=== PATIENT | female | born 1980 | race Caucasian/White ===

== ENCOUNTER 2022-03-23 16:20 | Emergency (ER) | payer OTHER, SELFPAY ==
[2022-03-23 16:29] VITALS: BP 125/88; PULSE 103; RESP 18; TEMP 36.6; O2SAT 98; BMI 29.1
--- NOTE | 2022-03-23 16:50 | ED.GENADULT ---
HPI - General Adult General Chief complaint: Nausea/Vomiting Stated complaint: Vomiting for 24 hours,Severe Headache Time Seen by Provider: 03/23/22 16:22 History of Present Illness HPI narrative: This 42-year-old female comes in with vomiting and headache symptoms that began about a day ago. She states that she has an occasional headache. She is not sure if the vomiting cause the headache or vice versa. She denies having any fevers or diarrhea. She is otherwise in good health. Related Data Home Medications Medication Instructions Recorded Confirmed fluoxetine 20 mg capsule 20 - 40 mg PO QDAY 11/06/21 02/21/22 levothyroxine 50 mcg capsule 50 mcg PO QDAY 11/06/21 02/21/22 Previous Rx's Medication Instructions Recorded ketoconazole 2 % topical cream 1 applic topical BID #60 grams 02/21/22 spironolactone 50 mg tablet 50 mg PO BID #60 tabs 02/21/22 Allergies Allergy/AdvReac Type Severity Reaction Status Date / Time zolpidem Allergy Mild Makes her Verified 02/21/22 11:59 porfirio Review of Systems Status of ROS: Reports: 10 or more systems reviewed and unremarkable except as noted in History and below Narrative: Constitutional: No fevers, no weight gain or loss. Eyes: No discharge. No vision changes. HENT: No congestion, no sore throat, no ear pain. Cardiovascular: No chest pain, no palpitations. Respiratory: No shortness of breath, no wheezes, no cough. Gastrointestinal: No abdominal pain, no diarrhea. Nausea and vomiting. Genitourinary: No dysuria, no hematuria. Musculoskeletal: Normal range of motion. Skin: No rashes, no pruritis. Neurological: No dizziness, weakness, sensory change, speech change. Endo/Heme/Allergies: No bruising or bleeding. No polydipsia. Pysch: no suicidality, no anxiety, no insomnia. All other systems reviewed and are negative. [facility] Medical History (Updated 03/23/22 @ 19:07 by Jayden Jameson MD) Onychomycosis Tick bite Social History Smoking Status: Never smoker Exam Narrative: Exam Narrative: Constitutional: Well-developed, well-nourished. HEENT: Normocephalic, atraumatic. Neck: Normal range of motion. Nontender. Supple. Heart: Regular. No murmurs. Normal rate. Intact distal pulses. Lungs: Clear to auscultation. No chest discomfort. No wheezes, rhonchi, or rales. Abdomen: Normal bowel sounds. Nontender. No rebound tenderness. Genitalia: Deferred. Back: No midline tenderness. Normal range of motion. Extremities: Normal range of motion. No injury. Skin: Intact. No rash. Warm. No erythema or pallor. Neurologic: No altered sensation. No weakness. Alert and oriented. Psychiatric: No suicidality. No anxiety or depression. No insomnia. Nursing notes and vitals signs are reviewed. Const: Vital Signs, click to edit/add: Vital Signs - 24 hr 03/23/22 16:29 03/23/22 18:38 Temperature 97.8 F Pulse Rate [Right Pulse Oximeter] 103 H 97 Respiratory Rate 18 18 Blood Pressure [Ri ght Upper Arm] 125/88 126/82 Pulse Oximetry 98 97 Oxygen Delivery Me thod Room Air Course Vital Signs Vital signs: Initial Vital Signs Temperature 97.8 F 03/23/22 16:29 Temperature Source Temporal Artery Scan 03/23/22 16:29 Pulse Rate 103 H 03/23/22 16:29 Respiratory Rate 18 03/23/22 16:29 Blood Pressure 125/88 03/23/22 16:29 Blood Pressure Mean 100 03/23/22 16:29 Blood Pressure Position Sitting 03/23/22 16:29 Pulse Oximetry 98 03/23/22 16:29 Oxygen Delivery Method 03/23/22 16:29 Vital Signs Temperature 97.8 F 03/23/22 16:29 Pulse Rate 103 H 03/23/22 16:29 Respiratory Rate 18 03/23/22 16:29 Blood Pressure 125/88 03/23/22 16:29 Pulse Oximetry 98 03/23/22 16:29 Oxygen Delivery Method 03/23/22 16:29 Temperature 97.8 F 03/23/22 16:29 Pulse Rate 97 03/23/22 18:38 Respiratory Rate 18 03/23/22 18:38 Blood Pressure 126/82 03/23/22 18:38 Pulse Oximetry 97 03/23/22 18:38 Oxygen Delivery Method 03/23/22 16:29 Medical Decision Making MDM Narrative Medical decision making narrative: This patient comes in with headache, nausea, and vomiting. An IV was established where she received a L of normal saline along with Zofran 4 mg, Benadryl 50 mg, and Toradol 30 mg. This brought sufficient relief to her nausea but she continued to have significant headache. She then received ketamine 20 mg infused over 20-30 minutes. This brought better relief of her headache. She feels okay to return home. Prescriptions for Toradol and Zofran are provided. Discharge Plan Discharge Clinical Impression: Migraine Patient Disposition: Home, Self-Care Condition: Improved Additional Instructions: Take medication as prescribed and needed. Follow up with MD or return if worsening. Prescriptions: No Action levothyroxine 50 mcg capsule 50 mcg PO QDAY spironolactone 50 mg tablet 50 mg PO BID Qty: 60 9RF ketoconazole 2 % cream 1 applic topical BID Qty: 60 2RF fluoxetine 20 mg capsule 20 - 40 mg PO QDAY Label Comments: not taking Follow Up/Referrals: Medardo Graf MD [Primary Care Provider] - Stand Alone Forms: [employer] Info Instructions
[2022-03-23] MEDS: ONDANSETRON 2 MG/ML inj 4 MG IVP (17:07)
[2022-03-23] MEDS: diphenhydrAMINE 50 MG/ML inj IVP (17:08)
[2022-03-23] MEDS: 0.9 % SODIUM CHLORIDE 1000 ml 1,000 ML IV (17:14)
--- OUTSIDE RECORDS SUMMARY | 2022-03-23 17:24 | XMS_ITS | Encounter Summary ---
:1980 Author Organization [facility] Address [address] [place] [address] Care Team Providers Name Role Phone Medardo Graf Primary Care Provider Noelle Khan MD Unavailable [phone] Umu Duke MD Unavailable Umu Duke MD Unavailable Encounter Details Date Type Department Care Team Description 06/02/2021 Travel Social History Tobacco Use Types Packs/Day Years Used Date Smoking Tobacco: Never Smokeless Tobacco: Never Alcohol Use Standard Drinks/Week Comments Yes 0 (1 standard drink = 0.6 oz pure alcoho l) 2 week Alcohol Habits Answer Date Recorded How often do you have a drink containing alcohol? 2-4 times a month 04/21/2019 How many drinks containing alcohol do you have on a 1 or 2 04/21/2019 typical day when you are drinking? How often do you have six or more drinks on one Not asked occasion? Sex Assigned at Date Recorded Not on file COVID-19 Exposure Response Date Recorded In the last month, have you been in contact with No / Unsure 06/02/2021 9:04 AM RECEIVING AND PROCESSING SUPERVISOR someone who was confirmed or suspected to have Coronavirus / COVID-19? documented as of this encounter Plan of Treatment Not on filedocumented as of this encounter Visit Diagnoses Not on filedocumented in this encounter Additional Health Concerns Assessment Noted Time PHQ-9 Depression Total Score: 2 06/01/2020 1:03 PM RECEIVING AND PROCESSING SUPERVISOR documented as of this encounter Care Teams Monument Setter Relationship Specialty Start Date End Date HomarMedardo PCP - General Family Practice 11/15/18 [facility] [address] [place] [address] Noelle Khan Assigned Pulmonology 02/04/20 MD Yumiko Provider [facility] [address] [place], [place] [address] Umu Duke MD MD ticket attendant 03/16/[address] [place], [place] [address] Umu Duke MD Assigned OBGYN Provider 06/04/20 02/01/[address] [place], [place] [phone] documented as of this encounter
--- OUTSIDE RECORDS SUMMARY | 2022-03-23 17:24 | XMS_ITS | Clinical Summary ---
:1980 Author Organization [facility] Address [address] [place] [address] Care Team Providers Name Role Phone Medardo Graf Primary Care Provider Umu Duke MD Unavailable Allergies Active Allergy Reactions Severity Noted Date Comments Zolpidem Tartrate 04/17/2011 blacks ou t but doesn't fall asleep Medications Medication Sig Dispensed Refills Start Date End Date Status valACYclovir (VALTREX) 0 12/29/2017 Active 500 MG tablet levothyroxine 50 mcg daily 0 04/09/2019 Ac tive (SYNTHROID/LEVOTHROID) 50 MCG tablet norgestrel-ethinyl Take 1 tablet by 0 03/15/2020 Active estradiol (LO/OVRAL) mouth 0.3-30 MG-MCG tablet Active Problems Problem Noted Date Submucous leiomyoma of uterus 06/15/2020 Overview: Added automatically from request for hector acosta [id number] Vaginal delivery 04/28/2012 Labor and delivery, indication for care 04/25/2012 Uterine contractions or other obstetric complaints Head ache 11/04/2011 Immunizations Name Administration Dates Next Due Influenza (intradermal) 11/21/2017 Td (Adult), Adsorbed 04/12/2004 Family History Medical History Relation Comments Lung Cancer Cousin Heart Disease Father Leukemia Maternal Aunt Relation Status Comments Cousin Father Alive Maternal Aunt Mother Alive Social History Tobacco Use Types Packs/Day Years [...] Assigned at Date Recorded Not on file Last Filed Vital Signs Vital Sign Reading Time Taken Comments Blood Pressure 128/80 11/05/2021 11:50 AM CDT Pulse 64 11/05/2021 11:50 AM CDT Temperature 36.8 ??C (98.3 ??F) 11/05/2021 11:50 AM CDT Respiratory Rate 16 11/05/2021 11:50 AM CDT Oxygen Saturation 99% 11/05/2021 11:50 AM CDT Inhaled Oxygen Concentration - - Weight 85.9 kg (189 lb 6.4 oz) 11/05/2021 11:50 AM CDT Height 165.1 cm (5' 5) 02/28/2021 2:12 PM [employer] Body Mass Index 31.52 02/28/2021 2:12 PM [employer] Plan of Treatment Health Maintenance Due Date Last Done Comments ADVANCE CARE PLANNING 1980 ANNUAL REVIEW OF HM ORDERS 1980 HEPATITIS C SCREENING 1996 COVID-19 Vaccine (3 - 07/27/2020 06/01/2020, 05/07/2020 Booster for Moderna series) YEARLY PREVENTIVE VISIT 02/28/2021 02/29/2020, 02/29/2020 PHQ-2 (once per calendar 04/14/2021 06/01/2020, 06/01/2020, year) 05/12/2020, Additional history exists INFLUENZA VACCINE (#1) 2021 01/22/2021, 01/22/2021, 12/27/2019, Additional history exists PAP 02/28/2023 02/29/2020 DTAP/TDAP/TD IMMUNIZATION 03/26/2030 03/26/2020, 03/03/2010 , (5 - Td or Tdap) 10/02/2008, Additional history exists HEPATITIS B IMMUNIZATION Completed 10/02/2008, 02/09/2008, 01/01/2008 HIV SCREENING Completed 09/23/2011 MENINGITIS IMMUNIZATION Aged Out 03/26/2020, 03/25/2015, No longer eligible 03/03/2010, Additional based on patient's age history exists to complete this topic IPV IMMUNIZATION Aged Out No longer eligi ble based on patient 's age to complete this topic Pneumococcal Vaccine: Aged Out No longer eligible Pediatrics (0 to 5 Years) based on patient's age and At-Risk Patients (6 to to co mplete this topic 64 Years) Insurance Payer Benefit Plan / Subscriber ID Effective Phone Address T ype Group Dates [facility] [id number] 2021-Pres [phone] [address] O OPEN ACCESS ent [address] [place] [address] Care Teams Loan Services Professional Relationship Specialty Start Date End Date Medardo Graf PCP - General Family Practice 11/15/18 [facility] [place] [facility] [address] [place] [address] Umu Duke MD MD director report 03/16/[address] [place] [address] [address] [place] [address]
--- OUTSIDE RECORDS SUMMARY | 2022-03-23 17:24 | XMS_ITS | Encounter Summary ---
:1980 Author Organization [facility] Address [facility] [place] [address] Care Team Providers Name Role Phone Medardo Graf Primary Care Provider Noelle Khan MD Unavailable [phone] Umu Duke MD Unavailable Umu Duke MD Unavailable Reason for Visit Reason Comments Wound Infection Left arm Encounter Details Date Type Department Care Team Description 11/05/2021 Office Visit [facility] Adelaida Leonard Local in fection of Urgent Care Agustina owens PA-C wound (Primary Dx) [address] [place] [place] [facility] [phone] [facility] [phone] [place] [address] Social History Tobacco Use Types Packs/Day Years [...] Exposure Response Date Recorded In the last 10 days, have you been in contact with No / Unsu re 11/05/2021 11:39 AM CDT someone who was confirmed or suspected to have Coronavirus/COVID-19? documented as of this encounter Last Filed Vital Signs Vital Sign Reading Time Taken Comments Blood Pressure 128/80 11/05/2021 11:50 AM CDT Pulse 64 11/05/2021 11:50 AM CDT Temperature 36.8 ??C (98.3 ??F) 11/05/2021 11:50 AM CDT Respiratory Rate 16 11/05/2021 11:50 AM CDT Oxygen Saturation 99% 11/05/2021 11:50 AM CDT Inhaled Oxygen Concentration - - Weight 85.9 kg (189 lb 6.4 oz) 11/05/2021 11:50 AM CDT Height - - Body Mass Index 31.52 02/28/2021 2:[address] documented in this encounter Patient Instructions Patient InstructionsAlAdelaida lakhani PA-C - 11/05/2021 11:45 AM CDT Patient was educated on the natural course of injury. Keep wound dry and clean. Wash area with soap and water. Watch for signs of infection such as redness or purulent drainage. Conservative measures discussed including [id number] Tylenol as needed for pain. See your primary care provider in 5 days if there is no improvement or sooner as needed. Seek emergency care if you develop fever, streaking, severe pain or rapidly spreading redness. documented in this encounter Progress Notes Adelaida Leonard PA-C - 11/05/2021 11:45 AM CDT Images from the original note were not included. URGENT CARE VISIT: SUBJECTIVE: Chief Complaint Patient presents with ??? Wound Infection Left arm Lacey Nolasco is a 41 year old female who presents with a chief complaint of left arm cut. Symptoms began 4 day(s) ago, are moderate and worsening She cut it with a water pressure hose. It is now getting red and painful. Pain exacerbated by movement. Relieved by rest. She treated it initially with soap and water. This is the first time this type of injury has occurred to this patient. PMH: Past Medical History: Diagnosis Date ??? Complication of anesthesia severe nausea ??? Endometriosis ??? Hx of previous reproductive problem used clomid with ??? Hypothyroidism ??? PONV (postoperative nausea and vomiting) Allergies: Ambien [zolpidem tartrate] Medications: Current Outpatient Medications Medication Sig Dispense Refill ??? cephALEXin (KEFLEX) 500 MG capsule Take 1 capsule (500 mg) by mouth 3 times daily for 7 days 21 capsule 0 ??? fluconazole (DIFLUCAN) 150 MG tablet Take 1 tablet (150 mg) by mouth once for 1 dose 1 tablet 0 ??? levothyroxine (SYNTHROID/LEVOTHROID) 50 MCG tablet 50 mcg daily ??? norgestrel-ethinyl estradiol (LO/OVRAL) 0.3-30 MG-MCG tablet Take 1 tablet by mouth ??? valACYclovir (VALTREX) 500 MG tablet Social History: Social History Tobacco Use ??? Smoking status: Never Smoker ??? Smokeless tobacco: Never Used Substance Use Topics ??? Alcohol use: Yes Comment: 2 week ROS: Review of systems negative except as stated above. OBJECTIVE: BP 128/80 (BP Location: Right arm, Patient Position: Chair, Cuff Size: Adult Regular) Pulse 64 Temp 98.3 ??F (36.8 ??C) (Oral) Resp 16 Wt 85.9 kg (189 lb 6.4 oz) SpO2 99% No BMI 31.52 kg/m?? GENERAL APPEARANCE: healthy, alert and no distress MUSCULOSKELETAL: moderate TTP over left wrist over wound site. EXTREMITIES: peripheral pulses normal SKIN: 3 cm linear superficial healing wound with 1 cm of surrounding erythema and edema NEURO: sensation intact. ASSESSMENT: ICD-10-CM 1. Local infection of wound T14.8XXA cephALEXin (KEFLEX) 500 MG capsule L08.9 fluconazole (DIFLUCAN) 150 MG tablet PLAN: Patient Instructions Patient was educated on the natural course of injury. Keep wound dry and clean. Wash area with soap and water. Watch for signs of infection such as redness or purulent drainage. Conservative measures discussed including [id number] Tylenol as needed for pain. See your primary care provider in 5 days if there is no improvement or sooner as needed. Seek emergency care if you develop fever, streaking, severe pain or rapidly spreading redness. Patient verbalized understanding and is agreeable to plan. The patient was discharged ambulatory andin stable condition. Adelaida Leonard PA-C on 11/05/2021 at 12:08 PM documented in this encounter Plan of Treatment Not on filedocumented as of this encounter Visit Diagnoses Diagnosis Local infection of wound - Primary Posttraumatic wound infection not elsewh ere classified documented in this encounter Additional Health Concerns Assessment Noted Time PHQ-9 Depression Total Score: 2 06/01/2020 1:[address] MAN documented as of this encounter Care Teams Forest Manager Relationship Specialty Start Date End Date Medardo Graf PCP - General Family Practice 11/15/18 [facility] [address] [place] [address] Noelle Khan Assigned Pulmonology 02/04/20 MD Yumiko Provider [facility] [address] [place] [address] Umu Duke MD MD top dyeing machine loader 03/16/[address] [place] [id number] Umu Duke MD Assigned OBGYN Provider 06/04/20 02/01/[address] [place] [address] [address] [place], [place] [id number] documented as of this encounter
--- OUTSIDE RECORDS SUMMARY | 2022-03-23 17:24 | XMS_ITS | Encounter Summary ---
:1980 Author Organization [facility] Address [address] [place] [address] Care Team Providers Name Role Phone Medardo Graf Primary Care Provider Noelle Khan MD Unavailable [phone] Umu Duke MD Unavailable Umu Duke MD Unavailable Encounter Details Date Type Department Care Team Description 11/05/2021 Travel Social History Tobacco Use Types Packs/Day [...] have Coronavirus/COVID-19? documented as of this encounter Plan of Treatment Not on filedocumented as of this encounter Visit Diagnoses Not on filedocumented in this encounter Additional Health Concerns Assessment Noted Time PHQ-9 Depression Total Score: 2 06/01/2020 1:03 PM WAIT STAFF documented as of this encounter Care Teams Information Clerk Relationship Specialty Start Date End Date JaylawandaMedardo PCP - General Family Practice 11/15/18 [facility] [address] [place] [address] Noelle Khan Assigned Pulmonology 02/04/20 MD Yumiko Provider [facility] [address] [place], [place] [address] Umu Duke MD MD cloud services architect 03/16/[address] [place], [place] [address] Umu Duke MD Assigned OBGYN Provider 06/04/20 02/01/[address] [place], [place] [address] documented as of this encounter
--- OUTSIDE RECORDS SUMMARY | 2022-03-23 17:24 | XMS_ITS | Encounter Summary ---
:1980 Author Organization [facility] Address [address] [place] [address] Care Team Providers Name Role Phone Medardo Graf Primary Care Provider Noelle Khan MD Unavailable [phone] Umu Duke MD Unavailable Umu Duke MD Unavailable Encounter Details Date Type Department Care Team Description 02/28/2021 Documentation Only INTERFACED REPORT Unknown, Provider Social History Tobacco Use Types Packs/Day Years [...] been in contact with No / Unsure 02/28/2021 2:08 PM RN PROGRESSIVE CARE UNIT someone who was confirmed or suspected to have Coronavirus / COVID-19? documented as of this encounter Plan of Treatment Not on filedocumented as of this encounter Visit Diagnoses Not on filedocumented in this encounter Additional Health Concerns Infection Onset Date Last Indicated Resolved Time Influenza 04/04/2021 04/04/2021 04/11/2021 11:41 PM RN [facility] UN[facility] Assessment Noted Time PHQ-9 Depression Total Score: 2 06/01/2020 1:03 PM RN PRO[facility]ARE UNIT documented as of this encounter Care Teams Litigation Examiner Relationship Specialty Start Date End Date Homar Medardo PCP - General Family Practice 11/15/18 [facility] [address] [place] [address] Noelle Khan Assigned Pulmonology 02/04/20 MD Yumiko Provider [facility] [address] [place], [place] [address] Umu Duke MD MD asbestos cloth inspector 03/16/[address] [place], [place] [address] Umu Duke MD Assigned OBGYN Provider 06/04/20 02/01/[address] [place], [place] [id number] documented as of this encounter
--- OUTSIDE RECORDS SUMMARY | 2022-03-23 17:24 | XMS_ITS | Encounter Summary ---
:1980 Author Organization [place] Address [facility] [place] [address] Care Team Providers Name Role Phone Medardo Graf Primary Care Provider Noelle Khan MD Unavailable [phone] Umu Duke MD Unavailable Umu Duke MD Unavailable Reason for Visit Reason Comments Urgent Care Sx ongoing for Two Weeks - W orsening - Covid in February Sinus Problem Mild Facial Pain - PND with Cough Present - Temporal [place] Shortness of Breath Mild Wheezing - Fatigued Upo n Exertion - Wants lungs Assessed Encounter Details Date Type Department Care Team Description 04/04/2021 Office Visit [facility] Jannette Strange Acute sin usitis with symptoms > 10 days (Primary Dx); Urgent Care Agustina Perez PA-C Influenza B; [address] Antibiotic-induced yeast infection; [place], [place] Cough [id number] Social History Tobacco Use Types Packs/Day Years [...] been in contact with No / Unsure 04/04/2021 12:44 PM POST GRADUATE INTERN someone who was confirmed or suspected to have Coronavirus / COVID-19? documented as of this encounter Last Filed Vital Signs Vital Sign Reading Time Taken Comments Blood Pressure 108/78 04/04/2021 1:20 PM POST GRADUATE INTERN Pulse 76 04/04/2021 1:20 PM POST GRADUATE INTERN Temperature 37.3 ??C (99.1 ??F) 04/04/2021 1:20 PM POST GRADUATE INTERN Respiratory Rate 16 04/04/2021 1:20 PM POST GRADUATE INTERN Oxygen Saturation 99% 04/04/2021 1:20 PM POST GRADUATE INTERN Inhaled Oxygen - - Concentration Weight 81.6 kg (180 lb) 04/04/2021 1:20 PM Reported by Patient POST GRADUATE INTERN Height - - Body Mass Index 29.95 02/28/2021 2:12 PM POST GRADUATE INTERN documented in this encounter Patient Instructions Patient InstructionsJannette Strange PA-C - 04/04/2021 1:00 PM POST GRADUATE INTERN Images from the original note were not included. Patient Education Sinusitis (Antibiotic Treatment) The sinuses are air-filled spaces within the bones of the face. They connect to the inside of the nose.??Sinusitis??is an inflammation of the tissue that lines the sinuses. Sinusitis can occur during acold. It can also happen due to allergies to pollens and other particles in the air. Sinusitis can cause symptoms of sinus congestion and a feeling of fullness. A sinus infection causes fever, headache, and facial pain. There is often green or yellow fluid draining from the nose or into the back of the throat (post-nasal drip). You have been given antibiotics to treat this condition. Home care ?? Take the full course of antibiotics as instructed. Don't stop taking them, even when you feel better. ?? Drink plenty of water, hot tea, and other liquids as directed by the healthcare provider. This may help thin nasal mucus. It also may help your sinuses drain fluids. ?? Heat may help soothe painful areas of your face. Use a towel soaked in hot water. Or, television antenna installer the shower and direct the warm spray onto your face. Using a vaporizer along with a menthol rub at night may also help soothe symptoms.? An??expectorant??with guaifenesin may help thin nasal mucus and help your sinuses drain fluids. Talk with your provider or pharmacists before taking an mnck-icu-lfnimyd (OTC) medicine if you have any questions about it or its side effects.. ?? You can use an OTC??decongestant,??unless a similar medicine was prescribed to you. Nasal sprays work the fastest. Use one that contains phenylephrine or oxymetazoline. First blow your nose gently. Then use the spray. Don't use these medicines more often than directed on the label. If you do, your symptoms may get worse. You may also take pills that contain pseudoephedrine. Don???t use products that combine multiple medicines. This is because side effects may be increased. Read labels. You can also ask the pharmacist for help. (People with high blood pressure should not use decongestants. They can raise blood pressure.) Talk with your provider or pharmacist if you have any questions about the medicine.. ?? OTC??antihistamines??may help if allergies contributed to your sinusitis. Talk with your provideror pharmacist if you have any questions about the medicine.. ?? Don't use nasal rinses or irrigation during an acute sinus infection, unless your healthcare provider tells you to. Rinsing may spread the infection to other areas in your sinuses. ?? Use acetaminophen or ibuprofen to control pain, unless another pain medicine was prescribed to you. If you have chronic liver or kidney disease or ever had a stomach ulcer, talk with your healthcareprovider before using these medicines. Never give aspirin to anyone under age 18 who is ill with a fever. It may cause severe liver damage. ?? Don't smoke. This can make symptoms worse. Follow-up care Follow up with your healthcare provider, or as advised. When to seek medical advice Call your healthcare provider if any of these occur: ?? Facial pain or headache that gets worse ?? Stiff neck ?? Unusual drowsiness or confusion ?? Swelling of your forehead or eyelids ?? Symptoms don't go away in 10 days ?? Vision problems, such as blurred or double vision ?? Fever of??100.4??F (38??C)??or higher, or as directed by your healthcare provider Call 911 Call 911 if any of these occur: ?? Seizure ?? Trouble breathing ?? Feeling dizzy or faint ?? Fingernails, skin or lips look blue, purple , or lopez Prevention Here are steps you can take to help prevent an infection: ?? Keep good hand washing habits. ?? Don???t have close contact with people who have sore throats, colds, or other upper respiratory infections. ?? Don???t smoke, and stay away from secondhand smoke. ?? Stay up to date with of your vaccines. Eva last reviewed this educational content on 03/14/2019 ?? [id number] [employer]. All rights reserved. This information is not intended as a substitute for professional medical care. Always follow your healthcare professional's instructions. Patient Education Influenza (Adult) Influenza is also called the flu. It's a viral illness that affects the air passages of your lungs. It's different from the common cold. The flu can easily be passed from one to person to another. It may be spread through the air by coughing and sneezing. Or it can be spread by touching the sick person and then touching your own eyes, nose, or mouth. The flu starts 1 to 3 days after you are exposed to the flu virus. It may last??for 1 to 2 weeks butsometimes people feel tired or fatigued for many weeks afterward. You usually don???t need to take antibiotics unless you are at high risk for or have a complication . This might be an ear or sinus infection or pneumonia. Symptoms of the flu may be mild or severe. They can include extreme tiredness (wanting to stay in bed all day), chills, fevers, muscle aches, soreness with eye movement, headache, and a dry, hacking cough. Antiviral medicine for the flu is available by prescription. If you start taking it within 48 hours,it may help reduce how long your symptoms last and how severe they are. Your provider may do a test to find out if you have influenza and which strain you have. Home care Follow these guidelines when caring for yourself at home: ?? Stay away from cigarette smoke, whether yours or other people???s. ?? Acetaminophen or ibuprofen will help ease your fever, muscle aches, and headache. Don???t give aspirin to anyone younger than 18 who has the flu. This can cause a serious condition called Christa syndrome. ?? Nausea, loose stools, and loss of appetite are common with the flu. Eat light meals. Drink 6 to 8glasses of liquids every day. Good choices are water, sport drinks, soft drinks without caffeine, juices, tea, and soup. Extra fluids will also help loosen secretions in your nose and lungs. ?? Qcvc-qen-immjrpf cold medicines will not make the flu go away faster. But the medicines may help with coughing, sore throat, and congestion in your nose and sinuses. Don???t use a decongestant if you have high blood pressure. ?? Stay home until your fever has been gone for at least 24 hours without using medicine to reduce fever. Follow-up care Follow up with your healthcare provider, or as advised, if you are not getting better over the next week. If you are age 65 or older, talk with your provider about getting a pneumococcal vaccine every 5 years. You should also get this vaccine if you have chronic asthma or COPD. All adults should get a flu vaccine every fall. Ask your provider about this. When to seek medical advice Call your healthcare provider right away if you have the flu and any of these occur: ?? Cough with lots of colored mucus (sputum) or blood in your mucus ?? Chest pain, shortness of breath, wheezing, or trouble breathing ?? Severe headache, or face, neck, or ear pain ?? New rash??with fever ?? Fever of 100.4??F (38??C)??or higher, or as??directed by your healthcare provider ?? Confusion, behavior change, or seizure ?? Severe weakness or dizziness ?? You get a new??fever or cough after getting better for a few days Also call your provider if you have flu symptoms and have a weakened immune system or are taking medicines that can weaken your immune system. These include steroids and certain anti-inflammatory medicines. Eva last reviewed this educational content on 01/12/2019 ?? [id number] [employer]. All rights reserved. This information is not intended as a substitute for professional medical care. Always follow your healthcare professional's instructions. GRADUATE INTERN documented in this encounter Progress Notes Jannette Strange PA-C - 04/04/2021 1:00 PM CST Assessment & Plan Acute sinusitis with symptoms > 10 days Augmentin Rx. Tylenol or motrin prn headache . Follow up if any worsening symptoms. Patient agrees. - amoxicillin-clavulanate (AUGMENTIN) 875-125 MG tablet Dispense: 20 tablet; Refill: 0 Influenza B Symptoms ongoing for more than 24-36 hrs. Tamiflu not indicated at this time. Supportive care measures advised. Keep monitoring symptoms. Follow-up if any worsening symptoms. Patient agrees with the plan. Antibiotic-induced yeast infection Patient gets yeast infection following taking antibiotic. Diflucan is prescribed today. Follow-up ifany worsening symptoms. She agrees. - fluconazole (DIFLUCAN) 150 MG tablet Dispense: 1 tablet; Refill: 0 Cough Lungs are clear on exam. She is in no acute distress. Vitals are reassuring. Supportive care measures advised. Keep monitoring symptoms. Follow-up if any worsening symptoms. Patient agrees with the plan. - Influenza A/B antigen Return in about 10 days (around 04/14/2021) for Symptoms failing to improve. Jannette Strange PA-C [facility] Izabela Rahman is a 41 year old female who presents to clinic today for the following health issues: Chief Complaint Patient presents with ??? Urgent Care Sx ongoing for Two Weeks - Worsening - Covid in February ??? Sinus Problem Mild Facial Pain - PND with Cough Present - Temporal [place] ??? Shortness of Breath Mild Wheezing - Fatigued Upon Exertion - Wants lungs Assessed HPI URI Adult Onset of symptoms was 2 week(s) ago. Course of illness is worsening. Severity moderate Current and Associated symptoms: Sinus pressure and pain, chest tightness, postnasal drip, cough, low-grade fever in the past 3 to 4 days, fatigue Denies: SOB or CP Treatment measures tried include Tylenol/Ibuprofen. Predisposing factors include None. Patient reports she had Covid in February. Review of Systems Constitutional, HEENT, cardiovascular, pulmonary, GI, , musculoskeletal, neuro, skin, endocrine and psych systems are negative, except as otherwise noted. Objective BP 108/78 (BP Location: Right arm, Patient Position: Chair, Cuff Size: Adult Large) Pulse 76 Temp 99.1 ??F (37.3 ??C) (Tympanic) Resp 16 Wt 81.6 kg (180 lb) SpO2 99% BMI 29.95 kg/m?? Physical Exam GENERAL: healthy, alert and no distress HENT: ear canals and TM's normal, nasal passages with boggy turbinates, maxillary sinuses are tenderto percussion, mouth without ulcers or lesions RESP: lungs clear to auscultation - no rales, rhonchi or wheezes CV: regular rate and rhythm, normal S1 S2 MS: no gross musculoskeletal defects noted, no edema SKIN: no suspicious lesions or rashes Results for orders placed or performed in visit on 04/04/21 (from the past 24 hour(s)) Influenza A/B antigen Specimen: Nasopharyngeal; Swab Result Value Ref Range Influenza A antigen Negative Negative Influenza B antigen Positive (A) Negative Narrative Test results must be correlated with clinical data. If necessary, results should be confirmed by a molecular assay or viral culture. GRADUATE INTERN documented in this encounter Plan of Treatment Not on filedocumented as of this encounter Procedures Procedure Name Priority Date/Time Associated Diagnosis Comme nts INFLUENZA A/B Routine 04/04/2021 1:17 PM Cough Results for this ANTIGEN POST GRADUATE INTERN procedure are i n the results section. documented in this encounter Results (ABNORMAL) Influenza A/B antigen (04/04/2021 1:17 PM POST GRADUATE INTERN) [facility] Method Time Signature Influenza A Negative Negative 04/04/2021 [facility] antigen 2:01 PM POST GRADUATE INTERN Influenza B Positive (A) Negative 04/04/2021 [facility] antigen 2:01 PM POST GRADUATE INTERN Specimen Anatomical Location / Collection Method Collection Dedrick e Received Time (Source) Laterality / Volume Swab NASOPHARYNGEAL Non-blood 04/04/2021 1:17 04/04/2021 1:39 STRUCTURE / Unknown Collection / PM POST GRADUATE INTERN PM POST GRADUATE INTERN Unknown Narrative LABORATORY - 04/04/2021 2:01 PM POST GRADUATE INTERN Test results must be correlated with cli nical data. If necessary, results should be confirmed by a molecular assay or viral culture. Jannette Strange PA-C LAB - MICRO GENERAL ORDERABL ES Performing Organization Address City/State/ZIP Code Phon e Number LABORATORY [facility] [place] [address] Lab [address] [facility] Lab (no room number, 1st floor of clinic) [place] [address], [facility] [address] [facility] Lab (no room number, 1st floor of clinic) documented in this encounter Visit Diagnoses Diagnosis Acute sinusitis with symptoms > 10 days - Primary Acute sinusitis, unspecified Influenza B Influenza with other respiratory manifes tations Antibiotic-induced yeast infection Cough documented in this encounter Additional Health Concerns Assessment Noted Time PHQ-9 Depression Total Score: 2 06/01/2020 1:03 PM POST GRADUATE INTERN documented as of this encounter Care Teams Manager Private Relationship Specialty Start Date End Date Medardo Graf PCP - General Family Practice 11/15/18 [facility] [address] [place] [address] Noelle Khan Assigned Pulmonology 02/04/20 MD Yumiko Provider [facility] [address] [place], [place] [address] Umu Duke MD MD snake charmer 03/16/[address] [place], [place] [address] Umu Duke MD Assigned OBGYN Provider 06/04/20 02/01/[address] [place], [place] [id number] documented as of this encounter
--- OUTSIDE RECORDS SUMMARY | 2022-03-23 17:24 | XMS_ITS | Encounter Summary ---
:1980 Author Organization [place] Address [address] [place] [id number] Care Team Providers Name Role Phone Medardo Graf Primary Care Provider Noelle Khan MD Unavailable [phone] Umu Duke MD Unavailable Umu Duke MD Unavailable Encounter Details Date Type Department Care Team Description 05/22/2021 Travel Social History Tobacco Use Types Packs/Day [...] last month, have you been in contact Unable to assess 05/22/2021 11:15 AM NATIONAL BUSINESS DIRECTOR with someone who was confirmed or suspected to have Coronavirus / COVID-19? documented as of this encounter Plan of Treatment Not on filedocumented as of this encounter Visit Diagnoses Not on filedocumented in this encounter Additional Health Concerns Assessment Noted Time PHQ-9 Depression Total Score: 2 06/01/2020 1:03 PM NATIONAL BUSINESS DIRECTOR documented as of this encounter Care Teams Ostrich Farmer Relationship Specialty Start Date End Date JaylawandaMedardo PCP - General Family Practice 11/15/18 [facility] [address] [place] [address] Noelle Khan Assigned Pulmonology 02/04/20 MD Yumiko Provider [facility] [address] [place], [place] [address] Umu Duke MD MD security and compliance analyst 03/16/[address] [place], [place] [phone] Umu Duke MD Assigned OBGYN Provider 06/04/20 02/01/[address] [place], [place] [address] documented as of this encounter
--- OUTSIDE RECORDS SUMMARY | 2022-03-23 17:24 | XMS_ITS | Encounter Summary ---
:1980 Author Organization [place] Address [address] [place] [address] Care Team Providers Name Role Phone Medardo Graf Primary Care Provider Noelle Khan MD Unavailable [phone] Umu Duke MD Unavailable Umu Duke MD Unavailable Encounter Details Date Type Department Care Team Description 04/04/2021 Travel Social History Tobacco Use Types Packs/Day [...] with No / Unsure 04/04/2021 12:44 PM FENCE POST DRIVER someone who was confirmed or suspected to have Coronavirus / COVID-19? documented as of this encounter Plan of Treatment Not on filedocumented as of this encounter Visit Diagnoses Not on filedocumented in this encounter Additional Health Concerns Infection Onset Date Last Indicated Resolved Time Influenza 04/04/2021 04/04/2021 04/11/2021 11:41 PM FENCE POST DRIVER Assessment Noted Time PHQ-9 Depression Total Score: 2 06/01/2020 1:03 PM FENCE POST DRIVER documented as of this encounter Care Teams Director Mission Relationship Specialty Start Date End Date Medardo Graf PCP - General Family Practice 11/15/18 [facility] [address] [place] [address] Noelle Khan Assigned Pulmonology 02/04/20 MD Yumiko Provider [facility] [address] [place], [place] [phone] Umu Duke MD MD engine lathe set up operator 03/16/[address] [place] [address] [address] [place], [place] [phone] Umu Duke MD Assigned OBGYN Provider 06/04/20 02/01/[address] [place] [address] [address] [place], [place] [phone] documented as of this encounter
--- OUTSIDE RECORDS SUMMARY | 2022-03-23 17:24 | XMS_ITS | Encounter Summary ---
:1980 Author Organization [place] Address [address] [place] [address]. [place] [address] Care Team Providers Name Role Phone Medardo Graf Primary Care Provider Noelle Khan MD Unavailable [phone] Umu Duke MD Unavailable Umu Duke MD Unavailable Reason for Visit Reason Comments Urgent Care Ear Problem right ear pain Encounter Details Date Type Department Care Team Description 06/02/2021 Office Visit [facility] Jannette Strange Acute mid dle ear Urgent Care Agustina Perez PA-C effusion, right [address] (Primary Dx) [place] [address] [phone] Social History Tobacco Use Types Packs/Day Years [...] with No / Unsure 06/02/2021 9:04 AM CUT OFF MAN someone who was confirmed or suspected to have Coronavirus / COVID-19? documented as of this encounter Last Filed Vital Signs Vital Sign Reading Time Taken Comments Blood Pressure 100/64 06/02/2021 9:08 AM CUT OFF MAN Pulse 79 06/02/2021 9:08 AM CUT OFF MAN Temperature 36.7 ??C (98 ??F) 06/02/2021 9:08 AM CUT OFF MAN Respiratory Rate - - Oxygen Saturation 99% 06/02/2021 9:08 AM CUT OFF MAN Inhaled Oxygen Concentration - - Weight 79.4 kg (175 lb) 06/02/2021 9:08 AM CUT OFF MAN Height - - Body Mass Index 29.12 02/28/2021 2:12 PM CUT OFF MAN documented in this encounter Patient Instructions Patient InstructionsJannette Strange PA-C - 06/02/2021 9:05 AM CUT OFF MAN Images from the original note were not included. Please try Flonase nasal spray-- one spray each nostril daily for 10 days to help decrease inflammation in the eustachian tube and help promote drainage from the right ear drum. Patient Education Earache, No Infection (Adult)?? Earaches can happen without an infection. They can occur when air and fluid build up behind the eardrum. They may cause a feeling of fullness and discomfort. They may also impair hearing. This is called otitis media with effusion (OME) or serous otitis media. It means there is fluid in the middle ear.It is not the same as acute otitis media, which is often from an infection. OME can happen when you have a cold if congestion blocks the passage that drains the middle ear. This passage is called the eustachian tube. OME may also occur with nasal allergies or after a bacterialinfection in the middle ear. Other causes are: ?? Trauma ?? Improper cleaning of wax from the ear ?? Bacterial infection of the mastoid bone (mastoiditis) ?? Tumor ?? Jaw pain ?? Changes in pressure, such as from flying or scuba diving The pain or discomfort may come and go. You may hear clicking or popping sounds when you chew or swallow. You may feel that your balance is off. Or you may hear ringing in the ear. It often takes from several weeks up to 3 months for the fluid to clear on its own. Oral pain relievers and ear drops help if there is pain. Decongestants and antihistamines sometimes help. Antibioticsdon't help since there is no infection. Your healthcare provider may give you a nasal spray to help reduce swelling in the nose and eustachian tube. This can allow the ear to drain. If your OME doesn't get better after 3 months, surgery may be used to drain the fluid. A small tube may also be put in the eardrum to help with drainage. Because the middle ear fluid can become infected, watch for signs of an infection. These may developlater. They may include increased ear pain, fever, or drainage from the ear. Home care These home-care tips will help you take care of yourself: ?? You may use migb-gob-kvdqjiu medicine as directed by your healthcare provider to control pain, unless medicine was prescribed. If you have chronic liver or kidney disease or ever had a stomach ulceror GI bleeding, talk with your healthcare provider before using any medicines. ?? Aspirin should never be used in anyone younger than age 18 who has a fever. It may cause severe liver damage. ?? Ask your healthcare provider if you may use uouz-amx-rmkwwcy decongestants such as phenylephrine or pseudoephedrine. Keep in mind they are not always helpful. ?? Talk with your healthcare provider about using nasal spray decongestants. Don't use them for morethan 3 days, or as directed by your healthcare provider. Longer use can make congestion worse. Prescription nasal sprays from your healthcare provider don't often have such restrictions. ?? Antihistamines may help if you are also having allergy symptoms. ?? You may use medicines such as guaifenesin to thin mucus and help with drainage. Follow-up care Follow up with your healthcare provider or as advised if you are not feeling better after 3 days. When to seek medical advice Call your healthcare provider right away if any of these occur: ?? Ear pain that gets worse or that does not start to get better? Fever of 100.4??F (38??C) or higher, or as directed by your healthcare provider ?? Fluid or blood draining from the ear ?? Headache or sinus pain ?? Stiff neck ?? Unusual drowsiness or confusion [employer] last reviewed this educational content on 03/14/2019 ?? [id number] The [employer]. All rights reserved. This information is not intended as a substitute for professional medical care. Always follow your healthcare professional's instructions. OFF MAN documented in this encounter Progress Notes Jannette Strange PA-C - 06/02/2021 9:05 AM CST Assessment & Plan Acute middle ear effusion, right No evidence of acute otitis media on exam today. I have recommended Flonase nasal spray for the next7 to 10 days. Keep monitoring symptoms. Follow-up if any worsening symptoms. Patient agrees with theplan. Return in about 10 days (around 06/12/2021) for Symptoms failing to improve. Jannette Strange PA-C [facility] Izabela Rahman is a 41 year old female who presents to clinic today for the following health issues: Chief Complaint Patient presents with ??? Urgent Care ??? Ear Problem right ear pain HPI Patient is presenting to urgent care today with a complaint of right ear pain. Ongoing symptoms for the past several days. Patient notes she had Covid in April. Was treated for sinus/ear infection 2 to 3 weeks ago with doxycycline. Symptoms seem to be improving while she was on doxycycline. The right ear pain is back, it is not severe. No fevers or chills. She still has a slight cough. Reports somenasal congestion. No CP. No SOB. Review of Systems Constitutional, HEENT, cardiovascular, pulmonary, GI, , musculoskeletal, neuro, skin, endocrine and psych systems are negative, except as otherwise noted. Objective BP 100/64 (BP Location: Right arm) Pulse 79 Temp 98 ??F (36.7 ??C) (Tympanic) Wt 79.4 kg (175 lb) SpO2 99% BMI 29.12 kg/m?? Physical Exam GENERAL: healthy, alert and no distress HENT: left ear canal and TM normal, right ear canal is normal, right TM is normal, trace clear effusion behind right TM, mouth without ulcers or lesions RESP: lungs clear to auscultation - no rales, rhonchi or wheezes CV: regular rate and rhythm, normal S1 S2 MS: no gross musculoskeletal defects noted, no edema SKIN: no suspicious lesions or rashes OFF MAN documented in this encounter Plan of Treatment Not on filedocumented as of this encounter Visit Diagnoses Diagnosis Acute middle ear effusion, right - Prima ry documented in this encounter Additional Health Concerns Assessment Noted Time PHQ-9 Depression Total Score: 2 06/01/2020 1:03 PM CUT OFF MAN documented as of this encounter Care Teams Visual Merchandising Director Relationship Specialty Start Date End Date Medardo Graf PCP - General Family Practice 11/15/18 [facility] [address] [address] Noelle Khan Assigned Pulmonology 02/04/20 MD Yumiko Provider [facility] [address] [place] [address] Umu Duke MD MD material spreader 03/16/[address] [place] [address] [id number] Umu Duke MD Assigned OBGYN Provider 06/04/20 02/01/[address] [place] [address] [id number] documented as of this encounter
--- OUTSIDE RECORDS SUMMARY | 2022-03-23 17:25 | XMS_ITS | Encounter Summary ---
:1980 Author Organization [place] Address [address] [facility] [place] [address] Care Team Providers Name Role Phone Medardo Graf Primary Care Provider Noelle Khan MD Unavailable [phone] Umu Duke MD Unavailable Umu Duke MD Unavailable Encounter Details Date Type Department Care Team Description 06/25/2020 Orders Only [facility] OR Umu Duke Encounter for screening [address] [place] [address] ZAYRA Pettit MD [place] [address] [place] [address] diseases (Primary Dx) [phone] [address] [place] [address] Social History Tobacco Use Types Packs/Day Years Used Date Smoking Tobacco: Never Smokeless Tobacco: Never Alcohol Use Standard Drinks/Week Comments Yes 0 (1 standard drink = 0.6 oz pure alcoho l) occas Alcohol Habits Answer Date Recorded How often [...] been in contact with No / Unsure 06/11/2020 8:16 AM CROSSBOW MAKER someone who was confirmed or suspected to have Coronavirus / COVID-19? documented as of this encounter Plan of Treatment Not on filedocumented as of this encounter Visit Diagnoses Diagnosis Encounter for screening for other viral diseases - Primary documented in this encounter Additional Health Concerns Assessment Noted Time PHQ-9 Depression Total Score: 2 06/01/2020 1:03 PM CROSSBOW MAKER documented as of this encounter Care Teams Partition Making Machine Operator Relationship Specialty Start Date End Date Medardo Graf PCP - General Family Practice 11/15/18 [facility] [address] [place] [address] Noelle Khan Assigned Pulmonology 02/04/20 MD Yumiko Provider [facility] [address] [place], [place] [phone] Umu Duke MD MD search manager 03/16/[address] [place] [address] Umu Duke MD Assigned OBGYN Provider 06/04/20 02/01/22 [address] [facility] [address] [place] [address] documented as of this encounter
--- OUTSIDE RECORDS SUMMARY | 2022-03-23 17:25 | XMS_ITS | Encounter Summary ---
:1980 Author Organization [place] Address [address] [place] [address] Care Team Providers Name Role Phone Medardo Graf Primary Care Provider Noelle Khan MD Unavailable [phone] Umu Duke MD Unavailable Umu Duke MD Unavailable Encounter Details Date Type Department Care Team Description 06/11/2020 Travel Social History Tobacco Use Types Packs/Day [...] with No / Unsure 06/11/2020 8:16 AM NURSING HOME MANAGER someone who was confirmed or suspected to have Coronavirus / COVID-19? documented as of this encounter Plan of Treatment Not on filedocumented as of this encounter Visit Diagnoses Not on filedocumented in this encounter Additional Health Concerns Assessment Noted Time PHQ-9 Depression Total Score: 2 06/01/2020 1:03 PM NURSING HOME MANAGER documented as of this encounter Care Teams Early Childhood Education Instructor Relationship Specialty Start Date End Date JaylawandaMedardo PCP - General Family Practice 11/15/18 [facility] [address] [place] [address] Noelle Khan Assigned Pulmonology 02/04/20 MD Yumiko Provider [facility] [address] [place], [place] [phone] Umu Duke MD MD fur remodeler 03/16/[address] [place], [place] [address] Umu Duke MD Assigned OBGYN Provider 06/04/20 02/01/[address] [place], [place] [address] documented as of this encounter
--- OUTSIDE RECORDS SUMMARY | 2022-03-23 17:25 | XMS_ITS | Encounter Summary ---
:1980 Author Organization [place] Address [address] [place] [address]. [place] [address] Care Team Providers Name Role Phone Medardo Graf Primary Care Provider Noelle Khan MD Unavailable [phone] Umu Duke MD Unavailable Umu Duke MD Unavailable Reason for Visit Auth/Cert Specialty Diagnoses / Procedures Referred By Contact Refer red To Contact Surgery Diagnoses Submucous leiomyoma of uterus Submucous leiomyoma of uterus [D25.0] Ur Periop Procedures HC HYSTEROSCOPY W ENDOMETRIAL BX/POLYPECTOMY W/WO D&C HYSTEROSCOPY, WITH DILATION AND CURETTAGE OF UTERUS USING MORCELLATOR, REMOVAL OF SUBMUCOSAL FIBROIDS [address] [place] [phone] Phone: Fax: Referral ID Status Reason Start Date Expiration Date Visits Requ ested Visits Authorized [id number] 1 1 Encounter Details Date Type Department Care Team Description 07/11/2020 Anesthesia Event [facility] Lisbeth Nguyen MD [address] [place] [id number] PeriOp Services Yolanda Garner APRN LIVESTOCK YARD SUPERVISOR [address] [place] [id number] [place] [phone] Anesthesia Record Procedure Summary Procedure Name Responsible Anesthesia Start Anesthesia Stop Anesthesiologist Time Time HYSTEROSCOPY, WITH Lisbeth Nguyen MD 07/11/20 1308 1 1422 DILATION AND CURETTAGE OF UTERUS USING MORCELLATOR, REMOVAL OF SUBMUCOSAL FIBROIDS (Uterus) Events Date Time Event Comment 07/11/2020 1308 An Start 1308 An Start Data 1315 An Induction 1328 AN INCISION 1414 an stop data 1422 An Stop Electronically s igned by GALINA WOODS APRN CRNA on July 11, 2020 2 :22 PM Name Total midazolam 1mg/mL 2 mg fentaNYL (SUBLIMAZE) injection 100 mcg lidocaine 2% 60 mg propofol (DIPRIVAN) injection 10 mg/mL vial 70 mg propofol (DIPRIVAN) injection 10 mg/mL vial 412.1 mg ondansetron 2mg/mL 4 mg No abx ordered pre-op 1 each ketorolac 30 mg/mL 15 mg LR 500 mL Agents Name NO HELIOX O2 N2O Air Exp Sevoflurane Exp Isoflurane Exp Desflurane Exp N2O O2 Delivery Device Ins Sevoflurane Ins Isoflurane Ins Desflurane O2 Auxiliary Blood No blood administrations on file. Lines, Drains, and Airways Type Details Placement Removal Peripheral IV 07/11/20; 1040; 20 G; BD; 07/11/20 1040 by Amna pineda, 07/11/20 1530 by Kortney, Left, Dorsal; Hand; Ellen Pineda, RN Ayala Pineda RN Chlorhexidine; None; Tolerated well documented in this encounter Social History Tobacco Use Types Packs/Day Years [...] been in contact with No / Unsure 07/11/2020 9:43 AM CDT someone who was confirmed or suspected to have Coronavirus / COVID-19? documented as of this encounter OR Notes Anesthesia Postprocedure Evaluation - Lisbeth Nguyen MD - 07/11/2020 2:50 PM CDT Patient: Lacey Nolasco Procedure(s): HYSTEROSCOPY, WITH DILATION AND CURETTAGE OF UTERUS USING MORCELLATOR, REMOVAL OF SUBMUCOSAL FIBROIDS Diagnosis:Submucous leiomyoma of uterus [D25.0] Diagnosis Additional Information: No value filed. Anesthesia Type: MAC Note: Disposition: Outpatient Postop Pain Control: Sign Out: Well controlled pain PONV: Yes Symptoms: Nausea only Sign Out: PONV/POV resolved with treatment Neuro/Psych: Uneventful Sign Out: Acceptable/Baseline neuro status Airway/Respiratory: Uneventful Sign Out: Acceptable/Baseline resp. status CV/Hemodynamics: Uneventful Sign Out: Acceptable CV status Other NRE: DID A NON-ROUTINE EVENT OCCUR? No Last vitals: Vitals: 07/11/20 1000 07/11/20 1419 BP: 120/81 Pulse: 70 Resp: 18 (P) 16 Temp: 37.1 ??C (98.8 ??F) SpO2: 97% Last vitals prior to Anesthesia Care Transfer: LIVESTOCK YARD SUPERVISOR VITALS 07/11/2020 1344 - 07/11/2020 1444 07/11/2020 NIBP: 110/70 Pulse: 60 NIBP Mean: 65 Temp: 36 ??C (96.8 ??F) SpO2: 100 % Resp Rate (observed): 16 EKG: Sinus rhythm Electronically Signed By: Lisbeth Nguyen MD July 11, 2020 2:50 PM Anesthesia Preprocedure Evaluation - Lisbeth Nguyen MD - 07/11/2020 11:51 AM CDT Anesthesia Pre-Procedure Evaluation Patient: Lacey Nolasco : 1980 Preoperative Diagnosis: Submucous leiomyoma of uterus [D25.0] Procedure : Procedure(s): HYSTEROSCOPY, WITH DILATION AND CURETTAGE OF UTERUS USING MORCELLATOR, REMOVAL OF SUBMUCOSAL FIBROIDS Past Medical History: Diagnosis Date ??? Complication of anesthesia severe nausea ??? Endometriosis ??? Hx of previous reproductive problem used clomid with ??? Hypothyroidism ??? PONV (postoperative nausea and vomiting) Past Surgical History: Procedure Laterality Date ??? DILATION AND CURETTAGE SUCTION, ABLATE ENDOMETRIUM NOVASURE, COMBINED 04/27/2013 Procedure: COMBINED DILATION AND CURETTAGE SUCTION, ABLATE ENDOMETRIUM NOVASURE; COMBINED DILATION AND CURETTAGE SUCTION, ABLATE ENDOMETRIUM NOVASURE; Surgeon: Stephen Mahajan MD; Location: [facility] OR ??? LAPAROSCOPY DIAGNOSTIC (WET MACHINE OPERATOR) 04/23/2011 Procedure:LAPAROSCOPY DIAGNOSTIC (WET MACHINE OPERATOR); LAPAROSCOPY DIAGNOSTIC, pelvic exam under anesthesia, Fulguration Of Endometriosis; Surgeon:STEPHEN MAHAJAN; Location:[facility] OR ??? NECK SURGERY june 2010 ??? SPINE SURGERY cervical disc replacement ??? TONSILLECTOMY Allergies Allergen Reactions ??? Ambien [Zolpidem Tartrate] blacks out but doesn't fall asleep Social History Tobacco Use ??? Smoking status: Never Smoker ??? Smokeless tobacco: Never Used Substance Use Topics ??? Alcohol use: Yes Frequency: 2-4 times a month Drinks per session: 1 or 2 Comment: 2 week Wt Readings from Last 1 Encounters: 07/11/20 83 kg (182 lb 15.7 oz) Anesthesia Evaluation Pt has had prior anesthetic. History of anesthetic complications - PONV. ROS/MED HX ENT/Pulmonary: (+) Mild Persistent, asthma Treatment: Inhaler prn, Neurologic: - neg neurologic ROS (-) no CVA and no TIA Cardiovascular: (-) [place] and syncope METS/Exercise Tolerance: >4 METS Hematologic: - neg hematologic ROS (-) history of blood clots, anemia and history of blood transfusion Musculoskeletal: - neg musculoskeletal ROS GI/Hepatic: - neg GI/hepatic ROS (-) GERD and liver disease Renal/Genitourinary: (-) renal disease Endo: (+) thyroid problem, hypothyroidism, (-) Type I DM and Type II DM Psychiatric/Substance Use: - neg psychiatric ROS Infectious Disease: - neg infectious disease ROS Malignancy: - neg malignancy ROS Other: Physical Exam Airway Mallampati: III TM distance: > 3 FB Neck ROM: full Mouth opening: > 3 cm Respiratory Devices and Support Dental no notable dental history Cardiovascular cardiovascular exam normal Rhythm and rate: regular and normal Pulmonary pulmonary exam normal breath sounds clear to auscultation OUTSIDE LABS: CBC: Lab Results Component Value Date WBC 9.6 11/15/2018 WBC 7.5 11/04/2017 HGB 14.1 07/11/2020 HGB 13.6 11/15/2018 HCT 42.6 11/15/2018 HCT 40.4 11/04/2017 PLT 242 11/15/2018 PLT 225 11/04/2017 BMP: Lab Results Component Value Date NA 142 11/15/2018 NA 141 11/04/2017 POTASSIUM 3.8 11/15/2018 POTASSIUM 3.9 03/22/2018 CHLORIDE 110 (H) 11/15/2018 CHLORIDE 108 11/04/2017 CO2 25 11/15/2018 CO2 29 11/04/2017 BUN 14 11/15/2018 BUN 11 11/04/2017 CR 0.74 11/15/2018 CR 0.8 03/22/2018 GLC 104 (H) 11/15/2018 GLC 89 03/22/2018 COAGS: No results found for: PTT, INR, FIBR POC: Lab Results Component Value Date HCG Negative 05/23/2015 HCGS Negative 07/11/2020 HEPATIC: Lab Results Component Value Date ALBUMIN 4.2 11/15/2018 PROTTOTAL 7.7 11/15/2018 ALT 20 11/15/2018 AST 16 11/15/2018 ALKPHOS 52 11/15/2018 BILITOTAL 0.4 11/15/2018 OTHER: Lab Results Component Value Date LACT 0.6 07/12/2016 PELON 9.1 11/15/2018 LIPASE 50 (L) 11/15/2018 CRP <2.9 04/21/2019 SED 7 04/21/2019 Anesthesia Plan ASA Status: 2 NPO Status: NPO Appropriate Anesthesia Type: MAC. - Reason for MAC: straight local not clinically adequate Induction: Intravenous. Maintenance: Balanced. Consents Anesthesia Plan(s) and associated risks, benefits, and realistic alternatives discussed. Questions answered and patient/sales representative church furniture(s) expressed understanding. - Discussed with: Patient - Extended Intubation/Ventilatory Support Discussed: No. - Patient is DNR/DNI Status: No Use of blood products discussed: No . Postoperative Care Pain management: IV analgesics, Oral pain medications, Multi-modal analgesia. PONV prophylaxis: Ondansetron (or other 5HT-3), Dexamethasone or Solumedrol, Background Propofol Infusion Comments: Lisbeth Nguyen MD documented in this encounter Miscellaneous Notes Anesthesia Care Transfer Note - Galina Woods APRN CRNA - 07/11/2020 2:22 PM CDT Patient: Lacey Nolasco Procedure(s): HYSTEROSCOPY, WITH DILATION AND CURETTAGE OF UTERUS USING MORCELLATOR, REMOVAL OF SUBMUCOSAL FIBROIDS Diagnosis: Submucous leiomyoma of uterus [D25.0] Diagnosis Additional Information: No value filed. Anesthesia Type: MAC Note: Oropharynx: oropharynx clear of all foreign objects and spontaneously breathing Level of Consciousness: drowsy Oxygen Supplementation: face mask Level of Supplemental Oxygen (L/min / FiO2): 6 Independent Airway: airway patency satisfactory and stable Dentition: dentition unchanged Vital Signs Stable: post-procedure vital signs reviewed and stable Report to RN Given: handoff report given Patient transferred to: PACU Handoff Report: Identifed the Patient, Identified the Reponsible Provider, Reviewed the pertinent medical history, Discussed the surgical course, Reviewed Intra-OP anesthesia mangement and issues during anesthesia, Set expectations for post-procedure period and Allowed opportunity for questions and acknowledgement of understanding Vitals: (Last set prior to Anesthesia Care Transfer) LIVESTOCK YARD SUPERVISOR VITALS 07/11/2020 1344 - 07/11/2020 1422 07/11/2020 NIBP: 110/70 Pulse: 60 NIBP Mean: 65 Temp: 36 ??C (96.8 ??F) SpO2: 100 % Resp Rate (observed): 16 EKG: Sinus rhythm Electronically Signed By: GALINA WOODS APRN CRNA July 11, 2020 2:22 PM documented in this encounter Plan of Treatment Not on filedocumented as of this encounter Visit Diagnoses Not on filedocumented in this encounter Administered Medications Inactive Administered Medications - up to 3 most recent administrations Medication Order MAR Action Action Date Dose Rate Site fentaNYL (PF) (SUBLIMAZE) Given 07/11/2020 1:23 PM CDT 25 mcg injection Intravenous, PRN, Administer over 3-5 Minutes, Starting on 07/11/20 at 1308, Anesthesia Intra-op Given 07/11/2020 1:19 PM CDT 25 mcg Given 07/11/2020 1:08 PM CDT 50 mcg ketorolac (TORADOL) injection Given 07/11/2020 2:07 PM CDT 15 mg PRN, Administer over 2 Minutes, Starting on e 07/11/20 at 1407, Anesthesia Intra-op lactated ringers infusion New Bag 07/11/2020 1:08 PM CDT Intravenous, CONTINUOUS PRN, Anesthesia Intra-op, Starting on 07/11/20 at 1308, Until 07/11/20 at 1422 lidocaine 2% injection (MDV) Given 07/11/2020 1:15 PM CDT 60 mg Intravenous, PRN, Starting on 07/11/20 at 1315, Anesthesia Intra-op midazolam (VERSED) injection Given 07/11/2020 1:08 PM CDT 2 mg Intravenous, Administer over 2 Minutes, PRN, Starting on 07/11/20 at 1308, Anesthesia Intra-op ondansetron (ZOFRAN) injection Given 07/11/2020 2:06 PM CDT 4 mg Intravenous, PRN, Administer over 2-5 Minutes, Starting on 07/11/20 at 1406, Anesthesia Intra-op PRE OP antibiotics NOT needed for this Given 07/11/2020 1:18 PM CDT 1 each surgical procedure PRN, Starting on 07/11/20 at 1318, Until Fri07/11/20 at 1422, Anesthesia Intra-op propofol (DIPRIVAN) Rate/Dose Change 07/11/2020 2:05 50 mcg/kg/min 24 .9 mL/hr injection 10 mg/mL vial PM CDT Intravenous, CONTINUOUS PRN, Starting on 07/11/20 at 1315, Anesthesia Intra-op Rate/Dose Change 07/11/2020 1:59 PM CDT 100 mcg/kg/min 49.8 mL/hr Rate/Dose Change 07/11/2020 1:43 PM CDT 75 mcg/kg/min 37.4 mL/hr propofol (DIPRIVAN) injection 10 mg/mL v ial Given 07/11/2020 1:57 PM CDT 20 mg Intravenous, PRN, Starting on 07/11/20 at 1315, Anesthesia Intra-op Given 07/11/2020 1:18 PM CDT 20 mg Given 07/11/2020 1:15 PM CDT 30 mg documented in this encounter Additional Health Concerns Assessment Noted Time PHQ-9 Depression Total Score: 2 06/01/2020 1:03 PM VICE PRESIDENT OF BUSINESS DEVELOPMENT documented as of this encounter Care Teams Marine Architect Relationship Specialty Start Date End Date Medardo Graf PCP - General Family Practice 11/15/18 [facility] [address] [place] [address] Noelle Khan Assigned Pulmonology 02/04/20 MD Yumiko Provider [facility] [address] [place], [place] [phone] Umu Duke MD MD communications systems engineer 03/16/[address] [place], [place] [phone] Umu Duke MD Assigned OBGYN Provider 06/04/20 02/01/[address] [place], [place] [phone] documented as of this encounter
--- OUTSIDE RECORDS SUMMARY | 2022-03-23 17:25 | XMS_ITS | Encounter Summary ---
:1980 Author Organization [place] Address [facility] [place] [address] Care Team Providers Name Role Phone Medardo Graf Primary Care Provider Noelle Khan MD Unavailable [phone] Umu Duke MD Unavailable Umu Duke MD Unavailable Reason for Visit Reason Onset Date Comments Covid 19 Testing 07/07/2020 Encounter Details Date Type Department Care Team Description 07/07/[address] [facility] Nurse, [facility] Covid 19 Testing [place] [address] [place] [facility] [address] [place], [place] [phone] Social History Tobacco Use Types Packs/Day Years [...] with No / Unsure 06/11/2020 8:[address] ADVIS[address] someone who was confirmed or suspected to have Coronavirus / COVID-19? documented as of this encounter Miscellaneous Notes Telephone Encounter - Karen Villegas, RN - 07/07/2020 2:02 PM CDT Pt called stating that she was Covid tested 07/03/20. This feature writer told the pt that the test was only valid for 96 hours. She would need to be tested again. Pt was upset and was going to get tested not through [employer]. documented in this encounter Plan of Treatment Not on filedocumented as of this encounter Visit Diagnoses Not on filedocumented in this encounter Additional Health Concerns Assessment Noted Time PHQ-9 Depression Total Score: 2 06/01/2020 1:[address] ADVISOR documented as of this encounter Care Teams Manager Online Relationship Specialty Start Date End Date Medardo Graf PCP - General Family Practice 11/15/18 [facility] [address] [place] [address] Noelle Khan Assigned Pulmonology 02/04/20 MD Yumiko Provider [facility] [address] [place] [id number] Umu Duke MD MD culinary worker 03/16/[address] [place], [place] [address] Umu Duke MD Assigned OBGYN Provider 06/04/20 02/01/[address] [place], [place] [id number] documented as of this encounter
--- OUTSIDE RECORDS SUMMARY | 2022-03-23 17:25 | XMS_ITS | Encounter Summary ---
:1980 Author Organization Media Address [address] [facility] [place] [address] Care Team Providers Name Role Phone Medardo Graf Primary Care Provider Noelle Khan MD Unavailable [phone] Umu Duke MD Unavailable Umu Duke MD Unavailable Reason for Visit Auth/Cert Specialty Diagnoses / Procedures Referred By Contact Refer red To Contact Surgery Diagnoses Submucous leiomyoma of uterus Submucous leiomyoma of uterus [D25.0] Ur Periop Procedures HC HYSTEROSCOPY W ENDOMETRIAL BX/POLYPECTOMY W/WO D&C HYSTEROSCOPY, WITH DILATION AND CURETTAGE OF UTERUS USING MORCELLATOR, REMOVAL OF SUBMUCOSAL FIBROIDS [address] [place] [address] Phone: Fax: Referral ID Status Reason Start Date Expiration Date Visits Requ ested Visits Authorized [id number] 1 1 Encounter Details Date Type Department Care Team Description 07/11/2020 Hospital Encounter UR PETER OR Umu Duke Submucous leiomyoma of uteru s; [address] Pettit MD Submucous [place] [address] [phone] [address] [place] [address] Social History Tobacco Use Types [...] Sign Reading Time Taken Comments Blood Pressure 116/82 07/11/2020 3:36 PM CDT Pulse 63 07/11/2020 3:36 PM CDT Temperature 36.4 ??C (97.5 ??F) 07/11/2020 3:15 PM CDT Respiratory Rate 18 07/11/2020 3:36 PM CDT Oxygen Saturation 99% 07/11/2020 3:36 PM CDT Inhaled Oxygen Concentration - - Weight 83 kg (182 lb 15.7 oz) 07/11/2020 10:00 AM CDT Height 167.6 cm (5' 6) 07/11/2020 10:00 AM CDT Body Mass Index 29.53 07/11/2020 10:00 AM CDT documented in this encounter Discharge Instructions Discharge Ellen Alvarez RN - 07/11/2020 2:03 PM CDT Same-Day Surgery Adult Discharge Orders & Instructions For 24 hours after surgery: 1. Get plenty of rest. A responsible adult must stay with you for at least 24 hours after you leave the hospital. 2. Pain medication can slow your reflexes. Do not drive or use heavy equipment. If you have weaknessor tingling, don't drive or use heavy equipment until this feeling goes away. 3. Mixing alcohol and pain medication can cause dizziness and slow your breathing. It can even be fatal. Do not drink alcohol while taking pain medication. 4. Avoid strenuous or risky activities. Ask for help when climbing stairs. 5. You may feel lightheaded. If so, sit for a few minutes before standing. Have someone help you getup. 6. If you have nausea (feel sick to your stomach), drink only clear liquids such as apple juice, fermin abhijeet, broth or 7-Up. Rest may also help. Be sure to drink enough fluids. Move to a regular diet asyou feel able. Take pain medications with a small amount of solid food, such as toast or crackers, to avoid nausea. 7. A slight fever is normal. Call the doctor if your fever is over 100??F (37.7??C) (taken under thetongue) or lasts longer than 24 hours. 8. You may have a dry mouth, muscle aches, trouble sleeping or a sore throat. These symptoms should go away after 24 hours. 9. Do not make important or legal decisions. Pain Management: 1. Take pain medication (if prescribed) for pain as directed by your physician. 2. WARNING: If the pain medication you have been prescribed contains Tylenol (acetaminophen), DO NOT take additional doses of Tylenol (acetaminophen). Call your doctor for any of the followin. Signs of infection (fever, growing tenderness at the surgery site, severe pain, a large amount ofdrainage or bleeding, foul-smelling drainage, redness, swelling). 2. It has been over 8 to 10 hours since surgery and you are still not able to urinate (pee). 3. Headache for over 24 hours. 4. Numbness, tingling or weakness the day after surgery (if you had spinal anesthesia). To contact a doctor, call or: ??? [phone] and ask for the Resident Metal Pourer for: ___OBGYN resident (answered 24 hours a day) ??? Emergency Department: [facility]: [phone] [facility]: [phone] Rev. 01/2014 documented in this encounter Medications at Time of Discharge Medication Sig Dispensed Refills Start Date End Date levothyroxine 50 mcg daily 0 04/09/2019 (SYNTHROID/LEVOTHROID) 50 MCG tablet norgestrel-ethinyl Take 1 tablet by 0 03/15/2020 estradiol (LO/OVRAL) 0.3-30 mouth MG-MCG tablet valACYclovir (VALTREX) 500 0 8 MG tablet documented as of this encounter Nursing Notes Ayala Sheets RN - 07/11/2020 3:00 PM CDT Patient wanted to talk to MD concerning specifics of her procedure. MD Che Rodgers paged and talked with patient at bedside documented in this encounter Miscellaneous Notes Op Note - Umu Duke MD - 07/11/2020 2:19 PM CDT Hysteroscopy with D&C Preoperative diagnosis: -fibroid uterus Postoperative diagnosis: Same Procedure: EUA, operative hysteroscopy with morcellation, dilation and curettage under ultrasound guidance Surgeon: Dr. Duke Manager Commercial Sales: Che Rodgers, PGY-4, Stiven Escalera, MS-3 Anesthesia: MAC Specimens: Endometrial curettings Complications: none EBL: 15 mL IVF: 500 mL crystalloid UOP: Not quantified Fluid deficit: 1455 mL crystalloid Findings: Exam under anesthesia revealed normal cervix, enlarged fibroid uterus, no adnexal masses. Hysteroscopy revealed shrunken uterine cavity with large right and anterior intracavitary fibroid. Unable to visualize tubal ostia. D&C performed with scant return of tissue. Indications: Shamir Nolasco is a 40 year old With fibroids and known dysmenorrhea. Risks, benefits, and alternatives to the procedure were discussed with the patient who elected to proceed. All questions were answered and an informed consent was obtained. Procedure: The patient was taken to the operating room where she underwent MAC anesthesia without difficulty. She was placed in a dorsal lithotomy position using Yellow fin stirrups. The patient was examined for the above noted findings and then prepped and draped in the usual sterile fashion. A medium graves speculum was inserted into the vagina. 1cc 1% plain lidocaine was injected into the cervix at 12 o'clock position. A tenaculum was placed on the anterior cervical lip. A paracervical block was administered with an additional 19 cc 1% plain lidocaine at the 5 and 7 o'clock positions. The endocervical canal was serially dilated to 6.5 mm using Hegar dilators. The hysteroscope was inserted without difficulty with the above findings noted. The Myosure reach device was placed and fibroid resected until a maximum safe fluid deficit. Minimal residual fibroid noted. The hysteroscope was removed and sharp curettage was performed. The tissue was sent to pathology. All instruments were then removed. The tenaculum was removed from the cervix and the puncture sites were hemostatic. The patient was repositioned to the supine position. The patient tolerated the procedure well and was taken to the recovery room instable condition. Dr. Duke was scrubbed and present for the entire procedure. Che Rodgers MD Obstetrics and Gynecology, PGY-4 07/11/20 2:22 PM I was present and scrubbed throughout the procedure, I agree with the note above Umu Duke MD documented in this encounter Plan of Treatment Not on filedocumented as of this encounter Procedures Procedure Name Priority Date/Time Associated Comments Diagnosis SURGICAL PATHOLOGY Routine 07/11/2020 1:36 PM Res ults for this EXAM CDT procedure are i n the results section. GLUCOSE BY METER Routine 07/11/2020 11:44 Submucous leiomyoma Results for this AM CDT of uterus procedure are i n the results section. HEMOGLOBIN STAT 07/11/2020 10:34 Submucous leiomyoma Resu lts for this AM CDT of uterus procedure are i n the results section. HCG QUALITATIVE STAT 07/11/2020 10:34 Submucous leiomyoma R esults for this AM CDT of uterus procedure are i n the results section. ABO/RH TYPE AND STAT 07/11/2020 10:34 Submucous leiomyoma R esults for this SCREEN AM CDT of uterus procedure are i n the results section. SARS-COV-2 (COVID-19) STAT 07/11/2020 10:15 Submucous leiom yoma Results for this VIRUS RT-PCR AM CDT of uterus procedure are i n the results section. DILATION AND Routine 07/11/2020 9:54 AM Submucous leiomyoma CURETTAGE, OPERATIVE CDT of uterus HYSTEROSCOPY WITH MORCELLATOR, COMBINED LAB RESULT - HIM SCAN 07/03/2020 12:00 AM CDT documented in this encounter Results Surgical pathology exam (07/11/2020 1:36 PM CDT) Component Value Ref Test Analysis Performed At [facility] Range Method Time Signature Copath Report Patient Name: SHAMIR NOLASCO MR#: [id number] Specimen #: [id number] Collected: 07/11/2020 Received: 07/11/2020 Reported: 07/13/2020 23:37 Ordering Phy(s): UMU DUKE For improved result formatting, select 'View Enhanced Report Format' under Linked Documents section. SPECIMEN(S): Myoma, uterine FINAL DIAGNOSIS: Uterus, myoma, hysteroscopic resection and endometrial curet tage: - Multiple fragments of smooth muscle, consistent with submu cosal leiomyoma - Unremarkable endocervical and squamous epithelium - Rare, minute fragments of columnar epithelium suggestive o f endometrial epithelium - Negative for atypia or malignancy I have personally reviewed all specimens and/or slides, incl uding the listed special stains, and used them with my medical judgement to determine or confirm the final diagnosis. Electronically signed out by: Cristel Rudolph M.D, [facility] CLINICAL HISTORY: The patient is a 40-year-old woman with uterine fibroids. ?? Procedure: operative hysteroscopy with morcellation, dilation and curettage under ultrasound cristhian fritz. GROSS: The specimen is received in formalin in a mesh bag with prop er patient identification, labeled uterine myoma. ??The specimen consists of a 5.0 x 4.5 x 1.0 cm aggr egate of nazario- white soft tissue fragments. ??It is wrapped and entirely submitted in cassettes A1- A3. (Dictate d by: Jessica SANCHEZ [facility] 07/12/2020 01:32 PM) MICROSCOPIC: Microscopic examination is performed. The technical component of this testing was completed at the [facility], with the professional compo nent performed at the [facility], [address], [place] [address] ([phone]) CPT Codes: A: 31708-NC8 COLLECTION SITE: Client: [facility] Location: UROR (B) Specimen (Source) Anatomical Collection Method Collection Time Re ceived Time Location / / Volume Laterality Tissue specimen UTERINE STRUCTURE 07/11/2020 1:36 PM (specimen) / Unknown CDT Umu Duke MD LAB - BEAKER AP Performing Organization Address City/[facility]/ZIP [facility] Phon e Number COPATH Glucose by meter (07/11/2020 11:44 AM CDT) athologist Signature Glucose 83 70 - 99 07/11/2020 POINT OF CARE mg/dL 12:13 PM CDT TEST, GLUCOSE Specimen Anatomical Collection Method Collection Time Receive d Time (Source) Location / / Volume Laterality 07/11/2020 11:44 07/11/2020 AM CDT 12:13 PM CDT Umu JONES - BEJAIME POCT Performing Organization Address City/[facility]/ZIP Code Phon e Number FV POINT OF CARE TEST, GLUCOSE POINT OF CARE TEST, GLUCOSE Hemoglobin (07/11/2020 10:34 AM CDT) athologist Signature Hemoglobin 14.1 11.7 - 15.7 07/11/2020 [facility] g/dL 10:46 AM CDT [facility] Specimen Anatomical Collection Method Collection Time Receive d Time (Source) Location / / Volume Laterality Blood specimen 07/11/2020 10:34 (specimen) AM CDT 10:35 AM CDT Umu Duke MD LAB - BLOOD ORDERABLES Performing Organization Address City/State/ZIP Code Phon e Number [address] [address] [facility] HCG qualitative Blood (07/11/2020 10:34 AM CDT) [facility] gist Method Time Signature HCG Qualitative Negative NEG^Negat 07/11/2020 [facility] sidra 11:47 AM CDT [facility] Comment: This test is for screening purposes. ??R esults should be interpreted along with the clinical picture. ??Confirmation te sting is available if warranted by ordering [id number], HCG Quantitative Pregna ncy. Specimen Anatomical Collection Method Collection Time Receive d Time (Source) Location / / Volume Laterality Blood specimen 07/11/2020 10:34 1 (specimen) AM CDT 10:35 AM CDT Umu Duke MD LAB - BLOOD ORDERABLES Performing Organization Address City/[facility]/[place] Code Phon e Number [facility] [address] [place] [address] [facility] ABO/Rh type and screen (07/11/2020 10:34 AM CDT) [facility] [place] Method Time Signature ABO O 07/11/2020 [facility] 11:38 AM CDT [facility] RH(D) Pos [facility] Antibody Neg 07/11/2020 [facility] Screen 11:38 AM CDT [facility] Test Valid [facility] 07/11/2020 [facility] 10:56 AM CDT [facility] [facility] Hospital Specimen 07/14/2020 07/11/2020 [facility] Expires 10:56 AM CDT [facility] Specimen Anatomical Collection Method Collection Time Receive d Time (Source) Location / / Volume Laterality Blood specimen 07/11/2020 10:34 1 (specimen) AM CDT 10:35 AM CDT Umu Duke MD LAB - BLOOD BANK TEST ORDER Performing Organization Address [facility]/[place] Code Phon e Number [place] [address] [place] [address] [facility] Asymptomatic SARS-CoV-2 COVID-19 Virus (Coronavirus) by PCR (07/11/2020 10:15 AM CDT) [facility] [place] Method Time Signature SARS-CoV-2 Nasopharyngeal 07/11/2020 [facility] Virus 10:56 AM PR MEDICAL Specimen CDT [facility] Source BANK SARS-CoV-2 NEGATIVE 07/11/2020 [facility] PCR Result 11:31 AM [facility] Comment: SARS-CoV2 (COVID-19) RNA not de tected, presumed negative. SARS-CoV-2 PCR Comment (Note) 07/11/2020 11 :31 AM CDT [facility] Comment: Testing was performed using the katelin SA RS-CoV-2 & Influenza A/B Assay on the katelin Celine System. This test should be ordered for the dete ction of SARS-COV-2 in individuals who meet SARS-CoV-2 clinical and/or epidemi ological criteria. Test performance is unknown in asymptomatic patients. This test is for in vitro diagnostic use under the FDA EUA for laboratories certified under CLIA to perform moderate and/or high complexity testing. This test has not been FDA cleared or approve d. A negative test does not rule out the pr esence of PCR inhibitors in the specimen or target RNA in concentration below the limit of detection for the assay. The possibility of a false negati ve should be considered if the patient's recent exposure or clinical pr esentation suggests COVID-19. [facility] burrp! are certi fied under the Clinical Laboratory Improvement Amendments of 1988 (CLIA-88) as qualified to perform moderate and/or high complexity laboratory testin g. Specimen (Source) Anatomical Collection Method Collection Time Re ceived Time Location / / Volume Laterality Specimen from 07/11/2020 10:15 07/11/2020 nasopharyngeal AM CDT 10:55 AM CDT structure (specimen) Umu Duke MD LAB - MICRO GENERAL ORDERABL ES Performing Organization Address City/State/ZIP Code Phon e Number [facility] [address] [place] [address] [facility] LAB RESULT - HIM SCAN (07/03/2020 12:00 AM CDT) Specimen (Source) Anatomical Location Collection Method / Collectio n Time Received Time / Laterality Volume 07/03/2020 Narrative This result has an attachment that is no t available. Provider Outside NON-BEAKER LAB TESTING documented in this encounter Visit Diagnoses Diagnosis Submucous leiomyoma of uterus - Primary Submucous leiomyoma of uterus documented in this encounter Admitting Diagnoses Diagnosis Submucous leiomyoma of uterus documented in this encounter Administered Medications Inactive Administered Medications - up to 3 most recent administrations Medication Order MAR Action Action Date Dose Rate Site acetaminophen (TYLENOL) tablet Given 07/11/2020 10:52 AM CDT 975 mg 975 mg 975 mg, Oral, ONCE, On Fri07/11/20 at 1030, For 1 dose, Give within 60 min of procedure. Hold if patient has taken acetaminophen within 4 hours. Maximum acetaminophen dose from all sources = 75 mg/kg/day not to exceed 4 grams/day., Pre-procedure fentaNYL (PF) (SUBLIMAZE) injection 25-5 0 mcg Given 07/11/2020 2:44 PM CDT 25 mcg 25-50 mcg, Intravenous, EVERY 2 MIN PRN, other, acute pain while in PACU., Starting on Fri07/11/20 at 1358, MAX cumulative dose = 250 mcg. Use fentaNYL (SUBLIMAZE) initially, as a short acting agent for acute pain control. If insufficient, or a longer acting agent is needed, begin morphine or HYDROmorphone (DILAUDID) if ordered. For ordered IV doses 1-100 mcg give IV Push undiluted over a minimum of 3-5 minutes., PACU Given 07/11/2020 2:37 PM CDT 25 mcg hydrALAZINE (APRESOLINE) injection 2.5-5 mg 2.5-5 mg, Intravenous, EVERY 10 MIN PRN, high blood pressure, for Systolic Blood Pressure greater than 160 mmHg and Heart Rate less paulina n 60 bpm.?, Administer over 1 Minutes, Starting on Fri07/11/20 at 1358, Max cumulative dose = 20 mg. For PACU USE ONLY For ordered IV doses 1-40 mg, give IV Push undiluted over 1 minute., PACU lactated ringers infusion at 100 mL/hr, Intravenous, CONTINUOUS, Continue until IV catheter is weaned, PACU/Phase II, Starting on Fri07/11/20 at 1430, Until Fri07/11/20 at 1748 lidocaine 1 % injection Given 07/11/2020 1:38 PM 20 mLs Operative Site/Surgical PRN, Starting on Fri CDT Site 07/11/20 at 1338, Intra-procedure metoprolol (LOPRESSOR) injection 1-2 mg 1-2 mg, Intravenous, EVERY 5 MIN PRN, high blood press ure, for Systolic Blood Pressure greater than 160 mmHg and Heart Rate greater than 60 bpm.?, Administer over 5-10 Minutes, Starting on Fri at 1358, Max cumulative dose = 10 mg. For PACU USE ONLY. Give IV Push undilute d for IV doses 0.1-15 mg. For new therapy administer each 5mg administered over 1- 2 minutes. When replacing chronic therapy, administer dose over 5-10 minutes., PACU midazolam (VERSED) injection 2 mg Given 07/11/2020 12:01 PM CDT 2 mg 2 mg, Intravenous, ONCE, On Fri07/11/20 at 1200, For 1 dose, This drug may cause significant respiratory depression. Monitor respiratory status and vital signs carefully for 1 hour after each dose. naloxone (NARCAN) injection 0.2 mg 0.2 mg, Intravenous, EVERY 2 MIN PRN, op ioid reversal, Starting on Fri07/11/20 at 1400, For 24 hours, Administer intraveno us route when available and notify provider when administered. For unintended sedati on or respiratory depression if all of the below criteria are met: ~ respiratory ra te LESS than or EQUAL to 8. ~SaO2 less than 92% and or/end-tidal CO2 is greater than 50. ~ the patient is receiving an opioid, has unintended sedations assessed as CRISTY S (-3), and is currently not on mechanical ventilation. RASS scale moderate (-3) is movement or eye opening to voice but no eye contact. Patient Monitoring Once the patient has demonstrated a response to the naloxone, continue to monitor respiratory rate, depth, oxygen saturation and end-tidal CO2 (if available) every 15 mi nutes x 2, then every 30 minutes x 2, then every 1 hour x 1 after each naloxone dose. Consider tr ansfer to ICU if patient respiratory parameters have not improved after 4 nalox one doses. For ordered IV doses 0.1-2mg give IVP. Give each 0.4mg over 15 seconds in emergency situations. For non-emergent situations further dilu te in 9mL of NS to facilitate titration of response., PACU/Phase II naloxone (NARCAN) injection 0.2 mg 0.2 mg, Intramuscular, EVERY 2 MIN PRN, opioid reversal, Starting on Fri07/11/20 at 1400, For 24 hours, Administer intramuscular if an int ravenous route is not available and notify provider when administered. For u nintended sedation or respiratory depression if all of the below criteria ar e met: ~ respiratory rate LESS than or EQUAL to 8. ~SaO2 less than 92% and or/end-tidal CO2 is greater than 50. ~ the patient is receiving an opioid , has unintended sedations assessed as RASS (-3), and is currently not on mechanical ventilation. RASS scale moderate (-3) is movement or eye opening to voice but no eye contact. Patient Monitoring Once the patient has demonstrated a response to the naloxone, c ontinue to monitor respiratory rate, depth, oxygen saturati on and end-tidal CO2 (if available) every 15 minutes x 2, then every 30 minutes x 2, then every 1 hour x 1 after each naloxone dose. Consider transfer to ICU if patient respiratory parameters have not improved after 4 naloxone doses. For ord ered IV doses 0.1-2mg give IVP. Give each 0.4mg over 15 seconds in emergency situa tions. For non-emergent situations further dilute in 9mL of NS to facilitate titration of respons e., PACU/Phase II naloxone (NARCAN) injection 0.4 mg 0.4 mg, Intravenous, EVERY 2 MIN PRN, op ioid reversal, Starting on Fri07/11/20 at 1400, For 24 hours, Administer intraveno us route when available and notify provider when administered. For unintended sedati on or respiratory depression if all of the below criteria are met: ~ respiratory rate LESS than o r EQUAL to 8. ~ SaO2 less than 92% and or/end-tidal CO2 is greater than 50. ~ th e patient is receiving an opioid, has unintended sedation assessed as RASS (-4) or (-5) and patient is currently not on mechanical ventilation. RASS scale (-4) is deep sedation with no response to voice but movement or eye op ening to physical stimulation. RASS scale (-5) is unarousable. Patient Monitoring Once the patie nt has demonstrated a response to the naloxone, continue to monitor respirat ory rate, depth, oxygen saturation and end-tidal CO2 (if available) every 15 m inutes x 2, then every 30 minutes x 2, then every 1 hour x 1 after each naloxone dose. Consider transfer to ICU if patient respiratory parameters matamoros ve not improved after 4 naloxone doses. For ordered IV doses 0.1-2mg give IVP. Give each 0.4mg ove r 15 seconds in emergency situations. For non-emergent situations further dilute in 9mL of NS to facilitate titration of response., PACU/Phase II naloxone (NARCAN) injection 0.4 mg 0.4 mg, Intramuscular, EVERY 2 MIN PRN, opioid reversal, Starting on Fri07/11/20 at 1400, For 24 hours, Administer intramuscular if an int ravenous route is not available and notify provider when administered. For u nintended sedation or respiratory depression if all of the below criteria ar e met: ~ respiratory rate LESS than or EQUAL to 8. ~ SaO2 less paulina n 92% and or/end-tidal CO2 is greater than 50. ~ the patient is receiving an opioid , has unintended sedation assessed as RASS (-4) or (-5) and patient is currently not on mechanica l ventilation. RASS scale (-4) is deep sedation with no response to voice but mo vement or eye opening to physical stimulation. RASS scale (-5) is unarousable. Patient Monitoring Once the patient has demonstrated a response to the naloxone, c ontinue to monitor respiratory rate, depth, oxygen saturati on and end-tidal CO2 (if available) every 15 minutes x 2, then every 30 minutes x 2, then every 1 hour x 1 after each naloxone dose. Consider transfer to ICU if patient respiratory parameters have not improved after 4 naloxone doses. For ord ered IV doses 0.1-2mg give IVP. Give each 0.4mg over 15 seconds in emergency situa tions. For non-emergent situations further dilute in 9mL of NS to facilitate titration of respons e., PACU/Phase II ondansetron (ZOFRAN) injection 4 mg Given 07/11/2020 2:30 PM CDT 4 mg 4 mg, Intravenous, EVERY 30 MIN PRN, nausea, vomiting, Administer over 2-5 Minutes, Starting on Fri07/11/20 at 1400, For 2 doses, MAX total dose = 8 mg, including OR dosing. This is step 1 of nausea and vomiting management. If not resolved in 15 minutes, then go to step 2 [prochlorperazine (COMPAZINE) if ordered]. Irritant. For ordered IV doses 0.1-4 mg, give IV Push undiluted over 2-5 minutes., PACU/Phase II ondansetron (ZOFRAN-ODT) ODT tab 4 mg 4 mg, Oral, EVERY 30 MIN PRN, nausea, vo miting, Starting on Fri07/11/20 at 1400, For 2 doses, MAX total dose = 8 mg, incl uding OR dosing. This is step 1 of nausea and vomiting management. If not resolved in 15 minutes , then go to step 2 [prochlorperazine (COMPAZINE) if ordered ]. With dry hands, peel back foil backing and gently remove tablet. Do not push oral disintegrat ing tablet through foil backing. Administer immediately on tongu e and oral disintegrating tablet dissolves in seconds, then swallow with saliva. Liquid not requi red., PACU/Phase II ORAL Pain Medications - may administer a s ordered by surgeon for take home use CONTINUOUS PRN, Starting on Fri07/11/20 at 1400, Until Fri07/11/20 at 1748, May administer oral pain medications as ordered by surgeon for take home use. Discontinue IV pain medication prior to administration of oral pain medication., PACU/Phase II PRE OP antibiotics NOT needed for this s urgical procedure CONTINUOUS, Starting on Fri07/11/20 at 1030, Until Fri07/11/20 at 1748, PRE OP antibiotics NOT needed for this surgical procedure., P re-procedure documented in this encounter Active and Recently Administered Medications Times are shown in CDT. Scheduled Medication Order 07/09/2020 07/10/2020 07/11/2020 acetaminophen (TYLENOL) tablet 975 mg (COMPLETED) 1052 (Given - Provider: Ellen Kelley RN) 975 mg, Oral, ONCE, e 07/11/20 at 1030, For 1 dose, Give within 60 min of procedure. Hold if patient has taken acetaminophen within 4 hours. Maximum acetaminophen dose from all sources = 75 mg/kg/day not to exceed 4 grams/day., Pre-procedure acetaminophen (TYLENOL) tablet 975 mg 975 mg, Oral, ONCE, e 07/11/20 at 1900, For 1 dose, Administer 6 hours after pre-op dose, if given. Maximum acetaminophen dose from all sources = 75 mg/kg/day not to exceed 4 grams/day., Post-procedure ibuprofen (ADVIL/MOTRIN) tablet 800 mg 800 mg, Oral, ONCE, e 07/11/20 at 1900, For 1 dose, Administer when patient tolerating oral intake AND 6 hours after last ketorolac (TORADOL) dose, if given. Give with food., Post-procedure midazolam (VERSED) injection 2 mg (COMPLETED) 1201 (Given - Provider: Michaela Sepulveda, RN) 2 mg, Intravenous, ONCE, 07/11/20 at 1200, For 1 dose, This drug may cause significant respiratory depression. Monitor respiratory status and vital signs carefully for 1 hour after each dose. Continuous Medication Order 07/09/2020 07/10/2020 07/11/2020 lactated ringers infusion 1430 ( Canceled Entry - Provider: Orders Generic Provider - Comment: Automatically canceled at discontinue of medication order) at 100 mL/hr, Intravenous, CONTINUOUS, C ontinue until IV catheter is weaned, PACU/Phase II, Starting 07/11/20 at 1430, Until 07/11/20 at 1748 PRE OP antibiotics NOT needed for this surgical procedure 1052 (z Missed (do not use) - Provider: Ellen Kelley RN - Reason: Other - Comment: nonantibiotic ordered) CONTINUOUS, Starting 07/11/20 at 1030 , Until 07/11/20 at 1748, PRE OP antibiotics NOT needed for this surgical procedure., Pre-procedure PRN Medication Order 07/09/2020 07/10/2020 07/11/2020 fentaNYL (PF) (SUBLIMAZE) injection 25-50 mcg 1437 (Given - Provider: Ayala Sheets, LEELA)1444 (Given - Provider: Ayala Sheets, LEELA) 25-50 mcg, Intravenous, EVERY 2 MIN PRN, other, acute pain while in PACU., Starting 07/11/20 at 1358, MAX cumulative dose = 250 mcg. Use fentaNYL (SUBLIMAZE) initially, as a short acting agent for [place] pain control. If insufficient, or a longer acting agent is needed, begin morphine or HYDROmorphone (DILAUDID) if ordered. For ordered IV doses 1-100 mcg give IV Push undiluted over a minimum of 3-5 minutes., PACU hydrALAZINE (APRESOLINE) injection 2.5-5 mg 2.5-5 mg, Intravenous, EVERY 10 MIN PRN, high blood pressure, for Systolic Blood Pressure greater than 160 mmHg and Heart Rate less than 60 bpm.?, Administer over 1 Minutes, Starting 07/11/20 at 1 358, Max cumulative dose = 20 mg. For PA CU USE ONLY For ordered IV doses 1-40 mg, give IV Push undiluted over 1 minute., PACU lidocaine 1 % injection 1338 (Gi mickie - Provider: Umu Duke MD - Comment: Cervical block) PRN, Starting e 07/11/20 at 1338, Intra-procedure metoprolol (LOPRESSOR) injection 1-2 mg 1-2 mg, Intravenous, EVERY 5 MIN PRN, hi gh blood pressure, for Systolic Blood Pressure greater than 160 mmHg and Heart Rate greater than 60 bpm.?, Administer over 5-10 Minutes, Starting 07/11/20 a t 1358, Max cumulative dose = 10 mg. For PACU USE ONLY. Give IV Push undiluted for IV doses 0.1-15 mg. For new therapy administer each 5mg administered over 1- 2 minutes. When replacing chronic therapy, administer dose over 5-10 minutes., PACU naloxone (NARCAN) injection 0.2 mg 0.2 mg, Intravenous, EVERY 2 MIN PRN, op ioid reversal, Starting e 07/11/20 at 1400, For 24 hours, Administer intravenous route when available and notify provider when administered. For unintended sedat ion or respiratory depression if all of the below criteria are met: ~ respiratory rate LESS than or EQUAL to 8. ~SaO2 less than 92% and or/end-tidal CO2 is greater than 50. ~ the patient is receiving an opioid, has unintended sedations assess ed as RASS (-3), and is currently not on mechanical ventilation. RASS scale moderate (-3) is movement or eye opening to voice but no eye contact. Patient Monitori ng Once the patient has demonstrated a r esponse to the naloxone, continue to monitor respiratory rate, depth, oxygen saturation and end-tidal CO2 (if available) every 15 minutes x 2, then every 30 minut es x 2, then every 1 hour x 1 after each naloxone dose. Consider transfer to ICU if patient respiratory parameters have not improved after 4 naloxone doses. For ordered IV doses 0.1-2mg give IVP. Give e ach 0.4mg over 15 seconds in emergency s ituations. For non-emergent situations further dilute in 9mL of NS to facilitate titration of response., PACU/Phase II naloxone (NARCAN) injection 0.2 mg 0.2 mg, Intramuscular, EVERY 2 MIN PRN, opioid reversal, Starting Fri07/11/20 at 1400, For 24 hours, Administer intramuscular if an intravenous route is not available and notify provider when administer ed. For unintended sedation or respirato ry depression if all of the below criteria are met: ~ respiratory rate LESS than or EQUAL to 8. ~SaO2 less than 92% and or/end-tidal CO2 is greater than 50. ~ the patient is receiving an opioid, has uni ntended sedations assessed as RASS (-3), and is currently not on mechanical ventilation. RASS scale moderate (-3) is movement or eye opening to voice but no eye c ontact. Patient Monitoring Once the gildardo ent has demonstrated a response to the naloxone, continue to monitor respiratory rate, depth, oxygen saturation and end-tidal CO2 (if available) every 15 minutes x 2, then every 30 minutes x 2, then mary ry 1 hour x 1 after each naloxone dose. Consider transfer to ICU if patient respiratory parameters have not improved after 4 naloxone doses. For ordered IV doses 0.1-2mg give IVP. Give each 0.4mg over 1 5 seconds in emergency situations. For non-emergent situations further dilute in 9mL of NS to facilitate titration of response., PACU/Phase II naloxone (NARCAN) injection 0.4 mg 0.4 mg, Intravenous, EVERY 2 MIN PRN, op ioid reversal, Starting Fri07/11/20 at 1400, For 24 hours, Administer intravenous route when available and notify provider when administered. For unintended sedat ion or respiratory depression if all of the below criteria are met: ~ respiratory rate LESS than or EQUAL to 8. ~ SaO2 less than 92% and or/end-tidal CO2 is greater than 50. ~ the patient is receiving a n opioid, has unintended sedation assess ed as RASS (-4) or (-5) and patient is currently not on mechanical ventilation. RASS scale (-4) is deep sedation with no response to voice but movement or eye ope pollo to physical stimulation. RASS scale (-5) is unarousable. Patient Monitoring Once the patient has demonstrated a response to the naloxone, continue to monitor respiratory rate, depth, oxygen saturat ion and end-tidal CO2 (if available) mary ry 15 minutes x 2, then every 30 minutes x 2, then every 1 hour x 1 after each naloxone dose. Consider transfer to ICU if patient respiratory parameters have not improved after 4 naloxone doses. For ord ered IV doses 0.1-2mg give IVP. Give each 0.4mg over 15 seconds in emergency situations. For non-emergent situations further dilute in 9mL of NS to facilitate titration of response., PACU/Phase II naloxone (NARCAN) injection 0.4 mg 0.4 mg, Intramuscular, EVERY 2 MIN PRN, opioid reversal, Starting Fri07/11/20 at 1400, For 24 hours, Administer intramuscular if an intravenous route is not available and notify provider when administer ed. For unintended sedation or respirato ry depression if all of the below criteria are met: ~ respiratory rate LESS than or EQUAL to 8. ~ SaO2 less than 92% and or/end-tidal CO2 is greater than 50. ~ th e patient is receiving an opioid, has un intended sedation assessed as RASS (-4) or (-5) and patient is currently not on mechanical ventilation. RASS scale (-4) is deep sedation with no response to voice but movement or eye opening to physical stimulation. RASS scale (-5) is unarousable. Patient Monitoring Once the patient has demonstrated a response to the naloxone, continue to monitor respiratory rat e, depth, oxygen saturation and end-tida l CO2 (if available) every 15 minutes x 2, then every 30 minutes x 2, then every 1 hour x 1 after each naloxone dose. Consider transfer to ICU if patient respirat ory parameters have not improved after 4 naloxone doses. For ordered IV doses 0.1-2mg give IVP. Give each 0.4mg over 15 seconds in emergency situations. For non-emergent situations further dilute in 9mL of NS to facilitate titration of response., PACU/Phase II NO Rho (D) immune globulin (RhoGam) needed - NOT obstetric patie nt CONTINUOUS PRN, Starting Fri07/11/20 at 1359, Until Fri07/11/20 at 1748, Post-procedure ondansetron (ZOFRAN) injection 4 mg(Linked Group 1) 1430 (Given - Provider: Ayala Sheets RN) 4 mg, Intravenous, EVERY 30 MIN PRN, cinthia sea, vomiting, Administer over 2-5 Minutes, Starting 07/11/20 at 1400, For 2 doses, MAX total dose = 8 mg, including OR dosing. This is step 1 of nausea and vo miting management. If not resolved in 15 minutes, then go to step 2 [prochlorperazine (COMPAZINE) if ordered]. Irritant. For ordered IV doses 0.1-4 mg, give IV Push undiluted over 2-5 minutes., PACU/Phase II ondansetron (ZOFRAN-ODT) ODT tab 4 mg(Linked Group 1) 1430 (See Alternative - Provider: Ayala Sheets RN) 4 mg, Oral, EVERY 30 MIN PRN, nausea, vo miting, Starting 07/11/20 at 1400, For 2 doses, MAX total dose = 8 mg, including OR dosing. This is step 1 of nausea and vomiting management. If not resolved i n 15 minutes, then go to step 2 [prochlo rperazine (COMPAZINE) if ordered]. With dry hands, peel back foil backing and gently remove tablet. Do not push oral disintegrating tablet through foil backing. A dminister immediately on tongue and oral disintegrating tablet dissolves in seconds, then swallow with saliva. Liquid not required., PACU/Phase II ORAL Pain Medications - may administer as ordered by surgeon for take home use CONTINUOUS PRN, Starting e 07/11/20 at 1400, Until 07/11/20 at 1748, May administer oral pain medications as ordered by surgeon for take home use. Discontinue IV pain medication prior to administration of oral pain medication., PACU/Phase II oxyCODONE (ROXICODONE) tablet 5 mg 5 mg, Oral, ONCE PRN, other, pain contro l or improvement in physical function.??, Starting 07/11/20 at 1359, For 1 dose, Hold oral PRN dose for analgesic side effects. Notify provider to assess for u ncontrolled pain or analgesic side effec ts. Hold while on IV ACID REMOVER or with regular IV opioid dosing., Post-procedure Linked Groups Order Group 1: ondansetron (ZOFRAN-ODT) ODT tab 4 mgJump to med 4 mg, Oral, EVERY 30 MIN PRN, nausea, vo miting, Starting 07/11/20 at 1400, For 2 doses
MAX total dose = 8 mg, including OR dosing. This is step 1 of nausea and vomiting management. If not resolved in 15 minutes, the n go to step 2 [prochlorperazine (COMPAZINE) if ordered]. With dry hands, peel back foil backing and gently remove tablet. Do not push oral disintegr ating tablet through foil backing. Admin ister immediately on tongue and oral disintegrating tablet dissolves in seconds, then swallow with saliva. Liquid not required.
PACU/Phase II Or ondansetron (ZOFRAN) injection 4 mgJump to med 4 mg, Intravenous, EVERY 30 MIN PRN, cinthia sea, vomiting, Administer over 2-5 Minutes, Starting 07/11/20 at 1400, For 2 doses
MAX total dose = 8 mg, including OR dosing. This is step 1 of nause a and vomiting management. If not resolved in 15 minutes, then go to step 2 [prochlorperazine (COMPAZINE) if ordered]. Irritant. For ordered IV doses 0.1-4 mg, give IV Push undiluted over 2-5 minutes.
PACU/Phase II documented in this encounter Additional Health Concerns Assessment Noted Time PHQ-9 Depression Total Score: 2 06/01/2020 1:03 PM TREASURER documented as of this encounter Care Teams Pilot Control Operator Helper Relationship Specialty Start Date End Date Medardo Graf PCP - General Family Practice 11/15/18 [facility] [address] [place] [address] Noelle Khan Assigned Pulmonology 02/04/20 MD Yumiko Provider [facility] [address] [place] [address] Umu Duke MD MD category development analyst 03/16/20 [address] [address] [place] [address] Umu Duke MD Assigned OBGYN Provider 06/04/20 02/01/[address] [facility] [address] [place] [address] documented as of this encounter
--- OUTSIDE RECORDS SUMMARY | 2022-03-23 17:25 | XMS_ITS | Encounter Summary ---
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 [address] [place], [place] [address] Umu Duke MD MD size cutter 03/16/[address] [place] [address] [place], [place] [address] Umu Duke MD Assigned OBGYN Provider 06/04/20 02/01/[address] [place] [address] [place], [place] [address] documented as of this encounter
--- OUTSIDE RECORDS SUMMARY | 2022-03-23 17:25 | XMS_ITS | Encounter Summary ---
:1980 Author Organization [place] Address [facility] [place] [address] Care Team Providers Name Role Phone Medardo Graf Primary Care Provider Noelle Khan MD Unavailable [phone] Umu Duke MD Unavailable Encounter Details Date Type Department Care Team Description 03/23/2020 Telephone [facility] Nurse, [facility] [address] [facility] Profession al [facility] [address],[facility] [address] [place], [place] [phone] Social History Tobacco Use [...] been in contact with No / Unsure 03/21/2020 3:17 PM FISHER LAMPARA NET someone who was confirmed or suspected to have Coronavirus / COVID-19? documented as of this encounter Miscellaneous Notes Telephone Encounter - Fang Lockhart RN - 03/23/2020 12:47 PM CST Scheduled for 04/28/19. Lacey is accepting of this date. ER LAMPARA NET Telephone Encounter - Fang Lockhart RN - 03/23/2020 12:47 PM CST ----- Message from Lisy Hughes RN sent at 03/23/2020 12:15 PM FISHER LAMPARA NET ----- Regarding: Return call ER LAMPARA NET documented in this encounter Plan of Treatment Not on filedocumented as of this encounter Visit Diagnoses Not on filedocumented in this encounter Care Teams Rayon Coner Relationship Specialty Start Date End Date Medardo Graf PCP - General Family Practice 11/15/18 [facility] [address] [place] [address] Noelle Khan Assigned Pulmonology 02/04/20 MD Yumiko Provider [facility] [address] [place], [place] [phone] Umu Duke MD MD websphere message broker developer 03/16/20 [address] [facility] [address] [place], [place] [id number] documented as of this encounter
--- OUTSIDE RECORDS SUMMARY | 2022-03-23 17:25 | XMS_ITS | Encounter Summary ---
:1980 Author Organization [place] Address [facility] [place] [address] Care Team Providers Name Role Phone Medardo Graf Primary Care Provider Noelle Khan MD Unavailable [phone] Umu Duke MD Unavailable Umu Duke MD Unavailable Encounter Details Date Type Department Care Team Description 06/15/2020 Telephone [facility] Julien Novak [place] [address] [place] Profession [facility] [address],[facility] [address] [place], [place] [phone] Social History Tobacco Use [...] with No / Unsure 06/11/2020 8:16 AM MANAGER CARDIOLOGY someone who was confirmed or suspected to have Coronavirus / COVID-19? documented as of this encounter Plan of Treatment Not on filedocumented as of this encounter Visit Diagnoses Not on filedocumented in this encounter Additional Health Concerns Assessment Noted Time PHQ-9 Depression Total Score: 2 06/01/2020 1:03 PM MANAGER CARDIOLOGY documented as of this encounter Care Teams Administrative Liaison Relationship Specialty Start Date End Date Medardo Graf PCP - General Family Practice 11/15/18 [facility] [address] [place] [address] Noelle Khan Assigned Pulmonology 02/04/20 MD Yumiko Provider [facility] [address] [place], [place] [address] Umu Duke MD MD fingernail technician 03/16/[address] [facility] [place] [address] [place], [place] [id number] Umu Duke MD Assigned OBGYN Provider 06/04/20 02/01/[address] [facility] [place] [address] [place] [address] documented as of this encounter
--- OUTSIDE RECORDS SUMMARY | 2022-03-23 17:25 | XMS_ITS | Encounter Summary ---
:1980 Author Organization [place] Address [address] [place] [address]. [place] [address] Care Team Providers Name Role Phone Medardo Graf Primary Care Provider Noelle Khan MD Unavailable [phone] Umu Duke MD Unavailable Reason for Visit Reason Comments RECHECK ATELECTASIS Encounter Details Date Type Department Care Team Description 05/12/2020 Virtual Visit [facility] Noelle Khan [facility] MD Yumiko (Primary Dx) [facility] SPECIAL[facility] [address] [address] [facility] [phone] [place] [address] (Wo rk) Social History Tobacco Use Types Packs/Day Years [...] been in contact with No / Unsure 05/12/2020 11:54 AM DESKTOP PUBLISHER someone who was confirmed or suspected to have Coronavirus / COVID-19? documented as of this encounter Progress Notes Noelle Khan MD - 05/12/2020 1:30 PM CST Lacey is a 40 year old who is being evaluated via a billable telephone visit. What phone number would you like to be contacted at? [phone] How would you like to obtain your AVS? MyChart Phone call duration:9 minutes CC: follow up pulmonary nodule HPI: Ms. Lacey Nolasco is a 40 year old female who I met 1 year ago due to possible ILD- this ended upbeing atelectasis on prone imaging. Her PFTs were normal at that time. Due to significant exposures through her work in the , we are repeating a CT scan due to a 3mm pulmonary nodule that was id entified. Currently, the patient denies any respiratory symptoms and overall feels well. She has received the first dose of the COVID vaccine. She has no concerns today. CT scan: - on my read, lung parenchyma appears normal. I cannot visualize the RML nodule that was identified on the previous scan, formal read is forthcoming. A&P: - await formal radiology read for pulmonary nodule. If it is still present, we will repeat her scan in 1 year to document 2 years of stability. If it's resolved, no further scans needed. Noelle Khan MD TOP PUBLISHER documented in this encounter Plan of Treatment Not on filedocumented as of this encounter Visit Diagnoses Diagnosis Pulmonary nodules - Primary Other nonspecific abnormal finding of elicia ng field documented in this encounter Care Teams Transaction Processor Relationship Specialty Start Date End Date Medardo Graf PCP - General Family Practice 11/15/18 [facility] [address] [place], [place] [phone] Noelle Khan Assigned Pulmonology 02/04/20 MD Yumiko Provider [address] [address] Umu Duke MD MD dopster 03/16/20 [address] [facility] [address] [place], [place] [address] documented as of this encounter
--- OUTSIDE RECORDS SUMMARY | 2022-03-23 17:25 | XMS_ITS | Encounter Summary ---
:1980 Author Organization [place] Address [address] [place] [address] Care Team Providers Name Role Phone Medardo Graf Primary Care Provider Noelle Khan MD Unavailable Umu Duke MD Unavailable Encounter Details Date Type Department Care Team Description 03/21/2020 Travel Social History Tobacco Use Types Packs/Day [...] with No / Unsure 03/21/2020 3:17 PM PATCHER HELPER someone who was confirmed or suspected to have Coronavirus / COVID-19? documented as of this encounter Plan of Treatment Not on filedocumented as of this encounter Visit Diagnoses Not on filedocumented in this encounter Care Teams Stock Letterer Relationship Specialty Start Date End Date Medardo Graf PCP - General Family Practice 11/15/18 [facility] [address] [place], [place] [phone] Noelle Khan Assigned Pulmonology 02/04/20 MD Yumiko Provider [facility] [address] [place] [address] Umu Duke MD MD physician practice consultant 03/16/[address] [place] [address] [address] [place] [address] documented as of this encounter
--- OUTSIDE RECORDS SUMMARY | 2022-03-23 17:25 | XMS_ITS | Encounter Summary ---
:1980 Author Organization [place] Address [address] [facility] [place] [address] Care Team Providers Name Role Phone Medardo Graf Primary Care Provider Noelle Khan MD Unavailable [phone] Umu Dietrich MD Unavailable Reason for Visit Reason Comments Establish Care C/O bleeding between periods , HX Fibroids Encounter Details Date Type Department Care Team Description 06/01/2020 Office Visit [facility] Umu Dietrich Uterine le iomyoma, Women's Clinic MD [place] unspecified location [place] [address] (Primary Dx) [address] [facility] [phone] [facility] [address] [place], [place] (Work) [address] Social History Tobacco Use Types Packs/Day Years [...] been in contact with No / Unsure 06/01/2020 11:24 AM PRESSURE SUPERVISOR someone who was confirmed or suspected to have Coronavirus / COVID-19? documented as of this encounter Last Filed Vital Signs Vital Sign Reading Time Taken Comments Blood Pressure 112/76 06/01/2020 11:37 AM PRESSURE SUPERVISOR Pulse 72 06/01/2020 11:37 AM PRESSURE SUPERVISOR Temperature - - Respiratory Rate - - Oxygen Saturation - - Inhaled Oxygen Concentration - - Weight 84.8 kg (187 lb) 06/01/2020 11:37 AM PRESSURE SUPERVISOR Height 167.6 cm (5' 6) 06/01/2020 11:37 AM PRESSURE SUPERVISOR Body Mass Index 30.18 06/01/2020 11:37 AM PRESSURE SUPERVISOR documented in this encounter Progress Notes Umu Dietrich MD - 06/01/2020 11:30 AM CST Shamir presents for consultation on fibroid management options. She is a 40 yo P2002 who states shehas a history of endometriosis and dysmenorrhea and had endometrial ablation after her last delivery. She uses partner vasectomy for contraception. Following her endometrial ablation she had great results. However in the last 6 months or so she has had occasional intermenstrual bleeding. This has never been heavy but still bothers her. She also feels a pelvic fullness and occasional right sided pelvic pressure/pain. She had an ultrasound which noted uterine fibroids. She discussed treatment options with her patient service specialist which included oral contraceptive pills and hysterectomy. She is hoping there are alternative options as she does not want to continue on OCPs for a long time and hopes to avoid hysterectomy. Pelvic ultrasound: Uterus 8.3 x 6.1 x 6.9 cm, multiple fibroids present, 2 anterior and largest is posterior abutting the endometrium, but appears intramural. This measures 3.2 x 3.0 x 3.0 cm. Endometrium measured 3mm and was unremarkable. Both ovaries were normal. Labs: TSH 1.13 Pap NIL/negative HPV GC/CT neg/neg Past Medical History: Diagnosis Date ??? Complication [...] MD; Location: [facility] OR ??? LAPAROSCOPY DIAGNOSTIC (STATISTICIAN APPLIED) 04/23/2011 Procedure:LAPAROSCOPY DIAGNOSTIC (STATISTICIAN APPLIED); LAPAROSCOPY DIAGNOSTIC, pelvic exam under anesthesia, Fulguration Of Endometriosis; Surgeon:STEPHEN MAHAJAN; Location:[facility] OR ??? NECK SURGERY june 2010 ??? SPINE SURGERY cervical disc replacement ??? TONSILLECTOMY Family History Problem Relation Age of Onset ??? Heart Disease Father ??? Lung Cancer Cousin ??? Leukemia Maternal Aunt Physical exam: BP 112/76 Pulse 72 Ht 1.676 m (5' 6) Wt 84.8 kg (187 lb) No BMI 30.18 kg/m?? Gen'l: appears well Resp: non-labored CV: well perfused, regular rhythm Abd: soft, NT, ND no palpable masses Vulva: normal, no lesions Urethra: normal Vagina: pink, normal rugae, phsyiologic discharge present Cervix: parous, no lesion, no bleeding Uterus: mobile, NT, retroverted, 8-10 weeks in size Adnexa: no palpable masses, NT Rectum: Anus normal, no rectovaginal exam done Ultrasound reviewed as above Assessment/Plan 40 yo with AUB after endometrial ablation Pelvic pressure and pain Fibroid uterus with mild overall uterine enlargement - discussed abnormal bleeding and possible causes. Recommend EMB and patient agrees. This was done today (see below) - reviewed medical and procedural/surgical treatment options for uterine fibroids. Over all hers arenot very large; however, with her retroverted uterus and posterior fibroid this could be putting pressure on her colon and may be related to her symptoms. After our discussion, patient is most interested in UFE or Sonata treatment options. Recommend MRI so can review with our IR colleagues to see if asuitable candidate. - will call patient after MRI and biopsy results are back. On the day of this encounter at least 40 minutes of time was spent in consultation with [id number], review of historical information, examination, documentation and post visit activities including communication with other providers and coordination of patient care. This was separate from t nakul biopsy documented below. Umu Dietrich MD Endometrial Biopsy Time Out - Pause for the Cause Just before the procedure begins, through verbal and active participation of team members, verify: Initials Patient Name mip Patient Date of mip Procedure to be performed mip Site, laterality, level or multiples, noting patient position mip Relevant images or diagnostics available/displayed mip Implants, special equipment or special requirements mip Consent: Written consent signed and scanned into medical record. and Patient received and verbalizedunderstanding of discharge instructions Indication: metrorhagia Faculty: Srikanth Using a medium Graves speculum, the cervix was visualized. The cervix was prepped with Betadine. A single tooth tenaculum was applied to the anterior lip of the cervix. The endometrial pipelle was advanced through the cervix without difficulty and a sample collected. No additional pass was made. The tenaculum was removed from the cervix and the tenaculum site made hemostatic with pressure. EBL: scant Complications: none Pathology: EMB sample was sent to pathology. Tolerance of Procedure: Patient did tolerate the procedure well. Patient was instructed to call if she experiences any heavy bleeding, severe cramping, or abnormal vaginal discharge. May take ibuprofen 400-800 mg PO TID PRN or naproxen 500 mg PO BID for cramping. Will notify patient of results. Umu Dietrich MD SURE SUPERVISOR documented in this encounter Nursing Notes Hanna Ren LPN - 06/01/2020 11:30 AM CST Chief Complaint Patient presents with ??? Establish Care C/O bleeding between periods, HX Fibroids Hanna Ren LPN SURE SUPERVISOR documented in this encounter Plan of Treatment Not on filedocumented as of this encounter Procedures Procedure Name Priority Date/Time Associated Diagnosis Comme nts IN ENDOMETRIAL Routine 06/01/2020 12:21 Uterine leiomyoma, BIOPSY W/O CERVICAL PM PRESSURE SUPERVISOR unspecified location DILATION SURGICAL PATHOLOGY Routine 06/01/2020 12:19 Uterine leiomyoma, Results for this EXAM PM PRESSURE SUPERVISOR unspecified location procedu re are in the results section. documented in this encounter Results MR Pelvis (STATISTICIAN APPLIED) wo & w Contrast (06/11/2020 11:00 AM PRESSURE SUPERVISOR) Anatomical Region Laterality Modality Abdomen/Pelvis, SUBRAD MR BODY, UMP MR BODY, RAD MR Magnetic Resonance Specimen (Source) Anatomical Location Collection Method / Collectio n Time Received Time / Laterality Volume Impressions 06/11/2020 11:41 AM PRESSURE SUPERVISOR IMPRESSION: ??Multiple uterine fibroids as described above. Some of these are submucosal in location. These obscure the endometrial stripe, but no significant endometrial t hickening is appreciated. Nabothian cysts are noted in the cervix. Ovaries are unremarkable. CHRIS ALMONTE MD Narrative 06/11/2020 11:41 AM PRESSURE SUPERVISOR MR PELVIS (STATISTICIAN APPLIED) WITHOUT AND WITH CONTRAST ??06/11/2020 11:00 AM HISTORY: Uterine fibroid, symptomatic; c onsidering UFE. Uterine leiomyoma, unspecified location. TECHNIQUE: ??Multiplanar, multisequence imaging of the pelvis was performed with and without intravenous c ontrast. Patient injected intravenously with 8.5 mL Gadavist witho ut adverse event. FINDINGS: The uterus is enlarged and lob ulated due to multiple uterine fibroids. Uterus measures 10.6 x 6.3 x 7 .1 cm. Endometrial stripe is not well visualized due to deformity rel ated to the fibroids. A large fundal submucosal fibroid measures 2.7 x 2.4 x 2.5 cm on series 8, image 10 and series 3, image 18. An gerard tional posterior right uterine body fibroid is also submucosal measurin g 1.8 x 1.8 x 2.1 cm on series 8, image 13 and series 3, image 20. Eboni ral additional smaller fibroids are present throughout the uter ine myometrium. Most of these are intramural in location. Nabothian cy sts are present in the cervix which is otherwise unremarkable. Junctio nal zone not well visualized due to the multiple fibroids. The bladde r, urethra, vaginal vault and ovaries bilaterally are unremarkable. No free pelvic fluid. No enlarged pelvic lymph nodes. The imaged portions of bowel are unremarkable. No evidence of restricted diffusion involving the multiple uterine fibroids or other pelvi c organs. Following contrast administration, many of the fibroids enh ance very similar to the adjacent myometrium. The larger fundal s ubmucosal fibroid mentioned above shows slightly less enhancement wh en compared to the adjacent myometrium. Limited coronal imaging thro ugh the upper abdomen demonstrates normal-appearing kidneys wi thout hydronephrosis. Upper abdominal organs where visualized are ot herwise within normal limits. Procedure Note Chris Almonte MD - 06/11/2020Form atting of this note might be different from the original. MR PELVIS (STATISTICIAN APPLIED) WITHOUT AND WITH CONTRAS T 06/11/2020 11:00 AM HISTORY: Uterine fibroid, symptomatic; c onsidering UFE. Uterine leiomyoma, unspecified location. TECHNIQUE: Multiplanar, multisequence im aging of the pelvis was performed with and without intravenous c ontrast. Patient injected intravenously with 8.5 mL Gadavist witho ut adverse event. FINDINGS: The uterus is enlarged and lob ulated due to multiple uterine fibroids. Uterus measures 10.6 x 6.3 x 7 .1 cm. Endometrial stripe is not well visualized due to deformity rel ated to the fibroids. A large fundal submucosal fibroid measures 2.7 x 2.4 x 2.5 cm on series 8, image 10 and series 3, image 18. An gerard tional posterior right uterine body fibroid is also submucosal measurin g 1.8 x 1.8 x 2.1 cm on series 8, image 13 and series 3, image 20. Eboni ral additional smaller fibroids are present throughout the uter ine myometrium. Most of these are intramural in location. Nabothian cy sts are present in the cervix which is otherwise unremarkable. Junctio nal zone not well visualized due to the multiple fibroids. The bladde r, urethra, vaginal vault and ovaries bilaterally are unremarkable. No free pelvic fluid. No enlarged pelvic lymph nodes. The imaged portions of bowel are unremarkable. No evidence of restricted diffusion involving the multiple uterine fibroids or other pelvi c organs. Following contrast administration, many of the fibroids enh ance very similar to the adjacent myometrium. The larger fundal s ubmucosal fibroid mentioned above shows slightly less enhancement wh en compared to the adjacent myometrium. Limited coronal imaging thro ugh the upper abdomen demonstrates normal-appearing kidneys wi thout hydronephrosis. Upper abdominal organs where visualized are ot herwise within normal limits. IMPRESSION: Multiple uterine fibroids as described above. Some of these are submucosal in location. These obscure the endometrial stripe, but no significant endometrial t hickening is appreciated. Nabothian cysts are noted in the cervix. Ovaries are unremarkable. CHRIS ALMONTE MD Umu Dietrich MD IMG MRI ORDERABLES Surgical pathology exam (06/01/2020 12:19 PM PRESSURE SUPERVISOR) Component Value Ref Test Analysis Performed At [facility] Range Method Time Signature Copath Report Patient Name: SHAMIR NOLASCO MR#: [id number] Specimen #: [id number] Collected: 06/01/2020 Received: 06/02/2020 Reported: 06/05/2020 12:32 Ordering Phy(s): UMU DIETRICH For improved result formatting, select 'View Enhanced Report Format' under Linked Documents section. SPECIMEN(S): Endometrial biopsy FINAL DIAGNOSIS: ENDOMETRIUM, BIOPSY: - Rare endocervical gland, acute inflammatory cells and muci n. I have personally reviewed all specimens and/or slides, incl uding the listed special stains, and used them with my medical judgement to determine or confirm the final diagnosis. Electronically signed out by: Paul Matt M.D., PhD, [facility] CLINICAL HISTORY: 40 year old with uterine fibroids. GROSS: A: The specimen is received in formalin with proper patient identification, labeled EM BX. ??The specimen consists of a 1.2 x 1.0 x 0.2 cm aggregate of nazario- white gel atinous soft tissue. ??It is filtered, wrapped and entirely submitted in cassette A1. (Dictated by: Jessica SANCHEZ ASCP 06/02/2020 10:41 AM) MICROSCOPIC: Microscopic examination was performed. The technical component of this testing was completed at the [facility], with the professional compo nent [facility] [address] [place] [phone] ([phone]) CPT Codes: A: 17944-SB4 COLLECTION SITE: Client: [facility] Location: [facility] (B) Resident SMW Specimen Anatomical Collection Method Collection Time Receive d Time (Source) Location / / Volume Laterality 06/01/2020 12:19 06/02/2020 PM PRESSURE SUPERVISOR 10:10 AM PRESSURE SUPERVISOR Umu JONES - ZAMZAM Performing Organization Address City/State/ZIP Code Phon e Number COPATH documented in this encounter Visit Diagnoses Diagnosis Uterine leiomyoma, unspecified location - Primary Uterine leiomyoma, unspecified location documented in this encounter Additional Health Concerns Assessment Noted Time PHQ-9 Depression Total Score: 2 06/01/2020 1:03 PM PRESSURE SUPERVISOR documented as of this encounter Care Teams Tobacco Stemmer Machine Relationship Specialty Start Date End Date Medardo Graf PCP - General Family Practice 11/15/18 [facility] [address] [place] [address] Noelle Khan Assigned Pulmonology 02/04/20 MD Yumiko Provider [facility] [address] [place], [place] [phone] Umu Dietrich MD MD data analyst etl developer 03/16/[address] [place] [address] [address] [place], [place] [address] documented as of this encounter
--- OUTSIDE RECORDS SUMMARY | 2022-03-23 17:25 | XMS_ITS | Encounter Summary ---
:1980 Author Organization [place] Address [facility] [place] [address] Care Team Providers Name Role Phone Medardo Graf Primary Care Provider Noelle Khan MD Unavailable [phone] Umu Duke MD Unavailable Encounter Details Date Type Department Care Team Description 03/23/2020 Telephone [facility] Women's Clinic Nurse, U [facility] [address] [facility] Profession al [facility] [address],[facility] [address] [place], [place] [phone] Social History Tobacco Use [...] with No / Unsure 03/21/2020 3:17 PM CONTRACT NEGOTIATION SPECIALIST someone who was confirmed or suspected to have Coronavirus / COVID-19? documented as of this encounter Miscellaneous Notes Telephone Encounter - Fang Lockhart RN - 03/23/2020 12:10 PM CST Tried to reach Lacey but received voicemail. Left message to call back. ([facility] has AVE appts on 03/28/20) RACT NEGOTIATION SPECIALIST Telephone Encounter - Fang Lockhart RN - 03/23/2020 12:10 PM CST ----- Message from Umu Duke MD sent at 03/21/2020 9:04 PM CONTRACT NEGOTIATION SPECIALIST ----- Regarding: RE: referral A virtual visit is fine when she can be squeezed into my regular clinic schedule. I tried to squeezeher in during time I thought I would be available but of course that risks exactly what happened today. Umu Duke ----- Message ----- From: Fang Lockhart RN Sent: 03/21/2020 4:16 PM CONTRACT NEGOTIATION SPECIALIST To: Umu Duke MD, Fang Lockhart RN Subject: referral This is the patient that was scheduled for a consult with you at 3PM today. I explained surgery delay. She is very upset, as she doesn't live nearby and had waited for quite some time. She is asking if it would be possible for you to do a virtual visit with her. Please let me know what works for you, and I can reach out to her to facilitate. Thank you!!! Fang RN RACT NEGOTIATION SPECIALIST documented in this encounter Plan of Treatment Not on filedocumented as of this encounter Visit Diagnoses Not on filedocumented in this encounter Care Teams Manufacturing Automation Engineer Relationship Specialty Start Date End Date Medardo Graf PCP - General Family Practice 11/15/18 [facility] [address] [place] [address] Noelle Khan Assigned Pulmonology 02/04/20 MD Yumiko Provider [address] [address] Umu Duke MD MD supervisor tubing 03/16/[address] [phone] documented as of this encounter
--- OUTSIDE RECORDS SUMMARY | 2022-03-23 17:25 | XMS_ITS | Encounter Summary ---
:1980 Author Organization [place] Address [facility] [place] [address] Care Team Providers Name Role Phone Medardo Graf Primary Care Provider Noelle Khan MD Unavailable [phone] Umu Duke MD Unavailable Encounter Details Date Type Department Care Team Description 03/16/2020 Telephone [facility] Women's Clinic Nurse, U [facility] [address] [facility] Profession al [facility] [address],[facility] [address] [place], [place] [phone] Social History Tobacco Use [...] Assigned at Date Recorded Not on file documented as of this encounter Miscellaneous Notes Telephone Encounter - Fang Lockhart RN - 03/16/2020 2:30 PM CST Images from the original note were not included. Called Lacey. She will come on Wednesday 03/21 at 3 PM. Records are viewable in care everywhere Umu Duke MD Faragher, Cheri, LEELA ?? Hi I could see her in the later afternoon on FridayMarch 21 or . ??I have surgeries both thosedays but they should be done by 2:00 at the latest. ??If that works for her can you put it on my [employer] and [employer] schedule? Thanks Umu Duke Previous Messages ----- Message ----- From: Fang Lockhart RN Sent: 03/16/2020 ??10:38 AM RESTAURANT KITCHEN MANAGER To: Umu Duke MD Subject: FW: New Fibroid Appointment ? Let me know if there would be an earlier time that would be convenient for you. ??I don't see anything sooner with Dr Klein, either. Thank you Fang SWENSON ----- Message ----- From: Anitra George Sent: 03/16/2020 ??10:29 AM RESTAURANT KITCHEN MANAGER To: [facility] Subject: New Fibroid Appointment ? Good Morning! I currently have patient scheduled with Dr. Duke on 06/01 at 9:00a for a consult for 2nd opinion ontreatment options regarding her multiple fibroids. Her current options from her doctor at [facility] are total hysterectomy or control pills to potentially stop growth. Patient stated that dell had issues with pain and bleeding the past 3 to 4 months. I currently have her on the cancellation list, wondering if Dr. Duke would suggest another MD for her to see for sooner or if Dr. Duke would be willing to add her on sooner? Patient is open to a call back from a nurse to discuss or please let me know if there are other options and I can contact her back with the information. Thanks so much for your help! Anitra Freed [facility] Referrals AURANT KITCHEN MANAGER documented in this encounter Plan of Treatment Not on filedocumented as of this encounter Visit Diagnoses Not on filedocumented in this encounter Care Teams Certified Executive Chef Relationship Specialty Start Date End Date Medardo Graf PCP - General Family Practice 11/15/18 [facility] [address] [place] [address] Noelle Khan Assigned Pulmonology 02/04/20 MD Yumiko Provider [facility] [address] [place], [place] [phone] Umu Duke MD MD dehydration unit operator 03/16/20 [address] [facility] [address] [place] [address] documented as of this encounter
--- OUTSIDE RECORDS SUMMARY | 2022-03-23 17:25 | XMS_ITS | Encounter Summary ---
:1980 Author Organization [place] Address On license of [facility] [place] [address] Care Team Providers Name Role Phone Medardo Graf Primary Care Provider Noelle Khan MD Unavailable [phone] Umu Duke MD Unavailable Umu Duke MD Unavailable Reason for Visit Reason Onset Date Comments Schedule Surgery 06/15/2020 Encounter Details Date Type Department Care Team Description 06/15/2020 Telephone [facility] Women's Genevieve Novak Schedule Surgery [facility] [place] [address] [facility] Professional Bldg [facility] [address],[place] [address] [place], [place] [phone] Social History Tobacco Use [...] with No / Unsure 06/11/2020 8:16 AM SUPERVISOR CIGAR PROCESSING someone who was confirmed or suspected to have Coronavirus / COVID-19? documented as of this encounter Miscellaneous Notes Telephone Encounter - Julien Novak - 06/15/2020 10:21 AM CST Confirmed surgery date, time and location, 07/11/20 arrival time at 10:45a.m with nothing to eat eight hours before scheduled surgery time, clear liquids up to two hours before scheduled surgery time, h&p required, COVID testing 96 hours prior, map and letter mailed out. Robot Programmer to complete the following rosario: CHECKLIST Google Calendar : Yes Resident notified: Not Applicable Clinic schedule blocked: Not Applicable Patient notified:Yes Pre op information sent: Yes Given to patient over the phone.Yes Comments: RVISOR CIGAR PROCESSING documented in this encounter Plan of Treatment Not on filedocumented as of this encounter Visit Diagnoses Not on filedocumented in this encounter Additional Health Concerns Assessment Noted Time PHQ-9 Depression Total Score: 2 06/01/2020 1:03 PM SUPERVISOR CIGAR PROCESSING documented as of this encounter Care Teams Human Resources Training Manager Relationship Specialty Start Date End Date Medardo Graf PCP - General Family Practice 11/15/18 [facility] [address] [place] [address] Noelle Khan Assigned Pulmonology 02/04/20 MD Yumiko Provider [facility] [address] [place], [place] [address] Umu Duke MD MD manufacturing supervisor 2nd shift 03/16/[address] [place], [place] [address] Umu Duke MD Assigned OBGYN Provider 06/04/20 02/01/[address] [place], [place] [address] documented as of this encounter
--- OUTSIDE RECORDS SUMMARY | 2022-03-23 17:25 | XMS_ITS | Encounter Summary ---
:1980 Author Organization [place] Address [address] [facility] [place] [address] Care Team Providers Name Role Phone Medardo Graf Primary Care Provider Noelle Khan MD Unavailable [phone] Umu Duke MD Unavailable Umu Duke MD Unavailable Reason for Visit Auth/Cert Specialty Diagnoses / Procedures Referred By Contact Refer red To Contact Surgery Diagnoses Submucous leiomyoma of uterus Submucous leiomyoma of uterus [D25.0] Ur Periop Procedures HC HYSTEROSCOPY W ENDOMETRIAL BX/POLYPECTOMY W/WO D&C HYSTEROSCOPY, WITH DILATION AND CURETTAGE OF UTERUS USING MORCELLATOR, REMOVAL OF SUBMUCOSAL FIBROIDS [address] [facility] [place] [address] Phone: Fax: Referral ID Status Reason Start Date Expiration Date Visits Requ ested Visits Authorized [id number] 1 1 Encounter Details Date Type Department Care Team Description 07/11/2020 Surgery [facility] Umu Duke, HYSTEROSCOPY, WITH PeriOp Services DILATION AND CURETTAGE [address] [facility] [address] [place] OF UTERUS USING [place] [address] 300 MORCELLATOR, REMOVAL OF [phone] [place], [place] SUBMUCOSAL F IBRO[place] [address] Surgery Details Date/Time Status Location OR Service Patient Case Case Traum a Class Class Type Case? 07/11/20 12:25 Posted UR OR UR OR Gynecology Same Day PM 07 Surgery Panel 1 Procedure LRB Anes Op Region Wound Class Commen ts HYSTEROSCOPY, WITH DILATION AND N/A MAC Uterus II-C lean Contaminated CURETTAGE OF UTERUS USING MORCELLATOR, REMOVAL OF SUBMUCOSAL FIBROIDS Surgeon Surgeon Role Service Panel Umu Duke MD Primary Gynecology 1 Special Needs DOS test, approved. Patient aware.emf3/2 6Patient in [place] till 07/10/20 documented in this encounter Social History Tobacco [...] Sign Reading Time Taken Comments Blood Pressure 120/81 07/11/2020 10:00 AM CDT Pulse 70 07/11/2020 10:00 AM CDT Temperature 37.1 ??C (98.8 ??F) 07/11/2020 10:00 AM CDT Respiratory Rate 18 07/11/2020 10:00 AM CDT Oxygen Saturation 97% 07/11/2020 10:00 AM CDT Inhaled Oxygen Concentration - - [...] To contact a doctor, call or: ??? [phone] and ask for the Resident Fitness/Wellness Director for: ___OBGYN resident (answered 24 hours a day) ??? Emergency Department: [facility]: [phone] [facility]: [phone] Rev. 01/2014 documented in this encounter Medications [...] curettage under ultrasound guidance Surgeon: Dr. Duke Automated Logistics Specialist: Che Rodgers, PGY-4, Stiven Escalera, MS-3 Anesthesia: [...] Ref Test Analysis Performed At [facility] [employer] Range Method Time Signature Copath Report Patient Name: SHAMIR NOLASCO MR#: [id number] Specimen #: [id number] Collected: 07/11/2020 Received: 07/11/2020 Reported: 07/13/2020 23:37 [...] Electronically signed out by: Cristel Rudolph M.D, [facility] CLINICAL HISTORY: The patient is a 40-year-old woman with uterine fibroids. ?? Procedure: operative hysteroscopy with morcellation, dilation and curettage under ultrasound cristhian ann GROSS: The specimen is received in formalin in a mesh bag with prop er patient identification, labeled uterine myoma. ??The specimen consists of a 5.0 x 4.5 x 1.0 cm aggr egate of nazario- white soft tissue fragments. ??It is wrapped and entirely submitted in cassettes A1- A3. (Dictate d by: Jessica SANCHEZ [facility] 07/12/2020 01:32 PM) MICROSCOPIC: Microscopic examination is performed. The technical component of this testing was completed at the [facility], with the professional compo nent performed at the [facility], [address] [place] [phone] ([phone]) CPT Codes: A: 74507-LT2 COLLECTION SITE: Client: [facility] Location: UROR (B) Specimen (Source) Anatomical Collection Method Collection Time Re ceived Time Location / / Volume Laterality Tissue specimen UTERINE STRUCTURE 07/11/2020 1:36 PM (specimen) / Unknown CDT Umu JONES - ZAMZAM AP Performing Organization Address City/State/ZIP Code Phon e Number [place]ATH Glucose by meter (07/11/2020 11:44 AM CDT) athologist Signature Glucose 83 70 - 99 07/11/2020 POINT OF CARE mg/dL 12:13 PM CDT TEST, GLUCOSE Specimen Anatomical Collection Method Collection Time Receive d Time (Source) Location / / Volume Laterality 07/11/2020 11:44 07/11/2020 AM CDT 12:13 PM CDT Umu JONES - ZAMZMA POCT Performing Organization Address City/State/ZIP Code Phon e Number FV POINT OF CARE TEST, GLUCOSE POINT OF CARE TEST, GLUCOSE Hemoglobin (07/11/2020 10:34 AM CDT) P athologist Signature Hemoglobin 14.1 11.7 - 15.7 07/11/2020 [facility] g/dL 10:46 AM CDT [facility] Specimen Anatomical Collection Method Collection Time Receive d Time (Source) Location / / Volume Laterality Blood specimen 07/11/2020 10:34 1 (specimen) AM CDT 10:35 AM CDT Umu Duke MD LAB - BLOOD ORDERABLES Performing Organization Address City/[facility]/ZIP Code Phon e Number [address] [address] [facility] HCG qualitative Blood (07/11/2020 10:34 AM CDT) [facility] Method Time Signature HCG Qualitative Negative NEG^Negat 07/11/2020 [facility] Serum sidra 11:47 AM CDT [facility] Comment: This test is for screening purposes. ??R esults should be interpreted along with the clinical picture. ??Confirmation te sting is available if warranted by ordering [id number], HCG Quantitative Pregna ncy. Specimen Anatomical Collection Method Collection Time Receive d Time (Source) Location / / Volume Laterality Blood specimen 07/11/2020 10:34 1 (specimen) AM CDT 10:35 AM CDT Umu Duke MD LAB - BLOOD ORDERABLES Performing Organization Address City/[facility] Code Phon e Number [address] [address] [facility] ABO/Rh type and screen (07/11/2020 10:34 AM CDT) [facility] Method Time Signature ABO O 07/11/2020 [facility] 11:38 AM CDT [facility] RH(D) Pos [facility] Antibody Neg 07/11/2020 [facility] Screen 11:38 AM CDT [facility] Test Valid [facility] 07/11/2020 [facility] 10:56 AM CDT [facility] Specimen 07/14/2020 07/11/2020 [facility] Expires 10:56 AM CDT [facility] Specimen Anatomical Collection Method Collection Time Receive d Time (Source) Location / / Volume Laterality Blood specimen 07/11/2020 10:34 1 (specimen) AM CDT 10:35 AM CDT Umu Duke MD LAB - BLOOD BANK TEST ORDER Performing Organization Address City/State/ZIP Code Phon e Number [facility] [address] [place] [address] [facility] Asymptomatic SARS-CoV-2 COVID-19 Virus (Coronavirus) by PCR (07/11/2020 10:15 AM CDT) [facility] Method Time Signature SARS-CoV-2 Nasopharyngeal 07/11/2020 [facility] Virus 10:56 AM [facility] Specimen T [facility] SARS-CoV-2 NEGATIVE 07/11/2020 [facility] PCR Result 11:31 AM [facility] Comment: SARS-CoV2 (COVID-19) RNA not de tected, presumed negative. SARS-CoV-2 PCR Comment (Note) 07/11/2020 11 :31 AM CDT [facility] Comment: Testing was performed using the [...] exposure or clinical pr esentation suggests COVID-19. [facility] [employer] are certi fied under the Clinical Laboratory [...] Organization Address City/State/ZIP Code Phon e Number [place] [id number] [place] [address] [facility] LAB RESULT - HIM SCAN (07/03/2020 12:00 AM CDT) Specimen (Source) Anatomical Location Collection Method / Collectio n Time Received Time / Laterality Volume 07/03/2020 Narrative This result has an attachment that is no t available. Provider Outside NON-BEAKER LAB TESTING documented in this encounter Visit Diagnoses Diagnosis Submucous leiomyoma of uterus - Primary Submucous leiomyoma of uterus Submucous leiomyoma of uterus documented in this [...] tablet 975 mg 975 mg, Oral, ONCE, 07/11/20 at 1900, For 1 dose, Administer 6 hours after pre-op dose, if given. Maximum acetaminophen dose from all sources = 75 mg/kg/day not to exceed 4 grams/day., Post-procedure ibuprofen (ADVIL/MOTRIN) tablet 800 mg 800 mg, Oral, ONCE, 07/11/20 at 1900, For 1 dose, Administer when patient tolerating oral intake AND 6 hours after last ketorolac (TORADOL) dose, if given. Give with food., Post-procedure midazolam (VERSED) injection 2 mg (COMPLETED) 1201 (Given - Provider: Michaela Sepulveda RN) 2 mg, Intravenous, ONCE, 07/11/20 at [...] 25-50 mcg 1437 (Given - Provider: Ayala Sheets RN)1444 (Given - Provider: Ayala Sheets RN) 25-50 mcg, Intravenous, EVERY 2 MIN PRN, other, acute pain while in PACU., Starting e 07/11/20 at 1358, MAX cumulative dose = 250 mcg. Use fentaNYL (SUBLIMAZE) initially, as a short acting agent for ac zach pain control. If insufficient, or a longer [...] 60 bpm.?, Administer over 5-10 Minutes, Starting e 07/11/20 a t 1358, Max cumulative dose [...] NOT obstetric patie nt CONTINUOUS PRN, Starting 07/11/20 at 1359, Until 07/11/20 at 1748, Post-procedure ondansetron (ZOFRAN) injection 4 mg(Linked Group 1) 1430 (Given - Provider: Ayala Sheets, LEELA) 4 mg, Intravenous, EVERY 30 MIN PRN, [...] for take home use CONTINUOUS PRN, Starting 07/11/20 at 1400, Until 07/11/20 at 1748, May administer oral pain medications as ordered by surgeon for take home use. Discontinue IV pain medication prior to administration of oral pain medication., PACU/Phase II oxyCODONE (ROXICODONE) tablet 5 mg 5 mg, Oral, ONCE PRN, other, pain contro l or improvement in physical function.??, Starting Fri07/11/20 at 1359, For 1 dose, Hold oral PRN dose for analgesic side effects. Notify provider to assess for u ncontrolled pain or analgesic side effec ts. Hold while on IV FLAT SHEET MAKER or with regular IV opioid dosing., Post-procedure Linked Groups Order Group 1: ondansetron (ZOFRAN-ODT) ODT tab 4 mgJump to med 4 mg, Oral, EVERY 30 MIN PRN, nausea, vo miting, Starting Fri07/11/20 at 1400, For 2 doses
MAX total [...] sea, vomiting, Administer over 2-5 Minutes, Starting Fri07/11/20 at 1400, For 2 doses
MAX total [...] Depression Total Score: 2 06/01/2020 1:03 PM DYNAMITE SHOOTER documented as of this encounter Care Teams Prototype Special Build Relationship Specialty Start Date End Date Medardo Graf PCP - General Family Practice 11/15/18 [facility] [address] [place] [address] Noelle Khan Assigned Pulmonology 02/04/20 MD Yumiko Provider [facility] [address] [place] [address] Umu Duke MD MD hand marker 03/16/[address] [place] [phone] Umu Duke MD Assigned OBGYN Provider 06/04/20 02/01/[address] [place] [phone] documented as of this encounter
--- OUTSIDE RECORDS SUMMARY | 2022-03-23 17:25 | XMS_ITS | Encounter Summary ---
:1980 Author Organization [place] Address [facility] [place] [address] Care Team Providers Name Role Phone Medardo Graf Primary Care Provider Noelle Khan MD Unavailable [phone] Umu Duke MD Unavailable Umu Duke MD Unavailable Encounter Details Date Type Department Care Team Description 07/25/2020 Telephone [facility] Umu Duke MD [facility] [address] [place] [address] [place] [address] [facility] [place] [phone] Social History Tobacco Use Types Packs/Day [...] this encounter Miscellaneous Notes Telephone Encounter - Umu Duke MD - 07/25/2020 12:13 PM CDT I spoke with Lacey who is recovering from surgery. She had bleeding longer than she had expected after the procedure and she has had some sharp shooting pains, they haven't continued but are occasional. Will monitor symptoms and has follow-up scheduled. Umu Duke MD documented in this encounter Plan of Treatment Not on filedocumented as of this encounter Visit Diagnoses Not on filedocumented in this encounter Additional Health Concerns Assessment Noted Time PHQ-9 Depression Total Score: 2 06/01/2020 1:03 PM FIELD TECH documented as of this encounter Care Teams Movie Writer Relationship Specialty Start Date End Date Medardo Graf PCP - General Family Practice 11/15/18 [facility] [address] [place] [address] Noelle Khan Assigned Pulmonology 02/04/20 MD Yumiko Provider [facility] [address] [place] [address] Umu Duke MD MD press cutter 03/16/[address] [place] [address] [place] [address] Umu Duke MD Assigned OBGYN Provider 06/04/20 02/01/22 [address] [facility] [place] [place], [place] [address] documented as of this encounter
--- OUTSIDE RECORDS SUMMARY | 2022-03-23 17:25 | XMS_ITS | Encounter Summary ---
:1980 Author Organization [place] Address [address] [place] [address] Care Team Providers Name Role Phone Medardo Graf Primary Care Provider Noelle Khan MD Unavailable [phone] Umu Duke MD Unavailable Umu Duke MD Unavailable Encounter Details Date Type Department Care Team Description 02/28/2021 Travel Social History Tobacco Use Types Packs/Day [...] with No / Unsure 02/28/2021 2:08 PM PROGRAM DIRECTOR SCOUTING someone who was confirmed or suspected to have Coronavirus / COVID-19? documented as of this encounter Plan of Treatment Not on filedocumented as of this encounter Visit Diagnoses Not on filedocumented in this encounter Additional Health Concerns Assessment Noted Time PHQ-9 Depression Total Score: 2 06/01/2020 1:03 PM PROGRAM DIRECTOR SCOUTING documented as of this encounter Care Teams Coremaking Machine Operator Relationship Specialty Start Date End Date HomarMedardo PCP - General Family Practice 11/15/18 [facility] [address] [place] [address] Noelle Khan Assigned Pulmonology 02/04/20 MD Yumiko Provider [facility] [address] [place], [place] [address] Umu Duke MD MD shower doors and panels fabricator 03/16/[address] [place] [place], [place] [address] Umu Duke MD Assigned OBGYN Provider 06/04/20 02/01/[address] [place], [place] [address] documented as of this encounter
--- OUTSIDE RECORDS SUMMARY | 2022-03-23 17:25 | XMS_ITS | Encounter Summary ---
:1980 Author Organization [place] Address [address] [facility] [place] [address] Care Team Providers Name Role Phone Medardo Graf Primary Care Provider Noelle Khan MD Unavailable [phone] Umu Duke MD Unavailable Umu Duke MD Unavailable Encounter Details Date Type Department Care Team Description 06/13/2020 Prep for Procedure [facility] Umu Duke Subm ucous leiomyoma [facility] MD Hodan of uterus (Primary [place] [address]x) [address] [place] [address] [address] [facility] [address] [place], [place] (Work) [phone] Social History Tobacco Use [...] with No / Unsure 06/11/2020 8:16 AM FATS AND OILS LOADER someone who was confirmed or suspected to have Coronavirus / COVID-19? documented as of this encounter Plan of Treatment Not on filedocumented as of this encounter Visit Diagnoses Diagnosis Submucous leiomyoma of uterus - Primary documented in this encounter Additional Health Concerns Assessment Noted Time PHQ-9 Depression Total Score: 2 06/01/2020 1:03 PM FATS AND OILS LOADER documented as of this encounter Care Teams Vending Machine Operator Relationship Specialty Start Date End Date Medardo Graf PCP - General Family Practice 11/15/18 [facility] [address] [place] [address] Noelle Khan Assigned Pulmonology 02/04/20 MD Yumiko Provider [facility] [address] [place], [place] [phone] Umu Duke MD MD shop superintendent 03/16/[address] [place] [address] [place], [place] [phone] Umu Duke MD Assigned OBGYN Provider 06/04/20 02/01/[address] [place] [address] [place], [place] [phone] documented as of this encounter
--- OUTSIDE RECORDS SUMMARY | 2022-03-23 17:25 | XMS_ITS | Encounter Summary ---
:1980 Author Organization [place] Address [address] [facility] [place] [address] Care Team Providers Name Role Phone Medardo Graf Primary Care Provider Noelle Khan MD Unavailable [phone] Umu Duke MD Unavailable Reason for Visit Reason Comments RECHECK 2 nd opinion fibroid consult Encounter Details Date Type Department Care Team Description 03/21/2020 [facility] [place] Umu Duke (2 nd opinion Health/[facility] MD Hodan fibroid consult) Visit [place] [address] [place] [address] [facility] [address] [place] [address] [place] [address],[facility] [address] [place], [place] (Work) [phone] Social History Tobacco Use [...] with No / Unsure 03/21/2020 3:17 PM NAIL MAKER someone who was confirmed or suspected to have Coronavirus / COVID-19? documented as of this encounter Last Filed Vital Signs Vital Sign Reading Time Taken Comments Blood Pressure 109/75 03/21/2020 3:29 PM NAIL MAKER Pulse 99 03/21/2020 3:29 PM NAIL MAKER Temperature - - Respiratory Rate - - Oxygen Saturation - - Inhaled Oxygen Concentration - - Weight 83.9 kg (185 lb) 03/21/2020 3:29 PM NAIL MAKER Height 167.6 cm (5' 6) 03/21/2020 3:29 PM NAIL MAKER Body Mass Index 29.86 03/21/2020 3:29 PM NAIL MAKER documented in this encounter Progress Notes Umu Duke MD - 03/21/2020 3:00 PM CST Patient not able to be seen because I was not able to leave the OR to see her. Will reschedule. No Charge for this visit. Umu Duke MD MAKER documented in this encounter Nursing Notes Hanna Ren LPN - 03/21/2020 3:00 PM CST Chief Complaint Patient presents with ??? RECHECK 2 nd opinion fibroid consult Hanna Ren LPN MAKER documented in this encounter Plan of Treatment Not on filedocumented as of this encounter Visit Diagnoses Diagnosis ERRONEOUS ENCOUNTER--DISREGARD - Primary documented in this encounter Care Teams Dairy Nutritionist Relationship Specialty Start Date End Date Medardo Graf PCP - General Family Practice 11/15/18 [facility] [address] [place] [address] Noelle Khan Assigned Pulmonology 02/04/20 MD Yumiko Provider [facility] [address] [place] [address] Umu Duke MD MD cinetechnician 03/16/20 [address] [address] [place] [address] documented as of this encounter
--- OUTSIDE RECORDS SUMMARY | 2022-03-23 17:25 | XMS_ITS | Encounter Summary ---
:1980 Author Organization [place] Address [address] [place] [address] Care Team Providers Name Role Phone Medardo Graf Primary Care Provider Noelle Khan MD Unavailable Umu Duke MD Unavailable Encounter Details Date Type Department Care Team Description 06/01/2020 Travel Social History Tobacco Use Types Packs/Day [...] with No / Unsure 06/01/2020 11:24 AM CAUSTIC PURIFICATION OPERATOR someone who was confirmed or suspected to have Coronavirus / COVID-19? documented as of this encounter Plan of Treatment Not on filedocumented as of this encounter Visit Diagnoses Not on filedocumented in this encounter Additional Health Concerns Assessment Noted Time PHQ-9 Depression Total Score: 2 06/01/2020 1:03 PM CAUSTIC PURIFICATION OPERATOR documented as of this encounter Care Teams Recreation Attendant Relationship Specialty Start Date End Date Medardo Graf PCP - General Family Practice 8/4/19 [facility] [address] [place] [address] Noelle Khan Assigned Pulmonology 02/04/20 MD Yumiko Provider [facility] [address] [place] [address] Umu Duke MD MD rail setter 03/16/[address] [place] [address] [place] [address] [place], [place] [phone] documented as of this encounter
--- OUTSIDE RECORDS SUMMARY | 2022-03-23 17:25 | XMS_ITS | Encounter Summary ---
:1980 Author Organization [place] Address [address] [place] [address] Care Team Providers Name Role Phone Medardo Graf Primary Care Provider Encounter Details Date Type Department Care Team Description 12/30/2019 Travel Social History Tobacco Use Types Packs/Day [...] been in contact with No / Unsure 12/30/2019 6:55 PM CDT someone who was confirmed or suspected to have Coronavirus / COVID-19? documented as of this encounter Plan of Treatment Not on filedocumented as of this encounter Visit Diagnoses Not on filedocumented in this encounter Care Teams Airplane Pilot Relationship Specialty Start Date End Date Medardo Graf PCP - General Family Practice 11/15/[address] [facility] [address] [place] [address] documented as of this encounter
--- OUTSIDE RECORDS SUMMARY | 2022-03-23 17:25 | XMS_ITS | Encounter Summary ---
:1980 Author Organization [place] Address [facility] [place] [address] Care Team Providers Name Role Phone Medardo Graf Primary Care Provider Noelle Khan MD Unavailable [phone] Umu Duke MD Unavailable Umu Duke MD Unavailable Reason for Visit Reason Onset Date Comments Schedule Surgery 06/14/2020 Encounter Details Date Type Department Care Team Description 06/14/2020 Telephone [facility] [place] Novak Schedule Surgery Clinic [place] [address] [facility] Professional Bldg [facility] [address],[place] [address] [place], [place] [phone] Social History Tobacco Use [...] with No / Unsure 06/11/2020 8:16 AM CARDIOLOGY NURSE PRACTITIONER someone who was confirmed or suspected to have Coronavirus / COVID-19? documented as of this encounter Miscellaneous Notes Telephone Encounter - Julien Novak - 06/14/2020 9:49 AM CST lvm for patient to call surgery scheduling. IOLOGY NURSE PRACTITIONER documented in this encounter Plan of Treatment Not on filedocumented as of this encounter Visit Diagnoses Not on filedocumented in this encounter Additional Health Concerns Assessment Noted Time PHQ-9 Depression Total Score: 2 06/01/2020 1:03 PM CARDIOLOGY NURSE PRACTITIONER documented as of this encounter Care Teams Avionics Integration Engineer Relationship Specialty Start Date End Date Medardo Graf PCP - General Family Practice 11/15/18 [facility] [address] [place] [address] Noelle Khan Assigned Pulmonology 02/04/20 MD Yumiko Provider [facility] [address] [place] [address] Umu Duke MD MD team assembly line machine operator 03/16/[address] [place] [phone] Umu Duke MD Assigned OBGYN Provider 06/04/20 02/01/[address] [place] [address] 300 [place], [place] [address] documented as of this encounter
--- OUTSIDE RECORDS SUMMARY | 2022-03-23 17:25 | XMS_ITS | Encounter Summary ---
:1980 Author Organization [facility] Address [address] [place] [id number] Care Team Providers Name Role Phone Medardo Graf Primary Care Provider Noelle Khan MD Unavailable [phone] Umu Duke MD Unavailable Umu Duke MD Unavailable Reason for Visit Reason Comments Chest Pain Encounter Details Date Type Department Care Team Description 02/28/2021 Emergency [facility] Edward Saleem, Chest pain Emergency Dept PA-C [address] [facility] [place] [phone] [phone] [address] [place] [address] (Wo rk) Social History Tobacco Use Types [...] with No / Unsure 02/28/2021 2:08 PM BILLET CUTTER someone who was confirmed or suspected to have Coronavirus / COVID-19? documented as of this encounter Last Filed Vital Signs Vital Sign Reading Time Taken Comments Blood Pressure 122/84 02/28/2021 2:12 PM BILLET CUTTER Pulse 76 02/28/2021 2:12 PM BILLET CUTTER Temperature 36.5 ??C (97.7 ??F) 02/28/2021 2:12 PM BILLET CUTTER Respiratory Rate 16 02/28/2021 4:52 PM BILLET CUTTER Oxygen Saturation 97% 02/28/2021 4:30 PM BILLET CUTTER Inhaled Oxygen Concentration - - Weight 77.1 kg (170 lb) 02/28/2021 2:12 PM BILLET CUTTER Height 165.1 cm (5' 5) 02/28/2021 2:12 PM BILLET CUTTER Body Mass Index 28.29 02/28/2021 2:12 PM BILLET CUTTER documented in this encounter Discharge Instructions Discharge InstructionsEdward Hidalgo PA-C - 02/28/2021 4:46 PM BILLET CUTTER Discharge Instructions Chest Pain You have been seen today for chest pain or discomfort. At this time, your provider has found no signs that your chest pain is due to a serious or life- threatening condition, (or you have declined more testing and/or admission to the hospital). However, sometimes there is a serious problem that does not show up right away. Your evaluation today may not be complete and you may need further testing and evaluation. Generally, every Emergency Department visit should have a follow-up clinic visit with either a primary or a specialty clinic/provider. Please follow-up as instructed by your emergency provider today. Return to the Emergency Department if: Your chest pain changes, gets worse, starts to happen more often, or comes with less activity. You are newly short of breath. You get very weak or tired. You pass out or faint. You have any new symptoms, like fever, cough, numb legs, or you cough up blood. You have anything else that worries you. Until you follow-up with your regular provider, please do the following: Take one aspirin daily unless you have an allergy or are told not to by your provider. If a stress test appointment has been made, go to the appointment. If you have questions, contact your regular provider. Follow-up with your regular provider/clinic as directed; this is very important. If you were given a prescription for medicine here today, be sure to read all of the information (including the package insert) that comes with your prescription. This will include important information about the medicine, its side effects, and any warnings that you need to know about. The pharmacist who fills the prescription can provide more information and answer questions you may have about the medicine. If you have questions or concerns that the pharmacist cannot address, please call or return to the Emergency Department. Remember that you can always come back to the Emergency Department if you are not able to see your regular provider in the amount of time listed above, if you get any new symptoms, or if there is anything that worries you. ET CUTTER documented in this encounter Medications at Time of Discharge Medication Sig Dispensed Refills Start Date End Date levothyroxine 50 mcg daily 0 04/09/2019 (SYNTHROID/LEVOTHROID) 50 MCG tablet norgestrel-ethinyl Take 1 tablet by 0 03/15/2020 estradiol (LO/OVRAL) 0.3-30 mouth MG-MCG tablet valACYclovir (VALTREX) 500 0 8 MG tablet documented as of this encounter ED Notes Bisi Munoz RN - 02/28/2021 2:09 PM CST Pt tested positive for COVID 02/23. Pt is fully vaccinated, and has been doing well. Suddenly last night pt c/o a burning pain in her chest. Endorses some shortness of breath. ET CUTTER Edward Hidalgo PA-C - 02/28/2021 1:58 PM CST History Chief Complaint: Chest Pain History is provided by patient. HPI Lacey Nolasco is a 40 year old female with history of hypothyroidism presents with chest pain. The patient is vaccinated and notes that she had some cough aches and low-grade fever and tested positive for Covid 5 days ago. The symptoms have improved completely. Last night however while she was lying in bed she noted onset of central chest pain described as a burning. This is continued throughout the night and throughout the day today while she was working at her desk at home. She describes it as a burning which lasts about 5 to 10 seconds at a time and comes on without any apparent trigger. It does not worsen with exertion. It does not radiate. No vomiting or diaphoresis. She does feel somewhatshort of breath though has felt this way since being diagnosed with Covid. She denies any leg pain or leg swelling. She is no longer having fevers or cough. She does have a family history of early CAD in her father at the age of 55. She is not a smoker. No abdominal pain. Food does not change symptoms. Review of Systems All other systems reviewed and are negative. Allergies: Ambien Medications: Synthroid/Levothroid Norgestrel-Ethinyl Estradiol Valtrex Past Medical History: Anesthesia complication Endometriosis Hypothyroidism PONV Uterine contractions Submucous leiomyoma of uterus DJD Dysmenorrhea Past Surgical History: Dilation and curettage Endometrium ablation Hysteroscopy Laparoscopy diagnostic Neck surgery Cervical disc replacement Tonsillectomy Breast biopsy Tonsillectomy and adenoidectomy Cosmetic surgery Breast augmentation Pelvic laparoscopy Family History: Heart disease Lung cancer Leukemia CAD Hyperlipidemia Migraines Social History: Patient denies tobacco use. Physical Exam Patient Vitals for the past 24 hrs: BP Temp Temp src Pulse Resp SpO2 Height Weight 02/28/21 1630 -- -- -- -- -- 97 % -- -- 02/28/21 1600 -- -- -- -- -- 98 % -- -- 02/28/21 1412 122/84 97.7 ??F (36.5 ??C) Temporal 76 20 100 % 1.651 m (5' 5) 77.1 kg (170 lb) Physical Exam General: Awake, alert, pleasant, non-toxic. Head: Scalp is NC/AT Eyes: Conjunctiva normal, PERRL ENT: The external nose and ears are normal. Neck: Normal range of motion without rigidity. CV: Regular rate and rhythm No pathologic murmur, rubs, or gallops. Resp: Breath sounds are clear bilaterally. No crackles, wheezes, rhonchi, stridor. Non-labored, no retractions or accessory muscle use Abdomen: Abdomen is soft, no distension, no tenderness, no masses. No CVA tenderness. MS: No lower extremity edema or asymmetric calf swelling. Skin: Warm and dry, No rash or lesions noted. 2+ peripheral pulses in all extremities Neuro: Alert and oriented x3. GCS 15 5/5 strength BL in UE and LE, normal sensation to touch. Cranial nerves 2-12 intact. Psych: Awake. Alert. Normal affect. Appropriate interactions. Emergency Department Course ECG ECG obtained at 1538, ECG read at 1544 Normal sinus rhythm Cannot rule out anterior infarct, age undetermined Abnormal ECG No significant change as compared to prior, dated 11/04/17. Rate 69 bpm. VT interval 162 ms. QRS duration 88 ms. QT/QTc 416/445 ms. P-R-T axes 29 -2 6. Imaging: XR Chest Port 1 View Negative chest. Reading per radiology Laboratory: CBC: WBC 7.2, HGB 13.9, PLT 247 BMP: Glucose 100 (H), o/w WNL (Creatinine 0.77) Ddimer: 0.29 Troponin (Collected 1529): <0.015 Emergency Department Course: Reviewed: I reviewed nursing notes, vitals, past medical history and Care Everywhere Assessments: 1620 I obtained history and examined the patient as noted above. 1650 I rechecked the patient and explained findings. Disposition: The patient was discharged to home. Impression & Plan Medical Decision Makin40 year old female who presents with chest pain. Patient history and records reviewed. Broad differential considered including: ACS, PE, aortic dissection, myocarditis, pericarditis, pneumothorax, pneumonia, esophageal rupture, musculoskeletal chest wall pain, referred pain from abdomen. Patient well a ppearing with non-concerning vitals. EKG without evidence of acute ischemia or arrythmia. Troponin is undetectable despite ongoing symptoms >6 hours, and patient is a HEART score of 1 ([id number]) and I feel ACS is unlikely. D dimer negative and low clinical suspicion for PE and would not pursue further workup at this time. Chest x-ray shows no evidence of pneumonia, pneumothorax, CHF, or mediastinal widening. No other high risk factors present for aortic dissection, ADD score 0 and feel this is very unlikely at this time. Abdominal examination non-tender and doubt referred pain from intra-abdominal catastrophe, pancreatitis, gallbladder pathology. Unclear etiology of the symptoms at this time. Most likely musculoskeletal versus possibly related to COVID-19 diagnosis. Follow-up with PCP and continued quarantine at home. Return precautions given for new or worsening symptoms. Diagnosis: ICD-10-CM 1. Chest pain R07.9 Discharge Medications: New Prescriptions No medications on file Scribe Disclosure: I, Medardo Ramseyjoanne, am serving as a scribe at 3:44 PM on 02/28/2021 to document services personally performed by Edward Hidalgo PA-C based on my observations and the provider's statements to me. Edward Hidalgo PA-C 02/28/211913 ET CUTTER documented in this encounter Plan of Treatment Not on filedocumented as of this encounter Procedures Procedure Name Priority Date/Time Associated Comments Diagnosis XR CHEST PORT 1 VIEW STAT 02/28/2021 4:35 PM R esults for this BILLET CUTTER procedure are i n the results section. EKG 12-LEAD, TRACING STAT 02/28/2021 3:38 PM R esults for this ONLY BILLET CUTTER procedure are i n the results section. EXTRA TUBE STAT 02/28/2021 3:30 PM Results f or this BILLET CUTTER procedure are i n the results section. EXTRA RED TOP TUBE STAT 02/28/2021 3:30 PM Res ults for this BILLET CUTTER procedure are i n the results section. CBC WITH PLATELETS STAT 02/28/2021 3:29 PM Res ults for this AND DIFFERENTIAL BILLET CUTTER procedure a re in the results section. CBC WITH PLATELETS & STAT 02/28/2021 3:29 PM R esults for this DIFFERENTIAL BILLET CUTTER procedure are i n the results section. TROPONIN I STAT 02/28/2021 3:29 PM Results f or this BILLET CUTTER procedure are i n the results section. D DIMER QUANTITATIVE STAT 02/28/2021 3:29 PM R esults for this BILLET CUTTER procedure are i n the results section. BASIC METABOLIC PANEL STAT 02/28/2021 3:29 PM Results for this BILLET CUTTER procedure are i n the results section. documented in this encounter Results XR Chest Port 1 View (02/28/2021 4:35 PM BILLET CUTTER) Anatomical Region Laterality Modality Chest Digital Radiography Specimen (Source) Anatomical Location Collection Method / Collectio n Time Received Time / Laterality Volume Impressions 02/28/2021 4:36 PM BILLET CUTTER IMPRESSION: Negative chest. NATHALY CEDEÑO MD SYSTEM ID: ??[id number] Narrative 02/28/2021 4:36 PM BILLET CUTTER XR CHEST PORT 1 VIEW 02/28/2021 4:35 PM ?? INDICATION: chest pain COMPARISON: 05/12/2020 Procedure Note Nathaly Cedeño MD - 02/28/2021Fo rmatting of this note might be different from the original. XR CHEST PORT 1 VIEW 02/28/2021 4:35 PM INDICATION: chest pain COMPARISON: 05/12/2020 IMPRESSION: Negative chest. NATHALY CEDEÑO MD SYSTEM ID: [id number] Edward Hidalgo PA-C IMG DIAGNOSTIC IMAGING LUC ISSA EKG 12 lead (02/28/2021 3:38 PM BILLET CUTTER) Component Value Ref Range Test Analysis Performed Pathologis t Method Time At Signature Systolic Blood mmHg RADIOLOGY Pressure RESULTS Diastolic Blood mmHg RADIOLOGY Pressure RESULTS Ventricular Rate 69 BPM RADIOLOGY RESULTS Atrial Rate 69 BPM RADIOLOGY RESULTS VT Interval 162 ms RADIOLOGY RESULTS QRS Duration 88 ms RADIOLOGY RESULTS QT 416 ms RADIOLOGY RESULTS QTc 445 ms RADIOLOGY RESULTS P [place] 29 degrees RADIOLOGY RESULTS R AXIS -2 degrees RADIOLOGY RESULTS T [place] 6 degrees RADIOLOGY RESULTS Interpretation Sinus rhythm RADIOLOGY ECG Cannot rule out Anterior infarct (cited on or before ) RESULTS Abnormal ECG When compared with ECG of 04-NOV-2017 19:33, No significant change was found Confirmed by - EMERGENCY BECKY Patricia, PHYSICIAN ([id number]), society editor BERYL MCGEE ([id number]) on 03/01/2021 6:38:41 AM Specimen Anatomical Collection Method Collection Time Receive d Time (Source) Location / / Volume Laterality 02/28/2021 3:38 PM 6:38 BILLET CUTTER AM BILLET CUTTER Selin Klein MD ECG ORDERABLES Performing Organization Address City/State/ZIP Code Phon e Number RADIOLOGY RESULTS Extra Red Top Tube (02/28/2021 3:30 PM BILLET CUTTER) P athologist Signature Hold Specimen JIC 02/28/2021 [facility] 4:46 PM BILLET CUTTER Specimen Anatomical Collection Method / Collection Time Recei regan Time (Source) Location / Volume Laterality Blood BLOOD SPECIMEN / Venipuncture / 02/28/2021 3:30 2020 3:44 Unknown Unknown PM BILLET CUTTER PM BILLET CUTTER Edward Hidalgo PA-C LAB - BLOOD ORDERABLES Performing Organization Address City/State/ZIP Code [place] [address] Care [facility] [address] Lab (1st floor, no room number) (ABNORMAL) CBC with platelets and differential (02/28/2021 3:29 PM BILLET CUTTER) [facility] Method Time Signature WBC Count 7.2 4.0 - 02/28/2021 [facility] 11.0 3:47 PM BILLET CUTTER 10e3/uL RBC Count 4.71 3.80 - 02/28/2021 [facility] 5.20 3:47 PM BILLET CUTTER 10e6/uL Hemoglobin 13.9 11.7 - 02/28/2021 [facility] 15.7 g/dL 3:47 PM BILLET CUTTER Hematocrit 44.2 35.0 - 02/28/2021 [facility] 47.0 % 3:47 PM BILLET CUTTER MCV 94 78 - 100 02/28/2021 [facility] fL 3:47 PM BILLET CUTTER MCH 29.5 26.5 - 02/28/2021 [facility] 33.0 pg 3:47 PM BILLET CUTTER MCHC 31.4 (L) 31.5 - 02/28/2021 [facility] 36.5 g/dL 3:47 PM BILLET CUTTER RDW 13.6 10.0 - 02/28/2021 [facility] 15.0 % 3:47 PM BILLET CUTTER Platelet Count 247 150 - 450 02/28/2021 [facility] 10e3/uL 3:47 PM BILLET CUTTER % Neutrophils 71 % 02/28/2021 [facility] 3:47 PM BILLET CUTTER % Lymphocytes 20 % 02/28/2021 [facility] 3:47 PM BILLET CUTTER % Monocytes 6 % 02/28/2021 [facility] 3:47 PM BILLET CUTTER % Eosinophils 2 % 02/28/2021 [facility] 3:47 PM BILLET CUTTER % Basophils 1 % 02/28/2021 [facility] 3:47 PM BILLET CUTTER % Immature 0 % 02/28/2021 [facility] Granulocytes 3:47 PM BILLET CUTTER NRBCs per 100 0 <1 /100 02/28/2021 [facility] WBC 3:47 PM BILLET CUTTER Absolute 5.1 1.6 - 8.3 02/28/2021 [facility] Neutrophils 10e3/uL 3:47 PM BILLET CUTTER Absolute 1.5 0.8 - 5.3 02/28/2021 [facility] Lymphocytes 10e3/uL 3:47 PM BILLET CUTTER Absolute 0.4 0.0 - 1.3 02/28/2021 [facility] Monocytes 10e3/uL 3:47 PM BILLET CUTTER Absolute 0.2 0.0 - 0.7 02/28/2021 [facility] Eosinophils 10e3/uL 3:47 PM BILLET CUTTER Absolute 0.1 0.0 - 0.2 02/28/2021 [facility] Basophils 10e3/uL 3:47 PM BILLET CUTTER Absolute 0.0 <=0.0 02/28/2021 [facility] Immature 10e3/uL 3:47 PM BILLET CUTTER Granulocytes Absolute NRBCs 0.0 10e3/uL 02/28/2021 [facility] 3:47 PM BILLET CUTTER Specimen Anatomical Collection Method / Collection Time Recei regan Time (Source) Location / Volume Laterality Blood STRUCTURE OF RIGHT Venipuncture / 02/28/2021 3:29 02/12 3:41 UPPER LIMB / Unknown PM BILLET CUTTER PM BILLET CUTTER Unknown Selin Klein MD LAB - BLOOD ORDERABLES Performing Organization Address City/State/[place] [address] Care Lab [address] [facility] Lab (1st floor, no room number) Troponin I (02/28/2021 3:29 PM BILLET CUTTER) P athologist Signature Troponin I <0.015 0.000 - 02/28/2021 [facility] 0.045 ug/L 4:07 PM BILLET CUTTER Comment: The 99th percentile for upper r eference range is 0.045ug/L. Troponin values in the range of 0.045 - 0.120 ug/L may b e associated with risks of adverse clinical events. Specimen Anatomical Collection Method / Collection Time Recei regan Time (Source) Location / Volume Laterality Blood STRUCTURE OF RIGHT Venipuncture / 02/28/2021 3:29 02/12 3:41 UPPER LIMB / Unknown PM BILLET CUTTER PM BILLET CUTTER Unknown Selin Klein MD LAB - BLOOD ORDERABLES Performing Organization Address City/State/[place] [address] Care Lab [address] Lab (1st floor, no room number) (ABNORMAL) Basic metabolic panel (02/28/2021 3:29 PM BILLET CUTTER) Analysis Performed At Patho logist Time Signature Sodium 138 133 - 144 02/28/2021 LABORATORY mmol/L 4:07 PM BILLET CUTTER Potassium 4.2 3.4 - 5.3 02/28/2021 LAB[facility] mmol/L 4:07 PM BILLET CUTTER Chloride 106 94 - 109 02/28/2021 [facility] mmol/L 4:07 PM BILLET CUTTER Carbon Dioxide 29 20 - 32 02/28/2021 LAB[facility]ATORY (CO2) mmol/L 4:07 PM BILLET CUTTER Anion Gap 3 3 - 14 02/28/2021 [facility] mmol/L 4:07 PM BILLET CUTTER Urea Nitrogen 14 7 - 30 02/28/2021 LAB[facility]ATORY mg/dL 4:07 PM BILLET CUTTER Creatinine 0.77 0.52 - 02/28/2021 LAB[facility] 1.04 mg/dL 4:07 PM BILLET CUTTER Calcium 8.9 8.5 - 10.1 02/28/2021 LAB[facility]ATORY mg/dL 4:07 PM BILLET CUTTER Glucose 100 (H) 70 - 99 02/28/2021 LAB[facility]ATORY mg/dL 4:07 PM BILLET CUTTER GFR Estimate >90 >60 02/28/2021 [facility] mL/min/1.7 4:07 PM BILLET CUTTER 3m2 Comment: As of October 22, 2020, eGFR is ca lculated by the CKD-EPI creatinine equation, without race adjustment. eGFR can be inf luenced by muscle mass, exercise, and diet. The reported eGFR is an estimation only and is only applicable if the renal function is stable. Specimen Anatomical Collection Method / Collection Time Recei regan Time (Source) Location / Volume Laterality Blood STRUCTURE OF RIGHT Venipuncture / 02/28/2021 3:29 02/12 3:41 UPPER LIMB / Unknown PM BILLET CUTTER PM BILLET CUTTER Unknown Selin Klein MD LAB - BLOOD ORDERABLES Performing Organization Address City/State/ZIP Code [place] [address] Care Lab [address] Lab (1st floor, no room number) D dimer quantitative (02/28/2021 3:29 PM BILLET CUTTER) Analysis Performed At Patho logist Time Signature D-Dimer 0.29 0.00 - 02/28/2021 [facility] Quantitative 0.50 ug/mL 3:59 PM BILLET CUTTER FEU Specimen Anatomical Collection Method / Collection Time Recei regan Time (Source) Location / Volume Laterality Blood STRUCTURE OF RIGHT Venipuncture / 02/28/2021 3:29 02/12 3:41 UPPER LIMB / Unknown PM BILLET CUTTER PM BILLET CUTTER Unknown Narrative [facility] - 02/28/2021 3:59 PM BILLET CUTTER This D-dimer assay is intended for use i n conjunction with a clinical pretest probability assessment model to exclude pulmonary embolism (PE) and deep venous thrombosis (DVT) in outpatients suspecte d of PE or DVT. The cut-off value is 0.50 ug/mL FEU. Selin Klein MD LAB - BLOOD ORDERABLES Performing Organization Address City/State/ZIP Code [place] [id number] Care Lab [address] [facility] Lab (1st floor, no room number) documented in this encounter Visit Diagnoses Diagnosis Chest pain Chest pain, unspecified documented in this encounter Additional Health Concerns Assessment Noted Time PHQ-9 Depression Total Score: 2 06/01/2020 1:03 PM BILLET CUTTER documented as of this encounter Care Teams Track Repairer Helper Relationship Specialty Start Date End Date Medardo Graf PCP - General Family Practice 11/15/18 [facility] [address] [place] [address] Noelle Khan Assigned Pulmonology 02/04/20 MD Yumiko Provider [facility] [address] [place], [place] [address] Umu Duke MD MD naphthol soaping machine operator 03/16/20 [address] [facility] [address] [place], [place] [id number] Umu Duke MD Assigned OBGYN Provider 06/04/20 02/01/[address] [facility] [address] [place], [place] [id number] documented as of this encounter
--- OUTSIDE RECORDS SUMMARY | 2022-03-23 17:25 | XMS_ITS | Encounter Summary ---
:1980 Author Organization [place] Address Critical access hospital0 [facility] [address] Care Team Providers Name Role Phone Medardo Graf Primary Care Provider Noelle Khan MD Unavailable [phone] Umu Duke MD Unavailable Reason for Visit Diagnostic Imaging CT Scan (Routine) - Closed Specialty Diagnoses / Procedures Referred By Contact Refer red To Contact Diagnoses Pulmonary nodules Noelle Khan MD Procedures CT Chest w/o contrast MEDICINE - [facility] [address] [address] [facility] [address] [place], [place] [address] Referral ID Status Reason Start Date Expiration Date Visits Requ ested Visits Authorized [id number] Closed 04/22/2019 04/21/2020 1 1 Encounter Details Date Type Department Care Team Description 05/12/2020 Ancillary Procedure [facility] Gregory Khan Pulmonary nodules Imaging Center CHAZ Calderon MD [address] SPECIALTY [facility] [address] [facility] [address] 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 documented as of this encounter Plan of Treatment Not on filedocumented as of this encounter Procedures Procedure Name Priority Date/Time Associated Diagnosis Comme nts CT CHEST W/O Routine 05/12/2020 12:25 PM Pulmonary nodules Res ults for this CONTRAST FOOD PRODUCTION MACHINE OPERATOR procedure are i n the results section. documented in this encounter Results CT Chest w/o contrast (05/12/2020 12:25 PM FOOD PRODUCTION MACHINE OPERATOR) Anatomical Region Laterality Modality Chest, SUBRAD CT BODY, UMP CT CHEST, RAD CT Computed Tomography Specimen (Source) Anatomical Location Collection Method / Collectio n Time Received Time / Laterality Volume Impressions 05/12/2020 3:21 PM FOOD PRODUCTION MACHINE OPERATOR IMPRESSION: Unchanged 3 mm solid nodule in the right middle lobe. No new suspicious or enlarging pulmonary no dule. I have personally reviewed the examinati on and initial interpretation and I agree with the findings. TEJA THOMAS MD Narrative 05/12/2020 3:21 PM FOOD PRODUCTION MACHINE OPERATOR Exam: CT Chest without contrast 05/12/2020 12:25 PM History: Lung nodule (Pulmonary nodule); follow 3mm R pulmonary nodule; Pulmonary nodules Comparison: CT 04/21/2019 TECHNIQUE: Helical acquisition of CT olga ges from the lung apices to the kidneys without IV contrast. Coronal images and axial MIP images were reconstructed from the source data. FINDINGS: Chest: Thyroid is unremarkable. Unchanged promi nence of the thymus. Normal branching pattern of the thoracic great vessels. Heart size is normal. No pericardial effusion. No mediastinal, hilar or axillary lymphadenopathy. Esophagus is normal in caliber. Lungs: The central tracheobronchial tree is pat ent. No pneumothorax or pleural effusion. No consolidated airspa ce opacity. Mild deep tendon atelectasis. Stable 3 mm nodule in the r ight middle lobe (series 4 image 2:15). No new suspicious or enlarg ing pulmonary nodule. Upper abdomen: Limited evaluation of the upper abdomen demonstrates no acute pathology. Adrenal glands are unremarkab le. Bones: No acute osseus abnormality or suspiciou s bony lesion.. Partially visualized hardware in the cervical spin e. Procedure Note Teja Thomas MD - 05/12/2020F ormatting of this note might be different from the original. Exam: CT Chest without contrast 1 12:25 PM History: Lung nodule (Pulmonary nodule); follow 3mm R pulmonary nodule; Pulmonary nodules Comparison: CT 04/21/2019 TECHNIQUE: Helical acquisition of CT olga ges from the lung apices to the kidneys without IV contrast. Coronal images and axial MIP images were reconstructed from the source data. FINDINGS: Chest: Thyroid is unremarkable. Unchanged promi nence of the thymus. Normal branching pattern of the thoracic great vessels. Heart size is normal. No pericardial effusion. No mediastinal, hilar or axillary lymphadenopathy. Esophagus is normal in caliber. Lungs: The central tracheobronchial tree is pat ent. No pneumothorax or pleural effusion. No consolidated airspa ce opacity. Mild deep tendon atelectasis. Stable 3 mm nodule in the r ight middle lobe (series 4 image 2:15). No new suspicious or enlarg ing pulmonary nodule. Upper abdomen: Limited evaluation of the upper abdomen demonstrates no acute pathology. Adrenal glands are unremarkab le. Bones: No acute osseus abnormality or suspiciou s bony lesion.. Partially visualized hardware in the cervical spin e. IMPRESSION: Unchanged 3 mm solid nodule in the right middle lobe. No new suspicious or enlarging pulmonary no dule. I have personally reviewed the examinati on and initial interpretation and I agree with the findings. TEJA THOMAS MD Noelle Khan MD IMG CT ORDERABLES documented in this encounter Visit Diagnoses Diagnosis Pulmonary nodules Other nonspecific abnormal finding of elicia ng field documented in this encounter Care Teams Patient Care Relationship Specialty Start Date End Date Medardo Graf PCP - General Family Practice 11/15/18 [facility] [address] [place] [address] Noelle Khan Assigned Pulmonology 02/04/20 MD Yumiko Provider [facility] [address] [place], [place] [address] Umu Duke MD MD hydrotechnical specialist 03/16/[address] [place] [address] [address] [place], [place] [id number] documented as of this encounter
--- OUTSIDE RECORDS SUMMARY | 2022-03-23 17:25 | XMS_ITS | Encounter Summary ---
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 documented as of this encounter Plan of Treatment Not on filedocumented as of this encounter Visit Diagnoses Not on filedocumented in this encounter Care Teams Assistant Press Operator Relationship Specialty Start Date End Date Medardo Graf PCP - General Family Practice 11/15/18 [facility] [address] [place] [address] Noelle Khan Assigned Pulmonology 02/04/20 MD Yumiko Provider [facility] [address] [place] [address] Umu Duke MD MD hosting engineer 03/16/[address] [place] [address] 300 [place] [address] documented as of this encounter
--- OUTSIDE RECORDS SUMMARY | 2022-03-23 17:25 | XMS_ITS | Encounter Summary ---
:1980 Author Organization [place] Address [address] [facility] [place] [address] Care Team Providers Name Role Phone Medardo Graf Primary Care Provider Noelle Khan MD Unavailable [phone] Umu Duke MD Unavailable Umu Duke MD Unavailable Encounter Details Date Type Department Care Team Description 08/03/2020 Virtual Visit [facility] Umu Duke Status po st hysteroscopy (Primary Dx); [facility] MD [place] Submucous leiomyoma of uterus; [place] [address] Abnormal uterine bleeding (A UB) [address] [place] [address] [place] [facility] [id number] [place] [address] 300 [place], [place] (Work) [address] Social History Tobacco Use [...] COVID-19? documented as of this encounter Progress Umu Brothers MD - 08/03/2020 8:30 AM CDT The patient has been notified of the following: We have found that certain health care needs can be provided without the need for a face to face visit. This service lets us provide the care you need with a phone conversation. I will have full access to your [facility] medical record during this entire phone call. I will be taking notes for your medical record. Since this is like an office visit, we will bill your insurance company for this service. There are potential benefits and risks of telephone visits (e.g. limits to patient confidentiality) that differ from in-person visits.? Confidentiality still applies for telephone services, and nobody will record the visit. It is important to be in a quiet, private space that is free of distractions (i ncluding cell phone or other devices) during the visit.?? If during the course of the call I believe a telephone visit is not appropriate, you will not be charged for this service Consent has been obtained for this service by care donor services team leader: Yes Lacey is 40 yo now 3 weeks s/p hysteroscopy, D&C for abnormal uterine bleeding and fibroid uterus. She initially had more bleeding than she expected after the procedure and occasional sharp pains. Both of these have completely resolved. She is hoping to wait and see how things go as far as bleeding/cramping. Past Medical History: Diagnosis Date ??? Complication [...] AND CURETTAGE SUCTION, ABLATE ENDOMETRIUM NOVASURE; Surgeon: Allen Mahajan MD; Location: [facility] OR ??? DILATION AND CURETTAGE, OPERATIVE HYSTEROSCOPY WITH MORCELLATOR, COMBINED N/A 07/11/2020 Procedure: HYSTEROSCOPY, WITH DILATION AND CURETTAGE OF UTERUS USING MORCELLATOR, REMOVAL OF SUBMUCOSAL FIBROIDS; Surgeon: Umu Duke MD; Location: [facility] OR ??? LAPAROSCOPY DIAGNOSTIC (WATER AEROBICS INSTRUCTOR) 04/23/2011 Procedure:LAPAROSCOPY DIAGNOSTIC (WATER AEROBICS INSTRUCTOR); LAPAROSCOPY DIAGNOSTIC, pelvic exam under anesthesia, Fulguration Of Endometriosis; Surgeon:ALLEN MAHAJAN; Location:[facility] OR ??? NECK SURGERY june 2010 ??? SPINE SURGERY cervical disc replacement ??? TONSILLECTOMY Physical exam: None completed for this telephone visit. She sounds in no distress, converses easily Pathology: Uterus, myoma, hysteroscopic resection and endometrial curettage: - Multiple fragments of smooth muscle, consistent with submucosal leiomyoma - Unremarkable endocervical and squamous epithelium - Rare, minute fragments of columnar epithelium suggestive of endometrial epithelium - Negative for atypia or malignancy Assessment/Plan: 40 yo P2002 3 weeks s/p hysteroscopy, D&C doing well - reviewed benign pathology - discussed anticipation of light menses, hopefully with decreased pain after myomectomy and openingof uterine cavity. Discussed if not satisfied with results we could plan repeat ultrasound, possiblerepeat hysteroscopy vs repeat endometrial ablation vs hysterectomy. Patient will let us know how things are going in the future. Umu Duke MD documented in this encounter Plan of Treatment Not on filedocumented as of this encounter Visit Diagnoses Diagnosis Status post hysteroscopy - Primary Submucous leiomyoma of uterus Abnormal uterine bleeding (AUB) documented in this encounter Additional Health Concerns Assessment Noted Time PHQ-9 Depression Total Score: 2 06/01/2020 1:03 PM ACTIVITY LEADER documented as of this encounter Care Teams Animal Care Service Worker Relationship Specialty Start Date End Date Medardo Graf PCP - General Family Practice 11/15/18 [facility] [address] [place] [address] Noelle Khan Assigned Pulmonology 02/04/20 MD Yumiko Provider [address] [place] [address] Umu Duke MD MD client support professional 03/16/[address] [place] [address] 300 [place], [place] [address] Umu Duke MD Assigned OBGYN Provider 06/04/20 02/01/[address] [place] [address] 300 [place], [place] [id number] documented as of this encounter
--- OUTSIDE RECORDS SUMMARY | 2022-03-23 17:25 | XMS_ITS | Encounter Summary ---
:1980 Author Organization [place] Address [address] [facility] [place] [address] Care Team Providers Name Role Phone Medardo Graf Primary Care Provider Noelle Khan MD Unavailable [phone] Umu Duke MD Unavailable Umu Duke MD Unavailable Reason for Visit (Routine) - Closed Specialty Diagnoses / Procedures Referred By Contact Refer red To Contact Radiology / Radiology. Diagnoses Epic order SB pt Rh Mri Procedures MR PELVIS (AUTO PARKER) WWO CONTRAST [address] [place] [address] Phone: Fax: Referral ID Status Reason Start Date Expiration Date Visits Requ ested Visits Authorized [id number] Closed 06/11/2020 06/11/2021 1 1 Encounter Details Date Type Department Care Team Description 06/11/2020 Hospital Encounter [facility] Umu Duke Uter ine leiomyoma, [facility] MD [place] unspecified location [address] [facility] [address] [address] [facility] [phone] [place] [id number] Social History Tobacco Use Types Packs/Day [...] with No / Unsure 06/11/2020 8:16 AM INFORMATION SCIENTIST someone who was confirmed or suspected to have Coronavirus / COVID-19? documented as of this encounter Medications at Time of Discharge Medication Sig Dispensed Refills Start Date End Date levothyroxine 50 mcg daily 0 04/09/2019 (SYNTHROID/LEVOTHROID) 50 MCG tablet norgestrel-ethinyl Take 1 tablet by 0 03/15/2020 estradiol (LO/OVRAL) mouth 0.3-30 MG-MCG tablet valACYclovir (VALTREX) 500 0 8 MG tablet CRYSELLE-28 0.3-30 MG-MCG 0 03/15/2020 07/11/2020 tablet documented as of this encounter Plan of Treatment Not on filedocumented as of this encounter Procedures Procedure Name Priority Date/Time Associated Diagnosis Comme nts MR PELVIS (AUTO PARKER) W/O Routine 06/11/2020 11:00 AM Uterine leiomy lisbeth, Results for this & W CONTRAST INFORMATION SCIENTIST unspecified location procedu re are in the results section. documented in this encounter Results MR Pelvis (AUTO PARKER) wo & w Contrast (06/11/2020 11:00 AM INFORMATION SCIENTIST) Anatomical Region Laterality Modality Abdomen/Pelvis, SUBRAD MR BODY, UMP MR BODY, RAD MR Magnetic Resonance Specimen (Source) Anatomical Location Collection Method / Collectio n Time Received Time / Laterality Volume Impressions 06/11/2020 11:41 AM INFORMATION SCIENTIST IMPRESSION: ??Multiple uterine fibroids as described above. Some of these are submucosal in location. These obscure the endometrial stripe, but no significant endometrial t hickening is appreciated. Nabothian cysts are noted in the cervix. Ovaries are unremarkable. MIKE ALMONTE MD Narrative 06/11/2020 11:41 AM INFORMATION SCIENTIST MR PELVIS (AUTO PARKER) WITHOUT AND WITH CONTRAST ??06/11/2020 11:00 AM [...] ot herwise within normal limits. Procedure Note Mike Almonte MD - 06/11/2020Form atting of this note might be different from the original. MR PELVIS (AUTO PARKER) WITHOUT AND WITH CONTRAS T 06/11/2020 11:00 [...] noted in the cervix. Ovaries are unremarkable. MIKE ALMONTE MD Umu Duke MD [facility] [place] ORDERABLES documented in this encounter Visit Diagnoses Diagnosis Uterine leiomyoma, unspecified location documented in this encounter Administered Medications Inactive Administered Medications - up to 3 most recent administrations Medication Order MAR Action Action Date Dose Rate Site gadobutrol (GADAVIST) injection Given 06/11/2020 10:59 AM INFORMATION SCIENTIST 8. 5 mLs 10 mL 10 mL, Intravenous, ONCE, On 06/11/20 at 1100, For 1 dose sodium chloride (PF) 0.9% PF flush 60 mL Given 06/11/2020 10:59 AM INFORMATION SCIENTIST 60 mLs 60 mL, Intravenous, ONCE, On 06/11/20 at 1100, For 1 dose documented in this encounter Additional Health Concerns Assessment Noted Time PHQ-9 Depression Total Score: 2 06/01/2020 1:03 PM INFORMATION SCIENTIST documented as of this encounter Care Teams Cell Preparer Relationship Specialty Start Date End Date Medardo Graf PCP - General Family Practice 11/15/18 [facility] [address] [place] [address] Noelle Khan Assigned Pulmonology 02/04/20 MD Yumiko Provider [facility] [address] [place], [place] [address] Umu Duke MD MD record pressman 03/16/20 [address] [facility] [place] [address] [place], [place] [id number] Umu Duke MD Assigned OBGYN Provider 06/04/20 02/01/22 [address] [place] [address] [place] [address] documented as of this encounter
--- OUTSIDE RECORDS SUMMARY | 2022-03-23 17:26 | XMS_ITS | Encounter Summary ---
:1980 Author Organization [place] Address [address] [place] [address]. [place] [address] Care Team Providers Name Role Phone Medardo Graf Primary Care Provider Reason for Visit Reason Comments Urgent Care Nausea vomiting, diarrhea x last pm vomiting every 15 min Headache Encounter Details Date Type Department Care Team Description 11/15/[address] [facility] Aurelio, Nano, Nausea (Primary Dx); Urgent Care Agustina owens MD Vomiting and diarrhea; [address] [facility] [address] [place] [address] [place], [place] [phone] [id number] Social History Tobacco Use Types Packs/Day Years Used Date Smoking Tobacco: Never Smokeless Tobacco: Never Alcohol Use Standard Drinks/Week Comments No 0 (1 standard drink = 0.6 oz [...] on file documented as of this encounter Last Filed Vital Signs Vital Sign Reading Time Taken Comments Blood Pressure 114/70 11/15/2018 3:33 PM CDT Pulse 98 11/15/2018 3:33 PM CDT Temperature 37 ??C (98.6 ??F) 11/15/2018 3:33 PM CDT Respiratory Rate 16 11/15/2018 3:33 PM CDT Oxygen Saturation 96% 11/15/2018 3:33 PM CDT Inhaled Oxygen Concentration - - Weight 84.5 kg (186 lb 3.2 oz) 11/15/2018 3:33 PM CDT Height 167.6 cm (5' 6) 11/15/2018 3:33 PM CDT Body Mass Index 30.05 11/15/2018 3:33 PM CDT documented in this encounter Progress Notes Nano Carey MD - 11/15/2018 3:30 PM CDT Chief Complaint Patient presents with ??? Urgent Care ??? Nausea vomiting, diarrhea x last pm vomiting every 15 min Headache SUBJECTIVE: Chief Complaint Patient presents with ??? Urgent Care ??? Nausea vomiting, diarrhea x last pm vomiting every 15 min Headache Lacey Nolasco is a 38 year old female whose symptoms began 1 day ago and include abdominal pain lower abdomen, vomiting and diarrhea. Symptoms are sudden onset and moderate. Aggravating factors: nothing. Alleviating factors:nothing Associated symptoms: Pain:Pain Location: lower abdomen Fever: no noted fevers Diarrhea: consists of 5 stools/day and is persisting Stools: a few loose stools Appetite: decreased Risk factors: none History reviewed. No pertinent family history. Past Medical History: Diagnosis Date ??? Complication of anesthesia severe nausea ??? Hx of previous reproductive problem used clomid with ??? PONV (postoperative nausea and vomiting) . Current Outpatient Medications Medication Sig Dispense Refill ??? albuterol (PROVENTIL HFA) 108 (90 Base) MCG/ACT inhaler Inhale 1-2 puffs into the lungs ??? valACYclovir (VALTREX) 500 MG tablet ??? diazepam (VALIUM) 5 MG tablet Take 1 tablet (5 mg) by mouth every 6 hours as needed for muscle spasms (spasms) (Patient not taking: Reported on 11/15/2018) 10 tablet 0 ??? naproxen (NAPROSYN) 250 MG tablet Take 250 mg by mouth 2 times daily (with meals) ??? oxyCODONE-acetaminophen (PERCOCET) 5-325 MG tablet Take 1 tablet by mouth every 6 hours as needed for severe pain Social History Tobacco Use ??? Smoking status: Never Smoker ??? Smokeless tobacco: Never Used Substance Use Topics ??? Alcohol use: No Comment: occas ROS: 10 point ROS of systems including Constitutional, Eyes, Respiratory, Cardiovascular, Genitourinary, Integumentary, Muscularskeletal, Psychiatric were all negative except for pertinent positives noted in my HPI OBJECTIVE: BP 114/70 (BP Location: Right arm, Patient Position: Sitting, Cuff Size: Adult Regular) Pulse 98 Temp 98.6 ??F (37 ??C) (Tympanic) Resp 16 Ht 1.676 m (5' 6) Wt 84.5 kg (186 lb 3.2 oz) LMP (LMP Unknown) SpO2 96% ? No BMI 30.05 kg/m?? GENERAL APPEARANCE: healthy, alert and no distress EYES: EOMI, PERRL, conjunctiva clear HENT: ear canals and TM's normal. Nose and mouth without ulcers, erythema or lesions, there is mucosal dryness noted NECK: supple, nontender, no lymphadenopathy RESP: lungs clear to auscultation - no rales, rhonchi or wheezes CV: regular rates and rhythm, normal S1 S2, no murmur noted ABDOMEN: soft, nontender, no HSM or masses and bowel sounds normal SKIN: no suspicious lesions or rashes PSYCH: mentation appears normal ASSESSMENT: Encounter Diagnoses Name Primary? Nausea Yes ??? Vomiting and diarrhea Lacey was seen today for urgent care and nausea. Diagnoses and all orders for this visit: Nausea - ondansetron (ZOFRAN-ODT) ODT tab 4 mg Vomiting and diarrhea Dehydration PLAN: Diet: Pedialyte, dilute gatorade and small amounts clear fluids frequently,soups,juices,water,advance diet as tolerated Follow up if symptoms fail to improve or worsens She was able to keep the zofran Was encouraged to push oral fluids Pt refused any oral fluids and Advised to go to ER for IV fluids Pt understood and agreed with plan See [facility] for orders Follow-up with PCP if not improving Nano Carey MD documented in this encounter Plan of Treatment Not on filedocumented as of this encounter Visit Diagnoses Diagnosis Nausea - Primary Nausea alone Vomiting and diarrhea Vomiting alone Dehydration documented in this encounter Administered Medications Inactive Administered Medications - up to 3 most recent administrations Medication Order MAR Action Action Date Dose Rate Site ondansetron (ZOFRAN-ODT) ODT tab 4 Given 11/15/2018 3:45 PM CDT 4 mg mg 4 mg, Oral, ONCE, On 11/15/18 at 1545, For 1 dose, With dry hands, peel back foil backing and gently remove tablet. Do not push oral disintegrating tablet through foil backing. Administer immediately on tongue and oral disintegrating tablet dissolves in seconds, then swallow with saliva. Liquid not required. documented in this encounter Care Teams Welder Gas Relationship Specialty Start Date End Date Medardo Graf PCP - General Family Practice 11/15/18 [facility] [address] [place] [address] documented as of this encounter
--- OUTSIDE RECORDS SUMMARY | 2022-03-23 17:26 | XMS_ITS | Encounter Summary ---
:1980 Author Organization [place] Address [address] [place] [address] Care Team Providers Name Role Phone Medardo Graf Primary Care Provider Encounter Details Date Type Department Care Team Description 04/21/2019 Travel Social History Tobacco Use Types Packs/Day [...] on file documented as of this encounter Plan of Treatment Not on filedocumented as of this encounter Visit Diagnoses Not on filedocumented in this encounter Care Teams Lease Administration Supervisor Relationship Specialty Start Date End Date Medardo Graf PCP - General Family Practice 11/15/18 [facility] [address] [place] [address] documented as of this encounter
--- OUTSIDE RECORDS SUMMARY | 2022-03-23 17:26 | XMS_ITS | Encounter Summary ---
:1980 Author Organization [place] Address [address] [place] [address] Care Team Providers Name Role Phone Medardo Graf Primary Care Provider Encounter Details Date Type Department Care Team Description 11/07/2019 Travel Social History Tobacco Use Types Packs/Day [...] been in contact with No / Unsure 11/07/2019 8:21 AM CDT someone who was confirmed or suspected to have Coronavirus / COVID-19? documented as of this encounter Plan of Treatment Not on filedocumented as of this encounter Visit Diagnoses Not on filedocumented in this encounter Care Teams Attorney Lawyer Relationship Specialty Start Date End Date Medardo Graf PCP - General Family Practice 11/15/18 [facility] [address] [place] [address] documented as of this encounter
--- OUTSIDE RECORDS SUMMARY | 2022-03-23 17:26 | XMS_ITS | Encounter Summary ---
:1980 Author Organization [place] Address [address] [place] [address]. [place] [address] Care Team Providers Name Role Phone Medardo Graf Primary Care Provider Reason for Visit Diagnostic Imaging CT Scan (Routine) - Closed Specialty Diagnoses / Procedures Referred By Contact Refer red To Contact Diagnoses ILD (interstitial lung disease) (H) Noelle Khan MD Procedures CT Chest w/o contrast MEDICINE - [facility] [address] [address] 5 Referral ID Status Reason Start Date Expiration Date Visits Requ ested Visits Authorized [id number] Closed 04/21/2019 04/20/2020 1 1 Encounter Details Date Type Department Care Team Description 04/21/2019 [facility] Noelle Khan ILD ( interstitial Procedure Center CT MD Yumiko lung disease) (H) [address] [facility] 1st Floor [address] [facility] [address] [facility] [phone] [place] [address] Social History Tobacco Use Types Packs/Day [...] Diagnosis Comme nts CT CHEST W/O Routine 04/21/2019 5:52 PM ILD (interstitial Resu lts for this CONTRAST BRATTICE BUILDER lung disease) (H) procedure are in the results section. documented in this encounter Results CT Chest w/o contrast (04/21/2019 5:52 PM BRATTICE BUILDER) Component Value Ref Test Analysis Performed At [facility] gist Range Method Time Signature Radiologist Pancreatic RADIOLOGY flags hypodense RESULTS indeterminant density Anatomical Region Laterality Modality Chest, SUBRAD CT BODY, UMP CT CHEST, RAD CT Computed Tomography Specimen (Source) Anatomical Location Collection Method / Collectio n Time Received Time / Laterality Volume Impressions 04/22/2019 10:53 AM BRATTICE BUILDER IMPRESSION: 1. No evidence of interstitial lung dise ase. 2. Partial visualization of 2 cm hypoden sity in the pancreatic head/uncinate process with no pancreatic atrophy or dilatation of the pancreatic duct. This is likely interspe rsing fat though it can be further evaluated by CT of abdomen. 3. There is a 3 mm solid pulmonary nodul e. Per Fleischner Society criteria, if the patient is high risk fo r lung cancer, one year follow-up imaging can be considered. 4. Prominent thymus likely physiologic. [Consider Follow Up: Pancreatic hypodens e indeterminant density] This report will be copied to the [facility] to ensure a provider acknowledges the finding. I have personally reviewed the examinati on and initial interpretation and I agree with the findings. TEJA THOMAS MD Narrative 04/22/2019 10:53 AM BRATTICE BUILDER EXAM: HRCT CHEST W/O CONTRAST 04/21/2019 5:52 PM HISTORY: ??Interstitial lung disease; pl ease perform HRCT with inspiratory, expiratory cuts, and PRONE position; ILD (interstitial lung disease) (H) COMPARISON: Outside CT on 04/02/2019 TECHNIQUE: Helical acquisition of the est was obtained without intravenous contrast and images are disp layed at 1 and 5 mm intervals. Images reviewed in lung, soft tissue, an d bone windows. FINDINGS: Lines and tubes: None Lung: No pleural effusion or pneumothora x. No focal airspace opacity is mild dependent atelectasis which reso lved in the prone images. No interstitial thickening. There is a 3 mm solid pulmonary nodule in the right middle lobe (series 4, image 171) No interstitial thickening. No appreciable air-trapping in the expirato ry phase images. The trachea and main bronchial tree are patent. Mediastinum: The cardiac size is within normal limits. No pericardial effusion. The pulmonary arteries are unr emarkable. The aortic arch and main arterial branches are within normal limits. No mediastinal, hilar, or axillary lymphadenopathy by si ze criteria. ??The esophagus is within normal limits. Prominent thymus. Thyroid is unremarkable. Limited evaluation of upper abdomen: Par tial visualization of 2 cm hypodensity in the pancreatic head/uncin ate process with no pancreatic atrophy or dilatation of the pancreatic duct. Bony structures and subcutaneous tissue: Bilateral breast implant. No suspicious osseous lesion. No acute osse ous abnormality. Procedure Note Teja Thomas MD - 04/22/2019F ormatting of this note might be different from the original. EXAM: HRCT CHEST W/O CONTRAST 04/21/2019 5 :52 PM HISTORY: Interstitial lung disease; plea se perform HRCT with inspiratory, expiratory cuts, and PRONE position; ILD (interstitial lung disease) (H) COMPARISON: Outside CT on 04/02/2019 TECHNIQUE: Helical acquisition of the est was obtained without intravenous contrast and images are disp layed at 1 and 5 mm intervals. Images reviewed in lung, soft tissue, an d bone windows. FINDINGS: Lines and tubes: None Lung: No pleural effusion or pneumothora x. No focal airspace opacity is mild dependent atelectasis which reso lved in the prone images. No interstitial thickening. There is a 3 mm solid pulmonary nodule in the right middle lobe (series 4, image 171) No interstitial thickening. No appreciable air-trapping in the expirato ry phase images. The trachea and main bronchial tree are patent. Mediastinum: The cardiac size is within normal limits. No pericardial effusion. The pulmonary arteries are unr emarkable. The aortic arch and main arterial branches are within normal limits. No mediastinal, hilar, or axillary lymphadenopathy by si ze criteria. The esophagus is within normal limits. Prominent thymus. Thyroid is unremarkable. Limited evaluation of upper abdomen: Par tial visualization of 2 cm hypodensity in the pancreatic head/uncin ate process with no pancreatic atrophy or dilatation of the pancreatic duct. Bony structures and subcutaneous tissue: Bilateral breast implant. No suspicious osseous lesion. No acute osse ous abnormality. IMPRESSION: 1. No evidence of interstitial lung dise ase. 2. Partial visualization of 2 cm hypoden sity in the pancreatic head/uncinate process with no pancreatic atrophy or dilatation of the pancreatic duct. This is likely interspe rsing fat though it can be further evaluated by CT of abdomen. 3. There is a 3 mm solid pulmonary nodul e. Per Fleischner Society criteria, if the patient is high risk fo r lung cancer, one year follow-up imaging can be considered. 4. Prominent thymus likely physiologic. [Consider Follow Up: Pancreatic hypodens e indeterminant density] This report will be copied to the [facility] to ensure a provider acknowledges the finding. I have personally reviewed the examinati on and initial interpretation and I agree with the findings. TEJA THOMAS MD Noelle Khan MD IMG CT ORDERABLES documented in this encounter Visit Diagnoses Diagnosis ILD (interstitial lung disease) (H) Postinflammatory pulmonary fibrosis documented in this encounter Care Teams Magistrate Relationship Specialty Start Date End Date Medardo Graf PCP - General Family Practice 11/15/18 [facility] [address] [place] [address] documented as of this encounter
--- OUTSIDE RECORDS SUMMARY | 2022-03-23 17:26 | XMS_ITS | Encounter Summary ---
:1980 Author Organization [place] Address [address] [facility] [place] [address] Care Team Providers Name Role Phone Medardo Graf Primary Care Provider Reason for Visit Reason Comments Urgent Care Nose Problem Congestion, earache, slight cough [id number] CoVID test last (routine)-OTC Benadryl Encounter Details Date Type Department Care Team Description 11/07/[address] [facility] Michelle Duran Acute sin usitis with Urgent Care Agustina Sexton PA-C symptoms > 10 days [id number] [address] [address] [address] SRIVASTAVA (Primary Dx) [facility] [address] [place] [address] [phone] Social History Tobacco Use Types Packs/Day Years [...] Sign Reading Time Taken Comments Blood Pressure - - Pulse 81 11/07/2019 8:52 AM CDT Temperature 37.2 ??C (98.9 ??F) 11/07/2019 8:52 AM CDT Respiratory Rate - - Oxygen Saturation 97% 11/07/2019 8:52 AM CDT Inhaled Oxygen Concentration - - Weight - - Height - - Body Mass Index - - documented in this encounter Patient Instructions Patient InstructionsMichelle Duran PA-C - 11/07/2019 8:25 AM CDT Images from the original note were not included. Patient Education Acute Sinusitis Acute sinusitis is??irritation and swelling of the sinuses. It is usually??caused by a viral infection after a common cold. Your doctor can help you find relief. What is acute sinusitis? Sinuses are air-filled spaces in the skull behind the face. They are kept moist and clean by a lining of mucosa. Things such as pollen, smoke, and chemical fumes can irritate the mucosa. It can then swell up. As a response to irritation, the mucosa makes more mucus and other fluids. Tiny hairlike cilia cover the mucosa. Cilia help carry mucus toward the opening of the sinus. Too much mucus may cause the cilia to stop working. This blocks the sinus opening. A buildup of fluid in the sinuses then causes pain and pressure. It can also encourage bacteria to grow in the sinuses. Common symptoms of acute sinusitis You may have: ?? Facial soreness??pain ?? Headache ?? Fever ?? Fluid draining in the back of the throat (postnasal drip) ?? Congestion ?? Drainage that is thick and colored, instead of clear ?? Cough Diagnosing acute sinusitis Your??doctor will ask about your symptoms and health history.??He or she will look at your ear, nose, and throat. You usually won't need to have X-rays taken.? The doctor may take a??sample of mucus to check for bacteria. If you have??sinusitis that keeps coming back, you may need imaging tests such as??X- rays or CAT scans. This will help your doctor??check for a structural problem that may be causing??the infection. Treating acute sinusitis Treatment is aimed at??unblocking the sinus opening and helping the cilia work again. You may need to take antihistamine and decongestant medicine. These can reduce inflammation and decrease the amountof fluid your sinuses make. If you have a bacterial infection, you will need to take??antibiotic medicine for 10 to 14 days. Take this medicine until it is gone, even if you feel better. Date Last Reviewed: 01/13/2016 ?? [id number] [employer]. [address] [place], [place] [id number]. All rights reserved. This information is not intended as a substitute for professional medical care. Always follow your healthcare professional's instructions. Discharge Instructions for COVID-19 Patients You have--or may have--COVID-19. Please follow the instructions listed below. If you have a weakened immune system, discuss with your doctor any other actions you need to take. How can I protect others? If you have symptoms (fever, cough, body aches or trouble breathing): ?? Stay home and away from others (self-isolate) until: ? At least 10 days have passed since your symptoms started. And? You've had no fever--and no medicine that reduces fever--for 3 full days (72 hours). And? Your other symptoms have resolved (gotten better). If you don't show symptoms, but testing showed that you have COVID-19: ?? Stay home and away from others (self-isolate) until at least 10 days have passed since the date of your first positive COVID-19 test. During this time ?? Stay in your own room, even for meals. Use your own bathroom if you can. ?? Stay away from others in your home. No hugging, kissing or shaking hands. No visitors. ?? Don't go to work, school or anywhere else. ?? Clean high touch surfaces often (doorknobs, counters, handles). Use household cleaning spray orwipes. You'll find a full list of wall worker on the EPA website: www.epa.gov/pesticide-registration/lis c-f-syzxglxfdxzyl-ezw-cuxewnv-drhd-cov-2. ?? Cover your mouth and nose with a mask, tissue or wash cloth to avoid spreading germs. ?? Wash your hands and face often. Use soap and water. ?? Caregivers in these groups are at risk for severe illness due to COVID-19: ? People 65 years and older ? People who live in a alf or long-term care facility ? People with chronic disease (lung, heart, cancer, diabetes, kidney, liver, immunologic) ? People who have a weakened immune system, including those who: ?? Are in cancer treatment ?? Take medicine that weakens the immune system, such as corticosteroids ?? Had a bone marrow or organ transplant ?? Have an immune deficiency ?? Have poorly controlled HIV or AIDS ?? Are obese (body mass index of 40 or higher) ?? Smoke regularly ?? Caregivers should wear gloves while washing dishes, handling laundry and cleaning bedrooms and bathrooms. ?? Use caution when washing and drying laundry: Don't shake dirty laundry and use the warmest water setting that you can. ?? For more tips on managing your health at home, go to www.cdc.gov/coronavirus/2019-ncov/downloads/10Things.pdf. How can I take care of myself at home? 1. Get lots of rest. Drink extra fluids (unless a doctor has told you not to). 2. Take Tylenol (acetaminophen) for fever or pain. If you have liver or kidney problems, ask your family doctor if it's okay to take Tylenol. Adults can take either: ? 650 mg (two 325 mg pills) every 4 to 6 hours, or? 1,000 mg (two 500 mg pills) every 8 hours as needed. ? Note: Don't take more than 3,000 mg in one day. Acetaminophen is found in many medicines (both prescribed and acpk-nul-sqjtgve medicines). Read all labels to be sure you don't take too much. For children, check the Tylenol bottle for the right dose. The dose is based on the child's age or weight. 3. If you have other health problems (like cancer, heart failure, an organ transplant or severe kidney disease): Call your specialty clinic if you don't feel better in the next 2 days. 4. Know when to call 911. Emergency warning signs include: ? Trouble breathing or shortness of breath ? Pain or pressure in the chest that doesn't go away ? Feeling confused like you haven't felt before, or not being able to wake up ? Bluish-colored lips or face 5. Your doctor may have prescribed a blood thinner medicine. Follow their instructions. Where can I get more information? ?? [facility] - About COVID-19: www.[employer].org/covid19 ?? CDC - What to Do If You're Sick: www.cdc.gov/coronavirus/2019-ncov/about/uppqs-obwb-hvgs.html ?? CDC - Ending Home Isolation: www.cdc.gov/coronavirus/2019-ncov/hcp/iokheqknrrn-ru-sahc-patients.html ?? CDC - Caring for Someone: www.cdc.gov/coronavirus/2019-ncov/ow-vzl-zqo-sick/kcft-nrn-xgmppfw.html ?? [facility] - Interim Guidance for Hospital Discharge to Home: www.health.[facility].in./diseases/coronavirus/hcp/hospdischarge.pdf ?? [facility] clinical trials (COVID-19 research studies): clinicalaffairs.[facility]/xzd-eorvuqzp-ttdgjt ?? Below are the COVID-19 hotlines at the Critical access hospital ([facility]). Interpreters are available. ? For health questions: Call 667-694-9450 or (7 a.m. to 7 p.m.) ? For questions about schools and childcare: Call 779-434-8312 or (7 a.m. to 7 p.m.) For informational purposes only. Not to replace the advice of your health care provider. Clinically reviewed by the Infection Prevention Team.Copyright ?? 2020 [facility]. All rights reserved. [employer] [id number] - 10/01. documented in this encounter Progress Notes Michelle Duran PA-C - 11/07/2019 8:25 AM CDT HPI November 07, 2019 HPI: Lacey Nolasco is a 39 year old female who complains of moderate sinus pressure, nasal congestion, and cough onset 3 weeks ago. She reports symptoms began as sore throat & bilateral ear pressure which have resolved. Patient's 2 children have similar symptoms. Symptoms are constant in duration. She has been taking OTC allergy meds without improvement. Denies fever/chills, [place], CP, SOB, myalgias, abd pain, N/V/D, rash, or any other symptoms. Pt had COVID-19 test 10 days ago which was negative. Past Medical History: Diagnosis Date ??? Complication [...] Allen Mahajan MD; Location: [facility] OR ??? LAPAROSCOPY DIAGNOSTIC (SUPPORT TEACHER) 04/23/2011 Procedure:LAPAROSCOPY DIAGNOSTIC (SUPPORT TEACHER); LAPAROSCOPY DIAGNOSTIC, pelvic exam under anesthesia, Fulguration Of Endometriosis; Surgeon:ALLEN MAHAJAN; Location:[facility] OR ??? NECK SURGERY june 2010 ??? SPINE SURGERY cervical disc replacement ??? TONSILLECTOMY Social History Tobacco Use ??? Smoking status: Never Smoker ??? Smokeless tobacco: Never Used Substance Use Topics ??? Alcohol use: Yes Frequency: 2-4 times a month Drinks per session: 1 or 2 Comment: occas ??? Drug use: No Patient Active Problem List Diagnosis ??? Head ache ??? Uterine contractions or other obstetric complaints ??? Labor and delivery, indication for care ??? Vaginal delivery Family History Problem Relation Age of Onset ??? Heart Disease Father ??? Lung Cancer Cousin ??? Leukemia Maternal Aunt Problem list, Medication list, Allergies, and Medical/Social/Surgical histories reviewed in [facility] andupdated as appropriate. Review of Systems Constitutional: Negative for chills and fever. HENT: Positive for congestion and sinus pain. Respiratory: Positive for cough. Negative for shortness of breath. Cardiovascular: Negative for chest pain. Gastrointestinal: Negative for abdominal pain, diarrhea, nausea and vomiting. Skin: Negative for rash. Neurological: Negative for focal weakness and headaches. All other systems reviewed and are negative. Physical Exam Vitals signs and nursing note reviewed. HENT: Head: Normocephalic and atraumatic. Right Ear: External ear normal. A middle ear effusion is present. Tympanic membrane is not erythematous. Left Ear: Tympanic membrane and external ear normal. Nose: Mucosal edema present. Right Sinus: Maxillary sinus tenderness present. Left Sinus: Maxillary sinus tenderness present. Mouth/Throat: Mouth: Mucous membranes are moist. Pharynx: Oropharynx is clear. Cardiovascular: Rate and Rhythm: Normal rate and regular rhythm. Heart sounds: Normal heart sounds. Pulmonary: Effort: Pulmonary effort is normal. Breath sounds: Normal breath sounds. Musculoskeletal: Normal range of motion. Skin: General: Skin is warm and dry. Neurological: Mental Status: She is alert and oriented to person, place, and time. Vital Signs Pulse 81 Temp 98.9 ??F (37.2 ??C) (Oral) SpO2 97% No Diagnostic Test Results: none ASSESSMENT/PLAN ICD-10-CM 1. Acute sinusitis with symptoms > 10 days J01.90 amoxicillin-clavulanate (AUGMENTIN) 875-125 MG tablet No acute distress or toxicity noted. No accessory muscle usage or obvious tachypnea, pt breathing comfortably. Lungs CTAB, no signs of pneumonia. Due to sinus pressure & tenderness will treat for sinusitis with Augmentin. Also recommended Flonase. Did discuss approx 30% chance of false negative with COVID- 19 testing and recommended pt get repeat test, but she declines this. PPE worn during exam: face shield, surgical mask, gown, & gloves. I have discussed any lab or imaging results, the patient's diagnosis, and my plan of treatment with the patient and/or family. Patient is aware to come back in if with worsening symptoms or if no relief despite treatment plan. Patient voiced understanding and had no further questions. Follow Up: Return in about 2 weeks (around 11/21/2019) for Follow up w/ primary care provider if not better. GIANNI Joes PA-C [facility] documented in this encounter Plan of Treatment Not on filedocumented as of this encounter Visit Diagnoses Diagnosis Acute sinusitis with symptoms > 10 days - Primary Acute sinusitis, unspecified documented in this encounter Care Teams Construction Mgr Relationship Specialty Start Date End Date Medardo Graf PCP - General Family Practice 11/15/18 [facility] [address] [place] [address] documented as of this encounter
--- OUTSIDE RECORDS SUMMARY | 2022-03-23 17:26 | XMS_ITS | Encounter Summary ---
:1980 Author Organization [place] Address [address] [place] [address] Care Team Providers Name Role Phone Medardo Graf Primary Care Provider Encounter Details Date Type Department Care Team Description 08/27/2019 Orders Only [facility] Arias Galicia Screen ing for viral Clinic Christine Bustillo MD disease Laboratory [address] [facility] [id number] [place] [id number] [place] [address] (Wo rk) [address] [phone] Social History Tobacco Use Types Packs/Day Years [...] been in contact with No / Unsure 08/27/2019 10:51 AM CDT someone who was confirmed or suspected to have Coronavirus / COVID-19? documented as of this encounter Plan of Treatment Not on filedocumented as of this encounter Procedures Procedure Name Priority Date/Time Associated Diagnosis Comme nts COVID-19 SPIKE RBD Routine 08/27/2019 10:52 AM Screening for v iral Results for this [facility]ENT[employer] TITER REFLEX CDT disease procedure are in the results section. documented in this encounter Results COVID-19 Virus (Coronavirus) Antibody (08/27/2019 10:52 AM CDT) Analysis Performed At Patho logist Time Signature COVID-19 Jesus Negative 08/30/2019 [facility] 9:30 AM CDT [facility], [facility] Comment: No COVID-19 antibodies detected. ??Patie nts within 10 days of symptom onset for COVID-19 may not produce sufficient lev els of detectable antibodies. ?? Immunocompromised COVID-19 patients may take longer to develop antibodies. COVID-19 Jesus RBD Not Applicable 08/30/2019 9: 30 AM CDT [facility] DIAGNOSTIC LABORATOR Y, [facility] Comment: Qualitative screen for total antibodies to COVID-19 (SARS-CoV-2) with semi-quantitative measurement of IgG COV ID-19 antibodies by endpoint titer. ?? COVID-19 antibodies may be elevated due to a past or current infection. Negative results do not rule out COVID-1 9 infection. ??Results from antibody testing should not be used as the sole b asis to diagnose or exclude SARS-CoV-2 infection or to inform infection status . ??COVID-19 PCR test should be ordered if current infection is suspected. ??Fa lse positive results may occur in rare cases due to cross-reacting antibodies. This test was developed and its performa nce characteristics determined by the [facility] ([facility]), which is regulated under CLIA as qualifi ed to perform high-complexity testing. ??This test has not been reviewed by e FDA. Testing performed by [facility], [facility], [address], [address], [place] [address] Specimen Anatomical Collection Method Collection Time Receive d Time (Source) Location / / Volume Laterality Blood specimen 08/27/2019 10:52 0 (specimen) AM CDT 10:53 AM CDT Arias Galicia MD LAB - BLOOD ORDERABLES Performing Organization Address City/State/ZIP Code [place] [address] DIAGNOSTIC LABORATORY, [address] [facility] [address] documented in this encounter Visit Diagnoses Diagnosis Screening for viral disease Special screening examination for unspec ified viral disease documented in this encounter Care Teams Front Line Supervisor Relationship Specialty Start Date End Date Medardo Graf PCP - General Family Practice 11/15/18 [facility] [address] [place] [address] documented as of this encounter
--- OUTSIDE RECORDS SUMMARY | 2022-03-23 17:26 | XMS_ITS | Encounter Summary ---
:1980 Author Organization [facility] Address [address] [place] [address]. [place] [address] Care Team Providers Name Role Phone Ghanshyam Hassan Primary Care Provider Reason for Visit Reason Comments Neck Pain Encounter Details Date Type Department Care Team Description 03/23/2018 Emergency [facility] John Joyce DO [facility] [address] [place] [address] Neck pain; [facility] Emergency Dep t Allen Ayon MD [facility] [address] [place] [address] Strain of neck muscle, initial encounter [address] [place] [place] [address] Social History Tobacco Use Types Packs/Day Years [...] Sign Reading Time Taken Comments Blood Pressure 127/85 03/23/2018 9:00 PM [employer] Pulse 77 03/23/2018 9:00 PM [employer] Temperature 37 ??C (98.6 ??F) 03/23/2018 6:52 PM [employer] Respiratory Rate 16 03/23/2018 9:00 PM [employer] Oxygen Saturation 97% 03/23/2018 9:00 PM [employer] Inhaled Oxygen Concentration - - Weight 74.8 kg (165 lb) 03/23/2018 6:52 PM [employer] Height - - Body Mass Index 26.63 11/04/2017 7:27 PM CDT documented in this encounter Discharge Instructions Discharge InstructionsAllen Ayon MD - 03/23/2018 9:42 PM [employer] Discharge Instructions Neck Strain You have been seen today for a neck sprain or strain. Neck strains usually result from an injury to the neck. Car accidents, contact sports and falls are common causes of neck strain. Sometimes your neck can start to hurt because of increased activity, muscle tension, an abnormal sleeping position, orbecause of other problems like arthritis in the neck. Neck pain usually comes from injured muscles and ligaments. Sometimes there is a herniated (?slipped?) disc. We don?t usually do MRI scans to look for these right away, since most herniated discs will get better on their own with time. Today, we did not find any evidence that your neck pain was causedby a serious condition, such as an infection, fracture, or tumor. However, sometimes symptoms develop over time and cannot be found during an emergency visit, so it is very important that you follow upwith your primary doctor. Return to the Emergency Department if: You have increasing pain in your neck. You develop difficulty swallowing or breathing. You have numbness, weakness, or trouble moving your arms or legs. You have severe dizziness and difficulty walking. You are unable to control your bladder or bowels. You develop severe headache or ringing in the ears. Call your doctor if: Your neck pain is not controlled with the medicine we gave you. You are not back to normal within 1 week. What can I do to help myself at home? If you had an injury, use cold for the first 1-2 days. Cold helps relieve pain and reduce inflammation. Apply ice packs to the neck or areas of pain every 1-2 hours for 20 minutes at a time. Place a towel or cloth between your skin and the ice pack. After the first 2 days, using heat can help with neck pain and stiffness. You may use a warm shower or bath, warm towels on the neck, or a heating pad. Do not sleep with a heating pad, as you can be burned. Pain medications - You may take a pain medication such as Tylenol?? (acetaminophen), Advil??, Nuprin?? (ibuprofen) or Aleve?? (naproxen). If you have been given a narcotic such as Vicodin?? (hydrocodone with acetaminophen), Percocet?? (oxycodone with acetaminophen), codeine, or a muscle relaxant such as Flexeril?? (cyclobenzaprine) or Soma?? (carisoprodol), do not drive for four hours after you have taken it. If the narcotic contains Tylenol?? (acetaminophen), do not take Tylenol?? with it. All narcotics will cause constipation, so eat a high fiber diet. It is usually best to rest the neck for 1-2 days after an injury, then start gentle stretching exercises. It is helpful to place a small pillow under the nape of your neck to provide proper neutral positioning. You should stay active and do your usual work as much as you can, unless this involves heavy physical labor. Ask your doctor if you need work restrictions. If you were given a prescription for [...] call or return to the Emergency Department. Opioid Medication Information Pain medications are among the most commonly prescribed medicines, so we are including this information for all our patients. If you did not receive pain medication or get a prescription for pain medicine, you can ignore it. You may have been given a prescription for an opioid (narcotic) pain medicine and/or have received apain medicine while here in the Emergency Department. These medicines can make you drowsy or impaired. You must not drive, operate dangerous equipment, or engage in any other dangerous activities whiletaking these medications. If you drive while taking these medications, you could be arrested for DUI, or driving under the influence. Do not drink any alcohol while you are taking these medications. Opioid pain medications can cause addiction. If you have a history of chemical dependency of any type, you are at a higher risk of becoming addicted to pain medications. Only take these prescribed medications to treat your pain when all other options have been tried. Take it for as short a time and asfew doses as possible. Store your pain pills in a secure place, as they are frequently stolen and provide a dangerous opportunity for children or visitors in your house to start abusing these powerful medications. We will not replace any lost or stolen medicine. As soon as your pain is better, you should flush all your remaining medication. Many prescription pain medications contain Tylenol?? (acetaminophen), including Vicodin??, Tylenol #3??, [place]??, Lortab??, and Percocet??. You should not take any extra pills of Tylenol?? if you are using these prescription medications or you can get very sick. Do not ever take more than 3000 mg of acetaminophen in any 24 hour period. All opioids tend to cause constipation. Drink plenty of water and eat foods that have a lot of fiber, such as fruits, vegetables, prune juice, apple juice and high fiber cereal. Take a laxative if you don?t move your bowels at least every other day. Miralax??, Milk of Magnesia, Colace??, or Senna?? can be used to keep you regular. Remember that you can always come back to the Emergency Department if you are not able to see your regular doctor in the amount of time listed above, if you get any new symptoms, or if there is anything that worries you. [employer] documented in this encounter Medications at Time of Discharge Medication Sig Dispensed Refills Start Date End Date valACYclovir (VALTREX) 500 0 8 MG tablet albuterol (PROVENTIL HFA) Inhale 1-2 puffs 0 12/1403/21/2020 108 (90 Base) MCG/ACT into the lungs inhaler diazepam (VALIUM) 5 MG Take 1 tablet (5 10 tablet 0 018 04/21/2019 tablet mg) by mouth every 6 hours as needed for muscle spasms (spasms) naproxen (NAPROSYN) 250 MG Take 250 mg by 0 04/21/2019 tablet mouth 2 times daily (with meals) oxyCODONE-acetaminophen Take 1 tablet by 0 04/21/2019 (PERCOCET) 5-325 MG tablet mouth every 6 hours as needed for severe pain documented as of this encounter ED Notes Eli Ayala RN - 03/23/2018 6:56 PM CST Friday pt developed pain in right neck and head. Pt seen urgent care and given flexeril with no relief. Seen here Friday and given toradol and valium with no relief. Friday pt went to [facility] and had a CT scan and given more meds with some relief. Pt went to clinic today and had some repeat labs and had elevated WBC and CRP and sent here for further eval. Pt reports that she had 3 moles removed about 3 weeks ago and wondering if this is related. [employer] Allen Ayon MD - 03/23/2018 6:33 PM CST History Chief Complaint: Neck pain HPI Lacey Nolasco is a 38 year old female with a history of cervical disc replacement who presents with ongoing neck pain. The patient states that approximately 3 days ago she developed a right sided neck pain that coincided with a professional massage to the area. She was experiencing uncontrolled neck pain, starting mostly in her occipital scalp and radiating down into her neck and shoulder. She wasseen here at that time on 01/19 and received Toradol as well as Valium and ultimately discharged homethough the patient reports her pain was still poorly controlled at that time. The next day (03/22) the patient was having 12/10 pain that had no relief with her Valium and she was seen and evaluated at [facility] ED. The patient reports extensive evaluation including CT-scan and blood work which was showed, among other things, an elevated white count as well as elevated CRP. She was discharged home on Percocet, Valium, Naproxen after receiving 16 mg total Morphine IV with only temporary relief. She was seen at her clinic today for routine visit scheduled prior to her pain had started and while there they reviewed her previous visits and she was subsequently referred back to the ED for MRI imaging, given her constellation of symptoms. The patient states that her neck pain currently is significantly worse compared to her previous visit and has changed in characteristic. She describes a pain that localizes around her right temporal and occipital area, radiating down her right side of herneck and terminating into her shoulder and upper back. She notes that it is difficult to swallow dueto pain but is having no trouble breathing. She likewise notes that moving or ranging her neck in any direction will provoke the pain. Her current pain medication is not working at home. She has had intermittent subjective fevers and chills over the past 3 days. She otherwise denies abdominal pain, numbness/weakness/tingling in the arms or legs, chest pain, shortness of breath, neurological changes such as slurred speech or confusion. Laboratory Results 03/22/19 [facility] CBC: WBC 9.92, HGB 13.6, PLT 231 Neut %: 83.2 % (H), Lymph 9.7% (L), Neut # 8.25 (H), C-Reactive Protein 3.10 mg/dL (H), o/w WNL (Creatinine 0.8) Laboratory Results 03/23/19 [facility] CBC: WBC 13.9 (H), HGB 13.3, PLT 257 Neut % 86.7 % (H), Lymph % 6.3 % (L), Neut # 12.1 (H), [place] # 1.0 K/UL, o/w WNL CT/Head W/O Contrast No radiographic evidence of acute intracranial abnormality. Arias Campa MD Reading per radiology Allergies: Ambien [Zolpidem Tartrate] Medications: Albuterol inhaler Valium Naproxen Percocet Valtrex Past Medical History: The patient does not have any past pertinent medical history. Past Surgical History: D&C ablate endometrium Neck surgery Cervical disc replacement Tonsillectomy Family History: History reviewed. No pertinent family history. Social History: Smoking Status: never Smoker Alcohol Use: No Patient presents with Marital Status: Review of Systems Constitutional: Positive for chills and fever. Respiratory: Negative for cough and shortness of breath. Cardiovascular: Negative for chest pain. Musculoskeletal: Positive for back pain and neck pain. Neurological: Positive for headaches. Negative for dizziness, speech difficulty, weakness and numbness. Psychiatric/Behavioral: Negative for confusion. All other systems reviewed and are negative. Physical Exam First Vitals: BP: 130/86 Pulse: 74 Heart Rate: 77 Temp: 98.6 ??F (37 ??C) Resp: 16 Weight: 74.8 kg (165 lb) SpO2: 98 % Physical Exam General: The patient is alert, in no respiratory distress. HENT: Mucous membranes moist. Cardiovascular: Regular rate and rhythm. Good pulses in all four extremities. Normal capillary refill and skin turgor. Respiratory: Lungs are clear. No nasal flaring. No retractions. No wheezing, no crackles. Musculoskeletal: No gross deformity. No midline cervical spine tenderness. Spasm of right trapezius and scalenes. Pain with rotation of her neck. Skin: No rashes or petechiae. Neurologic: The patient is alert and oriented x3. GCS 15. No testable cranial nerve deficit. Followscommands with clear and appropriate speech. Gives appropriate answers. Good strength in all extremities. No gross neurologic deficit. Gross sensation intact. Pupils are round and reactive. No meningismus. Lymphatic: No cervical adenopathy. No lower extremity swelling. Psychiatric: The patient is tearful. Emergency Department Course Imaging: Radiology findings were communicated with the patient who voiced understanding of the findings. CTA Head Neck with Contrast Patent arteries in the head and neck without vascular cutoff. No evidence of dissection. No aneurysm identified. No significant stenosis. JOSE LUIS FAGAN MD Reading per radiology Head CT w/o contrast No evidence of acute intracranial hemorrhage, mass, or herniation. JOSE LUIS FAGAN MD Reading per radiology Interventions: Medications HYDROmorphone (PF) (DILAUDID) injection 0.5 mg (0.5 mg Intravenous Given 03/23/182036) ondansetron (ZOFRAN) injection 4 mg (4 mg Intravenous Given 03/23/182034) iopamidol (ISOVUE-370) solution 500 mL (70 mLs Intravenous Given 03/23/182046) 0.9% sodium chloride BOLUS (0 mLs Intravenous Stopped 03/23/182047) ketorolac (TORADOL) injection 30 mg (30 mg Intravenous Given 03/23/182119) Emergency Department Course: 1851 Nursing notes and vitals reviewed. 2019 I performed an exam of the patient as documented above. 2045 The patient was sent for a CT while in the emergency department, results above. 2140 Recheck and update. Discussed imaging results, patient is ready to go home. 2149 I personally reviewed the imaging results with the patient and answered all related questions prior to discharge. Impression & Plan Medical Decision Making: Lacey Nolasco is a 38 year old female who had been seen previously in the ER, as well as a visit to her primary care doctor, and urgent care. Labs were reviewed and her white count was up to 14. I think this is likely secondary to pain, her ESO is also mildly elevated. I did review her record, she had a previous surgery on her neck, but here was no midline tenderness of her neck. It was actually all off to the right. The muscles are tender. She said it is from a massage, that has resulted in somesoreness and when she turned her head she had severe pain. This is more consistent with musculoskeletal. I did consider dissection and therefore ordered a CTA, which was negative. The patient reports that she has been better after some pain medication here and she was discharged home with further outpatient follow up and a MRI could be ordered by her primary care if they were worried about other processes like herniated disc that was not an emergent condition and would no meet criteria for the ER. Otherwise she is fully intact. Diagnosis: ICD-10-CM 1. Neck pain M54.2 2. Strain of neck muscle, initial encounter S16.1XXA Disposition: The patient is discharged to home. Discharge Medications: Review of your medicines UNREVIEWED medicines. Ask your doctor about these medicines Dose / Directions diazepam 5 MG tablet Commonly known as: VALIUM Dose: 5 mg Take 1 tablet (5 mg) by mouth every 6 hours as needed for muscle spasms (spasms) Quantity: 10 tablet Refills: 0 naproxen 250 MG tablet Commonly known as: NAPROSYN Dose: 250 mg Take 250 mg by mouth 2 times daily (with meals) Refills: 0 oxyCODONE-acetaminophen 5-325 MG tablet Commonly known as: PERCOCET Dose: 1 tablet Take 1 tablet by mouth every 6 hours as needed for severe pain Refills: 0 PROVENTIL HFA 108 (90 Base) MCG/ACT inhaler Generic drug: albuterol Dose: 1-2 puff Inhale 1-2 puffs into the lungs Refills: 0 valACYclovir 500 MG tablet Commonly known as: VALTREX Refills: 0 Scribe Disclosure: IRadha, am serving as a scribe at 8:27 PM on 03/23/2018 to document services personally performed by Allen Ayon MD based on my observations and the provider's statements to me. Holden Salgado 03/23/2018 [facility] EM[facility] I, Holden Salgado, am serving as a scribe at 7:47 PM on 03/23/2018 to document services personally performed by Allen Ayon MD based on my observations and the provider's statements to me. Allen Ayon MD 03/23/18 6263 [employer] documented in this encounter Plan of Treatment Not on filedocumented as of this encounter Procedures Procedure Name Priority Date/Time Associated Diagnosis Comme nts CTA HEAD NECK W STAT 03/23/2018 9:03 PM Result s for this [employer] procedure are i n the results section. CT HEAD W/O STAT 03/23/2018 9:02 PM Results f or this [employer] procedure are i n the results section. documented in this encounter Results CTA Head Neck with Contrast (03/23/2018 9:03 PM [employer]) Anatomical Region Laterality Modality Head, SUBRAD CT NEURO, SUBRAD CT NEURO, UMP CT NEURO, Computed Tomography RAD CT Specimen (Source) Anatomical Location Collection Method / Collectio n Time Received Time / Laterality Volume Impressions 03/23/2018 10:02 PM [employer] IMPRESSION: Patent arteries in the head and neck without vascular cutoff. No evidence of dissection. No an eurysm identified. No significant stenosis. ?? JOSE LUIS FAGAN MD Narrative 03/23/2018 10:[address] [employer] [address] ANGIOGRAM OF THE HEAD AND NECK WITH CONTRAST ??03/23/2018 9:03 PM HISTORY: Headache, sudden, carotid/verte bral dissection suspected. TECHNIQUE: ??CT angiography with an inje ction of 70mL Isovue-370 IV with scans through the head and neck. Im ages were transferred to a separate 3-D workstation where multiplan ar reformations and 3-D images were created. Estimates of carotid steno ses are made relative to the distal internal carotid artery diameters except as noted. Radiation dose for this scan was reduced using aut omated exposure control, adjustment of the mA and/or kV according to patient size, or iterative reconstruction technique. COMPARISON: MRA of the head 11/03/2011. CT HEAD FINDINGS: No contrast enhancing lesions. Cerebral blood flow is grossly normal. CT ANGIOGRAM HEAD FINDINGS: ??The major intracranial arteries including the proximal branches of the anterior ce rebral, middle cerebral, and posterior cerebral arteries appear paten t without vascular cutoff. No aneurysm identified. No significant sten osis. Venous circulation is unremarkable. CT ANGIOGRAM NECK FINDINGS: Normal origin of the great vessels from the aortic arch. Right carotid artery: The right common a nd internal carotid arteries are patent. No significant stenosis or a therosclerotic disease in the carotid artery. Left carotid artery: The left common and internal carotid arteries are patent. No significant stenosis or ather osclerotic disease in the carotid artery. Vertebral arteries: Vertebral arteries a re patent without evidence of dissection. No significant stenosis. Other findings: Postoperative changes of anterior fusion from C6 to C7. Procedure Note Jose Luis Fagan MD - 03/23/2018 CT ANGIOGRAM OF THE HEAD AND NECK WITH Ml BECKERRASHellen 03/23/2018 9:03 PM HISTORY: Headache, sudden, carotid/verte bral dissection suspected. TECHNIQUE: CT angiography with an inject ion of 70mL Isovue-370 IV with scans through the head and neck. Im ages were transferred to a separate 3-D workstation where multiplan ar reformations and 3-D images were created. Estimates of carotid steno ses are made relative to the distal internal carotid artery diameters except as noted. Radiation dose for this scan was reduced using aut omated exposure control, adjustment of the mA and/or kV according to patient size, or iterative reconstruction technique. COMPARISON: MRA of the head 11/03/2011. CT HEAD FINDINGS: No contrast enhancing lesions. Cerebral blood flow is grossly normal. CT ANGIOGRAM HEAD FINDINGS: The major in tracranial arteries including the proximal branches of the anterior ce rebral, middle cerebral, and posterior cerebral arteries appear paten t without vascular cutoff. No aneurysm identified. No significant sten osis. Venous circulation is unremarkable. CT ANGIOGRAM NECK FINDINGS: Normal origin of the great vessels from the aortic arch. Right carotid artery: The right common a nd internal carotid arteries are patent. No significant stenosis or a therosclerotic disease in the carotid artery. Left carotid artery: The left common and internal carotid arteries are patent. No significant stenosis or ather osclerotic disease in the carotid artery. Vertebral arteries: Vertebral arteries a re patent without evidence of dissection. No significant stenosis. Other findings: Postoperative changes of anterior fusion from C6 to C7. IMPRESSION: Patent arteries in the head and neck without vascular cutoff. No evidence of dissection. No an eurysm identified. No significant stenosis. JOSE LUIS FAGAN MD Allen Ayon MD IMG CT ORDERABLES Head CT w/o contrast (03/23/2018 9:02 PM [employer]) Anatomical Region Laterality Modality Head, SUBRAD CT NEURO, SUBRAD CT NEURO, UMP CT NEURO, Computed Tomography RAD CT Specimen (Source) Anatomical Location Collection Method / Collectio n Time Received Time / Laterality Volume Impressions 03/23/2018 9:34 PM [employer] IMPRESSION: ?? No evidence of acute intracranial hemorrhage, mass, or herniation. JOSE LUIS FAGAN MD Narrative 03/23/2018 9:[address] [employer] [address] SCAN OF THE HEAD WITHOUT CONTRAST ?? 03/23/2018 9:02 PM HISTORY: Headache, sudden, carotid/verte bral dissection suspected. TECHNIQUE: ??Axial images of the head an d coronal reformations without IV contrast material. Radiation dose for this scan was reduced using automated exposure control, adjustment o f the mA and/or kV according to patient size, or iterative reconstruc tion technique. COMPARISON: Brain MR 11/03/2011. FINDINGS: There is no evidence of intrac ranial hemorrhage, mass, acute infarct or anomaly. The ventricles are n ormal in size, shape and configuration. The brain parenchyma and subarachnoid spaces are normal. The visualized portions of the sinuses a nd mastoids appear normal. The bony calvarium and bones of the skull ba se appear intact. Procedure Note Jose Luis Fagan MD - 03/23/2018 CT SCAN OF THE HEAD WITHOUT CONTRAST 01/2018 9:02 PM HISTORY: Headache, sudden, carotid/verte bral dissection suspected. TECHNIQUE: Axial images of the head and coronal reformations without IV contrast material. Radiation dose for this scan was reduced using automated exposure control, adjustment o f the mA and/or kV according to patient size, or iterative reconstruc tion technique. COMPARISON: Brain MR 11/03/2011. FINDINGS: There is no evidence of intrac ranial hemorrhage, mass, acute infarct or anomaly. The ventricles are n ormal in size, shape and configuration. The brain parenchyma and subarachnoid spaces are normal. The visualized portions of the sinuses a nd mastoids appear normal. The bony calvarium and bones of the skull ba se appear intact. IMPRESSION: No evidence of acute intracr anial hemorrhage, mass, or herniation. JOSE LUIS FAGAN MD Allen Ayon MD IMG CT ORDERABLES documented in this encounter Visit Diagnoses Diagnosis Neck pain Cervicalgia Strain of neck muscle, initial encounter documented in this encounter Administered Medications Inactive Administered Medications - up to 3 most recent administrations Medication Order MAR Action Action Date Dose Rate Site 0.9% sodium chloride BOLUS New Bag 03/23/2018 8:47 PM [employer] 80 mLs Intravenous, 100 mL, ONCE, On Fri03/23/18 at 2047, For 1 dose HYDROmorphone (PF) (DILAUDID) injection 0.5 Given 03/23/2018 8:37 PM [employer] 0.5 mg mg 0.5 mg, Intravenous, EVERY 15 MIN PRN, moderate to severe pain, Starting on Fri03/23/18 at 2022, For 3 doses, For ordered IV doses 0.1-4 mg give IV Push undiluted. Administer each 2mg over 2-5 minutes. iopamidol (ISOVUE-370) solution 500 mL Given 03/23/2018 8:47 PM [employer] 70 mLs 500 mL, Intravenous, ONCE, On Fri03/23/18 at 2047, For 1 dose ketorolac (TORADOL) injection 30 mg Given 03/23/2018 9:20 PM [employer] 30 mg 30 mg, Intravenous, ONCE, On Fri03/23/18 at 2114, For 1 dose, Can cause pain on injection. Administer through a running maintenance fluid over 1 minute followed by a flush. If patient complains of pain on injection, may dilute 15-30 mg in 5 mL and push over 1 to 2 minutes. 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 For ordered IV doses 0.1-4 mg, give IV Push undiluted over 2-5 minutes. documented in this encounter Active and Recently Administered Medications Times are shown in MANAGER TECHNICAL SALES. Scheduled Medication Order 03/21/2018 03/22/2018 03/23/2018 0.9% sodium chloride BOLUS (COMPLETED) 2046 (New Bag - Provider: Nicci Felipe)2047 (Stopped - Provider: Nicci Felipe) Intravenous, 100 mL, ONCE, Fri03/23/18 at 2047, For 1 dose iopamidol (ISOVUE-370) solution 500 mL (COMPLETED) 2046 (Given - Provider: Nicci Felipe) 500 mL, Intravenous, ONCE, Fri03/23/18 at 2047, For 1 dose ketorolac (TORADOL) injection 30 mg (COMPLETED) 2119 (Given - Provider: Cristel Oswald RN) 30 mg, Intravenous, ONCE, Fri03/23/18 a t 2114, For 1 dose, Can cause pain on injection. Administer through a running maintenance fluid over 1 minute followed by a flush. If patient complains of pain on injection, may dilute 15-30 mg in 5 mL and push over 1 to 2 min utes. ondansetron (ZOFRAN) injection 4 mg (COMPLETED) 2034 (Given - Provider: Krystin Block RN) 4 mg, Intravenous, ONCE, Administer over 2-5 Minutes, Fri03/23/18 at 2024, For 1 dose, Irritant. For ordered IV doses 0.1-4 mg, give IV Push undiluted over 2-5 minutes. PRN Medication Order 03/21/2018 03/22/2018 03/23/2018 HYDROmorphone (PF) (DILAUDID) injection 0.5 mg 2036 (Given - Provider: Krystin Block, LEELA) 0.5 mg, Intravenous, EVERY 15 MIN PRN, 3 doses, Starting Fri03/23/18 at 2022, Until Fri03/23/18 at 2351, moderate to severe pain, For ordered IV doses 0.1-4 mg give IV Push undiluted. Administer each 2mg over 2-5 minutes. documented in this encounter Care Teams Aircraft Pilot Relationship Specialty Start Date End Date Ghanshyam Hassan PCP - General 04/08/12 11/14/18 [id number] [address] [place] [id number] documented as of this encounter
--- OUTSIDE RECORDS SUMMARY | 2022-03-23 17:26 | XMS_ITS | Encounter Summary ---
:1980 Author Organization [facility] Address [address] [place] [id number] Care Team Providers Name Role Phone Ghanshyam Hassan Primary Care Provider Reason for Visit Reason Comments Neck Pain Encounter Details Date Type Department Care Team Description 03/21/2018 [facility] Jayson alfaro, Siobhan Barroso, DO Cervicalgia Emergency Dept [facility] [address] [place] [phone] [place], [place] [address] (Wo rk) Social History Tobacco Use Types [...] Sign Reading Time Taken Comments Blood Pressure 106/70 03/21/2018 6:09 PM TEST ENGINE MECHANIC Pulse 99 03/21/2018 4:55 PM TEST ENGINE MECHANIC Temperature 37 ??C (98.6 ??F) 03/21/2018 4:55 PM TEST ENGINE MECHANIC Respiratory Rate 16 03/21/2018 6:09 PM TEST ENGINE MECHANIC Oxygen Saturation 98% 03/21/2018 6:09 PM TEST ENGINE MECHANIC Inhaled Oxygen Concentration - - Weight - - Height - - Body Mass Index - - documented in this encounter Discharge Instructions Discharge InstructionsIsiahSiobhan - 03/21/2018 5:41 PM CST Images from the original note were not included. Neck Pain There are several possible causes of neck pain when there is no injury: ?? You can get a minor ligament sprain or muscle strain from a sudden minor neck movement. Sleeping with your neck in an awkward position can also cause this. ?? Some people respond to emotional stress by tensing the muscles of their neck, shoulders, and upper back. Chronic spasm in these muscles can cause neck pain and sometimes headaches. ?? Gradual??wear and tear of the joints in the spine can cause??degenerative arthritis. This can be a source of occasional or chronic neck pain. ?? The spinal disks may bulge and put pressure on a nearby spinal nerve. This can happen as a natural result of aging or repeated small injuries to the neck. The spinal disks are the cushions between each spinal bone. This causes tingling, pain, or numbness that spreads from the neck to the shoulder, arm, or hand on one side. Acute neck pain usually gets better in 1 to 2 weeks. Neck pain related to disk disease, arthritis inthe spinal joints, or spinal stenosis can become chronic and last for months or years. Spinal stenosis is narrowing of the spinal canal. X-rays are usually not ordered for the initial evaluation of neck pain. However, X-rays may be done if you had a forceful physical injury, such as a car accident or fall. If pain continues and doesn???t respond to medical treatment, X-rays and other tests may be done at a later time. Home care ?? Rest and relax the muscles. Use a comfortable pillow that supports the head. It should also help keep the spine in a neutral position. The position of the head should not be tilted forward or backward. A rolled up towel may help for a custom fit. ?? Some people find relief with??heat. Heat can be applied with either a warm shower or bath or??a moist towel heated in the microwave??and??massage.??Others prefer??cold packs. You can make an ice pack by filling a plastic bag that seals at the top with ice cubes or crushed ice and then wrapping it with a thin towel.??Try both and use the method that feels best for??15 to??20 minutes, several times a day. ?? Whether using ice or heat, be careful that you do not injure your skin. Never put ice directly onthe skin. Always wrap the ice in a towel or other type of cloth.This is very important, especially in people with poor skin sensations.? Try to reduce your stress level. Emotional stress can lead to neck muscle tension and get in the way of or delay the healing process. ?? You may use??dwxd-igr-chsfuty pain medicine??to control pain, unless another medicine was prescribed. If you have chronic liver or kidney disease or ever had a stomach ulcer or GI bleeding, talk with your healthcare provider before??using these medicines. Follow-up care Follow up with your healthcare provider if your symptoms do not show signs of improvement after one week. Physical therapy or further tests may be needed. If X-rays, CT scans, or MRI scans were taken, you will be told of any new findings that may affect your care. Call 911 Call 911 if you have: ?? Sudden??weakness or numbness in one or both arms ?? Neck swelling, difficulty or painful swallowing ?? Difficulty breathing ?? Chest pain When to seek medical advice Call your healthcare provider right away if any of these occur: ?? Pain becomes worse or spreads into one or both arm ?? Increasing headache ?? Fever of 100.4??F (38??C) or higher, or as directed by your healthcare provider Date Last Reviewed: 10/13/2015 ?? [id number] [employer] [address] [place] [address], [place] [address]. All rights reserved. This information is not intended as a substitute for professional medical care. Always follow your healthcare professional's instructions. ENGINE MECHANIC documented in this encounter Medications at Time [...] hours as needed for muscle spasms (spasms) documented as of this encounter ED Notes Selin Franz RN - 03/21/2018 4:56 PM CST Patient states that starting Friday she started to have severe neck pain. Denies trauma or injury. Unable to turn neck side to side or flex and extend. Also states that it is getting hard to swallow. Was seen at and given muscle relaxers with no relief. Pain 12/22. 2011 had surgery C6/C7 artifical discs placed. ENGINE MECHANIC Siobhan Joyce DO - 03/21/2018 4:43 PM CST History Chief Complaint: Neck Pain HPI Lacey Nolasco is a 38 year old female who presents with neck pain. The patient reports she had a massage 3 days ago and then had an onset of neck pain, predominantly on the right side that evening, and was seen at Urgent Care where she was prescribed Flexeril. Patient has taken Flexeril and ibuprofen without any improvement of her pain. She endorses mild nausea. Otherwise denies vomiting, numbnessor tingling, fevers, or any other symptoms at this time. No illicit drug use. No past history of cancer or recent trauma. Allergies: Ambien Medications: The patient is currently on no regular medications. Past Medical History: The patient does not have any past pertinent medical history. Past Surgical History: D&C duction, ablate endometrium novasure Neck surgery Spine surgery Tonsillectomy Family History: History reviewed. No pertinent family history. Social History: Smoking status: Never smoker Alcohol use: No Marital Status: [2] PCP: Ghanshyam Hassan Accompanied to the ED by friend. Review of Systems Constitutional: Negative for fever. Gastrointestinal: Positive for nausea. Negative for vomiting. Musculoskeletal: Positive for neck pain. Neurological: Negative for numbness. All other systems reviewed and are negative. Physical Exam Patient Vitals for the past 24 hrs: BP Temp Temp src Pulse Heart Rate Resp SpO2 03/21/18 1809 106/70 - - - 93 16 98 % 03/21/18 1730 - - - - - - 100 % 03/21/18 1715 - - - - - - 100 % 03/21/18 1655 (!) 123/96 98.6 ??F (37 ??C) Oral 99 - 18 100 % Physical Exam General: Resting comfortably Head: The scalp, face, and head appear normal Eyes: The pupils are normal Conjunctivae and sclera appear normal ENT: The nose is normal Neck: Normal range of motion; Reproducible R. Paracervical/trapezial tenderness. MSK: Moves all extremities equally. No c/t/l spine bony tenderness. Skin: No rash or lesions noted. Psych: Awake. Alert. Normal affect. Neuro: Speech is normal and fluent. Face is symmetric. EOMI. PERRL. Moves all extremities. Goldsmith Apprentice strength equal bilaterally. Equal sensation bilaterally on UE. Gait stable Emergency Department Course Laboratory: ISTAT HCG: <5.0 Interventions: 1750: Valium 5 mg oral 1751: Toradol 30 mg IM Emergency Department Course: Past medical records, nursing notes, and vitals reviewed. 1719: I performed an exam of the patient and obtained history, as documented above. 1800: Patient reports some improvement in her pain. Patient was given the above interventions while here in the emergency department. I rechecked the patient. Findings and plan explained to the Patient. Patient discharged home with instructions regarding supportive care, medications, and reasons to return. The importance of close follow-up was reviewed. Impression & Plan Medical Decision Making: Lacey Nolasco is a 38 year old female who presents for evaluation of neck pain. There is no radiculopathy. Clinical examination is consistent with muscle spasm. I doubt fracture, ligamentous instability, myelopathy, spinal tumor or abscess at this time. I do not feel there are other worrisome etiologies at this time to prompt CT/MRI of neck/spine. I discussed worrisome symptoms/signs, if they were to evolve, that should prompt the patient to follow up more quickly or return to the ED. There are no red flag symptoms to suggest we need further workup or advanced imaging at this point. Supportive outpatient management is indicated. Counseled patient to continue ibuprofen and will dispo home with valium in replace of her flexeril as she reports greater improvement with this medication. Range of motion exercises discussed. PCP f/u 2-3 days for reevaluation. Diagnosis: ICD-10-CM 1. Cervicalgia M54.2 Disposition: discharged to home Discharge Medications: Details diazepam (VALIUM) 5 MG tablet Take 1 tablet (5 mg) by mouth every 6 hours as needed for muscle spasms (spasms), Disp-10 tablet, R-0, Local Print Fany Hdz 03/21/2018 [facility] EM[facility] IFany Do, am serving as a scribe at 5:19 PM on 03/21/2018 to document services personally performedby Siobhan Joyce DO based on my observations and the provider's statements to me. Siobhan Joyce DO 03/21/[id number] ENGINE MECHANIC documented in this encounter Plan of Treatment Not on filedocumented as of this encounter Procedures Procedure Name Priority Date/Time Associated Diagnosis Comme nts ISTAT HCG Routine 03/21/2018 5:39 PM Cervicalgia Results f or this QUANTITATIVE TEST ENGINE MECHANIC procedure are i n POCT the results section. documented in this encounter Results ISTAT HCG Quantitative POCT (03/21/2018 5:39 PM TEST ENGINE MECHANIC) P athologist Signature HCG Quantitative <5.0 <5.0 IU/L 03/21/2018 POINT OF CAR E Serum 5:52 PM TEST ENGINE MECHANIC TEST, HANDHELD METER Specimen Anatomical Collection Method Collection Time Receive d Time (Source) Location / / Volume Laterality 03/21/2018 5:39 PM 8 5:52 TEST ENGINE MECHANIC PM TEST ENGINE MECHANIC Siobhan Joyce DO LAB - BEAKER POCT Performing Organization Address City/State/ZIP Code Phon e Number [facility] POINT OF CARE TEST, HANDHELD METER POINT OF CARE TEST, HANDHELD METER documented in this encounter Visit Diagnoses Diagnosis Cervicalgia documented in this encounter Administered Medications Inactive Administered Medications - up to 3 most recent administrations Medication Order MAR Action Action Date Dose Rate Site diazepam (VALIUM) tablet 5 mg Given 03/21/2018 5:50 PM TEST ENGINE MECHANIC 5 mg 5 mg, Oral, ONCE, On 03/21/18 at 1725, For 1 dose ketorolac (TORADOL) injection 30 mg Given 03/21/2018 5:51 PM TEST ENGINE MECHANIC 30 mg 30 mg, Intramuscular, ONCE, On 03/21/18 at 1725, For 1 dose, Can cause pain on injection. Administer through a running maintenance fluid over 1 minute followed by a flush. If patient complains of pain on injection, may dilute 15-30 mg in 5 mL and push over 1 to 2 minutes. documented in this encounter Active and Recently Administered Medications Times are shown in TEST ENGINE MECHANIC. Scheduled Medication Order 03/19/2018 03/20/2018 03/21/2018 diazepam (VALIUM) tablet 5 mg (COMPLETED) 1750 (Given - Provider: Kenzie Groves RN) 5 mg, Oral, ONCE, 03/21/18 at 1725, For 1 dose ketorolac (TORADOL) injection 30 mg (COMPLETED) 1751 (Given - Provider: Kenzie Groves RN) 30 mg, Intramuscular, ONCE, 03/21/18 at 1725, For 1 dose, Can cause pain on injection. Administer through a running maintenance fluid over 1 minute followed by a flush. If patient complains of pain o n injection, may dilute 15-30 mg in 5 mL and push over 1 to 2 mi nutes. documented in this encounter Care Teams Customer Care Associate Relationship Specialty Start Date End Date Ghanshyam Hassan PCP - General 04/08/12 11/14/18 [id number] [address] [place] [id number] documented as of this encounter
--- OUTSIDE RECORDS SUMMARY | 2022-03-23 17:26 | XMS_ITS | Encounter Summary ---
:1980 Author Organization [facility] Address [address] [place] [address] Care Team Providers Name Role Phone Medardo Graf Primary Care Provider Reason for Visit Reason Comments Headache Nausea, Vomiting, & Diarrhea Encounter Details Date Type Department Care Team Description 11/15/2018 Emergency [facility] Ja Drew Cla, MD Viral gastroenteritis [facility] Emergency Dep t [facility] [address] [place] [address] [facility] [address] [place] [address] [phone] (Wo rk) Social History Tobacco Use Types [...] Sign Reading Time Taken Comments Blood Pressure 117/80 11/15/2018 5:45 PM CDT Pulse 94 11/15/2018 5:45 PM CDT Temperature 36.8 ??C (98.2 ??F) 11/15/2018 4:13 PM CDT Respiratory Rate 16 11/15/2018 5:45 PM CDT Oxygen Saturation 99% 11/15/2018 5:45 PM CDT Inhaled Oxygen Concentration - - Weight 83.9 kg (185 lb) 11/15/2018 4:13 PM CDT Height - - Body Mass Index 29.86 11/15/2018 3:33 PM CDT documented in this encounter Discharge Instructions Discharge InstructionsJa Drew MD - 11/15/2018 5:33 PM CDT Discharge Instructions Gastroenteritis You have been seen today for vomiting (throwing up) and diarrhea (loose stools), called gastroenteritis or the stomach flu. This is usually caused by a virus, but some bacteria, parasites, medicines orother medical conditions can cause similar symptoms. At this time your provider does not find that your vomiting and diarrhea is a sign of anything dangerous or life-threatening. However, sometimes thesigns of serious illness do not show up right away. Remember that serious problems like appendicitiscan look like gastroenteritis at first. Generally, every Emergency Department visit should have a follow-up clinic visit with either a primary or a specialty clinic/provider. Please follow-up as instructed by your emergency provider today. Return to the Emergency Department if: You keep vomiting and you are not able to keep liquids down. You feel you are getting dehydrated, such as being very thirsty, not urinating (peeing), or feeling faint or lightheaded. You develop a new fever. You have abdominal (belly) pain that seems worse than cramps, is in one spot, or is getting worse over time. You have blood in your vomit or in your diarrhea. You feel very weak. What can I do to help myself? The most important thing to do is to drink clear liquids. If you have been vomiting a lot, it is best to have only small, frequent sips of liquids. Drinking too much at once may cause more vomiting. Water is a good first option for rehydration. If you are vomiting often, you must also replace electrolytes (salts and minerals) lost with your illness. Pedialyte?? is the best rehydration liquid but manydon???t like the taste so sports drinks (like Gatorade??) are a good option. Sodas and juice are also options but are high in sugar. Avoid acid liquids (orange), caffeine (coffee) or alcohol. Do not drink milk until you no longer have diarrhea. After liquids are staying down, you may start eating mild foods. Soda crackers, toast, plain noodles, gelatin, applesauce and bananas are good first choices. Avoid foods that have acid, are spicy, fatty or fibrous (such as meats, coarse grains, vegetables). You may start eating these foods again in about 3 days when you are better. Sometimes treatment includes prescription medicine to prevent nausea (sick to your stomach) and vomiting and to prevent diarrhea. If your provider prescribes these for you, take them as directed. Nonprescription medicine is available for the treatment of diarrhea and can be very effective. If you use it, make sure you use the dose recommended on the package. Avoid Lomotil??. Check with your healthcare provider before you use any medicine for diarrhea. Do not take ibuprofen, or other nonsteroidal anti-inflammatory medicines without checking with your healthcare provider. If you were given a prescription for [...] if there is anything that worries you. documented in this encounter Medications at Time of Discharge Medication Sig Dispensed Refills Start Date End Date valACYclovir (VALTREX) 0 12/29/2017 500 MG tablet albuterol (PROVENTIL HFA) Inhale 1-2 puffs 0 12/1403/21/2020 108 (90 Base) MCG/ACT into the lungs inhaler bismuth subsalicylate Take 30 mLs by mouth 354 mL 0 07/201804/21/2019 (PEPTO BISMOL) 262 every 6 hours as MG/15ML suspension needed for diarrhea (stomach upset) diazepam (VALIUM) 5 MG Take 1 tablet (5 mg) 10 tablet 0 11/201704/21/2019 tablet by mouth every 6 hours as needed for muscle spasms (spasms) naproxen (NAPROSYN) 250 Take 250 mg by mouth 0 04/21/2019 MG tablet 2 times daily (with meals) ondansetron (ZOFRAN ODT) Take 1 tablet (4 mg) 15 tablet 0 0 11/15/2018 04/21/2019 4 MG ODT tab by mouth every 8 hours as needed for nausea or vomiting oxyCODONE-acetaminophen Take 1 tablet by 0 04/21/2019 (PERCOCET) 5-325 MG mouth every 6 hours tablet as needed for severe pain documented as of this encounter ED Notes Silke Anderson RN - 11/15/2018 5:18 PM CDT Pt tolerating PO challenge. Has not vomited since receiving pepto bismol and has had approx 30oz water. Chloe Easton RN - 11/15/2018 4:11 PM CDT Nausea, vomiting, and diarrhea with headache started at midnight last night. Patient states she was seen at clinic given nausea medicine and has since thrown up again. ABC intact alert and no distress. Ja Drew MD - 11/15/2018 4:05 PM CDT History Chief Complaint: Vomiting HPI Lacey Nolasco is a 38 year old female who presents to the emergency department for evaluation of vomiting. The patient reports she started having vomiting and diarrhea around 15 hours prior to evaluation. She notes she is unable to keep any food, liquids, or medications down. She reports a mild head ache. She notes she has last had diarrhea or vomiting 30 minutes prior to evaluation. She notes someabdominal cramping but denies any severe abdominal pain. She denies any bloody stool or vomit, fever, shortness of breath, chest pain, or rash. She notes she has been taking amoxicillin for a dental infection for the last week prior to evaluation. She denies any ill contacts or recent travel. Allergies: Ambien Medications: Albuterol Valtrex Amoxicillin Past Medical History: Endometriosis Acne vulgaris DJD Cervical radiculopathy Past Surgical History: D & C Neck surgery Cervical disc replacement Tonsillectomy Sinus surgery [place] teeth extraction Uterine ablation Breast augmentation Family History: History reviewed. No pertinent family history. Social History: Smoking status: Never Alcohol use: No The patient presents to the emergency department by herself. Marital Status: [2] Review of Systems Constitutional: Negative for fever. Respiratory: Negative for shortness of breath. Cardiovascular: Negative for chest pain. Gastrointestinal: Positive for diarrhea, nausea and vomiting. Negative for blood in stool. Skin: Negative for rash. Neurological: Positive for headaches. All other systems reviewed and are negative. Physical Exam Patient Vitals for the past 24 hrs: BP Temp Temp src Pulse Resp SpO2 Weight 11/15/18 1645 107/78 -- -- -- -- 94 % -- 11/15/18 1613 (!) 129/92 98.2 ??F (36.8 ??C) Oral 92 20 95 % 83.9 kg (185 lb) Physical Exam General: Well appearing, nontoxic. Resting comfortably Head: Scalp, face, and head appear normal Eyes: Pupils are equal, round, and reactive to light Conjunctivae non-injected and sclerae white ENT: The external nose is normal Pinnae are normal The oropharynx is normal, mucous membranes tacky Posterior pharynx clear without swelling, exudates or erythema Uvula is in the midline Neck: Normal range of motion There is no rigidity noted Trachea is in the midline CV: Regular rate and rhythm Normal S1/S2, no S3/S4 No murmur or rub Resp: Lungs are clear and equal bilaterally There is no tachypnea No increased work of breathing No rales, wheezing, or rhonchi GI: Abdomen is soft, no rigidity or guarding No distension, or mass No tenderness or rebound tenderness MS: Normal muscular tone Symmetric motor strength No lower extremity edema Skin: No rash or acute skin lesions noted Neuro: Awake and alert Speech is normal and fluent Moves all extremities spontaneously Psych: Normal affect. Appropriate interactions. Emergency Department Course Laboratory: CBC: WNL (WBC 9.6, HGB 13.6, PLT 242) CMP: Chloride 110 (H), Glucose 104 (H), o/w WNL (Creatinine 0.74) Lipase: 50 (L) Interventions: 1644 Zofran 4 mg IV 1645 Toradol 15 mg IV 1648 LR Bolus 1L IV 1703 Pepto bismol 30 mL PO Emergency Department Course: Past medical records, nursing notes, and vitals reviewed. 1636: I performed an exam of the patient and obtained history, as documented above. IV inserted and blood drawn. I rechecked the patient. Findings and plan explained to the Patient. Patient discharged home with instructions regarding supportive care, medications, and reasons to return. The importance of close follow-up was reviewed. Impression & Plan Medical Decision Making: Lacey Nolasco is a 38 year old female who presents for evaluation of nausea, vomiting and diarrhea with mild abdominal pain in a nonfocal abdominal exam. There are no ill contacts. I considered a broad differential diagnosis for this patient including viral gastroenteritis, bacterial infection of the large intestine (salmonella, shigella, campylobacter, e coli, etc), bowel obstruction, intra-abdominal infection such as colitis, food poisoning, cholecystitis, UTI, pyelonephritis, appendicitis, etc. There are no signs of worrisome intra- abdominal pathologies detected during the visit today. She has a completely benign abdominal exam without rebound, guarding, or marked tenderness to palpation. Lab studies are reassuring. Supportive outpatient management is therefore indicated. Abdominal pain precautions are given for home. No indication for stool studies at this time. No indication for CT at this time. She passed oral challenge here in ED. It was discussed to return to the ED for blood in stool, increasing pain, or fevers more than 102. Feels improved after interventions in ED. Diagnosis: ICD-10-CM 1. Viral gastroenteritis A08.4 Disposition: Discharged to home. Discharge Medications: Started bismuth subsalicylate 262 MG/15ML suspension Commonly known as: PEPTO BISMOL 30 mLs, Oral, EVERY 6 HOURS PRN ondansetron 4 MG ODT tab Commonly known as: ZOFRAN ODT 4 mg, Oral, EVERY 8 HOURS PRN Froylan Singleton 11/15/2018 [facility] Scribe Disclosure: Froylan Chan, am serving as a scribe at 4:36 PM on 11/15/2018 to document services personally performed by Ja Drew MD based on my observations and the provider's statements to me. Ja Drew MD 11/16/18 1226 documented in this encounter Plan of Treatment Not on filedocumented as of this encounter Procedures Procedure Name Priority Date/Time Associated Comments Diagnosis CBC WITH PLATELETS & STAT 11/15/2018 4:21 PM R esults for this DIFFERENTIAL CDT procedure are i n the results section. LIPASE STAT 11/15/2018 4:21 PM Results f or this CDT procedure are i n the results section. COMPREHENSIVE STAT 11/15/2018 4:21 PM Results for this METABOLIC PANEL CDT procedure ar e in the results section. documented in this encounter Results (ABNORMAL) Lipase (11/15/2018 4:21 PM CDT) athologist Signature Lipase 50 (L) 73 - 393 11/15/2018 [facility] U/L 5:03 PM CDT HOSPITAL Specimen Anatomical Collection Method Collection Time Receive d Time (Source) Location / / Volume Laterality Blood specimen 11/15/2018 4:21 PM 019 4:42 (specimen) CDT PM CDT Ja Drew MD LAB - BLOOD ORDERABLES Performing Organization Address City/State/ZIP Code Phon e Number M [facility] [address] [address] [facility] [address] [phone] (ABNORMAL) Comprehensive metabolic panel (11/15/2018 4:21 PM CDT) athologist Signature Sodium 142 133 - 144 11/15/2018 [place] mmol/L 4:55 PM CDT [facility] Potassium 3.8 3.4 - 5.3 11/15/2018 [place] mmol/L 4:55 PM T [facility] Chloride 110 (H) 94 - 109 11/15/2018 [place] mmol/L 4:55 PM T [facility] Carbon Dioxide 25 20 - 32 11/15/2018 [facility] mmol/L 5:01 PM [facility] Anion Gap 7 3 - 14 11/15/2018 [place] mmol/L 5:01 PM [facility] Glucose 104 (H) 70 - 99 11/15/2018 [place] mg/dL 5:01 PM [facility] Urea Nitrogen 14 7 - 30 11/15/2018 [place] mg/dL 5:01 PM [facility] Creatinine 0.74 0.52 - 11/15/2018 [place] 1.04 mg/dL 5:01 PM [facility] GFR Estimate >90 >60 11/15/2018 [place] mL/min/{1. 5:01 PM [facility] 73_m2} HOSPITAL Comment: Non GFR Calc Starting 03/31/2018, serum creatinine ba sed estimated GFR (eGFR) will be calculated using the Chronic Kidney Dise [facility] Epidemiology Collaboration (CKD-EPI) equation. GFR Estimate If >90 >60 mL/min/{1.73_m2} 11/15/2018 5: 01 PM [facility] Comment: GFR Calc Starting 03/31/2018, serum creatinine ba sed estimated GFR (eGFR) will be calculated using the Chronic Kidney Dise [facility] Epidemiology Collaboration (CKD-EPI) equation. Calcium 9.1 8.5 - 10.1 mg/dL 11/15/2018 5:01 PM [facility] Bilirubin Total 0.4 0.2 - 1.3 mg/dL 11/15/2018 5:03 PM [facility] Albumin 4.2 3.4 - 5.0 g/dL 11/15/2018 5:03 PM [facility] Protein Total 7.7 6.8 - 8.8 g/dL 11/15/2018 5:03 PM [facility] Alkaline Phosphatase 52 40 - 150 U/L 11/15/2018 5:03 PM [facility] ALT 20 0 - 50 U/L 11/15/2018 5:03 PM [facility] AST 16 0 - 45 U/L 11/15/2018 5:03 PM [facility] Specimen Anatomical Collection Method Collection Time Receive d Time (Source) Location / / Volume Laterality Blood specimen 11/15/2018 4:21 PM 08/04/2 019 4:42 (specimen) CDT PM CDT Ja Drew MD LAB - BLOOD ORDERABLES Performing Organization Address City/State/ZIP Code Phon e Number [facility] [address] [place], [place] [address] [facility] [address] [place], [place] [address] [facility] [phone] (ABNORMAL) CBC with platelets differential (11/15/2018 4:21 PM CDT) [facility] gist Method Time Signature WBC 9.6 4.0 - 11/15/2018 [facility] 11.0 4:46 PM [facility] 10e9/L [facility] RBC Count 4.63 3.8 - 5.2 11/15/2018 [facility] 10e12/L 4:46 PM [facility] Hemoglobin 13.6 11.7 - 11/15/2018 [facility] 15.7 g/dL 4:46 PM [facility] Hematocrit 42.6 35.0 - 11/15/2018 [facility] 47.0 % 4:46 PM [facility] MCV 92 78 - 100 11/15/2018 [facility] fl 4:46 PM [facility] MCH 29.4 26.5 - 11/15/2018 [facility] 33.0 pg 4:46 PM [facility] MCHC 31.9 31.5 - 11/15/2018 [facility] 36.5 g/dL 4:46 PM [facility] RDW 13.9 10.0 - 11/15/2018 [facility] 15.0 % 4:46 PM [facility] Platelet Count 242 150 - 450 11/15/2018 [facility] 10e9/L 4:46 PM [facility] Diff Method Automated 11/15/2018 [facility] Method 4:46 PM [facility] % Neutrophils 90.8 % 11/15/2018 [facility] 4:46 PM [facility] % Lymphocytes 5.6 % 11/15/2018 [facility] 4:46 PM [facility] % Monocytes 3.0 % 11/15/2018 [facility] 4:46 PM [facility] % Eosinophils 0.0 % 11/15/2018 [facility] 4:46 PM [facility] % Basophils 0.2 % 11/15/2018 [place] 4:46 PM [facility] % Immature 0.4 % 11/15/2018 [place] Granulocytes 4:46 PM [facility] Nucleated RBCs 0 0 /100 11/15/2018 [place] 4:46 PM [facility] Absolute 8.7 (H) 1.6 - 8.3 11/15/2018 [place] Neutrophil 10e9/L 4:46 PM [facility] Absolute 0.5 (L) 0.8 - 5.3 11/15/2018 [place] Lymphocytes 10e9/L 4:46 PM [facility] Absolute 0.3 0.0 - 1.3 11/15/2018 [place] Monocytes 10e9/L 4:46 PM [facility] Absolute 0.0 0.0 - 0.7 11/15/2018 [place] Eosinophils 10e9/L 4:46 PM [facility] Absolute 0.0 0.0 - 0.2 11/15/2018 [place] Basophils 10e9/L 4:46 PM [facility] Abs Immature 0.0 0 - 0.4 11/15/2018 [place] Granulocytes 10e9/L 4:46 PM [facility] Absolute 0.0 11/15/2018 [place] Nucleated RBC 4:46 PM [facility] Specimen Anatomical Collection Method Collection Time Receive d Time (Source) Location / / Volume Laterality Blood specimen 11/15/2018 4:21 PM 019 4:42 (specimen) CDT PM CDT Ja Drew MD LAB - BLOOD ORDERABLES Performing Organization Address City/State/ZIP Code Phon e Number [address] [place] [address] [address] [facility] [address] [phone] documented in this encounter Visit Diagnoses Diagnosis Viral gastroenteritis Intestinal infection due to other organi sm, not elsewhere classified documented in this encounter Administered Medications Inactive Administered Medications - up to 3 most recent administrations Medication Order MAR Action Action Date Dose Rate Site bismuth subsalicylate (PEPTO Given 11/15/2018 5:03 PM CDT 30 mLs BISMOL) suspension 30 mL 30 mL, Oral, ONCE, On 11/15/18 at 1642, For 1 dose, Shake well. ketorolac (TORADOL) injection 15 mg Given 11/15/2018 4:45 PM CDT 15 mg 15 mg, Intravenous, ONCE, On 11/15/18 at 1642, For 1 dose, Can cause pain on injection. If ordered intravenously (IV) : administer through a running maintenance fluid over 1 minute followed by a flush. If patient complains of pain on injection, may dilute 15-30 mg in 5 mL and push over 1 to 2 minutes. lactated ringers BOLUS 1,000 mL New Bag 11/15/2018 4:48 PM CDT 1,000 mLs 1000 mL/hr Intravenous, 1,000 mL, ONCE, at 1,000 mL/hr, Administer over 1 Hours, On 11/15/18 at 1635, For 1 dose ondansetron (ZOFRAN) injection 4 mg Given 11/15/2018 4:44 PM CDT 4 mg 4 mg, Intravenous, EVERY 30 MIN PRN, nausea, vomiting, Administer over 2-5 Minutes, Starting on 11/15/18 at 1634, For 3 doses, May repeat in 30 minutes as needed, up to 3 doses. Irritant. For ordered IV doses 0.1-4 mg, give IV Push undiluted over 2-5 minutes. documented in this encounter Active and Recently Administered Medications Times are shown in CDT. Scheduled Medication Order 11/13/2018 11/14/2018 11/15/2018 bismuth subsalicylate (PEPTO BISMOL) suspension 30 mL (COMPLETED ) 1703 (Given - Provider: Silke Anderson RN) 30 mL, Oral, ONCE, 11/15/18 at 1642, For 1 dose, Shake well. ketorolac (TORADOL) injection 15 mg (COMPLETED) 1645 (Given - Provider: Silke Anderson RN) 15 mg, Intravenous, ONCE, 11/15/18 at 1642, For 1 dose, Can cause pain on injection. If ordered intravenously (IV) : administer through a running maintenance fluid over 1 minute followed by a flush. I f patient complains of pain on injection , may dilute 15-30 mg in 5 mL and push over 1 to 2 minutes. lactated ringers BOLUS 1,000 mL (COMPLETED) 1648 (New Bag - Provider: Silke Anderson, RN)1740 (Stopped - Provider: Silke Anderson, RN) Intravenous, 1,000 mL, ONCE, at 1,000 mL /hr, Administer over 1 Hours, 11/15/18 at 1635, For 1 dose PRN Medication Order 11/13/2018 11/14/2018 11/15/2018 ondansetron (ZOFRAN) injection 4 mg 1644 (Given - Provider: Silke Anderson, RN) 4 mg, Intravenous, EVERY 30 MIN PRN, cinthia sea, vomiting, Administer over 2-5 Minutes, Starting 11/15/18 at 1634, For 3 doses, May repeat in 30 minutes as needed, up to 3 doses. Irritant. For ordered IV doses 0.1-4 mg, give IV Push undiluted over 2-5 minutes. documented in this encounter Care Teams Vacuum Cleaner Repairer Relationship Specialty Start Date End Date Medardo Graf PCP - General Family Practice 11/15/18 [facility] [address] [address] documented as of this encounter
--- OUTSIDE RECORDS SUMMARY | 2022-03-23 17:26 | XMS_ITS | Encounter Summary ---
:1980 Author Organization [facility] Address [address] [place] [address] Care Team Providers Name Role Phone Medardo Graf Primary Care Provider Encounter Details Date Type Department Care Team Description 04/21/2019 Orders Only [facility] Pulmonary Noelle Khan ILD (interstitial Function Testing MD Yumiko lung disease) (H) [address] SPECIAL[address] [address] [place], [place] [phone] (Wo rk) Social History Tobacco Use [...] Procedure Name Priority Date/Time Associated Comments Diagnosis HC DIFFUSING CAPACITY Routine 04/21/2019 3:21 ILD (interstitia l PM [facility] lung disease) (H) HC PLETHYSMOGRAPHY LUNG Routine 04/21/2019 3:21 ILD (interstit ial VOLUMES W/WO AIRWAY PM [facility] lung disease) (H) RESIST HC PULMONARY STRESS TEST Routine 04/21/2019 3:21 ILD (intersti tial PM [facility] lung disease) (H) HC RESPIRATORY FLOW Routine 04/21/2019 3:21 ILD (interstitial VOLUME LOOP PM [facility] lung disease) (H) HC VITAL CAPACITY TOTAL Routine 04/21/2019 3:21 ILD (interstit ial PM [facility] lung disease) (H) PFT GENERAL LAB TESTING Routine 04/21/2019 2:43 ILD (interstit ial Results for this PM [facility] lung disease) (H) procedure are in the results section. 6 MINUTE WALK TEST Routine 04/21/2019 ILD (interstitial Resu lts for this lung disease) (H) procedure are in the results section. documented in this encounter Results General PFT Lab (Please always keep checked) (04/21/2019 2:43 PM [facility]) P athologist Signature FVC-Pred 3.86 L [facility] FVC-Pre 3.95 L [facility] FVC-%Pred-Pre 102 % [facility] FEV1-Pre 3.54 L [facility] FEV1-%Pred-Pre 112 % [facility] [id number] 82 % [facility] [id number] 90 % [facility] FEFMax-Pred 7.19 L/sec [facility] FEFMax-Pre 9.02 L/sec [facility] FEFMax-%Pred-Pr 125 % [facility] e [id number] 3.24 L/sec [facility] [id number] 5.33 L/sec [facility] [id number]-P 164 % [facility] re ExpTime-Pre 6.42 sec [facility] FIFMax-Pre 5.01 L/sec [facility] VC-Pred 3.86 L [facility] VC-Pre 3.67 L [facility] VC-%Pred-Pre 94 % [facility] IC-Pred 2.98 L [facility] IC-Pre 2.73 L [facility] IC-%Pred-Pre 91 % [facility] ERV-Pred 0.88 L [facility] ERV-Pre 0.93 L [facility] ERV-%Pred-Pre 106 % [facility] [id number] 84 % [facility] [id number] 90 % [facility] P[facility] FRCPleth-Pred 2.77 L [facility]FT FRCPleth-Pre 2.61 L [facility] PFT FRCPleth-%Pred- 94 % [facility] Pre RVPleth-Pred 1.67 L [facility] PFT RVPleth-Pre 1.67 L [facility]FT RVPleth-%Pred-P 100 % [facility] P[facility] re TLCPleth-Pred 5.19 L [facility] PFT TLCPleth-Pre 5.34 L [facility] PFT TLCPleth-%Pred- 102 % [facility] PFT Pre DLCOunc-Pred 22.92 ml/min/mmHg [facility] PFT DLCOunc-Pre 24.30 ml/min/mmHg [facility] PFT DLCOunc-%Pred-P 106 % [facility] PFT re VA-Pre 4.79 L [facility]FT VA-%Pred-Pre 91 % [facility] PFT [id number] 81 % [facility] PFT [id number] 97 % [facility] PFT Specimen (Source) Anatomical Collection Method Collection Time Re ceived Time Location / / Volume Laterality 04/21/2019 2:43 PM [facility] Narrative [facility]FT - 04/26/2019 3:57 PM [facility] The FVC, FEV1, and FEV1/FVC ratio are normal. Uncorrected diffusing capacity is normal. Lung volumes are normal. IMPRESSION: 6 minute walk test: ??On room air, the w alk distance was normal; there was no significant desaturation or hypoxia. Normal spirometry. Normal uncorrected diffusing capacity. Normal lung volumes. ____Trinity Motta ?This interpretation has been electro nically signed: ??TRINITY VALDES 04/26/2019 ??03:37:12 PM? Noelle Khan MD PFT ORDERABLES Performing Organization Address City/State/ZIP Code Phon e Number [facility] PFT 6 minute walk test (04/21/2019) P athologist Signature 6 min walk (FT) 1,560 ft 6 Min Walk (M) 475 m Narrative This result has an attachment that is no t available. Noelle Khan MD PFT ORDERABLES documented in this encounter Visit Diagnoses Diagnosis ILD (interstitial lung disease) (H) Postinflammatory pulmonary fibrosis documented in this encounter Care Teams Gravity Flow Irrigator Relationship Specialty Start Date End Date Medardo Graf PCP - General Family Practice 11/15/18 [facility] [address], [place] [address] documented as of this encounter
--- OUTSIDE RECORDS SUMMARY | 2022-03-23 17:26 | XMS_ITS | Encounter Summary ---
:1980 Author Organization [facility] Address [address] [place] [address] Care Team Providers Name Role Phone Medardo Graf Primary Care Provider Encounter Details Date Type Department Care Team Description 11/15/2018 Travel Social History Tobacco Use Types Packs/Day [...] on filedocumented in this encounter Care Teams Pump Press Operator Relationship Specialty Start Date End Date Medardo Graf PCP - General Family Practice 11/15/18 [facility] [address] [place] [address] documented as of this encounter
--- OUTSIDE RECORDS SUMMARY | 2022-03-23 17:26 | XMS_ITS | Encounter Summary ---
:1980 Author Organization [place] Address [address] [place] [address] Care Team Providers Name Role Phone Medardo Graf Primary Care Provider Encounter Details Date Type Department Care Team Description 08/27/2019 Travel Social History Tobacco Use Types Packs/Day [...] on filedocumented in this encounter Care Teams Director Of Litigation Relationship Specialty Start Date End Date Medardo Graf PCP - General Family Practice 11/15/18 [facility] [address] [place] [address] documented as of this encounter
--- OUTSIDE RECORDS SUMMARY | 2022-03-23 17:26 | XMS_ITS | Encounter Summary ---
:1980 Author Organization [place] Address [address] [place] [address] Care Team Providers Name Role Phone Ghanshyam Hassan Primary Care Provider Encounter Details Date Type Department Care Team Description 03/04/2017 Hospital Encounter [facility] Kiran Hathaway Rout ine [facility] Laboratory DPM medical examination [address] [facility] FOOT at a [place], [place] CLINIC facility (Primary Dx) [phone] [place] [address] [place] [address] Social History Tobacco Use Types Packs/Day Years [...] on file documented as of this encounter Medications at Time of Discharge Medication Sig Dispensed Refills Start Date End Date albuterol (PROVENTIL HFA) Inhale 1-2 puffs 0 12/1403/21/2020 108 (90 Base) MCG/ACT into the lungs inhaler AMOXICILLIN PO 0 11/04/2017 documented as of this encounter Plan of Treatment Not on filedocumented as of this encounter Procedures Procedure Name Priority Date/Time Associated Diagnosis Comme nts HEPATIC FUNCTION Routine 03/04/2017 2:22 PM Routine general Re sults for this PANEL DIRECTOR CUSTOM medical examination procedur e are in at a [facility] care the results facility section. documented in this encounter Results Hepatic panel (03/04/2017 2:22 PM DIRECTOR CUSTOM) athologist Signature Bilirubin Direct <0.1 0.0 - 0.2 03/04/2017 [place] mg/dL 2:59 PM [facility] Bilirubin Total 0.3 0.2 - 1.3 03/04/2017 [place] mg/dL 2:59 PM [facility] Albumin 3.9 3.4 - 5.0 03/04/2017 [place] g/dL 2:59 PM [facility] Protein Total 7.3 6.8 - 8.8 03/04/2017 [place] g/dL 2:59 PM [facility] Alkaline 54 40 - 150 03/04/2017 [place] Phosphatase U/L 2:59 PM [facility] ALT 20 0 - 50 U/L 03/04/2017 [place] 2:59 PM [facility] AST 18 0 - 45 U/L 03/04/2017 [place] 2:59 PM [facility] Specimen Anatomical Collection Method Collection Time Receive d Time (Source) Location / / Volume Laterality Blood specimen 03/04/2017 2:22 PM 017 2:35 (specimen) DIRECTOR CUSTOM PM DIRECTOR CUSTOM Kiran Hathaway DPM LAB - BLOOD ORDERABLES Performing Organization Address City/State/ZIP Code Phon e Number M [facility] [address] [place], [place] [address] [facility] [address] [place], [place] [address] [facility] [phone] documented in this encounter Visit Diagnoses Diagnosis Routine general medical examination at a health care facility - Primary documented in this encounter Care Teams Engineering Professionals Relationship Specialty Start Date End Date Ghanshyam Hassan PCP - General 04/08/12 11/14/18 [address] [place] [address] documented as of this encounter
--- OUTSIDE RECORDS SUMMARY | 2022-03-23 17:26 | XMS_ITS | Encounter Summary ---
:1980 Author Organization [place] Address [address] [place] [address]. [place] [address] Care Team Providers Name Role Phone Medardo Graf Primary Care Provider Encounter Details Date Type Department Care Team Description 04/08/2019 Orders Only [facility] VICTOR HUGO Boo ([facility] LEELA Maurer dise ase) (H) (Primary and Health Clinic Dx) [address] [address] Social History Tobacco Use Types Packs/Day Years [...] as of this encounter Plan of Treatment Scheduled Orders Name Type Priority Associated Diagnoses Order S chedule Pulmonary Function Test PFT Routine ILD (interstitial lung 1 Occurrences starting disease) (H) 04/08/2019 unti l 04/07/2020 documented as of this encounter Results General PFT Lab (Please always keep checked) (04/21/2019 2:43 PM HEAD IRRIGATOR) athologist Signature FVC-Pred 3.86 L [facility] PFT FVC-Pre 3.95 L [facility] FVC-%Pred-Pre 102 % [facility] FEV1-Pre 3.54 L [facility] FEV1-%Pred-Pre 112 % [facility] PFT [id number] 82 % [facility] P[facility] [id number] 90 % [facility] PFT FEFMax-Pred 7.19 L/sec [facility] FEFMax-Pre 9.02 L/sec [facility] FEFMax-%Pred-Pr 125 % [facility] PFT e [id number] 3.24 L/sec [facility] PFT [id number] 5.33 L/sec [facility] PFT PCW7395-%Pred-P 164 % [facility] P[facility] re ExpTime-Pre 6.42 sec [facility] PFT FIFMax-Pre 5.01 L/sec [facility] VC-Pred 3.86 L [facility] PFT VC-Pre 3.67 L [facility] PFT VC-%Pred-Pre 94 % [facility] P[facility] IC-Pred 2.98 L [facility] IC-Pre 2.73 L [facility] P[facility] IC-%Pred-Pre 91 % [facility] ERV-Pred 0.88 L [facility] ERV-Pre 0.93 L [facility] ERV-%Pred-Pre 106 % [facility] PFT [id number] 84 % [facility] PFT [id number] 90 % [facility] PFT FRCPleth-Pred 2.77 L [...] [facility] PFT VA-%Pred-Pre 91 % [facility] PFT [id number] 81 % [facility] [id number] 97 % [facility] PFT Specimen (Source) Anatomical Collection Method Collection Time Re ceived Time Location / / Volume Laterality 04/21/2019 2:43 PM HEAD IRRIGATOR Narrative [facility] PFT - 04/26/2019 3:57 PM HEAD IRRIGATOR The FVC, FEV1, and FEV1/FVC ratio are [...] Organization Address City/State/ZIP Code Phon e Number [facility] PFT 6 minute walk test (04/21/2019) P athologist Signature 6 min walk (FT) 1,560 ft 6 Min Walk (M) 475 m Narrative This result has an attachment that is no t available. Noelle Khan MD PFT ORDERABLES documented in this encounter Visit Diagnoses Diagnosis ILD (interstitial lung disease) (H) - Pr imary Postinflammatory pulmonary fibrosis ILD (interstitial lung disease) (H) Postinflammatory pulmonary fibrosis documented in this encounter Care Teams Playground Attendant Relationship Specialty Start Date End Date Medardo Graf PCP - General Family Practice 11/15/18 [facility] [address] [place] [address] documented as of this encounter
--- OUTSIDE RECORDS SUMMARY | 2022-03-23 17:26 | XMS_ITS | Encounter Summary ---
:1980 Author Organization [place] Address [address] [place] [address] Care Team Providers Name Role Phone Ghanshyam Hassan Primary Care Provider Encounter Details Date Type Department Care Team Description 05/11/2017 Hospital Encounter [facility] Kiran Hathaway Derm atophytosis of nail [facility] DPM (Primary Dx) [address] [place] [place] [facility] [address] [address] [place] [address] Social History Tobacco Use Types [...] Associated Diagnosis Comme nts HEPATIC FUNCTION Routine 05/11/2017 10:55 Dermatophytosis of n ail Results for this PANEL AM PANEL RAISER OPERATOR procedure are i n the results section. documented in this encounter Results Hepatic panel (05/11/2017 10:55 AM PANEL RAISER OPERATOR) P athologist Signature Bilirubin Direct <0.1 0.0 - 0.2 05/11/2017 [place] mg/dL 11:23 AM [facility] Bilirubin Total 0.5 0.2 - 1.3 05/11/2017 [place] mg/dL 11:23 AM [facility] Albumin 3.9 3.4 - 5.0 05/11/2017 [place] g/dL 11:23 AM [facility] Protein Total 7.1 6.8 - 8.8 05/11/2017 [place] g/dL 11:23 AM [facility] Alkaline 51 40 - 150 05/11/2017 [place] Phosphatase U/L 11:23 AM [facility] ALT 20 0 - 50 U/L 05/11/2017 [place] 11:23 AM [facility] AST 17 0 - 45 U/L 05/11/2017 [place] 11:23 AM [facility] Specimen Anatomical Collection Method Collection Time Receive d Time (Source) Location / / Volume Laterality Blood specimen 05/11/2017 10:55 8 (specimen) AM PANEL RAISER OPERATOR 10:59 AM PANEL RAISER OPERATOR Kiran HWANGM LAB - BLOOD ORDERABLES Performing Organization Address City/State/ZIP Code Phon e Number M [facility] [address] [place] [address] [facility] [address] [place], [place] [address] [facility] [phone] documented in this encounter Visit Diagnoses Diagnosis Dermatophytosis of nail - Primary documented in this encounter Care Teams Talent Development Director Relationship Specialty Start Date End Date Ghanshyam Hassan PCP - General 04/08/12 11/14/18 [address] [place] [address] documented as of this encounter
--- OUTSIDE RECORDS SUMMARY | 2022-03-23 17:26 | XMS_ITS | Encounter Summary ---
:1980 Author Organization [place] Address [address] [place] [address]. [place] [address] Care Team Providers Name Role Phone Medardo Graf Primary Care Provider Reason for Visit Reason Comments Urgent Care Otalgia Left ear pain that is stabbi ng, does fly alot Encounter Details Date Type Department Care Team Description 12/30/2019 Office Visit [facility] Alie, Jannette OME (otit is media with effusion), left (Primary Dx); Urgent Care Agustina Perez PA-C Yeast vaginitis [address] [place] [address] [phone] Social History Tobacco Use Types Packs/Day Years [...] Sign Reading Time Taken Comments Blood Pressure 118/78 12/30/2019 7:03 PM CDT Pulse 95 12/30/2019 7:03 PM CDT Temperature 37.1 ??C (98.7 ??F) 12/30/2019 7:03 PM CDT Respiratory Rate 16 12/30/2019 7:03 PM CDT Oxygen Saturation 98% 12/30/2019 7:03 PM CDT Inhaled Oxygen Concentration - - Weight 83.5 kg (184 lb) 12/30/2019 7:03 PM CDT Height - - Body Mass Index 29.71 04/21/2019 3:19 PM MACHINE HEEL BUILDER documented in this encounter Patient Instructions Patient InstructionsJannette Strange PA-C - 12/30/2019 7:00 PM CDT Images from the original note were not included. Patient Education Middle Ear Infection (Adult) You have an infection of the middle ear, the space behind the eardrum. This is also called acute otitis media (AOM). Sometimes it is caused by the common cold. This is because congestion can block the internal passage (eustachian tube) that drains fluid from the middle ear. When the middle ear fills with fluid, bacteria can grow there and cause an infection. Oral antibiotics are used to treat this illness, not ear drops. Symptoms usually start to improve within 1 to 2 days of treatment. Home care The following are general care guidelines: ?? Finish all of the antibiotic medicine given, even though you may feel better after the first few days. ?? You may use mocw-jnc-pvwzhkk medicine, such as acetaminophen or ibuprofen, to control pain and fever, unless something else was prescribed. If you have chronic liver or kidney disease or have ever had a stomach ulcer or gastrointestinal bleeding, talk with your healthcare provider before using these medicines. Do not give aspirin to anyone under 18 years of age who has a fever. It may cause severeillness or . Follow-up care Follow up with your healthcare provider, or as advised, in 2 weeks if all symptoms have not gotten better, or if hearing doesn't go back to normal within 1 month. When to seek medical advice Call your healthcare provider right away if any of these occur: ?? Ear pain gets worse or does not improve after 3 days of treatment ?? Unusual drowsiness or confusion ?? Neck pain, stiff neck, or headache ?? Fluid or blood draining from the ear canal ?? Fever of 100.4??F (38??C) or as advised? Seizure Date Last Reviewed: 09/13/2015 ?? [phone] [employer]. [address] [place] [address], [place] [address]. All rights reserved. This information is not intended as a substitute for professional medical care. Always follow your healthcare professional's instructions. Patient Education Yeast Infection (Dianna Vaginal Infection) You have a??Dianna??vaginal infection. This is also known as a yeast infection. It is most often caused by a type of yeast (fungus) called??Dianna.??Dianna??are normally found in the vagina. But if they increase in number, this can lead to infection and cause symptoms. Symptoms of a yeast infection can include: ?? Clumpy or thin, white discharge, which may look like cottage cheese ?? Itching or burning ?? Burning with urination Certain factors can make a yeast infection more likely. These can include: ?? Taking certain medicines, such as antibiotics or control pills ? Diabetes ?? Weak immune system A yeast infection is most often treated with antifungal medicine. This may be given as a vaginal cream or pills you take by mouth. Treatment may last for about 1 to 7 days. Women with severe or recurrent infections may need longer courses of treatment. Home care ?? If you???re prescribed medicine, be sure to use it as directed. Finish??all??of the medicine, even if your symptoms go away.??Note: Don???t try to treat yourself using genf-wdh-paeqftm products without talking to your provider first. He or she will let you know if this is a good option for you. ?? Ask your provider what steps you can take to help reduce your risk of having a yeast infection inthe future. Follow-up care Follow up with your healthcare provider, or as directed. When to seek medical advice Call your healthcare provider right away if: ?? You have a fever of 100.4??F (38??C)??or higher, or as directed by your provider. ?? Your symptoms worsen, or they don???t go away within a few days of starting treatment. ?? You have new pain in the lower belly or pelvic region. ?? You have side effects that bother you or a reaction to the cream or pills you???re prescribed. ?? You or any partners you have sex with have new symptoms, such??as a rash, joint pain, or sores. Date Last Reviewed: 01/12/2017 ?? [id number] [employer] [address] [place] [address], [place] [address]. All rights reserved. This information is not intended as a substitute for professional medical care. Always follow your healthcare professional's instructions. documented in this encounter Progress Notes Jannette Strange PA-C - 12/30/2019 7:00 PM CDT Images from the original note were not included. SUBJECTIVE: Lacey Nolasco is a 39 year old female presenting with a chief complaint of Chief Complaint Patient presents with ??? Urgent Care ??? Otalgia Left ear pain that is stabbing, does fly alot She is an established patient of [facility]. Otalgia Onset of symptoms was 2 week(s) ago. Worsening in the past couple days. Course of illness is worsening. Severity moderately severe Current and Associated symptoms: left ear pain, possibly drainage. Treatment measures tried include Tylenol/Ibuprofen. Predisposing factors include None. Denies fever/chills/cough/sore throat/congestion. No v/d Hx of PE tube as a child. Review of Systems Constitutional: Negative for chills and fever. HENT: Positive for ear pain. Negative for congestion and sore throat. Respiratory: Negative for cough. Gastrointestinal: Negative for diarrhea, nausea and vomiting. Past Medical History: Diagnosis Date ??? Complication of anesthesia severe nausea ??? Hx of previous reproductive problem used clomid with ??? Hypothyroidism ??? PONV (postoperative nausea and vomiting) Family History Problem Relation Age of Onset ??? Heart Disease Father ??? Lung Cancer Cousin ??? Leukemia Maternal Aunt Current Outpatient Medications Medication Sig Dispense Refill ??? amoxicillin-clavulanate (AUGMENTIN) 875-125 MG tablet Take 1 tablet by mouth 2 times daily for 10 days 20 tablet 0 ??? fluconazole (DIFLUCAN) 150 MG tablet Take 1 tablet (150 mg) by mouth once for 1 dose 1 tablet 0 ??? levothyroxine (SYNTHROID/LEVOTHROID) 50 MCG tablet ??? albuterol (PROVENTIL HFA) 108 (90 Base) MCG/ACT inhaler Inhale 1-2 puffs into the lungs ??? valACYclovir (VALTREX) 500 MG tablet Social History Tobacco Use ??? Smoking status: Never Smoker ??? Smokeless tobacco: Never Used Substance Use Topics ??? Alcohol use: Yes Frequency: 2-4 times a month Drinks per session: 1 or 2 Comment: occas OBJECTIVE BP 118/78 Pulse 95 Temp 98.7 ??F (37.1 ??C) (Oral) Resp 16 Wt 83.5 kg (184 lb) SpO2 98% BMI 29.71 kg/m?? Physical Exam Constitutional: General: She is not in acute distress. Appearance: She is well-developed. HENT: Head: Normocephalic and atraumatic. Right Ear: Ear canal and external ear normal. A middle ear effusion is present. Left Ear: Ear canal and external ear normal. A middle ear effusion is present. Tympanic membrane iserythematous (mildly). Mouth/Throat: Mouth: Mucous membranes are moist. Pharynx: Oropharynx is clear. Eyes: Conjunctiva/sclera: Conjunctivae normal. Neck: Musculoskeletal: Normal range of motion. Cardiovascular: Rate and Rhythm: Regular rhythm. Heart sounds: Normal heart sounds. Pulmonary: Effort: Pulmonary effort is normal. No respiratory distress. Breath sounds: Normal breath sounds. No wheezing, rhonchi or rales. Skin: General: Skin is warm and dry. Neurological: Mental Status: She is alert. Labs: No results found for this or any previous visit (from the past 24 hour(s)). ASSESSMENT: ICD-10-CM 1. OME (otitis media with effusion), left H65.92 amoxicillin-clavulanate (AUGMENTIN) 875-125 MG tablet 2. Yeast vaginitis B37.3 fluconazole (DIFLUCAN) 150 MG tablet PLAN: Left otitis media with effusion: Augmentin is prescribed today. Tylenol/Motrin as needed for pain. Diflucan also prescribed as patient gets yeast infection while on antibiotic. Follow-up if any worsening symptoms. Patient agrees with the plan. Followup: If not improving or if condition worsens, follow up with your Primary Care Provider Patient Instructions Patient Education Middle Ear Infection (Adult) You have an infection of the middle ear, the space behind the eardrum. This is also called acute otitis media (AOM). Sometimes it is caused by the common cold. This is because congestion can block the internal passage (eustachian tube) that drains fluid from the middle ear. When the middle ear fills with fluid, bacteria can grow there and cause an infection. Oral antibiotics are used to treat this illness, not ear drops. Symptoms usually start to improve within 1 to 2 days of treatment. Home care The following are general care guidelines: ?? Finish all of the antibiotic medicine given, even though you may feel better after the first few days. ?? You may use olow-jdb-sxzvwaf medicine, such as acetaminophen or ibuprofen, to control pain and fever, unless something else was prescribed. If you have chronic liver or kidney disease or have ever had a stomach ulcer or gastrointestinal bleeding, talk with your healthcare provider before using these medicines. Do not give aspirin to anyone under 18 years of age who has a fever. It may cause severeillness or . Follow-up care Follow up with your healthcare provider, or as advised, in 2 weeks if all symptoms have not gotten better, or if hearing doesn't go back to normal within 1 month. When to seek medical advice Call your healthcare provider right away if any of these occur: ?? Ear pain gets worse or does not improve after 3 days of treatment ?? Unusual drowsiness or confusion ?? Neck pain, stiff neck, or headache ?? Fluid or blood draining from the ear canal ?? Fever of 100.4??F (38??C) or as advised? Seizure Date Last Reviewed: 09/13/2015 ?? [phone] [employer]. [address] [place] [address], [place] [address]. All rights reserved. This information is not intended as a substitute for professional medical care. Always follow your healthcare professional's instructions. Patient Education Yeast Infection (Dianna Vaginal Infection) You have a??Dianna??vaginal infection. This is also known as a yeast infection. It is most often caused by a type of yeast (fungus) called??Dianna.??Dianna??are normally found in the vagina. But if they increase in number, this can lead to infection and cause symptoms. Symptoms of a yeast infection can include: ?? Clumpy or thin, white discharge, which may look like cottage cheese ?? Itching or burning ?? Burning with urination Certain factors can make a yeast infection more likely. These can include: ?? Taking certain medicines, such as antibiotics or control pills ? Diabetes ?? Weak immune system A yeast infection is most often treated with antifungal medicine. This may be given as a vaginal cream or pills you take by mouth. Treatment may last for about 1 to 7 days. Women with severe or recurrent infections may need longer courses of treatment. Home care ?? If you???re prescribed medicine, be sure to use it as directed. Finish??all??of the medicine, even if your symptoms go away.??Note: Don???t try to treat yourself using bkzq-hpr-rkosvmq products without talking to your provider first. He or she will let you know if this is a good option for you. ?? Ask your provider what steps you can take to help reduce your risk of having a yeast infection inthe future. Follow-up care Follow up with your healthcare provider, or as directed. When to seek medical advice Call your healthcare provider right away if: ?? You have a fever of 100.4??F (38??C)??or higher, or as directed by your provider. ?? Your symptoms worsen, or they don???t go away within a few days of starting treatment. ?? You have new pain in the lower belly or pelvic region. ?? You have side effects that bother you or a reaction to the cream or pills you???re prescribed. ?? You or any partners you have sex with have new symptoms, such??as a rash, joint pain, or sores. Date Last Reviewed: 01/12/2017 ?? [id number] [employer]. [address] [place] [address], [place] [address]. All rights reserved. This information is not intended as a substitute for professional medical care. Always follow your healthcare professional's instructions. documented in this encounter Plan of Treatment Not on filedocumented as of this encounter Visit Diagnoses Diagnosis OME (otitis media with effusion), left - Primary Yeast vaginitis Candidiasis of vulva and vagina documented in this encounter Care Teams Lifter Relationship Specialty Start Date End Date Medardo Graf PCP - General Family Practice 11/15/[address] [facility] [address], [place] [address] documented as of this encounter
--- OUTSIDE RECORDS SUMMARY | 2022-03-23 17:26 | XMS_ITS | Encounter Summary ---
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 [facility] Method Time Signature WATSON interpretation Negative NEG^Negat 04/22/2019 [facility] 11:16 AM RIP/MOULD OPERATOR [facility] Comment: ? Reference range: <1:40 ??NEGATIVE 1:40 - 1:80 ??BORDERLINE POSITIVE >1:80 POSITIVE Cytoplasmic pattern observed. The WATSON te st is intended to detect antibodies directed against the cell nucleus. Howev er, antibodies against other cellular structures may also be detected. These a re often non-specific, although some clinically significant antibodies direct ed against cytoplasmic components may be observed. Follow-up testing may be co nsidered if clinically indicated. Specimen Anatomical Collection Method Collection Time Receive d Time (Source) Location / / Volume Laterality Blood specimen 04/21/2019 5:20 PM 020 5:22 (specimen) RIP/MOULD OPERATOR PM RIP/MOULD OPERATOR Noelle Khan MD LAB - BLOOD ORDERABLES Performing Organization Address City/State/ZIP Code Phon e Number [facility] [address] [place] [address] [facility] documented in this encounter Visit Diagnoses Diagnosis ILD (interstitial lung disease) (H) - Pr imary Postinflammatory pulmonary fibrosis Pulmonary nodules Other nonspecific abnormal finding of elicia ng field ILD (interstitial lung disease) (H) Postinflammatory pulmonary fibrosis Pulmonary nodules Other nonspecific abnormal finding of elicia ng field documented in this encounter Care Teams Corporate Specialist Relationship Specialty Start Date End Date Medardo Graf PCP - General Family Practice 11/15/18 [facility] [address] [place] [address] documented as of this encounter
--- OUTSIDE RECORDS SUMMARY | 2022-03-23 17:26 | XMS_ITS | Encounter Summary ---
:1980 Author Organization [place] Address [address] [place] [address]. [place] [address] Care Team Providers Name Role Phone Ghanshyam Hassan Primary Care Provider Reason for Visit Reason Comments Chest Pain Encounter Details Date Type Department Care Team Description 11/04/2017 Emergency [facility] Ramiro Eisenberg, Atypical chest pain [facility] Emergency Dep t [address] [facility] [employer] [facility] [place], [place] [address] [facility] [phone] [place] [address] [place], [place] [id number] (Wo rk) Social History Tobacco Use Types [...] Sign Reading Time Taken Comments Blood Pressure 124/76 11/04/2017 10:20 PM CDT Pulse 76 11/04/2017 10:20 PM CDT Temperature 37 ??C (98.6 ??F) 11/04/2017 7:27 PM CDT Respiratory Rate 14 11/04/2017 10:20 PM CDT Oxygen Saturation 100% 11/04/2017 9:13 PM CDT Inhaled Oxygen Concentration - - Weight 79.4 kg (175 lb) 11/04/2017 7:27 PM CDT Height 167.6 cm (5' 6) 11/04/2017 7:27 PM CDT Body Mass Index 28.25 11/04/2017 7:27 PM CDT documented in this encounter Discharge Instructions Discharge InstructionsRamiro Eisenberg MD - 11/04/2017 10:14 PM CDT Please make an appointment to follow up with your primary care provider in 2-3 days if not improving. Discharge Instructions Chest Pain You have been [...] today. Return to the Emergency Department if: ??? Your chest pain changes, gets worse, starts to happen more often, or comes with less activity. ??? You are newly short of breath. ??? You get very weak or tired. ??? You pass out or faint. ??? You have any new symptoms, like fever, cough, numb legs, or you cough up blood. ??? You have anything else that worries you. Until you follow-up with your regular provider, please do the following: ??? Take one aspirin daily unless you have an allergy or are told not to by your provider. ??? If a stress test appointment has been made, go to the appointment. ??? If you have questions, contact your regular provider. ??? Follow-up with your regular provider/clinic as directed; [...] (90 Base) MCG/ACT into the lungs inhaler documented as of this encounter ED Notes Liv Negron RN - 11/04/2017 10:21 PM CDT Discharge instructions reviewed wit pt who states she has no questions at this time. Liv Negron RN - 11/04/2017 9:56 PM CDT Pt tearful, on cell phone when RN rounded. States she is embarrassed and frustrated as nothing appears to be wrong but the pain is still there. Rates 2/10 epigastric pain radiating bilaterally. Liv Negron RN - 11/04/2017 9:16 PM CDT Pt reports no relief from GI cocktail Floyd Ta RN - 11/04/2017 7:26 PM CDT Lt sided chest pain for last 7hrs, worse with inspiration. First felt it sitting at desk at work. Took tums which did not help. Associated nausea, no vomiting. Ramiro Eisenberg MD - 11/04/2017 7:23 PM CDT History Chief Complaint: Chest Pain HPI Lacey Nolasco is a 37 year old female who presents to the emergency department today for evaluation of chest pain that happened this morning at rest no associated trauma no preceding and infectious review of systems. No personal history of coronary disease or venous thromboembolic disease. No significant change with positions or eating. Retrosternal radiating to both sides and to the back not maximal at onset not ripping or tearing. No associated nausea or vomiting. No associated visual change neck pain extremity numbness weakness or tingling per Allergies: Ambien [Zolpidem Tartrate] Medications: The patient is currently on no regular medications. Past Medical History: History reviewed. No pertinent past medical history. Past Surgical History: D&C Neck surgery Cervical disc replacement Tonsillectomy Family History: History reviewed. No pertinent family history. Social History: Smoking Status: never Smokeless Tobacco: never Alcohol Use: no Marital Status: [2] Review of Systems ROS: 10 point ROS neg other than the symptoms noted above in the HPI. Physical Exam Patient Vitals for the past 24 hrs: BP Temp Pulse Heart Rate Resp SpO2 Height Weight 11/04/17 2220 124/76 - 76 76 14 - - - 11/04/17 2113 - - 74 - - 100 % - - 11/04/17 1927 (!) 119/96 98.6 ??F (37 ??C) - 76 16 100 % 1.676 m (5' 6) 79.4 kg (175 lb) Physical Exam HENT: Right Ear: External ear normal. Left Ear: External ear normal. Nose: Nose normal. Eyes: Conjunctivae and lids are normal. Neck: Neck supple. No tracheal deviation present. Cardiovascular: Regular rhythm and intact distal pulses. Pulmonary/Chest: Breath sounds normal. No respiratory distress. She exhibits tenderness ( reproducible tenderness over the sternal). Abdominal: Soft. There is no tenderness. There is no rebound and no guarding. Musculoskeletal: No peripheral edema Neurological: MAEE, no gross focal motor or sensory deficit Skin: Skin is warm and dry. She is not diaphoretic. Psychiatric: She has a normal mood and affect. Nursing note and vitals reviewed. Emergency Department Course ECG: ECG taken at 193, ECG read at 1940 Normal sinus rhythm Cannot rule out anterior infarct, age undetermined Abnormal ECG Rate 70 bpm. TN interval 146. QRS duration 94. QT/QTc 392/423. P-R-T axes 63,16,18. Imaging: Radiology findings were communicated with the patient who voiced understanding of the findings. XR Chest 2 Views Normal chest. Previous instrumented cervical spinal fusion. LULA FLEMING MD Laboratory: Laboratory findings were communicated with the patient who voiced understanding of the findings. CBC: WBC 7.5, HGB 13.2, PLT 225 CMP: Bilirubin <0.1 (L), Glucose 107 (H) o/w WNL (Creatinine 0.77) D Dimer quantitative: <0.3 Troponin (Collected 2018): <0.015 Lipase: 112 Interventions: 2031 GI Cocktail (Maalox/Mylanta and viscous Lidocaine), 30 mL suspension, PO 2110 Toradol, 15 mg, IV injection Emergency Department Course: Nursing notes and vitals reviewed. I entered the room. I performed an exam of the patient as documented above. EKG obtained in the ED, see results above. IV was inserted and blood was drawn for laboratory testing, results above. The patient received the above intervention(s). 2049 the patient was rechecked and updated regarding the results of the laboratory studies. The patient was sent for X-ray while in the emergency department, results above. 2214 the patient was rechecked and updated. I discussed the treatment plan with the patient. They expressed understanding of this plan and consented to discharge. They will be discharged home with instructions for care and follow up. In addition, the patient will return to the emergency department if their symptoms worsen, if new symptoms ariseor if there is any concern. All questions were answered. Impression & Plan Medical Decision Making: Lacey Nolasco is a 37 year old female who presents to the emergency department today for evaluation of chest pain. The patient is a young, healthy, female with no classic risk factors. Will do a work up to rule out acute IA, risk stratify for pulmonary embolism, certainly this could be esophageal spasm, GERD, peptic ulcer disease, costochondritis. EKG unremarkable for ischemic or arrhythmic changes. Troponin negative. Given her age, lack of comorbidities, duration of symptoms, I think this rules out occlusive coronary process. Will do a chest x-ray given d-dimer is negative. If this is negative,I think she will be discharged home with follow up in primary care. Work appear showing negative troponin and negative d-dimer unremarkable chest x- ray. Etiology unclear but no serious cardiopulmonary abnormality is suspected here me will be costochondritis/muscular skeletal chest pain and will discharge her home follow-up with her PCP. Return with new or worsening symptoms. Diagnosis: ICD-10-CM 1. Atypical chest pain R07.89 Disposition: The patient was discharged to home. Scribe Disclosure: I, Jose Donnelly, am serving as a scribe on 11/04/2017 to document services personally performed by Ramiro Eisenberg MD, based on my observations and the provider's statements to me. [facility] Ramiro Eisenberg MD 11/05/17 0008 documented in this encounter Plan of Treatment Not on filedocumented as of this encounter Procedures Procedure Name Priority Date/Time Associated Comments Diagnosis XR CHEST 2 VIEWS STAT 11/04/2017 9:19 PM Resul ts for this CDT procedure are i n the results section. CBC WITH PLATELETS & STAT 11/04/2017 8:19 PM R esults for this DIFFERENTIAL CDT procedure are i n the results section. TROPONIN I STAT 11/04/2017 8:19 PM Results f or this CDT procedure are i n the results section. LIPASE STAT 11/04/2017 8:19 PM Results f or this CDT procedure are i n the results section. D DIMER QUANTITATIVE STAT 11/04/2017 8:19 PM R esults for this CDT procedure are i n the results section. COMPREHENSIVE STAT 11/04/2017 8:19 PM Results for this METABOLIC PANEL CDT procedure ar e in the results section. EKG 12-LEAD, TRACING STAT 11/04/2017 7:33 PM R esults for this ONLY CDT procedure are i n the results section. documented in this encounter Results XR Chest 2 Views (11/04/2017 9:19 PM CDT) Anatomical Region Laterality Modality Chest Digital Radiography Specimen (Source) Anatomical Location Collection Method / Collectio n Time Received Time / Laterality Volume Impressions 11/04/2017 9:24 PM CDT IMPRESSION: Normal chest. Previous instrumented cervical spinal fusion. LULA FLEMING MD Narrative 11/04/2017 9:24 PM CDT CHEST TWO VIEWS ??11/04/2017 9:19 PM HISTORY: Chest pain. COMPARISON: None. Procedure Note Lula Fleming MD - 11/04/2017Formatt ing of this note might be different from the original. CHEST TWO VIEWS 11/04/2017 9:19 PM HISTORY: Chest pain. COMPARISON: None. IMPRESSION: Normal chest. Previous instr umented cervical spinal fusion. LUAL FLEMING MD Ramiro Eisenberg MD IMG DIAGNOSTIC IMAGING ORDER [place] Lipase (11/04/2017 8:19 PM CDT) athologist Signature Lipase 112 73 - 393 11/04/2017 [facility] U/L 8:51 PM CDT HOSPITAL Specimen Anatomical Collection Method Collection Time Receive d Time (Source) Location / / Volume Laterality Blood specimen 11/04/2017 8:19 PM 018 8:20 (specimen) CDT PM CDT Ramiro Eisenberg MD LAB - BLOOD ORDERABLES Performing Organization Address City/State/ZIP Code Phon e Number [place] [address] [address] [place] [address] [facility] [address] [phone] (ABNORMAL) Comprehensive metabolic panel (11/04/2017 8:19 PM CDT) athologist Signature Sodium 141 133 - 144 11/04/2017 [place] mmol/L 8:51 PM [facility] Potassium 3.7 3.4 - 5.3 11/04/2017 [place] mmol/L 8:51 PM [facility] Chloride 108 94 - 109 11/04/2017 [place] mmol/L 8:51 PM [facility] Carbon Dioxide 29 20 - 32 11/04/2017 [place] mmol/L 8:51 PM [facility] Anion Gap 4 3 - 14 11/04/2017 [place] mmol/L 8:51 PM [facility] Glucose 107 (H) 70 - 99 11/04/2017 [facility] mg/dL 8:51 PM [facility] Urea Nitrogen 11 7 - 30 11/04/2017 [facility] mg/dL 8:51 PM [facility] Creatinine 0.77 0.52 - 11/04/2017 [place] 1.04 mg/dL 8:51 PM [facility] GFR Estimate 83 >60 11/04/2017 [place] mL/min/1.7 8:[address] Comment: Non GFR Calc GFR Estimate If >90 >60 mL/min/1.7m2 11/04/2017 8:51 P M [facility] Comment: GFR Calc Calcium 9.0 8.5 - 10.1 11/04/2017 8:51 PM [facility] mg/dL [facility] Bilirubin Total <0.1 (L) 0.2 - 1.3 mg/dL 11/04/2017 8:51 PM [facility] Albumin 3.8 3.4 - 5.0 g/dL 11/04/2017 8:51 PM [facility] Protein Total 6.9 6.8 - 8.8 g/dL 11/04/2017 8:51 PM [facility] Alkaline Phosphatase 45 40 - 150 U/L 11/04/2017 8:51 PM [facility] ALT 16 0 - 50 U/L 11/04/2017 8:51 PM [facility] AST 12 0 - 45 U/L 11/04/2017 8:51 PM [facility] Specimen Anatomical Collection Method Collection Time Receive d Time (Source) Location / / Volume Laterality Blood specimen 11/04/2017 8:19 PM 018 8:20 (specimen) CDT [facility] Ramiro Eisenberg MD LAB - BLOOD ORDERABLES Performing Organization Address City/State/ZIP Code Phon e Number M [facility] [address] [place], [place] [address] [facility] [address] [place], [place] [address] [place] [address] Troponin I (11/04/2017 8:19 PM CDT) athologist Signature Troponin I ES <0.015 0.000 - 11/04/2017 [place] 0.045 ug/L 8:51 PM CDT [facility] Comment: The 99th percentile for upper reference range is 0.045 ug/L. ??Troponin values in the range of 0.045 - 0.120 ug/L may b e associated with risks of adverse clinical events. Specimen Anatomical Collection Method Collection Time Receive d Time (Source) Location / / Volume Laterality Blood specimen 11/04/2017 8:19 PM 018 8:20 (specimen) CDT PM CDT Ramiro Eisenberg MD LAB - BLOOD ORDERABLES Performing Organization Address [facility] [address] [address] [phone] [phone] D dimer quantitative (11/04/2017 8:19 PM CDT) athologist Signature D Dimer <0.3 0.0 - 0.50 11/04/2017 [facility] ug/ml FEU 8:41 PM CDT [facility] Comment: This D-dimer assay is intended for use i n conjunction with a clinical pretest probability assessment model to exclude pulmonary embolism (PE) and deep venous thrombosis (DVT) in outpatients s uspected of PE or DVT. The cut-off value is 0.5 ug/mL FEU. Specimen Anatomical Collection Method Collection Time Receive d Time (Source) Location / / Volume Laterality Blood specimen 11/04/2017 8:19 PM 018 8:20 (specimen) CDT PM CDT Ramiro Eisenberg MD LAB - BLOOD ORDERABLES Performing Organization Address [facility] e Number [facility] [address] [place], [place] [address] [phone] CBC with platelets differential (11/04/2017 8:19 PM [facility]) [facility] gist Method Time Signature WBC 7.5 4.0 - 11/04/2017 [facility] 11.0 8:30 PM [facility] 10e9/L [facility] RBC Count 4.38 3.8 - 5.2 11/04/2017 [facility] 10e12/L 8:30 PM [facility] Hemoglobin 13.2 11.7 - 11/04/2017 [facility] 15.7 g/dL 8:30 PM [facility] Hematocrit 40.4 35.0 - 11/04/2017 [facility] 47.0 % 8:30 PM [facility] MCV 92 78 - 100 11/04/2017 [facility] fl 8:30 PM [facility] MCH 30.1 26.5 - 11/04/2017 [facility] 33.0 pg 8:30 PM [facility] MCHC 32.7 31.5 - 11/04/2017 [facility] 36.5 g/dL 8:30 PM [facility] RDW 13.8 10.0 - 11/04/2017 [facility] 15.0 % 8:30 PM [facility] Platelet Count 225 150 - 450 11/04/2017 [facility] 10e9/L 8:30 PM [facility] Diff Method Automated 11/04/2017 [facility] Method 8:30 PM [facility] % Neutrophils 68.3 % 11/04/2017 [facility] 8:30 PM [facility] % Lymphocytes 23.2 % 11/04/2017 [facility] 8:30 PM [facility] % Monocytes 6.0 % 11/04/2017 [facility] 8:30 PM [facility] % Eosinophils 1.7 % 11/04/2017 [facility] 8:30 PM [facility] % Basophils 0.4 % 11/04/2017 [facility] 8:30 PM [facility] % Immature 0.4 % 11/04/2017 [facility] Granulocytes 8:30 PM [facility] Nucleated RBCs 0 0 /100 11/04/2017 [facility] 8:30 PM [facility] Absolute 5.1 1.6 - 8.3 11/04/2017 [facility] Neutrophil 10e9/L 8:30 PM [facility] Absolute 1.8 0.8 - 5.3 11/04/2017 [place] Lymphocytes 10e9/L 8:30 PM [facility] Absolute 0.5 0.0 - 1.3 11/04/2017 [place] Monocytes 10e9/L 8:30 PM [facility] Absolute 0.1 0.0 - 0.7 11/04/2017 [place] Eosinophils 10e9/L 8:30 PM [facility] Absolute 0.0 0.0 - 0.2 11/04/2017 [place] Basophils 10e9/L 8:30 PM [facility] Abs Immature 0.0 0 - 0.4 11/04/2017 [place] Granulocytes 10e9/L 8:30 PM [facility] Absolute 0.0 11/04/2017 [place] Nucleated RBC 8:30 PM [facility] Specimen Anatomical Collection Method Collection Time Receive d Time (Source) Location / / Volume Laterality Blood specimen 11/04/2017 8:19 PM 018 8:20 (specimen) CDT PM CDT Ramiro Eisenberg MD LAB - BLOOD ORDERABLES Performing Organization Address City/State/ZIP Code Phon e Number [place] [address] [address] [place] [address] [facility] [address] [phone] EKG 12 lead (11/04/2017 7:33 PM CDT) [facility] gist Method Time Signature Interpretation ECG Click View RADIOLOGY Image link RESULTS to view waveform and result Specimen (Source) Anatomical Collection Method Collection Time Re ceived Time Location / / Volume Laterality 11/04/2017 7:33 PM CDT Noble Pennington MD ECG ORDERABLES Performing Organization Address City/State/ZIP [facility] Phon e Number RADIOLOGY RESULTS documented in this encounter Visit Diagnoses Diagnosis Atypical chest pain Other chest pain documented in this encounter Administered Medications Inactive Administered Medications - up to 3 most recent administrations Medication Order MAR Action Action Date Dose Rate Site ketorolac (TORADOL) injection 15 mg Given 11/04/2017 9:11 PM CDT 15 mg 15 mg, Intravenous, ONCE, On Fri11/04/17 at 2058, For 1 dose, Can cause pain on injection. Administer through a running maintenance fluid over 1 minute followed by a flush. If patient complains of pain on injection, may dilute 15-30 mg in 5 mL and push over 1 to 2 minutes. lidocaine (viscous) (XYLOCAINE) 2 % 15 mL, Given 11/04/2017 8:32 PM CDT 30 mLs alum & mag hydroxide-simethicone (MYLANTA ES/MAALOX ES) 15 mL GI Cocktail 30 mL, Oral, ONCE, On Fri11/04/17 at 1954, For 1 dose documented in this encounter Active and Recently Administered Medications Times are shown in CDT. Scheduled Medication Order 11/02/2017 11/03/2017 11/04/2017 ketorolac (TORADOL) injection 15 mg (COMPLETED) 2110 (Given - Provider: Kenzie Groves RN) 15 mg, Intravenous, ONCE, On 11/04/17 at 2058, For 1 dose, Can cause pain on injection. Administer through a running maintenance fluid over 1 minute followed by a flush. If patient complains of pain on injection, may dilute 15-30 mg in 5 mL and push over 1 to 2 m inutes. lidocaine (viscous) (XYLOCAINE) 2 % 15 m L, alum & mag hydroxide-simethicone (MYLANTA ES/MAALOX ES) 15 mL GI Cocktail (COMPLETED) 2031 (Given - Provider: Liv Negron RN) 30 mL, Oral, ONCE, e 11/04/17 at 1954, For 1 dose documented in this encounter Care Teams Gis Engineer Relationship Specialty Start Date End Date Ghanshyam Hassan PCP - General 04/08/12 11/14/18 [id number] [place] [id number] documented as of this encounter
--- OUTSIDE RECORDS SUMMARY | 2022-03-23 17:26 | XMS_ITS | Encounter Summary ---
:1980 Author Organization [facility] Address [address] [place] [address]. [place] [address] Care Team Providers Name Role Phone Ghanshyam Hassan Primary Care Provider Reason for Visit Reason Comments Fever Dehydration Encounter Details Date Type Department Care Team Description 07/12/2016 - Emergency [facility] Onesimo Mitchell I nfluenztiffanie; 07/13/2016 [facility] Emergency Dep t Dehydration [address] [facility] [place], [place] [address] [facility] [id number] [place], [place] [id number] (Wo rk) Social History Tobacco Use Types [...] Sign Reading Time Taken Comments Blood Pressure 110/75 07/13/2016 1:15 AM CDT Pulse 116 07/12/2016 10:16 PM CDT Temperature 38 ??C (100.4 ??F) 07/12/2016 10:16 PM CDT Respiratory Rate 18 07/12/2016 10:16 PM CDT Oxygen Saturation 98% 07/13/2016 1:15 AM CDT Inhaled Oxygen Concentration - - Weight 75.8 kg (167 lb) 07/12/2016 10:16 PM CDT Height - - Body Mass Index 26.95 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 You can take 800mg of ibuprofen every 8 hours for fever/body aches. You may also take 1000mg of tylenol, every 6 hours for the same. It's ok to take these at the same time. Return to emergency department for any uncontrollable fevers, neck stiffness, worsening headaches, confusion, or for any other concerns. Influenza Influenza (???the flu?? ) is an infection that affects your respiratory tract (the mouth, nose, and lungs, and the passages between them). Unlike a cold, the flu can make you very ill. And it can lead to pneumonia, a serious lung infection. For some people, especially older adults, young children, andpeople with certain chronic conditions, the flu can have serious complications and even be fatal. What Are the Risk Factors for the Flu? Viruses that cause influenza spread through the air in droplets when someone who has the flu coughs,sneezes, laughs, or talks. Anyone can get the flu. But you???re more likely to become infected if you: ?? Have a weakened immune system. ?? Work in a health care setting where you may be exposed to flu germs. ?? Live or work with someone who has the flu. ?? Haven???t received an annual flu shot. How Does the Flu Spread? The flu is caused by viruses. The viruses spread through the air in droplets when someone who has the flu coughs, sneezes, laughs, or talks. You can become infected when you inhale these??viruses directly. You can also become infected when you touch a surface on which the droplets have landed and thentransfer the germs to your eyes, nose, or mouth. Touching used tissues, or sharing utensils, drinking glasses, or a toothbrush with an infected person can expose you to flu viruses, too. What Are the Symptoms of the Flu? Flu symptoms tend to come on quickly and may last a few days to a few weeks. They include: ?? Fever usually higher than 101??F?? (38.3??C)??and chills ?? Sore throat and headache ?? Dry cough ?? Runny nose ?? Tiredness and weakness ?? Muscle aches Factors That Can Make Flu Worse For some people, the flu can be very serious. The risk of complications is greater for: ?? Children under age 5. ?? Adults??65 years of age and older. ?? People with a chronic illness, such as diabetes or heart, kidney, or lung disease. ?? People who live in a detention or long-term care facility. How Is the Flu Treated? Influenza usually improves after 7 days or so. In some cases, your??health care provider??may prescribe an antiviral medication. This may help you get well sooner. For the medication to help, you need to take it as soon as possible (ideally within 48 hours)??after your symptoms start. If you develop pneumonia or other serious illness, hospital care may be needed. Easing Flu Symptoms ?? Drink lots of fluids such as water, juice, and warm soup. A good rule is to drink enough so that you urinate your normal amount. ?? Get plenty of rest. ?? Ask your??health care provider??what to take??for fever and pain. ?? Call your??provider if your fever rises over 101??F (38.3??C) or you become dizzy, lightheaded, or short of breath. Taking??Steps to Protect Others ?? Wash your hands often, especially after coughing or sneezing. Or, clean your hands with an alcohol-based hand??press cleaner containing at least 60 percent alcohol. ?? Cough or sneeze into a tissue. Then throw the tissue away and wash your hands. If you don???t have a tissue, cough and sneeze into the crook of your elbow. ?? Stay home until??at least 24 hours after you no longer have a fever or chills. Be sure the fever isn???t being hidden by fever-reducing medication. ?? Don???t share food, utensils, drinking glasses, or a toothbrush with others. ?? Ask your??health care provider if??others in your household should receive antiviral medication to help them avoid infection. How Can the Flu Be Prevented? ?? One of the best ways to avoid the flu is to get a flu vaccination each year. Viruses that cause the flu change from year to year. For that reason, doctors recommend getting the flu vaccine each year, as soon as it's available in your area. The vaccine may be given as a shot or as a??nasal spray. Your??health care provider??can tell you which vaccine is right for you. ?? Wash your hands often. Frequent handwashing is a proven way to help prevent infection. ?? Carry an alcohol-based hand gel containing at least 60 percent alcohol. Use it when you don???t have access to soap and water. Then wash your hands as soon as you can. ?? Avoid touching your eyes, nose, and mouth. ?? At home and work, clean phones, computer keyboards, and toys often with disinfectant wipes. ?? If possible, avoid close contact with others who have the flu or symptoms of the flu. Handwashing Tips Handwashing is one of the best ways to prevent many common infections. If you???re caring for or visiting someone with the flu, wash your hands each time you enter and leave the room. Follow these steps: ?? Use warm water and plenty of soap. Rub your hands together well. ?? Clean the whole hand, under your nails, between your fingers, and up the wrists. ?? Wash for at least 15??seconds. ?? Rinse, letting the water run down your fingers, not up your wrists. ?? Dry your hands well. Use a paper towel to turn off the faucet and open the door. Using Alcohol-Based Hand Fuselage Framer Alcohol-based hand??tank cooper are also a good choice. Use them when you don???t have access to soap and water. Follow these steps: ?? Squeeze about a tablespoon of gel into the palm of one hand. ?? Rub your hands together briskly, cleaning the backs of your hands, the palms, between your fingers, and up the wrists. ?? Rub until the gel is gone and your hands are completely dry. Preventing Influenza in Healthcare Settings The flu is a special concern for people in hospitals and long-term care facilities. To help prevent the spread of flu, many hospitals and nursing homes take these steps: ?? Health care providers wash their hands or use an alcohol-based hand press cleaner before and after treating each patient. ?? People with the flu have private rooms and bathrooms or share a room with someone with the same infection. ?? High-risk patients who don???t have the flu are encouraged to get the??flu and pneumonia vaccines. ?? All health care workers are encouraged or required to??get flu shots. ? [phone] [employer] [address] [place] [address]. All rights reserved. This information is not intended as a substitute for professional medical care. Always follow your healthcare professional's instructions. documented in this encounter Medications at Time of Discharge Medication Sig Dispensed Refills Start Date End Date albuterol (PROVENTIL HFA) Inhale 1-2 puffs 0 12/1403/21/2020 108 (90 Base) MCG/ACT into the lungs inhaler AMOXICILLIN PO 0 11/04/2017 documented as of this encounter ED Notes Eli Bonilla RN - 07/12/2016 10:58 PM CDT Labs drawn with IV insertion and held Ivelisse Cuevas RN - 07/12/2016 10:19 PM CDT Has been ill with the flu Fever body aches Dx with ear infection and sinus on amoxicillin Tonight Did not recognize family Was per family unresponsive Taking tylenol and advil for fevers Here for eval Onesimo Mitchell MD - 07/12/2016 10:17 PM CDT History Chief Complaint: Fever and Dehydration HPI Lacey Nolasco is a 36 year old female who presents with fever and dehydration. The patient has had fever (102.6) and bilateral ear and sinus infection with influenza diagnosis recently. The patient has been having these symptoms for the past 3 days. The patient recently returned from [facility]. The patient is suffering from mild memory loss per her and has been sleeping most of theday. The patient's notes that the patient was resting on the couch when he left the house from 2114 to 2199 and did not recognize him or her daughter when the returned home. The patientdoes not remember coming here to the ED. The patient has associated cough, headache, and back pain. The patient denies difficulty urinating, dysuria, frequency, hematuria, or urgency. The patient is noted to have been taking Tylenol and ibuprofen throughout the day per . 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 No pertinent family history. Social History: Marital Status: Presents to the ED with and daughter Alcohol Use: Occasional PCP: Ghanshyam Carmona Review of Systems Constitutional: Positive for fever. Genitourinary: Negative for difficulty urinating, dysuria, frequency, hematuria and urgency. Musculoskeletal: Positive for back pain. Neurological: Positive for headaches. Psychiatric/Behavioral: Positive for memory loss. All other systems reviewed and are negative. Physical Exam First Vitals: BP: 129/83 Pulse: 116 Temp: 100.4 ??F (38 ??C) Resp: 18 Weight: 75.8 kg (167 lb) SpO2: 95 % Physical Exam Nursing note and vitals reviewed. Constitutional: Cooperative. Diaphoretic. HENT: Mouth/Throat: Moist mucous membranes. Eyes: EOMI, nonicteric sclera Cardiovascular: tachycardic, regular rhythm, no murmurs, rubs, or gallops Pulmonary/Chest: Effort normal and breath sounds normal. No respiratory distress. No wheezes. No rales. Abdominal: Soft. Nontender, nondistended, no guarding or rigidity. BS present. Musculoskeletal: Normal range of motion of neck and all 4 extremities. Negative meningeal signs. Neurological: Alert. Moves all extremities spontaneously. Skin: Skin is warm and dry. No rash noted. Psychiatric: Normal mood and affect. Emergency Department Course Laboratory: CBC: WBC 4.4, HGB 13.0, PLT 188 CMP: Glc 112 (H), Ca 8.4 (L), Rest WNL (Creatinine 0.74) Lactic Acid: 0.6 HCG Qualitative (2255): Negative. Interventions: (2344) Normal Saline, 2 liter, IV bolus (2344) Toradol, 30 mg, IV injection (2344) Tylenol, 650 mg, PO (108) Reglan 10 mg, IV injection (108) Benadryl, 25 mg, IV injection ED Course: Nursing notes and past medical history reviewed. I performed a physical examination of the patient as documented above. I explained the plan with the patient and family who consents to this. Blood was drawn from the patient. This was sent for laboratory testing, findings above. I personally reviewed the laboratory results with the patient and family and answered all related questions prior to discharge. Findings and plan explained to the patient and family. Patient discharged home with instructions regarding supportive care, medications, and reasons to return. The importance of close follow-up was reviewed. Impression & Plan Medical Decision Making: Lacey Nolasco is a 36 year old female who presents with complaint of confusion at home. Patient was reportedly diagnosed with influenza yesterday at an urgent care clinic. She has been taking Tylenol and ibuprofen around the clock, however this afternoon she reportedly fell asleep and upon waking up was febrile and apparently was quite confused not recognizing her family. By the time she got to the ED, patient's memory had improved, but she was still feeling feverish. She was given both Tylenol and ibuprofen as she had not recently taken them in addition given 2 L of IV fluid. This her improved her symptoms substantially where she was able to ambulate and was feeling better and wanting to go home. Labs were obtained to evaluate for more severe etiology, the patient has a normal white count, a normal lactic acid. She has no neck stiffness on exam. I did have a discussion with both her and her concerning the possibility of meningitis, and we did discuss pros and cons of lumbar puncture. Patient declines it at this time, stating she feels that this is influenza. If she does have meningitis it would almost certainly be viral given labs and exam. She is given strict return precautions for uncontrollable fevers, neck stiffness, seizure, confusion, or for any other reasons. She is in stable condition at the time of discharge, indications for return to the ED were discussed as well as follow up. All questions were answered and she and her are in agreement with the plan. Diagnosis: ICD-10-CM 1. Influenza J11.1 2. Dehydration E86.0 Disposition: Discharge to home. ILefty, am serving as a scribe on 07/12/2016 at 11:36 PM to personally document services performed by Onesimo Mitchell MD, based on my observations and the provider's statements to me. Onesimo Mitchell MD 07/13/16 0628 Ivelisse Cuevas RN - 07/12/2016 10:15 PM CDT Has been ill with high fever dx with double ear and sinus infection along with the flu Vomiting Taking zofran Tylenol and ibuprofen Still with body aches Did not recognize family So was brought in for eval Followed direction in triage documented in this encounter Plan of Treatment Not on filedocumented as of this encounter Procedures Procedure Name Priority Date/Time Associated Comments Diagnosis CBC WITH PLATELETS & STAT 07/12/2016 10:56 Res ults for this DIFFERENTIAL PM CDT procedure are i n the results section. LACTIC ACID STAT 07/12/2016 10:56 Results for this PM CDT procedure are i n the results section. HCG QUALITATIVE STAT 07/12/2016 10:56 Results for this PM CDT procedure are i n the results section. COMPREHENSIVE STAT 07/12/2016 10:56 Results fo r this METABOLIC PANEL PM CDT procedure ar e in the results section. documented in this encounter Results HCG qualitative (07/12/2016 10:56 PM CDT) [facility] Method Time Signature HCG Qualitative Negative [facility]G [place] Serum [facility] Specimen Anatomical Collection Method Collection Time Receive d Time (Source) Location / / Volume Laterality Blood specimen 07/12/2016 10:56 7 (specimen) PM CDT 11:42 PM CDT Onesimo Mitchell MD LAB - BLOOD ORDERABLES Performing Organization Address City/State/ZIP Code Phon e Number [place] [address] [address] [place], [place] [address] [facility] [address] [place], [place] [address] [phone] (ABNORMAL) Comprehensive metabolic panel (07/12/2016 10:56 PM CDT) athologist Signature Sodium 141 133 - 144 [place] mmol/L [facility] Potassium 3.7 3.4 - 5.3 [place] mmol/L [facility] Chloride 108 94 - 109 [place] mmol/L [facility] Carbon Dioxide 23 20 - 32 [place] mmol/L [facility] Anion Gap 10 3 - 14 [place] mmol/L [facility] Glucose 112 (H) 70 - 99 [place] mg/dL [facility] Urea Nitrogen 10 7 - 30 [place] mg/dL [facility] Creatinine 0.74 0.52 - [place] 1.04 mg/dL [facility] GFR Estimate 88 >60 [place] mL/min/1.[address] Comment: Non GFR Calc GFR Estimate If Black >90 >60 mL/min/1.7m2 F [facility] GFR Calc HOSP ITAL Calcium 8.4 (L) 8.5 - 10.1 mg/dL [facility] Bilirubin Total 0.2 0.2 - 1.3 mg/dL [facility] Albumin 3.4 3.4 - 5.0 g/dL [facility] Protein Total 6.9 6.8 - 8.8 g/dL [facility] Alkaline Phosphatase 53 40 - 150 U/L [facility] ALT 20 0 - 50 U/L [facility] AST 20 0 - 45 U/L [facility] Specimen Anatomical Collection Method Collection Time Receive d Time (Source) Location / / Volume Laterality Blood specimen 07/12/2016 10:56 7 (specimen) PM CDT 11:42 PM CDT Onesimo Mitchell MD LAB - BLOOD ORDERABLES Performing Organization Address City/State/ZIP Code Phon e Morales [facility] [address], [place] [address] [facility] [address] [place], [place] [address], [facility] [phone] Lactic acid (07/12/2016 10:56 PM CDT) P athologist Signature Lactic Acid 0.6 0.4 - 2.0 [place] mmol/L [facility] Specimen Anatomical Collection Method Collection Time Receive d Time (Source) Location / / Volume Laterality Blood specimen 07/12/2016 10:56 7 (specimen) PM CDT 11:43 PM CDT Onesimo Mitchell MD LAB - BLOOD ORDERABLES Performing Organization Address City/[facility]/ZIP Code Phon e Morales [facility] [address] [place], [place] [address] [facility] [address] [place], [place] [address], [facility] [phone] (ABNORMAL) CBC with platelets differential (07/12/2016 10:56 PM CDT) Patholo gist Method Time Signature WBC 4.4 4.0 - [place] 11.0 [facility] 10e9/L [facility] RBC Count 4.40 3.8 - 5.2 [place] 10e12/L [facility] Hemoglobin 13.0 11.7 - [place] 15.7 g/dL [facility] Hematocrit 39.7 35.0 - [place] 47.0 % [facility] MCV 90 78 - 100 [facility] MCH 29.5 26.5 - [place] 33.0 pg [facility] MCHC 32.7 31.5 - [place] 36.5 g/dL [facility] RDW 14.2 10.0 - [place] 15.0 % [facility] Platelet Count 188 150 - 450 [place] 10e9/L [facility] Diff Method Automated [facility] % Neutrophils 76.3 % [facility] % Lymphocytes 12.3 % [facility] % Monocytes 10.0 % [facility] % Eosinophils 0.7 % [facility] % Basophils 0.2 % [facility] % Immature 0.5 % [place] Granulocytes [facility] Nucleated RBCs 0 0 /100 [facility] Absolute 3.4 1.6 - 8.3 [place] Neutrophil 10e9/L [facility] Absolute 0.5 (L) 0.8 - 5.3 [place] Lymphocytes 10e9/L [facility] Absolute 0.4 0.0 - 1.3 [place] Monocytes 10e9/L [facility] Absolute 0.0 0.0 - 0.7 [place] Eosinophils 10e9/L [facility] Absolute 0.0 0.0 - 0.2 [place] Basophils 10e9/[facility] Abs Immature 0.0 0 - 0.[address] [place] Granul[address] [place] [address] Absolute 0.0 [place] Nucleated RBC [facility] Specimen Anatomical Collection Method Collection Time Receive d Time (Source) Location / / Volume Laterality Blood specimen 07/12/2016 10:56 7 (specimen) PM CDT 11:42 PM CDT Onesimo Mitchell MD LAB - BLOOD ORDERABLES Performing Organization Address City/State/ZIP Code Phon e Number [place] [address] [phone] documented in this encounter Visit Diagnoses Diagnosis Influenza Influenza with other respiratory manifes tations Dehydration documented in this encounter Administered Medications Inactive Administered Medications - up to 3 most recent administrations Medication Order MAR Action Action Date Dose Rate Site 0.9% sodium chloride BOLUS New Bag 07/12/2016 11:45 PM 2,000 mLs 2000 mL/hr Intravenous, 2,000 mL, CDT ONCE, at 2,000 mL/hr, Administer over 1 Hours, On Fri07/12/16 at 2339, For 1 dose acetaminophen (TYLENOL) tablet 650 mg Given 07/12/2016 11:45 PM CDT 650 mg 650 mg, Oral, ONCE, On Fri07/12/16 at 2339, For 1 dose, Maximum acetaminophen dose from all sources = 75 mg/kg/day not to exceed 4 grams/day. diphenhydrAMINE (BENADRYL) injection 25 mg Given 07/13/2016 1:09 AM CDT 25 mg 25 mg, Intravenous, ONCE, On 07/13/16 at 0058, For 1 dose ketorolac (TORADOL) injection 30 mg Given 07/12/2016 11:45 PM CDT 30 mg 30 mg, Intravenous, ONCE, On Fri07/12/16 at 2339, For 1 dose metoclopramide (REGLAN) injection 10 mg Given 07/13/2016 1:09 AM CDT 10 mg 10 mg, Intravenous, ONCE, On 07/13/16 at 0058, For 1 dose, Avoid use if patient has full bowel obstruction or perforation. Irritant. documented in this encounter Active and Recently Administered Medications Times are shown in CDT. Scheduled Medication Order 07/11/2016 07/12/2016 07/13/2016 0.9% sodium chloride BOLUS (COMPLETED) 2 345 (New Bag - Provider: Eli Bonilla RN) 0228 (Stopped - Provider: Eli Bonilla RN) Intravenous, 2,000 mL, ONCE, at 2,000 mL /hr, Administer over 1 Hours, On Fri07/12/16 at 2339, For 1 dose acetaminophen (TYLENOL) tablet 650 mg (COMPLETED) 2344 (Given - Provider: Eli Bonilla RN) 650 mg, Oral, ONCE, Fri07/12/16 at 2339, For 1 dose, Maximum acetaminophen dose from all sources = 75 mg/kg/day not to exceed 4 grams/day. diphenhydrAMINE (BENADRYL) injection 25 mg (COMPLETED) 108 (Given - Provider: Eli Bonilla RN) 25 mg, Intravenous, ONCE, On 07/13/16 at 0058, For 1 dose ketorolac (TORADOL) injection 30 mg (COMPLETED) 2344 (Given - Provider: Eli Bonilla RN) 30 mg, Intravenous, ONCE, Fri07/12/16 at 2339, For 1 dose metoclopramide (REGLAN) injection 10 mg (COMPLETED) 108 (Given - Provider: Eli Bonilla RN) 10 mg, Intravenous, ONCE, On 07/13/16 at 0058, For 1 dose, Avoid use if patient has full bowel obstruction or perforation. Irritant. 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
--- OUTSIDE RECORDS SUMMARY | 2022-03-23 17:26 | XMS_ITS | Encounter Summary ---
:1980 Author Organization [place] Address [address] [place] [address]. [place] [address] Care Team Providers Name Role Phone Medardo Graf Primary Care Provider Encounter Details Date Type Department Care Team Description 04/21/2019 Orders Only [facility] Noelle Khan ILD (interstitial 9[address] [facility] SE Yumiko MD lung disease) (H) [address] [place] [address] [facility] [id number] [place] [address] [place] [address] (Wo rk) Social History Tobacco Use [...] Procedure Name Priority Date/Time Associated Comments Diagnosis HYPERSENSITIVITY Routine 04/21/2019 5:20 ILD (interstitial Res ults for this PNEUMONITIS 2 PM [employer] NET DEVELOPER lung disease) (H) procedure are in the results section. KARRIE 1 ANTIBODY IGG Routine 04/21/2019 5:20 ILD (interstitial Re sults for this PM [employer] NET DEVELOPER lung disease) (H) procedure are in the results section. SCLERODERMA ANTIBODY Routine 04/21/2019 5:20 ILD (interstitial Results for this SCL70 ALISHA IGG PM [employer] NET DEVELOPER lung disease) (H) procedure are in the results section. SSB LA ALISHA ANTIBODY IGG Routine 04/21/2019 5:20 ILD (interstit ial Results for this PM [employer] NET DEVELOPER lung disease) (H) procedure are in the results section. SSA RO ALISHA ANTIBODY IGG Routine 04/21/2019 5:20 ILD (interstit ial Results for this PM [employer] NET DEVELOPER lung disease) (H) procedure are in the results section. ANCA IGG BY IFA WITH Routine 04/21/2019 5:20 ILD (interstitial Results for this REFLEX TO TITER PM [employer] NET DEVELOPER lung disease) (H) procedu re are in the results section. CYCLIC CITRULLINATED Routine 04/21/2019 5:20 ILD (interstitial Results for this PEPTIDE ANTIBODY IGG PM [employer] NET DEVELOPER lung disease) (H) pr ocedure are in the results section. ANTI NUCLEAR BENTON IGG BY Routine 04/21/2019 5:20 ILD (interstit ial Results for this IFA WITH REFLEX PM [employer] NET DEVELOPER lung disease) (H) procedu re are in the results section. RHEUMATOID FACTOR Routine 04/21/2019 5:20 ILD (interstitial Re sults for this PM [employer] NET DEVELOPER lung disease) (H) procedure are in the results section. IMMUNOGLOBULIN G Routine 04/21/2019 5:20 ILD (interstitial Res ults for this SUBCLASSES PM [employer] DEVELOPER lung disease) (H) procedure are in the results section. HYPERSENSITIVITY Routine 04/21/2019 5:20 ILD (interstitial Res ults for this PNEUMONITIS PM [employer] NET DEVELOPER lung disease) (H) procedure are in the results section. ERYTHROCYTE Routine 04/21/2019 5:20 ILD (interstitial Results for this SEDIMENTATION RATE AUTO PM [employer] DEVELOPER lung disease) (H) procedure are in the results section. CRP INFLAMMATION Routine 04/21/2019 5:20 ILD (interstitial Res ults for this PM [employer] DEVELOPER lung disease) (H) procedure are in the results section. CK TOTAL Routine 04/21/2019 5:20 ILD (interstitial Results for this PM [employer] NET DEVELOPER lung disease) (H) procedure are in the results section. ALDOLASE Routine 04/21/2019 5:20 ILD (interstitial Results for this PM [employer] NET DEVELOPER lung disease) (H) procedure are in the results section. documented in this encounter Results Anti Nuclear Benton IgG by IFA with Reflex (04/21/2019 5:20 PM [employer] NET DEVELOPER) Patholo gist Method Time Signature WATSON interpretation Negative NEG^Negat 04/22/2019 [facility] sidra 11:16 AM [facility] Comment: ? Reference range: <1:40 ??NEGATIVE 1:40 [...] specimen 04/21/2019 5:20 PM 020 5:22 (specimen) [employer] NET DEVELOPER PM [employer] NET DEVELOPER Noelle Khan MD LAB - BLOOD ORDERABLES Performing Organization Address City/State/ZIP Code Phon e Number [facility] [address] Erythrocyte sedimentation rate auto (04/21/2019 5:20 PM DOT NET DEVELOPER) P athologist Signature Sed Rate 7 0 - 20 mm/h 04/21/2019 [facility] 5:42 PM [facility] Specimen Anatomical Collection Method Collection Time Receive d Time (Source) Location / / Volume Laterality Blood specimen 04/21/2019 5:20 PM 020 5:22 (specimen) DOT NET DEVELOPER PM [employer] NET DEVELOPER Noelle Khan MD LAB - BLOOD ORDERABLES Performing Organization Address City/[facility]/[place] [address] [facility] CRP inflammation (04/21/2019 5:20 PM DOT NET DEVELOPER) Analysis Performed At Patho logist Time Signature CRP Inflammation <2.9 0.0 - 8.0 04/21/2019 [facility] F mg/L 6:36 PM DOT NET DEVELOPER [facility] Specimen Anatomical Collection Method Collection Time Receive d Time (Source) Location / / Volume Laterality Blood specimen 04/21/2019 5:20 PM 020 5:22 (specimen) DOT NET DEVELOPER PM [employer] NET DEVELOPER Noelle Khan MD LAB - BLOOD ORDERABLES Performing Organization Address City/[facility]/ZIP Code Phon e Number [address] [address] [facility] (ABNORMAL) CK total (04/21/2019 5:20 PM DOT NET DEVELOPER) athologist Signature CK Total 267 (H) 30 - 225 04/21/2019 [facility] U/L 6:36 PM [employer] NET DEVELOPER [facility] Specimen Anatomical Collection Method Collection Time Receive d Time (Source) Location / / Volume Laterality Blood specimen 04/21/2019 5:20 PM 020 5:22 (specimen) DOT NET DEVELOPER PM [employer] NET DEVELOPER Noelle Khan MD LAB - BLOOD ORDERABLES Performing Organization Address City/[facility]/ZIP Code Phon e Number [id number] [place] [address] [facility] Karrie 1 Antibody IgG (04/21/2019 5:20 PM DOT NET DEVELOPER) athologist Signature Karrie 1 Antibody <0.2 0.0 - 0.9 04/23/2019 [facility] IgG AI 1:01 PM DOT NET DEVELOPER [facility] Comment: Negative Antibody index (AI) values reflect quali tative changes in antibody concentration that cannot be directly as sociated with clinical condition or disease state. Specimen Anatomical Collection Method Collection Time Receive d Time (Source) Location / / Volume Laterality Blood specimen 04/21/2019 5:20 PM 020 5:22 (specimen) DOT NET DEVELOPER PM [employer] NET DEVELOPER Noelle Khan MD LAB - BLOOD ORDERABLES Performing Organization Address City/State/ZIP Code Phon e Number [facility] [address] [place], [place] [phone] [place] [address] Scleroderma Antibody Scl70 ALISHA IgG (04/21/2019 5:20 PM DOT NET DEVELOPER) athologist Signature Scleroderma <0.2 0.0 - 0.9 04/23/2019 [facility] OF Antibody Scl-70 AI 1:01 PM [facility] DEVELOPER [facility] Comment: Negative Antibody index (AI) values reflect quali tative changes in antibody concentration that cannot be directly as sociated with clinical condition or disease state. Specimen Anatomical Collection Method Collection Time Receive d Time (Source) Location / / Volume Laterality Blood specimen 04/21/2019 5:20 PM 020 5:22 (specimen) DOT NET DEVELOPER PM [employer] NET DEVELOPER Noelle Khan MD LAB - BLOOD ORDERABLES Performing Organization Address City/[facility]/ZIP Code Phon e Number [facility] [address] Rheumatoid factor (04/21/2019 5:20 PM DOT NET DEVELOPER) athologist Signature Rheumatoid <20 <12 IU/mL 04/22/2019 [facility] Factor 8:49 AM [facility] Comment: Reference range <20. Assayed by alternate method. Specimen Anatomical Collection Method Collection Time Receive d Time (Source) Location / / Volume Laterality Blood specimen 04/21/2019 5:20 PM 020 5:22 (specimen) DOT NET DEVELOPER PM [employer] NET DEVELOPER Noelle Khan MD LAB - BLOOD ORDERABLES Performing Organization Address City/[facility]/ZIP Code Phon e Number [address] SSA Ro ALISHA Antibody IgG (04/21/2019 5:20 PM DOT NET DEVELOPER) athologist Signature SSA (Ro) (ALISHA) <0.2 0.0 - 0.9 04/23/2019 [facility] Antibody, IgG AI 1:01 PM [employer] NET DEVELOPER [facility] Comment: Negative Antibody index (AI) values reflect quali tative changes in antibody concentration that cannot be directly as sociated with clinical condition or disease state. Specimen Anatomical Collection Method Collection Time Receive d Time (Source) Location / / Volume Laterality Blood specimen 04/21/2019 5:20 PM 020 5:22 (specimen) DOT NET DEVELOPER PM [employer] NET DEVELOPER Noelle Khan MD LAB - BLOOD ORDERABLES Performing Organization Address City/[facility]/ZIP Code Phon e Number [address] SSB La ALISHA Antibody IgG (04/21/2019 5:20 PM DOT NET DEVELOPER) athologist Signature SSB (La) (ALISHA) <0.2 0.0 - 0.9 04/23/2019 [facility] Antibody, IgG AI 1:01 PM [employer] NET DEVELOPER [facility] Comment: Negative Antibody index (AI) values reflect quali tative changes in antibody concentration that cannot be directly as sociated with clinical condition or disease state. Specimen Anatomical Collection Method Collection Time Receive d Time (Source) Location / / Volume Laterality Blood specimen 04/21/2019 5:20 PM 020 5:22 (specimen) DOT NET DEVELOPER PM DOT NET DEVELOPER Noelle Khan MD LAB - BLOOD ORDERABLES Performing Organization Address City/[facility]/ZIP Code Phon e Number [phone] [place] [address] Aldolase (04/21/2019 5:20 PM DOT NET DEVELOPER) athologist Signature Aldolase 4.6 1.5 - 8.1 04/24/2019 [place] [facility] U/L 9:46 PM [employer] NET DEVELOPER [facility] Comment: (Note) REFERENCE INTERVAL: Aldolase Access complete set of age- and/or gende r-specific reference intervals for this test in the [facility] ([facility]). Performed by [facility], [address] [place] [id number] [email or web address], Jef Turner MD, Lab. Director Specimen Anatomical Collection Method Collection Time Receive d Time (Source) Location / / Volume Laterality Blood specimen 04/21/2019 5:20 PM 020 5:22 (specimen) DOT NET DEVELOPER PM [employer] NET DEVELOPER Noelle Khan MD LAB - BLOOD ORDERABLES Performing Organization Address City/State/ZIP Code Phon e Number [address] [address] [facility] Hypersensitivity pneumonitis (04/21/2019 5:20 PM DOT NET DEVELOPER) [facility] gist Method Time Signature Aspergillus None None 04/26/2019 [facility] Detected Detected 6:18 PM DOT NET DEVELOPER [facility] Aspergillus None None 04/26/2019 [facility] Fumagatis 6 Detected Detected 6:18 PM [employer] NET DEVELOPER [place] Antibody [facility] Aureo Pullulans None None 04/26/2019 [facility] Detected Detected 6:18 PM [facility] Comment: (Note) Testing includes antibodies directed at Aureobasidium pullulans, Aspergillus fumigatus #1, Asp ergillus fumigatus #6, Micropolyspora faeni, [place] Serum a nd Thermoactinomyces vulgaris #1. [place] serum None Detected None Detected 04/26/2019 6:18 [facility] PM [facility] Micropolyspora Faeni None Detected None Detected 04/26/2019 6:18 [facility] PM [facility] Thermoact Vulgaris 1 None Detected None Detected 04/26/2019 6:18 [facility] PM [facility] Comment: (Note) Performed by [facility], [address] [place] [id number] [email or web address], Jef Turner MD, Lab. Director Specimen Anatomical Collection Method Collection Time Receive d Time (Source) Location / / Volume Laterality Blood specimen 04/21/2019 5:20 PM 020 5:22 (specimen) DOT NET DEVELOPER PM [employer] NET DEVELOPER Noelle Khan MD LAB - BLOOD ORDERABLES Performing Organization Address City/State/[place] [address] [facility] Hypersensitivity Pneumonitis 2 - Curran's Lung (04/21/2019 5:20 PM DOT NET DEVELOPER) [facility] Method Time Signature Aspergillus None None 04/26/2019 [facility] flavus Ab Detected Detected 6:18 PM [facility] Comment: (Note) Testing includes antibodies directed at Aspergillus flavus, Aspergillus fumigatus #2, Aspergillus fu migatus #3, Saccharomonospora viridis, and Thermoact inomyces candidus. A fumigatus #2 Ab None Detected None Detected 04/26/2019 6:1 8 PM [facility] A fumigatus #3 Ab None Detected None Detected 04/26/2019 6:1 8 PM [facility] Saccharo viridis None Detected None Detected 04/26/2019 6:18 PM [facility] Thermo candidus None Detected None Detected 04/26/2019 6:18 PM [facility] Comment: (Note) Performed by [facility], [address] [place] [address] [email or web address], Jef Turner MD, Lab. Director Specimen Anatomical Collection Method Collection Time Receive d Time (Source) Location / / Volume Laterality Blood specimen 04/21/2019 5:20 PM 020 5:22 (specimen) DOT NET DEVELOPER PM DOT NET DEVELOPER Noelle Khan MD LAB - BLOOD ORDERABLES Performing Organization Address City/State/ZIP Code Phon e Number [facility] [address] [place] [address] [facility] ANCA IgG by IFA with Reflex to Titer (04/21/2019 5:20 PM DOT NET DEVELOPER) Patholo gist Method Time Signature Neutrophil <1:10 <1:10 04/22/2019 [facility] Cytoplasmic {titer} 11:16 AM [facility] DEVELOPER [place] [facility] Antibody [facility] Neutrophil The ANCA 04/22/2019 [facility] Cytoplasmic IFA is 11:16 AM DOT NET DEVELOPER [facility] Antibody <1:10. No [facility] testing will be performed. Specimen Anatomical Collection Method Collection Time Receive d Time (Source) Location / / Volume Laterality Blood specimen 04/21/2019 5:20 PM 020 5:22 (specimen) DOT NET DEVELOPER PM DOT NET DEVELOPER Noelle Khan MD LAB - BLOOD ORDERABLES Performing Organization Address City/State/ZIP Code Phon e Number [facility] [address] [place], [place] [phone] [place] [address] (ABNORMAL) IgG Subclasses (04/21/2019 5:20 PM DOT NET DEVELOPER) P athologist Signature IGG 983 610 - 1,616 04/22/2019 [facility] mg/dL 11:35 AM [facility] IgG1 335 (L) 382 - 929 04/23/2019 [facility] mg/dL 1:31 PM [facility] IgG2 549 242 - 700 04/23/2019 [facility] mg/dL 1:31 PM [facility] IgG3 74 22 - 176 04/23/2019 [facility] mg/dL 1:31 PM [facility] IgG4 69 4 - 86 04/23/2019 [facility] mg/dL 1:31 PM DOT NET DEVELOPER [facility] Specimen Anatomical Collection Method Collection Time Receive d Time (Source) Location / / Volume Laterality Blood specimen 04/21/2019 5:20 PM 020 5:22 (specimen) DOT NET DEVELOPER PM DOT NET DEVELOPER Noelle Khan MD LAB - BLOOD ORDERABLES Performing Organization Address City/[facility]/ZIP Code Phon e Number [phone] [place] [address] Cyclic Citrullinated Peptide Antibody IgG (04/21/2019 5:20 PM DOT NET DEVELOPER) [facility] gist Method Time Signature Cyclic 1 <7 U/mL 04/22/2019 [facility] Citrullinated 1:32 PM DOT NET DEVELOPER [facility] Peptide Antibody, [facility] Comment: Negative Specimen Anatomical Collection Method Collection Time Receive d Time (Source) Location / / Volume Laterality Blood specimen 04/21/2019 5:20 PM 020 5:22 (specimen) DOT NET DEVELOPER PM DOT NET DEVELOPER Noelle Khan MD LAB - BLOOD ORDERABLES Performing Organization Address City/State/ZIP Code Phon e Number [phone] [place] [address] documented in this encounter Visit Diagnoses Diagnosis ILD (interstitial lung disease) (H) Postinflammatory pulmonary fibrosis documented in this encounter Care Teams Graphic Art Designer Relationship Specialty Start Date End Date Medardo Graf PCP - General Family Practice 11/15/18 [facility] [address] [place] [address] documented as of this encounter
--- OUTSIDE RECORDS SUMMARY | 2022-03-23 17:27 | XMS_ITS | Encounter Summary ---
:1980 Author Organization [facility] Address [address] [place] [address]. [place] [address] Care Team Providers Name Role Phone Ghanshyam Hassan Primary Care Provider [phone] Reason for Visit Reason Comments Hand Pain Encounter Details Date Type Department Care Team Description 11/25/[address] [facility] Noble Pennington C losedominic fracture of [address] [place] [address] Emergency Dep t metacarpal, initial [address] [facility] encounter (Primary Dx) [place], [place] [id number] [address] [facility] [phone] [place], [place] [phone] (Wo rk) Social History Tobacco Use Types [...] Sign Reading Time Taken Comments Blood Pressure 118/60 11/25/2013 7:21 AM CDT Pulse 72 11/25/2013 7:21 AM CDT Temperature 36.3 ??C (97.4 ??F) 11/25/2013 6:08 AM CDT Respiratory Rate 16 11/25/2013 7:21 AM CDT Oxygen Saturation 99% 11/25/2013 7:21 AM CDT Inhaled Oxygen Concentration - - Weight - - Height - - Body Mass Index - - documented in this encounter Discharge Instructions Discharge InstructionsNoble Pennington MD - 11/25/2013 7:08 AM CDT Images from the original note were not included. Please make an appointment to follow up with [facility] in 3-5 days even if entirely better. Fracture:Hand [Closed] You have a fracture (break) of a bone in your hand. This may be a small crack or chip in the bone or, it may be a major break with the broken parts pushed out of position. A hand fracture is treated with a splint or cast. It usually takes 4-6 weeks to heal. Severe injuries may require surgery. Home Care: 1) Keep your arm elevated to reduce pain and swelling. When sitting or lying down elevate your arm above the level of your heart. You can do this by placing your arm on a pillow that rests on your chest or on a pillow at your side. This is most important during the first 48 hours after injury. 2) Apply an ice pack (ice cubes in a plastic bag, wrapped in a towel) over the injured area for 20 minutes every 1-2 hours the first day. You can place the ice pack inside the sling and directly over the splint/cast. Continue with ice packs 3-4 times a day for the next two days, then as needed for therelief of pain and swelling. 3) Keep the cast/splint completely dry at all times. Bathe with your cast/splint out of the water, protected with a large plastic bag, rubber-banded at the top end. If a fiberglass cast/splint gets wet, you can dry it with a hair-dryer. 4) You may use acetaminophen (Tylenol) or ibuprofen (Motrin, Advil) to control pain, unless another pain medicine was prescribed. [ NOTE : If you have chronic liver or kidney disease or ever had a stomach ulcer or GI bleeding, talk with your doctor before using these medicines.] Follow Up with your doctor within one week, or as advised by our staff, to be sure the bone is healing properly. If you were given a splint, it may be changed to a cast at your follow-up visit. [NOTE: A radiologist will review any X-rays that were taken. We will notify you of any new findings that may affect your care.] Get Prompt Medical Attention if any of the following occur: -- The plaster cast or splint becomes wet or soft -- The fiberglass cast or splint remains wet for more than 24 hours -- Increased tightness or pain under the cast or splint -- Fingers become swollen, cold, blue, numb or tingly ?? [id number] [facility], [address] [place] [address], [place] [address]. All rights reserved. This information is not intended as a substitute for professional medical care. Always follow your healthcare professional's instructions. Discharge Instructions Splint Care You had a splint put on today to help protect your injury and help it heal. Splints are used to treat things like strains, sprains, cuts and fractures (broken bones). Be sure your splint is not too tight! If you splint is too tight, it may cause loss of blood supply.Signs of your splint being too tight include: your arm or leg hurting a lot more; your fingers or toes getting numb, cold, pale or blue; or your child is crying, fussing or seeming restless. Return to the Emergency Department right away if: ??? You have increased pain or pressure around the injury. ??? You have numbness, tingling, or cool, pale, or blue toes or fingers past the injury. ??? Your child is more fussy than normal, crying a lot, or restless. ??? Your splint becomes soft, breaks, or is wet. ??? Your splint begins to smell bad. ??? Your splint is cutting into your skin. Home care: ??? Keep the injured area above the level of your heart while laying or sitting down. This will helpdecrease the swelling and the pain. ??? Keep the splint dry. ??? Do not put objects down or inside the splint. ??? If there is an elastic bandage (Rahul?? wrap) holding the splint on this may be loosened slightly to relieve pressure or pain. If pain continues return to the Emergency Department right away. ??? Do not remove your splint by yourself unless told to by your doctor. Follow-up: Sometimes the splint put on in the Emergency Department needs to be changed once the swelling has gone down and a more permanent cast needs to be placed. This is usually done by a bone specialist doctor (Orthopedist). Follow the instructions given to you by your doctor today. X-rays: X-rays done today were read by your doctor but will also be read by a radiologist. We will contact you if the radiologist sees anything different on the x-ray. Your regular doctor may also wantto review your x-rays on follow-up. You could have a fracture (break), even if we told you your x-rays were normal. X-rays are not always certain, and some fractures are hard to see and may not show up right away. Also, your x-ray may look like you have a fracture, even though you do not. It is important to follow-up with your regular doctor. If you were given a prescription for [...] contain Tylenol?? (acetaminophen), including Vicodin??, Tylenol #3??, Merritt??, Lortab??, and Percocet??. You should not take [...] fiber cereal. Take a laxative if you don???t move your bowels at least every other [...] Sig Dispensed Refills Start Date End Date HYDROcodone-acetaminophe Take 1-2 tablets by 15 tablet 0 05/23/2015 n (NORCO) 5-325 MG per mouth every 4 hours tablet as needed for moderate to severe pain oxyCODONE (ROXICODONE) 5 Take 1-2 tablets 30 tablet 0 04/2705/23/2015 MG immediate release (5-10 mg) by mouth tabletIndications: every 3 hours as Menorrhagia needed for pain or other (Moderate to Severe) documented as of this encounter ED Notes Mona Patel RN - 11/25/2013 7:14 AM CDT Bedside report pt right wrist in splint. Pain managed pt requested work note waiting for d/c paperwork. Noble Pennington MD - 11/25/2013 6:11 AM CDT History Chief Complaint: Hand Pain HPI Lacey Nolasco is a right-hand dominant 33 year old female who presents for evaluation of hand pain. She reports experiencing right hand pain after her right hand was pinned between a desk and a wallwhile at work yesterday. Unfortunately, she again struck her right hand on the end of her bed at 4 AM this morning which exacerbated her pain to 9/10 severity. She states the pain is primarily on the ulnar aspect and in her 5th finger and is exacerbated with flexion and extension. She feels as though there is something clicking and her pain has not dissipated despite taking Ibuprofen. Additionally,she reports associated 5th finger tingling. She denies break in skin or weakness or numbness in her extremity. Allergies: Ambien Medications: Oxycodone (Roxicodone) Past Medical History: Hx of previous reproductive problem Past Surgical History: Tonsillectomy Neck surgery Cervical disc replacement Dilation and curettage suction, ablate endometrium novasure Family History: History reviewed. No pertinent family history. Social History: Smoking Status: Never Smoker Smokeless Tobacco: Never Used Alcohol Use: Yes - occasionally Marital Status: Review of Systems Musculoskeletal: Positive for right hand pain (ulnar aspect). Skin: Negative for wound. Neurological: Negative for weakness and numbness. Positive for right 5th finger tingling. All other systems reviewed and are negative. Physical Exam First Vitals: BP: 118/88 mmHg Pulse: 66 Temp: 97.4 ??F (36.3 ??C) Resp: 20 SpO2: 99 % Physical Exam General: Well-appearing in no acute distress resting comfortably in the bed. HEENT: Oropharynx is moist, without lesions or trismus. EYES: Conjunctiva normal. NECK: Supple, no meningismus. CV: Regular rate and rhythm No murmurs, rubs or gallops. 2+ radial pulses bilaterally. PULM: Clear to auscultation bilaterally. No respiratory distress. No wheezing, rales or stridor. ABD: Soft, non-tender, non-distended. No pulsatile masses. No rebound or guarding. MSK: Right hand: No gross deformity. No rotational deformity of the 5th finger. FDS, FDP and extensor tendon intact. Tenderness to 5th MCP joint without bony crepitus. No subungual hematoma or nail injury. LYMPH: No cervical lymphadenopathy. NEURO: Median, radial and ulnar nerve intact to RUE. SKIN: Warm, dry and intact. No rash. PSYCH: Mood is good and affect is appropriate. Emergency Department Course Imaging: Radiographic findings were communicated with the patient who voiced understanding of the findings. Hand XR, right: Fracture of the 5th metacarpal head. Read by Dr. Pennington. Interventions: 0625 Tylenol 975 mg PO Procedures: Splint Placement PLACEMENT: Custom Orthoglass ulnar gutter splint was applied to the right upper extremity and after placement I checked and adjusted the fit to ensure proper positioning. The patient was more comfortable with the splint in place. Sensation and circulation are intact after splint placement. Emergency Department Course: 6:13 AM: Nursing notes and vitals reviewed. I performed an exam of the patient as documented above. The patient was sent for a right hand x-ray while in the emergency department, results above. The patient reported good relief after the above interventions. Findings and plan explained to the Patient. Patient discharged home with instructions regarding supportive care, medications, and reasons to return. The importance of close follow-up was reviewed. The patient was prescribed Merritt. Impression & Plan Medical Decision Making: This is a 33-year old female seen in the ED for blunt right hand trauma. The patient is found to have a fracture of the head of the 5th metacarpal. The patient was placed in an ulnar gutter splint. general care instructions given and referral to orthopedic surgery. Diagnosis: 1. (815.09) Closed fracture of 5th metacarpal, initial encounter Brittni Chan, lisa serving as a scribe on 11/25/2013 at 6:13 AM to personally document services performed by Dr. Pennington based on my observations and the provider's statements to me. Noble Pennington MD 11/25/13 0741 Yvette Salgado RN - 11/25/2013 6:09 AM CDT Pt to ER with c/o pain to right hand , struck it on bed and now painful documented in this encounter Plan of Treatment Not on filedocumented as of this encounter Procedures Procedure Name Priority Date/Time Associated Diagnosis Comme nts XR HAND RIGHT G/E 3 STAT 11/25/2013 6:38 AM Re sults for this VIEWS CDT procedure are i n the results section. documented in this encounter Results Hand XR, G/E 3 views, right (11/25/2013 6:38 AM CDT) Anatomical Region Laterality Modality Hand, Wrist Right Computed Radiography Specimen (Source) Anatomical Location Collection Method / Collectio n Time Received Time / Laterality Volume Impressions 11/25/2013 7:48 AM CDT IMPRESSION: 1. Fracture of the distal fifth metacarp al shaft, nondisplaced. 2. Other bones are intact. ?? ALBARO JONES MD Narrative 11/25/2013 7:48 AM CDT RIGHT HAND, 3 VIEWS ??- ??11/25/2013 6:38 AM NUMBER OF IMAGES AVAILABLE FOR INTERPRET ATION: 3 HISTORY: ??Fifth digit pain. COMPARISON: None. Procedure Note Albaro Jones MD - 11/25/2013Forma tting of this note might be different from the original. RIGHT HAND, 3 VIEWS - 11/25/2013 6:38 AM NUMBER OF IMAGES AVAILABLE FOR INTERPRET ATION: 3 HISTORY: Fifth digit pain. COMPARISON: None. IMPRESSION IMPRESSION: 1. Fracture of the distal fifth metacarp al shaft, nondisplaced. 2. Other bones are intact. ALBARO JONES MD Noble Pennington MD IMG DIAGNOSTIC IMAGING ORDER AVERY documented in this encounter Visit Diagnoses Diagnosis Closed fracture of 5th metacarpal, initi al encounter - Primary documented in this encounter Administered Medications Inactive Administered Medications - up to 3 most recent administrations Medication Order MAR Action Action Date Dose Rate Site acetaminophen (TYLENOL) tablet 975 Given 11/25/2013 6:25 AM CDT 975 mg mg 975 mg, Oral, ONCE, On Jeannette 11/25/13 at 0618, For 1 dose, Maximum acetaminophen dose from all sources = 75 mg/kg/day not to exceed 4 grams/day. documented in this encounter Active and Recently Administered Medications Times are shown in CDT. Scheduled Medication Order 11/23/2013 11/24/2013 11/25/2013 acetaminophen (TYLENOL) tablet 975 mg (COMPLETED) 0625 (Given - Provider: Selin Wise RN) 975 mg, Oral, ONCE, Jeannette 11/25/13 at 0618, For 1 dose, Maximum acetaminophen dose from all sources = 75 mg/kg/day not to exceed 4 grams/day. documented in this encounter Care Teams Furnace Checker Relationship Specialty Start Date End Date Ghanshyam Hassan PCP - General 04/08/12 11/14/18 [address] [address] [place] [address] documented as of this encounter
--- OUTSIDE RECORDS SUMMARY | 2022-03-23 17:27 | XMS_ITS | Encounter Summary ---
:1980 Author Organization [facility] Address [address] [place] [address]. [place] [address] Care Team Providers Name Role Phone Allen Amaya MD Primary Care Provider Reason for Visit Reason Comments Other pain Encounter Details Date Type Department Care Team Description 02/23/2012 Emergency [facility] Mark Gage P ain of [place] area [facility] Emergency Dep t (Primary Dx) [address] [facility] [id number] [facility] [phone] [place] [id number] (Wo rk) Social History Tobacco Use Types Packs/Day Years Used Date Smoking Tobacco: Never Alcohol Use Standard Drinks/Week Comments [...] Sign Reading Time Taken Comments Blood Pressure 103/61 02/23/2012 7:20 PM ROLLING MACHINE OPERATOR AUTOMATIC Pulse 94 02/23/2012 5:10 PM ROLLING MACHINE OPERATOR AUTOMATIC Temperature 36.9 ??C (98.4 ??F) 02/23/2012 5:10 PM ROLLING MACHINE OPERATOR AUTOMATIC Respiratory Rate 20 02/23/2012 6:43 PM ROLLING MACHINE OPERATOR AUTOMATIC Oxygen Saturation 97% 02/23/2012 7:20 PM ROLLING MACHINE OPERATOR AUTOMATIC Inhaled Oxygen Concentration - - Weight 86.2 kg (190 lb) 02/23/2012 5:10 PM ROLLING MACHINE OPERATOR AUTOMATIC Height 167.6 cm (5' 6) 02/23/2012 5:10 PM ROLLING MACHINE OPERATOR AUTOMATIC Body Mass Index 30.67 02/23/2012 5:10 PM ROLLING MACHINE OPERATOR AUTOMATIC documented in this encounter Discharge Instructions Discharge InstructionsMark Gage MD - 02/23/2012 8:29 PM CST WARM SITZ BATHES PRN SHE HAS PAIN MEDS AT HOME SENNA S ANUSOL HC SUPP BID PRN ING MACHINE OPERATOR AUTOMATIC documented in this encounter Medications at Time of Discharge Medication Sig Dispensed Refills Start Date End Date acetaminophen (TYLENOL) Take 2 tablets by 250 tablet 1 11/0304/19/2013 325 MG tabletIndications: mouth every 4 hours Headache(784.0) as needed. oxyCODONE-acetaminophen Take 1-2 tablets by 20 tablet 0 01/201204/19/2013 (PERCOCET) 5-325 MG per mouth every 6 hours tablet as needed for pain. Vit-Fe Take 1 tablet by 0 09/2013 Fumarate-FA ( mouth daily. MULTIVITAMIN PLUS IRON) 27-0.8 MG TABS documented as of this encounter ED Notes Tate Sandhu RN - 02/23/2012 7:37 PM CST Pt given pink lady tolerated well. Pt instructed to hold as long as possible.commode at bedside. ING MACHINE OPERATOR AUTOMATIC Mark Gage MD - 02/23/2012 5:38 PM CST History Chief Complaint: Possible prolapse HPI Lacey Nolasco is a 30 weeks 31 year old female who presents with a possible prolapse. Of note, the patient was in the ED yesterday for flank pain. During this visit, she had an US performed that indicated moderate bilateral hydronephrosis, per radiology, of unclear etiology. She was given Zofran, morphine, and 1L normal saline and discharged home. Today, the patient describes that 1 week ago she developed a hemorrhoid that she has been treating with witch nandini, Proctofoam, and a stool softener. She continues that she had not had any complications with this treatment until today when she attempted to have a BM. She describes that she had to strain heavily, but despite straining was unsuccessful in moving her stool. She continues that she attempted to manually remove her stool from her rectum and, after removal, had things hanging out of my body and bleeding per rectum, prompting her to come to the ED. Here, she is tearful and states that her rectum hurts. She denies atypical nausea, or vomiting. She denies fever, chills, urinary symptoms, vaginal pain, bleeding, or discharge. Allergies: Ambien Medications: Percocet multivitamin Tylenol Past Medical History: Headaches Past Surgical History: Tonsillectomy Fulguration of endometriosis Family History: The patient denies any relevant family history. Social History: The patient is and present with her . The patient is a non smoker andreports no alcohol use during her . Review of Systems Constitutional: Negative for fever and chills. Gastrointestinal: Positive for rectal pain. Negative for nausea and vomiting. Difficult BM just DEEP FAT COOK FRY. Manually removed stool and felt things hanging out of my body. Genitourinary: Negative for dysuria, urgency, frequency, hematuria, vaginal bleeding, vaginal discharge and vaginal pain. All other systems reviewed and are negative. Physical Exam First Vitals: BP: 124/79 mmHg Pulse: 94 Temp: 98.4 ??F (36.9 ??C) Resp: 28 Height: 167.6 cm (5' 6) Weight: 86.183 kg (190 lb) SpO2: 100 % Physical Exam Nursing note and vitals reviewed. Constitutional: She appears well-developed. HENT: Head: Normocephalic. Right Ear: External ear normal. Left Ear: External ear normal. Nose: Nose normal. Mouth/Throat: Oropharynx is clear and moist and mucous membranes are normal. Eyes: Conjunctivae are normal. Pupils are equal, round, and reactive to light. Neck: Normal range of motion. Neck supple. Cardiovascular: Normal rate and regular rhythm. Pulmonary/Chest: Effort normal and breath sounds normal. She has no wheezes. She has no rhonchi. Shehas no rales. Abdominal: Soft. She exhibits no mass. There is no hepatosplenomegaly. There is no tenderness. Thereis no rebound. Genitourinary: 30 weeks , so fundus is at xyphoid. Rectal exam: Two small edematous areas on the left perianal region that extend slightly up to labia majora. Hemorrhoidal tag at 6 o'clock. Musculoskeletal: Normal range of motion. Lymphadenopathy: No lymphadenopathy Neurological: She is alert. Skin: Skin is warm and dry. Psychiatric: She has a normal mood and affect. Emergency Department Course Interventions: Morphine 4mg IV injection [place] lady enema Emergency Department Course: I examined the patient. Plan of care discussed. The patient agrees with this plan. IV inserted and blood drawn. The patient was placed on continuous pulse oximetry and cardiac monitoring. 7:37 PM [place] lady enema given with some movement of stool. 8:18 PM Recheck. Patient still in some pain, but is requesting to go home. 8:29 PM Recheck. The patient felt slightly improved after the above interventions and requested to go home. The patient will be discharged home to follow up with primary care doctor per discharge instructions. Indications for return to the ED were discussed and the patient understands. All questions were answered prior to discharge. Impression & Plan Medical Decision Making: Lacey presents this evening with constipation and perirectal pain MDM possibilities are hemorrhoids. She was concerned about prolapse; I will check her for that. I put her up in the lithotomy position and there was no sign of any prolapse. There is a small hemorrhoidal tag at the 6 o'clock position and then some edema around the left side of the perianal area into the labia majora on that side. Shestated that she did try to get some stool out and it is possible that she pinched her skin in that area. The treatment was a cool pack. She still felt as though she had to go to the bathroom, so we gave her a pink lady enema. She did have some results but was still having more pain in that area. I rechecked it. We had cool packs at the area and it is coming down a little bit. Discharge Plan: She can use cool packs, but I also suggested warm sitz baths PRN for comfort. Anusol HC suppository BID PRN the next 5-6 days. Senna-S for stool softener, 1 daily or BID. She has pain medications at home. See Dr. Villa tomorrow if at all possible for follow up. Condition stable. Diagnosis: 1. Perianal pain due to edema on the left side of the anus Alisha Chan, am serving as a scribe at 5:39 PM on 02/23/2012 to document services personally performed by Mark Gage MD, based on my observations and the provider's statements to me. Mark Gage MD 02/23/122113 Mark Gage MD 02/23/122113 ING MACHINE OPERATOR AUTOMATIC Rochelle Fabian RN - 02/23/2012 5:13 PM CST Pt complains of things hanging out of my body after straining and manually digging out stool. In triage airway, breathing and circulation intact without need for intervention. Tearful, alert andinteracting appropriately for age and situation. HOME MEDICATIONS: List in EPIC is correct. ING MACHINE OPERATOR AUTOMATIC documented in this encounter Plan of Treatment Not on filedocumented as of this encounter Visit Diagnoses Diagnosis Pain of perianal area - Primary Anal or rectal pain documented in this encounter Administered Medications Inactive Administered Medications - up to 3 most recent administrations Medication Order MAR Action Action Date Dose Rate Site 0.9 % sodium chloride IV New Bag 02/23/2012 5:59 PM ROLLING MACHINE OPERATOR AUTOMATIC 1,000 mLs 10 mL/hr solution at 10 mL/hr, Intravenous, CONTINUOUS, Starting on 02/23/12 at 1800, Until 02/23/12 at 2236 morphine (PF) injection 4 mg Given 02/23/2012 5:57 PM ROLLING MACHINE OPERATOR AUTOMATIC 4 mg 4 mg, Intravenous, ONCE PRN, moderate to severe pain, Starting on 02/23/12 at 1751, For 1 dose pink lady enema (COMPOUNDED) Given 02/23/2012 7:37 PM ROLLING MACHINE OPERATOR AUTOMATIC 286 mLs 286 mL, Rectal, ONCE, On 02/23/12 at 1930, For 1 dose documented in this encounter Active and Recently Administered Medications Times are shown in ROLLING MACHINE OPERATOR AUTOMATIC. Scheduled Medication Order 02/21/2012 02/22/2012 02/23/2012 pink lady enema (COMPOUNDED) (COMPLETED) 193 (Given - Provider: Tate Sandhu, RN) 286 mL, Rectal, ONCE, 02/23/12 at 1930, For 1 dose Continuous Medication Order 02/21/2012 02/22/2012 02/23/2012 0.9 % sodium chloride IV solution (CANCELED) 175 (New Bag - Provider: Tate Sandhu, RN)2030 (Stopped - Provider: Sean Uribe RN) 1,000 mL, Intravenous, at 10 mL/hr, CONTINUOUS, Starting Sun 02/23 at 1800 PRN Medication Order 02/21/2012 02/22/2012 02/23/2012 morphine (PF) injection 4 mg (COMPLETED) 1756 (Given - Provider: Tate Sandhu, LEELA) 4 mg, Intravenous, ONCE PRN, moderate to severe pain, Starting 02/23/12 at 1751, For 1 dose documented in this encounter Care Teams Utility Division Project Manager Relationship Specialty Start Date End Date Allen Amaya MD PCP - General radio tower technician 02/23/12 04/07/12 documented as of this encounter
--- OUTSIDE RECORDS SUMMARY | 2022-03-23 17:27 | XMS_ITS | Encounter Summary ---
:1980 Author Organization [facility] Address [address] [place], [place] [address]. [place] [address] Care Team Providers Name Role Phone Gricel Carmona [place] Primary Care Provider Encounter Details Date Type Department Care Team Description 04/26/2012 Anesthesia Event [facility] Poli Segura, Birthjoseph AGUILA [address] [place], [place] ANESTHESIA [id number] [facility] [phone] [address] [place], [place] [address] (Wo rk) Anesthesia Record Procedure Summary Procedure Name Responsible Anesthesiologist Anesthesia Start Ti me Anesthesia Stop Time Anish Beckham MD 04/26/12 0343 04/26/12 0354 Events Date Time Event Comment 04/26/2012 0343 An Start 0354 An Stop Name Total bupivacaine 0.25% 10 mL Agents No agents on file. Blood No blood administrations on file. Lines, Drains, and Airways Type Details Placement Removal Incision/Surgical Site 04/23/11; 1047; 04/23/11 1047 by 04/28/12 0843 by Abdomen (port sites); [facility], 04/28/12; 0843 RN Peripheral IV 04/25/12; 2226; 18 G; 04/25/12 2226 by 04/26/12 2032 by Right; Lower forearm; Yolanda Jones Vaishnavi B, Chlorhexidine; None; M, RN RN Tolerated well Epidural Catheter 04/26/12; 0349; n 04/26/12 0349 by 04/26/12 11 50 by LEELA grande; Tip intact Anish Segura Marek, Natasha MD Marie, RN documented in this encounter Social History Tobacco [...] on file documented as of this encounter OR Notes Anesthesia Procedure Notes - Anish Segura MD - 04/26/2012 3:59 AM PUBLIC ACCOUNTANT Associated Order(s): ANE EPIDURAL BLOCK Pre-Procedure Performed by: Col[place] Location: OB Preanesthetic checklist: patient identified, IV checked, site marked, risks and benefits discussed, informed consent, monitors and equipment checked, pre-op evaluation, at physician/surgeon's request and post-op pain management Timeout Correct Patient: Yes Correct Procedure: Yes Correct Site: Yes Correct Laterality: Yes Correct Position: Yes Site Marked: Yes Procedure Procedure: LORT saline, epidural catheter (midline approach) Insertion site: L3- 4. LUIS E at 5 cm Position: sitting Prep: povidone-iodine 7.5% surgical scrub, patient draped, mask and sterile gloves Local skin infiltrated with mL of 1% lidocaine. Needle: Touhy needle (17 G, 3.5 in). # of attempts: 1. # of redirects:. Spinal Needle: (). Catheter: 19 G . . to 12 cm at skin and threaded 7 cm in epidural space. Assessment/Narrative Paresthesia's: No. Aspiration negative for heme or CSF Test dose of 3 mL lidocaine 1.5% w/ 1:200,000 epinephrine at 03:49. Test dose negative for signs of intravascular, subdural or intrathecal injection. IC ACCOUNTANT Anesthesia Preprocedure Evaluation - Anish Segura MD - 04/26/2012 3:57 AM CST Anesthesia Evaluation history and physical reviewed . History of anesthetic complications ROS/MED HX Pulmonary: - neg pulmonary ROS Neurologic: - neg neurologic ROS Cardiovascular: - neg cardiovascular ROS METS/Exercise Tolerance: Hematologic: Musculoskeletal: GI/Hepatic: - neg GI/hepatic ROS Renal: Endo: Psychiatric: Infectious Disease: Other: Physical Exam Normal systems: cardiovascular, pulmonary and dental Airway Mallampati: II TM distance: > 3 FB Neck ROM: full Mouth opening: > 3 cm Dental Cardiovascular Pulmonary OB - neg OB ROS Anesthesia Plan ASA Score 2 . Plan for epidural Anesthetic plan, risks, benefits and alternatives discussed with: patient. History & Physical Review . IC ACCOUNTANT documented in this encounter Plan of Treatment Not on filedocumented as of this encounter Procedures Procedure Name Priority Date/Time Associated Diagnosis Comme nts ANE EPIDURAL BLOCK Routine 04/26/2012 3:59 AM Res ults for this PUBLIC ACCOUNTANT procedure are i n the results section. documented in this encounter Results Epidural Block (04/26/2012 3:59 AM PUBLIC ACCOUNTANT) Narrative Anish Segura MD - 04/26/2012 3:59 AM PUBLIC ACCOUNTANT Anish Segura ? 04/26/2012 ??3:59 AM Pre-Procedure Performed by: Colton Location: OB Preanesthetic checklist: patient identif ied, IV checked, site marked, risks and benefits discussed, in formed consent, monitors and equipment checked, pre-op evaluation , at physician/surgeon's request and post-op pain management Timeout Correct Patient: Yes Correct Procedure: Yes Correct Site: Yes Correct Laterality: Yes Correct Position: Yes Site Marked: Yes Procedure Procedure: LORT saline, epidural cathete r (midline approach) ?? Insertion site: L3-4. LUIS E at 5 cm Position: sitting Prep: povidone-iodine 7.5% surgical scru b, patient draped, mask and sterile gloves Local skin infiltrated with mL of 1% lid ocaine. Needle: Touhy needle (17 G, 3.5 in). # o f attempts: 1. # of redirects:. Spinal Needle: (). Catheter: 19 G . . ??to 12 cm at skin a nd threaded 7 cm in epidural space. Assessment/Narrative Paresthesia's: No. Aspiration negative f or heme or CSF Test dose of 3 mL lidocaine 1.5% w/ 1:20 0,000 epinephrine at 03:49. Test dose negative for signs of intravas cular, subdural or intrathecal injection. Procedure Note Anish Segura MD - 04/26/2012 3:59 AM CST Pre-Procedure Performed by: Col[place] Location: OB Preanesthetic checklist: patient identif ied, IV checked, site marked, risks and benefits discussed, informed consent, monitors and equipment checked, pre-op evaluation, at physician/surgeon's request and post-op pain management Timeout Correct Patient: Yes Correct Procedure: Yes Correct Site: Yes Correct Laterality: Yes Correct Position: Yes Site Marked: Yes Procedure Procedure: LORT saline, epidural cathete r (midline approach) Insertion site: L3- 4. LUIS E at 5 cm Position: sitting Prep: povidone-iodine 7.5% surgical scru b, patient draped, mask and sterile gloves Local skin infiltrated with mL of 1% lid ocaine. Needle: Touhy needle (17 G, 3.5 in). # o f attempts: 1. # of redirects:. Spinal Needle: (). Catheter: 19 G . . to 12 cm at skin and threaded 7 cm in epidural space. Assessment/Narrative Paresthesia's: No. Aspiration negative f or heme or CSF Test dose of 3 mL lidocaine 1.5% w/ 1:20 0,000 epinephrine at 03:49. Test dose negative for signs of intravas cular, subdural or intrathecal injection. Anish Segura MD [place] ANESTHESIA documented in this encounter Visit Diagnoses Not on filedocumented in this encounter Administered Medications Inactive Administered Medications - up to 3 most recent administrations Medication Order MAR Action Action Date Dose Rate Site bupivacaine (MARCAINE) 0.25 % Given 04/26/2012 3:53 AM PUBLIC ACCOUNTANT 10 mL s injection EPIDURAL, PRN, Starting on 04/26/12 at 0349, Anesthesia Intra-op documented in this encounter Care Teams Gem Carver Relationship Specialty Start Date End Date Ghanshyam Hassan PCP - General 04/08/12 11/14/[id number] [place] [id number] documented as of this encounter
--- OUTSIDE RECORDS SUMMARY | 2022-03-23 17:27 | XMS_ITS | Encounter Summary ---
:1980 Author Organization [facility] Address [address] [place] [id number] Care Team Providers Name Role Phone Ghanshyam Hassan Primary Care Provider [phone] Reason for Visit Reason Comments Nausea, Vomiting, & Diarrhea Brought to L and D by car t at 1510 to 408 Auth/Cert - Closed Specialty Diagnoses / Procedures Referred By Contact Refer red To Contact project manager senior Diagnoses Gastroenteritis, acute Rh Labor And Delivery [address] [place], [place] [address] Phone: Fax: Referral ID Status Reason Start Date Expiration Date Visits Requ ested Visits Authorized [id number] Closed 1 1 Encounter Details Date Type Department Care Team Description 04/08/2012 Emergency [facility] Allen Amaya Ismael roenteritis, [facility] MD Kiran acute (Primary Dx) [address] [place], [place] [id number] [phone] Social History Tobacco Use Types Packs/Day Years [...] Sign Reading Time Taken Comments Blood Pressure 83/40 04/08/2012 3:36 PM NIPPLE MAKER Pulse 101 04/08/2012 3:36 PM NIPPLE MAKER Temperature 37.7 ??C (99.9 ??F) 04/08/2012 3:00 PM NIPPLE MAKER Respiratory Rate 22 04/08/2012 3:00 PM NIPPLE MAKER Oxygen Saturation 97% 04/08/2012 1:00 PM NIPPLE MAKER Inhaled Oxygen Concentration - - Weight 90.7 kg (200 lb) 04/08/2012 3:00 PM NIPPLE MAKER Height 167.6 cm (5' 6) 04/08/2012 3:00 PM NIPPLE MAKER Body Mass Index 32.28 04/08/2012 3:00 PM NIPPLE MAKER documented in this encounter Discharge Instructions Discharge InstructionsAlisha Bobby RN - 04/08/2012 5:24 PM CST [facility] Discharge Instructions for Undelivered Patients Diet: * Drink 8 to 12 glasses of liquids (milk, juice, water) every day * You may eat meals and snacks. Activity: * Rest the pelvic area. No sex. Do not stimulate breasts or nipples. * Stay on bed rest or partial bed rest. * Count kicks every day (see handout). * Call your doctor or nurse wood carver hand if your baby is moving less than usual. Call your provider if you notice: * Swelling in your face or increased swelling in your hands or legs. * Headaches that are not relieved by Tylenol (acetaminophen). * Changes in your vision (blurring; seeing spots or stars). * Nausea (sick to your stomach) and vomiting (throwing up). * Weight gain of 5 pounds per week. * Heartburn that doesn't go away. * Signs of bladder infection: Pain when you urinate (use the toilet), needing to go more often or more urgently. * The bag of mathias (membrane) breaks, or you notice leaking in your underwear. * Bright red blood in your underwear. * Abdominal (lower belly) or stomach pain. * Second (plus) baby: Contractions (tightenings) less than 10 minutes apart and getting stronger. * Increase or change in vaginal discharge (note the color and amount). LE MAKER documented in this encounter Medications at Time of Discharge Medication Sig Dispensed Refills Start Date End Date acetaminophen (TYLENOL) Take 2 tablets by 250 tablet 1 11/0304/19/2013 325 MG mouth every 4 hours tabletIndications: as needed. Headache(784.0) HYDROcodone-acetaminophe Take 1 tablet by 0 04/19/2013 n 10-325 MG per mouth every 6 hours tabletIndications: as needed. 1-2 Moderate to Moderately tablets as needed Severe Pain Indications: Moderate to Moderately Severe Pain ibuprofen (ADVIL,MOTRIN) Take 1-2 tablets by 30 tablet 0 04/19/2013 400-800 mg mouth every 6 hours tabletIndications: as needed Vaginal delivery (cramping). oxyCODONE (ROXICODONE) 5 Take 1-2 tablets by 30 tablet 0 04/19/2013 MG immediate release mouth every 3 hours tabletIndications: as needed. Vaginal delivery oxyCODONE-acetaminophen Take 1-2 tablets by 20 tablet 0 01/201204/19/2013 (PERCOCET) 5-325 MG per mouth every 6 hours tablet as needed for pain. Vit-Fe Take 1 tablet by 0 09/2013 Fumarate-FA ( mouth daily. MULTIVITAMIN PLUS IRON) 27-0.8 MG TABS documented as of this encounter H&P Notes Allen Amaya MD - 04/08/2012 4:18 PM CST LE MAKER documented in this encounter ED Notes Vi Deluna RN - 04/08/2012 3:00 PM CST Pt was having abdominal cramping. L&D called. Pt to transfer to labor and delivery. Pt went up with 3rd liter of normal Saline. LE MAKER Vida Hightower RN - 04/08/2012 2:31 PM CST Pt is here from home a G2, P1 at 36 weeks with complaints of Nausea and vomiting since lastnight. Patient states she is nikki more than usual. Placed patient on the external potable monitor and obtained a FHR at 125 bpm with accelerations. Contractions palpated and monitored at 2-3 minutes apart lasting 30-[address] Lamine Amaya. LE MAKER Vi Deluna RN - 04/08/2012 12:00 PM CST Pt came in with nausea/vomiting Unable to keep anything down since last night. Pt feeling better after zofran but has a [place] 11/21. Will give morphine. LE MAKER Carisa Joe MD - 04/08/2012 11:46 AM CST History Chief Complaint: Nausea, vomiting, and diarrhea HPI Lacey Nolasco is a , 34 year old female, currently 36 weeks , who presents with nausea, vomiting and diarrhea. The patient states she was feeling fine all day yesterday but at 1030 last night she woke up and had vomiting and diarrhea throughout the night. She explains these same 24 hoursymptoms occurred and she had to go to urgent care to stop her symptoms. Here in the emergency department the patient states she has a giant headache. The patient denies fever, cough, shortness of breath, chest pain, abdominal pain, rash, back pain, vaginal discharge or bleeding, dysuria, difficultyurinating, dizziness, headache or lightheadedness. Allergies: Ambien-blacks out but doesn't fall asleep Medications: Vicodin Percocet MVI Tylenol Past Medical History: Complication of anesthesia Past Surgical History: Tonsillectomy Fulguration of endometriosis-2012 Neck surgery-2010 Family History: No family history Marital Status: Social History: The patient has never smoked and occasionally drinks alcohol. Review of Systems Constitutional: Negative for fever. Respiratory: Negative for cough and shortness of breath. Cardiovascular: Negative for chest pain. Gastrointestinal: Positive for nausea, vomiting and diarrhea. Negative for abdominal pain. Genitourinary: Negative for dysuria, vaginal bleeding, vaginal discharge and difficulty urinating. Musculoskeletal: Negative for back pain. Skin: Negative for rash. Neurological: Negative for dizziness, light-headedness and headaches. All other systems reviewed and are negative. Physical Exam First Vitals: BP: 94/63 mmHg Pulse: 122 Resp: 18 SpO2: 98 % Physical Exam Constitutional: She appears well-developed and well-nourished. HENT: Head: Normocephalic and atraumatic. Right Ear: External ear normal. Left Ear: External ear normal. Mouth/Throat: No oropharyngeal exudate. Slightly dry mucus membranes Eyes: Conjunctivae are normal. Pupils are equal, round, and reactive to light. No scleral icterus. Neck: Normal range of motion. Neck supple. Cardiovascular: Normal rate, regular rhythm, normal heart sounds and intact distal pulses. No murmur heard. Pulmonary/Chest: Effort normal and breath sounds normal. No respiratory distress. Abdominal: Soft. Bowel sounds are normal. She exhibits no distension. There is no tenderness. Gravid uterus at below the xiphoid, nontender to palpation Musculoskeletal: She exhibits no edema. Lymphadenopathy: She has no cervical adenopathy. Neurological: She is alert. Skin: Skin is warm and dry. No rash noted. Psychiatric: She has a normal mood and affect. Emergency Department Course Laboratory: BMP: Calcium 7.9 low, o/w WNL(Creatinine 0.59) UA: pending Interventions: Sodium chloride 0.9% 1,000 mL IV (includes bolus + continuous drip) Zofran 4 mg IV x 2 Phenergan 25 mg IV Emergency Department Course: I examined the patient and discussed a plan of care. IV inserted and blood drawn. The patient was placed on continuous cardiac monitoring and pulse oximetry. Labor and Delivery nurse was called to monitor the patient as she began having contractions while here in the emergency department. I spoke to Dr. Amaya of OB, regarding treatment for the patient. Rechecked the patient, findings and plan explained to the patient, who consents to admission to Labor and Delivery. Discussed the patient with Dr. Amaya, who will admit the patient to a monitored bed for further observation, evaluation, and treatment. Impression & Plan Medical Decision Making: Lacey Nolasco is a 32 year old female who is , under the care of Dr. Amaya. She comes in withwhat sounds like gastroenteritis that apparently started after eating pizza. She had no fever or real abdominal cramping when I examined her. She does appear to be dehydrated from her continuous vomiting and diarrhea overnight. After 2 liters of fluid and Zofran she reports she feels that her abdominal cramping has changed to more of a contraction type feeling. She states these are different from herBraxton Prajapati that she normally gets. Because of that, we asked L and D nurse to come down and monitor her with monitoring. They do report contractions every 2-3 minutes, lasting about 30-[address] Amaya, her OB physician immediately and reported the symptoms to him. He is requesting she be transferred to L and D for further monitoring. I spoke with the patient regarding the planand she is in agreement. She will be transferred to L & D with L & D nurse for further evaluation. Diagnosis: 1. Gastroenteritis, acute. 2. Contractions in a 36 week OB patient. I, Hiwot Wilson, am serving as a Scribe on 04/08/2012 at 11:46 AM to personally document the services performed by Dr. Joe based upon my observations and the provider's statements to me. Magi Vaughn 04/08/2012 [facility] EMERGENCY DEPARTMENT Carisa Joe MD 04/08/12 1527 LE MAKER Rosemary Solorio RN - 04/08/2012 11:09 AM CST N/V/D today. 36 weeks preg. Denies abd pain, back pain. LE MAKER documented in this encounter Miscellaneous Notes Plan of Care - Alisha Bobby RN - 04/08/2012 6:00 PM CST Problem: IP GENERAL POC-ADULT,OB,BEHAVIORAL FVCPM Goal: Individualization/Patient-Specific Goal (Adult,OB,Behavioral The patient and/or their sales representative cash registers will achieve their patient-specific goals related to the plan of care. The patient-specific goals include: Data: [facility]. Reason for maternal/ assessment per patient is Nausea, Vomiting, & Diarrhea . Patient is a . record reviewed. Obstetric History T1 TAB0 SAB0 E0 M0 L1 Name of Baby 1 Not recorded ??? Outcome Date Not recorded GA Not recorded ??? Delivery Type Not recorded ??? at 1 min. Not recorded at 5 min. Not recorded ??? Living Not recorded Name of Baby 2 Not recorded ??? Outcome Date Not recorded GA Not recorded ??? Delivery Type Not recorded ??? at 1 min. Not recorded at 5 min. Not recorded ??? Living Not recorded Medical History: Past Medical History Diagnosis Date ??? Complication of anesthesia severe nausea . Gestational Age 36w3d. VSS. Cervix: closed. movement present. Patient denies cramping, backache, vaginal discharge, pelvic pressure, UTI symptoms, GI problems, bloody show, vaginal bleeding, edema, headache, visual disturbances, epigastric or URQ pain, abdominal pain, rupture of membranes. Support persons present. Action: Verbal consent for EFM. Triage assessment completed. EFM applied for wellbeing d/t N/V, ctx's. Uterine assessment occas ctx's now. assessment: Presumed adequate oxygenation documented (see flow record).Patient instructed to report change in movement, vaginal leaking of fluid or bleeding, abdominal pain, or any concerns related to the to her nurse/physician. Response: Dr. Amaya informed of status. Plan per provider is d/c. Patient verbalized understanding of education and verbalized agreement with plan. Discharged ambulatory at 1800. IV hydration for 3 hours. IV start time: 1500 IV stop time: 1800 Face to face time: > 60 minutes LE MAKER Plan of Care - Alisha Bobby RN - 04/08/2012 5:14 PM CST Problem: IP GENERAL POC-ADULT,OB,BEHAVIORAL FVCPM Goal: Individualization/Patient-Specific Goal (Adult,OB,Behavioral The patient and/or their sales representative cash registers will achieve their patient-specific goals related to the plan of care. The patient-specific goals include: After talking with Dr. Amaya, reglan and fentanyl given. Patient states feeling much better. Occas short variables, Dr. Amaya aware and OK to d/c home when patient able. LE MAKER Plan of Care - Alisha Bobby RN - 04/08/2012 3:40 PM CST Problem: IP GENERAL POC-ADULT,OB,BEHAVIORAL FVCPM Goal: Individualization/Patient-Specific Goal (Adult,OB,Behavioral The patient and/or their sales representative cash registers will achieve their patient-specific goals related to the plan of care. The patient-specific goals include: Report rcvd- assumed care LE MAKER documented in this encounter Plan of Treatment Not on filedocumented as of this encounter Procedures Procedure Name Priority Date/Time Associated Diagnosis Comme nts BASIC METABOLIC STAT 04/08/2012 1:23 PM Result s for this PANEL NIPPLE MAKER procedure are i n the results section. HIM PROCEDURE SCAN Routine 04/08/2012 documented in this encounter Results (ABNORMAL) Basic metabolic panel (04/08/2012 1:23 PM NIPPLE MAKER) athologist Signature Sodium 133 133 - 144 [facility] mmol/L [facility] Potassium 3.8 3.4 - 5.3 [facility] mmol/L [facility] Chloride 106 94 - 109 [facility] mmol/L [facility] Carbon Dioxide 20 20 - 32 [facility] mmol/L [facility] Anion Gap 6 6 - 17 [facility] mmol/L [facility] Glucose 64 60 - 99 [facility] mg/dL [facility] Urea Nitrogen 10 5 - 24 [facility] mg/dL [facility] Creatinine 0.59 0.52 - [facility] 1.04 mg/dL [facility] GFR Estimate >90 >60 [facility] mL/min/1.7 [facility] m2 [facility] GFR Estimate If >90 >60 [facility] Black mL/min/1.7 [facility] m2 [facility] Calcium 7.9 (L) 8.5 - 10.4 [facility] mg/dL [facility] Specimen Anatomical Collection Method Collection Time Receive d Time (Source) Location / / Volume Laterality Blood specimen 04/08/2012 1:23 PM 012 1:27 (specimen) NIPPLE MAKER PM NIPPLE MAKER Carisa Joe MD LAB - BLOOD ORDERABLES Performing Organization Address City/State/ZIP Code Phon e Number [facility] [address] [place], [place] [address] [facility] NON STRESS TEST WELL BEING REPORT - HIM Procedure Scan (04/08/2012) Narrative This result has an attachment that is no t available. Allen Amaya MD PROCEDURES documented in this encounter Visit Diagnoses Diagnosis Gastroenteritis, acute - Primary Other and unspecified noninfectious ismael roenteritis and colitis Uterine contractions or other obstetric complaints Reserved for inherently not codable conc epts WITHOUT codable children documented in this encounter Administered Medications Inactive Administered Medications - up to 3 most recent administrations Medication Order MAR Action Action Date Dose Rate Site 0.9 % sodium chloride IV New Bag 04/08/2012 2:45 PM NIPPLE MAKER 1,000 mLs 125 mL/hr solution at 125 mL/hr, Intravenous, CONTINUOUS, Administer after the boluses., Starting on Fri04/08/12 at 1200, Until Fri04/08/12 at 2003 fentaNYL (SUBLIMAZE) 0.05 MG/ML injectio n Starting on Fri04/08/12 at 1647, For 1 dose, ZEINA BOBBY: cabinet override fentaNYL (SUBLIMAZE) injection 100 mcg Given 04/08/2012 4:47 PM NIPPLE MAKER 100 mcg 100 mcg, Intravenous, ONCE, On Fri04/08/12 at 1645, For 1 dose lactated ringers infusion New Bag 04/08/2012 3:42 PM NIPPLE MAKER 1,000 mLs 500 mL/hr at 500 mL/hr, Intravenous, CONTINUOUS, Starting on Fri04/08/12 at 1545, Until Fri04/08/12 at 2003 metoclopramide (REGLAN) injection 10 mg Given 04/08/2012 4:35 PM NIPPLE MAKER 10 mg 10 mg, Intravenous, EVERY 6 HOURS, First dose on Fri04/08/12 at 1630, Avoid use if patient has full bowel obstruction or perforation. ondansetron (ZOFRAN) 2 MG/ML injection Starting on Fri04/08/12 at 1139, For 1 dose, APRIL GUNN: cabinet override ondansetron (ZOFRAN) injection 4 mg Given 04/08/2012 11:37 AM NIPPLE MAKER 4 mg 4 mg, Intravenous, ONCE, Administer over 2-5 Minutes, On Fri04/08/12 at 1145, For 1 dose ondansetron (ZOFRAN) injection 4 mg Given 04/08/2012 1:57 PM NIPPLE MAKER 4 mg 4 mg, Intravenous, EVERY 30 MIN PRN, nausea, vomiting, Administer over 2-5 Minutes, Starting on Fri04/08/12 at 1151, For 3 doses, May repeat in 30 minutes as needed, up to 3 doses. promethazine (PHENERGAN) 25 MG/ML inject ion Given 04/08/2012 2:23 PM NIPPLE MAKER 25 mg Starting on Fri04/08/12 at 1423, For 1 dose, IAN DELUNA: cabinet override sodium chloride 0.9 % BOLUS New Bag 04/08/2012 11:18 AM NIPPLE MAKER 1, 000 mLs 1000 mL/hr 1,000 mL Intravenous, 1,000 mL, ONCE, at 1,000 mL/hr, Administer over 1 Hours, On Fri04/08/12 at 1130, For 1 dose sodium chloride 0.9 % BOLUS New Bag 04/08/2012 12:00 PM NIPPLE MAKER 1, 000 mLs 1000 mL/hr 1,000 mL Intravenous, 1,000 mL, ONCE, at 1,000 mL/hr, Administer over 1 Hours, On Fri04/08/12 at 1200, For 1 dose sodium chloride 0.9 % BOLUS New Bag 04/08/2012 1:30 PM NIPPLE MAKER 1,000 m Ls 1000 mL/hr 1,000 mL Intravenous, 1,000 mL, ONCE, at 1,000 mL/hr, Administer over 1 Hours, On Fri04/08/12 at 1200, For 1 dose documented in this encounter Active and Recently Administered Medications Times are shown in NIPPLE MAKER. Scheduled Medication Order 04/06/2012 04/07/2012 04/08/2012 fentaNYL (SUBLIMAZE) injection 100 mcg (COMPLETED) 1647 (Given - Provider: Alisha Bobby RN) 100 mcg, Intravenous, ONCE, Fri04/08/12 at 1645, For 1 dose metoclopramide (REGLAN) injection 10 mg (CANCELED) 1635 (Given - Provider: Alisha Bobby, RN) 10 mg, Intravenous, EVERY 6 HOURS, First dose on Fri04/08/12 at 1630, Avoid use if patient has full bowel obstruction or perforation. ondansetron (ZOFRAN) injection 4 mg (COMPLETED) 1137 (Given - Provider: Vi Deluna RN) 4 mg, Intravenous, ONCE, for 2 Minutes, Fri04/08/12 at 1145, Fo r 1 dose sodium chloride 0.9 % BOLUS 1,000 mL (COMPLETED) 1118 (New Bag - Provider: Rosemary Solorio, LEELA)1305 (Stopped - Provider: Vi Deluna, LEELA) Intravenous, 1,000 mL, ONCE, at 1,000 mL /hr, for 1 Hours, Fri04/08/12 at 1130, For 1 dose sodium chloride 0.9 % BOLUS 1,000 mL (COMPLETED) 1200 (New Bag - Provider: Vi Deluna, LEELA)1330 (Stopped - Provider: Vi Deluna, LEELA) Intravenous, 1,000 mL, ONCE, at 1,000 mL /hr, for 1 Hours, Fri04/08/12 at 1200, For 1 dose sodium chloride 0.9 % BOLUS 1,000 mL (COMPLETED) 1330 (New Bag - Provider: Vi Deluna, LEELA)1500 (Stopped - Provider: Vi Deluna, LEELA) Intravenous, 1,000 mL, ONCE, at 1,000 mL /hr, for 1 Hours, Fri04/08/12 at 1200, For 1 dose Continuous Medication Order 04/06/2012 04/07/2012 04/08/2012 0.9 % sodium chloride IV solution (CANCELED) 1445 (New Bag - Provider: Vi Deluna RN) at 125 mL/hr, Intravenous, CONTINUOUS, Administer after the bolu ses. lactated ringers infusion (CANCELED) 1542 (New Bag - Provider: Alisha Bobby, RN) at 500 mL/hr, Intravenous, CONTINUOUS PRN Medication Order 04/06/2012 04/07/2012 04/08/2012 ondansetron (ZOFRAN) injection 4 mg (CANCELED) 1357 (Given - Provider: Vi Deluna, RN) 4 mg, Intravenous, EVERY 30 MIN PRN, cinthia sea, vomiting, for 2 Minutes, Starting Fri04/08/12 at 1151, For 3 doses, May repeat in 30 minutes as needed, up to 3 doses. No Frequency Medication Order 04/06/2012 04/07/2012 04/08/2012 promethazine (PHENERGAN) 25 MG/ML injection (COMPLETED) 1423 (Given - Provider: Vi Deluna, RN) Starting Fri04/08/12 at 1423, For 1 dose, IAN DELUNA: perla et sabrina documented in this encounter Care Teams Optician Apprentice Relationship Specialty Start Date End Date Ghanshyam Hassan PCP - General 04/08/12 11/14/[id number] [place] [address] documented as of this encounter
--- OUTSIDE RECORDS SUMMARY | 2022-03-23 17:27 | XMS_ITS | Encounter Summary ---
:1980 Author Organization [place] Address [facility] [place] [address] Care Team Providers Name Role Phone Ghanshyam Hassan Primary Care Provider [phone] Reason for Visit Auth/Cert - Closed Specialty Diagnoses / Procedures Referred By Contact Refer red To Contact Surgery Diagnoses Menorrhagia, Dysmenorrhea, Endometrosis Rh Periop Serv ices Procedures COMBINED DILATION AND CURETTAGE SUCTION, ABLATE ENDOMETRIUM NOVASURE [address] [place], [place] [address] Phone: Fax: Referral ID Status Reason Start Date Expiration Date Visits Requ ested Visits Authorized [id number] Closed 1 1 Encounter Details Date Type Department Care Team Description 04/27/2013 Anesthesia Event [facility] Poli Segura, PeriOp Services [address] [place], [place] ANESTHESIA [phone] [facility] [phone] 20 [place], [place] [address] (Wo rk) Anesthesia Record Procedure Summary Procedure Name Responsible Anesthesia Start Anesthesia Stop Anesthesiologist Time Time COMBINED Anish Leonard MD 04/27/13 0847 0928 CURETTAGE SUCTION, ABLATE ENDOMETRIUM NOVASURE (Vagina) Events Date Time Event Comment 04/27/2013 0809 0847 An Start 0850 An Start Data 0854 An Induction 0854 AN START SEVO 0856 An LMA 0857 Present 0900 an power now 0909 AN END SEVO 0919 an stop data 0928 An Stop Electronically s igned by Neymar Norman on April 27, 2013 9:28 AM Name Total midazolam 1 mg/mL 2 mg lidocaine 1% 30 mg propofol 10 mg/mL 200 mg ondansetron 2 mg/mL 4 mg ketorolac 30 mg/mL 30 mg propofol infusion (mcg/kg/min) 150 mg LR 700 mL Agents Name O2 Air Exp Sevoflurane Blood No blood administrations on file. Lines, Drains, and Airways Type Details Placement Removal Incision/Surgical Site 04/27/13; Vagina; 04/27/13 0000 by 2151 by 03/23/18; 2151 Lexi Guardado Kylie, RN Marie, LEELA Peripheral IV 04/27/13; 0856; 18 G; 04/27/13 0856 by 04/27/13 1329 by Left, Medial; Hand; Neymar Norman, Elba L, Metacarpal vein (top CARLITOS Hidalgo CRNA RN of hand); Chlorhexidine; Injectable; Tolerated well Retired Non-Surgical 04/27/13; 0856; 4; mm; 04/27/13 0856 by 0919 by Airway laryngeal mask airway; Neymar Norman Ronald Equal clear and CARLITOS Hidalgo CRNA, APRN CRNA bilateral; rons; End of therapy documented in this encounter Social History Tobacco [...] encounter OR Notes Anesthesia Postprocedure Evaluation - Anish Segura MD - 04/27/2013 3:41 PM CST Anesthesia Post-Evaluation Note Patient: Lacey Nolasco Patient location: PACU Procedure(s) Performed: Procedure(s) with comments: COMBINED DILATION AND CURETTAGE SUCTION, ABLATE ENDOMETRIUM NOVASURE - COMBINED DILATION AND CURETTAGE SUCTION, ABLATE ENDOMETRIUM NOVASURE Anesthesia type: General, LMA Post Op Diagnosis: s/p endometrial ablation. Post Op Diagnosis Additional Comments:Menorrhagia, dysmenorrhea. Patient Condition Respiratory Function (RR / SpO2 / Airway Patency): Satisfactory Cardiac Function (HR / Rhythm / BP): Satisfactory Mental Status: Satisfactory Temperature: Satisfactory Pain Control: Satisfactory PONV: None Beta-Patti Therapy: None indicated Hydration Status: Satisfactory Last Vitals: Filed Vitals: 04/27/13 1137 04/27/13 1256 04/27/13 1300 BP: 109/65 Temp: Resp: 16 16 SpO2: 99% 98% Additional Comments: CTOR FUNERAL Anesthesia Preprocedure Evaluation - Anish Segura MD - 04/27/2013 8:34 AM CST Anesthesia Evaluation . Pt has had prior anesthetic. History of anesthetic complications PONV ROS/MED HX ENT/Pulmonary: (+), recent URI sore throat this am; afebrile, no cough: . . Neurologic: - neg neurologic ROS Cardiovascular: - neg cardiovascular ROS METS/Exercise Tolerance: Hematologic: - neg hematologic ROS Musculoskeletal: - neg musculoskeletal ROS GI/Hepatic: - neg GI/hepatic ROS Renal/Genitourinary: - ROS Renal section negative Endo: - neg endo ROS Psychiatric: - neg psychiatric ROS Infectious Disease: - neg infectious disease ROS Malignancy: Other: - neg other ROS Physical Exam Normal systems: cardiovascular, pulmonary and dental Airway Mallampati: II TM distance: >3 FB Neck ROM: full Dental Cardiovascular Pulmonary Anesthesia Plan ASA Score: 1 . Plan for General and LMA - with Intravenous and Propofol induction.Maintenance will be TIVA. Routine analgesia and antiemetics to be used for post-operative care. Anesthetic plan, risks, benefits and alternatives discussed with: patient or premium representative. History & Physical Review History and physical reviewed; no interval change. . CTOR FUNERAL documented in this encounter Miscellaneous Notes Anesthesia Care Transfer Note - Neymar Norman APRN SPECIMEN ACCESSIONER - 04/27/2013 9:28 AM CST Anesthesia Care Transfer Note Patient: Lacey Nolasco Transferred to: PACU Patient vital signs: stable Airway: none CTOR FUNERAL documented in this encounter Plan of Treatment Not on filedocumented as of this encounter Visit Diagnoses Not on filedocumented in this encounter Administered Medications Inactive Administered Medications - up to 3 most recent administrations Medication Order MAR Action Action Date Dose Rate Site ketorolac (TORADOL) injection Given 04/27/2013 8:45 AM DIRECTOR FUNERAL 30 mg PRN, moderate pain (4-6), Starting on Fri04/27/13 at 0845, Anesthesia Intra-op lactated ringers infusion New Bag 04/27/2013 8:45 AM DIRECTOR FUNERAL mL Intravenous, CONTINUOUS PRN, Anesthesia Intra-op, Starting on Fri04/27/13 at 0845, Until Fri04/27/13 at 0928 lidocaine 1 % injection Given 04/27/2013 8:54 AM DIRECTOR FUNERAL 30 mg PRN, Starting on Fri04/27/13 at 0854, Anesthesia Intra-op midazolam (VERSED) injection Given 04/27/2013 8:47 AM DIRECTOR FUNERAL 2 mg PRN, anxiety, Starting on Fri04/27/13 at 0847, Anesthesia Intra-op ondansetron (ZOFRAN) injection Given 04/27/2013 9:00 AM DIRECTOR FUNERAL 4 mg PRN, nausea, vomiting, Administer over 2-5 Minutes, Starting on Fri04/27/13 at 0900, Anesthesia Intra-op propofol (DIPRIVAN) infusion Rate/Dose 04/27/2013 9:05 100 mcg/kg/min 45 mL/hr Intravenous, CONTINUOUS PRN, Change AM DIRECTOR FUNERAL Starting on Fri04/27/13 at 0855, Range: 5-75mcg/kg/min Titrate by 5-10 mcg/kg/min every 5 minutes., Anesthesia Intra-op New Bag 04/27/2013 8:55 AM DIRECTOR FUNERAL 150 mcg/kg/min 67.5 mL/hr propofol (DIPRIVAN) injection Given 04/27/2013 8:54 AM DIRECTOR FUNERAL 200 mg PRN, Starting on Fri04/27/13 at 0854, Anesthesia Intra-op documented in this encounter Care Teams Operator Vacuum Relationship Specialty Start Date End Date Ghanshyam Hassan PCP - General 04/08/12 11/14/18 [address] [place] [id number] documented as of this encounter
--- OUTSIDE RECORDS SUMMARY | 2022-03-23 17:27 | XMS_ITS | Encounter Summary ---
:1980 Author Organization [place] Address [address] [place] [address]. [place] [address] Care Team Providers Name Role Phone Ghanshyam Hassan Primary Care Provider [phone] Reason for Visit Reason Onset Date Comments Call Back 05/01/2012 Nipple pain more lien erable and milk is in. Other problem is that he has a lot of tumm y aches and screams a lot. Mom is using gas drops, bicycling leg s and several other methods to help. It is not daily, however. Never needed to back to [place]. Mom will call PRN. Encounter Details Date Type Department Care Team Description 05/01/2012 Telephone [facility] [place] Rodriguez, Call Ba ck (Nipple pain [facility] RN more tolerable and milk [address] is in. Other problem is [place], [place] that he has a lot of [phone] tummy aches and screams [phone] a lot. Mom is u sing gas drops, bicyclin g legs and several oth er methods to help . It is not daily, davis simone. Never needed to back to [place]. Mom kari l call PRN.) Social History Tobacco Use Types Packs/Day Years [...] on filedocumented in this encounter Care Teams Superintendent Circus Relationship Specialty Start Date End Date Ghanshyam Hassan PCP - General 04/08/12 11/14/[address] [place] [address] documented as of this encounter
--- OUTSIDE RECORDS SUMMARY | 2022-03-23 17:27 | XMS_ITS | Encounter Summary ---
:1980 Author Organization [place] Address [address] [place] [address] Care Team Providers Name Role Phone Ghanshyam Hassan Primary Care Provider Reason for Visit Reason Comments Back Pain Encounter Details Date Type Department Care Team Description 10/17/2012 Emergency [facility] Neetu Streeter [facility] Emergency Dep felice Pro MD (Primary Dx) [address] [facility] [place], [place] [address] [address] [phone] [place] [address] (Wo rk) Social History Tobacco Use Types [...] Sign Reading Time Taken Comments Blood Pressure 110/71 10/17/2012 10:25 PM CDT Pulse 72 10/17/2012 10:25 PM CDT Temperature 37.6 ??C (99.6 ??F) 10/17/2012 9:12 PM CDT Respiratory Rate 18 10/17/2012 10:25 PM CDT Oxygen Saturation 98% 10/17/2012 10:25 PM CDT Inhaled Oxygen Concentration - - Weight 76.2 kg (168 lb) 10/17/2012 9:12 PM CDT Height 167.6 cm (5' 6) 10/17/2012 9:12 PM CDT Body Mass Index 27.12 10/17/2012 9:12 PM CDT documented in this encounter Discharge Instructions Discharge InstructionsNeetu Streeter MD - 10/17/2012 9:53 PM CDT Discharge Instructions Back Pain You were seen today for back pain. Back pain can have many causes, but most will get better without surgery or other specific treatment. Sometimes there is a herniated (???slipped?? ) disc. We don???t usually do MRI scans to look for these right away, since most herniated discs will get better on their own with time. Today, we did not find any evidence that your back pain was caused by a serious condition, such as an infection, fracture, or tumor. However, sometimes symptoms develop over time and cannot be found during an emergency visit, so it is very important that you follow up with your primarydoctor. Return to the Emergency Department if: You develop a fever with your back pain. You have weakness or change in sensation in one or both legs. You lose control of your bowels or bladder, or can???t empty your bladder. Your pain gets much worse. Follow-up with your doctor: Unless your pain has completely gone away, please make an appointment with your doctor within one week. You may need further management of your back pain, such as more pain medication, imaging such asan X-ray or MRI, or physical therapy. What can I do to help myself? Remain active -- People are often afraid that they will hurt their back further or delay recovery by remaining active, but this is one of the best things you can do for your back. In fact, prolonged bed rest is not recommended. Studies have shown that people with low back pain recover faster when they remain active. Movement helps to bring blood flow to the muscles and relieve muscle spasms as well as preventing loss of muscle strength. Heat -- Using a heating pad can help with low back pain during the first few weeks. Do not sleep with a heating pad, as you can be burned. Pain medications -- Take a pain medication such as, acetaminophen (Tylenol??), ibuprofen (Advil??, Nuprin ??) or naproxen (Aleve??). If you have been given a narcotic (such as codeine, hydrocodone, oroxycodone) or a muscle relaxant (such as Flexeril ?? or Soma ??), do not drive for four hours after you have taken it. If the narcotic contains acetaminophen (Tylenol), do not take Tylenol with it. Allnarcotics will cause constipation, so eat a high fiber diet. Remember that you can always come back to the Emergency Department if you are not able to see your regular doctor in the amount of time listed above, if you get any new symptoms, or if there is anything that worries you. documented in this encounter Medications at Time of Discharge Medication Sig Dispensed Refills Start Date End Date cyclobenzaprine Take 1 tablet by 20 tablet 0 10/17/201203/2013 (FLEXERIL) 10 MG tablet mouth 3 times daily as needed for muscle spasms for 6 days. acetaminophen (TYLENOL) Take 2 tablets by 250 tablet 1 11/0304/19/2013 325 MG tabletIndications: mouth every 4 hours Headache(784.0) as needed. HYDROcodone-acetaminophen Take 1 tablet by 0 04/19/2013 10-325 MG per mouth every 6 hours [...] Vaginal delivery oxyCODONE-acetaminophen Take 1-2 tablets by 30 tablet 0 09/201204/19/2013 (PERCOCET) 5-325 MG per mouth every 4 hours tablet as needed for pain. oxyCODONE-acetaminophen Take 1-2 tablets by 20 tablet 0 01/201204/19/2013 (PERCOCET) 5-325 MG per mouth every 6 hours tablet as needed for pain. Vit-Fe Take 1 tablet by 0 09/2013 Fumarate-FA ( mouth daily. MULTIVITAMIN PLUS IRON) 27-0.8 MG TABS documented as of this encounter ED Notes Neetu Streeter MD - 10/17/2012 10:48 PM CDT CHIEF COMPLAINT: Back pain. HISTORY OF PRESENT ILLNESS: Shamir Nolasco is a healthy 31-year-old female who presents with 3 days of low back pain. She denies any trauma. The back pain started when she was holding her 5-month-old son for a prolonged period of time 3 days ago. Since then it has progressively worsened. She denies any fall or trauma. The pain is located focally in the lower back. It does at times radiate into her left leg but is not currently. She has not had any numbness, tingling or weakness. She denies any loss of bowel or bladder control. There is no back pain or urinary symptoms. She states that the pain is severe and rates it 10/10 on the pain scale. It is worse with movement and ambulation. She has tried ib uprofen at home for pain without relief. The patient does have a history of cervical spine diskectomy though no lumbar back surgeries. She has had no recent illness, fevers, denies drug abuse. PAST MEDICAL HISTORY: No chronic medical problems or daily home medications. PAST SURGICAL HISTORY: Cervical spine surgery for a bulging disk. HOME MEDICATIONS: P.r.n. ibuprofen. SOCIAL HISTORY: The patient is and here with her . She denies drug abuse. REVIEW OF SYSTEMS: A full 10-point review of systems was completed. Pertinent positives are noted inthe HPI. All other systems are reviewed and negative. PHYSICAL EXAMINATION: VITAL SIGNS: Temperature 99.6, pulse 70, respiratory rate 18, blood pressure 118/85, oxygen saturation 98% on room air. GENERAL: Alert, appears to be in pain. CARDIOVASCULAR: Regular rate and rhythm, no murmurs, 2+PT and DP pulses BLE PULMONARY: Clear to auscultation bilaterally. ABDOMEN: Soft, nontender. BACK: No midline tenderness over the thoracic or lumbar spine. No lumbar paraspinous tenderness, no sacral tenderness. No tenderness to palpation of the buttocks or sciatic notch. MUSCULOSKELETAL: Normal range of motion of the joints of the hips, knees and ankles. No lower extremity edema, 2+ DP and PT pulses bilaterally. NEUROLOGIC: 5/5 strength in hip flexion, extension, knee flexion and extension, ankle plantar and dorsiflexion and extension of EHL. Sensation intact to light touch over all dermatomes of the legs. Gait is normal. EMERGENCY DEPARTMENT INTERVENTIONS: Dilaudid 1 mg IM, Percocet 2 tabs p.o. MEDICAL DECISION MAKING: The patient is a 31-year-old female who presents with atraumatic musculoskeletal back pain. This pain started while holding her son and therefore is most likely to be muscle strain. Exam was negative for any evidence of neurovascular compromise. The patient was provided with pain control. I instructed her in symptomatic care and encouraged her to follow up with primary care provider. I encouraged her to seek a physical therapy should her symptoms be persistent. ASSESSMENT: Lumbar strain. PLAN: Ibuprofen, Percocet and Flexeril. Plan for PCP follow up with possible PT referral. NEETU STREETER MD MT: #[id number] Name: SHAMIR NOLASCO MRN: [id number] Account: [id number] : 1980 Visit Date: 10/17/2012 Document: [id number] Manju Matias RN - 10/17/2012 9:38 PM CDT Patient presents to ER with c/o low back pain radiating down left leg. Patient states she was holding her 5 month old child on October 15 and was bent an awkward pain and has had mild pain since. Patientearlier today bent down to pick something up and pain exacerbated. Patient states pain is 10. Ines Maravilla RN - 10/17/2012 9:11 PM CDT Pt Alert and oriented x3. Airway, breathing and circulation intact. On October 15 pt was holding her baby. I was holding him awkwardly Pt c/o low back pain. Pain was going down left leg earlier, but not now. documented in this encounter Plan of Treatment Not on filedocumented as of this encounter Visit Diagnoses Diagnosis Lumbar strain - Primary Sprain of lumbar region documented in this encounter Administered Medications Inactive Administered Medications - up to 3 most recent administrations Medication Order MAR Action Action Date Dose Rate Site cyclobenzaprine (FLEXERIL) tablet Given 10/17/2012 9:52 PM CDT 1 0 mg 10 mg 10 mg, Oral, ONCE, On 10/17/12 at 2200, For 1 dose HYDROmorphone (PF) (DILAUDID) injection 1 mg Given 10/17/2012 9:52 PM CDT 1 mg 1 mg, Intramuscular, ONCE, On 10/17/12 at 2200, For 1 dose ibuprofen (ADVIL,MOTRIN) tablet 600 mg Given 10/17/2012 9:52 PM CDT 600 mg 600 mg, Oral, ONCE, On 10/17/12 at 2200, For 1 dose oxyCODONE-acetaminophen (PERCOCET) 5-325 Given 013 10:26 PM CDT 2 tablets MG per tablet 2 tablet 2 tablet, Oral, ONCE, On 10/17/12 at 2215, For 1 dose, Maximum acetaminophen dose from all sources= 75 mg/kg/day not to exceed 4 grams documented in this encounter Active and Recently Administered Medications Times are shown in CDT. Scheduled Medication Order 10/15/2012 10/16/2012 10/17/2012 cyclobenzaprine (FLEXERIL) tablet 10 mg (COMPLETED) 2151 (Given - Provider: Manju Matias RN) 10 mg, Oral, ONCE, 10/17/12 at 2200, For 1 dose HYDROmorphone (PF) (DILAUDID) injection 1 mg (COMPLETED) 2151 (Given - Provider: Manju Matias RN) 1 mg, Intramuscular, ONCE, 10/17/12 at 2200, For 1 dose ibuprofen (ADVIL,MOTRIN) tablet 600 mg (COMPLETED) 2151 (Given - Provider: Manju Matias RN) 600 mg, Oral, ONCE, 10/17/12 at 2200, For 1 dose oxyCODONE-acetaminophen (PERCOCET) 5-325 MG per tablet 2 tablet (COMPLETED) 2225 (Given - Provider: Manju Matias RN) 2 tablet, Oral, ONCE, 10/17/12 at 2215 , For 1 dose, Maximum acetaminophen dose from all sources= 75 mg/kg/day not to exceed 4 grams documented in this encounter Care Teams Blender Machine Operator Relationship Specialty Start Date End Date Ghanshyam Hassan PCP - General 04/08/12 11/14/18 [address] [place] [id number] documented as of this encounter
--- OUTSIDE RECORDS SUMMARY | 2022-03-23 17:27 | XMS_ITS | Encounter Summary ---
:1980 Author Organization [facility] Address [address] [place] [address] Care Team Providers Name Role Phone Allen Amaya MD Primary Care Provider [phone] Reason for Visit Reason Comments Back Pain Encounter Details Date Type Department Care Team Description 03/14/2012 Hospital Encounter [facility] Am[facility] Birth[facility] MD [place] [address] [place], [place] [phone] Social History Tobacco Use Types Packs/Day Years [...] Sign Reading Time Taken Comments Blood Pressure 116/67 03/14/2012 9:21 PM [employer] TE[employer]ER Pulse 92 03/14/2012 9:21 PM [employer] TE[employer]ER Temperature 36.9 ??C (98.4 ??F) 03/14/2012 9:21 PM MAN[employer]S THER[employer] TE[employer]ER Respiratory Rate 18 03/14/2012 9:21 PM [employer] THER[employer] TE[employer]ER Oxygen Saturation - - Inhaled Oxygen Concentration - - Weight 88.5 kg (195 lb) 03/14/2012 9:21 PM [employer] THER[employer] TE[employer]ER Height 167.6 cm (5' 6) 03/14/2012 9:21 PM 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 Activity * Count kicks every day (see handout). * Call your doctor or nurse oversize load pilot escort if your baby is moving less than [...] vaginal discharge (note the color and amount). Pt encouraged to take her pain medications prescribed at home. Encouraged rest and use of heating pad. Pt discharged home per Dr. Amaya [employer] documented in this encounter Medications at Time [...] encounter H&P Notes Allen Amaya MD - 03/14/2012 8:54 PM CST [employer] documented in this encounter Miscellaneous Notes Plan of Care - Sade Huizar - 03/14/2012 10:53 PM CST 2250: discharge instructions given and reviewed with pt,. Instructed pt to take her pain medicationswhen she gets home tonight.Pt verbalized understanding. FHR reactive, irregular contractions. Pt denies feeling contractions. VSS. No bleeding, no leaking upon discharge. Pt discharged per pt request. Pt was offered pain meds, IV and to be observed and pt refused and requested to be discharged. Pt continues to complain of Right and left mid upper back pain.nontender to palpitation. Discharged home per Dr. Amaya. Face to face time: 45 minutes [employer] Provider Notification - Sade Huizar - 03/14/2012 10:34 PM CST 03/14/12 [id number] Provider Notification Notification Reason Other (Comment) updated. Pt informed of plan of care and pt requesting to be discharged right now. Cervix closed. Orders to dc home now and encourage pt to take her pain meds as prescribed [employer] Provider Notification - Sade Huizar - 03/14/2012 10:21 PM CST 03/14/12 [id number] Provider Notification Notification Reason Patient Arrived;Pain;Patient Request;Status Update Dr. Amaya updated on pt . Pt 32+ weeks known hydronephrosis, pt has been prescribed pain meds but has not taken any today for her complaints of back pain. Pt c/o R&L upper mid back pain, VSS, backnontender to palpitation, rates pain 8/10. UA to lab results not recd yet. Intact, no bleeding, no leaking. Denies feeling contractions. Uterus irritable. FHR reactive. Orders to check cervix, IV fluids, and give 100mg fentanyl now for pain and may dc home if pain subsides [employer] TE[employer] Plan of Care - Sade Huizar - 03/14/2012 9:40 PM CST 2100: Pt sent up from ER to be evaluated for back pain. Pt has a hx of moderate hydronephrosis that was noted on Ultrasound last month. Pt was given a prescription of vicodin and percocet but states that has not helped her much with the pain and she last took some vicodin last evening. Pt rates pain at 8/10. UA to lab. Denies any leaking, bleeding, contractions at this time. Pt complains of mid upperright and left sided back pain. Pt states she feels the pain is worse today than it has been. Triageassessment completed. Will wait for UA results and call alis to obtain orders. FHR reactive. Uterusirritable. joanne contractions [employer] documented in this encounter Plan of Treatment Not on filedocumented as of this encounter Procedures Procedure Name Priority Date/Time Associated Comments Diagnosis ROUTINE UA WITH Routine 03/14/2012 8:25 PM Result s for this MICROSCOPIC [employer]ER procedure are i n the results section. HIM PROCEDURE SCAN Routine 03/14/2012 documented in this encounter Results (ABNORMAL) Routine UA with microscopic (03/14/2012 8:25 PM MANUAL [employer]S THER[employer] TEACHER) [facility] Method Time Signature Color Urine Yellow [facility] Appearance Urine Slightly [place] Cloudy [facility] Glucose Urine 30 (A) NEG mg/dL [facility] Bilirubin Urine Negative NEG [facility] Ketones Urine Negative NEG mg/dL [facility] Specific [place] 1.009 1.003 - [place] Urine 1.035 [facility] Blood Urine Negative NEG [facility] pH Urine 6.5 5.0 - 7.0 [place] pH [facility] Protein Albumin Negative NEG mg/dL [facility] Urobilinogen Normal 0.0 - 2.0 [place] mg/dL mg/dL [facility] Nitrite Urine Negative NEG [facility] Leukocyte Negative NEG [place] Esterase Urine [facility] Source Midstream [facility] WBC Urine 3 (H) 0 - 2 [place] /HPF [facility] RBC Urine 1 0 - 2 [place] /HPF [facility] Bacteria Urine Many (A) NEG /HPF [facility] Squamous 7 (H) 0 - 1 [place] Epithelial /HPF /HPF [facility] Mucous Urine Present (A) NEG /LPF [facility] Specimen Anatomical Collection Method Collection Time Receive d Time (Source) Location / / Volume Laterality Urine specimen URINE SPECIMEN 03/14/2012 8:25 PM 03/14 9:08 (specimen) OBTAINED BY CLEAN [employer]ER PM [employer] TE[employer]ER CATCH PROCEDURE / Unknown Allen Amaya MD LAB - URINE ORDERABLES Performing Organization Address City/State/ZIP Code Phon e Number [facility] [address] [address] [facility] NON STRESS TEST - WELL BEING REPORT - HIM Procedure Scan (03/14/2012) Narrative This result has an attachment that is no t available. Allen Amaya MD PROCEDURES documented in this encounter Visit Diagnoses Not on filedocumented in this encounter Active and Recently Administered Medications Care Teams Human Resources Services Specialist Relationship Specialty Start Date End Date Allen Amaya MD PCP - General auto service instructor 02/23/12 04/07/12 documented as of this encounter
--- OUTSIDE RECORDS SUMMARY | 2022-03-23 17:27 | XMS_ITS | Encounter Summary ---
:1980 Author Organization [facility] Address [address] [place] [address] Care Team Providers Name Role Phone Ghanshyam Hassan Primary Care Provider [phone] Reason for Visit Reason Comments Headache Here with worst headache Pat ient 14 weeks Auth/Cert - Closed Specialty Diagnoses / Procedures Referred By Contact Refer red To Contact Diagnoses Headache(784.0) Second [id number] Rh [facility] [address] [place], [place] [address] Phone: Fax: Referral ID Status Reason Start Date Expiration Date Visits Requ ested Visits Authorized [id number] Closed 11/04/2011 05/02/2012 1 1 Encounter Details Date Type Department Care Team Description 11/03/2011 - Hospital Encounter [facility] Gianni Lee MD [facility] [address] [place] [address] Headache; 11/04/2011 [facility] 5 Medical Duc Tejeda MD [address] [place], [place] [id number] Second Surgical [address] [place] [address] Social History Tobacco Use Types Packs/Day Years [...] Sign Reading Time Taken Comments Blood Pressure 100/57 11/04/2011 7:14 AM CDT Pulse - - Temperature 36.8 ??C (98.2 ??F) 11/04/2011 7:14 AM CDT Respiratory Rate 20 11/04/2011 7:14 AM CDT Oxygen Saturation 96% 11/04/2011 7:14 AM CDT Inhaled Oxygen Concentration - - Weight 83.9 kg (185 lb) 11/04/2011 1:14 AM CDT Height 167.6 cm (5' 6) 11/04/2011 1:14 AM CDT Body Mass Index 29.86 11/04/2011 1:14 AM CDT documented in this encounter Discharge Summaries Jean Pierre Topete MD - 11/04/2011 10:04 AM CDT Discharge Summary Lacey Nolasco Date of : 1980 Age: [age] year old Date of Admission: 11/03/2011 Date of Discharge: 11/04/2011 Admitting Physician: Duc Tejeda MD Discharge Physician: Duc Tejeda MD Discharging Service: Hospitalist Home clinic: [facility] Hassan Primary Provider: Ghanshyam Hassan Admission Diagnoses: HEADACHE [784.0] SECOND [V22.2] 69447 HEAD ACHE 13526 Discharge Diagnosis: Patient Active Problem List Diagnoses ??? Head ache Discharge Disposition: Discharged to home Condition on Discharge: Discharge condition: Stable Discharge vitals: Blood pressure 100/57, temperature 98.2 ??F (36.8 ??C), temperature source Oral, resp. rate 20, height 1.676 m (5' 6), weight 83.915 kg (185 lb), last menstrual period 08/01/2011, SpO2 96.00%. Code status on discharge: Full Code Procedures / Labs / Imaging: Procedures: MRI and MRA of Brain. Medications Prior to Admission: Prescriptions prior to admission Medication Sig Dispense Refill ??? Vit-Fe Fumarate-FA ( MULTIVITAMIN PLUS IRON) 27-0.8 MG TABS Take 1 tablet by mouth daily. ??? doxylamine (UNISOM) 25 MG TABS Take 25 mg by mouth daily as needed. ??? clindamycin (CLINDAMAX) 1 % gel Apply 0.5 inches topically. Once to twice daily ??? benzoyl peroxide (BENZOYL PEROXIDE CREAMY WASH) 4 % LIQD Externally apply topically. Once to twice daily ??? hydrocodone-acetaminophen 5-325 MG per tablet Take 1-2 tablets by mouth every 4 hours as needed for other (Moderate to Severe Pain). 30 tablet 0 Discharge Medications: Current Discharge Medication List Details Vit-Fe Fumarate-FA ( MULTIVITAMIN PLUS IRON) 27-0.8 MG TABS Take 1 tablet by mouth daily. Acetaminophen 325 MG per tablet Take 1-2 tablets by mouth every 6 hours as needed for other Pain). Qty: 30 tablet, Refills: 0 Associated Diagnoses:Headache. Consultations: No consultations were requested during this admission Brief History of Illness: Lacey Nolasco is a 31 year old female who was admitted for intractable headache, please see Dr. Tejeda's H&P dated today. Hospital Course: Patient Active Problem List Diagnoses ??? Head ache Lacey Nolasco is a 31 year old female who presents today for headache. 1. Tension vs migraine headache: She had MRI/MRA of brain in ED which showed normal. No neck stiffness. She feels much better. She has lot of stressors and her recent testing for her , thoughtcardiac defect, but normal chromosomes, further testing pending. Her mother suffers headache. Seems tension vs migraine headache, treat with tylenol prn, rest and 3 days off work. Plan d/c home this afternoon if remains stable. Hx of neck surgery, no neck pain or stiffness. She does not want to see neurologist at this time. 2. 18 weeks gestational , ongoing testing to found out whether her baby has malformation orchromosomal abnormality. So far chromosome testing showed normal as per pt. No records available here. Follow [facility] [employer] team as scheduled. Significant Results: Recent Results (from the past 24 hour(s)) -MRI ANGIOGRAM HEAD W/O CONTRAST IMAGECAST RESULT Value: MRA HEAD W/O CONTRAST* Nov 03, 2011 10:09:00 PM HISTORY: Headaches for 2 weeks with increasing severity. TECHNIQUE: 3D [id number] MR angiography was performed through the [place]. FINDINGS: The distal internal carotid arteries, basilar artery, and proximal anterior, middle, and posterior cerebral arteries are patent. There is no evidence for any large vessel occlusion or stenosis. There is no evidence for a saccular aneurysm. IMPRESSION: Negative MR angiography of the [place]. Preliminary report was given by Dr. Saab. -MRI BRAIN W/O CONTRAST IMAGECAST RESULT Value: MRI BRAIN W-O CONTRAST Nov 03, 2011 10:22:00 PM HISTORY: Headache for 2 weeks with increasing severity. TECHNIQUE: Routine pulse sequences without contrast. FINDINGS: Diffusion-weighted images are normal. The brain parenchyma, brainstem, ventricular system, subarachnoid spaces, and vascular structures are normal in appearance. Specifically, there is no evidence for intracranial hemorrhage, acute infarct, or any focal mass lesions. IMPRESSION: Negative brain and brainstem MRI examination without contrast. Preliminary report was given by Dr. Saab. Pending Results: None Discharge Instructions and Follow-Up: Discharge diet: Regular Discharge activity: Activity as tolerated Discharge follow-up: Follow up PCP in 5 days and follow up with mining technician business sales consultant in as scheduled. Outpatient therapy: None Home Care agency: None Supplies and equipment: None Lines and drains: None Wound care: None Other instructions: Return to PCP if headache worsens. documented in this encounter Medications at Time of Discharge Medication Sig Dispensed Refills Start Date End Date acetaminophen (TYLENOL) Take 2 tablets by 250 tablet 1 11/0304/19/2013 325 MG tabletIndications: mouth every 4 hours Headache(784.0) as needed. Vit-Fe Take 1 tablet by 0 09/2013 Fumarate-FA ( mouth daily. MULTIVITAMIN PLUS IRON) 27-0.8 MG TABS documented as of this encounter H&P Notes Duc Tejeda MD - 11/04/2011 1:34 AM CDT [facility] Hospitalist Admission Note Name: Lacey Nolasco Date of : 1980 Age: [age] year old Date of admission: 11/03/2011 Primary care provider: Ghanshyam Hassan Chief Complaint: Severe headache History is obtained from the patient History of Present Illness: This patient is a 31 year old female without a significant past medical history who presents with the following condition requiring a hospital admission: Headache She complains of a of headache. She does have a headache at this time. Description of Headaches: Location of pain: occipital Radiation of pain?:none Character of pain:pulsating and sharp Severity of pain: 10 Accompanying symptoms: nausea Prodromal sx?: none Rapidity of onset: sudden Typical duration of individual headache: 7 days Are most headaches similar in presentation? no Typical precipitants: stress Temporal Pattern of Headaches: Started having WELLINGTON's 7 days ago Worst time of day: all time Awaken from sleep?: no Seasonal pattern?: no ???Clustering??? of WELLINGTON's over time? no Overall pattern since problem began: gradually worsening Degree of Functional Impairment: severe Current Use of Meds to Treat WELLINGTON: Abortive meds? None Daily use? no Prophylactic meds? none Additional Relevant History: History of head/neck trauma? no History of head/neck surgery? no Family h/o headache problems? no Use of meds that might worsen WELLINGTON's (nitrates, exogenous estrogens, Nifedipine)? no Exposure to carbon monoxide? no Substance use:none No abdominal pain or vision changes Past Medical History: None 14 weeks Past Surgical History: Past Surgical History Procedure Date ??? Tonsillectomy ??? 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 Smoking status: Never Smoker ??? Smokeless tobacco: Not on file ??? Alcohol Use: Yes occas Family History: Negative Allergies: Allergies Allergen Reactions ??? Ambien (Zolpidem Tartrate) blacks out but doesn't fall asleep Medications: Prescriptions prior to admission Medication Sig Dispense Refill ??? hydrocodone-acetaminophen 5-325 MG per tablet Take 1-2 tablets by mouth every 4 hours as needed for other (Moderate to Severe Pain). 30 tablet 0 Review of Systems: A Comprehensive greater than 10 system review of systems was carried out. Pertinent positives and negatives are noted above in HPI. Otherwise negative for contributory information. Physical Exam: Vitals were reviewed Blood pressure 107/65, temperature 97.9 ??F (36.6 ??C), temperature source Oral, resp. rate 20, lastmenstrual period 08/01/2011, SpO2 98.00%. Constitutional: awake, alert and cooperative Eyes: lids and lashes normal, pupils equal, round and reactive to light and extra- ocular muscles intact ENT: normocepalic, without obvious abnormality, atramatic Neck: supple, symmetrical, trachea midline, skin normal and no stridor Lungs: no increased work of breathing, good air exchange, no retractions and clear to auscultation Cardiovascular: normal apical pulses and normal S1 and S2 Abdomen: normal bowel sounds, soft, non-distended and non-tender Musculoskeletal: no lower extremity pitting edema present there is no redness, warmth, or swelling of the joints Neurologic: Mental Status Exam: Level of Alertness: awake Cranial Nerves: cranial nerves II-XII are grossly intact Motor Exam: moves all extremities well and symmetrically Sensory: Sensory intact Neuropsychiatric: General: normal, calm and normal eye contact Level of consciousness: alert / normal Affect: normal Skin: no bruising or bleeding, normal skin color, texture, turgor and no redness, warmth, or swelling Data: All imaging studies reviewed by me. Imaging: No acute findings on MRI/MRA brain No results found for this or any previous visit (from the past 24 hour(s)) Patient`s old medical records reviewed and case discussed with the ED physician. Assessment and Recommendation: Assessment: This patient is a 31 year old female who is 14 weeks and without a significant past medical history who presents with severe headache over the last 7 days.Patient denies h/o migraineheadache,trauma and drug abuse. 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 Pt claims that headache is back to 12/22 rateagain. Updated MD. Elsy Montanez RN - 11/03/2011 9:30 PM CDT Pt at MRI when started getting emotional and claims can't go through procedure and feeling very claustrophobic. updated and order for Benadryl given. Selin Lee MD - 11/03/2011 8:28 PM CDT History Chief Complaint: Headache HPI Lacey Nolasco is a 31 year old female who is 14 weeks who presents with headache. The patient states this is the worst headache of my life. She says the headache began two weeks ago and was slow on onset but has progressively gotten worse over that time period, intolerable since last night. She notes the pain has been constant with intermittent severity. She indicates the pain is located on the bottom left side of the back of her head and radiates diffusely across the entire head. She says pressure to this specific spot exacerbates the pain. She notes she took both tylenol and Vicodinbut both of these have not helped with the pain. She notes mild neck tightness. She indicates this is her second and her first one was normal. She notes mild increased stressors. She denies trauma. She has intermittent headaches in the past but none to this severity or duration. She denies photo- or phonophobia or history of migraine headaches. She has been unable to control the pain with tylenol or a prescription medication that she cannot recall the name of that contains caffeine. The patient denies nausea, vomiting, fevers, chills, diplopia, confusion, weakness, chest pain, vaginal bleeding, vaginal discharge, abdominal pain, photophobia, leg swelling, or any other concerns. 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 Marital Status: Social History: The patient has never been a smoker. She denies alcohol use. The patient is here with her . Review of Systems Constitutional: Negative for fever and chills. HENT: Negative for neck pain and neck stiffness. Eyes: Negative for photophobia and visual disturbance. Respiratory: Negative for shortness of breath. Cardiovascular: Negative for chest pain and leg swelling. Gastrointestinal: Negative for nausea, vomiting and abdominal pain. Genitourinary: Negative for vaginal bleeding and vaginal discharge. Musculoskeletal: Negative for back pain. Neurological: Positive for dizziness and headaches. Negative for weakness. Psychiatric/Behavioral: Negative for confusion. All other systems reviewed and are negative. Physical Exam First Vitals: BP: 115/75 mmHg Heart Rate: 84 Temp: 98.6 ??F (37 ??C) Resp: 18 SpO2: 100 % Physical Exam Constitutional: She is oriented to person, place, and time. Non toxic appearing female sitting upright in a dim room. HENT: Mouth/Throat: Oropharynx is clear and moist. Mild discomfort to palpation of the left occiput. Eyes: Conjunctivae are normal. Pupils are equal, round, and reactive to light. Neck: Muscular tenderness present. Tenderness in the paracervical and trapezial bilaterally. No nuchal rigidity. Cardiovascular: Normal rate, regular rhythm, normal heart sounds and intact distal pulses. Exam reveals no gallop and no friction rub. No murmur heard. Pulmonary/Chest: Effort normal and breath sounds normal. No respiratory distress. She has no wheezes. She has no rales. She exhibits no tenderness. Abdominal: Soft. She exhibits mass. She exhibits no distension. There is no tenderness. Musculoskeletal: Normal range of motion. She exhibits no edema and no tenderness. Neurological: She is alert and oriented to person, place, and time. No cranial nerve deficit or sensory deficit. She exhibits normal muscle tone. No focal abnormalities appreciated. Answers all questions and follows all commands appropriately. Finger nose finger intact. Skin: Skin is warm and dry. No rash noted. She is not diaphoretic. No erythema. Psychiatric: She has a normal mood and affect. Emergency Department Course Imaging: MRI brain w/o contrast : Negative brain and brainstem MRI examination without contrast. Preliminary report was given by Dr. Saab MRA head w/o contrast: Negative MR angiography of the [place]. Preliminary report was given by Dr. Saab. Interventions: NS 1 L IV Benadryl 50 mg IV Ondansetron 4 mg PO Dilaudid 1mg IV x 3 doses Emergency Department Course: 2029 The patient was examined here in the Emergency Department by myself, findings above. The patient was sent for a MRI and MRA of head while in the emergency department, findings pending. 2345 I discussed the plan of treatment with the patient and she is agreeable to this. I answered allquestions. She continues to have headache, improved briefly with dilaudid and then returning. No change in mental status. Rechecked the patient, findings and plan explained to the patient, who consents to admission. Discussed the patient with Dr. Tejeda, who will admit the patient to a monitored bed for further observation, evaluation, and treatment. Impression & Plan Medical Decision Making: This a 31 year old female who presents to the ED with headache and appeared that she is approximately 14 weeks by her dates. There is some aspects of tension headache in her presentation. It does not seem consistent of migraines. I have low suspicion for meningitis or infections pathology given her lack of fever, meningitis symptoms and the duration of the symptoms. I also have low suspicionof subarachnoid hemorrhage given similar reasons. Due to the severity of her pain and her noting this is the worst headache she has ever had, MR studies were obtained. This does not show any signs ofabnormalities of the blood vessels of her brain. She had a continued IV narcotic needs despite the naivety to narcotic medications. Given her need for continued control of her headache pain she was admitted for further IV pain control to the hospitalist service. She was neurologically intact throughout her stay. She verbalized the understanding of the plan. I felt this was more tension headache perhaps due to some stressors with the . Disposition: The patient is admitted to Dr. Tejeda of the hospitalist service to a medical bed. Diagnosis: 1. Headache 2. Second I, Macario Jennings, am serving as a scribe on 11/03/2011 at 8:28 PM to personally document services performed by Dr. Lee based on my observations and the provider's statements to me. Macario Michaela 11/03/2011 [facility] EMERGENCY DEPARTMENT Selin Lee MD 11/04/11 0840 Elsy Montanez RN - 11/03/2011 7:50 PM CDT Pt has been having on and off headaches for the last 2 weeks. Denies history of migraines. Pt is 14 weeks . Has seen her PCP and given Vicodin. Headache got worst earlier today with no relief from Vicodin. Pt points to left posterior part of head where the pain is. Pt claims it's the worst headache of her life VSS. Respirations easy and nonlabored. GCS=15, follows commands, moves all extremities. documented in this encounter Miscellaneous Notes Initial Assessments - Duc Tejeda MD - 11/05/2011 6:13 PM CDT Initial Assessments - Duc Tejeda MD - 11/05/2011 6:13 PM CDT Pharmacy-Admission Medication History - Eden Moran [facility] - 11/04/2011 10:02 AM CDT Med rec completed by manager of international, list reviewed by pharmacist documented in this encounter Plan of Treatment Not on filedocumented as of this encounter Procedures Procedure Name Priority Date/Time Associated Diagnosis Comme nts MR BRAIN W/O Routine 11/03/2011 10:22 PM Results for this CONTRAST CDT procedure are i n the results section. MRA BRAIN ([facility] STAT 11/03/2011 10:09 PM Res ults for this OF DAY) W/O CDT procedure are in CONTRAST the results section. documented in this encounter Results MRI Brain w/o contrast (11/03/2011 10:22 PM CDT) Anatomical Region Laterality Modality Head, SUBRAD MR NEURO, [facility] MR NEURO Othe r Specimen (Source) Anatomical Collection Method Collection Time Re ceived Time Location / / Volume Laterality 11/03/2011 10:22 PM CDT Impressions 11/04/2011 7:59 AM CDT MRI BRAIN W-O CONTRAST Nov 03, 2011 10:2 2:00 PM HISTORY: Headache for 2 weeks with incre asing severity. TECHNIQUE: Routine pulse sequences witho ut contrast. FINDINGS: Diffusion-weighted images are normal. The brain parenchyma, brainstem, ventricular system, subarachn oid spaces, and vascular structures are normal in appearance. Spe cifically, there is no evidence for intracranial hemorrhage, ac zach infarct, or any focal mass lesions. IMPRESSION: Negative brain and brainstem MRI examination without contrast. Preliminary report was given b charlotte Saab. Selin Lee MD IMG MRI ORDERABLES MRI Angiogram head w/o contrast* (11/03/2011 10:09 PM CDT) Anatomical Region Laterality Modality Head, SUBRAD MR NEURO, [facility] MR NEURO Othe r Specimen (Source) Anatomical Collection Method Collection Time Re ceived Time Location / / Volume Laterality 11/03/2011 10:09 PM CDT Impressions 11/04/2011 7:59 AM CDT MRA HEAD W/O CONTRAST* Nov 03, 2011 10:0 9:00 PM HISTORY: Headaches for 2 weeks with incr easing severity. TECHNIQUE: 3D [id number] MR angiogra phy was performed through the [place]. FINDINGS: The distal internal carotid ar teries, basilar artery, and proximal anterior, middle, and posterior cerebral arteries are patent. There is no evidence for any large vesse l occlusion or stenosis. There is no evidence for a saccular aneurysm. IMPRESSION: Negative MR angiography of t he [place]. Preliminary report was given by Dr. Iftikhar walker. Selin Lee MD IMG MRI ORDERABLES documented in this encounter Visit Diagnoses Diagnosis Headache(784.0) Headache Second state, incidental Head ache Headache documented in this encounter Administered Medications Inactive Administered Medications - up to 3 most recent administrations Medication Order MAR Action Action Date Dose Rate Site 0.9 % sodium chloride IV Rate/Dose Verify 11/04/2011 7:16 AM 1,000 mLs 100 mL/hr solution CDT at 100 mL/hr, Intravenous, CONTINUOUS, Starting on Fri11/04/11 at 0115, Until Fri11/04/11 at 1314 New Bag 11/04/2011 2:58 AM CDT 1,000 mLs 100 mL/hr diphenhydrAMINE (BENADRYL) injection 50 mg Given 11/03/2011 9:44 PM CDT 50 mg 50 mg, Intravenous, ONCE, On 11/03/11 at 2145, For 1 dose HYDROmorphone (DILAUDID) injection 0.2-0 .4 mg Given 11/04/2011 1:12 PM CDT 0.4 mg 0.2-0.4 mg, Intravenous, EVERY 2 HOURS PRN, moderate to severe pain, Starting on Fri11/04/11 at 0114 Given 11/04/2011 11:08 AM CDT 0.4 mg Given 11/04/2011 9:00 AM CDT 0.4 mg HYDROmorphone (PF) (DILAUDID) injection 1 mg Given 11/03/2011 8:43 PM CDT 1 mg 1 mg, Intravenous, ONCE, On Fri11/03/11 at 2045, For 1 dose HYDROmorphone (PF) (DILAUDID) injection 1 mg Given 11/03/2011 10:43 PM CDT 1 mg 1 mg, Intravenous, ONCE, On Fri11/03/11 at 2245, For 1 dose metoclopramide (REGLAN) injection 10 mg Given 11/04/2011 1:45 AM CDT 10 mg 10 mg, Intravenous, ONCE, On 11/04/11 at 0115, For 1 dose, Avoid use if patient has full bowel obstruction or perforation. ondansetron (ZOFRAN) 2 MG/ML injection Given 11/04/2011 1:22 AM CDT 4 mg Starting on Fri11/04/11 at 0123, For 1 dose, RUTHIE ABARCA: cabinet override ondansetron (ZOFRAN) injection 4 mg Given 11/04/2011 8:59 AM CDT 4 mg 4 mg, Intravenous, EVERY 6 HOURS PRN, nausea, vomiting, Administer over 2-5 Minutes, Starting on Fri11/04/11 at 0114, This is Step 1 of nausea and vomiting protocol. If nausea not resolved in 15 minutes, go to Step 2 (Prochlorperazine). oxyCODONE (ROXICODONE) immediate release Given 11/04/2011 1:12 P M CDT 10 mg tablet 5-10 mg 5-10 mg, Oral, EVERY 3 HOURS PRN, moderate to severe pain, Starting on Fri11/04/11 at 0114 Given 11/04/2011 9:00 AM CDT 10 mg Given 11/04/2011 4:58 AM CDT 10 mg sodium chloride 0.9 % BOLUS New Bag 11/03/2011 8:43 PM CDT 1,000 m Ls 1000 mL/hr 1,000 mL Intravenous, 1,000 mL, ONCE, at 1,000 mL/hr, Administer over 1 Hours, On 11/03/11 at 204, For 1 dose documented in this encounter Active and Recently Administered Medications Times are shown in CDT. Scheduled Medication Order 11/02/2011 11/03/2011 11/04/2011 diphenhydrAMINE (BENADRYL) injection 50 mg (COMPLETED) 2143 (Given - Provider: Elsy Montanez RN - Comment: given while pt is at MRI; no scanner) 50 mg, Intravenous, ONCE, 11/03/11 at 2144, For 1 dose HYDROmorphone (PF) (DILAUDID) injection 1 mg (COMPLETED) 2042 (Given - Provider: Elsy Montanez RN) 1 mg, Intravenous, ONCE, 1 dose, 11/03/11 at 2045 HYDROmorphone (PF) (DILAUDID) injection 1 mg (COMPLETED) 2242 (Given - Provider: Elsy Montanez RN) 1 mg, Intravenous, ONCE, 1 dose, [place] 11/03/11 at 2245 metoclopramide (REGLAN) injection 10 mg (COMPLETED) 0145 (Given - Provider: Ruthie Abarca, LEELA) 10 mg, Intravenous, ONCE, On 11/04/11 at 0115, For 1 dose, Avoid use if patient has full bowel obstruction or perforation. sodium chloride 0.9 % BOLUS 1,000 mL (COMPLETED) 2042 (New Bag - Provider: Elsy Montanez RN) 0048 (ED Infusing on Admission/transfer - Provider: Elsy Montanez RN) Intravenous, 1,000 mL, ONCE, at 1,000 mL /hr, for 1 Hours, [place] 11/03/11 at 2045, For 1 dose Continuous Medication Order 11/02/2011 11/03/2011 11/04/2011 0.9 % sodium chloride IV solution () 0258 (New Bag - Provider: Landy Carter LPN)0716 (Rate/Dose Verify - Provider: Madhuri Srivastava) 1,000 mL, Intravenous, at 100 mL/hr, CON TINUOUS, Starting 11/04/11 at 0115, For 12 hours PRN Medication Order 11/02/2011 11/03/2011 11/04/2011 acetaminophen (TYLENOL) tablet 650 mg 650 mg, Oral, EVERY 4 HOURS PRN, mild pa in, Starting 11/04/11 at 0114, Alternate ibuprofen (if ordered) with acetaminophen HYDROmorphone (DILAUDID) injection 0.2-0.4 mg (CANCELED) 0138 (Given - Provider: Ruthie Abarca RN)0419 (Given - Provider: Ruthie Abarca, LEELA)0646 (Given - Provider: Ruthie Abarca RN)0900 (Given - Provider: Caitlyn Mendiola, LEELA)1108 (Given - Provider: Caitlyn Mendiola, LEELA) 0.2-0.4 mg, Intravenous, EVERY 2 HOURS P RN, moderate to severe pain, Starting 11/04/11 at 0114 1312 (Given - Provid er: Caitlyn Mendiola RN) ondansetron (ZOFRAN) injection 4 mg (CANCELED) 0859 (Given - Provider: Caitlyn Mendiola RN) 4 mg, Intravenous, EVERY 6 HOURS PRN, na usea, vomiting, for 2 Minutes, Starting 11/04/11 at 0114, This is Step 1 of nausea and vomiting protocol. If nausea not resolved in 15 minutes, go to Step 2 (Prochlorperazine). oxyCODONE (ROXICODONE) immediate release tablet 5-10 mg (CANCELE D) 0147 (Given - Provider: Landy Carter LPN)0458 (Given - Provider: Ruthie Abarca RN)0900 (Given - Provider: Caitlyn Mendiola RN)1312 (Given - Provider: Caitlyn Mendiola RN) 5-10 mg, Oral, EVERY 3 HOURS PRN, modera te to severe pain, Starting Fri11/04/11 at 0114 No Frequency Medication Order 11/02/2011 11/03/2011 11/04/2011 ondansetron (ZOFRAN) 2 MG/ML injection (COMPLETED) 0122 (Given - Provider: Ruthie Abarca RN) Starting on Fri11/04/11 at 0123, For 1 dose, RUTHIE ABARCA : cabinet override documented in this encounter Care Teams Edge Stripper Relationship Specialty Start Date End Date Ghanshyam Hassan PCP - General 04/19/11 02/21/12 [id number] [place] [id number] documented as of this encounter
--- OUTSIDE RECORDS SUMMARY | 2022-03-23 17:27 | XMS_ITS | Encounter Summary ---
:1980 Author Organization [facility] Address [address] [place] [id number] Care Team Providers Name Role Phone Ghanshyam Hassan Primary Care Provider Reason for Visit Reason Comments Nausea, Vomiting, & Diarrhea Encounter Details Date Type Department Care Team Description 03/22/2013 Emergency [facility] Selin Klein MD Nausea with vomiting (Primary Dx); [facility] Emergency Dep t [facility] Diarrhea; [address] [place], [place] [address] [address] [id number] [place] [address] [place], [place] [id number] (Wo rk) Social History Tobacco Use Types [...] Sign Reading Time Taken Comments Blood Pressure 92/58 03/22/2013 11:30 AM MACHINE BUILDER Pulse - - Temperature 37.4 ??C (99.3 ??F) 03/22/2013 8:30 AM MACHINE BUILDER Respiratory Rate 20 03/22/2013 8:30 AM MACHINE BUILDER Oxygen Saturation 95% 03/22/2013 9:15 AM MACHINE BUILDER Inhaled Oxygen Concentration - - Weight - - Height - - Body Mass Index - - documented in this encounter Discharge Instructions Discharge InstructionsSelin Klein MD - 03/22/2013 9:50 AM CST Discharge Instructions Vomiting You have been seen today for vomiting. This is usually caused by a virus, but some bacteria, parasites, medicines or other medical conditions can cause similar symptoms. At this time your doctor does not find that your vomiting is a sign of anything dangerous or life-threatening. However, sometimes the signs of serious illness do not show up right away. If you have new or worse symptoms, you may needto be seen again in the emergency department or by your primary doctor. Remember that serious problems like appendicitis can start as vomiting. Return to the Emergency Department if: You keep throwing up and you are not able to keep liquids down. You feel you are getting dehydrated, such as being very thirsty, not urinating at least every 8-12 hours, or feeling faint or lightheaded. You develop a new fever, or your fever continues for more than 2 days. You have belly pain that seems worse than cramps, is in one spot, or is getting worse over time. You have blood in your vomit or stools. You feel very weak You are not starting to improve within 24 hours of your visit here What can I do to help myself? The most important thing to do is to drink clear liquids. If you have been vomiting a lot, it is best to have only small, frequent sips of liquids. Drinking too much at once may cause more vomiting. If you are vomiting often, you must replace minerals, sodium and potassium lost with your illness. Pedi alyte?? and sports drinks can help you replace these minerals. You can also drink clear liquids suchas water, weak tea, apple juice, and 7-up. Avoid acid liquids (orange), caffeine (coffee) or alcohol. Do not drink milk until you no longer have diarrhea. After liquids are staying down, you may start eating mild foods. Soda crackers, toast, plain noodles, gelatin, applesauce and bananas are good first choices. Avoid foods that have acid, are spicy, fatty or have a lot of fiber (such as meats, coarse grains, vegetables). You may start eating these foods again in about 3 days when you are better. Sometimes treatment includes prescription medicine to prevent nausea and vomiting. If your doctor prescribes these for you, take them as directed. Don???t take ibuprofen, or other nonsteroidal anti-inflammatory medicines without checking with your healthcare provider. Remember that you can always come back to the Emergency Department if you are not able to see your regular doctor in the amount of time listed above, if you get any new symptoms, or if there is anything that worries you. INE BUILDER documented in this encounter Medications at Time [...] daily. MULTIVITAMIN PLUS IRON) 27-0.8 MG TABS promethazine (PHENERGAN) Take 0.5 tablets 20 tablet 1 03/2204/19/2013 25 MG tablet (12.5 mg) by mouth every 6 hours as needed for nausea documented as of this encounter ED Notes Umu Reed RN - 03/22/2013 8:56 AM CST Labs drawn with IV insertion and sent INE BUILDER Selin Klein MD - 03/22/2013 8:30 AM CST History Chief Complaint: Nausea, Vomiting, & Diarrhea HPI Lacey Nolasco is an otherwise healthy 33 year old female who presents to the emergency departmentfor the evaluation of nausea, vomiting, and diarrhea. The patient reports that an onset of nausea and vomiting yesterday evening, approximately 12 hours ago, noting she has been vomiting approximately every 15 minutes since the onset, with progressively worsening periumbilical abdominal pain and cramping. She reports 3 episodes of diarrhea as well. The patient notes persistent symptoms, despite having taken 8 mg tablets of Zofran at home. Of note, the patient recently traveled to [place], and returned home 3 days ago. She notes that her daughter has vomiting today. While in [place], her daughter was s ick with high fever and leg rash, but recovered. At this time, the patient denies a fever. The patient also reports an onset of diffuse headache this morning, with associated dizziness and lightheadedness with standing. She rates as an 8/10 in severity with no aggravating or alleviating factors. She reports feeling increasingly uncomfortable and developed chills and feeling clammy this mor pollo. The patient denies associated hematemesis, bloody stools, dysuria, hematuria, flank pain, urgency, frequency, appetite change, activity change, fatigue, vision changes, neck pain or stiffness, numbness, tingling, or weakness to the extremities, or any other concerning symptoms. The patient voices no further concerns at this time. Allergies: Ambien Medications: Percocet Roxicodone Ibuprofen Vicodin vitamins Acetaminophen Past Medical History: History reviewed. No pertinent past medical history. 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 No pertinent family history. Social History: The patient presents to the emergency department alone. She notes that she did not drive here and has a ride home if necessary. She denies a history of tobacco use. She reports no current alcohol use. Review of Systems Constitutional: Positive for chills. Negative for fever, appetite change and fatigue. HENT: Negative for neck pain and neck stiffness. Eyes: Negative for photophobia and visual disturbance. Gastrointestinal: Positive for nausea, vomiting, abdominal pain and diarrhea. Negative for blood in stool and abdominal distention. Genitourinary: Negative for dysuria, urgency, frequency, hematuria and flank pain. Skin: Negative for rash and wound. Neurological: Positive for dizziness, light-headedness and headaches. Negative for weakness and numbness. All other systems reviewed and are negative. Physical Exam First Vitals: Blood pressure 111/73 Temperature 99.3 ??F (37.4 ??C) Resp. rate 20 SpO2 96.00%. Physical Exam Gen: Pleasant, appears stated age. Uncomfortable. Eye: Pupils are equal, round, and reactive. Sclera non-injected. ENT: Moist mucus membranes. Normal tongue. Oropharynx without lesions. Cardiac: Normal rate and regular rhythm. No murmurs, gallops, or rubs. Pulmonary: Clear to auscultation bilaterally. No wheezes, rales, or rhonchi. Abdomen: Normal active bowel sounds. Abdomen is soft and non-distended. Minimal diffuse abdominal tenderness. Musculoskeletal: Normal movement of all extremities without evidence for deficit. Extremities: No edema. Skin: Warm and dry. Neurologic: Non-focal exam without asymmetric weakness or numbness. GCS 15 Psychiatric: Normal affect with appropriate interaction with examiner. Emergency Department Course Laboratory: CBC: Absolute Neutrophil 8.9 (high), Absolute Lymphocyte 0.4 (low), o/w WNL (WBC 9.4, HGB 14.3, PLT 207) BMP: Glucose 106 (high), o/w WNL (Creatinine 0.81) HCG Qualitative: Negative Interventions: 08:56 Normal Saline 1.0 L IV injection 08:56 Benadryl 25 mg IV injection 08:56 Metoclopramide 10 mg IV injection 09:27 Ketorolac 30 mg IV injection Emergency Department Course: The patient arrived in triage where her vitals were measured and recorded. The patient was then escorted back to the emergency department. The patient's medical records were reviewed. Nursing notes and vitals reviewed. 08:39 I performed an exam of the patient as documented above. The patient is in agreement with my plan of care. Peripheral IV was placed. Blood was drawn and sent to the laboratory for further tests, results seen above. 09:15 Minimal relief of headache with Reglan. 09:23 MANAGER RENEWABLE ENERGY reviewed - patient has x3 rx for oxycodone #30 over past year. The patient is discharged home, status improved, with instructions regarding supportive care, medications, and reasons to return as well as the importance of close follow-up was reviewed. Discharge Medications: Promethazine 25 mg, take every 6 hours PRN, given 20 tablets. Impression & Plan Medical Decision Making: This patient is a 33 year old, otherwise healthy, female who presents today with one day of refractory vomiting and diarrhea. She has a benign abdominal exam. She is non febrile here in the ED. Differential diagnosis includes infectious diarrhea, gastroenteritis, bowel obstruction, ischemic colitis, pyelonephritis, and . The patient has laboratory studies that are unremarkable and feels muchbetter after Reglan, IV fluids, and Toradol in the ED. Her headache has resolved, and I suspect it is related to dehydration rather than increased ICP, SAH, meningitis, or encephalitis. She has had similar headaches in the past. She is tolerating PO. Her symptoms at this point are most consistent witha viral gastroenteritis. She will be discharged home with Phenergan to practice continued supportivemeasures at home. She will return to the emergency department for bloody diarrhea, fevers, increasedabdominal pain, or inability to hydrate herself. Diagnosis: 1. Nausea with vomiting 2. Diarrhea 3. Dehydration Disposition: The patient is discharged home, in improved condition. IAnabel, am serving as a scribe at 8:39 AM on 03/22/2013 to document services personallyperformed by Dr. Klein, based on my observations and the provider's statements to me. Anabel Wise 03/22/2013 [facility] EMERGENCY DEPARTMENT Selin Klein MD 03/22/13 1412 INE BUILDER Umu Reed RN - 03/22/2013 8:29 AM CST Severe headache developed this AM. INE BUILDER Umu Reed, RN - 03/22/2013 8:25 AM CST Nausea, vomiting and diarrhea started yesterday. Pt recently traveled to [place] and returned on Friday. INE BUILDER documented in this encounter Plan of Treatment Not on filedocumented as of this encounter Procedures Procedure Name Priority Date/Time Associated Comments Diagnosis CBC WITH PLATELETS & STAT 03/22/2013 8:50 AM R esults for this DIFFERENTIAL MACHINE BUILDER procedure are i n the results section. HCG QUALITATIVE STAT 03/22/2013 8:50 AM Result s for this MACHINE BUILDER procedure are i n the results section. BASIC METABOLIC PANEL STAT 03/22/2013 8:50 AM Results for this MACHINE BUILDER procedure are i n the results section. documented in this encounter Results HCG qualitative (03/22/2013 8:50 AM MACHINE BUILDER) Patholo gist Method Time Signature HCG Qualitative Negative NEG [facility] LAB Specimen Anatomical Collection Method Collection Time Receive d Time (Source) Location / / Volume Laterality Blood specimen 03/22/2013 8:50 AM 013 8:59 (specimen) MACHINE BUILDER AM MACHINE BUILDER Selin Klein MD LAB - BLOOD ORDERABLES Performing Organization Address City/State/ZIP Code Phon e Number [facility] [address] [address] [facility] LAB (ABNORMAL) Basic metabolic panel (03/22/2013 8:50 AM MACHINE BUILDER) athologist Signature Sodium 139 133 - 144 [place] mmol/L [facility] LAB Potassium 4.2 3.4 - 5.3 [place] mmol/L [facility] Chloride 102 94 - 109 [place] mmol/L [facility] Carbon Dioxide 24 20 - 32 [place] mmol/L [facility] Anion Gap 12 6 - 17 [place] mmol/L [facility] Glucose 106 (H) 60 - 99 [place] mg/dL [facility] LAB Urea Nitrogen 19 5 - 24 [place] mg/dL [facility] Creatinine 0.81 0.52 [facility] 1.[facility] mg/dL [facility] GFR Estimate 80 >60 [place] mL/min/1.[address] LAB GFR Estimate If >90 >60 [place] Black mL/min/1.[address] LAB Calcium 9.1 8.5 - 10.4 [place] mg/dL [facility] LAB Specimen Anatomical Collection Method Collection Time Receive d Time (Source) Location / / Volume Laterality Blood specimen 03/22/2013 8:50 AM 013 8:59 (specimen) MACHINE BUILDER AM MACHINE BUILDER Selin Klein MD LAB - BLOOD ORDERABLES Performing Organization Address City/State/ZIP Code Phon e Number [place] [address] [address] [place], [place] [address] [facility] LAB (ABNORMAL) CBC with platelets differential (03/22/2013 8:50 AM MACHINE BUILDER) [facility] gist Method Time Signature WBC 9.4 4.0 - [place] 11.0 [facility] 10e9/L [facility] LAB RBC Count 5.15 3.8 - 5.2 [place] 10e12/L [facility] Hemoglobin 14.3 11.7 - [place] 15.7 g/dL [facility] Hematocrit 43.6 35.0 - [facility] 47.0 % [facility] MCV 85 78 - 100 [place] fl [facility] MCH 27.8 26.5 - [facility] 33.0 pg [facility] MCHC 32.8 31.5 - [place] 36.5 g/dL [facility] RDW 14.7 10.0 - [facility] 15.0 % [facility] Platelet Count 207 150 - 450 [place] 10e9/L [facility] Diff Method Automated [facility] LAB % Neutrophils 94.9 % [facility] LAB % Lymphocytes 4.1 % [facility] LAB % Monocytes 0.7 % [facility] LAB % Eosinophils 0.1 % [facility] LAB % Basophils 0.1 % [facility] % Immature 0.1 % [place] Granulocytes [facility] Absolute 8.9 (H) 1.6 - 8.3 [place] Neutrophil 10e9/L [facility] Absolute 0.4 (L) 0.8 - 5.3 [place] Lymphocytes 10e9/L [facility] Absolute 0.1 0.0 - 1.3 [place] Monocytes 10e9/L [facility] Absolute 0.0 0.0 - 0.7 [place] Eosinophils 10e9/L [facility] Absolute 0.0 0.0 - 0.2 [place] Basophils 10e9/L [facility] LAB Abs Immature 0.0 0 - 0.4 [place] Granulocytes 10e9/[facility] LAB Specimen Anatomical Collection Method Collection Time Receive d Time (Source) Location / / Volume Laterality Blood specimen 03/22/2013 8:50 AM 013 8:59 (specimen) MACHINE BUILDER AM MACHINE BUILDER Selin Klein MD LAB - BLOOD ORDERABLES Performing Organization Address City/State/ZIP Code Phon e Number [facility] [address] [place], [place] [address] [facility] LAB documented in this encounter Visit Diagnoses Diagnosis Nausea with vomiting - Primary Diarrhea Dehydration documented in this encounter Administered Medications Inactive Administered Medications - up to 3 most recent administrations Medication Order MAR Action Action Date Dose Rate Site diphenhydrAMINE (BENADRYL) Given 03/22/2013 8:56 AM MACHINE BUILDER 25 mg injection 25 mg 25 mg, Intravenous, ONCE, On Fri03/22/13 at 0900, For 1 dose ketorolac (TORADOL) injection 30 mg Given 03/22/2013 9:27 AM MACHINE BUILDER 30 mg 30 mg, Intravenous, ONCE, On Fri03/22/13 at 0930, For 1 dose metoclopramide (REGLAN) injection 10 mg Given 03/22/2013 8:56 AM MACHINE BUILDER 10 mg 10 mg, Intravenous, ONCE, On Fri03/22/13 at 0900, For 1 dose sodium chloride 0.9 % BOLUS New Bag 03/22/2013 8:56 AM MACHINE BUILDER 1,000 m Ls 2000 mL/hr 2,000 mL Intravenous, 2,000 mL, ONCE, at 2,000 mL/hr, Administer over 1 Hours, On Fri03/22/13 at 0900, For 1 dose documented in this encounter Active and Recently Administered Medications Times are shown in MACHINE BUILDER. Scheduled Medication Order 03/20/2013 03/21/2013 03/22/2013 diphenhydrAMINE (BENADRYL) injection 25 mg (COMPLETED) 855 (Given - Provider: Umu Reed RN) 25 mg, Intravenous, ONCE, Fri03/22/13 at 0900, For 1 dose ketorolac (TORADOL) injection 30 mg (COMPLETED) 926 (Given - Provider: Umu Reed RN) 30 mg, Intravenous, ONCE, Fri03/22/13 at 0930, For 1 dose metoclopramide (REGLAN) injection 10 mg (COMPLETED) 855 (Given - Provider: Umu Reed RN) 10 mg, Intravenous, ONCE, Fri03/22/13 at 0900, For 1 dose sodium chloride 0.9 % BOLUS 2,000 mL (COMPLETED) 855 (New Bag - Provider: Umu Reed RN)1124 (Stopped - Provider: Umu Reed RN) Intravenous, 2,000 mL, ONCE, at 2,000 mL /hr, Administer over 1 Hours, Fri03/22/13 at 0900, For 1 dose documented in this encounter Care Teams Tsa Screener Relationship Specialty Start Date End Date Ghanshyam Hassan PCP - General 04/08/12 11/14/18 [id number] [place] [id number] documented as of this encounter
--- OUTSIDE RECORDS SUMMARY | 2022-03-23 17:27 | XMS_ITS | Encounter Summary ---
:1980 Author Organization [facility] Address [address] [place] [address]. [place] [address] Care Team Providers Name Role Phone Ghanshyam Hassan Primary Care Provider [phone] Reason for Visit Reason Comments Abdominal Pain Nausea, Vomiting, & Diarrhea Encounter Details Date Type Department Care Team Description 05/23/2015 Emergency [facility] Alyse Barnes MD Nausea vomiting and diarrhea; [facility] Emergency Dep t [facility] Abdominal pain, generalized [address] [place], [place] [address] [facility] [id number] [place], [place] [id number] (Wo rk) Social History Tobacco Use Types [...] Sign Reading Time Taken Comments Blood Pressure 105/67 05/23/2015 12:30 PM PRESCRIPTIONIST Pulse 71 05/23/2015 9:06 AM PRESCRIPTIONIST Temperature 36.9 ??C (98.4 ??F) 05/23/2015 9:06 AM PRESCRIPTIONIST Respiratory Rate 18 05/23/2015 9:06 AM PRESCRIPTIONIST Oxygen Saturation 98% 05/23/2015 12:15 PM PRESCRIPTIONIST Inhaled Oxygen Concentration - - Weight - - Height - - Body Mass Index - - documented in this encounter Discharge Instructions Discharge InstructionsAlyse Barnes MD - 05/23/2015 1:10 PM CST Please follow up with your regular physician within 2-3 days. Please return to the ED if your symptoms worsen or if you develop new or concerning symptoms. Discharge Instructions Adult Diarrhea You have been seen today for diarrhea. This is usually caused by a virus, but some bacteria, parasites, medicines or other medical conditions can cause similar symptoms. At this time your doctor does not find that your diarrhea is a sign of anything dangerous or life-threatening. However, sometimes the signs of serious illness do not show up right away. If you have new or worse symptoms, you may needto be seen again in the Emergency Department or by your primary doctor. Return to the Emergency Department if: ??? You feel you are getting dehydrated, such as being very thirsty, not urinating at least every 8-12 hours, or feeling faint or lightheaded. ??? You develop a new fever, or your fever continues for more than 2 days. ??? You have belly pain that seems worse than cramps, is in one spot, or is getting worse over time. ??? You have blood in your stool or your stool becomes black. (Remember that if you take Pepto-Bismol??, this will turn your stool black). ??? You feel very weak. ??? You are not starting to improve within 24 hours of your visit here. What can I do to help myself? The most important thing to do is to drink clear liquids. It is best to have only small, frequent sips of liquids. Drinking too much at once may cause more diarrhea. You should also replace minerals, sodium and potassium lost with diarrhea. Pedialyte?? and sports drinks can help you replace these minerals. You can also drink clear liquids such as water, weak tea, apple juice, and 7-Up??. Avoid acid liquids (orange), caffeine (coffee) or alcohol. Milk products will make the diarrhea worse. ??? Eat only bland foods. Soda crackers, toast, plain noodles, gelatin, applesauce and bananas are good first choices. Avoid foods that have acid, are spicy, fatty or fibrous (such as meats, coarse grains, vegetables). You may start eating these foods again in about 3 days when you are better. ??? Sometimes treatment includes prescription medicine to prevent diarrhea. If your doctor prescribes these for you, take them as directed. ??? Nonprescription medicine is available for the treatment of diarrhea and can be very effective. If you use it, make sure you use the dose recommended on the package. Check with your healthcare provider before you use any medicine for diarrhea. ??? Don???t take ibuprofen, or other nonsteroidal anti-inflammatory medicines without checking with your healthcare provider. Probiotics: If you have been given an antibiotic, you may want to also take a probiotic pill or eat yogurt with live cultures. Probiotics have good bacteria to help your intestines stay healthy. Studies have shown that probiotics help prevent diarrhea and other intestine problems (including C. diff infection) when you take antibiotics. You can buy these without a prescription in the pharmacy section of the store. If you were given a prescription for [...] contain Tylenol?? (acetaminophen), including Vicodin??, Tylenol #3??, Algona??, Lortab??, and Percocet??. You should not take [...] if there is anything that worries you. Discharge Instructions Vomiting You have been seen [...] vomiting. Return to the Emergency Department if: ??? You keep throwing up and you are not able to keep liquids down. ??? You feel you are getting dehydrated, such as being very thirsty, not urinating at least every 8-12 hours, or feeling faint or lightheaded. ??? You develop a new fever, or your fever continues for more than 2 days. ??? You have belly pain that seems worse than cramps, is in one spot, or is getting worse over time. ??? You have blood in your vomit or stools. ??? You feel very weak. ??? You are not starting to improve within 24 hours of your visit here. What can I do to help myself? The most important thing to do is to drink clear liquids. If you have been vomiting a lot, it isbest to have only small, frequent sips of liquids. Drinking too much at once may cause more vomiting. If you are vomiting often, you must replace minerals, sodium and potassium lost with your illness. Pedialyte?? and sports drinks can help you replace these minerals. You can also drink clear liquids such as water, weak tea, apple juice, and 7-Up??. Avoid acid liquids (orange), caffeine (coffee) or alcohol. Do not drink milk until you no longer have diarrhea. ??? After liquids are staying down, you may start eating mild foods. Soda crackers, toast, plain noodles, gelatin, applesauce and bananas are good first choices. Avoid foods that have acid, are spicy, fatty or have a lot of fiber (such as meats, coarse grains, vegetables). You may start eating these foods again in about 3 days when you are better. ??? Sometimes treatment includes prescription medicine to prevent nausea and vomiting. If your doctor prescribes these for you, take them as directed. ??? Don???t take ibuprofen, or other nonsteroidal anti-inflammatory [...] contain Tylenol?? (acetaminophen), including Vicodin??, Tylenol #3??, Algona??, Lortab??, and Percocet??. You should not take [...] if there is anything that worries you. CRIPTIONIST documented in this encounter Medications at Time of Discharge Medication Sig Dispensed Refills Start Date End Date ondansetron (ZOFRAN ODT) 4 Take 1 tablet (4 10 tablet 0 12/201505/26/2015 MG disintegrating tablet mg) by mouth every 8 hours as needed for nausea documented as of this encounter ED Notes Neetu Cooper RN - 05/23/2015 11:00 AM CST Up to bathroom and had a small light brown BM with urine mixed into the sample. Called lab and they said that they cannot accept a stool sample for c-diff that is contaminated with urine. Patient states her abdominal pain is 3 out of 10 at this time, and that she is less nauseated, but she would like to have another bag of IVF before discharge. Alyse Henry MD - 05/23/2015 9:30 AM CST History Chief Complaint: Abdominal Pain and Nausea, Vomiting, & Diarrhea HPI Lacey Nolasco is an otherwise healthy 35 year old female who presents to the ED with her for evaluation of vomiting and diarrhea. Yesterday evening around 2230 the patient developed crampy abdominal pain, nausea, vomiting and diarrhea, with episodes occurring every ten minutes throughout the night and into this morning. The patient is suspicious for food poisoning, considering she felt fine yesterday just prior to her symptoms. Her children did eat with her yesterday evening and are asymptomatic, but she notes that she did eat lettuce unlike her children. She has taken anti-emetics withoutrelief. She denies fever, blood in her stool, recent travel. She was on Augmentin two weeks ago for a sinus infection. No other symptoms or concerns are voiced at this time. Allergies: Ambien Medications: The patient is not currently taking any prescribed medications. 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 No pertinent family history. Social History: The patient was accompanied to the ED by her . Smoking Status: Never smoker Smokeless Tobacco: Never used Alcohol Use: No Marital Status: Review of Systems Constitutional: Negative for fever. Gastrointestinal: Positive for nausea, vomiting, abdominal pain (diffuse) and diarrhea. Negative forblood in stool. All other systems reviewed and are negative. Physical Exam First Vitals: BP: 122/81 mmHg Pulse: 71 Temp: 98.4 ??F (36.9 ??C) Resp: 18 SpO2: 96 % Physical Exam Constitutional: The patient is oriented to person, place, and time. Alert and cooperative. HENT: Right Ear: External ear normal. Left Ear: External ear normal. Nose: Nose normal. Mouth/Throat: Uvula is midline, oropharynx is clear and moist and mucous membranes are normal. No posterior oropharyngeal edema or erythema. Eyes: Conjunctivae, EOM and lids are normal. Pupils are equal, round, and reactive to light. Neck: Trachea normal. Normal range of motion. Neck supple. Cardiovascular: Normal rate, regular rhythm, normal heart sounds, and intact distal pulses. Pulmonary/Chest: Effort normal and breath sounds equal bilaterally. No crackles or wheezing. Abdominal: Soft. Mild suprapubic tenderness to palpation. No rebound and no guarding. Musculoskeletal: Normal range of motion. No extremity tenderness or edema. Neurological: Alert and Oriented. Strength 5/5 in upper and lower extremities bilaterally. Sensationintact to light touch throughout. Skin: Skin is dry. No rash noted. Emergency Department Course Laboratory: CBC: WNL (WBC 8.9, HGB 14.1, PLT 197) CMP: Glucose 100 (H), o/w WNL (Creatinine 0.85) Lipase: 97 UA: Ketone 5, albumin 10, mucous present, o/w negative UPT: Negative Clostridium difficile toxin B PCR: Not collected during time in ED Interventions: 1005 NS 1,000 mL IV Zofran 4 mg IV 1006 Dilaudid 0.5 1108 NS 1,000 mL IV 1159 Zofran 4 mg IV Emergency Department Course: Nursing notes and vitals reviewed. 0930: I performed an exam of the patient as documented above. 1045: I reassessed the patient. 1300: I reassessed the patient. I personally reviewed the laboratory results with the Patient and answered all related questions prior to discharge. Findings and plan explained to the Patient and spouse. Patient discharged home with instructions regarding supportive care, medications, and reasons to return. The importance of close follow-up was reviewed. The patient was prescribed Zofran. Impression & Plan Medical Decision Making: Lacey Nolasco is a 35 year old otherwise healthy female, who presents to the emergency departmentfor evaluation of nausea, vomiting and diarrhea. Upon presentation in the ED, the patient is non-toxic appearing. Vitals are within normal limits and stable. On exam, she is well-appearing. She is alert, oriented, and her neurologic exam is non-focal. Cardiopulmonary exam is unremarkable. Abdomen is soft. She does have mild tenderness to palpation in the suprapubic region. There is no rebound or guarding. The rest of her exam is as mentioned above. CBC is within normal limits. CMP is unremarkable. Lipase is within normal limits. UA demonstrates no evidence of an infectious process. UPT is negative.C. Diff. was ordered, however the patient was unable to provide a sample while in the ED. Upon repeat evaluation after receiving the above mentioned interventions, the patient notes that her symptoms have significantly improved. She was given a trial of PO and tolerated this well. Given that the patient is afebrile, without a leukocytosis and without hematochezia, I feel that an invasive bacterial etiology of her diarrhea is less likely and antibiotics are not indicated at this time. She has no peritoneal signs on exam to suggest an acute surgical abdomen or warrant CT at this time. She has no RLQ tenderness to suggest an acute appendicitis. Given her history and presentation, I am suspicious for a viral GI illness. Unfortunately, the patient was unable to provide a stool sample for C.diff testing while in the ED, however, I did recommend that she follow up closely with her PCP. She states that she understands and is in agreement with this plan. She was given a prescription for Zofran. Return instructions were given. She was discharged to home in stable/improved condition. Diagnosis: 1. (R11.2, R19.7) Nausea vomiting and diarrhea 2. (R10.84) Abdominal pain, generalized Discharge Medication List as of 05/23/2015 1:21 PM START taking these medications Details ondansetron (ZOFRAN ODT) 4 MG disintegrating tablet Take 1 tablet (4 mg) by mouth every 8 hours as needed for nausea, Disp-10 tablet, R-0, Local Print Joselyn Thomas 05/23/2015 [facility] EMERGENCY DEPART[facility] I, Joselyn Thomas, am serving as a scribe at 0930 on May 23, 2015 to document services personally performed by Dr. Alyse Barnes, based on my observations and the provider's statements to me. Alyse Barnes MD 05/23/15 1639 Alyse Barnes MD 05/23/15 1640 CRIPTIONIST Mona Patel, LEELA - 05/23/2015 9:07 AM CST Abd pain with nausea vomiting diarrhea x 12 hrs. Pt a/o x 3. CRIPTIONIST documented in this encounter Plan of Treatment Not on filedocumented as of this encounter Procedures Procedure Name Priority Date/Time Associated Comments Diagnosis LIPASE STAT 05/23/2015 9:55 AM Results f or this PRESCRIPTIONIST procedure are i n the results section. COMPREHENSIVE STAT 05/23/2015 9:55 AM Results for this METABOLIC PANEL PRESCRIPTIONIST procedure ar e in the results section. CBC WITH PLATELETS STAT 05/23/2015 9:55 AM Res ults for this PRESCRIPTIONIST procedure are i n the results section. HCG QUALITATIVE URINE STAT 05/23/2015 9:51 AM Results for this PRESCRIPTIONIST procedure are i n the results section. ROUTINE UA WITH Routine 05/23/2015 9:51 AM Result s for this MICROSCOPIC PRESCRIPTIONIST procedure are i n the results section. documented in this encounter Results Lipase (05/23/2015 9:55 AM PRESCRIPTIONIST) P athologist Signature Lipase 97 73 - 393 [facility] Specimen Anatomical Collection Method Collection Time Receive d Time (Source) Location / / Volume Laterality Blood specimen 05/23/2015 9:55 AM 016 (specimen) PRESCRIPTIONIST 10:07 AM PRESCRIPTIONIST Alyse Barnes MD LAB - BLOOD ORDERABLES Performing Organization Address City/State/ZIP Code Phon e Number M [facility] [address] [place], [place] [address] [facility] [address] [phone] (ABNORMAL) Comprehensive metabolic panel (05/23/2015 9:55 AM PRESCRIPTIONIST) athologist Signature Sodium 141 133 - 144 [place] [facility] Potassium 3.9 3.4 - 5.3 [place] mmol/L [facility] Chloride 108 94 - 109 [place] mmol/L [facility] Carbon Dioxide 27 20 - 32 [place] mmol/[facility] Anion Gap 6 3 - 14 [place] mmol/L [facility] Glucose 100 (H) 70 - 99 [place] mg/dL [facility] Urea Nitrogen 16 7 - 30 [place] mg/dL [facility] Creatinine 0.85 0.52 - [place] 1.04 mg/dL [facility] GFR Estimate 75 >60 [place] mL/min/1.7 [facility] m2 HOSPITAL Comment: Non GFR Calc GFR Estimate If Black >90 >60 mL/min/1.7m2 F [facility] GFR Calc HOSP ITAL Calcium 8.9 8.5 - 10.1 mg/dL [facility] Bilirubin Total 0.7 0.2 - 1.3 mg/dL [facility] Albumin 4.0 3.4 - 5.0 g/dL [facility] Protein Total 7.4 6.8 - 8.8 g/dL [facility] Alkaline Phosphatase 55 40 - 150 U/L [facility] ALT 22 0 - 50 U/L [facility] AST 16 0 - 45 U/L [facility] Specimen Anatomical Collection Method Collection Time Receive d Time (Source) Location / / Volume Laterality Blood specimen 05/23/2015 9:55 AM 016 (specimen) PRESCRIPTIONIST 10:07 AM PRESCRIPTIONIST Alyse Barnes MD LAB - BLOOD ORDERABLES Performing Organization Address City/State/ZIP Code Phon e Number M [facility] [address] [place] [address] [facility] [address] [phone] CBC (platelets, no diff) (05/23/2015 9:55 AM PRESCRIPTIONIST) athologist Signature WBC 8.9 4.0 - 11.0 [place] 10e9/L [facility] RBC Count 4.83 3.8 - 5.2 [place] 10e12/L [facility] Hemoglobin 14.1 11.7 - [place] 15.7 g/dL [facility] Hematocrit 42.5 35.0 - [place] 47.0 % [facility] MCV 88 78 - 100 [place] fl [facility] MCH 29.2 26.5 - [place] 33.0 pg [facility] MCHC 33.2 31.5 - [place] 36.5 g/dL [facility] RDW 14.0 10.0 - [place] 15.0 % [facility] Platelet Count 197 150 - 450 [place] 10e9/L [facility] Specimen Anatomical Collection Method Collection Time Receive d Time (Source) Location / / Volume Laterality Blood specimen 05/23/2015 9:55 AM 016 (specimen) PRESCRIPTIONIST 10:07 AM PRESCRIPTIONIST Alyse Barens MD LAB - BLOOD ORDERABLES Performing Organization Address City/[facility]/ZIP [facility] Phon e Number M [facility] [address] [place] [address] [facility] [address] [place] [address], [facility] [phone] HCG qualitative urine (05/23/2015 9:51 AM PRESCRIPTIONIST) athologist Signature HCG Qual Urine Negative NEG [facility] Specimen Anatomical Collection Method Collection Time Receive d Time (Source) Location / / Volume Laterality Urine specimen URINE SPECIMEN 05/23/2015 9:51 AM 05/23 (specimen) OBTAINED BY CLEAN PRESCRIPTIONIST 10:[address] CATCH PROCEDURE / Unknown Alyse Barnes MD LAB - URINE ORDERABLES Performing Organization Address City/State/ZIP [facility] Phon e Number M [facility] [address] [place], [place] [address] [facility] [address] [place] [address], [facility] [phone] (ABNORMAL) UA with Microscopic (05/23/2015 9:51 AM PRESCRIPTIONIST) Patholo gist Method Time Signature Color Urine Yellow [facility] Appearance Urine Clear [facility] Glucose Urine Negative NEG mg/dL [facility] Bilirubin Urine Negative NEG [facility] Ketones Urine 5 (A) NEG mg/dL [facility] Specific [place] 1.019 1.003 - [place] Urine 1.035 [facility] Blood Urine Negative NEG [facility] pH Urine 6.0 5.0 - 7.0 [place] pH [facility] Protein Albumin 10 (A) NEG mg/dL [facility] Urobilinogen Normal 0.0 - 2.0 [place] mg/dL mg/dL [facility] Nitrite Urine Negative NEG [facility] Leukocyte Negative NEG [place] Esterase Urine [facility] Source Midstream [facility] WBC Urine 1 0 - 2 [place] /[facility] RBC Urine 1 0 - 2 [facility] Squamous 1 0 - 1 [place] Epithelial [facility] Mucous Urine Present (A) NEG /LPF [facility] Specimen Anatomical Collection Method Collection Time Receive d Time (Source) Location / / Volume Laterality Urine specimen URINE SPECIMEN 05/23/2015 9:51 AM 05/23 (specimen) OBTAINED BY CLEAN PRESCRIPTIONIST 10:[address] CATCH PROCEDURE / Unknown Alyse Barnes MD LAB - URINE ORDERABLES Performing Organization Address City/State/ZIP Code Phon e Number M [place] [address] [facility] [address] [phone] documented in this encounter Visit Diagnoses Diagnosis Nausea vomiting and diarrhea Nausea with vomiting Abdominal pain, generalized documented in this encounter Administered Medications Inactive Administered Medications - up to 3 most recent administrations Medication Order MAR Action Action Date Dose Rate Site 0.9% sodium chloride BOLUS New Bag 05/23/2015 10:05 AM 1,000 mLs 1000 mL/hr Intravenous, 1,000 mL, PRESCRIPTIONIST ONCE, at 1,000 mL/hr, Administer over 1 Hours, On Fri05/23/15 at 0938, For 1 dose 0.9% sodium chloride BOLUS New Bag 05/23/2015 11:08 AM 1,000 mLs 1000 mL/hr Intravenous, 1,000 mL, ONCE, at PRESCRIPTIONIST 1,000 mL/hr, Administer over 1 Hours, On Fri05/23/15 at 1108, For 1 dose HYDROmorphone (PF) (DILAUDID) injection 0.5 Given 12/2015 10:06 AM PRESCRIPTIONIST 0.5 mg mg 0.5 mg, Intravenous, ONCE, On 05/23/15 at 0938, For 1 dose ondansetron (ZOFRAN) injection 4 mg Given 05/23/2015 10:05 AM PRESCRIPTIONIST 4 mg 4 mg, Intravenous, ONCE, Administer over 2-5 Minutes, On 05/23/15 at 0938, For 1 dose ondansetron (ZOFRAN) injection 4 mg Given 05/23/2015 11:59 AM PRESCRIPTIONIST 4 mg 4 mg, Intravenous, ONCE, Administer over 2-5 Minutes, On 05/23/15 at 1137, For 1 dose documented in this encounter Active and Recently Administered Medications Times are shown in PRESCRIPTIONIST. Scheduled Medication Order 05/21/2015 05/22/2015 05/23/2015 0.9% sodium chloride BOLUS (COMPLETED) 1005 (New Bag - Provider: Neetu Cooper RN)1103 (Stopped - Provider: Neetu Cooper RN) Intravenous, 1,000 mL, ONCE, at 1,000 mL /hr, for 1 Hours, 05/23/15 at 0938, For 1 dose 0.9% sodium chloride BOLUS (COMPLETED) 1108 (New Bag - Provider: Neetu Cooper RN)1201 (Stopped - Provider: Neetu Cooper RN) Intravenous, 1,000 mL, ONCE, at 1,000 mL /hr, for 1 Hours, 05/23/15 at 1108, For 1 dose HYDROmorphone (PF) (DILAUDID) injection 0.5 mg (COMPLETED) 1006 (Given - Provider: Neetu Cooper RN) 0.5 mg, Intravenous, ONCE, 1 dose, 05/23/15 at 0938 ondansetron (ZOFRAN) injection 4 mg (COMPLETED) 1005 (Given - Provider: Neetu Cooper RN) 4 mg, Intravenous, ONCE, for 2 Minutes, 05/23/15 at 0938, For 1 dose ondansetron (ZOFRAN) injection 4 mg (COMPLETED) 1159 (Given - Provider: Neetu Jeno, RN) 4 mg, Intravenous, ONCE, for 2 Minutes, 05/23/15 at 1137, For 1 dose documented in this encounter Care Teams Dieing Out Machine Operator Relationship Specialty Start Date End Date Ghanshyam Hassan PCP - General 04/08/12 11/14/[id number] [place], [place] [address] documented as of this encounter
--- OUTSIDE RECORDS SUMMARY | 2022-03-23 17:27 | XMS_ITS | Encounter Summary ---
:1980 Author Organization [facility] Address [address] [place] [id number] Care Team Providers Name Role Phone Ghanshyam Hassan Primary Care Provider [phone] Reason for Visit Reason Comments Rule Out Labor induction for macrosomia Auth/Cert - Closed Specialty Diagnoses / Procedures Referred By Contact Refer red To Contact monorail hooker [facility] [address] [place], [place] [address] Phone: Fax: Referral ID Status Reason Start Date Expiration Date Visits Requ ested Visits Authorized [id number] Closed 1 1 Encounter Details Date Type Department Care Team Description 04/25/2012 - [facility] Harriet Beasley[address] [id number] Headache (Primary Dx); 04/28/2012 Encounter [facility] Allen Amaya MD [address] [place] [address] Vaginal delivery [address] [place] [address] Social History Tobacco Use Types [...] Reading Time Taken Comments Blood Pressure 114/70 04/28/2012 7:00 AM BULB GRADER Pulse 89 04/28/2012 7:00 AM BULB GRADER Temperature 36.8 ??C (98.2 ??F) 04/28/2012 7:00 AM BULB GRADER Respiratory Rate 18 04/28/2012 7:00 AM BULB GRADER Oxygen Saturation - - Inhaled Oxygen Concentration - - Weight 90.3 kg (199 lb) 04/25/2012 7:29 PM BULB GRADER Height 167.6 cm (5' 6) 04/25/2012 7:29 PM BULB GRADER Body Mass Index 32.12 04/25/2012 7:29 PM BULB GRADER documented in this encounter Discharge Summaries Chloe Mckenzie MD - 04/28/2012 9:15 AM CST Progress Note: DAILY NOTE - DAY #2 Normal spontaneous vaginal delivery SUBJECTIVE: Pain controlled? Yes Tolerating a regular diet? YES Ambulating? YES Voiding without difficulty? Yes Lochia? minimal : yes OBJECTIVE: Filed Vitals: 04/27/12 1554 04/28/12 0034 04/28/12 0046 04/28/12 0700 BP: 114/69 111/70 114/70 Pulse: 77 73 89 Temp: 98.5 ??F (36.9 ??C) 98.6 ??F (37 ??C) 98.2 ??F (36.8 ??C) TempSrc: Oral Oral Oral Resp: 18 12 18 Height: Weight: Constitutional: healthy, alert and no distress Abdomen: Uterine fundus is firm, non-tender and at the level of the umbilicus Extremeties: no edema, non-tender LABS: Hemoglobin Date Value Range Status 02/22/2012 11.0* 11.7 - 15.7 g/dL Final 04/23/2011 12.9 11.7 - 15.7 g/dL Final RUBELLAABIGG immune 09/23/2011 No results found for this basename: ABO No results found for this basename: RH ASSESSMENT: Post- day #2 Normal spontaneous vaginal delivery Doing well. PLAN: D/C Home, F/U in 6 weeks Prescriptions for Oxycodone & Ibuprofen Chloe Mckenzie GRADER documented in this encounter Discharge Instructions Discharge InstructionsEmily Avery LPN - 04/28/2012 11:02 AM CST [facility] Vaginal Delivery or Discharge Instructions [phone] Activity: Go back to your normal activities, except, as directed by your Dr Diet: You may eat a regular diet. Drink plenty of fluids. Call your Doctor or Information Technology Instructor if you have any of these symptoms: * You soak a sanitary pad with blood within 1 hour, or you see clots larger than a golf ball. * Bleeding that lasts more than 6 weeks. *Bad-smelling fluid that comes out of your vagina. *A fever above 100.4 degrees Fahrenheit (38.4 degrees Celsius) with or without chills. * Severe pain, cramping, or tenderness in your lower belly area. * Increased pain, swelling, redness or fluid around your stitches. * A need to urinate more frequently (use the toilet more often), more urgently (use the toilet very quickly), or it curry when you urinate. * Redness, swelling, or pain around a vein in your leg. * Problems coping with sadness, anxiety, or depression. * Problems , or a red or painful area on your breast. * You have questions or concerns after you return home. There is no immunization history for the selected administration types on file for this patient. GRADER documented in this encounter Medications at Time [...] MG TABS documented as of this encounter Progress Notes Allen Amaya MD - 04/29/2012 9:41 PM CST Jesse Kelly LSW - 04/28/2012 10:41 AM CST D) SWS responding to nursing referral I) SWS met with Lacey who is to Sean. They live together in [place] with their 7 Yr olddaughter and now daughter. They are prepared for her at home and are not on WIC. Lacey hasno concerns for herself for baby blues/ depression. SWS discussed baby blues/ depression and gave information on this. SWS also gave Parent Resource Guide with SWS contact information. A) Lacey is A&O with flat affect and minimal eye contact, she seems guarded. Sean is at bedside and grandma is holding the baby. Extended family are nearby and supportive. P) No further d/c needs at this time. SWS available upon request GRADER Kiran Gunter MD - 04/27/2012 8:35 AM CST S/P epidural for labor. Doing well. Neuro at baseline. Denies positional headache. Minimal side effects easily managed w/ PRN meds. No apparent anesthetic complications. No follow-up required. JAKollitzMD GRADER Gurjit Joe MD - 04/27/2012 8:33 AM CST [facility] Carmona OB Note S: Patient without complaints. Minimal lochia. O: Blood pressure 116/74, pulse 82, temperature 98.1 ??F (36.7 ??C), temperature source Oral, resp. rate 18, height 1.676 m (5' 6), weight 90.266 kg (199 lb), last menstrual period 08/01/2011, unknownif currently . Urine output adequate Abdomen - Fundus firm, at umbilicus, nontender Extremities - No calf tenderness A: Day# 1, s/p Vaginal delivery - doing well P: 1) Routine care 2) Probable D/C tomorrow GURJIT JOE MD GRADER Allen Amaya MD - 04/26/2012 8:10 AM CST No significant change in general health status based on exam of the patient, review of Nursing database and . Harriet Samson MD - 04/26/2012 6:37 AM CST Called secondary to late decelerations. Reviewed FHT's with repetitive late decelerations and low blood pressures. She had received a dose of Ephedra and O2, fluid bolus and position changes with improvement of the FHT's. Baseline around 130's, moderate variability, and overall reassuring. Late decelerations have resolved and we will monitor strip at thi point. GRADER documented in this encounter H&P Notes Allen Amaya MD - 04/25/2012 7:20 PM CST GRADER documented in this encounter Consult Notes Verona Nix RN - 04/28/2012 12:10 PM CST follow up. Mom had to rest nipples last evening and pumped as pain was too great. Able to get back to the breasts within a few feedings with a little less pain. Mom knows she may need to pumpto heal nipples and she also said she may try the shield again later to see if it might help once her milk is in. Mom is using herbal cream to nipples and hydrogels. Encouraged Mom to call us PRN and plan phone follow up within one week after discharge. GRADER Verona Nix RN - 04/27/2012 12:20 PM CST visit. Mom has a hx of very sore nipples needing nipple shield with 1st baby. This baby isdoing the same and mom has blisters on the ends of the nipples. Assisted with latch and pain levels so high and unable to get the pain down so offered shield. Tired briefly s changing pain (maybe 5% different per mom). Enc mom to call next feeding but she nursed without help (I was tied up and could not come in at the time). Offered again for next feeding to see if I can assist for greater comfort. Mom knows she might have to pump to heal the nipples and try back on the breasts again. Encouraged momto call us PRN. I will also plan phone f/up for progress after d/c. GRADER documented in this encounter OR Notes OR Anesthesia - Allen Amaya MD - 04/28/2012 10:16 AM CST GRADER documented in this encounter Miscellaneous Notes Plan of Care - Vaishnavi Salgado RN - 04/28/2012 4:23 PM CST Pt discharged at 1610 with baby. Denies any pain. No meds given. GRADER Plan of Care - Dena Rebolledo RN - 04/28/2012 11:49 AM CST Problem: IP GENERAL POC-ADULT,OB,BEHAVIORAL FVCPM Goal: Individualization/Patient-Specific Goal (Adult,OB,Behavioral The patient and/or their artist representative will achieve their patient-specific goals related to the plan of care. The patient-specific goals include: have a successful discharge. Data: Vital signs within normal limits. checks within normal limits - see flow record. Patient eating and drinking normally. Patient able to empty bladder independently and is up ambulating.No apparent signs of infection. Perineum healing well. Patient performing self cares and is able to care for . Patient was seen social work today, was given information about post depression. Patient still has flat affect and seems irritable. Action: Patient medicated during the shift for nipple pain. See MAR. Patient reassessed within 1 hour after each medication and pain was improved - patient stated she was comfortable. Patient educationdone about latch, pain control options. See flow record. Response: Positive attachment behaviors observed with . Support persons present. Plan: Anticipate discharge to home later this afternoon. GRADER Plan of Care - Shirley Lauren RN - 04/28/2012 4:37 AM CST Problem: IP GENERAL POC-ADULT,OB,BEHAVIORAL FVCPM Goal: Individualization/Patient-Specific Goal (Adult,OB,Behavioral The patient and/or their artist representative will achieve their patient-specific goals related to the plan of care. The patient-specific goals include: breast feed every 2-3 hours, rest Outcome: No Change Stable post vag del. with some pain, but less than earlier. Baby fussy in the room, gassy. In NBN Between feedings so Mom could sleep. Anxious when baby cried, apologizing to baby. SRIDEVI Ruffin GRADER Plan of Care - Lynn Reid RN - 04/27/2012 8:40 PM CST Patient continues to pump and feed EBM via bottle. Patient is not longer in tears and seems to be coping with new plan of feeding baby. Using extra formula to meet babies feeding needs. Will continue to monitor. GRADER Plan of Care - Lynn Reid RN - 04/27/2012 5:53 PM CST Problem: IP GENERAL POC-ADULT,OB,BEHAVIORAL FVCPM Goal: Individualization/Patient-Specific Goal (Adult,OB,Behavioral The patient and/or their artist representative will achieve their patient-specific goals related to the plan of care. The patient-specific goals include: breast feed every 2-3 hours, rest Outcome: Improving Walked in room and patient was in tears. She was attempting with shield and stated herpain was 18/10. Patient stated that she wanted to start pumping or give formula because her baby wasstarving. Pumped for 10-15 minutes and got 20 mL's. Encouraged patient to continue pumping every 2-3hours. Patient states it is still painful to pump but its much more tolerable than breast feeding. Oxycodone and Ibuprofen given for intense nipple discomfort with relief. GRADER Plan of Care - Sasha Benson RN - 04/27/2012 9:45 AM CST Problem: IP GENERAL POC-ADULT,OB,BEHAVIORAL FVCPM Goal: Individualization/Patient-Specific Goal (Adult,OB,Behavioral The patient and/or their artist representative will achieve their patient-specific goals related to the plan of care. The patient-specific goals include: breast feed every 2-3 hours, rest Data: Vital signs within normal limits. checks within normal limits - see flow record. Patient eating and drinking normally. Patient able to empty bladder independently and is up ambulating.No apparent signs of infection. Perineum healing well. Patient performing self cares and is able to care for . Action: Patient medicated during the shift for pain and cramping. See MAR. Patient reassessed within1 hour after each medication and pain was improved - patient stated she was comfortable. Patient education done about . [place]ona from in to see patient. Gave patient nipple cream andhydrogel pads for nipple pain. See flow record. Response: Positive attachment behaviors observed with infant. present and supportive. Plan: Anticipate discharge on 04/28/12. Sasha Benson RN GRADER Plan of Care - Shirley Lauren RN - 04/27/2012 5:47 AM CST Problem: IP GENERAL POC-ADULT,OB,BEHAVIORAL FVCPM Goal: Individualization/Patient-Specific Goal (Adult,OB,Behavioral The patient and/or their artist representative will achieve their patient-specific goals related to the plan of care. The patient-specific goals include: breast feed every 2-3 hours, rest Outcome: No Change Stable post vag del. Having severe nipple pain when . Ibu helpful.SRIDVEI Ruffin GRADER Plan of Care - Akanksha Eisenberg RN - 04/27/2012 1:19 AM CST Problem: IP GENERAL POC-ADULT,OB,BEHAVIORAL FVCPM Goal: Individualization/Patient-Specific Goal (Adult,OB,Behavioral The patient and/or their artist representative will achieve their patient-specific goals related to the plan of care. The patient-specific goals include: breast feed every 2-3 hours, rest Report given LEELA Watson. GRADER Plan of Care - Vaishnavi Salgado RN - 04/26/2012 8:35 PM CST Problem: IP GENERAL POC-ADULT,OB,BEHAVIORAL FVCPM Goal: Individualization/Patient-Specific Goal (Adult,OB,Behavioral The patient and/or their artist representative will achieve their patient-specific goals related to the plan of care. The patient-specific goals include: breast feed every 2-3 hours, rest Voiding now without difficulty. Saline locked removed. Mom requested a nipple shield for . Has used nipple shield in the past. GRADER Plan of Care - Lynn Reid RN - 04/26/2012 3:11 PM CST Report given to Basilia Patton RN. GRADER Plan of Jacinda - Lynn Reid RN - 04/26/2012 2:53 PM CST Fundus firm, 1/U, small bleeding. Patient's leg sensation has improved, but still feels weak in leftleg. Bladder scan showed 876 mLs. Patient up to bathroom with assist of 2 - tolerated ok. Pt was able to urinate. Patient asked to call for assistance again when getting up to bathroom. GRADER Plan of Lynn Deluca RN - 04/26/2012 12:47 PM CST Problem: IP GENERAL POC-ADULT,OB,BEHAVIORAL FVCPM Goal: Individualization/Patient-Specific Goal (Adult,OB,Behavioral The patient and/or their artist representative will achieve their patient-specific goals related to the plan of care. The patient-specific goals include: breast feed every 2-3 hours, rest Outcome: No Change Care assumed from Joellen Quintana RN. Patient and spouse orientated to room, bassinet and safety of baby and self in hospital. Denies pain. Asked to call for assistance getting up to the bathroom for the first time. Left leg is very numb. GRADER Plan of Care - Marce Quintana RN - 04/26/2012 12:15 PM CST Data: Lacey Nolasco transferred to 443 via wheelchair at 1215. Baby transferred via parent's arms. Action: Receiving unit notified of transfer: Yes. Patient and family notified of room change. [facility] Belongings sent to receiving unit. Accompanied by Registered Nurse. Oriented patient to surroundings. Call light within reach. ID bands double-checked with receiving RN. Response: Patient tolerated transfer and is stable. GRADER L&D Delivery Note - Allen Amaya MD - 04/26/2012 10:38 AM BULB GRADER Lacey Nolasco is a 32 year [id number] female, 2 para 1 with LMP 07/29/11 and EDC 04/29/12 by 2nd trimester U/S, who was admitted for labor induction at 39 weeks gestation. Her care was at the [facility]] in [place]. course was complicated by abnormal NT with normal karyotype on CVS, elevated GCT with normal GTT, borderline macrosomia on growth scans,hydronephrosis, migraines and hemorrhoids.. Vaginal Group B Streptococcus culture was negative. Patient received 2 doses of cytotec for cervical ripening overnight. Patient underwent artificial rupture of membranes at 0645, yielding clear fluid. Cervix was 3.50.-2 at that time Her estimated weight was 4000gms. Oxytocin induction/augmentation was initiated per standard protocol for absent/inadequate labor. Patient received an epidural/narcotic injection for pain relief. The patient achieved complete dilation at 1000. She went on to deliver a 8 #, 11 oz male infant at 1012 by . Apgars were 9 at one minute and 9 at five minutes. The oropharynx was bulb suctioned on the perineum. There was a loose nuchal cord slipped easily prior to delivery of anterior shoulder. The placenta delivered spontaneously and intact at 1015. The patient had a first degree midline laceration. This was repaired with 3-0 monocryl. EBL for the delivery was 200cc. Dr. Jorge Amaya GRADER Provider Notification - Marce Quintana, LEELA - 04/26/2012 8:21 AM BULB GRADER 04/26/12 0815 Provider Notification Provider Name/Title Dr Amaya Method of Notification In Department Request Evaluate - Remote Notification Reason Decels;SVE Updated on FHR, including LD, SVE. Dr Amaya reviewed strip. GRADER Provider Notification - Eveline Willingham RN - 04/26/2012 7:24 AM CST 04/26/12 0646 Provider Notification Provider Name/Title Dr. Amaya Method of Notification At Bedside Request Evaluate in Person Notification Reason Labor Status Dr. Amaya at bedside. Ruptured membranes, clear fluid. reviewed strip. Continue to monitor GRADER Provider Notification - Eveline Willingham RN - 04/26/2012 6:09 AM CST 04/26/12 0600 Provider Notification Provider Name/Title Dr. Churchill Method of Notification In Department Request Evaluate - Remote Dr. Churchill in department and has reviewed strip GRADER Provider Notification - Eveline Willingham RN - 04/26/2012 5:20 AM CST 04/26/12 0517 Provider Notification Provider Name/Title Dr. Churchill Method of Notification Phone Request Evaluate in Person Notification Reason Sudhirs notified of late decelerations. Dr. Churchill coming in to evaluate in person GRADER Provider Notification - Becky Chong RN - 04/26/2012 2:51 AM CST 04/26/12 0247 Provider Notification Provider Name/Title Dr. Churchill Method of Notification Phone Request Evaluate - Remote Notification Reason Decels;Membrane Status;Labor Status;Uterine Activity;Pain;SVE No additional cytotec per MD GRADER Provider Notification - Eveline Willingham RN - 04/26/2012 1:27 AM CST 04/26/12 0105 Provider Notification Provider Name/Title Dr. Churchill Method of Notification Phone Request Evaluate - Remote Notification Reason Decels MD notified of prolonged decel into 60's, O2 administered, repositioned to trendelenburg. FHR recovered to a baseline of 125 will multiple accels. Plan is to continue monitor and place next dose of cytotec at 0430 GRADER Provider Notification - Eveline Willingham RN - 04/25/2012 11:58 PM BULB GRADER 04/25/12 1888 Comments Comments received report from Ceh Hartley RN GRADER Plan of Care - Che Rodriges RN - 04/25/2012 11:56 PM CST Report given to Eveline SWENSON. Patient aware of hand off care. Requested to rest with no bedside report. GRADER Plan of Care - Yolanda Jones RN - 04/25/2012 11:08 PM CST One late deceleration noted. Pt was leaning forward to adjust warm pack for back pain. Pain now a [address] Churchill in dept, ok for Fentanyl. No existing IV site. IV placed in left forearm without difficulty, however when pushing fentanyl, saline flush patient experienced pain and the flush met with some resistance. IV DC'd and another placed right forearm without difficulty. No pain or resistance with flush. Pt now able to get up after cytotec placement, up to bathroom, and to rocking chair for comfort. No further decelerations noted. Occasional contractions, some irritability, FHR, baseline 110-120's. GRADER Plan of Care - Che Rodriges, RN - 04/25/2012 7:50 PM CST Assumed care after report from Yolanda SWENSON. GRADER documented in this encounter Plan of Treatment Not on filedocumented as of this encounter Procedures Procedure Name Priority Date/Time Associated Diagnosis Comme nts GROUP B STREP PCR Routine 04/13/2012 Results fo r this procedure are i n the results section . RUBELLA ANTIBODY IGG Routine 09/23/2011 Results for this procedure are i n the results section . HIV 1 AND 2 ANTIBODY Routine 09/23/2011 Results for this ([facility]) procedure are i n the results section . HEPATITIS B SURFACE Routine 09/23/2011 Results for this ANTIGEN procedure are i n the results section . ANTI TREPONEMA Routine 09/23/2011 Results for t his procedure are i n the results section . documented in this encounter Results Group B strep PCR (04/13/2012) athologist [facility] Group B Strep negative PCR Patient Reported LAB - MICRO GENERAL ORDERABL ES Rubella antibody IgG (09/23/2011) athologist Signature Rubella [place] IgG immune Specimen (Source) Anatomical Location Collection Method / Collectio n Time Received Time / Laterality Volume Blood specimen (specimen) Patient Reported LAB - BLOOD ORDERABLES HIV 1 and 2 Antibody (09/23/2011) [facility] gist Method Time Signature HIV-1 & HIV-2 Antibody HIV 1&2 non reactive Antibody Specimen (Source) Anatomical Location Collection Method / Collectio n Time Received Time / Laterality Volume Blood specimen (specimen) Patient Reported LAB - BLOOD ORDERABLES Hepatitis B surface antigen (09/23/2011) athologist Signature Hep B Surface negative Agn Specimen (Source) Anatomical Location Collection Method / Collectio n Time Received Time / Laterality Volume Blood specimen (specimen) Patient Reported LAB - BLOOD ORDERABLES Anti treponema EIA (09/23/2011) [facility] gist Method Time Signature Treponema non reactive pallidum Antibody Specimen (Source) Anatomical Location Collection Method / Collectio n Time Received Time / Laterality Volume Blood specimen (specimen) Patient Reported LAB - BLOOD ORDERABLES documented in this encounter Visit Diagnoses Diagnosis Headache(784.0) - Primary Headache Vaginal delivery Normal delivery Labor and delivery, indication for care Unspecified indication for care or inter vention related to labor and delivery, unspecified as to episode of care Vaginal delivery Normal delivery documented in this encounter Administered Medications Inactive Administered Medications - up to 3 most recent administrations Medication Order MAR Action Action Date Dose Rate Site bupivacaine 0.125 % in NaCl 0.9% 0.125 % 250 mL EPIDURAL Drip SANGEETA BROOKE: cabinet override Absolutely no anticoa gulants, thrombolytics or antiplatelet medications or other opioid analgesics or other sedatives without prior notification of anesthesiology. Fo r CADD cassettes, pharmacy to send epidural tubing set Ref # [id number] (5.1mL)., 1 dose, Starting on 04/26/12 at 0339, Until 04/26/12 at 0408 bupivacaine 0.125 % in NaCl 0.9% 250 New Bag 04/26/2012 4:08 A M BULB GRADER 15 mLs 15 mL/hr mL EPIDURAL Drip at 15 mL/hr, EPIDURAL, CONTINUOUS, Absolutely no anticoagulants, thrombolytics or antiplatelet medications or other opioid analgesics or other sedatives without prior notification of anesthesiology. For CADD cassettes, pharmacy to send epidural tubing set Ref # [id number] (5.1mL)., Starting on 04/26/12 at 0345, Until 04/26/12 at 1033 docusate sodium (COLACE) capsule 100 mg Given 04/28/2012 8:08 AM BULB GRADER 100 mg 100 mg, Oral, 2 TIMES DAILY, First dose on 04/26/12 at 1045, To prevent constipation. Hold for loose stools. Given 04/27/2012 8:35 PM BULB GRADER 100 mg Given 04/27/2012 8:05 AM BULB GRADER 100 mg ePHEDrine in 0.9% NaCl injection (dilute d) 5 mg Given 04/26/2012 5:54 AM BULB GRADER 5 mg 5 mg, Intravenous, EVERY 3 MIN PRN, if SBP less than 100, Starting on 04/26/12 at 0342, For 5 doses, If unreponsive to Fluid Bolus (if ordered), administer Ephedrine. Repeat BP check every 2 mins until stable. If unreponsive to Ephedrine, page Anesthesia and start Hespan (if ordered). Given 04/26/2012 4:19 AM BULB GRADER 5 mg Given 04/26/2012 4:06 AM BULB GRADER 5 mg fentaNYL (SUBLIMAZE) injection 100 mcg Given 04/25/2012 10:10 PM BULB GRADER 100 mcg 100 mcg, Intravenous, ONCE, On 04/25/12 at 2200, For 1 dose hydrOXYzine (ATARAX) tablet 50 mg Given 04/26/2012 1:12 AM BULB GRADER 50 mg 50 mg, Oral, EVERY 6 HOURS PRN, other, sleep, Starting on 04/25/12 at 2253 ibuprofen (ADVIL,MOTRIN) tablet 400-800 mg Given 04/28/2012 8:08 AM BULB GRADER 800 mg 400-800 mg, Oral, EVERY 6 HOURS PRN, other, cramping, Starting on 04/26/12 at 1032, Max dose 3200 mg/day. Given 04/28/2012 12:35 AM BULB GRADER 800 mg Given 04/27/2012 3:54 PM BULB GRADER 800 mg lactated ringers BOLUS 1,000 mL New Bag 04/26/2012 3:39 AM BULB GRADER 1,000 mLs mL/hr Intravenous, 1,000 mL, ONCE PRN, IF patient to have epidural or intrathecal narcotics and NOT pre-eclamptic, Starting on 04/26/12 at 0202, For 1 dose, IV bolus 15-30 min prior to epidural, then IV fluids per labor orders lactated ringers BOLUS 250 mL Rate/Dose Change 04/26/2012 7:57 AM BULB GRADER 250 mLs mL/hr Intravenous, 250 mL, ONCE PRN, other, hypotension, Starting on 04/26/12 at 0342, For 1 dose, If no improvement in BP with repositioning(if ordered) , administer IV bolus as ordered. Treat for SBP < 100 or drop in BP by 20%. If unresponsive to Fluid Bolus, administer Ephedrine (if ordered) or page Anesthesia. lactated ringers BOLUS 500 mL New Bag 04/26/2012 5:58 AM BULB GRADER 500 mLs mL/hr Intravenous, 500 mL, ONCE PRN, per policy for intrauterine resuscitation, Starting on 04/26/12 at 0202, For 1 dose lactated ringers infusion New Bag 04/26/2012 12:46 AM BULB GRADER 1,000 mLs 125 mL/hr at 125 mL/hr, Intravenous, CONTINUOUS, Starting on 04/26/12 at 0215, Until 04/26/12 at 1033 misoprostol (CYTOTEC) tablet 25 mcg Given 04/26/2012 12:32 AM BULB GRADER 25 mcg 25 mcg, Vaginal, EVERY 4 HOURS PRN, cervical ripening, Starting on 04/25/12 at 2013, Insert dose into posterior vaginal fornix. May repeat, up to 6 doses. Maximum total dose = 150 mcg. Discontinue further dosing if: -Uterine tachysystole (5 or more contractions in 10 minutes over a 30 minute time frame) -Cervical ripening achieved - Rowan Score greater than 5 if multipara; greater than 8 if primapara -Active vaginal bleeding -Active labor -Non-reassuring FHR tracing -Adverse maternal reactions (i.e., fever or nausea) Provider: Delay oxytocin induction/augmentation at least 4 hours after the last dose of misoprostol (CYTOTEC). Given 04/25/2012 8:33 PM BULB GRADER 25 mcg oxyCODONE (ROXICODONE) immediate release tablet Given 04/28/2012 8:08 AM BULB GRADER 5 mg 5-10 mg 5-10 mg, Oral, EVERY 3 HOURS PRN, moderate to severe pain, Starting on 04/26/12 at 1032 Given 04/28/2012 4:59 AM BULB GRADER 5 mg Given 04/28/2012 12:35 AM BULB GRADER 10 mg oxytocin (PITOCIN) 20 units in New Bag 04/26/2012 10:15 AM BULB GRADER 1,0 00 mLs mL/hr 0.9% NaCl 1000 mL 0-1,000 mL, Intravenous, CONTINUOUS PRN, provider discretion to treat or prevent uterine atony, Starting on 04/26/12 at 0202, Notify provider IF uterine atony and clarify with provider medication preference. IV to run per provider discretion to treat or prevent uterine atony. IV to continue until patient stable. Discontinue or saline lock per nurse discretion. multivitamin plus iron tablet 1 Given 04/25/2012 8:33 P M BULB GRADER 1 tablet tablet 1 tablet, Oral, DAILY, First dose on 04/25/12 at 2014 sodium chloride (PF) 0.9% PF flush 3 mL Given 04/26/2012 12:37 AM BULB GRADER 3 mLs 3 mL, Intravenous, EVERY 8 HOURS, First dose on 04/25/12 at 2014, And Q1H PRN, to lock peripheral IV dormant line. documented in this encounter Active and Recently Administered Medications Times are shown in BULB GRADER. Scheduled Medication Order 04/26/2012 04/27/2012 04/28/2012 docusate sodium (COLACE) capsule 100 mg (CANCELED) 111 2 (Given - Provider: Marce Quintana, LEELA)1949 (Given - Provider: Vaishnavi Salgado, LEELA)203 (Canceled Entry - Provider: Vaishnavi Salgado RN) 0805 (Given - Provider: Sasha Benson, RN)203 (Given - Provider: Lynn Reid, LEELA) 0808 (Given - Provider: Dena Rebolledo RN) 100 mg, Oral, 2 TIMES DAILY, First dose on 04/26/12 at 1045, To prevent constipation. Hold for loose stools. sodium chloride (PF) 0.9% PF flush 3 mL (CANCELED) 003 7 (Given - Provider: Eveline Willingham, LEELA)1033 (z Missed (do not use) - Provider: Marce Quintana RN - Reason: IV Infusing) 3 mL, Intravenous, EVERY 8 HOURS, First dose on 04/25/12 at 2014, And Q1H PRN, to lock peripheral IV dormant line. Continuous Medication Order 04/26/2012 04/27/2012 04/28/2012 bupivacaine 0.125 % in NaCl 0.9% 250 mL EPIDURAL Drip (CANCELED) 0408 (New Bag - Provider: Eveline Willingham, LEELA) at 15 mL/hr, EPIDURAL, CONTINUOUS, Absol utely no anticoagulants, thrombolytics or antiplatelet medications or other opioid analgesics or other sedatives without prior notification of anesthesiology. For CADD cassettes, pharmacy to send epidural tubing set Ref # [id number] (5.1mL). lactated ringers infusion (CANCELED) 0046 (New Bag - P rovider: Eveline Willingham RN - Comment: charted late) at 125 mL/hr, Intravenous, CONTINUOUS PRN Medication Order 04/26/2012 04/27/2012 04/28/2012 ePHEDrine in 0.9% NaCl injection (diluted) 5 mg (CANCE LED) 0406 (Given - Provider: Eveline Willingham, RN)0419 (Given - Provider: Eveline Willingham, LEELA)0554 (Given - Provider: Eveline Willingham, LEELA) 5 mg, Intravenous, EVERY 3 MIN PRN, if S BP less than 100, Starting 04/26/12 at 0342, For 5 doses, If unreponsive to Fluid Bolus (if ordered), administer Ephedrine. Repeat BP check every 2 mins until stable. If unreponsive to Ephedrine, pag e Anesthesia and start Hespan (if ordered). hydrOXYzine (ATARAX) tablet 50 mg (CANCELED) 0112 (Giv en - Provider: Eveline Willingham RN) 50 mg, Oral, EVERY 6 HOURS PRN, other, sleep, Starting Sat at 2253 ibuprofen (ADVIL,MOTRIN) tablet 400-800 mg 1034 (Given - Provider: Marce Quintana, LEELA)1950 (Given - Provider: Vaishnavi Salgado RN) 0331 (Given - Provider: Shirley Lauren, LEELA)1554 (Given - Provider: Lynn Reid, LEELA) 0035 (Given - Provider: Shirley Lauren, LEELA)0808 (Given - Provider: Dena Rebolledo RN) 400-800 mg, Oral, EVERY 6 HOURS PRN, oth er, cramping, Starting 04/26/12 at 1032, Max dose 3200 mg/day. lactated ringers BOLUS 1,000 mL (COMPLETED) 033 (New Bag - Provider: Eveline Willingham RN) Intravenous, 1,000 mL, ONCE PRN, IF gildardo ent to have epidural or intrathecal narcotics and NOT pre-eclamptic, Starting 04/26/12 at 0202, For 1 dose, IV bolus 15-30 min prior to epidural, then IV fluids per labor orders lactated ringers BOLUS 250 mL (CANCELED) 0757 (Rate/Do se Change - Provider: Marce Quintana, RN) Intravenous, 250 mL, ONCE PRN, other, hy potension, Starting 04/26/12 at 0342, For 1 dose, If no improvement in BP with repositioning(if ordered) , administer IV bolus as ordered. Treat for SBP < 1 00 or drop in BP by 20%. If unresponsive to Fluid Bolus, administer Ephedrine (if ordered) or page Anesthesia. lactated ringers BOLUS 500 mL (COMPLETED) 0558 (New Ba g - Provider: Eveline Willingham, RN) Intravenous, 500 mL, ONCE PRN, per polic y for intrauterine resuscitation, Starting 04/26/12 at 0202, For 1 dose misoprostol (CYTOTEC) tablet 25 mcg (CANCELED) 003 (G iven - Provider: Eveline Willingham, RN) 25 mcg, Vaginal, EVERY 4 HOURS PRN, cerv ical ripening, Starting 04/25/12 at 2013, Insert dose into posterior vaginal fornix. May repeat, up to 6 doses. Maximum total dose = 150 mcg. Discontinue furth er dosing if: -Uterine tachysystole (5 o r more contractions in 10 minutes over a 30 minute time frame) -Cervical ripening achieved - Rowan Score greater than 5 if multipara; greater than 8 if primapara -Active vaginal bleeding -Active labor -Non-reassuring FHR tracing -Adverse maternal reactions (i.e., fever or nausea) Provider: Delay oxytocin induction/augmentation at least 4 hours after the last dose of misoprostol (CYTOTEC). oxyCODONE (ROXICODONE) immediate release tablet 5-10 m g 1251 (Given - Provider: Lynn Reid, LEELA) 1554 (Given - Provider: Lynn Reid, RN) 0035 (Giv en - Provider: Shirley Lauren, LEELA)0459 (Given - Provider: Shirley Lauren, LEELA)0808 (Given - Provider: Dena Rebolledo RN) 5-10 mg, Oral, EVERY 3 HOURS PRN, modera te to severe pain, Starting 04/26/12 at 1032 oxytocin (PITOCIN) 20 units in 0.9% NaCl 1000 mL (CANC ELED) 1015 (New Bag - Provider: Marce Quintana, LEELA - Comment: started after delivery of placenta) 0-1,000 mL, Intravenous, CONTINUOUS PRN, provider discretion to treat or prevent uterine atony, Starting 04/26/12 at 0202, Notify provider IF uterine atony and clarify with provider medication prefer ence. IV to run per provider discretion to treat or prevent uterine atony. IV to continue until patient stable. Discontinue or saline lock per nurse discretion. documented in this encounter Care Teams Coroner Technician Relationship Specialty Start Date End Date Ghanshyam Hassan PCP - General 04/08/12 11/14/[id number] [place] [id number] documented as of this encounter
--- OUTSIDE RECORDS SUMMARY | 2022-03-23 17:27 | XMS_ITS | Encounter Summary ---
:1980 Author Organization [place] Address [address] [place] [address]. [place] [address] Care Team Providers Name Role Phone Ghanshyam Hassan Primary Care Provider [phone] Reason for Visit Auth/Cert - Closed Specialty Diagnoses / Procedures Referred By Contact Refer red To Contact Surgery Diagnoses Menorrhagia, Dysmenorrhea, Endometrosis Rh Periop Serv ices Procedures COMBINED DILATION AND CURETTAGE SUCTION, ABLATE ENDOMETRIUM NOVASURE [address] [place], [place] [address] Phone: Fax: Referral ID Status Reason Start Date Expiration Date Visits Requ ested Visits Authorized [id number] Closed 1 1 Encounter Details Date Type Department Care Team Description 04/27/2013 Surgery [facility] Stephen Mahajan INED DILATION AND [place] [facility] kelly Beck MD CURETTAGE SUCTION, [address] ABLATE ENDOMETRIUM [place], [place] [address] NOVASURE [id number] [phone] Surgery Details Date/Time Status Location OR Service Patient Case Case Traum a Class Class Type Case? 04/27/13 8:40 Posted [facility] OR OR 09 Gynecology Same Day AM Surgery Panel 1 Procedure LRB Anes Op Region Wound Class Commen ts COMBINED DILATION AND N/A General Vagina II-Clean Conta minated COMBINED DILATION CURETTAGE SUCTION, AND CU RETTAGE ABLATE ENDOMETRIUM SUCTIO N, ABLATE NOVASURE ENDOMETRIUM NO VASURE Surgeon Surgeon Role Service Panel Stephen Mahajan MD Primary Gynecology 1 Special Needs 5'6, 181# per h and p documented in this encounter Social History Tobacco [...] Sign Reading Time Taken Comments Blood Pressure 100/67 04/27/2013 9:52 AM [employer] Pulse - - Temperature 36.8 ??C (98.2 ??F) 04/27/2013 9:22 AM [employer]PER[employer] Respiratory Rate 19 04/27/2013 9:52 AM [employer]PER[employer]OR Oxygen Saturation 100% 04/27/2013 9:52 AM [employer] SUPER[employer]OR Inhaled Oxygen Concentration - - Weight 78 kg (172 lb) 04/27/2013 7:53 AM [employer] SUPER[employer] Height 167.6 cm (5' 6) 04/27/2013 7:53 AM [employer] SUPER[employer]OR Body Mass Index 27.76 04/27/2013 7:53 AM [employer] SUPER[employer]OR documented in this encounter Discharge Instructions Discharge InstructionsJessica Riley RN - 04/27/2013 11:44 AM [employer] SUPERVISOR HAD IV TYLENOL 1,000 MG IV, MAX IN 24 HRS = 4,000 MG DILATION AND CURETTAGE AND DILATION AND EVACUATION DISCHARGE INSTRUCTIONS PLEASE RETURN TO THE CLINIC IN: ____1 WEEK ____2 WEEKS ____4 WEEKS ____6 WEEKS MAKE THIS APPOINTMENT AFTER YOU GET HOME IF IT HAS NOT ALREADY BEEN SCHEDULED. DO NOT DRIVE A CAR, DRINK ALCOHOL OR USE MACHINERY FOR THE NEXT 24 HOURS. YOU SHOULD WAIT UNTIL YOU HAVE RECOVERED BEFORE MAKING ANY IMPORTANT DECISIONS. PAIN AND DISCOMFORT YOU MAY HAVE CRAMPS OR A LOW BACKACHE FOR 24 TO 48 HOURS. TYLENOL (ACETAMINOPHEN) OR MOTRIN (IBUPROFEN) MAY HELP, OR YOUR DOCTOR MAY GIVE YOU PAIN MEDICINE. CALL YOUR DOCTOR IF PAIN CANNOT BE CONTROLLED. YOU MAY FEEL DROWSY AND WEAK FOR A DAY OR TWO. VAGINAL DISCHARGE YOU MAY HAVE SOME BLEEDING OR DISCHARGE FOR UP TO TWO WEEKS. DO NOT DOUCHE, USE TAMPONS OR HAVE SEX (INTERCOURSE) IN THE FIRST WEEK. CALL YOUR DOCTOR IF YOU SOAK MORE THAN ONE MAXI PAD (SANITARY [place]APKIN) PER HOUR, OR IF YOU PASS LARGE BLOOD CLOTS. OTHER SYMPTOMS YOU MAY HAVE A LOW FEVER FOR THE FIRST TWO DAYS. CALL YOUR DOCTOR IF YOUR FEVER GOES OVER 101 DEGREES FAHRENHEIT. IF YOU HAVE NAUSEA (FEEL SICK TO YOUR STOMACH), STAY IN BED. TRY DRINKING A SMALL AMOUNT 7-UP, TEA OR SOUP. DIET AND ACTIVITY EAT LIGHT MEALS AND DRINK PLENTY OF FLUIDS FOR THE FIRST 24 HOURS (OR LONGER, IF YOU HAVE NAUSEA). YOU MAY BATHE, SHOWER AND CLIMB STAIRS. MOST WOMEN CAN RETURN TO WORK AFTER 24 HOURS. YOU MAY GO BACK TO YOUR OTHER ACTIVITIES AFTER YOUR PAIN GOES AWAY. GENERAL ANESTHESIA OR SEDATION ADULT DISCHARGE INSTRUCTIONS SPECIAL PRECAUTIONS FOR 24 HOURS AFTER SURGERY IT IS NOT UNUSUAL TO FEEL LIGHT-HEADED OR FAINT, UP TO 24 HOURS AFTER SURGERY OR WHILE TAKING PAIN MEDICATION. IF YOU HAVE THESE SYMPTOMS; SIT FOR A FEW MINUTES BEFORE STANDING AND HAVE SOMEONE ASSIST YOU WHEN YOU GET UP TO WALK OR USE THE BATHROOM. YOU SHOULD REST AND RELAX FOR THE NEXT 24 HOURS AND YOU MUST MAKE ARRANGEMENTS TO HAVE SOMEONE STAY WITH YOU FOR AT LEAST 24 HOURS AFTER YOUR DISCHARGE. AVOID HAZARDOUS AND STRENUOUS ACTIVITIES. DO NOTMAKE IMPORTANT DECISIONS FOR [address] ANY VEHICLE OR OPERATE MECHANICAL EQUIPMENT FOR 24 HOURS FOLLOWING THE END OF YOUR SURGERY. EVEN THOUGH YOU MAY FEEL NORMAL, YOUR REACTIONS MAY BE AFFECTED BY THE MEDICATION YOU HAVE RECEIVED. DO NOT DRINK ALCOHOLIC BEVERAGES FOR 24 HOURS FOLLOWING YOUR SURGERY. DRINK CLEAR LIQUIDS (APPLE JUICE, LIT RUDOLPH, 7-UP, BROTH, ETC.). PROGRESS TO YOUR REGULAR DIET YOU FEEL ABLE. YOU MAY HAVE A DRY MOUTH, A SORE THROAT, MUSCLES ACHES OR TROUBLE SLEEPING. THESE SHOULD GO AWAY AFTER 24 HOURS. CALL YOUR DOCTOR FOR ANY OF THE FOLLOWING: SIGNS OF INFECTION (FEVER, GROWING TENDERNESS AT THE SURGERY SITE, A LARGE AMOUNT OF DRAINAGE OR BLEEDING, SEVERE PAIN, FOUL-SMELLING DRAINAGE, REDNESS OR SWELLING. IT HAS BEEN OVER 8 TO 10 HOURS SINCE SURGERY AND YOU ARE STILL NOT ABLE TO URINATE (PASS WATER). .rh [employer] SAL[employer] SUPERVISOR AttachmentsThe following attachments cannot be sent through Care Everywhere. Endometrial Ablationdocumented in this encounter Medications at Time of Discharge Medication Sig Dispensed Refills Start Date End Date penicillin V potassium Take 1 tablet (500 30 tablet 0 04/2705/07/2013 (VEETID) 500 MG mg) by mouth 3 times tabletIndications: Strep daily for 10 days pharyngitis oxyCODONE (ROXICODONE) 5 Take 1-2 tablets 30 tablet 0 04/2705/23/2015 MG immediate release (5-10 mg) by mouth tabletIndications: every 3 hours as Menorrhagia needed for pain or other (Moderate to Severe) documented as of this encounter Progress Notes Millie Provider - 04/28/2013 10:57 AM CST [employer] SAL[employer]PER[employer]OR documented in this encounter H&P Notes Millie Provider - 04/22/2013 4:19 PM CST [employer]PER[employer] documented in this encounter Miscellaneous Notes Brief Op Note - Stephen Mahajan MD - 04/27/2013 9:23 AM CST [facility] Brief Operative Note Pre-operative diagnosis: Menorrhagia, Dysmenorrhea, Endometrosis Post-operative diagnosis s/p endometrial ablation Procedure: Procedure(s) with comments: COMBINED DILATION AND CURETTAGE SUCTION, ABLATE ENDOMETRIUM NOVASURE - COMBINED DILATION AND CURETTAGE SUCTION, ABLATE ENDOMETRIUM NOVASURE Surgeon(s): Surgeon(s) and Role: * Stephen Mahajan MD - Primary Estimated blood loss: 5 mL Specimens: ID Type Source Tests Collected by Time Destination A [place] [facility] [place] SURGICAL PATHOLOGY EXAM Stephen Mahajan MD 04/27/2013 9:04 AM Pathology Findings: 6.0 x 4.5 cm cavity, scant currettings [employer]PER[employer] Op Note - Jose Luis, Stephen Beck MD - 04/27/2013 9:22 AM CST PREOPERATIVE DIAGNOSES: Menorrhagia, dysmenorrhea. POSTOPERATIVE DIAGNOSES: Menorrhagia, dysmenorrhea. PROCEDURE: Suction dilation and curettage, NovaSure endometrial ablation. SURGEON: Stephen Mahajan MD ANESTHESIA: General. INDICATIONS: Shamir Nolasco is a 33-year-old female, para 2, status post vasectomy, with long-standing menorrhagia and dysmenorrhea which has been unresponsive to hormonal therapy. Risks, benefits and alternatives of management of her present condition were discussed including further attempts at hormonal therapy, Mirena IUD, D&C with or without endometrial ablation as well as definitive therapy in the form of hysterectomy. After a thorough discussion of all options and she opts for D&C, NovaSure ablation. The procedure was explained in detail, options reviewed. OPERATIVE FINDINGS: Examination under anesthesia demonstrated midline mobile uterus. There were no adnexal masses appreciated. At the time of D&C, there was a modest amount of endometrial curettings identified. The uterine cavity appeared without focal abnormality. The uterine dimensions were ascertained as a length of 6.0 and a width of 4.5 cm. OPERATIVE PROCEDURE: After adequate general anesthesia was obtained, the patient was placed in the dorsal lithotomy position, prepped and draped in the usual sterile fashion. The bladder was sterilely catheterized for a scant amount of clear urine. A weighted speculum was inserted and the cervix visualized. The anterior lip of the cervix was grasped with a single-tooth tenaculum. The cervix came to almost the level of the introitus without traction. The uterus was sounded to 10 cm in a fairly neutral position. A series of Hegar dilators were passed sequentially through the endocervix up to 8 mm meeting minimal resistance. A 7 mm curved suction curette was then advanced to the fundus and the uterine contents removed via suction curettage, collected and submitted to Pathology. The uterine length was ascertained using a sound. The NovaSure device was then inserted to the fundus and opened to a maximum of 4.5 cm. The device was then engaged at a power setting of 149 for 1 minute and 11 seconds. The device was then drawn back into the sheath and removed without difficulty. The tenaculum was removed from the anterior lip of the cervix and no bleeding was identified. The speculum was removed from the vagina. The patient recalled from general anesthesia and taken to recovery room in satisfactory condition. There were no intraoperative complications. Estimated blood loss was minimal. STEPHEN MAHAJAN MD MT: [id number] Name: SHAMIR NOLASCO MRN: [id number] Account: [id number] : 1980 Procedure Date: 04/27/2013 Document: [id number] [employer] documented in this encounter Plan of Treatment Not on filedocumented as of this encounter Procedures Procedure Name Priority Date/Time Associated Diagnosis Comme nts RAPID STREP SCREEN STAT 04/27/2013 9:45 AM Res ults for this THROAT SWAB [employer] procedure are i n the results section. SURGICAL PATHOLOGY Routine 04/27/2013 9:04 AM Res ults for this EXAM [employer] procedure are i n the results section. COMBINED DILATION 04/27/2013 8:40 AM s/p endometrial AND CURETTAGE [employer]ALT [employer]PERVISOR ablation SUCTION, ABLATE ENDOMETRIUM NOVASURE Special Needs 5'6, 181# per h and p HEMOGLOBIN STAT 04/27/2013 8:40 AM [employer]ALT [employer] SUPERVISOR Resul ts for this procedure are in the results sec tion. HCG QUALITATIVE URINE STAT 04/27/2013 7:55 AM [employer]PER[employer]OR Results for this procedure are in the results sec tion. documented in this encounter Results (ABNORMAL) Rapid strep screen (04/27/2013 9:45 AM [employer]PERVISOR) Component Value Ref Test Analysis Performed At [facility] Range Method Time Signature Specimen Throat [facility] LAB Rapid Strep A POSITIVE: Group [place] Screen A Streptococcal [facility] antigen detected HOSPITAL LAB by immunoassay. (A) Micro Report FINAL 04/27/2013 [facility] LAB Specimen Anatomical Collection Method Collection Time Receive d Time (Source) Location / / Volume Laterality Specimen from 04/27/2013 9:45 AM 04/27/19 14 throat [employer] 10:35 AM [employer]PER[employer]OR (specimen) Stephen Mahajan MD LAB - MICRO GENERAL ORDERABL ES Performing Organization Address City/State/ZIP Code Phon e Number M [facility] [address], [place] [address] [facility] Surgical pathology exam (04/27/2013 9:04 AM [employer]PERVISOR) Component Value Ref Test Analysis Performed At Patholo gist Range Method Time Signature Copath Report Patient Name: SHAMIR NOLASCO MR#: [id number] Specimen #: [id number] Collected: 04/27/2013 Received: 04/27/2013 Reported: 04/28/2013 11:37 Ordering Phy(s): STEPHEN MAHAJAN SPECIMEN(S): Endometrial curettings FINAL DIAGNOSIS: Endometrium, curettage - Proliferative endometrium. ??Negati ve for hyperplasia and malignancy. Electronically signed out by: Kyle Conner M.D. CLINICAL HISTORY: Menorrhagia and dysmenorrhea. GROSS: The specimen is labeled endometrial curettage and consists of an aggregate of reddish tissue in a formalin-fixed Vacutainer a ggregating to 1.5 x 1 x 0.3 cm. ??Entirely submitted. ??TJK/kd MICROSCOPIC: There is proliferative endometrium and some basalis. ??No po lyp or obvious stromal breakdown is identified. TJK/kd DT/04-28-13 TESTING LAB LOCATION: [address] ??[id number] COLLECTION SITE: Client: [facility] Location: [facility] (R) Specimen Anatomical Collection Method Collection Time Receive d Time (Source) Location / / Volume Laterality 04/27/2013 9:04 AM 4 [employer] 10:10 AM [employer]ALT [employer]PER[employer]OR Stephen Mahajan MD LAB - [facility] Performing Organization Address City/State/ZIP Code Phon e Number [place] Hemoglobin (04/27/2013 8:40 AM MALT [employer]PER[employer]) P athologist Signature Hemoglobin 12.3 11.7 - 15.7 [facility] g/dL [facility] Specimen Anatomical Collection Method Collection Time Receive d Time (Source) Location / / Volume Laterality Blood specimen 04/27/2013 8:40 AM 014 8:47 (specimen) [employer] AM MALT [employer]PER[employer]OR Parish Bill MD LAB - BLOOD ORDERABLES Performing Organization Address City/State/ZIP Code Phon e Number Patricia [facility] [address] [place], [place] [address] [facility] HCG qualitative urine (04/27/2013 7:55 AM [employer]PERVISOR) P athologist Signature HCG Qual Urine Negative [facility] Specimen Anatomical Collection Method Collection Time Receive d Time (Source) Location / / Volume Laterality Urine specimen URINE SPECIMEN / 04/27/2013 7:55 AM 8:07 (specimen) Unknown [employer] AM [employer]PER[employer] Stephen Mahajan MD LAB - URINE ORDERABLES Performing Organization Address City/State/ZIP Code Phon e Number Patricia [facility] [address] [place], [place] [address] [facility] documented in this encounter Visit Diagnoses Not on filedocumented in this encounter Administered Medications Inactive Administered Medications - up to 3 most recent administrations Medication Order MAR Action Action Date Dose Rate Site acetaminophen (OFIRMEV) 10 Given 04/27/2013 9:39 AM 1,000 mg 4 00 mL/hr mg/mL infusion 1,000 mg [employer] 1,000 mg, Intravenous, at 400 mL/hr, ONCE PRN, other, if pain relief not effective after narcotic dose, Administer over 15 Minutes, Starting on Fri04/27/13 at 0930, For 1 dose, Maximum dose of acetaminophen is 4000 mg from all sources., PACU/Phase II ePHEDrine injection 25 mg Given 04/27/2013 12:12 PM [employer] 25 mg Righ t Ventrogluteal 25 mg, Intramuscular, ONCE, On Fri04/27/13 at 1215, For 1 dose, Phase ll fentaNYL (SUBLIMAZE) injection 25-50 mcg Given 04/27/2013 10:25 AM [employer]PER[employer]OR 50 mcg 25-50 mcg, Intravenous, EVERY 2 MIN PRN, other, acute pain while in PACU., Starting on Fri04/27/13 at 0929, MAX cumulative dose = 250 mcg. Use Fentanyl initially, as a short acting agent for acute pain control. If insufficient, or a longer acting agent is needed, begin Morphine or Hydromorphone if ordered., PACU Given 04/27/2013 10:04 AM [employer]PER[employer]OR 50 mcg Given 04/27/2013 9:50 AM [employer]PER[employer]OR 50 mcg HYDROmorphone (PF) (DILAUDID) injection Given 04/27/2013 10:12 A M [employer]PER[employer]OR 0.2 mg 0.3-0.5 mg 0.3-0.5 mg, Intravenous, EVERY 10 MIN PRN, moderate to severe pain, acute pain.?May administer if RR is > 10 , Starting on Fri04/27/13 at 0930, If fentanyl is also ordered, use HYDROmorphone if pain control insufficient with fentanyl or a longer acting agent is needed. Max cumulative dose = 2 mg , PACU/Phase II lactated ringers infusion New Bag 04/27/2013 11:55 AM [employer] SUPERVISOR 1,000 mLs 100 mL/hr at 100 mL/hr, Intravenous, CONTINUOUS, Continue until IV catheter is weaned, PACU/Phase II, Starting on Fri04/27/13 at 0945, Until Fri04/27/13 at 1533 ondansetron (ZOFRAN) injection 4 mg Given 04/27/2013 10:38 AM [employer]PER[employer]OR 4 mg 4 mg, Intravenous, EVERY 30 MIN PRN, nausea, vomiting, Administer over 2-5 Minutes, Starting on Fri04/27/13 at 0930, For 2 doses, MAX total dose = 8 mg, including OR dosing. This is step 1 of the nausea and vomiting protocol. If not resolved in 15 minutes, then go to step 2 (Prochlorperazine if ordered)., PACU/Phase II oxyCODONE (ROXICODONE) immediate release tablet Given 04/27/2013 1:03 PM [employer]PER[employer]OR 5 mg 5-10 mg 5-10 mg, Oral, ONCE PRN, moderate to severe pain, Starting on Fri04/27/13 at 0930, For 1 dose, One time prior to discharge., Post-procedure promethazine (PHENERGAN) Given 04/27/2013 12:12 PM [employer]PER[employer]OR 25 mg Right Ventrogluteal injection 25 mg 25 mg, Intramuscular, ONCE, On Fri04/27/13 at 1215, For 1 dose, WARNING FOR IV ADMINISTRATION: Intra-arterial inj. causes tissue necrosis. STOP administration if pain or discomfort occurs. IMPORTANT: FOR IV administration: Nurse to dilute 25 mg with 10 mL of normal saline in a syringe. Resulting concentration = 2.5 mg/ mL. Administer over 3-5 minutes (Max of 25 mg/minute).??, Phase ll documented in this encounter Active and Recently Administered Medications Times are shown in [employer]OR. Scheduled Medication Order 04/25/2013 04/26/2013 04/27/2013 ePHEDrine injection 25 mg (COMPLETED) 1212 (Given - Provider: Jessica Riley RN) 25 mg, Intramuscular, ONCE, 04/27/13 at 1215, For 1 dose, Pha se ll promethazine (PHENERGAN) injection 25 mg (COMPLETED) 1212 (Given - Provider: Jessica Riley RN) 25 mg, Intramuscular, ONCE, 04/27/13 at 1215, For 1 dose, WARNING FOR IV ADMINISTRATION: Intra-arterial inj. causes tissue necrosis. STOP administration if pain or discomfort occurs. IMPORTANT: F OR IV administration: Nurse to dilute 25 mg with 10 mL of normal saline in a syringe. Resulting concentration = 2.5 mg/ mL. Administer over 3-5 minutes (Max of 25 mg/minute).??, Phase ll Continuous Medication Order 04/25/2013 04/26/2013 04/27/2013 lactated ringers infusion (CANCELED) 1155 (New Bag - Provider: Jessica Riley RN) at 100 mL/hr, Intravenous, CONTINUOUS, C ontinue until IV catheter is weaned, PACU/Phase II, Starting Fri04/27/13 at 0945, Until Fri04/27/13 at 1533 PRN Medication Order 04/25/2013 04/26/2013 04/27/2013 acetaminophen (OFIRMEV) 10 mg/mL infusion 1,000 mg (COMPLETED) 0939 (Given - Provider: Ruthie Armstrong, LEELA) 1,000 mg, Intravenous, at 400 mL/hr, ONC E PRN, other, if pain relief not effective after narcotic dose, Administer over 15 Minutes, Starting Fri04/27/13 at 0930, For 1 dose, Maximum dose of acetaminophen is 4000 mg from all sources., PACU/Phase II fentaNYL (SUBLIMAZE) injection 25-50 mcg (CANCELED) 0950 (Given - Provider: Jessica Riley RN)1004 (Given - Provider: Jessica Riley RN)1025 (Given - Provider: Jessica Riley RN) 25-50 mcg, Intravenous, EVERY 2 MIN PRN, other, acute pain while in PACU., Starting Fri04/27/13 at 0929, MAX cumulative dose = 250 mcg. Use Fentanyl initially, as a short acting agent for acute pain con trol. If insufficient, or a longer actin g agent is needed, begin Morphine or Hydromorphone if ordered., PACU HYDROmorphone (PF) (DILAUDID) injection 0.3-0.5 mg (CANCELED) 1012 (Given - Provider: Jessica Riley RN) 0.3-0.5 mg, Intravenous, EVERY 10 MIN MN N, moderate to severe pain, acute pain.?May administer if RR is > 10 , Starting Fri04/27/13 at 0930, If fentanyl is also ordered, use HYDROmorphone if pain control insufficient with fentanyl or a longer acting agent is needed. Max cumulative dose = 2 mg , PACU/Phase II ondansetron (ZOFRAN) injection 4 mg (CANCELED) 1038 (Given - Provider: Jessica Riley RN) 4 mg, Intravenous, EVERY 30 MIN PRN, cinthia sea, vomiting, Administer over 2-5 Minutes, Starting Fri04/27/13 at 0930, For 2 doses, MAX total dose = 8 mg, including OR dosing. This is step 1 of the nausea an d vomiting protocol. If not resolved in 15 minutes, then go to step 2 (Prochlorperazine if ordered)., PACU/Phase II oxyCODONE (ROXICODONE) immediate release tablet 5-10 mg (COMPLET ED) 1303 (Given - Provider: Jessica Riley, LEELA) 5-10 mg, Oral, ONCE PRN, moderate to sev ere pain, Starting Fri04/27/13 at 0930, For 1 dose, One time prior to discharge., Post-procedure documented in this encounter Care Teams Pharmaceutical Sales Representative Relationship Specialty Start Date End Date Ghanshyam Hassan PCP - General 04/08/12 11/14/18 [id number] [place] [id number] documented as of this encounter
--- OUTSIDE RECORDS SUMMARY | 2022-03-23 17:27 | XMS_ITS | Encounter Summary ---
:1980 Author Organization [facility] Address [address] [place] [id number] Care Team Providers Name Role Phone Ghanshyam Hassan Primary Care Provider [phone] Reason for Visit Reason Comments Flank Pain right flank pain, Encounter Details Date Type Department Care Team Description 02/22/2012 Emergency [facility] Bennie Kar Flank pain (Primary [facility] Emergency Dep t MD Kaveh Dx) [address] [facility] [place], [place] [id number] [phone] [address] [place], [place] [id number] (Wo rk) Social History Tobacco Use Types [...] Sign Reading Time Taken Comments Blood Pressure 96/70 02/22/2012 12:25 PM [facility] Pulse - - Temperature 36.7 ??C (98 ??F) 02/22/2012 5:03 AM [facility] Respiratory Rate 20 02/22/2012 5:03 AM [facility] Oxygen Saturation 100% 02/22/2012 10:25 AM [facility] Inhaled Oxygen Concentration - - Weight 88.5 kg (195 lb) 02/22/2012 5:03 AM [facility] Height 167.6 cm (5' 6) 02/22/2012 5:03 AM [facility] Body Mass Index 31.47 02/22/2012 5:03 AM [facility] documented in this encounter Discharge Instructions Discharge InstructionsKar Avery MD - 02/22/2012 12:29 PM [facility] Discharge Instructions Flank/ Abdominal Pain Abdominal or flank pain can be caused by many things. Your evaluation today does not show the exact cause for your pain. Your doctor today has decided that it is unlikely your pain is due to a life threatening problem, or a problem requiring surgery or hospital admission. Sometimes those problems cannot be found right away, so it is very important that you follow up as directed. Sometimes only the changes which occur over time allow the cause of your pain to be found. Return to the Emergency Department for a recheck in 12-18 hours if your pain continues. If your paingets worse, changes in location, or feels different, return to the Emergency Department right away. ADULTS: Return to the Emergency Department right away if: You get an oral temperature above 102oF or as directed by your doctor. You have blood in your stools (bright red or black, tarry stools). You keep throwing up or can???t drink liquids. You see blood when you throw up. You can???t have a bowel movement or you can???t pass gas. Your stomach gets bloated or bigger. Your skin or the whites of your eyes look yellow. You faint. You have bloody, frequent or painful urination. You have new symptoms or anything that worries you. o WOMEN: Return to the Emergency Department right away if you have any of the above-listed symptoms or the following: You have bleeding, leaking fluid or passing tissue from the vagina You have worse pain or cramping, or pain in your shoulder or back. You have vomiting that will not stop. You have painful or bloody urination. You have a temperature of 100oF or more. Your baby is not moving as much as usual. You faint. You get a bad headache with or without eye problems and abdominal pain. You have a convulsion or seizure. You have unusual discharge from your vagina and abdominal pain. Abdominal pain is pretty common during . Your pain may or may not be related to your . You should follow-up closely with your OB doctor so they can evaluate you and your baby. Until you follow-up with your regular doctor, do the following: Avoid sex and do not put anything in your vagina. Drink clear fluids. Only take medications approved by your doctor. MORE INFORMATION: Appendicitis: A possible cause of abdominal pain in any person who still has their appendix is acuteappendicitis. Appendicitis is often hard to diagnose. Testing does not always rule out early appendicitis or other causes of abdominal pain. Close follow-up with your doctor and re-evaluations may be needed to figure out the reason for your abdominal pain. Follow-up: It is very important that you make an appointment with your clinic and go to the appointment. If you do not follow-up with your primary doctor, it may result in missing an important development which could result in permanent injury or disability and/or lasting pain. If there is any problemkeeping your appointment, call your doctor or return to the Emergency Department. Medications: Take your medications as directed by your doctor today. Before using [id number] medications, ask your doctor and make sure to take the medications as directed. If you have any questions about medications, ask your doctor. Diet: Resume your normal diet as much as possible, but do not eat fried, fatty or spicy foods while you have pain. Do not drink alcohol or have caffeine. Do not smoke tobacco. Remember that you can always come back to the Emergency Department if you are not able to see your normal doctor in the amount of time listed above, if you get any new symptoms, or if there is anythingthat worries you. KMASON documented in this encounter Medications at Time [...] encounter ED Notes Selin Franz RN - 02/22/2012 11:52 AM CST Patient at [facility]. KMASON Selin Franz RN - 02/22/2012 10:24 AM CST Patient given [place] and updated on plan of care. KMASON Kar Avery MD - 02/22/2012 6:38 AM CST History Chief Complaint: Flank Pain HPI Lacey Nolasco is a 31 year old female who is 29 weeks who presents with flank pain. The patient states she has been having right flank pain for the past 3 to [address] Nicole at [facility] on 02/12 and a retroperitoneal ultrasound was performed. This revealed bilateral hydronephrosis, worse on the right. The right renal pelvis measured 3.6 cm in diameter and the leftrenal pelvis was 1.8 cm in diameter. Both ureteral orifices at the level of the bladder were visualized and no ureteral jets were identified. The plan was to possibly undergo an abdominal MRI if symptoms worsened. She was given Vicodin for pain control. She was also told if her pain worsened she should present to the emergency department for further evaluation. Since this evaluation, the pain has been constant at a 5/10 in severity. It has mildly worsened with eating. The pain then worsened this morning at 0200 and awoke the patient from sleep, prompting her visit to the emergency department. Here,she rates her pain as an 8/10 in severity. She states that movement has no effect on the pain. She denies any known injuries or recent trauma. She denies any urinary symptoms. She does have mild nauseawith this , but this is unchanged. She denies any fevers, chills, abdominal pain, vomiting,abnormal bowel movements, vaginal bleeding or discharge, or other physical concerns. Allergies: Ambien Medications: vitamin Tylenol Past Medical History: The patient does not have any past pertinent medical history. Past Surgical History: Tonsillectomy Diagnostic laparoscopy Family / Social History: History reviewed. No pertinent family history. Social History: The patient does not smoke. She drinks alcohol occasionally. Review of Systems Constitutional: Negative for fever and chills. Gastrointestinal: Positive for nausea. Negative for vomiting, abdominal pain, diarrhea, constipationand blood in stool. Genitourinary: Positive for flank pain. Negative for dysuria, urgency, frequency, hematuria, decreased urine volume, vaginal bleeding, vaginal discharge and difficulty urinating. All other systems reviewed and are negative. Physical Exam First Vitals: BP: 112/64 mmHg Heart Rate: 99 Temp: 98 ??F (36.7 ??C) Resp: 20 Height: 167.6 cm (5' 6) Weight: 88.451 kg (195 lb) SpO2: 100 % Physical Exam Constitutional: She is oriented to person, place, and time. She appears well- developed and well-nourished. Alert. Conversant. Non-toxic. HENT: Head: Atraumatic. Nose: Nose normal. Mouth/Throat: Oropharynx is clear and moist. Eyes: Conjunctivae and EOM are normal. Pupils are equal, round, and reactive to light. No scleral icterus. Neck: Normal range of motion. Neck supple. No JVD present. No tracheal deviation present. Cardiovascular: Normal rate, regular rhythm and normal heart sounds. Exam reveals no gallop and no friction rub. No murmur heard. symmetric radial artery pulses Pulmonary/Chest: Effort normal and breath sounds normal. No stridor. No respiratory distress. She has no wheezes. She has no rales. She exhibits no tenderness. No rhonchi Abdominal: Soft. Bowel sounds are normal. She exhibits no distension and no mass (non-tender gravid uterus. otherwise normal.). There is no tenderness. There is no rebound and no guarding. Musculoskeletal: Normal range of motion. She exhibits no edema. Tenderness: R >L CVA. No deformity Lymphadenopathy: She has no cervical adenopathy. Neurological: She is alert and oriented to person, place, and time. She has normal strength. No cranial nerve deficit or sensory deficit. GCS eye subscore is 4. GCS verbal subscore is 5. GCS motor subscore is 6. Normal coordination Skin: Skin is warm and dry. No rash noted. No pallor. Psychiatric: She has a normal mood and affect. Her behavior is normal. Judgment and thought content normal. Emergency Department Course Imaging: US Retroperitoneal: Moderate bilateral hydronephrosis, per radiology. Laboratory: CBC: HGB 11.0 low, Neuts 76.7 high, Lymphs 13.6 low, o/w WNL (WBC 9.0, Platelets 191) BMP: Creatinine 0.51 low, o/w WNL UA: Trace amount of leukocyte esterase, Moderate amount of bacteria, Epithelial 12 high, Mucus present, o/w negative Interventions: Zofran 4 mg IV injection Morphine 4 mg IV injection x2 NS 1 L IV bolus Emergency Department Course: I reviewed the patient's old medical records and performed a thorough exam of the patient. IV inserted and blood drawn. The patient was placed on continuous blood pressure monitoring and pulse oximetry. The patient was sent for a US retroperitoneal complete while in the emergency department, findings above. 10:14 AM, I consulted with Dr. Nicole of urology regarding the patient. 12:18 PM, I spoke to Dr. Nicole again regarding the patient's ultrasound. 12:25 PM, I spoke with Dr. Delgado of [facility] [employer] [facility] regarding the patient. Rechecked the patient, findings and plan explained to the patient. Patient discharged home, status improved, with instructions regarding supportive care, medications, and reasons to return as well as the importance of close follow-up was reviewed. Impression & Plan Medical Decision Making: This is a 31 year old pleasant woman who is 30 weeks by dates who presents to the ER today for exacerbation of flank pain. She has flank pain for the past several weeks and was noted to have anormal gallbladder ultrasound, but hydronephrosis by ultrasound. The cause of the hydronephrosis at the time of presentation was uncertain. It was not known if it was due to compression by the uterus or to kidney stones. Evaluation here in the ER involved renal ultrasound as well as return of ultrasound to look for ureteral jets. We were able to identify a ureteral jet on the right, but not the left.Given that the right is the side with worse hydronephrosis and worse pain, we think that is highly un likely that this pain is due to kidney stone. Also further evidence against kidney stones would be the lack of hematuria. In consultation with Dr. Escoto of urology we do not think that emergent cystoscopy or stenting is needed in this case. It is simply a matter of pain control. We did contact her OBoffice and discussed the case with Dr. Delgado who will agree to follow up on this patient on Friday in the office. At this point, I discussed the initial diagnostic dilemma and findings of ultrasoundwith the patient. She is agreeable to the plan for outpatient pain control and followup with OB on Friday. At this point, I do not think CT scan with its impendent risk is indicated in this patient. Atthis point there is no evidence for labor, kidney stone, pyelonephritis, or other acute lifethreatening abnormality. Diagnosis: 1. Bilateral flank pain, uncertain etiology. 2. Bilateral hydronephrosis, possibly due to , uncertain significance. Scribe Disclosure: I, Mohsen Ponce, am serving as a scribe at 6:38 AM on 02/22/2012 to document services personally performed by Dr. Avery, based on my observations and the provider's statements to me. Chirag Ponce 02/22/2012 [facility] EMERGENCY DEPARTMENT Kar Avery MD 02/23/12 0847 KMASON Daily, Uzma Naylor RN - 02/22/2012 5:05 AM CST 29 weeks . Has enlarged kidneys unknown eitiology. Having right flank pain tonight, told to come to ED if pain got worse. Has been having pain for 3-4 weeks. Also having some pain in left kidney. Voiding well, no dysuria or hematuria. No abdominal pain or vaginal discharge or bleedingAlert and oriented x3, abc's intact KMASON documented in this encounter Plan of Treatment Not on filedocumented as of this encounter Procedures Procedure Name Priority Date/Time Associated Comments Diagnosis US RENAL COMPLETE STAT 02/22/2012 8:44 AM Resu lts for this NON-VASCULAR [facility] procedure are i n the results section. CBC WITH PLATELETS & STAT 02/22/2012 7:10 AM R esults for this DIFFERENTIAL [facility]ON procedure are i n the results section. BASIC METABOLIC PANEL STAT 02/22/2012 7:10 AM Results for this [facility]ON procedure are i n the results section. UA MACROSCOPIC WITH STAT 02/22/2012 5:50 AM Re sults for this REFLEX TO MICRO AND BLOCKMASON procedur e are in CULTURE the results section. documented in this encounter Results Retroperitoneal US (02/22/2012 8:44 AM BLOCK[facility]AS[facility]) Anatomical Region Laterality Modality Abdomen/Pelvis Other Specimen (Source) Anatomical Collection Method Collection Time Re ceived Time Location / / Volume Laterality 02/22/2012 8:44 AM [facility] Impressions 02/23/2012 8:31 AM [facility] ULTRASOUND RETROPERITONEAL COMPLETE 02/12 ?? 8:44 AM HISTORY: Flank pain, bilateral. About 30 weeks . FINDINGS: There is moderate bilateral hy dronephrosis. Both kidneys measure 11.3 cm. Incidentally noted preg sailaja with cephalic presentation and a heart rate of 139. Th e bladder is not fluid-filled. IMPRESSION: Moderate bilateral hydroneph rosis. Kar Avery MD IMG US ORDERABLES (ABNORMAL) Basic metabolic panel (02/22/2012 7:10 AM BLOCK[facility]) Analysis Performed At Patho logist Time Signature Sodium 135 133 - 144 [facility] mmol/L [facility] Potassium 3.8 3.4 - 5.3 [facility] mmol/L [facility] Chloride 105 94 - 109 [facility] mmol/L [facility] Carbon Dioxide 22 20 - 32 [facility] mmol/L [facility] Anion Gap 7 6 - 17 [facility] mmol/L [facility] Glucose 75 60 - 99 [facility] mg/dL [facility] Urea Nitrogen 6 5 - 24 [facility] mg/dL [facility] Creatinine 0.51 (L) 0.52 - [facility] 1.04 mg/dL [facility] GFR Estimate >90 >60 [facility] mL/min/1.7 [facility] m2 [facility] GFR Estimate If >90 >60 [facility] Black mL/min/1.7 [facility] m2 [facility] Calcium 8.6 8.5 - 10.4 [facility] mg/dL [facility] Specimen Anatomical Collection Method Collection Time Receive d Time (Source) Location / / Volume Laterality Blood specimen 02/22/2012 7:10 AM 012 7:17 (specimen) BLOCK[facility]AS[facility] AM BLOCK[facility] Kar Avery MD LAB - BLOOD ORDERABLES Performing Organization Address City/State/ZIP Code Phon e Number [facility] [address] [place], [place] [address] [facility] (ABNORMAL) CBC with platelets differential (02/22/2012 7:10 AM BLOCK[facility]) [facility] gist Method Time Signature WBC 9.0 4.0 - [place] 11.0 [facility] 10e9/L [facility] RBC Count 3.73 (L) 3.8 - 5.2 [place] 10e12/L [facility] Hemoglobin 11.0 (L) 11.7 - [place] 15.7 g/dL [facility] Hematocrit 32.7 (L) 35.0 - [place] 47.0 % [facility] MCV 88 78 - 100 [place] fl [facility] MCH 29.5 26.5 - [place] 33.0 pg [facility] MCHC 33.6 31.5 - [place] 36.5 g/dL [facility] RDW 14.2 10.0 - [place] 15.0 % [facility] Platelet Count 191 150 - 450 [place] 10e9/[facility] Diff Method Automated [facility] % Neutrophils 76.7 (H) 40 - 75 % [facility] % Lymphocytes 13.6 (L) 20 - 48 % [facility] % Monocytes 7.2 0 - 12 % [facility] % Eosinophils 1.2 0 - 6 % [facility] % Basophils 0.2 0 - 2 % [facility] % Immature 1.1 (H) 0 - 0.4 % [place] Granulocytes [facility] Absolute 6.9 1.6 - 8.3 [place] Neutrophil 10e9/L [facility] Absolute 1.2 0.8 - 5.3 [place] Lymphocytes 10e9/L [facility] Absolute 0.6 0.0 - 1.3 [place] Monocytes 10e9/L [facility] Absolute 0.1 0.0 - 0.7 [place] Eosinophils 10e9/L [facility] Absolute 0.0 0.0 - 0.2 [place] Basophils 10e9/L [facility] Abs Immature 0.1 (H) 0 - 0.03 [place] Granulocytes 10e9/L [facility] Specimen Anatomical Collection Method Collection Time Receive d Time (Source) Location / / Volume Laterality Blood specimen 02/22/2012 7:10 AM 012 7:17 (specimen) BLOCK[facility] AM [facility] Kar Avery MD LAB - BLOOD ORDERABLES Performing Organization Address City/State/ZIP Code Phon e Number [facility] [address] [place] [address] [facility] (ABNORMAL) UA reflex to micrscopic and culture (02/22/2012 5:50 AM [facility]) [facility] gist Method Time Signature Color Urine Yellow [facility] Appearance Urine Clear [facility] Glucose Urine Negative NEG mg/dL [facility] Bilirubin Urine Negative NEG [facility] Ketones Urine Negative NEG mg/dL [facility] Specific [place] 1.008 1.003 - [place] Urine 1.035 [facility] Blood Urine Negative NEG [facility] pH Urine 6.5 5.0 - 7.0 [place] pH [facility] Protein Albumin Negative NEG mg/dL [facility] Urobilinogen Normal 0.0 - 2.0 [place] mg/dL mg/dL [facility] Nitrite Urine Negative NEG [facility] Leukocyte Trace (A) NEG [place] Esterase Urine [facility] Source Midstream [facility] RBC Urine <1 0 - 2 [place] [facility] WBC Urine 2 0 - 2 [place] [facility] Bacteria Urine Moderate (A) NEG /HPF [facility] Squamous 12 (H) 0 - 1 [place] Epithelial /HPF /HPF [facility] Transitional Epi 1 0 - [address] [facility] Mucous Urine Present (A) NEG /LPF [facility] Specimen Anatomical Collection Method Collection Time Receive d Time (Source) Location / / Volume Laterality Urine specimen URINE SPECIMEN 02/22/2012 5:50 AM 02/21 6:22 (specimen) OBTAINED BY CLEAN [facility]ON AM [facility] CATCH PROCEDURE / Unknown Selin Lee MD LAB - URINE ORDERABLES Performing Organization Address City/State/ZIP Code Phon e Number [facility] [address] [place], [place] [address] [facility] documented in this encounter Visit Diagnoses Diagnosis Flank pain - Primary Abdominal pain, unspecified site documented in this encounter Administered Medications Inactive Administered Medications - up to 3 most recent administrations Medication Order MAR Action Action Date Dose Rate Site morphine (PF) injection 4 mg Given 02/22/2012 9:05 AM [facility] 4 mg 4 mg, Intravenous, EVERY 15 MIN PRN, moderate to severe pain, Starting on 02/22/12 at 0648, For 4 doses Given 02/22/2012 7:21 AM [facility] 4 mg ondansetron (ZOFRAN) injection 4 mg Given 02/22/2012 7:21 AM [facility] 4 mg 4 mg, Intravenous, ONCE, Administer over 2-5 Minutes, On 02/22/12 at 0700, For 1 dose sodium chloride 0.9 % BOLUS New Bag 02/22/2012 10:50 AM [facility] 1, 000 mLs 1000 mL/hr 1,000 mL Intravenous, 1,000 mL, ONCE, at 1,000 mL/hr, Administer over 1 Hours, On 02/22/12 at 1100, For 1 dose documented in this encounter Active and Recently Administered Medications Times are shown in BLOCKMASON. Scheduled Medication Order 02/20/2012 02/21/2012 02/22/2012 ondansetron (ZOFRAN) injection 4 mg (COMPLETED) 0721 (Given - Provider: Selin Franz RN) 4 mg, Intravenous, ONCE, for 2 Minutes, 02/22/12 at 0700, Fo r 1 dose sodium chloride 0.9 % BOLUS 1,000 mL (COMPLETED) 1050 (New Bag - Provider: Selin Franz RN)1209 (Stopped - Provider: Selin Franz RN) Intravenous, 1,000 mL, ONCE, at 1,000 mL /hr, for 1 Hours, 02/22/12 at 1100, For 1 dose PRN Medication Order 02/20/2012 02/21/2012 02/22/2012 morphine (PF) injection 4 mg (CANCELED) 0721 (Given - Provider: Selin Franz RN)0905 (Given - Provider: Selin Franz LEELA) 4 mg, Intravenous, EVERY 15 MIN PRN, mod erate to severe pain, Starting 02/22/12 at 0648, For 4 doses documented in this encounter Care Teams Seasonal Package Handler Relationship Specialty Start Date End Date Ghanshyam Hassan PCP - General 02/22/12 02/22/[id number] [place] [address] documented as of this encounter
--- OUTSIDE RECORDS SUMMARY | 2022-03-23 17:27 | XMS_ITS | Encounter Summary ---
:1980 Author Organization [facility] Address [address] [place] [address]. [place] [address] Care Team Providers Name Role Phone Ghanshyam Hassan Primary Care Provider Reason for Visit Auth/Cert - Closed Specialty Diagnoses / Procedures Referred By Contact Refer red To Contact Surgery Diagnoses Menorrhagia, Dysmenorrhea, Endometrosis Rh Periop Serv ices Procedures COMBINED DILATION AND CURETTAGE SUCTION, ABLATE ENDOMETRIUM NOVASURE [address] [place], [place] [address] Phone: Fax: Referral ID Status Reason Start Date Expiration Date Visits Requ ested Visits Authorized [id number] Closed 1 1 Encounter Details Date Type Department Care Team Description 04/27/2013 Hospital Encounter [facility] Andres Mahajan Menorrhagia (Primary Dx); Bessy Beck MD Dysmenorrhea; PreOP/PostOP [address] Ph[address]itis; [address] [place], [place] [address] [address] [place], [place] [phone] (Wo rk) [id number] [phone] Social History Tobacco Use Types Packs/Day Years [...] Sign Reading Time Taken Comments Blood Pressure 109/65 04/27/2013 1:00 PM ORDNANCE KEEPER Pulse - - Temperature 36.5 ??C (97.7 ??F) 04/27/2013 11:12 AM ORDNANCE KEEPER Respiratory Rate 16 04/27/2013 12:56 PM ORDNANCE KEEPER Oxygen Saturation 98% 04/27/2013 1:00 PM ORDNANCE KEEPER Inhaled Oxygen Concentration - - Weight 78 kg (172 lb) 04/27/2013 7:53 AM ORDNANCE KEEPER Height 167.6 cm (5' 6) 04/27/2013 7:53 AM ORDNANCE KEEPER Body Mass Index 27.76 04/27/2013 7:53 AM ORDNANCE KEEPER documented in this encounter Discharge Instructions Discharge InstructionsJessica Riley RN - 04/27/2013 11:44 AM ORDNANCE KEEPER HAD IV TYLENOL 1,000 MG IV, MAX [...] NOT ABLE TO URINATE (PASS WATER). .rh ANCE KEEPER AttachmentsThe following attachments cannot be sent through [...] documented as of this encounter Progress Notes Millie, Provider - 04/28/2013 10:57 AM CST ANCE KEEPER documented in this encounter H&P Notes Millie Provider - 04/22/2013 4:19 PM CST ANCE KEEPER documented in this encounter Miscellaneous Notes Brief Op Note - Stephen Mahajan MD - 04/27/2013 9:23 AM CST [facility] Brief Operative Note Pre-operative diagnosis: Menorrhagia, Dysmenorrhea, Endometrosis Post-operative diagnosis s/p endometrial ablation Procedure: Procedure(s) with comments: COMBINED DILATION AND CURETTAGE SUCTION, ABLATE ENDOMETRIUM NOVASURE - COMBINED DILATION AND CURETTAGE SUCTION, ABLATE ENDOMETRIUM NOVASURE Surgeon(s): Surgeon(s) and Role: * Stephen Mahajan MD - Primary Estimated blood loss: 5 mL Specimens: ID Type Source Tests Collected by Time Destination A [place] [facility] [place] Endometrium SURGICAL PATHOLOGY EXAM Stephen Mahajan MD 04/27/2013 9:04 AM Pathology Findings: 6.0 x 4.5 cm cavity, scant currettings ANCE KEEPER Op Note - Stephen Mahajan MD - 04/27/2013 9:22 AM CST PREOPERATIVE [...] MAHAJAN MD MT: [id number] Name: SHAMIR NOLASCO Account: [id number] : 1980 Procedure Date: 04/27/2013 Document: [id number] ANCE KEEPER documented in this encounter Plan of Treatment Not on filedocumented as of this encounter Procedures Procedure Name Priority Date/Time Associated Diagnosis Comme nts RAPID STREP SCREEN STAT 04/27/2013 9:45 AM Res ults for this THROAT SWAB ORDNANCE KEEPER procedure are i n the results section. SURGICAL PATHOLOGY Routine 04/27/2013 9:04 AM Res ults for this EXAM ORDNANCE KEEPER procedure are i n the results section. COMBINED DILATION 04/27/2013 8:40 AM s/p endometrial AND CURETTAGE ORDNANCE KEEPER ablation SUCTION, ABLATE ENDOMETRIUM NOVASURE Special Needs 5'6, 181# per h and p HEMOGLOBIN STAT 04/27/2013 8:40 AM ORDNANCE KEEPER Resul ts for this procedure are in the results sec tion. HCG QUALITATIVE URINE STAT 04/27/2013 7:55 AM ORDNANCE KEEPER Results for this procedure are in the results sec tion. documented in this encounter Results (ABNORMAL) Rapid strep screen (04/27/2013 9:45 AM ORDNANCE KEEPER) Component Value Ref Test Analysis Performed At [facility] [employer] Range Method Time Signature Specimen Throat [facility] Rapid Strep A POSITIVE: Group [place] Screen A Streptococcal [facility] antigen detected HOSPITAL LAB by immunoassay. (A) Micro Report FINAL 04/27/2013 [facility] Specimen Anatomical Collection Method Collection Time Receive d Time (Source) Location / / Volume Laterality Specimen from 04/27/2013 9:45 AM 04/27/19 14 throat ORDNANCE KEEPER 10:35 AM ORDNANCE KEEPER (specimen) Stephen Mahajan MD LAB - MICRO GENERAL ORDERABL ES Performing Organization Address City/State/ZIP Code Phon e Number M [facility] [address], [place] [address] [facility] Surgical pathology exam (04/27/2013 9:04 AM ORDNANCE KEEPER) Component Value Ref Test Analysis Performed At [facility] [employer] Range Method Time Signature Copath Report Patient Name: SHAMIR NOLASCO MR#: [id number] Specimen #: [id number] Collected: 04/27/2013 Received: 04/27/2013 [...] lyp or obvious stromal breakdown is identified. LENINK/mike 04-28-13 TESTING LAB LOCATION: [place] [address], [place] ??[phone] COLLECTION SITE: Client: [facility] Location: RHOR (R) Specimen Anatomical Collection Method Collection Time Receive d Time (Source) Location / / Volume Laterality 04/27/2013 9:04 AM 4 ORDNANCE KEEPER 10:10 AM ORDNANCE KEEPER Stephen Mahajan MD LAB - BEAKER AP Performing Organization Address City/[facility]/ZIP Code Phon e Number [place] Hemoglobin (04/27/2013 8:40 AM ORDNANCE KEEPER) P athologist Signature Hemoglobin 12.3 11.7 - 15.7 [facility] g/dL [facility] Specimen Anatomical Collection Method Collection Time Receive d Time (Source) Location / / Volume Laterality Blood specimen 04/27/2013 8:40 AM 014 8:47 (specimen) ORDNANCE KEEPER AM ORDNANCE KEEPER Parish Bill MD LAB - BLOOD ORDERABLES Performing Organization Address City/State/ZIP Code Phon e Number M [place] [address], [place] [address] [facility] HCG qualitative urine (04/27/2013 7:55 AM ORDNANCE KEEPER) P athologist Signature HCG Qual Urine Negative NEG [facility] Specimen Anatomical Collection Method Collection Time Receive d Time (Source) Location / / Volume Laterality Urine specimen URINE SPECIMEN / 04/27/2013 7:55 AM 8:07 (specimen) Unknown ORDNANCE KEEPER AM ORDNANCE KEEPER Stephen Mahajan MD LAB - URINE ORDERABLES Performing Organization Address City/State/ZIP Code Phon e Number M [facility] [address] [place], [place] [address] [facility] documented in this encounter Visit Diagnoses Diagnosis Menorrhagia - Primary Excessive or frequent menstruation Dysmenorrhea Pharyngitis Acute pharyngitis Strep pharyngitis Streptococcal sore throat documented in this encounter Administered Medications Inactive Administered Medications - up to 3 most recent administrations Medication Order MAR Action Action Date Dose Rate Site acetaminophen (OFIRMEV) 10 Given 04/27/2013 9:39 AM 1,000 mg 4 00 mL/hr mg/mL infusion 1,000 mg ORDNANCE KEEPER 1,000 mg, Intravenous, at 400 mL/hr, ONCE PRN, other, if pain relief not effective after narcotic dose, Administer over 15 Minutes, Starting on Fri04/27/13 at 0930, For 1 dose, Maximum dose of acetaminophen is 4000 mg from all sources., PACU/Phase II ePHEDrine injection 25 mg Given 04/27/2013 12:12 PM ORDNANCE KEEPER 25 mg Righ t Ventrogluteal 25 mg, Intramuscular, ONCE, On Fri04/27/13 at 1215, For 1 dose, Phase ll fentaNYL (SUBLIMAZE) injection 25-50 mcg Given 04/27/2013 10:25 AM ORDNANCE KEEPER 50 mcg 25-50 mcg, Intravenous, EVERY 2 MIN PRN, other, acute pain while in PACU., Starting on Fri04/27/13 at 0929, MAX cumulative dose = 250 mcg. Use Fentanyl initially, as a short acting agent for acute pain control. If insufficient, or a longer acting agent is needed, begin Morphine or Hydromorphone if ordered., PACU Given 04/27/2013 10:04 AM ORDNANCE KEEPER 50 mcg Given 04/27/2013 9:50 AM ORDNANCE KEEPER 50 mcg HYDROmorphone (PF) (DILAUDID) injection Given 04/27/2013 10:12 A M ORDNANCE KEEPER 0.2 mg 0.3-0.5 mg 0.3-0.5 mg, Intravenous, [...] ringers infusion New Bag 04/27/2013 11:55 AM ORDNANCE KEEPER 1,000 mLs 100 mL/hr at 100 mL/hr, Intravenous, CONTINUOUS, Continue until IV catheter is weaned, PACU/Phase II, Starting on Fri04/27/13 at 0945, Until Fri04/27/13 at 1533 ondansetron (ZOFRAN) injection 4 mg Given 04/27/2013 10:38 AM ORDNANCE KEEPER 4 mg 4 mg, Intravenous, EVERY 30 [...] immediate release tablet Given 04/27/2013 1:03 PM ORDNANCE KEEPER 5 mg 5-10 mg 5-10 mg, Oral, ONCE PRN, moderate to severe pain, Starting on Fri04/27/13 at 0930, For 1 dose, One time prior to discharge., Post-procedure promethazine (PHENERGAN) Given 04/27/2013 12:12 PM ORDNANCE KEEPER 25 mg Right Ventrogluteal injection 25 mg [...] Recently Administered Medications Times are shown in ORDNANCE KEEPER. Scheduled Medication Order 04/25/2013 04/26/2013 04/27/2013 ePHEDrine injection 25 mg (COMPLETED) 1212 (Given - Provider: Jessica Riley RN) 25 mg, Intramuscular, ONCE, Fri04/27/13 at 1215, For 1 dose, Pha se ll promethazine (PHENERGAN) injection 25 mg (COMPLETED) 1212 (Given - Provider: Jessica Riley RN) 25 mg, Intramuscular, ONCE, e 04/27/13 at 1215, For 1 dose, WARNING [...] (OFIRMEV) 10 mg/mL infusion 1,000 mg (COMPLETED) 09 (Given - Provider: Ruthie Armstrong RN) 1,000 mg, Intravenous, at 400 mL/hr, ONC [...] RN) 0.3-0.5 mg, Intravenous, EVERY 10 MIN ND N, moderate to severe pain, acute pain.?May administer if RR is > 10 , Starting 04/27/13 at 0930, If fentanyl is also ordered, use HYDROmorphone if pain control insufficient with fentanyl or a longer acting agent is needed. Max cumulative dose = 2 mg , PACU/Phase II ondansetron (ZOFRAN) injection 4 mg (CANCELED) 1038 (Given - Provider: Jessica Riley RN) 4 mg, Intravenous, EVERY 30 MIN PRN, cinthia sea, vomiting, Administer over 2-5 Minutes, Starting 04/27/13 at 0930, For 2 doses, MAX total dose = 8 mg, including OR dosing. This is step 1 of the nausea an d vomiting protocol. If not resolved in 15 minutes, then go to step 2 (Prochlorperazine if ordered)., PACU/Phase II oxyCODONE (ROXICODONE) immediate release tablet 5-10 mg (COMPLET ED) 1303 (Given - Provider: Jessica Riley RN) 5-10 mg, Oral, ONCE PRN, moderate to sev ere pain, Starting e 04/27/13 at 0930, For 1 dose, One time prior to discharge., Post-procedure documented in this encounter Care Teams Insurance Marketing Specialist Relationship Specialty Start Date End Date Ghanshyam Hassan PCP - General 04/08/12 11/14/18 [id number] [address] [place] [id number] documented as of this encounter
--- OUTSIDE RECORDS SUMMARY | 2022-03-23 17:28 | XMS_ITS | Encounter Summary ---
:1980 Author Organization [place] Address [address] [place] [address]. [place] [address] Care Team Providers Name Role Phone Ghanshyam Hassan Primary Care Provider [phone] Reason for Visit Auth/Cert - Closed Specialty Diagnoses / Procedures Referred By Contact Refer red To Contact Surgery Diagnoses Pelvic Pain, Infertility Rh Periop Services Procedures LAPAROSCOPY DIAGNOSTIC (GRAPHITE PAN DRIER TENDER) [address] [place], [place] [address] Phone: Fax: Referral ID Status Reason Start Date Expiration Date Visits Requ ested Visits Authorized [id number] Closed 04/22/2011 10/19/2011 1 1 Encounter Details Date Type Department Care Team Description 04/23/2011 Hospital Encounter [facility] Andres Mahajan PreOP/PostOP MD Kiran [address] [facility] [address] [place], [place] [id number] [phone] Social History Tobacco Use Types Packs/Day Years [...] Sign Reading Time Taken Comments Blood Pressure 113/70 04/23/2011 1:35 PM AESTHETICIAN Pulse 71 04/23/2011 9:14 AM AESTHETICIAN Temperature 36.5 ??C (97.7 ??F) 04/23/2011 12:57 PM AESTHETICIAN Respiratory Rate 14 04/23/2011 12:57 PM AESTHETICIAN Oxygen Saturation 100% 04/23/2011 2:00 PM AESTHETICIAN Inhaled Oxygen Concentration - - Weight 77.1 kg (170 lb) 04/23/2011 9:14 AM AESTHETICIAN Height 167.6 cm (5' 6) 04/23/2011 9:14 AM AESTHETICIAN Body Mass Index 27.44 04/23/2011 9:14 AM AESTHETICIAN documented in this encounter Discharge Instructions Discharge InstructionsTammie Sanabria RN - 04/23/2011 2:27 PM CST GENERAL ANESTHESIA OR SEDATION ADULT DISCHARGE INSTRUCTIONS [...] STILL NOT ABLE TO URINATE (PASS WATER). LAPAROSCOPY, HYSTEROSCOPY OR PELVISCOPY DISCHARGE INSTRUCTIONS PLEASE RETURN TO THE CLINIC IN: ____1 WEEK ____2 WEEKS ____4 WEEKS ____6 WEEKS MAKE THIS APPOINTMENT AFTER YOU GET HOME. DO NOT DRIVE A CAR, DRINK ALCOHOL OR USE MACHINERY FOR THE NEXT 24 HOURS. YOU SHOULD WAIT UNTIL YOU HAVE RECOVERED BEFORE MAKING ANY IMPORTANT DECISIONS. PAIN YOU MAY HAVE CRAMPS, SHOULDER PAIN OR A LOW BACKACHE FOR 24 TO 48 HOURS. TYLENOL (ACETAMINOPHEN) OR MOTRIN (IBUPROFEN) MAY HELP, OR YOUR DOCTOR MAY GIVE YOU PAIN MEDICINE. CALL YOUR DOCTOR IF PAIN CANNOT BE CONTROLLED. BLEEDING OR VAGINAL DISCHARGE YOU MAY HAVE SOME BLEEDING OR DISCHARGE FOR UP TO A WEEK OR LONGER. DO NOT DOUCHE, USE TAMPONS OR HAVE SEX (INTERCOURSE) FOR DAYS. CALL YOUR DOCTOR IF YOU SOAK MORE THAN ONE MAXI PAD (SANITARY [place]) PER HOUR, OR IF YOU PASS LARGE BLOOD CLOTS. FEVER YOU MAY HAVE A LOW FEVER FOR THE FIRST TWO DAYS. CALL YOUR DOCTOR IF IT GOES OVER 101 DEGREES. NAUSEA IF YOU HAVE NAUSEA (FEEL SICK TO YOUR STOMACH), STAY IN BED. TRY DRINKING A SMALL AMOUNT OF 7-UP, TEA OR SOUP. SWOLLEN BELLY IF YOUR ABDOMEN (BELLY AREA) FEELS FIRM OR SWOLLEN, CALL YOUR DOCTOR. DIZZINESS AND WEAKNESS YOU MAY FEEL DIZZY OR WEAK FOR A FEW DAYS. IF SO, YOU SHOULD REST OFTEN, STAND UP SLOWLY AND USE CARE WHEN CLIMBING STAIRS. DIET AND ACTIVITY EAT LIGHT MEALS AND DRINK PLENTY OF FLUIDS FOR THE FIRST 24 HOURS (OR LONGER, IF YOU HAVE NAUSEA). WAIT 5 DAYS BEFORE BATHING. SHOWERS ARE OKAY. MOST WOMEN CAN RETURN TO WORK AFTER 24 HOURS. YOU MAY GO BACK TO YOUR OTHER ACTIVITIES AFTER YOUR PAIN GOES AWAY. IF YOU HAVE STITCHES YOU MAY REMOVE YOUR BANDAGE THE DAY AFTER TREATMENT. YOUR DOCTOR WILL TELL YOU IF YOUR STITCHES NEED TO BE REMOVED. SOME STITCHES DISSOLVE OVER TIME. HETICIAN documented in this encounter Medications at Time of Discharge Medication Sig Dispensed Refills Start Date End Date ondansetron (ZOFRAN ODT) 4 Take 1 tablet by 10 tablet 0 02/201204/27/2011 MG disintegrating tablet mouth every 8 hours as needed for nausea for 3 days. hydrocodone-acetaminophen Take 1-2 tablets by 30 tablet 0 0 04/23/2011 11/04/2011 5-325 MG per mouth every 4 hours tabletIndications: as needed for other Endometriosis (Moderate to Severe Pain). documented as of this encounter H&P Notes Sirisha, Provider - 04/19/2011 2:08 PM AESTHETICIAN HETICIAN documented in this encounter Nursing Notes Fadumo Ramirez RN - 04/23/2011 12:49 PM CST Patient medicated for post-op pain with adequate relief. IV pain med followed with oral [place]. Readyfor transfer to Phase II. HETICIAN documented in this encounter OR Notes OR Anesthesia - Stephen Mahajan MD - 04/24/2011 10:29 AM AESTHETICIAN HETICIAN documented in this encounter Miscellaneous Notes Initial Assessments - Stephen Mahajan MD - 04/24/2011 10:14 AM AESTHETICIAN HETICIAN Op Note - Stephen Mahajan MD - 04/23/2011 11:30 AM CST PREOPERATIVE DIAGNOSIS: Pelvic pain. POSTOPERATIVE DIAGNOSIS: Mild endometriosis. PROCEDURE: Laparoscopy, fulguration of multiple endometriotic implants. SURGEON: Stephen Mahajan MD MARKETING AND DEVELOPMENT COORDINATOR: David Delgado MD ANESTHESIA: General endotracheal. INDICATIONS: Ms. Shamir Nolasco is a 31-year-old female para 1 with persistent pelvic pain and suspected endometriosis. Preoperative workup has been unable to identify an alternative cause of her pelvic pain. It seems to be somewhat cyclical in nature. She has discomfort with defecation at times. Risks, benefits and alternatives to diagnostic laparoscopy were discussed with the patient and she wishes to proceed. OPERATIVE FINDINGS: Examination under anesthesia demonstrated midline mobile uterus. There were no appreciable adnexal masses. At the time of laparoscopy, the uterus, tubes and ovaries appeared normal bilaterally. There were multiple small endometriotic implants in the posterior cul-de-sac adjacent tothe right uterosacral ligament and in the right ovarian fossa, there were also some in the midline of the posterior cul-de-sac as well as 2 small implants in the anterior cul-de-sac. The upper abdomen and appendix appeared normal. OPERATIVE PROCEDURE: After adequate general anesthesia was obtained, the patient was placed in dorsal lithotomy position, prepped and draped in the usual sterile fashion. Angulo catheter was placed. A speculum inserted in the vagina and the cervix was visualized. The anterior lip of the cervix was grasped with a single- tooth tenaculum. A uterine elevator was inserted into the uterine cavity and articulated with the cervix. The speculum was removed from the vagina and the perineum draped from the abdominal field. A 5 mm infraumbilical incision was made, a Veress needle was inserted and its proper intraperitonealpositioning confirmed by the drop saline method. A pneumoperitoneum was created using carbon dioxidewith opening pressures of 0 mmHg. After instillation of approximately 3 liters of carbon dioxide, the Veress needle was withdrawn and a 5-mm trocar and sheath inserted. Proper intraperitoneal positioning was confirmed. The pelvis was explored. Initially, a 5-mm port was placed in the midline 2 fingerbreadths above the symphysis pubis and a more thorough exploration of the pelvis and posterior cul-de-sac was performed using a blunt probe. This identified the multiple endometriotic implants. A second 5 mm port was then placed in the left lower quadrant under direct visualization and using a ball-tip cautery, the endometriotic implants were all cauterized. The pelvis was thoroughly inspected and a photographic record made. When all endometriotic implants had been treated and no additional pathology identified the accessory instruments were withdrawn, and the accessory sheath withdrawn under direct visualization. The abdomen was evacuated of the carbon dioxide to the extent possible and the laparoscope and laparoscopic sheath removed. Skin edges were reapproximated using interrupted sutures of 4-0 Monocryl. Steri- Strips and sterile bandages were placed. The instruments were removed from the vagina, thus completing the procedure. Thepatient was recalled from general anesthesia and taken to recovery room in satisfactory condition. There were no intraoperative complications. STEPHEN MAHAJAN MD MT: [id number] Name: SHAMIR NOLASCO Account: [id number] : 1980 Procedure Date: 04/23/2011 Document: [id number] cc: [facility] HETICIAN Op Note - Stephen Mahajan MD - 04/23/2011 11:24 AM CST See dictated Op Note HETICIAN Brief Op Note - Stephen Mahajan MD - 04/23/2011 11:20 AM CST Pre op dx: Pelvic pain Post op dx: Mild endometriosis, fulgarated Procedure: Diagnostic laparoscopy, fulgaration of endometriosis Surgeon: Jose Luis Asst: Danny Anesthesia: GET Findings: Endometriotic implants in post culdesac, anterior culdesac and right ovarian fossa. Normaluterus, tubes and ovaries bilaterally. Normal appendix and upper abdomen. Compl: None EBL: 10cc HETICIAN documented in this encounter Plan of Treatment Not on filedocumented as of this encounter Procedures Procedure Name Priority Date/Time Associated Diagnosis Comme nts LAPAROSCOPY 04/23/2011 10:06 endometriosis AM AESTHETICIAN HCG QUALITATIVE STAT 04/23/2011 9:15 AM Result s for this URINE AESTHETICIAN procedure are i n the results section. documented in this encounter Results HCG qualitative urine (04/23/2011 9:15 AM AESTHETICIAN) P athologist Signature HCG Qual Urine Negative NEG [facility] Specimen Anatomical Collection Method Collection Time Receive d Time (Source) Location / / Volume Laterality Urine specimen URINE SPECIMEN 04/23/2011 9:15 AM 04/23 9:51 (specimen) OBTAINED BY CLEAN AESTHETICIAN AM AESTHETICIAN CATCH PROCEDURE / Unknown Stephen Mahajan MD LAB - URINE ORDERABLES Performing Organization Address City/State/ZIP Code Phon e Number [facility] [address] [place], [place] [address] [facility] documented in this encounter Visit Diagnoses Diagnosis Endometriosis Endometriosis, site unspecified documented in this encounter Administered Medications Inactive Administered Medications - up to 3 most recent administrations Medication Order MAR Action Action Date Dose Rate Site fentanyl (SUBLIMAZE) injection Given 04/23/2011 12:22 PM AESTHETICIAN 50 mcg 25-50 mcg 25-50 mcg, Intravenous, EVERY 2 MIN PRN, other, acute pain, Starting on Fri04/23/11 at 0945, MAX cumulative dose = 250 mcg. Use Fentanyl initially, as a short acting agent for acute pain control. If insufficient, or a longer acting agent is needed, begin Morphine or Hydromorphone if ordered., PACU Given 04/23/2011 11:30 AM AESTHETICIAN 25 mcg Given 04/23/2011 11:25 AM AESTHETICIAN 25 mcg hydrocodone-acetaminophen 5-325 MG per Given 04/23/2011 12:46 PM AESTHETICIAN 1 tablet tablet 1-2 tablet 1-2 tablet, Oral, ONCE, On Fri04/23/11 at 1145, For 1 dose, One time prior to discharge., Post-procedure HYDROmorphone (DILAUDID) injection 0.2-0.4 Given 04/23/2011 12:08 PM AESTHETICIAN 0.2 mg mg 0.2-0.4 mg, Intravenous, EVERY 5 MIN PRN, moderate to severe pain, acute pain. May administer if RR is > 10 , Starting on Fri04/23/11 at 0945, If fentanyl is also ordered, use HYDROmorphone if pain control insufficient with fentanyl or a longer acting agent is needed. Max cumulative dose = 2 mg , PACU Given 04/23/2011 11:56 AM AESTHETICIAN 0.4 mg Given 04/23/2011 11:49 AM AESTHETICIAN 0.4 mg ketorolac (TORADOL) injection 30 mg Given 04/23/2011 11:30 AM AESTHETICIAN 30 mg 30 mg, Intravenous, ONCE, On Fri04/23/11 at 1145, For 1 dose, PACU lactated ringers infusion New Bag 04/23/2011 12:48 PM AESTHETICIAN 1,000 mLs 100 mL/hr at 100 mL/hr, Intravenous, CONTINUOUS, Continue until IV catheter is weaned, PACU/Phase II, Starting on Fri04/23/11 at 1000, Until 04/24/11 at 0148 ondansetron (ZOFRAN) injection 4 mg Given 04/23/2011 12:13 PM AESTHETICIAN 4 mg 4 mg, Intravenous, EVERY 30 MIN PRN, nausea, Administer over 2-5 Minutes, Starting on Fri04/23/11 at 0945, For 2 doses, MAX total dose = 8 mg, including OR dosing. If not resolved in 15 minutes, then go to step 2 (Prochlorperazine if ordered)., PACU/Phase II documented in this encounter Active and Recently Administered Medications Times are shown in AESTHETICIAN. Scheduled Medication Order 04/21/2011 04/22/2011 04/23/2011 hydrocodone-acetaminophen 5-325 MG per tablet 1-2 tablet (COMPLE ROSALIE) 1246 (Given - Provider: Faduom Ramirez, LEELA) 1-2 tablet, Oral, ONCE, Fri04/23/11 at 1 145, For 1 dose, One time prior to discharge., Post-procedure ketorolac (TORADOL) injection 30 mg (COMPLETED) 1130 (Given - Provider: Fadumo Ramirez, LEELA) 30 mg, Intravenous, ONCE, e 04/23/11 at 1145, For 1 dose, PACU Continuous Medication Order 04/21/2011 04/22/2011 04/23/2011 lactated ringers infusion (CANCELED) 1248 (New Bag - Provider: Fadumo Ramirez, LEELA) 1,000 mL, Intravenous, at 100 mL/hr, CON TINUOUS, Starting Fri04/23/11 at 1000, Continue until IV catheter is weaned, PACU/Phase II PRN Medication Order 04/21/2011 04/22/2011 04/23/2011 fentanyl (SUBLIMAZE) injection 25-50 mcg (CANCELED) 1115 (Given - Provider: Fadumo Ramirez RN - Comment: pain level 10)1119 (Given - Provider: Fadumo Ramirez, LEELA)1125 (Given - Provider: Fadumo Ramirez, LEELA)1130 (Given - Provider: Fadumo Ramirez, LEELA)1222 (Given - Provider: Jovana Salgado) 25-50 mcg, Intravenous, EVERY 2 MIN PRN, other, acute pain, Starting 04/23/11 at 0945, MAX cumulative dose = 250 mcg. Use Fentanyl initially, as a short acting agent for acute pain control. If insuff icient, or a longer acting agent is need ed, begin Morphine or Hydromorphone if ordered., PACU HYDROmorphone (DILAUDID) injection 0.2-0.4 mg (CANCELED) 1149 (Given - Provider: Jovana Salgado)1156 (Given - Provider: Jovana Salgado)1208 (Given - Provider: Jovana Salgado) 0.2-0.4 mg, Intravenous, EVERY 5 MIN PRN , Starting 04/23/11 at 0945, Until 04/23/11 at 1437, moderate to severe pain, acute pain. May administer if RR is > 10 , PACU, If fentanyl is also ordere d, use HYDROmorphone if pain control ins ufficient with fentanyl or a longer acting agent is needed. Max cumulative dose = 2 mg ondansetron (ZOFRAN) injection 4 mg (CANCELED) 1213 (Given - Provider: Jovana Salgado) 4 mg, Intravenous, EVERY 30 MIN PRN, cinthia sea, for 2 Minutes, Starting 04/23/11 at 0945, For 2 doses, MAX total dose = 8 mg, including OR dosing. If not resolved in 15 minutes, then go to step 2 (Prochlorperazine if ordered)., PACU/Phase II documented in this encounter Care Teams Stringed Instrument Assembler Relationship Specialty Start Date End Date Ghanshyam Hassan PCP - General 04/19/11 02/21/12 [id number] [address] DE[place]ON [id number] documented as of this encounter
--- OUTSIDE RECORDS SUMMARY | 2022-03-23 17:28 | XMS_ITS | Encounter Summary ---
:1980 Author Organization [place] Address [address] [place] [address] Care Team Providers Name Role Phone Ghanshyam Hassan Primary Care Provider [phone] Reason for Visit Auth/Cert - Closed Specialty Diagnoses / Procedures Referred By Contact Refer red To Contact Surgery Diagnoses Pelvic Pain, Infertility Rh Periop Services Procedures LAPAROSCOPY DIAGNOSTIC (STRETCHER OPERATOR) [address] [place], [place] [address] Phone: Fax: Referral ID Status Reason Start Date Expiration Date Visits Requ ested Visits Authorized [id number] Closed 04/22/2011 10/19/2011 1 1 Encounter Details Date Type Department Care Team Description 04/23/2011 Surgery [facility] Stephen Mahajan LAPA ROSCOPY DIAGNOSTIC, [place] PeriOp MD Kiran pelvic exam under Services [address] anesthesia, Fulguration [address] [place] [address] Of Endometriosis [place], [place] [phone] (Wo rk) [phone] Surgery Details Date/Time Status Location OR Service Patient Case Case Traum a Class Class Type Case? 04/23/11 10:30 Posted [facility] OR OR 10 Gynecology Same Day AM Surgery Panel 1 Procedure [facility] Anes Op Region Wound Class Commen ts LAPAROSCOPY DIAGNOSTIC, N/A General Abdomen I-Clean L APAROSCOPY DIAGNOSTIC, pelvic exam under pelvic exam under anesthesia, Fulguration Of anesthesia, Fulguration Endometriosis Of Endometr iosis Surgeon Surgeon Role Service Panel Stephen Mahajan MD Primary Gynecology 1 David Delgado MD Assisting Gynecology 1 documented in this encounter Social History Tobacco [...] Comments Blood Pressure 113/70 04/23/2011 1:35 PM PROJECTION TECHNICIAN Pulse 71 04/23/2011 9:14 AM PROJECTION TECHNICIAN Temperature 36.5 ??C (97.7 ??F) 04/23/2011 12:57 PM PROJECTION TECHNICIAN Respiratory Rate 14 04/23/2011 12:57 PM PROJECTION TECHNICIAN Oxygen Saturation 100% 04/23/2011 2:00 PM PROJECTION TECHNICIAN Inhaled Oxygen Concentration - - Weight 77.1 kg (170 lb) 04/23/2011 9:14 AM PROJECTION TECHNICIAN Height 167.6 cm (5' 6) 04/23/2011 9:14 AM PROJECTION TECHNICIAN Body Mass Index 27.44 04/23/2011 9:14 AM PROJECTION TECHNICIAN documented in this encounter Discharge Instructions Discharge [...] BE REMOVED. SOME STITCHES DISSOLVE OVER TIME. ECTION TECHNICIAN documented in this encounter Medications at Time [...] Notes Sirisha, Provider - 04/19/2011 2:08 PM PROJECTION TECHNICIAN ECTION TECHNICIAN documented in this encounter Nursing Notes Fadumo Ramirez RN - 04/23/2011 12:49 PM CST Patient medicated for post-op pain with adequate relief. IV pain med followed with oral [place]. Readyfor transfer to Phase II. ECTION TECHNICIAN documented in this encounter OR Notes OR Anesthesia - Stephen Mahajan MD - 04/24/2011 10:29 AM PROJECTION TECHNICIAN ECTION TECHNICIAN documented in this encounter Miscellaneous Notes Initial Assessments - Stephen Mahajan MD - 04/24/2011 10:14 AM PROJECTION TECHNICIAN ECTION TECHNICIAN Op Note - Stephen Mahajan MD - 04/23/2011 11:30 AM CST PREOPERATIVE DIAGNOSIS: Pelvic pain. POSTOPERATIVE DIAGNOSIS: Mild endometriosis. PROCEDURE: Laparoscopy, fulguration of multiple endometriotic implants. SURGEON: Stephen Mahajan MD SALES LEDGER CLERK: David Delgado MD ANESTHESIA: General endotracheal. INDICATIONS: [...] MAHAJAN MD MT: [id number] Name: SHAMIR NOLASCO MRN: [id number] Account: [id number] : 1980 Procedure Date: 04/23/2011 Document: [id number] cc: [facility] ECTION TECHNICIAN Op Note - Stephen Mahajan MD - 04/23/2011 11:24 AM CST See dictated Op Note ECTION TECHNICIAN Brief Op Note - Stephen Mahajan MD - 04/23/2011 11:20 AM CST Pre op dx: Pelvic pain Post op dx: Mild endometriosis, fulgarated Procedure: Diagnostic laparoscopy, fulgaration of endometriosis Surgeon: Jose Luis Asst: Danny Anesthesia: GET Findings: Endometriotic implants in post culdesac, anterior culdesac and right ovarian fossa. Normaluterus, tubes and ovaries bilaterally. Normal appendix and upper abdomen. Compl: None EBL: 10cc ECTION TECHNICIAN documented in this encounter Plan of Treatment Not on filedocumented as of this encounter Procedures Procedure Name Priority Date/Time Associated Diagnosis Comme nts LAPAROSCOPY 04/23/2011 10:06 endometriosis AM PROJECTION TECHNICIAN HCG QUALITATIVE STAT 04/23/2011 9:15 AM Result s for this URINE PROJECTION TECHNICIAN procedure are i n the results section. documented in this encounter Results HCG qualitative urine (04/23/2011 9:15 AM PROJECTION TECHNICIAN) P athologist Signature HCG Qual Urine Negative NEG [facility] Specimen Anatomical Collection Method Collection Time Receive d Time (Source) Location / / Volume Laterality Urine specimen URINE SPECIMEN 04/23/2011 9:15 AM 04/23 9:51 (specimen) OBTAINED BY CLEAN PROJECTION TECHNICIAN AM PROJECTION TECHNICIAN CATCH PROCEDURE / Unknown Stephen Mahajan MD LAB - URINE ORDERABLES Performing Organization Address City/State/ZIP Code Phon e Number [facility] [address] [place], [place] [address] [facility] documented in this encounter Visit Diagnoses Not on filedocumented in this encounter Administered Medications Inactive Administered Medications - up to 3 most recent administrations Medication Order MAR Action Action Date Dose Rate Site fentanyl (SUBLIMAZE) injection Given 04/23/2011 12:22 PM PROJECTION TECHNICIAN 50 mcg 25-50 mcg 25-50 mcg, Intravenous, EVERY 2 MIN PRN, other, acute pain, Starting on Fri04/23/11 at 0945, MAX cumulative dose = 250 mcg. Use Fentanyl initially, as a short acting agent for acute pain control. If insufficient, or a longer acting agent is needed, begin Morphine or Hydromorphone if ordered., PACU Given 04/23/2011 11:30 AM PROJECTION TECHNICIAN 25 mcg Given 04/23/2011 11:25 AM PROJECTION TECHNICIAN 25 mcg hydrocodone-acetaminophen 5-325 MG per Given 04/23/2011 12:46 PM PROJECTION TECHNICIAN 1 tablet tablet 1-2 tablet 1-2 tablet, Oral, ONCE, On Fri04/23/11 at 1145, For 1 dose, One time prior to discharge., Post-procedure HYDROmorphone (DILAUDID) injection 0.2-0.4 Given 04/23/2011 12:08 PM PROJECTION TECHNICIAN 0.2 mg mg 0.2-0.4 mg, Intravenous, EVERY 5 MIN PRN, moderate to severe pain, acute pain. May administer if RR is > 10 , Starting on Fri04/23/11 at 0945, If fentanyl is also ordered, use HYDROmorphone if pain control insufficient with fentanyl or a longer acting agent is needed. Max cumulative dose = 2 mg , PACU Given 04/23/2011 11:56 AM PROJECTION TECHNICIAN 0.4 mg Given 04/23/2011 11:49 AM PROJECTION TECHNICIAN 0.4 mg ketorolac (TORADOL) injection 30 mg Given 04/23/2011 11:30 AM PROJECTION TECHNICIAN 30 mg 30 mg, Intravenous, ONCE, On Fri04/23/11 at 1145, For 1 dose, PACU lactated ringers infusion New Bag 04/23/2011 12:48 PM PROJECTION TECHNICIAN 1,000 mLs 100 mL/hr at 100 mL/hr, Intravenous, CONTINUOUS, Continue until IV catheter is weaned, PACU/Phase II, Starting on Fri04/23/11 at 1000, Until 04/24/11 at 0148 ondansetron (ZOFRAN) injection 4 mg Given 04/23/2011 12:13 PM PROJECTION TECHNICIAN 4 mg 4 mg, Intravenous, EVERY 30 MIN PRN, nausea, Administer over 2-5 Minutes, Starting on Fri04/23/11 at 0945, For 2 doses, MAX total dose = 8 mg, including OR dosing. If not resolved in 15 minutes, then go to step 2 (Prochlorperazine if ordered)., PACU/Phase II documented in this encounter Active and Recently Administered Medications Times are shown in PROJECTION TECHNICIAN. Scheduled Medication Order 04/21/2011 04/22/2011 04/23/2011 hydrocodone-acetaminophen 5-325 MG per tablet 1-2 tablet (COMPLE ROSALIE) 1246 (Given - Provider: Fadumo Ramirez RN) 1-2 tablet, Oral, ONCE, Fri04/23/11 at 1 145, For 1 dose, One time prior to discharge., Post-procedure ketorolac (TORADOL) injection 30 mg (COMPLETED) 1130 (Given - Provider: Fadumo Ramirez RN) 30 mg, Intravenous, ONCE, Fri04/23/11 at 1145, For 1 dose, PACU Continuous [...] Fadumo Ramirez RN - Comment: pain level 7/10)1119 (Given - Provider: Fadumo Ramirez RN)1125 (Given - Provider: Fadumo Ramirez RN)1130 (Given - Provider: Fadumo Ramirez RN)1222 (Given - Provider: Jovana Salgado) 25-50 mcg, [...] II documented in this encounter Care Teams Gold Leaf Layer Relationship Specialty Start Date End Date Ghanshyam Hassan PCP - General 04/19/11 02/21/12 [id number] [place] DELEON [id number] documented as of this encounter
--- OUTSIDE RECORDS SUMMARY | 2022-03-23 17:28 | XMS_ITS | Encounter Summary ---
:1980 Author Organization [place] Address [address] [place] [id number] Care Team Providers Name Role Phone Unavailable Primary Care Provider Unavailable Encounter Details Date Type Department Care Team Description 05/23/2005 Delivery Summary Dominique Mahajan MD (Convolute Tube Winder) [address] [place], [place] [address] (Wo rk) Social History Tobacco Use Types Packs/Day Years Used Date Smoking Tobacco: Never Assessed Alcohol Habits Answer Date Recorded How often [...] on file documented as of this encounter Progress Notes Allen Mahajan - 05/23/2005 11:59 PM CRUSHER FEEDER PRELIMINARY DELIVERY SUMMARY: Shamir Nolasco is a 25-year-old female, 1, para 0 at 39 weeks' gestation who was admitted for induction of labor secondary to severe back pain, which was unresponsive to conservative measures antenatally. She received Cytotec x1 on 05/22/2005, changed her cervix to 1 cm dilated, 80 percent effaced, had received epidural anesthesia secondary to regular contractions by the morning of 05/23/2005. At approximately 07:00 a.m., artificial rupture of membranes was accomplished again with the cervix at 1, 80 percent, -2 with clear fluid noted. A reactive heart rate tracing and a Pitocin induction was initiated per active management protocol. The patient progressed rather quickly to complete cervical dilatation by 10:00 a.m., and at 10:15 a.m., had a normal spontaneous vaginal delivery of an 8-pound 10-ounce female infant over a midline perineal laceration. Apgars were 8 at 1 minute, 9 at 5 minutes. The laceration was first degree in nature and it was repaired with 3-0 Vicryl in layers. The placenta delivered spontaneously intact with a 3- vessel umbilical cord, 4 minutes after delivery of the . Estimated blood loss was 300 cc. There were no intrapartum complications. Group B strep status antenatally was negative. ALLEN MAHAJAN MD MT: SIVAKUMAR Name: SHAMIR NOLASCO Account: [id number] : 1980 Delivery Date: 05/23/2005 Document: [id number] HER FEEDER documented in this encounter Plan of Treatment Not on filedocumented as of this encounter Visit Diagnoses Not on filedocumented in this encounter
--- OUTSIDE RECORDS SUMMARY | 2022-03-23 17:28 | XMS_ITS | Encounter Summary ---
:1980 Author Organization [place] Address [facility] [place] [address] Care Team Providers Name Role Phone Gricel Beau[place] Warren Primary Care Provider [phone] Encounter Details Date Type Department Care Team Description 04/23/2011 Anesthesia Event [facility] Gabriel Gunter [facility] Brooks Navarro MD [address] [place] [address] ANESTHESIA [id number] [place], [place] [address] (Wo rk) Anesthesia Record Procedure Summary Procedure Name Responsible Anesthesia Start Anesthesia Stop Anesthesiologist Time Time LAPAROSCOPY Kiran Gunter MD 04/23/11 1012 2 1109 DIAGNOSTIC, pelvic exam under anesthesia, Fulguration Of Endometriosis (Abdomen) Events Date Time Event Comment 04/23/2011 1012 1012 An Start 1109 An Stop No medications on file. Agents No agents on file. Blood No blood administrations on file. Lines, Drains, and Airways Type Details Placement Removal Peripheral IV 04/23/11; 0944; 18 G; 04/23/11 0944 by 04/23/11 1435 by Left; Lower forearm; Kiran Gunter Shove in, Umu A, Alcohol; Injectable; RN Tolerated well RETIRED ETT Airway Size: 7; Cuffed; 04/23/11 1028 by 01/10/1 2 1104 by Oral endotracheal tube; Schumach er, Neymar Blade Type: [place]; Tiffanie Hidalgo FAMILY SERVICES WORKER Blade Size: 3; Place by: [email or web address]; Insertion Attempts: 2; Secured at (cm)to lip: 22 cm; Breath Sounds: Equal, clear and bilateral; End Tidal CO2: Present; Dentition: Intact; Grade View of Cords: 2 Urethral Catheter 04/23/11; 1035; 16 fr 04/23/11 1035 by 2 1058 by Caitlyn Kunz RN Ulrich, Sa rah Mae, RN Incision/Surgical Site 04/23/11; 1047; Abdomen 04/23/11 1047 by 04/28/12 0843 by (port sites); 04/28/12; Caitlyn Kunz RN Ri Dena taylor, 0843 RN documented in this encounter Social History [...] encounter OR Notes Anesthesia Postprocedure Evaluation - Kiran Gunter MD - 04/23/2011 12:42 PM CST Anesthesia Post-Evaluation Note Patient: Lacey Nolasco Patient Condition Respiratory Function (RR / SpO2 / Airway Patency): Satisfactory Cardiac Function (HR / Rhythm / BP): Satisfactory Mental Status: Satisfactory Temperature: Satisfactory Pain Control: Satisfactory PONV: None or treated Beta-Patti Therapy: None indicated B/P: 110/68, T: 98.8, P: 71, R: 7 AKollitzMD PHONE DIRECTORY DELIVERER Anesthesia Preprocedure Evaluation - Kiran Gunter MD - 04/23/2011 9:43 AM CST Anesthesia Evaluation history and physical reviewed . Pt has had prior anesthetic. Type: General No hx of anesthetic complications ROS/MED HX Pulmonary: - neg pulmonary ROS Neurologic: - neg neurologic ROS Cardiovascular: - neg cardiovascular ROS METS/Exercise Tolerance: Hematologic: - neg hematologic ROS Musculoskeletal: - neg musculoskeletal ROS GI/Hepatic: - neg GI/hepatic ROS Renal: - neg renal ROS Endo: - neg endo ROS Psychiatric: - neg psychiatric ROS Infectious Disease: - neg infectious disease ROS Other: - neg other ROS (+) no H/O Chronic Pain, Physical Exam Normal systems: dental Airway Mallampati: II TM distance: >3 FB Neck ROM: full Dental Cardiovascular Rhythm and rate: regular and normal (-) no murmur Pulmonary breath sounds clear to auscultation(-) no rhonchi, no wheezes and no rales Anesthesia Plan ASA Score 1 . Plan for General and ETT with Propofol induction. Maintenance will be Balanced. Routine analgesia and antiemetics to be used for post- operative care. Anesthetic plan, risks, benefits andalternatives discussed with: patient or construction sales representative. Possibility of blood products discussed. . PHONE DIRECTORY DELIVERER documented in this encounter Miscellaneous Notes Anesthesia Care Transfer Note - Neymar Norman APRN CRNA - 04/23/2011 11:09 AM CST Anesthesia Care Transfer Note Patient: Lacey Nolasco Transferred to: PACU Patient vital signs: stable Airway: nonePt extubated,awake responds to command, airway clear PHONE DIRECTORY DELIVERER documented in this encounter Plan of Treatment Not on filedocumented as of this encounter Visit Diagnoses Not on filedocumented in this encounter Care Teams Supervisor Food Checkers And Cashiers Relationship Specialty Start Date End Date Ghanshyam Hassan PCP - General 04/19/11 02/21/12 [id number] [address] [id number] documented as of this encounter
--- OUTSIDE RECORDS SUMMARY | 2022-03-23 17:28 | XMS_ITS | Encounter Summary ---
:1980 Author Organization [place] Address [address] [place] [address] Care Team Providers Name Role Phone Unavailable Primary Care Provider Unavailable Encounter Details Date Type Department Care Team Description 05/22/2005 Historic Results INTERFACED REPORT Kiran Ochoa MD [facility] [address] [id number] (Wo rk) Social History Tobacco Use Types [...] Procedure Name Priority Date/Time Associated Comments Diagnosis UA MACROSCOPIC WITH Routine 05/22/2005 8:00 PM Re sults for this REFLEX TO MICRO WEB PRODUCTION MANAGER procedure ar e in the results section. documented in this encounter Results (ABNORMAL) UA macroscopic with reflex to micro (05/22/2005 8:00 PM WEB PRODUCTION MANAGER) [facility] Method Time Signature Source Midstream MISYS Urine Color Urine Yellow MISYS Appearance Urine Clear MISYS Glucose Urine 250 (A) NEG mg/dL MISYS Bilirubin Urine Negative NEG MISYS Ketones Urine Negative NEG mg/dL MISYS Specific [place] 1.020 1.003 - MISYS Urine 1.035 Blood Urine Negative NEG MISYS pH Urine 5.5 5.0 - 7.0 MISYS pH Protein Albumin Negative NEG mg/dL MISYS Urine Urobilinogen 0.2 0.2 - 1.0 MISYS Urine EU/dL Nitrite Urine Negative NEG MISYS Leukocyte Negative NEG MISYS Esterase Urine Specimen Anatomical Collection Method Collection Time Receive d Time (Source) Location / / Volume Laterality 05/22/2005 8:00 PM 8:21 WEB PRODUCTION MANAGER PM WEB PRODUCTION MANAGER Kiran Ochoa MD LAB - URINE ORDERABLES Performing Organization Address City/State/ZIP Code Phon e Number MISYS documented in this encounter Visit Diagnoses Not on filedocumented in this encounter
--- OUTSIDE RECORDS SUMMARY | 2022-03-23 17:28 | XMS_ITS | Encounter Summary ---
:1980 Author Organization [facility] Address [address] [place] [address]. [place] [address] Care Team Providers Name Role Phone Ghanshyam Hassan Primary Care Provider [phone] Reason for Visit Reason Comments Post-op Problem laproscopic endometrial surg marysol released 15:30-vomiting since then-unable to keep pain med s down. Encounter Details Date Type Department Care Team Description 04/24/2011 Emergency [facility] Cassie Jeffersonit ing; [facility] Emergency Dep t MD Christopher Post-operative pain [address] [facility] [place] [address] [address] [facility] [phone] [place], [place] [address] (Wo rk) Social History [...] Sign Reading Time Taken Comments Blood Pressure 105/75 04/24/2011 2:18 AM MANAGER E LEARNING Pulse 78 04/24/2011 1:00 AM MANAGER E LEARNING Temperature 36.7 ??C (98 ??F) 04/24/2011 2:18 AM MANAGER E LEARNING Respiratory Rate 18 04/24/2011 2:18 AM MANAGER E LEARNING Oxygen Saturation 99% 04/24/2011 2:18 AM MANAGER E LEARNING Inhaled Oxygen Concentration - - Weight - - Height - - Body Mass Index - - documented in this encounter Discharge Instructions Discharge InstructionsCassie Jefferson MD - 04/24/2011 2:12 AM MANAGER E LEARNING Discharge Instructions Abdominal Pain Abdominal pain can be caused by many things. Your evaluation today does not show the exact cause foryour pain. Your doctor today has decided that [...] the Emergency Department for a recheck in 8-12 hours if your pain continues. If your pain gets worse, changes in location, or feels different, [...] new symptoms or anything that worries you. CHILDREN: Return to the Emergency Department right away if your child has any of the above-listed symptoms or the following: Pushes your hand away or screams/cries when his/her belly is touched. You notice your child is very fussy or weak. Your child is very tired and is too tired to eat or drink. Your child is dehydrated. Signs of dehydration can be: o Your has had no wet diapers in 4-5 hours. o Your older child has not passed urine in 6-8 hours. o Your or child starts to have dry mouth and lips, or no saliva or tears. WOMEN: Return to the Emergency Department right [...] directed by your doctor today. Before using [id number] medications, ask your doctor and make sure [...] or if there is anythingthat worries you. GER E LEARNING documented in this encounter Medications at Time [...] Severe Pain). documented as of this encounter ED Notes Erika Johnston - 04/24/2011 1:49 AM CSTBed:A06
Expected date:
Expected time:
Means of arrival:
Comments:
PT IS HERE JUST CAN'T MOVE INTO ROOM YET Cassie Jefferson MD - 04/24/2011 12:27 AM CST History Chief Complaint: Post-op Problem HPI Lacey Nolasco is a 31 year old female who presents with a post-op problem. The patient underwent a laparoscopic surgery earlier today for endometriosis. She tolerated the procedure well and there were no immediate complications. She was discharged from the hospital at 1530. However, at about 1630 today she developed some nausea and vomiting. She has since been unable to keep any of her medicationsdown as well as any food or liquids. She has also developed some periumbilical abdominal pain and a frontal headache. She states she has had several episodes of near syncope, but has not actually passed out. She has not had any hematemesis. She has not had a bowel movement since the surgery. She denies any fevers, chills, chest pain, shortness of breath, urinary symptoms, vaginal bleeding or discharge, or other physical concerns. Allergies: Ambien Medications: [place] Past Medical History: History reviewed. No pertinent past medical history. Past Surgical History: Laparoscopy, fulguration of multiple endometriotic implants Tonsillectomy Family / Social History: History reviewed. No pertinent family history. The patient does drink occasionally. She does not smoke. Review of Systems Constitutional: Negative for fever, chills and fatigue. Respiratory: Negative for shortness of breath. Cardiovascular: Negative for chest pain. Gastrointestinal: Positive for nausea, vomiting and abdominal pain. Negative for diarrhea and constipation. Negative for hematemesis. Genitourinary: Negative for dysuria, urgency, frequency, hematuria, decreased urine volume, vaginal bleeding, vaginal discharge and difficulty urinating. Neurological: Positive for light-headedness and headaches. Negative for syncope. All other systems reviewed and are negative. Physical Exam First Vitals: BP: 118/76 mmHg Pulse: 106 Temp: 98.6 ??F (37 ??C) Resp: 16 SpO2: 98 % Physical Exam Nursing note and vitals reviewed. Constitutional: She is oriented to person, place, and time. Pleasant, well groomed. Lying in darkened room, appears uncomfortable. HENT: Mouth/Throat: Oropharynx is clear and moist. Eyes: Conjunctivae are normal. Pupils are equal, round, and reactive to light. No scleral icterus. Neck: Neck supple. Cardiovascular: Normal rate, regular rhythm and intact distal pulses. Pulmonary/Chest: Effort normal and breath sounds normal. Abdominal: Soft. She exhibits no distension. Tenderness is present. Suprapubic tenderness. No guarding. No rebound. Musculoskeletal: She exhibits no edema. No calf tenderness Neurological: She is alert and oriented to person, place, and time. Coordination normal. Upper and lower extremity strength intact throughout. Skin: Skin is warm and dry. No rash noted. No pallor. Psychiatric: She has a normal mood and affect. Emergency Department Course Laboratory: CBC: WNL (WBC 9.1, HGB 12.9, Platelets 271) CMP: Glucose 136 high, o/w WNL (Creatinine 0.66) UA: Glucose 150, Ketone 10, Moderate amount of blood, Few bacteria, Epithelial 8 high, Mucus present, o/w negative UPT: Negative Interventions: Ativan 0.5 mg IV Dilaudid 0.4 mg IV NS 1 L IV x2 Zofran 4 mg IV Morphine 4 mg IV Zofran 4 mg ODT Emergency Department Course: I reviewed the patient's old medical records and performed a thorough exam of the patient. IV inserted and blood drawn. Rechecked the patient, findings and plan explained to the patient. Patient discharged home, status improved, with instructions regarding supportive care, medications, and reasons to return as well as the importance of close follow-up was reviewed. Impression & Plan Medical Decision Making: This patient presents with nausea and vomiting this evening after having had a laparoscopic procedure for endometriosis. She then developed some abdominal pain and she was not able to keep her pain medications down. The differential diagnosis included but was not limited to gastroenteritis, adverse effect of medication/anesthesia, obstruction, intraabdominal bleed, UTI. On arrival, she had suprapubic abdominal tenderness but no guarding. She is afebrile. With antiemetics and IV fluids the patient is feeling much better. She is now taking fluids and has not had furtheremesis. The patient reports that she now feels ready to go home and is requesting a discharge. With a reasonable clinical certainty I feel that the patient is safe for discharge home. Her ED evaluationas noted above was non-diagnostic. The patient understands that she should return to the ER with newor worse symptoms or if she is not tolerating fluids at home. Otherwise, she is to call her surgeon in the morning to discuss her symptoms and tonight's visit. Diagnosis: 1. Vomiting. 2. Abdominal Pain 3. Post operative pain. Disposition Plan: She will be discharged to home with standard [facility] abdominal pain instructions as well as the recommendation as noted above. She was provided with Zofran ODT tablets for her nausea. IMohsen, am serving as a scribe at 11:00 PM on 04/23/2011 to document services personally performed by Dr. Jefferson, based on my observations and the provider's statements to me. Cassie Jefferson MD 04/24/11 0527 Cassie Jefferson MD 04/24/11 0552 Cassie Jefferson MD 05/09/11 1216 GER E LEARNING Alyse Mata RN - 04/23/2011 10:45 PM CST Lap. Surgery for endometriosis today, DC'd about 1430, at home about 1700 continuous n/v. Also c/o 01/21 [place]. GER E LEARNING Berta Garcia - 04/23/2011 10:15 PM CST Spoke with Dr. Schneider regarding patient. GER E LEARNING Berta Garcia - 04/23/2011 10:02 PM CST Alert and oriented x 3. ABC intact. Pt pale. Mucous membranes dry. GER E LEARNING documented in this encounter Plan of Treatment Not on filedocumented as of this encounter Procedures Procedure Name Priority Date/Time Associated Comments Diagnosis HCG QUALITATIVE URINE STAT 04/24/2011 12:04 Re sults for this AM MANAGER E LEARNING procedure are i n the results section. ROUTINE UA WITH Routine 04/24/2011 12:04 Results for this MICROSCOPIC AM MANAGER E LEARNING procedure are i n the results section. COMPREHENSIVE STAT 04/23/2011 10:15 Results fo r this METABOLIC PANEL PM MANAGER E LEARNING procedure ar e in the results section. CBC WITH PLATELETS STAT 04/23/2011 10:15 Resul ts for this PM MANAGER E LEARNING procedure are i n the results section. documented in this encounter Results HCG qualitative urine (04/24/2011 12:04 AM MANAGER E LEARNING) P athologist Signature HCG Qual Urine Negative NEG [facility] Specimen Anatomical Collection Method Collection Time Receive d Time (Source) Location / / Volume Laterality Urine specimen 04/24/2011 12:04 2 (specimen) AM MANAGER E LEARNING 12:15 AM MANAGER E LEARNING Cassie Jefferson MD LAB - URINE ORDERABLES Performing Organization Address City/State/ZIP Code Phon e Number [facility] [address] [place], [place] [address] [facility] (ABNORMAL) Routine UA with microscopic (04/24/2011 12:04 AM MANAGER E LEARNING) Patholo gist Method Time Signature Color Urine Yellow [facility] Appearance Urine Clear [facility] Glucose Urine 150 (A) NEG mg/dL [facility] Bilirubin Urine Negative NEG [facility] Ketones Urine 10 (A) NEG mg/dL [facility] Specific [place] 1.018 1.003 - [place] Urine 1.035 [facility] Blood Urine Moderate (A) NEG [facility] pH Urine 7.0 5.0 - 7.0 [place] pH [facility] Protein Albumin Negative NEG mg/dL [facility] Urobilinogen Normal 0.0 - 2.0 [place] mg/dL mg/dL [facility] Nitrite Urine Negative NEG [facility] Leukocyte Negative NEG [place] Esterase Urine [facility] Source Midstream [facility] WBC Urine <1 0 - 2 [facility] RBC Urine 1 0 - 2 [facility] Bacteria Urine Few (A) NEG /HPF [facility] Squamous 8 (H) 0 - 1 [place] Epithelial /HPF /HPF [facility] Transitional Epi <1 0 - 1 [facility] Mucous Urine Present (A) NEG /LPF [facility] Specimen Anatomical Collection Method Collection Time Receive d Time (Source) Location / / Volume Laterality Urine specimen 04/24/2011 12:04 2 (specimen) AM MANAGER E LEARNING 12:15 AM MANAGER E LEARNING Cassie Jefferson MD LAB - URINE ORDERABLES Performing Organization Address City/State/ZIP Code Phon e Number [place] [id number] [place], [place] [address] [facility] CBC (platelets, no diff) (04/23/2011 10:15 PM MANAGER E LEARNING) P athologist Signature WBC 9.1 4.0 - 11.0 [place] 10e9/L [facility] RBC Count 4.39 3.8 - 5.2 [place] 10e12/L [facility] Hemoglobin 12.9 11.7 - [place] 15.7 g/dL [facility] Hematocrit 38.8 35.0 - [place] 47.0 % [facility] MCV 88 78 - 100 [place] fl [facility] MCH 29.4 26.5 - [facility] pg [facility] MCHC 33.2 31.5 - [place] 36.5 g/dL [facility] RDW 14.0 10.0 - [place] 15.0 % [facility] Platelet Count 271 150 - 450 [place] 10e9/L [facility] Specimen Anatomical Collection Method Collection Time Receive d Time (Source) Location / / Volume Laterality Blood specimen 04/23/2011 10:15 2 (specimen) PM MANAGER E LEARNING 10:37 PM MANAGER E LEARNING Che Schneider MD LAB - BLOOD ORDERABLES Performing Organization Address City/State/ZIP Code Phon e Number [place] [id number] [place], [place] [address] [facility] (ABNORMAL) Comprehensive metabolic panel (04/23/2011 10:15 PM MANAGER E LEARNING) Analysis Performed At Patho logist Time Signature Sodium 135 133 - 144 [place] mmol/L [facility] Potassium 4.2 3.4 - 5.3 [place] mmol/L [facility] Chloride 102 94 - 109 [place] mmol/L [facility] Carbon Dioxide 24 20 - 32 [place] mmol/L [facility] Anion Gap 10 6 - 17 [place] mmol/L [facility] Glucose 136 (H) 60 - 99 [place] mg/dL [facility] Urea Nitrogen 14 5 - 24 [place] mg/dL [facility] Creatinine 0.66 0.52 - [facility] 1.[facility] mg/dL [facility] GFR Estimate >90 >60 [place] mL/min/1.[address] LAB GFR Estimate If >90 >60 [place] Black mL/min/1.[address] [place] [address] LAB Calcium 9.5 8.5 - 10.4 [place] mg/dL [facility] Bilirubin Total 0.7 0.2 - 1.3 [place] mg/dL [facility] Albumin 4.3 3.9 - 5.1 [place] g/dL [facility] Protein Total 7.1 6.8 - 8.8 [place] g/dL [facility] Alkaline 65 40 - 150 [place] Phosphatase U/L [facility] ALT 20 0 - 50 U/L [facility] AST 24 0 - 45 U/L [facility] Specimen Anatomical Collection Method Collection Time Receive d Time (Source) Location / / Volume Laterality Blood specimen 04/23/2011 10:15 2 (specimen) PM MANAGER E LEARNING 10:37 PM MANAGER E LEARNING Che Schneider MD LAB - BLOOD ORDERABLES Performing Organization Address City/State/ZIP Code Phon e Number [facility] [address] [place], [place] [address] [facility] documented in this encounter Visit Diagnoses Diagnosis Vomiting Vomiting alone Post-operative pain Other acute postoperative pain documented in this encounter Administered Medications Inactive Administered Medications - up to 3 most recent administrations Medication Order MAR Action Action Date Dose Rate Site HYDROmorphone (DILAUDID) Given 04/23/2011 11:24 PM MANAGER E LEARNING 0.4 mg injection 0.4 mg 0.4 mg, Intravenous, EVERY 15 MIN PRN, moderate to severe pain, Starting on Fri04/23/11 at 2311, For 3 doses lorazepam (ATIVAN) injection 0.5 mg Given 04/23/2011 11:15 PM MANAGER E LEARNING 0.5 mg 0.5 mg, Intravenous, ONCE, On Fri04/23/11 at 2315, For 1 dose morphine 4 MG/ML injection Starting on Fri04/23/11 at 2222, For 1 dose, BERTA GARCIA: Cabinet Override morphine injection 4 mg Given 04/23/2011 10:29 PM MANAGER E LEARNING 4 mg 4 mg, Intravenous, ONCE, On Fri04/23/11 at 2230, For 1 dose ondansetron (ZOFRAN) 2 MG/ML injection Starting on Fri04/23/11 at 2222, For 1 dose, BERTA GARCIA: Cabinet Override ondansetron (ZOFRAN) injection 4 mg Given 04/23/2011 10:29 PM MANAGER E LEARNING 4 mg 4 mg, Intravenous, ONCE, Administer over 2-5 Minutes, On Fri04/23/11 at 2230, For 1 dose ondansetron (ZOFRAN-ODT) disintegrating tablet Given 0 04/23/2011 10:03 PM MANAGER E LEARNING 4 mg 4 mg 4 mg, Oral, ONCE, On Fri04/23/11 at 2215, For 1 dose, With dry hands, peel back foil backing and gently remove tablet; do not push oral disintegrating tablet through foil backing; administer immediately on tongue and oral disintegrating tablet dissolves in seconds; then swallow with saliva; liquid not required. sodium chloride 0.9 % BOLUS New Bag 04/24/2011 1:25 AM MANAGER E LEARNING 1,000 m Ls 1000 mL/hr 1,000 mL Intravenous, 1,000 mL, ONCE, at 1,000 mL/hr, Administer over 1 Hours, On 04/23/11 at 2230, For 1 dose New Bag 04/23/2011 10:29 PM MANAGER E LEARNING 1,000 mLs 1000 mL/hr documented in this encounter Active and Recently Administered Medications Times are shown in MANAGER E LEARNING. Scheduled Medication Order 04/22/2011 04/23/2011 04/24/2011 lorazepam (ATIVAN) injection 0.5 mg (COMPLETED) 2314 (Given - Provider: Alyse Mata, LEELA) 0.5 mg, Intravenous, ONCE, 04/23/11 at 2315, For 1 dose morphine injection 4 mg (COMPLETED) 2228 (Given - Provider: Alyse Larios RN) 4 mg, Intravenous, ONCE, 04/23/11 at 2230, For 1 dose ondansetron (ZOFRAN) injection 4 mg (COMPLETED) 2228 (Given - Provider: Alyse Larios RN) 4 mg, Intravenous, ONCE, for 2 Minutes, 04/23/11 at 2230, For 1 dose ondansetron (ZOFRAN-ODT) disintegrating tablet 4 mg (COMPLET ED) 2202 (Given - Provider: Berta Garcia) 4 mg, Oral, ONCE, 04/23/11 at 2215, F or 1 dose, With dry hands, peel back foil backing and gently remove tablet; do not push oral disintegrating tablet through foil backing; administer immediately on tongue and oral disintegrating tablet d issolves in seconds; then swallow with saliva; liquid not required. sodium chloride 0.9 % BOLUS 1,000 mL (COMPLETED) 0010 (Stopped - Provider: Alyse Mata RN)222 (New Bag - Provider: Alyse Larios RN)2323 (z Missed (do not use) - Provider: Alyse Mata RN - Reason: Other - Comment: entered in error) 0125 (New Bag - Provider: Alyse New, LEELA)0214 (Stopped - Provider: Alyse Mata, LEELA) Intravenous, 1,000 mL, ONCE, at 1,000 mL /hr, for 1 Hours, 04/23/11 at 2230, For 1 dose PRN Medication Order 04/22/2011 04/23/2011 04/24/2011 HYDROmorphone (DILAUDID) injection 0.4 mg (CANCELED) 2324 (Given - Provider: Alyse Mata, LEELA) 0.4 mg, Intravenous, EVERY 15 MIN PRN, m oderate to severe pain, Starting 04/23/11 at 2311, For 3 doses documented in this encounter Care Teams Job Service Consultant Relationship Specialty Start Date End Date Ghanshyam Hassan PCP - General 04/19/11 02/21/[address] [place] [address] [place] [id number] documented as of this encounter
--- OUTSIDE RECORDS SUMMARY | 2022-03-23 17:28 | XMS_ITS | Encounter Summary ---
:1980 Author Organization [facility] Address [address] [place] [address] Care Team Providers Name Role Phone Ghanshyam Hassan Primary Care Provider [phone] Ghanshyam Hassan Primary Care Provider [phone] Allen Amaya MD Primary Care Provider [phone] Ghanshyam Hassan Primary Care Provider [phone] Medardo Graf Primary Care Provider Noelle Khan MD Unavailable [phone] Umu Duke MD Unavailable Umu Duke MD Unavailable Reason for Visit Reason Onset Date Comments Nurse Advice Line 04/23/2011 Encounter Details Date Type Department Care Team Description 04/23/2011 Telephone [facility] Allen Amaya e Advice Line [facility] MD Ghanshyam Beck [address] [facility] [place] [address] [address] [place] [address] Social History Tobacco Use Types [...] this encounter Miscellaneous Notes Telephone Encounter - Becky Yepez - 08/21/2011 6:41 AM CDT [facility] Triage Call Report Patient Name: Lacey Nolasco Call Date & Time: 04/23/2011 9:08:38PM Patient PCP Name: Patient Address: [address] [place], [place] [address], [place] [id number] Patient Date of : 1980 Age: 31 yr. Patient Gender: Female Timber Management Specialist Name: Kerrie Ponce Presenting Problem: I'm wondering if I should be seen? -laproscopic surgery done today at 10:30 this morning; discharged about 2 PM; very nauseous and has vomited many times; denies diarrhea; denies fever; sounds very dry; not keeping anything down Care advice given. Triage Note: Guideline Title: Postoperative Problems Recommended Disposition: Override Disposition: See ED Immediately Question Response Question Note Unconscious No New or worsening signs and symptoms that may indicate No shock Coughing up large amount of obvious blood (not No blood-streaked sputum) Severe breathing problems No Continuous or heavy bleeding from operative site and NOT No controlled with 10 minutes of steady pressure Wound separation AND internal organs protrude through No wound or surgical incision (evisceration) Any cardiac signs/symptoms for more than 5 minutes, now No or within last hour New neurological symptoms No New seizure now or within last 6 hours No New onset severe pain and pale, discolored or cool below No the surgical site compared to the other extremity Signs/symptoms of anaphylaxis develop within 60 minutes No of taking a medication Vomiting red, bloody or coffee-ground material, more than No streaks of blood or scant amount (not following nosebleed within past day) Passing red, black or tarry material from rectum AND No onset of new signs and symptoms of hypovolemia Hives /Urticaria /Rash No Abdominal bloating No Depression and no other symptoms No Neck lump/swelling No Breathing problems No Unbearable pain No New swelling, pain, tenderness, or red cord-like area in No extremity AND coughing up bloody sputum, or new difficulty breathing Signs of dehydration Yes Physician Contacted: Physician Instructions: No Care Advice: - Another adult should drive. - Write down provider's name. List or place the following in a bag for transport with the patient: current prescription and/or OTC medications; alternative treatments, therapies and medications; and street drugs. - Call EMS 911 if signs and symptoms of shock develop (such as unable to stand due to faintness, dizziness, or lightheadedness; new onset of confusion; slow to respond or difficult to awaken; skin is pale, lopez, cool, or moist to touch; severe weakness; loss of consciousness). - May drink clear liquids (such as water, cola or other soda, tea) but do not eat solid foods priorto discussing with provider. 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 documented as of this encounter Care Teams Rail Signal Mechanic Relationship Specialty Start Date End Date PEGGY Hassan - General 04/19/11 02/21/12 [place] [address] [address] [place] [address] PEGGY Hassan - General 02/22/12 02/22/12 [place] [address] [address] [place] [address] Allen Amaya, PCP - General whiskey filterer 02/23/12 Gricel Carmona PCP - General 04/08/12 11/14/[address] [place] [address] [place] [address] Medardo Graf PCP - General Family Practice 11/15/18 [facility] [address] [place] [address] Noelle Khan, Assigned Pulmonology 02/04/20 11/09/21 MD Provider [place] [address] [place], [place] [address] Umu Duke MD MD whiskey filterer 03/16/20 [address] [place], [place] [id number] Umu Duke MD Assigned OBGYN Provider 06/04/20 02/01/22 [address] [facility] [address] [place], [place] [id number] documented as of this encounter
--- OUTSIDE RECORDS SUMMARY | 2022-03-23 17:29 | XMS_ITS | Encounter Summary ---
:1980 [facility] Address [address], [place] [address] Care Team Providers Name Role Phone Needs Pcp, Assignment Primary Care Provider Encounter Details Date Type Department Care Team Description 01/22/2022 Office Visit Jesse Hernandez teral epicondylitis HDT Hand Therapy M, OTR/L of right elbow (Primary [address]) [place] [address] [phone] Social History Tobacco Use Types Packs/Day Years Used Date Smoking Tobacco: Never Smokeless Tobacco: Never Alcohol Use Standard Drinks/Week Comments Yes 1 (1 standard drink = 0.6 oz pure alcoho l) Sex Assigned at Date Recorded Not on file documented as of this encounter Progress Notes Jesse Wells, OTR/L - 01/22/2022 12:00 PM CDT Patient was not seen today. She needed to get back to work. She will call and schedule a OT appointment in the future. Jesse Wells OTR/L [id number], 01/22/2022, 12:24 PM documented in this encounter Plan of Treatment Not on filedocumented as of this encounter Visit Diagnoses Diagnosis Lateral epicondylitis of right elbow - P rimary Lateral epicondylitis of elbow documented in this encounter Care Teams Specimen Transporter Relationship Specialty Start Date End Date Needs Pcp, Assignment PCP - 08/12/14 [place] [address] documented as of this encounter
--- OUTSIDE RECORDS SUMMARY | 2022-03-23 17:29 | XMS_ITS | Encounter Summary ---
:1980 Author Organization [facility] Address [address] [address] Care Team Providers Name Role Phone Needs Pcp, Assignment Primary Care Provider Reason for Visit Reason Comments VAGINAL BLEEDING Encounter Details Date Type Department Care Team Description 05/12/2020 Office Visit Borger Certified Vida Baez leeding after intercourse (Primary Dx); Nurse Collar Tailor CARLITOS Gomez CNM Screening for STD (sexually transmitted disease) [address] [facility] [address] [place], [place] [address] [place], [place] [phone] (Wo rk) Social History Tobacco Use Types Packs/Day Years Used Date Smoking Tobacco: Never Smokeless Tobacco: Never Alcohol Use Standard Drinks/Week Comments Yes 1 (1 standard drink = 0.6 oz pure alcoho l) Sex Assigned at Date Recorded Not on file documented as of this encounter Last Filed Vital Signs Vital Sign Reading Time Taken Comments Blood Pressure 118/70 05/12/2020 2:21 PM NUTRITION DIRECTOR Pulse 98 05/12/2020 2:21 PM NUTRITION DIRECTOR Temperature - - Respiratory Rate - - Oxygen Saturation - - Inhaled Oxygen Concentration - - Weight 83.2 kg (183 lb 6.4 oz) 05/12/2020 2:21 PM NUTRITION DIRECTOR Height - - Body Mass Index 29.6 02/29/2020 3:43 PM NUTRITION DIRECTOR documented in this encounter Progress Notes Vida Baez APRN, CNM - 05/12/2020 2:10 PM CST Subjective: Patient ID: Lacey Nolasco is a 40 y.o. with Patient's last menstrual period was 04/24/2020. Chief Complaint: Bleeding after IC. She called the nurse line with the following complaints: Pt calling in requesting appt for vaginal bleeding that started after sexual intercourse Monday 05/08 and has continued. Started out red and like a light period, now mostly just with wiping. Her lmp was 04/24/20, periods are usually very light due to hx of endometrial ablation. Onset of bleeding was immediately after intercourse that pt describes as more vigorous than usual. She did not have any pain during the intercourse and no pain since. Denies abd pain, cramping, fever, heavy bleeding, dizziness, SOB. Appt scheduled as follows. Pt verbalizes understanding and agrees with plan. No further questions. Pt agrees to call back with questions, concerns, new/worsening/persistent sx. She states the bleeding is much less today, only a little spotting this morning. Denies any pain with IC. This is a new partner and the third time they have had IC. She states he has a very big penis, they were in a new position and the sex was vigorous. She has never had bleeding with IC in the past. She has a hx of fibroids, seeing a specialist at the [facility] 06/01/20 to discuss management options.She had a uterine ablation in 2013, has light monthly spotting. Patient's medications, allergies, past medical, surgical, social and family histories were reviewed and updated as appropriate. Review of Systems Pertinent items are noted in HPI. Review of Systems Negative other than noted above. Objective: Vitals: 05/12/20 1421 BP: 118/70 Pulse: 98 Weight: 183 lb 6.4 oz (83.2 kg) General: Patient alert, in NAD. A&O times 3, nl affect. Well-groomed. External genitalia of normal appearance. Vagina: pink and rugated. Cervix: without lesions, a small amount of brown discharge noted. CMT: negative. Uterus: mobile, small. Adenexae: no masses. Psychiatric: Alert & oriented with normal affect and insight, does not appear depressed or anxious. Assessment: Vaginal bleeding with intercourse Plan: Orders Placed This Encounter ??? Wet Prep ??? Chlamydia and GC STD -Reviewed that bleeding could have been related to a cervical cyst that ruptured or due to the position she was in during IC and the size of her partner's penis. Discuss that deeper penetration during IC can cause cervical irritation and spotting. -Reviewed assessing positions during sex that might be contributing to bleeding moving forward and then avoiding those positions. -FU 06/01 with physician for management of uterine fibroids. -Follow up visit: Annual, PRN ITION DIRECTOR documented in this encounter Plan of Treatment Not on filedocumented as of this encounter Procedures Procedure Name Priority Date/Time Associated Diagnosis Comme nts CHLAMYDIA & GC (14 Routine 05/12/2020 2:52 PM Bleeding after R esults for this YEARS AND OLDER) NUTRITION DIRECTOR intercourse procedure a re in the results section. VAGINAL WET PREP Waiting 05/12/2020 2:52 PM Bleeding after Res ults for this NUTRITION DIRECTOR intercourse procedure are i n the results section. documented in this encounter Results Chlamydia and GC STD (05/12/2020 2:52 PM NUTRITION DIRECTOR) [employer] Method Time Signature [facility]lam[facility] Not Not [facility] Detect[facility] Detected 10:02 AM [facility] STD NUTRITION DIRECTOR N. gonorrhoeae Not Not 05/15/2020 [facility] STD Detected Detected 10:02 AM CENTRAL LAB NUTRITION DIRECTOR Specimen Anatomical Collection Method Collection Time Receive d Time (Source) Location / / Volume Laterality Swab STD ENTIRE ENDOCERVIX Non-blood 05/12/2020 2:52 PM 04/15 3:01 / Unknown Collection / NUTRITION DIRECTOR PM NUTRITION DIRECTOR Unknown Narrative [facility] C[facility]TRAL [facility] - 05/15/2020 10:02 AM NUTRITION DIRECTOR Test performed by Molecular Detection Vida Baez APRN, CNM LAB_1 Performing Organization Address City/State/ZIP Code Phon e Number [facility] [address] [address] Wet Prep (05/12/2020 2:52 PM NUTRITION DIRECTOR) [employer] Method Time Signature Fungal Not Detected Not detected 05/12/2020 [place] Elements 3:06 PM NUTRITION DIRECTOR LABORATORY Clue Cells Not Detected Not Detected 05/12/2020 [place] 3:06 PM NUTRITION DIRECTOR LABORATORY White Blood Not Detected Not Detected 05/12/2020 [place] Cells 3:06 PM NUTRITION DIRECTOR LABORATORY Trich Not Detected Not detected 05/12/2020 [place] [facility] 3:06 PM NUTRITION DIRECTOR LABORATORY Specimen Anatomical Collection Method Collection Time Receive d Time (Source) Location / / Volume Laterality Swab (Source VAGINAL CERVIX / Non-blood 05/12/2020 2:52 PM 05/12 3:01 Required) Unknown Collection / NUTRITION DIRECTOR PM NUTRITION DIRECTOR Unknown Narrative [facility] - 05/12/2020 3:06 PM NUTRITION DIRECTOR Methodology: ??Manual Microscopic Vida Baez APRN, MICHEAL LAB_1 Performing Organization Address City/State/ZIP Code Phon e Number [facility] [address] [place], [place] [phone] documented in this encounter Visit Diagnoses Diagnosis Bleeding after intercourse - Primary Postcoital bleeding Screening for STD (sexually transmitted disease) Screening examination for venereal disea se documented in this encounter Care Teams Gateman Relationship Specialty Start Date End Date Needs Pcp, Assignment PCP - General 08/12/14 [place] [address] documented as of this encounter
--- OUTSIDE RECORDS SUMMARY | 2022-03-23 17:29 | XMS_ITS | Encounter Summary ---
:1980 Author Organization [facility] Address [address] [address] Care Team Providers Name Role Phone Needs Pcp, Assignment Primary Care Provider Reason for Visit Reason Comments Toe Pain Encounter Details Date Type Department Care Team Description 04/28/2020 Hospital Encounter [place] [address] Lisy Perkins [facility] MD Christelle toe of right foot [address] [place] [address] Social History Tobacco Use Types Packs/Day Years Used Date Smoking Tobacco: Never Smokeless Tobacco: Never Alcohol Use Standard Drinks/Week Comments Yes 1 (1 standard drink = 0.6 oz pure alcoho l) Alcoholic Drinks/day: Sex Assigned at Date Recorded Not on file documented as of this encounter Last Filed Vital Signs Vital Sign Reading Time Taken Comments Blood Pressure 138/98 04/28/2020 3:39 PM HIGH SCHOOL LIBRARIAN Pulse 85 04/28/2020 3:39 PM HIGH SCHOOL LIBRARIAN Temperature 36.8 ??C (98.2 ??F) 04/28/2020 3:39 PM HIGH SCHOOL LIBRARIAN Respiratory Rate 16 04/28/2020 3:39 PM HIGH SCHOOL LIBRARIAN Oxygen Saturation 100% 04/28/2020 3:39 PM HIGH SCHOOL LIBRARIAN Inhaled Oxygen Concentration - - Weight - - Height - - Body Mass Index - - documented in this encounter Discharge Instructions Discharge InstructionsLisy Perkins MD - 04/28/2020 4:10 PM CST Images from the original note were not included. Paronychia: Care Instructions Your Care Instructions Paronychia (say vnol-nc-CW-shea-uh) is an infection of the skin around a fingernail or toenail. It happens when germs enter through a break in the skin. The doctor may have made a small cut in the infected area to drain the pus. Most cases of paronychia improve in a few days. But watch your symptoms and follow your doctor's advice. Though rare, a mild case can turn into something more serious and infect your entire finger or toe. Also, it is possible for an infection to return. Follow-up care is a castellanos part of your treatment and safety. Be sure to make and go to all appointments, and call your doctor if you are having problems. It's also a good idea to know your test results and keep a list of the medicines you take. How can you care for yourself at home? ?? If your doctor told you how to care for your infected nail, follow the doctor's instructions. If you did not get instructions, follow this general advice: ? Wash the area with clean water 2 times a day. Don't use hydrogen peroxide or alcohol, which can slow healing. ? You may cover the area with a thin layer of petroleum jelly, such as Vaseline, and a nonstick bandage. ? Apply more petroleum jelly and replace the bandage as needed. ?? If your doctor prescribed antibiotics, take them as directed. Do not stop taking them just because you feel better. You need to take the full course of antibiotics. ?? Take an mefo-qmj-kzmkqwg pain medicine, such as acetaminophen (Tylenol), ibuprofen (Advil, Motrin), or naproxen (Aleve). Read and follow all instructions on the label. ?? Do not take two or more pain medicines at the same time unless the doctor told you to. Many pain medicines have acetaminophen, which is Tylenol. Too much acetaminophen (Tylenol) can be harmful. ?? Prop up the toe or finger so that it is higher than the level of your heart. This will help with pain and swelling. ?? Apply heat. Put a warm water bottle, heating pad set on low, or warm cloth on your finger or toe.Do not go to sleep with a heating pad on your skin. ?? Soak the area in warm water twice a day for 15 minutes each time. After soaking, dry the area well and apply a thin layer of petroleum jelly, such as Vaseline. Put on a new bandage. When should you call for help? Call your doctor now or seek immediate medical care if: ? You have signs of new or worsening infection, such as: ? Increased pain, swelling, warmth, or redness. ? Red streaks leading from the infected skin. ? Pus draining from the area. ? A fever. ??Watch closely for changes in your health, and be sure to contact your doctor if: ? You do not get better as expected. Where can you learn more? 1. Go to https://[employer] Vine/SecretSales or [employer]. 2. Enter C435 in the search box. Current as of: February 10, 2019?Content Version: 12.4 ?? [id number] [employer]. Care instructions adapted under license by your healthcare professional. If you have questions abouta medical condition or this instruction, always ask your healthcare professional. [employer] disclaims any warranty or liability for your use of this information. SCHOOL LIBRARIAN documented in this encounter Medications at Time of Discharge Medication Sig Dispensed Refills Start Date End Date levothyroxine Take 50 mcg by mouth 0 01/03/2020 (SYNTHROID) 50 MCG daily. tablet norgestrel-ethinyl Take 1 Tablet by 84 Tablet 3 03/15/2020 estradiol (LO/OVRAL) mouth daily. Take 0.3-30 MG-MCG continuously tabletIndications: Abnormal uterine bleeding (AUB), History of endometrial ablation, Uterine leiomyoma, unspecified location valACYclovir (VALTREX) Take 500 mg by mouth 0 05/2019 500 MG tablet as needed. cephalexin (KEFLEX) 500 Take 1 Capsule by 28 Capsule 0 04/2805/05/2020 MG capsule mouth 4 times a day for 7 days. fluconazole (DIFLUCAN) Take 1 tablet at 2 Tablet 0 021 05/12/2020 200 MG tablet onset of symptoms and repeat in 3 days if symptoms persist documented as of this encounter ED Notes Lisy Perkins MD - 04/28/2020 3:53 PM CST Lacey Nolasco is a 40 y.o.female presents to the Urgent Care for Toe Pain. She was having hepaticcare about a week ago when she was poked unintentionally causing her to bleed. The tool went in between which she is planning to is the paronychia with tissue and the nail on the great toe. It was verypainful when happen. She was using peroxide in cleaning at home and she has the size the tissue backand has had purulence drainage most recently this morning. The areas getting more red and swollen and painful the last day or so and it is painful to walk. Tetanus is up-to-date due to her requirements but it is not and her records according to the patient. Social History: Social History Socioeconomic History ??? Marital status: Spouse name: rocio ??? Number of children: 1 ??? Years of education: Not on file ??? Highest education level: Not on file Occupational History ??? 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 Smoking status: Never Smoker ??? Smokeless tobacco: Never Used Substance and Sexual Activity ??? Alcohol use: Yes Alcohol/week: 1.0 standard drinks Types: 1 Glasses of wine per week Comment: Alcoholic Drinks/day: ??? Drug use: No ??? Sexual activity: Yes Partners: Male control/protection: None Other Topics Concern ??? Bike Helmet Yes ??? City Water Yes ??? Exercise Not Asked ??? Guns in home Yes ??? Seat Belt Yes ??? Special Diet Not Asked ??? Weight Concern Yes Social History Narrative ??? Not on file Social Determinants of Health Financial Resource Strain: ??? Difficulty of Paying Living Expenses: Not on file Food Insecurity: ??? Worried About Running Out of Food in the Last Year: Not on file ??? Ran Out of Food in the Last Year: Not on file Transportation Needs: ??? Lack of Transportation (Medical): Not on file ??? Lack of Transportation (Non-Medical): Not on file Physical Activity: ??? Days of Exercise per Week: Not on file ??? Minutes of Exercise per Session: Not on file Stress: ??? Feeling of Stress : Not on file Social Connections: ??? Frequency of Communication with Friends and Family: Not on file ??? Frequency of Social Gatherings with Friends and Family: Not on file ??? Attends Sabianism Services: Not on file ??? Active Member of Clubs or Organizations: Not on file ??? Attends Club or Organization Meetings: Not on file ??? Marital Status: Not on file Intimate Partner Violence: ??? Fear of Current or Ex-Partner: Not on file ??? Emotionally Abused: Not on file ??? Physically Abused: Not on file ??? Sexually Abused: Not on file Past Medical History: Past Medical History: Diagnosis Date ??? Cervical radiculopathy at C6 ??? Complication of anesthesia Nausea/Vomiting ??? Endometriosis Adverse Drug Reactions: Zolpidem tartrate ROS: All other systems reviewed and negative Medications: cephalexin, fluconazole, levothyroxine, norgestrel-ethinyl estradiol, and valACYclovir OBJECTIVE: Vital Signs: BP (!) 138/98 (BP Location: Left Arm, BP Cuff Size: Regular) Pulse 85 Temp 36.8 ??C(98.2 ??F) (Oral) Resp 16 SpO2 100% General: Alert and oriented EYES: PERRL, EOMI Cardiovascular: Normal cap refill and right great toe Musculoskeletal: Full range of motion of right great toe Neurologic: Alert and oriented x 3, no focal deficits Skin: Warm, dry, paronychia on the lateral aspect of the right great toe is erythematous and edematous and tender to touch but dry with no active drainage Procedure: I and D right great toe paronychia 11. Blade was used to go along the paronychia and separate the tissue from the nail on the most lateral aspect. This was done twice and no purulent drainage. Only blood was expressed. Patient toleratedprocedure. Bacitracin and Band-Aid applied. LABS: No results found for this or any previous visit (from the past 24 hour(s)). ASSESSMENT: 1. Paronychia of great toe of right foot PLAN: There seems to be no remaining purulence material after the patient drained this morning but she has been doing this every day so at this time will add antibiotics. Now that the spaces opened up with the blade she will continue to massage the area to help any purulent material drain. We talked about ingrown toenails and she has had that once or twice in the past and that is why she got pedicures to prevent that from happening. She says this only started after this procedure or pedicure so she does not want the nail removed at this time with hopes that the antibiotic will settle things down. Certainly if redness swelling significantly worsen she needs recheck immediately or if not getting better advise recheck next week. SCHOOL LIBRARIAN documented in this encounter Plan of Treatment Not on filedocumented as of this encounter Visit Diagnoses Diagnosis Paronychia of great toe of right foot Onychia and paronychia of toe Triage Assessment Note - Sheela Pisano RN - 04/28/2020 3:37 PM HIGH SCHOOL LIBRARIAN Lacey Nolasco is a 40 y.o.female presents to the Urgent Care for Toe Pain . Pain/Trauma location: right big toe Symptoms began: 1 week(s) ago. Symptoms are: gradually worsening. Pain Quality: aching OTC remedies tried: Ibuprofen and Peroxide with no relief of symptoms. Patient had a pedicure 1 week ago and was cut with a tool. Area is now red, swollen, and painful. SCHOOL LIBRARIAN documented in this encounter Care Teams Sleeve Ironer Relationship Specialty Start Date End Date Needs Pcp, Assignment PCP - General 08/12/14 [place] [address] documented as of this encounter
--- OUTSIDE RECORDS SUMMARY | 2022-03-23 17:29 | XMS_ITS | Encounter Summary ---
:1980 Author Organization [facility] Address [address], [place] [address] Care Team Providers Name Role Phone Needs Pcp, Assignment Primary Care Provider Reason for Visit Reason Comments Abnormal Vaginal Bleeding Encounter Details Date Type Department Care Team Description 05/12/2020 Nurse Triage [facility] Abnormal Vaginal Services-REPORTING CONSULTANT MD Aurelia Bleeding [address], [address] [place] [address] [phone] (Wo rk) Social History Tobacco Use Types Packs/Day Years Used Date Smoking Tobacco: Never Smokeless Tobacco: Never Alcohol Use Standard Drinks/Week Comments Yes 1 (1 standard drink = 0.6 oz pure alcoho l) Sex Assigned at Date Recorded Not on file documented as of this encounter Nursing Notes Sheela Tabor, LEELA - 05/12/2020 8:25 AM CST Pt calling in requesting appt for vaginal bleeding that started after sexual intercourse Monday 05/08and has continued. Started out red and like a light period, now mostly just with wiping. Her lmp was04/24/20, periods are usually very light due to hx of endometrial ablation. Onset of bleeding was immediately after intercourse that pt describes as more vigorous than usual. She did not have any painduring the intercourse and no pain since. Denies abd pain, cramping, fever, heavy bleeding, dizziness, SOB. Appt scheduled as follows. Pt verbalizes understanding and agrees with plan. No further questions. Pt agrees to call back with questions, concerns, new/worsening/persistent sx. Future Appointments Date Time Provider Department Center 05/12/2020 2:10 PM Vida Baez APRN, CNM [facility] CNM [facility] Reason for Disposition ??? Bleeding or spotting occurs after sex (Exception: first intercourse) Protocols used: VAGINAL BLEEDING - [id number] ARY CLERK documented in this encounter Plan of Treatment Not on filedocumented as of this encounter Visit Diagnoses Not on filedocumented in this encounter Care Teams Job Coach Relationship Specialty Start Date End Date Needs Pcp, Assignment PCP - General 08/12/14 [place] [address] documented as of this encounter
--- OUTSIDE RECORDS SUMMARY | 2022-03-23 17:29 | XMS_ITS | Encounter Summary ---
:[address] [facility] Address [address] [place] [address] Care Team Providers Name Role Phone Needs Pcp, Assignment Primary Care Provider Reason for Referral Procedure/Equipment (Routine) - Incomplete Specialty Diagnoses / Procedures Referred By Contact Refer red To Contact Diagnoses Encounter for screening mammogram for malignant neoplasm of breast Britney Pacheco MD Procedures MM Mammogram Screening Bilat W Implants W 3D Solitario W CAD [address] [address] [place] [id number] Referral ID Status Reason Start Date Expiration Date Visits V isits Requested Authorized [id number] Incomplete 10/31/2020 01/30/2022 1 1 Reason for Visit Procedure/Equipment (Routine) - Incomplete Specialty Diagnoses / Procedures Referred By Contact Refer red To Contact Diagnoses Encounter for screening mammogram for malignant neoplasm of breast Britney Pacheco MD Procedures MM Mammogram Screening Bilat W Implants W 3D Solitario W CAD [address] [address] [place] [address] Referral ID Status Reason Start Date Expiration Date Visits V isits Requested Authorized [id number] Incomplete 10/31/2020 01/30/2022 1 1 Encounter Details Date Type Department Care Team Description 11/01/2020 Ancillary Procedure [place] [facility] [id number] [facility] [place], [place] of breast [phone] Social History Tobacco Use Types Packs/Day [...] Name Priority Date/Time Associated Diagnosis Comme nts MM MAMMOGRAM Routine 11/01/2020 12:04 PM Encounter for Results for this SCREENING BILAT W CDT screening mammogram pro cedure are in IMPLANTS W 3D SOLITARIO for malignant the resu lts W CAD neoplasm of breast section. documented in this encounter Results MM Mammogram Screening Bilat W Implants W 3D Solitario W CAD (11/01/2020 12:04 PM CDT) Anatomical Region Laterality Modality Breast Bilateral Mammography Specimen (Source) Anatomical Location Collection Method / Collectio n Time Received Time / Laterality Volume Impressions 11/02/2020 12:03 PM CDT : ACR BI-RADS Category 2: Benign RECOMMENDATION: Follow Up Imaging in 12 months The results and recommendations of this examination will be communicated to the patient. Narrative 11/02/2020 12:03 PM CDT MM MAMMOGRAM SCREENING BILAT W IMPLANTS W 3D SOLITARIO W CAD performed on 11/01/20 Compared to: 06/04/2019 Foreign Image(S) Mammogram and 03/19/2018 Foreign Image(S) Mammogram ?? FINDINGS: Bilateral screening mammogram was performed with the assistance of Computer-Aided Detection and breast t omosynthesis. The breasts have scattered areas of fibroglandular densit y. There are breast augmentation changes. There is no radiographic evidence of mal ignancy. ?? Britney Pacheco MD RAD CHEL documented in this encounter Visit Diagnoses Diagnosis Encounter for screening mammogram for ma lignant neoplasm of breast Other screening mammogram documented in this encounter Care Teams Take Out Waiter/Waitress Relationship Specialty Start Date End Date Needs Pcp, Assignment PCP - General 08/12/14 [place] [address] documented as of this encounter
--- OUTSIDE RECORDS SUMMARY | 2022-03-23 17:29 | XMS_ITS | Encounter Summary ---
:1980 Author Organization [facility] Address [address] [place] [address] Care Team Providers Name Role Phone Needs Pcp, Assignment Primary Care Provider Encounter Details Date Type Department Care Team Description 02/29/2020 Lab Visit [facility] without abnormal finding[facility] for diabetes thomas contreras; [address] [facility], Screen ing for thyroid disorder; [address] [place] [address] Social History Tobacco Use Types Packs/Day Years Used Date Smoking Tobacco: Never Smokeless Tobacco: Never Alcohol Use Standard Drinks/Week Comments Yes 1 (1 standard drink = 0.6 oz pure alcoho l) Alcoholic Drinks/day: Sex Assigned at Date Recorded Not on file documented as of this encounter Progress Notes Lillian Holbrook APRN, CNM - 02/29/2020 4:10 PM CST Labs reviewed, sent MYC note. [facility] documented in this encounter Plan of Treatment Not on filedocumented as of this encounter Procedures Procedure Name Priority Date/Time Associated Diagnosis Comme nts CHOLESTEROL, TOTAL Routine 02/29/2020 4:12 PM Lipid screening Results for this AND HDL [facility] procedure are i n the results section. TSH, SENSITIVE Routine 02/29/2020 4:12 PM Encounter for Result s for this (WITH REFLEX) [facility] gynecological procedure are in examination without the resu lts abnormal finding section. Screening for thyroid disorder HGB A1C Routine 02/29/2020 4:12 PM Encounter for Results for this [facility] gynecological procedure are in examination without the resu lts abnormal finding section. Screening for diabetes mellitus documented in this encounter Results (ABNORMAL) Cholesterol, Total & HDL [CHS] (02/29/2020 4:12 PM [facility]) [facility] Method Time Signature Cholesterol 206 (H) 0 - 199 03/01/2020 [facility] mg/dL 12:53 PM [facility] HDL Cholesterol 64 >=40 mg/dL 03/01/2020 [facility] 12:53 PM [facility] Non HDL Chol, 142 mg/dL 03/01/2020 [facility] Calculated 12:53 PM [facility] Specimen Anatomical Collection Method / Collection Time Recei regan Time (Source) Location / Volume Laterality Blood Venipuncture / 02/29/2020 4:12 02/29/2020 4:12 Unknown PM [facility] PM [facility] Lillian Holbrook APRN, CNM LAB_1 Performing Organization Address City/[facility]/ZIP Code Phon e Number [facility] [address] [place] [phone] TSH with Free T4 (if TSH Abnormal) (02/29/2020 4:12 PM [facility]) athologist Signature TSH, Reflex 1.13 0.30 - 4.50 03/01/2020 [facility] uIU/mL 1:45 PM [facility] Specimen Anatomical Collection Method / Collection Time Recei regan Time (Source) Location / Volume Laterality Blood Venipuncture / 02/29/2020 4:12 02/29/2020 4:12 Unknown PM [facility] PM [facility] Narrative [facility] - 03/01/2020 1:45 P M [facility] Lab will automatically reflex to Free T4 when TSH results are <0.30 uIU/mL or >4.50 mIU/mL. Lillian Holbrook APRN, CNM LAB_1 Performing Organization Address City/State/ZIP Code Phon e Number [facility] [address] [place] [address] HGB A1C (02/29/2020 4:12 PM [facility]) [facility] Method Time Signature Hemoglobin A1C 5.2 <=5.6 % 03/01/2020 [facility] Specimen Anatomical Collection Method / Collection Time Recei regan Time (Source) Location / Volume Laterality Blood Venipuncture / 02/29/2020 4:12 02/29/2020 4:12 Unknown PM [facility] PM [facility] Lillian Holbrook APRN, CNM LAB_1 Performing Organization Address City/State/ZIP Code Phon e Number [facility] [address] [id number] documented in this encounter Visit Diagnoses Diagnosis Encounter for gynecological examination without abnormal finding Routine gynecological examination Screening for diabetes mellitus Screening for thyroid disorder Lipid screening Screening for lipoid disorders documented in this encounter Care Teams Wood Science Professor Relationship Specialty Start Date End Date Needs Pcp, Assignment PCP - General 08/12/14 [place] [address] documented as of this encounter
--- OUTSIDE RECORDS SUMMARY | 2022-03-23 17:29 | XMS_ITS | Encounter Summary ---
:1980 Author Organization [facility] Address [address], [place] [address] Care Team Providers Name Role Phone Needs Pcp, Assignment Primary Care Provider Reason for Referral (Routine) - New Request Specialty Diagnoses / Procedures Referred By Contact Refer red To Contact Diagnoses Lateral epicondylitis of right elbow Elizabeth Owsald PA-C Procedures Triamcinolone Acet Inj Nos: (per 10 mg) [id number] [place] [address] Referral ID Status Reason Start Date Expiration Date Visits V isits Requested Authorized [id number] New Request 01/22/2022 04/23/2023 1 1 herapies (Routine) - New Request Specialty Diagnoses / Procedures Referred By Contact Refer red To Contact Diagnoses Lateral epicondylitis of right elbow Elizabeth Oswald PA-C [address] [place] [address] Referral ID Status Reason Start Date Expiration Date Visits V isits Requested Authorized [id number] New Request 01/22/2022 01/22/2023 1 1 Scheduling Instructions Your provider has recommended an appoint ment with [facility]. You can quickly make your appointment online at [employer]/schedule. You can also call [phone] for help scheduling yo ur appointment. We suggest you call your health insurance company about your cove rage and benefits for this appointment. Procedure/Equipment (Routine) - Incomplete Specialty Diagnoses / Procedures Referred By Contact Refer red To Contact Diagnoses Right elbow pain Elizabeth Oswald PA-C Procedures XR Elbow Rt 3+ Views [address] [place] [address] Referral ID Status Reason Start Date Expiration Date Visits V isits Requested Authorized [id number] Incomplete 01/22/2022 04/23/2023 1 1 Reason for Visit Reason Comments CONSULT Right elbow pain Encounter Details Date Type Department Care Team Description 01/22/2022 Office Visit Elizabeth Rashid, Lateral epicondylitis of right elbow (Primary Dx); [facility] Right elbow pain Medicine [address] [address] [place] [phone] Social History Tobacco Use Types Packs/Day Years Used Date Smoking Tobacco: Never Smokeless Tobacco: Never Alcohol Use Standard Drinks/Week Comments Yes 1 (1 standard drink = 0.6 oz pure alcoho l) Sex Assigned at Date Recorded Not on file documented as of this encounter Last Filed Vital Signs Vital Sign Reading Time Taken Comments Blood Pressure - - Pulse - - Temperature - - Respiratory Rate - - Oxygen Saturation - - Inhaled Oxygen Concentration - - Weight 83 kg (183 lb) 01/22/2022 11:33 AM CDT Height 167.6 cm (5' 6) 01/22/2022 11:33 AM CDT Body Mass Index 29.54 01/22/2022 11:33 AM CDT documented in this encounter Patient Instructions Patient InstructionsBrittni Foley - 01/22/2022 11:30 AM CDT Thank you for choosing [facility] for your health care visit today. Elizabeth Oswald PA-C Physician Chip Mixing Machine Operator [facility] Injection(s): The right elbow was injected with Kenalog-40 and lidocaine. You've just had a steroid (cortisone) injection: Steroid injections are among the most frequently used treatments in orthopedics. Steroid injections are used for a wide range of conditions from arthritis, to bursitis, to tennis elbow, etc. The two most common side-effects of steroid shots called ???steroid flare??? and ???steroid flush. Steroid flare can cause an increase in symptoms in the first 24-48 hours after a steroid injection. This will usually subside within a few days, and is a cause from the additional fluid in your joint, and the trauma to the joint lining from the injection. This pain usually subsides quickly and can be aided with an ice pack and over the counter anti-inflammatory medication. Steroid flush is a flushing sensation and redness of their face. This reaction is more common in women, but can occur in men as well, and is seen into up to 15 percent of patients. This can begin within a few hours of the injection and may last for a few days. It is not dangerous, and will resolve itself. Diabetic patients also can have their blood sugar levels affected. Patients with diabetes should carefully monitor their blood sugar as steroid can cause a temporary rise in their levels. Patients taking insulin should be especially careful, checking their blood sugar often and adjusting the insulin doses, if necessary. Steroid injections can only be repeated every 3 or 4 months. For some conditions there may also be alimited total number of times it is safe to repeat an injection. RISKS: Infection Whenever there is a break in the skin, like when a needle is used to administer steroid, there is a chance of infection this is very unlikely to happen, usually would occur days after the injection. Signs and symptoms to watch for: fever, streaking redness, pus, drainage, foul odor, localized redness that continues to get worse, come to the office if symptoms are recognized during business hours, or proceed to the emergency room if symptoms are recognized after office hours. Skin Pigment Changes Patients should also be aware that steroid may cause skin around the injection site to lighten. Thisis not harmful or long lasting. Loss of Fatty Tissue This is one reason we limit the number of steroid injections administered. High doses of steroid canhave detrimental effects on some tissues in the body, though due to the dosage we use the risk is extremely rare. When injected into fatty tissue, steroid can lead to a problem called fat atrophy. Fat atrophy causes loss of fatty tissue, which can lead to dimpling of the skin or the thinning out of fat. Skin will feel thin. Patients who get steroid injections in the heel to treat plantar fasciitis may find walking painful as fat that usually cushions their steps may thin out. Tendon Rupture Steroid can also cause weakening of tendons. This is one reason to limit the number of steroid injections administered. Advanced Imaging Scheduling: To schedule advanced imaging including MRI's, CT Scans, Ultrasounds and Fluoroscopic guided injections at a [facility] location please call [phone]. Medication Requests: Prescriptions are not filled on weekends or on weekdays after 3:00 PM. For all medication refills: Request a refill using [employer] or contact your pharmacy. [employer] [address] [place] [address] (Phone) Email: [email or web address] What is Know Your Cost? Know Your Cost is a service for patients and patient/members to call and receive personalized cost information and estimates across our care group. The phone number is (COST) Friday - Friday 8 AM to 5 PM Release of Information: Radiology/Imaging Health Information Management [address] [address] [place], [place] [id number] (Phone) [phone] (Phone) [employer] documented in this encounter Progress Notes Elizabeth Oswald PA-C - 01/22/2022 11:30 AM CDT SUBJECTIVE: Chief Complaint Patient presents with CONSULT Right elbow pain HPI:Lacey is a 41 y.o. right hand dominant female here for evaluation of right lateral sided elbowpain ongoing for 6 months. No trauma associated with onset of pain. Pain localized to lateral aspectof the elbow over the epicondyle and most symptomatic when gripping or doing repetitive extension ofthe wrist. No swelling, no loss of motion. Denies numbness or tingling. 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 A complete review of systems was reviewed per the intake sheet and negative Current Outpatient Medications Medication Sig Dispense Refill levothyroxine (SYNTHROID) 50 MCG tablet Take 50 mcg by mouth daily. norgestrel-ethinyl estradiol (LO/OVRAL) 0.3-30 MG-MCG tablet Take 1 Tablet by mouth daily. Take continuously (Patient not taking: Reported on 04/04/2020) 84 Tablet 3 spironolactone (ALDACTONE) 25 MG tablet PLEASE SEE ATTACHED FOR DETAILED DIRECTIONS valACYclovir (VALTREX) 500 MG tablet Take 500 mg by mouth as needed. No current facility-administered medications for this visit. Allergies Allergen Reactions Zolpidem Tartrate Paradoxical reaction OBJECTIVE: Exam finds a pleasant, healthy appearing female. Neurovascularly intact. Exam of the elbow: No edema, no ecchymosis. Full AROM. Tender to palpation of lateral epicondyle. Pain on resisted wrist extension and long finger extension. Soreness through extensor muscle mass. Tinels over radial tunnel -. Xrays taken and independently reviewed. No obvious abnormalities noted. ASSESMENT: Lateral epicondylosis PLAN: Reviewed the treatment options and pathophysiology of tennis elbow. Recommended hand therapy and a brace for nighttime use. Recommended an injection; skin was cleansed with alcohol and 1.5cc of 1% lidocaine and 20mg of kenalog was injected into the point of maximal tenderness with trephination of the tendon performed. Bandage was applied. Patient verbalized understanding and agreement to our treatment plan. All of her questions were answered to her satisfaction. documented in this encounter Plan of Treatment Scheduled Referrals Name Type Priority Associated Diagnoses Order S chedule Hand Therapy Consult Referral Routine Lateral epicondyliti s of Ordered: 01/22/2022 right elbow documented as of this encounter Results XR Elbow Rt 3+ Views (01/22/2022 11:46 AM CDT) Anatomical Region Laterality Modality Upper Extremity, Elbow Digital Radiograp hy Specimen (Source) Anatomical Collection Method Collection Time Re ceived Time Location / / Volume Laterality 01/22/2022 11:39 AM CDT Impressions 01/22/2022 12:59 PM CDT COMPARISON: ??None. FINDINGS: ??Right elbow 3 views. No acut e bony abnormality. Joint spaces are intact. No significant elbow effusion. Procedure Note Herbert Encinas MD - 01/22/2022 IMPRESSION COMPARISON: None. FINDINGS: Right elbow 3 views. No acute bony abnormality. Joint spaces are intact. No significant elbow effusion. Elizabeth MCDOWELL documented in this encounter Visit Diagnoses Diagnosis Lateral epicondylitis of right elbow - P rimary Lateral epicondylitis of elbow Right elbow pain Pain in joint, upper arm Right elbow pain Pain in joint, upper arm documented in this encounter Care Teams Resistor Tester Relationship Specialty Start Date End Date Needs Pcp, Assignment PCP - General 08/12/14 [place] [address] documented as of this encounter
--- OUTSIDE RECORDS SUMMARY | 2022-03-23 17:29 | XMS_ITS | Encounter Summary ---
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 Aurelia History of endometrial ablation; [address] [facility] [place], [address] Sally presley leiomyoma, unspecified location [address] [place] [address] [phone] (Wo rk) Social History Tobacco Use Types Packs/Day Years Used Date Smoking Tobacco: Never Smokeless Tobacco: Never Alcohol Use Standard Drinks/Week Comments Yes 1 (1 standard drink = 0.6 oz pure alcoho l) Alcoholic Drinks/day: Sex Assigned at Date Recorded Not on file documented as of this encounter Patient Instructions Patient InstructionsBritney Pacheco MD - 03/15/2020 1:00 PM CST Images from the original note were not included. Uterine Fibroids: Care Instructions Your Care Instructions Uterine fibroids are growths in the uterus. Fibroids aren't cancer. Doctors don't know what causes fibroids. Fibroids are very common in women during their childbearing years. Fibroids can grow on the inside of the uterus, in the muscle wall of the uterus, or near the outsidewall of the uterus. In some women, fibroids cause painful cramps and heavy periods. In these cases, taking anti-inflammatory medicines, control pills, or using an intrauterine device (IUD) often helps decrease symptoms. Sometimes surgery is needed to treat fibroids. But if you are near menopause, you may want to wait and see if your symptoms get better. Most fibroids shrink and go away after menopause, when your menstrual periods stop completely. Follow-up care is a castellanos part of your treatment and safety. Be sure to make and go to all appointments, and call your doctor if you are having problems. It's also a good idea to know your test results and keep a list of the medicines you take. How can you care for yourself at home? ?? If your doctor gave you medicine, take it as exactly as prescribed. Be safe with medicines. Call your doctor if you think you are having a problem with your medicine. ?? Take anti-inflammatory medicines for pain. These include ibuprofen (Advil, Motrin) and naproxen (Aleve). Read and follow all instructions on the label. ?? Use heat, such as a hot water bottle or a heating pad set on low, or a warm bath to relax tense muscles and relieve cramping. Put a thin cloth between the heating pad and your skin. Never go to sleep with a heating pad on. ?? Lie down and put a pillow under your knees. Or, lie on your side and bring your knees up to your chest. These positions may help relieve belly pain or pressure. ?? Keep track of how many sanitary pads or tampons you use each day. ?? Get at least 30 minutes of exercise on most days of the week. Walking is a good choice. You also may want to do other activities, such as running, swimming, cycling, or playing tennis or team sports. ?? If you bleed longer than usual or have heavy bleeding, take a daily multivitamin with iron. When should you call for help? Call your doctor now or seek immediate medical care if: ? You have severe vaginal bleeding. ? You have new or worse belly or pelvic pain. ??Watch closely for changes in your health, and be sure to contact your doctor if: ? You have unusual vaginal bleeding. ? You do not get better as expected. Where can you learn more? 1. Go to https://[employer].XtremeMortgageWorx/healthLoop88rary or [employer] Pharmaceuticalsrary. 2. Enter B121 in the search box. Current as of: February 18, 2019?Content Version: 12.4 ?? [employer]. Care instructions adapted under license by your healthcare professional. If you have questions abouta medical condition or this instruction, always ask your healthcare professional. [employer] disclaims any warranty or liability for your use of this information. Combination Control Pills: Care Instructions Your Care Instructions Combination control pills are used to prevent . They give you a regular dose of the hormones estrogen and progestin. You take a hormone pill every day to prevent . control pills come in packs. The most common type has 3 weeks of hormone pills. Some packs have sugar pills (they do not contain any hormones) for the fourth week. During that fourth no-hormone week, you have your period. After the fourth week (28 days), you start a new pack. Some control pills are packaged in different ways. For example, some have hormone pills for the fourth week instead of sugar pills. Taking hormones for the entire month causes you to not have periods or to have fewer periods. Others are packaged so that you have a period every 3 months. Your doctor will tell you what type of pills you have. Follow-up care is a castellanos part of your treatment and safety. Be sure to make and go to all appointments, and call your doctor if you are having problems. It's also a good idea to know your test results and keep a list of the medicines you take. How can you care for yourself at home? How do you take the pill? ?? Follow your doctor's instructions about when to start taking your pills. Use backup control, such as a condom, or don't have intercourse for 7 days after you start your pills. ?? Take your pills every day, at about the same time of day. To help yourself do this, try to take them when you do something else every day, such as brushing your teeth. What if you forget to take a pill? Always read the label for specific instructions, or call your doctor. Here are some basic guidelines: ?? If you miss 1 hormone pill, take it as soon as you remember. Ask your doctor if you may need to use a backup control method, such as a condom, or not have intercourse. ?? If you miss 2 or more hormone pills, take one as soon as you remember you forgot them. Then read the pill label or call your doctor about instructions on how to take your missed pills. Use a backup method of control or don't have intercourse for 7 days. is more likely if you miss more than 1 pill. ?? If you had intercourse, you can use emergency contraception to help prevent . The most effective emergency contraception is the copper IUD (inserted by a doctor). You can also get emergencycontraceptive pills without a prescription at most [facility]. What else do you need to know? ?? The pill can have side effects. ? You may have very light or skipped periods. ? You may have bleeding between periods (spotting). This usually decreases after 3 to 4 months. ? You may have mood changes, less interest in sex, or weight gain. ?? The pill may reduce acne, heavy bleeding and cramping, and symptoms of premenstrual syndrome. ?? Check with your doctor before you use any other medicines, including dnoq-sii-olwcrjk medicines, vitamins, herbal products, and supplements. control hormones may not work as well to prevent when combined with other medicines. ?? The pill doesn't protect against sexually transmitted infection (STIs), such as herpes or HIV/AIDS. If you're not sure whether your sex partner might have an STI, use a condom to protect against disease. When should you call for help? Call your doctor now or seek immediate medical care if: ? You have severe belly pain. ? You have signs of a blood clot, such as: ? Pain in your calf, back of the knee, thigh, or groin. ? Redness and swelling in your leg or groin. ? You have blurred vision or other problems seeing. ? You have a severe headache. ? You have severe trouble breathing. ??Watch closely for changes in your health, and be sure to contact your doctor if: ? You think you might be . ? You think you may be depressed. ? You think you may have been exposed to or have a sexually transmitted infection. Where can you learn more? 1. Go to https://AlwaySupport/Alaris Royaltyrary or [employer]AD[employer]raModus Indoor [employer]ate Park. 2. Enter Z218 in the search box. Current as of: September 09, 2018?Content Version: 12.4 ?? [employer]. Care instructions adapted under license by your healthcare professional. If you have questions abouta medical condition or this instruction, always ask your healthcare professional. [employer] disclaims any warranty or liability for your use of this information. 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 who is called today to discuss AUB. The patient's past medical history is notable for endometrial ablation in 2013 and endometriosis. The patient was recently seen in clinic on 02/29/2020 for her annual exam. During that time, the patient was noting that she would have irregular bleeding/spotting when her menses is due, this is been notable for the past 4-5 months. In addition, she has been having increased frequency and intensity of abdominal pain/cramping. Subsequently, pelvic ultrasound was ordered with the below findings. The patient states she had her endometrial ablation after his second child and her menses have been ???great ever sent for.?? The patient reports she has had a monthly menses, but using a panty liner at most since the endometrial ablation. Most concerning to her for the past 4-5 months, she has been bleeding in between her menses. The patient reports she has also developed abdominal pain, cramping as well as bloating. She also reports 1-2 episodes of rectal pressure a month, without subsequent bowel movement. The patient reports her biggest concern is that this represents cancer. Is or cancer inside of her uterus or other new fibroids cancer? 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 Cervical radiculopathy at C6 ??? Complication of anesthesia Nausea/Vomiting ??? Endometriosis PSHx: Past Surgical History: Procedure Laterality Date ??? CERVICAL DISC SURGERY 2011 ??? COSMETIC SURGERY breast lift and augmentation ??? ENDOMET ABLAT THERM W/O SCOPE GUID 04/27/13 Path benign ??? TONSIL AND ADENOIDECTOMY LW Problem: Tonsillectomy & Adenoidectomy S/p LW Onset: 1983 ??? WISDOM TEETH EXTRACTION Meds:Updated and reviewed in chart Social: Updated and reviewed in chart Review of Systems Remainder of a 8 point Review of Systems is negative Exam: Constitutional: Well appearing, non-toxic female Psych: A&O x3 HEENT: Eyes are normal with clear sclerae. Ears are symmetric. Respiratory: Non-labored breathing Labs: Component Latest Ref Rng & Units 02/29/2020 Cholesterol 0 - 199 mg/dL 206 (H) HDL >=40 mg/dL 64 Non HDL Chol, Calc mg/dL 142 HGB A1C <=5.6 % 5.2 TSH, Sensitive 0.30 - 4.50 uIU/mL 1.13 Imaging: IMPRESSION COMPARISON: None. ?? TECHNIQUE: Transabdominal and transvaginal imaging was performed. ?? FINDINGS: Uterus: Measures 8.3 x 6.1 x 6.9 cm. Multiple fibroids are present at least 2 anteriorly and the largest lies posteriorly abutting the endometrium but appears intramural in position measuring 3.2 x 3.0x 3.0 cm. ?? Endometrium: Measures up to 0.3 cm in thickness. Appears unremarkable. ?? Right Ovary: Measures 2.5 x 1.7 x 2.1 cm and appears unremarkable ?? Right Ovary Blood Flow: Present. ?? Left Ovary: Measures 2.8 x 2.0 x 1.7 cm and appears unremarkable ?? Left Ovary Blood Flow: Present. ?? Free Fluid: no significant free fluid. ?? IMPRESSION: 1. Uterine fibroids. 2. Endometrium shows no specific abnormalities in the remainder the study is normal. Assessment: Lacey Nolasco is a 39 y.o. female with AUB-L. - reviewed the patient's laboratory studies as well as the ultrasound in notable detail. I did discuss with the patient that given the number and size of her fibroids, I am not concerned that this represents leiomyosarcoma or cancer of the fibroids. We discussed physiology of uterine fibroids, and howthey are hormonal dependent. Written information was also provided regarding fibroids. - I did discuss/review the procedure of endometrial ablation and what this does for the endometrial cavity and her bleeding. I did review that abnormal uterine bleeding/spotting can occur with endometrial ablation, the rate of this increases the father out from the procedure one gets. I did review with the patient that her irregular bleeding is likely secondary to her ablation, but also because of her uterine fibroids, 2 of which appear to be submucosal and encroaching on the endometrial cavity. We did have a long discussion about options regarding her abnormal uterine bleeding and her fibroids. I did discuss from a conservative standpoint, I would recommend medical management. We did discuss the options of both combined and progesterone only hormones. The alternative option would be definitive surgical management by way of hysterectomy. Regarding hormones, the patient was previously offered control pills, and this would be the option she would like to proceed with. We talked about takingthis in a continuous fashion without the placebo week. At the end of our conversation, the patient was amenable to a 3 month trial, this was prescribed. - today, we also did discuss hysterectomy as being the definitive surgical management. We did talk about hysterectomy including removal of uterus, cervix as well as fallopian tubes. We did talk about given her history of endometriosis the risks and benefits of potentially leaving her ovaries in-situ versus removing them and giving her hormone replacement therapy. We did not discuss this in great detail, given the patient is going to proceed with medical management. If the need arises, we would readdress this. Plan for follow-up in 3 months, this would need to be a 30 minutes visit. Britney Pacheco MD P: [phone] 03/15/2020 1:05 PM Dictation Disclaimer: Some notes are completed with voice-recognition dictation software. Typographical errors may result . Please contact me via [facility] staff message if you note any errors requiring clarification. Clinician located at clinic. Patient located at home Billing based on: Complexity. and Time. 24 minutes spent on the phone with the patient, with greater than 50% in counseling and coordination of care.. Britney Pacheco MD POWDER WORKER documented in this encounter Nursing Notes Sharon Olivares LPN - 03/15/2020 1:00 PM CST Roomed patient at 1150 for her [address] aPcheco. Reviewed last name/birthdate, medications, allergies, pharmacy, alcohol & tobacco use, visit questions, safety, barriers, and thatpatient has [employer] downloaded. 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
--- OUTSIDE RECORDS SUMMARY | 2022-03-23 17:29 | XMS_ITS | Encounter Summary ---
:1980 Author Organization [facility] Address [address], [place] [address] Care Team Providers Name Role Phone Needs Pcp, Assignment Primary Care Provider Reason for Visit Procedure/Equipment (Routine) - Incomplete Specialty Diagnoses / Procedures Referred By Contact Refer red To Contact Diagnoses Right elbow pain Elizabeth Oswald, PA-C Procedures XR Elbow Rt 3+ Views [id number] [place] [address] Referral ID Status Reason Start Date Expiration Date Visits V isits Requested Authorized [id number] Incomplete 01/22/2022 04/23/2023 1 1 Encounter Details Date Type Department Care Team Description 01/22/2022 Ancillary Procedure Elizabeth Carr, Rig ht elbow pain [place] [address] PA-C Radiology [address] [address] [place] [phone] Social History Tobacco Use Types Packs/Day Years [...] Priority Date/Time Associated Diagnosis Comme nts XR ELBOW RT 3+ Routine 01/22/2022 11:46 AM Right elbow pain Re sults for this VIEWS CDT procedure are i n the results section. documented in this encounter Results XR Elbow Rt 3+ [...] are intact. No significant elbow effusion. 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
--- OUTSIDE RECORDS SUMMARY | 2022-03-23 17:29 | XMS_ITS | Encounter Summary ---
:1980 Author Organization [facility] Address [address], [place] [address] Care Team Providers Name Role Phone Needs Pcp, Assignment Primary Care Provider Reason for Visit Procedure/Equipment (Routine) - Incomplete Specialty Diagnoses / Procedures Referred By Contact Refer red To Contact Diagnoses Foot injury, left, initial encounter Osmani Morfin PA-C Procedures XR Foot Lt 3+ Views [address] [place] [address] Referral ID Status Reason Start Date Expiration Date Visits V isits Requested Authorized [id number] Incomplete 04/04/2020 07/04/2021 1 1 Encounter Details Date Type Department Care Team Description 04/04/2020 Ancillary Procedure [facility] [address] [place] [address] Social History Tobacco Use Types Packs/Day Years [...] Priority Date/Time Associated Diagnosis Comme nts XR FOOT LT 3+ VIEWS Routine 04/04/2020 4:54 PM Foot injury, le ft, Results for this TOP POLISHER initial encounter procedure are in the results section. documented in this encounter Results XR Foot Lt 3+ Views (04/04/2020 4:54 PM TOP POLISHER) Anatomical Region Laterality Modality Lower Extremity, Foot Digital Radiograph y Specimen (Source) Anatomical Collection Method Collection Time Re ceived Time Location / / Volume Laterality 04/04/2020 4:44 PM TOP POLISHER Impressions 04/04/2020 4:58 PM TOP POLISHER COMPARISON: ??None. FINDINGS: ??Bony structures of the left foot are normal. ??Joint spaces appear within normal limits. ??There is no dislocation or significant degenerative change. Procedure Note Minh Taylor MD - 04/04/2020Format ting of this note might be different from the original. IMPRESSION COMPARISON: None. FINDINGS: Bony structures of the left fo ot are normal. Joint spaces appear within normal limits. There is no dislocation or significant degenerative change. Osmani JOHN GD documented in this encounter Visit Diagnoses Not on filedocumented in this encounter Care Teams Trial Management Associate Relationship Specialty Start Date End Date Needs Pcp, Assignment PCP - General 08/12/14 [place] [address] documented as of this encounter
--- OUTSIDE RECORDS SUMMARY | 2022-03-23 17:29 | XMS_ITS | Clinical Summary ---
:1980 [facility] Address [address] [place] [address] Care Team Providers Name Role Phone Needs Pcp, Assignment Primary Care Provider Source Comments You are receiving this document as you are listed as the primary care provider,follow-up provider, or the patient has been referred to you for consultation.This is in compliance with the Medicare and Medicaid EHR Incentive Program,which states Providers who transition their patient to another setting of careor provider of care or refers their patient to another provider of care shouldprovide summarycare record for each transition of care or referral. [employer] Allergies Active Allergy Reactions Severity Noted Date Comments Zolpidem Tartrate Low 04/03/2011 [place] l reaction Medications Medication Sig Dispensed Refills Start Date End Date Status levothyroxine Take 50 mcg by 0 01/03/2020 Active (SYNTHROID) 50 MCG mouth daily. tablet valACYclovir Take 500 mg by 0 02/14/2020 A ctive (VALTREX) 500 MG mouth as needed. tablet norgestrel-ethinyl Take 1 Tablet by 84 Tablet 3 03/15/2020 Active estradiol (LO/OVRAL) mouth daily. Take 0.3-30 MG-MCG continuously tabletIndications: Abnormal uterine bleeding (AUB), History of endometrial ablation, Uterine leiomyoma, unspecified location Additional Information Patient not taking. Reported on 04/04/2020 spironolactone (ALDACTONE) 25 MG PLEASE SEE ATTACHED FOR 0 11/29/2021 Active tablet DETAILED DIRECTIONS Active Problems Problem Noted Date H/O breast biopsy 02/29/2020 Hypothyroid 02/29/2020 History of endometrial ablation 02/29/2020 Overview: 2014 Hx of breast surgery 02/29/2020 DJD (degenerative joint disease) of cervical spine Resolved Problems Problem Noted Date Resolved Date Generalized headaches 11/04/2011 06/09/2015 Encounter for supervision of normal in 09/23/2011 06/09/2015 multigravida Overview: Supervision of normal subsequent pregnan cy Dysmenorrhea 10/09/2010 06/09/2015 Overview: LW Onset: 04/2010 Herpes simplex virus (HSV) infection 05/24/2009 Overview: LW Onset: 1987 ; Herpes Simplex NOS Contraceptive management 05/24/2009 10/09/2010 Overview: LW Onset: 05/2009 ; Contraceptive Management NOS Encounters Date Type Specialty Care Team Description 01/22/2022 Office Visit Hand Therapy Priscilla, Lateral epicon dylitis of Jesse Gomez, OTR/L right elbow (P rimary Dx) 01/22/2022 Ancillary Procedure Radiology PN Elizabeth Oswald, Righ t elbow pain PA-C 01/22/2022 Office Visit Orthopedics Elizabeth Oswald, Lateral epi condylitis of right elbow (Primary Dx); PA-C Right elbow pam n from Last 3 Months Immunizations Name Administration Dates Next Due Flu Vac Preserv Free (3+yrs) 01/26/2011 Influenza IIV4 (Quadrivalent) 0.5mL (47724) 01/15/2013 Td 04/12/2004 Family History Medical History Relation Name Comments Coronary Artery Disease Father Heart Disease Father High Cholesterol Mother Migraines Mother High Cholesterol Maternal Grandmother Cancer, Breast Negative Family History Cancer, Ovary Negative Family History Relation Name Status Comments Father Alive Mother Alive Maternal Grandfather Maternal Grandmother Paternal Grandfather Paternal Grandmother Sister Alive Social History Tobacco Use Types Packs/Day Years Used Date Smoking Tobacco: Never Smokeless Tobacco: Never Alcohol Use Standard Drinks/Week Comments Yes 1 (1 standard drink = 0.6 oz pure alcoho l) Sex Assigned at Date Recorded Not on file Last Filed Vital Signs Vital Sign Reading Time Taken Comments Blood Pressure 118/70 05/12/2020 2:21 PM MOTOR VEHICLE LIGHT ASSEMBLER Pulse 98 05/12/2020 2:21 PM MOTOR VEHICLE LIGHT ASSEMBLER Temperature 36.8 ??C (98.2 ??F) 04/28/2020 3:39 PM MOTOR VEH[employer]LE LIGHT ASSEMBLER Respiratory Rate 16 04/28/2020 3:39 PM MOTOR VEHICLE LIGHT ASSEMBLER Oxygen Saturation 100% 04/28/2020 3:39 PM MOTOR VEH[employer]LE LIGHT ASSEMBLER Inhaled Oxygen Concentration - - Weight 83 kg (183 lb) 01/22/2022 11:33 AM CDT Height 167.6 cm (5' 6) 01/22/2022 11:33 AM CDT Body Mass Index 29.54 01/22/2022 11:33 AM CDT Plan of Treatment Health Maintenance Due Date Last Done Comments HepB (1) 1980 COVID-19 Vaccine (#1) 1980 DTaP/Tdap/Td (1 - Tdap) 04/13/2004 04/12/2004 Influenza (#1) 2021 01/22/2021, 12/27/2019, 01/01/2019, Additional history exists Adult Preventive Visit 02/28/2022 02/29/2020 Pap 02/28/2025 02/29/2020, 06/09/2015, 09/23/2011, Additional history exists Zoster/Shingles (1 of 2) 2028 Hep C Screening (Preventive Completed 05/24/2009, 07/11/19 05 Services) HIV Screening (Preventive Completed 09/23/2011, 05/24/2009 , Services) 10/16/2004, Additional history exists HPV Vaccine Aged Out No longer eligib le based on patient 's age to complete this topic HepA Aged Out No longer eligib le based on patient 's age to complete this topic Hib Aged Out No longer eligib le based on patient 's age to complete this topic IPV (Polio) Aged Out No longer eligib le based on patient 's age to complete this topic MCV4 Aged Out No longer eligib le based on patient 's age to complete this topic Pneumococcal Aged Out No longer eligib le based on patient 's age to complete this topic Procedures Procedure Name Priority Date/Time Associated Diagnosis Comme nts XR ELBOW RT 3+ Routine 01/22/2022 11:46 AM Right elbow pain Re sults for this VIEWS CDT procedure are i n the results section. from Last 3 Months Results XR Elbow Rt 3+ Views (01/22/2022 [...] are intact. No significant elbow effusion. Elizabeth JOHN GD from Last 3 Months Insurance Payer Benefit Plan / Subscriber ID Effective Dates Phone Addre ss Type [facility] General [employer] [facility] [id number] 2021-Present Commercial Care Teams Sales Representative Trainee Relationship Specialty Start Date End Date Needs Pcp, Assignment PCP - General 08/12/14 [place] [address]
--- OUTSIDE RECORDS SUMMARY | 2022-03-23 17:29 | XMS_ITS | Encounter Summary ---
:1980 Author Organization [facility] Address [address] [place] [address] Care Team Providers Name Role Phone Needs Pcp, Assignment Primary Care Provider Reason for Visit Reason Comments Ultrasound Results Encounter Details Date Type Department Care Team Description 03/13/2020 Telephone [facility] Lillian Holbrook APRN, Ultrasound Results Services-SWITCHBOARD INSPECTOR [address] [place] [address] [phone] Social History Tobacco Use Types Packs/Day Years Used Date Smoking Tobacco: Never Smokeless Tobacco: Never Alcohol Use Standard Drinks/Week Comments Yes 1 (1 standard drink = 0.6 oz pure alcoho l) Alcoholic Drinks/day: Sex Assigned at Date Recorded Not on file documented as of this encounter Nursing Notes Akanksha Eisenberg - 03/15/2020 12:20 PM CST Patient notified and agrees with plan. CAL TECHNOLOGIST CHEMISTRY Akanksha Eisenberg - 03/15/2020 12:19 PM CST Britney Pacheco MD [facility] Triage 22 minutes ago (11:56 AM) VV is appropriate for this afternoon - Please and thank you! Message text Akanksha Villasenor - 03/14/2020 9:57 AM CST Called patient, scheduled appointment for tomorrow at 1:00 pm. Patient wondering if this could be video visit or if provider would need to see patient in clinic. Willing to come to clinic if needed. Routed to provider to advise. Lillian Pineda APRN, CNM - 03/14/2020 9:21 AM CST I reviewed US with Dr Aponte Would be appropriate to manage fibroids with hormones if patient would like to do this. I did call patient and reviewed US results and recommendations. She says pain/cramping is her main concern and this is why she had scheduled her annual. In our visit, I understood bleeding was her mainconcern. She has discharge/spotting cyclically that she thinks is her menses and this newer spottingis not her period. I did let her know that cramping and spotting are normal with fibroids. Fibroids are not related to uterine cancer - which she asked. I offered OCP. She would like another ablation and to review with an MD. Please call and schedule follow up with one of the MDs. Thanks. She is expecting a call. I am at [phone] today if you have questions before you call her back. Akanksha Villasenor - 03/13/2020 3:44 PM CST Called patient, reviewed provider's note below. Patient with many questions and RN reviewed would need to discuss with provider when back in clinic tomorrow. Patient verbalizes understanding. Meeta Pink MD - 03/13/2020 3:36 PM CST This is not an urgent matter. Pt should await till ordering provider who saw her and evaluated her gives proper follow up on her management based on her pelvic ultrasound results and overall clinical scenario. This will be routed to her ordering provider too. Thank you [facility] CAL TECHNOLOGIST CHEMISTRY Fabiana Garcia RN - 03/13/2020 2:28 PM CST Reason for Call: Radiology results requested. Next Steps: Document further recommendations and route to appropriate person or pool. Caller IS expecting a call back from Care Team. Additional Information: Pt calling for US results and pap results. Advised pap results are still in process, but the [facility] team would reach out to her once those are available. Reviewed that her provider has not advised on ultrasound results yet - pt is wondering if a coveringprovider could advise on these prior to tomorrow 03/14 (when Bobbi Holbrook will be back in office). Please advise on below US results in Bobbi Holbrook's absence. Thank you! Narrative & Impression IMPRESSION COMPARISON: None. ?? TECHNIQUE: Transabdominal and [...] in the remainder the study is normal. CAL TECHNOLOGIST CHEMISTRY documented in this encounter Plan of Treatment Not on filedocumented as of this encounter Visit Diagnoses Not on filedocumented in this encounter Care Teams Manager Life Insurance Relationship Specialty Start Date End Date Needs Pcp, Assignment PCP - General 08/12/14 [place] [address] documented as of this encounter
--- OUTSIDE RECORDS SUMMARY | 2022-03-23 17:29 | XMS_ITS | Encounter Summary ---
:1980 Author Organization [facility] Address [address], [place] [address] Care Team Providers Name Role Phone Needs Pcp, Assignment Primary Care Provider Reason for Referral Procedure/Equipment (Routine) - Incomplete Specialty Diagnoses / Procedures Referred By Contact Refer red To Contact Diagnoses Foot injury, left, initial encounter Osmani Morfin PA-C Procedures Airselect short boot (L4361) [address] [place] [address] Referral ID Status Reason Start Date Expiration Date Visits V isits Requested Authorized [id number] Incomplete 04/04/2020 07/04/2021 1 1 ER WASHER Procedure/Equipment (Routine) - Incomplete Specialty Diagnoses / Procedures Referred By Contact Refer red To Contact Diagnoses Foot injury, left, initial encounter Osmani Morifn PA-C Procedures XR Foot Lt 3+ Views [address] [place] [address] Referral ID Status Reason Start Date Expiration Date Visits V isits Requested Authorized [id number] Incomplete 04/04/2020 07/04/2021 1 1 ER WASHER Reason for Visit Reason Comments INJURY, TOES middle and fourth toe on L f oot Encounter Details Date Type Department Care Team Description 04/04/2020 Hospital Encounter [facility] [address] Osmani Morfin F oot injury, left, Urgent Care [facility] initial encounter [address] [address] [address] DOCKERY (Primary Dx) [place] [address] [phone] Social History Tobacco Use Types Packs/Day Years Used Date Smoking Tobacco: Never Smokeless Tobacco: Never Alcohol Use Standard Drinks/Week Comments Yes 1 (1 standard drink = 0.6 oz pure alcoho l) Alcoholic Drinks/day: Sex Assigned at Date Recorded Not on file documented as of this encounter Last Filed Vital Signs Vital Sign Reading Time Taken Comments Blood Pressure 146/90 04/04/2020 4:32 PM FILTER WASHER Pulse 71 04/04/2020 4:32 PM FILTER WASHER Temperature 36.8 ??C (98.3 ??F) 04/04/2020 4:32 PM FILTER WASHER Respiratory Rate 16 04/04/2020 4:32 PM FILTER WASHER Oxygen Saturation 97% 04/04/2020 4:32 PM FILTER WASHER Inhaled Oxygen Concentration - - Weight - - Height - - Body Mass Index - - documented in this encounter Discharge Instructions Discharge InstructionsLaOsmani macias PA-C - 04/04/2020 5:04 PM CST Rest Ibuprofen or tylenol, which ever you can tolerate Elevate Icing Avoid activities that increase pain Follow up as directed Boot for 10-14s and if still having pain... orthopedics Follow range of motion exercises as discussed ER WASHER documented in this encounter Medications at Time of Discharge Medication Sig Dispensed Refills Start Date End Date levothyroxine Take 50 mcg by mouth 0 01/03/2020 (SYNTHROID) 50 MCG daily. tablet norgestrel-ethinyl Take 1 Tablet by mouth 84 Tablet 3 03/15 estradiol (LO/OVRAL) daily. Take 0.3-30 MG-MCG continuously tabletIndications: Abnormal uterine bleeding (AUB), History of endometrial ablation, Uterine leiomyoma, unspecified location valACYclovir (VALTREX) Take 500 mg by mouth as 0 02/14/2020 500 MG tablet needed. documented as of this encounter ED Notes Osmani Morfin [facility] [place] - 04/04/2020 5:14 PM CST Left foot toe pain to middle and fourth finger. Reports tripped on toy a few weeks ago, had a lot ofbruising at the time, now bruising is better but pain not. Initial injury happened 3 weeks ago. She has been walking with pain since then. No numbness or tingling. [place] a lot more swelling initially. The swelling has somewhat subsided however the pain has persisted. Past Medical History: Past Medical History: Diagnosis Date ??? Cervical radiculopathy at C6 ??? Complication of anesthesia Nausea/Vomiting ??? Endometriosis Adverse Drug Reactions: Zolpidem tartrate Medications: levothyroxine, norgestrel-ethinyl estradiol, and valACYclovir Family History: Family History Problem Relation Age of Onset ??? Coronary Artery Disease Father ??? Heart Disease Father ??? High Cholesterol Mother ??? Migraines Mother ??? High Cholesterol Maternal Grandmother Social History: Social History Tobacco Use ??? Smoking status: Never Smoker ??? Smokeless tobacco: Never Used Substance Use Topics ??? Alcohol use: Yes Alcohol/week: 1.0 standard drinks Types: 1 Glasses of wine per week Comment: Alcoholic Drinks/day: ??? Drug use: No Vital Signs: BP (!) 146/90 (BP Location: Left Arm, BP Cuff Size: Regular) Pulse 71 Temp 36.8 ??C(98.3 ??F) (Oral) Resp 16 SpO2 97% Review of Systems: All systems were reviewed and found to be negative except as noted below. OBJECTIVE: General: NAD Skin: Mucous membranes are moist, no sign of dehydration. No abrasions or contusions musculoskeletal: Pulses and sensation are normal. There is pain over the 3rd and 4th phalanges of the left foot as well as pain to palpation of the forefoot on the left. Calcaneus and malleoli are nontender. Achilles is intact. No calf pain or knee pain. Orders Placed This Encounter ??? XR Foot Lt 3+ Views ??? Airselect short boot ([id number]) Labs: Labs Reviewed - No data to display X-Rays: Negative for any obvious fracture X-rays are initially evaluated myself independently. Result Date: 03/10/2020 Xr Foot Lt 3+ Views Result Date: 04/04/2020 COMPARISON: None. FINDINGS: Bony structures of the left foot are normal. Joint spaces appear within normal limits. There is no dislocation or significant degenerative change. ASSESSMENT: 1. Foot injury, left, initial encounter Medical Decision Making: Left foot pain for 3 weeks after acute injury. Sprain versus fracture. X-rays were obtained showing no sign of fracture making sprain more likely. PLAN: Patient was placed in a boot to help healing. Regular ibuprofen and icing. Use the boot over the next 10-14 days. If pain is still present, follow-up with Orthopedics or Podiatry. Medications - No data to display Medications Prescribed this Visit None Discharge Instructions Rest Ibuprofen or tylenol, which ever you can tolerate Elevate Icing Avoid activities that increase pain Follow up as directed Boot for 10-14s and if still having pain... orthopedics Follow range of motion exercises as discussed RTC p.r.n. ER WASHER documented in this encounter Plan of Treatment Not on filedocumented as of this encounter Procedures Procedure Name Priority Date/Time Associated Diagnosis Comme nts XR FOOT LT 3+ VIEWS Routine 04/04/2020 4:54 PM Foot injury, le ft, Results for this FILTER WASHER initial encounter procedure are in the results section. documented in this encounter Results XR Foot Lt 3+ Views (04/04/2020 4:54 PM FILTER WASHER) Anatomical Region Laterality Modality Lower Extremity, Foot Digital Radiograph y Specimen (Source) Anatomical Collection Method Collection Time Re ceived Time Location / / Volume Laterality 04/04/2020 4:44 PM FILTER WASHER Impressions 04/04/2020 4:58 PM FILTER WASHER COMPARISON: ??None. FINDINGS: ??Bony structures of the [...] no dislocation or significant degenerative change. Osmani Morfin PA-C RAD GD documented in this encounter Visit Diagnoses Diagnosis Foot injury, left, initial encounter - P [facility] Triage Assessment Note - Caitlyn Villegas RN - 04/04/2020 4:31 PM CST Left foot toe pain to middle and fourth finger. Reports tripped on toy a few weeks ago, had a lot ofbruising at the time, now bruising is better but pain not. ER WASHER documented in this encounter Care Teams Client Executive Relationship Specialty Start Date End Date Needs Pcp, Assignment PCP - General 08/12/14 [place], [place] [address] documented as of this encounter
--- OUTSIDE RECORDS SUMMARY | 2022-03-23 17:29 | XMS_ITS | Encounter Summary ---
:1980 Author Organization [facility] Address [address] [address] Care Team Providers Name Role Phone Needs Pcp, Assignment Primary Care Provider Reason for Visit Procedure/Equipment (Routine) - Incomplete Specialty Diagnoses / Procedures Referred By Contact Refer red To Contact Diagnoses Abnormal uterine bleeding (AUB) Lillian Holbrook APRN, CNM Procedures US Pelvic Complete [address] [phone] Referral ID Status Reason Start Date Expiration Date Visits V isits Requested Authorized [id number] Incomplete 02/29/2020 05/30/2021 1 1 Encounter Details Date Type Department Care Team Description 03/10/2020 [facility] [place] Lillian Ramírez, Abnormal ut erine Procedure [place] [address] RUG CLEANER HAND, MICHEAL bleeding (AUB) Ultrasound [address] [facility] [address] [place] [place] [address] [address] [place], [place] [phone] [address] (Work) [phone] Social History Tobacco Use Types Packs/Day Years Used Date Smoking Tobacco: Never Smokeless Tobacco: Never Alcohol Use Standard Drinks/Week Comments Yes 1 (1 standard drink = 0.6 oz pure alcoho l) Alcoholic Drinks/day: Sex Assigned at Date Recorded Not on file documented as of this encounter Progress Notes Lillian Holbrook APRN, MICHEAL - 03/10/2020 1:15 PM CST Spoke to her this am. Plans follow up with MD, see phone note. L WELDER documented in this encounter Plan of Treatment Not on filedocumented as of this encounter Procedures Procedure Name Priority Date/Time Associated Diagnosis Comme nts US PELVIC COMPLETE Routine 03/10/2020 1:42 PM Abnormal uterine Results for this W EV METAL WELDER bleeding (AUB) procedure are in the results section. documented in this encounter Results US Pelvic Complete W EV (03/10/2020 1:42 PM METAL WELDER) Anatomical Region Laterality Modality Pelvis Ultrasound Specimen (Source) Anatomical Collection Method Collection Time Re ceived Time Location / / Volume Laterality 03/10/2020 1:04 PM METAL WELDER Impressions 03/10/2020 1:46 PM METAL WELDER COMPARISON: ??None. TECHNIQUE: ??Transabdominal and transvag inal imaging was performed. FINDINGS: ?? Uterus: Measures 8.3 x 6.1 x 6.9 cm. Mul tiple fibroids are present at least 2 anteriorly and the largest lies posteriorly abutting the endometrium but appears intramural in position measuring 3.2 x 3.0 x 3.0 cm. Endometrium: Measures up to 0.3 cm in th ickness. Appears unremarkable. Right Ovary: Measures 2.5 x 1.7 x 2.1 cm and appears unremarkable Right Ovary Blood Flow: Present. Left Ovary: Measures 2.8 x 2.0 x 1.7 cm and appears unremarkable Left Ovary Blood Flow: Present. Free Fluid: no significant free fluid. IMPRESSION: 1. Uterine fibroids. 2. Endometrium shows no specific abnorma lities in the remainder the study is normal. Procedure Note Carlos Tay MD - 03/10/2020Format ting of this note might be different from the original. IMPRESSION COMPARISON: None. TECHNIQUE: Transabdominal and transvagin al imaging was performed. FINDINGS: Uterus: Measures 8.3 x 6.1 x 6.9 cm. Mul tiple fibroids are present at least 2 anteriorly and the largest lies posteriorly abutting the endometrium but appears intramural in position measuring 3.2 x 3.0 x 3.0 cm. Endometrium: Measures up to 0.3 cm in th ickness. Appears unremarkable. Right Ovary: Measures 2.5 x 1.7 x 2.1 cm and appears unremarkable Right Ovary Blood Flow: Present. Left Ovary: Measures 2.8 x 2.0 x 1.7 cm and appears unremarkable Left Ovary Blood Flow: Present. Free Fluid: no significant free fluid. IMPRESSION: 1. Uterine fibroids. 2. Endometrium shows no specific abnorma lities in the remainder the study is normal. Lillian Holbrook RUG CLEANER HAND, CNM RAD US documented in this encounter Visit Diagnoses Diagnosis Abnormal uterine bleeding (AUB) documented in this encounter Care Teams Testing Shaking Shipping Relationship Specialty Start Date End Date Needs Pcp, Assignment PCP - General 08/12/14 [place] [address] documented as of this encounter
--- OUTSIDE RECORDS SUMMARY | 2022-03-23 17:30 | XMS_ITS | Encounter Summary ---
:1980 Author Organization [employer] Address [address], [place] [address] Care Team Providers Name Role Phone Needs Pcp, Assignment Primary Care Provider Reason for Visit Reason Comments Sinusitis Encounter Details Date Type Department Care Team Description 04/17/2017 Hospital Encounter [facility] Che Ochoa, Juan zach non-recurrent Care PA-C maxillary sinusitis [address] [address] [phone] Social History Tobacco Use Types Packs/Day Years Used Date Smoking Tobacco: Never Smokeless Tobacco: Never Alcohol Use Standard Drinks/Week Comments Yes 1 (1 standard drink = 0.6 oz pure alcoho l) Alcoholic Drinks/day: Sex Assigned at Date Recorded Not on file documented as of this encounter Last Filed Vital Signs Vital Sign Reading Time Taken Comments Blood Pressure 110/68 04/17/2017 8:35 AM ELECTRICIAN CONSTRUCTOR SUPERVISOR Pulse 82 04/17/2017 8:35 AM ELECTRICIAN CONSTRUCTOR SUPERVISOR Temperature 37 ??C (98.6 ??F) 04/17/2017 8:35 AM ELECTRICIAN CONSTRUCTOR SUPERVISOR Respiratory Rate 16 04/17/2017 8:35 AM ELECTRICIAN CONSTRUCTOR SUPERVISOR Oxygen Saturation 98% 04/17/2017 8:35 AM ELECTRICIAN CONSTRUCTOR SUPERVISOR Inhaled Oxygen Concentration - - Weight - - Height - - Body Mass Index - - documented in this encounter Medications at Time of Discharge Medication Sig Dispensed Refills Start Date End Date amoxicillin-clavulanate Take 1 Tab by mouth 20 Tab 0 07/201704/27/2017 (AUGMENTIN) 875-125 mg two times a day for per tablet 10 days. fluconazole (DIFLUCAN) Take 1 Tab by mouth 1 Tab 0 07/201704/17/2017 150 MG tablet once for 1 dose. ALBUterol sulfate HFA 108 Inhale 1-2 Puffs 1 Inhaler 0 12/1402/29/2020 (90 BASE) MCG/ACT every 4 hours as inhalerIndications: needed for Wheezing. Asthma with acute exacerbation, unspecified asthma severity (HRC) fluticasone (FLOVENT HFA) Inhale 1 Puff two 12 g 0 03/15/2020 110 mcg/actuation times a day. inhalerIndications: Asthma with acute exacerbation, unspecified asthma severity (HRC) Terbinafine HCl (LAMISIL 0 12/21/2019 OR) documented as of this encounter ED Notes Che Ochoa PA-C - 04/17/2017 8:40 AM CST SUBJECTIVE: HPI: Lacey Nolasco is a 37 y.o. female who presents with URI symptoms. Symptoms started 2 weeks ago. Patient reports rhinorrhea, nasal congestion with minimal nasal discharge, and sinus pressure/ pain.States her ears feel pressured and painful. does not have fevers. does have tooth pain.This feels like a sinus infection. She has had minimal cough. Lacey Nolasco has tried sinex with Small improvementin the symptoms. Other sick contacts: kids have had similar symptoms. PMH: Past Medical History: Diagnosis Date ??? Acne vulgaris ??? Asthma (HRC) ??? Cervical radiculopathy at C6 ??? Complication of anesthesia ??? Endometriosis ??? Headache(784.0) Medications: Reviewed in EMR Allergies: Allergies Allergen Reactions ??? Zolpidem Tartrate Paradoxical reaction ROS: ROS otherwise unremarkable. OBJECTIVE: Filed Vitals: 04/17/17 0835 BP: 110/68 Pulse: 82 Resp: 16 Temp: 37 ??C (98.6 ??F) TempSrc: Oral SpO2: 98% General: Appears mildly ill, nontoxic. NAD. Breathing easily. Eyes: PERRLA, full EOM. External normal. Ears: Normal pinnae, canals, and TM's. Nose: mildly congested. Sinus: moderately tender over her maxillary sinuses. No facial swelling or rash. Throat: Moist mucous membranes without lesions, erythema, or exudate; no postnasal drainage or injection. Tonsils within normal size. Airway intact with normal phonation. Neck: Supple, without masses, lymphadenopathy or tenderness. Respiratory: Normal respiratory effort. Lungs are clear with good breath sounds. Heart:RR without murmurs, rubs, or gallops. ASSESSMENT: 1. Sinusitis 2. Cough PLAN: Rx for augmentin bid x 10 days and she is requesting diflucan as she gets yeast infections on antibiotics. Side effect profile reviewed. Sinusitis instruction card was given. Sinus irrigation (Neti Pot) was discussed with sterile water, and demonstrated. Use OTC analgesics (tylenol/ ibuprofen) PRN, oral decongestants, and decongestant nasal spray (maximum 4 days). Encouraged fluids and rest as needed. RTC PRN if not gradually improving. Lacey Nolasco was discharged ambulatory and in stable condition. All questions answered. Please note that the above medical documentation was created with voice recognition software and may contain typographic errors. TRICIAN CONSTRUCTOR SUPERVISOR documented in this encounter Plan of Treatment Not on filedocumented as of this encounter Visit Diagnoses Diagnosis Acute non-recurrent maxillary sinusitis Triage Assessment Note - Iva Mejia RN - 04/17/2017 8:31 AM CST Sinus pressure, pain, and congestions x 2 weeks. Ear pain x 2 weeks. TRICIAN CONSTRUCTOR SUPERVISOR documented in this encounter Care Teams Wharf Builder Relationship Specialty Start Date End Date Needs Pcp, Assignment PCP - General 08/12/14 [place] [address] documented as of this encounter
--- OUTSIDE RECORDS SUMMARY | 2022-03-23 17:30 | XMS_ITS | Encounter Summary ---
:1980 Author Organization [facility] Address [address] [place] [address] Care Team Providers Name Role Phone Needs Pcp, Assignment Primary Care Provider Encounter Details Date Type Department Care Team Description 12/22/[address], [facility] Sinus congestion; [address] Headache, unspecified headac he type; [place] [address] Exposure to COVID-19 virus [phone] Social History Tobacco Use Types Packs/Day Years [...] Name Priority Date/Time Associated Diagnosis Comme nts 2019 NOVEL Routine 12/22/2019 3:03 PM Sinus congest ion Results for this CORONAVIRUS CDT Headache, procedure are i n unspecified headache the res ults type section. Exposure to COVID-19 virus documented in this encounter Results 2019 Novel Coronavirus (COVID-19) (12/22/2019 3:03 PM CDT) [facility] Method Time Signature SARS Cov-2 Not Provided 12/26/2019 [facility] Source 1:43 PM CDT LABORATORIES Comment: Specimen source was not provided. ??Plea se refer to the [facility] Test Directory for validated specimen source information: [email or web address] ing. ??Interpret results with caution. SARS-CoV-2 by PCR Not Detected 12/26/2019 1:43 PM CDT [facility] Comment: INTERPRETIVE INFORMATION: SARS-CoV-2 (CO VID-19) by NATALYA This test should be ordered for the dete ction of the 2019 novel coronavirus SARS-CoV-2 in individuals wh o meet SARS-CoV-2 clinical and/or epidemiological criteria. The Coronavirus SARS-CoV-2 (COVID-19) by nucleic acid amplification test is for in vitro diagn ostic use under the FDA Emergency Use Authorization (EUA) for US laboratories certified under CLIA to perform high complexity te sts. This test has not been FDA cleared or approved. In complia nce with this authorization, please visit [email or web address] for more information and to access the applicable information sheets. Not Detected results do not rule out the presence of PCR inhibitors in the patient specimen or as say specific nucleic acid in concentrations below the level of det ection by the assay. Detected results are indicative of the p resence of SARS-CoV-2 RNA. Due to the complexity of nucleic acid am plification methodologies, there may be a risk of false positive re sults. Clinical correlation with patient history and oth er diagnostic information is necessary to determine patient infect ion status. Reliable results are dependent on adequa te specimen collection, transport, storage, and handling. Performed by [facility], [address] [place] [id number] [email or web address], Selin Wilkinson MD, Lab. Director Specimen Anatomical Collection Method Collection Time Receive d Time (Source) Location / / Volume Laterality Swab (Source Non-blood 12/22/2019 3:03 PM 0 Required) Collection / CDT 10:12 PM CDT Unknown Shashi Momin PA-C LAB_1 Performing Organization Address City/State/ZIP Code Phon e Number [facility] [address] [place], [place] [phone] documented in this encounter Visit Diagnoses Diagnosis Sinus congestion Other diseases of nasal cavity and sinus es Headache, unspecified headache type Exposure to COVID-19 virus documented in this encounter Additional Health Concerns Infection Onset Date Last Indicated Resolved Time R/O COVID19 12/22/2019 12/22/2019 12/26/2019 2:43 PM CDT documented as of this encounter Care Teams Storage Management Consultant Relationship Specialty Start Date End Date Needs Pcp, Assignment PCP - General 08/12/14 [place] [address] documented as of this encounter
--- OUTSIDE RECORDS SUMMARY | 2022-03-23 17:30 | XMS_ITS | Encounter Summary ---
:1980 Author Organization [employer] Address [address], [place] [address] Care Team Providers Name Role Phone Needs Pcp, Assignment Primary Care Provider Reason for Visit Reason Comments Vaginal Discharge Encounter Details Date Type Department Care Team Description 12/14/2014 Nurse Triage [facility] Amaya Vag inal Discharge Services-SOCIAL WORK THERAPIST MD Kiran [id number] [place] [address] [address] [place] [address] [place], [place] [phone] (Wo rk) [phone] Social History Tobacco Use Types Packs/Day Years Used Date Smoking Tobacco: Never Assessed Sex Assigned at Date Recorded Not on file documented as of this encounter Nursing Notes Brittni Castro RN - 12/14/2014 4:39 PM CDT Protocol: VAGINAL [id number] Affirmative: Symptoms of a vaginal yeast infection (i.e., white, thick, [id number]-iydcni-[id number], itchy, not bad smelling discharge) Disposition of Home Care suggested. Calling with 3day hx of vaginal itching, white thick discharge and irritation/redness in vaginal area. Has not tried OTC cream however asking if provider will give RX of Diflucan. Please advise. Sent to care professionals provider. documented in this encounter Plan of Treatment Not on filedocumented as of this encounter Visit Diagnoses Not on filedocumented in this encounter Care Teams Actuarial Science Professor Relationship Specialty Start Date End Date Needs Pcp, Assignment PCP - General 08/12/14 [facility] [place] [address] documented as of this encounter
--- OUTSIDE RECORDS SUMMARY | 2022-03-23 17:30 | XMS_ITS | Encounter Summary ---
:1980 [email or web address] Address [address] [place] [address] Care Team Providers Name Role Phone Needs Pcp, Assignment Primary Care Provider Reason for Visit Reason Onset Date Comments LETTER NEEDED 01/31/2016 Encounter Details Date Type Department Care Team Description 01/31/2016 Telephone [facility] Elizabeth Oswald LETTER NEEDED [address] [place] [address] Social History Tobacco Use Types Packs/Day Years Used Date Smoking Tobacco: Never Smokeless Tobacco: Never Alcohol Use Standard Drinks/Week Comments Yes 1 (1 standard drink = 0.6 oz pure alcoho l) Alcoholic Drinks/day: Sex Assigned at Date Recorded Not on file documented as of this encounter Nursing Notes Ann Marie Cisneros MA - 02/02/2016 9:42 AM CDT Sent letter in mail today Che Otoole RN - 01/31/2016 3:46 PM CDT Patient calling back, she would like this mailed to her home address on file (verified). Elizabeth Oswald PA-C - 01/31/2016 3:39 PM CDT Letter dictated. LVM letting patient know this and asked her to return a call to let us know if she would like this mailed or if she will pick it up. 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 She asks if a similar letter with today's date be composed. Patient faxed previous letter to our clinic and this was forwarded on to her care team to use as a template. LVM with patient requesting a call back to let us know how she would like to obtain this letter. Patient can be reached at [phone]. documented in this encounter Plan of Treatment Not on filedocumented as of this encounter Visit Diagnoses Not on filedocumented in this encounter Care Teams Shirring Machine Operator Relationship Specialty Start Date End Date Needs Pcp, Assignment PCP - General 08/12/14 [place] [address] documented as of this encounter
--- OUTSIDE RECORDS SUMMARY | 2022-03-23 17:30 | XMS_ITS | Encounter Summary ---
:1980 Author Organization [facility] Address [address], [place] [address] Care Team Providers Name Role Phone Needs Pcp, Assignment Primary Care Provider Reason for Visit Procedure/Equipment (Routine) - Incomplete Specialty Diagnoses / Procedures Referred By Contact Refer red To Contact Procedures Provider, Foreign Images Foreign Image(S) Mammogram [address] [place] [address] Referral ID Status Reason Start Date Expiration Date Visits V isits Requested Authorized [id number] Incomplete 11/02/2020 02/01/2022 1 1 Encounter Details Date Type Department Care Team Description 06/04/2019 Ancillary Procedure [facility] PACS Provider, [address] [place] [address] [address] [place] [address] Social History Tobacco Use Types Packs/Day Years [...] Name Priority Date/Time Associated Diagnosis Comme nts FOREIGN IMAGE(S) Routine 06/04/2019 2:00 PM Resul ts for this MAMMOGRAM CORE DRILL OPERATOR procedure are i n the results section. documented in this encounter Results Foreign Image(S) Mammogram (06/04/2019 2:00 PM CORE DRILL OPERATOR) Specimen (Source) Anatomical Location Collection Method / Collectio n Time Received Time / Laterality Volume Narrative POCT - 11/02/2020 11:20 AM CDT These outside images have been uploaded into PACS. If the results were provided, they will be located in the pa raphael's chart under the Media or Imaging tab. Foreign Images Provider RAD NON-REPORTABLES Performing Organization Address City/State/ZIP Code Phon e Number POCT documented in this encounter Visit Diagnoses Not on filedocumented in this encounter Care Teams Cotton Stripper Relationship Specialty Start Date End Date Needs Pcp, Assignment PCP - General 08/12/14 [place] [address] documented as of this encounter
--- OUTSIDE RECORDS SUMMARY | 2022-03-23 17:30 | XMS_ITS | Encounter Summary ---
:1980 Author Organization [facility] Address [address], [place] [address] Care Team Providers Name Role Phone Needs Pcp, Assignment Primary Care Provider Reason for Visit Reason Onset Date Comments ITCHING, VAGINAL 07/18/2016 Encounter Details Date Type Department Care Team Description 07/18/2016 Telephone [facility] Sonja Dalton, ITCHING, VAGINAL Services-REMOTE MEDICAL CODER VOCATIONAL PLACEMENT SPECIALIST, DEPUTY PROSECUTING ATTORNEY [address] [facility], [address] [facility] [place] [phone] (Wo rk) Social History Tobacco Use Types Packs/Day Years Used Date Smoking Tobacco: Never Smokeless Tobacco: Never Alcohol Use Standard Drinks/Week Comments Yes 1 (1 standard drink = 0.6 oz pure alcoho l) Alcoholic Drinks/day: Sex Assigned at Date Recorded Not on file documented as of this encounter Nursing Notes Dacia Turpin RN - 07/18/2016 8:27 AM CDT Lacey Nolasco is a 36 y.o. old woman with the following symptoms. If two or more symptoms present, continue with standing order: Vaginal discharge, thick whitish in color and Vaginal itching Patient has the following serious or complicating symptoms present. If any of the following symptomspresent, patient should be scheduled for a clinician visit: none : No Allergies: Zolpidem tartrate Assessment: Yeast vaginitis Plan: Oral and vaginal therapies are considered equally effective. If patient has failed OTC topical treatment, Fluconozole (Diflucan) is preferred course of treatment. Abstain from intercourse during treatment. Fluconazole (Diflucan) 150mg, one by mouth now, may repeat in 3-5 days if symptoms persist. If no improvement within 5 days, schedule appointment with clinician. Reviewed Allergies, Medication and Problem list. documented in this encounter Plan of Treatment Not on filedocumented as of this encounter Visit Diagnoses Diagnosis Yeast vaginitis - Primary Candidiasis of vulva and vagina documented in this encounter Care Teams Operational Risk Analyst Relationship Specialty Start Date End Date Needs Pcp, Assignment PCP - General 08/12/14 [place] [address] documented as of this encounter
--- OUTSIDE RECORDS SUMMARY | 2022-03-23 17:30 | XMS_ITS | Encounter Summary ---
:1980 Author Organization [facility] Address [address] [place] [address] Care Team Providers Name Role Phone Needs Pcp, Assignment Primary Care Provider Encounter Details Date Type Department Care Team Description 02/20/[address] Contact with or exposure [address] [place] [address] to viral disease [place] [phone] Social History Tobacco Use Types Packs/Day Years [...] Procedure Name Priority Date/Time Associated Comments Diagnosis 2019 NOVEL Routine 02/20/2020 9:42 AM Contact with or Result s for this CORONAVIRUS PC MAINTENANCE TECHNICIAN exposure to viral procedure are in disease the results section. documented in this encounter Results Asymptomatic - 2019 Novel Coronavirus (COVID-19) (02/20/2020 9:42 AM PC MAINTENANCE TECHNICIAN) [facility] Method Time Signature SARS Not Detected Not Detected 02/23/2020 [facility] CORONAVIRUS 2 11:25 PM RNA IN PC MAINTENANCE TECHNICIAN RESPIRATORY SPECIMEN BY NATALYA W Comment: Results and Interpretation Negative: SARS-CoV-2 not detected Testing did not identify the presence of SARS-CoV-2 (the virus that causes COVID-19) in the patient's sample. Many factors can impact the sensitivity of this test, including variability in sample collection technique, stage of infection, or the presence of interfering substances. Collection of multiple samples may be necessary to detect the SARS-CoV- 2 virus. If clinically indicated, consider collecting a new sample for COVID-19 testing or testing for other respiratory viruses. Methods and Limitations This test was developed for the detectio n of nucleic acids from the SARS-CoV-2 virus by RT-PCR in individuals who meet SARS-CoV-2 clinical and/or epidemiological criteria. This test has not been FDA cleared or ap proved. This test has been authorized by FDA und er an EUA for use by the authorized laboratory. This test is only authorized for the duration of time that the Cylinder Block Hole Reliner of the [facility] declares circumstances exist j ustifying the authorization of the emerg ency use of in vitro diagnostic tests for detection of SARS-CoV-2 virus and/or diagnosis of COVID-19 infection under section 564(b)(1) of the Act, 21 U.S.C. 360bb b-3(b)(1), unless the authorization is t erminated or revoked sooner. To learn more about this test, go to [employer] [email or web address] Performed by: RICARDO Smalls [id number], CLIA [id number], [address] [place] [address] Yeast Culture Operator: Andres Diaz, Ph D, [facility] [place] ([facility]) Specimen Anatomical Collection Method Collection Time Receive d Time (Source) Location / / Volume Laterality Swab (Source Non-blood 02/20/2020 9:42 AM 0 Required) Collection / PC MAINTENANCE TECHNICIAN 12:39 PM PC MAINTENANCE TECHNICIAN Unknown Assignment Needs Pcp LAB_1 Performing Organization Address City/State/ZIP Code Phon e Number [place] [address] [facility] [place] [address] documented in this encounter Visit Diagnoses Diagnosis Contact with or exposure to viral diseas e Contact with or exposure to other viral diseases documented in this encounter Care Teams Apprentice Technician Relationship Specialty Start Date End Date Needs Pcp, Assignment PCP - General 08/12/14 [place] [address] documented as of this encounter
--- OUTSIDE RECORDS SUMMARY | 2022-03-23 17:30 | XMS_ITS | Encounter Summary ---
:1980 [facility] Address [address], [place] [address] Care Team Providers Name Role Phone Needs Pcp, Assignment Primary Care Provider Reason for Visit Reason Comments EXAM,ENROLLMENT MANAGEMENT DIRECTOR Encounter Details Date Type Department Care Team Description 06/09/2015 Office Visit [facility] Sonja Dalton female exam with routine gynecological exam (Primary Dx); Services-MINER HELPER J, TOE PUNCHER, HOME RESTORATION SERVICE CLEANER Routine cervical smear; [address] Routine general medical examination at a [facility] [address], [address] [place] [id number] Social History Tobacco Use Types Packs/Day Years Used Date Smoking Tobacco: Never Assessed Sex Assigned at Date Recorded Not on file documented as of this encounter Last Filed Vital Signs Vital Sign Reading Time Taken Comments Blood Pressure 111/73 06/09/2015 8:29 AM MRB ENGINEER Pulse 86 06/09/2015 8:29 AM MRB ENGINEER Temperature - - Respiratory Rate - - Oxygen Saturation - - Inhaled Oxygen Concentration - - Weight 84.2 kg (185 lb 9.6 oz) 06/09/2015 8:29 AM MRB ENGINEER Height 165.1 cm (5' 5) 06/09/2015 8:29 AM MRB ENGINEER Body Mass Index 30.89 06/09/2015 8:29 AM MRB ENGINEER documented in this encounter Progress Notes Funmi Robledo, RN - 06/16/2015 1:52 PM MRB ENGINEER Quick Note: Dear Lacey, I am writing to let you know that your PAP and HPV result is negative. This means that your test result was normal. No cancer or precancerous cells were seen. Based on current cervical cancer screening recommendations, your next PAP and HPV should be in 3 years. Continue to schedule your annual preventive exams for your overall health. If you have questions about cervical cancer screening or your test results, call Cervical Cancer Screening and Management Team [phone] Sincerely, Funmi Robledo RN on behalf of Dr. Suzi Maldonado, Fishing Captain [place] Cervical Cancer Screening and Management ENGINEER Sonja Dalton, CARLITOS, HOME RESTORATION SERVICE CLEANER - 06/09/2015 8:56 AM CST Preventive Exam & Pelvic SUBJECTIVE: Lacey Nolasco is a 35 y.o. female who presents for a routine preventive physical exam. Pt denies any problems at this time. Pt stated that since the Ablation her menses are irregular and very light. Past Medical/Surgical History: Updated in [facility] Director Facilities Maintenance History: LMP: No LMP recorded. Patient has had an ablation. /Para: Pap Smear history: No abnormal pap's , last pap 2012 Current Contraceptive Method: has vasectomy Adverse Drug Reactions: Pt's Adverse Drug Reactions were reviewed and updated today. Current Medications: Reviewed and updated today. Family History: (First degree family members) Updated in [facility] Preventive Health Assessment: Performs self breast exams: yes Calcium intake: adequate Colonoscopy or sigmoidoscopy done:NA Mammogram: NA Bone Density: NA Lipid screen: Lab Results Component Value Date CHOL 3.6 10/09/2010 Lab Results Component Value Date HDL 61 10/09/2010 No results found for: LDLCALC No results found for: TRIG No results found for: CHOLHDL Review of Systems: With the exception of any items noted above, the remainder of the complete ROS is negative. OBJECTIVE: General: Patient alert, in NAD. HEENT: Pupils equal, sclera clear. Oropharynx normal. Neck: Supple, without thyromegaly or mass. CV: Regular rate and rhythm Resp: Clear to auscultation Abdomen: soft, non-tender, without masses or organomegaly Breasts: normal appearance, no masses or tenderness Bilaterally scars form breast lift Lymphatic: No neck, supraclavicular, axillary or groin lymphadenopathy. Lower Extremities: FROM, normal gait without edema, lesions, or deformity. Pelvic- EGBUS within normal limits, normal vagina and vulva, vaginal discharge described as normal and physiologic, normal cervix without lesions, polyps or tenderness, multiparous os, uterus anteverted, uterus normal size, shape, consistency, no mass or tenderness, normal pelvic floor musculature, pap smear schedule reviewed with patient, pap smear done today Rectum; no masses or lesions Skin: No lesions. Neuro: Motor & sensory function all intact. Psychiatric: Alert & oriented with normal affect and insight. Patient does not appear depressed or anxious. ASSESSMENT: Routine preventive exam. pap irregular menses due to ablation PLAN: Pap smear. Follow-up in 1 year, sooner PRN any concerns. Sonja Dalton APRN, BONITA ENGINEER documented in this encounter Miscellaneous Notes Miscellaneous - 05/22/2016 9:09 PM CSTNotes Recorded by Funmi Robledo RN on 06/16/2015 at 1:52 PMHuy Rahman,I am writing to let you know that your PAP and HPV result is negative. This means that your test result was normal. No cancer or precancerous cells were seen.Based on current cervical cancer screening recommendations, your next PAP and HPV should be in 3 years. Continue to schedule your annual preventive exams for your overall health.If you have questions about cervical cancer screening or your test results, callCervical Cancer Screening and Management Team [phone],Funmi Robledo RN on behalf ofDr. Suzi Maldonado, Medical DirectorChildren'S [place] Cervical Cancer Screening and Management ENGINEER Miscellaneous - 05/22/2016 9:09 PM CSTNotes Recorded by Funmi Robledo RN on 06/16/2015 at 1:52 PMHuy Rahman,I am writing to let you know that your PAP and HPV result is negative. This means that your test result was normal. No cancer or precancerous cells were seen.Based on current cervical cancer screening recommendations, your next PAP and HPV should be in 3 years. Continue to schedule your annual preventive exams for your overall health.If you have questions about cervical cancer screening or your test results, callCervical Cancer Screening and Management Team [phone] Clancy RN on behalf ofDr. Suzi Maldonado, Medical DirectorAlton [facility]elia Cervical Cancer Screening and Management ENGINEER documented in this encounter Plan of Treatment Not on filedocumented as of this encounter Procedures Procedure Name Priority Date/Time Associated Comments Diagnosis PAP TEST ORDER Routine 06/09/2015 9:13 AM Routine cervical Res ults for this MRB ENGINEER smear procedure are i n the results section. HPV WITH 16 18 Routine 06/09/2015 9:13 AM Results for this GENOTYPING, MRB ENGINEER procedure are i n CERVICAL/ENDOCERVICA the res ults L section. ANATOMICAL PATH Routine 06/09/2015 9:13 AM Result s for this LIQUID BASED MRB ENGINEER procedure are i n the results section. documented in this encounter Results Pap Smear (06/09/2015 9:13 AM MRB ENGINEER) Specimen (Source) Anatomical Collection Method Collection Time Re ceived Time Location / / Volume Laterality 06/09/2015 9:13 AM MRB ENGINEER Narrative HP CONVERSION - 06/15/2015 11:55 AM MRB ENGINEER FINAL GYNECOLOGICAL CYTOLOGY REPORT Pathology #: [id number] ?Date Obtained: 06/09/2015 ? Date Received: 06/12/2015 INTERPRETATION/RESULTS: Negative for Intraepithelial Lesion or M alignancy. SPECIMEN ADEQUACY: Satisfactory for Evaluation. ??No endoce rvical cells/transformation zone component present. Verified on 06/15/2015 ??by EUGENIO BAUMANN EN, CT(ASCP) (electronic signature) CLINICAL NOTES: ?Abnormal bleeding: No, LMP: abl ation, Menstrual status: None ?Apply, Current form of therapy: None apply LIQUID BASED PAP SMEAR SPECIMEN TYPE: ?ROUTINE CERVICAL PAP TEST PLEASE NOTE: The pap smear is a screening test design ed to aid in the detection of cervical cancer and its pre cursor lesions. It is not a diagnostic procedure and luiza uld not be used as the sole means of detecting cervical cancer. Both false-positive and false-negative report s may occur. Performed at [facility], [address] [facility], [place] [address] Transcriptions 05/22/2016 9:09 PM CSTNotes Recorded by Funmi Robledo RN on 06/16/2015 at 1:52 PMDear Lacey, I am writing to let you know that your PAP and HPV result is negative. This means that your test resu lt was normal. No cancer or precancerous cells were seen. Based on current cervical cancer screening recommendations, your next PAP and HPV should be in 3 years. Continue to schedule your annual preventive exams for your overall health. If you have questions about cervical can cer screening or your test results, call Cervical Cancer Screening and Management Team [phone],Funmi Robledo RN on behalf ofDr. Suzi Maldonado, Fishing Captain [facility] Cervical Cancer Screening and Management Sonja Dalton APRN, HOME RESTORATION SERVICE CLEANER LAB_1 Performing Organization Address City/State/ZIP Code Phon e Number HP CONVERSION HPV with 16 18 Genotyping (06/09/2015 9:13 AM MRB ENGINEER) [facility] Method Time Signature HPV High Risk Not Detected HP CONVERSION 16 HPV High Risk Not Detected HP CONVERSION 18 Other HPV Not Detected HP CONVERSION High Risk Not 16/18 Comment: The Jack HPV Test is a qualitative in v itro test for the detection of Human Papillomavirus in [facility] patient specimens. ??The test utilizes amplifica tion of target DNA by Polymerase Chain Reaction (PCR) and n ucleic acid hybridization for the detection of 14 hi gh-risk (HR) HPV types. The assay tests for high risk typ es (16, 18, 31, 33, 35, 39, 45, 51, 52, 56, 58, 59, 66 and 6 8). NOTE: This test was developed and its pe rformance characteristics determined by [facility] [employer]. It has not been cleared or approved by [facility]. The laboratory is regulated under CLIA as qualified to perform high-complexity testing. This test is used for clinical purposes. It should not be regarded as investigational or fo r research. Specimen Anatomical Collection Method Collection Time Receive d Time (Source) Location / / Volume Laterality 06/09/2015 9:13 AM 6 9:13 MRB ENGINEER AM MRB ENGINEER Narrative HP CONVERSION - 06/13/2015 3:28 PM MRB ENGINEER Performed at [facility], [facility] [place] [address] CLIA number [id number] Transcriptions 05/22/2016 9:09 PM CSTNotes Recorded by Funmi Robledo, RN on 06/16/2015 at 1:52 PMDear Lacey, I am writing to let you know that your PAP and HPV result is negative. This means that your test resu lt was normal. No cancer or precancerous cells were seen. Based on current cervical cancer screening recommendations, your next PAP and HPV should be in 3 years. Continue to schedule your annual preventive exams for your overall health. If you have questions about cervical can cer screening or your test results, call Cervical Cancer Screening and Management Team [phone],Funmi Robledo RN on behalf ofDr. Suzi Maldonado, Fishing Captain [facility] Cervical Cancer Screening and Management Sonja Dalton APRN, CNP LAB_1 Performing Organization Address City/[facility]/ZIP Code Phon e Number HP CONVERSION Pap Test Order (06/09/2015 9:13 AM MRB ENGINEER) [facility] Method Time Signature Pap Smear Collected HP CONVERSION Monolayer tracking test Specimen Anatomical Collection Method Collection Time Receive d Time (Source) Location / / Volume Laterality 06/09/2015 9:13 AM 6 6:40 MRB ENGINEER AM MRB ENGINEER Sonja Dalton APRN, CNP LAB_1 Performing Organization Address City/[facility] Phon e Number HP CONVERSION documented in this encounter Visit Diagnoses Diagnosis Well female exam with routine gynecologi ren exam - Primary Routine gynecological examination Routine cervical smear Screening for malignant neoplasm of the cervix Routine general medical examination at a health care facility documented in this encounter Care Teams Home School Teacher Relationship Specialty Start Date End Date Needs Pcp, Assignment PCP - General 08/12/14 [place] [address] documented as of this encounter
--- OUTSIDE RECORDS SUMMARY | 2022-03-23 17:30 | XMS_ITS | Encounter Summary ---
:1980 Author Organization [facility] Address [address] [address] Care Team Providers Name Role Phone Needs Pcp, Assignment Primary Care Provider Reason for Visit Reason Comments Knee Pain or Injury Encounter Details Date Type Department Care Team Description 04/18/2015 Surgical Consult Elizabeth Maynard, Patello femoral arthralgia of both knees (Primary Dx); Orthopedics [facility] Bilateral knee pain [address] [address] [facility] [place] [address] [phone] Social History Tobacco Use Types Packs/Day Years Used Date Smoking Tobacco: Never Assessed Sex Assigned at Date Recorded Not on file documented as of this encounter Progress Notes Elizabeth Oswald, [facility] - 04/20/2015 4:02 PM CST Subjective: Lacey Nolasco is a 35 y.o. female referred by herself for evaluation and treatment of bilateral knee pain. This is evaluated as a personal injury. Patient states she has a several year history of knee pain. The pain only occurs during running. She states she can do normal activities and other exercises without any problems, but when she starts to run, she has significant discomfort in the kneecap areas. 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 She tries to do some training prior to the test, but always ends up with pain. After training and completing runs, she has pain with inclines and decelerations, such as hills and stairs. She denies any locking, catching or giving out. No pain outside of her runs. She has tried new shoes, orthotics, home PT, braces, NSAIDs, ice without relief. Past Medical History, Past Surgical History, Social History, and Family Medical History was reviewedand updated as appropriate. A complete review of systems was reviewed per the intake sheet and negative except asthma, joint pain Current Outpatient Prescriptions Medication Sig Dispense Refill ??? amoxicillin-clavulanate (AUGMENTIN) 875-125 mg per tablet Take 1 tablet by mouth 2 times daily. 20 tablet 0 ??? diazepam (VALIUM) 10 mg tablet Take 1 tablet by mouth every 8 hours as needed for Anxiety. 1 tablet 0 No current facility-administered medications for this visit. Allergies Allergen Reactions ??? Aliasuma Richi Blacks out Objective: General: Well-developed, well-nourished female in no acute distress. Alert and oriented x 3 Gait: Normal heel-to-toe gait. The patient can bear weight on the injured extremity. Neurovascular: Toes intact to pressure and light touch. Posterior tibialis pulse is present. Skin: clean, dry, intact. No rashes or lesions. Right Lower Extremity: No effusion. No ecchymosis No tenderness over the joint line. Mild tenderness over the medial and lateral facets Knee extension: 0 Knee flexion: 140 No subpatellar crepitus Strength testin of 5 quadriceps strength, 5 of 5 EHL strength, 5 of 5 gastroc-soleus strength, 5of 5 hamstring strength, 5 of 5 tibialis anterior strength. Patella tracks normally. Karli's test: negative Anterior drawer: negative Posterior drawer: negative Lateral collateral ligament: no laxity to varus stress at 0 and 30 degrees Medial collateral ligament: no laxity to valgus stress at 0 and 30 degrees Mathieu's test: negative Patellar compression test: positive Left Lower Extremity: No effusion. No ecchymosis No tenderness over the joint line. No tenderness over the patella Knee extension: 0 Knee flexion: 140 No subpatellar crepitus Strength testin of 5 quadriceps strength, 5 of 5 EHL strength, 5 of 5 gastroc-soleus strength, 5of 5 hamstring strength, 5 of 5 tibialis anterior strength. Patella tracks normally. Karli's test: negative Anterior drawer: negative Posterior drawer: negative Lateral collateral ligament: no laxity to varus stress at 0 and 30 degrees Medial collateral ligament: no laxity to valgus stress at 0 and 30 degrees Mathieu's test: negative Patellar compression test: slightly positive Imaging X-rays: 3 views of the knees were taken and independently reviewed. There is no fractures, dislocations, or obvious joint abnormalities Assessment: Bilateral knee patellofemoral arthralgia, induced by running Plan: Reviewed treatment plan with the patient. Encourage activity modification and limited participation in running. Note for the written asking for her to be able to complete the walk portion instead of the running. Follow up as needed. Radiology studies and anatomy of the knee reviewed. Patient verbalized understanding and agreement to our treatment plan. All of her questions were answered to her satifaction. ND CUTTER documented in this encounter Plan of Treatment Not on filedocumented as of this encounter Visit Diagnoses Diagnosis Patellofemoral arthralgia of both knees - Primary Unspecified disorder of lower leg joint Bilateral knee pain Pain in joint, lower leg documented in this encounter Care Teams High School Academic Coach Relationship Specialty Start Date End Date Needs Pcp, Assignment PCP - General 08/12/14 [place] [address] documented as of this encounter
--- OUTSIDE RECORDS SUMMARY | 2022-03-23 17:30 | XMS_ITS | Encounter Summary ---
:1980 Author [facility] Address [address], [place] [address] Care Team Providers Name Role Phone Needs Pcp, Assignment Primary Care Provider Reason for Visit Reason Comments Knee Pain or Injury Encounter Details Date Type Department Care Team Description 05/14/2017 Office Visit Elizabeth Maynard, Patellofemo ral disorders, left knee (Primary Dx); Orthopedics [facility] Patellofemoral disorder, right [address] [place] [address] [place], [place] [phone] [address] Social History Tobacco Use Types Packs/Day Years Used Date Smoking Tobacco: Never Smokeless Tobacco: Never Alcohol Use Standard Drinks/Week Comments Yes 1 (1 standard drink = 0.6 oz pure alcoho l) Alcoholic Drinks/day: Sex Assigned at Date Recorded Not on file documented as of this encounter Progress Notes Elizabeth Oswald PA-C - 05/14/2017 9:51 AM CST NAME: SHAMIR NOLASCO MR#: [id number] CSN: [id number] AUTHENTICATING CLINICIAN: Elizabeth Oswald PA-C CONFIRM #: [id number] LOC: 511 CLINIC PROGRESS NOTE DATE OF VISIT: 05/14/2017 : 1980 REASON FOR VISIT: Followup of her bilateral knee pain. HPI: The patient is a 37-year-old female, who is known to my practice, who comes in today for her bilateral knee pain. I have seen her in the past. The patient has patellofemoral arthralgia of the knee, which is exacerbated with lots of running. She is in the and has been doing the walk test because the run test is too painful. She notes that she is able to do a lot of low-impact exercises but when she does any squatting, kneeling, running, or any long-term pounding on her knees she has quite a bit of discomfort. PAST MEDICAL HISTORY: Reviewed per my previous note, unchanged. PAST SURGICAL HISTORY: Reviewed per my previous note, unchanged. FAMILY HISTORY: Reviewed per my previous note, unchanged. SOCIAL HISTORY: Reviewed per my previous note, unchanged. PAST SURGICAL HISTORY: Reviewed per my previous note, unchanged. MEDICATIONS: Reviewed per my previous note, unchanged. ALLERGIES: Reviewed per my previous note, unchanged. PHYSICAL EXAM: BILATERAL LOWER EXTREMITIES: Reveals bilateral knees show no effusion or ecchymosis, some tendernessover the patellofemoral joint. Full active range of motion with slight crepitus in patellofemoral joint. No ligamentous instability with valgus and varus stress tests and anterior posterior drawer and Mathieu's. Neurovascular exam is intact distally. IMAGING: X-rays were reviewed. IMPRESSION: Bilateral patellofemoral arthralgia induced by running. PLAN: Note was written for the excusing her from doing the run test. She can do the walk test forher training. Follow up with me as needed. She verbalized understanding. All her questions were answered. EGS:MEDQ C: CONFIRM #: [id number] ER [facility] Elizabeth Oswald PA-C - 05/14/2017 9:20 AM CST May 14, 2017 RE: Shamir Nolasco : 1980 To Whom It May Concern: Shamir Nolasco has been treated by me in my clinic for bilateral knee pain and was recently seen on 05/14/17. She has chronic patellofemoral syndrome with pain exacerbated by long-distance running. Ihave recommended that she avoid all long distance running activities as this significantly impacts and exacerbates her symptoms. She is able to walk and do other cardiovascular exercises without pain, and she may continue to do so. If there are any questions or concerns, please do not hesitate to call me. Sincerely, Elizabeth Oswald PA-C [facility] Department of Orthopedics [facility] documented in this encounter Plan of Treatment Not on filedocumented as of this encounter Visit Diagnoses Diagnosis Patellofemoral disorders, left knee - Pr imary Patellofemoral disorder, right documented in this encounter Care Teams Beer Brewer Relationship Specialty Start Date End Date Needs Pcp, Assignment PCP - General 08/12/14 [place] [address] documented as of this encounter
--- OUTSIDE RECORDS SUMMARY | 2022-03-23 17:30 | XMS_ITS | Encounter Summary ---
:1980 Author Organization [facility] Address [address] [address] Care Team Providers Name Role Phone Needs Pcp, Assignment Primary Care Provider Reason for Visit Procedure/Equipment (Routine) - Incomplete Specialty Diagnoses / Procedures Referred By Contact Refer red To Contact Procedures Provider, Foreign Images Foreign Image(S) US Breast [address] [place] [address] Referral ID Status Reason Start Date Expiration Date Visits V isits Requested Authorized [id number] Incomplete 11/02/2020 02/01/2022 1 1 Encounter Details Date Type Department Care Team Description 03/25/2018 Ancillary Procedure [facility]iology PACS Provider, [address] [address] [address] [place] [address] Social History Tobacco Use Types Packs/Day Years [...] Date/Time Associated Diagnosis Comme nts FOREIGN IMAGE(S) US Routine 03/25/2018 2:00 PM Re sults for this BREAST CROWN PRESSER procedure are i n the results section. documented in this encounter Results Foreign Image(S) US Breast (03/25/2018 2:00 PM CROWN PRESSER) Specimen (Source) Anatomical Location Collection Method / [...] on filedocumented in this encounter Care Teams Publicity Manager Relationship Specialty Start Date End Date Needs Pcp, Assignment PCP - General 08/12/14 [place] [address] documented as of this encounter
--- OUTSIDE RECORDS SUMMARY | 2022-03-23 17:30 | XMS_ITS | Encounter Summary ---
:1980 Author Organization [facility] Address [address] [place] [address] Care Team Providers Name Role Phone Needs Pcp, Assignment Primary Care Provider Encounter Details Date Type Department Care Team Description 08/12/2014 Imaging [place] [facility] Fatigue [address] [place] [address] Social History Tobacco Use Types Packs/Day Years Used Date Smoking Tobacco: Never Assessed Sex Assigned at Date Recorded Not on file documented as of this encounter Plan of Treatment Not on filedocumented as of this encounter Procedures Procedure Name Priority Date/Time Associated Diagnosis Comme nts XR CHEST 2 VIEWS Routine 08/12/2014 11:00 AM Fatigue Resu lts for this CDT procedure are i n the results section. documented in this encounter Results XR Chest 2 Views (08/12/2014 11:00 AM CDT) Anatomical Region Laterality Modality Chest, Lung Other Specimen (Source) Anatomical Location Collection Method / Collectio n Time Received Time / Laterality Volume Impressions 08/12/2014 11:09 AM CDT IMPRESSION: The lungs are free of acute process. Narrative 08/12/2014 11:09 AM CDT COMPARISON: 06/24/2013. FINDINGS: The heart size and pulmonary v ascularity are within normal limits. The lungs and pleural spaces are clear. There are postsurgical changes in the lower cervical spine region with hardware redemonstrated. Procedure Note Floyd Cadena MD - 10/01/2015For matting of this note might be different from the original. COMPARISON: 06/24/2013. FINDINGS: The heart size and pulmonary v ascularity are within normal limits. The lungs and pleural spaces are clear. There are postsurgical changes in the lower cervical spine region with hardware redemonstrated. IMPRESSION IMPRESSION: The lungs are free of acute process. Mecca Pugh MD RAD GD documented in this encounter Visit Diagnoses Diagnosis Fatigue Other malaise and fatigue documented in this encounter Care Teams Hazardous Materials Handler Relationship Specialty Start Date End Date Needs Pcp, Assignment PCP - General 08/12/14 [place] [address] documented as of this encounter
--- OUTSIDE RECORDS SUMMARY | 2022-03-23 17:30 | XMS_ITS | Encounter Summary ---
:1980 Author Organization [facility] Address [address] [place] [address] Care Team Providers Name Role Phone Needs Pcp, Assignment Primary Care Provider Encounter Details Date Type Department Care Team Description 08/20/2014 E-Visit [facility] Adolfo Russ MD Dx: Acute maxillary Medicine [address] sinusitis, recurrence [address] not specified ([place] [address] [place], [place] Dx) [phone] (Wo rk) Social History Tobacco Use Types Packs/Day Years Used Date Smoking Tobacco: Never Assessed Sex Assigned at Date Recorded Not on file documented as of this encounter Nursing Notes Molly Jimenez RN - 08/22/2014 8:[address] Russ to advise-see MRI results from 08/19 documented in this encounter Miscellaneous Notes Patient Email (Converted) - Rg Castro Provider - 08/22/2014 11:14 AM CDT Subject: RE: E-Visit Submission: Question or update from a visit within the past 7 days: Free From User: MECCA RUSS, Augmentin 1 tab twice a day for 10 days was faxed you need to take OTC probiotics daily for one month during and after you taking the antibiotics the mucosal thickening was minium, so your [place] also is related to migraine, we can discuss on the treatment if not getting better christopher russ ----- Message ----- From: SHAMIR NOLASCO Sent: 08/20/2014 9:19 PM CDT To: Mecca Russ MD Subject: E-Visit Submission: Question or update from a visit within the past 7 days: Free E-Visit Submission: Question or update from a visit within the past 7 days: Free Question: We would be happy to help you, please let us know what condition this follow up message is regarding. Answer: MRI Question: When was your last appointment for this condition with your doctor? Answer: Less than 7 days ago Question: How may we help you? Answer: I'd like to g set an antibiotic for the sinus infection seen on MRI. Thanks. Question: If your doctor would like to prescribe a medication for you, please provide the name and the location or address of the pharmacy where you would like to sampler pickup your medication. Answer: Josseline BARRERA ([facility]) Question: In case we need to call you, please provide a phone number: Answer: [phone] NE GEOLOGIST documented in this encounter Plan of Treatment Not on filedocumented as of this encounter Visit Diagnoses Diagnosis Acute maxillary sinusitis, recurrence no t specified - Primary documented in this encounter Care Teams Retail Key Holder Relationship Specialty Start Date End Date Needs Pcp, Assignment PCP - General 08/12/14 [place] [address] documented as of this encounter
--- OUTSIDE RECORDS SUMMARY | 2022-03-23 17:30 | XMS_ITS | Encounter Summary ---
:1980 Author Organization [facility] Address [address], [place] [address] Care Team Providers Name Role Phone Needs Pcp, Assignment Primary Care Provider Reason for Visit Reason Onset Date Comments INFECTION, YEAST 12/02/2016 Encounter Details Date Type Department Care Team Description 12/02/2016 Telephone [facility] Sonja Dalton, INFECTION, YEAST Services-COMMISSIONING MANAGER FIRE PREVENTION CAPTAIN, HAND PLEATER [address] [facility], [id number] [place] [address] [address] [place] [phone] (Wo rk) Social History Tobacco Use Types Packs/Day Years Used Date Smoking Tobacco: Never Smokeless Tobacco: Never Alcohol Use Standard Drinks/Week Comments Yes 1 (1 standard drink = 0.6 oz pure alcoho l) Alcoholic Drinks/day: Sex Assigned at Date Recorded Not on file documented as of this encounter Nursing Notes Jesse Russell RN - 12/02/2016 11:17 AM CDT Lacey Nolasco is a 36 y.o. old woman with the following symptoms. If two or more symptoms present, continue with standing order: Vaginal discharge, thick whitish in color, Vaginal itching and Vaginal redness and/or burning Patient has the following serious or complicating symptoms present. If any of the following symptomspresent, patient should be scheduled for a clinician visit: none : No Allergies: Zolpidem tartrate Assessment: Yeast vaginitis Plan: Fluconazole (Diflucan) 150mg, one by mouth now, may repeat in 3-5 days if symptoms persist. If no improvement within 5 days, schedule appointment with clinician. documented in this encounter Plan of Treatment Not on filedocumented as of this encounter Visit Diagnoses Diagnosis Yeast vaginitis Candidiasis of vulva and vagina documented in this encounter Care Teams Tree Scout Relationship Specialty Start Date End Date Needs Pcp, Assignment PCP - General 08/12/14 [place] [address] documented as of this encounter
--- OUTSIDE RECORDS SUMMARY | 2022-03-23 17:30 | XMS_ITS | Encounter Summary ---
:1980 Author Organization [facility] Address [address] [address] Care Team Providers Name Role Phone Needs Pcp, Assignment Primary Care Provider Reason for Visit Procedure/Equipment (Routine) - Incomplete Specialty Diagnoses / Procedures Referred By Contact Refer red To Contact Procedures Provider, Foreign Images Foreign Image(S) Mammogram [address] [place] [address] Referral ID Status Reason Start Date Expiration Date Visits V isits Requested Authorized [id number] Incomplete 11/02/2020 02/01/2022 1 1 Encounter Details Date Type Department Care Team Description 03/25/2018 Ancillary Procedure [facility] PACS Provider, [address] [place] [address] [address] [place] [address] Social History Tobacco Use Types Packs/Day Years [...] Associated Diagnosis Comme nts FOREIGN IMAGE(S) Routine 03/25/2018 2:05 PM Resul ts for this MAMMOGRAM PERSONALIZED LIVING ASSISTANT procedure are i n the results section. documented in this encounter Results Foreign Image(S) Mammogram (03/25/2018 2:05 PM PERSONALIZED LIVING ASSISTANT) Specimen (Source) Anatomical Location Collection Method / [...] on filedocumented in this encounter Care Teams Preschool Assistant Director Relationship Specialty Start Date End Date Needs Pcp, Assignment PCP - General 08/12/14 [place] [address] documented as of this encounter
--- OUTSIDE RECORDS SUMMARY | 2022-03-23 17:30 | XMS_ITS | Encounter Summary ---
:1980 Author Organization [facility] Address [address] [address] Care Team Providers Name Role Phone Needs Pcp, Assignment Primary Care Provider Encounter Details Date Type Department Care Team Description 02/11/2020 Notes/Orders [place] [facility] Needs Pcp, Encounter for Practice Assignment screening for other [address] ROSS viral diseases [place], [place] [address] CLINIC [phone] [place] [address] Social History Tobacco Use Types Packs/Day Years Used Date Smoking Tobacco: Never Smokeless Tobacco: Never Alcohol Use Standard Drinks/Week Comments Yes 1 (1 standard drink = 0.6 oz pure alcoho l) Alcoholic Drinks/day: Sex Assigned at Date Recorded Not on file documented as of this encounter Plan of Treatment Not on filedocumented as of this encounter Results Asymptomatic - 2019 Novel Coronavirus (COVID-19) (02/12/2020 8:32 AM CDT) [facility] Method Time Signature SARS Not Detected Not Detected 02/15/2020 HELIX CORONAVIRUS 2 8:21 AM BEHAVIORAL SCIENTIST RNA IN RESPIRATORY SPECIMEN BY NATALYA W Comment: Results [...] for the duration of time that the [place] of the [facility] declares circumstances exist j ustifying the authorization of the emerg ency use of in vitro diagnostic tests for detection of SARS-CoV-2 virus and/or diagnosis of COVID-19 infection under section 564(b)(1) of the Act, 21 U.S.C. 360bb b-3(b)(1), unless the authorization is t erminated or revoked sooner. To learn more about this test, go to [facility] [email or web address] Performed by: RICARDO Smalls [id number], CLIA [id number], [address] [place] [address] Guest Room Inspector: Andres Diaz, Ph D, FAC, FFSC ([facility]) Specimen Anatomical Collection Method Collection Time Receive d Time (Source) Location / / Volume Laterality Swab (Source Non-blood 02/12/2020 8:32 AM 0 Required) Collection / CDT 12:56 PM CDT Unknown Assignment Needs Pcp LAB_1 Performing Organization Address City/State/ZIP Code Phon e Number [place] [address] [place] [address] documented in this encounter Visit Diagnoses Diagnosis Encounter for screening for other viral diseases documented in this encounter Care Teams Fuselage Framer Relationship Specialty Start Date End Date Needs Pcp, Assignment PCP - General 08/12/14 [place] [address] documented as of this encounter
--- OUTSIDE RECORDS SUMMARY | 2022-03-23 17:30 | XMS_ITS | Encounter Summary ---
:1980 Author Organization [facility] Address [address] [place] [address] Care Team Providers Name Role Phone Needs Pcp, Assignment Primary Care Provider Encounter Details Date Type Department Care Team Description 08/19/2014 Imaging [place] [facility] MRI Headache(784.0); [address] [place] [address] Social History Tobacco Use Types Packs/Day Years Used Date Smoking Tobacco: Never Assessed Sex Assigned at Date Recorded Not on file documented as of this encounter Plan of Treatment Not on filedocumented as of this encounter Procedures Procedure Name Priority Date/Time Associated Diagnosis Comme nts MR BRAIN W/WO IV Routine 08/19/2014 1:37 PM Headache(784 .0) Results for this CONT CDT Double vision procedure are in the results section. documented in this encounter Results MR Brain W/WO IV Cont (08/19/2014 1:37 PM CDT) Anatomical Region Laterality Modality Head Other Specimen (Source) Anatomical Location Collection Method / Collectio n Time Received Time / Laterality Volume Impressions 08/19/2014 2:34 PM CDT IMPRESSION: ??Negative MRI of the head with and without IV contrast apart from minimal mucosal thickening within the ethmoid sinuses and a few scattered nonspecific subcortical FLAIR hyperintensities wh ich may be seen with migraine etc. Narrative 08/19/2014 2:34 PM CDT INDICATION: [place], dobule vision ?? TECHNIQUE: ??MRI of the head with and wi thout contrast using cranial nerve III through protocol, 9 mL GADOBUTROL 7.5 MMOL/7.5 ML (1 MMOL/ML) INTRAVENOUS SOLUTION. COMPARISON: None. FINDINGS: ??Normal diffusion. There are a few scattered subcortical FLAIR hyperintensities. The ventricular system, sulci, and cisterns are normal caliber and configuration. Normal flow voids within the major intracranial vessels. Normal enha ncement. The visualized calvarium, paranasal sinuses, skull base, and upper cervical spine are unremarkable apart from minimal mucosal thickening within the ethmoid sinuses. Procedure Note Akanksha Thomas MD - 10/01/2015Formattin g of this note might be different from the original. INDICATION: [place], dobule vision TECHNIQUE: MRI of the head with and with out contrast using cranial nerve III through protocol, 9 mL GADOBUTROL 7.5 MMOL/7.5 ML (1 MMOL/ML) INTRAVENOUS SOLUTION. COMPARISON: None. FINDINGS: Normal diffusion. There are a few scattered subcortical FLAIR hyperintensities. The ventricular system, sulci, and cisterns are normal caliber and configuration. Normal flow voids within the major intracranial vessels. Normal enhancement. The visualized calvarium, paranasal sinuses, skull base, and upper cervical spine are unremarkable apart from minimal mucosal thickening within the ethmoid sinuses. IMPRESSION IMPRESSION: Negative MRI of the head wit h and without IV contrast apart from minimal mucosal thickening within the ethmoid sinuses and a few scattered nonspecific subcortical FLAIR hyperintensities which may be seen with migraine etc. Mecca Pugh MD RAD MRI documented in this encounter Visit Diagnoses Diagnosis Headache(784.0) Headache Double vision Diplopia documented in this encounter Care Teams Artificial Flowers Dyer Relationship Specialty Start Date End Date Needs Pcp, Assignment PCP - General 08/12/14 [place] [address] documented as of this encounter
--- OUTSIDE RECORDS SUMMARY | 2022-03-23 17:30 | XMS_ITS | Encounter Summary ---
:1980 Author Organization [facility] Address [address], [place] [address] Care Team Providers Name Role Phone Needs Pcp, Assignment Primary Care Provider Encounter Details Date Type Department Care Team Description 08/03/2015 Notes/Orders CODING DEPT ONLY 5050 Needs Pcp, Assignment [facility]ILY [facility] [place] [facility] [address] [place] [address] Social History Tobacco Use Types Packs/Day Years Used Date Smoking Tobacco: Never Assessed Sex Assigned at Date Recorded Not on file documented as of this encounter Plan of Treatment Not on filedocumented as of this encounter Visit Diagnoses Not on filedocumented in this encounter Care Teams Electronic Sales And Service Technician Relationship Specialty Start Date End Date Needs Pcp, Assignment PCP - General 08/12/14 [place] [address] documented as of this encounter
--- OUTSIDE RECORDS SUMMARY | 2022-03-23 17:30 | XMS_ITS | Encounter Summary ---
:1980 Author Organization [facility] Address [address] [place] [address] Care Team Providers Name Role Phone Needs Pcp, Assignment Primary Care Provider Reason for Visit Reason Comments Paperwork Encounter Details Date Type Department Care Team Description 05/14/2017 Telephone [place] [facility] Elizabeth Oswald PA-C Paperwork [address] [address] [place] [address] [place] [address] [phone] (Wo rk) Social History Tobacco Use Types Packs/Day Years Used Date Smoking Tobacco: Never Smokeless Tobacco: Never Alcohol Use Standard Drinks/Week Comments Yes 1 (1 standard drink = 0.6 oz pure alcoho l) Alcoholic Drinks/day: Sex Assigned at Date Recorded Not on file documented as of this encounter Nursing Notes Elizabeth Oswald PA-C - 05/14/2017 11:49 AM CST Formed filled out and faxed. Patient verbalized understanding and agreement to our treatment plan. All of her questions were answered to her satisfaction. Laureen Whitfield RN - 05/14/2017 11:01 AM CST Patient called and is faxing a Medical Documentation Restriction Form from the that needs to be completed and returned. She states there are 2 specific areas that need to be addressed: The duration (in weeks) of exemption for physical running, and should read as no duty restrictions. She can be reached at [phone]. AGE MACHINE OPERATOR documented in this encounter Plan of Treatment Not on filedocumented as of this encounter Visit Diagnoses Not on filedocumented in this encounter Care Teams Cut Off Saw Tender Metal Relationship Specialty Start Date End Date Needs Pcp, Assignment PCP - General 08/12/14 [place] [address] documented as of this encounter
--- OUTSIDE RECORDS SUMMARY | 2022-03-23 17:30 | XMS_ITS | Encounter Summary ---
:1980 Author Organization [facility] Address [address] [place] [address] Care Team Providers Name Role Phone Needs Pcp, Assignment Primary Care Provider Encounter Details Date Type Department Care Team Description 01/26/[address] [facility], Drive-Up Acute nonintractable [address] headache, [place] [address] headache type [phone] Social History Tobacco Use Types Packs/Day Years [...] Associated Diagnosis Comme nts 2019 NOVEL Routine 01/26/2020 9:23 Acute nonintractable Resu lts for this CORONAVIRUS AM CDT headache, unspecified proced ure are in headache type the results section. documented in this encounter Results 2019 Novel Coronavirus (COVID-19) (01/26/2020 9:23 AM CDT) [facility] Method Time Signature SARS Not Detected Not Detected 01/28/2020 HELIX CORONAVIRUS 2 3:20 PM CDT RNA IN RESPIRATORY SPECIMEN BY NATALYA W [...] for the duration of time that the [place] of the [facility] declares circumstances exist j ustifying the authorization of the emerg ency use of in vitro diagnostic tests for detection of SARS-CoV-2 virus and/or diagnosis of COVID-19 infection under section 564(b)(1) of the Act, 21 U.S.C. 360bb b-3(b)(1), unless the authorization is t erminated or revoked sooner. To learn more about this test, go to [facility] [email or web address] Performed by: RICARDO Smalls [id number], CLIA [id number], [address] [place] [address] Special Needs Caregiver: Andres Diaz, Ph D, [facility], [place] ([facility]) Specimen Anatomical Collection Method Collection Time Receive d Time (Source) Location / / Volume Laterality Swab (Source Non-blood 01/26/2020 9:23 AM 0 Required) Collection / CDT 10:52 AM CDT Unknown Becky Danielle PA-C LAB_1 Performing Organization Address City/State/ZIP Code Phon e Number [place] [address] [place] [address] documented in this encounter Visit Diagnoses Diagnosis Acute nonintractable headache, unspecifi ed headache type documented in this encounter Additional Health Concerns Infection Onset Date Last Indicated Resolved Time R/O COVID19 01/26/2020 01/26/2020 01/28/2020 3:24 PM CDT documented as of this encounter Care Teams Chemical Processing Supervisor Relationship Specialty Start Date End Date Needs Pcp, Assignment PCP - General 08/12/14 [place] [address] documented as of this encounter
--- OUTSIDE RECORDS SUMMARY | 2022-03-23 17:30 | XMS_ITS | Encounter Summary ---
:1980 Author Organization [facility] Address [address] [place] [address] Care Team Providers Name Role Phone Needs Pcp, Assignment Primary Care Provider Encounter Details Date Type Department Care Team Description 02/19/2020 Notes/Orders [facility] Needs Pcp, Contac t with or Up Assignment exposure to viral [facility] [address] [facility] disease [place], [place] CLINIC [address] [place], [place] [phone] [address] Social History Tobacco Use Types Packs/Day Years [...] 2019 Novel Coronavirus (COVID-19) (02/20/2020 9:42 AM EDUCATIONAL AIDE) [facility] Method Time Signature SARS Not Detected Not Detected 02/23/2020 HELIX CORONAVIRUS 2 11:25 PM RNA IN EDUCATIONAL AIDE RESPIRATORY SPECIMEN BY NATALYA W Comment: Results [...] for the duration of time that the [place] of the [facility] declares circumstances exist j ustifying the authorization of the emerg ency use of in vitro diagnostic tests for detection of SARS-CoV-2 virus and/or diagnosis of COVID-19 infection under section 564(b)(1) of the Act, 21 U.S.C. 360bb b-3(b)(1), unless the authorization is t erminated or revoked sooner. To learn more about this test, go to [facility] [email or web address] Performed by: RICARDO Smalls [id number], CLIA [id number], [address] [place] [address] Chemical Engineer: Andres Diza, Ph D, FAC, FFSC ([facility]) Specimen Anatomical Collection Method Collection Time Receive d Time (Source) Location / / Volume Laterality Swab (Source Non-blood 02/20/2020 9:42 AM 0 Required) Collection / EDUCATIONAL AIDE 12:39 PM EDUCATIONAL AIDE Unknown Assignment Needs Pcp LAB_1 Performing Organization Address City/State/ZIP Code Phon e Number [place] [address] [facility] [place] [address] documented in this encounter Visit Diagnoses Diagnosis Contact with or exposure to viral diseas e Contact with or exposure to other viral diseases documented in this encounter Care Teams Metal Door Assembler Relationship Specialty Start Date End Date Needs Pcp, Assignment PCP - General 08/12/14 [place] [address] documented as of this encounter
--- OUTSIDE RECORDS SUMMARY | 2022-03-23 17:30 | XMS_ITS | Encounter Summary ---
:1980 [facility] Address [address] [place] [address] Care Team Providers Name Role Phone Needs Pcp, Assignment Primary Care Provider Reason for Visit Reason Comments Return To Work Encounter Details Date Type Department Care Team Description 04/21/2015 Telephone [facility] Elizabeth Oswald PA-C Return To Work [id number] [facility] [id number] [place] [address] [place], [place] [address] (Wo rk) Social History Tobacco Use Types Packs/Day Years Used Date Smoking Tobacco: Never Assessed Sex Assigned at Date Recorded Not on file documented as of this encounter Nursing Notes Elizabeth Oswald PA-C - 04/21/2015 1:54 PM CST Patient needed a more specific note for her guard duty. Letter written, in chart. MOTIVE CRANE OPERATOR documented in this encounter Miscellaneous Notes Letter - Elizabeth Oswald PA-C - 04/21/2015 12:00 AM CST Images from the original note were not included. [facility] [address] [place] [address] [email or web address] To Whom It May Concern, Lacey Nolasco was seen in my clinic for bilateral knee pain. She has chronic patellofemoral syndrome with pain exacerbated by long distance running. I recommended that she avoid all long distance running activities as this significant impacts her symptoms. She is able to walk and do other cardiovasc ular exercises without pain. Sincerely, Elizabeth Oswald PA-C 04/21/2015 MOTIVE CRANE OPERATOR Letter - Elizabeth Oswald PA-C - 04/21/2015 12:00 AM CST Images from the original note were not included. [facility] [address] [place] [address] [email or web address] To Whom It May Concern, Lacye Nolasco was seen in my clinic for bilateral knee pain. She has chronic patellofemoral syndrome with pain exacerbated by running. I recommended that she avoid all running activities as this significant impacts her symptoms. She is able to walk and do other cardiovascular exercises without pain, therefore she is able to do the required walk test for her personal training testing. Sincerely, Elizabeth Oswald PA-C 04/21/2015 MOTIVE CRANE OPERATOR documented in this encounter Plan of Treatment Not on filedocumented as of this encounter Visit Diagnoses Not on filedocumented in this encounter Care Teams Supervisory Examiner Relationship Specialty Start Date End Date Needs Pcp, Assignment PCP - General 08/12/14 [place] [address] documented as of this encounter
--- OUTSIDE RECORDS SUMMARY | 2022-03-23 17:30 | XMS_ITS | Encounter Summary ---
:1980 Author Organization [facility] Address [address] [place] [address] Care Team Providers Name Role Phone Needs Pcp, Assignment Primary Care Provider Encounter Details Date Type Department Care Team Description 04/18/2015 Imaging [place] [facility] Bilateral knee pain [address] [place] [address] Social History Tobacco Use Types Packs/Day Years Used Date Smoking Tobacco: Never Assessed Sex Assigned at Date Recorded Not on file documented as of this encounter Plan of Treatment Not on filedocumented as of this encounter Procedures Procedure Name Priority Date/Time Associated Diagnosis Comme nts XR KNEE LT 3 VIEWS Routine 04/18/2015 10:16 AM Bilateral knee pain Results for this LOAN EXAMINER procedure are i n the results section. documented in this encounter Results XR Knee Rt 3 Views (04/18/2015 10:17 AM LOAN EXAMINER) Anatomical Region Laterality Modality Lower Extremity, Knee Other Specimen (Source) Anatomical Location Collection Method / Collectio n Time Received Time / Laterality Volume Narrative 04/18/2015 10:41 AM LOAN EXAMINER COMPARISON: ??None. FINDINGS: ??Bilateral knee radiographs w ere obtained and demonstrate some early minor lateral patellar tilting bilaterally. No other bone or joint abnormalities are noted. Procedure Note Carlos Tay MD - 10/01/2015Formatti ng of this note might be different from the original. COMPARISON: None. FINDINGS: Bilateral knee radiographs wer e obtained and demonstrate some early minor lateral patellar tilting bilaterally. No other bone or joint abnormalities are noted. Elizabeth Oswald PA-C RAD GD XR Knee Lt 3 Views (04/18/2015 10:16 AM LOAN EXAMINER) Anatomical Region Laterality Modality Lower Extremity, Knee Other Specimen (Source) Anatomical Location Collection Method / Collectio n Time Received Time / Laterality Volume Narrative 04/18/2015 10:41 AM LOAN EXAMINER COMPARISON: ??None. FINDINGS: ??Bilateral knee radiographs w ere obtained and demonstrate some early minor lateral patellar tilting bilaterally. No other bone or joint abnormalities are noted. Procedure Note Carlos Tay MD - 10/01/2015Formatti ng of this note might be different from the original. COMPARISON: None. FINDINGS: Bilateral knee radiographs wer e obtained and demonstrate some early minor lateral patellar tilting bilaterally. No other bone or joint abnormalities are noted. Elizabeth sOwald PA-C RAD GD documented in this encounter Visit Diagnoses Diagnosis Bilateral knee pain Pain in joint, lower leg Bilateral knee pain Pain in joint, lower leg documented in this encounter Care Teams Transportation Logistics Internship Relationship Specialty Start Date End Date Needs Pcp, Assignment PCP - General 08/12/14 [place] [address] documented as of this encounter
--- OUTSIDE RECORDS SUMMARY | 2022-03-23 17:30 | XMS_ITS | Encounter Summary ---
:1980 Author Organization [facility] Address [address], [place] [address] Care Team Providers Name Role Phone Needs Pcp, Assignment Primary Care Provider Encounter Details Date Type Department Care Team Description 08/22/2014 Notes/Orders [place] [facility] [place], Adolfo bond MD Medicine [address] [address] [place], [place] [phone] (Wo rk) Social History Tobacco Use Types Packs/Day Years Used Date Smoking Tobacco: Never Assessed Sex Assigned at Date Recorded Not on file documented as of this encounter Plan of Treatment Not on filedocumented as of this encounter Visit Diagnoses Not on filedocumented in this encounter Care Teams C 40A Crew Chief Relationship Specialty Start Date End Date Needs Pcp, Assignment PCP - General 08/12/14 [place], [place] [id number] documented as of this encounter
--- OUTSIDE RECORDS SUMMARY | 2022-03-23 17:30 | XMS_ITS | Encounter Summary ---
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 Rx for Diflucan sent to requested pharmacy. Dr. Delgado documented in this encounter Plan of Treatment Not on filedocumented as of this encounter Visit Diagnoses Diagnosis Vaginal itching - Primary Pruritus of genital organs documented in this encounter Care Teams Forging Dies Final Finisher Relationship Specialty Start Date End Date Needs Pcp, Assignment PCP - General 08/12/14 [place] [address] documented as of this encounter
--- OUTSIDE RECORDS SUMMARY | 2022-03-23 17:30 | XMS_ITS | Encounter Summary ---
:1980 Author Organization [facility] Address [address] [place] [address] Care Team Providers Name Role Phone Needs Pcp, Assignment Primary Care Provider Encounter Details Date Type Department Care Team Description 04/18/2015 Imaging [facility] Bilateral knee pain [address] [place] [address] Social History Tobacco Use Types Packs/Day Years Used Date Smoking Tobacco: Never Assessed Sex Assigned at Date Recorded Not on file documented as of this encounter Plan of Treatment Not on filedocumented as of this encounter Procedures Procedure Name Priority Date/Time Associated Diagnosis Comme nts XR KNEE RT 3 VIEWS Routine 04/18/2015 10:17 AM Bilateral knee pain Results for this ROLLWAY WORKER procedure are i n the results section. documented in this encounter Results XR Knee Rt 3 Views (04/18/2015 10:17 AM ROLLWAY WORKER) Anatomical Region Laterality Modality Lower Extremity, Knee Other Specimen (Source) Anatomical Location Collection Method / Collectio n Time Received Time / Laterality Volume Narrative 04/18/2015 10:41 AM ROLLWAY WORKER COMPARISON: ??None. FINDINGS: ??Bilateral knee radiographs w [...] Knee Lt 3 Views (04/18/2015 10:16 AM ROLLWAY WORKER) Anatomical Region Laterality Modality Lower Extremity, Knee Other Specimen (Source) Anatomical Location Collection Method / Collectio n Time Received Time / Laterality Volume Narrative 04/18/2015 10:41 AM ROLLWAY WORKER COMPARISON: ??None. FINDINGS: ??Bilateral knee radiographs w [...] are noted. Elizabeth Oswald PA-C RAD GD documented in this encounter Visit Diagnoses Diagnosis Bilateral knee pain Pain in joint, lower leg Bilateral knee pain Pain in joint, lower leg documented in this encounter Care Teams Regional Manager Relationship Specialty Start Date End Date Needs Pcp, Assignment PCP - General 08/12/14 [place] [address] documented as of this encounter
--- OUTSIDE RECORDS SUMMARY | 2022-03-23 17:30 | XMS_ITS | Encounter Summary ---
:1980 Author Organization formerly [facility] Address [address] [place] [address] Care Team Providers Name Role Phone Needs Pcp, Assignment Primary Care Provider Reason for Visit Reason Onset Date Comments Video Visit 01/25/2020 Encounter Details Date Type Department Care Team Description 01/25/2020 Telemedicine formerly [facility] Virtual Becky Danielle nonintractable Primary Care EFREM Naylor headache, unspecified [address] [place] [address] FESTUS DOCKERY headache type (Primary [place], [place] [address]) [address] [address] [phone] Social History Tobacco Use Types Packs/Day Years Used Date Smoking Tobacco: Never Smokeless Tobacco: Never Alcohol Use Standard Drinks/Week Comments Yes 1 (1 standard drink = 0.6 oz pure alcoho l) Alcoholic Drinks/day: Sex Assigned at Date Recorded Not on file documented as of this encounter Progress Notes Becky Danielle PA-C - 01/25/2020 3:00 PM CDT Today's visit with Lacey was conducted as a scheduled video visit. Subjective: Lacey Nolasco is a 39 y.o. female presenting requesting Covid testing. Reports she is having a horrible Romero and some GI issues - N/V and diarrhea. Symptoms started last night. She did have LGF ~ 99. She is traveling this weekend to [place] with some friends so wants to be safe. Patient type for lab testing: All other patients eligible for testing (Video Visit Required in the Ambulatory setting & Comment Required for Inpatient setting) Risk Factors: Chronic Lung Disease/Asthma In the last 14 days have you had close contact with a person known to have COVID-19 or been instructed to self-isolate? No Symptom onset: 1 days Fever >100: No Cough: No Shortness of Breath: No Sore Throat: No New Loss of Smell or Taste: Yes Objective: Does not sound or appear short of breath. Able to speak in full sentences. Not Coughing. Assessment/Plan: There are no diagnoses linked to this encounter. Disposition Home Care, Respiratory site for COVID-19 testing only and Discussed importance of fluids and hydration when having GI symptoms. Location of clinician: home Location of patient: home Billing based on: Complexity. Risk Factors: Chronic Lung Disease/Asthma documented in this encounter Plan of Treatment Not on filedocumented as of this encounter Results 2019 Novel Coronavirus (COVID-19) (01/26/2020 9:23 AM CDT) [facility] gist Method Time Signature SARS Not Detected Not Detected 01/28/2020 HELIX CORONAVIRUS 2 3:20 PM CDT RNA IN RESPIRATORY SPECIMEN BY NATALYA Fried Comment: Results and Interpretation Negative: SARS-CoV-2 not [...] for the duration of time that the Vault Cashier of the [facility] declares circumstances exist j ustifying the authorization of the emerg ency use of in vitro diagnostic tests for detection of SARS-CoV-2 virus and/or diagnosis of COVID-19 infection under section 564(b)(1) of the Act, 21 U.S.C. 360bb b-3(b)(1), unless the authorization is t erminated or revoked sooner. To learn more about this test, go to [employer] [email or web address] Performed by: RICARDO Smalls [id number], CLIA [id number], [address] [place] [address] Lamp Tester And Inspector: Andres Diaz, Ph D, FACMG, FFSC ([facility]) Specimen Anatomical Collection Method Collection Time Receive d Time (Source) Location / / Volume Laterality Swab (Source Non-blood 01/26/2020 9:23 AM 0 Required) Collection / CDT 10:52 AM CDT Unknown Becky Danielle PA-C LAB_1 Performing Organization Address City/State/ZIP Code Phon e Number [place] [address] [place] [address] documented in this encounter Visit Diagnoses Diagnosis Acute nonintractable headache, unspecifi ed headache type - Primary documented in this encounter Care Teams Referral Clerk Relationship Specialty Start Date End Date Needs Pcp, Assignment PCP - General 08/12/14 [place] [address] documented as of this encounter
--- OUTSIDE RECORDS SUMMARY | 2022-03-23 17:30 | XMS_ITS | Encounter Summary ---
:1980 Author Organization [employer] [facility] Address [address], [place] [address] Care Team Providers Name Role Phone Needs Pcp, Assignment Primary Care Provider Reason for Visit Reason Comments Cough Encounter Details Date Type Department Care Team Description 01/11/2016 Office Visit [facility] Internal Mecca Pugh Asthm a with acute exacerbation, unspecified asthma severity (HRC) (Primary Dx); Medicine MD Acute frontal sinusitis, recurrence not specified; [id number] [place] [address] Acute mucoid otitis media of right ear [address] [place] [address] Social History Tobacco Use Types Packs/Day Years Used Date Smoking Tobacco: Never Smokeless Tobacco: Never Alcohol Use Standard Drinks/Week Comments Yes 1 (1 standard drink = 0.6 oz pure alcoho l) Alcoholic Drinks/day: Sex Assigned at Date Recorded Not on file documented as of this encounter Last Filed Vital Signs Vital Sign Reading Time Taken Comments Blood Pressure 108/76 01/11/2016 2:08 PM CDT Pulse 74 01/11/2016 2:08 PM CDT Temperature 37.2 ??C (99 ??F) 01/11/2016 2:08 PM CDT Respiratory Rate - - Oxygen Saturation - - Inhaled Oxygen Concentration - - Weight 88.5 kg (195 lb) 01/11/2016 2:08 PM CDT Height - - Body Mass Index 32.45 06/09/2015 8:29 AM HR ANALYST documented in this encounter Patient Instructions Patient Mecca Krsue MD - 01/11/2016 2:37 PM CDT Images from the original note were not included. Saline Nasal Washes: Care Instructions Your Care Instructions Saline nasal washes help keep the nasal passages open by washing out thick or dried mucus. This simple remedy can help relieve symptoms of allergies, sinusitis, and colds. It also can make the nose feel more comfortable by keeping the mucous membranes moist. You may notice a little burning sensation in your nose the first few times you use the solution, but this usually gets better in a few days. Follow-up care is a castellanos part of your treatment and safety. Be sure to make and go to all appointments, and call your doctor if you are having problems. It's also a good idea to know your test results and keep a list of the medicines you take. How can you care for yourself at home? ?? You can buy premixed saline solution in a squeeze bottle or other sinus rinse products at a drugstore. Read and follow the instructions on the label. ?? You also can make your own saline solution by adding 1 teaspoon of salt and 1 teaspoon of baking soda to 2 cups of distilled water. ?? If you use a homemade solution, pour a small amount into a clean bowl. Using a rubber bulb syringe, squeeze the syringe and place the tip in the salt water. Pull a small amount of the salt water into the syringe by relaxing your hand. ?? Sit down with your head tilted slightly back. Do not lie down. Put the tip of the bulb syringe orthe squeeze bottle a little way into one of your nostrils. Gently drip or squirt a few drops into the nostril. Repeat with the other nostril. Some sneezing and gagging are normal at first. ?? Gently blow your nose. ?? Wipe the syringe or bottle tip clean after each use. ?? Repeat this 2 or 3 times a day. ?? Use nasal washes gently if you have nosebleeds often. When should you call for help? Watch closely for changes in your health, and be sure to contact your doctor if: ?? You often get nosebleeds. ?? You have problems doing the nasal washes. Where can you learn more? 1. Go to [employer]/Sermo or [employer]/LearnZillionrary. 2. Enter B784 in the search box. Current as of: April 05, 2015 Content Version: 109 ?? 4188-0457 [employer]. Sinusitis: Care Instructions Your Care Instructions Sinusitis is an infection of the lining of the sinus cavities in your head. Sinusitis often follows a cold. It causes pain and pressure in your head and face. In most cases, sinusitis gets better on its own in 1 to 2 weeks. But some mild symptoms may last forseveral weeks. Sometimes antibiotics are needed. Follow-up care is a castellanos part of your treatment and safety. Be sure to make and go to all appointments, and call your doctor if you are having problems. It's also a good idea to know your test results and keep a list of the medicines you take. How can you care for yourself at home? ?? Take an onfj-rer-nqifzvi pain medicine, such as acetaminophen (Tylenol), ibuprofen (Advil, Motrin), or naproxen (Aleve). Read and follow all instructions on the label. ?? If the doctor prescribed antibiotics, take them as directed. Do not stop taking them just becauseyou feel better. You need to take the full course of antibiotics. ?? Be careful when taking mylx-mve-bzbbhcb cold or flu medicines and Tylenol at the same time. Many of these medicines have acetaminophen, which is Tylenol. Read the labels to make sure that you are not taking more than the recommended dose. Too much acetaminophen (Tylenol) can be harmful. ?? Breathe warm, moist air from a steamy shower, a hot bath, or a sink filled with hot water. Avoid cold, dry air. Using a humidifier in your home may help. Follow the directions for cleaning the machine. ?? Use saline (saltwater) nasal washes to help keep your nasal passages open and wash out mucus and bacteria. You can buy saline nose drops at a grocery store or drugstore. Or you can make your own at home by adding 1 teaspoon of salt and 1 teaspoon of baking soda to 2 cups of distilled water. If you make your own, fill a bulb syringe with the solution, insert the tip into your nostril, and squeeze gently. Blow your nose. ?? Put a hot, wet towel or a warm gel pack on your face 3 or 4 times a day for 5 to 10 minutes each time. ?? Try a decongestant nasal spray like oxymetazoline (Afrin). Do not use it for more than 3 days in a row. Using it for more than 3 days can make your congestion worse. When should you call for help? Call your doctor now or seek immediate medical care if: ?? You have new or worse swelling or redness in your face or around your eyes. ?? You have a new or higher fever. Watch closely for changes in your health, and be sure to contact your doctor if: ?? You have new or worse facial pain. ?? The mucus from your nose becomes thicker (like pus) or has new blood in it. ?? You are not getting better as expected. Where can you learn more? 1. Go to [employer]/Sermo or [employer]/Phytel. 2. Enter I933 in the search box. Current as of: March 03, 2015 Content Version: 109 ?? [id number] [employer]. Asthma Attack: Care Instructions Your Care Instructions During an asthma attack, the airways swell and narrow. This makes it hard to breathe. Severe asthma attacks can be life-threatening, but you can help prevent them by keeping your asthma under control and treating symptoms before they get bad. Symptoms include being short of breath, having chest tightness, coughing, and wheezing. Noting and treating these symptoms can also help you avoid future trips to the emergency room. The doctor has checked you carefully, but problems can develop later. If you notice any problems or new symptoms, get medical treatment right away. Follow-up care is a castellanos part of your treatment and safety. Be sure to make and go to all appointments, and call your doctor if you are having problems. It's also a good idea to know your test results and keep a list of the medicines you take. How can you care for yourself at home? ?? Follow your asthma action plan to prevent and treat attacks. If you don't have an asthma action plan, work with your doctor to create one. ?? Take your asthma medicines exactly as prescribed. Talk to your doctor right away if you have any questions about how to take them. ?? Use your quick-relief medicine when you have symptoms of an attack. Quick- relief medicine is usually an albuterol inhaler. Some people need to use quick- relief medicine before they exercise. ?? Take your controller medicine every day, not just when you have symptoms. Controller medicine is usually an inhaled corticosteroid. The goal is to prevent problems before they occur. Don't use your controller medicine to treat an attack that has already started. It doesn't work fast enough to help. ?? If your doctor prescribed corticosteroid pills to use during an attack, take them exactly as prescribed. It may take hours for the pills to work, but they may make the episode shorter and help you breathe better. ?? Keep your quick-relief medicine with you at all times. ?? Talk to your doctor before using other medicines. Some medicines, such as aspirin, can cause asthma attacks in some people. ?? If you have a peak flow meter, use it to check how well you are breathing. This can help you predict when an asthma attack is going to occur. Then you can take medicine to prevent the asthma attack or make it less severe. ?? Do not smoke or allow others to smoke around you. Avoid smoky places. Smoking makes asthma worse.If you need help quitting, talk to your doctor about stop- smoking programs and medicines. These can increase your chances of quitting for good. ?? Learn what triggers an asthma attack for you, and avoid the triggers when you can. Common triggers include colds, smoke, air pollution, dust, pollen, mold, pets, cockroaches, stress, and cold air. ?? Avoid colds and the flu. Get a pneumococcal vaccine shot. If you have had one before, ask your doctor if you need a second dose. Get a flu vaccine every fall. If you must be around people with coldsor the flu, wash your hands often. When should you call for help? Call 911 anytime you think you may need emergency care. For example, call if: ?? You have severe trouble breathing. Call your doctor now or seek immediate medical care if: ?? Your symptoms do not get better after you have followed your asthma action plan. ?? You have new or worse trouble breathing. ?? Your coughing and wheezing get worse. ?? You cough up dark brown or bloody mucus (sputum). ?? You have a new or higher fever. Watch closely for changes in your health, and be sure to contact your doctor if: ?? You need to use quick-relief medicine on more than 2 days a week (unless it is just for exercise). ?? You cough more deeply or more often, especially if you notice more mucus or a change in the colorof your mucus. ?? You are not getting better as expected. Where can you learn more? 1. Go to Allocade/Sermo or [employer]/Phytel. 2. Enter F084 in the search box. Current as of: December 02, 2014 Content Version: 109 ?? [id number] [employer]. documented in this encounter Progress Notes Mecca Pugh MD - 01/11/2016 5:14 PM CDT This note was generated using voice activated lokie driver software and may contain typographical errors SUBJECTIVE: Lacey Glovere35 y.o. pleasant female came here today For 5-7 days not feeling well Initially was her sinus. There has not been getting better but not get worse. She feels more now herwheezing and asthma. She has been using albuterol inhaler as needed. She has a low-grade temp. And feeling nauseated no vomiting appetite has been poor. No probable urination no changes to bowel movements No chest pain. She does have a history of the fall allergies She also complaining right ear pain Patient Active Problem List Diagnosis ??? Herpes simplex virus (HSV) infection ??? DJD (degenerative joint disease) of cervical spine (HRC) Past Surgical History Procedure Laterality Date ??? Tonsil and adenoidectomy LW Problem: Tonsillectomy & Adenoidectomy S/p LW Onset: 1983 ??? Falls teeth extraction ??? Endomet ablat therm w/o scope guid 04/27/13 Path benign ??? Cervical disc surgery 2011 ??? Cosmetic surgery breast lift and augmentation Outpatient Prescriptions Prior to Visit Medication Sig Dispense Refill ??? ALBUTEROL SULFATE HFA IN Indications: PN: PATTY RAVI May 29, 2015 8:41 AM Received from: External Pharmacy 3 ??? fluticasone-salmeterol (ADVAIR DISKUS) 100-50 MCG/DOSE diskus inhaler Indications: PN: PATTY RAVI FriMay 29, 2015 8:41 AM Received from: External Pharmacy 0 ??? fluconazole (DIFLUCAN) 150 MG tablet Take one tablet by mouth now, may repeat in 3-5 days if symptoms persist. 2 tablet 0 No facility-administered medications prior to visit. Social History Social History ??? Marital Status: Spouse Name: rocio ??? Number of Children: 1 ??? 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 Smoking status: Never Smoker ??? Smokeless tobacco: Never Used ??? Alcohol Use: 0.6 oz/week 1 Glasses of wine per week Comment: Alcoholic Drinks/day: ??? Drug Use: No ??? Sexual Activity: Partners: Male Control/ Protection: None Other Topics Concern ??? Bike Helmet Yes ??? City Water Yes ??? Guns In Home Yes ??? Seat Belt Yes ??? Weight Concern Yes Social History Narrative Allergies Allergen Reactions ??? Zolpidem Tartrate PN: Blacks out Family History Problem Relation Age of Onset ??? Coronary Artery Disease Father ??? Heart Disease Father ??? High Cholesterol Mother ??? Migraines Mother ??? High Cholesterol Maternal Grandmother ROS All of the systems reviewed, unremarkable, except that mentioned in HPI BP 108/76 mmHg Pulse 74 Temp(Src) 37.2 ??C (99 ??F) (Oral) Wt 88.451 kg (195 lb) Objective: General Appearance: Alert, cooperative, no distress, appears stated age Head: Normocephalic, without obvious abnormality, atraumatic Eyes: PERRL, conjunctiva/corneas clear, EOM's intact, fundi benign, both eyes Ears: right ear TM seemed to be erythema , Nose: Nares normal, septum midline, mucosa normal, no drainage or sinus tenderness Throat: Lips, mucosa, and tongue normal; teeth and gums normal Neck: Supple, symmetrical, trachea midline, no adenopathy; thyroid: no enlargement/tenderness/nodules; no carotid bruit or JVD Back: Symmetric, no curvature, ROM normal, no CVA tenderness Lungs: Clear to auscultation bilaterally, respirations unlabored Chest Wall: No tenderness or deformity Heart: Regular rate and rhythm, S1 and S2 normal, no murmur, rub or gallop Abdomen: Soft, non-tender, bowel sounds active all four quadrants, no masses, no organomegaly Extremities: Extremities normal, atraumatic, no cyanosis or edema Pulses: 2+ and symmetric all extremities Skin: Skin color, texture, turgor normal, no rashes or lesions Lymph nodes: Cervical, supraclavicular, and axillary nodes normal Neurologic: Assessment: ICD-10-CM 1. Asthma with acute exacerbation, unspecified asthma severity (HRC) J45.901 amoxicillin-clavulanate(AUGMENTIN) 875-125 mg per tablet fluticasone (FLOVENT HFA) 110 mcg/actuation inhaler ALBUterol sulfate HFA 108 (90 BASE) MCG/ACT inhaler predniSONE (DELTASONE) 20 MG tablet 2. Acute frontal sinusitis, recurrence not specified J01.10 amoxicillin- clavulanate (AUGMENTIN) 875-125 mg per tablet 3. Acute mucoid otitis media of right ear H65.111 amoxicillin-clavulanate (AUGMENTIN) 875-125 mg pertablet Plan: Lacey was seen today for cough. Patient was given instruction Alivia pad with the hot steam Asthma with acute exacerbation, unspecified asthma severity (HRC), we replace Advair with the Flovent 1 puff twice a day - amoxicillin-clavulanate (AUGMENTIN) 875-125 mg per tablet; Take 1 Tab by mouth two times a day. - fluticasone (FLOVENT HFA) 110 mcg/actuation inhaler; Inhale 1 Puff two times a day. - ALBUterol sulfate HFA 108 (90 BASE) MCG/ACT inhaler; Inhale 1-2 Puffs every 4 hours as needed for Wheezing. - predniSONE (DELTASONE) 20 MG tablet; Take 1 Tab by mouth two times a day. Acute frontal sinusitis, recurrence not specified - amoxicillin-clavulanate (AUGMENTIN) 875-125 mg per tablet; Take 1 Tab by mouth two times a day. Acute mucoid otitis media of right ear - amoxicillin-clavulanate (AUGMENTIN) 875-125 mg per tablet; Take 1 Tab by mouth two times a day. Other orders, to ocver for possible yeast infection, also probiotics was recommended - fluconazole (DIFLUCAN) 150 MG tablet; Take 1 Tab by mouth once for 1 dose. Calixto Pugh MD 5:14 PM 01/11/2016 documented in this encounter Plan of Treatment Not on filedocumented as of this encounter Visit Diagnoses Diagnosis Asthma with acute exacerbation, unspecif ied asthma severity (HRC) - Primary Acute frontal sinusitis, recurrence not specified Acute mucoid otitis media of right ear documented in this encounter Care Teams Hardening Machine Operator Helper Relationship Specialty Start Date End Date Needs Pcp, Assignment PCP - General 08/12/14 [place] [address] documented as of this encounter
--- OUTSIDE RECORDS SUMMARY | 2022-03-23 17:30 | XMS_ITS | Encounter Summary ---
:1980 Author Organization [employer] Address [address] [place] [address] Care Team Providers Name Role Phone Needs Pcp, Assignment Primary Care Provider Reason for Visit Reason Comments Yeast Infection Encounter Details Date Type Department Care Team Description 11/01/2015 Nurse Triage [facility] In[facility]-HEAD OF SALES PROMOTION MD Kiran [id number] [place] [address] [address] [place] [address] [place], [place] [phone] (Wo rk) [address] [phone] Social History Tobacco Use Types Packs/Day Years Used Date Smoking Tobacco: Never Assessed Sex Assigned at Date Recorded Not on file documented as of this encounter Nursing Notes Aurelia Hills RN - 11/01/2015 11:22 AM CDT Lacey Nolasco is a 35 y.o. old woman with the following symptoms. If two or more symptoms present, continue with standing order: Vaginal discharge, thick whitish in color and Vaginal itching Patient has the following serious or complicating symptoms present. If any of the following symptomspresent, patient should be scheduled for a clinician visit: none : No Allergies: Ambien db Assessment: Yeast vaginitis Plan: If not , patient may choose her preferred course of treatment. Oral and vaginal therapies are considered equally effective. Fluconazole (Diflucan) 150mg, one by mouth now, may repeat in 3-5 days if symptoms persist. If no improvement within 5 days, schedule appointment with clinician. documented in this encounter Plan of Treatment Not on filedocumented as of this encounter Visit Diagnoses Diagnosis Yeast vaginitis - Primary Candidiasis of vulva and vagina documented in this encounter Care Teams Truck Chauffeur Relationship Specialty Start Date End Date Needs Pcp, Assignment PCP - General 08/12/14 [place] [address] documented as of this encounter
--- OUTSIDE RECORDS SUMMARY | 2022-03-23 17:30 | XMS_ITS | Encounter Summary ---
:1980 Author Organization [facility] Address [address], [place] [address] Care Team Providers Name Role Phone Needs Pcp, Assignment Primary Care Provider Reason for Visit Procedure/Equipment (Routine) - Incomplete Specialty Diagnoses / Procedures Referred By Contact Refer red To Contact Procedures Provider, Foreign Images Foreign Image(S) Mammogram [address] [place] [address] Referral ID Status Reason Start Date Expiration Date Visits V isits Requested Authorized [id number] Incomplete 11/02/2020 02/01/2022 1 1 Encounter Details Date Type Department Care Team Description 04/01/2018 Ancillary Procedure [facility] PACS Provider, [address] [place] [address] [address] [place] [address] Social History Tobacco Use Types Packs/Day Years [...] Associated Diagnosis Comme nts FOREIGN IMAGE(S) Routine 04/01/2018 2:00 PM Resul ts for this MAMMOGRAM CALENDER WORKER HELPER procedure are i n the results section. documented in this encounter Results Foreign Image(S) Mammogram (04/01/2018 2:00 PM CALENDER WORKER HELPER) Specimen (Source) Anatomical Location Collection Method / [...] on filedocumented in this encounter Care Teams Finishing Range Feeder Relationship Specialty Start Date End Date Needs Pcp, Assignment PCP - General 08/12/14 [place] [address] documented as of this encounter
--- OUTSIDE RECORDS SUMMARY | 2022-03-23 17:30 | XMS_ITS | Encounter Summary ---
:1980 [facility] Address [address], [place] [address] Care Team Providers Name Role Phone Needs Pcp, Assignment Primary Care Provider Encounter Details Date Type Department Care Team Description 06/04/2019 Orders Only Initial Department [facility] MARYSOL RAMIREZ MD [place], [place] [address] Interface provider [phone] [facility] [place] [address] Social History Tobacco Use Types Packs/Day Years [...] Name Priority Date/Time Associated Diagnosis Comme nts MAMMOGRAM SC 06/04/2019 Results for thi s procedure are in the resu lts section. documented in this encounter Results MAMMOGRAM SC (06/04/2019) Anatomical Region Laterality Modality Other Narrative This result has an attachment that is no t available. Interface Provider DUMMY/OTHER/AR documented in this encounter Visit Diagnoses Not on filedocumented in this encounter Additional Health Concerns Infection Onset Date Last Indicated Resolved Time R/O COVID19 12/22/2019 12/22/2019 12/26/2019 2:43 PM CDT R/O COVID19 01/26/2020 01/26/2020 01/28/2020 3:24 PM CDT documented as of this encounter Care Teams Instructor Wastewater Treatment Plant Relationship Specialty Start Date End Date Needs Pcp, Assignment PCP - General 08/12/14 [place] [address] documented as of this encounter
--- OUTSIDE RECORDS SUMMARY | 2022-03-23 17:30 | XMS_ITS | Encounter Summary ---
:1980 Author Organization [employer] [facility] Address [address] [place] [address] Care Team Providers Name Role Phone Needs Pcp, Assignment Primary Care Provider Encounter Details Date Type Department Care Team Description 02/12/2020 Office Visit [facility], Drive-Up Enc ounter for screening Drive Up for other viral diseases [address] [place] [phone] Social History Tobacco Use Types Packs/Day Years [...] Date/Time Associated Comments Diagnosis 2019 NOVEL Routine 02/12/2020 8:32 AM Encounter for Results for this CORONAVIRUS CDT screening for other procedur e are in viral diseases the results section. documented in this encounter Results Asymptomatic - 2019 Novel Coronavirus (COVID-19) (02/12/2020 8:32 AM CDT) [facility] Method Time Signature SARS Not Detected Not Detected 02/15/2020 HELIX CORONAVIRUS 2 8:21 AM TOWER TECHNICIAN RNA IN RESPIRATORY SPECIMEN BY NATALYA W [...] for the duration of time that the [place] of the [facility] declares circumstances exist j ustifying the authorization of the emerg ency use of in vitro diagnostic tests for detection of SARS-CoV-2 virus and/or diagnosis of COVID-19 infection under section 564(b)(1) of the Act, 21 U.S.C. 360bb b-3(b)(1), unless the authorization is t erminated or revoked sooner. To learn more about this test, go to ShopText [email or web address]/[email or web address] Performed by: RICARDO Smalls [id number], CLIA [id number], [address] [place] [address] Apprentice Cosmetologist: Andres Diaz, Ph D, FAC, [place] ([facility]) Specimen Anatomical Collection Method Collection Time Receive d Time (Source) Location / / Volume Laterality Swab (Source Non-blood 02/12/2020 8:32 AM 0 Required) Collection / CDT 12:56 PM CDT Unknown Assignment Needs Pcp LAB_1 Performing Organization Address City/State/ZIP Code Phon e Number [facility] [address] [place] [address] documented in this encounter Visit Diagnoses Diagnosis Encounter for screening for other viral diseases documented in this encounter Care Teams Head Correction Officer Relationship Specialty Start Date End Date Needs Pcp, Assignment PCP - General 08/12/14 [place] [address] documented as of this encounter
--- OUTSIDE RECORDS SUMMARY | 2022-03-23 17:30 | XMS_ITS | Encounter Summary ---
:1980 Author Organization Counts include 234 beds at the [facility] Address [address] [place] [address] Care Team Providers Name Role Phone Needs Pcp, Assignment Primary Care Provider Reason for Visit Reason Comments ERRONEOUS ENTRY Encounter Details Date Type Department Care Team Description 02/15/2019 Telephone [facility] 3931 Abdi Vasquez MD ERRONEOUS ENTRY [facility] [address] [address] [place] [address] [phone] Social History Tobacco Use Types Packs/Day Years [...] on filedocumented in this encounter Care Teams Boat Buffer Plastic Relationship Specialty Start Date End Date Needs Pcp, Assignment PCP - General 08/12/14 [place] [address] documented as of this encounter
--- OUTSIDE RECORDS SUMMARY | 2022-03-23 17:30 | XMS_ITS | Encounter Summary ---
:1980 Author Organization [facility] Address [address], [place] [address] Care Team Providers Name Role Phone Needs Pcp, Assignment Primary Care Provider Reason for Visit Procedure/Equipment (Routine) - Incomplete Specialty Diagnoses / Procedures Referred By Contact Refer red To Contact Procedures Provider, Foreign Images Foreign Image(S) US Biopsy 3930 [place] [address] Referral ID Status Reason Start Date Expiration Date Visits V isits Requested Authorized [id number] Incomplete 11/02/2020 02/01/2022 1 1 Encounter Details Date Type Department Care Team Description 04/01/2018 Ancillary Procedure [facility] PACS Provider, [address] [address] [address] [place] [address] Social History Tobacco Use Types Packs/Day Years [...] Diagnosis Comme nts FOREIGN IMAGE(S) US Routine 04/01/2018 2:05 PM Re sults for this BIOPSY ACCOUNTS PAYABLE ADMINISTRATOR procedure are i n the results section. documented in this encounter Results Foreign Image(S) US Biopsy (04/01/2018 2:05 PM ACCOUNTS PAYABLE ADMINISTRATOR) Specimen (Source) Anatomical Location Collection Method / [...] filedocumented in this encounter Care Teams Supervisor Sample Relationship Specialty Start Date End Date Needs Pcp, Assignment PCP - General 08/12/14 [place] [address] documented as of this encounter
--- OUTSIDE RECORDS SUMMARY | 2022-03-23 17:30 | XMS_ITS | Encounter Summary ---
:1980 Author Organization [facility] Address [address], [place] [address] Care Team Providers Name Role Phone Needs Pcp, Assignment Primary Care Provider Reason for Visit Procedure/Equipment (Routine) - Incomplete Specialty Diagnoses / Procedures Referred By Contact Refer red To Contact Procedures Provider, Foreign Images Foreign Image(S) Mammogram 39[address] [place] [address] Referral ID Status Reason Start Date Expiration Date Visits V isits Requested Authorized [id number] Incomplete 11/02/2020 02/01/2022 1 1 Encounter Details Date Type Department Care Team Description 03/19/2018 Ancillary Procedure [facility] PACS Provider, [address] [place] [address] 39[address] [place] [address] Social History Tobacco Use Types Packs/Day Years [...] Associated Diagnosis Comme nts FOREIGN IMAGE(S) Routine 03/19/2018 2:00 PM Resul ts for this MAMMOGRAM INSTITUTE DIRECTOR procedure are i n the results section. documented in this encounter Results Foreign Image(S) Mammogram (03/19/2018 2:00 PM INSTITUTE DIRECTOR) Specimen (Source) Anatomical Location Collection Method / Collectio n Time Received Time / Laterality Volume Narrative POCT - 11/02/2020 11:21 AM CDT These outside images have been uploaded into PACS. If the results were provided, they will be located in the pa raphael's chart under the Media or Imaging tab. Foreign Images Provider RAD NON-REPORTABLES Performing Organization Address City/State/ZIP Code Phon e Number POCT documented in this encounter Visit Diagnoses Not on filedocumented in this encounter Care Teams Lead Systems Architect Relationship Specialty Start Date End Date Needs Pcp, Assignment PCP - General 08/12/14 [place] [address] documented as of this encounter
--- OUTSIDE RECORDS SUMMARY | 2022-03-23 17:30 | XMS_ITS | Encounter Summary ---
:1980 [facility] Address [address] [address] Care Team Providers Name Role Phone Needs Pcp, Assignment Primary Care Provider Reason for Visit Reason Onset Date Comments COVID Exposure sinus congestion exp osed to friend diagnosed with covid Video Visit 12/21/2019 Encounter Details Date Type Department Care Team Description 12/21/2019 Telemedicine [place] [address] Shashi Momin, Sinus co ngestion (Primary Dx); Family Medicine [facility] Headache, unspecified headache type; [address] Exposure to COVID-19 [place] [address] [phone] Social History Tobacco Use Types Packs/Day Years [...] - Inhaled Oxygen Concentration - - Weight 77.1 kg (170 lb) 12/21/2019 1:47 PM CDT Height - - Body Mass Index 28.29 06/09/2015 8:29 AM SHEAR SCRAPMAN documented in this encounter Progress Notes Shashi Momin, [facility] - 12/21/2019 2:00 PM CDT Subjective: Today's visit with Lacey was conducted as a scheduled video visit. Chief Complaint Patient presents with ??? Covid19 Exposure sinus congestion exposed to friend diagnosed with covid ??? Video Visit History of present illness: Lacey Nolasco is a 39 y.o. female via video visit with recent COVID exposure about a week ago. Over past 2 days has had sinus congestion and drainage along with headaches. No fevers. No fatigue or body aches. No loss of taste or smell. Has mild throat soreness but attributes to sinus drainage. No cough, breathing difficulty, chest pressure or pain. No abdominal pain, nausea or vomiting. Does have some allergies and will have asthma type symptoms when she gets URIs. No other underlying health issues. Review of Systems: Constitutional: No fevers, no body aches, no fatigue Eyes: No eye pain, redness, drainage ENT: Positive for congestion. No loss of taste or smell. Mild sore throat, No ear pain. CHEST: Negative for cough, no breathing difficulty or wheezing HEART: No chest pain, no edema. ABD: No abdominal pain, nausea, vomiting or diarrhea. M/S: No back pain, joint pain or swelling, no muscle pain. NEURO: Positive for headaches. No dizziness, weakness SKIN: No rashes or itching, no worrisome skin lesions. PSYCH: No issues with anxiety or depression. Medications: Reviewed and reconciled in medical record at visit. Allergies: Reviewed and updated in medical record at visit. Objective: Wt 170 lb (77.1 kg) BMI 28.29 kg/m?? GEN: Alert, oriented, not acutely distressed. Does not appear acutely ill. EYES: EOMI, no redness or drainage. ENT: Mild congestion noted NECK: Normal ROM CHEST: Normal effort NEURO: CN 2-12 appear grossly intact. Moving all extremities PSYCH: Alert and oriented. Normal affect. Assessment/Plan: 1. Sinus congestion 2. Headache, unspecified headache type 3. Exposure to COVID-19 virus Plan: Discussed signs and symptoms of worsening condition as well as indications for more acute follow up/ER follow up. Given the followin). Orders placed for COVID testing to call and set up appointment with drive-through. 2). Continue symptomatic treatment with fluids, rest, Ibuprofen, and Tylenol. 3). Close follow-up with worsening symptoms, increased breathing difficulty, feeling sicker, or withany concerns, or if not improving. Orders Placed This Encounter ??? 2019 Novel Coronavirus (COVID-19) Clinician located at clinic. Patient located at home Billing based on: Complexity Shashi Momni PA-C documented in this encounter Plan of Treatment Not on filedocumented as of this encounter Results 2019 Novel Coronavirus (COVID-19) (12/22/2019 3:03 PM CDT) [facility] Method Time Signature SARS Cov-2 Not Provided 12/26/2019 [facility] Source 1:43 PM CDT LABORATORIES Comment: Specimen source was not provided. ??Plea se refer to the [facility] Test Directory for validated specimen source information: [email or web address] ing. ??Interpret results with caution. SARS-CoV-2 by PCR Not Detected 12/26/2019 1:43 PM CDT [facility] Comment: INTERPRETIVE INFORMATION: SARS-CoV-2 (CO VID-19) by [...] complia nce with this authorization, please visit [email or web address] for more information and to access [...] collection, transport, storage, and handling. Performed by [facility], [address] [place] [address] [email or web address], Selin Wilkinson MD, Lab. Director Specimen Anatomical Collection Method Collection Time Receive d Time (Source) Location / / Volume Laterality Swab (Source Non-blood 12/22/2019 3:03 PM 0 Required) Collection / CDT 10:12 PM CDT Unknown Shashi Momin PA-C LAB_1 Performing Organization Address City/State/ZIP Code Phon e Number [facility] [address] [place], [place] [id number] documented in this encounter Visit Diagnoses Diagnosis Sinus congestion - Primary Other diseases of nasal cavity and sinus es Headache, unspecified headache type Exposure to COVID-19 virus documented in this encounter Care Teams Network Operations Specialist Relationship Specialty Start Date End Date Needs Pcp, Assignment PCP - General 08/12/14 [place] [address] documented as of this encounter
--- OUTSIDE RECORDS SUMMARY | 2022-03-23 17:30 | XMS_ITS | Encounter Summary ---
:1980 Author Organization [facility] Address [address] [place] [address] Care Team Providers Name Role Phone Needs Pcp, Assignment Primary Care Provider Reason for Visit Reason Comments Symptoms Encounter Details Date Type Department Care Team Description 05/11/2015 Nurse Triage [facility], Symptoms Services-SHEET FINISHER MD [address] [place] [address] [address] [place] [address] [place], [place] [phone] (Wo rk) [address] [phone] Social History Tobacco Use Types Packs/Day Years Used Date Smoking Tobacco: Never Assessed Sex Assigned at Date Recorded Not on file documented as of this encounter Nursing Notes Sade Calderon RN - 05/11/2015 12:58 PM CST Lacey Nolasco is a 35 y.o. old [...] Allergies: Ambien db Assessment: Yeast vaginitis Plan: Fluconazole (Diflucan) 150mg, one by mouth now, may repeat in 3-5 days if symptoms persist. ERY BAGGER documented in this encounter Plan of Treatment Not on filedocumented as of this encounter Visit Diagnoses Diagnosis Yeast vaginitis - Primary Candidiasis of vulva and vagina documented in this encounter Care Teams Assembler Bonding Relationship Specialty Start Date End Date Needs Pcp, Assignment PCP - General 08/12/14 [place] [address] documented as of this encounter
--- OUTSIDE RECORDS SUMMARY | 2022-03-23 17:30 | XMS_ITS | Encounter Summary ---
:1980 Author Organization [facility] Address [address] [place] [address] Care Team Providers Name Role Phone Needs Pcp, Assignment Primary Care Provider Reason for Visit Reason Comments Medication Request Encounter Details Date Type Department Care Team Description 08/12/2014 Telephone [facility] Adolfo Pugh MD Medication Request Medicine [address] [place] [address] [place], [place] [phone] (Wo rk) Social History Tobacco Use Types Packs/Day Years Used Date Smoking Tobacco: Never Assessed Sex Assigned at Date Recorded Not on file documented as of this encounter Nursing Notes Milady Maya, LEELA - 08/12/2014 1:44 PM CDT Called and left message. Advised and informed. Mecca Pugh MD - 08/12/2014 1:34 PM CDT please call. order valium 10mg 1 hour before MRI, and need a drivers' cash clerk see rx in box Fariba Aguilar RN - 08/12/2014 12:02 PM CDT Action requested: Medication Request Additional Info: See below. Jesus Alberto Oswald - 08/12/2014 11:11 AM CDT Pt has MRI next week and is asking for sedation meds. documented in this encounter Plan of Treatment Not on filedocumented as of this encounter Visit Diagnoses Not on filedocumented in this encounter Care Teams Thumb Sewer Relationship Specialty Start Date End Date Needs Pcp, Assignment PCP - General 08/12/14 [place] [address] documented as of this encounter
--- OUTSIDE RECORDS SUMMARY | 2022-03-23 17:30 | XMS_ITS | Encounter Summary ---
:1980 Author Organization [facility] Address [address], [place] [address] Care Team Providers Name Role Phone Needs Pcp, Assignment Primary Care Provider Reason for Visit Reason Comments Cough Encounter Details Date Type Department Care Team Description 05/29/2015 Hospital Encounter [facility] Vasquez Birmingham maxillary sinusitis, recurrence not specified; Care Allen Daugherty MD [place] [address] [address] [place] [address] [phone] Social History Tobacco Use Types Packs/Day Years Used Date Smoking Tobacco: Never Assessed Sex Assigned at Date Recorded Not on file documented as of this encounter Last Filed Vital Signs Vital Sign Reading Time Taken Comments Blood Pressure 102/68 05/29/2015 8:41 AM INTELLIGENCE OFFICER Pulse 82 05/29/2015 8:41 AM INTELLIGENCE OFFICER Temperature 37 ??C (98.6 ??F) 05/29/2015 8:41 AM INTELLIGENCE OFFICER Respiratory Rate 16 05/29/2015 8:41 AM INTELLIGENCE OFFICER Oxygen Saturation 98% 05/29/2015 8:41 AM INTELLIGENCE OFFICER Inhaled Oxygen Concentration - - Weight - - Height - - Body Mass Index - - documented in this encounter Medications at Time of Discharge Medication Sig Dispensed Refills Start Date End Date azithromycin (aka Take 2 tablets by 6 tablet 0 05/29/2015 06/09/2015 ZITHROMAX) tablet mouth on day 1, then take 1 tablet by mouth daily on days 2-5. fluconazole (AKA Take one tablet by 2 tablet 0 05/11/2015 06/09/2015 DIFLUCAN) 150 MG mouth now, august tabletIndications: Yeast repeat in 3-5 days vaginitis if symptoms persist. ADVAIR DISKUS 100-50 Indications: PN: 0 5 10/20/2015 MCG/DOSE AEPBIndications: CRISTEL FRENCH MOLLY E E FriMay 29, 2015FriMay 29, 2015 8:41 AM 8:41 AM Received Received from: External from: External Pharmacy Pharmacy ALBUTEROL SULFATE HFA Indications: PN: 3 03/08/20 15 10/20/2015 INIndications: CRISTEL FRENCH MOLLY E E FriMay 29, 2015FriMay 29, 2015 8:41 AM 8:41 AM Received Received from: External from: External Pharmacy Pharmacy ALBUTEROL SULFATE HFA Indications: PN: 3 03/08/20 15 04/17/2017 INIndications: CRISTEL FRENCH MOLLY E E FriMay 29, 2015FriMay 29, 2015 8:41 AM 8:41 AM Received Received from: External from: External Pharmacy Pharmacy DIAZEpam (AKA VALIUM) 10 Take 1 tablet by 1 tablet 0 08/1206/09/2015 MG tablet mouth every 8 hours as needed for Anxiety. fluticasone-salmeterol Indications: PN: 0 015 04/17/2017 (ADVAIR DISKUS) 100-50 CRISTEL FRENCH MCG/DOSE diskus E FriMay 29, 2015 inhalerIndications: 8:41 AM Received CRISTEL FRENCH from: External FriMay 29, 2015 8:41 AM Pharmacy Received from: External Pharmacy documented as of this encounter ED Notes Allen Birmingham Lp - 05/29/2015 9:11 AM CST Subjective: Lacey Nolasco is a 35 y.o. female who presents for evaluation of possible sinus infection. Symptoms include achiness, congestion, no fever and non productive cough with no fever, chills, night sweats or weight loss. Onset of symptoms was 1 week ago, gradually worsening since that time. She is drinking plenty of fluids. Past history is significant for recent sinus infection. Patient is a non-smoker. Patient Active Problem List Diagnosis Date Noted ??? Generalized headaches 11/04/2011 ??? Supervision of normal subsequent 09/23/2011 ??? DJD (degenerative joint disease) of cervical spine ??? Dysmenorrhea 10/09/2010 Class: Chronic ??? 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 Current Outpatient Prescriptions Medication Sig Note Dispense Refill ??? ADVAIR DISKUS 100-50 mcg/dose diskus inhaler 05/29/2015: Received from: External Pharmacy 0 ??? diazepam (VALIUM) 10 mg tablet Take 1 tablet by mouth every 8 hours as needed for Anxiety. 1 tablet 0 ??? fluconazole (DIFLUCAN) 150 mg tablet Take one tablet by mouth now, may repeat in 3-5 days if symptoms persist. 2 tablet 0 ??? PROAIR HFA 90 mcg/actuation inhaler 05/29/2015: Received from: External Pharmacy 3 Allergies Allergen Reactions ??? Deejay Stoddard Blacks out Review of Systems Pertinent items are noted in HPI. Objective: BP 102/68 mmHg Pulse 82 Temp(Src) 37 ??C (98.6 ??F) (Oral) Resp 16 SpO2 98% General appearance: alert, cooperative, no distress, appears stated age Head: Normocephalic, without obvious abnormality, atraumatic, sinuses tender to percussion Eyes: conjunctivae/corneas clear. PERRL, EOM's intact. Fundi benign Ears: normal TM's and external ear canals AU Nose: clear discharge, moderate congestion Throat: lips, mucosa, and tongue normal; teeth and gums normal Neck: supple, symmetrical, trachea midline and mild anterior cervical adenopathy Lungs: clear to auscultation bilaterally Heart: regular rate and rhythm, S1, S2 normal, no murmur, click, rub or gallop Assessment: Acute bacterial sinusitis Plan: 1. Sudafed 2. Zithromax 3. Nasal saline rinses as needed for congestion. 4. Follow-up with PCP in 1 week if symptoms worsen or persist. Allen Birmingham MD [facility] LLIGENCE OFFICER documented in this encounter Miscellaneous Notes Medication History - Eloy Vernon MD - 05/29/2015 9:11 AM CST INPATIENT MEDS Encounter Date: 05/29/15 azithromycin (ZITHROMAX) 250 mg tablet Start Date:05/29/15, End Date:06/09/15, Frequency:- *No Administrations Recorded PROAIR HFA 90 mcg/actuation inhaler Start Date:03/08/15, End Date:-, Frequency:- *No Administrations Recorded ADVAIR DISKUS 100-50 mcg/dose diskus inhaler Start Date:03/08/15, End Date:-, Frequency:- *No Administrations Recorded LLIGENCE OFFICER ED AVS Snapshot - Eloy Vernon MD - 05/29/2015 9:11 AM CST Images from the original note were not included. [facility] [address] [place] [address] Dept: [phone] [email or web address] Lacey Nolasco 05/29/2015 8:46 AM Hospital Encounter Description: Female : 1980 Department: [place] [facility] Thank you for choosing [facility] for your health care visit with Allen Birmingham MD. We are happy to care for you and provide this summary of your visit. Your primary college and career counselor is currently listed as Assignment Needs PCP. HERE IS WHAT YOU NEED TO KNOW To learn how you can take steps to stay as healthy as you can be visit [email or web address] Discharge Instructions Sinusitis: Care Instructions Your Care Instructions Sinusitis [...] for yourself at home? ?? Take an tqdf-jwl-irmftvp pain medicine, such as acetaminophen (Tylenol), ibuprofen (Advil, Motrin), or naproxen (Aleve). Read and follow all instructions on the label. ?? If the doctor prescribed antibiotics, take them as directed. Do not stop taking them just becauseyou feel better. You need to take the full course of antibiotics. ?? Be careful when taking hkeo-ipu-seoiomr cold or flu medicines and Tylenol at [...] as expected. Where can you learn more? Go to setObject/SMARTECH MFG and enter [id number] in the search box. Current as of: February 25, 2014 Content Version: 107 ?? [id number] [employer]. HERE IS WHAT YOU NEED TO DO Call your clinic if: You develop new symptoms Your symptoms worsen unexpectedly You are not improving as expected You have questions about your visit or medications Your to do list Future Appointments Provider Department Dept Phone 06/09/2015 8:20 AM Sonja Dalton APRN, WINDOWS ARCHITECT [facility] [facility]- DRY CLEANING MACHINE OPERATOR HELPER [phone] Please arrive 10 - 15 minutes ahead of time for check-in purposes Future Orders Complete By Ordering Dept. Ambulatory referral to Perinatology/Genetic Counseling As directed [place] [facility] Colonoscopy As directed [facility] EGD As directed [facility] Follow-up Information Follow up with Assignment Needs PCP. Why: If symptoms worsen Contact information: [facility] [address] HERE IS INFORMATION FROM TODAY'S VISIT Reason for Visit Cough Reason for Visit History Health issues considered by your clinician today Acute maxillary sinusitis, recurrence not specified Cough If you had any tests, you will be notified of your abnormal results by your clinic. Medications administered today None MEDICATIONS As of today's visit, these are your current medications DOSAGE ADVAIR DISKUS 100-50 mcg/dose diskus inhaler azithromycin (ZITHROMAX) 250 mg tablet Take 2 tablets by mouth on day 1, then take 1 tablet by mouth daily on days 2-5. diazepam (VALIUM) 10 mg tablet Take 1 tablet by mouth every 8 hours as needed for Anxiety. fluconazole (DIFLUCAN) 150 mg tablet Take one tablet by mouth now, may repeat in 3-5 days if symptoms persist. PROAIR HFA 90 mcg/actuation inhaler Vital signs from your visit Your Vital Signs Were BP Pulse Temp(Src) Resp SpO2 Smoking Status 102/68 mmHg 82 37 ??C (98.6 ??F) (Oral) 16 98% Never Smoker Allergies as of 05/29/2015 Deejay Stoddard 04/03/2011 Blacks out Immunization History Reviewed on 08/12/2014 Fluzone Influenza QIV (36+ mos) 01/15/2013 INFLUENZA TIV 0.5 ML (36+ MOS) 01/26/2011 Td Adult (>7 years) 04/12/2004 About You Date Of Sex Race Ethnicity Preferred Language 1980 Female White Non- Syrian This document contains confidential information about your health and care. It is provided directlyto you for your personal, private use only. LLIGENCE OFFICER documented in this encounter Plan of Treatment Not on filedocumented as of this encounter Visit Diagnoses Diagnosis Acute maxillary sinusitis, recurrence no t specified Cough Triage Assessment Note - Cristel French RN - 05/29/2015 8:40 AM INTELLIGENCE OFFICER Pt reports being treated for sinus infection/OM 2-3 weeks ago. Pt states sx improved for awhile, butreturned. Still some right ear pain and cough worsened last Friday. Pt also c/o chills and body aches; denies fever LLIGENCE OFFICER documented in this encounter Care Teams Brim Edge Trimmer Relationship Specialty Start Date End Date Needs Pcp, Assignment PCP - General 08/12/14 [place] [address] documented as of this encounter
--- OUTSIDE RECORDS SUMMARY | 2022-03-23 17:30 | XMS_ITS | Encounter Summary ---
:1980 Author Organization [facility] Address [address] [place] [address] Care Team Providers Name Role Phone Needs Pcp, Assignment Primary Care Provider Reason for Referral Procedure/Equipment (Routine) - Incomplete Specialty Diagnoses / Procedures Referred By Contact Refer red To Contact Diagnoses Abnormal uterine bleeding (AUB) Lillian Holbrook APRN, CNM Procedures US Pelvic Complete W EV [address] [place], [place] [phone] Referral ID Status Reason Start Date Expiration Date Visits V isits Requested Authorized [id number] Incomplete 02/29/2020 05/30/2021 1 1 TATION OPERATOR HELPER Reason for Visit Reason Comments Annual Exam Encounter Details Date Type Department Care Team Description 02/29/2020 Office Visit [facility] Lillian Holbrook Encoun ter for gynecological examination without abnormal finding (Primary Dx); Services-FORMING MILL OPERATOR MICHEAL URBINA Breast screening; [address] Screening for malignant neoplasm of cerv ix; Drive, [address] [place], [place] Special screening examinatio n for human papillomavirus (HPV); [place] [address] Screening for diabetes mellitus; [address] Screening for thyroid disord er; Screening examination for venereal disea se; Visit for screening mammogram; Lipid screening ; Abnormal uterin e bleeding (AUB) Social History Tobacco Use Types Packs/Day Years Used Date Smoking Tobacco: Never Smokeless Tobacco: Never Alcohol Use Standard Drinks/Week Comments Yes 1 (1 standard drink = 0.6 oz pure alcoho l) Alcoholic Drinks/day: Sex Assigned at Date Recorded Not on file documented as of this encounter Last Filed Vital Signs Vital Sign Reading Time Taken Comments Blood Pressure 109/73 02/29/2020 3:43 PM SUBSTATION OPERATOR HELPER Pulse 75 02/29/2020 3:43 PM SUBSTATION OPERATOR HELPER Temperature - - Respiratory Rate - - Oxygen Saturation - - Inhaled Oxygen Concentration - - Weight 83.9 kg (185 lb) 02/29/2020 3:43 PM SUBSTATION OPERATOR HELPER Height 167.6 cm (5' 6) 02/29/2020 3:43 PM SUBSTATION OPERATOR HELPER Body Mass Index 29.86 02/29/2020 3:43 PM SUBSTATION OPERATOR HELPER documented in this encounter Progress Notes Lillian Holbrook, CARLITOS, MICHEAL - 02/29/2020 3:30 PM CST Subjective: Lacey is a 39 y.o. female who presents for an annual exam. The patient has the following concern(s): doing well, new patient to me. Had an ablation 2013 per [facility]. Has been having some spotting when menses is due. For the past 4-5 months has been having increased irregular spotting - still very light but not monthly. Minimal cramping. Yearly breast mammogram at outside clinic, had one this year. Hx breast biopsy, benign 2018 - path report in [facility]. Patient's last menstrual period was 02/08/2020. Menses are regular Menstrual concerns: none. Corrections Unit Supervisor History: Last pap: 2016 negative 2016 Hx of abnormal pap: none documented. OB History Para Term AB Living 2 2 2 0 0 2 SAB TAB Ectopic Multiple Live Births 0 0 0 0 2 # Outcome Date GA Lbr John/2nd Weight Sex Delivery Anes PTL Lv 2 Term 04/26/12 39w0d 8 lb 11 oz (3.941 kg) M Vag-Spont N YOLANDA Name: brittany Sheehan Term 05/23/05 39w0d 8 lb 10 oz (3.912 kg) F Vag-Spont N YOLANDA Sexual History: not a concern - infrequent - declines STD testing Contraception: Condoms. Ablation. NO other control She is satisfied with this method. Health Care Maintenance: Exercise: not frequent Discussed age appropriate health screening: Mammogram: Age 40+, 50+, family hx. Colonoscopy: Age 50+, fam hx DEXA: Age 65+ Lipid screening, DM screening See immunization tab Past Medical History: Past Medical History: Diagnosis Date ??? Acne vulgaris ??? Asthma ??? Cervical radiculopathy at C6 ??? Complication of anesthesia ??? Endometriosis ??? Headache(784.0) Surgeries: Past Surgical History: Procedure Laterality Date ??? CERVICAL DISC SURGERY 2011 ??? COSMETIC SURGERY breast lift and augmentation ??? ENDOMET ABLAT THERM W/O SCOPE GUID 04/27/13 Path benign ??? TONSIL AND ADENOIDECTOMY LW Problem: Tonsillectomy & Adenoidectomy S/p LW Onset: 1983 ??? WISDOM TEETH EXTRACTION Allergies/medications/family history reviewed and updated as needed in [facility]. Review of Systems With the exception of any items noted above, the remainder of the complete ROS is negative. Objective: BP 109/73 (BP Location: Right Arm, BP Cuff Size: Regular) Pulse 75 Ht 5' 6 (1.676 m) Wt 185 lb (83.9 kg) LMP 02/08/2020 BMI 29.86 kg/m?? Estimated body mass index is 29.86 kg/m?? as calculated from the following: Height as of this encounter: 5' 6 (1.676 m). Weight as of this encounter: 185 lb (83.9 kg). General: The patient appears well, in NAD. Neck: supple, symmetrical, trachea midline, no adenopathy. Thyroid: not enlarged, symnormal without suspicious masses, skin or nipple changes or axillary nodes, bilateral implants were noted without obvious palpable abnormalities, breast reduction scars notedmetric, no tenderness/mass/nodules. Lungs: clear, good air entry, no wheezes, rhonchi or rales. Heart: No murmurs, regular rate and rhythm. Breast: Abdomen: soft without tenderness, guarding, rebound tenderness, mass or organomegaly. Back: Symmetric, normal curvature, no CVAT. Pelvic: Ext Gen: No lesions, normal female Urethra: Normal Vagina: Normal rugae, no abnormal discharge, no odor, erythema, lesions; Cervix: normal, no discharge or lesions. Bimanual exam reveals no masses, tenderness, no cervical motion tenderness. Uterus is of normal size. Lower extremities: No edema Skin: No rash or lesions. Psychiatric: Alert & oriented with normal affect and insight, does not appear depressed or anxious. Assessment Healthy female exam. 1. Encounter for gynecological examination without abnormal finding 2. Breast screening 3. Screening for malignant neoplasm of cervix 4. Special screening examination for human papillomavirus (HPV) 5. Screening for diabetes mellitus 6. Screening for thyroid disorder 7. Screening examination for venereal disease 8. Visit for screening mammogram 9. Lipid screening 10. Abnormal uterine bleeding (AUB) Plan: Labs/imaging: Orders Placed This Encounter ??? PAP Test ??? HGB A1C ??? TSH with Free T4 (if TSH Abnormal) ? ? Cholesterol, Total & HDL [CHS] ??? US Pelvic Complete W EV ??? HPV with 16 18 Genotyping ? ? Scr Pap Smer; Obtain Prep&Convy-Lab ??? ALBUterol sulfate HFA 108 (90 Base) MCG/ACT inhaler Will send results via MyChart (or letter if no MyChart) or contact patient with abnormal results. Contraception: should discuss contraception although has had ablation Pelvic US to r/o concerns and follow up with MD if uterine bleeding continues. Health care maintenance: discussed age appropriate health screening/vaccines as appropriate. See HM tab above Healthy lifestyle discussed (e.g. Regular physical activity, BMI). Review pap guidelines 3-5yrs with negative HPV Follow up appointments recommended: see orders above Labs: TSH, A1C, Chol Refilled albuterol. RTC one year, prn with any concerns. TATION OPERATOR HELPER documented in this encounter Plan of Treatment Not on filedocumented as of this encounter Procedures Procedure Name Priority Date/Time Associated Diagnosis Comme nts PAP TEST Routine 02/29/2020 4:22 PM Encounter for Results for this SUBSTATION OPERATOR HELPER gynecological procedure are in examination without the resu lts abnormal finding section. Screening for malignant neoplasm of cervix HPV WITH 16 18 Routine 02/29/2020 4:22 PM Encounter for Result s for this GENOTYPING, SUBSTATION OPERATOR HELPER gynecological procedure are in CERVICAL/ENDOCERVI examination without th e results PELON abnormal finding section. Special screening examination for human papillomavirus (HPV) documented in this encounter Results US Pelvic Complete W EV (03/10/2020 1:42 PM SUBSTATION OPERATOR HELPER) Anatomical Region Laterality Modality Pelvis Ultrasound Specimen (Source) Anatomical Collection Method Collection Time Re ceived Time Location / / Volume Laterality 03/10/2020 1:04 PM SUBSTATION OPERATOR HELPER Impressions 03/10/2020 1:46 PM SUBSTATION OPERATOR HELPER COMPARISON: ??None. TECHNIQUE: ??Transabdominal and transvag inal [...] remainder the study is normal. Lillian Holbrook REGISTERED OCCUPATIONAL THERAPIST, CNM RAD US HPV with 16 18 Genotyping (02/29/2020 4:22 PM SUBSTATION OPERATOR HELPER) [facility] Method Time [facility] HPV High Risk Not Detected Not detected 03/07/2020 [facility] Type 16 PCR 5:37 AM [facility] HPV High Risk Not Detected Not Detected 03/07/2020 [facility] Type 18 PCR 5:37 AM [facility] HPV High Risk Not Detected Not detected 03/07/2020 [facility] Other Than 5:37 AM [facility] 16/18 Specimen Anatomical Collection Method Collection Time Receive d Time (Source) Location / / Volume Laterality Cervical Broom ENTIRE ENDOCERVIX 02/29/2020 4:22 PM 4:49 / Unknown SUBSTATION OPERATOR HELPER [facility] - 03/07/2020 5:37 AM CS T The [facility] HPV test is a qualitative in vitro test for the detection of Human Papillomavirus in [facility] patient specimens. The test utilizes amplification of target DNA by Polymerase Chain Reaction (PCR ) and nucleic acid hybridization for the detection of 14 high-risk (HR) HPV types. The assay tests for high risk types (16, 18, 31, 33, 35, 39, 45, 51, 52, 56, 58, 59, 66, and 68). Lillian Holbrook APRN, CNM LAB_1 Performing Organization Address City/State/[place] [address] PAP Test (02/29/2020 4:22 PM [facility]) Component Value Ref Test Analysis [facility] Method Time [facility] Case Report Pap ? Case: [id number] ? 03/14/2020 [facility] Authorizing Provider: ??Miguel prater, Lillian Daugherty APRN, CNM ??Collected: ? 02/29/2020 1622 ? 9:37 AM LABORAT ORY Ordering Location: ? [facility] ? Received: ?02/29/2020 1649 ? SUBSTATION OPERATOR HELPER ? Services-FORMING MILL OPERATOR ? First Screen: ? Mojgan Cool, CT (ASCP) ? Specimen: ?Pap Test, Rou joe, Cervix/Endocervix ? Pap Specimen Satisfactory for 03/14/2020 [facility] Adequacy evaluation, 9:37 AM LABORATORY endocervical/gottlieb SUBSTATION OPERATOR HELPER sformation zone component present. Pap Negative for 03/14/2020 [facility] Electr onically Interpretation intraepithelial 9:37 AM LABORATOR Y signed by darryl Cool or SUBSTATION OPERATOR HELPER Mojgan K, CT malignancy (ASCP) on (NILM). 03/14/2020 at 9:37 AM Pap Disclaimer The Pap test is a 03/14/2020 METHOD IST screening test 9:37 AM LABORATORY designed to aid SUBSTATION OPERATOR HELPER in the detection of cervical cancer and its precursor lesions. It is not a diagnostic procedure and should not be used as the sole means of detecting cervical cancer. Both false-positive and false-negative results may occur. Gross The specimen is 03/14/2020 [facility] Description received in 9:37 AM LABORATORY [facility] fixative SUBSTATION OPERATOR HELPER and properly labeled. 1 Pap-stained SurePath slide is prepared. Embedded Images 03/14/2020 [facility] 9:37 AM LABORATORY SUBSTATION OPERATOR HELPER Specimen Anatomical Collection Method Collection Time Receive d Time (Source) Location / / Volume Laterality Other Specimen ENTIRE ENDOCERVIX 02/29/2020 4:22 PM 4:49 Type / Unknown SUBSTATION OPERATOR HELPER PM SUBSTATION OPERATOR HELPER Comment: LMP: Patient's last menstrual p eriod was 02/08/2020. Lillian Holbrook APRN, CNM LAB PATHOLOGY Performing Organization Address [facility] Code Phon e Number [facility] [address] [place] [address] (ABNORMAL) Cholesterol, Total & HDL [CHS] (02/29/2020 4:12 PM SUBSTATION OPERATOR HELPER) [facility] Method Time Signature Cholesterol 206 (H) 0 - 199 03/01/2020 [facility] mg/dL 12:53 PM SUBSTATION OPERATOR HELPER LABORATORY HDL Cholesterol 64 >=40 mg/dL 03/01/2020 [facility] 12:53 PM SUBSTATION OPERATOR HELPER LABORATORY Non HDL Chol, 142 mg/dL 03/01/2020 [facility] Calculated 12:53 PM SUBSTATION OPERATOR HELPER LABORATORY Specimen Anatomical Collection Method / Collection Time Recei regan Time (Source) Location / Volume Laterality Blood Venipuncture / 02/29/2020 4:12 02/29/2020 4:12 Unknown PM SUBSTATION OPERATOR HELPER PM SUBSTATION OPERATOR HELPER Lillian Holbrook APRN, CNM LAB_1 Performing Organization Address [facility] Phon e Number [facility] [address] [place] [address] TSH with Free T4 (if TSH Abnormal) (02/29/2020 4:12 PM SUBSTATION OPERATOR HELPER) athologist Signature TSH, Reflex 1.13 0.30 - 4.50 03/01/2020 [facility] uIU/mL 1:45 PM SUBSTATION OPERATOR HELPER LABORATORY Specimen Anatomical Collection Method / Collection Time Recei regan Time (Source) Location / Volume Laterality Blood Venipuncture / 02/29/2020 4:12 02/29/2020 4:12 Unknown PM SUBSTATION OPERATOR HELPER PM SUBSTATION OPERATOR HELPER Narrative [facility] - 03/01/2020 1:45 P M SUBSTATION OPERATOR HELPER Lab will automatically reflex to Free T4 when TSH results are <0.30 uIU/mL or >4.50 mIU/mL. Lillian Holbrook APRN, CNM LAB_1 Performing Organization Address [facility]/ZIP Code Phon e Number [facility] [address] [place] [address] HGB A1C (02/29/2020 4:12 PM SUBSTATION OPERATOR HELPER) Patholo gist Method Time Signature Hemoglobin A1C 5.2 <=5.6 % 03/01/2020 [facility] 10:28 AM SUBSTATION OPERATOR HELPER [facility] Specimen Anatomical Collection Method / Collection Time Recei regan Time (Source) Location / Volume Laterality Blood Venipuncture / 02/29/2020 4:12 02/29/2020 4:12 Unknown PM SUBSTATION OPERATOR HELPER PM SUBSTATION OPERATOR HELPER Lillian Holbrook APRN, CNM LAB_1 Performing Organization Address City/State/[facility] Code Phon e Number [facility] [address] [address] documented in this encounter Visit Diagnoses Diagnosis Encounter for gynecological examination without abnormal finding - Primary Routine gynecological examination Breast screening Breast screening, unspecified Screening for malignant neoplasm of cerv ix Screening for malignant neoplasm of the cervix Special screening examination for human papillomavirus (HPV) Screening for diabetes mellitus Screening for thyroid disorder Screening examination for venereal disea se Visit for screening mammogram Other screening mammogram Lipid screening Screening for lipoid disorders Abnormal uterine bleeding (AUB) Abnormal uterine bleeding (AUB) documented in this encounter Care Teams Pricing/Signage Team Member Relationship Specialty Start Date End Date Needs Pcp, Assignment PCP - General 08/12/14 [place] [address] documented as of this encounter
--- OUTSIDE RECORDS SUMMARY | 2022-03-23 17:31 | XMS_ITS | Encounter Summary ---
:1980 Author Organization [facility] Address [address], [place] [address] Care Team Providers Name Role Phone Rosalva Flores APRN, TRUCK SUPERVISOR Primary Care Provider Reason for Visit Reason Comments Cough Encounter Details Date Type Department Care Team Description 04/28/2014 Hospital Encounter [facility] RudolphLuciano S S, Cough [address] [facility] [place] [address] [place] [address] E [phone] [place] [address] (Wo rk) Social History Tobacco Use Types Packs/Day Years Used Date Smoking Tobacco: Never Assessed Sex Assigned at Date Recorded Not on file documented as of this encounter Last Filed Vital Signs Vital Sign Reading Time Taken Comments Blood Pressure 116/74 04/28/2014 12:07 PM ASSESSMENT SPECIALIST Pulse 88 04/28/2014 12:07 PM ASSESSMENT SPECIALIST Temperature 36.5 ??C (97.7 ??F) 04/28/2014 12:07 PM ASSESSMENT SPECIALIST Respiratory Rate 16 04/28/2014 12:07 PM ASSESSMENT SPECIALIST Oxygen Saturation 97% 04/28/2014 12:07 PM ASSESSMENT SPECIALIST Inhaled Oxygen Concentration - - Weight - - Height - - Body Mass Index - - documented in this encounter Medications at Time of Discharge Medication Sig Dispensed Refills Start Date End Date amoxicillin (aka AMOXIL) Take 1 tablet by 20 tablet 0 04/2205/02/2014 tablet mouth 2 times daily for 10 days. dexamethasone (aka Take 1 tablet by 6 tablet 0 04/28/2014 07/11/2014 DECADRON) tablet mouth 2 times daily (with meals). 2 tabs po qd every three days as needed guaiFENesin-codeine (AKA Take 5-10 mLs by 120 mL 0 04/2007/11/2014 ROBITUSSIN AC) 100-10 mouth every 4 hours MG/5ML solution as needed for Cough. Do not drive within 8 hours of taking this medication. HYDROcodone-acetaminophen Take 1-2 tablets by 15 tablet 0 0 04/22/2014 07/11/2014 (aka NORCO) 5-325 MG mouth every 6 hours tablet TABS as needed for Pain. documented as of this encounter ED Notes Luciano Rudolph PA-C - 04/28/2014 2:24 PM CST ED Provider Notes signed by Luciano Rudolph PA-C at 05/04/14 1042 Author: Luciano Rudolph PA-C Service: (none) Author Type: Physician Sub Prior Filed: 05/04/14 1042 Note Time: 04/28/141745 Status: Signed Strip Machine Tender: Luciano Rudolph PA-C (Physician Sub Prior) NAME: SHAMIR NOLASCO MR#: [id number] CSN: [id number] AUTHENTICATING CLINICIAN: Luciano Rudolph PA-C CONFIRM #: [id number] LOC: [facility] URGENT CARE PROGRESS NOTE DATE OF VISIT: 04/28/2014 : 1980 SUBJECTIVE: This is a 34-year-old female who presents to clinic today complaining of a cough for the past 3 weeks. She was seen here on April 22 of this year. At that time, she was placed on an antibiotic and given dexamethasone. She states her symptoms are definitely improving; however, she seems to be up coughing again. She thought the dexamethasone helped immensely and would like some more of this to control her cough. She denies any new fever. She is otherwise healthy. Remainder of review of systems is negative. ALLERGIES: Per Epic. MEDICATIONS: Per Epic. PAST MEDICAL HISTORY: Includes recent treatment for a lower respiratory infection. SOCIAL HISTORY: She is a nonsmoker and not exposed to tobacco in the home. OBJECTIVE: VITAL SIGNS: Temp 36.5, pulse is 88, respirations are 16, blood pressure is 116/74, O2 sats are 97% on room air. GENERAL: This is a 34-year-old, well-developed, well-nourished female, in no acute distress. She is alert and oriented to person, place, and time. HEENT: Head is normocephalic, atraumatic. Eyes are PERRL. Ears: Tympanic membranes are free of erythema, edema, exudate. Oropharynx is free of erythema, edema, exudate. NECK: Supple. Trachea is midline. No lymphadenopathy. LUNGS: Clear to auscultation in all rosario. No wheezes, rales, or rhonchi. HEART: Regular rate and rhythm. No murmurs, rubs, or gallops. ASSESSMENT: Cough. PLAN: Patient was given dexamethasone 10 mg orally while in the clinic. She was given 8 mg to be taken 3 days from now and then repeated as needed every 3 days. She should continue to take Tylenol or ibuprofen as needed. She should get plenty of rest. She should follow up with her primary provider if her symptoms worsen or do not resolve despite the course of therapy. SSK:MEDQ C: CONFIRM #: [id number] SSMENT SPECIALIST documented in this encounter Miscellaneous Notes Medication History - Eloy Vernon MD - 04/28/2014 1:11 PM CST INPATIENT MEDS Encounter Date: 04/28/14 dexamethasone (DECADRON) 4 mg tablet Start Date:04/28/14, End Date:07/11/14, Frequency:2 TIMES DAILY WITH MEALS *No Administrations Recorded dexamethasone (DECADRON) injection 10 mg Start Date:04/28/14, End Date:04/28/14, Frequency:ONCE Taken Dose Action User Route Site Recorded Comment Reason 04/28/14 1311 10 mg Given Caitlin Cunningham RN Oral - 04/28/14 1311 Explained signs and symptoms of allergic reaction. Pt verbalized understanding. - SSMENT SPECIALIST ED AVS Snapshot - Eloy Vernon MD - 04/28/2014 1:11 PM CST Images from the original note were not included. [facility] [address] [place] [address] Dept: [phone] [email or web address] Shamir Nolasco 04/28/2014 12:10 PM Hospital Encounter Description: Female : 1980 Department: [facility] Thank you for choosing [facility] for your health care visit with Luciano Rudolph PA-C. We are happy to care for you and provide this summary of your visit. Your primary career services director iscurrently listed as Rosalva Flores APRN, TRUCK SUPERVISOR. HERE IS WHAT YOU NEED TO KNOW To learn how you can take steps to stay as healthy as you can be visit [email or web address] Discharge Instructions Begin taking dexamethasone on Friday or Friday if needed, may repeat every three days as needed. HERE IS WHAT YOU NEED TO DO Call your clinic if you develop new or worsening symptoms or if you have questions about your visit or medications. Your to do list Future Orders Complete By Ordering Dept. Ambulatory referral to ENT As directed [facility] Ambulatory referral to Perinatology/Genetic Counseling As directed [facility] Colonoscopy As directed [facility] EGD As directed [facility] HERE IS INFORMATION FROM TODAY'S VISIT Reason for Visit Cough Reason for Visit History Health issues considered by your clinician today Cough If you had any tests, you will be notified of your abnormal results by your clinic. Medications administered today None MEDICATIONS As of today's visit, these are your current medications Medication DOSAGE amoxicillin (AMOXIL) 875 mg tablet Take 1 tablet by mouth 2 times daily for 10 days. dexamethasone (DECADRON) 4 mg tablet Take 1 tablet by mouth 2 times daily (with meals). 2 tabs po qd every three days as needed guaiFENesin-codeine (GUAIFENESIN AC) 100-10 mg/5 mL liquid Take 5-10 mLs by mouth every 4 hours as needed for Cough. Do not drive within 8 hours of taking this medication. HYDROcodone-acetaminophen (NORCO) 5-325 mg per tablet Take 1-2 tablets by mouth every 6 hours as needed for Pain. Vital signs from your visit Your Vitals Were BP Pulse Temp(Src) Resp SpO2 116/74 88 36.5 ??C (97.7 ??F) (Oral) 16 97% Allergies as of 04/28/2014 Ambien Richi 04/03/2011 Blacks out Immunization History Reviewed on 08/30/2013 Fluzone Influenza QIV (36+ mos) 01/15/2013 INFLUENZA TIV 0.5 ML (36+ MOS) 01/26/2011 Td Adult (>7 years) 04/12/2004 About You Date Of Sex Race Ethnicity Preferred Language 1980 Female White Non- Syriac This document contains confidential information about your health and care. It is provided directlyto you for your personal, private use only. SSMENT SPECIALIST documented in this encounter Plan of Treatment Not on filedocumented as of this encounter Visit Diagnoses Diagnosis Cough Triage Assessment Note - Dacia Chawla RN - 04/28/2014 12:06 PM CST Was seen here 04/22/14 for a cough. Per pt was given abx and steroid (1 dose), cough seemed to be getting better but is worse again. Still on abx. documented in this encounter Care Teams Electric Accounting Machine Operator Relationship Specialty Start Date End Date Rosalva Flores APRN, TRUCK SUPERVISOR PCP - General 02/08/14 08/11/14 [address] [place] [address] documented as of this encounter
--- OUTSIDE RECORDS SUMMARY | 2022-03-23 17:31 | XMS_ITS | Encounter Summary ---
:1980 Author Organization [facility] Address [address] [place] [address] Care Team Providers Name Role Phone Rosalva Flores Patricia URBINA, ACREAGE REPORTER Primary Care Provider [phone] Reason for Referral Specialty Diagnoses / Procedures Referred By Contact Refer red To Contact Mecca Pugh MD [address] [facility] [address] [place], [place] [address] Referral ID Status Reason Start Date Expiration Date Visits Requ ested Visits Authorized Reason for Visit Reason Comments NAIL PROBLEM Encounter Details Date Type Department Care Team Description 07/15/2014 Initial Consult Arnoldo Wu Onychomyc osis (Primary Dx); Podiatric MedSurg FREDERIC Andres Contusion of great toe with damage to na il, right, initial encounter [id number] [place] [address] [phone] Social History Tobacco Use Types Packs/Day Years Used Date Smoking Tobacco: Never Assessed Sex Assigned at Date Recorded Not on file documented as of this encounter Progress Notes Arnoldo Boyce DPM - 07/15/2014 12:24 PM CDT DATE OF VISIT: 07/15/2014 SUBJECTIVE: Laceyjignesh Nolasco is a pleasant 34 y.o. female who presents to clinic today for evaluation of her right great toenail. She states that 2 years ago she did drop something on it. She does not have any pain or discomfort but it has been discolored for approximately one year. About one month ago, it started turning green. She was seen in primary care and was sent here for evaluation. Chart review indicates that he did see her in 2005 for a paronychia on the lateral aspect of her right great toenail.. Adverse Drug Reactions: Allergies Allergen Reactions ??? Deejay Stoddard Blacks out No outpatient prescriptions prior to visit. No facility-administered medications prior to visit. Review of Systems: Negative for fever, rash or shortness of breath. Past Medical History: Past Medical History Diagnosis Date ??? Cervical radiculopathy at C6 ??? Endometriosis ??? Acne vulgaris ??? Headache(784.0) Patient Active Problem List Diagnosis Date Noted ??? Generalized headaches 11/04/2011 ??? Supervision of normal subsequent 09/23/2011 ??? DJD (degenerative joint disease) of cervical spine ??? Dysmenorrhea 10/09/2010 Class: Chronic ??? 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 Tonsillectomy and adenoidectomy LW Problem: Tonsillectomy & Adenoidectomy S/p LW Onset: 1983 ??? [place] tooth extraction ??? 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 year old female who appears their stated age. Alert and oriented and in no acute distress. Walks without a limp and appears to be in general good health. DP and PT pulses are palpable. Hair growth is present on the digits and capillary filling time is less than two seconds. Sensation is intact. There is no weakness with muscle testing of the foot, ankle or lower leg. No pain or restriction with subtalar joint or ankle joint range of motion. She does have some thickening noted to the right great toenail. She does have a green discoloration noted that is in the distal two thirds ofthe nail. The proximal one third of the nail looks clear and there is a sharp line of demarcation. There is no evidence of infection or paronychia change. There is some onycholysis of the nail is dayron attached. ASSESSMENT: Contusion right great toenail Onychomycosis PLAN: Treatment options were discussed with the patient. I discussed the condition in great detail. It appears that the nail has been discolored and thickened secondary to trauma. I discussed with the patient that this is a noncontagious fungus. I discussed with her that the green discoloration is a ty pe of fungus. I discussed applying white vinegar to the nail plate once a day for the next week. Shewill then use of Vicks VapoRub. Reassurance was given. Followup p.r.n. basis. The patient was discharged ambulatory and in stable condition. No orders of the defined types were placed in this encounter. No orders of the defined types were placed in this encounter. (This note was created using voice recognition software and may contain some forensics analyst errors) documented in this encounter Plan of Treatment Scheduled Referrals Name Type Priority Associated Diagnoses Order S chedule Foot & Referral Routine Contusion of great toe Order ed: 07/15/2014, Ankle/Podiatry with damage to nail, Expir es: 07/15/2014 Consult-Adult/Peds right, initial encount er documented as of this encounter Visit Diagnoses Diagnosis Onychomycosis - Primary Dermatophytosis of nail Contusion of great toe with damage to na il, right, initial encounter documented in this encounter Care Teams Equipment Processer Storage Relationship Specialty Start Date End Date Rosalva Flores, CHAR FILTER OPERATOR HELPER, ACREAGE REPORTER PCP - General 02/08/14 08/11/14 [address] [place] [address] documented as of this encounter
--- OUTSIDE RECORDS SUMMARY | 2022-03-23 17:31 | XMS_ITS | Encounter Summary ---
:1980 Author Organization [facility] Address [address] [place] [address] Care Team Providers Name Role Phone Rosalva Flores Patricia URBINA, PRACTICE REPRESENTATIVE Primary Care Provider Reason for Visit Reason Comments Cough Ear Pain Encounter Details Date Type Department Care Team Description 04/20/2014 Office Visit [facility] Gabriela, Garrett i llness (Primary Medicine Caitlin Bull MD Dx) [address] [place], [place] [address] [address] [place], [place] [phone] [id number] Social History Tobacco Use Types Packs/Day Years Used Date Smoking Tobacco: Never Assessed Sex Assigned at Date Recorded Not on file documented as of this encounter Last Filed Vital Signs Vital Sign Reading Time Taken Comments Blood Pressure 115/60 04/20/2014 2:58 PM SIGN ERECTOR AND REPAIRER Pulse 78 04/20/2014 2:58 PM SIGN ERECTOR AND REPAIRER Temperature 36.8 ??C (98.2 ??F) 04/20/2014 2:58 PM SIGN ERECTOR AND REPAIRER Respiratory Rate - - Oxygen Saturation 99% 04/20/2014 2:58 PM SIGN ERECTOR AND REPAIRER Inhaled Oxygen Concentration - - Weight 86.3 kg (190 lb 4 oz) 04/20/2014 2:58 PM SIGN ERECTOR AND REPAIRER Height 167.6 cm (5' 6) 04/20/2014 2:58 PM SIGN ERECTOR AND REPAIRER Body Mass Index 30.71 04/20/2014 2:58 PM SIGN ERECTOR AND REPAIRER documented in this encounter Progress Notes Caitlin Ochoa - 04/29/2014 9:24 AM CST CC: Cough. SUBJECTIVE: Lacey Nolasco is a 34 y.o. female, with history of cough, sore throat, nasal congestion, postnasal drainage, and right ear pain, starting 5 days ago. Patient had fever (maximum temperature 102.0??F), chills, and myalgias the initial days of her illness, but she denies these symptoms currently. Patient was seen in the Urgent Care 2 days ago (April 18, 2014), at which time she was diagnosed with Influenza A. Patient has a history of asthma, which is only triggered by significant exercise and viral illnesses. She has had intermittent wheezing the past few days (not currently), but she has not responded to Albuterol, as last used 2 nights ago. Cough is occasionally productive. No hemoptysis, chest pain, shortness of breath, or lower extremity edema. Patient states she has been unable to sleep the past few nights, secondary to cough. Patient presents to request a cough medication, as she has tried Vicks, Mucinex, a humidifier, cough drops, tea with honey, and multiple OTC agents, without success. Past Medical History: Reviewed in [employer]. Allergies: Reviewed in [employer]. Medications: Reviewed in [employer]. ROS: Patient denies risk for . Patient is amenorrheic post previous ablation. has had a vasectomy OBJECTIVE: Vital Signs: BP 115/60 Pulse 78 Temp(Src) 98.2 ??F (36.8 ??C) (Oral) Ht 5' 6 (1.676 m) Wt 190 lb 4 oz (86.297 kg) BMI 30.72 kg/m2 SpO2 99%. General: Appears well and in NAD. Normal phonation. Eyes: Sclera anicteric. No conjunctivitis. PERRLA. EOMI. Nose: Mildly congested. Sinuses nontender to palpation. Ears: Canals and TM's normal without lesions. Pharynx: Moist mucous membranes without lesions, erythema, or exudate, with clear postnasal drainage. Neck: Supple, without masses, lymphadenopathy or tenderness. Scar from previous neck surgery is well-healed. Respiratory: Normal respiratory effort. Lungsare clear with good breath sounds. No wheezes, rales, or rhonchi. Heart: RRR without murmurs, rubs, or gallops. Abdomen: Nondistended. Extremities: Full range of motion. No peripheral edema. Calves nontender to palpation. Skin: No rash. Chest X-ray PA & Lateral: Discussed with and declined by patient. Laboratory: Rapid Strep discussed with/declined by patient at time of visit. ASSESSMENT: Diagnosis (ICD9) and Associated Orders ICD-9-CM 1. Viral illness (5 days duration), likely influenza-like illness. Currently afebrile. Possible mildasthma exacerbation. 079.99 PLAN: Discussed treatment of viral illnesses and lack of indication for antibiotics. Use OTC medications, Albuterol q4-6 hours, and tea with honey, only as directed. Patient was given Guaifenesin AC (as noted in Epic), as she has been unable to sleep the past few nights. Avoid driving within 8 hours of taking this medication. RTC PRN if worsening symptoms or not gradually improving over the next week. Follow up immediately if: chest pain, respiratory distress, or other emergent symptoms, as discussed. The patient was discharged ambulatory and in stable condition post discussion of follow up. ERECTOR AND REPAIRER documented in this encounter Plan of Treatment Not on filedocumented as of this encounter Visit Diagnoses Diagnosis Viral illness - Primary Unspecified viral infection, in conditio ns classified elsewhere and of unspecified site documented in this encounter Care Teams Diagnostic Tech Relationship Specialty Start Date End Date Rosalva Flores APRN, PRACTICE REPRESENTATIVE PCP - General 02/08/14 08/11/14 [address] [place] [place] [address] documented as of this encounter
--- OUTSIDE RECORDS SUMMARY | 2022-03-23 17:31 | XMS_ITS | Encounter Summary ---
:1980 [address] [facility] Address [address] [address] Care Team Providers Name Role Phone Needs Pcp, Assignment Primary Care Provider Encounter Details Date Type Department Care Team Description 09/07/2013 Consent for [facility] RH INFORM ED CONSENT Procedure/Treatment RECORD Social History Tobacco Use Types Packs/Day Years [...] documented as of this encounter Care Teams Lithograph Operator Relationship Specialty Start Date End Date Needs Pcp, Assignment PCP - General 08/12/14 [place] [address] documented as of this encounter
--- OUTSIDE RECORDS SUMMARY | 2022-03-23 17:31 | XMS_ITS | Encounter Summary ---
:1980 Author [facility] Address [address], [place] [address] Care Team Providers Name Role Phone Rosalva Flores APRN, DENTAL ASSISTANT Primary Care Provider [phone] Reason for Visit Reason Comments Vaginal Discharge Encounter Details Date Type Department Care Team Description 05/16/2014 Nurse Triage Sonja Cagle Vaginal D ischarge Obstetrics/Gynecolog y Abdi, BOX COVERING MACHINE OPERATOR, DENTAL ASSISTANT [address] [place] [address] [place], [place] [phone] (Wo rk) Social History Tobacco Use Types Packs/Day Years Used Date Smoking Tobacco: Never Assessed Sex Assigned at Date Recorded Not on file documented as of this encounter Nursing Notes Sade Calderon, RN - 05/16/2014 8:41 AM CST Protocol: VAGINAL [id number] Affirmative: Symptoms of a yeast infection' (i.e., itchy, white discharge, not bad smelling) and notimproved > 3 days following Care Advice Disposition of See Within 3 Days In Office suggested. Pt calling requesting Diflucan for a yeast infection. Pt has tried the OTC monistat cream and that is not working. Pt is having white discharge, itching and irritation. Denies pelvic pain, fever. Pt has a sick child at home and is unable to come into the clinic this week and does not want to go to .Pt has had yeast infection before and symptoms cleared up with the Diflucan pill. Informed pt I willsend her clinician a message she is requesting Diflucan. Lacey Nolasco [phone] MING MACHINE OPERATOR documented in this encounter Plan of Treatment Not on filedocumented as of this encounter Visit Diagnoses Not on filedocumented in this encounter Care Teams Flat Examiner Relationship Specialty Start Date End Date Rosalva Flores APRN, DENTAL ASSISTANT PCP - General 02/08/14 08/11/14 [address] [place] [address] documented as of this encounter
--- OUTSIDE RECORDS SUMMARY | 2022-03-23 17:31 | XMS_ITS | Encounter Summary ---
:1980 [facility] Address [address], [place] [address] Care Team Providers Name Role Phone Rosalva Flores APRN, SPORTS LEADERSHIP INSTRUCTOR Primary Care Provider [phone] Reason for Visit Reason Comments Pharyngitis Cough Encounter Details Date Type Department Care Team Description 04/22/2014 Hospital Encounter [facility] Luciano Rudolph nondalton pharyngitis; Care SJENNIFERC Lymphadenopathy; [address] [facility] [address] Cough; [place] [address] E Acute asthma exacerbation [phone] [place] [address] Social History Tobacco Use Types Packs/Day Years Used Date Smoking Tobacco: Never Assessed Sex Assigned at Date Recorded Not on file documented as of this encounter Last Filed Vital Signs Vital Sign Reading Time Taken Comments Blood Pressure 118/74 04/22/2014 8:30 AM CLOTH ROLL WINDER Pulse 85 04/22/2014 8:30 AM CLOTH ROLL WINDER Temperature 36.9 ??C (98.4 ??F) 04/22/2014 8:30 AM CLOTH ROLL WINDER Respiratory Rate 16 04/22/2014 8:30 AM CLOTH ROLL WINDER Oxygen Saturation 97% 04/22/2014 8:30 AM CLOTH ROLL WINDER Inhaled Oxygen Concentration - - Weight - - Height - - Body Mass Index - - documented in this encounter Medications at Time of Discharge Medication Sig Dispensed Refills Start Date End Date amoxicillin (aka Take 1 tablet by mouth 2 20 tablet 0 04/2205/02/2014 AMOXIL) tablet times daily for 10 days. dextromethorphan-guai Take 1 tablet by mouth 2 0 04/22/2014 04/28/2014 FENesin (aka MUCINEX times daily. DM) 30-600 MG TB12 guaiFENesin-codeine Take 5-10 mLs by mouth 120 mL 0 10/201407/11/2014 (AKA ROBITUSSIN AC) every 4 hours as needed 100-10 MG/5ML for Cough. Do not drive solution within 8 hours of taking this medication. HYDROcodone-acetamino Take 1-2 tablets by 15 tablet 0 04/2207/11/2014 phen (aka NORCO) mouth every 6 hours as 5-325 MG tablet TABS needed for Pain. HYDROCORTISONE-TETRAC Swish and spit 5 mLs as 240 mL 0 0 04/22/2014 04/28/2014 [id number] needed for Pain. JEFFRY Hydrocortisone 100mg+tetracycline 1500 mg+nystatin susp 10ml qs to 240ml with Benadryl soln. documented as of this encounter ED Notes Luciano Rudolph PA-C - 04/22/2014 10:30 AM CST ED Provider Notes signed by Luciano Rudolph PA-C at 04/22/14 1116 Author: Luciano Rudolph PA-C Service: (none) Author Type: Physician Fertilizer Processing Supervisor Filed: 04/22/14 1116 Note Time: 04/22/14 1053 Status: Signed Plastic Block Boiler Reliner: Luciano Rudolph PA-C (Physician Fertilizer Processing Supervisor) NAME: SHAMIR NOLASCO MR#: [id number] CSN: [id number] AUTHENTICATING CLINICIAN: Luciano Rudolph PA-C CONFIRM #: [id number] LOC: [facility] URGENT CARE PROGRESS NOTE DATE OF VISIT: 04/22/2014 : 1980 SUBJECTIVE: This is a 34-year-old female who presents to clinic today complaining of a 1- week history of a coughand sore throat. She was seen last Friday and diagnosed with influenza. At that time, her rapid strep was negative. Her culture has since returned negative, as well. She states her cough is nonproductive. She does have a history of asthma and has been using her inhaler. She states her sore throat has progressively gotten worse, to the point where she cannot sleep. She did have a Percocet at home and took one last night which did help her pain so she could sleep. She denies any associated fever. Remainder of review of systems is negative. ALLERGIES: Per Epic. MEDICATIONS: Per Epic. PAST MEDICAL HISTORY: Noncontributory. SOCIAL HISTORY: She is a nonsmoker and not exposed to tobacco in the home. OBJECTIVE: VITAL SIGNS: Temp 36.9, pulse is 85, respirations are 16, blood pressure is 118/74, O2 sats are 97% on room air. This is a 34-year-old, well-developed, well-nourished female in no acute distress. She is alert and oriented to person, place, and time. Head is normocephalic, atraumatic. Eyes are PERRL. Ears are free of erythema, edema, exudate. Oropharynx reveals a past tonsillectomy; however, the patient does have some swelling in her oropharynx, with spots of white exudate. NECK: Supple. Trachea is midline. There is positive cervical lymphadenopathy. LUNGS: Clear to auscultation in all rosario. No wheezes, rales, or rhonchi. HEART: Regular rate and rhythm. No murmurs, rubs, or gallops. ASSESSMENT: 1. Pharyngitis. 2. Lymphadenopathy. 3. Cough. 4. Asthma. PLAN: Since the patient has been symptomatic for a week now and her symptoms are worsening instead of improving, we will place her on amoxicillin 875 mg twice daily for the next 10 days. She was given Decadron prior to discharge. She was given Magic mouthwash to be used before eating. Lastly, she was given Vicodin to be used for pain control and control of her cough at night. She should get plenty of rest and increase her fluid intake. She should follow up with her primary provider if her symptoms worsen or do not resolve despite the course of therapy. SSK:RAMIN C: CONFIRM #: [id number] H ROLL WINDER Yolanda Sethi RN - 04/22/2014 8:41 AM CST Rst neg documented in this encounter Miscellaneous Notes Medication History - Eloy Vernon MD - 04/22/2014 9:37 AM CST INPATIENT MEDS Encounter Date: 04/22/14 nnilvfqpuibdnb-bhflyvbmwumvn-dussfxmk-diphenhydramine (MAGIC MOUTHWASH-FORMULA #2) oral suspension Start Date:04/22/14, End Date:04/28/14, Frequency:PRN *No Administrations Recorded HYDROcodone-acetaminophen (NORCO) 5-325 mg per tablet Start Date:04/22/14, End Date:07/11/14, Frequency:EVERY 6 HOURS PRN *No Administrations Recorded amoxicillin (AMOXIL) 875 mg tablet Start Date:04/22/14, End Date:05/02/14, Frequency:2 TIMES DAILY *No Administrations Recorded dexamethasone (DECADRON) injection 10 mg Start Date:04/22/14, End Date:04/22/14, Frequency:ONCE Taken Dose Action User Route Site Recorded Comment Reason 04/22/14 0935 10 mg Given Yolanda Sethi RN Oral - 04/22/14 0935 - - dextromethorphan-guaiFENesin (MUCINEX DM) 30-600 mg per tablet Start Date:-, End Date:04/28/14, Frequency:2 TIMES DAILY *No Administrations Recorded H ROLL WINDER documented in this encounter Plan of Treatment Not on filedocumented as of this encounter Procedures Procedure Name Priority Date/Time Associated Diagnosis Comme nts BETA STREP FOLLOWUP Routine 04/22/2014 1:16 PM Re sults for this CLOTH ROLL WINDER procedure are i n the results section. GROUP A STREP STAT 04/22/2014 8:32 AM Acute pharyngitis Res ults for this ANTIGEN SCREEN CLOTH ROLL WINDER procedure are in the results section. documented in this encounter Results BETA STREP FOLLOWUP (04/22/2014 1:16 PM CLOTH ROLL WINDER) [facility] Method Time Signature Source Throat HP CONVERSION Site HP CONVERSION Strep Screen No beta HP CONVERSION hemolytic Strep Group A isolated. Specimen (Source) Anatomical Collection Method Collection Time Re ceived Time Location / / Volume Laterality Throat: 04/22/2014 1:16 PM CLOTH ROLL WINDER Narrative HP CONVERSION - 04/23/2014 9:05 AM CLOTH ROLL WINDER Performed at [facility], [facility] [place] [address] Tong Lucas MD LAB_1 Performing Organization Address City/[facility] Code Phon e Number HP CONVERSION RAPID STREP GROUP A WAIVED (04/22/2014 8:32 AM CLOTH ROLL WINDER) Analysis Performed At [facility] Time Signature Strep A Negative Negative HP CONVERSION Antigen Strep A Source Throat: HP CONVERSION Specimen Anatomical Collection Method Collection Time Receive d Time (Source) Location / / Volume Laterality 04/22/2014 8:32 AM 5 1:15 [facility]ER PM [facility] Narrative HP CONVERSION - 04/22/2014 1:18 PM CLOTH ROLL WINDER Performed at [facility], [address] [place] [address] Tong Lucas MD LAB_1 Performing Organization Address City/[facility] Phon e Number HP CONVERSION documented in this encounter Visit Diagnoses Diagnosis Acute pharyngitis Lymphadenopathy Enlargement of lymph nodes Cough Acute asthma exacerbation ([facility]) Unspecified asthma, with exacerbation Triage Assessment Note - Ruben Ponce RN - 04/22/2014 8:27 AM CST Pt states she was dx with the flu on Friday and cough is not improving. Cough is productive at times. Now c/o bad sore throat. documented in this encounter Care Teams Principal Statistical Scientist Relationship Specialty Start Date End Date Rosalva Flores, FOOD SERVICE DRIVER, SPORTS LEADERSHIP INSTRUCTOR PCP - General 02/08/14 08/11/14 [address] [address] [place] [address] documented as of this encounter
--- OUTSIDE RECORDS SUMMARY | 2022-03-23 17:31 | XMS_ITS | Encounter Summary ---
:1980 Author Organization [facility] Address [address] [place] [address] Care Team Providers Name Role Phone Brigid Robb MD Primary Care Provider Reason for Visit Reason Comments FACIAL PAIN Encounter Details Date Type Department Care Team Description 01/06/2014 Hospital Encounter [facility] Che Ochoa, Juan cher-ae heights sinusitis Care PA-C [address] [address] [address] [facility] [phone] [place], [place] [id number] Social History Tobacco Use Types Packs/Day Years Used Date Smoking Tobacco: Never Assessed Sex Assigned at Date Recorded Not on file documented as of this encounter Last Filed Vital Signs Vital Sign Reading Time Taken Comments Blood Pressure 112/73 01/06/2014 9:09 AM CDT Pulse 87 01/06/2014 9:09 AM CDT Temperature 36.4 ??C (97.5 ??F) 01/06/2014 9:09 AM CDT Respiratory Rate 16 01/06/2014 9:09 AM CDT Oxygen Saturation - - Inhaled Oxygen Concentration - - Weight - - Height - - Body Mass Index - - documented in this encounter Medications at Time of Discharge Medication Sig Dispensed Refills Start Date End Date amoxicillin-clavulanate Take 1 tablet by 20 tablet 0 201301/16/2014 (aka AUGMENTIN) tablet mouth 2 times daily for 10 days. omeprazole (PRILOSEC) 20 Take 1 capsule by 60 capsule 0 08/1202/22/2014 MG capsule mouth 2 times daily. documented as of this encounter ED Notes Che Ochoa PA-C - 01/06/2014 9:20 AM CDT SUBJECTIVE: HPI: Lacey Nolasco is a 33 y.o. female who presents with concern for possible sinusitis. Symptoms began 2 weeks ago. States the symptoms started with a typical cold with runny nose and nasal congestion. Symptoms have been persistent. Now she has had sinus pressure/ pain. Nasal congestion is yellowish incolor. She will get approximately 2 sinus infections/ year with similar symptoms. Denies tooth pain.Both ears have been painful and plugged, left worse than the right. States she has had fevers, tmax 100, as recent as yesterday. Lacey Nolasco has been using ibuprofen and mucinex medications with minimal improvement. Family members have had colds recently. PMH: Past Medical History Diagnosis Date ??? Cervical radiculopathy at C6 ??? Endometriosis ??? Acne vulgaris ??? Headache(784.0) Medications: omeprazole Allergies: Allergies Allergen Reactions ??? Ambien Richi Blacks out Social History: History Social History ??? Marital Status: Spouse Name: rocio Number of Children: 1 ??? 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 Smoking status: Never Smoker ??? Smokeless tobacco: Not on file ??? Alcohol Use: 0.0 oz/week Comment: Alcoholic Drinks/day: ??? Drug Use: No ??? Sexual Activity: Partners: Male Control/ Protection: None Other Topics Concern ??? City Water Yes ??? Seat Belt Yes ??? Weight Concern Yes Social History Narrative ROS: review of systems otherwise unremarkable. OBJECTIVE: Filed Vitals: 01/06/14 0909 BP: 112/73 Pulse: 87 Temp: 36.4 ??C (97.5 ??F) TempSrc: Oral Resp: 16 General: Appears well and in NAD. Eyes: Full EOM, PERRLA, without lesions or injection. Nose: mild congested with out active discharge. Ears: Canals and TM's normal without lesions. Sinus: moderate TTP over frontal and maxillary sinuses. Pharynx: Moist mucous membranes without lesions, erythema, or exudate, with out injection or postnasal drainage. Tonsils within normal size. Uvula midline normal phonation. Airway intact. Neck: Supple, without masses, lymphadenopathy or tenderness. Respiratory: Normal respiratory effort. Lungs are clear with good breath sounds. Heart: RR withoutmurmurs, rubs, or gallops. ASSESSMENT: 1. Sinusitis. PLAN: Rx for augmentin 875mg bid x 10 days. Side effect profile reviewed. No signs of ear infection today. Likely the ear pain is due to sinus pressure/ infection. Sinusitis instruction card was given.Sinus irrigation (Neti Pot) was discussed with sterile [...] recognition software and may contain typographic errors. documented in this encounter Miscellaneous Notes Medication History - Eloy Vernon MD - 01/06/2014 9:20 AM CDT INPATIENT MEDS Encounter Date: 01/06/14 amoxicillin-clavulanate (AUGMENTIN) 875-125 mg per tablet Start Date:01/06/14, End Date:01/16/14, Frequency:2 TIMES DAILY *No Administrations Recorded documented in this encounter Plan of Treatment Not on filedocumented as of this encounter Visit Diagnoses Diagnosis Acute sinusitis Acute sinusitis, unspecified documented in this encounter Care Teams Concept Artist Relationship Specialty Start Date End Date Brigid Robb MD PCP - General 02/02/13 02/07/14 [address] [place] [address] documented as of this encounter
--- OUTSIDE RECORDS SUMMARY | 2022-03-23 17:31 | XMS_ITS | Encounter Summary ---
:1980 Author Organization [facility] Address [address] [place] [address] Care Team Providers Name Role Phone Rosalva Flores APRN, CNP Primary Care Provider Reason for Visit Reason Comments Patient Calling Back Encounter Details Date Type Department Care Team Description 01/20/2014 Telephone [facility] Rosalva Flores Pati ent Calling Back Medicine BONITA URBINA [address] [place] [address] [place] [address] [phone] (Wo rk) Social History Tobacco Use Types Packs/Day Years Used Date Smoking Tobacco: Never Assessed Sex Assigned at Date Recorded Not on file documented as of this encounter Nursing Notes Briana Fajardo MA - 01/27/2014 10:30 AM CDT Called back and asked if she has any risk factors and pt stated that she does not. So a PA will be needed, printed off form from web-site below, and completed the top portion the rest of the form needsto be filled out by the provider that will be preforming the mammogram. Called pt and asked where she was going to get it done and patient stated that she might get it done in [facility]. Pt wants form to be mail to her home so she can provided it to the mammogram place that she will go to. Mailed form to pt. Britta West - 01/27/2014 9:58 AM CDT pt [place] [phone],no answer-pt decline triage and requests nurse that called her to call her back Briana Fajardo MA - 01/25/2014 11:24 AM CDT Called insurance at to get information on what is needed insurance stated that it is covered for pt's age 40 for regular annual exams for mammograms or it is covered for 30 and older if there is a risk factor to why she is getting it earlier. Insurance provided web-site [employer] to get form from there to complete and fax. Called pt to ask if she had any risk factors and pt and got VM left message for pt to call back at [phone], [place] [phone]. Rosalva Flores APRN, CNP - 01/20/2014 2:19 PM CDT Briana, can you please ask the insurance company if this requires any special paperwork? YT Fariba Aguilar RN - 01/20/2014 2:07 PM CDT Action requested: mammogram authorization Additional Info: See below. Heber Villatoro - 01/20/2014 1:28 PM CDT Pt states she is getting breast lift done in February and has pre-op scheduled with Rosalva. States that she was recommended to get baseline mammogram done. Pt states she contacted insurance and it is normally not covered but was advised to have doctor send in authorization request for baseline mammogram. Wondering if Rosalva could get authorization request sent to insurance [facility]. documented in this encounter Plan of Treatment Not on filedocumented as of this encounter Visit Diagnoses Not on filedocumented in this encounter Care Teams Pulp Refiner Operator Relationship Specialty Start Date End Date Rosalva Flores, SHOWER ENCLOSURE INSTALLER, GAME BIRD FARMER PCP - General 02/08/14 08/11/14 [address] [place] [address] documented as of this encounter
--- OUTSIDE RECORDS SUMMARY | 2022-03-23 17:31 | XMS_ITS | Encounter Summary ---
:1980 Author Organization [facility] Address [address] [place] [address] Care Team Providers Name Role Phone Needs Pcp, Assignment Primary Care Provider Encounter Details Date Type Department Care Team Description 08/12/2014 Lab Visit [facility] [address] [place] [address] Social History Tobacco Use Types Packs/Day Years Used Date Smoking Tobacco: Never Assessed Sex Assigned at Date Recorded Not on file documented as of this encounter Plan of Treatment Not on filedocumented as of this encounter Procedures Procedure Name Priority Date/Time Associated Comments Diagnosis GLUCOSE Routine 08/12/2014 10:48 Fatigue Results for this AM CDT procedure are i n the results section. THYROID STIMULATING Routine 08/12/2014 10:48 Fatigue Resu lts for this HORMONE AM CDT procedure are i n the results section. COMPLETE BLOOD Routine 08/12/2014 10:48 Fatigue Results f or this COUNT-W/DIFF AM CDT procedure are i n the results section. DIFFERENTIAL Routine 08/12/2014 10:48 Results for this AM CDT procedure are i n the results section. documented in this encounter Results Differential (08/12/2014 10:48 AM CDT) Analysis Performed At Patho logist Time Signature Absolute 4.2 1.8 - 8.0 HP CONVERSION Neutrophils k/cmm Absolute 1.4 1.1 - 4.0 HP CONVERSION Lymphocytes k/cmm Absolute 0.5 0.2 - 0.8 HP CONVERSION Monocytes k/cmm Absolute 0.1 0.0 - 0.5 HP CONVERSION Eosinophils k/cmm Absolute 0.0 0.0 - 0.2 HP CONVERSION Basophils k/cmm Immature 0.5 0.0 - 0.5 HP CONVERSION Granulocytes % Specimen Anatomical Collection Method Collection Time Receive d Time (Source) Location / / Volume Laterality 08/12/2014 10:48 08/12/2014 AM CDT 10:48 AM CDT Narrative HP CONVERSION - 08/12/2014 11:04 AM CDT Performed at [facility], [address] [place] [address] Mecca Pugh MD LAB_1 Performing Organization Address City/[facility] Phon e Number HP CONVERSION THYROID STIMULATING HORMONE (08/12/2014 10:48 AM CDT) athologist Signature Thyroid 2.02 0.20 - HP CONVERSION Stimulating 4.50 mIU/L Hormone Specimen Anatomical Collection Method Collection Time Receive d Time (Source) Location / / Volume Laterality 08/12/2014 10:48 08/12/2014 3:40 AM CDT PM CDT Narrative HP CONVERSION - 08/12/2014 4:26 PM CDT [place] [address] Mecca Pugh MD LAB_1 Performing Organization Address [facility] Code Phon e Number HP CONVERSION GLUCOSE (08/12/2014 10:48 AM CDT) athologist Signature Lab Glucose 74 60 - 100 HP CONVERSION mg/dL Specimen Anatomical Collection Method Collection Time Receive d Time (Source) Location / / Volume Laterality 08/12/2014 10:48 08/12/2014 AM CDT 10:48 AM CDT Narrative HP CONVERSION - 08/12/2014 11:52 AM CDT Performed at [facility], [address] [place] [address] Mecca Pugh MD LAB_1 Performing Organization Address City/[facility] Code Phon e Number HP CONVERSION Complete Blood Count W/Diff (08/12/2014 10:48 AM CDT) athologist Signature White Blood Cell 6.3 3.8 - 11.0 HP CONVERSIO N Count k/cmm Red Blood Cell 4.76 3.70 - HP CONVERSION Count 5.20 m/cmm Hemoglobin 13.8 11.8 - HP CONVERSION 15.5 g/dL Hematocrit 41.7 35.0 - HP CONVERSION 46.0 % Mean Corpuscular 87.6 80.0 - HP CONVERSION Volume 100.0 fL RDW 14.5 11.0 - HP CONVERSION 15.0 % Platelet Count 213 140 - 450 HP CONVERSION k/cmm Specimen Anatomical Collection Method Collection Time Receive d Time (Source) Location / / Volume Laterality 08/12/2014 10:48 08/12/2014 AM CDT 10:48 AM CDT Narrative HP CONVERSION - 08/12/2014 11:04 AM CDT Performed at [facility], [address] [facility], [place] [address] Mecca Pugh MD LAB_1 Performing Organization Address City/State/ZIP Code Phon e Number HP CONVERSION documented in this encounter Visit Diagnoses Diagnosis Fatigue Other malaise and fatigue documented in this encounter Care Teams Pega Developer Relationship Specialty Start Date End Date Needs Pcp, Assignment PCP - General 08/12/14 [place] [address] documented as of this encounter
--- OUTSIDE RECORDS SUMMARY | 2022-03-23 17:31 | XMS_ITS | Encounter Summary ---
:1980 Author Organization [facility] Address [address] [address] Care Team Providers Name Role Phone Rosalva Flores APRN, CNP Primary Care Provider Encounter Details Date Type Department Care Team Description 04/02/2014 Hospital Encounter [facility] [place] [address] [place] [address] Social History Tobacco Use Types Packs/Day Years Used Date Smoking Tobacco: Never Assessed Sex Assigned at Date Recorded Not on file documented as of this encounter Plan of Treatment Not on filedocumented as of this encounter Visit Diagnoses Not on filedocumented in this encounter Care Teams Corporate Lawyer Relationship Specialty Start Date End Date Rosalva Flores APRN, BEAUTY CULTURIST PCP - General 02/08/14 08/11/14 [address] [facility] [place] [id number] documented as of this encounter
--- OUTSIDE RECORDS SUMMARY | 2022-03-23 17:31 | XMS_ITS | Encounter Summary ---
:1980 Author Organization [facility] Address [address] [address] Care Team Providers Name Role Phone Rosalva Flores APRN, BONITA Primary Care Provider Reason for Visit Reason Comments PRE-OP EXAM Encounter Details Date Type Department Care Team Description 02/22/2014 Pre-Op Visit [facility] Rosalva Flores, Preo perative Medicine BONITA URBINA examination (Primary [address] [place]x) [place] [address] [place], [place] [phone] [address] Social History Tobacco Use Types Packs/Day Years Used Date Smoking Tobacco: Never Assessed Sex Assigned at Date Recorded Not on file documented as of this encounter Last Filed Vital Signs Vital Sign Reading Time Taken Comments Blood Pressure 100/70 02/22/2014 9:09 AM SUPERVISING CHEF Pulse 88 02/22/2014 9:09 AM SUPERVISING CHEF Temperature 37.2 ??C (99 ??F) 02/22/2014 9:09 AM SUPERVISING CHEF Respiratory Rate 16 02/22/2014 9:09 AM SUPERVISING CHEF Oxygen Saturation - - Inhaled Oxygen Concentration - - Weight 84.4 kg (186 lb) 02/22/2014 9:09 AM SUPERVISING CHEF Height 166.4 cm (5' 5.5) 02/22/2014 9:09 AM SUPERVISING CHEF Body Mass Index 30.48 02/22/2014 9:09 AM SUPERVISING CHEF documented in this encounter Patient Instructions Patient InstructionsRosalva Flores APRN, CNP - 02/22/2014 9:21 AM SUPERVISING CHEF Body mass index is 30.47 kg/(m^2). 1. Please follow your surgeon's instructions for eating and drinking restrictions prior to surgery. 2. Please refrain from taking aspirin or Ibuprofen products up to 7 days prior to surgery. Tylenol is ok for pain. 3. Today we are checking a complete blood count, and will send you the results on [facility]. RVISING CHEF documented in this encounter OR Notes H&P - Rosalva Flores APRN, CNP - 02/22/2014 10:14 AM CST PREOPERATIVE ASSESSMENT Date of : 1980 Age: 33 y.o. Sex: female Preoperative Evaluation completed by: ARIELLA Silva Primary care physician: ARIELLA Silva [phone] CHIEF COMPLAINT Pre-Operative Evaluation ANTICIPATED PROCEDURE Bilateral breast lift and augmentation on at [facility] with Dr. Nava HISTORY OF PRESENT ILLNESS 33 year old female presents to the clinic for a preoperative examination. She has no questions or concerns regarding her upcoming procedure. Risk Factors/Review of Systems: (Please see flowsheets for details) Cardiovascular risks negative. Renal risks negative. Neuro risks negative. GI risks negative. Pulmonary risks negative. Endocrine/Nutrition risks negative. Hematologic Disease risks negative. Musculoskeletal/Skin risks negative. Mental Health risks negative except for: Delirium risk: blacked out with taking Ambien Other risk factors negative except for: Intra-abdominal or intra-thoracic disorders, potential blood loss, total joint replacement: yes, CBCordered Past history of anesthesia complications: excessive nausea in post operative period to the extent that she had to be re admitted Complete review of systems is otherwise negative. Past Medical History Diagnosis Date ??? Cervical radiculopathy at C6 ??? Endometriosis ??? Acne vulgaris ??? Headache(784.0) Past Surgical History Procedure Laterality Date ??? Tonsillectomy and adenoidectomy LW Problem: Tonsillectomy & Adenoidectomy S/p LW Onset: 1983 ??? [place] tooth extraction ??? Pr endometrial ablation, thermal 04/27/13 Path benign Family History Problem Relation Age of Onset ??? CAD Father ??? Heart Disease Father ??? High Cholesterol Mother ??? Migraines Mother ??? High Cholesterol Maternal Grandmother History Social History ??? Marital Status: Spouse [...] ??? Weight Concern Yes Social History Narrative No current outpatient prescriptions on file. No current facility-administered medications for this visit. Allergies Allergen Reactions ??? Ambien Richi Blacks out PHYSICAL EXAMINATION Temp: 37.2 ??C (99 ??F) (02/22/14908) Pulse: 88 (02/22/14908) Resp: 16 (02/22/14908) BP: 100/70 mmHg (02/22/14908) Height: 166.4 cm (5' 5.5) (02/22/14908) Weight: 84.369 kg (186 lb) (02/22/14908) BMI (Calculated): 30.55 (02/22/14908) General Appearance: Normal HEENT: Normal Neck: Normal Lungs: Normal Heart: Abdomen: Normal Normal Extremities: Normal Skin: Normal Neurologic: Normal TEST RESULTS AND DATE EKG done: No Labs done: Today: 02/22/2014. Hemoglobin 14.3, Platelets: 231. ASSESSMENT 1. Preoperative Assessment: This patient has been examined by me today and has been found to be a suitable candidate for surgery: Yes RECOMMENDATIONS AND PLAN Day of surgery testing: none Medication recommendations: See below. Medication Adjustment Recommendations - You should take ALL medications on the day of surgery EXCEPT: ?? Aspirin - hold 7 days Patient Instructions Body mass index is 30.47 kg/(m^2). 1. Please follow your surgeon's instructions for eating and drinking restrictions prior to surgery. 2. Please refrain from taking aspirin or Ibuprofen products up to 7 days prior to surgery. Tylenol is ok for pain. 3. Today we are checking a complete blood count, and will send you the results on [facility]. Additional screening recommended: no Consult (Cardiology/other): no Additional test results attached: none Beta argelia protocol ordered: no Insulin/Diabetes orders initiated: no Continuous O2 Sat monitoring post op orders initiated: no Other: no ABOVE RECOMMENDATIONS WERE REVIEWED WITH PATIENT: yes ARIELLA Silva 02/22/2014 RVISING CHEF documented in this encounter Plan of Treatment Not on filedocumented as of this encounter Visit Diagnoses Diagnosis Preoperative examination - Primary Preoperative examination, unspecified documented in this encounter Care Teams Manufacturing Storeperson Relationship Specialty Start Date End Date Rosalva Flores APRN, BONITA PCP - General 02/08/14 08/11/14 [address] [place] [address] documented as of this encounter
--- OUTSIDE RECORDS SUMMARY | 2022-03-23 17:31 | XMS_ITS | Encounter Summary ---
:1980 Author Organization [facility] Address [address] [place] [address] Care Team Providers Name Role Phone Needs Pcp, Assignment Primary Care Provider Reason for Visit Reason Comments Sinus Problem Headache VISION, DOUBLE Encounter Details Date Type Department Care Team Description 08/12/2014 Office Visit [facility] Mecca Pugh Fatig ue (Primary Dx); Medicine Headache(784.0); [address] [place] [address] [facility] [address] [place] [address] Social History Tobacco Use Types Packs/Day Years Used Date Smoking Tobacco: Never Assessed Sex Assigned at Date Recorded Not on file documented as of this encounter Last Filed Vital Signs Vital Sign Reading Time Taken Comments Blood Pressure 100/76 08/12/2014 10:09 AM CDT Pulse 70 08/12/2014 10:09 AM CDT Temperature 37.1 ??C (98.8 ??F) 08/12/2014 10:09 AM CDT Respiratory Rate - - Oxygen Saturation - - Inhaled Oxygen Concentration - - Weight 86 kg (189 lb 8 oz) 08/12/2014 10:09 AM CDT Height 167.6 cm (5' 6) 08/12/2014 10:09 AM CDT Body Mass Index 30.59 08/12/2014 10:09 AM CDT documented in this encounter Progress Notes Mecca Pugh MD - 08/12/2014 7:29 PM CDT This note was generated using voice activated district leader software and may contain typographical errors SUBJECTIVE: Lacey Glovere34 y.o. pleasant female came here today for WELLINGTON and double vision She has been having Headache on and off for 6 month. she thought that was her sinus WELLINGTON, she had Abx,ad natti pot did not go away. she saw dobule vision over a month and constant. felt exhausted over 2weeks. Her sleeping is ok, she has 2 kids, and eating not great, no exercise. she has one 2 year old, and 9 year old. goes to bed early, and she sleeps good, but still felt exhausted after waking up. she works at [employer]. some stress. she she describes her WELLINGTON as fontal headace,pain scale varies, and 6/10, sometime gets bad over 9/10 and helps if she lying down in the dark room. tried OTC and did nto help. she is not taking anyting at [facility], but has been using her Natti pot she had eye exam , and it was ok. she denies any N/V and no weakness, and no tingling, no numbness, and no neuro change. she had ablation done, she usually doesn't get her period and she was not sure if her sympotms couldbe related to her hormone changes Patient Active Problem List Diagnosis ??? Herpes Simplex NOS ??? Dysmenorrhea ??? DJD (degenerative joint disease) of cervical spine ??? Supervision of normal subsequent ??? Generalized headaches Past Surgical History Procedure Laterality Date ??? Tonsillectomy and adenoidectomy LW Problem: Tonsillectomy & Adenoidectomy S/p LW Onset: 1983 ??? [place] tooth extraction ??? Pr endometrial ablation, thermal 04/27/13 Path benign ??? Cervical disc surgery 2011 No current outpatient prescriptions on file prior to visit. No current facility-administered medications on file prior to visit. History Social History ??? Marital Status: Spouse [...] Social History Narrative Allergies Allergen Reactions ??? Ambien Richi Blacks out Family History Problem Relation Age of Onset ??? CAD Father ??? Heart Disease Father ??? High Cholesterol Mother ??? Migraines Mother ??? High Cholesterol Maternal Grandmother ROS All of the systems reviewed, unremarkable, except that mentioned in HPI BP 100/76 Pulse 70 Temp(Src) 37.1 ??C (98.8 ??F) (Oral) Ht 1.676 m (5' 6) Wt 85.957 kg (189lb 8 oz) BMI 30.60 kg/m2 Objective: General Appearance: Alert, cooperative, no distress, appears stated age Head: Normocephalic, without obvious abnormality, atraumatic Eyes: PERRL, conjunctiva/corneas clear, EOM's intact, fundi benign, both eyes Ears: Normal TM's and external ear canals, both ears Nose: Nares normal, septum midline, mucosa normal, [...] Cervical, supraclavicular, and axillary nodes normal Neurologic: CNII-XII intact, normal strength, sensation and reflexes throughout Assessment: Diagnosis (ICD9) and Associated Orders ICD-9-CM ICD-10-CM 1. Fatigue 780.79 R53.83 Complete Blood Count W/Diff Glucose Thyroid Stimulating Hormone XR Chest * PA and Left Lateral (Standard) 2. Headache(784.0) 784.0 R51 MR Brain W/WO 3. Double vision 368.2 H53.2 MR Brain W/WO Plan: Lacey was seen today for sinus problem, headache and diplopia. Diagnoses and associated orders for this visit: Fatigue - Complete Blood Count W/Diff; Future - Glucose; Future - Thyroid Stimulating Hormone; Future - XR Chest * PA and Left Lateral (Standard); Future Headache(784.0) - MR Brain W/WO; Future Double vision - MR Brain W/WO; Future she was encouraged to start exercise regularly and eating better. I also discuss on the treatment with medicaiton for chronic WELLINGTON, and she prefer not to take any medsicaiton due to her work, I suggest we can try acupuncture or chiropractor Mecca Pugh MD 7:19 PM 08/12/2014 documented in this encounter Plan of Treatment Not on filedocumented as of this encounter Visit Diagnoses Diagnosis Fatigue - Primary Other malaise and fatigue Headache(784.0) Headache Double vision Diplopia documented in this encounter Care Teams Senior Construction Manager Relationship Specialty Start Date End Date Needs Pcp, Assignment PCP - General 08/12/14 [place] [address] documented as of this encounter
--- OUTSIDE RECORDS SUMMARY | 2022-03-23 17:31 | XMS_ITS | Encounter Summary ---
:1980 Author Organization [facility] Address [address] [place] [address] Care Team Providers Name Role Phone BruleRosalva APRN, BONITA Primary Care Provider Reason for Visit Reason Comments NAIL PROBLEM Encounter Details Date Type Department Care Team Description 07/11/2014 Office Visit [facility] Mecca Pugh Contu sion of great toe Medicine MD with damage to nail, [address] [facility], [place] [address] encounter (Primary Dx) [phone] [place] [address] Social History Tobacco Use Types Packs/Day Years Used Date Smoking Tobacco: Never Assessed Sex Assigned at Date Recorded Not on file documented as of this encounter Last Filed Vital Signs Vital Sign Reading Time Taken Comments Blood Pressure 100/70 07/11/2014 10:07 AM CDT Pulse 72 07/11/2014 10:07 AM CDT Temperature - - Respiratory Rate - - Oxygen Saturation - - Inhaled Oxygen Concentration - - Weight 86.4 kg (190 lb 8.9 oz) 07/11/2014 10:07 AM CDT Height - - Body Mass Index 30.76 04/20/2014 2:58 PM AREA MANAGER documented in this encounter Patient Instructions Patient InstructionsMecca Pugh MD - 07/11/2014 10:16 AM CDT Please call the Podiatry dept. at [phone] to schedule your appointment. documented in this encounter Progress Notes Mecca Pugh MD - 07/11/2014 10:23 AM CDT This note was generated using voice activated lead ios developer software and may contain typographical errors SUBJECTIVE: Lacey Patton IaXmrl20 y.o. pleasant female, here today concerning left big toenails damage. she had some heavy object fell on her left big toe 2 years ago, and cause black toe nail, and it hasnever got away, actually, has been getting worse over years. the black and green color is extending through the nail. Patient has no pain no erythema. No fever no discharge of the toenails. Patient Active Problem List Diagnosis ??? Herpes Simplex NOS ??? Dysmenorrhea ??? DJD (degenerative joint disease) of cervical spine ??? Supervision of normal subsequent ??? Generalized headaches Past Surgical History Procedure Laterality Date ??? Tonsillectomy and adenoidectomy LW Problem: Tonsillectomy & Adenoidectomy S/p LW Onset: 1983 ??? [place] tooth extraction ??? Pr endometrial ablation, thermal 04/27/13 Path benign Current Outpatient Prescriptions on File Prior to Visit Medication Sig Dispense Refill ??? [DISCONTINUED] dexamethasone (DECADRON) 4 mg tablet Take 1 tablet by mouth 2 times daily (with meals). 2 tabs po qd every three days as needed 6 tablet 0 ??? [DISCONTINUED] guaiFENesin-codeine (GUAIFENESIN AC) 100-10 mg/5 mL liquid Take 5-10 mLs by mouthevery 4 hours as needed for Cough. Do not drive within 8 hours of taking this medication. 120 mL 0 ??? [DISCONTINUED] HYDROcodone-acetaminophen (NORCO) 5-325 mg per tablet Take 1- 2 tablets by mouth every 6 hours as needed for Pain. 15 tablet 0 No current facility-administered medications on file prior [...] unremarkable, except that mentioned in HPI BP 100/70 Pulse 72 Wt 86.437 kg (190 lb 9 oz) Objective: left tone nail: big toe nail 80% black and green Assessment: Diagnosis (ICD9) and Associated Orders ICD-9-CM ICD-10-CM 1. Contusion of great toe with damage to nail, right, initial encounter 924.3 S90.211A PODIATRY CONSULT ADULT (AMB) Plan: Contusion of great toe with damage to nail, right, initial encounter - PODIATRY CONSULT ADULT (AMB); Future Mecca Pugh MD 10:21 AM 07/11/2014 documented in this encounter Plan of Treatment Not on filedocumented as of this encounter Visit Diagnoses Diagnosis Contusion of great toe with damage to na il, right, initial encounter - Primary documented in this encounter Care Teams Upholstery Technician Relationship Specialty Start Date End Date Rosalva Flores, DOCUMENT COORDINATOR, ALGORITHM DEVELOPER PCP - General 02/08/14 08/11/14 [address] [address] [address] documented as of this encounter
--- OUTSIDE RECORDS SUMMARY | 2022-03-23 17:31 | XMS_ITS | Encounter Summary ---
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) [address] [address] [place] [address] [phone] Social History Tobacco Use Types Packs/Day Years Used Date Smoking Tobacco: Never Assessed Sex Assigned at Date Recorded Not on file documented as of this encounter Last Filed Vital Signs Vital Sign Reading Time Taken Comments Blood Pressure 110/78 04/18/2014 8:19 AM PUBLIC WORKS DIRECTOR Pulse 96 04/18/2014 8:19 AM PUBLIC WORKS DIRECTOR Temperature 36.8 ??C (98.2 ??F) 04/18/2014 8:19 AM PUBLIC WORKS DIRECTOR Respiratory Rate 16 04/18/2014 8:19 AM PUBLIC WORKS DIRECTOR Oxygen Saturation 98% 04/18/2014 8:19 AM PUBLIC WORKS DIRECTOR Inhaled Oxygen Concentration - - Weight - - Height - - Body Mass Index - - documented in this encounter Medications at Time of Discharge Medication Sig Dispensed Refills Start Date End Date dextromethorphan-guaiFENe Take 1 tablet by 0 08/201404/20/2014 sin (aka MUCINEX DM) mouth 2 times daily. 30-600 MG TB12 documented as of this encounter ED Notes Umu Thomas MD - 04/18/2014 9:12 AM CST ED Provider Notes signed by Umu Thomas MD at 04/20/142128 Author: Umu Thomas MD Service: (none) Author Type: Physician Filed: 04/20/142128 Note Time: 04/18/14 1155 Status: Signed Driver Starting Gate: Umu Thomas MD (Physician) NAME: SHAMIR NOLASCO MR#: [id number] CSN: [id number] AUTHENTICATING CLINICIAN: Umu Thomas MD CONFIRM #: [id number] LOC: [facility]RG[facility]ARE PROGRESS NOTE DATE OF VISIT: 04/18/2014 : 1980 SUBJECTIVE: A 34-year-old female who comes in complaining of symptoms for the last week and a half of cough coldrunny nose, sore throat, mild headache, no fever. She thought she was getting better last week, and then, Friday, 3 days ago, she developed body aches, fatigue, headache, runny nose, sore throat, and fever to 102 with a cough that is nonproductive. She is worried about a pneumonia. She thinks she probably has influenza. She was vaccinated last fall. She has 2 children at home. One is under the age of2, the other is over the age of 2. They are immunized also. The patient works for the [employer]. Denies any tobacco abuse. No history of respiratory problems, not a diabetic. No immunosuppressive disorders. She has been using OTC meds for this. Denies any chest pain or shortness of breath. PAST MEDICAL HISTORY: Noted in Epic. MEDICATIONS: Noted in Epic. ALLERGIES: Noted in Epic. EXAM: Blood pressure 110/78, pulse 96, respirations 16, temp 98.3. O2 saturations 98% on room. Well-developed, well-nourished female, in no acute distress. Resting comfortably. Speaking in full sentences. Head is atraumatic, normocephalic. Pupils equal and reactive to light and accommodation. Conjunctivae and sclerae are noninjected. TMs are normal. Nares are patent. Oropharynx is normal. NECK: Supple, without lymphadenopathy or thyromegaly. LUNGS: Clear to auscultation bilaterally. No wheezes, rales, or rhonchi. CARDIAC: Regular rate and rhythm. S1, S2. No murmurs, rubs, or gallops appreciated. ASSESSMENT: Influenza A. PLAN: I offered to test her, she declined. We talked about treating influenza A. She needs to call her children's funeral limousine driver to determine if they want to put them on preventive therapy, and she will make that phone call. Discharge instructions were given, and specifically to quarantine herself until she is improved. She is outside the window of time to treat for Tamiflu, she understands. Follow up p.r.n. MKB:MEDQ C: CONFIRM #: [id number] IC WORKS DIRECTOR documented in this encounter Miscellaneous Notes Medication History - Eloy Vernon MD - 04/18/2014 8:52 AM CST INPATIENT MEDS Encounter Date: 04/18/14 dextromethorphan-guaiFENesin (MUCINEX DM) 30-600 mg per tablet Start Date:-, End Date:04/20/14, Frequency:2 TIMES DAILY *No Administrations Recorded IC WORKS DIRECTOR ED AVS Snapshot - Eloy Vernon MD - 04/18/2014 8:52 AM CST Images from the original note were not included. [facility] [address] [place] [address] Dept: [phone] [email or web address] Shamir Nolasco 04/18/2014 8:21 AM Hospital Encounter Description: Female : 1980 Department: [facility] Thank you for choosing [facility] for your health care visit with Umu Thomas MD.We are happy to care for you and provide this summary of your visit. Your primary post anesthesia care unit nurse is currently listed as Rosalva Flores, CARLITOS, CRUISE STAFF MEMBER. HERE IS WHAT YOU NEED TO KNOW To learn how you can take steps to stay as healthy as you can be visit [email or web address] Discharge Instructions Influenza (Flu): After Your Visit Your Care Instructions Influenza (flu) is an infection in the lungs and breathing passages. It is caused by the influenza virus. There are different strains, or types, of the flu virus from year to year. Unlike the common cold, the flu comes on suddenly and the symptoms, such as a cough, congestion, fever, chills, fatigue, aches, and pains, are more severe. These symptoms may last up to 10 days. Although the flu can make you feel very sick, it usually doesn't cause serious health problems. Home treatment is usually all you need for flu symptoms. But your doctor may prescribe antiviral medicine to prevent other health problems, such as pneumonia, from developing. Older people and those who have a long-term health condition, such as lung disease, are most at risk for having pneumonia or other health problems. Follow-up care is a castellanos part of your treatment and safety. Be sure to make and go to all appointments, and call your doctor if you are having problems. It???s also a good idea to know your test resultsand keep a list of the medicines you take. How can you care for yourself at home? ?? Get plenty of rest. ?? Drink plenty of fluids, enough so that your urine is light yellow or clear like water. If you have kidney, heart, or liver disease and have to limit fluids, talk with your doctor before you increasethe amount of fluids you drink. ?? Take an cuuc-nnz-jmqlqzk pain medicine if needed, such as acetaminophen (Tylenol), ibuprofen (Advil, Motrin), or naproxen (Aleve), to relieve fever, headache, and muscle aches. Read and follow all instructions on the label. No one younger than 20 should take aspirin. It has been linked to Christa syndrome, a serious illness. ?? Do not smoke. Smoking can make the flu worse. If you need help quitting, talk to your doctor about stop-smoking programs and medicines. These can increase your chances of quitting for good. ?? Breathe moist air from a hot shower or from a sink filled with hot water to help clear a stuffy nose. ?? Before you use cough and cold medicines, check the label. These medicines may not be safe for young children or for people with certain health problems. ?? If the skin around your nose and lips becomes sore, put some petroleum jelly on the area. ?? To ease coughing: ?? Drink fluids to soothe a scratchy throat. ?? Suck on cough drops or plain hard candy. ?? Take an vgip-sue-fgoxrke cough medicine that contains dextromethorphan to help you get some sleep. Read and follow all instructions on the label. ?? Raise your head at night with an extra pillow. This may help you rest if coughing keeps you awake. ?? Take any prescribed medicine exactly as directed. Call your doctor if you think you are having a problem with your medicine. To avoid spreading the flu ?? Wash your hands regularly, and keep your hands away from your face. ?? Stay home from school, work, and other public places until you are feeling better and your fever has been gone for at least 24 hours. The fever needs to have gone away on its own without the help ofmedicine. ?? Ask people living with you to talk to their doctors about preventing the flu. They may get antiviral medicine to keep from getting the flu from you. ?? To prevent the flu in the future, get a flu vaccine every fall. Encourage people living with you to get the vaccine. ?? Cover your mouth when you cough or sneeze. When should you call for help? Call 911 anytime you think you may need emergency care. For example, call if: ?? You have severe trouble breathing. Call your doctor now or seek immediate medical care if: ?? You have new or worse trouble breathing. ?? You seem to be getting much sicker. ?? You feel very sleepy or confused. ?? You have a new or higher fever. ?? You get a new rash. Watch closely for changes in your health, and be sure to contact your doctor if: ?? You begin to get better and then get worse. ?? You are not getting better after 1 week. Where can you learn more? Go to [employer] and enter L652 in the search box. Current as of: November 17, 2012 Content Version: 10.2 ?? 8325-1382 [employer]. HERE IS WHAT YOU NEED TO DO Call your clinic if you develop new or worsening symptoms or if you have questions about your visit or medications. Your to do list Future Orders Complete By Ordering Dept. Ambulatory referral to ENT As directed [facility] Ambulatory referral to Perinatology/Genetic Counseling As directed [facility] Colonoscopy As directed [facility] EGD As directed [facility] HERE IS INFORMATION FROM TODAY'S VISIT Reason for Visit URI (COLD) Reason for Visit History Health issues considered by your clinician today Influenza A - Primary If you had any tests, you will be notified of your abnormal results by your clinic. Medications administered today None MEDICATIONS As of today's visit, these are your current medications Medication DOSAGE dextromethorphan-guaiFENesin (MUCINEX DM) 30-600 mg per tablet (Taking) Take 1 tablet by mouth 2 times daily. Vital signs from your visit Your Vitals Were BP Pulse Temp(Src) Resp SpO2 110/78 96 36.8 ??C (98.3 ??F) (Oral) 16 98% Allergies as of 04/18/2014 Deejay Stoddard 04/03/2011 Blacks out Immunization History Reviewed on 08/30/2013 Fluzone Influenza QIV (36+ mos) 01/15/2013 INFLUENZA TIV 0.5 ML (36+ MOS) 01/26/2011 Td Adult (>7 years) 04/12/2004 About You Date Of Sex Race Ethnicity Preferred Language 1980 Female White Non- Japanese This document contains confidential information about your health and care. It is provided directlyto you for your personal, private use only. IC WORKS DIRECTOR documented in this encounter Plan of Treatment Not on filedocumented as of this encounter Visit Diagnoses Diagnosis Influenza A - Primary Influenza with other respiratory manifes tations Triage Assessment Note - eXnia Morgan RN - 04/18/2014 8:19 AM CST states she has been ill for a couple weeks. states she was seen for sinus infection and was on antibiotics for 10 days, felt better and now symptoms are worse again. has sinus pain and congestion, dry cough, fever, chills, body aches, headaches and fatigue. also has pain in both ears. documented in this encounter Care Teams Senior Php Web Developer Relationship Specialty Start Date End Date Rosalva Flores APRN, CRUISE STAFF MEMBER PCP - General 02/08/14 08/11/14 [address] [place] [address] documented as of this encounter
--- OUTSIDE RECORDS SUMMARY | 2022-03-23 17:31 | XMS_ITS | Encounter Summary ---
:1980 [facility] Address [address] [address] Care Team Providers Name Role Phone Brigid Robb MD Primary Care Provider Reason for Visit Reason Comments Cough CONGESTION, NASAL Encounter Details Date Type Department Care Team Description 09/12/2013 Hospital Encounter [facility] Ac ute pharyngitis (Primary Dx); Care PA-C Acute sinusitis, unspecified [address] [address] [place] [address] [phone] Social History Tobacco Use Types Packs/Day Years Used Date Smoking Tobacco: Never Assessed Sex Assigned at Date Recorded Not on file documented as of this encounter Last Filed Vital Signs Vital Sign Reading Time Taken Comments Blood Pressure 104/68 09/12/2013 9:21 AM CDT Pulse 67 09/12/2013 9:21 AM CDT Temperature 36.8 ??C (98.2 ??F) 09/12/2013 9:21 AM CDT Respiratory Rate 16 09/12/2013 9:21 AM CDT Oxygen Saturation 99% 09/12/2013 9:21 AM CDT Inhaled Oxygen Concentration - - Weight - - Height - - Body Mass Index - - documented in this encounter Medications at Time of Discharge Medication Sig Dispensed Refills Start Date End Date amoxicillin-clavulanate Take 1 tablet by 20 tablet 0 201309/22/2013 (aka AUGMENTIN) tablet mouth 2 times daily for 10 days. omeprazole (PRILOSEC) 20 Take 1 capsule by 60 capsule 0 08/1202/22/2014 MG capsule mouth 2 times daily. documented as of this encounter ED Notes Pham May PA-C - 09/12/2013 9:45 AM CDT SUBJECTIVE:Lacey Nolasco is a 33 y.o. female presents for cold symptoms that have not gone away now for 1-1/2 weeks. She's also developed a dry cough. She's nasal congestion and sinus pain in the maxillary sinuses. Patient Active Problem List Diagnosis ??? Herpes Simplex NOS ??? Dysmenorrhea ??? DJD (degenerative joint disease) of cervical spine ??? Supervision of normal subsequent ??? Generalized headaches History Social History ??? Marital Status: Spouse Name: rocio Number of Children: 1 ??? 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 Smoking status: Never Smoker ??? Smokeless tobacco: Not on file ??? Alcohol Use: 0.0 oz/week Comment: Alcoholic Drinks/day: ??? Drug Use: No ??? Sexually Active: Not Currently -- Male partner(s) Control/ Protection: None Other Topics Concern ??? City Water Yes ??? Seat Belt Yes ??? Weight Concern Yes Social History Narrative ??? No narrative on file No current facility-administered medications on file prior to encounter. Current Outpatient Prescriptions on File Prior to Encounter Medication Sig Dispense Refill ??? omeprazole (PRILOSEC) 20 mg capsule Take 1 capsule by mouth 2 times daily. 60 capsule 0 Allergies Allergen Reactions ??? Deejay Stoddard Blacks out OBJECTIVE: BP 104/68 Pulse 67 Temp(Src) 36.8 ??C (98.2 ??F) (Oral) Resp 16 SpO2 99%. General: Appears well and in NAD. Nose: mildly congested with prulent discharge . sinuses mildly tender. Ears: Canals and TM's normal without lesions. Pharynx: Moist mucous membranes without lesions, erythema, or exudate. . Neck: Supple, without masses, lymphadenopathy or tenderness. Respiratory: Normal respiratory effort. Lungs are clear with good breath sounds. Heart: RR without murmurs, rubs, or gallops. Labs: Results No Results found for the last 24 hours. ASSESSMENT: Acute Sinusitis PLAN: Rx for Discharge Medication List as of 09/12/2013 9:43 AM START taking these medications Details amoxicillin-clavulanate (AUGMENTIN) 875-125 mg per tablet Take 1 tablet by mouth 2 times daily for 10 days.Disp-20 tablet, R-0, Normal . nutrious fluids was discussed and symptomatic treatment . probiotics recommende.RTC PRN if not gradually improving. The patient was discharged ambulatory and in stable condition. *SH~DNS~Sinusitis documented in this encounter Miscellaneous Notes Miscellaneous - 09/12/2013 9:45 AM CDTNotes Recorded by Pham May PA-C on 09/13/2013 at 12:50 Shelli May PA-C 12:50 PM 09/13/2013 CIPAL STATISTICAL PROGRAMMER Miscellaneous - 09/12/2013 9:45 AM CDTNotes Recorded by Pham May PA-C on 09/13/2013 at 12:50 Shelli May PA-C 12:50 PM 09/13/2013 Medication History - Eloy Vernon MD - 09/12/2013 9:45 AM CDT INPATIENT MEDS Encounter Date: 09/12/13 amoxicillin-clavulanate (AUGMENTIN) 875-125 mg per tablet Start Date:09/12/13, End Date:09/22/13, Frequency:2 TIMES DAILY *No Administrations Recorded documented in this encounter Plan of Treatment Not on filedocumented as of this encounter Procedures Procedure Name Priority Date/Time Associated Diagnosis Comme nts BETA STREP FOLLOWUP Routine 09/12/2013 12:08 PM R esults for this CDT procedure are i n the results section. GROUP A STREP STAT 09/12/2013 9:23 AM Acute pharyngitis Res ults for this ANTIGEN SCREEN CDT procedure are in the results section. documented in this encounter Results BETA STREP FOLLOWUP (09/12/2013 12:08 PM CDT) [facility] gist Method Time Signature Source Throat HP CONVERSION Site HP CONVERSION Strep Screen No beta HP CONVERSION hemolytic Strep Group A isolated. Specimen (Source) Anatomical Collection Method Collection Time Re ceived Time Location / / Volume Laterality Throat: 09/12/2013 12:08 PM CDT Transcriptions 09/12/2013 9:45 AM CDTNotes Recorded by Pham May PA-C on 09/13/2013 at 12:50 Shelli May PA-C 12:50 PM 09/13/2013 Tong Lucas MD LAB_1 Performing Organization Address City[facility] Code Phon e Number HP CONVERSION RAPID STREP GROUP A WAIVED (09/12/2013 9:23 AM CDT) Analysis Performed At [facility] logist Time Signature Strep A Negative Negative HP CONVERSION Antigen Strep A Source Throat: HP CONVERSION Specimen Anatomical Collection Method Collection Time Receive d Time (Source) Location / / Volume Laterality 09/12/2013 9:23 AM 4 CDT 12:08 PM CDT Narrative HP CONVERSION - 09/12/2013 1:08 PM CDT Performed at [facility], [address] [place] [address] Transcriptions 09/12/2013 9:45 AM CDTNotes Recorded by Pham May PA-C on 09/13/2013 at 12:50 PMMaritiffanie May PA-C 12:50 PM 09/13/2013 Tong Lucas MD LAB_1 Performing Organization Address City/[facility]/ZIP Code Phon e Number HP CONVERSION documented in this encounter Visit Diagnoses Diagnosis Acute pharyngitis - Primary Acute sinusitis, unspecified Triage Assessment Note - Cristel French RN - 09/12/2013 9:20 AM CDT Sx started 1.5 weeks ago. Pt also reports sore throat; daughter pos for strep. Denies fever documented in this encounter Care Teams Feller Hand Relationship Specialty Start Date End Date Brigid Robb MD PCP - General 02/02/13 02/07/14 [address] [place] [address] documented as of this encounter
--- OUTSIDE RECORDS SUMMARY | 2022-03-23 17:31 | XMS_ITS | Encounter Summary ---
:1980 Author Organization [facility] Address [address] [place] [address] Care Team Providers Name Role Phone Rosalva Flores APRN, RETAIL GROCER Primary Care Provider [phone] Encounter Details Date Type Department Care Team Description 02/22/2014 Lab Visit [facility] Preoperative examination [address] [place] [address] Social History Tobacco Use Types Packs/Day Years Used Date Smoking Tobacco: Never Assessed Sex Assigned at Date Recorded Not on file documented as of this encounter Plan of Treatment Not on filedocumented as of this encounter Procedures Procedure Name Priority Date/Time Associated Diagnosis Comme nts COMPLETE BLOOD Routine 02/22/2014 9:32 AM Preoperative Results for this COUNT-NO DIFF MECHANICAL INTEGRITY ENGINEER examination procedure are in the results section. documented in this encounter Results Complete Blood Count-No Diff (02/22/2014 9:32 AM MECHANICAL INTEGRITY ENGINEER) P athologist Signature White Blood Cell 5.4 3.8 - 11.0 HP CONVERSIO N Count Red Blood Cell 4.97 3.70 - HP CONVERSION Count 5.20 Hemoglobin 14.3 11.8 - HP CONVERSION 15.5 g/dL Hematocrit 42.8 35.0 - HP CONVERSION 46.0 % Mean Corpuscular 86.3 80.0 - HP CONVERSION Volume 100.0 fL RDW 13.8 11.0 - HP CONVERSION 15.0 % Platelet Count 231 140 - 450 HP CONVERSION Specimen Anatomical Collection Method Collection Time Receive d Time (Source) Location / / Volume Laterality 02/22/2014 9:32 AM 4 9:32 MECHANICAL INTEGRITY ENGINEER AM MECHANICAL INTEGRITY ENGINEER Narrative HP CONVERSION - 02/22/2014 9:51 AM MECHANICAL INTEGRITY ENGINEER Performed at [facility], [address] [facility], [place] [address] Rosalva Flores APRN, CNP LAB_1 Performing Organization Address City/State/ZIP Code Phon e Number HP CONVERSION documented in this encounter Visit Diagnoses Diagnosis Preoperative examination Preoperative examination, unspecified documented in this encounter Care Teams Bit Bender Relationship Specialty Start Date End Date Rosalva Flores APRN, CNP PCP - General 02/08/14 08/11/[address] [place] [address] documented as of this encounter
--- OUTSIDE RECORDS SUMMARY | 2022-03-23 17:31 | XMS_ITS | Encounter Summary ---
:1980 [facility] Address [address] [address] Care Team Providers Name Role Phone Brigid Robb MD Primary Care Provider Reason for Visit Reason Onset Date Comments Test Results 09/09/2013 Encounter Details Date Type Department Care Team Description 09/09/2013 [facility] [address] Kelley Quinones RN Test Results [facility] [address] [place] [address] [place] [address] [phone] Social History Tobacco Use Types Packs/Day Years Used Date Smoking Tobacco: Never Assessed Sex Assigned at Date Recorded Not on file documented as of this encounter Nursing Notes Kelley Quinones RN - 09/09/2013 8:23 AM CDT Celiac disease panel lab ordered in [facility]. Per note below, Dr. Sood has discussed this with the pt. Kelley Quinones RN Kelley Quinones RN - 09/09/2013 8:13 AM CDT Message copied by KELLEY QUINONES on FriSeptember 09, 2013 8:13 AM ------ Message from: KHALIF SOOD Created: FriSeptember 09, 2013 8:11 AM No colitis seen on biopsies. Duodenal biopsies are benign. Check celiac disease serology. If the symptoms persist then consider video capsule endoscopy to evaluate small bowel. D/w the patient. Khalif Sood MD 09/09/2013, 8:10 AM ------ documented in this encounter Plan of Treatment Not on filedocumented as of this encounter Visit Diagnoses Diagnosis Nonspecific (abnormal) findings on radio logical and other examination of gastrointestinal tract - Primary documented in this encounter Care Teams Abattoir Supervisor Relationship Specialty Start Date End Date Brigid Robb MD PCP - General 02/02/13 02/07/14 [address] [place] [address] documented as of this encounter
--- OUTSIDE RECORDS SUMMARY | 2022-03-23 17:32 | XMS_ITS | Encounter Summary ---
:1980 Author Organization [facility] Address [address] [place] [address] Care Team Providers Name Role Phone Brigid Robb MD Primary Care Provider Encounter Details Date Type Department Care Team Description 06/24/2013 Imaging [facility] Chronic cough [address] [place] [address] Social History Tobacco Use Types Packs/Day Years Used Date Smoking Tobacco: Never Assessed Sex Assigned at Date Recorded Not on file documented as of this encounter Plan of Treatment Not on filedocumented as of this encounter Procedures Procedure Name Priority Date/Time Associated Diagnosis Comme nts XR CHEST 2 VIEWS Routine 06/24/2013 1:39 PM Chronic cough Resu lts for this CDT procedure are i n the results section. documented in this encounter Results XR Chest 2 Views (06/24/2013 1:39 PM CDT) Anatomical Region Laterality Modality Chest, Lung Other Specimen (Source) Anatomical Location Collection Method / Collectio n Time Received Time / Laterality Volume Narrative 06/24/2013 2:06 PM CDT COMPARISON: 04/30/2011. FINDINGS: There is normal increased dens ity overlying the right base most likely representing a small infiltrate. ??The differential is atelectasis. Finding appears new compared to prior. ?2 views o f the chest are otherwise within normal limits. ?? Procedure Note Derek Laughlin MD - 09/30/2015For matting of this note might be different from the original. COMPARISON: 04/30/2011. FINDINGS: There is normal increased dens ity overlying the right base most likely representing a small infiltrate. The differential is atelectasis. Finding appears new compared to prior. 2 views of the chest are otherwise within normal limits. Debra Pike MD RAD GD documented in this encounter Visit Diagnoses Diagnosis Chronic cough Cough documented in this encounter Care Teams Mechanic Senior Relationship Specialty Start Date End Date Brigid Robb MD PCP - General 02/02/13 02/07/14 [address] [place] [address] documented as of this encounter
--- OUTSIDE RECORDS SUMMARY | 2022-03-23 17:32 | XMS_ITS | Encounter Summary ---
:1980 [address] [facility] Address [address], [place] [address] Care Team Providers Name Role Phone Brigid Robb MD Primary Care Provider Reason for Visit Reason Comments Pharyngitis Encounter Details Date Type Department Care Team Description 06/05/2013 Hospital Encounter [facility] Lincoln Dyer Acute pharyngitis (Primary Dx); Jacinda Heredia MD Acute sinusitis, unspecified [address] [address] [phone] Social History Tobacco Use Types Packs/Day Years Used Date Smoking Tobacco: Never Assessed Sex Assigned at Date Recorded Not on file documented as of this encounter Last Filed Vital Signs Vital Sign Reading Time Taken Comments Blood Pressure 118/72 06/05/2013 12:38 PM BLOCK FEEDER Pulse 99 06/05/2013 12:38 PM BLOCK FEEDER Temperature 37.3 ??C (99.1 ??F) 06/05/2013 12:38 PM BLOCK FEEDER Respiratory Rate 16 06/05/2013 12:38 PM BLOCK FEEDER Oxygen Saturation - - Inhaled Oxygen Concentration - - Weight - - Height - - Body Mass Index - - documented in this encounter Medications at Time of Discharge Medication Sig Dispensed Refills Start Date End Date ALBUterol 2.5 mg/3 mL Take 3 mLs by 75 mL 0 01/23/2013 07/08/2013 (0.083%) inhalation nebulization every 4 hours as needed for Wheezing for 5 days. ALBUterol sulfate HFA Inhale 1-2 puffs every 8 g 0 07/08/2013 inhalation 4 hours as needed for Shortness of Breath for 7 days. Please add program or project administrator documented as of this encounter ED Notes Lincoln Dyer MD - 06/05/2013 1:21 PM CST Patient ID: Lacey Nolasco Date of : 1980 SUBJECTIVE: 33 y.o. female presents with 2 days of having a sore throat and 10 days of having sinus pressure andpain. She does not have low grade fevers . There are no other associated symptoms present. She has had ill contacts with strep throat. Past Medical, Surgical and Social History reviewed on EMR. Medications reviewed on EMR. Allergies: Allergies Allergen Reactions ??? Aliaien Richi Blacks out ROS: As noted in HPI, all other review of systems are negative. PHYSICAL EXAM: Appears alert and non distressed, She appears non toxic. Blood pressure 118/72, pulse 99, temperature 37.3 ??C (99.1 ??F), temperature source Oral, resp. rate 16, not currently . HEENT: Head normocephalic and atraumatic Eyes Normal, conjunctiva normal without injection. PERRLA. Ears: Right TM normal Left TM normal, external auditory canals without drainage. Sinuses: Sinus tenderness is present in the right maxillary sinuse. Throat: mild erythema, no peritonsillar masses or swelling. Neck: Soft, with no palpable lymphadenopathy, no meningeal signs. Chest: normal air entry, no crackles. Heart: HS normal with no murmurs. Neuro: Age appropriate, cranial nerves 2-12 appear grossly intact, no focal deficits. Skin appears normal without rashes. UC Course: Labs Reviewed N/O MICRO CULTURE STREP FOLLOW UP FROM RAPID LAB RAPID STREP GROUP A WAIVED Narrative: Performed at [facility], [address] [place] [address] ASSESSMENT: The primary encounter diagnosis was Acute pharyngitis. A diagnosis of Acute sinusitis, unspecified was also pertinent to this visit. PLAN: Discharge Medication List as of 06/05/2013 1:21 PM Supportive care with tylenol or motrin, plenty of fluids. Follow up with primary care physician in 3 - 5 days or sooner if symptoms worsen, may return here or go to the ER if worsening or concerns. Wedarek call if throat swab positive on culture. Ruben Ponce RN - 06/05/2013 1:12 PM CST RST negative documented in this encounter Miscellaneous Notes Medication History - Eloy Vernon MD - 06/05/2013 1:21 PM CST INPATIENT MEDS Encounter Date: 06/05/13 amoxicillin (AMOXIL) 875 mg tablet Start Date:06/05/13, End Date:06/15/13, Frequency:2 TIMES DAILY *No Administrations Recorded fluticasone (FLONASE) 50 mcg/actuation nasal spray Start Date:06/05/13, End Date:07/05/13, Frequency:DAILY *No Administrations Recorded K FEEDER documented in this encounter Plan of Treatment Not on filedocumented as of this encounter Procedures Procedure Name Priority Date/Time Associated Diagnosis Comme nts BETA STREP FOLLOWUP Routine 06/05/2013 1:23 PM Re sults for this BLOCK FEEDER procedure are i n the results section. GROUP A STREP STAT 06/05/2013 12:39 PM Acute pharyngitis Re sults for this ANTIGEN SCREEN BLOCK FEEDER procedure are in the results section. documented in this encounter Results BETA STREP FOLLOWUP (06/05/2013 1:23 PM BLOCK FEEDER) Patholo gist Method Time Signature Source Throat HP CONVERSION Site HP CONVERSION Strep Screen No beta HP CONVERSION hemolytic Strep Group A isolated. Specimen (Source) Anatomical Collection Method Collection Time Re ceived Time Location / / Volume Laterality Throat: 06/05/2013 1:23 PM BLOCK FEEDER Tong Lucas MD LAB_1 Performing Organization Address City/State/ZIP Code Phon e Number HP CONVERSION RAPID STREP GROUP A WAIVED (06/05/2013 12:39 PM BLOCK FEEDER) Analysis Performed At Path logist Time Signature Strep A Negative Negative HP CONVERSION Antigen Strep A Source Throat: HP CONVERSION Specimen Anatomical Collection Method Collection Time Receive d Time (Source) Location / / Volume Laterality 06/05/2013 12:39 06/05/2013 1:22 PM BLOCK FEEDER PM BLOCK FEEDER Narrative HP CONVERSION - 06/05/2013 1:24 PM BLOCK FEEDER Performed at [facility], [address] [place] [address] Tong Lucas MD LAB_1 Performing Organization Address City/State/ZIP Code Phon e Number HP CONVERSION documented in this encounter Visit Diagnoses Diagnosis Acute pharyngitis - Primary Acute sinusitis, unspecified Triage Assessment Note - Umu Nunes RN - 06/05/2013 12:37 PM CST Pt c/o sore throat x 2 days, sinus pain and congestion x 10 days. and son have strep. Pt hasto leave town with [employer] tomorrow and will not have medical access. documented in this encounter Care Teams Nutrition Coordinator Relationship Specialty Start Date End Date Brigid Robb MD PCP - General 02/02/13 02/07/14 [address] [place] [address] documented as of this encounter
--- OUTSIDE RECORDS SUMMARY | 2022-03-23 17:32 | XMS_ITS | Encounter Summary ---
:1980 Author Organization [facility] Address [address] [place] [address] Care Team Providers Name Role Phone Brigid Robb MD Primary Care Provider Reason for Visit Reason Comments URI Sleep problems Encounter Details Date Type Department Care Team Description 02/02/2013 Office Visit [facility] Brigid Robb M D Chronic cough (Primary Medicine [address] [place]) [address] [place] [address] [phone] Social History Tobacco Use Types Packs/Day Years Used Date Smoking Tobacco: Never Assessed Sex Assigned at Date Recorded Not on file documented as of this encounter Last Filed Vital Signs Vital Sign Reading Time Taken Comments Blood Pressure 112/70 02/02/2013 2:18 PM CDT Pulse 80 02/02/2013 2:18 PM CDT Temperature 36.8 ??C (98.2 ??F) 02/02/2013 2:18 PM CDT Respiratory Rate 16 02/02/2013 2:18 PM CDT Oxygen Saturation 100% 02/02/2013 2:18 PM CDT Inhaled Oxygen Concentration - - Weight 81.1 kg (178 lb 12.8 oz) 02/02/2013 2:18 PM CDT Height 163.8 cm (5' 4.5) 02/02/2013 2:18 PM CDT Body Mass Index 30.22 02/02/2013 2:18 PM CDT documented in this encounter Progress Notes Brigid Robb MD - 02/02/2013 2:37 PM CDT Progress Notes signed by Brigid Robb MD at 02/04/13915 Author: Brigid Robb MD Service: (none) Author Type: Physician Filed: 02/04/13915 Note Time: 02/02/132148 Status: Signed Rn Radiation: Brigid Robb MD (Physician) NAME: SHAMIR NOLASCO MR#: [id number] CSN: [id number] AUTHENTICATING CLINICIAN: Brigid Robb MD CONFIRM #: [id number] LOC: 4402 CLINIC PROGRESS NOTE DATE OF VISIT: 02/02/2013 : 1980 SUBJECTIVE: A 32-year-old, female. She is coming today to clinic. She complain about dry cough, almostduration of 1-1/2 to 2 months. Chest congestion. She had been seen in the Urgent Care 2 times. She was treated with 2 different antibiotic. She was given prednisone, she was given albuterol inhaler. They did nebulizer her there and according to patient did not make any difference. Maybe helped for some postnasal drip, but otherwise no any other change. Her cough is dry, mostly when she lie down at night. She deny any fever and chills. Her young past medical history according to the patient, she was diagnosed with asthma when she was young she was told but she never used medication for it or very lauren dom. She has a brother that he has asthma and use nebulizer but according to her, the steroid inhaler ,it did not make any difference. She deny any GERD symptoms. Allergies possible. She has a Flonase for which she uses occasional basis. Otherwise, no any other medication and she is healthy. REVIEW OF SYSTEMS: As above. Otherwise, her HEENT, neck, lung, cardiovascular, GI, skeletal, muscle negative. OBJECTIVE: VITAL SIGNS: Blood pressure /70, temperature 98. Pulse 100, the second time 80. GENERAL: Patient alert, oriented, in no distress. HEENT: Both ears clear. Nose mucosa is pale, bluish, some clear discharge and irritated, possible allergy. Oral cavity, pharynx uvula normal except some clear postnasal drip. NECK: No enlarged lymph nodes. LUNGS: No wheezing. ASSESSMENT: Cough and some chest congestion, tightness. PLAN: I offered her nebulizer, she does not want it, she does not want to take the steroid and she is on Flonase. She has already albuterol metered-dose inhaler at home. Plan: She agreed to see spine surgeon andfigure out if she has asthma or not. Any concern, question, back to the clinic. Otherwise, referral made to go to see spine surgeon. follow up after that YO:MEDQ C: CONFIRM #: [id number] documented in this encounter Plan of Treatment Not on filedocumented as of this encounter Visit Diagnoses Diagnosis Chronic cough - Primary Cough documented in this encounter Care Teams Machine Stone Polisher Relationship Specialty Start Date End Date Brigid Robb MD PCP - General 02/02/13 02/07/14 [address] [place] [address] documented as of this encounter
--- OUTSIDE RECORDS SUMMARY | 2022-03-23 17:32 | XMS_ITS | Encounter Summary ---
:1980 [facility] Address [address] [address] Care Team Providers Name Role Phone Allen Amaya MD Primary Care Provider Reason for Visit Reason Comments Follow-up Encounter Details Date Type Department Care Team Description 06/25/2012 Notes/Orders [facility] [place] [address] [address] [place] [address] [place] [address] [phone] (Wo rk) Social History Tobacco Use Types Packs/Day Years Used Date Smoking Tobacco: Never Assessed Sex Assigned at Date Recorded Not on file documented as of this encounter Progress Notes Claudia Brennan RN - 06/25/2012 12:12 PM CDT EPDS score is 7. documented in this encounter Plan of Treatment Not on filedocumented as of this encounter Visit Diagnoses Not on filedocumented in this encounter Care Teams Hand Coremaker Relationship Specialty Start Date End Date Allen Amaya MD PCP - General 02/12/12 02/01/13 [place] [address] documented as of this encounter
--- OUTSIDE RECORDS SUMMARY | 2022-03-23 17:32 | XMS_ITS | Encounter Summary ---
:1980 Author Organization [facility] Address [address], [place] [address] Care Team Providers Name Role Phone Allen Amaya MD Primary Care Provider [phone] Reason for Visit Reason Comments Ear Pain Encounter Details Date Type Department Care Team Description 12/14/2012 Hospital Encounter [facility] [address] ([facility] Artur Naylor MD respiratory [address] infection ) ([address] Dx) [place] [address] Social History Tobacco Use Types Packs/Day Years Used Date Smoking Tobacco: Never Assessed Sex Assigned at Date Recorded Not on file documented as of this encounter Last Filed Vital Signs Vital Sign Reading Time Taken Comments Blood Pressure 114/71 12/14/2012 9:18 AM CDT Pulse 72 12/14/2012 9:18 AM CDT Temperature 36.4 ??C (97.5 ??F) 12/14/2012 9:18 AM CDT Respiratory Rate 14 12/14/2012 9:18 AM CDT Oxygen Saturation 98% 12/14/2012 9:18 AM CDT Inhaled Oxygen Concentration - - Weight - - Height - - Body Mass Index - - documented in this encounter Medications at Time of Discharge Medication Sig Dispensed Refills Start Date End Date tretinoin, Facial Apply topically 0 10/05/2012 Wrinkles, (REFISSA) nightly. Apply to 0.05 % cream cleansed and dried skin. documented as of this encounter ED Notes Artur Reynolds MD - 12/14/2012 10:12 AM CDT SUBJECTIVE: Lacey Nolasco is a 32 y.o. female who presents with a new problem of congestion with throat and ear pain. Probably whouldn't have come for eval but dauthter is for fever and headache. STonset today. Ears are mildly painful. congestion. 1 week of congestion. No sneezing. No coughing. Nohisotry of allergy problems. ROS: Review of systems is as noted above and remaining complete review of systems is otherwise negative. Past Medical History, Medications, Social History, and Allergies reviewed per [facility]. OBJECTIVE: GENERAL: Age appropriate in NAD. She is here with her daughter. BP 114/71 Pulse 72 Temp(Src) 36.4 ??C (97.5 ??F) (Oral) Resp 14 SpO2 98% LMP 12/12/2012 ? No HEENT: Atraumatic/normocephalic. EYES: PERRL. Conjunctiva are clear. Ears: Normal to outer visual inspection. TMs and canals are normal Nose: Normal to outer visual inspection. Nares are patent with normal appearing turbinates. OP: Moist mucous membranes without exudates or edema. Uvula is midline. Tonsils are absent. Neck: Supple and non-tender without thyromegaly. No lymphadenopathy. Cor: PMI is normal. NSR without murmurs, gallops, or rubs. Lungs: Clear to auscultation bilaterally without wheezing, rhonchi, or rales. Respiratory effort is normal. Abd: Not examined. Skin: No visible or palpable rashes. Neuro: Alert and appropriate. ASSESSMENT/PLAN: Diagnosis (ICD9) 1. URI (upper respiratory infection) (465.9) Her symptoms are fairly not concerning at this point and most consistent with a viral community acquired viral respiratory illness. Symptomatic treatment is warranted. Use OTC analgesics for fever or pain. Discussed home treatment including fluids and good nutrition.. Warning signs and symptoms were reviewed. Advised to return if worse or not gradually improving. She agrees. documented in this encounter Plan of Treatment Not on filedocumented as of this encounter Visit Diagnoses Diagnosis URI (upper respiratory infection) - Prim shellie Acute upper respiratory infections of un specified site Triage Assessment Note - Anish Browning RN - 12/14/2012 9:16 AM CDT Pt to UC with 1 week Hx of persistent bilateral ear pain. Pain rated at 5/10; denies drainage. documented in this encounter Care Teams Operations Staff Specialist Security Relationship Specialty Start Date End Date Allen Amaya MD PCP - General 02/12/12 02/01/13 [address] [place] [address] documented as of this encounter
--- OUTSIDE RECORDS SUMMARY | 2022-03-23 17:32 | XMS_ITS | Encounter Summary ---
:1980 [facility] Address [address] [place] [address] Care Team Providers Name Role Phone Allen Amaya MD Primary Care Provider Reason for Visit Reason Comments Follow-up Encounter Details Date Type Department Care Team Description 08/27/2012 Notes/Orders [facility] [place] [address] [address] [place] [address] [place] [address] [phone] (Wo rk) Social History Tobacco Use Types Packs/Day Years Used Date Smoking Tobacco: Never Assessed Sex Assigned at Date Recorded Not on file documented as of this encounter Progress Notes Claudia Brennan RN - 08/27/2012 5:00 PM CDT EPDS score is 5. documented in this encounter Plan of Treatment Not on filedocumented as of this encounter Visit Diagnoses Not on filedocumented in this encounter Care Teams Pouring Crane Operator Relationship Specialty Start Date End Date Allen Amaya MD PCP - General 02/12/12 02/01/13 [place] [address] documented as of this encounter
--- OUTSIDE RECORDS SUMMARY | 2022-03-23 17:32 | XMS_ITS | Encounter Summary ---
:1980 Author Organization [facility] Address [address] [address] Care Team Providers Name Role Phone Brigid Robb MD Primary Care Provider Reason for Visit Reason Comments Pharyngitis Encounter Details Date Type Department Care Team Description 05/11/2013 Office Visit [facility] Dulce Mann Acut e pharyngitis Medicine (Primary Dx) [address] [place] [address] [place], [place] [phone] (Wo rk) Social History Tobacco Use Types Packs/Day Years Used Date Smoking Tobacco: Never Assessed Sex Assigned at Date Recorded Not on file documented as of this encounter Last Filed Vital Signs Vital Sign Reading Time Taken Comments Blood Pressure - - Pulse - - Temperature 37.2 ??C (99 ??F) 05/11/2013 10:12 AM INSURANCE WRITER Respiratory Rate 18 05/11/2013 10:12 AM INSURANCE WRITER Oxygen Saturation - - Inhaled Oxygen Concentration - - Weight 83 kg (183 lb) 05/11/2013 10:12 AM INSURANCE WRITER Height - - Body Mass Index 30.93 03/24/2013 7:20 AM INSURANCE WRITER documented in this encounter Progress Notes Dulce Mann MD - 05/11/2013 1:10 PM CST Progress Notes signed by Dulce Mann MD at 05/12/13 0921 Author: Dulce Mann MD Service: (none) Author Type: Physician Filed: 05/12/13 0921 Note Time: 05/11/131824 Status: Signed Rug Cutter Helper: Dulce Mann MD (Physician) NAME: SHAMIR NOLASCO MR#: [id number] CSN: [id number] AUTHENTICATING CLINICIAN: Dulce Mann MD CONFIRM #: [id number] LOC: 502 CLINIC PROGRESS NOTE DATE OF VISIT: 05/11/2013 : 1980 CHIEF COMPLAINT: Sore throat. HISTORY OF PRESENTING ILLNESS: Shamir is a 33-year-old lady who today came with concerns of sore throat. According to the patient,she was diagnosed with strep on April 07. She was given antibiotic, she thinks it was amoxicillin, then 2 weeks ago later she started having this sore throat again. She went to Urgent Care, the rapid strep was positive. She was given penicillin for 10 days. She finished the antibiotic 4-5 days ago, and then she felt the sore throat is coming back. She is a little concerned because last time the sore throat started mild and it really got worse so today came. The sore throat is mild, it is for 2 days. She has mild difficulty to swallow, but she is able to eat and drink. No fever. She is status post tonsillectomy. She does have some postnasal drainage for the last 2 weeks. No runny nose, no sinus pain. Today came in for evaluation. REVIEW OF SYSTEMS: Negative. MEDICATIONS: Reviewed. ALLERGIES: Ambien. SOCIAL HISTORY: Patient does not smoke. She works in . OBJECTIVE: Respirations 18, weight is 183 pounds. Temperature is 98.9. GENERAL: The patient is comfortable, no acute distress. HEENT: Normocephalic, atraumatic. Tympanic membranes been clear. No exudate. CARDIOVASCULAR: S1 and S2. Regular. LUNGS: Clear to auscultation bilaterally. ASSESSMENT: Pharyngitis. The rapid strep has been negative. Recommend saltwater gargles, Tylenol as needed. Willawait for culture results. If it has been worsening recommend to follow, which the patient agreed. SS:MEDQ C: CONFIRM #: [id number] RANCE WRITER documented in this encounter Plan of Treatment Not on filedocumented as of this encounter Procedures Procedure Name Priority Date/Time Associated Diagnosis Comme nts BETA STREP FOLLOWUP Routine 05/11/2013 12:11 PM R esults for this INSURANCE WRITER procedure are i n the results section. GROUP A STREP Routine 05/11/2013 10:24 AM Acute pharyngitis Re sults for this ANTIGEN SCREEN INSURANCE WRITER procedure are in the results section. documented in this encounter Results BETA STREP FOLLOWUP (05/11/2013 12:11 PM INSURANCE WRITER) Patholo gist Method Time Signature Source Throat HP CONVERSION Site HP CONVERSION Strep Screen No beta HP CONVERSION hemolytic Strep Group A isolated. Specimen (Source) Anatomical Collection Method Collection Time Re ceived Time Location / / Volume Laterality Throat: 05/11/2013 12:11 PM INSURANCE WRITER Dulce Mann MD LAB_1 Performing Organization Address City/[facility] Phon e Number HP CONVERSION RAPID STREP GROUP A WAIVED (05/11/2013 10:24 AM INSURANCE WRITER) Analysis Performed At Patho logist Time Signature Strep A Negative Negative HP CONVERSION Antigen Strep A Source Throat: HP CONVERSION Specimen Anatomical Collection Method Collection Time Receive d Time (Source) Location / / Volume Laterality 05/11/2013 10:24 05/11/2013 AM INSURANCE WRITER 12:10 PM INSURANCE WRITER Narrative HP CONVERSION - 05/11/2013 12:12 PM INSURANCE WRITER Performed at [facility], [address] [place] [address] Dulce Mann MD LAB_1 Performing Organization Address City/[facility]/ZIP Code Phon e Number HP CONVERSION documented in this encounter Visit Diagnoses Diagnosis Acute pharyngitis - Primary documented in this encounter Care Teams Architectural Technician Relationship Specialty Start Date End Date Brigid Robb MD PCP - General 02/02/13 02/07/14 [address] [place] [address] documented as of this encounter
--- OUTSIDE RECORDS SUMMARY | 2022-03-23 17:32 | XMS_ITS | Encounter Summary ---
:1980 Author Organization [facility] Address [address] [address] Care Team Providers Name Role Phone Allen Amaya MD Primary Care Provider [phone] Reason for Visit Reason Comments Routine Visit Encounter Details Date Type Department Care Team Description 04/20/2012 Routine [place] Allen Amaya Obstetrics/Gynecolo MD Kiran Visit gy [address] [address] [place] [address] [address] [place], [place] [phone] (Wo rk) [address] [phone] Social History Tobacco Use Types Packs/Day Years Used Date Smoking Tobacco: Never Assessed Sex Assigned at Date Recorded Not on file documented as of this encounter Last Filed Vital Signs Vital Sign Reading Time Taken Comments Blood Pressure 111/73 04/20/2012 9:13 AM MEDICAL RECORDS FIELD TECHNICIAN Pulse 93 04/20/2012 9:13 AM MEDICAL RECORDS FIELD TECHNICIAN Temperature - - Respiratory Rate - - Oxygen Saturation - - Inhaled Oxygen Concentration - - Weight 92 kg (202 lb 12.8 oz) 04/20/2012 9:13 AM MEDICAL RECORDS FIELD TECHNICIAN Height - - Body Mass Index 33.75 09/23/2011 7:48 AM CDT documented in this encounter Progress Notes Allen Aamya - 04/20/2012 9:25 AM CST Anxious for delivery. Will be 39 weeks on 04/26/12 - will plan indxn at that time. documented in this encounter Plan of Treatment Not on filedocumented as of this encounter Visit Diagnoses Diagnosis Supervision of normal subsequent pregnan cy - Primary Supervision of other normal documented in this encounter Care Teams Denitrator Operator Relationship Specialty Start Date End Date Allen Amaya MD PCP - General 02/12/12 02/01/13 [address] [place] [address] documented as of this encounter
--- OUTSIDE RECORDS SUMMARY | 2022-03-23 17:32 | XMS_ITS | Encounter Summary ---
:1980 Author Organization [facility] Address [address] [address] Care Team Providers Name Role Phone Allen Amaya MD Primary Care Provider [phone] Reason for Visit Reason Comments FACIAL PAIN URI Cough Encounter Details Date Type Department Care Team Description 01/23/2013 Hospital Encounter [facility] Nicholas Tolbert (Primary Dx); Jacinda Heredia MD Bronchospasm [address] [address] [phone] Social History Tobacco Use Types Packs/Day Years Used Date Smoking Tobacco: Never Assessed Sex Assigned at Date Recorded Not on file documented as of this encounter Last Filed Vital Signs Vital Sign Reading Time Taken Comments Blood Pressure 99/73 01/23/2013 10:15 AM CDT Pulse 88 01/23/2013 10:15 AM CDT Temperature 37.1 ??C (98.8 ??F) 01/23/2013 10:15 AM CDT Respiratory Rate 16 01/23/2013 10:15 AM CDT Oxygen Saturation 99% 01/23/2013 10:15 AM CDT Inhaled Oxygen Concentration - - [...] of Breath for 7 days. Please add mud analysis operator azithromycin (aka Take 2 tablets by 6 tablet 0 01/23/2013 03/24/2013 ZITHROMAX) tablet mouth on day 1, then take 1 tablet by mouth daily on days 2-5. fluticasone (aka Place 2 sprays into 16 g 0 01/13/2013 04/20/2013 FLONASE) 50 MCG/ACT each nostril daily nasal spray (every 24 hours). Dose is for each nostril. predniSONE (aka Take 1 tablet by mouth 10 tablet 0 01/24/20 13 01/28/2013 DELTASONE) tablet 2 times daily for 5 days. Take with food. documented as of this encounter ED Notes Nicholas Tolbert MD - 01/23/2013 7:37 PM CDT ED Provider Notes signed by Nicholas Tolbert MD at 02/08/132135 Author: Nicholas Tolbert MD Service: (none) Author Type: Physician Filed: 02/08/132135 Note Time: 01/23/132115 Status: Signed Commodity Merchant: Nicholas Tolbert MD (Physician) NAME: SHAMIR NOLASCO MR#: [id number] CSN: [id number] AUTHENTICATING CLINICIAN: Nicholas Tolbert MD CONFIRM #: [id number] LOC: 520 URGENT CARE PROGRESS NOTE DATE OF VISIT: 01/23/2013 : 1980 SUBJECTIVE: The patient is a 32-year-old female who 10 days ago got antibiotics for her sinuses, which are better somewhat, but her cough is actually seeming somewhat worse. She has not had a fever, but has also then felt a little short of breath for the last 2 days. She tells me that she has not had any chest pain, and she has continued with some sinus pressure. ALLERGIES: Further history includes her having allergies to Ambien. HOME MEDICATIONS: Include just Flonase. She denies any seasonal allergies and denies control or the possibility of or nursing. PAST HISTORY: Does include her having asthma as a child. SOCIAL HISTORY: She is currently in the . She denies diabetes, stomach ulcers, or other contraindications tothe use of steroid medications. She does feel that she is maybe slightly short of breath at rest. PAST AND FAMILY HISTORY: Negative for lung problems or blood clots. OBJECTIVE: Temperature 98.8. Oxygen saturation 99%. Pulse 88. Exam shows slightly decreased air entry especially at the lung bases, and cough sounds somewhat tight. Sinuses are minimally tender to palpation. HEART: Sounds normal. Homans sign is negative. I did give her an albuterol neb and came back and rechecked, lungs were clear, and her symptoms are completely resolved at that point. ASSESSMENT: 1. Cough. 2. Bronchospasm and may still have some mild sinusitis symptoms. PLAN: Will go with a Z-Richi, prednisone and an albuterol inhaler. It turns out she has a neb machine at home also, so I am going to send some neb solution with her, and she is going to push fluids and use Mucinex. She will follow up immediately if worsening or if new symptoms; or if not markedly improved andweaning off the bronchodilators in 2 days to recheck and then follow up if otherwise not resolved quickly and completely with medications as noted. WDL:MEDQ C: CONFIRM #: [id number] documented in this encounter Miscellaneous Notes Medication History - Janeen, MD Eloy - 01/23/2013 10:45 AM CDT INPATIENT MEDS Encounter Date: 01/23/13 albuterol 2.5 mg /3 mL (0.083 %) nebulizer solution Start Date:01/23/13, End Date:07/08/13, Frequency:EVERY 4 HOURS PRN *No Administrations Recorded predniSONE (DELTASONE) 20 mg tablet Start Date:01/23/13, End Date:01/28/13, Frequency:2 TIMES DAILY *No Administrations Recorded albuterol HFA 90 mcg/actuation inhaler Start Date:01/23/13, End Date:07/08/13, Frequency:EVERY 4 HOURS PRN *No Administrations Recorded azithromycin (ZITHROMAX) 250 mg tablet Start Date:01/23/13, End Date:03/24/13, Frequency:- *No Administrations Recorded albuterol 2.5 mg /3 mL (0.083 %) nebulizer solution 2.5 mg Start Date:01/23/13, End Date:01/23/13, Frequency:ONCE Taken Dose Action User Route Site Recorded Comment Reason 01/23/13 1034 2.5 mg Given Laureen Monae RN Nebulization - 01/23/13 1034 - - documented in this encounter Plan of Treatment Not on filedocumented as of this encounter Visit Diagnoses Diagnosis Cough - Primary Bronchospasm Acute bronchospasm Triage Assessment Note - Laureen Monae RN - 01/23/2013 10:14 AM CDT Was seen 10 days ago and given antibiotics for sinus infect. Getting worse. Cough much worse, wheezing, can't sleep documented in this encounter Care Teams Applier Relationship Specialty Start Date End Date Allen Amaya MD PCP - General 02/12/12 02/01/13 [place] [address] documented as of this encounter
--- OUTSIDE RECORDS SUMMARY | 2022-03-23 17:32 | XMS_ITS | Encounter Summary ---
:1980 Author Organization [facility] Address [address] [place] [address] Care Team Providers Name Role Phone Brigid Robb MD Primary Care Provider Reason for Visit Reason Comments BLOATED Nausea ABDOMINAL CRAMPS FATIGUE Encounter Details Date Type Department Care Team Description 08/30/2013 Office Visit [facility] Sasha Kimball Black stools (Primary Dx); Medicine PA-C Early satiety; [address] [place] Nausea alone; [place], [place] Fatigue; [address] [place], [place] BRBPR (bright red blood per rectum) [phone] [address] Social History Tobacco Use Types Packs/Day Years Used Date Smoking Tobacco: Never Assessed Sex Assigned at Date Recorded Not on file documented as of this encounter Last Filed Vital Signs Vital Sign Reading Time Taken Comments Blood Pressure 104/70 08/30/2013 6:18 PM CDT Pulse 77 08/30/2013 6:18 PM CDT Temperature 36.9 ??C (98.4 ??F) 08/30/2013 6:18 PM CDT Respiratory Rate 18 08/30/2013 6:18 PM CDT Oxygen Saturation 99% 08/30/2013 6:18 PM CDT Inhaled Oxygen Concentration - - Weight 83 kg (183 lb) 08/30/2013 6:18 PM CDT Height 165.1 cm (5' 5) 08/30/2013 6:18 PM CDT Body Mass Index 30.45 08/30/2013 6:18 PM CDT documented in this encounter Progress Notes Sasha Kimball - 09/07/2013 9:52 PM CDT Chief Complaint Patient presents with ??? Bloated of and on for 2 month ??? Nausea ??? Abdominal Cramping low abdomen off and on ??? Fatigue Subjective: Concerns: Lacey Nolasco is an 33 y.o. female who presents for evaluation of abdominal pain, bloating, cramping for 2 months on and off. Over the last 3 weeks she has been having black tarry stools. The pain is a cramping sensation in her upper and lower abdomen. No history of this in the past. she has had small amounts of red blood on her stools. She denies pain increase or decrease with bowel movements. Novomiting, diarrhea or constipation. No fevers or chills. No change in caliber of stools. nothing makes this better or worse. associated symptoms: general fatigue and early satiety. no weight loss appreciated. no problems with swallowing. Past medical, family, and social history reviewed and updated today Review of Systems is negative other than stated above, a 12 point review of systems was preformed Medications reviewed in EMR Adverse drug reactions: Deejay ace Objective: Vital Signs: BP 104/70 Pulse 77 Temp(Src) 98.5 ??F (36.9 ??C) (Oral) Resp 18 Ht 5' 5 (1.651m) Wt 183 lb (83.008 kg) BMI 30.45 kg/m2 SpO2 99% General: Pleasant female, alert, in NAD. HEENT: PERRLA, EOMI, no icterus or injection. Bilateral TM's, external canals, oropharynx normal. Neck: Supple, without thyromegaly or mass. CV: RRR without murmurs, rubs or gallops. Resp: Clear to auscultation without crackles, wheezes or distress. Abdomen: Soft, mildly-tender epigastric region., non-distended, without hepatosplenomegaly, masses. Lower Extremities: FROM, normal gait without edema, lesions, or deformity. Rectal: no hemorrhoid, normal spincter tone, no blood or stool in rectal vault. Neuro: CN II-XII, motor & sensory function all intact. Psychiatric: Alert & oriented with normal affect and insight. Assessment and plan: Diagnosis (ICD9) ICD-9-CM 1. Black stools 792.1 2. Early satiety 780.94 3. Nausea alone 787.02 4. Fatigue 780.79 5. BRBPR (bright red blood per rectum) 569.3 Lacey was seen today for bloated, nausea, abdominal cramping and fatigue. Diagnoses and associated orders for this visit: Black stools: Screen for h. pylori and start ompeprazole 20 mg daily, avoid nsaids and asa. ordered Endoscopy and colonoscopy. - Complete Blood Count-No Diff; Future - Helicobacter Pylori IGG; Future - Colonoscopy; Future Early satiety - Helicobacter Pylori IGG; Future - Colonoscopy; Future Nausea alone - Complete Blood Count-No Diff; Future - Helicobacter Pylori IGG; Future - EGD; Future Fatigue: cbc normal, TSH ordered. - Complete Blood Count-No Diff; Future - TSH And Free T4 (FRT4 If TSH Abnorm); Future BRBPR (bright red blood per rectum) - Colonoscopy; Future Other Orders - omeprazole (PRILOSEC) 20 mg capsule; Take 1 capsule by mouth 2 times daily. Follow up - If symptoms worsen or change she was educated to follow up immediately. The patient verbalized understanding and was agreeable with the plan. Sasha Kimball PA-C This note was produced using voice recognition software and may contain typographic or phonetic errors. I spent 25 minutes with patient of which 18 minutes was used in (counseling, education, coordinatingcare, medications side effects, pathophysiology of disease, disease progression, life-style education and recommendations) documented in this encounter Plan of Treatment Not on filedocumented as of this encounter Visit Diagnoses Diagnosis Black stools - Primary Nonspecific abnormal finding in stool co ntents Early satiety Nausea alone Fatigue Other malaise and fatigue BRBPR (bright red blood per rectum) Hemorrhage of rectum and anus documented in this encounter Care Teams Lna Relationship Specialty Start Date End Date Brigid Robb MD PCP - General 02/02/13 02/07/14 [address] [place] [address] documented as of this encounter
--- OUTSIDE RECORDS SUMMARY | 2022-03-23 17:32 | XMS_ITS | Encounter Summary ---
:1980 Author Organization [facility] Address [address], [place] [address] Care Team Providers Name Role Phone Allen Amaya MD Primary Care Provider [phone] Reason for Visit Reason Comments FACIAL PAIN Cough Encounter Details Date Type Department Care Team Description 01/13/2013 Hospital Encounter [facility] Luli Carrera (upper respiratory infection) (Primary Dx); Jacinda Owens MD Acute sinusitis, unspecified [address] [place], [place] [id number] Social History Tobacco Use Types Packs/Day Years Used Date Smoking Tobacco: Never Assessed Sex Assigned at Date Recorded Not on file documented as of this encounter Last Filed Vital Signs Vital Sign Reading Time Taken Comments Blood Pressure 116/75 01/13/2013 12:56 PM CDT Pulse 68 01/13/2013 12:56 PM CDT Temperature 36.9 ??C (98.4 ??F) 01/13/2013 12:56 PM CDT Respiratory Rate - - Oxygen Saturation 99% 01/13/2013 12:56 PM CDT Inhaled Oxygen Concentration - - Weight - - Height - - Body Mass Index - - documented in this encounter Medications at Time of Discharge Medication Sig Dispensed Refills Start Date End Date amoxicillin-clavulanate Take 1 tablet by 20 tablet 0 201201/23/2013 (aka AUGMENTIN) tablet mouth 2 times daily for 10 days. fluticasone (aka FLONASE) Place 2 sprays into 16 g 0 1 04/20/2013 50 MCG/ACT nasal spray each nostril daily (every 24 hours). Dose is for each nostril. documented as of this encounter ED Notes Luli Carrera MD - 01/13/2013 3:55 PM CDT ED Provider Notes signed by Luli Carrera MD at 01/28/13 1326 Author: Luli Carrera MD Service: (none) Author Type: Physician Filed: 01/28/13 6954 Note Time: 01/13/131908 Status: Signed Automatic Beading Lathe Operator: Luli Carrera MD (Physician) NAME: SHAMIR NOLASCO MR#: [id number] CSN: [id number] AUTHENTICATING CLINICIAN: Luli Carrera MD CONFIRM #: [id number] LOC: 520 URGENT CARE PROGRESS NOTE DATE OF VISIT: 01/13/2013 : 1980 This 32-year-old female comes in with concern for having sinus infection. Has had nasal congestion, which has been going on more than 2 weeks. She feels that there might be some allergy symptoms also. Has developed a cough for the past 5, 6 days. Cough has been mostly dry. No associated fevers or chills. No wheezing or problem breathing. Cough has not been severe, but main concern is having pressure and pain in her sinuses. She has had sinus infections in the past. She has not taken any medication for these symptoms. PAST MEDICAL HISTORY: Overall healthy. She has had endometriosis in the past. MEDICATIONS: Reviewed in [facility]. ALLERGIES: She is allergic to Ambien. She does not smoke. PHYSICAL EXAMINATION: Temperature 98.5, oxygen saturation 99% on room air, blood pressure 116/75. Exam shows patient looking great. Nose is mildly congested. Throat looks normal. Ears show normal TMs bilaterally. NECK: Supple. No lymph nodes palpable. LUNGS: Clear. CARDIOVASCULAR: Regular rhythm and rate. Normal S1, S2. She is tender over maxillary sinuses. IMPRESSION: 1. Upper respiratory infection. 2. Sinusitis. PLAN: Symptomatic management with use of Mucinex and Sudafed recommended. Will treat with a course of Augmentin per [facility]. Flonase nasal spray also was given. Recheck as needed. FK:RAMIN C: CONFIRM #: [id number] documented in this encounter Miscellaneous Notes Medication History - Eloy Vernon MD - 01/13/2013 1:06 PM CDT INPATIENT MEDS Encounter Date: 01/13/13 fluticasone (FLONASE) 50 mcg/actuation nasal spray Start Date:01/13/13, End Date:04/20/13, Frequency:DAILY *No Administrations Recorded amoxicillin-clavulanate (AUGMENTIN) 875-125 mg per tablet Start Date:01/13/13, End Date:01/23/13, Frequency:2 TIMES DAILY *No Administrations Recorded documented in this encounter Plan of Treatment Not on filedocumented as of this encounter Visit Diagnoses Diagnosis URI (upper respiratory infection) - Prim shellie Acute upper respiratory infections of un specified site Acute sinusitis, unspecified Triage Assessment Note - Ruthie Suarez LPN - 01/13/2013 12:55 PM CDT sinus pain and pressure with cough x 3 weeks. documented in this encounter Care Teams Transitions Manager Rn Relationship Specialty Start Date End Date Allen Amaya MD PCP - General 02/12/12 02/01/13 [place] [address] documented as of this encounter
--- OUTSIDE RECORDS SUMMARY | 2022-03-23 17:32 | XMS_ITS | Encounter Summary ---
:1980 Author Organization [employer] Address [address] [place] [address] Care Team Providers Name Role Phone Brigid Robb MD Primary Care Provider Reason for Visit Reason Comments Medication Request Encounter Details Date Type Department Care Team Description 02/04/2013 Telephone [place] Allen Amaya Medicatio n Request Obstetrics/[place] [address] [facility] [address] [place] [address] [place] [address] [phone] (Wo rk) Social History Tobacco Use Types Packs/Day Years Used Date Smoking Tobacco: Never Assessed Sex Assigned at Date Recorded Not on file documented as of this encounter Nursing Notes Bhavana Pierson - 02/04/2013 3:14 PM CDT Called pt to notify of rx. Allen Amaya - 02/04/2013 1:29 PM CDT Script written and faxed for OCP to be taken continuously. Please notify patient. Bhavana Pierson - 02/04/2013 1:21 PM CDT Pt had her baby in Apr, and would like to start back on ocp. She would like to take continuous ocp with no side effect of spotting (outside of adjustment period). She has taken cont. in the past, and had spotting with it but thinks she didn't give it long enough. Pharmacy verified. documented in this encounter Plan of Treatment Not on filedocumented as of this encounter Visit Diagnoses Diagnosis Initiation of OCP (BCP) - Primary General counseling for prescription of o ral contraceptives documented in this encounter Care Teams Oncology Specialist Relationship Specialty Start Date End Date Brigid Robb MD PCP - General 02/02/13 02/07/14 [address] [place] [address] documented as of this encounter
--- OUTSIDE RECORDS SUMMARY | 2022-03-23 17:32 | XMS_ITS | Encounter Summary ---
:1980 [facility] Address [address] [place] [address] Care Team Providers Name Role Phone Brigid Robb MD Primary Care Provider Reason for Visit Reason Comments LAB RESULTS Encounter Details Date Type Department Care Team Description 05/12/2013 Telephone [facility] Dulce Barajas MD LAB RESULTS [address] [place] [address] [place] [address] [phone] (Wo rk) Social History Tobacco Use Types Packs/Day Years Used Date Smoking Tobacco: Never Assessed Sex Assigned at Date Recorded Not on file documented as of this encounter Nursing Notes Trina Louis - 05/12/2013 2:52 PM CST F/up strep culture was normal and resulted. 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 Strep results When and where was test done? 05/11/2013 Who ordered the test? Dulce Mann documented in this encounter Plan of Treatment Not on filedocumented as of this encounter Visit Diagnoses Not on filedocumented in this encounter Care Teams Perfect Bind Machine Operator Relationship Specialty Start Date End Date Brigid Robb MD PCP - General 02/02/13 02/07/14 [address] [place] [address] documented as of this encounter
--- OUTSIDE RECORDS SUMMARY | 2022-03-23 17:32 | XMS_ITS | Encounter Summary ---
:1980 [facility] Address [address], [place] [address] Care Team Providers Name Role Phone Brigid Robb MD Primary Care Provider Reason for Visit Reason Comments PRE-OP EXAM Encounter Details Date Type Department Care Team Description 04/20/2013 Office Visit Allen Tam Preop exa mination Obstetrics/Gynecolog MD Kiran (Primary Dx) y [address] [facility] [address] [place] [address] [place] [address] [phone] Social History Tobacco Use Types Packs/Day Years Used Date Smoking Tobacco: Never Assessed Sex Assigned at Date Recorded Not on file documented as of this encounter Last Filed Vital Signs Vital Sign Reading Time Taken Comments Blood Pressure 109/72 04/20/2013 4:12 PM JACK WINDER Pulse 70 04/20/2013 4:12 PM JACK WINDER Temperature - - Respiratory Rate - - Oxygen Saturation - - Inhaled Oxygen Concentration - - Weight 82.1 kg (181 lb) 04/20/2013 4:12 PM JACK WINDER Height - - Body Mass Index 30.59 03/24/2013 7:20 AM JACK WINDER documented in this encounter Progress Notes Allen Amaya - 04/20/2013 4:43 PM CST Here for preop H&P prior to suction D&C, Novasure ablation. See [facility] H&P form completed today. WINDER documented in this encounter Plan of Treatment Not on filedocumented as of this encounter Visit Diagnoses Diagnosis Preop examination - Primary Preoperative examination, unspecified documented in this encounter Care Teams Rn Ambulatory Relationship Specialty Start Date End Date Brigid Robb MD PCP - General 02/02/13 02/07/14 [address] [place] [address] documented as of this encounter
--- OUTSIDE RECORDS SUMMARY | 2022-03-23 17:32 | XMS_ITS | Encounter Summary ---
:1980 Author Organization [facility] Address [address], [place] [address] Care Team Providers Name Role Phone Allen Amaya MD Primary Care Provider [phone] Reason for Visit Reason Comments Skin Check ITCHING Encounter Details Date Type Department Care Team Description 10/05/2012 Office Visit Ghanshyam Buck, Postinflammator y hyperpigmentation (Primary Dx); Dermatology Amanda Gomez PA-C Notalgia paresthetica; [address] [place] [address] [place] [address] [place] [id number] Social History Tobacco Use Types Packs/Day Years Used Date Smoking Tobacco: Never Assessed Sex Assigned at Date Recorded Not on file documented as of this encounter Progress Notes Amanda Buck - 10/07/2012 2:59 PM CDT Progress Notes signed by Amanda Buck PA-C at 10/12/122056 Author: Amanda Buck PA-C Service: (none) Author Type: Physician Db2 Dba Filed: 10/12/122056 Note Time: 10/07/121906 Status: Signed Pipe Liner: Amanda Buck PA-C (Physician Db2 Dba) NAME: SHAMIR NOLASCO MR#: [id number] CSN: [id number] AUTHENTICATING CLINICIAN: Amanda Buck PA-C CONFIRM #: [id number] LOC: 527 CLINIC PROGRESS NOTE DATE OF VISIT: 10/05/2012 : 1980 SUBJECTIVE: Shamir is a 32-year-old female who presents for follow up of postinflammatory hyperpigmentation along the upper lip. I last saw Shamir on July 06, 2012, for skin discoloration from waxing unwanted hair. The patient had used an oarm-gaw-vurxmhf product that removed a layer of skin and caused discoloration. She found that Biafine cream was extremely helpful to help this heal, but she has noticed some residual hyperpigmentation developed since. She is wondering about treatment options for the hyperpigmentation. Her 2nd concern is that of persistent pruritic area along the medial upper back. She states that she has noticed this for about 1-1/2 years and has never noticed any rash in this area. She states that she has had problems with her neck, but never any known injury or concerns with her thoracic spine. Patient's last concern is that of a curiosity on general skin care, including cream for wrinkle prevention. PERSONAL SKIN HISTORY: Negative for skin cancer. FAMILY HISTORY: Negative for melanoma. CURRENT MEDICATIONS: Reviewed and updated in [employer]. ALLERGIES: Reviewed and updated in [employer]. PHYSICAL EXAMINATION: The patient is a pleasant, alert, and oriented, 32-year-old female. She defers full-body exam today. On examination of the face, along the upper lip, She has some mottled, light nazario, hyperpigmentation.She does have some foundation makeup over it today, but it is evident. The remainder of the face is clear. On examination of the upper back, there is no rash or discoloration evident today. Patient has very minimal hernesto oral rhytides, as well as minimal glabellar rhytides. ASSESSMENT AND PLAN: 1. Postinflammatory hyperpigmentation after an abrasion from waxing unwanted hair. The area has healed well and she has used sunscreen and hats routinely, but as we had discussed at the previous visit,hyperpigmentation can still occur with any inflammatory process. The patient would like to try a prescription skin bleach and therefore prescription Tri Ema was provided and is to be applied each night at bedtime for the next 12 weeks. We did discuss the risks, benefits, and possible side effects of the medication, and strongly advised patient not to continue using the cream for longer than 12 weeks. We did discuss the possibility of recurrence of the hyperpigmentation and giving herself at least a couple months to 6 months break from the skin bleach to prevent long-term discoloration from Tri Ema. 2. Notalgia paresthetica of the upper back. Discussed the likely etiology from deeper nerves along the spine that is causing this persistent pruritus. Patient admits that it is not waking her at night,but more of a nuisance. Discussed watching her posture, as this may be helpful in the jail, butthere are limited topical medications available for this. 3. I have discussed general skin care, including antiaging type products. The patient would like a prescription for tretinoin 0.025% cream, which is to be applied twice weekly and slowly increased to nightly use as tolerated. Reviewed the typical side effects of the medication, including dryness. 4. Recommended follow up and is 3 months, or as needed. SMC:RAMIN C: CONFIRM #: [id number] documented in this encounter Plan of Treatment Not on filedocumented as of this encounter Visit Diagnoses Diagnosis Postinflammatory hyperpigmentation - Lynda ger Dyschromia, unspecified Notalgia paresthetica Disturbance of skin sensation Sun-damaged skin Other chronic dermatitis due to solar ra diation documented in this encounter Care Teams Portrait Painter Relationship Specialty Start Date End Date Allen Amaya MD PCP - General 02/12/12 02/01/13 [address] [place] [address] documented as of this encounter
--- OUTSIDE RECORDS SUMMARY | 2022-03-23 17:32 | XMS_ITS | Encounter Summary ---
:1980 Author Organization [facility] [email or web address] Address [address], [place] [address] Care Team Providers Name Role Phone Brigid Robb MD Primary Care Provider Reason for Visit Reason Comments Post Op Exam Encounter Details Date Type Department Care Team Description 05/24/2013 Office Visit Allen Tam Aftercare following surgery of the genitourinary system, NEC (Primary Dx); Obstetrics/Gynecolo MD Kiran S/P endometrial ablation gy [address] [address] [place] [address] [place] [address] Social History Tobacco Use Types Packs/Day Years Used Date Smoking Tobacco: Never Assessed Sex Assigned at Date Recorded Not on file documented as of this encounter Last Filed Vital Signs Vital Sign Reading Time Taken Comments Blood Pressure 107/69 05/24/2013 7:04 AM INDUSTRIAL TRACTOR DRIVER Pulse 78 05/24/2013 7:04 AM INDUSTRIAL TRACTOR DRIVER Temperature - - Respiratory Rate - - Oxygen Saturation - - Inhaled Oxygen Concentration - - Weight 82.6 kg (182 lb) 05/24/2013 7:04 AM INDUSTRIAL TRACTOR DRIVER Height - - Body Mass Index 30.76 03/24/2013 7:20 AM INDUSTRIAL TRACTOR DRIVER documented in this encounter Progress Notes Allen Amaya - 05/24/2013 7:19 AM CST Here for post op check following Novasure endometrial ablation on 04/27/13. Procedure uncomplicated. Pathology benign.. Patient with no perioperative problems. Continues to experience brownish discharge which is decreasing. This is expected post op. Exam deferred. Normal post op check following Novasure ablation. Anticipate discharge to resolve soon. STRIAL TRACTOR DRIVER documented in this encounter Plan of Treatment Not on filedocumented as of this encounter Visit Diagnoses Diagnosis Aftercare [facility], NEC - Primary S/P endometrial ablation Other postprocedural status documented in this encounter Care Teams Welder Explosion Relationship Specialty Start Date End Date Brigid Robb MD PCP - General 02/02/13 02/07/14 [address] [place] [address] documented as of this encounter
--- OUTSIDE RECORDS SUMMARY | 2022-03-23 17:32 | XMS_ITS | Encounter Summary ---
:1980 [facility] Address [address] [place] [address] Care Team Providers Name Role Phone Brigid Robb MD Primary Care Provider Reason for Visit Reason Comments Medication Request Vaginal Discharge Encounter Details Date Type Department Care Team Description 07/13/2013 Nurse Triage [place] Allen Amaya Medicatio n Request; Obstetrics/Gynecolog MD Kiran Vaginal Discharge y [address] [facility] [address] [place] [address] [place] [address] [phone] Social History Tobacco Use Types Packs/Day Years Used Date Smoking Tobacco: Never Assessed Sex Assigned at Date Recorded Not on file documented as of this encounter Nursing Notes Allen Amaya - 07/13/2013 2:14 PM CDT Script for diflucan faxed to pharmacy. Please notify patient. Angeline Siddiqui - 07/13/2013 11:06 AM CDT Protocol: VAGINAL [id number] Affirmative: Symptoms of a vaginal yeast infection (i.e., white, thick, uoggnum-txsiqw-ibvz, itchy, not bad smelling discharge) Disposition of Home Care suggested. Pt. is requesting an Rx for Diflucan. States she has been quite ill recently and has been taking abx. Now has itching and white thick discharge. Pharmacy info is utd. Lacey Nolasco [phone] (home) documented in this encounter Plan of Treatment Not on filedocumented as of this encounter Visit Diagnoses Diagnosis Vaginal yeast infection - Primary Candidiasis of vulva and vagina documented in this encounter Care Teams Visual Specialist Relationship Specialty Start Date End Date Brigid Robb MD PCP - General 02/02/13 02/07/14 [address] [place] [address] documented as of this encounter
--- OUTSIDE RECORDS SUMMARY | 2022-03-23 17:32 | XMS_ITS | Encounter Summary ---
:1980 Author Organization [facility] Address [address], [place] [address] Care Team Providers Name Role Phone Allen Amaya MD Primary Care Provider [phone] Reason for Visit Reason Comments Back Pain Vomiting VISION, BLURRED Encounter Details Date Type Department Care Team Description 04/03/2012 Hospital Encounter [facility] Rozina Zelaya; Care Ravindra aCrter MD Back pain; [address] [facility] UR (acute u pper respiratory infection); [address] [phone] [address] Social History Tobacco Use Types Packs/Day Years Used Date Smoking Tobacco: Never Assessed Sex Assigned at Date Recorded Not on file documented as of this encounter Last Filed Vital Signs Vital Sign Reading Time Taken Comments Blood Pressure 89/54 04/03/2012 12:22 PM TAPE KELLER OPERATOR Pulse 85 04/03/2012 12:22 PM TAPE KELLER OPERATOR Temperature 36.9 ??C (98.4 ??F) 04/03/2012 10:42 AM TAPE KELLER OPERATOR Respiratory Rate 16 04/03/2012 10:42 AM TAPE KELLER OPERATOR Oxygen Saturation - - Inhaled Oxygen Concentration - - Weight - - Height - - Body Mass Index - - documented in this encounter Medications at Time of Discharge Medication Sig Dispensed Refills Start Date End Date acetaminophen (AKA Take 650 mg by 0 11/15/2011 TYLENOL) 325 MG mouth every 4 hours tabletIndications: as needed. Maximum AMANDA NEVILLE Mon 4000mg per 24 hours Nov 18, 2011 3:18 PM prn amoxicillin-clavulanate Take 1 tablet by 6 tablet 0 201104/06/2012 (aka AUGMENTIN) tablet mouth 2 times daily for 3 days. HYDROcodone-acetaminophen Take 1-2 tablets by 30 tablet 0 1 04/14/2011 06/09/2012 (AKA VICODIN,LORTAB) 5-500 mouth every 4 hours MG tablet as needed for Pain (severe pain). Vit-Fe Take 1 tablet by 0 01/16/2012 Fumarate-FA ( OR) mouth daily (every 24 hours). documented as of this encounter ED Notes Ravindra Zelaya MD - 04/03/2012 1:44 PM CST ED Provider Notes signed by Ravindra Zelaya MD at 04/04/12830 Author: Ravindra Zelaya MD Service: (none) Author Type: Physician Filed: 04/04/12830 Note Time: 04/03/12 1344 Status: Signed Trim Mounter: Ravindra Zelaya MD (Physician) NAME: SHAMIR NOLASCO MR#: [id number] CSN: [id number] AUTHENTICATING CLINICIAN: Ravindra Zelaya MD CONFIRM #: [id number] LOC: 520 URGENT CARE PROGRESS NOTE DATE OF VISIT: 04/03/2012 : 1980 CHIEF COMPLAINT: Vomiting, nose congestion, frontal headache, transient blurred vision, with chronic back discomfort during . HISTORY OF PRESENT ILLNESS: For the last 2-3 months this patient has had a mid thoracic backache. It gets worse when she sits for prolonged periods, better when she is up and moving around. She states it has been slightly worse over the last several days although she has had flares like this before. She has not had recent trauma. She is not having fever, chills, dysuria or frequency. She has had a renal ultrasound in the past that have shown hydronephrosis that was felt to be the cause of her discomfort. Again she is not having fever or chills. She said last night at 10:30 she had 5 or 6 bouts of vomiting that continued throughout the night, that is 5 or 6 in total. There is nobody else ill at home. She has not eaten any unusual foods. She has been slightly nauseated. She has not had anything to eat since this began. That has been combined with some nasal congestion and a frontal headache and she agrees that she thinks she might be getting a cold. She was up most of the night and this morning at around 9:00 a.m. she stated she felt her vision was blurred. There was not double vision. It was not difficulty seeing, she just said she had trouble focusing. She thought it might be related to fatigue and having been all up all night. There is no associated acceleration of the headache, lateralizing weakness, or neck stiffness. The patient is currently 35 weeks . PAST HISTORY: The patient has had a headache history in the past and was actually [facility] and stated she had an MRI and was told everything was fine. ALLERGIES: Per Epic. MEDICATIONS: Per Epic. She is a nonsmoker. OBJECTIVE: This is a calm, cooperative, alert female. Looks somewhat tired. BP 107/65, pulse 84, respiratory rate 16, temperature 98.4. Her extraocular movements are conjugate. Face is symmetric. Speech is clear. She swallows normally. There is no evidence of papilledema. The neck is supple. She has some nasal congestion and slight tenderness over her frontal sinuses. Tympanic membranes are not opaque, erythematous or bulging. Neck iscompletely supple. Throat is not injected. LUNGS: Clear to auscultation with good air entry. CARDIAC EXAM: No murmurs, extra heart sounds or rubs noted. ABDOMEN: Gravid fundus at 35 weeks gestation. Appropriate for size with heart noted in the right lower quadrant by me to auscultation. EXTREMITIES: Normal range of motion and strength. No CVA tenderness to palpation. No tenderness to percussion over the thoracic or lumbar spine DIAGNOSTICS: Basic metabolic profile is normal. The patient is very concerned she might be suffering some long-term kidney damage. Rapid strep is negative. Her urinalysis reveals a slightly cloudy urine, but negative for leukocyte esterase, and nitrite; however, the microscopic reveals 10-24 white cells, and moderate bacteria witha few epithelial cells. COURSE IN URGENT CARE AND TREATMENT: The patient received 4 mg of Zofran, as well as a liter of saline. She felt much better in terms of her headache. She was sitting up without any obvious difficulty. I discussed THE case with Dr. Amaya.This patient may have a urinary tract infection, she at least has pyuria, although this could be contamination with a completely negative urine dipstick other than a slightly cloudy urine. Were going to treat her with antibiotics although only 3 days . I have asked to follow up with her doctor next week. She does have an appointment on , but if she is feeling more ill, new symptoms or concerns before then, she is to reassess earlier. Obviously, if she has persistent vomiting or worsening headache she should reassess. I do not think there is any suggestion of intracranial infection, thrombosis or bleed. ASSESSMENTS: 1. Vomiting. 2. Back pain. 3. Urinary tract infection. 4. Third trimester . DISPOSITION: As above. JBF:MEDQ C: CONFIRM #: [id number] KELLER OPERATOR Ruben Ponce RN - 04/03/2012 12:23 PM CST Pt states nausea has improved some after Zofran. Ruben Ponce RN - 04/03/2012 11:42 AM CST RST negative documented in this encounter Miscellaneous Notes Medication History - Eloy Vernon MD - 04/03/2012 1:13 PM CST INPATIENT MEDS Encounter Date: 04/03/12 amoxicillin-clavulanate (AUGMENTIN) 875-125 mg per tablet Start Date:04/03/12, End Date:04/06/12, Frequency:2 TIMES DAILY *No Administrations Recorded 0.9% sodium chloride infusion Start Date:04/03/12, End Date:04/03/12, Frequency:ONCE Taken Dose Action User Route Site Recorded Comment Reason 04/03/12 1308 1,000 mL Infused Dacia Chawla RN Intravenous - 04/03/12 1308 - - 04/03/12 1145 1,000 mL Started Salud Combs RN Intravenous Not Applicable 04/03/12 1154 - - ondansetron (ZOFRAN-ODT) disintegrating tablet 4 mg Start Date:04/03/12, End Date:04/03/12, Frequency:ONCE Taken Dose Action User Route Site Recorded Comment Reason 04/03/12 1138 4 mg Given Salud Combs RN Oral - 04/03/12 1139 - - KELLER OPERATOR documented in this encounter Plan of Treatment Not on filedocumented as of this encounter Procedures Procedure Name Priority Date/Time Associated Comments Diagnosis BETA STREP FOLLOWUP Routine 04/03/2012 12:49 Resu lts for this PM TAPE KELLER OPERATOR procedure are i n the results section. URINE CULTURE STAT 04/03/2012 12:22 Vomiting Results fo r this PM TAPE KELLER OPERATOR procedure are i n the results section. EXTRA LAVENDER TOP STAT 04/03/2012 11:57 Resul ts for this TUBE AM TAPE KELLER OPERATOR procedure are i n the results section. ANION GAP STAT 04/03/2012 11:55 Results for this AM TAPE KELLER OPERATOR procedure are i n the results section. BASIC METABOLIC PANEL STAT 04/03/2012 11:55 Vomiting Re sults for this AM TAPE KELLER OPERATOR procedure are i n the results section. URINE MICROSCOPIC STAT 04/03/2012 11:30 Vomiting Result s for this AM TAPE KELLER OPERATOR procedure are i n the results section. URINALYSIS STAT 04/03/2012 11:30 Vomiting Results for this ROUTINE(MICRO IF POS) AM TAPE KELLER OPERATOR proced ure are in the results section. RAPID STREP SCREEN STAT 04/03/2012 11:30 Vomiting Resul ts for this WAIVED AM TAPE KELLER OPERATOR procedure are i n the results section. documented in this encounter Results Beta Strep Followup (04/03/2012 12:49 PM TAPE KELLER OPERATOR) [facility] Method Time Signature Strep Screen No beta HP CONVERSION hemolytic Strep Group A isolated. Comment: ? ORDERED BY: RAVINDRA ZELAYA SOURCE: Throat ? COLLECTED: ??04/03/12 12:49 ? PLATED: ? 04/03/12 12:49 Culture Strep, Follow up from Rapid Test ?? FINAL ? 04/04/12 09:32 No beta hemolytic Strep Group A isolate d. Specimen (Source) Anatomical Collection Method Collection Time Re ceived Time Location / / Volume Laterality Throat: 04/03/2012 12:49 PM TAPE KELLER OPERATOR Ravindra Zelaya MD LAB_1 Performing Organization Address City/[facility]/ZIP Code Phon e Number HP CONVERSION Urine Culture (04/03/2012 12:22 PM TAPE KELLER OPERATOR) [facility] Method Time Signature Urine Culture Mixed gram HP CONVERSION positive organisms. >100,000 cfu/mL Comment: ? ORDERED BY: RAVINDRA ZELAYA SOURCE: Urine clean catch ?COLLECTED: ??04/03/12 12:22 ? PLATED: ? 04/03/12 12:48 Culture Urine ?FINAL ? 04/04/12 10:42 Mixed gram positive organisms. ??>100,0 00 cfu/mL Specimen (Source) Anatomical Collection Method Collection Time Re ceived Time Location / / Volume Laterality Urine:clean catch 04/03/2012 12:22 PM TAPE KELLER OPERATOR Ravindra Zelaya MD LAB_1 Performing Organization Address [facility] Phon e Number HP CONVERSION EXTRA LAVENDER TOP TUBE (04/03/2012 11:57 AM TAPE KELLER OPERATOR) athologist Signature Extra Lavender Drawn HP CONVERSION Top Drawn Specimen (Source) Anatomical Collection Method Collection Time Re ceived Time Location / / Volume Laterality 04/03/2012 11:57 AM TAPE KELLER OPERATOR Narrative HP CONVERSION - 04/03/2012 11:57 AM TAPE KELLER OPERATOR Performed at [facility], [address] [place] [address] Ravindra Zelaya MD LAB_1 Performing Organization Address [facility] Phon e Number HP CONVERSION ANION GAP (04/03/2012 11:55 AM TAPE KELLER OPERATOR) athologist Signature ANION GAP 7 0 - 16 mEq/L HP CONVERSION Specimen Anatomical Collection Method Collection Time Receive d Time (Source) Location / / Volume Laterality 04/03/2012 11:55 04/03/2012 AM TAPE KELLER OPERATOR 11:55 AM TAPE KELLER OPERATOR Narrative HP CONVERSION - 04/03/2012 12:17 PM TAPE KELLER OPERATOR Performed at [facility], [address] [place] [address] Ravindra Zelaya MD LAB_1 Performing Organization Address City/[facility] Phon e Number HP CONVERSION Basic Metabolic Panel (04/03/2012 11:55 AM TAPE KELLER OPERATOR) athologist Signature Creatinine Serum 0.7 0.4 - 1.3 HP CONVERSION mg/dL Lab Glucose 72 60 - 100 HP CONVERSION mg/dL Bicarbonate 26 23 - 33 HP CONVERSION mmol/L Chloride 105 98 - 110 HP CONVERSION mEq/L Potassium 3.9 3.5 - 5.2 HP CONVERSION mEq/L Sodium 138 137 - 147 HP CONVERSION mEq/L Blood Urea 9 5 - 26 HP CONVERSION Nitrogen mg/dL Calcium 9.2 8.5 - 10.5 HP CONVERSION mg/dL Est GFR >60 >60 HP CONVERSION Am mL/min/1.7 3m2 Est GFR Non-Afr >60 >60 HP CONVERSION Am mL/min/1.7 3m2 Comment: Normal>60, moderate decrease 30 - 59, se neal decrease 15 - 29, renal failure <15 mL/min/1.73 m2 NOTE: ??Choose the eGFR result above tati ropriate for the race of the patient. Specimen Anatomical Collection Method Collection Time Receive d Time (Source) Location / / Volume Laterality 04/03/2012 11:55 04/03/2012 AM TAPE KELLER OPERATOR 11:55 AM TAPE KELLER OPERATOR Narrative HP CONVERSION - 04/03/2012 12:17 PM TAPE KELLER OPERATOR Performed at [facility], [address] [place] [address] Ravindra Zelaya MD LAB_1 Performing Organization Address [facility] Phon e Number HP CONVERSION Rapid Strep Screen Waived (04/03/2012 11:30 AM TAPE KELLER OPERATOR) Component Value Ref Test Analysis Performed At [facility] Range Method Time Signature Rapid Strep Test performed HP CONVERSIO N Screen Waived by:schmice Rapid Strep Negative for HP CONVERSION Screen Waived Streptococcus group A Comment: ? ORDERED BY: RAVINDRA ZELAYA SOURCE: Throat ? COLLECTED: ??04/03/12 11:30 ? PLATED: ? 04/03/12 12:49 Rapid Strep Screen Waived ?FINAL ? 04/03/12 12:50 ??Test performed by:jasper ? Negative for Streptococcus group A Specimen (Source) Anatomical Collection Method Collection Time Re ceived Time Location / / Volume Laterality Throat: 04/03/2012 11:30 AM TAPE KELLER OPERATOR Narrative HP CONVERSION - 04/03/2012 12:50 PM TAPE KELLER OPERATOR Performed at [facility], [address] [place], [place] [id number] Ravindra Zelaya MD LAB_1 Performing Organization Address [facility] Phon e Number HP CONVERSION (ABNORMAL) URINE MICROSCOPIC (04/03/2012 11:30 AM TAPE KELLER OPERATOR) [facility] Method Time Signature Urine WBC 10-24 (A) 0 - 4 HP CONVERSION /HPF Urine RBC None seen 0 - 2 HP CONVERSION /HPF Bacteria Urine Moderate (A) /HPF HP CONVERSIO N Epithelial Few /HPF HP CONVERSION Cells Specimen Anatomical Collection Method Collection Time Receive d Time (Source) Location / / Volume Laterality 04/03/2012 11:30 04/03/2012 AM TAPE KELLER OPERATOR 11:54 AM TAPE KELLER OPERATOR Narrative HP CONVERSION - 04/03/2012 12:06 PM TAPE KELLER OPERATOR Performed at [facility], [address] [place] [address] Ravindra Zelaya MD LAB_1 Performing Organization Address [facility] Phon e Number HP CONVERSION (ABNORMAL) URINALYSIS ROUTINE(MICRO IF POS) (04/03/2012 11:30 AM TAPE KELLER OPERATOR) [facility] Method Time Signature Urine Type Urine:clean HP CONVERSION cat Turbidity Sl Cloudy Clear HP CONVERSION (A) U BILI Negative Negative HP CONVERSION Blood Urine Negative Negative HP CONVERSION Glucose, Negative Neg-30 HP CONVERSION Qualitative U mg/dL Ketones Negative Negative HP CONVERSION Leukocyte Negative Negative HP CONVERSION Esterase Urine Nitrite Urine Negative Negative HP CONVERSION pH Urine 7.0 5.0 - 8.0 HP CONVERSION Protein Urine Negative Neg - Trace HP CONVERSION mg/dL U Specific 1.010 1.005 - HP CONVERSION [place] 1.030 Urobilinogen Negative Negative HP CONVERSION Urine Eu/dL Specimen Anatomical Collection Method Collection Time Receive d Time (Source) Location / / Volume Laterality Urine: 04/03/2012 11:30 04/03/2012 AM TAPE KELLER OPERATOR 11:54 AM TAPE KELLER OPERATOR Narrative HP CONVERSION - 04/03/2012 12:06 PM TAPE KELLER OPERATOR Performed at [facility], [address] [place] [address] Ravindra Zelaya MD LAB_1 Performing Organization Address [facility] Phon e Number HP CONVERSION documented in this encounter Visit Diagnoses Diagnosis Vomiting Vomiting alone Back pain Backache, unspecified URTI (acute upper respiratory infection) Acute upper respiratory infections of un specified site state, incidental Triage Assessment Note - Salud Combs RN - 04/03/2012 10:41 AM TAPE KELLER OPERATOR told few months ago that her kidneys are enlarged. has been having ultrasounds to watch them. has been having back pain last couple of months, last night severe right back pain and vomiting. states this morning had some blurry vision but that has passed. 35 weeks . documented in this encounter Care Teams It Operations Specialist Relationship Specialty Start Date End Date Allen Amaya MD PCP - General 02/12/12 02/01/13 [address] [place] [address] documented as of this encounter
--- OUTSIDE RECORDS SUMMARY | 2022-03-23 17:32 | XMS_ITS | Encounter Summary ---
:1980 [facility] Address [address] [place] [address] Care Team Providers Name Role Phone Brigid Robb MD Primary Care Provider Reason for Visit Reason Comments Contraception Encounter Details Date Type Department Care Team Description 03/05/2013 Telephone [place] Rosalva Pearson RN Contrac eption Obstetrics/Gynecolog y [address] [place] [address] Social History Tobacco Use Types Packs/Day Years Used Date Smoking Tobacco: Never Assessed Sex Assigned at Date Recorded Not on file documented as of this encounter Nursing Notes Brenda Munoz LPN - 03/17/2013 9:27 AM CST Patient has an appointment with Dr Amaya on 03/24/13 to discuss options. Angeline Siddiqui - 03/09/2013 9:05 AM CST 2nd message left. HAND CLAM DREDGE Angeline Siddiqui - 03/08/2013 3:43 PM CST LM for pt. to call and schedule an appt. with . HAND CLAM DREDGE Rosalva Pearson RN - 03/08/2013 11:14 AM CST Routed to [facility] Triage. HAND CLAM DREDGE Jose Luis Puneetyanelis Patton - 03/08/2013 10:45 AM CST Please have patient schedule an appointment to discuss alternatives to managing her pelvic pain attributable to endometriosis Rosalva Pearson, LEELA - 03/05/2013 3:49 PM CST Pt calling stating she tried the Junel and absolutely could not tolerate the medication d/t the the severity of her cramping in the context of Endometriosis. Asking if there is something else she can try. I did advise pt it may be worth a revisit to discuss options. She is done having children needs relief from the pain. control is not an issue as bethany had a vasectomy. Please advise with directives. Routed to [facility]. HAND CLAM DREDGE documented in this encounter Plan of Treatment Not on filedocumented as of this encounter Visit Diagnoses Not on filedocumented in this encounter Care Teams Frame Carver Spindle Relationship Specialty Start Date End Date Brigid Robb MD PCP - General 02/02/13 02/07/14 [address] [place] [address] documented as of this encounter
--- OUTSIDE RECORDS SUMMARY | 2022-03-23 17:32 | XMS_ITS | Encounter Summary ---
:1980 Author Organization [email or web address] Address [address], [place] [address] Care Team Providers Name Role Phone Allen Mahajan MD Primary Care Provider [phone] Reason for Visit Reason Comments Routine Visit Encounter Details Date Type Department Care Team Description 04/13/2012 Routine [place] Allen Mahajan Obstetrics/Gynecolo MD Kiran Visit gy [address] [address] [place], [place] [address] [address] [place], [place] [phone] (Wo rk) [address] [phone] Social History Tobacco Use Types Packs/Day Years Used Date Smoking Tobacco: Never Assessed Sex Assigned at Date Recorded Not on file documented as of this encounter Last Filed Vital Signs Vital Sign Reading Time Taken Comments Blood Pressure 116/75 04/13/2012 2:19 PM COMPUTER VIDEO GAME DESIGNER Pulse 83 04/13/2012 2:19 PM COMPUTER VIDEO GAME DESIGNER Temperature - - Respiratory Rate - - Oxygen Saturation - - Inhaled Oxygen Concentration - - Weight 94.1 kg (207 lb 6.4 oz) 04/13/2012 2:19 PM COMPUTER VIDEO GAME DESIGNER Height - - Body Mass Index 34.51 09/23/2011 7:48 AM CDT documented in this encounter Progress Notes Allen Mahajan - 04/15/2012 12:08 PM COMPUTER VIDEO GAME DESIGNER Quick Note: Reviewed. Will notify patient at upcoming OB visit. UTER VIDEO GAME DESIGNER Lala Munoz LPN - 04/13/2012 2:49 PM COMPUTER VIDEO GAME DESIGNER Addended by: LALA MUNOZ on: 04/13/2012 Modules accepted: Chio, Smart[employer] UTER VIDEO GAME DESIGNER Allen Mahajan - 04/13/2012 2:36 PM CST Thrombosed hemorrhoid. Advised General surgery follow up. GBS done. Discussed indxn on 04/26/12. RTC 1 weeks documented in this encounter Miscellaneous Notes Miscellaneous - 08/02/2016 3:15 AM CDTNotes Recorded by Allen Mahajan MD on 04/15/2012 at 12:08 PMReviewed. Will notify patient at upcoming OB visit. documented in this encounter Plan of Treatment Not on filedocumented as of this encounter Procedures Procedure Name Priority Date/Time Associated Diagnosis Comme nts GROUP B STREP Routine 04/13/2012 2:52 PM screening R esults for this SCREEN (OB PTS) COMPUTER VIDEO GAME DESIGNER for streptococcus B proce dure are in the results section. documented in this encounter Results Group B Strep Screen (OB Pts) (04/13/2012 2:52 PM COMPUTER VIDEO GAME DESIGNER) [facility] Method Time Signature Culture Strep No beta HP CONVERSION Screen Other hemolytic Source Streptococcus , Group A or B Comment: ? ORDERED BY: ALLEN MAHAJAN SOURCE: Vag/Rec ?COLLECTED: ??04/13/12 14:52 ? PLATED: ? 04/13/12 16:02 Culture Strep Screen, Other Source ? FINAL ? 04/15/12 11:31 No beta hemolytic Streptococcus, Group A or B Specimen (Source) Anatomical Collection Method Collection Time Re ceived Time Location / / Volume Laterality Vag/Rec: 04/13/2012 2:52 PM COMPUTER VIDEO GAME DESIGNER Transcriptions 08/02/2016 3:15 AM CDTNotes Recorded by Allen Mahajan MD on 04/15/2012 at 12:08 PMReviewed. Will notify patient at upcoming OB visit. Allen Mahajan MD LAB_1 Performing Organization Address City/State/ZIP Code Phon e Number HP CONVERSION documented in this encounter Visit Diagnoses Diagnosis Supervision of normal subsequent pregnan cy - Primary Supervision of other normal screening for streptococcus B screening for Streptococcus B documented in this encounter Care Teams Shift Engineer Relationship Specialty Start Date End Date Allen Mahajan MD PCP - General 02/12/12 02/01/13 [address] [place] [address] documented as of this encounter
--- OUTSIDE RECORDS SUMMARY | 2022-03-23 17:32 | XMS_ITS | Encounter Summary ---
:1980 Author Organization [facility] Address [address], [place] [address] Care Team Providers Name Role Phone Allen Amaya MD Primary Care Provider Reason for Visit Reason Comments Follow-up Encounter Details Date Type Department Care Team Description 05/07/2012 Notes/Orders [facility] [place] [address] [address] [place] [address] [place] [address] [phone] (Wo rk) Social History Tobacco Use Types Packs/Day Years Used Date Smoking Tobacco: Never Assessed Sex Assigned at Date Recorded Not on file documented as of this encounter Progress Notes Claudia Brennan RN - 05/07/2012 11:53 AM CST EPDS score is 9. documented in this encounter Plan of Treatment Not on filedocumented as of this encounter Visit Diagnoses Not on filedocumented in this encounter Care Teams Service Plumber Relationship Specialty Start Date End Date Allen Amaya MD PCP - General 02/12/12 02/01/13 [address] [place] [address] documented as of this encounter
--- OUTSIDE RECORDS SUMMARY | 2022-03-23 17:32 | XMS_ITS | Encounter Summary ---
:1980 [address] [facility] Address [address] [place] [address] Care Team Providers Name Role Phone Brigid Robb MD Primary Care Provider Encounter Details Date Type Department Care Team Description 08/30/2013 Lab Visit [facility] Black stools; [address] Nausea alone; [place] [address] Fatigue; [phone] Early satiety Social History Tobacco Use Types Packs/Day Years Used Date Smoking Tobacco: Never Assessed Sex Assigned at Date Recorded Not on file documented as of this encounter Plan of Treatment Not on filedocumented as of this encounter Procedures Procedure Name Priority Date/Time Associated Comments Diagnosis HELICOBACTER PYLORI Routine 08/30/2013 6:48 PM Black sto ols Results for this IGG CDT Early satiety procedure are in Nausea alone the results section. TSH AND FREE T4 (FRT4 Routine 08/30/2013 6:48 PM Fatigue Results for this IF TSH ABNORM) CDT procedure are in the results section. COMPLETE BLOOD Routine 08/30/2013 6:48 PM Black stools Results for this COUNT-NO DIFF CDT Nausea alone procedure are in Fatigue the results section. documented in this encounter Results TSH AND FREE T4 (FRT4 IF TSH ABNORM) (08/30/2013 6:48 PM CDT) P athologist Signature Thyroid 2.48 0.20 - HP CONVERSION Stimulating 4.50 Hormone Specimen Anatomical Collection Method Collection Time Receive d Time (Source) Location / / Volume Laterality 08/30/2013 6:48 PM 4 9:18 CDT PM CDT Sasha Naylor Jigar [facility] Performing Organization Address City/[facility]/ZIP Code Phon e Number HP CONVERSION HELICOBACTER PYLORI IGG (08/30/2013 6:48 PM CDT) [facility] Method Time Signature Helicobacter Negative Negative HP CONVERSION pylori IgG Comment: A positive Heliobacter result is common in older age groups. The test should only be used for patient s with symptoms suggestive of gastrointestinal disease a nd findings should be correlated with clinical signs and sy mptoms. Specimen Anatomical Collection Method Collection Time Receive d Time (Source) Location / / Volume Laterality 08/30/2013 6:48 PM 4 9:18 CDT PM CDT Sasha Andersonjus [facility] Performing Organization Address [facility] Phon e Number HP CONVERSION (ABNORMAL) Complete Blood Count-No Diff (08/30/2013 6:48 PM CDT) [facility] Method Time Signature White Blood Cell 7.1 3.8 - HP CONVERSION Count 11.0 Red Blood Cell 4.65 3.70 - HP CONVERSION Count 5.20 Hemoglobin 13.1 11.8 - HP CONVERSION 15.5 g/dL Hematocrit 39.3 35.0 - HP CONVERSION 46.0 % Mean Corpuscular 84.5 80.0 - HP CONVERSION Volume 100.0 fL RDW 15.8 (H) 11.0 - HP CONVERSION 15.0 % Platelet Count 291 140 - 450 HP CONVERSION Specimen Anatomical Collection Method Collection Time Receive d Time (Source) Location / / Volume Laterality 08/30/2013 6:48 PM 4 6:48 CDT PM CDT Narrative HP CONVERSION - 08/30/2013 6:51 PM CDT Performed at [facility], [address] [place] [address] Sasha Naylor Jigar [facility] Performing Organization Address City/[facility] Phon e Number HP CONVERSION documented in this encounter Visit Diagnoses Diagnosis Black stools Nonspecific abnormal finding in stool co ntents Nausea alone Fatigue Other malaise and fatigue Early satiety documented in this encounter Care Teams Last Puller Relationship Specialty Start Date End Date Brigid Robb MD PCP - General 02/02/13 02/07/14 [address] [place] [address] documented as of this encounter
--- OUTSIDE RECORDS SUMMARY | 2022-03-23 17:32 | XMS_ITS | Encounter Summary ---
:[address] [facility] Address [address] [place] [address] Care Team Providers Name Role Phone Allen Amaya MD Primary Care Provider [phone] Reason for Visit Reason Comments ABRASION Encounter Details Date Type Department Care Team Description 07/06/2012 Office Visit [facility] Amanda Buck Abrasion (Primary Dx) [address] [facility] [place] [address] [facility] [phone] [address] Social History Tobacco Use Types Packs/Day Years Used Date Smoking Tobacco: Never Assessed Sex Assigned at Date Recorded Not on file documented as of this encounter Progress Notes Amanda Buck - 07/06/2012 12:03 PM CDT Progress Notes signed by Amanda Buck PA-C at 07/06/12 1308 Author: Amanda Buck PA-C Service: (none) Author Type: Physician Roll Over Press Operator Filed: 07/06/12 130 Note Time: 07/06/12 1203 Status: Signed Computer Application Developer: Amanda Buck PA-C (Physician Roll Over Press Operator) NAME: SHAMIR NOLASCO MR#: [id number] CSN: [id number] AUTHENTICATING CLINICIAN: Amanda Buck PA-C CONFIRM #: [id number] LOC: 527 CLINIC PROGRESS NOTE DATE OF VISIT: 07/06/2012 : 1980 Shamir is a 32-year-old female who presents for evaluation of a burn from waxing her upper lip. Shewas last seen by Radhika Caban, nurse practitioner, for eyelid dermatitis and was treated with desonide cream. Prior to that, she had been seeing Dr. Bisi Ulloa for acne concerns and just recently restarted the tretinoin 0.05% cream, but admits that she only used it one time prior to waxing. She states that she bought a new product from [employer] that was a pre made waxing strip and applied it to her upper lip 2 days ago. She feels that the waxing strip peeled off the top layer of her skin and her skinhas been very tight and erythematous since. She has been using Neosporin, but feels it is difficult to smile due to the tightness of the upper lip and slightly uncomfortable due to this. She denies any swelling. She does have a history of cold sores, but has not noticed any evidence of cold sores since this episode. She continues to use a Neutrogena scrub, but has been avoiding the upper lip. She does have a 10-week-old with her today and states that she is very sp oradically, as she is planning to go back to work in 2 weeks. CURRENT MEDICATIONS: Reviewed and updated in Epic. ALLERGIES: Reviewed and updated in [employer]. EXAMINATION: The patient is a pleasant, alert and oriented 32-year-old female. Along the upper lip, the skin is light nazario, crusted nearly the entire length of the upper lip. Thereis no pronounced erythema or edema evident. No drainage or open areas evident. ASSESSMENT AND PLAN: Abrasion from waxing strip along the upper lip. I recommended Biafine cream be applied 3 times dailyto the upper lip for the next month. We had a long discussion about sunscreen use and ideally broad-brimmed hats to try to keep the sun off of this area. We did discuss the likelihood of some hyperpigmentation as it heals due to the abrasion itself as well as the hormone changes with her recent . Recommended follow up in 1 month to see how she is doing. We will consider topical hydroquinone should she be noticing some hyperpigmentation. I recommended keeping the area moist and avoiding any makeup for at least another 2 weeks. SMC:MEDQ C: CONFIRM #: [id number] documented in this encounter Plan of Treatment Not on filedocumented as of this encounter Visit Diagnoses Diagnosis Abrasion - Primary Abrasion or friction burn of other, mult iple, and unspecified sites, without mention of infection documented in this encounter Care Teams Plaster Applicator Relationship Specialty Start Date End Date Allen Amaya MD PCP - General 02/12/12 02/01/13 [address] [place] [address] documented as of this encounter
--- OUTSIDE RECORDS SUMMARY | 2022-03-23 17:32 | XMS_ITS | Encounter Summary ---
:1980 Author Organization [facility] Address [address] [place] [address] Care Team Providers Name Role Phone Allen Amaya MD Primary Care Provider Reason for Visit Reason Comments Knee Pain or Injury Encounter Details Date Type Department Care Team Description 07/07/2012 Surgical Consult Kiran Gregory Anter ior knee pain Orthopedics (Primary Dx) [address] [facility] [address] [place] [address] [id number] Social History Tobacco Use Types Packs/Day Years Used Date Smoking Tobacco: Never Assessed Sex Assigned at Date Recorded Not on file documented as of this encounter Progress Notes Kiran Hatfield MD - 07/09/2012 10:45 AM CDT Progress Notes signed by Kiran Hatfield MD at 07/09/12 1157 Author: Kiran Hatfield MD Service: (none) Author Type: Physician Filed: 07/09/12 1157 Note Time: 07/09/12 1045 Status: Signed Fountain Brush Assembler: Kiran Hatfield MD (Physician) NAME: SHAMIR NOLASCO MR#: [id number] CSN: [id number] AUTHENTICATING CLINICIAN: Kiran Hatfield MD CONFIRM #: [id number] LOC: 511 CLINIC PROGRESS NOTE DATE OF VISIT: 07/07/2012 : 1980 Ms. Nolasco is here with her 2 children for pain in her right knee which has been present since skiing 3 weeks ago. She does not really recall an injury at that time. She and her family were skiing at [facility] and since then has noted kneeling causes significant pain in the front of her knee. No obvious swelling, but she is having a lot of difficulty with daily activities going up and down stairs, squatting, kneeling. She is able to sleep. No obvious swelling as noted. She notes no numbness or tingling in her leg. No previous problems with her knee. She has had surgery for a C6-C7 cervical disk repair. She is in the . She is a nonsmoker. No chest pain, respiratory distress, or abdominal pain. REVIEW OF SYSTEMS: Today no recurrent or chronic rashes. EXAM: She is alert and oriented x3. Favors her right knee when she walks. Squats reveal pain in the front of her knee. Left knee exam isnormal. Right knee reveals tenderness in the area of the prepatellar bursa and somewhat distally along the patellar tendon. She does not have a knee effusion. There is no tenderness on either medial orlateral joint line. There is no instability with varus or valgus stress. Karli's reveals a solid endpoint. She is neurovascularly intact in her lower extremities. There is no peripheral edema. Plain x-ray of her knee is not done today. ASSESSMENT: 1. Anterior right knee pain. She has mild prepatellar bursitis with some bursal fibrosis and some mild prepatellar bursitis. 2. Mild patellar tendinopathy. PLAN: Reassured. Discussed use of a pad or protection of her knee for kneeling activities. Discussed medial quad strengthening. Would expect improvement over the next 3-6 weeks. She should follow up at that time for continued difficulties. FILOMENA:RAMIN C: CONFIRM #: [id number] documented in this encounter Plan of Treatment Not on filedocumented as of this encounter Visit Diagnoses Diagnosis Anterior knee pain - Primary Pain in joint, lower leg documented in this encounter Care Teams Magazine Writer Relationship Specialty Start Date End Date Allen Amaya MD PCP - General 02/12/12 02/01/13 [address] [place] [address] documented as of this encounter
--- OUTSIDE RECORDS SUMMARY | 2022-03-23 17:32 | XMS_ITS | Encounter Summary ---
:1980 Author [facility] Address [address] [place] [address] Care Team Providers Name Role Phone Allen Amaya MD Primary Care Provider Reason for Visit Reason Comments THRUSH Encounter Details Date Type Department Care Team Description 05/14/2012 Nurse Triage [place] Allen Amaya, [facility] Obstetrics/Gynecolog y [address] [address] [place] [address] [phone] (Wo rk) Social History Tobacco Use Types Packs/Day Years Used Date Smoking Tobacco: Never Assessed Sex Assigned at Date Recorded Not on file documented as of this encounter Nursing Notes Bhavana Pierson - 05/14/2012 3:05 PM CST Pt thinks she and baby may have thrush. Baby has white splotches on tongue and lips that can't be scraped off. (prob not milk). Pt has sore, red nipples after a period of pain free nursing. Will order APO nipple cream for pt, and instructed pt to call baby's revenue accounting manager. Pt verbalizes understanding, and encouraged to call back if worsens. documented in this encounter Plan of Treatment Not on filedocumented as of this encounter Visit Diagnoses Not on filedocumented in this encounter Care Teams Contract Processor Relationship Specialty Start Date End Date Allen Amaya MD PCP - General 02/12/12 02/01/13 [address] [place] [address] documented as of this encounter
--- OUTSIDE RECORDS SUMMARY | 2022-03-23 17:32 | XMS_ITS | Encounter Summary ---
:1980 [facility] Address [address] [place] [address] Care Team Providers Name Role Phone Brigid Robb MD Primary Care Provider Encounter Details Date Type Department Care Team Description 09/07/2013 Office Visit [facility] Chapo Naylor MD findings on radiological Gastroenterology [address] and other examination of [address] [place] [address] [place], [place] (Primary Dx) [phone] [id number] Social History Tobacco Use Types Packs/Day Years Used Date Smoking Tobacco: Never Assessed Sex Assigned at Date Recorded Not on file documented as of this encounter Progress Notes Kelley Quinones RN - 09/09/2013 8:14 AM CDT Quick Note: Please see telephone encounter. Kelley Quinones RN Chapo Sood MD - 09/09/2013 8:11 AM CDT Quick Note: No colitis seen on biopsies. Duodenal biopsies are benign. Check celiac disease serology. If the symptoms persist then consider video capsule endoscopy to evaluate small bowel. D/w the patient. Chapo Sood MD 09/09/2013, 8:10 AM Chapo Sood MD - 09/07/2013 7:28 AM CDT CC: Colonoscopy & EGD HPI: Patient here for colonoscopy and EGD. Patient has a history of Hematochezia and Melena of unknown origin. Diarrhea (3 to 4 times per month).Abd discomfort, bloating. PMH: Reviewed PSH: Reviewed Social Hx: Reviewed Allergies: Reviewed Medications: Reviewed Family History: Reviewed (No history of colon cancer) Review of Systems: Pertinent ROS done. Exam: Alert, awake and oriented. Vitals: See Provation nursing notes. Head and Neck: Examined Chest: Clear to auscultation. No wheezes or rales. CVS: Regular, rate, rhythm. Abdomen: Abdomen soft, non-tender without masses or organomegaly. Extremities: Examined ASA: P1 A normal healthy patient Plan: Colonoscopy & EGD Potential risks and complications of procedure have been discussed with patient. Chapo Sood MD 09/07/2013, 7:28 AM documented in this encounter Plan of Treatment Not on filedocumented as of this encounter Procedures Procedure Name Priority Date/Time Associated Diagnosis Comme nts COLONOSCOPY Routine 09/07/2013 8:01 Nonspecific (abnormal) Re sults for this AM CDT findings on radiological pro cedure are in and other examination of the results gastrointestinal tract secti on. GI UPPER ENDOSCOPY Routine 09/07/2013 7:24 Nonspecific (abnorm al) Results for this AM CDT findings on radiological pro cedure are in and other examination of the results gastrointestinal tract secti on. SURGICAL PATH Routine 09/07/2013 7:00 Nonspecific (abnormal) R esults for this AM CDT findings on radiological pro cedure are in and other examination of the results gastrointestinal tract secti on. documented in this encounter Results COLONOSCOPY [[id number]] (09/07/2013 8:01 AM CDT) Specimen (Source) Anatomical Collection Method Collection Time Re ceived Time Location / / Volume Laterality 09/07/2013 8:01 AM CDT Narrative [facility] ([facility]) - 09/07/2013 8:29 AM CDT Indications: ? Abdominal pain, Hematochezia, Melena, bloating Providers: ? Chapo abrams MD, Chela Lopez RN Referring MD: ? Medicines: ? Exactacaine Sp ray 2 doses, Fentanyl IV 100 mcgs, ? Versed/Mi dazolam IV 2 mgs, Zofran 4 mgs, See the ? other pro cedure note also for documentation of the ? administe red medications Complications: ? No immediate com plications. Procedure: ? Pre-Anesthesia Assessment: ? - Prior t o the procedure, a History and Physical was ? performed , and patient medications, allergies and ? sensitivi ties were reviewed. The patient's tolerance ? of previo us anesthesia was reviewed. ? - The ris ks and benefits of the procedure and the ? sedation options and risks were discussed with the ? patient. All questions were answered and informed ? consent w as obtained. ? After obt aining informed consent, the endoscope was ? passed un radha direct vision. Prior to sedation, ? patient evelina rosario and procedure was reverified. ? Throughou t the procedure, the patient's blood ? pressure, pulse, and oxygen saturations were ? monitored continuously. The Endoscope was introduced ? through t he mouth, and advanced to the second part of ? duodenum. The upper GI endoscopy was accomplished ? without d ifficulty. The patient tolerated the ? procedure well. Findings: ? The esophagus was normal. ? The stomach was normal. ? The examined duodenum was normal. Biopsies were taken with a cold ? forceps for evaluation of celiac disease. Impression: ?- Normal esoph zuly. ? - Normal stomach. ? - Normal examined duodenum. Biopsied. Recommendation: ?- Await patholog y results. ? - If the symptoms persist then consider video capsule ? endoscopy to evaluate small bowel. ? - Return to primary care physician. Procedure Code(s): ?? --- Professional - -- ? 56105, Es ophagogastroduodenoscopy, flexible, ? transoral ; with biopsy, single or multiple Diagnosis Code(s): ?? --- Professional - -- ? 789.00, A bdominal pain, unspecified site ? 578.1, Bl ood in stool CPT copyright 2013 [employer]. All rights reserved. The codes documented in this report are preliminary and upon grades 9 12 tutor review may be revised to meet current complianc e requirements. Attending Participation: Chapo Sood MD 09/07/2013 8:29 AM This report has been signed electronical ly. Number of Addenda: 0 Note Initiated On: 09/07/2013 8:01 AM Procedure Note Chapo Sood MD - 09/07/2013Form atting of this note might be different from the original. Indications: Abdominal pain, Hematochezi a, Melena, bloating Providers: Chapo Sood MD, Cee Lopez RN Referring MD: Medicines: Exactacaine [place] 2 doses, Fe ntanyl IV 100 mcgs, Versed/Midazolam IV 2 mgs, Zofran 4 mgs , See the other procedure note also for documenta tion of the administered medications Complications: No immediate complication s. Procedure: Pre-Anesthesia Assessment: - Prior to the procedure, a History and Physical was performed, and patient medications, all ergies and sensitivities were reviewed. The patien t's tolerance of previous anesthesia was reviewed. - The risks and benefits of the procedu re and the sedation options and risks were discuss ed with the patient. All questions were answered an d informed consent was obtained. After obtaining informed consent, the e ndoscope was passed under direct vision. Prior to se dation, patient identity and procedure was reve rified. Throughout the procedure, the patient's blood pressure, pulse, and oxygen saturations were monitored continuously. The Endoscope w as introduced through the mouth, and advanced to the second part of duodenum. The upper GI endoscopy was ac complished without difficulty. The patient tolerat ed the procedure well. Findings: The esophagus was normal. The stomach was normal. The examined duodenum was normal. Biops ies were taken with a cold forceps for evaluation of celiac diseas e. Impression: - Normal esophagus. - Normal stomach. - Normal examined duodenum. Biopsied. Recommendation: - Await pathology result s. - If the symptoms persist then consider video capsule endoscopy to evaluate small bowel. - Return to primary care physician. Procedure Code(s): --- Professional --- 60834, Esophagogastroduodenoscopy, flex ible, transoral; with biopsy, single or multi ple Diagnosis Code(s): --- Professional --- 789.00, Abdominal pain, unspecified sit e 578.1, Blood in stool CPT copyright 2013 [employer]. All rights reserved. The codes documented in this report are preliminary and upon grades 9 12 tutor review may be revised to meet current complianc e requirements. Attending Participation: Chapo Sood MD 09/07/2013 8:29 AM This report has been signed electronical ly. Number of Addenda: 0 Note Initiated On: 09/07/2013 8:01 AM Chapo Sood MD DIGESTIVE CARE Performing Organization Address City/State/ZIP Code Phon e Number [facility] ([facility]) [facility] ([facility]) [place], [place] GI UPPER ENDOSCOPY [[id number]] (09/07/2013 7:24 AM CDT) Specimen (Source) Anatomical Collection Method Collection Time Re ceived Time Location / / Volume Laterality 09/07/2013 7:24 AM CDT Narrative [facility]) - 09/07/2013 8:17 AM CDT Indications: ? Diarrhea (3 to 4 times per month), Hematochezia, ? Melena Providers: ? Chapo abrams MD, Chela Lopez RN Referring MD: ? Medicines: ? Fentanyl IV 20 0 mcgs, Versed/Midazolam IV 4 mgs Complications: ? No immediate com plications. Procedure: ? Pre-Anesthesia Assessment: ? - Prior t o the procedure, a History and Physical was ? performed , and patient medications and allergies were ? reviewed. The risks and benefits of the procedure and ? the sedat ion options and risks were discussed with ? the patie nt. All questions were answered and informed ? consent w as obtained. Patient identification and ? proposed procedure were verified by the physician and ? the nurse in the pre-procedure area in the procedure ? room in [facility] endoscopy suite. Mental Status ? Examinati on: alert and oriented. Airway Examination: ? normal or opharyngeal airway and neck mobility. ? Respirato ry Examination: clear to auscultation. CV ? Examinati on: regular rate and rhythm. Prophylactic ? Antibioti cs: The patient does not require ? prophylac tic antibiotics. Prior Anticoagulants: The ? patient h as taken no previous anticoagulant or ? antiplate let agents. ASA Grade Assessment: I - A ? normal, h ealthy patient. After reviewing the risks ? and benef its, the patient was deemed in satisfactory ? condition to undergo the procedure. The anesthesia ? plan was to use moderate sedation / analgesia ? (consciou s sedation). Immediately prior to ? administr ation of medications, the patient was ? re-assess ed for adequacy to receive sedatives. The ? physical status of the patient was re-assessed after ? the proce dure. ? After I o btained informed consent, the scope was ? passed un radha direct vision. Prior to sedation, ? patient i dentity and procedure was reverified. ? Throughou t the procedure, the patient's blood ? pressure, pulse, and oxygen saturations were ? monitored continuously. The Colonoscope was ? introduce d through the anus and advanced to the ? terminal ileum, with identification of the ? appendice al orifice and IC valve. The colonoscopy was ? performed without difficulty. The patient tolerated ? the proce dure well. The quality of the bowel ? preparati on was adequate. Findings: ? The terminal ileum (last few cm) appeared normal. ? Normal mucosa was found from cecu m to rectum. Biopsies were taken ? with a cold forceps from the enti re colon for evaluation of ? microscopic colitis. ? Internal hemorrhoids were found d uring retroflexion and were mild. Impression: ?- The examined portion of the ileum was normal. ? - Normal mucosa from cecum to rectum. Biopsied. ? - Interna l hemorrhoids. Recommendation: ?- Await patholog y results. ? - Perform an upper GI endoscopy today. Procedure Code(s): ?? --- Professional - -- ? 49170, Co lonoscopy, flexible, proximal to splenic ? flexure; with biopsy, single or multiple Diagnosis Code(s): ?? --- Professional - -- ? 578.1, Bl ood in stool ? 787.91, D iarrhea ? 455.0, In ternal hemorrhoids without mention of ? complicat ion CPT copyright 2013 [employer]. All rights reserved. The codes documented in this report are preliminary and upon grades 9 12 tutor review may be revised to meet current complianc e requirements. Attending Participation: Chapo Sood MD 09/07/2013 8:16 AM This report has been signed electronical ly. Number of Addenda: 0 Note Initiated On: 09/07/2013 7:24 AM Procedure Note Chapo Sood MD - 09/07/2013Form atting of this note might be different from the original. Indications: Diarrhea (3 to 4 times per month), Hematochezia, Melena Providers: Chapo Sood MD, Tiff aiden Lopez, RN Referring MD: Medicines: Fentanyl IV 200 mcgs, Versed/ Midazolam IV 4 mgs Complications: No immediate complication s. Procedure: Pre-Anesthesia Assessment: - Prior to the procedure, a History and Physical was performed, and patient medications and allergies were reviewed. The risks and benefits of the procedure and the sedation options and risks were dis cussed with the patient. All questions were answere d and informed consent was obtained. Patient identific ation and proposed procedure were verified by the physician and the nurse in the pre-procedure area in the procedure room in the endoscopy suite. Mental Sta tus Examination: alert and oriented. Airway Examination: normal oropharyngeal airway and neck mo bility. Respiratory Examination: clear to auscu ltation. CV Examination: regular rate and rhythm. P rophylactic Antibiotics: The patient does not requi re prophylactic antibiotics. Prior Anticoa gulants: The patient has taken no previous anticoagu lant or antiplatelet agents. ASA Grade Assessme nt: I - A normal, healthy patient. After reviewin g the risks and benefits, the patient was deemed in satisfactory condition to undergo the procedure. The anesthesia plan was to use moderate sedation / pamela lgesia (conscious sedation). Immediately prior to administration of medications, the gildardo ent was re-assessed for adequacy to receive sed atives. The physical status of the patient was re-a ssessed after the procedure. After I obtained informed consent, the scope was passed under direct vision. Prior to se dation, patient identity and procedure was reve rified. Throughout the procedure, the patient's blood pressure, pulse, and oxygen saturations were monitored continuously. The Colonoscope was introduced through the anus and advance d to the terminal ileum, with identification of the appendiceal orifice and IC valve. The c olonoscopy was performed without difficulty. The patie nt tolerated the procedure well. The quality of the bowel preparation was adequate. Findings: The terminal ileum (last few cm) appear ed normal. Normal mucosa was found from cecum to r ectum. Biopsies were taken with a cold forceps from the entire col on for evaluation of microscopic colitis. Internal hemorrhoids were found during retroflexion and were mild. Impression: - The examined portion of th e ileum was normal. - Normal mucosa from cecum to rectum. B iopsied. - Internal hemorrhoids. Recommendation: - Await pathology result s. - Perform an upper GI endoscopy today. Procedure Code(s): --- Professional --- 94666, Colonoscopy, flexible, proximal to splenic flexure; with biopsy, single or multipl e Diagnosis Code(s): --- Professional --- 578.1, Blood in stool 787.91, Diarrhea 455.0, Internal hemorrhoids without men tion of complication CPT copyright 2013 [employer]. All rights reserved. The codes documented in this report are preliminary and upon grades 9 12 tutor review may be revised to meet current complianc e requirements. Attending Participation: Chapo Sood MD 09/07/2013 8:16 AM This report has been signed electronical ly. Number of Addenda: 0 Note Initiated On: 09/07/2013 7:24 AM Chapo Sood MD DIGESTIVE CARE Performing Organization Address City/State/ZIP Code Phon e Number [facility] ([facility]) [facility] ([facility]) [place], [place] SURGICAL PATH (09/07/2013 7:00 AM CDT) [facility] Signature Histology (NOTE) [facility] Patient Name: SHAMIR NOLASCO Taken: 09/07/2013 Received: 09/07/2013 Reported: 09/08/2013 Physician(s): Chapo Sood ? Final Pathologic Diagnosis A. Colon, random, biopsy -- No diagnostic abnormality B. ??Duodenum, second portion, biopsy -- Mild increase in intraepithelial lymphocytes without villous blunting (see co mment) Comments This finding is nonspecific. ??Clinical correlation is requi red. aa09/08/2013 Electronically Signed Out By ? Alisha Parson MD ??([id number] ) Procedures/Addenda Clinical History Screen, melena Gross Description A. ??The specimen is received in formalin and labeled with t he patient's name and A. ??The specimen consists of multiple nazario-white irregular soft tissue fragments averaging 0.3 cm. ??The spec imen is filtered and entirely submitted in one cassette. B. ??The specimen is received in formalin and labeled with t he patient's name and B. ??The specimen consists of at least six nazario-white irregular soft tissue fragments averaging 0.3 cm. ??The specimen is filtered and entirely submitted in one cassette. ??dt rufus/09/07/2013 Microscopic Description Microscopic examination is performed on two slides. ?? ejaa/09/08/2013 Alisha Parson MD ??([id number] ) [facility] Department of Pathology [address] [place] [address] ??[id number] Specimen Anatomical Collection Method Collection Time Receive d Time (Source) Location / / Volume Laterality COLON STRUCTURE / 09/07/2013 7:00 AM 08/13 Unknown CDT 11:14 AM CDT DUODENAL STRUCTURE 09/07/2013 7:00 AM / Unknown CDT 11:14 AM CDT Chapo Sood MD LAB_1 Performing Organization Address City/State/ZIP Code Phon e Number [id number] [id number] documented in this encounter Visit Diagnoses Diagnosis Nonspecific (abnormal) findings on radio logical and other examination of gastrointestinal tract - Primary documented in this encounter Care Teams Skoog Patching Machine Operator Relationship Specialty Start Date End Date Brigid Robb MD PCP - General 02/02/13 02/07/14 [address] [place] [address] documented as of this encounter
--- OUTSIDE RECORDS SUMMARY | 2022-03-23 17:32 | XMS_ITS | Encounter Summary ---
:1980 [facility] Address [address] [place] [address] Care Team Providers Name Role Phone Allen Amaya MD Primary Care Provider Reason for Visit Reason Comments Concerns Vomiting Encounter Details Date Type Department Care Team Description 04/08/2012 Telephone Allen Tam Concerns; Obstetrics/Gynecolog charlotte Beck MD Vomiting [address] [facility] [address] [place] [address] [place] [address] [phone] (Wo rk) Social History Tobacco Use Types Packs/Day Years Used Date Smoking Tobacco: Never Assessed Sex Assigned at Date Recorded Not on file documented as of this encounter Nursing Notes Jesika Johnson - 04/08/2012 11:10 AM CST pt calls stating she's down in [facility] right now waiting to be seen. Minimum 2 hour wait. Has been vomiting for 12 hours, states she gaggin on my spit. RN advised ER for monitoring and hydration. The patient indicates understanding of these issues and agrees with the plan. documented in this encounter Plan of Treatment Not on filedocumented as of this encounter Visit Diagnoses Not on filedocumented in this encounter Care Teams Coding Director Relationship Specialty Start Date End Date Allen Amaya MD PCP - General 02/12/12 02/01/13 [address] [place] [address] documented as of this encounter
--- OUTSIDE RECORDS SUMMARY | 2022-03-23 17:32 | XMS_ITS | Encounter Summary ---
:1980 Author Organization [facility] Address [address] [address] Care Team Providers Name Role Phone Brigid Robb MD Primary Care Provider Reason for Visit Reason Comments Questions Encounter Details Date Type Department Care Team Description 03/25/2013 Telephone Allen Tam Que stions Obstetrics/Gynecolog y [address] [place] [address] [place] [address] [phone] (Wo rk) Social History Tobacco Use Types Packs/Day Years Used Date Smoking Tobacco: Never Assessed Sex Assigned at Date Recorded Not on file documented as of this encounter Nursing Notes Emily Jones RN - 03/26/2013 1:22 PM CST Patient called. Has not heard from anyone regarding scheduling ablation. Advised I would route to schedulers. Also gave her their number. Advised to call back if no one has called her by 1500. Umu Perez MA - 03/25/2013 2:01 PM CST surgery form on desk. Surgery scheduled for 04/27/13 - will complete scheduling when form is completed Allen Garcia - 03/25/2013 1:32 PM CST Spoke with patient. Prefers to proceed to endometrial ablation at this time. Will forward message tosurgical medical office scheduler. Please schedule procedure for first week or 2 in April. Put a surgical scheduling form on my desk to complete when next in office. Procedure will be Suction D&C with Novasure endometrial ablation. Indications are menorrhagia, endometriosis and dysmenorrhea Jesika Johnson - 03/25/2013 1:07 PM CST Pt was seen yesterday for follow up of pelvic pain and the recommendation was hysterectomy. Pt now states she has a few questions for the provider regarding the procedure. Jose Luis: please call pt to discuss and answer her questions Lacey Nolasco [phone] (ok to leave message) SCIENCE TECHNOLOGY INSTRUCTOR documented in this encounter Plan of Treatment Not on filedocumented as of this encounter Visit Diagnoses Not on filedocumented in this encounter Care Teams Chemist Steroids Relationship Specialty Start Date End Date Brigid Robb MD PCP - General 02/02/13 02/07/14 [address] [place] [address] documented as of this encounter
--- OUTSIDE RECORDS SUMMARY | 2022-03-23 17:32 | XMS_ITS | Encounter Summary ---
:1980 Author Organization [facility] Address [address], [place] [address] Care Team Providers Name Role Phone Brigid Robb MD Primary Care Provider Reason for Visit Reason Comments PELVIC PAIN Encounter Details Date Type Department Care Team Description 03/24/2013 Office Visit Allen Tam Female pe lvic pain (Primary Dx); Obstetrics/Gynecolo MD Kiran Dysmenorrhea; gy [address] Endometriosis [address] [place] [place] [address] Social History Tobacco Use Types Packs/Day Years Used Date Smoking Tobacco: Never Assessed Sex Assigned at Date Recorded Not on file documented as of this encounter Last Filed Vital Signs Vital Sign Reading Time Taken Comments Blood Pressure 110/70 03/24/2013 7:20 AM PROVISIONING ANALYST Pulse 79 03/24/2013 7:20 AM PROVISIONING ANALYST Temperature - - Respiratory Rate - - Oxygen Saturation - - Inhaled Oxygen Concentration - - Weight 82.1 kg (181 lb) 03/24/2013 7:20 AM PROVISIONING ANALYST Height 163.8 cm (5' 4.5) 03/24/2013 7:20 AM PROVISIONING ANALYST Body Mass Index 30.59 03/24/2013 7:20 AM PROVISIONING ANALYST documented in this encounter Patient Instructions Patient InstructionsBrenda Munoz LPN - 03/24/2013 7:19 AM CST Thank you for enrolling in [employer]. Please follow the instructions below to securely access your online medical record. [employer] allows you to send messages to your doctor, view your test results, renewyour prescriptions, schedule appointments, and more. How Do I Sign Up? 1. In your Internet browser, go to: [email or web address] 2. Click on the Enter Activation Code link under the New User? section. You will see the New Member Sign Up page. 3. Enter your [employer] Activation Code exactly as it appears below. You will not need to use this code after you???ve completed the sign-up process. If you do not sign up before the expiration date, youmust request a new code. [employer] Activation Code: [email or web address] Expires: 04/23/2013 7:19 AM 4. Enter the last four digits of your Social Security Number ([id number]) and Date of (mm/dd/yyyy) as indicated and click Next. You will be taken to the next sign-up page. 5. Create a [facility] ID. This will be your [employer] login ID and cannot be changed, so think of one that is secure and easy to remember. 6. Create a [employer] password. You can change your password at any time. 7. Enter your Security Question and Answer. This can be used at a later time if you forget your password. Click Next. 8. Enter your e-mail address. You will receive e-mail notification when new information is availablein [employer]. 9. Click Sign In. You can now view your medical record. Additional Information If you have questions, you can call [phone] to talk to our [employer] staff. Remember, [employer] is NOT to be used for urgent needs. For medical emergencies, dial 911. ISIONING ANALYST documented in this encounter Progress Notes Allen Amaya - 03/24/2013 8:12 AM CST Progress Notes signed by Allen Amaya MD at 03/25/13 0901 Author: Allen Amaya MD Service: (none) Author Type: Physician Filed: 03/25/13 0901 Note Time: 03/24/131941 Status: Signed Drip Box Tender: Allen Amaya MD (Physician) NAME: SHAMIR NOLASCO MR#: [id number] CSN: [id number] AUTHENTICATING CLINICIAN: Allen Amaya MD CONFIRM #: [id number] LOC: 512 CLINIC PROGRESS NOTE DATE OF VISIT: 03/24/2013 : 1980 Shamir Nolasco is a 33-year-old, female, para 2, last menstrual period 02/27/2013 who presents for evaluation of pelvic pain, endometriosis and dysmenorrhea. She has been having severe pelvic pain primarily related to menstruation since the delivery of her last child. She attributes this to end ometriosis. She is status post vaginal delivery on April 26, 2012. Her pelvic pain began in approximately 2008, worsened over the next several years, and in April she underwent a diagnostic laparoscopy, multiple endometriotic implants were cauterized at thattime. She subsequently went on to conceive shortly thereafter with delivery in April of 2012. Thiswas a very difficult complicated by an abnormal nuchal cord screen with a normal karyotype. She had an elevated GCT with a normal GTT and borderline macrosomia in a growth span. The pregnancywas also complicated by hydronephrosis and migraine headaches as well as hemorrhoids. She does not want to have any additional children. Her is now status post vasectomy. She presents today essentially to discuss ongoing strategies for management of her chronic pelvic pain, dysmenorrhea, all presumably related to endometriosis. We discussed both hormonal and surgical remedies. She is interested in definitive management, having completed her childbearing. Our conversation focused primarily on hysterectomy, which she is going to consider, consult with her , and then contact me to likely schedule something in the foreseeable future. Physical examination was deferred today. 10 minutes were spent in reviewing her past workup, her present symptoms and the management strategies of presumed endometriosis. CJS:MEDQ C: CONFIRM #: [id number] ISIONING ANALYST documented in this encounter Plan of Treatment Not on filedocumented as of this encounter Visit Diagnoses Diagnosis Female pelvic pain - Primary Unspecified symptom associated with fema le genital organs Dysmenorrhea Endometriosis Endometriosis, site unspecified documented in this encounter Care Teams Concrete Block Molder Relationship Specialty Start Date End Date Brigid Robb MD PCP - General 02/02/13 02/07/14 [address] [place] [address] documented as of this encounter
--- OUTSIDE RECORDS SUMMARY | 2022-03-23 17:32 | XMS_ITS | Encounter Summary ---
:1980 Author Organization [facility] Address [address] [address] Care Team Providers Name Role Phone Brigid Robb MD Primary Care Provider Reason for Visit Reason Comments Fax Encounter Details Date Type Department Care Team Description 02/05/2013 Telephone [facility] Brigid Apodaca MD Fax [address] [facility]. [address] [place] [address] [place] [address] [phone] (Wo rk) Social History Tobacco Use Types Packs/Day Years Used Date Smoking Tobacco: Never Assessed Sex Assigned at Date Recorded Not on file documented as of this encounter Nursing Notes Angeline Tejada MA - 02/05/2013 11:11 AM CDT Faxed per patients request. Lissa Hayden - 02/05/2013 9:43 AM CDT Form Tracking Primary Ups Driver: Brigid Robb Type of form (i.e. School,camp)? Patient would like a letter faxed to employer stating she had the flu shot on 01/15/13. Patient states she would like letter faxed this morning. Please assist. Date needed: rolo Mail/Pickup/Fax: Have you signed a consent form for release of this information? yes documented in this encounter Plan of Treatment Not on filedocumented as of this encounter Visit Diagnoses Not on filedocumented in this encounter Care Teams Flat Lock Operator Relationship Specialty Start Date End Date Brigid Robb MD PCP - General 02/02/13 02/07/14 [address] [place] [address] documented as of this encounter
--- OUTSIDE RECORDS SUMMARY | 2022-03-23 17:32 | XMS_ITS | Encounter Summary ---
:1980 Author [facility] Address [address], [place] [address] Care Team Providers Name Role Phone Allen Amaya MD Primary Care Provider Reason for Visit Reason Comments Back Pain Encounter Details Date Type Department Care Team Description 10/20/2012 Hospital Encounter Reading Urgent Horacio, Back pain (Primary Care Zeeshan Carter MD Dx) [address] [phone] [id number] Social History Tobacco Use Types Packs/Day Years Used Date Smoking Tobacco: Never Assessed Sex Assigned at Date Recorded Not on file documented as of this encounter Last Filed Vital Signs Vital Sign Reading Time Taken Comments Blood Pressure 98/67 10/20/2012 11:58 AM CDT Pulse 69 10/20/2012 11:58 AM CDT Temperature 36.3 ??C (97.3 ??F) 10/20/2012 11:58 AM CDT Respiratory Rate 16 10/20/2012 11:58 AM CDT Oxygen Saturation - - Inhaled Oxygen Concentration - - Weight - - Height - - Body Mass Index - - documented in this encounter Medications at Time of Discharge Medication Sig Dispensed Refills Start Date End Date cyclobenzaprine (aka Take 10 mg by mouth 0 201212/14/2012 FLEXERIL) tablet 3 times daily as needed. fluocinolone-hydroquinone- Apply to affected 30 g 2 12/14/2012 tretinoin 0.01-4-0.05 % areas, face, at cream bedtime. oxyCODONE-acetaminophen Take 1-2 tablets by 0 12/201212/14/2012 (aka PERCOCET) 5-325 MG mouth every 4 hours tablet as needed. Maximum 12 tablets/24 hours predniSONE (aka DELTASONE) Take with food. 6 21 tablet 0 12/14/2012 tabletIndications: Back tablets on day one pain and reduce by one tablet daily until gone tretinoin, Facial Apply topically 0 10/05/2012 Wrinkles, (REFISSA) 0.05 % nightly. Apply to cream cleansed and dried skin. documented as of this encounter ED Notes Zeeshan Leonard MD - 10/20/2012 2:22 PM CDT ED Provider Notes signed by Zeeshan Leonard MD at 10/21/12819 Author: Zeeshan Leonard MD Service: (none) Author Type: Physician Filed: 10/21/12819 Note Time: 10/20/121652 Status: Signed Library Circulation Assistant: Zeeshan Leonard MD (Physician) NAME: SHAMIR NOLASCO MR#: [id number] CSN: [id number] AUTHENTICATING CLINICIAN: Zeeshan Leonard MD CONFIRM #: [id number] LOC: 520 URGENT CARE PROGRESS NOTE DATE OF VISIT: 10/20/2012 : 1980 CHIEF COMPLAINT: Back injury and discomfort. HISTORY OF PRESENT ILLNESS: This patient was at a parade holding her 5-month-old child on . She had some soreness in hermid lower back at that time. It has gotten worse since that time. It is quite difficult for her to move around at times. It does not radiate to her legs. She has not had bowel or bladder symptoms. She has a history of cervical disk disease and is concerned that perhaps she has a disk in her back. Again, there has been no bowel or bladder symptoms or radiation to her legs. She is currently in the services. PAST HISTORY: 1. Herpes simplex. 2. Dysmenorrhea. 3. DJD, neck. 4. Generalized headaches. ALLERGIES: Per Epic. MEDS: Per Epic. OBJECTIVE: This is a calm, cooperative female. When I enter the room she is sitting with her legs crossed. VITAL SIGNS: Normal. She gets up slowly, guarding movement of her back. She has normal reflexes and strength in her lowerextremities. There is no straight-leg raise sign. She is tender on bilateral SI joints without any erythema. There is no central spinal tenderness. She lays down and gets up guarding back movement. MEDICAL DECISION MAKING: This patient actually advised me that she was in the ER over the weekend and has some Percocet and Flexeril, but it is not helping tremendously. I told her at this point we do not have obvious physicalrepresentation of a nerve root impingement, but certainly a course of steroids may be, in fact, helpful for her. I am going to give her prednisone for 6 days beginning at 60 mg and weaning. I advised her if increased symptoms or concerns, she is to reassess. If it is not improving, would consider referral to physical therapy. I would like to give her some more time to see if this improves spontaneously and also advised her that she can expect to have a sore back for at least several weeks. I emphasized the fact, again, that if this is persistent and ongoing, that physical therapy may be a good choice and, of course, if she has progressive symptoms, imaging would be appropriate, although I do not think it is appropriate at this time. ASSESSMENT: Back pain. DISPOSITION: As above. JBF:MEDQ C: CONFIRM #: [id number] documented in this encounter Miscellaneous Notes Medication History - Eloy Vernon MD - 10/20/2012 12:32 PM CDT INPATIENT MEDS Encounter Date: 10/20/12 predniSONE (DELTASONE) 10 mg tablet Start Date:10/20/12, End Date:12/14/12, Frequency:- *No Administrations Recorded oxyCODONE-acetaminophen (PERCOCET) 5-325 mg per tablet Start Date:-, End Date:12/14/12, Frequency:EVERY 4 HOURS PRN *No Administrations Recorded cyclobenzaprine (FLEXERIL) 10 mg tablet Start Date:-, End Date:12/14/12, Frequency:3 TIMES DAILY PRN *No Administrations Recorded documented in this encounter Plan of Treatment Not on filedocumented as of this encounter Visit Diagnoses Diagnosis Back pain - Primary Backache, unspecified Triage Assessment Note - Caitlin Cunningham RN - 10/20/2012 11:56 AM CDT Pt injured back on 10/15/12, was seen in the ER on Friday where she received percocet and flexeril, she is getting little to no relief. documented in this encounter Care Teams Rack Puncher Relationship Specialty Start Date End Date Allen Amaya MD PCP - General 02/12/12 02/01/13 [place] [address] documented as of this encounter
--- OUTSIDE RECORDS SUMMARY | 2022-03-23 17:32 | XMS_ITS | Encounter Summary ---
:1980 Author [facility] Address [address], [place] [address] Care Team Providers Name Role Phone Brigid Robb MD Primary Care Provider Reason for Visit Reason Comments Cough Encounter Details Date Type Department Care Team Description 06/24/2013 Office Visit [facility] Debra Pike Chr onic cough (Primary Dx); Medicine MD Patricia Globus sensation [address] [employer] [facility] [address] [place] [address] [address] [phone] [place] [address] (Wo rk) Social History Tobacco Use Types Packs/Day Years Used Date Smoking Tobacco: Never Assessed Sex Assigned at Date Recorded Not on file documented as of this encounter Last Filed Vital Signs Vital Sign Reading Time Taken Comments Blood Pressure 102/78 06/24/2013 1:10 PM CDT Pulse 92 06/24/2013 1:10 PM CDT Temperature 36.7 ??C (98.1 ??F) 06/24/2013 1:10 PM CDT Respiratory Rate - - Oxygen Saturation - - Inhaled Oxygen Concentration - - Weight 82.1 kg (181 lb) 06/24/2013 1:10 PM CDT Height - - Body Mass Index 30.59 03/24/2013 7:20 AM APPLIANCE SERVICE TECHNICIAN documented in this encounter Patient Instructions Patient InstructionsYolanda Awan - 06/24/2013 2:11 PM CDT ENT [phone] documented in this encounter Progress Notes Debra Pike MD - 06/28/2013 12:54 PM CDT SUBJECTIVE: 33 y.o.female with cough. Feels she has had a cough on and off for 5-6 months. Recently much worse. [facility] Started antibiotics for sinus infection starting 2 days ago. Augmentin. She has been coughing so much she cannot sleep well. They also gave her the Tessalon Perles which do not help. She has had no ear symptoms. No current fevers or chills. Prior to this she has had chronic throat irritation for 5-6 months. Feels a slight cough. Hoarse voice. Minimal sputum. Notes no nasal drainage or acid reflux. Thought maybe it was allergies. Tried Flonase and Claritin without much help. Tried an old meter dose inhaler. She does not smoke. Allergies Allergen Reactions ??? Deejay Stoddard Blacks out Outpatient Prescriptions Prior to Visit Medication Sig Dispense Refill ??? albuterol 2.5 mg /3 mL (0.083 %) nebulizer solution Take 3 mLs by nebulization every 4 hours as needed for Wheezing for 5 days. 75 mL 0 ??? albuterol HFA 90 mcg/actuation inhaler Inhale 1-2 puffs every 4 hours as needed for Shortness ofBreath for 7 days. Please add head of physics 8 g 0 ??? fluticasone (FLONASE) 50 mcg/actuation nasal spray Place 2 sprays into each nostril daily (every24 hours) for 30 days. Dose is for each nostril. Indications: ALLERGIC RHINITIS 16 g 0 No facility-administered medications prior to visit. reports that she has never smoked. She does not have any smokeless tobacco history on file. Past Medical History Diagnosis Date ??? Cervical radiculopathy at C6 ??? Endometriosis ??? Acne vulgaris ??? Headache Past Surgical History Procedure Laterality Date ??? Tonsillectomy and adenoidectomy LW Problem: Tonsillectomy & Adenoidectomy S/p LW Onset: 1983 ??? [place] tooth extraction ??? Pr endometrial ablation, thermal 04/27/13 Path benign Social History: Lives independently OBJECTIVE: Vitals: BP 102/78 Pulse 92 Temp(Src) 36.7 ??C (98.1 ??F) (Oral) Wt 82.101 kg (181 lb) BMI 30.6 kg/m2 General: White female Eyes: No icterus or injection. Ears: Normal pinnae, canals, and TM's. Throat: Moist mucous membranes without lesions, erythema, or exudate. Neck: Supple, without masses, lymphadenopathy or tenderness. No thyromegaly or thyroid nodules. No carotid bruits. No jugular venous distension. Respiratory: Normal respiratory effort. Lungs are clear with good breath sounds. Heart: RR without murmurs, rubs, or gallops. 2/4 radial artery pulse bilaterally. Extremities: Full ROM without limitation, deformity or edema. ASSESSMENT: 1. Encounter Diagnoses Name Primary? Chronic cough Yes ??? Globus sensation PLAN: 1. chest x-ray is clear. She will complete the Augmentin. Robitussin with codeine for current symptoms. See ENT for hoarseness and globus sensation. May want to consider trial of PPI for one month. 2. Orders Placed This Encounter Procedures ??? XR Chest * PA and Left Lateral (Standard) ??? Ambulatory referral to ENT Orders Placed This Encounter Medications ??? guaiFENesin-codeine (GUAIFENESIN AC) 100-10 mg/5 mL liquid Sig: Take 5 mLs by mouth every 4 hours as needed for Cough. Dispense: 120 mL Refill: 0 Patient Instructions ENT [phone] The patient was discharged ambulatory and in stable condition. *SH~DNS~SOAP documented in this encounter Plan of Treatment Not on filedocumented as of this encounter Visit Diagnoses Diagnosis Chronic cough - Primary Cough Globus sensation Gastrointestinal malfunction arising fro m mental factors documented in this encounter Care Teams Eyeglass Fitter Relationship Specialty Start Date End Date Brigid Robb MD PCP - General 02/02/13 02/07/14 [address] [place] [address] documented as of this encounter
--- OUTSIDE RECORDS SUMMARY | 2022-03-23 17:32 | XMS_ITS | Encounter Summary ---
:1980 Author Organization [facility] Address [address] [place] [address] Care Team Providers Name Role Phone Allen Amaya MD Primary Care Provider Reason for Visit Reason Comments SHOT,FLU Encounter Details Date Type Department Care Team Description 01/15/2013 Immunization [facility] NurseCalvin Need for immunization [address] [facility] [place] [address] (Primary Dx) [phone] Social History Tobacco Use Types Packs/Day Years Used Date Smoking Tobacco: Never Assessed Sex Assigned at Date Recorded Not on file documented as of this encounter Plan of Treatment Not on filedocumented as of this encounter Visit Diagnoses Diagnosis Need for immunization against influenza - Primary Need for prophylactic vaccination and in oculation against influenza documented in this encounter Care Teams Physical Meteorologist Relationship Specialty Start Date End Date Allen Amaya MD PCP - General 02/12/12 02/01/13 [place] [address] documented as of this encounter
--- OUTSIDE RECORDS SUMMARY | 2022-03-23 17:32 | XMS_ITS | Encounter Summary ---
:1980 Author Organization [facility] (Former[facility] Address [address] [address] Care Team Providers Name Role Phone Allen Amaya MD Primary Care Provider [phone] Reason for Visit Reason Comments Follow-up Encounter Details Date Type Department Care Team Description 06/09/2012 Office Visit Sonja Cagle Routine p ostpartum follow- up (Primary Dx); Obstetrics/Gynecolog y CARLITOS Patton, CLIENT ONBOARDING ANALYST Herpes simplex without mention of compli cation; [address] Otitis media; [place] [address] [place] Unspecified hemorrhoids with out mention of complication [phone] Social History Tobacco Use Types Packs/Day Years Used Date Smoking Tobacco: Never Assessed Sex Assigned at Date Recorded Not on file documented as of this encounter Last Filed Vital Signs Vital Sign Reading Time Taken Comments Blood Pressure 100/66 06/09/2012 11:37 AM STITCH WHEELER Pulse - - Temperature - - Respiratory Rate - - Oxygen Saturation - - Inhaled Oxygen Concentration - - Weight 81.6 kg (180 lb) 06/09/2012 11:37 AM STITCH WHEELER Height 165.1 cm (5' 5) 06/09/2012 11:37 AM STITCH WHEELER Body Mass Index 29.95 06/09/2012 11:37 AM STITCH WHEELER documented in this encounter Progress Notes Sonja Dalton APRN, CLIENT ONBOARDING ANALYST - 06/09/2012 6:15 PM CST Progress Notes signed by BHUMIKA Neil at 06/10/121741 Author: BHUMIKA Neil Service: (none) Author Type: Nurse Practitioner Filed: 06/10/121741 Note Time: 06/09/121814 Status: Signed Automatic Pilot Mechanic: BHUMIKA Neil (Nurse Practitioner) NAME: SHAMIR NOLASCO MR#: [id number] CSN: [id number] AUTHENTICATING CLINICIAN: BHUMIKA Neil CONFIRM #: [id number] LOC: 512 CLINIC PROGRESS NOTE DATE OF VISIT: 06/09/2012 : 1980 SUBJECTIVE: Patient is a 32-year-old, white female, G2, P2, presents to clinic today for routine visit. The patient is concerned today as she has noticed quite a bit of right ear pain times 1-1/2 weeks. She has used ytgc-nyo-zeoukei Claritin but it just is not working. The patient also states that she isvery bothered by her hemorrhoids. She states that they have improved but they are not 100% better. The patient states that she has used hrhi-nov-jmnyqtk medication but this really has not helped her. She is trying to keep her stools soft. However, states that she does note some slight bleeding with her stools, as well as a qvzb-khs-ciozam effect. I did encourage her to use stool softeners on a daily basis, such as MiraLAX, and the patient will try this. The patient would also like a prescription for Valtrex and she does get oral herpes lesions, and states that the Valtrex does help this. She states that her prescription has run out. The patient states that it has been very stressful the last several days. Her baby is in the hospital for RSV. The patient denies any other problems at this time. was complicated by the followin. Abnormal nuchal cord screen with a normal karyotype on [facility]. 2. Elevated [place] with a normal 3 hour. 3. Borderline macrosomia on growth scan. 4. Hydronephrosis. 5. Migraines. 6. Hemorrhoids. DELIVERY HISTORY: The patient delivered a male , Demarcus, on 04/26/2012, weighing 8 pounds, 11 ounces. This was done at 39 weeks. Normal spontaneous vaginal delivery. course has been complicated by thrush; both she and her baby had thrush. He was treated and she was treated with Diflucan. Hemorrhoids. The patient had a first-degree laceration that was repaired. Lochia is just very scant. LMP was 07/29/2011. The patient has not had intercourse as of yet. CONTRACEPTIVES: Her will get a vasectomy. Until that time, she will be using condoms. The patient plans to return to work in July. She denies any depression. Her EPDS score was 3. The patient has elected to breastfeed her . She states, however, while he was in the hospital with RSV, he is doing better on the bottle and she is pumping. Last Pap was 09/23/2011. No history of abnormal Paps. MEDICATIONS: Updated in [employer]. ALLERGIES: Updated in [employer]. PERSONAL AND FAMILY HEALTH HISTORY: Updated in [employer]. OBJECTIVE: VITAL SIGNS: Can be found in [employer]. GENERAL: The patient is a WD, WN, female, alert and orientated x3. Appears to be in no acute distress. HEENT: Eyes: Sclerae clear. Pupils are equal. Left ear appears normal. Right ear. The TM is very redand bulging. Mouth, lips, and gums appear normal. NECK: There is no cervical lymphadenopathy noted. ABDOMEN: Soft, nontender. No organomegaly, CVA, or suprapubic tenderness noted. PELVIC: External genitalia without lesions, redness, or discharge. The episiotomy has healed well. Vagina is pink and rugated. Just a scant amount of clear vaginal discharge noted. Cervix is firm, mobile, and nontender. Uterus is small, involuted, ante, mobile, and nontender. Adnexa are negative. No masses or tenderness noted. RECTAL: There is a small her non-thrombosed hemorrhoid noted. PSYCHIATRIC: Appropriate mood and affect. ASSESSMENT: 1. Right otitis media. 2. Hemorrhoids. 3. Routine exam. 4. Contraceptive counseling. PLAN: 1. Augmentin 875 mg one p.o. b.i.d. x7 days. 2. Diflucan 150 mg one p.o. today and repeat in 5-7 days. (This is for prophylaxis as the patient does get yeast when she is placed on antibiotics.) 3. Valtrex 500 mg one p.o. b.i.d. p.r.n. 4. Proctocort, use as directed. If no improvement with hemorrhoid within the next 1-2 weeks or if she notes increased bleeding from hemorrhoid, she is to be seen in consultation with family practice. The patient did voice understanding of this. Total time with patient was approximately 25 minutes. Total education was 15 minutes, including diet, exercise, hemorrhoidal care. Patient did voice understanding of this. AJ:MEDQ C: CONFIRM #: [id number] CH WHEELER Sonja Dalton APRN, CNP - 06/09/2012 5:52 PM CST see dictation documented in this encounter Plan of Treatment Not on filedocumented as of this encounter Visit Diagnoses Diagnosis Routine follow-up - Primary Herpes simplex without mention of compli cation Otitis media Unspecified otitis media Unspecified hemorrhoids without mention of complication documented in this encounter Care Teams Hot Plate Press Operator Relationship Specialty Start Date End Date Allen Amaya MD PCP - General 02/12/12 02/01/13 [address] [place] [address] documented as of this encounter
--- OUTSIDE RECORDS SUMMARY | 2022-03-23 17:32 | XMS_ITS | Encounter Summary ---
:1980 Author Organization [facility] Address [address] [place] [address] Care Team Providers Name Role Phone Allen Amaya MD Primary Care Provider [phone] Reason for Visit Reason Comments HEMORRHOIDS Encounter Details Date Type Department Care Team Description 04/09/2012 Telephone Allen Tam, HEM ORRHOIDS Obstetrics/Gynecolog y [address] [address] [place] [address] [phone] (Wo rk) Social History Tobacco Use Types Packs/Day Years Used Date Smoking Tobacco: Never Assessed Sex Assigned at Date Recorded Not on file documented as of this encounter Nursing Notes Jesika Johnson - 04/10/2012 2:48 PM CST pt notified. O PHOTOGRAPHER Gurjit Joe - 04/10/2012 2:24 PM CST I sent Rx Proctofoam to her pharm. Advise Pt. O PHOTOGRAPHER Jesika Johnson - 04/09/2012 3:20 PM CST pt calls requesting some pain medicine for her hemorrhoids. she reports that she was given some foam that seemed to help and would like to have that again. Jose Luis: please order or advise Lacey Nolasco [phone] (home) [facility] pharmacy in [place] documented in this encounter Plan of Treatment Not on filedocumented as of this encounter Visit Diagnoses Not on filedocumented in this encounter Care Teams Rotary Drill Operator Helper Relationship Specialty Start Date End Date Allen Amaya MD PCP - General 02/12/12 02/01/13 [address] [place] [address] documented as of this encounter
--- OUTSIDE RECORDS SUMMARY | 2022-03-23 17:32 | XMS_ITS | Encounter Summary ---
:1980 Author Organization [facility] Address [address] [place] [address] Care Team Providers Name Role Phone Allen Amaya MD Primary Care Provider [phone] Reason for Visit Reason Comments Medication Request Encounter Details Date Type Department Care Team Description 06/19/2012 Telephone Sonja Cagle, Medica tion Request Obstetrics/Gynecolog y MEDICAL RECORDS DIRECTOR, RADIOTELEPHONE OPERATOR [address] [place] [address] [place], [place] [phone] (Wo rk) Social History Tobacco Use Types Packs/Day Years Used Date Smoking Tobacco: Never Assessed Sex Assigned at Date Recorded Not on file documented as of this encounter Nursing Notes Bhavana Pierson - 06/19/2012 3:27 PM CST Called pt and lm on vm that rx sent. ALT PLANT OPERATOR Allen Amaya - 06/19/2012 3:18 PM CST Script for diflucan faxed as requested. Please notify patient. ALT PLANT OPERATOR Bhavana Pierson - 06/19/2012 2:59 PM CST Pt saw SUPERVISOR SINTERING PLANT a couple of weeks ago for pp f/u visit, and rec'd rx for Diflucan. She took one, but lost the other. Pt is still having symptoms, so would like rx for a replacement pill. Pharmacy verified. Will send to MD as SUPERVISOR SINTERING PLANT out of office. documented in this encounter Plan of Treatment Not on filedocumented as of this encounter Visit Diagnoses Not on filedocumented in this encounter Care Teams Division Plant Engineer Relationship Specialty Start Date End Date Allen Amaya MD PCP - General 02/12/12 02/01/13 [address] [place] [address] documented as of this encounter
--- OUTSIDE RECORDS SUMMARY | 2022-03-23 17:32 | XMS_ITS | Encounter Summary ---
:1980 [address] [facility] Address [address] [address] Care Team Providers Name Role Phone Brigid Robb MD Primary Care Provider Reason for Visit Reason Comments URI Encounter Details Date Type Department Care Team Description 06/30/2013 Telephone [facility] Em Pike MD URI Medicine [address] [place] [address] [place] [address] [phone] Social History Tobacco Use Types Packs/Day Years Used Date Smoking Tobacco: Never Assessed Sex Assigned at Date Recorded Not on file documented as of this encounter Nursing Notes Yolanda Awan - 06/30/2013 12:36 PM CDT Called and spoke with pt, advised her of Dr Diaz message below Debra Pike MD - 06/30/2013 11:59 AM CDT Have her take azithromycin next. I sent rx to pharmacy. If does not improve after that needs to return to clinic for reevaluation Brenda Smith RN - 06/30/2013 11:14 AM CDT Action requested: Return Call Request Additional Info: Pt is calling this Fri am as she is taking last Augmentin tonight but feels no difference in her sx. Still coughing non productively a lot. No fever or chills but feels ' tired and exhausted'. Would like either extension of antx or a different one--what ever Dr Pike suggests, anything to make her feel better. If questions call her at # [phone] (H), she will check at pharmacy for rx. 06-24-[address] Pike: ...'chest x-ray is clear. She will complete the Augmentin. Robitussin with codeine for current symptoms. See ENT for hoarseness and globus sensation. May want to consider trial of PPI for one month. ..' Also given Guaifenesin AC On 06-29-13 Dr Pike wrote: ..'radiologist thought there could be a tiny pneumonia on the chest xray, therefore be sure to complete the antibiotic that you were on..' .. Jane Angeles - 06/30/2013 10:19 AM CDT Pt was seen 06/24 for uri sx. Pt is not feeling any better. Would like to know if she can get additional rx. Please call. documented in this encounter Plan of Treatment Not on filedocumented as of this encounter Visit Diagnoses Not on filedocumented in this encounter Care Teams Waiter/Waitress Formal Relationship Specialty Start Date End Date Brigid Robb MD PCP - General 02/02/13 02/07/14 [address] [place] [address] documented as of this encounter
--- OUTSIDE RECORDS SUMMARY | 2022-03-23 17:32 | XMS_ITS | Encounter Summary ---
:1980 Author Organization [facility] Address [address] [place] [address] Care Team Providers Name Role Phone Brigid Robb MD Primary Care Provider Reason for Visit Reason Comments Skin Check Encounter Details Date Type Department Care Team Description 07/08/2013 Office Visit [facility] [place] [address] [facility] EFREM Gomez malignant neoplasm of [place], [place] [id number] [address] [facility] the skin (Primary Dx) [phone] [address] [place] [address] Social History Tobacco Use Types Packs/Day Years Used Date Smoking Tobacco: Never Assessed Sex Assigned at Date Recorded Not on file documented as of this encounter Progress Notes Amanda Buck - 07/08/2013 2:28 PM CDT Progress Notes signed by Amanda Buck PA-C at 07/11/132126 Author: Amanda Buck PA-C Service: (none) Author Type: Physician Cannon Pinion Adjuster Filed: 07/11/132126 Note Time: 07/08/131531 Status: Signed Rehabilitation Director: Amanda Buck PA-C (Physician Cannon Pinion Adjuster) NAME: SHAMIR NOLASCO MR#: [id number] CSN: [id number] AUTHENTICATING CLINICIAN: Amanda Buck PA-C CONFIRM #: [id number] LOC: 527 CLINIC PROGRESS NOTE DATE OF VISIT: 07/09/2013 : 1980 Shamir is a 33-year-old female who presents for evaluation of a mole along the upper back. She reports that she was in the urgent care recently and they had mentioned to have this checked. Shamir hasnot noticed any changes in color or size with any moles. Denies any pain, bleeding or itching. She has noticed a scaly lesion along her right nondenominational as well that she would like me to look at. I last saw Shamir on October 05, 2012. PAST SKIN HISTORY: Negative for skin cancer. Significant for postinflammatory hyperpigmentation along the upper lip from waxing. FAMILY HISTORY: Negative for skin cancer. CURRENT MEDICATIONS: Reviewed and updated in Epic. ALLERGIES: Reviewed and updated in Epic. EXAMINATION: GENERAL: Patient is pleasant, alert, and oriented. Jackson skin type 3. SKIN: The entire scalp, face, neck, anterior and posterior torso, upper and lower extremities excluding the feet, as this was deferred by patient, were examined today. Along the right nondenominational, she has alight nazario, keratotic, stuck-on papule consistent with seborrheic keratoses. A few similar lesions along the upper back, also consistent with seborrheic keratoses. Along the medial upper back, she has a5 mm dark brown macule, somewhat reticulated on dermoscopy, but showing consistent pigment network. Just inferior to this, is a light nazario, keratotic, stuck-on papule consistent with a seborrheic keratosis. Along the right lateral inferior buttock, she has a 6 mm dark brown macule consistent with a benign-appearing nevus. Along the left anterior lower leg, along the distal aspect, is a 2 mm dark brown macule with a adding machine servicer brown superior half of the lesion. Remainder of skin exam is unremarkable. ASSESSMENT AND PLAN: 1. Screening for malignant neoplasms of the skin. Encouraged SPF 30 use, sun protective clothing, including broad-brimmed hats, and sun avoidance when possible. 2. Benign-appearing seborrheic keratoses along the right nondenominational and back. Reassured. 3. Benign-appearing nevi along the back, buttock and left anterior lower leg. Recommended close observation of the lesion along the left anterior distal lower leg, and recommended follow up in 6 monthsto recheck this lesion. SMC:RAMIN C: CONFIRM #: [id number] documented in this encounter Plan of Treatment Not on filedocumented as of this encounter Visit Diagnoses Diagnosis Screening for malignant neoplasm of the skin - Primary documented in this encounter Care Teams Fleet Director Relationship Specialty Start Date End Date Brigid Robb MD PCP - General 02/02/13 02/07/14 [address] [place] [address] documented as of this encounter
--- OUTSIDE RECORDS SUMMARY | 2022-03-23 17:33 | XMS_ITS | Encounter Summary ---
:1980 Author [facility] Address [address] [place] [address] Care Team Providers Name Role Phone Mikala Best APRN, BONITA Primary Care Provider [phone] Reason for Visit Reason Comments Pharmacy Appt. Needed Encounter Details Date Type Department Care Team Description 11/11/2011 Telephone [facility] Mikala Best APRN, Pharmacy; Appt. Needed Medicine [facility] [address] [facility] [address] [place] [address] [place] [address] [phone] (Wo rk) Social History Tobacco Use Types Packs/Day Years Used Date Smoking Tobacco: Never Assessed Sex Assigned at Date Recorded Not on file documented as of this encounter Nursing Notes Francia Herron - 11/11/2011 4:25 PM CDT Addended by: FRANCIA HERRON on: 11/11/2011 Modules accepted: Orders Francia Herron - 11/11/2011 4:25 PM CDT Patient returning call and discussing headaches. Patient states she was hospitalized for 2 days at [facility] (on ) for headaches. States that she has been taking Imitrex 2 pills at night as a preventitive. Che Santiago LPN - 11/11/2011 1:22 PM CDT Spoke with patient regarding Neuro referral. Patient states she is already in the process of scheduling this. Allen Amaya - 11/11/2011 11:37 AM CDT Chart reviewed. Has tried Fioricet, Vicodin and now Imitrex for management of migraines in . Had previously discussed Neuro referral with patient if we were unable to control symptoms. Recommend proceeding with Neuro consultation at this time. Francia Herron - 11/11/2011 9:29 AM CDT Returned call to patient to discuss Imitrex use. Message left. Lacey Jamison RN - 11/11/2011 9:00 AM CDT Pharmacy called - pt filled Imitrex #18 tabs on 11/03 and has used them all. Insurance will not approve refill yet as it is too soon. Pharmacy will either need a new order from provider to get an earlyrefill approved, or a change in therapy if that is appropriate. Prescribed by Nikole Dalton, will forward to EDUCATION ADVISER to address. Jaimie Jeronimo - 11/11/2011 8:53 AM CDT PSC Medication Issue/Refill Primary Care Provider: MEME Santos Patient to contact pharmacy: no Comment: Siobhan calling for clarification Pharmacy [facility] Phone [facility] [phone] or City: [place] Drug Name: Imitrex Strength: unk Dose/Route/Freq: unk *ECODE documented in this encounter Plan of Treatment Not on filedocumented as of this encounter Visit Diagnoses Diagnosis Generalized headaches - Primary Headache documented in this encounter Care Teams Government Minister Relationship Specialty Start Date End Date Mikala Best APRN, FOOD PRODUCTS TESTER PCP - General 07/16/10 02/11/12 [address] [place] [address] documented as of this encounter
--- OUTSIDE RECORDS SUMMARY | 2022-03-23 17:33 | XMS_ITS | Encounter Summary ---
:1980 Author Organization [facility] Address [address] [address] Care Team Providers Name Role Phone Mikala Best APRN, CNP Primary Care Provider [phone] Encounter Details Date Type Department Care Team Description 10/22/2011 Notes/Orders Specialty [facility] [address] Michelle Huizar Other specified Maternal Medic ine screening [address] [facility] (Primary Dx) [place] [address] Social History Tobacco Use Types Packs/Day Years Used Date Smoking Tobacco: Never Assessed Sex Assigned at Date Recorded Not on file documented as of this encounter Plan of Treatment Not on filedocumented as of this encounter Visit Diagnoses Diagnosis Other specified screening(V28. 89) - Primary Other specified screening documented in this encounter Care Teams Paving Foreman Relationship Specialty Start Date End Date Mikala Best APRN, CNP PCP - General 07/16/10 02/11/12 [address] [place] [address] documented as of this encounter
--- OUTSIDE RECORDS SUMMARY | 2022-03-23 17:33 | XMS_ITS | Encounter Summary ---
:1980 Author Organization [facility] Address [address], [place] [address] Care Team Providers Name Role Phone Allen Amaya MD Primary Care Provider [phone] Reason for Visit Reason Comments Nausea Concerns VISION, BLURRED Encounter Details Date Type Department Care Team Description 04/03/2012 Nurse Triage [facility] Allen Amaya Nausea; P [facility] MD Kiran Concerns; VISION, [address] [place] [place] [address] [place] [address] [phone] (Wo rk) Social History Tobacco Use Types Packs/Day Years Used Date Smoking Tobacco: Never Assessed Sex Assigned at Date Recorded Not on file documented as of this encounter Nursing Notes Jesika Johnson - 04/03/2012 9:45 AM CST Protocol: - VISION LOSS OR [id number] Affirmative: [1] Blurred vision or visual changes AND [2] present now AND [3] sudden onset or new (e.g., minutes, hours, days) Disposition of Go To ED Now (Or PCP Triage) suggested. Pt calls this morning reporting that she started vomiting over night and is now experiencing flank pain and some blurred vision. She reports mild headache she believes to be from throwing up. RN advised pt to go to to be evaluated, have BP check. The patient indicates understanding of these issues and agrees with the plan. documented in this encounter Plan of Treatment Not on filedocumented as of this encounter Visit Diagnoses Not on filedocumented in this encounter Care Teams Buffing Turner And Counter Relationship Specialty Start Date End Date Allen Amaya MD PCP - General 02/12/12 02/01/13 [address] [place] [address] documented as of this encounter
--- OUTSIDE RECORDS SUMMARY | 2022-03-23 17:33 | XMS_ITS | Encounter Summary ---
:1980 Author Organization [facility] Address [address] [place] [address] Care Team Providers Name Role Phone Allen Amaya MD Primary Care Provider [phone] Reason for Visit Reason Comments ULTRASOUND Encounter Details Date Type Department Care Team Description 03/02/2012 Procedure Visit Specialty Center Mikala Iverson MD ULTRASOUND [address] Maternal [address] [facility] [address] [facility] [place], [place]. [address] [place], [place] [phone] [address] (Work) [phone] Social History Tobacco Use Types Packs/Day Years Used Date Smoking Tobacco: Never Assessed Sex Assigned at Date Recorded Not on file documented as of this encounter Progress Notes Mikala Iverson MD - 03/02/2012 1:33 PM CST CLINIC VISIT Lacey Nolasco is a 31 y.o. now at 31w0d weeks gestation. f/u US and echo done today due to thickened nuchal translucency earlier in which maybe associated with cardiac malformation. [facility] normal karyotype. 1hr glucose screen borderline. Borderline macrosomia noted today. mildly thickened left ventricular wall noted in several views on echo but within upper limits of normal. Recommend: repeat 1hr glucose (ordered) f/u US in 4 weeks for EFW, repeat limited echo to document normal cardiac function documented in this encounter Plan of Treatment Not on filedocumented as of this encounter Visit Diagnoses Diagnosis macrosomia - Primary Excessive growth affecting managem ent of mother, antepartum documented in this encounter Care Teams Videotape Editor Relationship Specialty Start Date End Date Allen Amaya MD PCP - General 02/12/12 02/01/13 [address] [place] [address] documented as of this encounter
--- OUTSIDE RECORDS SUMMARY | 2022-03-23 17:33 | XMS_ITS | Encounter Summary ---
:1980 Author Organization [facility] Address [address] [place] [address] Care Team Providers Name Role Phone Stephen Mahajan MD Primary Care Provider [phone] Reason for Visit Reason Comments Appt. Work In Request Encounter Details Date Type Department Care Team Description 02/12/2012 Telephone [place] Lala Munoz, Appt. Work In Request Obstetrics/Gynecolog y GIFT SHOP ASSISTANT [address] [place] [address] Social History Tobacco Use Types Packs/Day Years Used Date Smoking Tobacco: Never Assessed Sex Assigned at Date Recorded Not on file documented as of this encounter Nursing Notes Lala Munoz LPN - 02/12/2012 1:40 PM CDT Spoke with patient. She was booked an appointment with Dr Nicole in Urology, here in [place] tomorrow February 12 at 08:30. Lala Munoz LPN - 02/12/2012 1:36 PM CDT Message copied by LALA MUNOZ on FriFeb 12, 2012 1:36 PM ------ Message from: STEPHEN MAHAJAN Created: FriFeb 12, 2012 1:13 PM Spoke with patient and informed of finding of moderate right hydronephrosis at 28 weeks gestation. Pain remains severe at times. Placed a referral to Urology in [facility]. Patient aware. documented in this encounter Plan of Treatment Not on filedocumented as of this encounter Visit Diagnoses Not on filedocumented in this encounter Care Teams Commercial Appraiser Relationship Specialty Start Date End Date Stephen Mahajan MD PCP - General 02/12/12 02/01/13 [address] [place] [address] documented as of this encounter
--- OUTSIDE RECORDS SUMMARY | 2022-03-23 17:33 | XMS_ITS | Encounter Summary ---
:1980 Author Organization [facility]ly [facility] Address [address] [place] [address] Care Team Providers Name Role Phone Allen Amaya MD Primary Care Provider [phone] Encounter Details Date Type Department Care Team Description 12/09/2011 Notes/Orders Specialty [facility] Allen Amaya abn 3931 Maternal MD Kiran [facility] Ultrasound [address] [place] [address] [place] [address] Social History Tobacco Use Types Packs/Day Years Used Date Smoking Tobacco: Never Assessed Sex Assigned at Date Recorded Not on file documented as of this encounter Plan of Treatment Not on filedocumented as of this encounter Procedures Procedure Name Priority Date/Time Associated Diagnosis Comme [facility] US ECHO Routine 03/02/2012 1:31 PM Other known or Re sults for this F/U, OB US F/U MOLDED FRAMES ASSEMBLER suspected procedure are in abnormality, not the results elsewhere classified, sectio n. affecting management of mother, antepartum condition or complication documented in this encounter Results Bertha US Echo F/U, OB US F/U (03/02/2012 1:31 PM MOLDED FRAMES ASSEMBLER) Anatomical Region Laterality Modality Pelvis Other Specimen (Source) Anatomical Location Collection Method / Collectio n Time Received Time / Laterality Volume Impressions 03/02/2012 1:37 PM MOLDED FRAMES ASSEMBLER IMPRESSION: ?? Intrauterine , ??31.0 weeks gestation ?? Normal echocardiogram except f or borderline thickened LV wall ?? Borderline macrosomia ?? Normal amniotic fluid volume RECOMMENDATIONS: Repeat echocardiogram and EFW in o ne month. See note in Epic. Mikala Iverson MD <Electronic Signature> ??03/02/2012 01:3 6pm Narrative 03/02/2012 1:37 PM MOLDED FRAMES ASSEMBLER ? [facility] ?[facility] ? [address] ?[address] ? [place], [place] ??[address] ? Phone: ? Pat. Name: SHAMIR NOLASCO ? Study Date: ?? 03/02/2012 ?? 12:11pm Pat. No: ?? [id number] ?Referring MD: Nikole Dalton CULTURED [employer]ODU[employer] MAKER ?? [id number] LMP: ? 07/29/2011 ?Plan Coordinator: ??Lisy Villa RDMS GA by LMP: 31w0d ? , Age: ? 1980, 31 GA by 1st: 31w0d ? Pregnancies: ?? 2, Para 1001 GA by US: ??31w6d ? GA Selected: ??31w0d (LMP) Hist/Ind: ??Thick Nuchal Translucency (5 .7 mm) ? Normal ??CVS - 46 XY ? Follow-up Echocard iogram and Growth ? MARIANO: ?05/04/2012 MEASUREMENTS & AGE ? GROWTH EVALUATION Measurement ??GA ? Range ? So urce ?? % ?? 31w0d ??Ratios ----- ------- ?? BPD ??8.3 cm 33w4d (00b0k-70d3f) Hadlock ??BPD ??87% ?? FL/BPD 0.69 (0.71 - 0.87)* HC ??30.4 cm 33w6d (08r2m-10c7c) Hadlock ??HC ?? 92% ?? FL/AC ??0.20 (0.20 - 0.24)* AC ??29.1 cm 33w1d (05u6x-57z1a) Hadlock ??AC ?? 81% ?? HC/AC ??1.05 (0.96 - 1.15) FL ?? 5.7 cm 30w1d (88r9f-33a0x) Hadlock ??FL ?? 36% ?? CI ? 0.78 (0.70 - 0.86) HL ?? 5.2 cm 30w3d (37b9w-19b7c) Rochelle ?? HL ?? 42% GA for sonogram 31w6d (68i3c-37c8j) ? Weight Estimate: based on (BPD,HC,AC,FL) Hadlock ?Weight: 1947 gm (8495-9449) Hadlock ? : 4lbs, 4oz ? Normal: 1630 gm (9085-5308) Diogenes ? Wt% ? 69% for 31.0 wks Heart Rate: 147 bpm Amniotic Fluid Index: 19.3cm (08.8-23.8) DOPPLER Umbilical - Mid Cord ? S/D ??2.30 (2.22 - 4.00) ? RI ?? 0.56 (0.55 - 0.75) ? CLINICAL SUMMARY A Follow-up Ultrasound for Growth and Fo llow-up Echocardiogram was done. TYPE OF GESTATION: ??Mckeon PRESENTATION OF FETUS: Vertex PLACENTAL LOCATION: ??Anterior AMNIOTIC FLUID VOLUME: Is within the nor mal limits MOTION: ??Was visualized and appea rs normal STOMACH: The stomach was visualize d and appears normal GROWTH: ??Normal growth COLOR FLOW VELOCITY MAPPING: ?? Interpretation of doppler color flow velocity mapping of the umbilical ?? artery demonstrates: ?? No increased resistance to blood theron w, suggesting unlikely presence of ?? placental insufficiency. ECHOCARDIOGRAM HEART: ?? The heart lies on the left side of t he thorax at normal cardiac axis. ?? The cardiac rhythm is regular and th e rate is normal. ?? A normal four chamber view is seen w ith normal valve motion, chamber sizes, ?? and contractility. The left ventricular wall appears thickened in several views ?? and measures 0.39-0.52cm (within upper l imits of normal range). ?? The Foramen ?? ovale is patent with normal excursion of the ovale flap into the left atrium. ?? The AV valves appear normally placed . ? The atrial and ventricular septa tati ear intact, however not all septal ?? defects may be seen by ??echocardi ography. ?? The right and left outflow tracts ar e seen and appear normal. ?? The three vessel view showing the pu lmonary artery, aorta and superior vena ?? cava is seen and appears normal. ?? The short axis views of the ventricl es up through the outflow tracts were ?? seen and appears normal. ?? The inferior and superior vena cavae drain into the right atrium in the ?? normal fashion. ? The aortic arch appears normal. ? There is no evidence of pericardial effusion. ?? Color flow doppler was utilized to d ocument normal blood flow across the AV ?? valves and outflow tracts. ?? At least one pulmonary vein drains i nto the left atrium. Procedure Note Mikala Iverson MD - 12/11/[address] [address] Fax: Pat. Name: SHAMIR NOLASCO Study Date: 03/02/2012 12:11pm Pat. No: [id number] Referring MD: Nikole Dalton C[employer]ED [employer] MAKER [id number] LMP: 07/29/2011 Plan Coordinator: Lisy Villa RDMS GA by LMP: 31w0d , Age: 10 1980, [age] GA by 1st: 31w0d Pregnancies: 2, Para 1001 GA by US: 31w6d GA Selected: 31w0d (LMP) Hist/Ind: Thick Nuchal Translucency (5.7 mm) Normal CVS - 46 XY Follow-up Echocardiogram and Grow th MARIANO: 05/04/2012 MEASUREMENTS & AGE GROWTH EV ALUATION Measurement GA Range Source % 31w0d Rati os ----- ------- BPD 8.3 cm 33w4d (51b4w-44u8j) Hadlock B PD 87% FL/BPD 0.69 (0.71 - 0.87)* HC 30.4 cm 33w6d (48u4i-61s1z) Hadlock H C 92% FL/AC 0.20 (0.20 - 0.24)* AC 29.1 cm 33w1d (32o4v-56q5x) Hadlock A C 81% HC/AC 1.05 (0.96 - 1.15) FL 5.7 cm 30w1d (53u1c-82k1k) Hadlock FL 36% CI 0.78 (0.70 - 0.86) HL 5.2 cm 30w3d (49u1m-83u9i) Rochelle HL 42% GA for sonogram 31w6d (66i3e-94p3u) Feta l Weight Estimate: based on (BPD,HC,AC,FL) Hadlock Weight: 1947 gm (1039-2151) Hadlock : 4lbs, 4oz Normal: 1630 gm (1392-8929) Diogenes Wt% 69% for 31.0 wks Heart Rate: 147 bpm Amniotic Fluid Index: 19.3cm (08.8-23.8) DOPPLER Umbilical - Mid Cord S/D 2.30 (2.22 - 4.00) RI 0.56 (0.55 - 0.75) CLINICAL SUMMARY A Follow-up Ultrasound for Growth and Fo llow-up Echocardiogram was done. TYPE OF GESTATION: Mckeon PRESENTATION OF FETUS: Vertex PLACENTAL LOCATION: Anterior AMNIOTIC FLUID VOLUME: Is within the nor mal limits MOTION: Was visualized and appears normal STOMACH: The stomach was visualize d and appears normal GROWTH: Normal growth COLOR FLOW VELOCITY MAPPING: Interpretation of doppler color flow ve locity mapping of the umbilical artery demonstrates: No increased resistance to blood flow, suggesting unlikely presence of placental insufficiency. ECHOCARDIOGRAM HEART: The heart lies on the left side of the thorax at normal cardiac axis. The cardiac rhythm is regular and the r ate is normal. A normal four chamber view is seen with normal valve motion, chamber sizes, and contractility. The left ventricular wall appears thickened in several views and measures 0.39-0.52cm (within upper l imits of normal range). The Foramen ovale is patent with normal excursion of the ovale flap into the left atrium. The AV valves appear normally placed. The atrial and ventricular septa appear intact, however not all septal defects may be seen by echocardiog baldo. The right and left outflow tracts are s een and appear normal. The three vessel view showing the pulmo nary artery, aorta and superior vena cava is seen and appears normal. The short axis views of the ventricles up through the outflow tracts were seen and appears normal. The inferior and superior vena cavae dr ain into the right atrium in the normal fashion. The aortic arch appears normal. There is no evidence of pericardial eff usion. Color flow doppler was utilized to docu ment normal blood flow across the AV valves and outflow tracts. At least one pulmonary vein drains into the left atrium. IMPRESSION IMPRESSION: Intrauterine , 31.0 weeks gest ation Normal echocardiogram except for borderline thickened LV wall Borderline macrosomia Normal amniotic fluid volume RECOMMENDATIONS: Repeat echocardiogram and EFW in o ne month. See note in Epic. Mikala Iverson MD <Electronic Signature> 03/02/2012 01:36p m Allen Amaya MD [facility] documented in this encounter Visit Diagnoses Diagnosis Other known or suspected abnormali ty, not elsewhere classified, affecting management of mother, antepartum conditi on or complication documented in this encounter Care Teams Boat Cleaner Relationship Specialty Start Date End Date Allen Amaya MD PCP - General 02/12/12 02/01/13 [address] [place] [address] documented as of this encounter
--- OUTSIDE RECORDS SUMMARY | 2022-03-23 17:33 | XMS_ITS | Encounter Summary ---
:1980 Author Organization [facility] Address [address] [place] [address] Care Team Providers Name Role Phone Mikala Best APRN, CNP Primary Care Provider [phone] Reason for Visit Reason Comments Routine Visit Encounter Details Date Type Department Care Team Description 11/18/2011 Routine Ghanshyam Dalton, Randall Pre Obstetrics/Gynecolog Sonja Patton APRN, Suzi sit y BED CONTROL SPECIALIST [address] [place] [id number] [place], [place] [phone] Social History Tobacco Use Types Packs/Day Years Used Date Smoking Tobacco: Never Assessed Sex Assigned at Date Recorded Not on file documented as of this encounter Last Filed Vital Signs Vital Sign Reading Time Taken Comments Blood Pressure 116/70 11/18/2011 3:19 PM CDT Pulse - - Temperature - - Respiratory Rate - - Oxygen Saturation - - Inhaled Oxygen Concentration - - Weight 84.4 kg (186 lb) 11/18/2011 3:19 PM CDT Height - - Body Mass Index 30.95 09/23/2011 7:48 AM CDT documented in this encounter Progress Notes Sonja Dalton APRN, BONITA - 11/18/2011 5:22 PM CDT Pt denies any problems at this time. Pt declined MSAFP. Pt is not aware of movement. Pt had L2 U/S today all was normal except for thicken Nuchal cord. Pt has follow up L2 in 3 weeks time. RTC 3 weeks documented in this encounter Plan of Treatment Not on filedocumented as of this encounter Visit Diagnoses Diagnosis Supervision of normal subsequent pregnan cy - Primary Supervision of other normal documented in this encounter Care Teams Fishing Rod Mechanic Relationship Specialty Start Date End Date Mikala Best, INSIDE SALES ENGINEER, BED CONTROL SPECIALIST PCP - General 07/16/10 02/11/12 [id number] [address] [place] [address] documented as of this encounter
--- OUTSIDE RECORDS SUMMARY | 2022-03-23 17:33 | XMS_ITS | Encounter Summary ---
:1980 Author Organization [facility] Address [address] [place] [address] Care Team Providers Name Role Phone Allen Amaya MD Primary Care Provider [phone] Encounter Details Date Type Department Care Team Description 11/01/2011 Notes/Orders [facility] [address] Sonja Dalton, Maternal Medicine JOB PUTTER UP AND TICKET PREPARER, CN P Ultrasound [address] [place] [phone] (Wo rk) Social History Tobacco Use Types Packs/Day Years Used Date Smoking Tobacco: Never Assessed Sex Assigned at Date Recorded Not on file documented as of this encounter Plan of Treatment Not on filedocumented as of this encounter Procedures Procedure Name Priority Date/Time Associated Diagnosis Comme nts [facility] US LEVEL 2, Routine 12/09/2011 3:01 PM Result s for this ECHO, UAR CDT procedure ar e in the results section. [facility] US OB COMPLETE Routine 11/18/2011 8:57 AM Res ults for this CDT procedure are i n the results section. documented in this encounter Results Bertha US Level 2, Echo, UAR (12/09/2011 3:01 PM CDT) Anatomical Region Laterality Modality Pelvis Other Specimen (Source) Anatomical Location Collection Method / Collectio n Time Received Time / Laterality Volume Impressions 12/09/2011 3:14 PM CDT 1. ??Mckeon gestation at ??19w 0d 2. ??Average ultrasound age ??19w 1d 3. ??Normal anatomy with thickened fold 4. ??Normal LEELA and UAR RECOMMENDATION: ??The exam today shows n ormal growth and anatomy. ??The ?? nuchal fold continues to be thickened. ? ?In the presence of an otherwise normal ?? Level 2, there is a 98% chance of a norm al outcome. ??I recommend an ultrasound ?? for growth with a repeat echo at 3 2 weeks. ??This exam has been scheduled ?? in the Clinic. ?? Jessica Muniz MD <Electronic Signature> ??12/09/2011 03:1 4pm Narrative 12/09/2011 3:14 PM CDT ? [facility] ?M [facility] ? [address] ?[address] ? [place], [place] ??[address] ? Phone: ? Pat. Name: SHAMIR NOLASCO ? Study Date: ?? 12/09/2011 ?? 1:42pm Pat. No: ?? [id number] ?Referring MD: Nikole Dalton HEALTH PROMOTION COORDINATOR ?? 1346 LMP: ? 07/29/2011 ?Neuroradiologist: ??Tiesha Du, RDMS GA by LMP: 19w0d ? , Age: ? 1980, 31 GA by 1st: 19w0d ? Pregnancies: ?? 2, Para 1001 GA by US: ??19w1d ? GA Selected: ??19w0d (LMP) Hist/Ind: ??Thick Nuchal Translucency (5 .7 mm) ? Normal ??CVS - 46 XY ? Level II ? MARIANO: ?05/04/2012 MEASUREMENTS & AGE ? GROWTH EVALUATION Measurement ??GA ? Range ? So urce ?? % ?? 19w0d ??Ratios ----- ------- ?? BPD ??4.5 cm 19w4d (93a5e-49o5k) Hadlock ??BPD ??67% ?? FL/BPD 0.62 HC ??17.0 cm 19w4d (04o1f-69y4f) Hadlock ??HC ?? 69% ?? FL/AC ??0.20 AC ??14.1 cm 19w3d (19g6j-40o3r) Hadlock ??AC ?? 61% ?? HC/AC ??1.20 (1.06 - 1.25) FL ?? 2.8 cm 18w4d (04i7a-12o3k) Hadlock ??FL ?? 39% ?? CI ? 0.73 (0.70 - 0.86) HL ?? 2.8 cm 19w1d (85f2f-59z8r) Rochelle ?? HL ?? 53% CER ??2.0 cm 19w5d (22v7g-81e8f) Goldste i CER ??67% FOOT 3.3 cm ? (20r5d-45i0w) Me rcer ?? FOOT 79% LVEN 0.6 cm ?LVEN ? GA for sonogram 19w1d (32k4t-96w4r) ? Weight Estimate: based on (BPD,HC,AC,FL) Hadlock ?Weight: 276 gm (236-316) Hadlock ? : 0lbs, 9oz Cervical Length: ??4.0 cm Heart Rate: 136 bpm DOPPLER Umbilical - Mid Cord ? S/D ??4.31 (3.03 - 7.69) ? RI ?? 0.77 (0.67 - 0.87) ? CLINICAL SUMMARY A Detailed (Level 2) Ultrasound and Feta l Echocardiogram was done. Type of Gestation: Mckeon Presentation of fetus:Breech Growth: ??Normal Growth MOTION: Appears normal PLACENTAL LOCATION: ? Anterior ??The placenta appears to b e of normal ??texture. AMNIOTIC FLUID VOLUME IS: ? Normal. HEAD: ?? The head shape is normal. ??Th e calvaria is intact. ?? The cerebellar size and shape appear s normal. ?? The posterior fossa appears normal. ?? THE NUCHAL SKIN FOLD IS 0.60 CM. ?? The lateral ventricular atrium measu res 0.63 cm. ?? There is no deviation of midline ech oes, cyst formation or evidence of ?? hydrocephalus. SPINE: ?? The spine is normal in both AP and t ransverse views. There is no evidence ?? of splaying of the spine or dorsal disru ption ?of ??the skin or spinal ?? processes. The spine is normally ossifie d and has normal curvature. FACE: ?? Position and size of the eyes, nose, and chin appear normal. ?? The profile appears normal. ?? The upper lip appears intact. Cleft palate cannot be ruled out by ?? ultrasound. ?? The nasal bone measurement is within normal limits. THORAX: ?? The lung rosario appear normal . ?? There is no pleural effusion seen. ECHOCARDIOGRAM HEART: ?? The heart lies on the left side of t he thorax at normal cardiac axis. ?? The cardiac rhythm is regular and th e rate is normal. ?? A normal four chamber view is seen w ith normal valve motion, chamber sizes, ?? and contractility. ?? The Foramen ovale is patent with nor mal excursion of the ovale flap into ?? the left atrium. ?? The AV valves [...] in the ?? normal fashion. ? The ductal arch appears normal. ?? The aortic arch appears normal. ? There is no evidence of pericardial effusion. ?? Color flow doppler was utilized to d ocument normal blood flow across the AV ?? valves and outflow tracts. ?? At least one pulmonary vein drains i nto the left atrium. ABDOMEN: ?? The diaphragm is intact. ??The stoma ch lies below the left diaphragm. ? The bowel echoes are normal for this gestational age. ?? There is no evidence of ascites. UMBILICAL CORD: ?? The umbilical cord inserts into an i ntact abdominal wall. ?? The umbilical cord contains three ve ssels. ?? The umbilical cord inserts centrally into the placenta. KIDNEYS: ?? The kidneys are of normal echogenici ty, shape and size. ?? The bladder is filled and is of norm al size and shape. ?? There is no evidence of pyelectasis. GENDER: ?? The fetus appears to be male. ?? The patient is aware of this ?? information EXTREMITIES: ??All four extremities were visualized ?Normal movement is seen. ??The feet and hands appear normal with normal positioning ?? UTERUS AND ADNEXAE: ?? The uterus and adnexae were visualiz ed and appear grossly normal. CERVIX: ?? The cervix measures ??3.96 cm in [facility] by transabdominal scan. ?? COLOR FLOW VELOCITY MAPPING: ?? Interpretation of Doppler color flow velocity mapping of the umbilical ?? artery demonstrates: ?? No increased resistance to flow sugg esting unlikely presence of placental ?? insufficiency. Procedure Note Jessica Muniz MD - [address] [address] Fax: Pat. Name: SHAMIR NOLASCO Study Date: 12/09/2011 1:42pm Pat. No: [id number] Referring MD: Nikole Dalton HEALTH PROMOTION COORDINATOR 1346 LMP: 07/29/2011 Neuroradiologist: Tiesha Sandy RDMS GA by LMP: 19w0d , Age: 10 1980, 1 3 GA by 1st: 19w0d Pregnancies: 2, Para 1001 GA by US: 19w1d GA Selected: 19w0d (LMP) Hist/Ind: Thick Nuchal Translucency (5.7 mm) Normal CVS - 46 XY Level II MARIANO: 05/04/2012 MEASUREMENTS & AGE GROWTH EV ALUATION Measurement GA Range Source % 19w0d Rati os ----- ------- BPD 4.5 cm 19w4d (38r8w-71x4b) Hadlock B PD 67% FL/BPD 0.62 HC 17.0 cm 19w4d (69a6h-34w4x) Hadlock H C 69% FL/AC 0.20 AC 14.1 cm 19w3d (50k7k-38z7e) Hadlock A C 61% HC/AC 1.20 (1.06 - 1.25) FL 2.8 cm 18w4d (90p5p-92i8h) Hadlock FL 39% CI 0.73 (0.70 - 0.86) HL 2.8 cm 19w1d (01i4u-05h6e) Rochelle HL 53% CER 2.0 cm 19w5d (85a1q-42r3g) Goldstei CER 67% FOOT 3.3 cm (16v7h-60k0f) Balderrama FOOT 79 % LVEN 0.6 cm LVEN GA for sonogram 19w1d (81y9d-76t1j) Feta l Weight Estimate: based on (BPD,HC,AC,FL) Hadlock Weight: 276 gm (236-316) Hadlock : 0lbs, 9oz Cervical Length: 4.0 cm Heart Rate: 136 bpm DOPPLER Umbilical - Mid Cord S/D 4.31 (3.03 - 7.69) RI 0.77 (0.67 - 0.87) CLINICAL SUMMARY A Detailed (Level 2) Ultrasound and Feta l Echocardiogram was done. Type of Gestation: Mckeon Presentation of fetus:Breech Growth: Normal Growth MOTION: Appears normal PLACENTAL LOCATION: Anterior The placenta appears to be of normal texture. AMNIOTIC FLUID VOLUME IS: Normal. HEAD: The head shape is normal. The ren varia is intact. The cerebellar size and shape appears n ormal. The posterior fossa appears normal. THE NUCHAL SKIN FOLD IS 0.60 CM. The lateral ventricular atrium measures 0.63 cm. There is no deviation of midline echoes , cyst formation or evidence of hydrocephalus. SPINE: The spine is normal in both AP and gottlieb sverse views. There is no evidence of splaying of the spine or dorsal disru ption of the skin or spinal processes. The spine is normally ossifie d and has normal curvature. FACE: Position and size of the eyes, nose, an d chin appear normal. The profile appears normal. The upper lip appears intact. Cleft pal ate cannot be ruled out by ultrasound. The nasal bone measurement is within no rmal limits. THORAX: The lung rosario appear normal. T here is no pleural effusion seen. ECHOCARDIOGRAM HEART: The heart lies on the left side of the thorax at normal cardiac axis. The cardiac rhythm is regular and the r ate is normal. A normal four chamber view is seen with normal valve motion, chamber sizes, and contractility. The Foramen ovale is patent with normal [...] The inferior and superior vena cavae dr johnsonn into the right atrium in the normal fashion. The ductal arch appears normal. The aortic arch appears normal. There is no evidence of pericardial eff usion. Color flow doppler was utilized to docu ment normal blood flow across the AV valves and outflow tracts. At least one pulmonary vein drains into the left atrium. ABDOMEN: The diaphragm is intact. The stomach li es below the left diaphragm. The bowel echoes are normal for this ge stational age. There is no evidence of ascites. UMBILICAL CORD: The umbilical cord inserts into an inta ct abdominal wall. The umbilical cord contains three vesse ls. The umbilical cord inserts centrally in to the placenta. KIDNEYS: The kidneys are of normal echogenicity, shape and size. The bladder is filled and is of normal size and shape. There is no evidence of pyelectasis. GENDER: The fetus appears to be male. Th e patient is aware of this information EXTREMITIES: All four extremities were visualized Normal movement is seen. The feet and hands appear normal with n ormal positioning UTERUS AND ADNEXAE: The uterus and adnexae were visualized and appear grossly normal. CERVIX: The cervix measures 3.96 cm in length b y transabdominal scan. COLOR FLOW VELOCITY MAPPING: Interpretation of Doppler color flow ve locity mapping of the umbilical artery demonstrates: No increased resistance to flow suggest ing unlikely presence of placental insufficiency. IMPRESSION 1. Mckeon gestation at 19w 0d 2. Average ultrasound age 19w 1d 3. Normal anatomy with thickened fold 4. Normal LEELA and UAR RECOMMENDATION: The exam today shows nor mal growth and anatomy. The nuchal fold continues to be thickened. I n the presence of an otherwise normal Level 2, there is a 98% chance of a norm al outcome. I recommend an ultrasound for growth with a repeat echo at 3 2 weeks. This exam has been scheduled in the Clinic. Jessica Muniz MD <Electronic Signature> 12/09/2011 03:14p m Sonja Dalton APRN, HAND COKE DRAWER RAD EBRTHA US Bertha US OB Complete (11/18/2011 8:57 AM CDT) Anatomical Region Laterality Modality Pelvis Other Specimen (Source) Anatomical Location Collection Method / Collectio n Time Received Time / Laterality Volume Impressions 11/18/2011 9:57 AM CDT 1. Mckeon gestation at 16w0d 2. Average ultrasound age 16w4d 3. Increased nuchal fold 4. No other anatomic abnormalities 5. Normal LEELA RECOMMENDATION: ??There is no evidence o f a cardiac defect on today's exam. ?? The patient will return in 3 weeks for a Level 2 ultrasound. ?? Jessica Muniz MD <Electronic Signature> ??11/18/2011 09:5 5am Narrative 11/18/2011 9:57 AM CDT ? [facility] ?M [facility] ? [address] ?[address] ? [place], [place] ??[address] ? Phone: ? Pat. Name: SHAMIR NOLASCO ? Study Date: ?? 11/18/2011 ?? 7:49am Pat. No: ?? [id number] ?Referring MD: Nikole Dalton HEALTH PROMOTION COORDINATOR ?? 1346 LMP: ? 07/29/2011 ?Neuroradiologist: ??Elizabeth Ryan, RDMS GA by LMP: 16w0d ? , Age: ? 1980, 31 GA by 1st: 16w0d ? Pregnancies: ?? 2, Para 1001 GA by US: ??16w4d ? GA Selected: ??16w0d (LMP) Hist/Ind: ??Abnormal First Trimester Scr eening ? Nuchal Translucency 5.7m m ? NL CVS - 46 XY ? Ob Complete ? MARIANO: ?05/04/2012 MEASUREMENTS & AGE ? GROWTH EVALUATION Measurement ??GA ? Range ? So urce ?? % ?? 16w0d ??Ratios ----- ------- ?? BPD ??3.2 cm 16w0d (84d5t-80a2z) Hadlock ??BPD ??51% ?? FL/BPD 0.63 HC ??12.6 cm 16w3d (61i5v-38v4c) Hadlock ??HC ?? 64% ?? FL/AC ??0.17 AC ??11.6 cm 17w3d (21u1i-78y8j) Hadlock ??AC ?? 87% ?? HC/AC ??1.08 (1.09 - 1.28)* FL ?? 2.0 cm 16w0d (83v9w-16i8m) Hadlock ??FL ?? 51% ?? CI ? 0.69 (0.70 - 0.86)* HL ?? 2.2 cm 16w5d (42y1h-10g0u) Rochelle ?? HL ?? 63% CER ??1.6 cm 16w4d (34e7w-21y6s) Goldste i CER ??64% GA for sonogram 16w4d (33n5h-36h0n) ? Weight Estimate: based on (HL,BPD,HC,AC,FL) Avg ? Weight: 165 gm (141-190) Hadlock ? : 0lbs, 5oz Cervical Length: ??4.8 cm Heart Rate: 156 bpm DOPPLER Umbilical - Mid Cord ? S/D ??5.22 (3.33 - 10.00) ? RI ?? 0.81 (0.70 - 0.90) ? CLINICAL SUMMARY A Complete Obstetric Ultrasound ??was d one. TYPE OF GESTATION: ? Mckeon PRESENTATION OF FETUS: ? Vertex PLACENTAL LOCATION: ? Anterior ?? The placenta is normal t exture. ? AMNIOTIC FLUID VOLUME IS: ?Normal. MOTION: ? Appears normal ? SPINE: ?? The spine is normal in both AP and t ransverse views. There is no evidence ?? of splaying of the spine or dorsal disru ption ? of ??the skin or spinal ?? processes. The spine is normally ossifie d and has normal curvature. HEAD: ? The head appears normal in shape and size. ? There is no deviation of midline ech oes, cyst formation or evidence of ?? hydrocephalus. ?? The posterior fossa appears grossly normal. ?? The cerebellar size and shape appear s normal today. ? THE NUCHAL SKIN FOLD IS 0.61 CM. ? The lateral ventricular atrium measu res 0.50 cm. FACE: ?? The nasal bone measures within mariella l limits. ?? The upper lip appears intact. Cleft palate cannot be ruled out by ?? ultrasound. ?? Position and size of the eyes, nose, and chin appear normal. ?? The profile was seen and appea rs normal. THORAX: ? The lung rosario appear normal. ?? Th ere is no pleural effusion seen. HEART: ?? The heart lies on the left side of t he thorax at normal cardiac axis. ?? The cardiac rhythm is regular and th e rate is normal. ?? A normal four chamber view is seen w ith normal valve motion, chamber sizes, ?? and contractility. ABDOMEN: ?? The diaphragm is intact. ? The stomach lies below the left diap hragm. The bowel echoes are normal for ?? this gestational age. ?? There is no evidence of ascites. UMBILICAL CORD: ?? The umbilical cord inserts into an i ntact abdominal wall. ?? The umbilical cord contains three ve ssels. ?? The umbilical cord inserts centrally into the placenta. GENDER: ?? The fetus appears to be male. ??The patient is aware of this information. KIDNEYS: ?? There is no evidence of pyelectasis. ?? The kidneys are of normal echogenici ty, shape and size. ?? The bladder is filled and is of norm al size and shape. EXTREMITIES: ?? All four extremities are visualized and movement is noted. UTERUS AND ADNEXAE: ? The uterus appears normal. ??The adn exal areas were surveyed and appear ?? grossly normal CERVIX: ?? The cervix measures ??4.8 cm in toi th by transabdominal scan. ?? There is no evidence of funneling at the internal os. GROWTH: ?? Consistent with normal growth Procedure Note Jessica Muniz MD - 6 [facility] [address] [place] [address] Fax: Pat. Name: DESIREE NOLASCOZUHAIR Patton Study Date: 11/18/2011 7:49am Pat. No: [id number] Referring MD: Nikole Dalton HEALTH PROMOTION COORDINATOR 1346 LMP: 07/29/2011 Neuroradiologist: Elizabeth Ryan RDMS GA by LMP: 16w0d , Age: 10 1980, 3 3 GA by 1st: 16w0d Pregnancies: 2, Para 1001 GA by US: 16w4d GA Selected: 16w0d (LMP) Hist/Ind: Abnormal First Trimester Scree pollo Nuchal Translucency 5.7mm NL CVS - 46 XY Ob Complete MARIANO: 05/04/2012 MEASUREMENTS & AGE GROWTH EV ALUATION Measurement GA Range Source % 16w0d Rati os ----- ------- BPD 3.2 cm 16w0d (98j6j-18g4f) Hadlock B PD 51% FL/BPD 0.63 HC 12.6 cm 16w3d (80t4v-05c6e) Hadlock H C 64% FL/AC 0.17 AC 11.6 cm 17w3d (72y0d-96v7m) Hadlock A C 87% HC/AC 1.08 (1.09 - 1.28)* FL 2.0 cm 16w0d (15i7j-43i3b) Hadlock FL 51% CI 0.69 (0.70 - 0.86)* HL 2.2 cm 16w5d (51q7a-87g1d) Rochelle HL 63% CER 1.6 cm 16w4d (93r0y-45u7e) Luis Miguel CER 64% GA for sonogram 16w4d (62l8r-93d2q) Feta l Weight Estimate: based on (HL,BPD,HC,AC,FL) Avg Weight: 1 65 gm (141-190) Hadlock : 0lbs, 5oz Cervical Length: 4.8 cm Heart Rate: 156 bpm DOPPLER Umbilical - Mid Cord S/D 5.22 (3.33 - 10.00) RI 0.81 (0.70 - 0.90) CLINICAL SUMMARY A Complete Obstetric Ultrasound was tarik owens. TYPE OF GESTATION: Mckeon PRESENTATION OF FETUS: Vertex PLACENTAL LOCATION: Anterior The placenta is normal texture . AMNIOTIC FLUID VOLUME IS: Normal. MOTION: Appears normal SPINE: The spine is normal in both AP and gottlieb sverse views. There is no evidence of splaying of the spine or dorsal disru ption of the skin or spinal processes. The spine is normally ossifie d and has normal curvature. HEAD: The head appears normal in shape and si ze. There is no deviation of midline echoes , cyst formation or evidence of hydrocephalus. The posterior fossa appears grossly nor mal. The cerebellar size and shape appears n ormal today. THE NUCHAL SKIN FOLD IS 0.61 CM. The lateral ventricular atrium measures 0.50 cm. FACE: The nasal bone measures within normal l imits. The upper lip appears intact. Cleft pal ate cannot be ruled out by ultrasound. Position and size of the eyes, nose, an d chin appear normal. The profile was seen and appears normal. THORAX: The lung rosaroi appear normal. There is no pleural effusion seen. HEART: The heart lies on the left side of the thorax at normal cardiac axis. The cardiac rhythm is regular and the r ate is normal. A normal four chamber view is seen with normal valve motion, chamber sizes, and contractility. ABDOMEN: The diaphragm is intact. The stomach lies below the left diaphra gm. The bowel echoes are normal for this gestational age. There is no evidence of ascites. UMBILICAL CORD: The umbilical cord inserts into an inta ct abdominal wall. The umbilical cord contains three vesse ls. The umbilical cord inserts centrally in to the placenta. GENDER: The fetus appears to be male. The patie nt is aware of this information. KIDNEYS: There is no evidence of pyelectasis. The kidneys are of normal echogenicity, shape and size. The bladder is filled and is of normal size and shape. EXTREMITIES: All four extremities are visualized and movement is noted. UTERUS AND ADNEXAE: The uterus appears normal. The adnexal areas were surveyed and appear grossly normal CERVIX: The cervix measures 4.8 cm in length by transabdominal scan. There is no evidence of funneling at th e internal os. GROWTH: Consistent with normal growth IMPRESSION 1. Mckeon gestation at 16w0d 2. Average ultrasound age 16w4d 3. Increased nuchal fold 4. No other anatomic abnormalities 5. Normal LEELA RECOMMENDATION: There is no evidence of a cardiac defect on today's exam. The patient will return in 3 weeks for a Level 2 ultrasound. Jessica Muniz MD <Electronic Signature> 11/18/2011 09:55a m Sonja Dalton JOB PUTTER UP AND TICKET PREPARER, HAND COKE DRAWER RAD BERTHA US documented in this encounter Visit Diagnoses Not on filedocumented in this encounter Care Teams Tax Collection Coordinator Relationship Specialty Start Date End Date Allen Amaya MD PCP - General 02/12/12 02/01/13 [address] [place] [address] documented as of this encounter
--- OUTSIDE RECORDS SUMMARY | 2022-03-23 17:33 | XMS_ITS | Encounter Summary ---
:1980 Author Organization [facility] Address [address] [place] [address] Care Team Providers Name Role Phone Mikala Best APRN, CNP Primary Care Provider [phone] Encounter Details Date Type Department Care Team Description 10/24/2011 Hospital Encounter [facility] Abnormal findings on [address] [facility] [place] [address] Social History Tobacco Use Types Packs/Day Years Used Date Smoking Tobacco: Never Assessed Sex Assigned at Date Recorded Not on file documented as of this encounter Medications at Time of Discharge Medication Sig Dispensed Refills Start Date End Date butalbital-acetaminophen- Take 1 tablet by 30 tablet 0 10/1211/04/2011 caffeine (AKA FIORICET) mouth every 4 hours 50-325-40 MG as needed for tabletIndications: Headaches. Generalized headaches ondansetron (AKA ZOFRAN) Take 1 tablet by 30 tablet 0 09/1011/15/2011 4 MG disintegrating mouth every 8 hours tablet as needed for Nausea and Vomiting. Dissolve tablet on tongue pediatric multiple Take 1 tablet by 0 09/23/2011 11/15/2011 vitamin-iron (FRUITY mouth daily (every CHEWS/IRON) chew tablet 24 hours). Indications: VITAMIN DEFICIENCY PREVENTION documented as of this encounter Plan of Treatment Not on filedocumented as of this encounter Procedures Procedure Name Priority Date/Time Associated Diagnosis Comme nts LAB MISCELLANEOUS Routine 10/24/2011 2:45 PM Abnormal findings on Results for this CDT screening procedur e are in the results section. documented in this encounter Results LAB MISCELLANEOUS (10/24/2011 2:45 PM CDT) [facility] gist Method Time Signature Test Name CVS- FISH HP CONVERSION Test Code [facility]S-FISH HP CONVERSION Performing [facility] HP CONVERSION Laboratory Cytogene Result See Note HP CONVERSION Comment: SHAMIR NOLASCO RESULT SUMMARY: ??XY VILLI WITH NO STATI STICAL EVIDENCE OF TRISOMY FOR CHROMOSOMES 13, 18 OR 21 BY FISH. SAMPLE TYPE: CHORIONIC VILLI SAMPLE REASON FOR REFERRAL: ABNORMAL NUCHAL TRA NSLUCENCY KARYOTYPE: nuc alessandra(DXZ1x1,DYZ3x1,Q60T8q4),(RB1,D21S 342)x2 INTERPRETATION: Fluorescence in situ hybridization (FISH ) using alpha/cosmid molecular probes ([employer] specific for ch romosomes 13, 18, 21 and the X and Y chromosomes, was perform ed on uncultured interphase cells from this chorionic castro li specimen. A minimum of 50 cells were analyzed for ea ch probe set. The FISH results suggest this specimen is fr om an XY villi with no statistical evidence of trisomy for c hromosomes 13, 18 and 21 [within the limits of the FISH techno logy utilized (JOSÉ MIGUEL Lamb et al. 1994; DEMI Coronel et al., 1994)] . Genetic counseling is indicated. This FDA cleared test was developed and its performance characteristics determined by the [facility] Cytogenetics Laboratory. Specimen Anatomical Collection Method Collection Time Receive d Time (Source) Location / / Volume Laterality 10/24/2011 2:45 PM 2 2:45 CDT PM CDT Michelle Huizar LAB_1 Performing Organization Address City/State/ZIP Code Phon e Number HP CONVERSION documented in this encounter Visit Diagnoses Diagnosis Abnormal findings on screening documented in this encounter Care Teams Dairy Machine Operator Farmworker Relationship Specialty Start Date End Date Mikala Best, PLANNING AND ANALYSIS MANAGER, SUPERVISOR PLASMA PCP - General 07/16/10 02/11/12 [id number] [place] [id number] documented as of this encounter
--- OUTSIDE RECORDS SUMMARY | 2022-03-23 17:33 | XMS_ITS | Encounter Summary ---
:1980 Author Organization [facility] Address [address] [address] Care Team Providers Name Role Phone Mikala Best APRN, CNP Primary Care Provider [phone] Reason for Visit Reason Comments Concerns Encounter Details Date Type Department Care Team Description 02/11/2012 Nurse Triage Allen Tam Concerns Obstetrics/[place] [address] [facility] [address] [place] [address] [place] [address] [phone] (Wo rk) Social History Tobacco Use Types Packs/Day Years Used Date Smoking Tobacco: Never Assessed Sex Assigned at Date Recorded Not on file documented as of this encounter Nursing Notes Angeline Siddiqui - 02/11/2012 11:11 AM CDT Protocol: - ABDOMINAL PAIN GREATER THAN 20 WEEKS [id number] Affirmative: Patient wants to be seen Disposition of See Within 12 - 24 Hours (Office or Urgent Care) suggested. Pt. calling with c/o a pain that starts in the right side of her upper back. States it than wraps around to the ribs on her right side. Does not appear to be affected by diet. Pt. does feel nauseated today. Has tried heat, cold and Tylenol. Took 2 ibuprofen with no relief. Reminded the pt. that ibuprofen is not approved to take while . States she was desperate. An appt. was made this afternoon with . documented in this encounter Plan of Treatment Not on filedocumented as of this encounter Visit Diagnoses Not on filedocumented in this encounter Care Teams Country Manager Relationship Specialty Start Date End Date Mikala Best APRN, FIRE EXTINGUISHER MECHANIC PCP - General 07/16/10 02/11/12 [address] [address] [place] [address] documented as of this encounter
--- OUTSIDE RECORDS SUMMARY | 2022-03-23 17:33 | XMS_ITS | Encounter Summary ---
:1980 Author Organization [facility] Address [address] [place] [address] Care Team Providers Name Role Phone Allen Amaya MD Primary Care Provider [phone] Reason for Visit Reason Comments Concerns Encounter Details Date Type Department Care Team Description 03/12/2012 Telephone Allen Tam Concerns Obstetrics/[place] [address] [facility] [address] [place] [address] [place] [address] [phone] (Wo rk) Social History Tobacco Use Types Packs/Day Years Used Date Smoking Tobacco: Never Assessed Sex Assigned at Date Recorded Not on file documented as of this encounter Nursing Notes Bhavana Pierson - 03/12/2012 1:43 PM CST Pt is calling to get more info about angel nagel cx because she has been having a few painful onestd. Referenced What to Expect when you're Expecting and reviewed true labor vs angel nagel. Pt states they are not increasing in frequency or intensity. She hasn't noticed if position changes affect them. Encouraged to call back if they increase in frequency and intensity, pt agrees. documented in this encounter Plan of Treatment Not on filedocumented as of this encounter Visit Diagnoses Not on filedocumented in this encounter Care Teams Ceramic Designer Relationship Specialty Start Date End Date Allen Amaya MD PCP - General 02/12/12 02/01/13 [address] [place] [address] documented as of this encounter
--- OUTSIDE RECORDS SUMMARY | 2022-03-23 17:33 | XMS_ITS | Encounter Summary ---
:1980 Author Organization [facility] Address [address] [place] [address] Care Team Providers Name Role Phone Allen Amaya MD Primary Care Provider [phone] Encounter Details Date Type Department Care Team Description 03/06/2012 Lab Visit [facility] macrosomia [address] [place] [address] Social History Tobacco Use Types Packs/Day Years Used Date Smoking Tobacco: Never Assessed Sex Assigned at Date Recorded Not on file documented as of this encounter Progress Notes Taylor Edward - 03/09/2012 12:28 PM NUT THREADER Quick Note: Pt already aware of glucose results per Dr Amaya's office and 3 hr gtt ordered. pt called and all questions answered. THREADER Mikala Iverson MD - 03/09/2012 9:46 AM NUT THREADER Quick Note: needs 3hr GTT, please call pt documented in this encounter Miscellaneous Notes Miscellaneous - 05/24/2016 12:34 PM CSTNotes Recorded by Taylor Edward RN on 03/09/2012 at 12:28 PMPt already aware of glucose results per Dr Amaya's office and 3 hr gtt ordered. pt called and all questions answered.------Notes Recorded by Mikala Iverson MD on 03/09/2012 at 9:46 AMneeds 3hr GTT, please call pt THREADER documented in this encounter Plan of Treatment Not on filedocumented as of this encounter Procedures Procedure Name Priority Date/Time Associated Diagnosis Comme nts GLUCOSE - 1 HR. Routine 03/06/2012 10:23 AM macrosomia R esults for this P.C. PREG NUT THREADER procedure are i n the results section. documented in this encounter Results (ABNORMAL) Glucose - 1 Hr. P.C. Preg (03/06/2012 10:23 AM NUT THREADER) athologist Signature Glucose 141 (H) 50 - 134 HP CONVERSION [place] mg/dL Screen Specimen Anatomical Collection Method Collection Time Receive d Time (Source) Location / / Volume Laterality 03/06/2012 10:23 03/06/2012 AM NUT THREADER 10:23 AM NUT THREADER Narrative HP CONVERSION - 03/06/2012 10:59 AM NUT THREADER Performed at [facility], [address] [place] [address] Transcriptions 05/24/2016 12:34 PM CSTNotes Recorded by Taylor Edward RN on 03/09/2012 at 12:28 PMPt already aware of glucose results per Dr Amaya's office and 3 hr gtt ordered. pt called and all questions answered.------ Notes Recorded by Mikala Iverson MD on at 9:46 AMneeds 3hr GTT, please call pt Mikala Iverson MD LAB_1 Performing Organization Address City/State/ZIP Code Phon e Number HP CONVERSION documented in this encounter Visit Diagnoses Diagnosis macrosomia Excessive growth affecting managem ent of mother, antepartum documented in this encounter Care Teams Assistant Press Operator Relationship Specialty Start Date End Date Allen Amaya MD PCP - General 02/12/12 02/01/13 [address] [place], [place] [id number] documented as of this encounter
--- OUTSIDE RECORDS SUMMARY | 2022-03-23 17:33 | XMS_ITS | Encounter Summary ---
:1980 [facility] Address [address], [place] [address] Care Team Providers Name Role Phone Allen Amaya MD Primary Care Provider [phone] Reason for Referral Specialty Diagnoses / Procedures Referred By Contact Refer red To Contact Allen Amaya MD [address] [place] [address] Referral ID Status Reason Start Date Expiration Date Visits Requ ested Visits Authorized Reason for Visit Reason Comments CONSULT Encounter Details Date Type Department Care Team Description 02/13/2012 Initial Consult [facility] [place] [address] Diana Gomez MD right kidney ([address] [place], [place] [facility] [address] [place], [place] [phone] [address] Social History Tobacco Use Types Packs/Day Years Used Date Smoking Tobacco: Never Assessed Sex Assigned at Date Recorded Not on file documented as of this encounter Last Filed Vital Signs Vital Sign Reading Time Taken Comments Blood Pressure 98/60 02/13/2012 8:27 AM CDT Pulse 70 02/13/2012 8:27 AM CDT Temperature - - Respiratory Rate - - Oxygen Saturation - - Inhaled Oxygen Concentration - - Weight - - Height - - Body Mass Index - - documented in this encounter Progress Notes Deana Nicole MD - 02/14/2012 12:31 PM CDT Quick Note: Talked with pt. Pain somewhat improved today. Study inconclusive. Will consider further imaging if pain increases again. Pt will call me if she is feeling worse. Karen can we call her Friday to check on symptoms. Deana Nicole MD - 02/13/2012 9:22 AM CDT Urology Consult HPI: Patient is a very pleasant 31-year-old female with a history of right upper back pain and hydronephrosis on ultrasound. The pain started about one week ago and at times is excruciating. It comes and goes and is sharp in nature. The patient can pinpoint the pain to the upper back. The pain is worse with eating and the patient feels like she has to urinate all the time. Initially the patient thought was bad sciatica. She's tried stretching and is under career orientation teacher and has had no improvement. Initially was thought that could be gallbladder related and she underwent an ultrasound which showed some hydronephrosis. There is no stones identified. Unclear if the hydronephrosis is secondary to gravid uterus or if she could have an internal obstruction. History of urolithiasis: None Clinic UA: Negative blood, negative nitrates, and trace leukocyte esterase Review of systems: Patient complains of fatigue, shortness of breath, headache, constipation. No chest pain, no shortness of breath, the rest of the complete review of systems other than what is statedin the HPI is negative PMH: Patient Active Problem List Diagnoses Code ??? Herpes Simplex NOS 054.9 ??? Dysmenorrhea 625.3 ??? 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 Supervision of normal subsequent V22.1H ??? Generalized headaches 784.0BY PSH: Past Surgical History Procedure Date ??? Tonsillectomy and adenoidectomy LW Problem: Tonsillectomy & Adenoidectomy S/p LW Onset: 1983 ??? [place] tooth extraction ??? 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 Medications: Current outpatient prescriptions Medication Sig Dispense Refill ??? acetaminophen (TYLENOL) 325 mg tablet Take 650 mg by mouth every 4 hours as needed. Maximum 4000mg per 24 hours ??? desonide (DESOWEN) 0.05 % cream Apply topically 2 times daily. 30 g 0 ??? HYDROcodone-acetaminophen (VICODIN) 5-500 mg per tablet Take 1-2 tablets by mouth every 4 hours as needed for Pain (severe pain). 30 tablet 0 ??? yurkkpc-osim-ddkro acid 27-1 mg Tab Take 1 tablet by mouth daily (every 24 hours). Allergies: Allergies Allergen Reactions ??? Aliasuma Richi Blacks out VS: BP 98/60 Pulse 70 LMP 07/29/2011 General: Comfortable, alert, awake, oriented Psych: Judgment and insight intact Oriented to time, place and person Resp: no wheezing, normal resp effort Abdomen: gravid, soft, nontender, nondistended, no masses No hepato/splenomegaly No obvious hernias Back: no CVA tenderness Skin: warm, dry and intact Gait: normal gait Extremities: no swelling Assessment: Right hydronephrosis Back pain Plan: I had a good discussion with the patient regarding the difficulty of the situation that she is in. It's not clear whether she has a kidney stone or that the symptoms she is having are caused by something else. Elements that would argue for a kidney stone are the fact that she does have hydronephrosis on the right side though we cannot compare this to the left side, she has pain on the right side however the pain is much higher than typical kidney stone pain, and she has urinary frequency. Comment the argue against a kidney stone is that the patient has no blood in her urine, no history of kidney stones, pain that she is experiencing is much higher than typical for a kidney stone, the pain is worse with eating, and urinary frequency can be a typical symptom of . Unfortunately because she's we generally try to avoid CT scans, therefore elect to start out with an ultrasound looking for ureteral jets. Also look at the left kidney and be able to compare the 2 sides. I gave the patient a prescription for Vicodin and told her it is okay to use it sparingly. I discussed with her we don't have enough information from the ultrasound she consider a low-dose CT scan. She was opened to this. documented in this encounter Miscellaneous Notes Miscellaneous - 05/24/2016 1:16 PM CSTNotes Recorded by Deana Nicole MD on 02/14/2012 at 12:31 PMTalked with pt. Pain somewhat improved today. Study inconclusive. Will consider further imaging if pain increases again. Pt will call me if she is feeling worse.Karen can we call her Friday to check on symptoms. ECTOR CANNED FOOD RECONDITIONING documented in this encounter Plan of Treatment Scheduled Referrals Name Type Priority Associated Diagnoses Order [facility] Urology Referral Routine Hydronephrosis of right Orde red: 02/13/2012 Consult-Adults kidney documented as of this encounter Procedures Procedure Name Priority Date/Time Associated Diagnosis Comme nts US RENAL W BLADDER Routine 02/14/2012 11:28 Hydronephrosis of right Results for this AM CDT kidney procedure are i n the results section. documented in this encounter Results US Renal W Bladder (02/14/2012 11:28 AM CDT) Anatomical Region Laterality Modality Abdomen, Pelvis Other Specimen (Source) Anatomical Location Collection Method / Collectio n Time Received Time / Laterality Volume Impressions 02/14/2012 11:43 AM CDT IMPRESSION: Bilateral hydronephrosis, greater on the right than the left. This is unchanged to slightly incr eased from the prior exam. No ureteral jets could be seen on either th e ureter. This may represent hydronephrosis secondary to a stone or m aternal hydronephrosis. ?? If there is continued concern for stone, co uld consider noncontrast MRI. Narrative 02/14/2012 11:43 AM CDT Renal ultrasound HISTORY: patient COMPARISON: Ultrasound dated 02/12/2012 FINDINGS: Both kidneys are of normal par enchyma architecture without focal mass. ??There continues to be righ t hydronephrosis with the right renal pelvis measuring up to 3.6 c m. On the prior exam it measured approximately 3.4 cm. The left renal pelvis is also dilated but to a lesser extent measuring approxi mately 1.8 cm. ??Both ureteral orifices at the level of the bladder wer e observed for 10 minutes, no jet was visualized. ??Post void volume i s not legible. ??The right kidney measures 11.8 cm longitudinally a nd the left kidney measures 12.2 cm. Procedure Note Lorri Draper MD - 09/30/2015Formatt ing of this note might be different from the original. Renal ultrasound HISTORY: patient COMPARISON: Ultrasound dated 02/12/2012 FINDINGS: Both kidneys are of normal par enchyma architecture without focal mass. There continues to be right hydronephrosis with the right renal pelvis measuring up to 3.6 c m. On the prior exam it measured approximately 3.4 cm. The left renal pelvis is also dilated but to a lesser extent measuring approxi mately 1.8 cm. Both ureteral orifices at the level of the bladder wer e observed for 10 minutes, no jet was visualized. Post void volume is not legible. The right kidney measures 11.8 cm longitudinally a nd the left kidney measures 12.2 cm. IMPRESSION IMPRESSION: Bilateral hydronephrosis, gr eater on the right than the left. This is unchanged to slightly incr eased from the prior exam. No ureteral jets could be seen on either th e ureter. This may represent hydronephrosis secondary to a stone or m aternal hydronephrosis. If there is continued concern for stone, co uld consider noncontrast MRI. Transcriptions Lorri Draper MD - 05/24/2016 1:16 P M CSTNotes Recorded by Deana Nicole MD on 02/14/2012 at 12:31 PMTalked with pt. Pain somewhat improved today. Study inconclusive. Will consider further imaging if pa in increases again. Pt will call me if s he is feeling worse.Karen can we call her Friday to check on symptoms. Deana Nicole MD RAD US documented in this encounter Visit Diagnoses Diagnosis Hydronephrosis of right kidney - Primary Hydronephrosis documented in this encounter Care Teams Senior Clinical Data Analyst Relationship Specialty Start Date End Date Allen Amaya MD PCP - General 02/12/12 02/01/13 [address] [place] [address] documented as of this encounter
--- OUTSIDE RECORDS SUMMARY | 2022-03-23 17:33 | XMS_ITS | Encounter Summary ---
:1980 Author Organization [email or web address] Address [address], [place] [address] Care Team Providers Name Role Phone Mikala Best APRN, CNP Primary Care Provider [phone] Reason for Visit Reason Comments Routine Visit Encounter Details Date Type Department Care Team Description 12/18/2011 Routine [place] Allen Amaya dc Obstetrics/Gynecolo MD Kiran Visit gy [address] [facility] [address] [place], [place] [address] [address] [place], [place] [phone] (Wo rk) [address] [phone] Social History Tobacco Use Types Packs/Day Years Used Date Smoking Tobacco: Never Assessed Sex Assigned at Date Recorded Not on file documented as of this encounter Last Filed Vital Signs Vital Sign Reading Time Taken Comments Blood Pressure 99/62 12/18/2011 7:21 AM CDT Pulse 81 12/18/2011 7:21 AM CDT Temperature - - Respiratory Rate - - Oxygen Saturation - - Inhaled Oxygen Concentration - - Weight 84.3 kg (185 lb 12.8 oz) 12/18/2011 7:21 AM CDT Height - - Body Mass Index 30.92 09/23/2011 7:48 AM CDT documented in this encounter Progress Notes Allen Amaya - 12/18/2011 7:43 AM CDT No problems. Not feeling consistent movement yet. Feeling better agter Level2 showed only thickened fold. RTC 4 weeks. documented in this encounter Plan of Treatment Not on filedocumented as of this encounter Visit Diagnoses Diagnosis Supervision of normal subsequent pregnan cy - Primary Supervision of other normal documented in this encounter Care Teams Supervisor Coil Winding Relationship Specialty Start Date End Date Mikala Best APRN, CARBON PAPER MACHINE OPERATOR PCP - General 07/16/10 02/11/12 [id number] [address] [place] [address] documented as of this encounter
--- OUTSIDE RECORDS SUMMARY | 2022-03-23 17:33 | XMS_ITS | Encounter Summary ---
:1980 Author Organization [email or web address] Address [address] [address] Care Team Providers Name Role Phone Mikala Best APRN, CNP Primary Care Provider [phone] Reason for Visit Reason Comments Routine Visit Encounter Details Date Type Department Care Team Description 11/04/2011 Routine Ghanshyam Dalton, Routine Pre elenita Obstetrics/Gynecolog Sonja Patton APRN, Suzi sit y DIVER'S TENDER [address] [address] [place] [address] [place], [place] [phone] [address] Social History Tobacco Use Types Packs/Day Years Used Date Smoking Tobacco: Never Assessed Sex Assigned at Date Recorded Not on file documented as of this encounter Last Filed Vital Signs Vital Sign Reading Time Taken Comments Blood Pressure 104/62 11/04/2011 3:33 PM CDT Pulse - - Temperature - - Respiratory Rate - - Oxygen Saturation - - Inhaled Oxygen Concentration - - Weight 83 kg (183 lb) 11/04/2011 3:33 PM CDT Height - - Body Mass Index 30.45 09/23/2011 7:48 AM CDT documented in this encounter Progress Notes Sonja Dalton APRN, BONITA - 11/04/2011 5:00 PM CDT Pt stated that she was informed today, that the chromosome were normal. Pt stated that she was discharged from the hospital today. Pt stated that she was admitted on Friday for H/A. Pt stated that the Vicodin is not working. I discussed placing Pt on Imitrex. I discussed the use,administration,side effects and warning signs. Pt voiced understanding. Pt stated that is not aware of movement as of yet. RTC 4 weeks Imitrex 50 mg SIG 1-2 as needed for Migraines documented in this encounter Plan of Treatment Not on filedocumented as of this encounter Visit Diagnoses Diagnosis Supervision of normal subsequent pregnan cy - Primary Supervision of other normal Generalized headaches Headache documented in this encounter Care Teams Retail Loss Prevention Investigator Relationship Specialty Start Date End Date Mikala Best APRN, DIVER'S TENDER PCP - General 07/16/10 02/11/12 [address] [address] [place] [address] documented as of this encounter
--- OUTSIDE RECORDS SUMMARY | 2022-03-23 17:33 | XMS_ITS | Encounter Summary ---
:1980 Author Organization [facility] Address [address] [place] [address] Care Team Providers Name Role Phone Allne Amaya MD Primary Care Provider Reason for Visit Reason Comments ERRONEOUS ENTRY Encounter Details Date Type Department Care Team Description 02/20/2012 Telephone [place] [address] Rosalva Pearson RN ERRONE OUS ENTRY Obstetrics/Gynecolog y [address] [facility] [place] [address] Social History Tobacco Use Types Packs/Day Years Used Date Smoking Tobacco: Never Assessed Sex Assigned at Date Recorded Not on file documented as of this encounter Nursing Notes Rosalva Pearson, RN - 02/20/2012 12:15 PM CST This encounter was created in error - please disregard. documented in this encounter Plan of Treatment Not on filedocumented as of this encounter Visit Diagnoses Diagnosis ERRONEOUS ENTRY - Primary documented in this encounter Care Teams 3D Technologist Relationship Specialty Start Date End Date Allen Amaya MD PCP - General 02/12/12 02/01/13 [place] [address] documented as of this encounter
--- OUTSIDE RECORDS SUMMARY | 2022-03-23 17:33 | XMS_ITS | Encounter Summary ---
:1980 Author Organization [facility] Address [address] [address] Care Team Providers Name Role Phone Allen Amaya MD Primary Care Provider Encounter Details Date Type Department Care Team Description 10/23/2011 Notes/Orders Specialty Center 3931 Gilles Iverson MD Maternal Medicine 3931 [facility] Ultrasound [address] [place] [address] [place] [address] [phone] Social History Tobacco Use Types Packs/Day Years Used Date Smoking Tobacco: Never Assessed Sex Assigned at Date Recorded Not on file documented as of this encounter Plan of Treatment Not on filedocumented as of this encounter Procedures Procedure Name Priority Date/Time Associated Diagnosis Comme [facility] US CVS Routine 10/24/2011 3:18 PM Results f or this CDT procedure are i n the results section . documented in this encounter Results Bertha US CVS (10/24/2011 3:18 PM CDT) Anatomical Region Laterality Modality Pelvis Other Specimen (Source) Anatomical Location Collection Method / Collectio n Time Received Time / Laterality Volume Impressions 10/24/2011 4:15 PM CDT IMPRESSION: ?? Intrauterine , 12+3/7 ??wee ks gestation ?? Thickened nuchal translucency PROCEDURE: ? After obtaining informed consent, chorionic villus sampling (CVS) was ?? done transabdominally under ultrasound g uidance following betadine and alcohol ?? prep of the abdomen. ??Lidocaine local i nfiltration was used in the skin. A 20 ?? gauge needle was passed through the uter ine wall and into the anterior placenta. ?2-3mg of chorionic villi were obtaine d. ??The tissue was submitted for ?? karyotype. heart rate and activity were normal following the procedure. ?? The patient will be informed of results when available. She was given a written ?? list of post procedure precautions. The patient's blood type is ??O Rh postive. ?? She is therefore not a candidate for Rho Connor. ?? Mikala Iverson MD <Electronic Signature> ??10/24/2011 04:1 4pm Narrative 10/24/2011 4:15 PM CDT ? [facility] ?[facility] ? [address] ?[address] ? [place], [place] ??[address] ? Phone: ? Pat. Name: SHAMIR NOLASCO ? Study Date: ?? 10/24/2011 ?? 3:12pm Pat. No: ?? [id number] ?Referring MD: Nikole Dalton CONSTRUCTION ECONOMIST ?? 1346 LMP: ? 07/29/2011 ?Laborer Cement Gun Placing: ??Lisy Villa, RDMS GA by LMP: 12w3d ? , Age: ? 1980, 31 [place] by 1st: 12w3d ? Pregnancies: ?? 2, Para 1001 Hist/Ind: ??Abnormal First Trimester Scr eening ? Nuchal Translucency 5.7m m ? CVS ? GA Selected: ??12w3d (LMP) ? MARIANO: ?05/04/2012 Cervical Length: ??4.2 cm Heart Rate: 155 bpm CLINICAL SUMMARY A LIMITED ULTRASOUND for CVS guidance wa s done. TYPE OF GESTATION: Mckeon PRESENTATION OF FETUS: Transverse PLACENTAL LOCATION: ?? Anterior, fundal AMNIOTIC FLUID VOLUME IS: ??Within mariella l limits The nuchal skin fold is seen and measure s 5.7mm (>95th %tile) The nasal bone is visualized HEART: ??The cardiac rhythm is reg ular and the rate is normal. Procedure Note Mikala Iverson MD - 11/22/[address] [address] Fax: Pat. Name: SHAMIR NOLASCO Study Date: 10/24/2011 3:12pm Pat. No: [id number] Referring MD: Nikole Dalton CONSTRUCTION ECONOMIST 1346 LMP: 07/29/2011 Laborer Cement Gun Placing: Lisy Villa RDMS GA by LMP: 12w3d , Age: 10 1980, 1 3 GA by 1st: 12w3d Pregnancies: 2, Para 1001 Hist/Ind: Abnormal First Trimester Scree pollo Nuchal Translucency 5.7mm CVS GA Selected: 12w3d (LMP) MARIANO: 05/04/2012 Cervical Length: 4.2 cm Heart Rate: 155 bpm CLINICAL SUMMARY A LIMITED ULTRASOUND for CVS guidance wa s done. TYPE OF GESTATION: Mckeon PRESENTATION OF FETUS: Transverse PLACENTAL LOCATION: Anterior, fundal AMNIOTIC FLUID VOLUME IS: Within normal limits The nuchal skin fold is seen and measure s 5.7mm (>95th %tile) The nasal bone is visualized HEART: The cardiac rhythm is regul ar and the rate is normal. IMPRESSION IMPRESSION: Intrauterine , 12+3/7 [address] Thickened nuchal translucency PROCEDURE: After obtaining informed consent, chori onic villus sampling (CVS) was done transabdominally under ultrasound g uidance following betadine and alcohol prep of the abdomen. Lidocaine local inf iltration was used in the skin. A 20 gauge needle was passed through the uter ine wall and into the anterior placenta. 2-3mg of chorionic villi were obtained. The tissue was submitted for karyotype. heart rate and activity were normal following the procedure. The patient will be informed of results when available. She was given a written list of post procedure precautions. The patient's blood type is O Rh postive. She is therefore not a candidate for Rho Connor. Mikala Iverson MD <Electronic Signature> 10/24/2011 04:14p m Mikala Iverson MD [facility] documented in this encounter Visit Diagnoses Not on filedocumented in this encounter Care Teams Transit Mix Operator Relationship Specialty Start Date End Date Allen Amaya MD PCP - General 02/12/12 02/01/13 [address] [place], [place] [address] documented as of this encounter
--- OUTSIDE RECORDS SUMMARY | 2022-03-23 17:33 | XMS_ITS | Encounter Summary ---
:1980 Author Organization [facility] Address [address] [place] [address] Care Team Providers Name Role Phone Bevjenny Mikala URBINA CNP Primary Care Provider [phone] Reason for Referral Specialty Diagnoses / Procedures Referred By Contact Refer red To Contact Allen Amaya MD [facility] [place] [address] Referral ID Status Reason Start Date Expiration Date Visits Requ ested Visits Authorized Reason for Visit Reason Comments Headache Encounter Details Date Type Department Care Team Description 11/15/2011 Initial Consult Specialty Center [place], Migraine , chronic, without aura; 3931 Neurology MD Eugenia Myofascial pain syndrome, cervical; [facility]31 [facility] neralized headaches [address] [place] [phone] Social History Tobacco Use Types Packs/Day Years Used Date Smoking Tobacco: Never Assessed Sex Assigned at Date Recorded Not on file documented as of this encounter Last Filed Vital Signs Vital Sign Reading Time Taken Comments Blood Pressure 101/66 11/15/2011 11:13 AM CDT Pulse 79 11/15/2011 11:13 AM CDT Temperature - - Respiratory Rate 14 11/15/2011 11:13 AM CDT Oxygen Saturation - - Inhaled Oxygen Concentration - - Weight - - Height - - Body Mass Index - - documented in this encounter Patient Instructions Patient InstructionsEugenia Nava MD - 11/15/2011 12:00 PM CDT Migraine and myofascial pain. Discontinue Imitrex and Vicodin. Prevention (daily) therapy: Magnesium Oxide 400-600mg once a day. Chelated types are best tolerated. (To warn off diarrhea make sure it is chelated). -Consider amino acid chelates, such as Magnesium Plus or [place] (Brand names), which can be purchased online at [employer]. -You can also search at a reputable store such as [employer], [employer], or any Co-op store. You can also try topical Magnesium Chloride. -Chelated basically means firmly attached, usually to an amino acid or other organic component so that the two do not disassociate in the digestive system. Chelated minerals are better absorbed by the body. Acute therapy. Ibuprofen (Advil OTC) 220 mg - 2-3 tabs for moderate to severe headache. Max 6 tabs per day. Max 2-3days per week. Do not use if spotting or if abdominal cramping. STOP in 2nd part of third trimester. documented in this encounter Progress Notes Eugenia Nava MD - 11/15/2011 1:32 PM CDT Progress Notes signed by Eugenia Nava MD at 11/16/112152 Author: Eugenia Nava MD Service: (none) Author Type: Physician Filed: 11/16/112152 Note Time: 11/15/112 Status: Signed Grid Molder: Eugenia Nava MD (Physician) NAME: SHAMIR NOLASCO MR#: [id number] CSN: [id number] AUTHENTICATING CLINICIAN: Eugenia Nava MD CONFIRM #: [id number] LOC: 223 CLINIC PROGRESS NOTE DATE OF VISIT: 11/15/2011 : 1980 REASON FOR REFERRAL: I was asked by Dr. Amaya to evaluate Ms. Nolasco for headache. HISTORY OF PRESENT ILLNESS: Ms. Nolasco is very pleasant 31-year-old female who is currently 16 weeks into her second who presents for evaluation of headache. She states that headache started about a month ago. There were no antecedents such as head or neck injury, systemic or febrile illness. It was not a thunderclap or the worst headache of her life at the onset. She has tried sghy-gwf-ivlqvyt analgesics especially Tylenol then was given some Fioricet and Vicodin and most recently, sumatriptan 50 mg, but did not find anything really helpful. Indeed with Vicodin she would experience increase in headache hours after therapy. She was also hospitalized at [place] 11/02-11/03 and had an MRI and MRA of the brain non-con trast studies which were interpreted as negative. She describes that headache is occipital to frontal when severe associated with photo-, and phonophobia, nausea, even vomiting. She has not had associated focal neurological symptoms such as visual changes, problem with speech, weakness, sensory symptoms, vertigo or imbalance. Headaches are not induced with Valsalva, positional changes or with exertion. She reports a prior history of sinus headaches with onset dating to her 20's that she would managewith bazz-wqr-eudhbso analgesics and sinus remedies and at times with a course of antibiotics. She has history of cervical spine disease, had intermittent problem with her left arm and hand pain and sensory symptoms. Was evaluated with an MRI of the cervical spine on 01/21/2011 which showed a disk osteophyte complex with probable small to moderate-size central and left paracentral protrusion into the medial aspect of the neural foramen on the left with associated moderate to severe narrowing of the neural foramen at C6-7. She opted for surgical treatment at [facility] where she had diskectomy via anterior approach in June 2011. She states that following surgery symptoms affecting herleft arm resolved. She states that she really has not had any problematic neck pain since. She denies any recent systemic illness, fever, chills, night sweats, weight loss, generalized musculoskeletal pain, joint swelling, skin rash, gastrointestinal, genitourinary symptoms. She reports stress related to her job and she was concern about her current . She states that she was trying to get for a while. She recently learned that the final chromosome resultscame back normal without evidence of Down syndrome or trisomy 13 or 18. REVIEW OF SYSTEMS: Pertinent positives as summarized above in the history of present illness. Remainder of complete review of systems is negative. PAST MEDICAL HISTORY: Headaches as detailed above. 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. Tonsillectomy, and adenoidectomy. Endometriosis. Acne. MEDICATIONS: Vicodin p.r.n., Tylenol p.r.n., Imitrex 50 mg p.r.n. ALLERGIES: Ambien. SOCIAL HISTORY: She is , has a 6-year-old daughter, works in . Denies tobacco, alcohol use. Drinks 1 soda a day. FAMILY HISTORY: Mother with similar headaches diagnosed as migraine and also sinus disorder. OBJECTIVE: VITAL SIGNS: BP 101/66, HR 79, RR 14. GENERAL: She is alert, in no acute distress. Appears well for current stage of . Maintains good eye contact. CARDIOVASCULAR: Heart rate regular, no murmur. Carotids: No bruits. Peripheral pulses present. NEUROLOGICAL EXAM: Alert and oriented x3. Speech and conversational language are normal. Recent and remote memory intact. Normal attention span and concentration. Fund of knowledge appropriate. Cranialnerve exam 2 through 12 normal including funduscopic exam and visual rosario to confrontation. Motor exam reveals normal muscle tone and muscle strength throughout. Deep tendon reflexes are symmetric, and plantar responses are flexors. Cerebellar testing normal. Sensory exam is normal to all modalities. Gait normal including toe, heel, and tandem. Romberg negative. ASSESSMENT: Migraine without aura, progression to daily pattern, but no status. RECOMMENDATIONS: Her current headache frequency, and intensity warrants prophylactic therapy, however, commonly used migraine prophylactic drugs are in category C even D. Among prophylactic treatments propranolol has been widely used and is felt to be by some the only prophylactic drug that can be recommended in this difficult situation since other preventative drugs especially in the group of antiepileptic treatments are considered not safe during . She does not want to pursue propranolol at this time. Sheopted for an alternative management with magnesium. I gave her handout information on proper supplement and dosing. She has tried Vicodin, butalbital compounds and recently sumatriptan 50 mg, did not find anything really effective. She recalls that usually anti-inflammatory medications such as ibuprofen have been usually helpful for management of her headaches. Since she is already in second trimester she could useNSAIDs and I discussed with her importance of discontinuing should she have abdominal cramps, spotting and definitely in the second part of last trimester due to increased hemorrhagic risk to mother and fetus and possibly narrowing of the ductus arteriosus. I also discussed with her alternative non-pharmacological approach to management of headaches and recommend that she visits with our therapists to work on various tools such as breathing techniques, biofeedback, etc., but at this time she declined due to her busy schedule. Her neurological exam was normal, she does not report any worrisome headache features, focal neurological symptoms. Recently had normal imaging of the brain. She will follow up on an as-needed basis. Total time 60 minutes, counseling time 40 minutes. Counseled the patient about headache pathophysiology, associated symptoms, common triggers, prognosis, risks for progression, treatment options including non-pharmacological management and alternative treatments. Discussed recommended medications??? side effects, dosing, timing and limits, and importance of compliance. I attempted to answer any questions she had regarding the above and she agreed to proceed. DS:MEDQ C: CONFIRM #: [id number] documented in this encounter Plan of Treatment Scheduled Referrals Name Type Priority Associated Diagnoses Order S chedule Neurology Consult-Adults Referral Routine Generalized head aches Ordered: 11/15/2011 documented as of this encounter Visit Diagnoses Diagnosis Migraine, chronic, without aura Chronic migraine without aura, without m ention of intractable migraine without mention of status migrainosus Myofascial pain syndrome, cervical Mylagia and myositis, unspecified Generalized headaches Headache documented in this encounter Care Teams Private Watchman Relationship Specialty Start Date End Date Mikala Best APRN, VOTING MACHINE MECHANIC PCP - General 07/16/10 02/11/12 [id number] [place] [id number] documented as of this encounter
--- OUTSIDE RECORDS SUMMARY | 2022-03-23 17:33 | XMS_ITS | Encounter Summary ---
:1980 Author Organization [facility] Address [address], [place] [address] Care Team Providers Name Role Phone Mikala Best APRN, CNP Primary Care Provider [phone] Reason for Visit Reason Comments Routine Visit Encounter Details Date Type Department Care Team Description 02/11/2012 Routine [place] Allen Mahajan nv Obstetrics/Gynecolo MD Kiran Visit gy [address] [facility] [address] [place], [place] [address] [address] [place], [place] [phone] (Wo rk) [address] [phone] Social History Tobacco Use Types Packs/Day Years Used Date Smoking Tobacco: Never Assessed Sex Assigned at Date Recorded Not on file documented as of this encounter Last Filed Vital Signs Vital Sign Reading Time Taken Comments Blood Pressure 104/62 02/11/2012 1:36 PM CDT Pulse - - Temperature - - Respiratory Rate - - Oxygen Saturation - - Inhaled Oxygen Concentration - - Weight 90.3 kg (199 lb) 02/11/2012 1:36 PM CDT Height - - Body Mass Index 33.12 09/23/2011 7:48 AM CDT documented in this encounter Progress Notes Allen Mahajan - 02/12/2012 1:13 PM CDT Quick Note: Spoke with patient and informed of finding of moderate right hydronephrosis at 28 weeks gestation. Pain remains severe at times. Placed a referral to Urology in [facility]. Patient aware. Allen Mahajan - 02/12/2012 1:08 PM CDT Addended by: ALLEN MAHAJAN on: 02/12/2012 Modules accepted: Orders Allen Mahajan - 02/12/2012 1:08 PM CDT Abdominal U/S demonstrated moderate right hydronephrosis. Will refer to Urology for evaluation/treatment options. Patient symptomatic at 28 weeks gestation. Allen Mahajan - 02/11/2012 1:56 PM CDT RUQ pain and heartburn. RUQ sono ordered. Still with sciatica. DMS/Hgb today. baby active. No ctx. documented in this encounter Miscellaneous Notes Miscellaneous - 05/24/2016 1:20 PM CSTNotes Recorded by Allen Mahajan MD on 02/12/2012 at 1:13 PMSpoke with patient and informed of finding of moderate right hydronephrosis at 28 weeks gestation. Pain remains severe at times. Placed a referral to Urology in [facility]. Patient aware. TEACHER documented in this encounter Plan of Treatment Not on filedocumented as of this encounter Procedures Procedure Name Priority Date/Time Associated Diagnosis Comme nts US ABD RUQ ORGANS Routine 02/12/2012 11:14 AM Abdominal pain, Results for this CDT right upper quadrant procedu re are in the results section. documented in this encounter Results US Abd RUQ Organs (02/12/2012 11:14 AM CDT) Anatomical Region Laterality Modality Abdomen Other Specimen (Source) Anatomical Location Collection Method / Collectio n Time Received Time / Laterality Volume Impressions 02/12/2012 11:26 AM CDT IMPRESSION: ??Right hydronephrosis. ??Whether this is related to extrinsic compression from the gravid ut erus or reflects the presence of (unseen) ureteral calculus is unclear . Narrative 02/12/2012 11:26 AM CDT COMPARISON: ??None FINDINGS: ??Liver is normal in echogenic ity, no intra or extrahepatic biliary dilatation, with the common bile duct measuring 4 mm. No gallstones or gallbladder wall thickenin g. ??Pancreas unremarkable, tail partially obscured. ??No ascites Right kidney measures 11.6 x 5.6 x 5.4 c m and demonstrates moderate hydronephrosis. ??A definite calculus is not identified. ?? Procedure Note Kota Trivedi MD - 09/30/2015Format ting of this note might be different from the original. COMPARISON: None FINDINGS: Liver is normal in echogenicit y, no intra or extrahepatic biliary dilatation, with the common bile duct measuring 4 mm. No gallstones or gallbladder wall thickenin g. Pancreas unremarkable, tail partially obscured. No ascites Right kidney measures 11.6 x 5.6 x 5.4 c m and demonstrates moderate hydronephrosis. A definite calculus is n ot identified. IMPRESSION IMPRESSION: Right hydronephrosis. Whethe r this is related to extrinsic compression from the gravid ut erus or reflects the presence of (unseen) ureteral calculus is unclear . Transcriptions Kota Trivedi MD - 05/24/2016 1:20 PM CSTNotes Recorded by Allen Mahajan MD on 02/12/2012 at 1:13 PMSpoke with patient and informed of finding of moderate right hydronephrosis at 28 weeks gestation. Pa in remains severe at times. Placed a ref erral to Urology in [facility]. Patient aware. Allen Mahajan MD [facility] documented in this encounter Visit Diagnoses Diagnosis Heartburn RUQ abdominal pain Abdominal pain, right upper quadrant Supervision of normal subsequent pregnan cy Supervision of other normal Abdominal pain, right upper quadrant Hydronephrosis of right kidney Hydronephrosis documented in this encounter Care Teams Intelligent Systems Engineer Relationship Specialty Start Date End Date Mikala Best APRN, SUPERVISOR MOLD CONSTRUCTION PCP - General 07/16/10 02/11/12 [address] [place] [id number] documented as of this encounter
--- OUTSIDE RECORDS SUMMARY | 2022-03-23 17:33 | XMS_ITS | Encounter Summary ---
:1980 [facility] Address [address], [place] [address] Care Team Providers Name Role Phone Allen Amaya MD Primary Care Provider [phone] Reason for Visit Reason Comments Routine Visit Encounter Details Date Type Department Care Team Description 03/25/2012 Routine [place] Allen Amaya Obstetrics/Gynecolo MD Kiran Visit gy [address] [address] [place], [place] [address] [address] [place], [place] [phone] (Wo rk) [address] [phone] Social History Tobacco Use Types Packs/Day Years Used Date Smoking Tobacco: Never Assessed Sex Assigned at Date Recorded Not on file documented as of this encounter Last Filed Vital Signs Vital Sign Reading Time Taken Comments Blood Pressure 122/66 03/25/2012 7:19 AM SENIOR TABLEAU DEVELOPER Pulse - - Temperature - - Respiratory Rate - - Oxygen Saturation - - Inhaled Oxygen Concentration - - Weight 91.6 kg (202 lb) 03/25/2012 7:19 AM SENIOR TABLEAU DEVELOPER Height - - Body Mass Index 33.61 09/23/2011 7:48 AM CDT documented in this encounter Progress Notes Allen Amaya - 03/25/2012 8:14 AM CST C/O decreased movement as appointment ended. NST performed - reactive. RTC 2 weeks Allen Amaya - 03/25/2012 7:27 AM CST Baby active. No significant ctx. Nausea and back pain continue. Vicodin not helpful. documented in this encounter Plan of Treatment Not on filedocumented as of this encounter Visit Diagnoses Diagnosis Supervision of normal subsequent pregnan cy - Primary Supervision of other normal documented in this encounter Care Teams Medical Apparatus Model Maker Relationship Specialty Start Date End Date Allen Amaya MD PCP - General 02/12/12 02/01/13 [address] [place] [address] documented as of this encounter
--- OUTSIDE RECORDS SUMMARY | 2022-03-23 17:33 | XMS_ITS | Encounter Summary ---
:1980 Author Organization [facility] Address [address] [place] [address] Care Team Providers Name Role Phone Allen Amaya MD Primary Care Provider [phone] Encounter Details Date Type Department Care Team Description 02/12/2012 Hospital Encounter [facility] Allen Amaya [address] MD Kiran [place], [place] [address] [address] [place] [address] [phone] (Wo rk) Social History Tobacco Use Types Packs/Day Years Used Date Smoking Tobacco: Never Assessed Sex Assigned at Date Recorded Not on file documented as of this encounter Medications at Time of Discharge Medication Sig Dispensed Refills Start Date End Date acetaminophen (AKA Take 650 mg by mouth 0 012 06/09/2012 TYLENOL) 325 MG every 4 hours as tabletIndications: needed. Maximum AMANDA NEVILLE Mon 4000mg per 24 hours Nov 18, 2011 3:18 PM prn desonide (AKA DESOWEN) Apply topically 2 30 g 0 201104/03/2012 0.05 % cream times daily. Vit-Fe Take 1 tablet by 0 01/16/2012 Fumarate-FA ( OR) mouth daily (every 24 hours). documented as of this encounter Plan of Treatment Not on filedocumented as of this encounter Visit Diagnoses Not on filedocumented in this encounter Care Teams Environmental Services Technician Relationship Specialty Start Date End Date Allen Amaya MD PCP - General 02/12/12 02/01/13 [address] [place] [address] documented as of this encounter
--- OUTSIDE RECORDS SUMMARY | 2022-03-23 17:33 | XMS_ITS | Encounter Summary ---
:1980 Author [facility] Address [address] [address] Care Team Providers Name Role Phone Mikala Best APRN, CNP Primary Care Provider [phone] Reason for Visit Reason Comments Palpitations Concerns Encounter Details Date Type Department Care Team Description 12/06/2011 Nurse Triage Allen Tam ons; Obstetrics/Gynecolog MD Kiran Concerns y [address] [facility] [address] [place], [place] [id number] [place] [address] [phone] Social History Tobacco Use Types Packs/Day Years Used Date Smoking Tobacco: Never Assessed Sex Assigned at Date Recorded Not on file documented as of this encounter Nursing Notes Bhavana Pierson - 12/06/2011 12:59 PM CDT Pt has been having intermittent palpitations. Referenced What to Expect when you're Expecting. Reviewed that it is common in women due to increased blood volume. Encouraged to call back if worsens, pt agrees. Protocol: HEART RATE AND HEART BEAT [id number] Affirmative: Palpitations Disposition of Home Care suggested. documented in this encounter Plan of Treatment Not on filedocumented as of this encounter Visit Diagnoses Not on filedocumented in this encounter Care Teams Data Security Coordinator Relationship Specialty Start Date End Date Mikala Best APRN, CNP PCP - General 07/16/10 02/11/12 [address] [address] [place] [place] [id number] documented as of this encounter
--- OUTSIDE RECORDS SUMMARY | 2022-03-23 17:33 | XMS_ITS | Encounter Summary ---
:1980 Author Organization [facility] Address [address] [place] [address] Care Team Providers Name Role Phone Mikala Best APRN, CNP Primary Care Provider [phone] Encounter Details Date Type Department Care Team Description 10/24/2011 Hospital Encounter [facility] Abnormal findings on [address] [facility] [place] [address] Social History Tobacco Use Types Packs/Day Years [...] Name Priority Date/Time Associated Diagnosis Comme nts CHORIONIC VELAZQUEZ Routine 10/24/2011 2:45 PM Abnormal findings o n Results for this SAMPLING CDT screening procedur e are in the results section. documented in this encounter Results CHORIONIC VELAZQUEZ SAMPLING (10/24/2011 2:45 PM CDT) [facility] Signature Chorionic See Note HP CONVERSION Villi Samp Comment: SHAMIR NOLASCO RESULT SUMMARY: ??Apparently normal male karyotype. SAMPLE TYPE: Chorionic Villi Sample REASON FOR REFERRAL: Abnormal Nuchal Tra nslucency TESTING PERFORMED: ??Chromosome Analysis STAINING PERFORMED: ??G-banding CELL ANALYSIS ?KARYOGRAMS ?? BAND LE CHAPIS RANGE FULL: ??6 ? FULL: 2 ? 525 PARTIAL: 14 ?PARTIAL: 3 ISCN NOMENCLATURE: ??46,XY INTERPRETATION: ??The metaphases analyze d from this chorionic villi specimen have an apparently normal male karyotype (within the limits of the technology uti lized in this twenty cell study from a 5 mg sample). ??This s tudy does not rule out mosaicism confined to the fetus that wou ld lead to a false negative interpretation of these results . A verbal preliminary report from 10 [place] tphases was given to Danyelle Simeon MS [facility] on November 01, 2011. This chromosome study is consistent with the fluorescence in situ hybridization (FISH) result (see 2011 FISH Report). Note: ??Cultured cells from this specime n are being HELD for possible additional testing pending noti fication. Specimen Anatomical Collection Method Collection Time Receive d Time (Source) Location / / Volume Laterality 10/24/2011 2:45 PM 2 2:45 CDT PM CDT Narrative HP CONVERSION - 11/05/2011 3:21 PM CDT Performed at [facility] [address] [place] [address] Michelle Huizar LAB_1 Performing Organization Address City/State/ZIP Code Phon e Number HP CONVERSION documented in this encounter Visit Diagnoses Diagnosis Abnormal findings on screening documented in this encounter Care Teams Supervisor Grounds Relationship Specialty Start Date End Date Mikala Best, BINDER AND WRAPPER PACKER, CLOTHING SORTER PCP - General 07/16/10 02/11/12 [id number] [place] [address] documented as of this encounter
--- OUTSIDE RECORDS SUMMARY | 2022-03-23 17:33 | XMS_ITS | Encounter Summary ---
:1980 Author Organization [facility] Address [address], [place] [address] Care Team Providers Name Role Phone Allen Amaya MD Primary Care Provider [phone] Reason for Visit Reason Comments Medication Request Encounter Details Date Type Department Care Team Description 02/17/2012 Telephone Allen Tam Medicatio n Request Obstetrics/[place] [address] [address] [place] [address] [phone] (Wo rk) Social History Tobacco Use Types Packs/Day Years Used Date Smoking Tobacco: Never Assessed Sex Assigned at Date Recorded Not on file documented as of this encounter Nursing Notes Rosalva Pearson RN - 02/20/2012 12:17 PM CST Pt calling back, only minimal improvement. Tx call to Gen surg. Rosalva Pearson RN - 02/17/2012 10:15 AM CST Pt notified, given message from Dr. Amaya. She voices understanding and acceptance of this advice and will call back if any further questions or concerns. OR WIND INSTRUMENT REPAIRER Allen Amaya - 02/17/2012 9:07 AM CST Script for proctofoam HC faxed to pharmacy. Please notify patient. If this formulation is ineffective patient should schedule appt in surgery for consideration of removal. OR WIND INSTRUMENT REPAIRER Dangelo Bhavana L - 02/17/2012 8:37 AM CST Pt is having a lot of pain and discomfort with hemorrhoids that is making it difficult for her to sleep and just function. Rates 03/23. Pt has tried all of the otc creams etc, but not helping. documented in this encounter Plan of Treatment Not on filedocumented as of this encounter Visit Diagnoses Not on filedocumented in this encounter Care Teams Experimental Rocket Sled Mechanic Relationship Specialty Start Date End Date Allen Amaya MD PCP - General 02/12/12 02/01/13 [place] [address] documented as of this encounter
--- OUTSIDE RECORDS SUMMARY | 2022-03-23 17:33 | XMS_ITS | Encounter Summary ---
:1980 Author Organization [facility] [facility] Address [address], [place] [address] Care Team Providers Name Role Phone Allen Amaya MD Primary Care Provider Encounter Details Date Type Department Care Team Description [facility] [address] [place], [place] [id number] Social History Tobacco Use Types Packs/Day Years Used Date Smoking Tobacco: Never Assessed Sex Assigned at Date Recorded Not on file documented as of this encounter Plan of Treatment Not on filedocumented as of this encounter Visit Diagnoses Not on filedocumented in this encounter Care Teams Supervising Librarian Relationship Specialty Start Date End Date Allen Amaya MD PCP - General 02/12/12 02/01/13 [address] [place], [place] [id number] documented as of this encounter
--- OUTSIDE RECORDS SUMMARY | 2022-03-23 17:33 | XMS_ITS | Encounter Summary ---
:1980 Author Organization [facility] Address [address] [place] [address] Care Team Providers Name Role Phone Allen Amaya MD Primary Care Provider [phone] Encounter Details Date Type Department Care Team Description 03/11/2012 Lab Visit [facility] Screening for diabetes [address] [place] [address] Social History Tobacco Use Types Packs/Day Years Used Date Smoking Tobacco: Never Assessed Sex Assigned at Date Recorded Not on file documented as of this encounter Progress Notes Allen Amaya - 03/11/2012 11:48 AM PAGE DESIGNER Quick Note: Spoke with patient. Results normal. No GDM. No further testing indicated. documented in this encounter Miscellaneous Notes Miscellaneous - 05/24/2016 12:29 PM CSTNotes Recorded by Allen Amaya MD on 03/11/2012 at 11:48 AMSpoke with patient. Results normal. No GDM. No further testing indicated. DESIGNER documented in this encounter Plan of Treatment Not on filedocumented as of this encounter Procedures Procedure Name Priority Date/Time Associated Diagnosis Comme nts GTT 3 HR, Routine 03/11/2012 7:23 AM Screening for Res ults for this PAGE DESIGNER diabetes mellitus procedure are in the results section. documented in this encounter Results GTT 3 Hr, (03/11/2012 7:23 AM PAGE DESIGNER) P athologist Signature Glucose, 76 mg/dL HP CONVERSION Fasting Glucose, GTT - 122 mg/dL HP CONVERSION 1 Hour Glucose, GTT - 107 mg/dL HP CONVERSION 2 Hour Glucose, GTT - 90 mg/dL HP CONVERSION 3 Hour Comment: At least 2 of the following glucose valu es must be met or exceeded to diagnose Gestational Diabete s: Fasting 95 mg/dL 1 hour 180 mg/dL 2 hour 155 mg/dL 3 hour 140 mg/dL GT3 Interp (GT3 Int) see below HP CONVER LARISA Comment: Glucose data are non-diagnostic for Gestational Diabetes. Specimen Anatomical Collection Method Collection Time Receive d Time (Source) Location / / Volume Laterality 03/11/2012 7:23 AM 2 PAGE DESIGNER 10:10 AM PAGE DESIGNER Narrative HP CONVERSION - 03/11/2012 11:46 AM PAGE DESIGNER Performed at [facility], [address] [place] [address] Transcriptions 05/24/2016 12:29 PM CSTNotes Recorded by Allen Amaya MD on 03/11/2012 at 11:48 AMSpoke with patient. Results normal. No GDM. No further testing indicated. Allen Amaya MD LAB_1 Performing Organization Address City/State/ZIP Code Phon e Number HP CONVERSION documented in this encounter Visit Diagnoses Diagnosis Screening for diabetes mellitus documented in this encounter Care Teams Insurance Administrative Assistant Relationship Specialty Start Date End Date Allen Amaya MD PCP - General 02/12/12 02/01/13 [address] [place], [place] [id number] documented as of this encounter
--- OUTSIDE RECORDS SUMMARY | 2022-03-23 17:33 | XMS_ITS | Encounter Summary ---
:1980 [facility] Address [address], [place] [address] Care Team Providers Name Role Phone Mikala Best APRN, CNP Primary Care Provider [phone] Reason for Visit Reason Comments Rash Encounter Details Date Type Department Care Team Description 01/09/2012 Office Visit Radhika Huff, Eyelid derm atitis, Dermatology BONITA URBINA allergic/contact [address] [address] [place] (Primary Dx) [place] [address] [place], [place] [phone] (Wo rk) Social History Tobacco Use Types Packs/Day Years Used Date Smoking Tobacco: Never Assessed Sex Assigned at Date Recorded Not on file documented as of this encounter Progress Notes Radhika Caban APRN, CNP - 01/10/2012 7:06 AM CDT Clinic Visit SUBJECTIVE: Lacey is a 31 yo female who is in today with eyelid dermatitis. This started about 2 months ago. She hasn't used any new products. She did stop using eyeshadow when this started.She does wear gel nails but has been using these for a while. No new animals in the household. No previous history of skin issues. No seasonal allergy history or asthma. Notes with this that her acne is much better. Social History: . Expecting baby #2, which is a boy. She has a daughter at home. Adverse Drug Reactions: Reviewed and Updated Medications: Reviewed and Updated OBJECTIVE: This is a well developed, well nourished female who is alert and oriented. Skin examination shows slight redness on the upper eyelids bilaterally but the right is worse than the left. Some lower lid edema is noted. ASSESSMENT: Eyelid dermatitis PLAN: I did discuss possible irritants such as fingernail south african, eyeshadows, anti aging creams etc.She will remove nails and refrain from the use of eye make up. She was given Desonide cream to applybid. If no resolution and continued symptoms, would suggest patch testing after is ended. Impression: Eyelid dermatitis *[id number] documented in this encounter Plan of Treatment Not on filedocumented as of this encounter Visit Diagnoses Diagnosis Eyelid dermatitis, allergic/contact - Pr imary Contact and allergic dermatitis of eyeli d documented in this encounter Care Teams Manager Mechanical Maintenance Relationship Specialty Start Date End Date Mikala Best, CARLITOS, TECHNICAL SERVICES REP PCP - General 07/16/10 02/11/12 [address] [place] [place] [address] documented as of this encounter
--- OUTSIDE RECORDS SUMMARY | 2022-03-23 17:33 | XMS_ITS | Encounter Summary ---
:1980 Author [facility] Address [address] [address] Care Team Providers Name Role Phone Mikala Best APRN, CNP Primary Care Provider [phone] Reason for Visit Reason Comments Sinusitis Encounter Details Date Type Department Care Team Description 12/25/2011 Hospital Encounter [facility] Norman Rosas MD Acute sinusitis Care [address] [place] [phone] Social History Tobacco Use Types Packs/Day Years Used Date Smoking Tobacco: Never Assessed Sex Assigned at Date Recorded Not on file documented as of this encounter Last Filed Vital Signs Vital Sign Reading Time Taken Comments Blood Pressure 101/68 12/25/2011 12:23 PM CDT Pulse 85 12/25/2011 12:23 PM CDT Temperature 37 ??C (98.6 ??F) 12/25/2011 12:23 PM CDT Respiratory Rate 16 12/25/2011 12:23 PM CDT Oxygen Saturation - - Inhaled Oxygen [...] hours Nov 18, 2011 3:18 PM prn documented as of this encounter ED Notes Norman Rosas MD - 12/25/2011 1:11 PM CDT ED Provider Notes signed by Norman Rosas MD at 12/26/111446 Author: Norman Rosas MD Service: (none) Author Type: Physician Filed: 12/26/11 1447 Note Time: 12/25/11 1311 Status: Signed Manufacturing Engineer Assembly: Norman Rosas MD (Physician) NAME: SHAMIR NOLASCO MR#: [id number] CSN: [id number] AUTHENTICATING CLINICIAN: Norman Rosas MD CONFIRM #: [id number] LOC: 520 URGENT CARE PROGRESS NOTE DATE OF VISIT: 12/25/2011 : 1980 CHIEF COMPLAINT: Sinus problems. HPI: The patient is a 31-year-old female who complains of a 2-week history of an upper respiratory infection with nasal congestion, rhinorrhea and increasing facial pain. She has had persistent posterior nasal drainage, as well as some purulent nasal discharge. She has had no associated fever. She has developed a slight cough. She has not been using any decongestants as she is currently at 21 weeks and unsure of what she can take. She has had problems with sinus infections in the past. PAST MEDICAL HISTORY: As reviewed in [facility]. MEDICATIONS: As reviewed in [facility]. ALLERGIES: As reviewed in [facility]. REVIEW OF SYSTEMS: As per HPI. All other systems are negative. PHYSICAL EXAMINATION: The patient is alert and resting quietly. She does not appear acutely uncomfortable. She is afebrile. Vital signs are normal. Her tympanic membranes are clear bilaterally. Nose is congested without purulent discharge. Mouth ismoist. Pharynx is clear. Sinuses are tender to percussion over both maxillary and frontal sinuses. NECK: Supple without adenopathy. LUNGS: Clear with good breath sounds bilaterally. SKIN: Shows no rash. DISCHARGE INSTRUCTIONS: 1. Decongestant therapy with Afrin nasal spray b.i.d. for 3-4 days only and/or Sudafed as needed. The patient was also given a prescription for Flonase nasal spray to be used on a daily basis. 2. Saline nasal rinses as tolerated. 3. The patient was given a prescription for Augmentin 875 mg tablets to be taken b.i.d. for 10 days if symptoms are not improving in the next 5-7 days with the above regimen. 4. Followup with primary care provider for persistent symptoms. FINAL DIAGNOSIS: Acute sinusitis. PRL:MEDQ C: CONFIRM #: [id number] documented in this encounter Miscellaneous Notes Medication History - Eloy Vernon MD - 12/25/2011 12:51 PM CDT INPATIENT MEDS Encounter Date: 12/25/11 amoxicillin-clavulanate (AUGMENTIN) 875-125 mg per tablet Start Date:12/25/11, End Date:01/04/12, Frequency:2 TIMES DAILY *No Administrations Recorded fluticasone (FLONASE) 50 mcg/actuation nasal spray Start Date:12/25/11, End Date:01/09/12, Frequency:DAILY *No Administrations Recorded documented in this encounter Plan of Treatment Not on filedocumented as of this encounter Visit Diagnoses Diagnosis Acute sinusitis Acute sinusitis, unspecified Triage Assessment Note - Nettie Smith RN - 12/25/2011 12:22 PM CDT facial pain et pressure for a few wks. documented in this encounter Care Teams Business Center Attendant Relationship Specialty Start Date End Date Mikala Best APRN, COTTON GRADER PCP - General 07/16/10 02/11/12 [address] [address] [place] [id number] documented as of this encounter
--- OUTSIDE RECORDS SUMMARY | 2022-03-23 17:33 | XMS_ITS | Encounter Summary ---
:1980 Author Organization [employer] Address [address] [place] [address] Care Team Providers Name Role Phone Allen Amaya MD Primary Care Provider Encounter Details Date Type Department Care Team Description 03/02/2012 Notes/Orders [facility] Allen Amaya Other known or 3931 Maternal MD Kiran suspected Medicine Ultrasound [address] abnormality, not 39[address] [facility] [place] [address] elsewhere classified, S. affecting management [place], [place] o f mother, antepartum [address] condition or [phone] complication Social History Tobacco Use Types Packs/Day Years Used Date Smoking Tobacco: Never Assessed Sex Assigned at Date Recorded Not on file documented as of this encounter Progress Notes Allen Amaya - 04/02/2012 9:20 AM EQUIPMENT SUPERINTENDENT Quick Note: Reviewed. Will discuss at next visit. No immediate change in care required. documented in this encounter Miscellaneous Notes Miscellaneous - 05/24/2016 11:45 AM CSTNotes Recorded by Allen Amaya MD on 04/02/2012 at 9:20 AMReviewed. Will discuss at next visit. No immediate change in care required. PMENT SUPERINTENDENT documented in this encounter Plan of Treatment Not on filedocumented as of this encounter Procedures Procedure Name Priority Date/Time Associated Diagnosis Comme nts MFM US ECHO Routine 04/01/2012 1:20 PM Other known or Re sults for this F/U, OB US F/U EQUIPMENT SUPERINTENDENT suspected procedure are in abnormality, not the results elsewhere classified, sectio n. affecting management of mother, antepartum condition or complication documented in this encounter Results Bertha US Echo F/U, OB US F/U (04/01/2012 1:20 PM EQUIPMENT SUPERINTENDENT) Anatomical Region Laterality Modality Pelvis Other Specimen (Source) Anatomical Location Collection Method / Collectio n Time Received Time / Laterality Volume Impressions 04/01/2012 3:42 PM EQUIPMENT SUPERINTENDENT 1. Intrauterine at 35 2/7 week s gestation 2. Normal interval growth. ??EFW 81 %ile . ??AC 77 %ile 3. Normal amniotic fluid level and Doppl er study. 4. ??No gross abnormalities noted on fet al echocardiogram. ??Views limited by ?? position. ?? The results of the echocardiogram were discussed with Shamir. ?? Overall, ?? imagine has been normal, and this is simone y reassuring. ? echocardiograms ?? can not rule out some ventricular septal defects, persistent patent ductus ?? arteriosus, atrial septal defect, some a bnormalities of systemic and pulmonary ?? venous return, coarctation of the aorta, and minor valve abnormalities. ?? Routine evaluation is indicated . ??Return to primary provider for ?? continued care. ??No further ul trasounds are necessary for the present ?? indication. Further ultrasound studies a s clinically indicated. ?? Thank you for allowing us to be a part o f your patient's care. ?? Artur Kitchen MD <Electronic Signature> ??04/01/2012 03:4 2pm Narrative 04/01/2012 3:42 PM EQUIPMENT SUPERINTENDENT ? [facility] ?[facility] ? [address] ?[address] ? [place], [place] ??[address] ? Phone: ? Pat. Name: SHAMIR NOLASCO ? Study Date: ?? 04/01/2012 ?? 12:54pm Pat. No: ?? [id number] ?Referring MD: Nikole Dalton RACE STARTER ?? 1346 LMP: ? 07/29/2011 ?Collateral Specialist: ??Michelle Fox, RDM GA by LMP: 35w2d ? , Age: ? 1980, 32 GA by 1st: 35w2d ? Pregnancies: ?? 2, Para 1001 GA by US: ??36w0d ? GA Selected: ??35w2d (LMP) Hist/Ind: ??Thick Nuchal Translucency (5 .7 mm) ? Normal ??CVS - 46 XY ? Follow-up Echocard iogram and Growth ? MARIANO: ?05/04/2012 MEASUREMENTS & AGE ? GROWTH EVALUATION Measurement ??GA ? Range ? So urce ?? % ?? 35w2d ??Ratios ----- ------- ?? BPD ??9.1 cm 37w0d (83x6n-07y4m) Hadlock ??BPD ??74% ?? FL/BPD 0.75 (0.71 - 0.87) HC ??32.6 cm 37w0d (74m4r-31g5a) Hadlock ??HC ?? 78% ?? FL/AC ??0.21 (0.20 - 0.24) AC ??33.2 cm 37w1d (34t1o-22w6e) Hadlock ??AC ?? 77% ?? HC/AC ??0.98 (0.93 - 1.12) FL ?? 6.9 cm 35w3d (70f2f-19p2r) Hadlock ??FL ?? 51% ?? CI ? 0.81 (0.70 - 0.86) HL ?? 6.0 cm 34w3d (12f3z-01i0k) Rochelle ?? HL ?? 36% GA for sonogram 36w0d (42b2c-55z0i) ? Weight Estimate: based on (BPD,HC,AC,FL) Hadlock ?Weight: 2998 gm (2182-4967) Hadlock ? : 6lbs, 9oz ? Normal: 2496 gm (7709-8308) Diogenes ? Wt% ? 81% for 35.3 wks Amniotic Fluid Index: 15.3cm (07.8-24.9) DOPPLER Umbilical - Mid Cord ? S/D ??2.08 (2.03 - 3.41) ? RI ?? 0.52 (0.51 - 0.71) ? CLINICAL SUMMARY A Follow-up Ultrasound for Growth and Re peat Echocardiogram were done. TYPE OF GESTATION: ??Mckeon PRESENTATION OF FETUS: Vertex PLACENTAL LOCATION: ??Anterior AMNIOTIC FLUID VOLUME: Is within the nor mal limits MOTION: ??Was visualized and appea rs normal HEART: ?? heart motion was do cumented at a normal rate and rhythm STOMACH: The stomach was visualize d and [...] up through the outflow tracts were ?? not seen today. ?? The inferior and superior vena cavae drain into the right atrium in the ?? normal fashion. ? The ductal arch appears normal. ?? The aortic arch appears normal. ? There is no evidence of pericardial effusion. ?? Color flow doppler was utilized to d ocument normal blood flow across the AV ?? valves. ?? At least one pulmonary vein drains i nto the left atrium. COMMENTS: ??The heart was difficul t to see due to late gestational age ?? and position. Procedure Note Artur Kitchen MD - 12/11/2015Forma tting of this note might be different from the original. [address] [place] [address] Fax: Pat. Name: SHAMIR NOLASCO Study Date: 04/01/2012 12:54pm Pat. No: [id number] Referring MD: Nikole Dlaton NP 1346 LMP: 07/29/2011 Collateral Specialist: LADI Ramires GA by LMP: 35w2d , Age: 10 1980, [age] GA by 1st: 35w2d Pregnancies: 2, Para 1001 GA by US: 36w0d GA Selected: 35w2d (LMP) Hist/Ind: Thick Nuchal Translucency (5.7 mm) Normal CVS - 46 XY Follow-up Echocardiogram and Grow th MARIANO: 05/04/2012 MEASUREMENTS & AGE GROWTH EV ALUATION Measurement GA Range Source % 35w2d Rati os ----- ------- BPD 9.1 cm 37w0d (55z1r-72b3v) Jannlock B PD 74% FL/BPD 0.75 (0.71 - 0.87) HC 32.6 cm 37w0d (48s4n-21v8w) Hadlock H C 78% FL/AC 0.21 (0.20 - 0.24) AC 33.2 cm 37w1d (65s4w-33u7k) Hadlock A C 77% HC/AC 0.98 (0.93 - 1.12) FL 6.9 cm 35w3d (39b1p-39i4b) Hadlock FL 51% CI 0.81 (0.70 - 0.86) HL 6.0 cm 34w3d (69k2w-20x7j) Rochelle HL 36% GA for sonogram 36w0d (72z1g-28x5y) Feta l Weight Estimate: based on (BPD,HC,AC,FL) Hadlock Weight: 2998 gm (5088-7945) Hadlock : 6lbs, 9oz Normal: 2496 gm (9376-6156) Diogenes Wt% 81% for 35.3 wks Amniotic Fluid Index: 15.3cm (07.8-24.9) DOPPLER Umbilical - Mid Cord S/D 2.08 (2.03 - 3.41) RI 0.52 (0.51 - 0.71) CLINICAL SUMMARY A Follow-up Ultrasound for Growth and Re peat Echocardiogram were done. TYPE OF GESTATION: Mckeon PRESENTATION OF FETUS: Vertex PLACENTAL LOCATION: Anterior AMNIOTIC FLUID VOLUME: Is within the nor mal limits MOTION: Was visualized and appears normal HEART: heart motion was docu mented at a normal rate and rhythm STOMACH: The stomach was visualize d and [...] ventricles up through the outflow tracts were not seen today. The inferior and superior vena cavae dr ain into the right atrium in the normal fashion. The ductal arch appears normal. The aortic arch appears normal. There is no evidence of pericardial eff usion. Color flow doppler was utilized to docu ment normal blood flow across the AV valves. At least one pulmonary vein drains into the left atrium. COMMENTS: The heart was difficult to see due to late gestational age and position. IMPRESSION 1. Intrauterine at 35 2/7 week s gestation 2. Normal interval growth. EFW 81 %ile. AC 77 %ile 3. Normal amniotic fluid level and Doppl er study. 4. No gross abnormalities noted on echocardiogram. Views limited by position. The results of the echocardiogram were discussed with Shamir. Overall, imagine has been normal, and this is simone y reassuring. echocardiograms can not rule out some ventricular septal defects, persistent patent ductus arteriosus, atrial septal defect, some a bnormalities of systemic and pulmonary venous return, coarctation of the aorta, and minor valve abnormalities. Routine evaluation is indicated . Return to primary provider for continued care. No further ultr asounds are necessary for the present indication. Further ultrasound studies a s clinically indicated. Thank you for allowing us to be a part o f your patient's care. Artur Kitchen MD <Electronic Signature> 04/01/2012 03:42p m Transcriptions Artur Kitchen MD - 05/24/2016 11:4 5 AM CSTNotes Recorded by Allen Amaya MD on 04/02/2012 at 9:20 AMRlolisiewed. Will discuss at next visit. No immediate change in care required. Allen Amaya MD RAD BERTHA US documented in this encounter Visit Diagnoses Diagnosis Other known or suspected abnormali ty, not elsewhere classified, affecting management of mother, antepartum conditi on or complication documented in this encounter Care Teams Screen Printing Machine Operator Helper Relationship Specialty Start Date End Date Allen Amaya MD PCP - General 02/12/12 02/01/13 [address] [place] [address] documented as of this encounter
--- OUTSIDE RECORDS SUMMARY | 2022-03-23 17:33 | XMS_ITS | Encounter Summary ---
:1980 Author Organization [facility] Address [address], [place] [address] Care Team Providers Name Role Phone Gilles Bestmacario URBINA, BONITA Primary Care Provider [phone] Reason for Visit Reason Comments Genetic Counseling Encounter Details Date Type Department Care Team Description 10/24/2011 Office Visit Specialty Center 3931 Michelle Huizar Abnor mal findings on Maternal Medic ine screening 3931 [facility] (Primary Dx) [place] [address] Social History Tobacco Use Types Packs/Day Years Used Date Smoking Tobacco: Never Assessed Sex Assigned at Date Recorded Not on file documented as of this encounter Progress Notes Michelle Huizar - 10/24/2011 2:13 PM CDT Clinic Genetic Consultation Summary Counselor: Michelle Huizar Supervising Physician: Dr. Iverson Subjective Evaluation requested by: Dr. Kitchen Pt : 1980 Partner's name:Sean Reason for consult: Abnormal nuchal fold measurement History: Gestational Age: 12+3 Determined by: ultrasound P:1 EDC: 05/04/2012 Risk Assessment: The patient will be 32 years at delivery. The age-related risk of Down syndrome: . The patient had first trimester screening in which the nuchal fold is thickened; it increases this risk to 50%. The age-related risk of numeric chromosome abnormality:1465 Other risks identified due to exposures, maternal illness or family history: No specific increased risk on three generation pedigree. Pt denies exposures/illnesses which would increase the risk to the . Discussion Summary: 1. We reviewed the concepts of genes, chromosomes and non-disjunction. The clinical features and natural history of age related aneuploidies was reviewed. 2. Multiple screening tests are available to determine if the risk for chromosome abnormalities in the is higher or lower. First trimester screening utilizes ultrasound measurements of nuchalthickness and presence of nasal bone in conjunction with laboratory testing to determine a revised risk assessment for Trisomy 21 and 13/18. This testing does not provide assessment for risk of neural tube defects and so patients who opt for this screening need an AFP only test at 16-18 weeks. The patient's ultrasound today showed thickening of the nuchal fold to 5.7 mm and the nasal bone could not be measured due to position. This nuchal measurement is above the 95% tile for thegestational age of 12+2 weeks gestation. I explained the normal values and how they overlap with values in pregnancies where the baby has Down syndrome. This increased measurement increases the risk for Down syndrome to at least 50%. The chance may increase further based on blood testing results. A thickened nuchal fold may also be a marker for heart defect or other abnormality which may lead to demise. Second trimester level two ultrasound is available to assess for major defects and also evaluates for minor signs which may increase the risk for a chromosome problem such as Down Syndrome. This is optimally performed at 18-22 weeks gestation. A normal ultrasound does not rule out a chromosome problem, as only 30-50% of babies with Down Syndrome would have an abnormality that we would be able to see on ultrasound. 3. Diagnostic testing available includes Chorionic Villus sampling (CVS) in the first trimester. This is available at 10-12 weeks gestation and has a procedure risk of approximately 1% to cause a miscarriage. There is also a 2-4% risk for results of uncertain significance which could require follow upwith amniocentesis. Diagnostic testing available in the second trimester includes amniocentesis. These tests detect greater than 99% of chromosome problems in the . The risk for miscarriage following amniocentesis is estimated to be less than 0.5% above baseline risk. Options available to the patient if the baby was found to have a chromosome problem were discussed. Patients cite multiple reasons for testing such as reassurance, preparation, management decisions and elective interruption of affected pregnancies. Assessment: Pt is of advanced maternal age. She had an increased risk for Down syndrome due to increased nuchal fold of 5.7 mm. This is greater than the 95%. Plan: 1. Patient verbalized understanding of the information and had no further questions. 2. Pt elected to proceed with CVS today. We reviewed the consent form and aftercare instructions. She elects preliminary results available through [facility]. I will call her with these results as soon as available, likely after 1 pm tomorrow. 4. I provided the patient my card and encouraged them to call with questions or concerns. Total Time: 20 minutes Michelle Huizar [facility] Genetic Counselor documented in this encounter Plan of Treatment Not on filedocumented as of this encounter Visit Diagnoses Diagnosis Abnormal findings on screening - Primary documented in this encounter Care Teams Insulation Cutter Relationship Specialty Start Date End Date Mikala Best APRN, MACHINE SOLE LEVELER PCP - General 07/16/10 02/11/12 [address] [address] documented as of this encounter
--- OUTSIDE RECORDS SUMMARY | 2022-03-23 17:33 | XMS_ITS | Encounter Summary ---
:1980 Author Organization [facility] Address [address] [place] [address] Care Team Providers Name Role Phone Allen Amaya MD Primary Care Provider [phone] Reason for Visit Reason Comments LAB RESULTS Encounter Details Date Type Department Care Team Description 03/06/2012 Telephone CornwallAllen Yost, LAB RESULTS Obstetrics/Gynecolog y [address] [facility] [address] [place] [address] [place] [address] (Wo rk) Social History Tobacco Use Types Packs/Day Years Used Date Smoking Tobacco: Never Assessed Sex Assigned at Date Recorded Not on file documented as of this encounter Nursing Notes Bhavana Pierson - 03/06/2012 2:11 PM CST Pt calling for 1 hr gtt. Informed that she needs 3 hr gtt. Ordered per standing orders. Warm transfer to lab to schedule. Informed pt that she needs to be fasting. Pt verbalized understanding. documented in this encounter Plan of Treatment Not on filedocumented as of this encounter Visit Diagnoses Diagnosis Screening for diabetes mellitus - Primar y documented in this encounter Care Teams Section Laborer Relationship Specialty Start Date End Date Allen Amaya MD PCP - General 02/12/12 02/01/13 [address] [place], [place] [address] documented as of this encounter
--- OUTSIDE RECORDS SUMMARY | 2022-03-23 17:33 | XMS_ITS | Encounter Summary ---
:1980 Author [facility] Address [address] [address] Care Team Providers Name Role Phone Bevjenny Mikala URBINA, BONITA Primary Care Provider [phone] Reason for Visit Reason Comments Headache Encounter Details Date Type Department Care Team Description 10/30/2011 Telephone Allen Tam Hea dache Obstetrics/Gynecolog y [address] [facility] [address] [place] [address] [place] [address] [phone] (Wo rk) Social History Tobacco Use Types Packs/Day Years Used Date Smoking Tobacco: Never Assessed Sex Assigned at Date Recorded Not on file documented as of this encounter Nursing Notes David Sifuentes MD - 10/30/2011 1:36 PM CDT Addended by: DAVID SIFUENTES on: 10/30/2011 Modules accepted: Orders David Sifuentes MD - 10/30/2011 1:36 PM CDT Rx written for Vicodin #20, no refills, as requested by Dr. Amaya. Dr. Sifuentes Allen Amaya - 10/30/2011 1:33 PM CDT Returned call and left message. Trial of vicodin recommended next. May require Neuro consultation iof migraines persist.. Have asked Dr. 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 Patient advised to use vicodin judiciously. Angeline Siddiqui - 10/30/2011 12:57 PM CDT Pt. calling with c/o migraine headaches that are not responding to the Fioricet she was Rx'd on 10/21. States she is having a difficult time functioning. Asking if there is something stronger she can take. Pharmacy info is utd. Please advise. She can be reached at [phone]. documented in this encounter Plan of Treatment Not on filedocumented as of this encounter Visit Diagnoses Diagnosis Headache in - Primary Other specified complication of pregnanc y, unspecified as to episode of care documented in this encounter Care Teams Cnc Operator Relationship Specialty Start Date End Date Mikala Best APRN, PORT CDL A DRIVER PCP - General 07/16/10 02/11/[address] [place] [address] documented as of this encounter
--- OUTSIDE RECORDS SUMMARY | 2022-03-23 17:33 | XMS_ITS | Encounter Summary ---
:1980 Author Organization [facility] Address [address], [place] [address] Care Team Providers Name Role Phone Allen Amaya MD Primary Care Provider [phone] Reason for Visit Reason Comments Routine Visit Encounter Details Date Type Department Care Team Description 03/11/2012 Routine [place] Allen Amaya Obstetrics/Gynecolo MD Kiran Visit gy [address] [address] [place], [place] [address] [address] [place], [place] [phone] (Wo rk) [address] [phone] Social History Tobacco Use Types Packs/Day Years Used Date Smoking Tobacco: Never Assessed Sex Assigned at Date Recorded Not on file documented as of this encounter Last Filed Vital Signs Vital Sign Reading Time Taken Comments Blood Pressure 111/69 03/11/2012 7:46 AM SUPERVISOR INSTANT POTATO PROCESSING Pulse 98 03/11/2012 7:46 AM SUPERVISOR INSTANT POTATO PROCESSING Temperature - - Respiratory Rate - - Oxygen Saturation - - Inhaled Oxygen Concentration - - Weight 90.9 kg (200 lb 6.4 oz) 03/11/2012 7:46 AM SUPERVISOR INSTANT POTATO PROCESSING Height - - Body Mass Index 33.35 09/23/2011 7:48 AM CDT documented in this encounter Progress Notes Allen Amaya - 03/11/2012 8:07 AM CST Baby active. Back pain continues to be an issue. GTT today. Has follow up 04/01/12. Discussed use of narcotics in - safe but should be minimized. RTC 2 weeks. documented in this encounter Plan of Treatment Not on filedocumented as of this encounter Visit Diagnoses Diagnosis Supervision of normal subsequent pregnan cy - Primary Supervision of other normal documented in this encounter Care Teams Manager Operations Relationship Specialty Start Date End Date Allen Amaya MD PCP - General 02/12/12 02/01/13 [address] [place] [address] documented as of this encounter
--- OUTSIDE RECORDS SUMMARY | 2022-03-23 17:33 | XMS_ITS | Encounter Summary ---
:1980 Author Organization [facility] Address [address] [address] Care Team Providers Name Role Phone Bevjenny Mikala URBINA CNP Primary Care Provider [phone] Reason for Visit Reason Comments LAB RESULTS Encounter Details Date Type Department Care Team Description 10/28/2011 Telephone Specialty Center 3931 Gordon Cheng CGC LAB RESULTS Maternal Medic ine 3931 [facility] [address] [place] [address] [place], [place] [address] [phone] Social History Tobacco Use Types Packs/Day Years Used Date Smoking Tobacco: Never Assessed Sex Assigned at Date Recorded Not on file documented as of this encounter Nursing Notes Danyelle Simeon CGC - 10/28/2011 6:53 PM CDT I called Lacey with normal FISH results from her CVS 10/24/11. No evidence of Down syndrome, trisomy 13 or 18. Fetus is male XY and she is aware. We will wait for final karyotype in the next 7 days; I told her we might have a verbal report by Friday. Will also plan Level II ultrasound due to 5.7mm NT. Patient requests 16 week complete ultrasound in to re-evaluate nuchal thickness Bill let her know I would ask the perinatologist about this. documented in this encounter Plan of Treatment Not on filedocumented as of this encounter Visit Diagnoses Not on filedocumented in this encounter Care Teams Hotel Custodian Relationship Specialty Start Date End Date Mikala Best APRN, IRRIGATION FLUME LAYER PCP - General 07/16/10 02/11/12 [address] [place] [address] documented as of this encounter
--- OUTSIDE RECORDS SUMMARY | 2022-03-23 17:33 | XMS_ITS | Encounter Summary ---
:1980 Author Organization [facility] Address [address] [place] [address] Care Team Providers Name Role Phone Mikala Best APRN, CNP Primary Care Provider [phone] Encounter Details Date Type Department Care Team Description 02/11/2012 Lab Visit [facility] Screening for diabetes thomas contreras; [address] [facility] Screening [place] [address] Social History Tobacco Use Types Packs/Day Years Used Date Smoking Tobacco: Never Assessed Sex Assigned at Date Recorded Not on file documented as of this encounter Plan of Treatment Not on filedocumented as of this encounter Procedures Procedure Name Priority Date/Time Associated Comments Diagnosis HEMOGLOBIN OB Routine 02/11/2012 2:32 PM Screening for iron Re sults for this CDT deficiency anemia procedure are in the results section. GLUCOSE - 1 HR. P.C. Routine 02/11/2012 2:32 PM Screening for Results for this PREG CDT diabetes mellitus procedure are in the results section. documented in this encounter Results HEMOGLOBIN OB (02/11/2012 2:32 PM CDT) P athologist Signature OB Hemoglobin 10.7 gm/dL HP CONVERSION Comment: Reference Ranges Gestational Hemoglobin level measured in gm/dL First Trimester (Week 12) ?? 11.0-13.4 Second Trimester (Week 20) ??10.5-12.7 Third Trimester (Week 32) ?? 11.0-13.2 From MMWR 1989;38(22):400-4 Specimen Anatomical Collection Method Collection Time Receive d Time (Source) Location / / Volume Laterality 02/11/2012 2:32 PM 2 2:32 CDT PM CDT Narrative HP CONVERSION - 02/11/2012 2:46 PM CDT Performed at [facility], [address] [place] [address] Allen Amaya MD LAB_[address]forming [address] [facility] Phon e Number HP CONVERSION Glucose - 1 Hr. P.C. Preg (02/11/2012 2:32 PM CDT) P athologist Signature Glucose 135 40 - 139 HP CONVERSION [place] mg/dL Screen Specimen Anatomical Collection Method Collection Time Receive d Time (Source) Location / / Volume Laterality 02/11/2012 2:32 PM 2 2:32 CDT PM CDT Narrative HP CONVERSION - 02/11/2012 3:47 PM CDT Performed at [facility], [address] [place] [address] Allen Amaya MD LAB_1 Performing Organization Address [facility] Phon e Number HP CONVERSION documented in this encounter Visit Diagnoses Diagnosis Screening for diabetes mellitus Screening for iron deficiency anemia documented in this encounter Care Teams Muleser Relationship Specialty Start Date End Date Mikala Best APRN, [place] PIPE MANUFACTURING SUPERVISOR PCP - General 07/16/10 02/11/[address] [place] [address] [place] [address] documented as of this encounter
--- OUTSIDE RECORDS SUMMARY | 2022-03-23 17:33 | XMS_ITS | Encounter Summary ---
:1980 Author Organization Count includes the [facility] Address [address], [place] [address] Care Team Providers Name Role Phone Mikala Best APRN, CNP Primary Care Provider [phone] Reason for Visit Reason Comments LAB RESULTS Encounter Details Date Type Department Care Team Description 11/04/2011 Telephone Specialty Center 3931 Maternal Michelle Kim LAB RESULTS Medicine [address] [place] [address] Social History Tobacco Use Types Packs/Day Years Used Date Smoking Tobacco: Never Assessed Sex Assigned at Date Recorded Not on file documented as of this encounter Nursing Notes Michelle Huizar - 11/04/2011 9:04 AM CDT Left message per patient request as cell phone was dying and she is in the hospital. Relayed that final chromosome results are normal, no evidence of Down syndrome nor trisomies 13 or 18. I left my phone no to call with any questions. DB documented in this encounter Plan of Treatment Not on filedocumented as of this encounter Visit Diagnoses Not on filedocumented in this encounter Care Teams Tombstone Polisher Relationship Specialty Start Date End Date Mikala Best APRN, CNP PCP - General 07/16/10 02/11/12 [address] [address] documented as of this encounter
--- OUTSIDE RECORDS SUMMARY | 2022-03-23 17:33 | XMS_ITS | Encounter Summary ---
:1980 Author Organization [facility] Address [address], [place] [address] Care Team Providers Name Role Phone Mikala Best APRN, CNP Primary Care Provider [phone] Reason for Visit Reason Comments Routine Visit Encounter Details Date Type Department Care Team Description 01/16/2012 Routine [place] Allen Amaya ri Obstetrics/Gynecolo MD Kiran Visit gy [address] [facility] [address] [place], [place] [address] [address] [place], [place] [phone] (Wo rk) [address] [phone] Social History Tobacco Use Types Packs/Day Years Used Date Smoking Tobacco: Never Assessed Sex Assigned at Date Recorded Not on file documented as of this encounter Last Filed Vital Signs Vital Sign Reading Time Taken Comments Blood Pressure 98/60 01/16/2012 7:05 AM CDT Pulse - - Temperature - - Respiratory Rate - - Oxygen Saturation - - Inhaled Oxygen Concentration - - Weight 86.9 kg (191 lb 9.6 oz) 01/16/2012 7:05 AM CDT Height - - Body Mass Index 31.88 09/23/2011 7:48 AM CDT documented in this encounter Progress Notes Allen Amaya - 01/16/2012 7:23 AM CDT Episodes of dizziness. Baby active. No ctx. DMS/Hgb next visit. Remains anxious re increased nuchal fold despite reasurrances. RTC 4 weeks. documented in this encounter Plan of Treatment Not on filedocumented as of this encounter Visit Diagnoses Diagnosis Screening for diabetes mellitus Screening for iron deficiency anemia Supervision of normal subsequent pregnan cy Supervision of other normal documented in this encounter Care Teams Chuck Tender Relationship Specialty Start Date End Date Mikala Best APRN, DIRECTOR OF CULTURE PCP - General 07/16/10 02/11/12 [address] [address] documented as of this encounter
--- OUTSIDE RECORDS SUMMARY | 2022-03-23 17:33 | XMS_ITS | Encounter Summary ---
:1980 Author Organization [facility] Address [address] [place] [address] Care Team Providers Name Role Phone Bevjenny Mikala URBINA CNP Primary Care Provider [phone] Reason for Visit Reason Comments Other Encounter Details Date Type Department Care Team Description 10/23/2011 Office Visit Specialty Center [address] [facility] Known or suspected Maternal [address] [facility] S affecting management [address] [facility]. [place], [place] of mother (Primary S. [address] Dx) [place] [address] [phone] Social History Tobacco Use Types Packs/Day Years Used Date Smoking Tobacco: Never Assessed Sex Assigned at Date Recorded Not on file documented as of this encounter Progress Notes Danyelle Simeon, [facility] - 10/28/2011 12:10 PM CDT Clinic Genetic Counseling Visit Genetic Counselor: Danyelle Simeon MS. Supervising Physician: MD Issac Reason for consult: Increased nuchal translucency at 12 weeks. History: P: 1001. Risk Assessment: Lacey was seen in the clinic today at 12 weeks for first trimester screening. I met withher following her ultrasound that identified abnormal nuchal translucency of 5.7mm which is above the 99th percentile. I explained that based on this measurement there is an estimated 50% chance of an underlying chromosome abnormality for her fetus. There is also an increased risk for structural anatomy defects including cardiac defects. There is also an increased risk for demise. We alsoreviewed the scenario of increased nuchal translucency as a normal variant with normal outcome. Screening Options: She understands nuchal transluceny screening does not provide a definitive diagnostic answer, only arisk assessment. I reviewed option of non-invasive testing via blood draw for cell free DNA. This testing examines maternal blood for presence of extra chromosome material from chromosomes 21, 13 and 18. It has a reported 99% sensitivity. A normal result does not rule out these conditions definitively and does not allow for testing of other chromosomal or single gene conditions or syndromes. About 1% of the time, there is not enough DNA obtained and results are not reportable. At this time, an amniocentesis recommended to confirm an abnormal result. The cost of this testing including uncertainty of insurance coverage was explained Results typically take 8-10 business days. I reviewed capabilities and limitations of the level II ultrasound; this will be scheduled for 19-20weeks gestation. Approximately half of babies with Down syndrome and most babies with trisomies 13 and 18 have distinctive features noted on Level II ultrasound. The majority of major cardiac anomalies are identifiable on this ultrasound. This means that a normal level II ultrasound can reduce the risk for a chromosome problem but cannot eliminate it. Diagnostic Testing: I did explain that CVS or amniocentesis is available to diagnose or exclude a chromosome abnormalitywith greater than 99% accuracy. CVS time range is 10-12 weeks and so this testing would have to be done in the next day or two. Amniocentesis can be performed anytime after 15 weeks. The risk of miscarriage secondary to the procedures was explained to be no greater than 0.5% above her baseline risk. There is also the minimal risk of injury, leakage, and infection. We discussed options available should a baby be affected with a chromosome abnormality. She was madeaware of the benefits of having information from diagnostic testing including preparation, reassurance, management decisions, elective interruption. Family History: See pedigree obtained 10/23/11. She and her have a six year old daughter in good health. No family history risk factors relevant to the current were identified. Teratogenic Exposures: None Carrier Screening: The patient and her are Cacasian; due to serious nature of today's ultrasound findings and length of time available, we did not review review cystic fibrosis carrier screening. ASSESSMENT: Genetic Counseling with specific concerns for: Increased nuchal translucency at 12 weeks. PLAN: Lacey elects CVS at this time; she was scheduled to return tomorrow 10/24/11 for this procedure with Dr. Iverson. She has declined serum screening and non- invasive testing. She was given written information on the above ultrasound finding and available testing. MS-AFP and Level II ultrasound in dicated if chromosome are normal. Total time spent counseling the patient was 30 minutes. documented in this encounter Plan of Treatment Not on filedocumented as of this encounter Visit Diagnoses Diagnosis Known or suspected abnormality aff ecting management of mother - Primary Unspecified abnormality affecting management of mother, unspecified as to episode of care documented in this encounter Care Teams Safety Intern Relationship Specialty Start Date End Date Mikala Best APRN, MENTAL HEALTH PROGRAM SPECIALIST PCP - General 07/16/10 02/11/12 [address] [address] documented as of this encounter
--- OUTSIDE RECORDS SUMMARY | 2022-03-23 17:33 | XMS_ITS | Encounter Summary ---
:1980 Author Organization [facility] Address [address] [address] Care Team Providers Name Role Phone Allen Amaya MD Primary Care Provider [phone] Reason for Visit Reason Comments Concerns Encounter Details Date Type Department Care Team Description 02/25/2012 Telephone Allen Tam Concerns Obstetrics/Gynecolog y MD Kiran [address] [address] [place] [address] [phone] (Wo rk) Social History Tobacco Use Types Packs/Day Years Used Date Smoking Tobacco: Never Assessed Sex Assigned at Date Recorded Not on file documented as of this encounter Nursing Notes Bhavana Pierson - 02/25/2012 12:01 PM CST Pt wanted MD to know that went to the ER x 2 last weekend for kidney pain and constipation. Pt states she rec'd pain meds that are helping with the pain, and she is taking stool softners for the constipation. Reminded pt about the narcotics causing constipation. Pt states when she had the bm, tissue tore and it was so painful she almost called 911. The ER suggested f/u visit, but pt feels it is well controlled at this point so doesn't want an appt. She just wants the MD to know. Advised pt to call back if worsens, pt agrees. documented in this encounter Plan of Treatment Not on filedocumented as of this encounter Visit Diagnoses Not on filedocumented in this encounter Care Teams International Marketing Intern Relationship Specialty Start Date End Date Allen Amaya MD PCP - General 02/12/12 02/01/13 [address] [place] [address] documented as of this encounter
--- OUTSIDE RECORDS SUMMARY | 2022-03-23 17:34 | XMS_ITS | Encounter Summary ---
:1980 Author Organization [facility] Address [address] [place] [address] Care Team Providers Name Role Phone BevGilles alvaradomacario URBIAN CNP Primary Care Provider [phone] Reason for Visit Reason Comments Paperwork Encounter Details Date Type Department Care Team Description 10/08/2011 Telephone Sonja Cagle Paperw ork Obstetrics/Gynecolog y BONITA URBINA [address] [place] [address] [place] [address] (Wo rk) Social History Tobacco Use Types Packs/Day Years Used Date Smoking Tobacco: Never Assessed Sex Assigned at Date Recorded Not on file documented as of this encounter Nursing Notes Tasha Malin - 10/08/2011 2:26 PM CDT Proof of prepared and mailed to pt.'s home. Bhavana Pierson - 10/08/2011 8:55 AM CDT Pt would like a proof of with [employer] for her employer. Please mail to pt, address verified. documented in this encounter Plan of Treatment Not on filedocumented as of this encounter Visit Diagnoses Not on filedocumented in this encounter Care Teams Access Database Developer Relationship Specialty Start Date End Date Mikala Best APRN, JEWEL STAKER PCP - General 07/16/10 02/11/12 [address] [address] [place] [address] documented as of this encounter
--- OUTSIDE RECORDS SUMMARY | 2022-03-23 17:34 | XMS_ITS | Encounter Summary ---
:1980 Author Organization [facility] Address [address], [place] [address] Care Team Providers Name Role Phone Mikala Best APRN, BONITA Primary Care Provider [phone] Reason for Visit Reason Comments Pharyngitis Encounter Details Date Type Department Care Team Description 08/05/2011 Hospital Encounter [facility] Fariba Jeronimo A cute pharyngitis; Care MD Acute sinusitis, unspecified [address] [address] [phone] Social History Tobacco Use Types Packs/Day Years Used Date Smoking Tobacco: Never Assessed Sex Assigned at Date Recorded Not on file documented as of this encounter Last Filed Vital Signs Vital Sign Reading Time Taken Comments Blood Pressure 104/68 08/05/2011 8:12 AM CDT Pulse 72 08/05/2011 8:12 AM CDT Temperature 36.9 ??C (98.4 ??F) 08/05/2011 8:12 AM CDT Respiratory Rate 20 08/05/2011 8:12 AM CDT Oxygen Saturation - - Inhaled Oxygen Concentration - - Weight - - Height - - Body Mass Index - - documented in this encounter Medications at Time of Discharge Medication Sig Dispensed Refills Start Date End Date amoxicillin-clavulana Take 1 tablet by mouth 2 20 tablet 0 08/05/2011 08/15/2011 te (aka AUGMENTIN) times daily for 10 days. tablet tretinoin, Facial Apply topically. a pea 45 g 5 201109/23/2011 Wrinkles, (REFISSA) sized amount qhs; use a 0.05 % noncomedogenic creamIndications: moisturizer spf >30; do Acne vulgaris NOT use during . documented as of this encounter ED Notes Fariba Jeronimo MD - 08/05/2011 8:15 PM CDT ED Provider Notes signed by Fariba Jeronimo MD at 08/14/11 1970 Author: Fariba Jeronimo MD Service: (none) Author Type: Physician Filed: 08/14/11 0004 Note Time: 08/05/112014 Status: Signed Respiratory Care Practitioner: Fariba Jeronimo MD (Physician) NAME: SHAMIR NOLASCO MR#: [id number] CSN: [id number] AUTHENTICATING CLINICIAN: Fariba Jeronimo MD CONFIRM #: [id number] LOC: 520 URGENT CARE PROGRESS NOTE DATE OF VISIT: 08/05/2011 : 1980 CHIEF COMPLAINT: Sore throat, exposed to strep. HPI: This pleasant 31-year-old comes in today complaining of not feeling very well. She has had a sore throat for the past 3 days. She is nervous because her daughter does have strep throat. She has had a headache, a low-grade fever off and on. No runny nose or much of a cough. Does not have a rash. Her tonsils have been surgically removed, so she has not had strep in quite a long time. PAST MEDICAL HISTORY: Herpes, dysmenorrhea. PAST SURGICAL HISTORY: Reviewed through [facility]. MEDICATIONS: Reviewed through [facility]. ALLERGIES: To Ambien. OBJECTIVE: Temperature 98.4, pulse 72, respirations 20, blood pressure 104/68. Tympanic membranes with no sign of infection. Sinuses are tender in the maxillary region. Nares reveal swollen, erythematous turbinates. Oropharynx is pink and moist. There is some thick green postnasal drip. Tonsils are surgically absent, but there is some mild erythema in the posterior pharynx. LUNGS: Clear to auscultation bilaterally. HEART: Regular without murmurs, rubs, or gallops. ABDOMEN: Soft, nontender. EXTREMITIES: Without rash or cyanosis. Strep screen is negative. ASSESSMENT: Sinusitis. PLAN: Augmentin 875 one p.o. b.i.d. x10 days. Rest, fluids, ibuprofen and Tylenol. We will call the patient if the overnight strep culture is positive. Otherwise should do nasal saline rinses, and patient is in agreement with the plan. DONNAM:RAMIN C: CONFIRM #: [id number] Fariba Jeronimo MD - 08/05/2011 8:35 AM CDT This office note has been dictated. documented in this encounter Miscellaneous Notes Medication History - Eloy Vernon MD - 08/05/2011 8:36 AM CDT INPATIENT MEDS Encounter Date: 08/05/11 amoxicillin-clavulanate (AUGMENTIN) 875-125 mg per tablet Start Date:08/05/11, End Date:08/15/11, Frequency:2 TIMES DAILY *No Administrations Recorded documented in this encounter Plan of Treatment Not on filedocumented as of this encounter Procedures Procedure Name Priority Date/Time Associated Diagnosis Comme nts BETA STREP FOLLOWUP Routine 08/05/2011 9:48 AM Re sults for this CDT procedure are i n the results section. RAPID STREP SCREEN STAT 08/05/2011 8:15 AM Acute pharyngiti s Results for this WAIVED CDT procedure are i n the results section. documented in this encounter Results Beta Strep Followup (08/05/2011 9:48 AM CDT) [facility] Method Time Signature Strep Screen No beta HP CONVERSION hemolytic Strep Group A isolated. Comment: ? ORDERED BY: FERNANDA MORFIN SOURCE: Throat ? COLLECTED: ??08/05/11 09:48 ? PLATED: ? 08/05/11 09:48 Culture Strep, Follow up from Rapid Test ?? FINAL ? 08/06/11 07:23 No beta hemolytic Strep Group A isolate d. Specimen (Source) Anatomical Collection Method Collection Time Re ceived Time Location / / Volume Laterality Throat: 08/05/2011 9:48 AM CDT Fernanda Morfin PA-C LAB_1 Performing Organization Address City/State/ZIP Code Phon e Number HP CONVERSION Rapid Strep Screen Waived (08/05/2011 8:15 AM CDT) Component Value Ref Test Analysis Performed At [facility] Range Method Time Signature Rapid Strep Test performed HP CONVERSIO N Screen Waived by:gl Rapid Strep Negative for HP CONVERSION Screen Waived Streptococcus group A Comment: ? ORDERED BY: FERNANDA MORFIN SOURCE: Throat ? COLLECTED: ??08/05/11 08:15 ? PLATED: ? 08/05/11 09:48 Rapid Strep Screen Waived ?FINAL ? 08/05/11 09:48 ??Test performed by:gl ? Negative for Streptococcus group A Specimen (Source) Anatomical Collection Method Collection Time Re ceived Time Location / / Volume Laterality Throat: 08/05/2011 8:15 AM CDT Narrative HP CONVERSION - 08/05/2011 9:48 AM CDT Performed at [facility], [address] [place] [address] Fernanda Morfin PA-C LAB_1 Performing Organization Address City/State/ZIP Code Phon e Number HP CONVERSION documented in this encounter Visit Diagnoses Diagnosis Acute pharyngitis Acute sinusitis, unspecified documented in this encounter Care Teams Cant Gang Sawyer Relationship Specialty Start Date End Date Mikala Best APRN, DIRECTOR OF FINANCE PCP - General 07/16/10 02/11/12 [address] [address] [id number] documented as of this encounter
--- OUTSIDE RECORDS SUMMARY | 2022-03-23 17:34 | XMS_ITS | Encounter Summary ---
:1980 Author Organization [facility] Address [address] [place] [address] Care Team Providers Name Role Phone Mikala Best APRN, CNP Primary Care Provider [phone] Reason for Visit Reason Comments Appt. Needed Encounter Details Date Type Department Care Team Description 08/28/2011 Telephone Harriet Downey DO Appt. Needed Obstetrics/Gynecolog y [address] [facility] [address] [place] [address] [place] [address] [phone] Social History Tobacco Use Types Packs/Day Years Used Date Smoking Tobacco: Never Assessed Sex Assigned at Date Recorded Not on file documented as of this encounter Nursing Notes Bhavana Pierson - 08/28/2011 8:55 AM CDT Pt calling to make NOB appt. LMP 07-29-11. Scheduled. documented in this encounter Plan of Treatment Not on filedocumented as of this encounter Visit Diagnoses Not on filedocumented in this encounter Care Teams Technology Coach Relationship Specialty Start Date End Date Mikala Best APRN, CNP PCP - General 07/16/10 02/11/[address] [place] [address] documented as of this encounter
--- OUTSIDE RECORDS SUMMARY | 2022-03-23 17:34 | XMS_ITS | Encounter Summary ---
:1980 Author Organization [facility] Address [address] [place] [address] Care Team Providers Name Role Phone Mikala Best APRN, CNP Primary Care Provider [phone] Reason for Visit Reason Comments Test Request Encounter Details Date Type Department Care Team Description 07/18/2011 Telephone Allen Tam Tes t Request Obstetrics/Gynecolog y [address] [place] [address] [place] [address] [phone] (Wo rk) Social History Tobacco Use Types Packs/Day Years Used Date Smoking Tobacco: Never Assessed Sex Assigned at Date Recorded Not on file documented as of this encounter Nursing Notes Francia Herron - 07/18/2011 8:42 AM CDT Patient calling because she will be unable to do her progesterone lab this week as ordered. She willbe going on a trip for work. Discussed with patient waiting until next month to complete progesterone testing on Day 21. documented in this encounter Plan of Treatment Not on filedocumented as of this encounter Visit Diagnoses Not on filedocumented in this encounter Care Teams Technology Strategist Relationship Specialty Start Date End Date Mikala Best APRN, CNP PCP - General 07/16/10 02/11/[address] [place] [address] documented as of this encounter
--- OUTSIDE RECORDS SUMMARY | 2022-03-23 17:34 | XMS_ITS | Encounter Summary ---
:1980 [facility] Address [address], [place] [address] Care Team Providers Name Role Phone Bevjenny Mikala URBINA CNP Primary Care Provider [phone] Reason for Visit Reason Comments ACNE Encounter Details Date Type Department Care Team Description 07/19/2011 Office Visit [facility] Bisi Ulloa MD Acne vulgaris; [id number] [phone] [place] [address] (Wo rk) Social History Tobacco Use Types Packs/Day Years Used Date Smoking Tobacco: Never Assessed Sex Assigned at Date Recorded Not on file documented as of this encounter Progress Notes Bisi Ulloa MD - 07/19/2011 1:07 PM CDT Chief Complaint Patient presents with ??? Acne SUBJECTIVE : Lacey Nolasco is a 31 y.o. female who presents for f/u of acne. Currently on tretinoin 0.05% cream at bedtime and tolerating it well. No dryness. She has noticed significant improvement. She recently started clomid and noticed a mild flare with that. No other tx currently. Past Medical History Diagnosis Date ??? Cervical radiculopathy at C6 ??? Endometriosis ??? Acne vulgaris ??? DJD (degenerative joint disease) of cervical spine History Substance Use Topics ??? Smoking status: Never Smoker ??? Smokeless tobacco: Not on file ??? Alcohol Use: 0.0 - 0.6 oz/week 0-1 Glasses of wine per week Alcoholic Drinks/day: Amount:1-2 drinks; Freq:2-4/Month ; Current outpatient prescriptions Medication Sig Dispense Refill ??? clindamycin (CLEOCIN T) 1 % gel Apply topically 2 times daily. to acne prone areas. Use with otcbenzoyl peroxide to maintain effectiveness. 30 g 5 ??? clomiPHENE (CLOMID) 50 mg tablet Take 1 tablet by mouth daily (every 24 hours). take as directed5 tablet 0 ??? tretinoin (RETIN-A) 0.05 % cream Apply topically. a pea sized amount qhs; use a noncomedogenic moisturizer spf >30; do NOT use during . 45 g 5 ??? DISCONTD: tretinoin (RETIN-A) 0.05 % cream Apply topically. a pea sized amount every 3rd night; increase gradually to nightly as tolerated; use a noncomedogenic moisturizer spf >30 45 g 2 Allergies Allergen Reactions ??? Deejay Stoddard Blacks out REVIEW OF SYSTEMS : For pertinent, see HPI. No other skin concerns today. Pt is otherwise feeling well. OBJECTIVE : Gen.: Alert, cooperative in no acute distress. Well nourished, appropriately groomed. LMP 07/01/2011 Skin: Jackson skin type 3 Focused exam of face. Few superficial comedones and resolving erythematous papules, but mostly clear. Exam otherwise unremarkable. ASSESSMENT : 1. Acne vulgaris (706.1E) tretinoin (RETIN-A) 0.05 % cream, clindamycin (CLEOCIN T) 1 % gel 2. Scar (709.2J) PLAN : 1. Discussed which treatments would be safe for and that tretinoin is not safe to use in . She will stop the tretinoin immediately should she conceive. 2. Will start Clindamycin 1% gel. Risks and benefits of topical clindamycin were discussed includingirritation or lack of response. Patient was counseled to use on a once to twice a day basis. We discussed that efficacy and duration of action are increased with concurrent use of benzoyl peroxide products. 3. She will also slowly start Benzyl peroxide 4-5% wash. Risks and benefits of benzyl peroxide including irritation, drying, and possible bleaching of fabrics, was discussed. Patient was counseled to use on a once to twice a day basis. The wash should be applied to the affected areas x 5 minutes, and subsequently rinsed well. Advised pt to not use this at the same time as the topical retinoid. F/u in 3 months. If doing well and she is not yet, ok to cancel and f/u in 6 months. documented in this encounter Plan of Treatment Not on filedocumented as of this encounter Visit Diagnoses Diagnosis Acne vulgaris Other acne Scar Scar condition and fibrosis of skin documented in this encounter Care Teams Pick Up And Delivery Driver Relationship Specialty Start Date End Date Mikala Best APRN, DATA WAREHOUSE SPECIALIST PCP - General 07/16/10 02/11/12 [address] [address] [place] [address] documented as of this encounter
--- OUTSIDE RECORDS SUMMARY | 2022-03-23 17:34 | XMS_ITS | Encounter Summary ---
:1980 Author Organization [facility] Address [address] [place] [address] Care Team Providers Name Role Phone Mikala Best APRN, CNP Primary Care Provider [phone] Reason for Visit Reason Comments LAB RESULTS Encounter Details Date Type Department Care Team Description 09/03/2011 Telephone Harriet Downey, DO LAB RESULTS Obstetrics/Gynecolog y [address] [address] [place] [address] [place] [address] [phone] Social History Tobacco Use Types Packs/Day Years Used Date Smoking Tobacco: Never Assessed Sex Assigned at Date Recorded Not on file documented as of this encounter Nursing Notes Bhavana Pierson - 09/03/2011 9:01 AM CDT Pt calling for lab results from 09/01, given. documented in this encounter Plan of Treatment Not on filedocumented as of this encounter Visit Diagnoses Not on filedocumented in this encounter Care Teams Design Manager Relationship Specialty Start Date End Date Mikala Best APRN, CNP PCP - General 07/16/10 02/11/12 [address] [address] [place] [address] documented as of this encounter
--- OUTSIDE RECORDS SUMMARY | 2022-03-23 17:34 | XMS_ITS | Encounter Summary ---
:1980 [facility] Address [address] [place] [address] Care Team Providers Name Role Phone Miklaa Best APRN, CNP Primary Care Provider [phone] Reason for Visit Reason Comments Concerns Encounter Details Date Type Department Care Team Description 09/02/2011 Nurse Triage Allen Tam Concerns Obstetrics/[place] [address] [facility] [address] [place] [address] [place] [address] [phone] (Wo rk) Social History Tobacco Use Types Packs/Day Years Used Date Smoking Tobacco: Never Assessed Sex Assigned at Date Recorded Not on file documented as of this encounter Nursing Notes Allen Amaya - 09/02/2011 12:29 PM CDT Spoke with patient. Will check quant HCG today and repeat on 07/05/11. Orders entered. Angeline Siddiqui - 09/02/2011 11:56 AM CDT Protocol: - VAGINAL BLEEDING LESS THAN 20 WEEKS [id number] Affirmative: Spotting lasting > 48 hours or spotting happens more than once in a week Discuss with On-call provider and call back by nurse. Pt's LMP is 07/29/11. Calling with concerns about brown spotting the last 2 days. Blood type is 0 pos. Denies cramping. Has not had intercourse in the previous 48 hrs. Is asking if she could have lab work done to see if the is OK. States she is quite worried about this. Please have someone notify her when orders have been entered. [phone], cell #. documented in this encounter Plan of Treatment Not on filedocumented as of this encounter Visit Diagnoses Diagnosis First trimester bleeding - Primary Unspecified hemorrhage in early pregnanc y, antepartum documented in this encounter Care Teams Commercial Ocean Clammer Relationship Specialty Start Date End Date Mikala Best APRN, SPECIALTY MANUFACTURING SUPERVISOR PCP - General 07/16/10 02/11/12 [address] [address] [place] [address] documented as of this encounter
--- OUTSIDE RECORDS SUMMARY | 2022-03-23 17:34 | XMS_ITS | Encounter Summary ---
:1980 Author Organization [facility] Address [address] [place] [address] Care Team Providers Name Role Phone Allen Amaya MD Primary Care Provider [phone] Encounter Details Date Type Department Care Team Description 09/27/2011 Notes/Orders [facility] [address] Allen Amaya, Maternal Medicine Ultrasound [address] [place], [place] [address] [place] [address] [phone] Social History Tobacco Use Types Packs/Day Years Used Date Smoking Tobacco: Never Assessed Sex Assigned at Date Recorded Not on file documented as of this encounter Plan of Treatment Not on filedocumented as of this encounter Procedures Procedure Name Priority Date/Time Associated Diagnosis Comme nts [facility] US NT Routine 10/23/2011 3:39 PM Results f or this CDT procedure are i n the results section . documented in this encounter Results Bertha US NT (10/23/2011 3:39 PM CDT) Anatomical Region Laterality Modality Pelvis Other Specimen (Source) Anatomical Location Collection Method / Collectio n Time Received Time / Laterality Volume Impressions 10/23/2011 4:08 PM CDT IMPRESSION: 1. Mckeon gestation at 12 2/7 weeks g estation. 2. The nuchal translucency measurement o btained on today's ultrasound is ?? greater than the 95th percentile for ges tational age. ?? COMMENT The nuchal translucency measurement obta ined on today's ultrasound is ?? increased for gestational age. ??Thick n uchal translucencies are associated with ?? an increased risk for chromosomal abnorm alities and structural ?? abnormalities including specifically, ca rdiac malformations. ??We discussed with ?? the patient the availability of both cho rionic villus sampling and amniocentesis ?? for the precise diagnosis of chromosomal abnormalities including the associated ?? procedure-related risk of loss of 1/300 with either procedure. In ?? addition, we discussed the option of mat ernal serum testing for chorionic DNA, ?? which can detect Trisomy 21,18, and 13. ?? Shamir had a further discussion with [facility] craig genetic counselor. ??I would ?? recommend that the patient have a detail ed ultrasound examination at 18-20 weeks ?? gestation and a echocardiogram at 20-22 weeks gestation if the ?? continues to that point. Artur Kitchen MD <Electronic Signature> ??10/23/2011 04:0 7pm Narrative 10/23/2011 4:08 PM CDT ? [facility] ?[facility] ? [address] ?[address] ? [place], [place] ??[address] ? Phone: ? Pat. Name: SHAMIR NOLASCO ? Study Date: ?? 10/23/2011 ?? 3:02pm Pat. No: ?? [id number] ?Referring MD: Nikole Dalton GASOLINE ENGINE INSPECTOR ?? 1346 LMP: ? 07/29/2011 ?Surveyor Mine: ??Michelle Fox, RDM GA by LMP: 12w2d ? , Age: ? 1980, 31 GA by US: ??13w0d ? Pregnancies: ?? 2, Para 1001 Hist/Ind: ??First Trimester Screening ? GA Selected: ??12w2d (LMP) ? MARIANO: ?05/04/2012 MEASUREMENTS & AGE ? GROWTH EVALUATION Measurement ??GA ? Range ? So urce ?? % ?? 12w2d ??Ratios ----- ------- ?? CRL ??6.8 cm 13w0d ([id number]) Hadlock ??CRL ??82% GA for sonogram 13w0d ([id number]) based on (CRL) Avg ? Heart Rate: 153 bpm CLINICAL SUMMARY A First Trimester Ultrasound Nuchal Calderon slucency Screening was done. TYPE OF GESTATION: Mckeon PRESENTATION OF FETUS:Vertex PLACENTAL LOCATION: ?? Anterior MOTION: ?? appears normal ?? UTERUS AND ADNEXAE: The uterus and ovari es are grossly normal. YOLK SAC: ??Was not seen HEART: ?? The cardiac rhythm is re gular and the rate is normal. EXTREMITIES: ?? All four extremities are visualized and movement is ?? noted. GROWTH: ?? Consistent with normal growth NASAL BONE: ?? nasal bone was not v isualized due to position.. NUCHAL TRANSLUCENCY: ??measures ??5.7 mm , ??which is ABOVE the 95th %tile. ?? She did not meet with one of the [facility] genetic counselors today. RECOMMENDATIONS: This patient is less than 35 years of ag e at the time of delivery. ?? She was ?? seen today for first trimester screening for aneuploidy (Ultrascreen). ?? Blood was drawn for CT-A and free Beta HCG. ??She will be informed of test ?? results when available - typically 7-10 days. This first trimester test does not scree n for open neural tube defect (ONTD, ?? spina bifida). ??All women should be off ered maternal serum alpha fetoprotein ?? (MS-AFP) screening at 15-18 weeks gestat ion Procedure Note Artur Kitchen MD - 11/22/2015Forma tting of this note might be different from the original. [facility] [address] [address] Fax: Pat. Name: SHAMIR NOLASCO Study Date: 10/23/2011 3:02pm Pat. No: [id number] Referring MD: Nikole Dalton GASOLINE ENGINE INSPECTOR 1346 LMP: 07/29/2011 Surveyor Mine: LADI Ramires GA by LMP: 12w2d , Age: 10 1980, [age] GA by US: 13w0d Pregnancies: 2, Para 1001 Hist/Ind: First Trimester Screening GA Selected: 12w2d (LMP) MARIANO: 05/04/2012 MEASUREMENTS & AGE GROWTH EV ALUATION Measurement GA Range Source % 12w2d Rati os ----- ------- CRL 6.8 cm 13w0d ([id number]) Hadlock C RL 82% GA for sonogram 13w0d ([id number]) based on (CRL) Avg Heart Rate: 153 bpm CLINICAL SUMMARY A First Trimester Ultrasound Nuchal Calderon slucency Screening was done. TYPE OF GESTATION: Mckeon PRESENTATION OF FETUS:Vertex PLACENTAL LOCATION: Anterior MOTION: appears normal UTERUS AND ADNEXAE: The uterus and ovari es are grossly normal. YOLK SAC: Was not seen HEART: The cardiac rhythm is regul ar and the rate is normal. EXTREMITIES: All four extremities are vi sualized and movement is noted. GROWTH: Consistent with normal fet al growth NASAL BONE: nasal bone was not vis ualized due to position.. NUCHAL TRANSLUCENCY: measures 5.7 mm, wh ich is ABOVE the 95th %tile. She did not meet with one of the [facility] genetic counselors today. RECOMMENDATIONS: This patient is less than 35 years of ag e at the time of delivery. She was seen today for first trimester screening for aneuploidy (Ultrascreen). Blood was drawn for CT-A and free Beta HCG. She will be informed of test results when available - typically 7-10 days. This first trimester test does not scree n for open neural tube defect (ONTD, spina bifida). All women should be offer ed maternal serum alpha fetoprotein (MS-AFP) screening at 15-18 weeks gestat ion IMPRESSION IMPRESSION: 1. Mckeon gestation at 12 2/7 weeks g estation. 2. The nuchal translucency measurement o btained on today's ultrasound is greater than the 95th percentile for ges tational age. COMMENT The nuchal translucency measurement obta ined on today's ultrasound is increased for gestational age. Thick nuc reema translucencies are associated with an increased risk for chromosomal abnorm alities and structural abnormalities including specifically, ca rdiac malformations. We discussed with the patient the availability of both cho rionic villus sampling and amniocentesis for the precise diagnosis of chromosomal abnormalities including the associated procedure-related risk of loss of 1/300 with either procedure. In addition, we discussed the option of mat ernal serum testing for chorionic DNA, which can detect Trisomy 21,18, and 13. Shamir had a further discussion with [facility] craig genetic counselor. I would recommend that the patient have a detail ed ultrasound examination at 18-20 weeks gestation and a echocardiogram at 20-22 weeks gestation if the continues to that point. Artur Kitchen MD <Electronic Signature> 10/23/2011 04:07p m Allen Amaya MD [facility] documented in this encounter Visit Diagnoses Not on filedocumented in this encounter Care Teams Coal Wheeler Relationship Specialty Start Date End Date Allen Amaya MD PCP - General 02/12/12 02/01/13 [address] [place] [address] documented as of this encounter
--- OUTSIDE RECORDS SUMMARY | 2022-03-23 17:34 | XMS_ITS | Encounter Summary ---
:1980 Author Organization [facility] Address [address], [place] [address] Care Team Providers Name Role Phone Mikala Best APRN, CNP Primary Care Provider [phone] Encounter Details Date Type Department Care Team Description 09/10/2011 [facility] [place] [address] [place] [address] Social History Tobacco Use Types Packs/Day Years Used Date Smoking Tobacco: Never Assessed Sex Assigned at Date Recorded Not on file documented as of this encounter Plan of Treatment Not on filedocumented as of this encounter Visit Diagnoses Not on filedocumented in this encounter Care Teams Sales Operations Consultant Relationship Specialty Start Date End Date Mikala Best APRN, CNP PCP - General 07/16/10 02/11/[address] [place] [id number] documented as of this encounter
--- OUTSIDE RECORDS SUMMARY | 2022-03-23 17:34 | XMS_ITS | Encounter Summary ---
:1980 Author Organization [facility] Address [address] [place] [address] Care Team Providers Name Role Phone Mikala Best APRN, CNP Primary Care Provider [phone] Encounter Details Date Type Department Care Team Description 09/23/2011 Lab Visit [facility] screening for isoi mmunization; [address] [address] Encounter for blood typing; [place] [address] Screening for unspecified di sorder of blood and blood-forming organs; [phone] Special screeni ng examination for other specified viral diseases; Screening exami nation for venereal disease; Screening exami nation for rubella; Supervision of normal subsequent ; Screening for d iabetes mellitus Social History Tobacco Use Types Packs/Day Years Used Date Smoking Tobacco: Never Assessed Sex Assigned at Date Recorded Not on file documented as of this encounter Plan of Treatment Not on filedocumented as of this encounter Procedures Procedure Name Priority Date/Time Associated Diagnosis Comme nts BLOOD GROUP & RH Routine 09/23/2011 8:32 Encounter for blood R esults for this (BLOOD TYPE) AM CDT typing procedure are i n the results section. ANTIBODY SCREEN Routine 09/23/2011 8:32 screening fo r Results for this CLINIC AM CDT isoimmunization procedure ar e in the results section. RUBELLA IGG Routine 09/23/2011 8:32 Screening examination Res ults for this AM CDT for rubella procedure are i n the results section. HIV ANTIBODY Routine 09/23/2011 8:32 Special screening Results for this AM CDT examination for other proced ure are in specified viral the results diseases section. Screening examination for venereal disease GLUCOSE Routine 09/23/2011 8:32 Screening for diabetes Re sults for this AM CDT mellitus procedure are i n the results section. RPR BLOOD Routine 09/23/2011 8:32 Screening examination Res ults for this AM CDT for venereal disease procedu re are in the results section. HEP B SURFACE Routine 09/23/2011 8:32 Special screening Result s for this ANTIGEN, NO REFLEX AM CDT examination for other procedure are in specified viral the results diseases section. Screening examination for venereal disease COMPLETE BLOOD Routine 09/23/2011 8:32 Screening for Results f or this COUNT-W/DIFF AM CDT unspecified disorder of proc edure are in blood and blood-forming the results organs section. DIFFERENTIAL Routine 09/23/2011 8:32 Results for this AM CDT procedure are i n the results section. HGB A1C Routine 09/23/2011 8:32 Screening for diabetes Re sults for this AM CDT mellitus procedure are i n the results section. documented in this encounter Results Differential (09/23/2011 8:32 AM CDT) athologist Signature Absolute 6.0 1.8 - 8.0 HP CONVERSION Neutrophils k/cmm Absolute 1.1 1.1 - 4.0 HP CONVERSION Lymphocytes k/cmm Absolute 0.3 0.2 - 0.8 HP CONVERSION Monocytes k/cmm Absolute 0.1 0.0 - 0.5 HP CONVERSION Eosinophils k/cmm Absolute 0.0 0.0 - 0.2 HP CONVERSION Basophils k/cmm Specimen Anatomical Collection Method Collection Time Receive d Time (Source) Location / / Volume Laterality 09/23/2011 8:32 AM 2 8:32 CDT AM CDT Narrative HP CONVERSION - 09/23/2011 8:55 AM CDT Performed at [facility], [address] [place] [address] Sonja Dalton APRN, CHEMICAL PROCESSING EQUIPMENT REPAIRER LAB_1 Performing Organization Address City/State/ZIP Code Phon e Number HP CONVERSION Hgb A1c (09/23/2011 8:32 AM CDT) athologist Signature HGB A1C 4.8 0.0 - 6.0 % HP CONVERSION Specimen Anatomical Collection Method Collection Time Receive d Time (Source) Location / / Volume Laterality 09/23/2011 8:32 AM 2 CDT 11:48 AM CDT Sonja Dalton APRN, CNP LAB_1 Performing Organization Address [facility] Code Phon e Number HP CONVERSION GLUCOSE (09/23/2011 8:32 AM CDT) athologist Signature Lab Glucose 85 60 - 100 HP CONVERSION mg/dL Specimen Anatomical Collection Method Collection Time Receive d Time (Source) Location / / Volume Laterality 09/23/2011 8:32 AM 2 8:32 CDT AM CDT Narrative HP CONVERSION - 09/23/2011 9:04 AM CDT Performed at [facility], [address] [place] [address] Sonja Dalton APRN, CNP LAB_1 Performing Organization Address [facility] Phon e Number HP CONVERSION RUBELLA IGG (09/23/2011 8:32 AM CDT) athologist Signature Rubella IgG Immune Immune HP CONVERSION Specimen Anatomical Collection Method Collection Time Receive d Time (Source) Location / / Volume Laterality 09/23/2011 8:32 AM 2 CDT 11:48 AM CDT Sonja Dalton APRN, CNP LAB_1 Performing Organization Address [facility] Code Phon e Number HP CONVERSION RPR BLOOD (09/23/2011 8:32 AM CDT) athologist Signature RPR Non Reac Nonreactive HP CONVERSION Specimen Anatomical Collection Method Collection Time Receive d Time (Source) Location / / Volume Laterality 09/23/2011 8:32 AM 2 CDT 11:48 AM CDT Sonja Dalton APRN, CNP LAB_1 Performing Organization Address City/[facility] Code Phon e Number HP CONVERSION HIV ANTIBODY (09/23/2011 8:32 AM CDT) athologist Signature HIV 1/HIV 2 Non-React Non-Reacti HP CONVERSION ve Specimen Anatomical Collection Method Collection Time Receive d Time (Source) Location / / Volume Laterality 09/23/2011 8:32 AM 2 CDT 11:48 AM CDT Sonja Dalton APRN, CNP LAB_1 Performing Organization Address City/[facility] Code Phon e Number HP CONVERSION Hep B Surface Antigen, No Reflex (09/23/2011 8:32 AM CDT) Analysis Performed At Patho logist Time Signature Hep B Surf Ag Negative Negative HP CONVERSION Specimen Anatomical Collection Method Collection Time Receive d Time (Source) Location / / Volume Laterality 09/23/2011 8:32 AM 2 CDT 11:48 AM CDT Sonja Dalton APRN, CNP LAB_1 Performing Organization Address [facility] Phon e Number HP CONVERSION Hemogram/Plts/Diff (09/23/2011 8:32 AM CDT) P athologist Signature White Blood Cell 7.5 3.8 - 11.0 HP CONVERSIO N Count k/cmm Red Blood Cell 4.06 3.70 - HP CONVERSION Count 5.20 m/cmm Hemoglobin 12.1 11.8 - HP CONVERSION 15.5 g/dL Hematocrit 36.2 35.0 - HP CONVERSION 46.0 % Mean Corpuscular 89.1 80.0 - HP CONVERSION Volume 100.0 fL RDW 14.0 11.0 - HP CONVERSION 15.0 % Platelet Count 212 140 - 450 HP CONVERSION k/cmm Specimen Anatomical Collection Method Collection Time Receive d Time (Source) Location / / Volume Laterality 09/23/2011 8:32 AM 2 8:32 CDT AM CDT Narrative HP CONVERSION - 09/23/2011 8:55 AM CDT Performed at [facility], [address] [place] [address] Sonja Dalton APRN, CNP LAB_1 Performing Organization Address City/[facility] Code Phon e Number HP CONVERSION BLOOD GROUP & RH (BLOOD TYPE) (09/23/2011 8:32 AM CDT) P athologist Signature BB BLOOD TYPE O POS HP CONVERSION (BLOOD GROUP & RH) Specimen Anatomical Collection Method Collection Time Receive d Time (Source) Location / / Volume Laterality 09/23/2011 8:32 AM 2 CDT 11:48 AM CDT Sonja Dalton APRN, CNP PN BLOOD BANK ORDERS Performing Organization Address City/[facility]/ZIP Code Phon e Number HP CONVERSION ANTIBODY SCREEN CLINIC (09/23/2011 8:32 AM CDT) P athologist Signature Ab Screen Solid NEG HP CONVERSION Phase Specimen Anatomical Collection Method Collection Time Receive d Time (Source) Location / / Volume Laterality 09/23/2011 8:32 AM 2 CDT 11:48 AM CDT Sonja Dalton APRN, CNP PN BLOOD BANK ORDERS Performing Organization Address [facility] Phon e Number HP CONVERSION documented in this encounter Visit Diagnoses Diagnosis screening for isoimmunization Encounter for blood typing Screening for unspecified disorder of bl ood and blood-forming organs Special screening examination for other specified viral diseases Screening examination for venereal disea se Screening examination for rubella Supervision of normal subsequent pregnan cy Supervision of other normal Screening for diabetes mellitus documented in this encounter Care Teams Final Cigar And Box Examiner Relationship Specialty Start Date End Date Mikala Best APRN, BONITA PCP - General 07/16/10 02/11/[address] [place] [id number] documented as of this encounter
--- OUTSIDE RECORDS SUMMARY | 2022-03-23 17:34 | XMS_ITS | Encounter Summary ---
:1980 [facility] Address [address], [place] [address] Care Team Providers Name Role Phone BevGilles alvaradomacario URBINA CNP Primary Care Provider [phone] Reason for Visit Reason Comments INITIAL VISIT Encounter Details Date Type Department Care Team Description 09/23/2011 Initial Ghanshyam Dalton, INITIAL PRE LIZZ Obstetrics/Gynecolog Sonja Patton APRN, SIT y CHIPPER MACHINE OPERATOR [address] [place] [address] [place], [place] [phone] [address] Social History Tobacco Use Types Packs/Day Years Used Date Smoking Tobacco: Never Assessed Sex Assigned at Date Recorded Not on file documented as of this encounter Last Filed Vital Signs Vital Sign Reading Time Taken Comments Blood Pressure 102/68 09/23/2011 7:48 AM CDT Pulse - - Temperature - - Respiratory Rate - - Oxygen Saturation - - Inhaled Oxygen Concentration - - Weight 81.6 kg (180 lb) 09/23/2011 7:48 AM CDT Height 165.1 cm (5' 5) 09/23/2011 7:48 AM CDT Body Mass Index 29.95 09/23/2011 7:48 AM CDT documented in this encounter Progress Notes Sonja Dalton APRN, CNP - 09/23/2011 1:16 PM CDT Addended by: SONJA DALTON on: 09/23/2011 Modules accepted: Orders Sonja Dalton APRN, BONITA - 09/23/2011 8:48 AM CDT New OB visit Subjective: Lacey Nolasco is a 31 y.o. female who presents to clinic for new OB exam. Pt only concern is nausea, which she stated has improved with Zofran. I discussed comfort measures, regarding nausea. Pt voiced understanding. MP: Patient's last menstrual period was 07/29/2011. 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 Outcome Date 05/23/05 GA 39w 0d ??? Delivery Type Vaginal, Spontaneous Delivery ??? at 1 min. Not recorded at 5 min. Not recorded ??? Living Yes Name of Baby 2 Not recorded ??? Outcome Date Not recorded [place] Not recorded ??? Delivery Type Not recorded ??? at 1 min. Not recorded at 5 min. Not recorded ??? Living Not recorded Pap smear history: history of abnormal pap several years ago. Pap done today STD history: genital herpes, infrequent out breaks Social history: Occupation: [employer] Marital status: Tobacco/alcohol/drugs: none Family/genetic history: denies defects in her or the father of the baby's family. Medications: Medications reviewed and updated. Allergies: Allergies reviewed and updated. Review of Systems: The remainder of the complete review of systems is negative. Objective: BP 102/68 Ht 5' 5 (1.651 m) Wt 180 lb (81.647 kg) BMI 29.95 kg/m2 LMP 07/29/2011 General: Well developed, well-nourished female. HEENT: Sclera clear, pupils equal. Oropharynx normalappearing. Neck: No lymphadenopathy, thyromegaly, or masses noted. Cardiovascular: Heart with regular rate and rhythm. No peripheral edema. Respiratory: Clear to auscultation bilaterally. Normal respiratory effort. Abdomen: No tenderness, masses or hepatosplenomegaly. Pelvic: External without lesions.Vagina and cervix pink without lesions. Uterus palpates to approximately 8 week size, and is mobile,and non-tender. Adnexa without masses or tenderness. Cervix long, thick, closed. Rectal: No hemorrhoids or redness noted. Lymphatic: No neck, supraclavicular, axillary, or groin lymphadenopathy. Skin: No lesions. Psych: Alert and oriented. Appropriate affect, no agitation. Heart Tones: not heardwith doptone. Ultrasound: Transvaginal ultrasound performed by myself to check for dating and viability of . Single, viable, intrauterine visualized. Average crown rump length: 1.73 cm Gestational age based on US: 8 weeks 1 days. Estimated due date based on this ultrasound: 05-07-12. heart rate: 156 beats/minute. Yolk sac present. movement absent. Adnexa: no masses seen Assessment: New OB exam. Hx genital herpes Nausea first trimester Plan: Return to clinic in 4 weeks for NOB 2 exam with one of the insulation inspector physicians. Pap smear, CBC, blood type, antibody screen, rubella immune status, RPR, HIV, Hepatitis B antigen, UA/UC, hgb A1C, glucose New OB education provided regarding anticipated care, genetic screening, diet, exercise, sexual activity, travel, medication use in , toxoplasmosis and listeriosis. Patient expressed understanding of education. Pt desires Nuchal cord screen, however she would like to check with her insurance, prior to scheduling Total time with patient 55 minutes, total education time 40. BHUMIKA Neil documented in this encounter Plan of Treatment Not on filedocumented as of this encounter Procedures Procedure Name Priority Date/Time Associated Diagnosis Comme nts ANATOMICAL PATH Routine 09/23/2011 8:28 AM Result s for this LIQUID BASED CDT procedure are i n the results section. PAP SMEAR SCREENING Routine 09/23/2011 8:28 AM Screening for R esults for this CDT malignant neoplasm procedure are in of the cervix the results section. OB CLINIC Routine 09/23/2011 12:00 Supervision of Results f or this TRANSVAGINAL AM CDT normal subsequent procedure are in ULTRASOUND the results section. documented in this encounter Results Pap Smear (09/23/2011 8:28 AM CDT) Specimen (Source) Anatomical Collection Method Collection Time Re ceived Time Location / / Volume Laterality 09/23/2011 8:28 AM CDT Narrative HP CONVERSION - 09/27/2011 1:00 PM CDT Final GYNECOLOGICAL CYTOLOGY REPORT Pathology #: [id number] ?Date Obtained: 09/23/2011 ? Date Received: 09/24/2011 INTERPRETATION/RESULTS: Negative for Intraepithelial Lesion or M alignancy SPECIMEN ADEQUACY: Satisfactory for Evaluation. ??Endocervi ren cells/transformation zone component present. Verified on 09/27/2011 ??by MINIE BACCAM , CT(ASCP) (electronic signature) CLINICAL NOTES: ? LMP: 07/29/11. LIQUID BASED PAP SMEAR SPECIMEN TYPE: ?CERVICAL WITH REFLEX TO HPV IF ASCUS PLEASE NOTE: The pap smear is a screening test design ed to aid in the detection of cervical cancer and its pre cursor lesions. It is not a diagnostic procedure and luiza uld not be used as the sole means of detecting cervical cancer. Both false-positive and false-negative report s may occur. ? End of Report Sonja Dalton APRN, CNP LAB_1 Performing Organization Address City/State/ZIP Code Phon e Number HP CONVERSION Pap Smear Screening (09/23/2011 8:28 AM CDT) P athologist Signature PAP Routine Collected HP CONVERSION Specimen Anatomical Collection Method Collection Time Receive d Time (Source) Location / / Volume Laterality 09/23/2011 8:28 AM 2 8:51 CDT AM CDT Sonja Dalton APRN, CNP LAB_1 Performing Organization Address City/State/ZIP Code Phon e Number HP CONVERSION OB CLINIC TRANSVAGINAL ULTRASOUND (09/23/2011 12:00 AM CDT) Anatomical Region Laterality Modality Other Specimen (Source) Anatomical Location Collection Method / Collectio n Time Received Time / Laterality Volume Narrative 09/23/2011 12:00 AM CDT Is patient ?->Yes Relevant signs and symptoms->unable to h era fht Sonja Dalton APRN, CHIPPER MACHINE OPERATOR PN CLINIC US ORDERABLES documented in this encounter Visit Diagnoses Diagnosis Screening for malignant neoplasm of the cervix - Primary Supervision of normal subsequent pregnan cy Supervision of other normal screening for isoimmunization Encounter for blood typing Screening for unspecified disorder of bl ood and blood-forming organs Special screening examination for other specified viral diseases Screening examination for venereal disea se Screening examination for rubella Screening for diabetes mellitus documented in this encounter Care Teams Marketing Producer Relationship Specialty Start Date End Date Mikala Best APRN, CHIPPER MACHINE OPERATOR PCP - General 07/16/10 02/11/12 [address] [place] [address] documented as of this encounter
--- OUTSIDE RECORDS SUMMARY | 2022-03-23 17:34 | XMS_ITS | Encounter Summary ---
:1980 Author Organization [facility] Address [address], [place] [address] Care Team Providers Name Role Phone Bevjenny Mikala URBINA CNP Primary Care Provider [phone] Reason for Visit Reason Comments CONSULT Encounter Details Date Type Department Care Team Description 07/05/2011 Office Visit Allen Tam Female in fertility Obstetrics/Gynecolog MD Kiran associated with y [address] anovulation (Primary [address] [place] [address] Dx) [place] [address] [phone] Social History Tobacco Use Types Packs/Day Years Used Date Smoking Tobacco: Never Assessed Sex Assigned at Date Recorded Not on file documented as of this encounter Last Filed Vital Signs Vital Sign Reading Time Taken Comments Blood Pressure 122/70 07/05/2011 7:05 AM CDT Pulse - - Temperature - - Respiratory Rate - - Oxygen Saturation - - Inhaled Oxygen Concentration - - Weight 77.6 kg (171 lb) 07/05/2011 7:05 AM CDT Height - - Body Mass Index 28.02 05/27/2011 1:52 PM CHILD CARE AIDE documented in this encounter Progress Notes Allen Amaya - 07/05/2011 8:11 AM CDT Progress Notes signed by Allen Amaya MD at 07/05/11 1400 Author: Allen Amaya MD Service: (none) Author Type: Physician Filed: 07/05/11 1400 Note Time: 07/05/11 0811 Status: Signed Sand Digger: Allen Amaya MD (Physician) NAME: SHAMIR NOLASCO MR#: [id number] CSN: [id number] AUTHENTICATING CLINICIAN: Allen Amaya MD CONFIRM #: [id number] LOC: 512 CLINIC PROGRESS NOTE DATE OF VISIT: 07/05/2011 : 1980 Shamir Nolasco is a 31-year-old female, para 1 here for essentially a postop check as well as ongoing discussion of infertility. She had undergone laparoscopy with fulguration of multiple endometriotic implants on April 23, 2011. Findings at the time of surgery were that of normal uterus, tubes and ovaries, but there were multiple small endometriotic implants in the posterior cul-de-sac and the right uterosacral ligament as well as the right ovarian fossa. There were two small implants in the anterior cul-de-sac as well. The upper abdomen and appendix appeared normal. These areas were fulgurated. The patient had no postoperative difficulties. Subsequent to surgery, she also had a degenerative disk in her neck replaced with an artificial disk. This was done 2 weeks ago. She states that she has had regular cycles since this time but has done ovulation predictor kits the last 2 cycles with no ovulation identified. I explained to her that the stress related to both her initial laparoscopy and then her neck surgery certainly would have an adverse effect on the likelihood of her ovulating. She is anxious to conceive and again, her workup to this point has been negative other than the minimal endometriosis treated in April. I advised that we begin a course of Clomid. She is presently day 4 of her cycle. Risks, benefits and alternatives to this, a twinning rate of 5% to 8% were all explained and she wishes to proceed in this fashion. A prescription for Clomid 50 mg p.o. daily day 5 of her present cycle which is tomorrow was written. Patient will have a day 21 progesterone checked and can continue to do ovulation predictor kits if she desires. Physical examination was deferred. ASSESSMENT: Ongoing management of infertility, normal postoperative evaluation, oligo- ovulation. Begin Clomid therapy as outlined above. 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
--- OUTSIDE RECORDS SUMMARY | 2022-03-23 17:34 | XMS_ITS | Encounter Summary ---
:1980 Author Organization [email or web address] Address [address] [place] [address] Care Team Providers Name Role Phone Bevjenny Mikala URBINA, WOODS SUPERINTENDENT Primary Care Provider [phone] Reason for Visit Reason Comments Lab Questions Encounter Details Date Type Department Care Team Description 08/12/2011 Telephone Allen Tam, Lab Questions Obstetrics/Gynecolog y [address] [facility] [address] [place] [address] [place] [address] [phone] (Wo rk) Social History Tobacco Use Types Packs/Day Years Used Date Smoking Tobacco: Never Assessed Sex Assigned at Date Recorded Not on file documented as of this encounter Nursing Notes Bhavana Pierson - 08/12/2011 9:57 AM CDT LM on regarding lab. Allen Amaya - 08/12/2011 9:23 AM CDT It would be francis to check Day 21 progesterone this cycle. Order placed in EPIC - please notify patient. Bhavana Pierson - 08/12/2011 9:10 AM CDT Pt is taking Clomid earlier this month, days 3-7, and was wondering if she should still get Progesterone on day 21. . documented in this encounter Plan of Treatment Not on filedocumented as of this encounter Visit Diagnoses Diagnosis Infertility, female, secondary - Primary Female infertility of unspecified origin documented in this encounter Care Teams Associate Quality Engineer Relationship Specialty Start Date End Date Mikala Best APRN, WOODS SUPERINTENDENT PCP - General 07/16/10 02/11/12 [address] [address] [place] [address] documented as of this encounter
--- OUTSIDE RECORDS SUMMARY | 2022-03-23 17:34 | XMS_ITS | Encounter Summary ---
:1980 [facility] Address [address] [place] [address] Care Team Providers Name Role Phone Nasir Mikala URBINA CNP Primary Care Provider [phone] Reason for Visit Reason Comments LAB RESULTS Encounter Details Date Type Department Care Team Description 08/20/2011 Telephone [place] Harriet Beasley DO LAB RESULTS Obstetrics/Gynecolog y [address] [address] [place] [address] [place] [address] [phone] Social History Tobacco Use Types Packs/Day Years Used Date Smoking Tobacco: Never Assessed Sex Assigned at Date Recorded Not on file documented as of this encounter Nursing Notes Harriet Beasley DO - 08/20/2011 1:50 PM CDT Talked with pt and explained that with progesterone of 21, it looks as thought she has ovulated and that it a good sign. She will let us know if she gets her next menses or if she is . Angeline Siddiqui - 08/20/2011 12:44 PM CDT Lacey is calling for the results of a progesterone drawn on 08/17. Results are available in Epic. is not in clinic until tomorrow a.m. and Lacey is flying out of town tomorrow a.m. She is asking if you could call her and discuss the results. Can be reached at [phone], may leave a message. documented in this encounter Plan of Treatment Not on filedocumented as of this encounter Visit Diagnoses Not on filedocumented in this encounter Care Teams Central Sterile Technician Relationship Specialty Start Date End Date Mikala Best APRN, LOCKSTITCH LINING MAKER PCP - General 07/16/10 02/11/12 [address] [place] [id number] documented as of this encounter
--- OUTSIDE RECORDS SUMMARY | 2022-03-23 17:34 | XMS_ITS | Encounter Summary ---
:[address] Address [address] [place] [address] Care Team Providers Name Role Phone Nasir Mikala URBINA CNP Primary Care Provider [phone] Reason for Visit Reason Comments Information Order Questions Encounter Details Date Type Department Care Team Description 09/23/2011 Telephone Sonja Cagle Informati on; Order Obstetrics/Gynecolog y Abdi, CARLITOS, DECK MOLDER Questions [address] [place] [address] [place], [place] [phone] (Wo rk) Social History Tobacco Use Types Packs/Day Years Used Date Smoking Tobacco: Never Assessed Sex Assigned at Date Recorded Not on file documented as of this encounter Nursing Notes Bhavana Pierson - 09/23/2011 11:14 AM CDT Pt doesn't need the coding # for 1st tri screen as she talked to insurance, and it is covered. She would like to have it done. Informed provider will need to order. Angeline Siddiqui - 09/23/2011 9:51 AM CDT Pt. spoke with her insurance co. regarding the First Trimester Screening. She was told it would be covered if it is coded as medically necessary. She is also asking for the coding number for this test. Please advise. Pt. can be reached at [phone]. It is OK to leave a message. documented in this encounter Plan of Treatment Not on filedocumented as of this encounter Visit Diagnoses Not on filedocumented in this encounter Care Teams Contract Graphic Designer Relationship Specialty Start Date End Date Mikala Best APRN, DECK MOLDER PCP - General 07/16/10 02/11/12 [address] [place] [id number] documented as of this encounter
--- OUTSIDE RECORDS SUMMARY | 2022-03-23 17:34 | XMS_ITS | Encounter Summary ---
:1980 Author Organization [facility] Address [address] [address] Care Team Providers Name Role Phone Mikala Best APRN, CNP Primary Care Provider [phone] Encounter Details Date Type Department Care Team Description 09/23/2011 Notes/Orders Sonja Cagle Laborator y Obstetrics/Gynecolog y JCARLITOS CNP examination, [address] [address] [address] [place] ([place] [address] [place], [place] Dx) [phone] (Wo rk) Social History Tobacco Use Types Packs/Day Years Used Date Smoking Tobacco: Never Assessed Sex Assigned at Date Recorded Not on file documented as of this encounter Plan of Treatment Not on filedocumented as of this encounter Visit Diagnoses Diagnosis Laboratory examination, unspecified - Pr imary documented in this encounter Care Teams Sail Finisher Machine Relationship Specialty Start Date End Date Mikala Best APRN, CNP PCP - General 07/16/10 02/11/12 [address] [place] [address] documented as of this encounter
--- OUTSIDE RECORDS SUMMARY | 2022-03-23 17:34 | XMS_ITS | Encounter Summary ---
:1980 Author Organization [facility]ly [facility] Address [address] [place] [address] Care Team Providers Name Role Phone Mikala Best APRN, CNP Primary Care Provider [phone] Encounter Details Date Type Department Care Team Description 05/27/2011 Lab Visit [place] [facility] Preop examination [address] [place] [address] Social History Tobacco Use Types Packs/Day Years Used Date Smoking Tobacco: Never Assessed Sex Assigned at Date Recorded Not on file documented as of this encounter Plan of Treatment Not on filedocumented as of this encounter Procedures Procedure Name Priority Date/Time Associated Diagnosis Comme nts TEST Routine 05/27/2011 2:34 PM Preop examination Re sults for this (URINE) BACK FACER procedure are i n the results section. COMPLETE BLOOD Routine 05/27/2011 2:31 PM Preop examination Re sults for this COUNT-W/DIFF BACK FACER procedure are i n the results section. DIFFERENTIAL Routine 05/27/2011 2:31 PM Results f or this BACK FACER procedure are i n the results section. documented in this encounter Results Test (Urine) (05/27/2011 2:34 PM BACK FACER) [facility] Urine Negative HP CONVERSION Test Specimen Anatomical Collection Method Collection Time Receive d Time (Source) Location / / Volume Laterality 05/27/2011 2:34 PM 2 2:34 BACK FACER PM BACK FACER Narrative HP CONVERSION - 05/27/2011 2:39 PM BACK FACER Performed at [facility] ([facility]3], [address] [place] [address] Roxie Jiang MD LAB_1 Performing Organization Address [facility] Phon e Number HP CONVERSION Differential (05/27/2011 2:31 PM BACK FACER) athologist Signature Absolute 4.2 1.8 - 8.0 HP CONVERSION Neutrophils k/cmm Absolute 1.6 1.1 - 4.0 HP CONVERSION Lymphocytes k/cmm Absolute 0.5 0.2 - 0.8 HP CONVERSION Monocytes k/cmm Absolute 0.2 0.0 - 0.5 HP CONVERSION Eosinophils k/cmm Absolute 0.0 0.0 - 0.2 HP CONVERSION Basophils k/cmm Specimen Anatomical Collection Method Collection Time Receive d Time (Source) Location / / Volume Laterality 05/27/2011 2:31 PM 2 2:31 BACK FACER PM BACK FACER Narrative HP CONVERSION - 05/27/2011 3:14 PM BACK [place]ACER [place] [address] Roxie Jiang MD LAB_1 Performing Organization Address [facility] Phon e Number HP CONVERSION Hemogram/Plts/Diff (05/27/2011 2:31 PM BACK FACER) athologist Signature White Blood Cell 6.5 3.8 - 11.0 HP CONVERSIO N Count k/cmm Red Blood Cell 4.19 3.70 - HP CONVERSION Count 5.20 m/cmm Hemoglobin 12.4 11.8 - HP CONVERSION 15.5 g/dL Hematocrit 36.8 35.0 - HP CONVERSION 46.0 % Mean Corpuscular 88.0 80.0 - HP CONVERSION Volume 100.0 fL RDW 13.8 11.0 - HP CONVERSION 15.0 % Platelet Count 192 140 - 450 HP CONVERSION k/cmm Specimen Anatomical Collection Method Collection Time Receive d Time (Source) Location / / Volume Laterality 05/27/2011 2:31 PM 2 2:31 BACK FACER PM BACK FACER Narrative HP CONVERSION - 05/27/2011 3:14 PM BACK FACER Performed at [facility] ([facility]3], [address] [place] [address] Roxie Jiang MD LAB_1 Performing Organization Address [facility]/State/ZIP Code Phon e Number HP CONVERSION documented in this encounter Visit Diagnoses Diagnosis Preop examination Preoperative examination, unspecified documented in this encounter Care Teams Head Of Store Operations Relationship Specialty Start Date End Date Mikala Best APRN, INKER MACHINE PCP - General 07/16/10 02/11/12 [address] [place] [address] documented as of this encounter
--- OUTSIDE RECORDS SUMMARY | 2022-03-23 17:34 | XMS_ITS | Encounter Summary ---
:1980 Author [facility] Address [address] [place] [address] Care Team Providers Name Role Phone Mikala Best APRN, OBNITA Primary Care Provider [phone] Reason for Visit Reason Comments Medication Request Encounter Details Date Type Department Care Team Description 07/29/2011 Telephone [place] Allen Amaya Medicatio n Request Obstetrics/[place] [address] [facility] [address] [place] [address] [place] [address] [phone] (Wo rk) Social History Tobacco Use Types Packs/Day Years Used Date Smoking Tobacco: Never Assessed Sex Assigned at Date Recorded Not on file documented as of this encounter Nursing Notes Allen Amaya - 07/30/2011 10:55 AM CDT Clomid script faxed to pharmacy. Left message with patient. Advised day 3-7 use. Bhavana Pierson - 07/29/2011 9:56 AM CDT Pt got period today, so would like another prescription for Clomid. She is wondering is she should start it on day 5 again. Informed MD out of office until tomorrow. Also, she was unable to get Progesterone level drawn on day 21 last month because she was out of town. Informed order is still in system, so she will plan on going on day 21. documented in this encounter Plan of Treatment Not on filedocumented as of this encounter Visit Diagnoses Not on filedocumented in this encounter Care Teams Health Counselor Relationship Specialty Start Date End Date Mikala Best APRN, DRY GOODS CLERK PCP - General 07/16/10 02/11/12 [address] [place] [address] documented as of this encounter
--- OUTSIDE RECORDS SUMMARY | 2022-03-23 17:34 | XMS_ITS | Encounter Summary ---
:1980 Author Organization [facility] Address [address] [place] [address] Care Team Providers Name Role Phone Mikala Best APRN, CNP Primary Care Provider [phone] Reason for Visit Reason Comments Appt. Needed Encounter Details Date Type Department Care Team Description 09/05/2011 Telephone Allen Tam, Cisco t. Needed Obstetrics/Gynecolog y [address] [place] [address] [place] [address] [phone] (Wo rk) Social History Tobacco Use Types Packs/Day Years Used Date Smoking Tobacco: Never Assessed Sex Assigned at Date Recorded Not on file documented as of this encounter Nursing Notes Bhavana Pierson - 09/05/2011 9:54 AM CDT Pt calling to schedule trans-vag ultrasound. Scheduled. documented in this encounter Plan of Treatment Not on filedocumented as of this encounter Visit Diagnoses Not on filedocumented in this encounter Care Teams Census Enumerator Relationship Specialty Start Date End Date Mikala Best APRN, CNP PCP - General 07/16/10 02/11/[address] [place] [id number] documented as of this encounter
--- OUTSIDE RECORDS SUMMARY | 2022-03-23 17:34 | XMS_ITS | Encounter Summary ---
:1980 Author Organization [facility] Address [address] [place] [address] Care Team Providers Name Role Phone Mikala Best APRN, BONITA Primary Care Provider [phone] Encounter Details Date Type Department Care Team Description 09/02/2011 Lab Visit [place] [facility] First trimester bleeding [address] [place] [address] Social History Tobacco Use Types Packs/Day Years Used Date Smoking Tobacco: Never Assessed Sex Assigned at Date Recorded Not on file documented as of this encounter Plan of Treatment Not on filedocumented as of this encounter Procedures Procedure Name Priority Date/Time Associated Diagnosis Comme nts HCG, QUANTITATIVE, Routine 09/02/2011 1:11 PM First trimester Results for this SERUM CDT bleeding procedure ar e in the results section. documented in this encounter Results (ABNORMAL) HCG, Quantitative, Serum (09/02/2011 1:11 PM CDT) [facility] Method Time Signature HCG For 6,258 (H) 0 - 6 HP CONVERSION mIU/L Comment: ? Reference Ranges 0-1 week ? 5-50 1-2 weeks ?50-500 2-3 weeks ?100-5,000 3-4 weeks ?500-10,000 1-2 months ? 1,000-200,0 00 2-3 months ? 15,000-200, 000 2nd trimester ? - - - - 3rd trimester ? - - - - Tumor marker ? <5 Consider heterophile antibody interferen ce in women of child-bearing age if serum HCG is persis tently elevated to a mild degree over a period of several wee ks or months. Confirmation with a urine test or serum HCG by an alternate test method may be helpful. He terophile antibodies occur in 1% of the general population an d may interfere with any serum immunoassay (many common prote in, hormone, and tumor marker tests). Specimen Anatomical Collection Method Collection Time Receive d Time (Source) Location / / Volume Laterality 09/02/2011 1:11 PM 2 6:18 CDT PM CDT Allen Amaya MD LAB_1 Performing Organization Address City/State/[facility] Code Phon e Number HP CONVERSION documented in this encounter Visit Diagnoses Diagnosis First trimester bleeding Unspecified hemorrhage in early pregnanc y, antepartum documented in this encounter Care Teams Fire Marshal Relationship Specialty Start Date End Date Mikala Best, CARLITOS, WOOD TURNER PCP - General 07/16/10 02/11/12 [address] [place] [address] documented as of this encounter
--- OUTSIDE RECORDS SUMMARY | 2022-03-23 17:34 | XMS_ITS | Encounter Summary ---
:1980 Author Organization [facility] Address [address], [place] [address] Care Team Providers Name Role Phone Mikala Best APRN, CNP Primary Care Provider [phone] Reason for Visit Reason Comments Routine Visit Encounter Details Date Type Department Care Team Description 10/22/2011 Routine [place] Allen Amaya wi Obstetrics/Gynecolo MD Kiran Visit gy [address] [address] [place] [address] [address] [place], [place] [phone] (Wo rk) [address] [phone] Social History Tobacco Use Types Packs/Day Years Used Date Smoking Tobacco: Never Assessed Sex Assigned at Date Recorded Not on file documented as of this encounter Last Filed Vital Signs Vital Sign Reading Time Taken Comments Blood Pressure 112/64 10/22/2011 3:36 PM CDT Pulse - - Temperature - - Respiratory Rate - - Oxygen Saturation - - Inhaled Oxygen Concentration - - Weight 81.8 kg (180 lb 6.4 oz) 10/22/2011 3:36 PM CDT Height - - Body Mass Index 30.02 09/23/2011 7:48 AM CDT documented in this encounter Progress Notes Allen Amaya - 10/22/2011 4:00 PM CDT NOB2 appt. Labs OK. Quad screen discussed. C/O headaches and hyperemesis. Trial of fioricet documented in this encounter Plan of Treatment Not on filedocumented as of this encounter Visit Diagnoses Diagnosis Supervision of normal subsequent pregnan cy - Primary Supervision of other normal Generalized headaches Headache documented in this encounter Care Teams Sanitary Chemist Relationship Specialty Start Date End Date Mikala Best APRN, BONITA PCP - General 07/16/10 02/11/12 [address] [place] [address] documented as of this encounter
--- OUTSIDE RECORDS SUMMARY | 2022-03-23 17:34 | XMS_ITS | Encounter Summary ---
:1980 Author Organization [facility] Address [address], [place] [address] Care Team Providers Name Role Phone Nasir Mikala URBINA CNP Primary Care Provider [phone] Encounter Details Date Type Department Care Team Description 09/04/2011 Notes/Orders [place] Allen Amaya [facility] Obstetrics/Gynecolog MD Kiran bleeding (Primary y [address] Dx) [address] [place] [address] [place] [address] [phone] Social History Tobacco Use Types Packs/Day Years Used Date Smoking Tobacco: Never Assessed Sex Assigned at Date Recorded Not on file documented as of this encounter Plan of Treatment Not on filedocumented as of this encounter Procedures Procedure Name Priority Date/Time Associated Diagnosis Comme nts US OB <14 WEEKS W Routine 09/10/2011 11:13 AM First trimester Results for this EV SINGLE CDT bleeding procedure are i n the results section. documented in this encounter Results US OB <14 Weeks W EV Single (09/10/2011 11:13 AM CDT) Anatomical Region Laterality Modality Pelvis Other Specimen (Source) Anatomical Location Collection Method / Collectio n Time Received Time / Laterality Volume Impressions 09/10/2011 11:28 AM CDT IMPRESSION: Early living intrauterine of 6 weeks and 1 day. ?? 2.5 cm fibroid at the left lower uterus. Narrative 09/10/2011 11:28 AM CDT Transabdominal and transvaginal images w ere obtained. ??There is an early intrauterine . ??The fetu s measures 0.49 cm to suggest 6 weeks and 1 day. ??Normal cardia c activity was noted at the 118 beats per minute. ??The MARIANO by this ultrasound is 05/04/2011. ?? Small subchorionic bleed seen measuring 1.1 x 0.7 cm. ??Right ovary shows 2.9 cm corpus luteum cyst. ??There is 2.5 x 2.0 cm fibroid at the left lower uterus. ?? Procedure Note Claudio Anderson MD - 09/29/2015 Transabdominal and transvaginal images w ere obtained. There is an early intrauterine . The fetus measures 0.49 cm to suggest 6 weeks and 1 day. Normal cardiac activity was noted at the 118 beats per minute. The MARIANO by this ul trasound is 05/04/2011. Small subchorionic bleed seen measuring 1.1 x 0.7 cm. Right ovary shows 2.9 cm corpus luteum cyst. There i s 2.5 x 2.0 cm fibroid at the left lower uterus. IMPRESSION IMPRESSION: Early living intrauterine pr egnancy of 6 weeks and 1 day. 2.5 cm fibroid at the left lower uterus. Allen Amaya MD [facility] documented in this encounter Visit Diagnoses Diagnosis First trimester bleeding - Primary Unspecified hemorrhage in early pregnanc y, antepartum documented in this encounter Care Teams Flight Surveyor Relationship Specialty Start Date End Date Mikala Best, SOLDER TECHNICIAN, TRAY LINE WORKER PCP - General 07/16/10 02/11/12 [address] [place] [address] documented as of this encounter
--- OUTSIDE RECORDS SUMMARY | 2022-03-23 17:34 | XMS_ITS | Encounter Summary ---
:1980 Author Organization [facility] Address [address] [place] [address] Care Team Providers Name Role Phone Mikala Best APRN, CNP Primary Care Provider [phone] Reason for Visit Reason Comments Nausea Encounter Details Date Type Department Care Team Description 09/11/2011 Nurse Triage Allen [place] Obstetrics/Gynecolog y [address] [facility] [address] [place] [address] [place] [address] [phone] (Wo rk) Social History Tobacco Use Types Packs/Day Years Used Date Smoking Tobacco: Never Assessed Sex Assigned at Date Recorded Not on file documented as of this encounter Nursing Notes Francia Herron - 09/11/2011 10:05 AM CDT Protocol: - MORNING [id number] Affirmative: Nausea or vomiting Disposition of Home Care suggested. Patient calling with nausea in at 6 weeks. Patient denies vomiting. Given PN Medications in Guidelines. Discussed with Dr. Amaya. Verbal order given. documented in this encounter Plan of Treatment Not on filedocumented as of this encounter Visit Diagnoses Not on filedocumented in this encounter Care Teams Grain Farmer Relationship Specialty Start Date End Date Mikala Best APRN, CNP PCP - General 07/16/10 02/11/12 [address] [place] [address] documented as of this encounter
--- OUTSIDE RECORDS SUMMARY | 2022-03-23 17:34 | XMS_ITS | Encounter Summary ---
:1980 [facility] Address [address] [place] [address] Care Team Providers Name Role Phone Nasir Mikala URBINA, BONITA Primary Care Provider [phone] Encounter Details Date Type Department Care Team Description 09/04/2011 Lab Visit [place] [facility] First trimester bleeding [address] [place] [address] Social History Tobacco Use Types Packs/Day Years Used Date Smoking Tobacco: Never Assessed Sex Assigned at Date Recorded Not on file documented as of this encounter Progress Notes Brenda Munoz LPN - 09/05/2011 10:39 AM CDT Quick Note: Patient has US appointment on 09/11/11 of next week. Allen Amaya - 09/04/2011 3:08 PM CDT Quick Note: Patient notified of normal HCG rise. Will schedule TV ultrasound for viability next week. Order placed. documented in this encounter Miscellaneous Notes Miscellaneous - 05/24/2016 6:00 PM CSTNotes Recorded by Brenda Munoz LPN on 09/05/2011 at 10:39 AMPatient has US appointment on 09/11/11 of next week.------ Notes Recorded by Allen Amaya MD on 09/04/2011 at 3:08 PMPatient notified of normal HCG rise. Will schedule TV ultrasound for viability next week. Order placed. OW ASSISTANT documented in this encounter Plan of Treatment Not on filedocumented as of this encounter Procedures Procedure Name Priority Date/Time Associated Diagnosis Comme nts HCG, QUANTITATIVE, Routine 09/04/2011 7:27 AM First trimester Results for this SERUM CDT bleeding procedure ar e in the results section. documented in this encounter Results (ABNORMAL) HCG, Quantitative, Serum (09/04/2011 7:27 AM CDT) [facility] Method Time Signature HCG For 11,194 (H) 0 - 6 HP CONVERSION mIU/L [...] Time (Source) Location / / Volume Laterality 09/04/2011 7:27 AM 2 CDT 11:14 AM CDT Transcriptions 05/24/2016 6:00 PM CSTNotes Recorded by Brenda Munoz LPN on 09/05/2011 at 10:39 AMPatient has US appointment on 09/11/11 of next week.------Notes Recorded by Allen Amaya MD on 09/04/2011 at 3:08 PM Patient notified of normal HCG rise. Gamaliel salazar schedule TV ultrasound for viability next week. Order placed. Allen Amaya MD LAB_1 Performing Organization Address City/State/ZIP Code Phon e Number HP CONVERSION documented in this encounter Visit Diagnoses Diagnosis First trimester bleeding Unspecified hemorrhage in early pregnanc y, antepartum documented in this encounter Care Teams Television Director Relationship Specialty Start Date End Date Mikala Best APRN, MACHINE SHOP REPAIR TECHNICIAN PCP - General 07/16/10 02/11/12 [address] [place] [address] documented as of this encounter
--- OUTSIDE RECORDS SUMMARY | 2022-03-23 17:34 | XMS_ITS | Encounter Summary ---
:1980 Author Organization [facility] Address [address], [place] [address] Care Team Providers Name Role Phone Mikala Best APRN, CNP Primary Care Provider [phone] Encounter Details Date Type Department Care Team Description 08/18/2011 Lab Visit [place] [facility] Infertility, female, [address] [place], [place] [address] Social History Tobacco Use Types Packs/Day Years Used Date Smoking Tobacco: Never Assessed Sex Assigned at Date Recorded Not on file documented as of this encounter Plan of Treatment Not on filedocumented as of this encounter Procedures Procedure Name Priority Date/Time Associated Diagnosis Comme nts PROGESTERONE Routine 08/18/2011 8:58 AM Infertility, female, R esults for this CDT secondary procedure are i n the results section . documented in this encounter Results PROGESTERONE (08/18/2011 8:58 AM CDT) P athologist Signature Progesterone 21.9 ng/mL HP CONVERSION Comment: Reference Interval for Progesterone in f emales 10 years and older: Follicular phase: ??1.1 ng/mL or less Luteal phase: ?1.0-21.0 ng/mL Mid-Luteal phase: ??6.0-24.0 ng/mL Post-menopausal: ?? 1.0 ng/mL or less first trimester: ?? 9.3-33.2 n g/mL second trimester: ??29.5-50.0 ng/mL third trimester: ?? 83.1-160.0 ng/mL Specimen Anatomical Collection Method Collection Time Receive d Time (Source) Location / / Volume Laterality 08/18/2011 8:58 AM 2 2:39 CDT PM CDT Narrative HP CONVERSION - 08/20/2011 3:21 AM CDT Performed at [facility] [address] [place] [id number] Allen Amaya MD LAB_1 Performing Organization Address City/State/ZIP Code Phon e Number HP CONVERSION documented in this encounter Visit Diagnoses Diagnosis Infertility, female, secondary Female infertility of unspecified origin documented in this encounter Care Teams Brick Loader Relationship Specialty Start Date End Date Mikala Best APRN, FOOD WRITER PCP - General 07/16/10 02/11/12 [address] [place] [address] documented as of this encounter
--- OUTSIDE RECORDS SUMMARY | 2022-03-23 17:35 | XMS_ITS | Encounter Summary ---
:1980 Author Organization [facility] Address [address], [place] [address] Care Team Providers Name Role Phone Nasir Mikala URBINA CNP Primary Care Provider [phone] Reason for Visit Reason Comments FACIAL PAIN Cough Fever Encounter Details Date Type Department Care Team Description 12/24/2010 Hospital Encounter [facility] Osmani Morfin, Cough; [facility] [facility] [place] [address] [phone] [place], [place] [address] (Wo rk) Social History Tobacco Use Types Packs/Day Years Used Date Smoking Tobacco: Never Assessed Sex Assigned at Date Recorded Not on file documented as of this encounter Last Filed Vital Signs Vital Sign Reading Time Taken Comments Blood Pressure 108/71 12/24/2010 8:14 PM CDT Pulse 78 12/24/2010 8:14 PM CDT Temperature 36.9 ??C (98.4 ??F) 12/24/2010 8:14 PM CDT Respiratory Rate 16 12/24/2010 8:14 PM CDT Oxygen Saturation 99% 12/24/2010 8:14 PM CDT Inhaled Oxygen Concentration - - Weight - - Height - - Body Mass Index - - documented in this encounter Medications at Time of Discharge Medication Sig Dispensed Refills Start Date End Date doxycycline (aka Take 1 capsule by 20 capsule 0 12/24/2010 0 01/03/2011 VIBRAMYCIN) capsule mouth 2 times daily for 10 days. guaiFENesin-codeine (aka Take 5 mLs by mouth 120 mL 0 01/28/2011 ROBITUSSIN AC) 100-10 at bedtime; may MG/5ML oral liquid repeat x 1. valACYclovir (AKA Take 1 tablet by 30 6 05/24/2009 0 04/17/2011 VALTREX) 1 G tablet mouth as needed. LW Addl Instr:As needed for outbreaks documented as of this encounter ED Notes Osmani Morfin PA-C - 12/24/2010 8:55 PM CDT SUBJECTIVE: Lacey Nolasco is a 30 y.o.female presenting to urgent care for evaluation of cough and sinus congestion. Symptoms started about a week ago. Seen be getting worse. Cough is more productive. Some facial pressure. No recent illnesses. Nonsmoker. Adverse Drug Reactions: Review of patient's allergies indicates no known allergies. Medications: doxycycline, valtrex, and guaifenesin-codeine Past medical History: History reviewed. No pertinent past medical history. Family History: History reviewed. No pertinent family history. Social History: History Substance Use Topics ??? Smoking status: Never Smoker ??? Smokeless tobacco: Not on file ??? Alcohol Use: 0.0 oz/week 0-1 Glasses of wine per week Alcoholic Drinks/day: Amount:1-2 drinks; Freq:2-4/Month ; Review of Systems: All systems were reviewed and found to be negative except as noted below. OBJECTIVE: General: NAD Skin: Mucous membranes are moist, no sign of dehydration. Head: Normocephalic. Maxillary sinuses are tender to palpation without obvious swelling. Eyes: PERRLA, full EOM. External exams normal. Ears: Normal pinnae, canals, and TM's. Nose: Patent, without deformity, but with some rhinorrhea. Throat: Postnasal drainage noted. Moist mucous membranes without lesions, erythema, or exudate. Neck: Supple. Respiratory: Normal respiratory effort. Bilateral mild rhonchi. No rales. Heart: RR without murmurs, rubs, or gallops. Vital Signs: BP 108/71 Pulse 78 Temp(Src) 36.9 ??C (98.4 ??F) (Oral) Resp 16 SpO2 99% X-Rays: None Labs: Labs Reviewed - No data to display ASSESSMENT: 1. Cough (786.2) 2. Sinus pain (478.19EA) PLAN: Medications doxycycline (VIBRAMYCIN) 100 mg capsule (not administered) guaifenesin-codeine (ROBITUSSIN AC) 10-100 mg/5 mL syrup (not administered) Side effects were discussed. Increase clear fluid intake. Symptomatic care, plenty of fluids, monitor for fever, chills, chest pain, or shortness of breath. RTC p.r.n. documented in this encounter Miscellaneous Notes Medication History - Eloy Vernon MD - 12/24/2010 8:55 PM CDT INPATIENT MEDS Encounter Date: 12/24/10 guaifenesin-codeine (ROBITUSSIN AC) 10-100 mg/5 mL syrup Start Date:12/24/10, End Date:01/28/11, Frequency:AT BEDTIME MAY REPEAT X1 *No Administrations Recorded doxycycline (VIBRAMYCIN) 100 mg capsule Start Date:12/24/10, End Date:01/03/11, Frequency:2 TIMES DAILY *No Administrations Recorded documented in this encounter Plan of Treatment Not on filedocumented as of this encounter Visit Diagnoses Diagnosis Cough Sinus pain Other diseases of nasal cavity and sinus es documented in this encounter Care Teams Zipper Measurer Relationship Specialty Start Date End Date Mikala Best APRN, INSIDE TESTER PCP - General 07/16/10 02/11/12 [address] [place] [address] documented as of this encounter
--- OUTSIDE RECORDS SUMMARY | 2022-03-23 17:35 | XMS_ITS | Encounter Summary ---
:1980 Author Organization [facility] Address [address] [address] Care Team Providers Name Role Phone Mikala Best APRN, CNP Primary Care Provider [phone] Reason for Visit Reason Comments RESULTS, TEST Encounter Details Date Type Department Care Team Description 10/16/2010 Office Visit Allen Tam Secondary dysmenorrhea; Obstetrics/Gynecolog MD Kiran Fibroids, intramural y [address] [address] [place], [place] [address] [place] [address] [phone] Social History Tobacco Use Types Packs/Day Years Used Date Smoking Tobacco: Never Assessed Sex Assigned at Date Recorded Not on file documented as of this encounter Last Filed Vital Signs Vital Sign Reading Time Taken Comments Blood Pressure 100/70 10/16/2010 4:23 PM CDT Pulse - - Temperature - - Respiratory Rate - - Oxygen Saturation - - Inhaled Oxygen Concentration - - Weight 78 kg (172 lb) 10/16/2010 4:23 PM CDT Height - - Body Mass Index 27.76 05/24/2009 4:20 PM SENIOR CORE JAVA DEVELOPER documented in this encounter Progress Notes Allen Amaya - 10/16/2010 5:05 PM CDT 30 yo female P1 with a 6 month history of worsening dysmenorrhea and menorrhagia seen 1 weekago by Amanda Fowler. Ultrasound showed 2 small (1.3 and 1.8 cm) intramural fibroids but was o/w unremarkable. Results reviewed with pt. Pt also expresses some concern re endometriosis. The diagnosis and management of which were discussed. She is actively pursuing at this time therefore hormonal therapies would be limited. Vicodin was given for her dysmenorrhea Will schedule HSG to evaluate cavity and tubal patency. Discussed role of laparoscopy if symptoms persist and has not occurred. Exam deferred HSG with next cycle. documented in this encounter Plan of Treatment Not on filedocumented as of this encounter Visit Diagnoses Diagnosis Secondary dysmenorrhea Dysmenorrhea Fibroids, intramural Intramural leiomyoma of uterus documented in this encounter Care Teams Superintendent Marine Relationship Specialty Start Date End Date Mikala Best APRN, PRODUCTION POSTING CLERK PCP - General 07/16/10 02/11/12 [address] [address] [place] [address] documented as of this encounter
--- OUTSIDE RECORDS SUMMARY | 2022-03-23 17:35 | XMS_ITS | Encounter Summary ---
:1980 Author Organization [email or web address] Address [address] [place] [address] Care Team Providers Name Role Phone Mikala Best APRN, CNP Primary Care Provider [phone] Reason for Visit Reason Comments Other Encounter Details Date Type Department Care Team Description 10/05/2010 Telephone [place] [facility]ne[facility] Kady Hernández, LEELA Other [address] [place] [address] Social History Tobacco Use Types Packs/Day Years Used Date Smoking Tobacco: Never Assessed Sex Assigned at Date Recorded Not on file documented as of this encounter Progress Notes Kady Hernández, LEELA - 10/05/2010 12:34 PM CDT Pt. states the last 4-5 months gets really severe pain w/ periods, much worse cramping than ever before and worsens each month. Is not on any OCP or any control currently, thinking of trying to conceive and would like to get things checked out. Denies bleeding or severe pain at this time. Appt. scheduled for evaluation w/ Amanda Stockton 6.28.11 @ 0700. Note complete. Created on 05Oct2010 12:34pm by KDAY HERNÁNDEZ documented in this encounter Plan of Treatment Not on filedocumented as of this encounter Visit Diagnoses Not on filedocumented in this encounter Care Teams Hydrometeorology Teacher Relationship Specialty Start Date End Date Eaton, Mikala, CENTRAL OFFICE FRAME WIRER, GENERATOR ASSEMBLER PCP - General 07/16/10 02/11/12 [address] [place] [address] documented as of this encounter
--- OUTSIDE RECORDS SUMMARY | 2022-03-23 17:35 | XMS_ITS | Encounter Summary ---
:1980 Author [facility] Address [address] [place] [address] Care Team Providers Name Role Phone Bevjenny Mikala URBINA CNP Primary Care Provider [phone] Encounter Details Date Type Department Care Team Description 09/28/2010 PN Conversion Only [place] [address] [facility] [address] [place] [id number] [place] [address] (Wo rk) Social History Tobacco Use Types Packs/Day Years Used Date Smoking Tobacco: Never Assessed Sex Assigned at Date Recorded Not on file documented as of this encounter Plan of Treatment Not on filedocumented as of this encounter Procedures Procedure Name Priority Date/Time Associated Diagnosis Comme nts ECG 12 [facility] Routine 09/28/2010 3:53 PM Res ults for this CDT procedure are i n the results section. documented in this encounter Results ECG 12 lead clinic (09/28/2010 3:53 PM CDT) Specimen (Source) Anatomical Collection Method Collection Time Re ceived Time Location / / Volume Laterality 09/28/2010 3:53 PM CDT Narrative PN [facility] - 09/28/2010 3:53 PM CDT Normal sinus rhythm Normal ECG No previous ECGs available Imr Conversion PN ECG ORDERABLES Performing Organization Address City/State/ZIP Code Phon e Number PN [facility] documented in this encounter Visit Diagnoses Not on filedocumented in this encounter Care Teams Director Global Development Relationship Specialty Start Date End Date Eaton, Mikala, RESIDENTIAL TEAM LEADER, HAND TURNER PCP - General 07/16/10 02/11/12 [address] [address] [place] [address] documented as of this encounter
--- OUTSIDE RECORDS SUMMARY | 2022-03-23 17:35 | XMS_ITS | Encounter Summary ---
:1980 Author Organization [facility] Address [address] [address] Care Team Providers Name Role Phone Mikala Best APRN, CNP Primary Care Provider [phone] Encounter Details Date Type Department Care Team Description 08/14/2010 PN Conversion Only [place] Alejandra Linares PA-C [address] [address] [place], [place] [phone] (Wo rk) Social History Tobacco Use Types Packs/Day Years Used Date Smoking Tobacco: Never Assessed Sex Assigned at Date Recorded Not on file documented as of this encounter Plan of Treatment Not on filedocumented as of this encounter Visit Diagnoses Not on filedocumented in this encounter Care Teams Varitypist Relationship Specialty Start Date End Date Mikala Best APRN, CNP PCP - General 07/16/10 02/11/[address] [place] [address] documented as of this encounter
--- OUTSIDE RECORDS SUMMARY | 2022-03-23 17:35 | XMS_ITS | Encounter Summary ---
:1980 Author Organization [facility] Address [address] [address] Care Team Providers Name Role Phone Mikala Best APRN, CNP Primary Care Provider [phone] Encounter Details Date Type Department Care Team Description 11/05/2010 Imaging [facility] [address] [place] [address] Social History Tobacco Use Types Packs/Day Years Used Date Smoking Tobacco: Never Assessed Sex Assigned at Date Recorded Not on file documented as of this encounter Plan of Treatment Not on filedocumented as of this encounter Visit Diagnoses Not on filedocumented in this encounter Care Teams Change Consultant Relationship Specialty Start Date End Date Mikala Best APRN, CNP PCP - General 07/16/10 02/11/12 [address] [facility] [place], [place] [id number] documented as of this encounter
--- OUTSIDE RECORDS SUMMARY | 2022-03-23 17:35 | XMS_ITS | Encounter Summary ---
:1980 Author Organization [facility] Address [address] [place] [address] Care Team Providers Name Role Phone Mikala Best APRN, CNP Primary Care Provider [phone] Reason for Visit Reason Comments Prior Authorization Request Encounter Details Date Type Department Care Team Description 01/16/2011 Telephone [facility] Jony Jesus MD Prior Authorization [facility] Orthopedics [address] [facility] Request [address] [facility], [place]. [address] [place] [address] Social History Tobacco Use Types Packs/Day Years Used Date Smoking Tobacco: Never Assessed Sex Assigned at Date Recorded Not on file documented as of this encounter Nursing Notes Steff Ríos RN - 01/16/2011 1:22 PM CDT pt called stating she has an MRI set up for Sunday 01/21 and that her insurance requires prior approval, pls call her insurance, [employer] at [phone] to get approval. Please call her once calledin and approved at [phone]. documented in this encounter Plan of Treatment Not on filedocumented as of this encounter Visit Diagnoses Not on filedocumented in this encounter Care Teams General Car Supervisor Yard Relationship Specialty Start Date End Date Mikala Best APRN, CNP PCP - General 07/16/10 02/11/12 [address] [address] [place] [address] documented as of this encounter
--- OUTSIDE RECORDS SUMMARY | 2022-03-23 17:35 | XMS_ITS | Encounter Summary ---
:1980 Author Organization [facility] Address [address], [place] [address] Care Team Providers Name Role Phone Bevjenny Mikala URBINA CNP Primary Care Provider [phone] Reason for Visit Reason Comments FACIAL PAIN Encounter Details Date Type Department Care Team Description 04/27/2011 Hospital Encounter [facility] Freida Goel A cute pharyngitis; Care Acute sinusitis, unspecified [address] [address] [phone] Social History Tobacco Use Types Packs/Day Years Used Date Smoking Tobacco: Never Assessed Sex Assigned at Date Recorded Not on file documented as of this encounter Last Filed Vital Signs Vital Sign Reading Time Taken Comments Blood Pressure 110/78 04/27/2011 11:52 AM HUMAN SERVICES CASE MANAGER Pulse 100 04/27/2011 11:52 AM HUMAN SERVICES CASE MANAGER Temperature 37.4 ??C (99.3 ??F) 04/27/2011 11:52 AM HUMAN SERVICES CASE MANAGER Respiratory Rate 20 04/27/2011 11:52 AM HUMAN SERVICES CASE MANAGER Oxygen Saturation - - Inhaled Oxygen Concentration - - Weight - - Height - - Body Mass Index - - documented in this encounter Medications at Time of Discharge Medication Sig Dispensed Refills Start Date End Date amoxicillin-clavulanate Take 1 tablet by 20 tablet 0 201105/07/2011 (aka AUGMENTIN) tablet mouth 2 times daily for 10 days. documented as of this encounter Progress Notes Freida Goel MD - 04/27/2011 6:47 PM CST Progress Notes signed by Freida Goel MD at 05/16/11914 Author: Freida Goel MD Service: (none) Author Type: Physician Filed: 05/16/11914 Note Time: 04/27/111846 Status: Signed Mineral Engineer: Freida Goel MD (Physician) NAME: SHAMIR NOLASCO MR#: [id number] CSN: [id number] AUTHENTICATING CLINICIAN: Freida Goel MD CONFIRM #: [id number] LOC: 520 CLINIC PROGRESS NOTE DATE OF VISIT: 04/27/2011 : 1980 CHIEF COMPLAINT: Possible sinus infection. HPI: Pleasant 31-year-old comes in today complaining of a possible sinus infection. Patient says she has had a little bit of a sore throat and she wants to be checked for strep because her daughter has strep. Her ears have hurt. She has a lot of sinus congestion. This has been going on for 5-6 days. Low grade fever. Some postnasal drip. Has not had much of a cough. PAST MEDICAL HISTORY: Herpes simplex, dysmenorrhea. PAST SURGICAL HISTORY: Reviewed through [facility]. MEDICATIONS: Reviewed through [facility]. ALLERGIES: Ambien. OBJECTIVE: Temperature 99.4, pulse 100, respirations 20, blood pressure 110/78. GENERAL: Alert and oriented, no apparent distress. Tympanic membranes reveal no sign of infection. Sinuses are tender in the maxillary region. Nares reveal swollen erythematous turbinates. Oropharynx is pink and moist, thick green postnasal drip. LUNGS: Clear to auscultation bilaterally. HEART: Regular without murmurs, rubs or gallops. ABDOMEN: Soft, nontender. SKIN: No rash or cyanosis. Rapid strep screen is negative. ASSESSMENT: Sinusitis. PLAN: Augmentin 875 one p.o. b.i.d. x10 days. Rest, fluids, ibuprofen and Tylenol. Followup if symptoms persist or worsen. Should use Neti-Pot or nasal saline rinses, and patient is in agreement with the plan. KMM:RAMIN C: CONFIRM #: [id number] N SERVICES CASE MANAGER documented in this encounter ED Notes Freida Goel MD - 04/27/2011 12:28 PM CST This office note has been dictated. documented in this encounter Miscellaneous Notes Medication History - Eloy Vernon MD - 04/27/2011 12:29 PM CST INPATIENT MEDS Encounter Date: 04/27/11 amoxicillin-clavulanate (AUGMENTIN) 875-125 mg per tablet Start Date:04/27/11, End Date:05/07/11, Frequency:2 TIMES DAILY *No Administrations Recorded N SERVICES CASE MANAGER documented in this encounter Plan of Treatment Not on filedocumented as of this encounter Procedures Procedure Name Priority Date/Time Associated Diagnosis Comme nts BETA STREP FOLLOWUP Routine 04/27/2011 1:00 PM Re sults for this HUMAN SERVICES CASE MANAGER procedure are i n the results section. RAPID STREP SCREEN STAT 04/27/2011 11:57 AM Acute pharyngit is Results for this WAIVED HUMAN SERVICES CASE MANAGER procedure are i n the results section. documented in this encounter Results Beta Strep Followup (04/27/2011 1:00 PM HUMAN SERVICES CASE MANAGER) [facility] Method Time Signature Strep Screen No beta HP CONVERSION hemolytic Strep Group A isolated. Comment: ? ORDERED BY: FREIDA GOEL SOURCE: Throat ? COLLECTED: ??04/27/11 13:00 ? PLATED: ? 04/27/11 13:00 Culture Strep, Follow up from Rapid Test ?? FINAL ? 04/28/11 10:20 No beta hemolytic Strep Group A isolate d. Specimen (Source) Anatomical Collection Method Collection Time Re ceived Time Location / / Volume Laterality Throat: 04/27/2011 1:00 PM HUMAN SERVICES CASE MANAGER Freida Goel MD LAB_1 Performing Organization Address [facility] Phon e Number HP CONVERSION Rapid Strep Screen Waived (04/27/2011 11:57 AM HUMAN SERVICES CASE MANAGER) Component Value Ref Test Analysis Performed At [facility] Range Method Time Signature Rapid Strep Test performed HP CONVERSIO N Screen Waived by:Say Rapid Strep Negative for HP CONVERSION Screen Waived Streptococcus group A Comment: ? ORDERED BY: FREIDA GOEL SOURCE: Throat ? COLLECTED: ??04/27/11 11:57 ? PLATED: ? 04/27/11 13:00 Rapid Strep Screen Waived ?FINAL ? 04/27/11 13:01 ??Test performed by:Say ? Negative for Streptococcus group A Specimen (Source) Anatomical Collection Method Collection Time Re ceived Time Location / / Volume Laterality Throat: 04/27/2011 11:57 AM HUMAN SERVICES CASE MANAGER Narrative HP CONVERSION - 04/27/2011 1:01 PM HUMAN SERVICES CASE MANAGER Performed at [facility], [address] [place] [address] Freida Goel MD LAB_1 Performing Organization Address [facility] Phon e Number HP CONVERSION documented in this encounter Visit Diagnoses Diagnosis Acute pharyngitis Acute sinusitis, unspecified documented in this encounter Care Teams Oral Therapist Relationship Specialty Start Date End Date Mikala Best, YARD LABORER, FOOT CASTER PCP - General 07/16/10 02/11/[address] [place] [address] [place] [address] documented as of this encounter
--- OUTSIDE RECORDS SUMMARY | 2022-03-23 17:35 | XMS_ITS | Encounter Summary ---
:1980 Author Organization [facility] Address [address] [place] [address] Care Team Providers Name Role Phone Mikala Best APRN, CNP Primary Care Provider [phone] Reason for Visit Reason Comments Prior Authorization Request Encounter Details Date Type Department Care Team Description 04/09/2011 Telephone Allen Tam Prior Aut horization Obstetrics/Gynecolog MD Kiran Request y [address] [facility] [address] [place] [address] [place] [address] [phone] Social History Tobacco Use Types Packs/Day Years Used Date Smoking Tobacco: Never Assessed Sex Assigned at Date Recorded Not on file documented as of this encounter Nursing Notes Yolanda Ling - 04/09/2011 1:30 PM CST 04/23/11 Surgery date - [id number] Dx 625.9/628.9 is approved from 04/04-07/02. Referal# [id number] IOVASCULAR DISEASE SPECIALIST documented in this encounter Plan of Treatment Not on filedocumented as of this encounter Visit Diagnoses Not on filedocumented in this encounter Care Teams Enzyme Chemist Relationship Specialty Start Date End Date Mikala Best APRN, CNP PCP - General 07/16/10 02/11/[address] [place] [address] documented as of this encounter
--- OUTSIDE RECORDS SUMMARY | 2022-03-23 17:35 | XMS_ITS | Encounter Summary ---
:1980 Author Organization [facility] Address [address] [address] Care Team Providers Name Role Phone Bevjenny Mikala URBINA CNP Primary Care Provider [phone] Reason for Visit Reason Comments Other Encounter Details Date Type Department Care Team Description 09/26/2010 Telephone [facility] Shamir Blair [place] Other [address] [place] [address] Social History Tobacco Use Types Packs/Day Years Used Date Smoking Tobacco: Never Assessed Sex Assigned at Date Recorded Not on file documented as of this encounter Progress Notes Shamir Pepper RN - 09/26/2010 10:30 AM CDT CLINICIAN FOLLOW-UP: none IMPRESSION: Trauma-Shoulder. SYMPTOMS: Pt calling with c/o left shoulder pain. She began with neck pain a couple weeks ago, which then became shoulder pain. Does not recall a specific injury. She has full range of motion and is able to complete ADLs. She does have intermittent numbness in that arm, but states even during this she is able to use her hand normally. She rates her pain 4-5/10. She has tried a muscle relaxer from an old prescription and Tylenol/ibuprofen, but nothing has been helpful. Denies emergent symptoms Problem List: reviewed in electronic medical record. CARE ADVICE: TREATMENT OF SPRAINS AND STRAINS: Apply crushed ICE packs for 10-20 minutes 4 times a day. PAIN MEDICATION: - For pain relief, take acetaminophen or ibuprofen. - ACETAMINOPHEN (e.g., Tylenol): The dose is 650 mg by mouth every 4 hours or 1000 mg by mouth every 6 hours. Maximum dose per day = 4000 mg. - IBUPROFEN (e.g., Motrin, Advil): The dose is 400 mg by mouth every 6 hours or 600 mg by mouth every 8 hours. - CAUTION: Do not take ibuprofen if you have stomach problems, kidney disease, are , or have been told by your doctor to avoid this type of anti-inflammatory drug. Do not take ibuprofen for more than 7 days without consulting your doctor. - CAUTION: Do not take acetaminophen if you have liver disease. - Read the package instructions thoroughly on all medications that you take. EXPECTED COURSE: Pain and swelling usually begin to improve 2 or 3 days after an injury. Swelling is usually gone in 7 days. Pain may take 2 weeks to completely resolve. CALL BACK IF: - Pain becomes severe. -You become worse. Advised to call back if any of the following occur: symptoms worsen or persist, any other questions or concerns. PLAN: SCHEDULE APPOINTMENT WITHIN 12-24 HOURS Patient/Caller DISAGREES with plan and denies additional questions. She prefers appt for Friday afternoon (in 2 days) because of her work schedule. References Used: [facility] Adult Telephone Protocols--Trauma-Shoulder. Call Complete. *SH~THOMP~TRAUMSHLD~ Created on 26Sep2010 10:30am by SHAMIR PEPPER documented in this encounter Plan of Treatment Not on filedocumented as of this encounter Visit Diagnoses Not on filedocumented in this encounter Care Teams Application Systems Architect Relationship Specialty Start Date End Date Mikala Best APRN, LOAD CHECKER PCP - General 07/16/10 02/11/12 [address] [address] [place] [address] documented as of this encounter
--- OUTSIDE RECORDS SUMMARY | 2022-03-23 17:35 | XMS_ITS | Encounter Summary ---
:1980 Author Organization [facility] Address [address] [address] Care Team Providers Name Role Phone Nasir Mikala URBINA CNP Primary Care Provider [phone] Reason for Visit Reason Comments PRE-OP EXAM Encounter Details Date Type Department Care Team Description 05/27/2011 Pre-Op Visit Roxie Hale Preo p examination (Primary Dx); [facility] [address] [place] [address] [place], [place] [phone] (Wo rk) Social History Tobacco Use Types Packs/Day Years Used Date Smoking Tobacco: Never Assessed Sex Assigned at Date Recorded Not on file documented as of this encounter Last Filed Vital Signs Vital Sign Reading Time Taken Comments Blood Pressure 108/66 05/27/2011 1:52 PM SECURITY SYSTEM SALES CONSULTANT Pulse 64 05/27/2011 1:52 PM SECURITY SYSTEM SALES CONSULTANT Temperature 36.9 ??C (98.4 ??F) 05/27/2011 1:52 PM SECURITY SYSTEM SALES CONSULTANT Respiratory Rate 20 05/27/2011 1:52 PM SECURITY SYSTEM SALES CONSULTANT Oxygen Saturation - - Inhaled Oxygen Concentration - - Weight 78.6 kg (173 lb 3.2 oz) 05/27/2011 1:52 PM SECURITY SYSTEM SALES CONSULTANT Height 166.4 cm (5' 5.5) 05/27/2011 1:52 PM SECURITY SYSTEM SALES CONSULTANT Body Mass Index 28.38 05/27/2011 1:52 PM SECURITY SYSTEM SALES CONSULTANT documented in this encounter OR Notes H&P - Roxie Jiang MD - 05/27/2011 4:01 PM CST PREOPERATIVE ASSESSMENT Age: 31 y.o. Sex: female Chief Complaint Patient presents with ??? Pre-op Exam DOS 06/17/[address] Medina @ [facility] for disc arthroplasty C6-C7 Primary care physician: Mikala Best, CELLAR PACKER [phone] CHIEF COMPLAINT/HISTORY OF PRESENT ILLNESS Patient has been having left C6 radicular symptoms related to DJD of the cervical spine. Risk Factors/Review of Systems: (Please see flowsheets for details) Cardiovascular risks negative Renal risks negative Neuro risks negative GI risks negative Pulmonary risks negative Endocrine/Nutrition risks negative Hematologic Disease risks negative Musculoskeletal/Skin risks positive for: Arthritis: Arthritis type: osteoarthritis Recommendations: Consider K+, creat for chronic NSAID use Mental Health risks positive for: EtOH use: Amount: 1-2 drinks/week Recommendations: History of withdrawl or DTs: consider CIWA protocol Other risk factors positive for: Women who may be : Recommendations: Urine test Summary of recommendations: Recommendations: Consider K+, creat for chronic NSAID use Recommendations: History of withdrawl or DTs: consider CIWA protocol Recommendations: Urine test Complete review of systems is otherwise negative. Past Medical History Diagnosis Date ??? Cervical radiculopathy at C6 ??? Endometriosis ??? Acne vulgaris ??? DJD (degenerative joint disease) of cervical spine Past Surgical History Procedure Date ??? Tonsillectomy and adenoidectomy LW Problem: Tonsillectomy & Adenoidectomy S/p LW Onset: 1983 ??? Laparoscopy 04/25 ??? [place] tooth extraction Family History Problem Relation Age of Onset ??? CAD Father ??? High Cholesterol Father ??? High Cholesterol Mother History Social History ??? Marital Status: Spouse Name: N/A Number of Children: 1 ??? 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 Smoking status: Never Smoker ??? Smokeless tobacco: Not on file ??? Alcohol Use: 0.0 oz/week 0-1 Glasses of wine per week Alcoholic Drinks/day: Amount:1-2 drinks; Freq:2-4/Month ; ??? Drug Use: No ??? Sexually Active: Yes -- Male partner(s) Control/ Protection: Condom Other Topics Concern ??? [place] Water Yes ??? Exercise Yes ??? Seat Belt Yes ??? Special Diet No ??? Weight Concern No Social History Narrative ??? No narrative on file Current outpatient prescriptions Medication Sig Dispense Refill ??? tretinoin (RETIN-A) 0.05 % cream Apply topically. a pea sized amount every 3rd night; increase gradually to nightly as tolerated; use a noncomedogenic moisturizer spf >30 45 g 2 Allergies Allergen Reactions ??? Deejay Stoddard Blacks out PHYSICAL EXAMINATION Temp: 98.5 ??F (36.9 ??C) (05/27/111351) Pulse: 64 (05/27/111351) Resp: 20 (05/27/111351) BP: 108/66 mmHg (05/27/111351) Height: 5' 5.5 (166.4 cm) (05/27/111351) Weight: 173 lb 3.2 oz (78.563 kg) (05/27/111351) BMI (Calculated): 28.44 (05/27/111351) General Appearance: Alert, cooperative, no distress, appears [...] no enlargement/tenderness/nodules; no carotid bruit or JVD Lungs: Clear to auscultation bilaterally, respirations unlabored [...] texture, turgor normal, no rashes or lesions Neurologic: CNII-XII intact, normal strength, sensation and reflexes throughout TEST RESULTS AND DATE EKG done: No Labs done: Yes: date and results: Recent Results (from the past 24 hour(s)) LAB COMPLETE BLOOD COUNT W/DIFF Collection Time 05/27/11 2:31 PM Component Value Range ??? White Blood Cell Count 6.5 3.8-11.0 (k/cmm) ??? Red Blood Cell Count 4.19 3.70-5.20 (m/cmm) ??? Hemoglobin 12.4 11.8-15.5 (g/dL) ??? Hematocrit 36.8 35.0-46.0 (%) ??? Mean Corpuscular Volume 88.0 80.0-100.0 (fL) ??? RDW 13.8 11.0-15.0 (%) ??? Platelet Count 192 140-450 (k/cmm) N/O LAB DIFFERENTIAL Collection Time 05/27/11 2:31 PM Component Value Range ??? Absolute Neutrophils 4.2 1.8-8.0 (k/cmm) ??? Absolute Lymphocytes 1.6 1.1-4.0 (k/cmm) ??? Absolute Monocytes 0.5 0.2-0.8 (k/cmm) ??? Absolute Eosinophils 0.2 0.0-0.5 (k/cmm) ??? Absolute Basophils 0.0 0.0-0.2 (k/cmm) LAB TEST SCREEN URINE Collection Time 05/27/11 2:34 PM Component Value Range ??? Urine Test Negative OTHER GUIDELINES Medication Adjustment Recommendations - Patients should take ALL medications on the day of surgery EXCEPT: ?? Plavix - hold 1 week ?? Coumadin - hold 5 days, restart day of surgery if possible ?? Lovenox - hold 24 hours ?? Aspirin - hold 7 days; continue for patients at high risk for cardiovascular complications exceptPlastics/Neuro/ENT. Consult surgeon if unsure. * Cataract patients may stay on any/all blood thinners including aspirin unless otherwise specified by credit consultant. NPO Guidelines ?? No solid foods after midnight the day before surgery ?? Clear liquids - 4 hours (water, black coffee, clear tea ONLY) ?? Non-human milk - 6 hours ?? Breast milk - 4 hours ?? Formula - 6 hours PREOPERATIVE ASSESSMENT SUMMARY - Please include recommendations for stopping and changing medications prior to surgery. Day of surgery testing: none Medication recommendations: no NSAIDS for 1 week prior to surgery. RECOMMENDATIONS PROCEED WITH SURGERY: Yes Additional screening recommended: no Consult (Cardiology/other): no Additional test results attached: none ABOVE RECOMMENDATIONS WERE REVIEWED WITH PATIENT: no Beta argelia protocol ordered: no Insulin/Diabetes orders initiated: no Continuous O2 Sat monitoring post op orders initiated: no Other: no This patient has been examined by me today and has been found to be a suitable candidate for surgery, with exceptions noted above, if pending labs are normal. documented in this encounter Plan of Treatment Not on filedocumented as of this encounter Visit Diagnoses Diagnosis Preop examination - Primary Preoperative examination, unspecified DJD (degenerative joint disease) of cerv ical spine ([facility]) Cervical spondylosis without myelopathy documented in this encounter Care Teams Head Concierge Relationship Specialty Start Date End Date Mikala Best, LIBRARIAN SPECIAL LIBRARY, SOLDERER ASSEMBLER PCP - General 07/16/10 02/11/12 [address] [place] [address] documented as of this encounter
--- OUTSIDE RECORDS SUMMARY | 2022-03-23 17:35 | XMS_ITS | Encounter Summary ---
:1980 Author [facility] Address [address] [address] Care Team Providers Name Role Phone Mikala Best APRN, CNP Primary Care Provider [phone] Reason for Visit Reason Comments Menstrual Problems Encounter Details Date Type Department Care Team Description 04/03/2011 Office Visit Allen Tam Irregular intermenstrual bleeding; Obstetrics/Gynecolo MD Kiran Dysmenorrhea gy [address] [address] [place], [place] [address] [place] [address] Social History Tobacco Use Types Packs/Day Years Used Date Smoking Tobacco: Never Assessed Sex Assigned at Date Recorded Not on file documented as of this encounter Last Filed Vital Signs Vital Sign Reading Time Taken Comments Blood Pressure 116/78 04/03/2011 2:07 PM MILITARY EXCHANGE WIRELESS MANAGER Pulse 87 04/03/2011 2:07 PM MILITARY EXCHANGE WIRELESS MANAGER Temperature - - Respiratory Rate - - Oxygen Saturation - - Inhaled Oxygen Concentration - - Weight 78.9 kg (174 lb) 04/03/2011 2:07 PM MILITARY EXCHANGE WIRELESS MANAGER Height - - Body Mass Index 28.08 01/28/2011 10:13 AM CDT documented in this encounter Progress Notes Allen Amaya - 04/03/2011 2:56 PM CST Progress Notes signed by Allen Amaya MD at 04/03/11 5935 Author: Allen Amaya MD Service: (none) Author Type: Physician Filed: 04/03/11 2137 Note Time: 04/03/115 Status: Signed Materials Associate: Allen Amaya MD (Physician) NAME: SHAMIR NOLASCO MR#: [id number] CSN: [id number] AUTHENTICATING CLINICIAN: Allen Amaya MD CONFIRM #: [id number] LOC: 512 CLINIC PROGRESS NOTE DATE OF VISIT: 04/03/2011 : 1980 Shamir Nolasco is a 31-year-old female, para 1-0-0-1, last menstrual period 03/24/2011, who presents for evaluation of dysmenorrhea, inability to conceive for the last six months, as well as some irregular cycles. She has had a longstanding history of painful, irregular periods. Had no trouble conceiving her first child. We had discussed this back in summer. She had a normal hysterosalpingogram. She recently has had three cortisone shots in her neck which she is wondering if this could have played a role in some of her cycle irregularity. She has used ovulation predictor kits in the last several months, and they have indicated ovulation, although most recently her cycles have become irregular again. Her , Sean, was born 1978 and has no antecedent medical history. He is the father of her first child, and again they had no trouble conceiving this child. I discussed with her the basic infertility workup which, in part, has been initiated. I think at this point it would be prudent to proceed with diagnostic laparoscopy to rule out endometriosis or other pelvic pathology as she has significant dysmenorrhea. This was explained in detail and will be scheduled most likely in April. Her will have a semen analysis drawn to rule out any male factor. The use of adjuvant hormonal therapy as well as ovulation induction agents were discussed, although I do not think this would be the prudent course of action at this time, given her specific history. ASSESSMENT: Irregular periods. Severe dysmenorrhea and pelvic pain and infertility. PLAN: Will schedule diagnostic laparoscopy likely after the holidays. Semen analysis to be obtained on . Orders placed in HelpAround. CJS:MEDQ C: CONFIRM #: [id number] TARY EXCHANGE WIRELESS MANAGER documented in this encounter Plan of Treatment Not on filedocumented as of this encounter Visit Diagnoses Diagnosis Irregular intermenstrual bleeding Metrorrhagia Dysmenorrhea documented in this encounter Care Teams Civil Engineer Land Development Relationship Specialty Start Date End Date Mikala Best APRN, BONITA PCP - General 07/16/10 02/11/12 [address] [address] [place] [address] documented as of this encounter
--- OUTSIDE RECORDS SUMMARY | 2022-03-23 17:35 | XMS_ITS | Encounter Summary ---
:1980 Author Organization [facility] Address [address] [place] [address] Care Team Providers Name Role Phone Gilles Bestlie BONITA URBINA Primary Care Provider [phone] Encounter Details Date Type Department Care Team Description 04/29/2010 Office Visit [facility] [place] [address] [place] [address] Social History Tobacco Use Types Packs/Day Years Used Date Smoking Tobacco: Never Assessed Sex Assigned at Date Recorded Not on file documented as of this encounter Last Filed Vital Signs Vital Sign Reading Time Taken Comments Blood Pressure 107/67 04/29/2010 11:07 AM RETAIL COVERAGE MERCHANDISER Pulse 68 04/29/2010 11:07 AM RETAIL COVERAGE MERCHANDISER Temperature 37.1 ??C (98.8 ??F) 04/29/2010 11:07 AM RETAIL COVERAGE MERCHANDISER C: 3 7.1 C Respiratory Rate 14 04/29/2010 11:07 AM RETAIL COVERAGE MERCHANDISER Oxygen Saturation - - Inhaled Oxygen Concentration - - Weight - - Height - - Body Mass Index - - documented in this encounter Progress Notes Luli Carrera MD - 04/29/2010 12:01 AM CST NAME: SHAMIR NOLASCO MR#: [id number] ACCT: [id number] VISIT: [id number] DICTATING CLINICIAN: Luli Carrera MD CONFIRM #: [id number] LOC: 520 CLINIC PROGRESS NOTE DATE OF VISIT: 04/29/2010 : 1980 This 30-year-old female comes in with concern for having vaginal yeast infection. Apparently, she has been having some irritation, feeling itching sensation, and the feeling of swelling in her vaginal area for the past 10 days. She used [id number] vaginal cream Monistat 3 times. She used a 1- day treatment twice, then the last time used 3-day treatment, which she finished about 3 days ago. She comes in today because still continues to have some similar symptoms. She has had yeast vaginitis in the past. No recent use of antibiotic. She is also concerned because she is planning to go on a business trip for 2 weeks, and she wants to get better. PAST MEDICAL HISTORY: Healthy. MEDICATIONS: Reviewed in LastWord. ALLERGIES: None. OBJECTIVE: Temperature 98.8, pulse 68, blood pressure 107/67. She does not smoke. Exam shows patient looking very good. ABDOMEN: Soft, nontender. LUNGS: Clear. CARDIOVASCULAR: Regular rhythm and rate. Normal S1-S2. There is no CVA tenderness. Examination of the genitalia shows no lesions in external genitalia. She does have some whitish matter in vagina. No cervical discharge noted. A wet prep was obtained which was negative for yeast and Trichomonas, but showed rare clue cells. IMPRESSION: 1. Vaginal itching and irritation. 2. Bacterial vaginosis. PLAN: The patient was treated with Flagyl 500 mg p.o. b.i.d. for 7 days. She is requesting some treatment for yeast also as she is going out of town, so for this reason I gave her prescription for Diflucan 150 mg to take once, #2 in case she needs to repeat the treatment. Overall should be rechecked if unusual worsening or follow up primary MD if no improvement is noted. FK:MEDQ C: CONFIRM #: [id number] [place] COVERAGE MERCHANDISER documented in this encounter Plan of Treatment Not on filedocumented as of this encounter Visit Diagnoses Not on filedocumented in this encounter Care Teams Activities Aide Relationship Specialty Start Date End Date Mikala Best APRN, TESTER WASTE DISPOSAL LEAKAGE PCP - General 07/16/10 02/11/12 [address] [address] [place] [address] documented as of this encounter
--- OUTSIDE RECORDS SUMMARY | 2022-03-23 17:35 | XMS_ITS | Encounter Summary ---
:1980 [facility] Address [address] [address] Care Team Providers Name Role Phone Mikala Best APRN, CNP Primary Care Provider [phone] Reason for Visit Reason Comments BLOATED Constipation Sinusitis Nausea Encounter Details Date Type Department Care Team Description 04/30/2011 Hospital Encounter [facility] Guille Wright Abdominal pain, unspecified site; Jacinda Amato MD Fever; [id number] [place] Constipation; [address] [place] [id number] Social History Tobacco Use Types Packs/Day Years Used Date Smoking Tobacco: Never Assessed Sex Assigned at Date Recorded Not on file documented as of this encounter Last Filed Vital Signs Vital Sign Reading Time Taken Comments Blood Pressure 131/83 04/30/2011 4:59 PM SALAD MAKER Pulse 89 04/30/2011 4:59 PM SALAD MAKER Temperature 36.8 ??C (98.2 ??F) 04/30/2011 4:59 PM SALAD MAKER Respiratory Rate 16 04/30/2011 4:59 PM SALAD MAKER Oxygen Saturation - - Inhaled Oxygen Concentration - - Weight - - Height - - Body Mass Index - - documented in this encounter Medications at Time of Discharge Medication Sig Dispensed Refills Start Date End Date amoxicillin-clavulanate Take 1 tablet by 20 tablet 0 201105/07/2011 (aka AUGMENTIN) tablet mouth 2 times daily for 10 days. documented as of this encounter ED Notes Guille Wright MD - 04/30/2011 6:46 PM CST Subjective: Patient ID: Lacey Nolasco is an 31 y.o. female. Chief Complaint: HPI Patient presents to urgent care with ongoing ill feeling. She had a laparoscopic surgery for endometriosis at [facility] 1 week ago. Since her discharge after surgery she has been in the emergency room with nausea and vomiting symptoms sweating and bloating she was given some IV fluids and sent home then 3 days later had continued feeling like fever is noting headache and congestion andsore throat and was diagnosed with sinusitis and started up on Augmentin antibiotic. She has been noting decreased appetite feels nauseated after eating even a small amount. This nausea symptoms and isbeen for a week and not new since antibiotic. She's been eating crackers and some cereal bars and even after eating small amount will get bloated and have increased pain in the abdomen. She hasn't had a bowel movement for 3 days and then today had small pieces of hard bowel moving, no blood or mucus. Urine does not cause pain with voiding or any incontinence, no pain to the back. Denies any cough shortness of breath or wheezing. Relates to sweating profusely at times today, no measured temperature. ROS No narcotics since the emergency room visit 5 days ago. Objective: BP 131/83 Pulse 89 Temp(Src) 36.8 ??C (98.2 ??F) (Oral) Resp 16 LMP 03/24/2011 Physical Exam well-nourished and hydrated female appearing mildly fatigued walking without obvious discomfort. Conjunctiva are noninjected nonicteric. TMs have no acute erythema or fluid. Pharynx without erythema or exudate. Trachea midline without thyromegaly or mass effect. Lungs clear to auscultation and percussion after deep breath, which clears up some crackles in the right base posteriorly. Abdomen is soft increased tympany is noted in the upper abdomen mild tenderness to palpate in the right lower quadrant, bowel sounds are present but seems mildly diminished. Left lower caudate not particularly tender to palpate no suprapubic masses or tenderness. Clinically does not appear dehydrated. X-rays: Chest x-ray PA and lateral does not show acute infiltrate or pleural effusion, no cardiomegaly. Abdomen flat and upright shows moderate gas throughout the colon and also gas in the small bowel with a couple of air-fluid levels to suggest mild ileus there is no free air, moderate stool formed ap pearing is present in the descending colon and small bits in the ascending colon. Procedures Lab: Urinalysis shows some ketones but no evidence of infection. CBC is within normal limits. Assessment: Diagnoses of Abdominal pain, unspecified site, Fever, Constipation, and Postprandial nausea were pertinent to this visit. MDM Plan: Abdominal pain symptoms do to mild ileus and constipation. She is off any further narcotics and havereviewed increased liquids and advancement of the diet. Today have recommended milk of magnesia 2 tablespoons twice a day until bowels moving soft, if fever or worsening of symptoms then rechecking. Patient currently on antibiotic for sinusitis and will continue that, cautioned dosing with meals. documented in this encounter Plan of Treatment Not on filedocumented as of this encounter Procedures Procedure Name Priority Date/Time Associated Diagnosis Comme nts XR ABD FLAT AND Routine 04/30/2011 6:24 PM Abdominal pain, Res ults for this UPRIGHT SALAD MAKER unspecified site procedure are in Fever the results section. XR CHEST 2 VIEWS Routine 04/30/2011 6:23 PM Fever Resul ts for this SALAD MAKER procedure are i n the results section. COMPLETE BLOOD STAT 04/30/2011 6:06 PM Abdominal pain, Resu lts for this COUNT-W/DIFF SALAD MAKER unspecified site procedure are in Fever the results section. DIFFERENTIAL STAT 04/30/2011 6:06 PM Results f or this SALAD MAKER procedure are i n the results section. ELECTROLYTE PANEL STAT 04/30/2011 6:06 PM Abdominal pain, R esults for this SALAD MAKER unspecified site procedure a re in the results section. URINE MICROSCOPIC STAT 04/30/2011 6:00 PM Abdominal pain, R esults for this SALAD MAKER unspecified site procedure are in Fever the results section. URINALYSIS STAT 04/30/2011 6:00 PM Abdominal pain, Result s for this ROUTINE(MICRO IF POS) SALAD MAKER unspecifie d site procedure are in Fever the results section. documented in this encounter Results XR Abd Flat And Upright (04/30/2011 6:24 PM SALAD MAKER) Anatomical Region Laterality Modality Abdomen Other Specimen (Source) Anatomical Location Collection Method / Collectio n Time Received Time / Laterality Volume Impressions 05/01/2011 8:13 AM SALAD MAKER IMPRESSION: ??Negative flat and upright views of the abdomen except for large amount of stool in colon. Narrative 05/01/2011 8:13 AM SALAD MAKER COMPARISON: ??None. FINDINGS: ??Two views were obtained. ??A bdominal gas pattern is unremarkable. ??No suspicious calcificat ions are identified. ??No gross free intraabdominal gas is seen. ??There are no abnormal gas-fluid levels. ??No abnormal soft tissue mass o r organomegaly is noted. Procedure Note Claudio Anderson MD - 09/29/2015 COMPARISON: None. FINDINGS: Two views were obtained. Abdom inal gas pattern is unremarkable. No suspicious calcificatio ns are identified. No gross free intraabdominal gas is seen. There a re no abnormal gas-fluid levels. No abnormal soft tissue mass or organomegaly is noted. IMPRESSION IMPRESSION: Negative flat and upright vi ews of the abdomen except for large amount of stool in colon. Guille Wright MD RAD GD XR Chest 2 Views (04/30/2011 6:23 PM SALAD MAKER) Anatomical Region Laterality Modality Chest, Lung Other Specimen (Source) Anatomical Location Collection Method / Collectio n Time Received Time / Laterality Volume Impressions 05/01/2011 8:12 AM SALAD MAKER IMPRESSION: ??Negative PA and left later al chest. Narrative 05/01/2011 8:12 AM SALAD MAKER COMPARISON: ??None. FINDINGS: ??Two views were obtained. ??T he lungs and costophrenic angles are clear. ??Heart size and pulmo nary vascularity are within normal limits. ??There is no evidence of pneumothorax or pleural effusion. Procedure Note Claudio Anderson MD - 09/29/2015 COMPARISON: None. FINDINGS: Two views were obtained. The l ungs and costophrenic angles are clear. Heart size and pulmona ry vascularity are within normal limits. There is no evidence of p neumothorax or pleural effusion. IMPRESSION IMPRESSION: Negative PA and left lateral chest. Guille Wright MD RAD GD Differential (04/30/2011 6:06 PM SALAD MAKER) P athologist Signature Absolute 4.3 1.8 - 8.0 HP CONVERSION Neutrophils k/cmm Absolute 1.5 1.1 - 4.0 HP CONVERSION Lymphocytes k/cmm Absolute 0.6 0.2 - 0.8 HP CONVERSION Monocytes k/cmm Absolute 0.1 0.0 - 0.5 HP CONVERSION Eosinophils k/cmm Absolute 0.0 0.0 - 0.2 HP CONVERSION Basophils k/cmm Specimen Anatomical Collection Method Collection Time Receive d Time (Source) Location / / Volume Laterality 04/30/2011 6:06 PM 2 6:06 SALAD MAKER PM SALAD MAKER Narrative HP CONVERSION - 04/30/2011 6:17 PM SALAD MAKER Performed at [facility], [address] [place] [address] Guille Wright MD LAB_1 Performing Organization Address [facility] Phon e Number HP CONVERSION Hemogram/Plts/Diff (04/30/2011 6:06 PM SALAD MAKER) athologist Signature White Blood Cell 6.5 3.8 - 11.0 HP CONVERSIO N Count k/cmm Red Blood Cell 4.52 3.70 - HP CONVERSION Count 5.20 m/cmm Hemoglobin 13.4 11.8 - HP CONVERSION 15.5 g/dL Hematocrit 39.3 35.0 - HP CONVERSION 46.0 % Mean Corpuscular 87.0 80.0 - HP CONVERSION Volume 100.0 fL RDW 13.4 11.0 - HP CONVERSION 15.0 % Platelet Count 206 140 - 450 HP CONVERSION k/cmm Specimen Anatomical Collection Method Collection Time Receive d Time (Source) Location / / Volume Laterality 04/30/2011 6:06 PM 2 6:06 SALAD MAKER PM SALAD MAKER Narrative HP CONVERSION - 04/30/2011 6:17 PM SALAD MAKER Performed at [facility], [address] [place] [address] Guille Wright MD LAB_1 Performing Organization Address [facility] Phon e Number HP CONVERSION Electrolyte Panel (04/30/2011 6:06 PM SALAD MAKER) athologist Signature Sodium 137 137 - 147 HP CONVERSION mEq/L Potassium 3.6 3.5 - 5.2 HP CONVERSION mEq/L Chloride 102 98 - 110 HP CONVERSION mEq/L Bicarbonate 30 23 - 33 HP CONVERSION mmol/L Specimen Anatomical Collection Method Collection Time Receive d Time (Source) Location / / Volume Laterality 04/30/2011 6:06 PM 2 6:06 SALAD MAKER PM SALAD MAKER Narrative HP CONVERSION - 04/30/2011 6:30 PM SALAD MAKER Performed at [facility], [address] [place] [address] Guille Wright MD LAB_1 Performing Organization Address [facility] Phon e Number HP CONVERSION URINE MICROSCOPIC (04/30/2011 6:00 PM SALAD MAKER) athologist Signature Urine WBC None seen 0 - 4 /HPF HP CONVERSION Urine RBC None seen 0 - 2 /HPF HP CONVERSION Specimen Anatomical Collection Method Collection Time Receive d Time (Source) Location / / Volume Laterality 04/30/2011 6:00 PM 2 6:08 SALAD MAKER PM SALAD MAKER Narrative HP CONVERSION - 04/30/2011 6:21 PM SALAD MAKER Performed at [facility], [address] [place] [address] Guille Wright MD LAB_1 Performing Organization Address [facility] Phon e Number HP CONVERSION (ABNORMAL) URINALYSIS ROUTINE(MICRO IF POS) (04/30/2011 6:00 PM SALAD MAKER) [facility] gist Method Time Signature Urine Type Urine:clean HP CONVERSION cat Turbidity Clear Clear HP CONVERSION U BILI Negative Negative HP CONVERSION Blood Urine Negative Negative HP CONVERSION Glucose, Negative Neg-30 HP CONVERSION Qualitative U mg/dL Ketones 15 (A) Negative HP CONVERSION Leukocyte Negative Negative HP CONVERSION Esterase Urine Nitrite Urine Negative Negative HP CONVERSION pH Urine 6.0 5.0 - 8.0 HP CONVERSION Protein Urine Negative Neg - Trace HP CONVERSION mg/dL U Specific <=1.005 1.005 - HP CONVERSION [place] 1.030 Urobilinogen Negative Negative HP CONVERSION Urine Eu/dL Specimen Anatomical Collection Method Collection Time Receive d Time (Source) Location / / Volume Laterality Urine: 04/30/2011 6:00 PM 2 6:08 SALAD MAKER PM SALAD MAKER Narrative HP CONVERSION - 04/30/2011 6:21 PM SALAD [place] [address] Guille Wright MD LAB_1 Performing Organization Address City/State/ZIP Code Phon e Number HP CONVERSION documented in this encounter Visit Diagnoses Diagnosis Abdominal pain, unspecified site Fever Fever, unspecified Constipation Postprandial nausea Nausea alone documented in this encounter Care Teams Workers Compensation Claims Examiner Relationship Specialty Start Date End Date Mikala Best APRN, AIR HAMMER STRIPPER PCP - General 07/16/10 02/11/[address] [place] [id number] documented as of this encounter
--- OUTSIDE RECORDS SUMMARY | 2022-03-23 17:35 | XMS_ITS | Encounter Summary ---
:1980 Author Organization [facility] Address [address], [place] [address] Care Team Providers Name Role Phone Gilles Bestlie CARLITOS, BONITA Primary Care Provider [phone] Encounter Details Date Type Department Care Team Description 09/28/2010 Office Visit [facility] Alejandra Hartman PA-C [address] [address] [place] [address] [phone] (Wo rk) Social History Tobacco Use Types Packs/Day Years Used Date Smoking Tobacco: Never Assessed Sex Assigned at Date Recorded Not on file documented as of this encounter Progress Notes Alejandra Cleveland PA-C - 09/28/2010 12:01 AM CDT Progress Notes signed by Alejandra Cleveland PA-C at 10/02/10 1610 Author: Alejandra Cleveland PA-C Service: (none) Author Type: Physician Shoe Salesman Filed: 10/02/10 1614 Note Time: 09/28/10 0001 Status: Signed Shape Carver: Alejandra Cleveland PA-C (Physician Shoe Salesman) NAME: SHAMIR NOLASCO MR#: [id number] ACCT: [id number] VISIT: [id number] DICTATING CLINICIAN: Alejandra Cleveland PA-C CONFIRM #: [id number] LOC: 502 CLINIC PROGRESS NOTE DATE OF VISIT: 09/28/2010 : 1980 Shamir is a 30-year-old female who comes to the clinic today because of neck pain. Symptoms started two and a half weeks ago. She felt the pain in her neck and now since then it has traveled into her shoulder and now down into her arm. Sometimes it feels tingly. She has not had any weakness. She does not recall any injury. She has not had chest pain or shortness of breath. She is using ibuprofen 800 mg b.i.d., which helps a little bit. It is a 9 out of 10 pain at times, it is worse when she types and worse when she drives. 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 PAST MEDICAL HISTORY: Reviewed and updated in the health profile in [facility] today. MEDICATIONS: Reviewed and updated in the health profile in [facility] today. ALLERGIES: Reviewed and updated in the health profile in [facility] today. There is a family history of heart disease including her father who had a heart attack at 64 and both her paternal grandparents also had heart disease. She states that her cholesterol is known to be high. It was last checked about 2 years ago and it was 230. Her LMP is 09/08/2010, so it is too early to know if she is at this time. She is not using any control. OBJECTIVE: VITAL SIGNS: Weight 172, blood pressure 102/70, pulse 72. CONSTITUTIONAL: Sitting comfortably, appears well. EYES: Sclerae, conjunctivae clear. NECK: No tenderness over C-spine. Good range of motion. No tenderness over paravertebral muscles. 5/5 muscle strength upper extremities bilaterally. 2+ biceps reflexes bilaterally. Director Of Marketing Analytics strength strong and equal. LUNGS: Clear to auscultation. HEART: Regular rate and rhythm. DIAGNOSTICS: An EKG is obtained because of her family history of heart disease and the symptoms involving her left arm and the EKG is normal. ASSESSMENT: 1. Cervical radiculopathy. PLAN: Prednisone 20 mg b.i.d. x5 days. Consider PT consultation if symptoms fail to improve. Consider MRI if there is no improvement with PT. Will obtain a fasting cholesterol panel at her convenience. Discussed the importance of risk factor modification because of her family history of heart disease. AMS:MEDQ C: CONFIRM #: [id number] documented in this encounter Plan of Treatment Not on filedocumented as of this encounter Visit Diagnoses Not on filedocumented in this encounter Care Teams Commercial Project Manager Relationship Specialty Start Date End Date Mikala Best APRN, INTERNETWORKING TECHNICIAN PCP - General 07/16/10 02/11/12 [address] [place] [address] documented as of this encounter
--- OUTSIDE RECORDS SUMMARY | 2022-03-23 17:35 | XMS_ITS | Encounter Summary ---
:1980 [facility] Address [address], [place] [address] Care Team Providers Name Role Phone Mikala Best APRN, CNP Primary Care Provider [phone] Reason for Visit Reason Comments PRE-OP EXAM Encounter Details Date Type Department Care Team Description 04/17/2011 Office Visit Allen Tam Preoperat sidra Obstetrics/Gynecolog MD Kiran examination, y [address] unspecified (Primary [address] [place] [address] Dx) [place] [address] [phone] Social History Tobacco Use Types Packs/Day Years Used Date Smoking Tobacco: Never Assessed Sex Assigned at Date Recorded Not on file documented as of this encounter Last Filed Vital Signs Vital Sign Reading Time Taken Comments Blood Pressure 116/67 04/17/2011 2:07 PM LEAD WEB DEVELOPER Pulse 83 04/17/2011 2:07 PM LEAD WEB DEVELOPER Temperature - - Respiratory Rate - - Oxygen Saturation - - Inhaled Oxygen Concentration - - Weight 79.4 kg (175 lb) 04/17/2011 2:07 PM LEAD WEB DEVELOPER Height 167.6 cm (5' 6) 04/17/2011 2:07 PM LEAD WEB DEVELOPER Body Mass Index 28.25 04/17/2011 2:07 PM LEAD WEB DEVELOPER documented in this encounter Progress Notes Allen Amaya - 04/17/2011 3:26 PM CST Pre op visit. Diagnostic scope with possible fulgaration of endometriosis on 04/23/11. See FVR forms. documented in this encounter Plan of Treatment Not on filedocumented as of this encounter Visit Diagnoses Diagnosis Preoperative examination, unspecified - Primary documented in this encounter Care Teams Marketing Technology Coordinator Relationship Specialty Start Date End Date Mikala Best APRN, WATER SAFETY TEACHER PCP - General 07/16/10 02/11/12 [address] [place] [address] documented as of this encounter
--- OUTSIDE RECORDS SUMMARY | 2022-03-23 17:35 | XMS_ITS | Encounter Summary ---
:1980 Author [facility] Address [address] [place] [address] Care Team Providers Name Role Phone Mikala Best APRN, BONITA Primary Care Provider [phone] Reason for Visit Reason Comments Scheduling Question Encounter Details Date Type Department Care Team Description 11/02/2010 Telephone Allen Tam Question Obstetrics/Gynecolog y MD Kiran [address] [place] [address] [place] [address] [phone] (Wo rk) Social History Tobacco Use Types Packs/Day Years Used Date Smoking Tobacco: Never Assessed Sex Assigned at Date Recorded Not on file documented as of this encounter Nursing Notes Juani Johansen LPN - 11/02/2010 10:34 AM CDT pt notified Gurjit Joe - 11/02/2010 10:26 AM CDT Advise pt that doing an HSG just as menses ends is the PERFECT time to do an HSG, so she should proceed as scheduled. Rosalva Pearson RN - 11/02/2010 10:15 AM CDT Pt states her menses came late, has an HSG scheduled for Friday11/05/10 with Jose Luis. Menses with be almost gone by then, ok to proceed with the procedure or reschedule? documented in this encounter Plan of Treatment Not on filedocumented as of this encounter Visit Diagnoses Not on filedocumented in this encounter Care Teams Ironing Pleater Relationship Specialty Start Date End Date Mikala Best, CARE COORDINATOR, BRANCH OFFICE MANAGER PCP - General 07/16/10 02/11/[address] [place] [id number] documented as of this encounter
--- OUTSIDE RECORDS SUMMARY | 2022-03-23 17:35 | XMS_ITS | Encounter Summary ---
:1980 Author Organization [facility] Address [address] [address] Care Team Providers Name Role Phone Mikala Best APRN, CNP Primary Care Provider [phone] Encounter Details Date Type Department Care Team Description 09/28/2010 PN Conversion Only [facility] CONVERSION Alejandra Cleveland, PA-C [address] [place] [address] (Wo rk) Social History Tobacco Use Types Packs/Day Years Used Date Smoking Tobacco: Never Assessed Sex Assigned at Date Recorded Not on file documented as of this encounter Plan of Treatment Not on filedocumented as of this encounter Visit Diagnoses Not on filedocumented in this encounter Care Teams Length Control Tester Relationship Specialty Start Date End Date Mikala Best APRN, CNP PCP - General 07/16/10 02/11/12 [address] [address] [place] [address] documented as of this encounter
--- OUTSIDE RECORDS SUMMARY | 2022-03-23 17:35 | XMS_ITS | Encounter Summary ---
:1980 Author Organization [facility] Address [address] [place] [address] Care Team Providers Name Role Phone BevGilles alvaradomacario URBINA CNP Primary Care Provider [phone] Encounter Details Date Type Department Care Team Description 10/12/2010 PN Conversion Only [facility] [address] [place] [address] Social History Tobacco Use Types Packs/Day Years Used Date Smoking Tobacco: Never Assessed Sex Assigned at Date Recorded Not on file documented as of this encounter Plan of Treatment Not on filedocumented as of this encounter Procedures Procedure Name Priority Date/Time Associated Diagnosis Comme [facility] US PELVIC COMPLETE Routine 10/12/2010 10:05 AM Re sults for this W EV CDT procedure are i n the results section. documented in this encounter Results US Pelvic Complete W EV (10/12/2010 10:05 AM CDT) Anatomical Region Laterality Modality Pelvis Other Specimen (Source) Anatomical Location Collection Method / Collectio n Time Received Time / Laterality Volume Impressions 10/12/2010 10:05 AM CDT : ??Mild myomatous change. ??Otherwise unremarkable. Dictating PASHA MANZANO S RADIOLOGIST Narrative 10/12/2010 10:05 AM CDT COMPARISON STUDY: ??None. FINDINGS: ??Both transabdominal and gottlieb svaginal scanning were performed. ??The uterus measures 7.3 x 4 .2 x 5.0 cm and demonstrates 2, small, intramural leiomyoma. ??One is in the posterior fundus, slightly eccentric to the right, measuri ng up to 13 mm. ??The second is in the inferior left uterine body vandana suring up to 18 mm. ??The uterus is otherwise within normal limits . ??The endometrial stripe measures 5 mm in maximum thickness. The ovaries appear within normal limits. ?? Both ovaries demonstrate normal vascular flow. ??There is no free fluid in the cul-de-sac. Procedure Note Pasha Rose MD - 09/29/2015Formattin g of this note might be different from the original. COMPARISON STUDY: None. FINDINGS: Both transabdominal and transv aginal scanning were performed. The uterus measures 7.3 x 4.2 x 5.0 cm and demonstrates 2, small, intramural leiomyoma. One is i n the posterior fundus, slightly eccentric to the right, measuri ng up to 13 mm. The second is in the inferior left uterine body vandana suring up to 18 mm. The uterus is otherwise within normal limits . The endometrial stripe measures 5 mm in maximum thickness. The ovaries appear within normal limits. Both ovaries demonstrate normal vascular flow. There is no free f luid in the cul-de-sac. IMPRESSION : Mild myomatous change. Otherwise unrem arkable. Dictating PASHA MANZANO RADIOLOGIST Amanda Stockton APRN, CNP [facility] documented in this encounter Visit Diagnoses Not on filedocumented in this encounter Care Teams Route Sales Trainee Relationship Specialty Start Date End Date Mikala Best APRN, BONITA PCP - General 07/16/10 02/11/12 [address] [place] [place] [address] documented as of this encounter
--- OUTSIDE RECORDS SUMMARY | 2022-03-23 17:35 | XMS_ITS | Encounter Summary ---
:1980 Author Organization [facility] Address [address] [place] [address] Care Team Providers Name Role Phone Allen Amaya MD Primary Care Provider [phone] Encounter Details Date Type Department Care Team Description 10/16/2010 Notes/Orders [facility] Allen Amaya Leiomyoma of uterus, unspeci fied; [id number] Kiran MD Pain in joint, [place] [address] [address] [place], [place] [address] (Wo rk) Social History Tobacco Use Types Packs/Day Years Used Date Smoking Tobacco: Never Assessed Sex Assigned at Date Recorded Not on file documented as of this encounter Plan of Treatment Not on filedocumented as of this encounter Procedures Procedure Name Priority Date/Time Associated Comments Diagnosis MR CERVICAL SPINE WO IV Routine 01/21/2011 1:34 R esults for CONT PM CDT this procedure are in the results section. XR SHOULDER LT 2+ VIEWS Routine 01/15/2011 10:47 Pain in joint , Results for AM CDT site unspecified this proced ure are in the results section. FL HYSTEROSALPINGIOGRAM Routine 11/05/2010 1:22 Leiomyoma of R esults for SURGICAL PM CDT uterus, this procedure unspecified are in the results section. FL HYSTEROSALPINGIOGRAM Routine 11/05/2010 1:21 Leiomyoma of R esults for IMAGING PM CDT uterus, this procedure unspecified are in the results section. documented in this encounter Results MR Cervical Spine WO IV Cont (01/21/2011 1:34 PM CDT) Anatomical Region Laterality Modality Spine, C-Spine, Neck, Vascular Other Specimen (Source) Anatomical Location Collection Method / Collectio n Time Received Time / Laterality Volume Impressions 01/21/2011 9:36 PM CDT IMPRESSION: 1. Disk osteophyte complex with a probab le small to moderate sized central and left paracentral protrusion which extends into the medial aspect of the neural foramen on the left with associated probable moderate to severe narrowing of the neur al foramen at the level of at C6-C7 as described above. ?? 2. ??Area of increased T1 and increased T2 signal seen involving the posterior elements of C4 on the right wi th some corresponding increased signal on the STIR sequence. ? ?Slightly atypical hemangioma is favored. Narrative 01/21/2011 9:36 PM CDT TECHNIQUE: a routine MRI of the cervical spine without contrast was done in. FINDINGS: There is loss of the normal ce rvical lordosis. ??The patient appears scoliotic. ??This may be related to positioning. ??No definite signal abnormalities are seen within the cord. ??The C2-C3 through C6-C7 disks are desiccated. ??Nonspecifi c area of increased T1 and increased T2 signal with some associated mild increased signal is seen on the STIR sequence involving the pedicle and lateral mass of C4 on the right. ??This may represent a slightly atypical hemangioma. ?? Small osteophytes are seen. ??Serial axi al images were obtained from the level of C1 to the level of T1: C1-C2: There is no evidence of significa nt central stenosis. C2-C3: There is no evidence of a focal d isk herniation, central stenosis or neural foramina narrowing. C3-C4: There is no evidence of a focal d isk herniation, central stenosis or neural foramina narrowing. C4-C5: Mild bulge is seen at this level. ??Probable mild central stenosis is seen. ??No definite neural f oramina narrowing is present. C5-C6: Mild disk osteophyte complex is seen. ??Mild bulge is seen at this level. ??Small annular tear is seen posteriorly. ??The AP diameter of the thecal sac narrows to approximate ly 8 mm. ??No definite neural foramina narrowing is seen. C6-C7: Disk osteophyte complex is prese nt eccentric to the left. Probable small to moderate sized central and left paracentral protrusion is seen at this level which e xtends into the medial aspect of the neural foramen on the left and ma y be causing impingement of the exiting C7 nerve root on the left. ? ?There is probable moderate to severe narrowing of the medial aspect of the neural foramen on the left. ??There is mild flattening of the cervical cord. ??The AP diameter of the thecal sac narrows to ap proximately 7 mm. ??Probable mild to moderate central stenosis is see n. ??Probable mild neural foramina narrowing is seen on the right. ?? C7-T1: There is no evidence of a focal disk herniation, central stenosis or neural foramina narrowing. ? ? Procedure Note Radha Martinez MD - 09/29/2015 TECHNIQUE: a routine MRI of the cervical spine without contrast was done in. FINDINGS: There is loss of the normal ce rvical lordosis. The patient appears scoliotic. This may be related t o positioning. No definite signal abnormalities are seen within the cord. The C2-C3 through C6-C7 disks are desiccated. Nonspecific area of increased T1 and increased T2 signal with some associated mild increased signal is seen on the STIR sequence involving the pedicle and lateral mass of C4 on the right. This may represent a sl ightly atypical hemangioma. Small osteophytes are seen. Serial axial images were obtained from the level of C1 to the level of T1: C1-C2: There is no evidence of significa nt central stenosis. C2-C3: There is no evidence of a focal d isk herniation, central stenosis or neural foramina narrowing. C3-C4: There is no evidence of a focal d isk herniation, central stenosis or neural foramina narrowing. C4-C5: Mild bulge is seen at this level. Probable mild central stenosis is seen. No definite neural for rosario narrowing is present. C5-C6: Mild disk osteophyte complex is seen. Mild bulge is seen at this level. Small annular tear is seen p osteriorly. The AP diameter of the thecal sac narrows to approximate ly 8 mm. No definite neural foramina narrowing is seen. C6-C7: Disk osteophyte complex is prese nt eccentric to the left. Probable small to moderate sized central and left paracentral protrusion is seen at this level which e xtends into the medial aspect of the neural foramen on the left and ma y be causing impingement of the exiting C7 nerve root on the left. T here is probable moderate to severe narrowing of the medial aspect of the neural foramen on the left. There is mild flattening of the ce rvical cord. The AP diameter of the thecal sac narrows to ap proximately 7 mm. Probable mild to moderate central stenosis is see n. Probable mild neural foramina narrowing is seen on the right. C7-T1: There is no evidence of a focal disk herniation, central stenosis or neural foramina narrowing. IMPRESSION IMPRESSION: 1. Disk osteophyte complex with a probab le small to moderate sized central and left paracentral protrusion which extends into the medial aspect of the neural foramen on the left with associated probable moderate to severe narrowing of the neur al foramen at the level of at C6-C7 as described above. 2. Area of increased T1 and increased T 2 signal seen involving the posterior elements of C4 on the right wi th some corresponding increased signal on the STIR sequence. S lightly atypical hemangioma is favored. Jony Jesus MD RAD MRI XR Shoulder Lt 2+ Views (01/15/2011 10:47 AM CDT) Anatomical Region Laterality Modality Upper Extremity, Shoulder Other Specimen (Source) Anatomical Location Collection Method / Collectio n Time Received Time / Laterality Volume Narrative 01/15/2011 4:16 PM CDT 2 views of the left shoulder. ??No fract ure, dislocation or other bone abnormality. Procedure Note Benny Russell - 09/29/2015Formattin g of this note might be different from the original. 2 views of the left shoulder. No fractur e, dislocation or other bone abnormality. Jony Jesus MD RAD GD FL Hysterosalpingiogram Surgical (11/05/2010 1:22 PM CDT) Anatomical Region Laterality Modality Pelvis Other Specimen (Source) Anatomical Location Collection Method / Collectio n Time Received Time / Laterality Volume Narrative 11/05/2010 1:23 PM CDT URP See physicians report in Epic. Procedure Note Allen Amaya MD - 09/29/2015 URP See physicians report in Epic. Allen Amaya MD RAD FL FL Hysterosalpingiogram Imaging (11/05/2010 1:21 PM CDT) Anatomical Region Laterality Modality Pelvis Other Specimen (Source) Anatomical Location Collection Method / Collectio n Time Received Time / Laterality Volume Impressions 11/05/2010 2:09 PM CDT IMPRESSION: Normal hysterosalpingogram. Narrative 11/05/2010 2:09 PM CDT Following cannulation by chet Pires r-soluble contrast material was introduced. ??Endometrial cavity tati ears normal without defects. ?? The fallopian tubes are normally filled with spillage into pelvis. ?? Procedure Note Claudio Anderson MD - 09/29/2015 Following cannulation by chet Pires r-soluble contrast material was introduced. Endometrial cavity appea rs normal without defects. The fallopian tubes are normally filled with spillage into pelvis. IMPRESSION IMPRESSION: Normal hysterosalpingogram. Allen MAYNARD documented in this encounter Visit Diagnoses Diagnosis Leiomyoma of uterus, unspecified Pain in joint, site unspecified documented in this encounter Care Teams Plastic Products Sales Representative Relationship Specialty Start Date End Date Allen Amaya MD PCP - General 02/12/12 02/01/13 [address] [place] [address] documented as of this encounter
--- OUTSIDE RECORDS SUMMARY | 2022-03-23 17:35 | XMS_ITS | Encounter Summary ---
:1980 Author Organization [facility] Address [address], [place] [address] Care Team Providers Name Role Phone Mikala Best APRN, CNP Primary Care Provider [phone] Reason for Visit Reason Comments Skin Check Encounter Details Date Type Department Care Team Description 05/17/2011 Initial Consult [place] Bisi Ulloa MD Acne vulgaris; Dermatology [address] [place] [address] Multiple pigmented nevi; [address] [place], [place] [id number] [place] [id number] Social History Tobacco Use Types Packs/Day Years Used Date Smoking Tobacco: Never Assessed Sex Assigned at Date Recorded Not on file documented as of this encounter Progress Notes Bisi Ulloa MD - 05/19/2011 3:16 PM CST Chief Complaint Patient presents with ??? Skin Check SUBJECTIVE : Lacey Nolasco is a 31 y.o. female who presents for evaluation of her moles. Patient denies any new, changing, bleeding, tender or itchy lesions. She has a lesion on her right preauricular cheek thatstarted like a pimple 2 months ago. It has not resolved. No prior tx. She doesn't usually have lesions last this long. Also feels that she is getting worse acne recently. On otc txs, but they don't seem to do much. No prescription treatments. No past medical history on file. FHx: no fhx of skin cancer including melanoma. History Substance Use Topics ??? Smoking status: [...] no acute distress. Well nourished, appropriately groomed. There were no vitals taken for this visit. Skin: Jackson skin type 2 Full body skin exam was performed including scalp, face, hair, ears, neck, chest, abdomen, back, upper extremities and hands bilaterally including nails, lower extremities and feet bilaterally including toenails, buttock but excluding the genitalia per patients request. - Numerous brown, evenly pigmented macules and papules with well defined borders scattered over the trunk and extremities. Evaluation with dermoscopy showed no findings concerning for atypia. - Erythematous papule on the right preauricular cheek with underlying fullness. Nontender. - Several comedones and a few superficial inflammatory papules on the forehead and chin and jawline. Exam otherwise unremarkable. ASSESSMENT : 1. Acne vulgaris (706.1E) tretinoin (RETIN-A) 0.05 % cream 2. Multiple pigmented nevi (216.9JH) 3. Cyst (706.2AT) PLAN : 1. Acne - We discussed extensively the pathogenesis, course and response to treatment of acne. We discussed that there is often an initial flare prior to improvement after initiating therapy. We also discussedthat it may take 2 months or more to notice significant improvement. - Tretinoin 0 .05% cream. Risk and benefits of topical retinoids including irritation, increased photosensitivity, increased skin tearing with chemical peels or waxing, and possible cosmetic benefit were discussed. Patient was counseled to use a pea-sized amount to their entire clean, dry face nightly. May start every other night or every third night and gradually increase to nightly. Irritation may be addressed by decreasing the frequency of use or increasing moisturization with a mild, non-comedogenic moisturizer such as Cetaphil. - Cystic lesion on right preauricular cheek injected with ILK. Discussed potential treatment optionsincluding ILK, no treatment and bx. Pt elected kenalog injection. - Risks and benefits of kenalog injection discussed including, but not limited to, infection and potentially permanent skin atrophy. Pt would like to proceed. - Kenalog 5 mg/cc was injected into the lesions. A total of < 0.1 ml was injected. Pt tolerated the injection well. 2. Nevi - Discussed ABCDEs of dysplastic nevi/melanoma. Handout provided on this. - Patient was counseled to perform full body skin exams at home, and return to clinic if any new concerning lesions are noted. Additionally, photoprotection with long-acting UVA/UVB sunblock or UPF rated clothing on a regular basis was recommended. Recommended at least SPF 30 on a daily basis and withre-application every 2-3 hours during outdoor events. Reviewed longer acting sunblock formulations. - Reviewed risks of chronic sun exposure, and recommended avoidance of indoor tanning. F/u in 2 months documented in this encounter Plan of Treatment Not on filedocumented as of this encounter Visit Diagnoses Diagnosis Acne vulgaris Other acne Multiple pigmented nevi Benign neoplasm of skin, site unspecifie d Cyst Reserved for inherently not codable conc epts WITHOUT codable children documented in this encounter Care Teams Budget Consultant Relationship Specialty Start Date End Date Mikala Best, CARLITOS, TODDLER GUIDE PCP - General 07/16/10 02/11/12 [address] [address] [place] [address] documented as of this encounter
--- OUTSIDE RECORDS SUMMARY | 2022-03-23 17:35 | XMS_ITS | Encounter Summary ---
:1980 Author Organization [facility] Address [address], [place] [address] Care Team Providers Name Role Phone Nasir Mikala URBINA CNP Primary Care Provider [phone] Reason for Visit Reason Comments INFERTILITY Encounter Details Date Type Department Care Team Description 12/27/2010 Telephone [place] Rosalva Pearson, RN [facility] Obstetrics/Gynecolog y [address] [place] [address] Social History Tobacco Use Types Packs/Day Years Used Date Smoking Tobacco: Never Assessed Sex Assigned at Date Recorded Not on file documented as of this encounter Nursing Notes Allen Amaya - 12/27/2010 4:37 PM CDT Returned call. Left message. No intervention/therapy recommended in this time frame. Rosalva Pearson, RN - 12/27/2010 1:02 PM CDT Pt has dysmenorrhea with poss. endometriosis and has been trying to get for 4 mo. in order to complete her childbearing and finally Tx the condition. Scheduled an appt. with Dr. Amaya to discuss options and next step in this process. Her periods are increasing in intensity as far as pain and wondering if there is something that can be done to improve her ability to conceive. Requesting a call from Dr. Amaya if poss. documented in this encounter Plan of Treatment Not on filedocumented as of this encounter Visit Diagnoses Not on filedocumented in this encounter Care Teams Restaurant Host/Hostess Relationship Specialty Start Date End Date Mikala Best APRN, BRONC BREAKER PCP - General 07/16/10 02/11/12 [address] [address] [place] [place] [address] documented as of this encounter
--- OUTSIDE RECORDS SUMMARY | 2022-03-23 17:35 | XMS_ITS | Encounter Summary ---
:1980 Author Organization [facility] Address [address] [place] [address] Care Team Providers Name Role Phone Mikala Best CARLITOS, BONITA Primary Care Provider [phone] Encounter Details Date Type Department Care Team Description 10/09/2010 PN Conversion Only NONDENOMINATIONAL CONVERSION Alejandra Cleveland PA-C [address] [place] [address] (Wo rk) Social History Tobacco Use Types Packs/Day Years Used Date Smoking Tobacco: Never Assessed Sex Assigned at Date Recorded Not on file documented as of this encounter Plan of Treatment Not on filedocumented as of this encounter Procedures Procedure Name Priority Date/Time Associated Diagnosis Comme nts LIPID PANEL AND Routine 10/09/2010 7:45 AM Result s for this DIRECT LDL(IF CDT procedure are in NEEDED) the results section. documented in this encounter Results (ABNORMAL) Lipid Panel and Direct LDL(If Needed) (10/09/2010 7:45 AM CDT) [facility] Method Time Signature Cholesterol 218 (H) 0 - 200 HP CONVERSION mg/dL Triglycerides 141 0 - 149 HP CONVERSION mg/dL HDL Cholesterol 61 >39 mg/dL HP CONVERSION Cholesterol/HDL 3.6 No normal HP CONVERSION Ratio Screen range LDL Calculated 129 19 - 130 HP CONVERSION mg/dL Length Of Fast 12 No normal HP CONVERSION range Specimen (Source) Anatomical Collection Method Collection Time Re ceived Time Location / / Volume Laterality 10/09/2010 7:45 AM CDT Alejandra M Strong PA-C LAB_1 Performing Organization Address City/State/ZIP Code Phon e Number HP CONVERSION documented in this encounter Visit Diagnoses Not on filedocumented in this encounter Care Teams Automobile Tester Relationship Specialty Start Date End Date Mikala Best APRN, AEROSPACE PROJECT ENGINEER PCP - General 07/16/10 02/11/12 [address] [place] [address] documented as of this encounter
--- OUTSIDE RECORDS SUMMARY | 2022-03-23 17:35 | XMS_ITS | Encounter Summary ---
:1980 Author Organization [facility] Address [address], [place] [address] Care Team Providers Name Role Phone Mikala Best APRN, CNP Primary Care Provider [phone] Encounter Details Date Type Department Care Team Description 11/05/2010 [facility] [address] [place] [address] Social History Tobacco Use Types Packs/Day Years Used Date Smoking Tobacco: Never Assessed Sex Assigned at Date Recorded Not on file documented as of this encounter Plan of Treatment Not on filedocumented as of this encounter Visit Diagnoses Not on filedocumented in this encounter Care Teams Aerodynamics Teacher Relationship Specialty Start Date End Date Mikala Best APRN, CNP PCP - General 07/16/10 02/11/12 [address] [facility] [place] [id number] documented as of this encounter
--- OUTSIDE RECORDS SUMMARY | 2022-03-23 17:35 | XMS_ITS | Encounter Summary ---
:1980 Author Organization [facility] Address [address], [place] [address] Care Team Providers Name Role Phone Mikala Best APRN, CNP Primary Care Provider [phone] Reason for Referral Specialty Diagnoses / Procedures Referred By Contact Refer red To Contact Frantz Sims III, MD [address] [place] [id number] Referral ID Status Reason Start Date Expiration Date Visits Requ ested Visits Authorized Encounter Details Date Type Department Care Team Description 02/07/2011 Notes/Orders [facility], Cervical radiculopathy 39[address] Neurosurgery Rosemary Barroso RN at C7 (Primary Dx) [address] [place] [address] Social History Tobacco Use Types Packs/Day Years Used Date Smoking Tobacco: Never Assessed Sex Assigned at Date Recorded Not on file documented as of this encounter Plan of Treatment Scheduled Referrals Name Type Priority Associated Diagnoses [facility] Referral Routine Cervical radiculopathy at Ordered: 02/07/2011 ULTRASOUND GUIDED * C7 CONSULT (AMB) documented as of this encounter Visit Diagnoses Diagnosis Cervical radiculopathy at C[facility] - Primary Brachial neuritis or radiculitis nos documented in this encounter Care Teams Clipper Operator Relationship Specialty Start Date End Date Mikala Best APRN, CNP PCP - General 07/16/10 02/11/12 [address] [place] [address] documented as of this encounter
--- OUTSIDE RECORDS SUMMARY | 2022-03-23 17:35 | XMS_ITS | Encounter Summary ---
:1980 Author Organization [facility] Address [address] [place] [address] Care Team Providers Name Role Phone BevGilles alvaradomacario URBINA, BOINTA Primary Care Provider [phone] Encounter Details Date Type Department Care Team Description 04/29/2010 PN Conversion Only LATTER DAY CONVERSION Monica Gaines MD Social History Tobacco Use Types Packs/Day Years Used Date Smoking Tobacco: Never Assessed Sex Assigned at Date Recorded Not on file documented as of this encounter Plan of Treatment Not on filedocumented as of this encounter Procedures Procedure Name Priority Date/Time Associated Diagnosis Comme nts WET PREP Routine 04/29/2010 11:28 AM Results for this TUBE DRAWER procedure are i n the results section . documented in this encounter Results Wet Prep (04/29/2010 11:28 AM TUBE DRAWER) P athologist Signature Wet Prep SEE TEXT HP CONVERSION Comment: WETPR Wet Prep ? ORDERED BY: LULI GAINES SOURCE: Cervix/Vaginal ? COLLECTED: ??04/29/10 11:28 ? PLATED: ? 04/29/10 11:28 Wet Prep ? FINAL ? 04/29/10 11:31 No White Blood Cells; Few epithelial ce lls; No yeast; No Trichomonas; Rare clue cells. Specimen (Source) Anatomical Collection Method Collection Time Re ceived Time Location / / Volume Laterality 04/29/2010 11:28 AM TUBE DRAWER Luli Gaines MD LAB_1 Performing Organization Address City/State/ZIP Code Phon e Number HP CONVERSION documented in this encounter Visit Diagnoses Not on filedocumented in this encounter Care Teams Automobile Body Repair Chief Relationship Specialty Start Date End Date Mikala Best, STRIP ROLLER, JET MECHANIC PCP - General 07/16/10 02/11/12 [address] [place] [place] [address] documented as of this encounter
--- OUTSIDE RECORDS SUMMARY | 2022-03-23 17:35 | XMS_ITS | Encounter Summary ---
:1980 Author Organization [facility] Address [address], [place] [address] Care Team Providers Name Role Phone Mikala Best APRN, CNP Primary Care Provider [phone] Reason for Visit Reason Comments Ultrasound Results Encounter Details Date Type Department Care Team Description 10/17/2010 Telephone Amanda Rico Ultrasoun d Results Obstetrics/Gynecolog y BONITA URBINA [address] [place] [address] Social History Tobacco Use Types Packs/Day Years Used Date Smoking Tobacco: Never Assessed Sex Assigned at Date Recorded Not on file documented as of this encounter Plan of Treatment Not on filedocumented as of this encounter Visit Diagnoses Not on filedocumented in this encounter Care Teams Bandage Winding Machine Operator Relationship Specialty Start Date End Date Mikala Best APRN, CNP PCP - General 07/16/10 02/11/[address] [place] [address] documented as of this encounter
--- OUTSIDE RECORDS SUMMARY | 2022-03-23 17:35 | XMS_ITS | Encounter Summary ---
:1980 Author Organization [facility] Address [address] [place] [address] Care Team Providers Name Role Phone Mikala Best APRN, CNP Primary Care Provider [phone] Encounter Details Date Type Department Care Team Description 01/21/2011 Imaging [facility] Radiology MRI [address] [facility] [place] [address] Social History Tobacco Use Types Packs/Day Years Used Date Smoking Tobacco: Never Assessed Sex Assigned at Date Recorded Not on file documented as of this encounter Plan of Treatment Not on filedocumented as of this encounter Visit Diagnoses Not on filedocumented in this encounter Care Teams Stock Selector Relationship Specialty Start Date End Date Mikala Best APRN, CNP PCP - General 07/16/10 02/11/12 [address] [place] [address] [place] [id number] documented as of this encounter
--- OUTSIDE RECORDS SUMMARY | 2022-03-23 17:35 | XMS_ITS | Encounter Summary ---
:1980 Author Organization [facility] Address [address] [place] [address] Care Team Providers Name Role Phone Nasir Mikala URBINA, BONITA Primary Care Provider [phone] Reason for Visit Reason Comments Menstrual Problems Encounter Details Date Type Department Care Team Description 02/16/2011 Nurse Triage Robert Nurse Line No Pcp, No Pcp, Menstrual Problems [address] [facility] [place] [address] [place] [address] [phone] Social History Tobacco Use Types Packs/Day Years Used Date Smoking Tobacco: Never Assessed Sex Assigned at Date Recorded Not on file documented as of this encounter Nursing Notes Che Monaco, RN - 02/16/2011 7:20 PM CDT Pt calling States period was a week late Had negative home preg test Period then started yesterday Has normal volume of bleeding and normal amount of intermittent cramping But has been passing some clots - up to quarter sized Wondering if that's dangerous Also asking if steroid injection in her neck could have caused the late period Protocol: VAGINAL BLEEDING - [id number] Affirmative: Normal menstrual flow (all triage questions negative) Disposition of Home Care suggested. PLAN: Reassured pt re: clots. Discussed that steroids can cause many side effects - and pain/stress could have also contributed to late menses. Reviewed worsening symptoms to watch for. Encouraged to call back anytime for questions, concerns, change in symptoms. Pt/caller verbalized understanding, denies further questions and is agreeable to plan. Che Monaco, RN After Hours NurseLine documented in this encounter Plan of Treatment Not on filedocumented as of this encounter Visit Diagnoses Not on filedocumented in this encounter Care Teams Reinforcing Bar Setter Relationship Specialty Start Date End Date Mikala Best APRN, AGILE BUSINESS ANALYST PCP - General 07/16/10 02/11/12 [address] [address] [place] [id number] documented as of this encounter
--- OUTSIDE RECORDS SUMMARY | 2022-03-23 17:35 | XMS_ITS | Encounter Summary ---
:1980 Author Organization [facility] Address [address] [address] Care Team Providers Name Role Phone BevGilles alvaradomacario URBINA CNP Primary Care Provider [phone] Encounter Details Date Type Department Care Team Description 03/10/[address] [facility] [place] [place] [id number] [place] [address] [phone] (Wo rk) Social History Tobacco Use Types Packs/Day Years Used Date Smoking Tobacco: Never Assessed Sex Assigned at Date Recorded Not on file documented as of this encounter Last Filed Vital Signs Vital Sign Reading Time Taken Comments Blood Pressure 107/74 03/10/2010 12:59 PM PLATFORM BEATER Pulse 75 03/10/2010 12:59 PM PLATFORM BEATER Temperature 36.7 ??C (98.1 ??F) 03/10/2010 12:59 PM PLATFORM BEATER C: 3 6.7 C Respiratory Rate 20 03/10/2010 12:59 PM PLATFORM BEATER Oxygen Saturation 99% 03/10/2010 12:59 PM PLATFORM BEATER Inhaled Oxygen Concentration - - Weight - - Height - - Body Mass Index - - documented in this encounter Progress Notes Norman Rowell MD - 03/10/2010 12:01 AM CST NAME: SHAMIR NOLASCO MR#: [id number] ACCT: [id number] VISIT: [id number] DICTATING CLINICIAN: Norman Rowell MD CONFIRM #: [id number] LOC: 820 CLINIC PROGRESS NOTE DATE OF VISIT: 03/10/2010 : 1980 CHIEF COMPLAINT: 1. Sinus pressure and pain. 2. Productive cough. 3. Herpes simplex blister to lower lip. HISTORY OF PRESENT ILLNESS: This is a 29-year-old woman who states that she developed URI symptoms roughly 4 weeks ago with associated upper respiratory congestion and postnasal drainage. Over this past couple of weeks she has had persistent and worsening maxillary facial pain and pressure associated with a purulent nasal discharge. She has also developed a productive cough of yellowish sputum. She denies concomitant bronchospasm. She states that she has had a predilection for herpes simplex lesions to the lower lip particularly when she is under periods of stress and such has been the case over this past several days as one has evolved again. PAST MEDICAL HISTORY: Otherwise reviewed in LastWord. CHRONIC MEDICATIONS: Reviewed and updated in LastWord. MEDICINAL INTOLERANCES: None. SOCIAL HISTORY: Nonsmoker. SURGICAL HISTORY: Reviewed in LastWord. FAMILY HISTORY: None. REVIEW OF SYSTEMS: As per the HPI. She denies high fever, pleuritic pain, or hemoptysis. Remainder of complete ROS negative. PHYSICAL EXAM: Well-developed, well-nourished, 29-year-old woman. Temperature 98.1. Pulse 75. Respirations 20. Blood pressure 107/74. Room air pulse oxygen saturation 99%. HEENT EXAM: Revealed quite a bit of upper respiratory congestion. The oropharynx was clear, but a purulent postnasal drainage was evidenced in the retropharynx. Tympanic membranes were normal. Evaluation of the patient's mouth showed a large 3 x 3 mm herpes simplex lesion. She had anterior cervical adenopathy noted as well. LUNGS: Rhonchorous bilaterally. No wheezes or rales. HEART: Normal S1-S2. ABDOMEN: Soft, benign. MUSCULOSKELETAL: No peripheral edema. DERMATOLOGIC: No evidence of any peripheral exanthem of any kind. ASSESSMENT: 1. She was placed on Augmentin and 75 mg b.i.d. for 14 days. 2. Ntft-gyp-bqyhpam symptomatic measures also discussed in detail. 3. I have prescribed Valtrex to treat herpes simplex lesion. Careful instructions reviewed. Refills offered as well. PRR:MEDQ C: CONFIRM #: [id number] FORM BEATER documented in this encounter Plan of Treatment Not on filedocumented as of this encounter Visit Diagnoses Not on filedocumented in this encounter Care Teams Student Officer Relationship Specialty Start Date End Date Mikala Best APRN, RN CLINICAL DOCUMENTATION SPECIALIST PCP - General 07/16/10 02/11/12 [address] [address] [place] [id number] documented as of this encounter
--- OUTSIDE RECORDS SUMMARY | 2022-03-23 17:35 | XMS_ITS | Encounter Summary ---
:1980 Author Organization [facility] Address [address] [place] [address] Care Team Providers Name Role Phone Nasir Miklaa URBINA CNP Primary Care Provider [phone] Reason for Visit Reason Comments ARM PAIN Encounter Details Date Type Department Care Team Description 01/28/2011 Office Visit [facility] [address] Frantz Sims chial neuritis or radiculitis NOS (Primary Dx); Neurosurgery III, Displacement of cervical intervertebral disc without myelopathy [address] [facility]. [address] [place] [id number] Social History Tobacco Use Types Packs/Day Years Used Date Smoking Tobacco: Never Assessed Sex Assigned at Date Recorded Not on file documented as of this encounter Last Filed Vital Signs Vital Sign Reading Time Taken Comments Blood Pressure - - Pulse 71 01/28/2011 10:13 AM CDT Temperature - - Respiratory Rate 14 01/28/2011 10:13 AM CDT Oxygen Saturation - - Inhaled Oxygen Concentration - - Weight 79.8 kg (176 lb) 01/28/2011 10:13 AM CDT Height 167.6 cm (5' 6) 01/28/2011 10:13 AM CDT Body Mass Index 28.41 01/28/2011 10:13 AM CDT documented in this encounter Progress Notes Frantz Sims - 01/29/2011 1:20 PM CDT dictated Frantz Allen - 01/28/2011 12:56 PM CDT Consults signed by Frantz Sims MD at 01/31/11 0959 Author: Frantz Sims MD Service: (none) Author Type: Physician Filed: 01/31/1159 Note Time: 01/28/11 1256 Status: Signed Wool Handler: Frantz Sims MD (Physician) NAME: SHAMIR NOLASCO NAME: SHAMIR NOLASCO MR#: [id number] CSN: [id number] AUTHENTICATING CLINICIAN: Frantz Sims MD CONFIRM #: [id number] LOC: 262 CLINIC CONSULTATION DATE OF CONSULTATION: 01/28/2011 : 1980 REQUESTING PHYSICIAN: REASON FOR CONSULT: Arm pain. 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 She does not want to jeopardize her [employer] status in any way. She is very healthy but over the last eight months has had pain in her left arm radiating down to her hand with numbness in the thumb and second digit on the left only. She has no symptoms at all on the right. This did not occur secondary to any particular injury. Was under fairly good control for awhile, but over the last one to two months has started to significantly increase in intensity. She also notes what she describes as occasional weakness. She did have some oral steroids that seemed to work for a short period of time, but the pain came back as soon as they were completed. The patient has no difficulty with gait or walking. She has excellent fine motor control of her hands and uses a computer all of the time in her work without any difficulty. PHYSICAL EXAMINATION: She is 5 feet 6 inches, 176 pounds. Blood pressure 115/81. Pulse is 71. She has good range of motion of her neck without particular paraspinal spasm. She holds her arms overhead without difficulty. She has intact strength of fingers, de icer, intrinsics, ECRL, biceps, and deltoid bilaterally. Her left triceps, however, is weak at about 4+/5+ and is easily overcome. She does have less triceps strength on the right than I would anticipate, given her other strength, but it is markedly better than the left. Deep tendon reflexes are 1+ at the knee jerk and biceps, and she has the numbness as described above in the left thumb and second digit. The patient has had an MRI of her cervical spine. This shows good alignment. She does have degenerative disk disease at multiple levels, but at the C6 level she does have a fairly large disk herniation that is central and even to the right of center but primarily going to the left with a small intraforaminal component. There is compression of the left C7 root. IMPRESSION: Left C7 radiculopathy with triceps weakness and numbness secondary to C6 herniated disk. RECOMMENDATIONS: The surgical and nonsurgical treatment options were discussed with the patient in detail. She does have significant weakness and pressure on the exiting left C7 root which coincides with her distribution of weakness and pain. Her numbness seems to also include the C6 root on the left since her thumb is numb. However, I do not see any obvious problems with the exiting C6 root. There is no spinal cord compression as she does have CSF around the cord on axial view even at the C6 level. The risks, complications, and potential benefits of ACDF at C6 were discussed with the patient in detail. I have also introduced the concept of a cervical disk arthroplasty to her, but I have explained that I am not certain about the insurance being willing to cover that procedure. She says already that the would not cover her physical therapy, and so she tried some therapy at home which actually may have made her somewhat worse. The patient does not want to consider surgical treatment without trying an epidural steroid injection first. Therefore, we are going to send her to [facility] for a cervical root injection of the left C7 root. They can do this as an epidural steroid if they feel it is more indicated. This is for therapeutic reasons, not diagnostic. If the patient has no benefit at all or just minimal benefit. She should return to the clinic to see us about two weeks after the injection. If she has 30% to 70% benefit and wants to undergo a second injection, then that can be arranged for two weeks after the first, and then she should follow up with us in clinic two weeks after that second injection. The patient should follow up with Dr. Dobbs as he can offer her not only the choice of ACDF at C6, but he can also offer her the option of cervical disk arthroplasty. She will call us about one week after the first injection is done so that we can make the decision on sending her for a second injection, and of course, she is welcome to contact us at the office between now and the next appointment should she have any difficulties or problems or worsening of her symptoms. AM:MEDQ C: CONFIRM #: [id number] documented in this encounter Plan of Treatment Not on filedocumented as of this encounter Visit Diagnoses Diagnosis Brachial neuritis or radiculitis NOS - P rimary Brachial neuritis or radiculitis nos Displacement of cervical intervertebral disc without myelopathy ([facility]) Displacement of cervical intervertebral disc without myelopathy documented in this encounter Care Teams Financial Rep Relationship Specialty Start Date End Date Mikala Best APRN, TELEVISION PRESENTER PCP - General 07/16/10 02/11/12 [address] [address] [place] [id number] documented as of this encounter
--- OUTSIDE RECORDS SUMMARY | 2022-03-23 17:35 | XMS_ITS | Encounter Summary ---
:1980 Author Organization [facility] Address [address] [place] [address] Care Team Providers Name Role Phone Bevjenny Mikala URBINA CNP Primary Care Provider [phone] Encounter Details Date Type Department Care Team Description 10/09/2010 PN Conversion Only HINDU CONVERSION Hannah Tejeda APRN, CNP Social History Tobacco Use Types Packs/Day Years Used Date Smoking Tobacco: Never Assessed Sex Assigned at Date Recorded Not on file documented as of this encounter Plan of Treatment Not on filedocumented as of this encounter Procedures Procedure Name Priority Date/Time Associated Comments Diagnosis SEXUALLY TRANSMITTED Routine 10/09/2010 9:24 AM R esults for this DISEASE PROBE CDT procedure are in the results section. documented in this encounter Results Sexually Transmitted Disease Probe (10/09/2010 9:24 AM CDT) [facility] Method Time Signature Sexually SEE TEXT HP CONVERSION Transmitted Disease Probe Comment: STDPR Sexually Transmitted Disease DNA Probe ? ORDERED BY: AMANDA TEJEDA SOURCE: Endocervical for molecular testi ng COLLECTED: ??10/09/10 09:24 ? PLATED: ? 10/09/10 09:31 Chlamydia trachomatis DNA Probe ?FINAL ? 10/10/10 12:56 Chlamydia trachomatis NEGATIVE by DNA a mplification The amplified DNA assay is cleared by [facility] for non-medicolegal diagnostic testing in [facility] adult population. Neisseria gonorrhea DNA Probe ?FINAL ? 10/10/10 12:56 Neisseria gonorrhea NEGATIVE by DNA amp lification. The amplified DNA assay is cleared by [facility] for non-medicolegal diagnostic testing in [facility] adult population. Specimen (Source) Anatomical Collection Method Collection Time Re ceived Time Location / / Volume Laterality 10/09/2010 9:24 AM CDT Amanda Tejeda APRN, CNP LAB_1 Performing Organization Address City/State/ZIP Code Phon e Number HP CONVERSION documented in this encounter Visit Diagnoses Not on filedocumented in this encounter Care Teams Bagman/Woman Relationship Specialty Start Date End Date Mikala Best APRN, CNP PCP - General 07/16/10 02/11/12 [id number] [address] [place] [id number] documented as of this encounter
--- OUTSIDE RECORDS SUMMARY | 2022-03-23 17:35 | XMS_ITS | Encounter Summary ---
:1980 Author Organization [facility] Address [address], [place] [address] Care Team Providers Name Role Phone BevGilles alvaradomacario URBINA CNP Primary Care Provider [phone] Reason for Visit Reason Comments SHOULDER PAIN Encounter Details Date Type Department Care Team Description 01/15/2011 Office Visit Jony Iraheta MD Arm pain, left Orthopedics [address] (Primary Dx) [address] [place] [address] [phone] Social History Tobacco Use Types Packs/Day Years Used Date Smoking Tobacco: Never Assessed Sex Assigned at Date Recorded Not on file documented as of this encounter Progress Notes Jony Jesus MD - 01/15/2011 11:04 AM CDT Progress Notes signed by Jony Jesus MD at 01/16/11 1146 Author: Jony Jesus MD Service: (none) Author Type: Physician Filed: 01/16/11 1146 Note Time: 01/15/11 110 Status: Signed Mica Sizer: Jony Jesus MD (Physician) NAME: SHAMIR NOLASCO MR#: [id number] CSN: [id number] AUTHENTICATING CLINICIAN: Jony Jesus MD CONFIRM #: [id number] LOC: 511 CLINIC PROGRESS NOTE DATE OF VISIT: 01/15/2011 : 1980 SUBJECTIVE: Shamir Nolasco is a 30-year-old female being seen today for a chronic history of left upper extremity pain, which starts in the trapezial and parascapular area through the upper arm and radial border of the forearm. Sometimes she would have a numbness and tingling sensation involving the thumb and index finger, but it is not constant. There was no specific injury. There is no other identifying pattern when she gets worse, other than the fact that the pain is more noticeable when she sits and types and also when she drives. Lying on that shoulder bothers her. Walking during the day is typically well- tolerated. She has not felt any weakness. However, she has noted an occasional tremor in her thumb on the left. Over the last 3 weeks or so the situation has gotten worse instead of better and she decided to come in for evaluation. In the meantime she has tried exercises on her own, such as shrugging, stretching and neck range of motion. She also had a couple of massages, but none of these were helpful. She has been taking ibuprofen at nighttime only mostly to sleep. She is right-hand dominant. PAST MEDICAL HISTORY: Unremarkable. PRIOR OPERATIONS: None. MEDICATIONS: Ibuprofen. ALLERGIES: None. FAMILY HISTORY: Father and grandparents with a history of heart disease. Grandmother with a history rheumatoid arthritis. SOCIAL HISTORY: , has 1 child. Nonsmoker. Drinks alcohol occasionally. She works with an [employer] department. REVIEW OF SYSTEMS: History of tingling and numbness related to her current problem. Otherwise she denies problems related to cardiac, respiratory, hematologic, and psychiatric systems. OBJECTIVE: Alert, oriented, healthy-appearing female not in acute distress. Gait normal without limping. NECK: Supple with full range of motion. She has mild tenderness in the parascapular musculature on the left, not on the right. No visible or palpable muscle spasm is noted. Range of motion of both shoulders was intact. She has some crepitus in the AC joint area. Motor strength is full, including shrugging, protraction and retraction. No winging of the scapular are noted. She has full individual motor strength of all muscle groups in both upper extremities. Arm drop test is negative. Belly pressing test is negative. Elbow range of motion is full. Abduction and adduction strength is bilaterally symmetrical. Sensory function is grossly intact. Pinching strength is also bilaterally symmetrical. X-rays of the shoulders are reviewed and no specific pathology is noted, other than gentle lateral downsloping of the acromion. ASSESSMENT: Based on her history, even though the physical examination is nonspecific, very likely she has C5-C6 radiculopathy with C6 nerve root involvement. PLAN: Because of the chronicity of the problem and recent worsening, at this point I recommend an MRI scan evaluation of the cervical spine. She was instructed to contact us to review the results and proceed with treatment options of either epidural injection or possible surgical intervention. She understands our discussion. ABK:RAMIN C: CONFIRM #: [id number] documented in this encounter Plan of Treatment Not on filedocumented as of this encounter Visit Diagnoses Diagnosis Arm pain, left - Primary Pain in limb documented in this encounter Care Teams Cloth Layer Relationship Specialty Start Date End Date Mikala Best APRN, PROCUREMENT TECHNICIAN PCP - General 07/16/10 02/11/12 [address] [address] [place] [address] documented as of this encounter
--- OUTSIDE RECORDS SUMMARY | 2022-03-23 17:35 | XMS_ITS | Encounter Summary ---
:1980 Author Organization [facility] Address [address] [address] Care Team Providers Name Role Phone Mikala Best APRN, CNP Primary Care Provider [phone] Encounter Details Date Type Department Care Team Description 10/09/2010 Office Visit [facility], Obstetrics/Gynecolog y BONITA URBINA [address] [place] [address] Social History Tobacco Use Types Packs/Day Years Used Date Smoking Tobacco: Never Assessed Sex Assigned at Date Recorded Not on file documented as of this encounter Progress Notes Amanda Stockton APRN, CNP - 10/09/2010 12:01 AM CDT Subjective: Patient presents to discuss progressively painful menses which have occurred for the last 4 months at least and worse over the past 2 months. Last month and this month, they have been disabling, preventing her from going to work. She states that the flow has increased also where she has 1-2 very heavy days. She is changing protection hourly on the first day. Flow is lasting a total of 5 days. Interval is 28 days. She reports no intermenstrual or postcoital bleeding. Upon questioning, she has noted occasional deep penetration pain. She has had no family history to her knowledge of endometriosis or uterine fibroids. She only knows her mother and sister. She reports no signs or symptoms of vaginitis or risk for STDs. She and her have been considering again. She had no difficulty achieving a in the past. Following discussion regarding possible etiologies of symptoms and diagnostic testing, she will discontinue attempts, follow recommendation regarding testing and have a consult with Dr. Amaya. She would like pain medication. So far she has taken therapeutic doses of ibuprofen of 800 mg every 6 hours without relief. Upon questioning, she does not require a work note. Social history: She is a 30-year-old female. She is . Medications/drug allergies are updated in lastword. Medical/surgical history is updated on patient health profile. Gynecologic history: Last menstrual period: 10/03/2010. Obstetric history: . Lifestyle and habits: She is a nonsmoker. Objective: Vital signs as noted in lastword flow sheet. Patient is a pleasant appearing woman in no acute distress. Affect and appearance are appropriate. She is well-groomed. Abdomen is soft and nontender without rebound or organomegaly. No CVA tenderness noted. Exam external genitalia shows normal pink tissue without lesions. Exam internal vaginal vault is pink rugae with no abnormal discharge. Wet prep and MANUEL ordered and performed by myself is negative for pathogens. STD pr probe sampling is obtained at the cervical os. No cervical motion tenderness noted. Bimanual exam shows a uterus which is normal size and shape without tenderness. Adnexal exam unremarkable. No pain is reproduced on bimanual exam. Assessment: Dysmenorrhea present for 4 months, increasing in intensity. Disabling. Plan: Reviewed history. Discussed possible etiologies of symptoms, evaluation and followup. Reviewed negative wet prep/MANUEL findings on exam. STD pr probe and pelvic ultrasound pending. She will make a consult appointment as noted with Dr. Amaya. Rx Vicodin 5 mg-500 mg, dispensed #30 with one refill, instructions to take 1-2 tablets every 4 hours as needed for pain. Pamphlets are provided on pelvic pain, dysmenorrhea and endometriosis. documented in this encounter Plan of Treatment Not on filedocumented as of this encounter Visit Diagnoses Not on filedocumented in this encounter Care Teams Railroad Inspector Relationship Specialty Start Date End Date Mikala Best APRN, CNP PCP - General 07/16/10 02/11/12 [address] [address] [place] [address] documented as of this encounter
--- OUTSIDE RECORDS SUMMARY | 2022-03-23 17:36 | XMS_ITS | Encounter Summary ---
:1980 Author Organization [facility] Address [address] [place] [address] Care Team Providers Name Role Phone Mikala Best APRN, CNP Primary Care Provider [phone] Reason for Visit Reason Comments Other Encounter Details Date Type Department Care Team Description 04/20/2008 Telephone [facility] Joao Esteves Other [address] [place] [address] Social History Tobacco Use Types Packs/Day Years Used Date Smoking Tobacco: Never Assessed Sex Assigned at Date Recorded Not on file documented as of this encounter [facility], Message - 04/20/2008 11:49 AM CST Phone Note filed by NICE at 08/02/10 4323 Author: NICE Service: (none) Author Type: (none) Filed: 08/02/10 5518 Note Time: 04/20/08 1149 Status: Signed Rn Internship: Message [employer] Prior Authorization or Change Medications? Pharmacy Seq #:[facility] to [facility] Name & Phone #:[facility] [phone]/City:[facility] Comment:Ins wants them to use Acyclovir Clinician Name:Oh Drug Name/Strength:Valtrex 500mg caplet Sig:required Formulary Alternative Meds from Pharmacy: Insurance Carrier:[facility] Call Back Phone or Cell Phone: Is it OK to Leave a Confidential Message on this Voicemail? Created on 20Apr2008 11:49am by CIRA PRATT J On 20Apr2008 12:45pm MIKALA BEST wrote: Last appt 1 yr ago. needs appt for refill Acknowledged by MIKALA BEST on 12:45pm On 20Apr2008 2:30pm MELISSA MCGOVERN wrote: spoke with patient who states she has a refill left on her Valtrex but her insurance changed and Valtrex is no longer covered but Acyclovir is. She is requesting that Dr. Haynes please prescribe the Acyclovir this one time. Patient is aware she would need a appt. for any further refills after that. Patient can be reached at daytime # listed in lastword. Pt. would like message to forwarded to Dr. Haynes for her response. Pt. uses [facility] pharmacy at [phone]. Acknowledged by MELISSA MCGOVERN on 2:30pm On 21Apr2008 9:50am MICHAEL HAYNES wrote: rx sent to pharmacy Acknowledged by MICHAEL HAYNES on 9:50am Acknowledged by KADY JAMA on 11:30am On 21Apr2008 2:48pm JOAO ESTEVES wrote: sent to [facility]--pt notified Acknowledged by JOAO ESTEVES on 2:48pm ONAL INJURY LITIGATION PARALEGAL documented in this encounter Plan of Treatment Not on filedocumented as of this encounter Visit Diagnoses Not on filedocumented in this encounter Care Teams Personal Injury Law Specialist Relationship Specialty Start Date End Date Mikala Best APRN, MAIL TELLER PCP - General 07/16/10 02/11/12 [address] [address] [place] [address] documented as of this encounter
--- OUTSIDE RECORDS SUMMARY | 2022-03-23 17:36 | XMS_ITS | Encounter Summary ---
:1980 Author Organization [facility] Address [address] [address] Care Team Providers Name Role Phone Mikala Best BONITA URBINA Primary Care Provider [phone] Encounter Details Date Type Department Care Team Description 2007 Office Visit [facility] [place] [address] [place] [address] Social History Tobacco Use Types Packs/Day Years Used Date Smoking Tobacco: Never Assessed Sex Assigned at Date Recorded Not on file documented as of this encounter Last Filed Vital Signs Vital Sign Reading Time Taken Comments Blood Pressure 112/66 2007 6:47 PM OPTICAL MANUFACTURING TECHNICIAN Pulse 96 2007 6:47 PM OPTICAL MANUFACTURING TECHNICIAN Temperature 37.4 ??C (99.3 ??F) 2007 6:47 PM OPTICAL MANUFACTURING TECHNICIAN C: 37 .4 C Respiratory Rate 18 2007 6:47 PM OPTICAL MANUFACTURING TECHNICIAN Oxygen Saturation - - Inhaled Oxygen Concentration - - Weight - - Height - - Body Mass Index - - documented in this encounter Progress Notes Arely Patel MD - 2007 12:01 AM CST Progress Notes signed by Arely Patel MD at 04/12/07 0075 Author: Arely Patel MD Service: (none) Author Type: Physician Filed: 08/03/10 6863 Note Time: 03/18/07 0001 Status: Signed Want Ad Receiver: Arely Patel MD (Physician) NAME: SHAMIR NOALSCO MR#: [id number] ACCT: [id number] VISIT: [id number] DICTATING CLINICIAN: ARELY PATEL MD JOB: [id number] LOC: 520 CLINIC PROGRESS NOTE DATE OF VISIT: 2007 SUBJECTIVE: : 1980. Ms. Nolasco is celebrating her 27th birthday here with us today in Urgent Care. She was seen on 03/14/07 and diagnosed with bronchitis. She has been vomiting since last night. This has been rather forceful vomiting. She has noted some bloody streaks in the vomitus each of the last 3 times. She says she is not able to keep down anything. She has still been running a fever. She does not think this is secondary to her medication. Her daughter had similar symptoms over the weekend but daughter is feeling better. Right now the vomiting is the worse symptom. It started about 9 o'clock last night. She was supposed to be out celebrating her birthday with some friends tonight. Her did come later on in the evening. REVIEW OF SYSTEMS: No diarrhea has been noted. She has a sore throat and head congestion. She is a nonsmoker. Remainder of review of systems is negative. ADR/ALLERGIES: NONE. MEDICATIONS: Reviewed in the med list of LastWord. OBJECTIVE: VS: BP: 112/66. T: 99.4. P: 96. R: 18. Ms. Nolasco looks fatigued and moderately ill. TMs: Dull. Lips and mucous membranes are dry. CHEST: Shows scattered rhonchi. ABDOMEN: Shows hyperactive bowel sounds, tender to palpation in the epigastric area which she believes is secondary to the vomiting. No masses are appreciated. An IV is started at 7:30 p.m. Ms. Nolasco received 2 liters of normal saline, along with Zofran 4 mg IV on 2 occasions. The vomiting resolved and Ms. Nolasco was then given Toradol 30 mg IV for complaint of headache. She was feeling much better. The IV was discontinued at 9:15 p.m. ASSESSMENT: 1. Gastroenteritis. 2. Dehydration. 3. Headache. PLAN: Zofran 4 mg ODT, 1 or 2 b.i.d. #10. Small sips of fluid. Recheck if symptoms are changing, persisting or worsening. SMO:[id number] C: 03/27/07 11:22 DOCUMENT: [id number] CAL MANUFACTURING TECHNICIAN documented in this encounter Plan of Treatment Not on filedocumented as of this encounter Visit Diagnoses Not on filedocumented in this encounter Care Teams Deposition Reporter Relationship Specialty Start Date End Date Mikala Best APRN, BOBBIN DUMPER PCP - General 07/16/10 02/11/12 [address] [address] [place] [address] documented as of this encounter
--- OUTSIDE RECORDS SUMMARY | 2022-03-23 17:36 | XMS_ITS | Encounter Summary ---
:1980 [facility] Address [address] [address] Care Team Providers Name Role Phone Gilles Bestmacario URBINA CNP Primary Care Provider [phone] Encounter Details Date Type Department Care Team Description 11/18/2007 Office Visit [facility] re Kehinde Orellana MD [address] [place] [address] [place] [address] [phone] Social History Tobacco Use Types Packs/Day Years Used Date Smoking Tobacco: Never Assessed Sex Assigned at Date Recorded Not on file documented as of this encounter Last Filed Vital Signs Vital Sign Reading Time Taken Comments Blood Pressure 103/53 11/18/2007 10:01 AM CDT Pulse 73 11/18/2007 10:01 AM CDT Temperature 36.8 ??C (98.2 ??F) 11/18/2007 10:01 AM ORAL C: 36.8 C CDT Respiratory Rate 16 11/18/2007 10:01 AM CDT Oxygen Saturation - - Inhaled Oxygen Concentration - - Weight - - Height - - Body Mass Index - - documented in this encounter Progress Notes Kehinde Orellana - 11/18/2007 12:01 AM CDT Progress Notes signed by Kehinde Orellana MD at 11/19/07 1532 Author: Kehinde Orellana MD Service: (none) Author Type: Physician Filed: 08/04/10 0621 Note Time: 11/18/07 0001 Status: Signed Bell Tier: Kehinde Orellana MD (Physician) NAME: SHAMIR NOLASCO MR#: [id number] ACCT: [id number] VISIT: [id number] DICTATING CLINICIAN: KEHINDE ORELLANA MD CONFIRM #: [id number] LOC: 520 CLINIC PROGRESS NOTE DATE OF VISIT: 11/18/2007 SUBJECTIVE: 27-year-old comes to Urgent Care because of upper back and neck pain over the past 2 days. The neck is a moderate ache located primarily on the left side worsening with bending, twisting, turning, lifting, or any neck range of motion. There is some reduction by rest. No other modifying factors or associated symptoms. ADR/ALLERGIES: REVIEWED IN PHP OF LASTWORD. MEDICATIONS: Reviewed in PHP of LastWord. PAST HISTORY: No history of neck or back problems. SOCIAL HISTORY: Patient does not smoke. 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 REVIEW OF SYSTEMS: No paresthesias, numbness, or weakness. No fever, sore throat, or headache. No nausea or vomiting. OBJECTIVE: VS: BP: 103/53. T: 98.3. P: 72. R: 16. Wt: 150. CONSTITUTIONAL: Patient is nontoxic and alert. SKIN: Warm and dry. EYES: Clear. ENT: Unremarkable. NECK: Patient has tenderness of the left trapezius muscle, no cervical spine tenderness. The tenderness extends into the upper thoracic paraspinous muscle portion of the trapezius. Patient's neck range of motion is significantly reduced in all directions. LYMPHATIC: No adenopathy. LUNGS: Clear, good breath sounds. CARDIOVASCULAR: Regular sinus rhythm. MUSCULOSKELETAL: Patient ambulatory. NEUROLOGIC: Normal alertness, attention, affect, behavior, speech. Normal patient educator strength and upper arm strength, normal wrist extensor strength, finger spread and adduction strength of the fingers, normal thumb and index pincer strength. Deep tendon reflexes of the upper and lower extremities normal, straight-leg raising is negative. There is no leg length discrepancy. ASSESSMENT: Neck pain secondary to left trapezius strain. PLAN: Patient to use ibuprofen for inflammation 600 mg 3 times a day for 5-7 days adding Tylenol if needed for pain, and will use Robaxin for the spasm; but warned about sedation, not to use ? or driving. Patient to be reassessed if this is not dramatically improved over the next 7-10 days or at any time for worsening, particularly any motor weakness. FINAL DIAGNOSIS: Neck pain. DMR:[id number] C: 11/19/07 09:16 CONFIRM #: [id number] R WOOD PROCESSING MACHINE OPERATOR documented in this encounter Plan of Treatment Not on filedocumented as of this encounter Visit Diagnoses Not on filedocumented in this encounter Care Teams Distribution Engineering Technologist Relationship Specialty Start Date End Date Mikala Best APRN, WASTEWATER SUPERVISOR PCP - General 07/16/10 02/11/12 [address] [place] [place] [address] documented as of this encounter
--- OUTSIDE RECORDS SUMMARY | 2022-03-23 17:36 | XMS_ITS | Encounter Summary ---
:1980 Author Organization [facility] Address [address] [address] Care Team Providers Name Role Phone Mikala Best APRN, CNP Primary Care Provider [phone] Encounter Details Date Type Department Care Team Description 06/09/2009 PN Conversion Only [facility] Social History Tobacco Use Types Packs/Day Years Used Date Smoking Tobacco: Never Assessed Sex Assigned at Date Recorded Not on file documented as of this encounter Plan of Treatment Not on filedocumented as of this encounter Visit Diagnoses Not on filedocumented in this encounter Care Teams Store Gift Wrap Associate Relationship Specialty Start Date End Date Mikala Best APRN, CNP PCP - General 07/16/10 02/11/12 [address] [place] [address] documented as of this encounter
--- OUTSIDE RECORDS SUMMARY | 2022-03-23 17:36 | XMS_ITS | Encounter Summary ---
:1980 [facility] Address [address], [place] [address] Care Team Providers Name Role Phone Nasir Mikala URBINA CNP Primary Care Provider [phone] Encounter Details Date Type Department Care Team Description 05/02/2008 Office Visit [facility] [place] [address] [address] [place] [address] [place] [address] [phone] (Wo rk) Social History Tobacco Use Types Packs/Day Years Used Date Smoking Tobacco: Never Assessed Sex Assigned at Date Recorded Not on file documented as of this encounter Last Filed Vital Signs Vital Sign Reading Time Taken Comments Blood Pressure 110/68 05/02/2008 1:06 PM PRN PHYSICAL THERAPIST Pulse 72 05/02/2008 1:06 PM PRN PHYSICAL THERAPIST Temperature - - Respiratory Rate - - Oxygen Saturation - - Inhaled Oxygen Concentration - - Weight 71.2 kg (156 lb 15.8 oz) 05/02/2008 1:06 PM C: 7 1.2kg PRN PHYSICAL THERAPIST Height 165.7 cm (5' 5.25) 05/02/2008 1:06 PM C: 165.7c m PRN PHYSICAL THERAPIST Body Mass Index 25.93 05/02/2008 1:06 PM PRN PHYSICAL THERAPIST documented in this encounter Progress Notes Roxie Jiang MD - 05/02/2008 12:01 AM CST Progress Notes signed by MARIA LUISA Ruiz at 05/02/08 5787 Author: MARIA LUISA Ruiz Service: (none) Author Type: Physician Filed: 08/04/10 1020 Note Time: 05/02/08 0001 Status: Signed Taker Off Braker Machine: MARIA LUISA Ruiz (Resource) SUBJECTIVE: This 48 year old woman, who comes in today for a physical. She has no particular concerns at this time. 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 Past Surgical History: None MEDICATIONS: Acyclovir 400 mg twice a day as needed. 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 ROS: Weight is fairly stable. Does try to make healthy food choices. Bowel movements occur every two to 3 days.. Her menses are quite regular, occurring on a monthly basis. The Pap smears in the past have been normal. She and her rely on condoms for contraception. No chronic headaches. Good energy levels. The rest of the complete review of systems negative. Family History: Mother with hyperlipidemia. Father quite healthy. Hyperlipidemia in maternal grandmother and maternal aunt also. One sister- healthy. Social History: with one daughter, age 3. 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 Came back at [facility] from a three month stint in [facility]. HABITS: No smoking, occas.alcohol. Is quite active. HEALTH CARE MAINTENANCE: . Last tetanus booster in 2003. OBJECTIVE: Well appearing, young woman. Vital Signs : reviewed on LastWord flow sheet .Head: Normocephalic. Eyes: PERRLA, full EOM. External exams normal. Ears: Normal pinnae, canals, and TM's. Nose: Patent, without deformity. Throat: Moist mucous membranes without lesions, erythema, or exudate. Neck: Supple, without masses, lymphadenopathy or tenderness.No thyromegaly. BREASTS: Soft , nontender, without any masses. No nipple discharge or axillary adenopathy present.Respiratory: Normal respiratory effort. Lungs are clear with good breath sounds. Heart: RR without murmurs, rubs, or gallops. Abdomen: soft,non-tender,without masses.. Pelvic: No external lesions. Normal vagina and cervix with healthy appearing mucosa and no lesions. Uterus: Normal size, shape, and consistency, mobile without palpable lesions. Adenexa: Nontender without palpable mass. Rectum: $Normal sphincter tone, without palapable lesions. EXTREMITIES: Good peripheral pulses, no ankle edema. Full range of motion. SKIN: Warm and moist. No abnormal lesions seen. MUSCULOSKETAL: UnremarkableNeuro: CN 2-12 intact. Strength and sensation intact in all extremities. Motor function intact. LABS: Pap smear done ASSESSMENT: Physical exam within normal limits. Continue with regular exercise PLAN: Routine, age-appropriate counseling. Will get a cholesterol fractionation within the next week. counseling reviewed. She and her are not sure if they are going to expand the family. *SH~DNS~FEMALEPHYS PHYSICAL THERAPIST documented in this encounter Plan of Treatment Not on filedocumented as of this encounter Visit Diagnoses Not on filedocumented in this encounter Care Teams Recording Studio Internship Relationship Specialty Start Date End Date Mikala Best APRN, SUPERVISOR CARDING PCP - General 07/16/10 02/11/[address] [place] [address] documented as of this encounter
--- OUTSIDE RECORDS SUMMARY | 2022-03-23 17:36 | XMS_ITS | Encounter Summary ---
:1980 [email or web address] Address [address], [place] [address] Care Team Providers Name Role Phone Bevjenny Mikala URBINA CNP Primary Care Provider [phone] Encounter Details Date Type Department Care Team Description 05/24/2009 Office Visit Amanda Rico, Obstetrics/Gynecolog y BONITA URBINA [address] [place] [address] Social History Tobacco Use Types Packs/Day Years Used Date Smoking Tobacco: Never Assessed Sex Assigned at Date Recorded Not on file documented as of this encounter Last Filed Vital Signs Vital Sign Reading Time Taken Comments Blood Pressure 90/70 05/24/2009 4:20 PM SEMI CONDUCTOR ASSEMBLER Pulse - - Temperature - - Respiratory Rate - - Oxygen Saturation - - Inhaled Oxygen Concentration - - Weight 76.2 kg (167 lb 15.9 oz) 05/24/2009 4:20 PM C: 7 6.2kg SEMI CONDUCTOR ASSEMBLER Height 167.6 cm (5' 6) 05/24/2009 4:20 PM C: 167.6cm SEMI CONDUCTOR ASSEMBLER Body Mass Index 27.11 05/24/2009 4:20 PM SEMI CONDUCTOR ASSEMBLER documented in this encounter Progress Notes Amanda Stockton APRN, CNP - 05/24/2009 12:01 AM CST Progress Notes signed by BHUMIKA Joseph at 05/24/09 1808 Author: BHUMIKA Joseph Service: (none) Author Type: Nurse Practitioner Filed: 08/04/102006 Note Time: 05/24/09 0001 Status: Signed Director Of Compensation: Amanda Stockton BONITA (Nurse Practitioner) Subjective: Patient presents for her annual exam. She would like STD screening. She would also like prescription of Valtrex for oral herpes. She would like a prescription of number 30 due to co-pay. She generally experiences 2 or 3 outbreaks in a row in 19 go 6 months without an outbreak. She will be deployed to [facility] for 3 months and would like to have enough on hand. She does not want to take suppressive therapy. She would also like control pills and has been interested in Seasonale. She recently treated herself [id number] with Monistat one. That was a couple of days ago and symptoms are not completely resolve. Following exam, she would like to have another Diflucan. Social history: She is a 29-year-old female. She is . 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 She has a 4-year-old daughter. She will leave in July for [facility]. Medical/surgical history is updated on patient health profile. Medications/drug allergies are updated in last word. Gynecologic history: Last menstrual period 05/15/2009. Contraception is in the form of condoms. History is negative for abnormal Pap smears or STDs. Obstetric history: . Family history is positive for father with triple bypass at age 66, grandparents with dementia and heart disease. Lifestyle and habits: She is a nonsmoker, consumes social quantities of alcohol, exercises regularly, consumes adequate calcium, does wear her seatbelt, does not wear sunscreen, does not practice breast self exam and is safe in her relationship. Preventative health care: She is up-to-date on all immunizations. She will have cholesterol and glucose testing next year. Remainder of complete review of systems negative. Vital signs as noted in last word flow sheet. General Appearance: Patient is a pleasant appearing women in no acute distress. Skin is normal in color and warm to touch. Psychiatric: Patient is alert and oriented to time and place. Affect is appropriate. She is well groomed. Neurologic: PERRL. Normal gait, coordination and strength. Neck: Normal appearance. No thyromegaly. No lymphadenopathy. Lungs: Clear to ascultation bilaterally. Cardiac: Normal sinus rythum. Normal S1/S2. No murmurs. Breasts: Normal exam to inspection and palpation. No axilla nodes. Abdomen: Soft and non-tender without organmegaly. Normal bowel sounds are ascultated in all four quadrants. External genitalia: Urethra is non-inflamed. Exam mons pubis, labia minora, labia majora and posterior forchette without redness or lesions. Exam internal vaginal vault shows slight red rugae. Minimal amount of creamy discharge is present in the vaginal vault. Cervix appears normal to inspection. STDPR probe sampling is obtained at cervical os. Pap smear obtained using cytobrush. Uterus is normal size, firm, ovoid, mobile without tenderness. Adnexal exam unremarkable. Anus without redness or hemorrhoids. Skin: No lesions. Normal hydration. 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 STD screening. Medication refills for oral herpes. Contraceptive counseling and initial prescription for oral contraceptives. Recent treatment [id number] for monilia vaginitis which is not completely cleared. Plan: Reviewed online medical record. Reviewed PIE [facility]AKER health history which is sent for scanning. Pending tests include Pap smear, hepatitis B antigen, hepatitis C antibody, HIV, RPR and STDPR probe. She will be informed of test results when available. Discussed findings on exam consistent with possibly persistent monilia vaginitis. Rx Diflucan 150 mg one p.o. with two refills. Advised that when she is taking oral contraceptives, she will need interim contraception if using Diflucan. Rationale discussed. Rx Seasonale, dispense number 91 with 4 refills. Action, administration, efficacy, possible side effects, warning signs and benefits versus risks discussed. Rx Deltrex 1 g, dispense number 30 with 4 refills. Option for suppressive therapy discussed based on the frequency of outbreaks described. Return to clinic in one year or p.r.n. *SH~DNS~normal exam CONDUCTOR ASSEMBLER documented in this encounter Plan of Treatment Not on filedocumented as of this encounter Visit Diagnoses Not on filedocumented in this encounter Care Teams Pull Out Operator Relationship Specialty Start Date End Date Mikala Best APRN, CNP PCP - General 07/16/10 02/11/12 [address] [place] [place] [address] documented as of this encounter
--- OUTSIDE RECORDS SUMMARY | 2022-03-23 17:36 | XMS_ITS | Encounter Summary ---
:1980 [facility] Address [address] [place] [address] Care Team Providers Name Role Phone Gilles Bestmacario URBINA, BONITA Primary Care Provider [phone] Encounter Details Date Type Department Care Team Description 05/02/2008 PN Conversion Only [place] [facility] [place] Roxie Jiang, [address] [facility] [place] [address] [facility] [address] [place] [place] [phone] (Wo rk) Social History Tobacco Use Types Packs/Day Years Used Date Smoking Tobacco: Never Assessed Sex Assigned at Date Recorded Not on file documented as of this encounter Plan of Treatment Not on filedocumented as of this encounter Procedures Procedure Name Priority Date/Time Associated Comments Diagnosis ANATOMICAL PATH Routine 05/02/2008 9:24 AM Result s for this LIQUID BASED GUN NUMBER procedure are i n the results section. documented in this encounter Results Pap Smear (05/02/2008 9:24 AM GUN NUMBER) [facility] Method Time Signature PAP Smear SEE TEXT No normal HP CONVERSION Liquid Based range Comment: Patient: SHAMIR NOLASCO ? CERVICAL CYTOLOGY REPORT Pathology # ??[id number] ?Date Obtained: ? Date Received: CYTOLOGIC IMPRESSION: Negative for intraepithelial lesion or m alignancy. Verified 05/04/08 by: ??LBM ?(electronic signature) ? ANDREA TIONAL DATA LMP: CLINICAL HIST LIQUID BASED PAP CERVICAL SPECIMEN ADEQUACY: ?? Satisfactory. ENDOCERVICAL CELLS: ??Absent. Specimen (Source) Anatomical Collection Method Collection Time Re ceived Time Location / / Volume Laterality 05/02/2008 9:24 AM GUN NUMBER Roxie Jiang MD LAB_1 Performing Organization Address City/State/ZIP Code Phon e Number HP CONVERSION documented in this encounter Visit Diagnoses Not on filedocumented in this encounter Care Teams Railroad Firer Relationship Specialty Start Date End Date Mikala Best, SIZING SPRAYER, FIXED INCOME PORTFOLIO MANAGER PCP - General 07/16/10 02/11/12 [address] [place] [address] documented as of this encounter
--- OUTSIDE RECORDS SUMMARY | 2022-03-23 17:36 | XMS_ITS | Encounter Summary ---
:1980 Author Organization [facility]ly [facility] Address [address] [address] Care Team Providers Name Role Phone Mikala Best APRN, CNP Primary Care Provider [phone] Encounter Details Date Type Department Care Team Description 05/31/2008 PN Conversion Only [place] [address] [address] [place] [address] Social History Tobacco Use Types Packs/Day Years Used Date Smoking Tobacco: Never Assessed Sex Assigned at Date Recorded Not on file documented as of this encounter Last Filed Vital Signs Vital Sign Reading Time Taken Comments Blood Pressure 109/71 05/31/2008 4:50 PM NATIONAL SALES DIRECTOR Pulse 81 05/31/2008 4:50 PM NATIONAL SALES DIRECTOR Temperature 37.3 ??C (99.1 ??F) 05/31/2008 4:50 PM NATIONAL SALES DIRECTOR C: 37 .3 C Respiratory Rate 16 05/31/2008 4:50 PM NATIONAL SALES DIRECTOR Oxygen Saturation 98% 05/31/2008 4:50 PM NATIONAL SALES DIRECTOR Inhaled Oxygen Concentration - - Weight - - Height - - Body Mass Index - - documented in this encounter Plan of Treatment Not on filedocumented as of this encounter Visit Diagnoses Not on filedocumented in this encounter Care Teams Reception Centre Manager Relationship Specialty Start Date End Date Mikala Best APRN, CNP PCP - General 07/16/10 02/11/12 [address] [place] [place] [address] documented as of this encounter
--- OUTSIDE RECORDS SUMMARY | 2022-03-23 17:36 | XMS_ITS | Encounter Summary ---
:1980 [facility] Address [address], [place] [address] Care Team Providers Name Role Phone Mikala Best APRN, CNP Primary Care Provider [phone] Encounter Details Date Type Department Care Team Description 06/23/2009 PN Conversion Only [place] [address] [address] [place] [address] Social History Tobacco Use Types Packs/Day Years Used Date Smoking Tobacco: Never Assessed Sex Assigned at Date Recorded Not on file documented as of this encounter Plan of Treatment Not on filedocumented as of this encounter Visit Diagnoses Not on filedocumented in this encounter Care Teams Electronic Prepress Operator Relationship Specialty Start Date End Date Mikala Best APRN, CNP PCP - General 07/16/10 02/11/12 [address] [place] [id number] documented as of this encounter
--- OUTSIDE RECORDS SUMMARY | 2022-03-23 17:36 | XMS_ITS | Encounter Summary ---
:1980 Author Organization [facility] Address [address] [place] [address] Care Team Providers Name Role Phone Gilles Bestmacario URBINA, BONITA Primary Care Provider [phone] Encounter Details Date Type Department Care Team Description 09/22/2006 PN Conversion Only [place] [address] [place] [address] Social History Tobacco Use Types Packs/Day Years Used Date Smoking Tobacco: Never Assessed Sex Assigned at Date Recorded Not on file documented as of this encounter Plan of Treatment Not on filedocumented as of this encounter Procedures Procedure Name Priority Date/Time Associated Comments Diagnosis ANATOMICAL PATH Routine 09/22/2006 9:15 AM Result s for this LIQUID BASED CDT procedure are i n the results section. documented in this encounter Results Pap Smear (09/22/2006 9:15 AM CDT) [facility] gist Method Time Signature PAP Smear SEE TEXT No normal HP CONVERSION Liquid Based range Comment: Patient: SHAMIR NOLASCO ? CERVICAL CYTOLOGY REPORT Pathology # ??[id number] ?Date Obtained: ? Date Received: CYTOLOGIC IMPRESSION: Negative for intraepithelial lesion or m alignancy. Verified 09/25/06 by: ? (electronic signature) ? ANDREA TIONAL DATA LMP: ? CLINICAL HIST LIQUID BASED PAP CERVICAL SPECIMEN ADEQUACY: ?? Satisfactory. ENDOCERVICAL CELLS: ??Present. Specimen (Source) Anatomical Collection Method Collection Time Re ceived Time Location / / Volume Laterality 09/22/2006 9:15 AM CDT Che Fall RN LAB_1 Performing Organization Address City/State/ZIP Code Phon e Number HP CONVERSION documented in this encounter Visit Diagnoses Not on filedocumented in this encounter Care Teams Furnace Puncher Relationship Specialty Start Date End Date Mikala Best APRN, MORGUE TECHNICIAN PCP - General 07/16/10 02/11/12 [address] [place] [place] [id number] documented as of this encounter
--- OUTSIDE RECORDS SUMMARY | 2022-03-23 17:36 | XMS_ITS | Encounter Summary ---
:1980 Author Organization [facility] Address [address] [address] Care Team Providers Name Role Phone BevGilles alvaradomacario URBINA CNP Primary Care Provider [phone] Encounter Details Date Type Department Care Team Description 03/14/2007 Office Visit [facility] [place] [id number] [place] [phone] (Wo rk) Social History Tobacco Use Types Packs/Day Years Used Date Smoking Tobacco: Never Assessed Sex Assigned at Date Recorded Not on file documented as of this encounter Last Filed Vital Signs Vital Sign Reading Time Taken Comments Blood Pressure 109/53 03/14/2007 10:59 C: Dynamap AM STRAW HAT WASHER OPERATOR Pulse 66 03/14/2007 10:59 AM STRAW HAT WASHER OPERATOR Temperature 36.8 ??C (98.2 ??F) 03/14/2007 10:59 ORAL C: 36. 8 C AM STRAW HAT WASHER OPERATOR Respiratory Rate 14 03/14/2007 10:59 AM STRAW HAT WASHER OPERATOR Oxygen Saturation 98% 03/14/2007 10:59 C: Oximeter S pot AM STRAW HAT WASHER OPERATOR Check([facility]) Inhaled Oxygen - - Concentration Weight - - Height - - Body Mass Index - - documented in this encounter Progress Notes Freida Goel MD - 03/14/2007 12:01 AM CST Progress Notes signed by Freida Goel MD at 03/27/07 5316 Author: Freida Goel MD Service: (none) Author Type: Physician Filed: 08/03/10 2338 Note Time: 03/14/07 0001 Status: Signed Clothing Sorter: Freida Goel MD (Physician) NAME: SHAMIR NOLASCO MR#: [id number] ACCT: [id number] VISIT: [id number] DICTATING CLINICIAN: FREIDA GOEL MD JOB: [id number] LOC: 520 CLINIC PROGRESS NOTE DATE OF VISIT: 03/14/2007 SUBJECTIVE: CHIEF COMPLAINT: Cold symptoms. HPI: This pleasant 26-year-old comes in today complaining of cold symptoms that has been going on for the last 2 weeks. She has had a runny nose, some ear congestion and a cough. She also feels like her sinuses are quite congested. She is not short of breath. She has not been sleeping well because she has been coughing so much and she has had a lot of sinus pain and pressure PAST MEDICAL HISTORY: Reviewed through LastWord. PAST SURGICAL HISTORY: Reviewed through LastWord. MEDICATIONS: Reviewed through LastWord. ADR/ALLERGIES: NO KNOWN DRUG ALLERGIES. OBJECTIVE: VS: BP: 109/53. T: 98.2. P: 66. R: 14. O2 Sat: 98% on room air. GENERAL: Alert and oriented in no apparent distress. Tympanic membranes: Reveal no sign of infection. Sinuses: Nontender. Oropharynx: [place] and moist. No ?. LUNGS: Reveals scattered rhonchi, but do clear with coughing. HEART: Regular without murmurs, rubs, or gallops. ABDOMEN: Soft and nontender. EXTREMITIES: No rash or cyanosis. ASSESSMENT: Bronchitis. PLAN: Zithromax 500 mg 1st day, 250 days 2-5. Robitussin with codeine 2 teaspoons as needed for cough every 6 hours. Follow up if symptoms persist or worsen. PINA:[id number] C: 03/17/07 11:09 DOCUMENT: [id number] W HAT WASHER OPERATOR documented in this encounter Plan of Treatment Not on filedocumented as of this encounter Visit Diagnoses Not on filedocumented in this encounter Care Teams [employer] Relationship Specialty Start Date End Date Mikala Best APRN, CHILD PROTECTIVE INVESTIGATOR PCP - General 07/16/10 02/11/12 [address] [place] [address] documented as of this encounter
--- OUTSIDE RECORDS SUMMARY | 2022-03-23 17:36 | XMS_ITS | Encounter Summary ---
:1980 Author Organization [facility] Address [address], [place] [address] Care Team Providers Name Role Phone Mikala Best APRN, CNP Primary Care Provider [phone] Encounter Details Date Type Department Care Team Description 01/24/2010 Office Visit [facility] [place] [address] [address] [place], [place] [phone] (Wo rk) Social History Tobacco Use Types Packs/Day Years Used Date Smoking Tobacco: Never Assessed Sex Assigned at Date Recorded Not on file documented as of this encounter Plan of Treatment Not on filedocumented as of this encounter Visit Diagnoses Not on filedocumented in this encounter Care Teams Welfare Eligibility Worker Relationship Specialty Start Date End Date Mikala Best APRN, CNP PCP - General 07/16/10 02/11/[address] [place] [address] documented as of this encounter
--- OUTSIDE RECORDS SUMMARY | 2022-03-23 17:36 | XMS_ITS | Encounter Summary ---
:1980 Author Organization [facility] Address [address] [address] Care Team Providers Name Role Phone Bevjenny Mikala URBINA CNP Primary Care Provider [phone] Encounter Details Date Type Department Care Team Description 10/13/2008 Office Visit [facility] [place] [address] [address] [place] [address] [place] [address] [phone] (Wo rk) Social History Tobacco Use Types Packs/Day Years Used Date Smoking Tobacco: Never Assessed Sex Assigned at Date Recorded Not on file documented as of this encounter Last Filed Vital Signs Vital Sign Reading Time Taken Comments Blood Pressure 104/64 10/13/2008 1:09 PM CDT Pulse 72 10/13/2008 1:09 PM CDT Temperature - - Respiratory Rate - - Oxygen Saturation - - Inhaled Oxygen Concentration - - Weight 73.9 kg (162 lb 15.8 oz) 10/13/2008 1:09 PM CDT C: 73.9kg Height - - Body Mass Index 26.92 05/02/2008 1:06 PM TELEPHONE SERVICES SALES REPRESENTATIVE documented in this encounter Progress Notes Roxie Jiang MD - 10/13/2008 12:01 AM CDT Progress Notes signed by MARIA LUISA Ashley at 10/16/08 1947 Author: MARIA LUISA Ashley Service: (none) Author Type: Physician Filed: 08/04/10 1442 Note Time: 10/13/08 0001 Status: Signed Fruit Harvest Worker: MARIA LUISA Ashley (Resource) NAME: SHAMIR NOLASCO MR#: [id number] ACCT: [id number] VISIT: [id number] DICTATING CLINICIAN: MARIA LUISA ASHLEY CONFIRM #: [id number] LOC: 502 CLINIC PROGRESS NOTE DATE OF VISIT: 10/13/2008 SUBJECTIVE: Shamir is a 28-year-old woman who comes in today with some concerns about yeast infections. She notes that, probably over the last 9 months, she has been getting what she believes are yeast infections which seem to occur usually after she and her have intercourse. She would get itchiness in the vaginal area and believes that she does get a discharge with it. She has been self-treating with Monistat. Her question today is that she wonders if she is getting this from her . He has absolutely no rash or any type of symptoms of itchiness. They do use condoms for contraception and she is not sure if he has recently changed the brand of condoms that they use. Patient's last menses was on 09/19/08. She notes that her breasts are feeling a bit sore and she wonders if she might be . MEDICATIONS: She is not on any chronic medications. OBJECTIVE: VS: BP: 104/64. P: 72 a minute, regular, good volume. Wt: 163 lb. On examination, pleasant young woman looks well. Otherwise, not further examined today. ASSESSMENT: Patient with a history of possible yeast infection. PLAN: I am concerned that, since her symptoms are directly related to intercourse and the use of condoms, she may indeed have developed some type of allergy to latex. I did advise that she should check with her regarding if he has recently changed the type of condoms that they are using. Otherwise, when next she has a discharge, I would like her to come in to the clinic to have this checked. She is interested in having a test done, but I would like her to wait at least until her menses are late before we get this checked. She is not yet due for her menses. GLB:[id number] C: 10/13/08 18:16 CONFIRM #: [id number] documented in this encounter Plan of Treatment Not on filedocumented as of this encounter Visit Diagnoses Not on filedocumented in this encounter Care Teams Digital Specialist Relationship Specialty Start Date End Date Mikala Best APRN, DENTAL RESIDENT PCP - General 07/16/10 02/11/12 [address] [place] [address] documented as of this encounter
--- OUTSIDE RECORDS SUMMARY | 2022-03-23 17:36 | XMS_ITS | Encounter Summary ---
:1980 Author Organization [facility] Address [address] [place] [address] Care Team Providers Name Role Phone Mikala Best APRN, CNP Primary Care Provider Encounter Details Date Type Department Care Team Description 05/24/2009 PN Conversion Only [place] [facility] N Amanda [place], [address] [facility] [place] [address] Social History Tobacco Use Types Packs/Day Years Used Date Smoking Tobacco: Never Assessed Sex Assigned at Date Recorded Not on file documented as of this encounter Plan of Treatment Not on filedocumented as of this encounter Procedures Procedure Name Priority Date/Time Associated Comments Diagnosis SEXUALLY TRANSMITTED Routine 05/24/2009 6:12 PM R esults for this DISEASE PROBE SKOOG MACHINE OPERATOR procedure are in the results section. HIV ANTIBODY Routine 05/24/2009 5:10 PM Results f or this SKOOG MACHINE OPERATOR procedure are i n the results section. RPR BLOOD Routine 05/24/2009 5:10 PM Results f or this SKOOG MACHINE OPERATOR procedure are i n the results section. HEP B SURFACE Routine 05/24/2009 5:10 PM Results for this ANTIGEN, NO REFLEX SKOOG MACHINE OPERATOR procedure are in the results section. HEPATITIS C ANTIBODY, Routine 05/24/2009 5:10 PM Results for this WITH REFLEX SKOOG MACHINE OPERATOR procedure are i n the results section. ANATOMICAL PATH Routine 05/24/2009 7:41 AM Result s for this LIQUID BASED SKOOG MACHINE OPERATOR procedure are i n the results section. documented in this encounter Results Sexually Transmitted Disease Probe (05/24/2009 6:12 PM SKOOG MACHINE OPERATOR) [facility] gist Method Time Signature Sexually SEE TEXT HP CONVERSION Transmitted Disease Probe Comment: Patient: SHAMIR NOLASCO Sexually Trans Disease Probe ?Collected: ??[id number] ??[id number] Source: ENDOCERV ?Processed: ??[id number] ??[id number] ? V Final Report ------ ?[id number] ??[id number] No Chlamydia trachomatis detected by amp lified DNA assay No Neisseria gonorrhoeae detected by amp lified DNA assay The Probete Amplified DNA assay is sadaf red by the FDA for non-medicolegal diagnostic testing in the adult population. Specimen (Source) Anatomical Collection Method Collection Time Re ceived Time Location / / Volume Laterality 05/24/2009 6:12 PM SKOOG MACHINE OPERATOR Amanda Stockton APRN, CNP LAB_1 Performing Organization Address [facility] Code Phon e Number HP CONVERSION Hepatitis C Antibody, with Reflex (05/24/2009 5:10 PM SKOOG MACHINE OPERATOR) Analysis Performed At [facility] Time Signature Hepatitis C Non Reac Non Reac HP CONVERSION Antibody Specimen (Source) Anatomical Collection Method Collection Time Re ceived Time Location / / Volume Laterality 05/24/2009 5:10 PM SKOOG MACHINE OPERATOR Amanda Stockton APRN, CNP LAB_1 Performing Organization Address [facility] Code Phon e Number HP CONVERSION Hep B Surface Antigen, No Reflex (05/24/2009 5:10 PM SKOOG MACHINE OPERATOR) Analysis Performed At Patho logist Time Signature Hep B Surf Ag Negative Negative HP CONVERSION Specimen (Source) Anatomical Collection Method Collection Time Re ceived Time Location / / Volume Laterality 05/24/2009 5:10 PM SKOOG MACHINE OPERATOR Amanda Stockton APRN, BONITA LAB_1 Performing Organization Address City/[facility]/ZIP Code Phon e Number HP CONVERSION HIV ANTIBODY (05/24/2009 5:10 PM SKOOG MACHINE OPERATOR) P athologist Signature HIV 1/HIV 2 Non Reac Non Reac HP CONVERSION Specimen (Source) Anatomical Collection Method Collection Time Re ceived Time Location / / Volume Laterality 05/24/2009 5:10 PM SKOOG MACHINE OPERATOR Amanda Stockton APRN, CNP LAB_1 Performing Organization Address City/State/ZIP Code Phon e Number HP CONVERSION RPR BLOOD (05/24/2009 5:10 PM SKOOG MACHINE OPERATOR) P athologist Signature RPR Non Reac Non Reac HP CONVERSION Specimen (Source) Anatomical Collection Method Collection Time Re ceived Time Location / / Volume Laterality 05/24/2009 5:10 PM SKOOG MACHINE OPERATOR Amanda Stockton APRN, CNP LAB_1 Performing Organization Address City/[facility]/ZIP Code Phon e Number HP CONVERSION Pap Smear (05/24/2009 7:41 AM SKOOG MACHINE OPERATOR) Patholo gist Method Time Signature PAP Smear SEE TEXT No normal HP CONVERSION Liquid Based range Comment: Patient: SHAMIR NOLASCO ? CERVICAL CYTOLOGY REPORT Pathology # ??[id number] ?Date Obtained: ? Date Received: CYTOLOGIC IMPRESSION: Negative for intraepithelial lesion or m alignancy. Verified 05/29/09 by: ? (electronic signature) ? ANDREA TIONAL DATA LMP: CLINICAL HIST LIQUID BASED PAP CERVICAL SPECIMEN ADEQUACY: ?? Satisfactory. ENDOCERVICAL CELLS: ??Absent. Specimen (Source) Anatomical Collection Method Collection Time Re ceived Time Location / / Volume Laterality 05/24/2009 7:41 AM SKOOG MACHINE OPERATOR Amanda Stockton APRN, CNP LAB_1 Performing Organization Address City/State/ZIP Code Phon e Number HP CONVERSION documented in this encounter Visit Diagnoses Not on filedocumented in this encounter Care Teams Case Loader Operator Relationship Specialty Start Date End Date Mikala Best APRN, MANAGER VIDEO GAMES PCP - General 07/16/10 02/11/12 [address] [facility] [place] [address] [address] documented as of this encounter
--- OUTSIDE RECORDS SUMMARY | 2022-03-23 17:36 | XMS_ITS | Encounter Summary ---
:1980 Author Organization [facility] Address [address] [address] Care Team Providers Name Role Phone Mikala Best APRN, CNP Primary Care Provider [phone] Encounter Details Date Type Department Care Team Description 05/24/2009 PN Conversion Only [place] [address] [address] [place] [address] Social History Tobacco Use Types Packs/Day Years Used Date Smoking Tobacco: Never Assessed Sex Assigned at Date Recorded Not on file documented as of this encounter Plan of Treatment Not on filedocumented as of this encounter Visit Diagnoses Not on filedocumented in this encounter Care Teams Waxing Machine Operator Relationship Specialty Start Date End Date Mikala Best APRN, CNP PCP - General 07/16/10 02/11/12 [address] [place] [id number] documented as of this encounter
--- OUTSIDE RECORDS SUMMARY | 2022-03-23 17:36 | XMS_ITS | Encounter Summary ---
:1980 [facility] Address [address] [address] Care Team Providers Name Role Phone Mikala Best APRN, CNP Primary Care Provider [phone] Encounter Details Date Type Department Care Team Description 06/14/2008 Office Visit [facility] Gabri[place], [address] [facility] [address] [place] [address] [address] [place], [place] [phone] (Wo rk) Social History Tobacco Use Types Packs/Day Years Used Date Smoking Tobacco: Never Assessed Sex Assigned at Date Recorded Not on file documented as of this encounter Last Filed Vital Signs Vital Sign Reading Time Taken Comments Blood Pressure 100/57 06/14/2008 4:07 PM BANKRUPTCY JUDGE Pulse 63 06/14/2008 4:07 PM BANKRUPTCY JUDGE Temperature 36.2 ??C (97.2 ??F) 06/14/2008 4:07 C: 36.2 C Si multaneous PM BANKRUPTCY JUDGE filing. User may not have seen previo us data. Respiratory Rate 14 06/14/2008 4:07 PM BANKRUPTCY JUDGE Oxygen Saturation - - Inhaled Oxygen - - Concentration Weight - - Height - - Body Mass Index - - documented in this encounter Progress Notes Caitlin Ochoa - 06/14/2008 12:01 AM CST Progress Notes signed by Caitlin Ochoa MD at 07/13/082027 Author: Caitlin Ochoa MD Service: (none) Author Type: Physician Filed: 08/04/10 1130 Note Time: 06/14/082027 Status: Signed Linter Operator: Caitlin Ochoa MD (Physician) NAME: SHAMIR NOLASCO MR#: [id number] ACCT: [id number] VISIT: [id number] DICTATING CLINICIAN: Caitlin Ochoa MD CONFIRM #: [id number] LOC: 520 CLINIC PROGRESS NOTE DATE OF VISIT: 06/14/2008 SUBJECTIVE: : 1980. CHIEF COMPLAINT: Right ear pain. HISTORY OF PRESENT ILLNESS: The patient is a 28-year-old female with recent acute sinusitis treated with amoxicillin. Patient finished her prescription 1 week ago. Sinus symptoms are 75% improved, but patient has 2-day history of right ear pain. The patient works for the [employer] with frequent flights over the past week, states she almost ruptured her right TM several weeks ago. The patient notes residual facial pain and postnasal drip. No history of allergies. She and her daughter have been sick throughout the winter months. No ear drainage or hearing loss, but notes intermittent, sharp, stabbing pain involving the right ear 3-4 times per hour, lasting 2-3 seconds. Cough is productive of greenish sputum over the past day. Cough is somewhat worse at night. No shortness of breath, chest pain, wheezing or history of asthma. PAST MEDICAL HISTORY: Reviewed and updated in PHP in LastWord. MEDICATIONS: Reviewed and updated in PHP in LastWord. ADR/ALLERGIES: REVIEWED AND UPDATED IN PHP IN LAST[employer]. SOCIAL HISTORY: Nonsmoker. OBJECTIVE: VS: See Urgent Care shingle. GENERAL: The patient is a 28-year-old female who is in no acute distress. HEENT: Sclerae anicteric. No conjunctivitis. Right TM somewhat dull. TMs and canals otherwise within normal limits. Mild to moderate nasal congestion. Sinuses tender to palpation. Drainage in the posterior pharynx without significant edema or erythema. NECK: Supple without lymphadenopathy, thyromegaly or mass. HEART: S1, S2. Regular rate and rhythm without murmurs, rubs or gallops. LUNGS: Clear to auscultation. ABDOMEN: Soft, nontender. SKIN: No rash. ASSESSMENT: Acute sinusitis, refractory to amoxicillin treatment/eustachian tube dysfunction. PLAN: Z-Richi and Flonase as prescribed. Follow up if worsening symptoms or not gradually improving. HCV:[id number] C: 06/15/08 10:01 CONFIRM #: [id number] documented in this encounter Plan of Treatment Not on filedocumented as of this encounter Visit Diagnoses Not on filedocumented in this encounter Care Teams Scooper Relationship Specialty Start Date End Date Mikala Best APRN, MEDIA ANALYTICS MANAGER PCP - General 07/16/10 02/11/12 [address] [place] [address] documented as of this encounter
--- OUTSIDE RECORDS SUMMARY | 2022-03-23 17:36 | XMS_ITS | Encounter Summary ---
:1980 Author Organization [facility] Address [address] [facility] [place] [address] Care Team Providers Name Role Phone Mikala Best APRN, CNP Primary Care Provider [phone] Reason for Visit Reason Comments Other Encounter Details Date Type Department Care Team Description 04/20/2008 Telephone [facility] Joao Esteves Other [address] [place] [address] Social History Tobacco Use Types Packs/Day Years Used Date Smoking Tobacco: Never Assessed Sex Assigned at Date Recorded Not on file documented as of this encounter Progress Notes Center, Message - 04/20/2008 2:56 PM CST Phone Note filed by Guvera at 08/02/10 3577 Author: Guvera Service: (none) Author Type: (none) Filed: 08/02/10 1350 Note Time: 04/20/08 1456 Status: Signed Pavilion Cutter: Guvera Prior Authorization or Change Medications? Pharmacy Seq #:PRINT TO [facility] Pharmacy Name & Phone #:[facility] [phone]/City:[place] Comment: INSURANCE DOES NOT COVER Clinician Name: Abdi [place] Drug Name/Strength:VALTREX 500MG CAP Sig: Formulary Alternative Meds from Pharmacy:[facility] OR [facility] Insurance Carrier:[employer] Call Back Phone or Cell Phone: Is it OK to Leave a Confidential Message on this Voicemail? Created on 20Apr2008 2:56pm by BESS JORDAN On 21Apr2008 9:20am ALBERT NAVIN Gomez wrote: Do you want to do a PA? On 21Apr2008 9:51am MICHAEL HAYNES wrote: rx printed Acknowledged by MICHAEL HAYNES on 9:51am Acknowledged by KADY JAMA on 11:31am On 21Apr2008 2:47pm JOAO ESTEVES wrote: sent to [facility] Acknowledged by JOAO ESTEVES on 2:47pm RITY NURSE documented in this encounter Plan of Treatment Not on filedocumented as of this encounter Visit Diagnoses Not on filedocumented in this encounter Care Teams Fitness Plan Coordinator Relationship Specialty Start Date End Date Mikala Best APRN, INCENDIARY POWDER MIXER PCP - General 07/16/10 02/11/12 [address] [place] [address] documented as of this encounter
--- OUTSIDE RECORDS SUMMARY | 2022-03-23 17:36 | XMS_ITS | Encounter Summary ---
:1980 Author Organization [facility] Address [address] [place] [address] Care Team Providers Name Role Phone Mikala Best APRN, CNP Primary Care Provider [phone] Encounter Details Date Type Department Care Team Description 04/28/2008 PN Conversion Only [place] [address] [address] [place] [address] Social History Tobacco Use Types Packs/Day Years Used Date Smoking Tobacco: Never Assessed Sex Assigned at Date Recorded Not on file documented as of this encounter Plan of Treatment Not on filedocumented as of this encounter Visit Diagnoses Not on filedocumented in this encounter Care Teams Lpn Relationship Specialty Start Date End Date Mikala Best APRN, CNP PCP - General 07/16/10 02/11/12 [address] [place] [id number] documented as of this encounter
--- OUTSIDE RECORDS SUMMARY | 2022-03-23 17:36 | XMS_ITS | Encounter Summary ---
:1980 [email or web address] Address [address] [address] Care Team Providers Name Role Phone Nasir Mikala URBINA CNP Primary Care Provider [phone] Encounter Details Date Type Department Care Team Description 06/23/2009 Office Visit [facility] Che Ochoa PA-C [id number] [place] [address] [phone] (Wo rk) Social History Tobacco Use Types Packs/Day Years Used Date Smoking Tobacco: Never Assessed Sex Assigned at Date Recorded Not on file documented as of this encounter Last Filed Vital Signs Vital Sign Reading Time Taken Comments Blood Pressure 114/71 06/23/2009 3:26 PM MACHINE BUNCH MAKER Pulse 76 06/23/2009 3:26 PM MACHINE BUNCH MAKER Temperature 36.9 ??C (98.4 ??F) 06/23/2009 3:26 PM MACHINE BUNCH MAKER C: 36 .9 C Respiratory Rate 16 06/23/2009 3:26 PM MACHINE BUNCH MAKER Oxygen Saturation - - Inhaled Oxygen Concentration - - Weight - - Height - - Body Mass Index - - documented in this encounter Progress Notes Che Ochoa PA-C - 06/23/2009 12:01 AM CST Progress Notes signed by Che Ochoa PA-C at 06/23/09 0269 Author: Che Ochoa PA-C Service: (none) Author Type: Physician Forepart Rasper Filed: 08/04/102050 Note Time: 06/23/09 0001 Status: Signed Spring Salvage Worker: Che Ochoa PA-C (Resource) SUBJECTIVE: HPI: Lacey is a 29-year-old female who presents with concern for possible sinus infection. Symptoms started one month ago. She states it has been progressive. She reports thick nasal discharge, sore throat which she relates to postnasal drip, sinus pressure and pain. She has had sinus infections in the past but denies anything recently. Reports thick green nasal discharge. She has had some low-grade fevers T-max recently. Her ears are starting to ache, right greater than the left. Denies tooth pain. She has had a slight cough. She has tried Sudafed with minimal relief. Her daughter had similar symptoms however that resolved without treatment. PMH: Herpes simplex, tonsillectomy Adverse Drug Reactions: No known drug allergies Medications: Reviewed. See Medication List in LastWord. ROS: Complete ROS otherwise unremarkable. Social History: Denies smoking OBJECTIVE: Vital Signs : Reviewed; See Flowsheet Charting in LastWord. Temp: 98.4 HR: 76 RR: 16 BP: 114 /71 General: Appears well and in NAD. Pleasant and active. Eyes: Full EOM, PERRLA, without lesions or injection. Nose: Mildly congested Ears: Canals and TM's normal without lesions. Sinus: TTP over all sinuses, especially maxillary sinuses. Pharynx: Moist mucous membranes without lesions, erythema, or exudate, with out injection or postnasal drainage. Tonsils surgically not seem. Normal phonation. Airway intact. Neck: Supple, without masses, lymphadenopathy or tenderness. Respiratory: Normal respiratory effort. Lungs are clear with good breath sounds. Heart: RR without murmurs, rubs, or gallops. ASSESSMENT: 1. Sinusitis. PLAN: Rx for augmentin 875mg BID x 10 days, See LastWord. We discussed that this may interfere with her control and if she does not want to become she should use a second form of protection. Sinusitis instruction card was given. Sinus irrigation (Neti Pot) was discussed, and demonstrated. Use OTC analgesics, oral decongestants, and decongestant nasal spray (maximum 4 days). RTC PRN if not gradually improving. The patient was discharged ambulatory and in stable condition. All questions answered. *SH~DNS~Sinusitis INE BUNCH MAKER documented in this encounter Plan of Treatment Not on filedocumented as of this encounter Visit Diagnoses Not on filedocumented in this encounter Care Teams Drop Worker Relationship Specialty Start Date End Date Mikala Best APRN, BUDGET ASSISTANT PCP - General 07/16/10 02/11/12 [address] [place] [address] documented as of this encounter
--- OUTSIDE RECORDS SUMMARY | 2022-03-23 17:36 | XMS_ITS | Encounter Summary ---
:1980 Author Organization [facility] Address [address] [facility] [place] [address] Care Team Providers Name Role Phone Mikala Best APRN, CNP Primary Care Provider [phone] Reason for Visit Reason Comments Other Encounter Details Date Type Department Care Team Description 12/08/2006 Telephone [facility], Message Other [address] [place] [address] Social History Tobacco Use Types Packs/Day Years Used Date Smoking Tobacco: Never Assessed Sex Assigned at Date Recorded Not on file documented as of this encounter Progress Notes Center, Message - 12/08/2006 2:36 PM CDT Phone Note filed by [employer] at 08/01/10250 Author: [employer] Service: (none) Author Type: (none) Filed: 08/01/10250 Note Time: 12/08/06 1436 Status: Signed Intermediate Designer: [employer] Front Line Sx Call Caller Name/Relationship:SHAMIR Primary Pinball Machine Repairer:brijesh ? Symptom or request? changer BCP's Is appointment scheduled & when? Corporate Licensed Broker: Best call back number:[phone] Is it OK to leave a confidential message on this voicemail? y *ECODE~PNSX2 Created on 08Dec2006 2:36pm by DARIO NGUYEN On 08Dec2006 3:17pm PIERCE HORNE wrote: Message sent to OSION CONTROL FITTER documented in this encounter Plan of Treatment Not on filedocumented as of this encounter Visit Diagnoses Not on filedocumented in this encounter Care Teams 3Rd Mate Relationship Specialty Start Date End Date Mikala Best APRN, PAID SEARCH ANALYST PCP - General 07/16/10 02/11/12 [address] [place] [address] documented as of this encounter
--- OUTSIDE RECORDS SUMMARY | 2022-03-23 17:36 | XMS_ITS | Encounter Summary ---
:1980 Author Organization [facility] Address [address], [place] [address] Care Team Providers Name Role Phone Mikala Best APRN, CNP Primary Care Provider [phone] Encounter Details Date Type Department Care Team Description 09/19/2006 PN Conversion Only [place] [address] [address] [place] [address] Social History Tobacco Use Types Packs/Day Years Used Date Smoking Tobacco: Never Assessed Sex Assigned at Date Recorded Not on file documented as of this encounter Plan of Treatment Not on filedocumented as of this encounter Visit Diagnoses Not on filedocumented in this encounter Care Teams Child Support Investigator Relationship Specialty Start Date End Date Mikala Best APRN, CNP PCP - General 07/16/10 02/11/12 [address] [place] [id number] documented as of this encounter
--- OUTSIDE RECORDS SUMMARY | 2022-03-23 17:36 | XMS_ITS | Encounter Summary ---
:1980 Author Organization [facility] Address [address] [place] [address] Care Team Providers Name Role Phone Mikala Best APRN, CNP Primary Care Provider [phone] Reason for Visit Reason Comments Other Encounter Details Date Type Department Care Team Description 07/17/2009 Telephone Tell Amanda Tejeda, Other Obstetrics/Gynecolog y [place] [address] [place], [place] [address] Social History Tobacco Use Types Packs/Day Years Used Date Smoking Tobacco: Never Assessed Sex Assigned at Date Recorded Not on file documented as of this encounter Progress Notes Amanda Tejeda APRN, CNP - 07/17/2009 10:07 AM CDT Phone Note filed by BHUMIKA Joseph at 08/04/10 0329 Author: BHUMIKA Joseph Service: (none) Author Type: Nurse Practitioner Filed: 08/04/10 0329 Note Time: 07/17/09 1007 Status: Signed Driver Courier: BHUMIKA Joseph (Nurse Practitioner) I spoke with Ms. Nolasco regarding denial of Jolessa by her current insurer. She would like to restart Ortho tri-cyclen, which she has taken in the past with satisfaction. Rx sent to [facility] in [place]. Created on [id number] 10:07am by AMANDA TEJEDA NSIC IDENTIFICATION SPECIALIST documented in this encounter Plan of Treatment Not on filedocumented as of this encounter Visit Diagnoses Not on filedocumented in this encounter Care Teams Wireless Field Technician Relationship Specialty Start Date End Date Mikala Best APRN, CNP PCP - General 07/16/10 02/11/12 [address] [place] [address] documented as of this encounter
--- OUTSIDE RECORDS SUMMARY | 2022-03-23 17:36 | XMS_ITS | Encounter Summary ---
:1980 Author Organization [facility] Address [address] [address] Care Team Providers Name Role Phone Nasir Mikala URBINA CNP Primary Care Provider [phone] Encounter Details Date Type Department Care Team Description 07/16/2007 Office Visit [facility] Fernanda Morfin PA-C [address] [address] [place] [address] [place] [address] [phone] (Wo rk) Social History Tobacco Use Types Packs/Day Years Used Date Smoking Tobacco: Never Assessed Sex Assigned at Date Recorded Not on file documented as of this encounter Last Filed Vital Signs Vital Sign Reading Time Taken Comments Blood Pressure 101/67 07/16/2007 6:47 PM CDT Pulse 90 07/16/2007 6:47 PM CDT Temperature 37.2 ??C (99 ??F) 07/16/2007 6:47 PM CDT ORAL C: 37.2 C Respiratory Rate 20 07/16/2007 6:47 PM CDT Oxygen Saturation 98% 07/16/2007 6:47 PM CDT Inhaled Oxygen Concentration - - Weight - - Height - - Body Mass Index - - documented in this encounter Progress Notes Fernanda Morfin PA-C - 07/16/2007 12:01 AM CDT Progress Notes signed by Fernanda Morfin PA-C at 07/23/072010 Author: Fernanda Morfin PA-C Service: (none) Author Type: Physician Pals Specialist Filed: 08/04/10 0323 Note Time: 07/16/07 0001 Status: Signed Airborne Mission Systems: Fernanda Morfin PA-C (Physician Pals Specialist) NAME: SHAMIR NOLASCO MR#: [id number] ACCT: [id number] VISIT: [id number] DICTATING CLINICIAN: FERNANDA MORFIN PA-C JOB: [id number] LOC: 520 CLINIC PROGRESS NOTE DATE OF VISIT: 07/16/2007 SUBJECTIVE: A 27-year-old female presents to Urgent Care for evaluation of right-sided facial pain. Describes it as a shooting sensation, points to the right mandible. No swelling. Pain seems to radiate from the ear, slight nausea. Slightly dizzy stating that she has been a bit off balance but has not lost her balance. No room spinning. She has been a little bit fatigued. No fever. History of HSV. Nonsmoker. 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 ADR/ALLERGIES: SEE PATIENT HEALTH PROFILE IN LASTWORD. MEDICATIONS: See patient health profile in LastWord. PAST MEDICAL HISTORY: See patient health profile in LastWord. OBJECTIVE: VS: BP: 101/67. T: 98.9. P: 90. R: 20. O2 Sat: 98%. GENERAL: NAD. HEENT: Head normocephalic. Ears, TMs intact without erythema. Eyes, sclerae white. Conjunctivae pink. Cornea and lens clear. Nose is patent. Mouth, mucosa moist without lesion. Sensation of the face is normal. Function is normal. Cranial nerves 2-12 were grossly intact, were tested individually. NECK: Nontender without lymphadenopathy. ASSESSMENT: Neuralgia (V3) dermatome. PLAN: Medrol Dosepak, Valtrex 500 t.i.d. over 10 days. Monitor worsening symptoms. Look for a rash. Discussed possible etiologies. RTC rula CHAPPELL:[id number] C: 07/17/07 10:58 DOCUMENT: [id number] documented in this encounter Plan of Treatment Not on filedocumented as of this encounter Visit Diagnoses Not on filedocumented in this encounter Care Teams Skein Spooler Relationship Specialty Start Date End Date Mikala Best APRN, CONFLICT RESOLUTION PROFESSIONAL PCP - General 07/16/10 02/11/12 [address] [place] [address] documented as of this encounter
--- OUTSIDE RECORDS SUMMARY | 2022-03-23 17:36 | XMS_ITS | Encounter Summary ---
:1980 Author Organization [facility] Address [address] [place] [address] Care Team Providers Name Role Phone Mikala Best APRN, CNP Primary Care Provider [phone] Encounter Details Date Type Department Care Team Description 05/24/2009 PN Conversion Only [place] N Amanda [place], [address] [place] [place] [address] Social History Tobacco Use Types Packs/Day Years Used Date Smoking Tobacco: Never Assessed Sex Assigned at Date Recorded Not on file documented as of this encounter Plan of Treatment Not on filedocumented as of this encounter Visit Diagnoses Not on filedocumented in this encounter Care Teams Overhead Foreman Relationship Specialty Start Date End Date Mikala Best APRN, CNP PCP - General 07/16/10 02/11/12 [address] [place] [id number] documented as of this encounter
--- OUTSIDE RECORDS SUMMARY | 2022-03-23 17:36 | XMS_ITS | Encounter Summary ---
:1980 [address] [facility] Address [address], [place] [address] Care Team Providers Name Role Phone BevGilles alvaradomacario URBINA CNP Primary Care Provider [phone] Encounter Details Date Type Department Care Team Description 04/30/2007 Office Visit [facility] [place] [address] [place] [address] [phone] (Wo rk) Social History Tobacco Use Types Packs/Day Years Used Date Smoking Tobacco: Never Assessed Sex Assigned at Date Recorded Not on file documented as of this encounter Last Filed Vital Signs Vital Sign Reading Time Taken Comments Blood Pressure 102/64 04/30/2007 2:01 PM TRUCKING CONTRACTOR Pulse 76 04/30/2007 2:01 PM TRUCKING CONTRACTOR Temperature - - Respiratory Rate - - Oxygen Saturation - - Inhaled Oxygen Concentration - - Weight 70.8 kg (156 lb) 04/30/2007 2:01 PM TRUCKING CONTRACTOR C: 70.8k g Height - - Body Mass Index 25.76 09/22/2006 11:09 AM CDT documented in this encounter Progress Notes Verona Haynes MD - 04/30/2007 12:01 AM CST Progress Notes signed by Verona Haynes MD at 05/02/07 1351 Author: Verona Haynes MD Service: (none) Author Type: Physician Filed: 08/04/10 0036 Note Time: 04/30/07 0001 Status: Signed Enterprise Systems Engineer: Verona Haynes MD (Physician) NAME: SHAMIR NOLASCO MR#: [id number] ACCT: [id number] VISIT: [id number] DICTATING CLINICIAN: VERONA HAYNES MD JOB: [id number] LOC: 506 CLINIC PROGRESS NOTE DATE OF VISIT: 04/30/2007 SUBJECTIVE: This is a 27-year-old, white female who comes in for evaluation of cold sores. She usually gets cold sores on the interior and exterior of her mouth. I believe she has been getting these since she has been a child. She had a prescription for Valtrex, but ran out. She feels a cold sore coming on in the left corner of her lips. MEDICAL HISTORY: Otherwise unremarkable. CURRENT MEDICINES: None. ALLERGIES: NONE. HABITS: She does not smoke. OBJECTIVE: VS: BP: 102/64. P: 76. Wt: 156 lb. Well-appearing, young, white female. Examination shows that there a beginning of a cracking and redness in the corner of her left side of her mouth. NECK: Supple. No lymphadenopathy palpable. ASSESSMENT: Herpes simplex labialis. PLAN: Prescription given for Valtrex. Follow up p.r.nTara JJO:[id number] C: 05/01/07 14:02 DOCUMENT: [id number] KING CONTRACTOR documented in this encounter Plan of Treatment Not on filedocumented as of this encounter Visit Diagnoses Not on filedocumented in this encounter Care Teams Prospecting Observer Relationship Specialty Start Date End Date Mikala Best APRN, MANAGING PRINCIPAL PCP - General 07/16/10 02/11/12 [address] [place] [address] documented as of this encounter
--- OUTSIDE RECORDS SUMMARY | 2022-03-23 17:36 | XMS_ITS | Encounter Summary ---
:1980 Author Organization [facility] Address [address], [place] [address] Care Team Providers Name Role Phone Nasir Mikala URBINA CNP Primary Care Provider [phone] Reason for Visit Reason Comments Other Encounter Details Date Type Department Care Team Description 04/20/2007 Telephone [facility] Elizabeth Hartman PA-C Other [address] [address] [place], [place] [address] [place] [address] [phone] (Wo rk) Social History Tobacco Use Types Packs/Day Years Used Date Smoking Tobacco: Never Assessed Sex Assigned at Date Recorded Not on file documented as of this encounter Progress Notes Center, Message - 04/20/2007 8:29 AM CST Phone Note filed by [employer] at 08/01/10 2250 Author: [employer] Service: (none) Author Type: (none) Filed: 08/01/10 1132 Note Time: 04/20/07828 Status: Signed Wire Hanger: [employer] Medication Issue/Refill Caller Name/Relationship:Lacey Primary Product/Device Technologist:Cristofer Comment/Symptom:feel she had a cold sore coming on. going out of town tomorrow for rest of week Pharmacy Name & Phone #:[facility] Street or City:[place] Drug Name:Valtrex Strength:couldn't provide Dose/Route/Freq: Canoe Inspector Final:Lacey Best call back number:[phone] Is it OK to leave a confidential message on this voicemail?y Created on 20Apr2007 8:29am by CHRISTINA ALICIA On 20Apr2007 8:35am ELIZABETH MARTINES wrote: Filled. Needs appt for additional refills. Acknowledged by ELIZABETH MARTINES on 8:35am ING FLOORWORKER documented in this encounter Plan of Treatment Not on filedocumented as of this encounter Visit Diagnoses Not on filedocumented in this encounter Care Teams Mud Mixer Relationship Specialty Start Date End Date Mikala Best, CARLITOS, SENIOR PRINCIPAL PCP - General 07/16/10 02/11/[address] [place] [address] documented as of this encounter
--- OUTSIDE RECORDS SUMMARY | 2022-03-23 17:36 | XMS_ITS | Encounter Summary ---
:1980 [facility] Address [address] [address] Care Team Providers Name Role Phone Nasir Mikala URBINA, BONITA Primary Care Provider [phone] Reason for Visit Reason Comments Other Encounter Details Date Type Department Care Team Description 12/08/2006 Telephone [facility] [address] [address] [place] [address] [phone] (Wo rk) Social History Tobacco Use Types Packs/Day Years Used Date Smoking Tobacco: Never Assessed Sex Assigned at Date Recorded Not on file documented as of this encounter Progress Notes Pierce Siddiqui - 12/08/2006 3:16 PM CDT Phone Note filed by Pierce Siddiqui RN at 08/01/10251 Author: Pierce Siddiqui RN Service: (none) Author Type: Registered Nurse Filed: 08/01/10251 Note Time: 12/08/061515 Status: Signed Athletic Trainer: Pierce Siddiqui RN (Registered Nurse) MESSAGE TO CARE TEAM NAME OF CALLER:Lacey NAME OF CLINICIAN:Jose Luis MESSAGE:Lacey changed to a new OCP in September. She felt very bloated and just miserable. Asking for another new rx. Wants to talk with you about what might work better. She had a well visit with Che in September of this year. PHARMACY NAME:[facility] PHONE #:390 [place]:[facility] CALL BACK PHONE OR CELL PHONE:[phone] BEST TIME TO CALL BACK:anytime IS IT OK TO LEAVE A CONFIDENTIAL MESSAGE ON THIS VOICEMAIL? *ECODE~PNMSG Created on 08Dec2006 3:16pm by PIERCE SIDDIQUI On 09Dec2006 12:49pm ALLEN MAHAJAN wrote: Script for Aylin faxed to pharm. Msg left with pt. Acknowledged by ALLEN MAHAJAN on 12:49pm CASTING OPERATOR documented in this encounter Plan of Treatment Not on filedocumented as of this encounter Visit Diagnoses Not on filedocumented in this encounter Care Teams Vacuum Closing Machine Operator Relationship Specialty Start Date End Date Mikala Best APRN, INTERIOR DECORATOR PAPERHANGING PCP - General 07/16/10 02/11/12 [address] [facility] [place] [address] documented as of this encounter
--- OUTSIDE RECORDS SUMMARY | 2022-03-23 17:36 | XMS_ITS | Encounter Summary ---
:1980 [facility] Address [address] [address] Care Team Providers Name Role Phone Nasir Mikala URBINA CNP Primary Care Provider [phone] Encounter Details Date Type Department Care Team Description 09/22/2006 Office Visit Che Moreira, RN Obstetrics/Gynecolog y [address] [place] [address] Social History Tobacco Use Types Packs/Day Years Used Date Smoking Tobacco: Never Assessed Sex Assigned at Date Recorded Not on file documented as of this encounter Last Filed Vital Signs Vital Sign Reading Time Taken Comments Blood Pressure 98/62 09/22/2006 11:09 AM CDT Pulse 68 09/22/2006 11:09 AM CDT Temperature - - Respiratory Rate - - Oxygen Saturation - - Inhaled Oxygen Concentration - - Weight 70.8 kg (156 lb) 09/22/2006 11:09 AM CDT C: 70.8 kg Height 165.7 cm (5' 5.25) 09/22/2006 11:09 AM CDT C: 1 65.7cm Body Mass Index 25.76 09/22/2006 11:09 AM CDT documented in this encounter Progress Notes Che Fall APRN, CNP - 09/22/2006 12:01 AM CDT Progress Notes signed by Che Fall APRN, CNP at 09/22/06 1304 Author: BHUMIKA Jack Service: (none) Author Type: Nurse Practitioner Filed: 08/03/102005 Note Time: 09/22/06 0001 Status: Signed Counter Attendant: BHUMIKA Jack (Nurse Practitioner) Preventive Exam & Pelvic SUBJECTIVE: Patient presents for a routine preventive physical and pelvic exam. Has been on Ortho Tri Cyclen for years without any problems. Last month, she had bleeding in the middle of her cycle that lasted for almost 2 weeks. This has never happened to her before. Otherwise, no other side effects. She is also interested in taking a pill continuously to avoid having her menses every month. Past Medical History: Trust Administrator History: : 1 Para: 1 - 0 - 0 - 1 Pap History: No history of abnormal Pap smears. Menstrual History: Date of LMP: 09/04/06 STD History: No history of STD's. Other Medical/Surgical History: Past medical history was reviewed today and found to be otherwise negative. No surgeries. Adverse Drug Reactions: None. Current Medications: Reviewed today and updated on Health Profile in LastWord. Family History: (First degree family members) Mother with hyperlipidemia. Father and siblings alive and well. Denies breast, ovarian, or colon cancers. Social History: Occupation: Works for the [employer]. Marital Status: . Sexual History: Monogamous relationship. Habits No tobacco/alcohol/drug use Preventive Health Assessment: Calcium intake 1-2 servings/day. Exercises 3 times/week. Lipid screen is needed. Safe in relationship. Uses seatbelts. Tetanus immunization is up-to-date. Does not perform self breast exams. Review of Systems: With the exception of any items noted above, the remainder of complete ROS is negative. OBJECTIVE: Age: 26 years. Current Weight: 156 lbs. / 70.9 kg. Current Height: 65 inches Current BMI: 26.0 Kg/meters squared Pulse: 68. Blood Pressure: 98/62. General: Patient alert, in NAD. HEENT: Pupils equal, sclera clear, >oropharynx normal. Neck: Supple, without thyromegaly or mass. CV: RRR ?without murmurs, rubs or gallops. No peripheral edema. Resp: Clear to @auscultation without crackles, wheezes or distress. Abdomen: Soft, Anon-tender, without hepatosplenomegaly, masses, or hernias. Breasts: Nontender, without masses, nipple discharge, erythema, or axillary Cadenopathy. Pelvic: Normal external genitalia and urethra. Silvis, moist vaginal and cervical mucosa, without lesions. On bimanual exam, uterus is mobile, normal size, shape & consistency, with no uterine or adenexal masses Fappreciated. Rectal: Not examined. Lymphatic: No neck, supraclavicular, Gaxillary or groin lymphadenopathy. Skin: No lesions. Psychiatric: Alert & oriented with normal affect and insight, does not appear depressed or anxious. ASSESSMENT: Routine preventive exam. Contraception surveillance. PLAN: Follow-up in 1 year Pap smear. Offered cholesterol screening, but patient refuses today. Will call pt. with results of labs only if abnormal, otherwise will mail results. Ortho Cyclen rx given. Patient may take pills continuously for up to 3 months at a time. Reviewed instructions for use, side effects, and warning signs. Monthly breast self-exam recommended and instructions provided. Recommended increased calcium intake either through diet or calcium supplementation for osteoporosis prevention. *SH~PC~PEF ~Shorthand Note completed on: 09/22/2006 12:58 PM documented in this encounter Plan of Treatment Not on filedocumented as of this encounter Visit Diagnoses Not on filedocumented in this encounter Care Teams Investigations Director Relationship Specialty Start Date End Date Mikala Best APRN, CLINICAL LAB CLERK PCP - General 07/16/10 02/11/12 [address] [place] [address] documented as of this encounter
--- OUTSIDE RECORDS SUMMARY | 2022-03-23 17:36 | XMS_ITS | Encounter Summary ---
:1980 Author Organization [facility] Address [address] [place] [address] Care Team Providers Name Role Phone Mikala Best APRN, CNP Primary Care Provider [phone] Reason for Visit Reason Comments Other Encounter Details Date Type Department Care Team Description 09/24/2006 Telephone [place] Obstetric s/Gynecology Che Fall RN Other [address] [id number] Social History Tobacco Use Types Packs/Day Years Used Date Smoking Tobacco: Never Assessed Sex Assigned at Date Recorded Not on file documented as of this encounter Progress Notes Center, Message - 09/24/2006 2:16 PM CDT Phone Note filed by Recommind at 07/31/102216 Author: Message [employer] Service: (none) Author Type: (none) Filed: 07/31/102216 Note Time: 09/24/06 1416 Status: Signed Aesthetician: [facility] MESSAGE TO CARE TEAM NAME OF CALLER: Rodney / Андрей York NAME OF CLINICIAN: Che Fall MESSAGE:prior auth. refill no other info given please call pharmacy for further RX info PHARMACY NAME: [facility] PHONE #:[phone] CITY:[place] CALL BACK PHONE OR CELL PHONE: [patient [phone]} BEST TIME TO CALL BACK:day IS IT OK TO LEAVE A CONFIDENTIAL MESSAGE ON THIS VOICEMAIL? yes Created on 24Sep2006 2:16pm by HANNAH PIPER On 25Sep2006 9:25am PHYLLIS MEEKS wrote: I spoke with the [facility] @ [phone]. [facility] will cover 1 month supply or 3 Months supple. Pt. needs a RX for 112 for [facility] to cover. Please call Pharmacy or refax [facility] RX for 112. Acknowledged by PHYLLIS MEEKS on 9:25am On 25Sep2006 9:31am CHE FALL wrote: Called pharmacy. Changed rx to Ortho Cyclen #112 with 3 refills to take continuously. Acknowledged by CHE FALL on 9:31am H DYE RANGE OPERATOR documented in this encounter Plan of Treatment Not on filedocumented as of this encounter Visit Diagnoses Not on filedocumented in this encounter Care Teams Quality Control Inspector Relationship Specialty Start Date End Date Mikala Best, CARLITOS, ENGRAVINGS POLISHER PCP - General 07/16/10 02/11/12 [address] [facility] [facility] [place] [address] documented as of this encounter
[2022-03-23] MEDS: KETOROLAC 30 MG/ML inj IVP (17:37)
--- OUTSIDE RECORDS SUMMARY | 2022-03-23 17:37 | XMS_ITS | Encounter Summary ---
:1980 Author Organization [facility] Address [address] [address] [facility] [place] [address] Care Team Providers Name Role Phone BevGilles alvaradomacario URBINA CNP Primary Care Provider [phone] Reason for Visit Reason Comments Other Encounter Details Date Type Department Care Team Description 05/08/2005 Telephone Emily Valencia RN Other Obstetrics/Gynecolog y [address] [place] [address] Social History Tobacco Use Types Packs/Day Years Used Date Smoking Tobacco: Never Assessed Sex Assigned at Date Recorded Not on file documented as of this encounter Progress Notes Emily Domínguez RN - 05/08/2005 12:27 PM CST Phone Note filed by Emily Domínguez RN at 07/31/1011 Author: Emily Domínguez RN Service: (none) Author Type: Registered Nurse Filed: 07/31/1011 Note Time: 05/08/05 1227 Status: Signed Compensation Business Partner: Emily Domínguez RN (Registered Nurse) Phone Care Triage Note [facility] Respiratory/URI Reference - Adult IMPRESSION: Respiratory Symptom NON-URGENT SYMPTOMS: Viral symptoms less than 3-5 days, runny or congested nose. Additional Symptoms: 37wks preg. Has bad nasal congestion x2d, interferes with sleep. Wants to know if she can take otc cold meds. Has little cough. Deny fever. PATIENT INFORMATION: Problem List: Reviewed today in LastWord --- Allergies: Reviewed/updated today in LastWord --- Medications: Reviewed/updated today in LastWord INTERIM/HOME MANAGEMENT RECOMMENDATIONS: Get adequate rest, elevate head, eat a nutritious diet, increase fluid intake. For nasal congestion: take steamy showers, inhale warm, moist air for respiratory comfort, use saline drops or nasal sprays. Information given per: [facility] Medications in Nursing Reference Advised to callback if any of the following occur: symptoms worsen, symptoms do not improve with home management, breathing becomes difficult, painful or wheezy, URI symptom or fever continue longer than 3-5 days, any other questions or concerns. PLAN: HOME MANAGEMENT ADVICE GIVEN Patient/Caller agrees with plan and denies additional questions. Denies any emergent, urgent, semi-urgent symptoms Call Complete. Created on 08May2005 12:27pm by EMILY DOMÍNGUEZ HING PATTERNMAKER documented in this encounter Plan of Treatment Not on filedocumented as of this encounter Visit Diagnoses Not on filedocumented in this encounter Care Teams Inspector Fabric Relationship Specialty Start Date End Date Mikala Best APRN, MONTESSORI LEAD TEACHER PCP - General 07/16/10 02/11/12 [address] [place] [address] documented as of this encounter
--- OUTSIDE RECORDS SUMMARY | 2022-03-23 17:37 | XMS_ITS | Encounter Summary ---
:1980 Author Organization [facility] Address [address] [address] Care Team Providers Name Role Phone iMkala Best APRN, CNP Primary Care Provider [phone] Encounter Details Date Type Department Care Team Description 05/20/2005 Routine Allen Tam Obstetrics/[place] [address] [address] [place] [address] [place] [address] [phone] (Wo rk) Social History Tobacco Use Types Packs/Day Years Used Date Smoking Tobacco: Never Assessed Sex Assigned at Date Recorded Not on file documented as of this encounter Plan of Treatment Not on filedocumented as of this encounter Visit Diagnoses Not on filedocumented in this encounter Care Teams Pattern Drum Maker Relationship Specialty Start Date End Date Mikala Best APRN, CNP PCP - General 07/16/10 02/11/12 [address] [place] [address] documented as of this encounter
--- OUTSIDE RECORDS SUMMARY | 2022-03-23 17:37 | XMS_ITS | Encounter Summary ---
:1980 [facility] Address [address] [address] Care Team Providers Name Role Phone Mikala Best APRN, CNP Primary Care Provider [phone] Encounter Details Date Type Department Care Team Description 05/07/2006 Procedure Visit [facility] Alejandra Cleveland PA-C [address] [phone] (Wo rk) Social History Tobacco Use Types Packs/Day Years Used Date Smoking Tobacco: Never Assessed Sex Assigned at Date Recorded Not on file documented as of this encounter Last Filed Vital Signs Vital Sign Reading Time Taken Comments Blood Pressure 102/66 05/07/2006 11:35 AM CORNER BRACE BLOCK MACHINE OPERATOR Pulse 84 05/07/2006 11:35 AM CORNER BRACE BLOCK MACHINE OPERATOR Temperature - - Respiratory Rate 16 05/07/2006 11:35 AM CORNER BRACE BLOCK MACHINE OPERATOR Oxygen Saturation - - Inhaled Oxygen Concentration - - Weight - - Height - - Body Mass Index - - documented in this encounter Progress Notes Alejandra Cleveland PA-C - 05/07/2006 12:01 AM CST Procedures signed by Alejandra Cleveland PA-C at 05/23/06 1425 Author: Alejandra Cleveland PA-C Service: (none) Author Type: Physician Crayon Molding Machine Operator Filed: 08/03/10 1719 Note Time: 05/07/06 0001 Status: Signed Umbrella Tipper Machine: Alejandra Cleveland PA-C (Physician Crayon Molding Machine Operator) Suture Removal Date sutures were placed: 05/07/2006 Reason for suturing: Lesion excision Facility where suturing was performed: My office (by me). Vital Signs: Vital Signs taken today were reviewed on the flowsheet in LastWord. Location of sutures: Right thigh Wound appearance: Well healed without signs of inflammation or infection. Procedure: Sutures were removed without difficulty. Band-aid was applied. RTC PRN. *SH~PC~SR ~Shorthand Note completed on: 05/23/2006 2:25 PM ER BRACE BLOCK MACHINE OPERATOR Alejandra Cleveland PA-C - 05/07/2006 12:01 AM CST Procedures signed by Alejandra Cleveland PA-C at 05/07/06 1236 Author: Alejandra Cleveland PA-C Service: (none) Author Type: Physician Crayon Molding Machine Operator Filed: 08/03/10 1717 Note Time: 05/07/06 0001 Status: Signed Umbrella Tipper Machine: Alejandra Cleveland PA-C (Physician Crayon Molding Machine Operator) Procedure Note: Skin Lesion Excision CHIEF COMPLAINT: Skin mole(s) Past History: NO personal history of skin cancer. Extensive sun exposure. Family History: No history of skin cancer in 1st degree family member. No history of melanoma in 1st degree family member. Adverse Drug Reactions: None. Vital Signs: Vital Signs taken today were reviewed on the flowsheet in Electronic Medical Record. Location #1: medial right thigh medial right thigh Number of Lesions Treated @ This Site: History: Lesion has been enlarging, present for 3 months, Size: 0.4 cm x 0.4 cm Characteristics: skin-colored, with uniform coloration, regular border, smooth, nodule, Pt also reports 2 skin tags. One on left lower abdomen and another right inner thigh. She is requesting removal. The areas were cleansed with Hibiclens and snipped with a scissors. Sent to path. No bleeding. Areas bandaged. ASSESSMENT: Suspicious lesion NOS (238.2) Skin tags PROCEDURE NOTE: Discussed risk of pain, infection, scarring, hypopigmentation, hyperpigmentation, and recurrence or need for retreatment. Benefits of treatment and alternative treatments were also discussed.Sterile technique was used throughout the procedure. Skin was cleaned & prepped with Hibiclens. Area surrounding the lesion was infiltrated with Xylocaine (Lidocaine) with epinephrine. Full thickness punch biopsy (down to the fat) was performed using a 6 mm punch. Aluminum chloride was applied for hemostasis. Specimen(s) sent to pathology. Subcutaneous closure was not necessary. The skin was closed with interrupted simple sutures of 5-0 Vicryl. The wound was coated with antibacterial ointment. Band-Aid applied to wound(s). PLAN: Signs of infection (spreading erythema, increasing pain, purulent discharge) were discussed. No swimming, keep lesion clean and dry except for showering until the sutures are removed, or fall out (if absorbable). The pt. will be notified of the pathology results via mail. Patient was given discharge instructions and was discharged in stable condition. Return to clinic in 10 days, sooner PRN. *SH~PC~SLB ~Shorthand Note completed on: 05/07/2006 12:34 PM ER BRACE BLOCK MACHINE OPERATOR documented in this encounter Plan of Treatment Not on filedocumented as of this encounter Visit Diagnoses Not on filedocumented in this encounter Care Teams Sanitation Worker Relationship Specialty Start Date End Date Mikala Best APRN, NECKTIE OPERATOR POCKETS AND PIECES PCP - General 07/16/10 02/11/12 [address] [place] [id number] documented as of this encounter
--- OUTSIDE RECORDS SUMMARY | 2022-03-23 17:37 | XMS_ITS | Encounter Summary ---
:1980 Author Organization [facility] Address [address] [place] [address] Care Team Providers Name Role Phone Bevjenny Mikala URBINA CNP Primary Care Provider [phone] Encounter Details Date Type Department Care Team Description 07/08/2005 PN Conversion Only [place] [facility] N Jessica Gimenez [address] [facility] [place] [address] [address] [place] [address] (Wo rk) Social History Tobacco Use Types Packs/Day Years Used Date Smoking Tobacco: Never Assessed Sex Assigned at Date Recorded Not on file documented as of this encounter Plan of Treatment Not on filedocumented as of this encounter Procedures Procedure Name Priority Date/Time Associated Comments Diagnosis ANATOMICAL PATH Routine 07/08/2005 6:53 AM Result s for this LIQUID BASED BILINGUAL STUDENT TUTOR procedure are i n the results section. documented in this encounter Results Pap Smear (07/08/2005 6:53 AM BILINGUAL STUDENT TUTOR) [facility] gist Method Time Signature PAP Smear SEE TEXT No normal HP CONVERSION Liquid Based range Comment: Patient: SHAMIR NOLASCO ? CERVICAL CYTOLOGY REPORT Pathology # ??[id number] ?Date Obtained: ? Date Received: CYTOLOGIC IMPRESSION: Negative for intraepithelial lesion or m alignancy. ? ANDREA TIONAL DATA LMP: ?PP 63 WKS CLINICAL HIST LIQUID BASED PAP CERVICAL SPECIMEN ADEQUACY: ?? Satisfactory. ENDOCERVICAL CELLS: ??Present. Verified 07/10/05 by: ??SHER ?(electronic signature) Specimen (Source) Anatomical Collection Method Collection Time Re ceived Time Location / / Volume Laterality 07/08/2005 6:53 AM BILINGUAL STUDENT TUTOR Jessica Gimenez APRN, CNP LAB_1 Performing Organization Address City/State/ZIP Code Phon e Number HP CONVERSION documented in this encounter Visit Diagnoses Not on filedocumented in this encounter Care Teams Professor Of Religious Studies Relationship Specialty Start Date End Date Mikala Best APRN, CNP PCP - General 07/16/10 02/11/12 [address] [place] [place] [address] documented as of this encounter
--- OUTSIDE RECORDS SUMMARY | 2022-03-23 17:37 | XMS_ITS | Encounter Summary ---
:1980 Author [facility] Address [address] [place] [address] Care Team Providers Name Role Phone Mikala Best APRN, BONITA Primary Care Provider [phone] Reason for Visit Reason Comments Other Encounter Details Date Type Department Care Team Description 05/13/2005 Telephone Allen Tam Oth er Obstetrics/Gynecolog y [address] [address] [place] [address] [phone] (Wo rk) Social History Tobacco Use Types Packs/Day Years Used Date Smoking Tobacco: Never Assessed Sex Assigned at Date Recorded Not on file documented as of this encounter Progress Notes Pierce Siddiqui - 05/13/2005 2:18 PM CST Phone Note filed by Pierce Siddiqui RN at 07/31/1020 Author: Pierce Siddiqui RN Service: (none) Author Type: Registered Nurse Filed: 07/31/1020 Note Time: 05/13/05 1418 Status: Signed Asbestos Coverer: Pierce Siddiqui RN (Registered Nurse) MESSAGE TO CARE TEAM NAME OF CALLER:Lacey NAME OF CLINICIAN:Dr. Mahajan MESSAGE:Is 38 weeks . Was seen by you on 05/10. The upper back pain and sciatica are now bad enough that she is only sleeping 1-2 hours at night. Has an rx for Tyl.#3 but states they do not help. States you offered her an rx for a stronger pain med and she would like that now. Has tried all suggestions listed in our guidelines. PHARMACY NAME:[facility] PHONE #:[phone] CALL BACK PHONE #:[phone] BEST TIME TO CALL BACK: Is it OK to leave detailed message on voicemail? Created on 13May2005 2:18pm by PIERCE SIDDIQUI On 13May2005 3:04pm ALLEN MAHAJAN wrote: Script sent for Percocet #30. Pt notified. Acknowledged by ALLEN MAHAJAN on 3:04pm LABORER documented in this encounter Plan of Treatment Not on filedocumented as of this encounter Visit Diagnoses Not on filedocumented in this encounter Care Teams Telecom Analyst Relationship Specialty Start Date End Date Mikala Best APRN, ARCHITECTURAL ENGINEER PCP - General 07/16/10 02/11/[address] [place] [address] documented as of this encounter
--- OUTSIDE RECORDS SUMMARY | 2022-03-23 17:37 | XMS_ITS | Encounter Summary ---
:1980 Author Organization [facility] Address [address] [place] [address] Care Team Providers Name Role Phone Mikala Best CARLITOS, BONITA Primary Care Provider [phone] Encounter Details Date Type Department Care Team Description 05/07/2006 PN Conversion Only [place] [facility] N Alejandra Cleveland, PA-C [address] [place] [address] [place] [address] (Wo rk) Social History Tobacco Use Types Packs/Day Years Used Date Smoking Tobacco: Never Assessed Sex Assigned at Date Recorded Not on file documented as of this encounter Plan of Treatment Not on filedocumented as of this encounter Procedures Procedure Name Priority Date/Time Associated Diagnosis Comme nts SURGICAL MARYSOL MIMS Routine 05/07/2006 1:13 PM Re kaylats for this [place] RED LEAD BURNER procedure are i n the results section. documented in this encounter Results Pathology Report (05/07/2006 1:13 PM RED LEAD BURNER) [facility] gist Method Time Signature Surgical SEE TEXT No normal HP CONVERSION Pathology range Comment: Patient: SHAMIR NOLASCO ?S URGICAL PATHOLOGY REPORT Pathology # ??[id number] ?Date Obtained: ? Date Received: DIAGNOSIS: A) ??Skin, left lower abdomen, excisiona l biopsy: ?- ?? Solitary (1) intradermal adilia nocytic nevus of the skin. ?- ?? Solitary (1) benign skin tag. B) ??Skin and subcutaneous connective ti ssue, right inner thigh, punch biopsy: ?- ?? 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 ?Yuli Otto M.D. ?(electronic signature) ENM/ENM/kmr Date of Report: 05/09/06 Pathology # ??[id number] ?Date Obtained: ? Date Received: ORGAN/TISSUE SITE: ?Left lower abdomen/Right inner thi gh GROSS DESCRIPTION: A) ??Received in formalin are 2 polypoid portions of nazario-pink skin each ?measuring 0.2 x 0.2 x 0.1 cm. ??Th e surface of the skins are ?unremarkable. ??The skin is inked and submitted in toto in cassette 960 A. B) ??Received in formalin is a 0.5 cm ci rcular portion of nazario-pink skin excised ?to a depth of 0.3 cm. ??The surfac e of the skin displays a 0.3 cm pale ?lesion. ??The skin is inked, bisec isabell and entirely submitted in cassette ?960 B. MJL/alex Specimen (Source) Anatomical Collection Method Collection Time Re ceived Time Location / / Volume Laterality 05/07/2006 1:13 PM RED LEAD BURNER Alejandra Cleveland PA-C LAB_1 Performing Organization Address City/State/ZIP Code Phon e Number HP CONVERSION documented in this encounter Visit Diagnoses Not on filedocumented in this encounter Care Teams Beamer Hand Relationship Specialty Start Date End Date Mikala Best APRN, ERP MANAGER PCP - General 07/16/10 02/11/12 [address] [address] [place] [address] documented as of this encounter
--- OUTSIDE RECORDS SUMMARY | 2022-03-23 17:37 | XMS_ITS | Encounter Summary ---
:1980 Author Organization [facility] Address [address], [place] [address] Care Team Providers Name Role Phone Mikala Best APRN, CNP Primary Care Provider [phone] Encounter Details Date Type Department Care Team Description 05/16/2005 Routine Allen Tam Obstetrics/[place] [address] [place] [address] [place] [address] [phone] (Wo rk) Social History Tobacco Use Types Packs/Day Years Used Date Smoking Tobacco: Never Assessed Sex Assigned at Date Recorded Not on file documented as of this encounter Plan of Treatment Not on filedocumented as of this encounter Visit Diagnoses Not on filedocumented in this encounter Care Teams Aoc Plans Intelligence Officer Relationship Specialty Start Date End Date Mikala Best APRN, CNP PCP - General 07/16/10 02/11/12 [address] [place] [place] [address] documented as of this encounter
--- OUTSIDE RECORDS SUMMARY | 2022-03-23 17:37 | XMS_ITS | Encounter Summary ---
:1980 Author Organization [facility]ly [facility] Address [address] [place] [address] Care Team Providers Name Role Phone Nasir Mikala URBINA CNP Primary Care Provider [phone] Encounter Details Date Type Department Care Team Description 09/06/2006 PN Conversion Only [place] N Elizabeth Thomson [address] [facility], [place] [address] [facility] [address] [place] [address] Social History Tobacco Use Types Packs/Day Years Used Date Smoking Tobacco: Never Assessed Sex Assigned at Date Recorded Not on file documented as of this encounter Plan of Treatment Not on filedocumented as of this encounter Procedures Procedure Name Priority Date/Time Associated Diagnosis Comme nts HCG,QUALITATIVE, Routine 09/06/2006 12:03 PM Resu lts for this SERUM CDT procedure ar e in the results section. HCG, QUANTITATIVE, Routine 09/06/2006 12:03 PM Re sults for this SERUM CDT procedure ar e in the results section. documented in this encounter Results HCG, Qualitative, Serum (09/06/2006 12:03 PM CDT) [facility] Method Time Signature Serum Negative No normal HP CONVERSION Test range Comment: The sensitivity of this assay is 25 mIU/ mL. This test can detect as early as 10-12 days after conception. It may be positive before a first missed menses. A negative result does no t rule out an early . Specimen (Source) Anatomical Collection Method Collection Time Re ceived Time Location / / Volume Laterality 09/06/2006 12:03 PM CDT Elizabeth Thomson PA-C LAB_1 Performing Organization Address [facility] Phon e Number HP CONVERSION HCG, Quantitative, Serum (09/06/2006 12:03 PM CDT) P athologist Signature HCG For <2 0 - 6 HP CONVERSION mIU/mL Comment: Approximate ?Approximate Gestational Age ?Concentration (m IU/mL) ---X 0-1 week ? 5-50 1-2 weeks ?50-500 2-3 weeks ?100-5000 3-4 weeks ?500-10,000 1-2 months ? 1000-200,000 2-3 months ? 15,000-200,000 2nd trimester ?----- 3rd trimester ?----- Tumor marker ? <5 Specimen (Source) Anatomical Collection Method Collection Time Re ceived Time Location / / Volume Laterality 09/06/2006 12:03 PM CDT Elizabeth Thomson PA-C LAB_1 Performing Organization Address City/[facility] Phon e Number HP CONVERSION documented in this encounter Visit Diagnoses Not on filedocumented in this encounter Care Teams Musical Instrument Mechanic Relationship Specialty Start Date End Date Mikala Best APRN, MARINE ENGINE MECHANIC PCP - General 07/16/10 02/11/12 [address] [place] [address] documented as of this encounter
--- OUTSIDE RECORDS SUMMARY | 2022-03-23 17:37 | XMS_ITS | Encounter Summary ---
:1980 Author Organization [facility] Address [address], [place] [address] Care Team Providers Name Role Phone Mikala Best APRN, CNP Primary Care Provider [phone] Encounter Details Date Type Department Care Team Description 05/10/2005 Routine Allen Tam Obstetrics/[place] [address] [address] [place] [address] [place] [address] [phone] (Wo rk) Social History Tobacco Use Types Packs/Day Years Used Date Smoking Tobacco: Never Assessed Sex Assigned at Date Recorded Not on file documented as of this encounter Plan of Treatment Not on filedocumented as of this encounter Visit Diagnoses Not on filedocumented in this encounter Care Teams Abalone Processor Relationship Specialty Start Date End Date Mikala Best APRN, CNP PCP - General 07/16/10 02/11/12 [address] [place] [address] documented as of this encounter
--- OUTSIDE RECORDS SUMMARY | 2022-03-23 17:37 | XMS_ITS | Encounter Summary ---
:1980 [facility] Address [address] [address] Care Team Providers Name Role Phone Mikala Best APRN, CNP Primary Care Provider [phone] Reason for Visit Reason Comments Other Encounter Details Date Type Department Care Team Description 09/05/2006 Telephone [facility] Obstetric s/Gynecology Stefan Taveras Other [address] [place] [address] Social History Tobacco Use Types Packs/Day Years Used Date Smoking Tobacco: Never Assessed Sex Assigned at Date Recorded Not on file documented as of this encounter Progress Notes Stefan Taveras - 09/05/2006 11:43 AM CDT Phone Note filed by Stefan Taveras RN at 07/31/102115 Author: Stefan Taveras RN Service: (none) Author Type: (none) Filed: 07/31/102115 Note Time: 09/05/06 1143 Status: Signed Airport Representative: Guanako Mendoza Pt calling for three things: control refill. Pt is overdue but has been in [place] and unable to come in. Pt was advised to call her pharmacy and request a refill and let them know that she does have pap and pe scheduled for 09.22.06 w/Che Fall. Second, pt neeeds appt for pap and pe - scheduled per above. Third, pt has been on same OCP for 15 years. Last night after intercourse w/ pt experiencing bright red spotting needing pantyliner. Pt was advised to stay on OCP as rx'd and abstain from intercourse for a couple of days. Continue to monitor. If increases to requiring tampon or maxi pad, pain or any other sx develop to return call to be seen. Pt verbalizes understanding and will call back prn. Created on 05Sep2006 11:43am by STEFAN TAVERAS GER RELATIONSHIP documented in this encounter Plan of Treatment Not on filedocumented as of this encounter Visit Diagnoses Not on filedocumented in this encounter Care Teams Radar Signal Processing Engineer Relationship Specialty Start Date End Date Mikala Bets APRN, SCRIPT EDITOR PCP - General 07/16/10 02/11/12 [address] [place] [address] documented as of this encounter
--- OUTSIDE RECORDS SUMMARY | 2022-03-23 17:37 | XMS_ITS | Encounter Summary ---
:1980 Author Organization [facility] Address [address] [address] Care Team Providers Name Role Phone Mikala Best APRN, CNP Primary Care Provider [phone] Encounter Details Date Type Department Care Team Description 05/01/2005 PN Conversion Only [place] [facility] N Jessica Gimenez [address] [facility] [id number] [address] [place], [place] [id number] (Wo rk) Social History Tobacco Use Types Packs/Day Years Used Date Smoking Tobacco: Never Assessed Sex Assigned at Date Recorded Not on file documented as of this encounter Plan of Treatment Not on filedocumented as of this encounter Visit Diagnoses Not on filedocumented in this encounter Care Teams Health Care Manager Relationship Specialty Start Date End Date Mikala Best APRN, CNP PCP - General 07/16/10 02/11/12 [address] [place] [id number] documented as of this encounter
--- OUTSIDE RECORDS SUMMARY | 2022-03-23 17:37 | XMS_ITS | Encounter Summary ---
:1980 Author [facility] Address [address] [address] Care Team Providers Name Role Phone Nasir Mikala URBINA CNP Primary Care Provider [phone] Encounter Details Date Type Department Care Team Description 04/23/2006 Office Visit [facility] Alejandra Hartman PA-C [address] [place] [address] [phone] (Wo rk) Social History Tobacco Use Types Packs/Day Years Used Date Smoking Tobacco: Never Assessed Sex Assigned at Date Recorded Not on file documented as of this encounter Last Filed Vital Signs Vital Sign Reading Time Taken Comments Blood Pressure 114/68 04/23/2006 10:40 AM TOOLING MECHANIC Pulse 76 04/23/2006 10:40 AM TOOLING MECHANIC Temperature 36.9 ??C (98.4 ??F) 04/23/2006 10:40 AM ORAL C: 36.9 C TOOLING MECHANIC Respiratory Rate - - Oxygen Saturation - - Inhaled Oxygen Concentration - - Weight 75.3 kg (165 lb 15.8 04/23/2006 10:40 AM C: 75.3 kg oz) TOOLING MECHANIC Height - - Body Mass Index 27.41 07/10/2004 4:32 PM TOOLING MECHANIC documented in this encounter Progress Notes Alejandra Cleveland PA-C - 04/23/2006 12:01 AM CST Progress Notes signed by Alejandra Cleveland PA-C at 04/28/06 0395 Author: Alejandra Cleveland PA-C Service: (none) Author Type: Physician Special Class Welder Filed: 08/03/10 8925 Note Time: 04/23/06 0001 Status: Signed Art Education Professor: Alejandra Cleveland PA-C (Physician Special Class Welder) NAME: SHAMIR NOLASCO MR#: [id number] ACCT: VISIT: [id number] DICTATING CLINICIAN: DONALDO RÍOS JOB: [id number] LOC: 502 CLINIC PROGRESS NOTE DATE OF VISIT: 04/23/2006 SUBJECTIVE: Shamir is a 26-year-old female who comes to the clinic today concerned about sinus symptoms. She has had sinus pressure, pain, and green discharge from her nose. This has been going on about 10 days. She does not feel yet like she is getting better. She has also had headaches. 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 She has been using Afrin nasal spray for the past couple of days, which helps a little bit, and some [id number] Sudafed. Denies any fevers or coughing. She also mentions a mole on her right leg she would like evaluated. It has been there about 7 or 8 months. She feels like it occurred somewhat suddenly and has gotten somewhat bigger. It does not itch. She has had no moles removed before. There is no family history of skin cancer. She does report a history of a lot of sun exposure, although not currently. PAST MEDICAL HISTORY: Has had sinus infections in the past, none recently. Also has seasonal allergies, not active. MEDICATIONS: Reviewed and updated on health profile in LastWord today. ADR/ALLERGIES: REVIEWED AND UPDATED ON HEALTH PROFILE IN LASTWORD TODAY. OBJECTIVE: VS: BP: 114/68. T: 98.5. P: 76. Wt: 166. CONSTITUTIONAL: Sitting comfortably, appears well. Eyes: Sclerae and conjunctivae clear. ENT: TMs nonerythematous. Nasal Mucosa: Moderately congested with sinus tenderness over maxillary sinuses. Oropharynx clear. No tonsillar enlargement. NECK: No cervical lymphadenopathy. LUNGS: Clear to auscultation. HEART: Regular rate and rhythm. SKIN: In the medial leg, just superior to the knee, there is a 5-mm, pink, raised, nodular-appearing lesion with regular borders. Regular coloration throughout. ASSESSMENT: 1. Sinusitis. 2. Irregular nevus. PLAN: Amoxicillin 875 and Entex PSE. Increase hydration. Limit Afrin use. Recommended biopsy for the mole. She will schedule that in the near future. [id number] C: 04/24/06 15:34 DOCUMENT: [id number] ING MECHANIC documented in this encounter Plan of Treatment Not on filedocumented as of this encounter Visit Diagnoses Not on filedocumented in this encounter Care Teams Computer Systems Auditor Relationship Specialty Start Date End Date Mikala Best APRN, STEAM METER READER PCP - General 07/16/10 02/11/12 [address] [place] [id number] documented as of this encounter
--- OUTSIDE RECORDS SUMMARY | 2022-03-23 17:37 | XMS_ITS | Encounter Summary ---
:1980 Author [facility] Address [address], [place] [address] Care Team Providers Name Role Phone Mikala Best APRN, CNP Primary Care Provider [phone] Encounter Details Date Type Department Care Team Description 07/08/2005 Office Visit Jessica Ness, Obstetrics/Gynecolog y BONITA URBINA [id number] [place] [address] [phone] (Wo rk) Social History Tobacco Use Types Packs/Day Years Used Date Smoking Tobacco: Never Assessed Sex Assigned at Date Recorded Not on file documented as of this encounter Progress Notes Jessica Gimenez APRN, CNP - 07/08/2005 12:01 AM CST Progress Notes signed by Jessica Gimenez APRN, CNP at 07/18/05 0752 Author: BHUMIKA Medel Service: (none) Author Type: Nurse Practitioner Filed: 08/03/10 1119 Note Time: 07/08/05 0001 Status: Signed Diabetes Manager: BHUMIKA Medel (Nurse Practitioner) NAME: SHAMIR NOLASCO MR: [id number] ACCT: [id number] VISIT: [id number] DICTATING CLINICIAN: BHUMIKA MEDEL JOB: [id number] CLINIC PROGRESS NOTE DATE OF VISIT: 07/08/2005 SUBJECTIVE: : 1980. Patient is a 25-year-old, 1, para 1, delivered at 39 weeks gestation on 05/23/05. Patient was induced due to severe back pain. She had an amniotomy and IV Pitocin, as well as an epidural. Labor progressed rather quickly. Within about 4-1/2 hours, patient was completely dilated and only pushed about 7 minutes. She delivered an 8 lb. 10 oz. female over a couple of perineal lacerations. Baby's name is Sally Mccabe. Patient states that she had a of someone very close to her shortly after the baby was born, and she is having a hard time with anxiety and not sleeping well. She gets up to nurse the baby during the night and cannot go back to sleep. Her mind just keeps racing. She tried Ambien and had a real severe reaction to that. She states that she recently developed a real redness in her breast area, as well as a lot of pain, and the right breast has been bleeding. Baby has some white patches like thrush in the mouth. Patient states her back pain is, pretty much, gone at this point in time. She is doing quite well. Dad is very helpful with the baby. They are both very excited about the child. Patient went back to work on 06/25, just a limited basis, and will go back on 07/21. Patient states no episiotomy pain. Bleeding has stopped. She has not resumed menses or intercourse. She would like to do condoms for control at this time. When she is done , she will go back to the Tri-Cyclen control pills. OBJECTIVE: VS: BP: 102/64. Ht: Not available. Wt: 166-1/2, normal 163. Patient is neatly groomed, alert and oriented, in good mental health status, in no acute distress or pain. BREASTS: Supine position: Breast nipple areas are quite red and hot, feeling quite inflamed. Remainder of exam was normal, other than breasts are very full at this time. External genitalia is pink and healthy. The vaginal lacerations were healed. Vaginal tissues are quite hypoestrogenic, and the cervix did bleed slightly with Pap smear taking. There was no evidence of vaginal infection. Bimanual exam was normal. ASSESSMENT: Normal exam, hypoestrogenic vaginal tissues, breast yeast, as well as baby has thrush. PLAN: We will treat with Diflucan 150 mg 1 tablet, as well as nystatin cream to the breasts 3-4 times a day. Baby was given nystatin swish and swallow. Patient was given a prescription for the Tri-Cyclen control pills to start when she is done . She is good for 1 year, will call for any further problems. A note to release patient to work was given. I did discuss patient's anxiety as possibly being related to mild depression or due to the loss. She might want to attend a grieving class with her , it was his brother who . Total visit with patient was 25 minutes. [id number] C: 07/09/05 12:31 DOCUMENT: [id number] documented in this encounter Plan of Treatment Not on filedocumented as of this encounter Visit Diagnoses Not on filedocumented in this encounter Care Teams Center Administrator Relationship Specialty Start Date End Date Mikala Best APRN, CNP PCP - General 07/16/10 02/11/12 [address] [place] [address] documented as of this encounter
--- OUTSIDE RECORDS SUMMARY | 2022-03-23 17:37 | XMS_ITS | Encounter Summary ---
:1980 Author Organization [facility] Address [address] [place] [address] Care Team Providers Name Role Phone BevGilles alvaradomacario URBINA CNP Primary Care Provider [phone] Encounter Details Date Type Department Care Team Description 09/25/2005 Office Visit [facility] Marquez Boyce DPM [facility] [address] [facility] [address] [place] [address] [place] [address] [phone] Social History Tobacco Use Types Packs/Day Years Used Date Smoking Tobacco: Never Assessed Sex Assigned at Date Recorded Not on file documented as of this encounter Progress Notes Arnoldo Boyce DPM - 09/25/2005 12:01 AM CDT Progress Notes signed by Arnoldo Boyce DPM at 09/30/05 0813 Author: Arnoldo Boyce DPM Service: (none) Author Type: Physician Filed: 08/03/10 1256 Note Time: 09/25/05 0001 Status: Signed Puppet Master: Arnoldo Boyce DPM (Physician) NAME: SHAMIR NOLASCO MR: [id number] ACCT: [id number] VISIT: [id number] DICTATING CLINICIAN: Arnoldo Boyce DPM JOB: [id number] CLINIC PROGRESS NOTE DATE OF VISIT: 09/25/2005 SUBJECTIVE: Patient presents for followup. Her last visit with me was 2 years ago and I did give her a prescription for Lamisil tablets. She did not fill this because she became . Her main concern today is an infection on her right great toe this has been bothering her for about 2 weeks. She has had problems with this in the past, but never to the point where there was pus coming from the area. ADR/ALLERGIES: SHE DENIES ALLERGIES TO MEDICATIONS. REVIEW OF SYSTEMS: Negative for diabetes. OBJECTIVE: The patient is neurovascularly intact. She does have an obvious paronychia noted on the lateral aspect of the right great toe. There is granulation tissue identified. No other abnormalities noted. ASSESSMENT: Onychocryptosis with paronychia lateral aspect right great toe. PLAN: Treatment options were discussed with the patient. I discussed with her a nail avulsion. The pros, cons, risks and complications were reviewed. She was told she could have pain and that she will have regrowth as I am not destroying the nail. The right great toe was anesthetized with 3 cc of 2% lidocaine. This was followed by a Betadine scrub. The lateral aspect of the right great toenail was then avulsed. Bacitracin and a dressing was applied. She was given soaking instructions and will followup with me p.r.n. basis. ALP:[id number] C: 09/26/05 11:14 DOCUMENT: [id number] documented in this encounter Plan of Treatment Not on filedocumented as of this encounter Visit Diagnoses Not on filedocumented in this encounter Care Teams Quill Reamer Relationship Specialty Start Date End Date Mikala Best APRN, RAW PRODUCTS DIRECTOR PCP - General 07/16/10 02/11/12 [address] [place] [address] documented as of this encounter
--- OUTSIDE RECORDS SUMMARY | 2022-03-23 17:37 | XMS_ITS | Encounter Summary ---
:1980 Author [facility] Address [address] [address] Care Team Providers Name Role Phone Nasir Mikala URBINA CNP Primary Care Provider Encounter Details Date Type Department Care Team Description 09/06/2006 Office Visit [facility] Elizabeth Hayward, [address] [address] [facility] [place] [address] [address] [phone] [place], [place] [address] Social History Tobacco Use Types Packs/Day Years Used Date Smoking Tobacco: Never Assessed Sex Assigned at Date Recorded Not on file documented as of this encounter Last Filed Vital Signs Vital Sign Reading Time Taken Comments Blood Pressure 104/57 09/06/2006 11:34 AM CDT Pulse 62 09/06/2006 11:34 AM CDT Temperature 36.9 ??C (98.4 ??F) 09/06/2006 11:34 C: 36.9 C S imultaneous AM CDT filing. User may not have seen previo us data. Respiratory Rate 12 09/06/2006 11:34 AM CDT Oxygen Saturation - - Inhaled Oxygen - - Concentration Weight - - Height - - Body Mass Index - - documented in this encounter Progress Notes Elizabeth Hayward PA-C - 09/06/2006 12:01 AM CDT Progress Notes signed by Elizabeth Hayward PA-C at 09/18/06 6202 Author: Elizabeth Hayward PA-C Service: (none) Author Type: Resource Filed: 08/03/10 1950 Note Time: 09/06/062015 Status: Signed Zinc Plater: Elizabeth Hayward PA-C (Resource) NAME: SHAMIR NOLASCO MR#: [id number] ACCT: [id number] VISIT: [id number] DICTATING CLINICIAN: ELIZABETH HAYWARD PA-C JOB: [id number] LOC: 520 CLINIC PROGRESS NOTE DATE OF VISIT: 09/06/2006 SUBJECTIVE: A 26-year-old female complaining of vaginal bleeding for the past 3 days. States her last menstrual period was on 08/14 and since the age of 14 when she was put on control pills, her period has always been right on time. She recently returned from [facility] where she was there for 2 months. States that she has had some cramping, no clots. No fever or chills. No other symptoms. PAST MEDICAL HISTORY: 1, para 1. MEDICATIONS: Reviewed by myself in LastWord. ADR/ALLERGIES: REVIEWED BY MYSELF IN LASTWORD. SOCIAL HISTORY: Does not smoke. OBJECTIVE: VS: BP: 104/57. T: 98.4. P: 62. R: 12. Well-developed, well-nourished female in no acute distress, alert and cooperative. Patient looks well. She is alert and cooperative. LUNGS: Clear. No rhonchi, wheezing or crackles. CV: Regular rate and rhythm, no murmurs, rubs or gallops. VAGINAL EXAM: External genitalia free without lesions. Vaginal vault: There is a large amount of blood coming from the os. There is no cervical motion tenderness, no adnexal tenderness to palpation. No blood clots are seen. Qualitative test was negative. ASSESSMENT: Vaginal bleeding, possibly early repeat of menses. PLAN: Patient is to continue to take her control pills as directed. Did talk to her that usually if somebody is vaginally bleeding, we put them on a hormone which her control pills already have. But if the symptoms still persist into next week, need to be reseen. [id number] C: 09/07/06 13:39 DOCUMENT: [id number] documented in this encounter Plan of Treatment Not on filedocumented as of this encounter Visit Diagnoses Not on filedocumented in this encounter Care Teams Carpet Technician Relationship Specialty Start Date End Date Mikala Best APRN, TAI CHI INSTRUCTOR PCP - General 07/16/10 02/11/12 [address] [place] [address] documented as of this encounter
--- OUTSIDE RECORDS SUMMARY | 2022-03-23 17:37 | XMS_ITS | Encounter Summary ---
:1980 Author [facility] Address [address] [address] Care Team Providers Name Role Phone Mikala Best APRN, CNP Primary Care Provider Reason for Visit Reason Comments Other Encounter Details Date Type Department Care Team Description 08/13/2005 Telephone [facility]Gyne[facility] Pierce Siddiqui Other [address] [place] [address] Social History Tobacco Use Types Packs/Day Years Used Date Smoking Tobacco: Never Assessed Sex Assigned at Date Recorded Not on file documented as of this encounter Progress Notes Pierce Siddiqui - 08/13/2005 8:01 AM CDT Phone Note filed by Pierce Siddiqui RN at 07/31/10332 Author: Pierce Siddiqui RN Service: (none) Author Type: Registered Nurse Filed: 07/31/10332 Note Time: 08/13/05 08 Status: Signed Home Manager: Pierce Siddiqui RN (Registered Nurse) Pt. calling. Delivered a baby on 05/23 and has now weaned her from breast feeding. Is ready to start taking her ocp again and is asking how to start. Has not had a period yet. Advised that she can pick any day she wants and start. Most women do a Friday start. Advised that it may take up to 3 months for her period to regulate itself. Created on 13Aug2005 8:01am by PIERCE SIDDIQUI EY PRESS OPERATOR documented in this encounter Plan of Treatment Not on filedocumented as of this encounter Visit Diagnoses Not on filedocumented in this encounter Care Teams High Speed Operator Relationship Specialty Start Date End Date Mikala Best APRN, MANAGER ETL PCP - General 07/16/10 02/11/12 [address] [place] [address] documented as of this encounter
--- OUTSIDE RECORDS SUMMARY | 2022-03-23 17:37 | XMS_ITS | Encounter Summary ---
:1980 [facility] Address [address] [place] [address] Care Team Providers Name Role Phone Nasir Mikala URBINA CNP Primary Care Provider [phone] Reason for Visit Reason Comments Other Encounter Details Date Type Department Care Team Description 10/14/2005 Telephone Lise Hewitt MD Other Obstetrics/Gynecolog y [address] [facility] [address] [place] [address] [place] [address] [phone] Social History Tobacco Use Types Packs/Day Years Used Date Smoking Tobacco: Never Assessed Sex Assigned at Date Recorded Not on file documented as of this encounter Progress Notes Eloina Lauren MA - 10/14/2005 3:08 PM CDT Phone Note filed by Eloina Lauren MA at 07/31/10 0552 Author: Eloina Lauren MA Service: (none) Author Type: Ice Scraper Filed: 07/31/10 0552 Note Time: 10/14/05 1508 Status: Signed Enterprise Account Executive: Eloina Lauren MA (Ice Scraper) pt stopped by to inform Dai that wrong med (triphasel) was called to pharmacy ([facility]). She wanted ortho-tricycline. She is not anylonger. She can be reached at [phone] if need be Created on [id number] 3:08pm by ELOINA LAUREN On 14Oct2005 3:42pm LISE SIFUENTES wrote: Prescription sent. Dr. Sifuentes Acknowledged by LISE SIFUENTES on 3:42pm ER MARKER documented in this encounter Plan of Treatment Not on filedocumented as of this encounter Visit Diagnoses Not on filedocumented in this encounter Care Teams Dairy Grazer Relationship Specialty Start Date End Date Mikala Best APRN, INSPECTOR FIBROUS WALLBOARD PCP - General 07/16/10 02/11/12 [address] [place] [address] documented as of this encounter
--- OUTSIDE RECORDS SUMMARY | 2022-03-23 17:37 | XMS_ITS | Encounter Summary ---
:1980 Author Organization [facility] Address [address] [place] [address] Care Team Providers Name Role Phone BevGilles alvaradomacario URBINA CNP Primary Care Provider [phone] Reason for Visit Reason Comments Other Encounter Details Date Type Department Care Team Description 09/09/2006 Telephone David Hewitt MD Other Obstetrics/Gynecolog y [address] [address] [address] [place] [address] [place] [address] [phone] Social History Tobacco Use Types Packs/Day Years Used Date Smoking Tobacco: Never Assessed Sex Assigned at Date Recorded Not on file documented as of this encounter Progress Notes Tasha Tafoya - 09/09/2006 10:34 AM CDT Phone Note filed by Tasha Tafoya MA at 07/31/102120 Author: Tasha Tafoya MA Service: (none) Author Type: Utility Mechanic Filed: 07/31/102120 Note Time: 09/09/06 1034 Status: Signed Ball Fringe Machine Operator: Tasha Tafoya MA (Utility Mechanic) Prescription Refill Please provide enough refills to last until patient's next visit. Comment:- Last pap 07/08/05, Appt. on 09/22/06 Pharmacy Seq #:- n/a Pharmacy Name:- [facility] or City:- [address] [place] Clinician Name:- David Sifuentes Drug Name/Strength:- Ortho Tri-Cyclen 28 Tablet Sig: Dose/Route/Freq:- Take l tablet daily as directed Quantity & Last Fill:- 84 03/24/06 Created on 09Sep2006 10:34am by TASHA TAFOYA On 09Sep2006 12:29pm DAVID SIFUENTES wrote: A prescription was faxed to the pharmacy indicated. Dr. David Sifuentes *SH~DNS~Custom1 Acknowledged by DAVID SIFUENTES on 12:29pm RCEPTOR OPERATOR documented in this encounter Plan of Treatment Not on filedocumented as of this encounter Visit Diagnoses Not on filedocumented in this encounter Care Teams High School Tutor Relationship Specialty Start Date End Date Mikala Best APRN, EDGER HAND PCP - General 07/16/10 02/11/12[address] [place] [address] documented as of this encounter
--- OUTSIDE RECORDS SUMMARY | 2022-03-23 17:38 | XMS_ITS | Encounter Summary ---
:1980 Author Organization Counts include [facility] beds at the [facility] Address [address] [address] Care Team Providers Name Role Phone Bevjenny Mikala URBINA CNP Primary Care Provider [phone] Encounter Details Date Type Department Care Team Description 10/16/2004 Initial [place] Jessica Gimenez Obstetrics/Gynecolog y CARLITOS Gomez CNP [address] [phone] [place] [address] (Wo rk) Social History Tobacco Use Types Packs/Day Years Used Date Smoking Tobacco: Never Assessed Sex Assigned at Date Recorded Not on file documented as of this encounter Progress Notes Jessica Gimenez APRN, CNP - 10/16/2004 12:01 AM CDT Progress Notes signed by Jessica Gimenez APRN, CNP at 10/18/04 1724 Author: BHUMIKA Medel Service: (none) Author Type: Nurse Practitioner Filed: 08/03/10 0608 Note Time: 10/16/04 0001 Status: Signed Director Of Catering Sales: BHUMIKA Medel (Nurse Practitioner) NAME: SHAMIR NOLASCO MR: [id number] ACCT: [id number] VISIT: [id number] DICTATING CLINICIAN: BHUMIKA MEDEL JOB: [id number] CLINIC PROGRESS NOTE DATE OF VISIT: 10/16/2004 SUBJECTIVE: : 1980. The patient is a 24-year-old, female. is age 24 and with patient today. This is a planned and they are very excited. She stopped control pills and only had her period with a pack of pills. She states an LMP of 08/22/04, tentative EDC 05/31/05. The patient is having early symptoms. Some nausea, slight breast tenderness. Otherwise she is feeling very well. Remainder of complete review of systems is negative. Review of family and personal health history is unremarkable for problems. MEDICATIONS: The patient is currently taking vitamins. ADR/ALLERGIES: HAS NO MED ALLERGIES. OBJECTIVE: VS: BP: 114/80. Ht: 5 ft. 5-04/15. Wt: 163. The patient should be 7.5 weeks . The patient is neatly groomed, alert and oriented, in good mental health status and in no acute distress or pain. CONSTITUTIONAL: Blood pressure, height, and weight done by nursing staff. Well-developed, well-nourished female. EYES AND EARS: Not examined. MOUTH/THROAT: Gums pink, teeth in good repair. Mucous membranes intact, throat without exudate. NECK: Supple, trachea midline, without cervical lymphadenopathy. Thyroid nontender and no palpable masses, symmetrical. RESPIRATORY: Lungs clear to auscultation. Respiration effortless. CARDIOVASCULAR: Heart with regular rate and without murmur. Legs without swelling and varicosities. BREASTS: Symmetrical, no dominant palpable masses. Without axillary lymphadenopathy. ABDOMEN/GI: Soft, without tenderness and no palpable masses. Without organomegaly. GENITOURINARY: Vagina pink without lesions - rugae present. Cervix has positive Madison's. No evidence of vaginal infection. Pap obtained with Cytobrush/spatula. Uterus is 8 to 9 weeks size. FHTs were not heard but were positive on ultrasound I am very sure and fetus looks like it is close to 8 weeks size. Adnexa without palpable masses and nontender. Anus and perineum without lesions or hemorrhoids. LYMPHATIC: Nodes in axillae, neck, and groin without masses. SKIN: Warm and dry to touch. Without lesions. PSYCHIATRIC: Oriented to time and space. Without agitation or depression. The patient and were reassured of viability. ASSESSMENT: Normal new OB exam. Primip. PLAN: Discussed doctor, hospitals for delivery, office visits, labs, ultrasounds, weight gain in , increasing calcium and iron foods, exercise, sexual activity, travel, work, seat belt use and meds safe in were discussed. The patient will return to see physician in four weeks or call for problems. Total visit with patient was 45 minutes, education time was 35 minutes. FINAL IMPRESSION: Normal new OB exam. Primip. KMG:[id number] C: 10/17/04 13:19 DOCUMENT: [id number] documented in this encounter Plan of Treatment Not on filedocumented as of this encounter Visit Diagnoses Not on filedocumented in this encounter Care Teams Work Adjustment Instructor Relationship Specialty Start Date End Date Mikala Best APRN, BONITA PCP - General 07/16/10 02/11/12 [address] [place] [address] documented as of this encounter
--- OUTSIDE RECORDS SUMMARY | 2022-03-23 17:38 | XMS_ITS | Encounter Summary ---
:1980 Author Organization [facility] Address [address], [place] [address] Care Team Providers Name Role Phone Mikala Best APRN, CNP Primary Care Provider [phone] Encounter Details Date Type Department Care Team Description 04/25/2005 Routine Allen Tam Obstetrics/[place] [address] [address] [place] [address] [place] [address] [phone] (Wo rk) Social History Tobacco Use Types Packs/Day Years Used Date Smoking Tobacco: Never Assessed Sex Assigned at Date Recorded Not on file documented as of this encounter Plan of Treatment Not on filedocumented as of this encounter Visit Diagnoses Not on filedocumented in this encounter Care Teams Canal Lock Tender Chief Operator Relationship Specialty Start Date End Date Mikala Best APRN, CNP PCP - General 07/16/10 02/11/12 [address] [place] [address] documented as of this encounter
--- OUTSIDE RECORDS SUMMARY | 2022-03-23 17:38 | XMS_ITS | Encounter Summary ---
:1980 Author Organization [facility] Address [address] [place] [address] Care Team Providers Name Role Phone BevGilles alvaradomacario URBINA, BONITA Primary Care Provider [phone] Encounter Details Date Type Department Care Team Description 04/25/2004 Operation Supervisor Only [facility] Nasir Boyce, MedSurafag DPM [address] [place] [address] [place] [address] [phone] (Wo rk) Social History Tobacco Use Types Packs/Day Years Used Date Smoking Tobacco: Never Assessed Sex Assigned at Date Recorded Not on file documented as of this encounter Progress Notes Arnoldo Boyce DPM - 04/25/2004 12:01 AM CST Progress Notes signed by Arnoldo Boyce DPM at 04/25/04 1101 Author: Arnoldo Boyce DPM Service: (none) Author Type: Physician Filed: 08/03/10 0246 Note Time: 04/25/04 0001 Status: Signed Bar Host: Arnoldo Boyce DPM (Physician) I did leave a message for the patient. We did get back a final culture which showed growth. I did send in for preauthorization and obtained this. The authorization number is [id number]. The patient can fill the Rx that was given to her. E FOREIGN TOUR documented in this encounter Plan of Treatment Not on filedocumented as of this encounter Visit Diagnoses Not on filedocumented in this encounter Care Teams Hospital Nurse Relationship Specialty Start Date End Date Mikala Best APRN, BAD WORK GATHERER PCP - General 07/16/10 02/11/12 [address] [place] [address] documented as of this encounter
--- OUTSIDE RECORDS SUMMARY | 2022-03-23 17:38 | XMS_ITS | Encounter Summary ---
:1980 Author [facility] Address [address], [place] [address] Care Team Providers Name Role Phone Mikala Best APRN, CNP Primary Care Provider [phone] Encounter Details Date Type Department Care Team Description 05/01/2005 PN Conversion Only [facility] Jessica Gimenez [address] [facility] [address] [address] [place] [address] (Wo rk) Social History Tobacco Use Types Packs/Day Years Used Date Smoking Tobacco: Never Assessed Sex Assigned at Date Recorded Not on file documented as of this encounter Plan of Treatment Not on filedocumented as of this encounter Procedures Procedure Name Priority Date/Time Associated Comments Diagnosis GROUP B STREP SCREEN Routine 05/01/2005 1:28 PM R esults for this (OB PTS) IGNITER ASSEMBLER procedure are i n the results section. URINALYSIS COMPLETE Routine 05/01/2005 12:40 PM R esults for this IGNITER ASSEMBLER procedure are i n the results section. documented in this encounter Results Group B Strep Screen (OB Pts) (05/01/2005 1:28 PM IGNITER ASSEMBLER) [facility] Time Signature Culture Strep SEE TEXT HP CONVERSION Screen Other Source Comment: Patient: SHAMIR NOLASCO Culture Strep Scr Other Source @ ?Collected: ??[id number] ??[id number] Source: Vaginal ? Processed: ??[id number] ??[id number] ? V Final Report ------ ?[id number] ??[id number] No group A or B Streptococcus isolated @ = Strep Screen Performed at ??[address] [place], [place] ?[address] Specimen (Source) Anatomical Collection Method Collection Time Re ceived Time Location / / Volume Laterality 05/01/2005 1:28 PM IGNITER ASSEMBLER Jessica Gimenez APRN, PLANT PHYSIOLOGIST LAB_1 Performing Organization Address City/State/ZIP Code Phon e Number HP CONVERSION (ABNORMAL) Urinalysis Complete (05/01/2005 12:40 PM IGNITER ASSEMBLER) [facility] Method Time Signature Glucose, Negative Neg-Trac HP CONVERSION Qualitative U Protein Urine Negative Neg-Trac HP CONVERSION Ketones Negative Negative HP CONVERSION U BILI Negative Negative HP CONVERSION U Specific 1.015 1.005 - 25 HP CONVERSION [place] Blood Urine Negative Negative HP CONVERSION pH Urine 6.0 4.5 - 7.5 HP CONVERSION Urobilinogen Negative 0.2 - 1.0 HP CONVERSION Urine Nitrite Urine Negative Negative HP CONVERSION Leukocyte Negative Negative HP CONVERSION Esterase Urine White Blood 0-2/HPF 0 - 3 HP CONVERSION Cells Urine Red Blood Cells 0-2/HPF 0 - 2 HP CONVERSION Urine Bacteria Urine Rare (A) None HP CONVERSION Urine Mucus Occassnl None HP CONVERSION Epithelial Cells Few Few /HPF HP CONVERSION Crystals Amorph None HP CONVERSION Specimen (Source) Anatomical Collection Method Collection Time Re ceived Time Location / / Volume Laterality 05/01/2005 12:40 PM IGNITER ASSEMBLER Jessica Gimenez APRN, CNP LAB_1 Performing Organization Address City/State/ZIP Code Phon e Number HP CONVERSION documented in this encounter Visit Diagnoses Not on filedocumented in this encounter Care Teams Healthcare Representative Relationship Specialty Start Date End Date Mikala Best APRN, PLANT PHYSIOLOGIST PCP - General 07/16/10 02/11/[address] [place] [address] documented as of this encounter
--- OUTSIDE RECORDS SUMMARY | 2022-03-23 17:38 | XMS_ITS | Encounter Summary ---
:1980 Author Organization [facility] Address [address] [place] [address] Care Team Providers Name Role Phone Mikala Best APRN, CNP Primary Care Provider [phone] Encounter Details Date Type Department Care Team Description 12/07/2004 Routine Jessica Ness Obstetrics/Gynecolog y MCARLITOS, BONITA [address] [place] [address] [phone] [place], [place] [address] (Wo rk) Social History Tobacco Use Types Packs/Day Years Used Date Smoking Tobacco: Never Assessed Sex Assigned at Date Recorded Not on file documented as of this encounter Plan of Treatment Not on filedocumented as of this encounter Visit Diagnoses Not on filedocumented in this encounter Care Teams Awning Frame Maker Relationship Specialty Start Date End Date Mikala Best APRN, CNP PCP - General 07/16/10 02/11/[address] [place] [address] documented as of this encounter
--- OUTSIDE RECORDS SUMMARY | 2022-03-23 17:38 | XMS_ITS | Encounter Summary ---
:1980 Author Organization [facility] Address [address] [place] [address] Care Team Providers Name Role Phone BevGilles alvaradomacario URBINA CNP Primary Care Provider [phone] Encounter Details Date Type Department Care Team Description 03/27/2004 Office Visit [facility] Marquez Boyce DPM [facility] [address] [facility] [address] [place] [address] [place] [address] [phone] Social History Tobacco Use Types Packs/Day Years Used Date Smoking Tobacco: Never Assessed Sex Assigned at Date Recorded Not on file documented as of this encounter Progress Notes Prabha Boyce DPM - 03/27/2004 12:01 AM CST Progress Notes signed by Prabha Boyce DPM at 03/28/04 1129 Author: Prabha Boyce DPM Service: (none) Author Type: Physician Filed: 08/03/10 0217 Note Time: 03/27/04 0001 Status: Signed Hvac Instructor: Prabha Boyce DPM (Physician) NAME: SHAMIR NOLASCO MR: [id number] ACCT: [id number] VISIT: [id number] DICTATING CLINICIAN: PRABHA BOYCE DPM JOB: [id number] CLINIC PROGRESS NOTE DATE OF VISIT: 03/27/2004 SUBJECTIVE: Patient presents for initial clinic visit. She does wish to consider a medication for her nails. She states that her mother does have the medication. Patient has had problems with the nails for quite some time. She has used xvpu-lsz-ivvrhlh products which have not helped. She states that at times she will have considerable pain with the great toenails and that she is in the and is concerned that this will hamper with her functioning. ADR/ALLERGIES: SHE DENIES ALLERGIES TO MEDICATIONS. MEDICATIONS: She is currently taking oral contraceptives. PAST MEDICAL HISTORY: Unremarkable for diabetes or cancer or liver problems. REVIEW OF SYSTEMS: Are negative for fever or rash. OBJECTIVE: Patient is a 24-year-old female who appears her stated age. She is alert and oriented, and in no acute distress. She does walk without a limp. DP and PT pulses are palpable. Hair growth is present on the digits. Capillary filling time is less than two seconds. Patient does have discoloration noted to the great toenail plates, bilaterally. Her remaining nails appear to have normal appearance. There is no pain with subtalar or ankle joint range of motion. No weakness with muscle testing. No other abnormalities noted. ASSESSMENT: Onychomycosis, bilateral great toes. PLAN: Treatment options were discussed with the patient. I discussed the treatment options available. She does wish to pursue the oral medication. I discussed with her that her health plan does have very specific criteria for the medication. The patient does have discomfort and does have the discoloration. I did do a nail culture and will contact the patient on her cell phone with results of this. I did dispense a prescription for Lamisil 250 mg one p.o. daily for 90 days. She was also sent to the lab for blood tests. She does understand the potential complications that can occur including liver damage, skin rash, and stomach upset. I will contact her with the results and go through the preauthorization process.ALT and AST were ordered. TT [address] 20 minutes ALP:[id number] C: 03/28/04 08:38 DOCUMENT: [id number] A MARKETING DIRECTOR documented in this encounter Plan of Treatment Not on filedocumented as of this encounter Visit Diagnoses Not on filedocumented in this encounter Care Teams Radiation Therapy Technologist Relationship Specialty Start Date End Date Mikala Best APRN, VENEER REPAIRER MACHINE PCP - General 07/16/10 02/11/12 [address] [place] [place] [address] documented as of this encounter
--- OUTSIDE RECORDS SUMMARY | 2022-03-23 17:38 | XMS_ITS | Encounter Summary ---
:1980 Author Organization [facility] Address [address] [place] [address] Care Team Providers Name Role Phone Gilles Bestmacario URBINA, CRISIS MENTAL HEALTH THERAPIST Primary Care Provider [phone] Encounter Details Date Type Department Care Team Description 03/27/2004 PN Conversion Only [facility] Arnoldo Boyce, [address] [place] [address] [facility] [address] [facility] [place] [address] (Wo rk) Social History Tobacco Use Types Packs/Day Years Used Date Smoking Tobacco: Never Assessed Sex Assigned at Date Recorded Not on file documented as of this encounter Plan of Treatment Not on filedocumented as of this encounter Procedures Procedure Name Priority Date/Time Associated Diagnosis Comme nts FUNGUS Routine 03/27/2004 4:43 PM Results f or this CULTURE,MISCELLANEO PHLEBOTOMIST PRN procedur e are in US the results section. ALT (SGPT) Routine 03/27/2004 4:19 PM Results f or this PHLEBOTOMIST PRN procedure are i n the results section. AST Routine 03/27/2004 4:19 PM Results f or this PHLEBOTOMIST PRN procedure are i n the results section. documented in this encounter Results Fungus Culture,Miscellaneous (03/27/2004 4:43 PM PHLEBOTOMIST PRN) [facility] Time Signature Fungus Culture SEE TEXT HP CONVERSION Comment: Patient: SHAMIR NOLASCO Culture, Fungal @ ? Collected: ??[id number] ??[id number] Source: NAIL ?Processed: ??[id number] ??[id number] ? 1V Final Report ------ ?[id number] ??[id number] Fusarium species isolated Specimen (Source) Anatomical Collection Method Collection Time Re ceived Time Location / / Volume Laterality 03/27/2004 4:43 PM PHLEBOTOMIST PRN Arnoldo HWANG LAB_1 Performing Organization Address [facility] Phon e Number HP CONVERSION ALT (SGPT) (03/27/2004 4:19 PM PHLEBOTOMIST PRN) [facility] Method Time Signature Alanine 35 0 - 65 HP CONVERSION Aminotransferase U/L Specimen (Source) Anatomical Collection Method Collection Time Re ceived Time Location / / Volume Laterality 03/27/2004 4:19 PM PHLEBOTOMIST PRN Arnoldo HWANG LAB_1 Performing Organization Address City/[facility]/ZIP Code Phon e Number HP CONVERSION AST (03/27/2004 4:19 PM PHLEBOTOMIST PRN) [facility] Method Time Signature Aspartate 21 0 - 45 HP CONVERSION Aminotransferase U/L Specimen (Source) Anatomical Collection Method Collection Time Re ceived Time Location / / Volume Laterality 03/27/2004 4:19 PM PHLEBOTOMIST PRN Arnoldo HWANG LAB_1 Performing Organization Address City/State/ZIP Code Phon e Number HP CONVERSION documented in this encounter Visit Diagnoses Not on filedocumented in this encounter Care Teams Scrap Cutter Relationship Specialty Start Date End Date Mikala Best APRN, BONITA PCP - General 07/16/10 02/11/12 [address] [address] [place] [place] [address] documented as of this encounter
--- OUTSIDE RECORDS SUMMARY | 2022-03-23 17:38 | XMS_ITS | Encounter Summary ---
:1980 Author Organization [facility] Address [address] [place] [address] Care Team Providers Name Role Phone Mikala Best APRN, CNP Primary Care Provider [phone] Encounter Details Date Type Department Care Team Description 01/09/2005 PN Conversion Only [facility] [address] [place] [address] Social History Tobacco Use Types Packs/Day Years Used Date Smoking Tobacco: Never Assessed Sex Assigned at Date Recorded Not on file documented as of this encounter Plan of Treatment Not on filedocumented as of this encounter Procedures Procedure Name Priority Date/Time Associated Diagnosis Comme nts US OB >/= 14 WEEKS Routine 01/09/2005 11:00 AM Re sults for this 0 DAYS, SINGLE CDT procedure are in FETUS the results section. documented in this encounter Results US OB >/= 14 Weeks 0 Days, Single Fetus (01/09/2005 11:00 AM CDT) Anatomical Region Laterality Modality Pelvis Other Specimen (Source) Anatomical Location Collection Method / Collectio n Time Received Time / Laterality Volume Narrative 01/09/2005 11:00 AM CDT Single fetus is noted in transverse lie. ??Composite ultrasound gestational age is 20 weeks 4 days. ??Ul trasound EDC is 06/04/05. anatomic survey shows no congenita l anomalies. ??Placenta is posterior without previa. CO/01- [id number] Dictating HANNAH HART RADIOLOGIST Procedure Note Hannah Anderson MD - 06/20/2016 Single fetus is noted in transverse lie. Composite ultrasound gestational age is 20 weeks 4 days. Ultr asound EDC is 06/04/05. anatomic survey shows no congenita l anomalies. Placenta is posterior without previa. CO/01- [id number] Dictating HANNAH HART RADIOLOGIST Jessica Gimenez APRN, PMO LEAD DORA documented in this encounter Visit Diagnoses Not on filedocumented in this encounter Care Teams Website Developer Relationship Specialty Start Date End Date Mikala Best APRN, PMO LEAD PCP - General 07/16/10 02/11/12 [address] [address] [place] [address] documented as of this encounter
--- OUTSIDE RECORDS SUMMARY | 2022-03-23 17:38 | XMS_ITS | Encounter Summary ---
:1980 Author Organization [facility] Address [address] [address] Care Team Providers Name Role Phone Mikala Best APRN, CNP Primary Care Provider [phone] Reason for Visit Reason Comments Other Encounter Details Date Type Department Care Team Description 09/17/2004 Telephone Mara Ness, Other Obstetrics/Gynecolog y [place] [id number] [facility] [address] [address] [address] [place], [place] [id number] (Wo rk) Social History Tobacco Use Types Packs/Day Years Used Date Smoking Tobacco: Never Assessed Sex Assigned at Date Recorded Not on file documented as of this encounter Progress Notes Luz Marina Ma - 09/17/2004 10:14 AM CDT Phone Note filed by Luz Marina Ma at 07/30/101838 Author: Luz Marina Ma Service: (none) Author Type: (none) Filed: 07/30/101838 Note Time: 09/17/04 1014 Status: Signed Front Counter Clerk: Guanako Mendoza Pt. calling to schedule a NOB visit. LMP 08/22/04. EDC 05/28/05. This is her first baby. Explained the rotation of providers, that she will get papers in the mail regarding health hx. that she will need to bring with her to her first appt., explained about the first appt. States she is already on vitamins with folic acid. She understands she should purchasbooke book What to expect when you're expecting. Advised that the only medication she can safely take without checking with a provider is Tylenol. Advised her that she should call us if she has any questions or concerns and that there is somebody available 24 hours a day to talk to. Call transferred to the call center to schedule the NOB. Created on 17Sep2004 10:14am by LUZ MARINA MA R On 17Sep2004 12:52pm AMRA CORREA wrote: Noted Acknowledged by MARA CORREA on 12:52pm PIPELINE OPERATOR documented in this encounter Plan of Treatment Not on filedocumented as of this encounter Visit Diagnoses Not on filedocumented in this encounter Care Teams Recycling Assistant Relationship Specialty Start Date End Date Mikala Best APRN, PAROLE DIRECTOR PCP - General 07/16/10 02/11/12 [address] [id number] documented as of this encounter
--- OUTSIDE RECORDS SUMMARY | 2022-03-23 17:38 | XMS_ITS | Clinical Summary ---
:1980 Author Organization [facility] [place] [address] Care Team Providers Name Role Phone Ghanshyam G[facility] - Primary Care Provider [phone] Allergies Active Allergy Reactions Severity Noted Date Comments Zolpidem Tartrate *Unknown 06/11/2011 blacks ou t Medications Medication Sig Dispensed Refills Start Date End Date Status cephalexin (KEFLEX) 500 Take 1 capsule 0 02/28/2014 Active mg capsule by mouth 2 times daily. Begin day after surgery and take until gone. ondansetron (ZOFRAN ODT) Place 1 tablet 8 tablet 0 02/28/2014 Active 8 mg disintegrating on the tongue tablet every 6 hours if needed for Nausea/Vomiting. cyclobenzaprine Take 1 tablet by 21 tablet 0 02/28/2014 Active (FLEXERIL) 10 mg tablet mouth 3 times daily if needed for Muscle Spasm. Active Problems Not on file Immunizations Name Administration Dates Next Due Influenza, IIV3 (Age >=3 years) 01/26/2011 Social History Tobacco Use Types Packs/Day Years Used Date Smoking Tobacco: Never Smokeless Tobacco: Never Alcohol Use Standard Drinks/Week Comments Yes 0 (1 standard drink = 0.6 oz pure alcoho l) rare, maybe one drink a week Sex Assigned at Date Recorded Not on file Obstetrics History Last Filed Vital Signs Vital Sign Reading Time Taken Comments Blood Pressure 113/73 02/28/2014 12:10 PM OPERATIONS AND MAINTENANCE SPECIALIST Pulse 75 02/28/2014 12:10 PM OPERATIONS AND MAINTENANCE SPECIALIST Temperature 36.5 ??C (97.7 ??F) 02/28/2014 10:54 AM OPERATIONS AND MAINTENANCE SPECIALIST Respiratory Rate 14 02/28/2014 12:10 PM OPERATIONS AND MAINTENANCE SPECIALIST Oxygen Saturation 99% 02/28/2014 12:10 PM OPERATIONS AND MAINTENANCE SPECIALIST Inhaled Oxygen Concentration - - Weight 84.4 kg (186 lb) 02/23/2014 11:03 AM OPERATIONS AND MAINTENANCE SPECIALIST Height 166.4 cm (5' 5.5) 02/23/2014 11:03 AM OPERATIONS AND MAINTENANCE SPECIALIST Body Mass Index 30.48 02/23/2014 11:03 AM OPERATIONS AND MAINTENANCE SPECIALIST Plan of Treatment Health Maintenance Due Date Last Done Comments COVID-19 vaccine series (#1) 1978 Tdap 1989 Depression screening for age 12+ 1990 HIV for age 15-65 1993 BMI (ht and wt on same day) for age 18+ 1996 Hepatitis C screening for age 18-79 1996 Tetanus booster 1998 Pap test for age 21-65 1999 Influenza for age 9-49 12/13/2021 01/26/2011 Medical Devices Implanted Type Area Escapement Maker Device Shelf Model / Identifier Expiration Serial / Lot Date Disc Sc [id number] Cerv [id number] - [id number] Spine SOFAMOR [id number] [id number] / Implanted: Qty: 1 on 06/17/2011 at [facility] / [id number] [employer] Silicone Breast Implant Smooth Round Midrange Profile - [id number] Left: 09/11/2018 15-265 [employer]RE[employer] E SILICONE BREAST IMPLANT SMOOTH ROUND MIDRANGE PROFILE / Implanted: Qty: 1 on 02/28/2014 by Sharon herring, Kar Sanchez MD at [facility] Breast [id number] / [id number] Results Not on filefrom Last 3 Months Insurance Payer Benefit Plan / Subscriber ID Effective Dates Phone Addre ss Type Group [place] [id number] 2011-Present C/O PBA, [facility]/ [address] [place] [address] Advance Directives Latest Code Status on File Code Status Date Activated Date Inactivated Comments Full Code 02/28/2014 10:31 AM 02/28/2014 2:43 PM Code Status History Code Status Date Activated Date Inactivated Comments Full Code 06/17/2011 5:51 AM 06/18/2011 8:24 PM Care Teams Network Strategist Relationship Specialty Start Date End Date [facility] - General 05/31/[address] [place] [address]
--- OUTSIDE RECORDS SUMMARY | 2022-03-23 17:38 | XMS_ITS | Encounter Summary ---
:1980 Author Organization [facility] Address [address] [place] [address] Care Team Providers Name Role Phone Mikala Best APRN, CNP Primary Care Provider [phone] Encounter Details Date Type Department Care Team Description 01/08/2005 PN Conversion Only [address] [address] [place] [address] Social History Tobacco Use Types Packs/Day Years Used Date Smoking Tobacco: Never Assessed Sex Assigned at Date Recorded Not on file documented as of this encounter Plan of Treatment Not on filedocumented as of this encounter Visit Diagnoses Not on filedocumented in this encounter Care Teams Vice President Lending Relationship Specialty Start Date End Date Mikala Best APRN, CNP PCP - General 07/16/10 02/11/12 [address] [address] [id number] documented as of this encounter
--- OUTSIDE RECORDS SUMMARY | 2022-03-23 17:38 | XMS_ITS | Continuity of Care Document ---
:1980 Author Organization [facility] Care Team Providers Name Role Phone DOD-CT Unavailable Unavailable Problems Combined list of problems from Department of Defense and Veterans Affairs facilities. It does not include entries that were removed or entered in error. 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 It does not include entries that were removed or entered in error. Substance Category Reaction Severity Reaction Status Date Comments S ource type Reported AMBIEN Drug Unknown Drug active ALLAN Kumar (ZOLPIDEM allergy allergy 9 [address] o [address]) [place] [address] zolpidem Propensity Unknown Propensity Active Ambulatory to adverse to adverse 9 Ph armacy reactions reactions to to substance substance Immunizations Combined list of available immunizations from the Department of Defense and Veterans Affairs facilities. Immunization Series Date Administered Site Reaction Lot CVX Drug St atus Comments Source Given By Number Code Sap Basis typhoid Vi [id number] 101 sanofi complet typ hoid Vi capsular polysaccharide vac Ambulat capsular 2021 pasteur ed 04/21/21 or y polysaccharid Given Pharmac e vac y influenza, [id number] 141 complet infl uenza, seasonal, injectable Ambulat seasonal, 2020 ed 01/22/21 o ry injectable Given Pha rmac y COVID Vaccine L20A 207 complet C OVID Vaccine ? Moderna Ambulat ? Moderna 2020 ed 06/01/20 or y Given Pharmac y COVID Vaccine L20A 207 complet C OVID Vaccine ? Moderna Ambulat ? Moderna 2020 ed 05/07/20 or y Given Pharmac y meningococcal [id number] 114 sanofi complet meningococcal A,C,Y,W-135 (MCV4P) Ambulat A,C,Y,W-135 2019 pasteur ed ory (MCV4P) Given Pharma c y tetanus-dipht [id number] 09 sanofi complet t etanus-diphth toxoids (Td) adult/adol Ambulat h toxoids 2019 pasteur ed 03/26/20 ory (Td) Given Pharmac adult/adol y influenza, [id number] 141 Seqirus complet inf luenza, seasonal, injectable Ambulat seasonal, 2019 ed 12/27/19 or y injectable Given Pha rmac y typhoid Vi [id number] 101 sanofi complet typ hoid Vi capsular polysaccharide vac Ambulat capsular 2018 pasteur ed 03/27/19 ory polysaccharid Given Pharmac e vac y typhoid Vi 10 [id number] 101 Sanofi complet typ hoid DoD capsular 2018 Pasteur ([facility]) ed Vi polysaccharid capsul ar e vaccine polysacch aride vaccine influenza, [id number] 158 sanofi complet inf luenza, injectable, quadrivalent Ambulat injectable, 2018 pasteur ed 9 ory quadrivalent Given P harmac y influenza, 1 01/01/ [id number] 158 Sanofi complet inf luenza DoD injectable, 2018 Pasteur ([facility]) ed , quadrivalent, inject abl contains e, preservative quadriv al ent, contains preservat sidra influenza, [id number] 158 sanofi complet inf luenza, injectable, quadrivalent Ambulat injectable, 2017 pasteur ed 12/20/17 ory quadrivalent Given P harmac y influenza, 1 12/20/ [id number] 158 Sanofi complet inf luenza DoD injectable, 2017 Pasteur ([facility]) ed , quadrivalent, inject abl contains e, preservative quadriv al ent, contains preservat sidra influenza, F3B 158 GlaxoSmithKli comple t influenza, injectable, quadrivalent Ambulat injectable, 2016 ne ed 03/23/17 ory quadrivalent Given P harmac y typhoid Vi [id number] 101 sanofi complet typ hoid Vi capsular polysaccharide vac Ambulat capsular 2017 pasteur ed 03/23/17 ory polysaccharid Given Pharmac e vac y typhoid Vi 9 [id number] 101 Sanofi complet typ hoid DoD capsular 2017 Pasteur ([facility]) ed Vi polysaccharid capsul ar e vaccine polysacch aride vaccine influenza, 19 F3B 158 SmithKline complet i nfluenza DoD injectable, 2016 (SKB) ed , quadrivalent, inject abl contains e, preservative quadriv al ent, contains preservat sidra anthrax 09/01/ [id number] 24 Emergent complet anth rax vaccine Ambulat vaccine 2017 Biosolutions ed ory Given Pharmac y anthrax 6 09/01/ [id number] 24 Emergent complet anth rax DoD vaccine 2017 BioDefense ed vaccine Operations [place] ([facility]) influenza, 359MH 150 GlaxoSmithKli comple t influenza, injectable, quadrivalent-pf Ambulat injectable, 2015 ne ed 01/21/16 ory quadrivalent- Given Pharmac pf y Influenza, 1 359MH 150 SmithKline complet I nfluenza DoD injectable, 2015 (SKB) ed , quadrivalent, inject abl preservative e, free quadrival ent, preservat sidra free meningococcal 03/25/ [id number] 114 sanofi complet meningococcal A,C,Y,W-135 (MCV4P) Ambulat A,C,Y,W-135 2014 pasteur ed ory (MCV4P) Given Pharma c y meningococcal 3 03/25/ [id number] 114 Sanofi complet meningoco DoD polysaccharid 2014 Pasteur ([facility]) ed ccal e (groups A, polysac ch C, Y and aride W-135) (groups diphtheria A, C, Y toxoid and conjugate W-135) vaccine diphtheri (MCV4P) a toxoid conjugate vaccine (MCV4P) influenza, 01/01/ [id number] 140 CSL Behring complet influenza, seasonal, injectable-pf Ambulat seasonal, 2014 ed 01/01/15 or y injectable-pf Given Pharmac y typhoid Vi 01/01/ H4373-1 101 sanofi complet typ hoid Vi capsular polysaccharide vac Ambulat capsular 2014 pasteur ed 01/01/15 o ry polysaccharid Given Pharmac e vac y typhoid Vi 8 01/01/ F0008-7 101 Sanofi complet typ hoid DoD capsular 2014 Pasteur ([facility]) ed Vi polysaccharid capsul ar e vaccine polysacch aride vaccine Influenza, 17 01/01/ [id number] 140 CSL complet Influ rylan DoD , 2014 Biotherapies, ed , injectable, Inc. ([facility]) sea fco, preservative injecta bl free e, preservat sidra free influenza, 01/31/ TRANSCR 140 Unknown complet in fluenza, seasonal, injectable-pf Ambulat seasonal, 2013 IBED ed 01/31/14 o ry injectable-pf Given Pharmac y Influenza, 1 Unknown (UNK) comple t Influenza DoD seasonal, 2013 ed , injectable, seasonal , preservative injecta bl free e, preservat sidra free anthrax 01/01/ CRF774Q 24 Emergent complet anth rax vaccine Ambulat vaccine 2014 Biosolutions ed ory Given Pharmac y anthrax 5 01/01/ [id number] 24 Emergent complet anth rax DoD vaccine 2014 BioDefense ed vaccine Operations [place] ([facility]) anthrax 06/26/ [id number] 24 Emergent complet anth rax vaccine Ambulat vaccine 2014 Biosolutions ed ory Given Pharmac y anthrax 4 06/26/ LCT870T 24 Emergent complet anth rax DoD vaccine [facility] [place] ([facility]) measles/mumps 05/08/ [id number] 03 Merck & complet measles/mumps/rubella virus vaccine Ambulat /rubella 2014 Company Inc ed ory virus vaccine Given Pharmac y measles, 2 05/08/ [id number] 03 Merck (MSD) complet measles, DoD mumps and 2014 ed mumps and rubella virus rubell a vaccine virus vaccine influenza, TRANSCR 141 complet infl uenza, seasonal, injectable Ambulat , 2012 IBED ed 01/15/13 or y injectable Given Pha rmac y Influenza, 1 Transcribed complet Influenza DoD seasonal, 2012 (TRS) ed , injectable seasonal, injectabl e yellow fever 12/24/ [id number] 37 sanofi complet y ellow fever vaccine Ambulat vaccine 2012 pasteur ed 12/24/12 or y Given Pharmac y typhoid Vi 09/12/ X8547-8 101 sanofi complet typ hoid Vi capsular polysaccharide vac Ambulat capsular 2012 pasteur ed 12/24/12 o ry polysaccharid Given Pharmac e vac y yellow fever 1 12/24/ [id number] 37 Sanofi complet y ellow DoD vaccine 2012 Pasteur (PMC) ed feve r vaccine typhoid Vi 1 12/24/ U7939-6 101 Sanofi complet typ hoid DoD capsular 2012 Pasteur (PMC) ed Vi polysaccharid capsul ar e vaccine polysacch aride vaccine influenza, 01/25/ A77005 140 CSL [place] complet influenza, seasonal, injectable-pf Ambulat seasonal, 2011 ed 01/26/12 o ry injectable-pf Given Pharmac y Influenza, 1 H27436 140 CSL complet Influ rylan DoD , 2011 Biotherapies, ed , injectable, Inc. ([facility]) sea fco, preservative injecta bl free e, preservat sidra free influenza, 03/23/ [id number] 141 sanofi complet inf luenza, seasonal, injectable Ambulat seasonal, 2010 pasteur ed 03/23/11 ory injectable Given Pha rmac y Influenza, 1 03/23/ [id number] 141 Sanofi complet Inf luenza DoD seasonal, 2010 Pasteur (PMC) ed , injectable seasonal, injectabl e typhoid Vi W7510-1 101 sanofi complet typ hoid Vi capsular polysaccharide vac Ambulat capsular 2009 pasteur ed 03/23/10 ory polysaccharid Given Pharmac e vac y typhoid Vi 1 T5813-4 101 Sanofi complet typ hoid DoD capsular 2009 Pasteur (PMC) ed Vi polysaccharid capsul ar e vaccine polysacch aride vaccine meningococcal 03/03/ [id number] 114 sanofi complet meningococcal A,C,Y,W-135 (MCV4P) Ambulat A,C,Y,W-135 2009 pasteur ed ory (MCV4P) Given Pharma c y tuberculin 03/03/ [id number] 96 sanofi complet tub erculin purified protein derivative Ambulat purified 2009 pasteur ed 03/03/10 ory protein Given Pharma c derivative y tetanus, 03/03/ [id number] 115 sanofi complet tetan us, diphtheria, acellular pertussis Ambulat diphtheria, 2009 pasteur ed ory acellular Given Phar mac pertu is y influenza 03/03/ [id number] 15 sanofi complet infl uenza virus vaccine,split Ambulat virus 2009 pasteur ed 03/03/10 ory vaccine,split Given Pharmac y influenza 1 [id number] 15 Sanofi complet infl uenza DoD virus 2009 Pasteur (PMC) ed virus vaccine, vaccine, split virus split (incl. virus purified (incl. surface purified antigen)-reti surfac e red CODE antigen)- retired CODE meningococcal 1 [id number] 114 Sanofi complet meningoco DoD polysaccharid 2009 Pasteur ([facility]) ed ccal e (groups A, polysac ch C, Y and aride W-135) (groups diphtheria A, C, Y toxoid and conjugate W-135) vaccine diphtheri (MCV4P) a toxoid conjugate vaccine (MCV4P) tetanus 1 [id number] 115 Sanofi complet tetanu s DoD toxoid, 2009 Pasteur ([facility]) ed toxo id, reduced reduced diphtheria diphtheri toxoid, and a toxoid , acellular and pertu is acellular vaccine, pertussis adsorbed vaccine, adsorbed anthrax 07/29/ NCX238 24 Emergent complet anthr ax vaccine Ambulat vaccine 2009 Biosolutions ed ory Given Pharmac y anthrax 3 07/29/ IBC028 24 Emergent complet anthr ax DoD vaccine 2009 BioDefense ed vaccine [employer] [place] ([facility]) influenza [id number] 111 [employer] Inc compl et influenza virus vaccine, live Ambulat virus 2008 ed 03/04/09 ory vaccine, live Given Pharmac y influenza 1 [id number] 111 MedImmune, complet influenza DoD virus 2008 Inc. (MED) ed virus vaccine, vaccine, live, live, attenuated, attenuat e for d, for intranasal intranasa use l use Novel 3P 127 Novartis complet Novel [id number], injectable Ambulat influenza-H1N 2009 [place] Pharmaceutica ed 01/21/09 ory 1-, ls Given Pharmac injectable y Novel 1 3P 127 Novartis complet Novel DoD influenza-H1N 2009 [place] Pharmaceutica ed influenza -, l Queta. (NOV) -H1N1- , injectable injectabl e hepatitis B 06/21/ AHBVB59 43 GlaxoSmithKli com plet hepatitis B adult vaccine Ambulat adult vaccine 2008 6CA ne ed 10/02/0 9 ory Given Pharmac y tetanus, [id number] 115 sanofi complet tetan us, diphtheria, acellular pertussis Ambulat diphtheria, 2008 pasteur ed 0 9 ory acellular Given Phar mac pertu is y hepatitis B 3 10/02/ AHBVB59 43 [facility] hepatitis DoD vaccine, 2008 6CA (SKB) ed B adult dosage vaccine , adult dosage tetanus 1 [id number] 115 Sanofi complet tetanu s DoD toxoid, 2008 Pasteur (PMC) ed toxo id, reduced reduced diphtheria diphtheri toxoid, and a toxoid , acellular and pertu is acellular vaccine, pertussis adsorbed vaccine, adsorbed anthrax 03/03/ QCC962 24 Emergent complet anthr ax vaccine Ambulat vaccine 2008 Biosolutions ed 03/03 ory Given Pharmac y anthrax 2 03/03/ ZBN895 24 Emergent complet anthr ax DoD vaccine 2007 BioDefense ed vaccine Operations [place] ([facility]) hepatitis B 02/08/ AHBVB64 43 GlaxoSmithKli com plet hepatitis B adult vaccine Ambulat adult vaccine 2007 0AA ne ed ory Given Pharmac y hepatitis B 2 02/08/ AHBVB64 43 [facility] hepatitis DoD vaccine, 2007 0AA (SKB) ed B adult dosage vaccine , adult dosage typhoid AO923 41 sanofi complet typhoid vaccine, parenteral Ambulat vaccine, 2007 pasteur ed 02/06/08 ory parenteral Given Pha rmac y anthrax 02/05/ QZX111 24 Emergent complet anthr ax vaccine Ambulat vaccine 2008 Biosolutions ed 02/05 ory Given Pharmac y anthrax 1 02/05/ OEB196 24 Emergent complet anthr ax DoD vaccine 2008 [facility] ed vaccine Operations [place] ([facility]) typhoid 0 02/05/ AO923 41 Sanofi complet typhoid DoD vaccine, 2007 Pasteur ([facility]) ed vac cine, parenteral, parenter a other than l, other acetone-kille than d, dried acetone-k illed, dried influenza [id number] 111 Medimmune Inc compl et influenza virus vaccine, live Ambulat virus 2007 ed 01/01/08 ory vaccine, live Given Pharmac y hepatitis B AHBVB52 43 GlaxoSmithKli com plet hepatitis B adult vaccine Ambulat adult vaccine 2007 5AB ne ed 8 ory Given Pharmac y hepatitis B 1 AHBVB52 43 SmithKline comple t hepatitis DoD vaccine, 2007 5AB (SKB) ed B adult dosage vaccine , adult dosage influenza 1 [id number] 111 MedImmune, complet influenza DoD virus 2007 Inc. (MED) ed virus vaccine, vaccine, live, live, attenuated, attenuat e for d, for intranasal intranasa use l use influenza 03/28/ [id number] 111 Medimmune Inc compl et influenza virus vaccine, live Ambulat virus 2006 ed 03/28/07 ory vaccine, live Given Pharmac y influenza 1 [id number] 111 MedImmune, complet influenza DoD virus 2006 Inc. (MED) ed virus vaccine, vaccine, live, live, attenuated, attenuat e for d, for intranasal intranasa use l use influenza [id number] 15 sanofi complet infl uenza virus vaccine,split Ambulat virus 2005 pasteur ed 03/23/06 ory vaccine,split Given Pharmac y influenza 1 [id number] 15 Sanofi complet infl uenza DoD virus 2005 Pasteur ([facility]) ed virus vaccine, vaccine, split virus split (incl. virus purified (incl. surface purified antigen)-reti surfac e red CODE antigen)- retired CODE typhoid P1261-3 41 sanofi complet typhoi d vaccine, parenteral Ambulat vaccine, 2005 pasteur ed 01/26/06 ory parenteral Given Pha rmac y varicella 0 () Not varicella DoD virus vaccine 2005 Given virus vaccine typhoid 1 S7043-9 41 Sanofi complet typhoi d DoD vaccine, 2005 Pasteur ([facility]) ed vac cine, parenteral, parenter a other than l, other acetone-kille than d, dried acetone-k illed, dried influenza [id number] 15 sanofi complet infl uenza virus vaccine,split Ambulat virus 2004 pasteur ed 03/02/05 ory vaccine,split Given Pharmac y influenza 1 [id number] 15 Sanofi complet infl uenza DoD virus 2004 Pasteur (PMC) ed virus vaccine, vaccine, split virus split (incl. virus purified (incl. surface purified antigen)-reti surfac e red CODE antigen)- retired CODE typhoid X0481 41 sanofi complet typhoid vaccine, parenteral Ambulat vaccine, 2003 pasteur ed 01/25/04 ory parenteral Given Pha rmac y typhoid 0 X0481 41 Sanofi complet typhoid DoD vaccine, 2003 Pasteur (PMC) ed vac cine, parenteral, parenter a other than l, other acetone-kille than d, dried acetone-k illed, dried influenza 02/16/ [id number] 16 sanofi complet infl uenza virus vaccine, whole virus Ambulat virus 2002 pasteur ed 02/16/03 ory vaccine, Given Pharm ac whole virus y influenza 0 02/16/ [id number] 16 Sanofi complet infl uenza DoD virus 2002 Pasteur (PMC) ed virus vaccine, vaccine, whole virus whole virus tuberculin 03/27/ [id number] 96 sanofi complet tub erculin purified protein derivative Ambulat purified 2001 pasteur ed 03/27/02 ory protein Given Pharma c derivative y influenza 03/27/ [id number] 16 sanofi complet infl uenza virus vaccine, whole virus Ambulat virus 2001 pasteur ed 03/27/02 ory vaccine, Given Pharm ac whole virus y influenza 0 03/27/ [id number] 16 Sanofi complet infl uenza DoD virus 2001 Pasteur (PMC) ed virus vaccine, vaccine, whole virus whole virus typhoid Vi 05/02/ PF301-9 101 sanofi complet typ hoid Vi capsular polysaccharide vac Ambulat capsular 2001 pasteur ed 05/02/01 o ry polysaccharid Given Pharmac e vac y typhoid Vi 0 05/02/ QC133-4 101 Sanofi complet typ hoid DoD capsular 2001 Pasteur (PMC) ed Vi polysaccharid capsul ar e vaccine polysacch aride vaccine influenza 02/28/ [id number] 16 sanofi complet infl uenza virus vaccine, whole virus Ambulat virus 2000 pasteur ed 02/28/01 ory vaccine, Given Pharm ac whole virus y influenza 0 02/28/ [id number] 16 Sanofi complet infl uenza DoD virus 2000 Pasteur (PMC) ed virus vaccine, vaccine, whole virus whole virus influenza [id number] 16 Unknown complet inf luenza virus vaccine, whole virus Ambulat virus 1999 A ed 03/23/00 ory vaccine, Given Pharm ac whole virus y influenza 0 [id number] 16 Other (OTH) complet influenza DoD virus 1999 A ed virus vaccine, vaccine, whole virus whole virus yellow fever 0 37 sanofi complet y ellow fever vaccine Ambulat vaccine 1999 pasteur ed 04/28/99 or y Given Pharmac y typhoid 234 41 sanofi complet typhoid vaccine, parenteral Ambulat vaccine, 1999 pasteur ed 04/28/99 o ry parenteral Given Pha rmac y yellow fever 0 0 37 Sanofi complet y ellow DoD vaccine 1999 Pasteur ([facility]) ed feve r vaccine typhoid 0 234 41 Sanofi complet typhoid DoD vaccine, 1999 Pasteur ([facility]) ed vac cine, parenteral, parenter a other than l, other acetone-kille than d, dried acetone-k illed, dried hepatitis A 52 Merck & complet hep atitis A adult vaccine Ambulat adult vaccine 1998 Company Locu ed 03/04/99 ory Given Pharmac y hepatitis A 2 52 Merck (MSD) complet hepatitis DoD vaccine, 1998 ed A adult dosage vaccine , adult dosage influenza 35AA 16 [place] complet i nfluenza virus vaccine, whole virus Ambulat virus 1998 Labs ed 01/28/99 ory vaccine, Given Pharm ac whole virus y influenza 0 35AA 16 [place] complet i nfluenza DoD virus 1998 (CON) ed virus vaccine, vaccine, whole virus whole virus poliovirus 796B 02 [place] complet myrna ovirus vaccine, live, oral Ambulat vaccine, 1998 Laboratories ed 09/01 ory live, oral Given Pha rmac y hepatitis A 52 Merck & complet hep atitis A adult vaccine Ambulat adult vaccine 1998 [place] SA ed 09/01/98 ory Given Pharmac y trivalent 0 796B 02 [place] (LED) complet trivalent DoD poliovirus 1998 ed polioviru vaccine, s live, oral vaccine, live, oral hepatitis A 1 52 Merck (MSD) complet hepatitis DoD vaccine, 1998 ed A adult dosage vaccine , adult dosage tuberculin 211 96 [place] complet t uberculin purified protein derivative Ambulat purified 1998 Labs ed 08/25/98 ory protein Given Pharma c derivative y meningococcal [id number] 32 [place] compl et meningococcal polysaccharide (MPSV4) Ambulat polysaccharid 1998 Labs ed 9 ory e (MPSV4) Given Phar mac y influenza 88240 16 [place] complet influ rylan virus vaccine, whole virus Ambulat virus 1998 Laboratories ed 08/25/98 ory vaccine, Given Pharm ac whole virus y tetanus-dipht 09 [place] compl et tetanus-diphth toxoids (Td) adult/adol Ambulat h toxoids 1998 Labs ed 08/25/98 or y (Td) Given Pharmac adult/adol y tetanus and 0 09 [place] complet tetanus DoD diphtheria 1998 (CON) ed and toxoids, diphtheri adsorbed, a preservative toxoids , free, for adsorbed, adult use (2 preserv at Lf of tetanus sidra fr ee, toxoid and 2 for ruben lt Lf of use (2 Lf diphtheria of toxoid) tetanus toxoid and 2 Lf of diphtheri a toxoid) influenza 0 [address]240 16 [place]-Ayerst comple t influenza DoD virus 1998 (WAL) ed virus vaccine, vaccine, whole virus whole virus meningococcal 0 983430 32 [place] compl et meningoco DoD polysaccharid 1998 (CON) ed ccal e vaccine polysacch (MPSV4) aride vaccine (MPSV4) measles/mumps Unknown complet m easles/mumps/rubella virus vaccine Ambulat /rubella 1998 ed 08/12/98 ory virus vaccine Given Pharmac y measles, 0 Unknown (UNK) complet measles, DoD mumps and 1998 ed mumps and rubella virus rubell a vaccine virus vaccine poliovirus 796B 02 [place] complet myrna ovirus vaccine, live, oral Ambulat vaccine, 1994 Laboratories ed 09/01 ory live, oral Given Pha rmac y trivalent 0 97B 02 [place] (LED) complet trivalent DoD poliovirus 1994 ed polioviru vaccine, s live, oral vaccine, live, oral Results Combined list of recent chemistry, hematology and other laboratory results from [facility] and [facility], ranging from 15 months to all on record, depending upon the facility. Order Results Value Reference Date Interpretation Specimen Commen ts Source Name Range Post DoD Serum RECEIVED 03/24 Performed by: SERUM Perform ed 88 [employer] /2020 Epidemiology by: [facility] Epidemiolog Terrance milian Specimen Service y [facility] Laboratory Bldg [address] [address] [place] [address] [facility] [id number] [place] [id number] Vital Signs Combined list of inpatient and outpatient Vital Signs from [facility] and [facility], ranging from 12 months to all on record, depending upon the facility. Vital Sign Value Date Comments Source No data available for this section Ambulatory Pharmacy Encounters Combined list of: 1) Encounters from Department of Veterans Affairs facilities going back up to the last 18 months. 2) Encounters from the Department of Defense facilities going back up to 280 months. Location Location Encounter Encounter Reason Attending ADM OR Stat us Disposition Source Details Type Number For Provider Date Date Visit OUTPATIENT [id number] 02/01 Released w /o Theater /2007 Limitations Facilit y OUTPATIENT [id number] Theater 12/13 Released w/o Theater Provider /2016 Limitations Facil it y OUTPATIENT [id number] Theater 12/16 Released w/o Theater Provider /2016 Limitations Facil it y OUTPATIENT [id number] Theater 01/21 Released w/o Theater Provider /2016 Limitations Facil it y OUTPATIENT [id number] Theater 02/03 Released w/o Theater Provider /2017 Limitations Facil it y [facility]PAT[facility] [id number] [facility]o ALLAN Kumar Limitations [place] [address](A FNG 133 Med Sq-FM) OUTPATIENT [id number] Notes TIMP, 10/03 Released w /o ALLAN Kumar Entered Limitations Anto nio by: Graciela Lorenzo R Treatme 22 John nt 2018 Facilit [address] [place], [place] ------- [address](A ------- FNG 133 ------- Med ------- Sq-FM) -- [facility] Outpatient [id number] PAAL,REUBEN 06/29 [place] Encounter [id number] [facility] [id number] PAAL,REUBEN 07/06 [place] Encounter [id number] [facility] History [id number] 07/19 07/19 [place] [address] /2021 Facilit y Access Lifetime [id number] 07/19 Amb[facility] t Pharmacy [facility] ory Pharmac y Procedures Combined list of: 1) Procedures from Department of Veterans Affairs facilities going back up to the last 18 months, not all CT non-surgical procedures are included; 2) All procedures from the Department of Defense facilities. Procedure Procedure Type Code Date Perfomer Comments Sourc e No data Ambulatory available for Pharma cy this section FITTING OF 08/13/2002 DoD SPECTACLES, EXCEPT FOR APHAKIA; MONOFOCAL Social History Combined list of available smoking, tobacco, and other social history from [facility] facilities. Social History Type Response Date Comment Source This section is an empty social history section. DoD Assessment and Plan Combined list of future care activities from Department of Defense and Veterans Affairs facilities (e.g., assessment and plan notes, appointments, orders, and referrals). Additional future care activities may be listed in the Plan of Care section. Result Assessment and Plan Date Source Assessment and Plan No data available for this 03/23/2022 A mbulatory Pharmacy section Functional Status Combined list of recent functional and cognitive assessments recorded at [facility] of Defense and [facility] ([place]).[facility] Functional [place] Measurement (FIM) Scale: 1 = Total Assistance (Subject = 0% +), 2 = Maximal Assistance (Subject = 25% +), 3 = Moderate Assistance (Subject = 50% +), 4 = Mi nimal Assistance (Subject = 75% +), 5 = Supervision, 6 = Modified [place] (Device), 7 = Complete [place] (Timely, Safely). Assessment Source Assessment Type Assessment Assessment Assessmen t Date/Time Skill Score Details No data available for this section
--- OUTSIDE RECORDS SUMMARY | 2022-03-23 17:38 | XMS_ITS | Encounter Summary ---
:1980 Author Organization [facility] Address [address] [place] [address] Care Team Providers Name Role Phone Nasir Mikala URBINA CNP Primary Care Provider [phone] Encounter Details Date Type Department Care Team Description 10/16/2004 PN Conversion Only [facility] CON[facility]SIO N Jessica Gimenez [address] [facility] [place] [address] [address] [place] [address] (Wo rk) Social History Tobacco Use Types Packs/Day Years Used Date Smoking Tobacco: Never Assessed Sex Assigned at Date Recorded Not on file documented as of this encounter Plan of Treatment Not on filedocumented as of this encounter Procedures Procedure Name Priority Date/Time Associated Diagnosis Comme nts BLOOD GROUP & RH Routine 10/16/2004 3:59 PM Resul ts for this (BLOOD TYPE) CDT procedure are i n the results section. ANTIBODY SCREEN Routine 10/16/2004 3:59 PM Result s for this CDT procedure are i n the results section. HIV ANTIBODY Routine 10/16/2004 3:59 PM Results f or this CDT procedure are i n the results section. RPR BLOOD Routine 10/16/2004 3:59 PM Results f or this CDT procedure are i n the results section. RUBELLA IMMUNE Routine 10/16/2004 3:59 PM Results for this STATUS CDT procedure are i n the results section. HEP B SURFACE Routine 10/16/2004 3:59 PM Results for this ANTIGEN, NO REFLEX CDT procedure are in the results section. URINE CULTURE Routine 10/16/2004 3:59 PM Results for this CDT procedure are i n the results section. COMPLETE BLOOD Routine 10/16/2004 3:59 PM Results for this COUNT-NO DIFF CDT procedure are in the results section. documented in this encounter Results Antibody Screen (10/16/2004 3:59 PM CDT) P athologist Signature N/O BB NEG No normal HP CONVERSION ANTIBODY range SCREEN Comment: Performed by Solid Phase Techni que Specimen (Source) Anatomical Collection Method Collection Time Re ceived Time Location / / Volume Laterality 10/16/2004 3:59 PM CDT Jessica Gimenez APRN, CNP PN BLOOD BANK ORDERS Performing Organization Address City/State/ZIP Code Phon e Number HP CONVERSION Complete Blood Count-No Diff (10/16/2004 3:59 PM CDT) athologist Signature White Blood Cell 8.8 3.8 - 11.0 HP CONVERSIO N Count K/cmm Red Blood Cell 4.47 3.70 - HP CONVERSION Count 5.20 m/cmm Hemoglobin 13.9 11.8 - HP CONVERSION 15.5 gm/dL Hematocrit 39.4 35.0 - HP CONVERSION 46.0 % Mean Corpuscular 88.1 80.0 - HP CONVERSION Volume 100.0 fl Mean Corpuscular 31.1 27.0 - HP CONVERSION Hemoglobin 34.0 pg Mean Corpuscular 35.3 32.0 - HP CONVERSION Hemoglobin Conc 36.5 gm/dL [place] RDW 12.8 11.0 - HP CONVERSION 15.0 % Platelet Count 254 140 - 450 HP CONVERSION k/cmm Specimen (Source) Anatomical Collection Method Collection Time Re ceived Time Location / / Volume Laterality 10/16/2004 3:59 PM CDT Jessica Gimenez APRN, CNP LAB_1 Performing Organization Address City/State/ZIP Code Phon e Number HP CONVERSION Blood Group & Rh (Blood Type) (10/16/2004 3:59 PM CDT) athologist Signature BB BLOOD TYPE O POS No normal HP CONVERSION (BLOOD GROUP & range RH) Specimen (Source) Anatomical Collection Method Collection Time Re ceived Time Location / / Volume Laterality 10/16/2004 3:59 PM CDT Jessica Gimenez APRN, CNP PN BLOOD BANK ORDERS Performing Organization Address City/[facility]/ZIP Code Phon e Number HP CONVERSION RPR Blood (10/16/2004 3:59 PM CDT) athologist Signature RPR Non Reac Non Reac HP CONVERSION Specimen (Source) Anatomical Collection Method Collection Time Re ceived Time Location / / Volume Laterality 10/16/2004 3:59 PM CDT Jessica Gimenez APRN, CNP LAB_1 Performing Organization Address City/[facility] Code Phon e Number HP CONVERSION Rubella Immune Status (10/16/2004 3:59 PM CDT) athologist Signature Rubella Immune Immune Immune HP CONVERSION Status Specimen (Source) Anatomical Collection Method Collection Time Re ceived Time Location / / Volume Laterality 10/16/2004 3:59 PM CDT Jessica Gimenez APRN, CNP LAB_1 Performing Organization Address City/[facility] Code Phon e Number HP CONVERSION Hep B Surface Antigen, No Reflex (10/16/2004 3:59 PM CDT) Analysis Performed At Path logist Time Signature Hep B Surf Ag Negative Negative HP CONVERSION Specimen (Source) Anatomical Collection Method Collection Time Re ceived Time Location / / Volume Laterality 10/16/2004 3:59 PM CDT Jessica Gimenez APRN, CNP LAB_1 Performing Organization Address City/[facility] Code Phon e Number HP CONVERSION HIV Antibody (10/16/2004 3:59 PM CDT) athologist Signature HIV 1/HIV 2 Non Reac Non Reac HP CONVERSION Specimen (Source) Anatomical Collection Method Collection Time Re ceived Time Location / / Volume Laterality 10/16/2004 3:59 PM CDT Jessica Gimenez APRN, CNP LAB_1 Performing Organization Address City/[facility]/ZIP Code Phon e Number HP CONVERSION Urine Culture (10/16/2004 3:59 PM CDT) Analysis Performed At Patho logist Time Signature Urine Culture SEE TEXT HP CONVERSION Comment: Patient: SHAMIR NOLASCO Culture, Urine @ ?Collected: ??[id number] ??[id number] Source: Clean Ca ?Processed: ??[id number] ??[id number] ? 1V Final Report ------ ?[id number] ??[id number] 50-100,000 CFU/mL mixed gram positive or ganisms No further workup @ = URINE CULTURE Performed at ??[address] [place], [place] ?[address] Specimen (Source) Anatomical Collection Method Collection Time Re ceived Time Location / / Volume Laterality 10/16/2004 3:59 PM CDT Jessica Gimenez APRN, CNP LAB_1 Performing Organization Address City/State/ZIP Code Phon e Number HP CONVERSION documented in this encounter Visit Diagnoses Not on filedocumented in this encounter Care Teams Tack Picker Relationship Specialty Start Date End Date Mikala Best APRN, CNP PCP - General 07/16/10 02/11/12 [address] [address] [place] [id number] documented as of this encounter
--- OUTSIDE RECORDS SUMMARY | 2022-03-23 17:38 | XMS_ITS | Encounter Summary ---
:1980 [facility] Address [address] [address] Care Team Providers Name Role Phone Nasir Mikala URBINA, BONITA Primary Care Provider [phone] Reason for Visit Reason Comments Other Encounter Details Date Type Department Care Team Description 03/11/2005 Telephone Allen Tam Oth er Obstetrics/Gynecolog y [address] [facility] [address] [place] [address] [place] [address] [phone] (Wo rk) Social History Tobacco Use Types Packs/Day Years Used Date Smoking Tobacco: Never Assessed Sex Assigned at Date Recorded Not on file documented as of this encounter Progress Notes Trina Santana - 03/11/2005 8:52 AM CST Phone Note filed by Trina Santana RN at 07/30/102234 Author: Trina Santana RN Service: (none) Author Type: Registered Nurse Filed: 07/30/102234 Note Time: 03/11/05851 Status: Signed Seam Finisher: Trina Santana RN (Registered Nurse) Lacey is almost 29 weeks PG. This is her 1st .EDC:05/31/2005.She has a concern and not sure if this could be related to her ? This am she was laying in bed and trying to go back to sleep, when she states she felt her her start to race and then she thought she felt a few skipped beats. She had no chest pain and no SOB. She feels fine now. She can be reached at home:[phone]. If not there, call her cell:[phone]. I told her that if this happened again before she heard from you to go to urgent care. Created on 11Mar2005 8:52am by TRINA SANTANA On 11Mar2005 9:59am ALLEN MAHAJAN wrote: poke with pt. Will observe for now Acknowledged by ALLEN MAHAJAN on 9:59am L CONTAINER MAKER documented in this encounter Plan of Treatment Not on filedocumented as of this encounter Visit Diagnoses Not on filedocumented in this encounter Care Teams Scientific Process Operator Relationship Specialty Start Date End Date Mikala Best APRN, RECORDING STUDIO INTERNSHIP PCP - General 07/16/10 02/11/12 [address] [address] [place] [address] documented as of this encounter
--- OUTSIDE RECORDS SUMMARY | 2022-03-23 17:38 | XMS_ITS | Encounter Summary ---
:1980 Author [facility] Address [address], [place] [address] Care Team Providers Name Role Phone BevGilles alvaradomacario URBINA CNP Primary Care Provider [phone] Encounter Details Date Type Department Care Team Description 06/02/2003 PN Conversion Only [place] [address] [facility] [address] [place], [place] [address] [place] [address] (Wo rk) Social History Tobacco Use Types Packs/Day Years Used Date Smoking Tobacco: Never Assessed Sex Assigned at Date Recorded Not on file documented as of this encounter Plan of Treatment Not on filedocumented as of this encounter Procedures Procedure Name Priority Date/Time Associated Comments Diagnosis ANATOMICAL PATH Routine 06/02/2003 1:44 PM Result s for this LIQUID BASED STRIKE OFF MACHINE OPERATOR procedure are i n the results section. URINALYSIS Routine 06/02/2003 11:00 Results for this ROUTINE(MICRO IF POS) AM STRIKE OFF MACHINE OPERATOR proced ure are in the results section. SEXUALLY TRANSMITTED Routine 06/02/2003 11:00 Res ults for this DISEASE PROBE AM STRIKE OFF MACHINE OPERATOR procedure are in the results section. documented in this encounter Results Pap Smear (06/02/2003 1:44 PM STRIKE OFF MACHINE OPERATOR) [facility] Method Time Signature PAP Smear SEE TEXT No normal HP CONVERSION Liquid Based range Comment: Patient: SHAMIR NOLASCO ? CERVICAL CYTOLOGY REPORT Pathology # ??[id number] ?Date Obtained: ? Date Received: CYTOLOGIC IMPRESSION: Negative for intraepithelial lesion or m alignancy. ? ANDREA TIONAL DATA LMP: ?06-01-03 CLINICAL HIST LIQUID BASED PAP CERVICAL SPECIMEN ADEQUACY: ?? Satisfactory. ENDOCERVICAL CELLS: ??Present. Verified 06/09/03 by: ??KGM ?(electronic signature) Specimen (Source) Anatomical Collection Method Collection Time Re ceived Time Location / / Volume Laterality 06/02/2003 1:44 PM STRIKE OFF MACHINE OPERATOR Yudelka Clemente MD LAB_1 Performing Organization Address City/State/ZIP Code Phon e Number HP CONVERSION Urinalysis Routine(Micro If Pos) (06/02/2003 11:00 AM STRIKE OFF MACHINE OPERATOR) [facility] gist Method Time Signature Glucose, Negative Neg-Trac HP CONVERSION Qualitative U Protein Urine Negative Neg-Trac HP CONVERSION Ketones Negative Negative HP CONVERSION U BILI Negative Negative HP CONVERSION U Specific <=1.005 1.005 - 25 HP CONVERSION [place] Blood Urine Negative Negative HP CONVERSION pH Urine 6.5 4.5 - 7.5 HP CONVERSION Urobilinogen Negative 0.2 - 1.0 HP CONVERSION Urine Nitrite Urine Negative Negative HP CONVERSION Leukocyte Negative Negative HP CONVERSION Esterase Urine Specimen (Source) Anatomical Collection Method Collection Time Re ceived Time Location / / Volume Laterality 06/02/2003 11:00 AM STRIKE OFF MACHINE OPERATOR Yudelka Clemente MD LAB_1 Performing Organization Address [facility] Code Phon e Number HP CONVERSION Sexually Transmitted Disease Probe (06/02/2003 11:00 AM STRIKE OFF MACHINE OPERATOR) [facility] Method Time Signature Sexually SEE TEXT HP CONVERSION Transmitted Disease Probe Comment: Patient: SHAMIR NOLASCO Sexually Trans Disease Probe @ ?Collected: ??[id number] ??[id number] Source: ENDOCERV ?Processed: ??[id number] ??1100 ? 1V Final Report ------ ?[id number] ??[id number] No Chlamydia trachomatis detected by amp lified DNA assay No Neisseria gonorrhoeae detected by amp lified DNA assay @ = Sexually Trans Disease Probe Perform ed at ??[address] [facility] ?[place] [address] Specimen (Source) Anatomical Collection Method Collection Time Re ceived Time Location / / Volume Laterality 06/02/2003 11:00 AM STRIKE OFF MACHINE OPERATOR Yudelka Clemente MD LAB_1 Performing Organization Address City/[facility] Phon e Number HP CONVERSION documented in this encounter Visit Diagnoses Not on filedocumented in this encounter Care Teams Power Distributor Relationship Specialty Start Date End Date Mikala Best, PIPE FITTER SOFT COPPER, ORDER FILLER PCP - General 07/16/10 02/11/12 [address] [place] [address] documented as of this encounter
--- OUTSIDE RECORDS SUMMARY | 2022-03-23 17:38 | XMS_ITS | Encounter Summary ---
:1980 Author Organization [facility] Address [address] [place] [address] Care Team Providers Name Role Phone Mikala Best APRN, CNP Primary Care Provider [phone] Encounter Details Date Type Department Care Team Description 05/01/2005 Routine Jessica Ness Obstetrics/Gynecolog y MCARLITOS, BONITA [address] [place] [address] [phone] [place], [place] [address] (Wo rk) Social History Tobacco Use Types Packs/Day Years Used Date Smoking Tobacco: Never Assessed Sex Assigned at Date Recorded Not on file documented as of this encounter Plan of Treatment Not on filedocumented as of this encounter Visit Diagnoses Not on filedocumented in this encounter Care Teams Senior Pl Sql Developer Relationship Specialty Start Date End Date Mikala Best APRN, CNP PCP - General 07/16/10 02/11/[address] [place] [address] documented as of this encounter
--- OUTSIDE RECORDS SUMMARY | 2022-03-23 17:38 | XMS_ITS | Encounter Summary ---
:1980 [facility] Address [address], [place] [address] Care Team Providers Name Role Phone Mikala Best APRN, CNP Primary Care Provider [phone] Encounter Details Date Type Department Care Team Description 07/10/2004 Office Visit [facility] Mikala Best APRN, [facility] [address] [facility] [address] [place] [address] [place] [address] [phone] (Wo rk) Social History Tobacco Use Types Packs/Day Years Used Date Smoking Tobacco: Never Assessed Sex Assigned at Date Recorded Not on file documented as of this encounter Last Filed Vital Signs Vital Sign Reading Time Taken Comments Blood Pressure 114/74 07/10/2004 4:32 PM WATER HAULER Pulse 74 07/10/2004 4:32 PM WATER HAULER Temperature - - Respiratory Rate 12 07/10/2004 4:32 PM WATER HAULER Oxygen Saturation - - Inhaled Oxygen Concentration - - Weight 71.4 kg (157 lb 6.2 oz) 07/10/2004 4:32 PM C: 71 .4kg WATER HAULER Height 165.7 cm (5' 5.25) 07/10/2004 4:32 PM C: 165.7c m WATER HAULER Body Mass Index 25.99 07/10/2004 4:32 PM WATER HAULER documented in this encounter Progress Notes Mikala Best APRN, CNP - 07/10/2004 12:01 AM CST Progress Notes signed by MEME Santos at 12/03/04 1116 Author: MEME Santos Service: (none) Author Type: (none) Filed: 08/03/10 0416 Note Time: 07/10/042015 Status: Signed Food Cooking Machine Operator: MEME Santos (Nurse Practitioner) NAME: SHAMIR GOTTLIEB MR: [id number] ACCT: [id number] VISIT: [id number] DICTATING CLINICIAN: AARON SANTOS,RN JOB: [id number] CLINIC PROGRESS NOTE DATE OF VISIT: 07/10/2004 SUBJECTIVE: : 1980. This is a 24-year-old female in clinic for routine health maintenance exam. She would like a refill of her Nrqyx-Grv-Vvflwb. She would like a refill of Valtrex, and she is requesting STD testing. PAST MEDICAL HISTORY: Noncontributory. FAMILY HISTORY: No diabetes, hypertension, or cancer. Her mother and a maternal aunt have elevated cholesterol, and 1 or 2 of her grandparents had coronary artery disease when elderly. SOCIAL HISTORY: She is , in the process of getting . She and her have had no children. She is employed in the [employer] . REVIEW OF SYSTEMS: Skin: She occasionally has outbreaks of oral herpes simplex virus, maybe once or twice a year, and likes to use Valtrex with good effect for that. Genitourinary: She denies any vaginal discharge, itching, or burning. No sores or lesions. No abdominal pain. No history of STD. No known exposure to STDs. All remainder of review of systems unremarkable. MEDICATIONS: Ngvve-Ocy-Xixder. ADR/ALLERGIES: NONE KNOWN. HEALTH HABITS: She exercises routinely. Does not smoke. Drinks less than or equal to 1 or 2 alcoholic beverages a week. Always wears seat belts. Had tetanus updated in 1997 and has had the hepatitis B immunization series. OBJECTIVE: VS: BP: 114/74. P: 74. HT: 5 ft 5-1/4 in. WT: 157. She is alert, oriented. SKIN: Warm, dry, nondiaphoretic. HEENT: Eyes: Conjunctivae clear. Ears: TMs pearly lopez. Nasal passages nonhyperemic. Oropharynx within normal limits. NECK: Supple, without lymphadenopathy. LUNGS: Clear. No wheezes, rales, or rhonchi. CARDIOVASCULAR: S1, S2 rate and rhythm regular, without murmurs, clicks, or rubs. BREASTS: Symmetric. No skin dimpling, puckering, or retraction. Nipples everted, no discharge. No axillary lymphadenopathy. No discrete masses. ABDOMEN: Round. Active bowel sounds. Soft and nontender. No hepatosplenomegaly or masses. External genitalia without lesions. Vagina pink, smooth, moist. Cervix round, smooth, nulliparous, mobile, nontender. Uterus, adnexa without fullness or pain. Liquid prep specimen, chlamydia and gonorrhea obtained with patient's consent. EXTREMITIES: No cyanosis, clubbing, or edema. DPs 2+. NEURO: Even tandem gait observed and brisk patellar reflexes. ASSESSMENT: 1. Routine health maintenance exam. 2. Contraception refill. 3. Herpes simplex virus 1. 4. STD testing. PLAN: She is given Valtrex 500 mg 1 p.o. b.i.d. for 3 days p.r.n., number 6, no refills. A refill of Szpwn-Bgc-Tskmfk for 1 year. In addition to the chlamydia/gonorrhea test already performed, she will have HIV, RPR, and hepatitis C antibody drawn, and she will return to clinic for results of testing. LAE:[id number] C: 07/11/04 10:05 DOCUMENT: [id number] documented in this encounter Plan of Treatment Not on filedocumented as of this encounter Visit Diagnoses Not on filedocumented in this encounter Care Teams Inbound Sales Consultant Relationship Specialty Start Date End Date Mikala Best, FINANCE DIRECTOR, CLIENT REPORTING ASSOCIATE PCP - General 07/16/10 02/11/[address] [place] [address] documented as of this encounter
--- OUTSIDE RECORDS SUMMARY | 2022-03-23 17:38 | XMS_ITS | Encounter Summary ---
:1980 [facility] Address [address] [address] Care Team Providers Name Role Phone Gilles Bestmacario URBINA CNP Primary Care Provider [phone] Encounter Details Date Type Department Care Team Description 03/26/2005 Office Visit [facility] [place] [address] [address] [place] [address] [place], [place] [phone] (Wo rk) Social History Tobacco Use Types Packs/Day Years Used Date Smoking Tobacco: Never Assessed Sex Assigned at Date Recorded Not on file documented as of this encounter Last Filed Vital Signs Vital Sign Reading Time Taken Comments Blood Pressure 110/61 03/26/2005 11:37 AM QUALITY REP Pulse 74 03/26/2005 11:37 AM QUALITY REP Temperature 36.6 ??C (97.9 ??F) 03/26/2005 11:37 AM QUALITY REP C: 3 6.6 C Respiratory Rate 16 03/26/2005 11:37 AM QUALITY REP Oxygen Saturation - - Inhaled Oxygen Concentration - - Weight - - Height - - Body Mass Index - - documented in this encounter Progress Notes Luz Marina Cheng MD - 03/26/2005 12:01 AM CST Progress Notes signed by Luz Marina Cheng MD at 04/23/05 0850 Author: Luz Marina Cheng MD Service: (none) Author Type: Physician Filed: 08/03/10910 Note Time: 03/26/05 0001 Status: Signed Sheet Rock Taper Helper: Luz Marina Cheng MD (Physician) NAME: SHAMIR NOLASCO MR: [id number] ACCT: [id number] VISIT: [id number] DICTATING CLINICIAN: LUZ MARINA CHENG MD JOB: [id number] CLINIC PROGRESS NOTE DATE OF VISIT: 03/26/2005 SUBJECTIVE: : 1980. Shamir is a 25-year-old female, comes in complaining that she hit her left fifth toe on the nightstand last night. This was about 12 hours ago. Hurts to walk on her foot. She complains of pain in the left fifth toe, as well as just a little bit proximal to that. Has had a little bit of swelling in it. Did not take any medicine or put any ice on it. No previous history of fracture. She is eight months and expecting a child in one month and is worried about a possible fracture. 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 Has no medical problems. MEDICATIONS: None. ADR/ALLERGIES: NONE. OBJECTIVE: VS: BP: 110/61. T: 97.9. P: 76. R: 16. Left fifth toe is a little bit swollen, but there is no significant discoloration. She has tenderness at the base of the fifth toe as well as at the distal fifth metatarsal. No tenderness at the base of the fifth metatarsal. She can flex and extend her toe. The nail is intact. There is no subungual hematoma. X-rays are obtained after we had an extensive discussion regarding radiation exposure during 8th month of . Verbal consent was obtained prior. X-rays were reviewed by myself, as well as the patient. When she was here, I did not see any obvious evidence of fracture, however, after she had left, I noted in the lateral view that it did appear that she had a fracture of the proximal phalanx, distal portion, at the interphalangeal joint of the left fifth toe. I discussed this with her by phone after I had initially talked to her about the negative findings, with the caveat that she be contacted about positive ones. However, upon reexamination noted the actual fracture. We discussed fracture management over the phone. Ralph tape would be okay. I do not know that it will help her, but mostly, I asked her to wear a shoe essentially any time she is up and around as I have concerns that she could stub her toe again and prolong the healing. With the expected delivery in one month, this would be a problem for her to carry a and keep her balance. May use to and/or ice and elevate it to facilitate healing as well. ASSESSMENT: Left fifth toe fracture. PLAN: As above. MKB:[id number] C: 03/26/05 15:53 DOCUMENT: [id number] ITY REP documented in this encounter Plan of Treatment Not on filedocumented as of this encounter Procedures Procedure Name Priority Date/Time Associated Diagnosis Comme nts XR FOOT LT 3+ VIEWS Routine 03/26/2005 12:51 PM R esults for this QUALITY REP procedure are i n the results section. documented in this encounter Results XR Foot Lt 3+ Views (03/26/2005 12:51 PM QUALITY REP) Anatomical Region Laterality Modality Lower Extremity, Foot Other Specimen (Source) Anatomical Location Collection Method / Collectio n Time Received Time / Laterality Volume Narrative 03/26/2005 12:51 PM QUALITY REP On lateral view there appears to be an undisplaced intraarticular fracture of the distal articular surface of the proximal phalanx of the 5th toe. ??No other abnormalities ar e identified. CONCLUSION: ??Undisplaced intraarticular fracture of the distal aspect of the proximal phalanx of the 5th toe. SC rlr [id number] Dictating KARLA CANTU RADIOLOGIST Procedure Note Karla Brooks - 06/20/2016 On lateral view there appears to be an u ndisplaced intraarticular fracture of the distal articular surface of the proximal phalanx of the 5th toe. No other abnormalities are identified. CONCLUSION: Undisplaced intraarticular f racture of the distal aspect of the proximal phalanx of the 5th toe. SC rlr [id number] Dictating KARLA CANTU RADIOLOGIST Luz Marina Cheng MD RAD GD documented in this encounter Visit Diagnoses Not on filedocumented in this encounter Care Teams Business Analyst Intern Relationship Specialty Start Date End Date Mikala Best, CARLITOS, OWNER/PHOTOGRAPHER PCP - General 07/16/10 02/11/12 [address] [place] [address] documented as of this encounter
--- OUTSIDE RECORDS SUMMARY | 2022-03-23 17:38 | XMS_ITS | Encounter Summary ---
:1980 Author Organization [facility] Address [address] [place] [address] Care Team Providers Name Role Phone Mikala Best APRN, CNP Primary Care Provider [phone] Encounter Details Date Type Department Care Team Description 03/14/2005 Routine Sonja Cagle, Obstetrics/Gynecolog y BONITA URBINA [address] [address] [address] [place] [address] [place] [phone] (Wo rk) Social History Tobacco Use Types Packs/Day Years Used Date Smoking Tobacco: Never Assessed Sex Assigned at Date Recorded Not on file documented as of this encounter Plan of Treatment Not on filedocumented as of this encounter Visit Diagnoses Not on filedocumented in this encounter Care Teams Client Experience Consultant Relationship Specialty Start Date End Date Mikala Best APRN, CNP PCP - General 07/16/10 02/11/12 [address] [address] [place] [address] documented as of this encounter
--- OUTSIDE RECORDS SUMMARY | 2022-03-23 17:38 | XMS_ITS | Encounter Summary ---
:1980 Author Organization [facility] Address [address] [address] Care Team Providers Name Role Phone Mikala Best APRN, CNP Primary Care Provider [phone] Encounter Details Date Type Department Care Team Description 04/04/2005 Routine Allen Tam Obstetrics/[place] [address] [address] [address] [facility] [place] [address] [place] [address] [phone] (Wo rk) Social History Tobacco Use Types Packs/Day Years Used Date Smoking Tobacco: Never Assessed Sex Assigned at Date Recorded Not on file documented as of this encounter Plan of Treatment Not on filedocumented as of this encounter Visit Diagnoses Not on filedocumented in this encounter Care Teams Outdoor Education Teacher Relationship Specialty Start Date End Date Mikala Best APRN, CNP PCP - General 07/16/10 02/11/12 [address] [address] [place] [address] documented as of this encounter
--- OUTSIDE RECORDS SUMMARY | 2022-03-23 17:38 | XMS_ITS | Encounter Summary ---
:1980 [facility] Address [address] [place] [address] Care Team Providers Name Role Phone Mikala Best APRN, [facility] Primary Care Provider [phone] Encounter Details Date Type Department Care Team Description 07/10/2004 PN Conversion Only HANNA CONVERSIO N Mikala Best APRN, [address] [place] [address] [facility] [address] [place] [address] (Wo rk) Social History Tobacco Use Types Packs/Day Years Used Date Smoking Tobacco: Never Assessed Sex Assigned at Date Recorded Not on file documented as of this encounter Plan of Treatment Not on filedocumented as of this encounter Procedures Procedure Name Priority Date/Time Associated Comments Diagnosis HIV ANTIBODY Routine 07/10/2004 5:13 PM Results f or this PARTNER INTEGRATION PLANNER procedure are i n the results section. RPR BLOOD Routine 07/10/2004 5:13 PM Results f or this PARTNER INTEGRATION PLANNER procedure are i n the results section. HEPATITIS C ANTIBODY, Routine 07/10/2004 5:13 PM Results for this WITH REFLEX PARTNER INTEGRATION PLANNER procedure are i n the results section. SEXUALLY TRANSMITTED Routine 07/10/2004 4:20 PM R esults for this DISEASE PROBE PARTNER INTEGRATION PLANNER procedure are in the results section. ANATOMICAL PATH Routine 07/10/2004 6:47 AM Result s for this LIQUID BASED PARTNER INTEGRATION PLANNER procedure are i n the results section. documented in this encounter Results RPR Blood (07/10/2004 5:13 PM PARTNER INTEGRATION PLANNER) P athologist Signature RPR Non Reac Non Reac HP CONVERSION Specimen (Source) Anatomical Collection Method Collection Time Re ceived Time Location / / Volume Laterality 07/10/2004 5:13 PM PARTNER INTEGRATION PLANNER Mikala Best APRN, CNP LAB_1 Performing Organization Address City/State/ZIP Code Phon e Number HP CONVERSION Hepatitis C Antibody, with Reflex (07/10/2004 5:13 PM PARTNER INTEGRATION PLANNER) Analysis Performed At Patho logist Time [facility] [place] Hepatitis C Non Reac Non Reac HP CONVERSION Antibody Specimen (Source) Anatomical Collection Method Collection Time Re ceived Time Location / / Volume Laterality 07/10/2004 5:13 PM PARTNER INTEGRATION PLANNER Mikala Best APRN, CNP LAB_1 Performing Organization Address City/State/ZIP Code Phon e Number HP CONVERSION HIV Antibody (07/10/2004 5:13 PM PARTNER INTEGRATION PLANNER) athologist Signature HIV 1/HIV 2 Non Reac Non Reac HP CONVERSION Specimen (Source) Anatomical Collection Method Collection Time Re ceived Time Location / / Volume Laterality 07/10/2004 5:13 PM PARTNER INTEGRATION PLANNER Mikala Best APRN, CNP LAB_1 Performing Organization Address City/[facility] [address]/ZIP Code Phon e Number HP CONVERSION Sexually Transmitted Disease Probe (07/10/2004 4:20 PM PARTNER INTEGRATION PLANNER) Patholo gist Method Time Signature Sexually SEE TEXT HP CONVERSION Transmitted Disease Probe Comment: Patient: SHAMIR NOLASCO Sexually Trans Disease Probe @ ?Collected: ?1620 Source: ENDOCERV ?Processed: ??[id number] ??1044 Final Report ------ ?[id number] ??1605 No Chlamydia trachomatis detected by amp lified DNA assay No Neisseria gonorrhoeae detected by amp lified DNA assay @ = Sexually Trans Disease Probe Perform ed at ??[address] [facility], ?[place] [address] Specimen (Source) Anatomical Collection Method Collection Time Re ceived Time Location / / Volume Laterality 07/10/2004 4:20 PM PARTNER INTEGRATION PLANNER Mikala Best APRN, CNP LAB_1 Performing Organization Address City/State/[facility] Phon e Number HP CONVERSION Pap Smear (07/10/2004 6:47 AM PARTNER INTEGRATION PLANNER) [facility] gist Method Time Signature PAP Smear SEE TEXT No normal HP CONVERSION Liquid Based range Comment: Patient: SHAMIR NOLASCO ? CERVICAL CYTOLOGY REPORT Pathology # ??[id number] ?Date Obtained: ? Date Received: CYTOLOGIC IMPRESSION: Negative for intraepithelial lesion or m alignancy. ? ANDREA TIONAL DATA LMP: ?06-28-04 CLINICAL HIST LIQUID BASED PAP CERVICAL SPECIMEN ADEQUACY: ?? Satisfactory. ENDOCERVICAL CELLS: ??Present. Verified 07/17/04 by: ??S_V ?(electronic signature) Specimen (Source) Anatomical Collection Method Collection Time Re ceived Time Location / / Volume Laterality 07/10/2004 6:47 AM PARTNER INTEGRATION PLANNER Mikala Best APRN, CNP LAB_1 Performing Organization Address City/State/ZIP Code Phon e Number HP CONVERSION documented in this encounter Visit Diagnoses Not on filedocumented in this encounter Care Teams Social Sciences Chair Relationship Specialty Start Date End Date Mikala Best APRN, CNP PCP - General 07/16/10 02/11/[address] [place] [address] documented as of this encounter
--- OUTSIDE RECORDS SUMMARY | 2022-03-23 17:38 | XMS_ITS | Encounter Summary ---
:1980 Author Organization [facility] Address [address] [address] Care Team Providers Name Role Phone Mikala Best APRN, CNP Primary Care Provider [phone] Encounter Details Date Type Department Care Team Description 01/14/2005 Routine Allen Tam Obstetrics/[place] [address] [facility] [address] [place] [address] [place] [address] [phone] (Wo rk) Social History Tobacco Use Types Packs/Day Years Used Date Smoking Tobacco: Never Assessed Sex Assigned at Date Recorded Not on file documented as of this encounter Plan of Treatment Not on filedocumented as of this encounter Visit Diagnoses Not on filedocumented in this encounter Care Teams Table Games Dealer Relationship Specialty Start Date End Date Mikala Best APRN, CNP PCP - General 07/16/10 02/11/12 [address] [place] [address] documented as of this encounter
--- OUTSIDE RECORDS SUMMARY | 2022-03-23 17:38 | XMS_ITS | Encounter Summary ---
:1980 Author Organization [facility] Address [address] [place] [address] Care Team Providers Name Role Phone Mikala Best APRN, CNP Primary Care Provider [phone] Reason for Visit Reason Comments Other Encounter Details Date Type Department Care Team Description 02/19/2005 Telephone [facility] Pierce Siddiqui Other [address] [place] [address] Social History Tobacco Use Types Packs/Day Years Used Date Smoking Tobacco: Never Assessed Sex Assigned at Date Recorded Not on file documented as of this encounter Progress Notes Pierce Siddiqui - 02/19/2005 12:13 PM CST Phone Note filed by Pierce Siddiqui RN at 07/30/102204 Author: Pierce Siddiqui RN Service: (none) Author Type: Registered Nurse Filed: 07/30/102204 Note Time: 02/19/053 Status: Signed Flat Knitter Helper: Pierce Siddiqui RN (Registered Nurse) Pt. calling. Is 25 weeks and has 3 moles on her breast. States one of them was present before the and it is changing. Appt. made with Mikala Best for this afternoon. Created on 19Feb2005 12:13pm by PIERCE SIDDIQUI CDL DRIVER documented in this encounter Plan of Treatment Not on filedocumented as of this encounter Visit Diagnoses Not on filedocumented in this encounter Care Teams Rda Relationship Specialty Start Date End Date Mikala Best APRN, RENTAL CAR FERRY DRIVER PCP - General 07/16/10 02/11/12 [address] [address] [place] [address] documented as of this encounter
--- OUTSIDE RECORDS SUMMARY | 2022-03-23 17:38 | XMS_ITS | Encounter Summary ---
:1980 Author Organization [facility] Address [address] [address] Care Team Providers Name Role Phone Mikala Best APRN, CNP Primary Care Provider [phone] Encounter Details Date Type Department Care Team Description 12/31/2004 Office Visit Allen Tam, Obstetrics/Gynecolog y [address] [place] [address] [place] [address] [phone] (Wo rk) Social History Tobacco Use Types Packs/Day Years Used Date Smoking Tobacco: Never Assessed Sex Assigned at Date Recorded Not on file documented as of this encounter Plan of Treatment Not on filedocumented as of this encounter Visit Diagnoses Not on filedocumented in this encounter Care Teams Silver Brazer Relationship Specialty Start Date End Date Mikala Best APRN, CNP PCP - General 07/16/10 02/11/12 [address] [place] [place] [address] documented as of this encounter
--- OUTSIDE RECORDS SUMMARY | 2022-03-23 17:38 | XMS_ITS | Encounter Summary ---
:1980 Author Organization [facility] Address [address] [place] [address] Care Team Providers Name Role Phone BevGilles alvaradomacario URBINA, BONITA Primary Care Provider [phone] Encounter Details Date Type Department Care Team Description 04/03/2004 Laborer General Only [facility] [facility] Nasir Boyce, MedSunemesio DPPatricia [address] [address] [place] [address] [place] [address] [phone] (Wo rk) Social History Tobacco Use Types Packs/Day Years Used Date Smoking Tobacco: Never Assessed Sex Assigned at Date Recorded Not on file documented as of this encounter Progress Notes Arnoldo Boyce DPM - 04/03/2004 12:01 AM CST Progress Notes signed by Arnoldo Boyce DPM at 04/03/04 1725 Author: Arnoldo Bocye DPM Service: (none) Author Type: Physician Filed: 08/03/10 0224 Note Time: 04/03/04 0001 Status: Signed Investment Counselor: Arnoldo Boyce DPM (Physician) The patient was called and informed that her labs were normal. I informed her that the culture result did not show fungus. It was reviewed with her that a positive culture is required to obtain preauthorization per the letter from [employer] dated Feb 29, 2004. She was told that she could still pursue the medication but it would be at her cost. ENT SERVICES VICE PRESIDENT documented in this encounter Plan of Treatment Not on filedocumented as of this encounter Visit Diagnoses Not on filedocumented in this encounter Care Teams Chemical Research Engineer Relationship Specialty Start Date End Date Mikala Best APRN, CATH LAB RADIOLOGY TECHNICIAN PCP - General 07/16/10 02/11/12 [address] [place] [address] documented as of this encounter
--- OUTSIDE RECORDS SUMMARY | 2022-03-23 17:38 | XMS_ITS | Encounter Summary ---
:1980 Author Organization [facility] Address [address] [place] [address] Care Team Providers Name Role Phone Mikala Best APRN, CNP Primary Care Provider [phone] Encounter Details Date Type Department Care Team Description 02/12/2005 Routine Jessica Ness Obstetrics/Gynecolog y MCARLITOS, BONITA [address] [place] [address] [phone] [place], [place] [address] (Wo rk) Social History Tobacco Use Types Packs/Day Years Used Date Smoking Tobacco: Never Assessed Sex Assigned at Date Recorded Not on file documented as of this encounter Plan of Treatment Not on filedocumented as of this encounter Visit Diagnoses Not on filedocumented in this encounter Care Teams General Milling Superintendent Relationship Specialty Start Date End Date Mikala Best APRN, CNP PCP - General 07/16/10 02/11/[address] [place] [address] documented as of this encounter
--- OUTSIDE RECORDS SUMMARY | 2022-03-23 17:38 | XMS_ITS | Encounter Summary ---
:1980 Author Organization [facility] Address [address] [address] Care Team Providers Name Role Phone Mikala Best APRN, CNP Primary Care Provider [phone] Encounter Details Date Type Department Care Team Description 11/08/2004 Initial Allen Tam Obstetrics/[place] [address] [facility] [address] [facility] [place] [address] [place] [address] [phone] (Wo rk) Social History Tobacco Use Types Packs/Day Years Used Date Smoking Tobacco: Never Assessed Sex Assigned at Date Recorded Not on file documented as of this encounter Plan of Treatment Not on filedocumented as of this encounter Visit Diagnoses Not on filedocumented in this encounter Care Teams Racebook Writer Relationship Specialty Start Date End Date Mikala Best APRN, CNP PCP - General 07/16/10 02/11/12 [address] [place] [address] [place] [address] documented as of this encounter
--- OUTSIDE RECORDS SUMMARY | 2022-03-23 17:38 | XMS_ITS | Encounter Summary ---
:1980 Author Organization [facility] Address [address] [place] [address] Care Team Providers Name Role Phone Bevjenny Mikala URBINA CNP Primary Care Provider [phone] Encounter Details Date Type Department Care Team Description 12/18/2004 PN Conversion Only RINER CONVERSIO N Jessica Gimenez [address] [facility] [place] [address] [address] [place] [address] (Wo rk) Social History Tobacco Use Types Packs/Day Years Used Date Smoking Tobacco: Never Assessed Sex Assigned at Date Recorded Not on file documented as of this encounter Plan of Treatment Not on filedocumented as of this encounter Procedures Procedure Name Priority Date/Time Associated Diagnosis Comme nts MATERNAL MARKER Routine 12/18/2004 9:25 AM Result s for this QUAD CDT procedure are i n the results section. documented in this encounter Results Maternal Marker Quad (12/18/2004 9:25 AM CDT) Analysis Performed At Patho logist Time Signature Date Of [id number] No normal HP CONVERSION range Maternal 168 No normal HP CONVERSION Weight range Comment: Choose 1 date ? type: LMP: ?08/22/04 MARIANO: ?05/31/05 Ultrasound Date ?? 10/26/04 US Weeks: ? 09 ?Week s US Days: ?05 ?Day s Type Of Single No normal range HP CON VERSION Race NonBlack No normal range HP CONVERSION Insulin Dependent Diabetic? No No normal range HP CONVERSION Family History Of Neural Tube Disorders No No normal range HP CONVERSION Weeks Gestation 17 No normal range HP CONVE RSION AFP, Maternal 58.3 ng/mL HP CONVERSION MoM For AFP 1.89 No normal range HP CONVERSIO N Comment: Reference range: 0.20 - 2.50 HCG, Maternal Screen 52,800 mIU/mL HP CONVER LARISA MoM For HCG 2.20 No normal range HP CONVERSIO N Serum Estriol - Maternal 1.13 ug/dL HP CO NVERSION Ue3 MoM 0.88 No normal range HP CONVERSION Inhibin A 213.00 pg/mL HP CONVERSION Inhibin MoM 1.37 No normal range HP CONVERSIO N Comment: 17 weeks 2 days by U/S (9 weeks 5 days o n 10/26/04) The risk of Down syndrome is LESS than t he screening cut-off The serum screen has indicated a REDUCED risk compared to that based on maternal age alone. The maternal serum AFP result is NOT yue vated for a of this gestational age. The risk of an open neural tube defect i s less than the screening cut-off. SCREENNEGATIVEFOR RISK OF DOWN SYN DROME AND OSB Age For MAFP 26 No normal range HP CONVERSI ON Specimen (Source) Anatomical Collection Method Collection Time Re ceived Time Location / / Volume Laterality 12/18/2004 9:25 AM CDT Jessica Gimenez APRN, CNP LAB_1 Performing Organization Address City/State/ZIP Code Phon e Number HP CONVERSION documented in this encounter Visit Diagnoses Not on filedocumented in this encounter Care Teams Salesperson Pianos [employer]gans Relationship Specialty Start Date End Date Mikala Best APRN, CNP PCP - General 07/16/10 02/11/12 [address] [place] [place] [address] documented as of this encounter
--- OUTSIDE RECORDS SUMMARY | 2022-03-23 17:38 | XMS_ITS | Encounter Summary ---
:1980 Author Organization [facility] Address [address] [address] Care Team Providers Name Role Phone Mikala Best APRN, CNP Primary Care Provider [phone] Encounter Details Date Type Department Care Team Description 03/14/2005 PN Conversion Only [place] [facility] Jessica Gimenez [address] [facility] [place] [address] [address] [place] [address] (Wo rk) Social History Tobacco Use Types Packs/Day Years Used Date Smoking Tobacco: Never Assessed Sex Assigned at Date Recorded Not on file documented as of this encounter Plan of Treatment Not on filedocumented as of this encounter Procedures Procedure Name Priority Date/Time Associated Comments Diagnosis HEMOGLOBIN OB Routine 03/14/2005 10:00 AM Results for this DEVELOPMENT ENGINEER procedure are i n the results section. GLUCOSE - 1 HR. P.C. Routine 03/14/2005 10:00 AM Results for this PREG DEVELOPMENT ENGINEER procedure are i n the results section. documented in this encounter Results Hemoglobin Ob (03/14/2005 10:00 AM DEVELOPMENT ENGINEER) P athologist Signature OB Hemoglobin 12.3 gm/dL HP CONVERSION Comment: First trimester (week 12) 11.0 - 13.4 gm /dL Second trimester(week 20) 10.5 - 12.7 gm /dL Third trimester (week 32) 11.0 - 13.2 gm /dL From MMWR 1988;38(22): 400-4 Specimen (Source) Anatomical Collection Method Collection Time Re ceived Time Location / / Volume Laterality 03/14/2005 10:00 AM DEVELOPMENT ENGINEER Jessica Gimenez APRN, [place] LAB_1 Performing Organization Address City/[facility]/ZIP Code Phon e Number HP CONVERSION Glucose - 1 Hr. P.C. Preg (03/14/2005 10:00 AM DEVELOPMENT ENGINEER) P athologist Signature Glucose, GTT - 91 40 - 139 HP CONVERSION 1 Hour mg/dL Specimen (Source) Anatomical Collection Method Collection Time Re ceived Time Location / / Volume Laterality 03/14/2005 10:00 AM DEVELOPMENT ENGINEER Jessica Gimenez APRN, [place] LAB_1 Performing Organization Address [facility] Phon e Number HP CONVERSION documented in this encounter Visit Diagnoses Not on filedocumented in this encounter Care Teams Parachute Packer Relationship Specialty Start Date End Date Mikala Best APRN, [place] PCP - General 07/16/10 02/11/12 [address] [place] [address] documented as of this encounter
--- OUTSIDE RECORDS SUMMARY | 2022-03-23 17:38 | XMS_ITS | Encounter Summary ---
:1980 [facility] Address [address], [place] [address] Care Team Providers Name Role Phone Mikala Best APRN, CNP Primary Care Provider [phone] Encounter Details Date Type Department Care Team Description 02/19/2005 Office Visit [place] Internal Mikala Best APRN, [facility] CLOTH SHRINKING MACHINE OPERATOR HELPER [address] [facility] [address] [place] [address] [place] [address] [phone] (Wo rk) Social History Tobacco Use Types Packs/Day Years Used Date Smoking Tobacco: Never Assessed Sex Assigned at Date Recorded Not on file documented as of this encounter Last Filed Vital Signs Vital Sign Reading Time Taken Comments Blood Pressure 100/64 02/19/2005 1:01 PM DRAG DOWN Pulse 78 02/19/2005 1:01 PM C: Radial Reg ular DRAG DOWN Temperature 37.3 ??C (99.1 ??F) 02/19/2005 1:01 PM ORAL C: 3 7.3 C DRAG DOWN Respiratory Rate 16 02/19/2005 1:01 PM DRAG DOWN Oxygen Saturation - - Inhaled Oxygen - - Concentration Weight 71.2 kg (156 lb 15.8 02/19/2005 1:01 PM C: 71.2k g oz) DRAG DOWN Height - - Body Mass Index 25.93 07/10/2004 4:32 PM DRAG DOWN documented in this encounter Progress Notes Mikala Best APRN, CNP - 02/19/2005 12:01 AM CST Progress Notes signed by MEME Santos at 02/20/05 1524 Author: MEME Santos Service: (none) Author Type: (none) Filed: 08/03/10 0829 Note Time: 02/19/052015 Status: Signed [place] Supervisor: MEME Santos (Nurse Practitioner) NAME: SHAMIR GOTTLIEB MR: [id number] ACCT: [id number] VISIT: [id number] DICTATING CLINICIAN: MIKALA BEST RN,CLOTH SHRINKING MACHINE OPERATOR HELPER JOB: [id number] CLINIC PROGRESS NOTE DATE OF VISIT: 02/19/2005 SUBJECTIVE: : 1980. CC: Lesion, left breast. HPI: Right before she got this year Shamir noticed that she had a new mole on the left lateral breast. She says she does think it has changed through this , she is at about 25 weeks now, however, it is not irritated, itchy, nor does it bleed or cause any problems. She has a history of multiple nevi, but she has never had any removed, and there is no family history of skin cancer. SOCIAL HISTORY: . OBJECTIVE: VS: BP: 100/64. T: 99. P: 78. R: 16. Shamir is upbeat, alert, oriented. SKIN: Warm, dry, and nondiaphoretic, she does have multiple pigmented nevi. On the left lateral breast there is a 5 mm, uniformly pigmented, light nazario, [id number]-[id number] lesion. No other suspicious lesions noted elsewhere. ASSESSMENT: Seborrheic keratosis. PLAN: She is reassured. LAE:[id number] C: 02/20/05 09:29 DOCUMENT: [id number] DOWN documented in this encounter Plan of Treatment Not on filedocumented as of this encounter Visit Diagnoses Not on filedocumented in this encounter Care Teams Special Trackwork Blacksmith Relationship Specialty Start Date End Date Mikala Best APRN, CLOTH SHRINKING MACHINE OPERATOR HELPER PCP - General 07/16/10 02/11/12 [address] [place] [address] documented as of this encounter
--- OUTSIDE RECORDS SUMMARY | 2022-03-23 17:38 | XMS_ITS | Encounter Summary ---
:1980 Author Organization [facility] Address [address] [place] [address] Care Team Providers Name Role Phone Gilles Bestmacario URBINA, [place] Primary Care Provider [phone] Encounter Details Date Type Department Care Team Description 06/02/2003 PN Conversion Only [facility] Deb Clemente [facility] [address] [place] [address] [phone] (Wo rk) Social History Tobacco Use Types Packs/Day Years Used Date Smoking Tobacco: Never Assessed Sex Assigned at Date Recorded Not on file documented as of this encounter Progress Notes Yudelka Clemente MD - 06/02/2003 12:01 AM CST H&P signed by at 06/06/03 1135 Author: Yudelka Clemente MD Service: (none) Author Type: (none) Filed: 08/02/10 1908 Note Time: 06/02/03 0001 Status: Signed Fact Checker: [place] Conversion NAME: SHAMIR NOLASCO MR: [id number] ACCT: [id number] VISIT: [id number] DICTATING CLINICIAN: YUDELKA CLEMENTE MD JOB: [id number] CLINIC PHYSICAL DATE OF VISIT: 06/02/2003 ASSESSMENT: History of hyperlipidemia. Well exam. History of HSV infection. PLAN: GC, chlamydia, UA, Pap smear and hemoglobin, fractionated lipid profile to be done. Valtrex 500 t.i.d. p.r.n. outbreaks prescribed. Low cholesterol diet and self breast exams recommended along with her regular exercise. I will follow up with her when I have the results. SUBJECTIVE: : 1980. Ityjrq-zotp-nsfe-old female who is here for her well exam. PAST MEDICAL HISTORY: Unremarkable. PAST SURGICAL HISTORY: Tonsillectomy and adenoids at age [age]. SOCIAL HISTORY: She is . She is in the services. CURRENT MEDICATIONS: Ortho Tri-Cyclen. ADR/ALLERGIES: NO KNOWN DRUG ALLERGIES. Tetanus is up to date. She does not smoke. Alcohol use is social. Caffeine is moderate. She does exercise regularly enjoying treadmill and elliptical security trainer. She does not do self breast exam. She does wear her seatbelt. DEBT RECOVERY OFFICER HISTORY: zero, para zero. LMP is ??05/24/03??. Menses every 28 days lasting four to five days. Denies history of abnormal Pap. Would like general STD screening. FAMILY HISTORY: Mother living at 57. Father living age 61 and healthy. One sister, 28, healthy. REVIEW OF SYSTEMS: She does state her cholesterol had been high in the past, it was 237. Remainder of review of systems, pain and nutrition screen is negative. OBJECTIVE: VS: BP: 114/76. P: 72. Ht: 65-1/2 in tall. Wt: 149. Well-developed, pleasant female. TMs are normal. Oropharynx is clear. Good dentition. Nares are clear. Pupils equal, reactive to light. Extraocular movements are intact. Fundi are normal. NECK: Supple. No thyromegaly, no adenopathy. LUNGS: Clear to auscultation. CARDIOVASCULAR: S1, S2 without a murmur. BREASTS: Normal. ABDOMEN: Normal bowel sounds, nondistended, nontender, no hepatosplenomegaly. DEBT RECOVERY OFFICER: Normal external genitalia, BSU, vaginal mucosa. Cervix: No lesions. Pap is obtained. No cervical motion tenderness. Uterus is midline. Normal size and no adnexal masses palpable. EXTREMITIES: No edema. SKIN: Clear. She does have multiple skin tags, which appear benign along her neck and thighs. JAXSON:[id number] C: 06/02/03 14:34 DOCUMENT: [id number] NING COORDINATOR Phone Note, Clinician - 03/01/2003 12:01 AM CST Phone Note signed by MEME Santos at 03/18/03 1004 Author: Clinician Phone Note Service: (none) Author Type: Resource Filed: 06/02/03 0000 Note Time: 03/01/03 0001 Status: Signed Fact Checker: Clinician Phone Note (Resource) - TREATING PROVIDER: MIKALA BEST SUBJECTIVE: * HOME PHONE:[phone] * ALLERGIES/SENSITIVITIES... CURRENT MEDICATIONS... PERTINENT PAST HISTORY... ASSESSMENT: Rx refill DISPOSITION: NO DISPOSITION GIVEN OMITTED ASKING ABOUT . OMITTED ASKING ABOUT NURSING. PLAN[place] [facility] [place]... Per Mikala Best FINANCIAL SERVICES INTERN; Ortho tri-cyclen 28 #84 x 1. This was faxed into [facility] pharm by Jesse Carlos at [phone]. CALL BY BESS JORDAN 03/01/2003 10:24AM [phone] ADDENDUM: Umu Morrow MD - 07/23/2002 12:01 AM CDT Progress Notes signed by Umu Thomas MD at 07/28/02 1833 Author: Umu Thomas MD Service: (none) Author Type: Physician Filed: 08/02/10 1353 Note Time: 07/23/02 0001 Status: Signed Fact Checker: Umu Thomas MD (Physician) NAME: SHAMIR NOLASCO MR: [id number] ACCT: [id number] VISIT: [id number] DICTATING CLINICIAN: UMU THOMAS MD JOB: [id number] CLINIC PROGRESS NOTE DATE OF VISIT: 07/23/2002 SUBJECTIVE: : 1980. Shamir is a 22-year-old female who comes in requesting a prescription for Valtrex 1000 mg p.o. t.i.d. to be taken on a p.r.n. basis for outbreaks of oral herpes. She has had multiple outbreaks in the past since she was a teenager. 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 She just received notice a few days ago. She does not know how long she will be deployed and location is unknown as well. She is otherwise healthy. Takes control pills. ADR/ALLERGIES: IS ALLERGIC TO NO MEDICATION. OBJECTIVE: VS: BP: 110/78. T: 97.7. P: 64. R: 16. Oral cavity is negative for lesions today. ASSESSMENT: History of oral herpes. PLAN: Valtrex 1000 mg p.o. t.i.d. times 5-7 days on a p.r.n. basis for herpetic outbreak, total of 50. It is unclear if this will be covered by her insurance. Will attempt to get as many as she can obtain before deployment, and I will work with the pharmacy on this. TT: CT: [id number] C: 07/23/02 22:32 DOCUMENT: [id number] Artur Suarez MD - 06/02/2002 12:01 AM CST Progress Notes signed by at 06/05/02 0443 Author: Artur Suarez MD Service: (none) Author Type: Physician Filed: 08/02/10 1303 Note Time: 06/02/02 0001 Status: Signed Fact Checker: Artur Suarez MD (Physician) IMPRESSION: Sinus congestion, likely exacerbated by flying. SUBJECTIVE: Patient presents today for headache, bilateral ear plugging, mild dizziness, nasal congestion over the last three days, gradually becoming somewhat worse at this point. 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 She does not smoke. She denies other underlying health concerns at this point. CURRENT MEDICATIONS: OC. ADR/ALLERGIES: NO ADVERSE REACTIONS TO MEDICATIONS. OBJECTIVE: VS: BP: 126/71. T: 98. P: 70, regular. R: 12. Throat: Mild thick whitish secretions of the posterior pharynx. Glands are without adenopathy. TMs and canals are clear. Nares thick. Whitish discharge is noted. Scant yellowish discharge. Mild nonspecific bilateral sinus tenderness. LUNGS: Clear. ASSESSMENT: Sinus congestion, likely exacerbated by flying. PLAN: At this point, Entex PSE one twice daily over two weeks was begun. Plenty of clear liquids. The sinus handout was given. Discussed if she is worsening over 5-7 days, consider a 10-day course of amoxicillin 500 mg t.i.d. x 10 days. Call or recheck otherwise symptomatic basis. Medicine side effects, including potential BC interaction, discussed. TT: CT: [id number] C: 06/03/02 09:53 DOCUMENT: [id number] NING COORDINATOR Mikala Best APRN, FINANCIAL SERVICES INTERN - 04/23/2002 12:01 AM CST Progress Notes signed by MEME Santos at 07/08/02 1429 Author: MEME Santos Service: (none) Author Type: (none) Filed: 08/02/10 1205 Note Time: 04/23/02 0001 Status: Signed Fact Checker: MEME Santos (Nurse Practitioner) IMPRESSION: Routine health maintenance exam. Contraceptive management. Rhinitis.Nonspecific vaginitis. SUBJECTIVE: A 22-year-old Shamir Nolasco is in clinic today for routine health maintenance exam. She needs a refill of her Ortho Tri-Cyclen. She has been on it for a couple years and she likes this oral contraceptive. She does have one other concern. She said she has had some increase mucous production and sinus drainage and she occasionally gets some thick phlegm in her throat. She denies cough, shortness of breath, wheezing, or chest pain. She has no headache. No frontal or maxillary sinus tenderness. No mucopurulent drainage. No history of sinus infections or allergies. She is not taking any pldr-urn-flgsntf medication. PAST MEDICAL HISTORY: No serious childhood adult illnesses, chronic conditions, previous surgeries, or serious injuries. No hospitalizations. FAMILY HISTORY: To her knowledge no diabetes, coronary artery disease, elevated cholesterol, hypertension, or cancer. PAST SOCIAL HISTORY: She is . Has never been . She is employed through the . Her is a sewer head in [place]. They have just recently moved here from [place]. REVIEW OF SYSTEMS: Endocrine, Ent, cardiovascular, gastrointestinal, genitourinary, musculoskeletal, neurologic, and psych all unremarkable. HEALTH HABITS: She does exercise routinely. Does not smoke. Drinks alcohol only occasionally. Always wears seatbelts and there is no violence in her home. IMMUNIZATIONS: Up to date, as required by the . She thinks her last tetanus was about 1997. MEDICATIONS: Currently, Ortho Tri-Cyclen. ADR/ALLERGIES: NONE KNOWN. OBJECTIVE: VS: BP: 112/80. P: 72. Ht: 5 ft 5-1/2 in. Wt: 154 lb. Very pleasant, young lady in no acute distress today. Well-developed, well-nourished and alert and oriented x3. HEENT: Eyes: Conjunctivae clear and PERRLA. Ears: TMs pearly lopez with good light reflex and landmarks. She has no frontal or maxillary sinus tenderness on percussion. Nasal passages nonhyperemic. There is some thick, coryza noted. Oropharynx: No diffuse erythema, edema, or tonsillar enlargement. There is some post pharyngeal drainage, nonmucopurulent in appearance. NECK: Supple. She has no anterior or posterior or cervical lymphadenopathy. No thyroid enlargement, nodularity, or tenderness. LUNGS: Clear to auscultation throughout, no wheezes, rales, or rhonchi. CARDIOVASCULAR: S1, S2 rate and rhythm are regular without clicks, murmurs, or rubs. PMI nondisplaced. BREASTS: Symmetric. No skin dimpling, puckering, or retractions. Nipples are everted. No discharge. No axillary lymphadenopathy. No discrete masses appreciated. ABDOMEN: Active bowel sounds throughout. Soft, nontender, no masses, no organomegaly. GENITALIA: No lesions noted on the perineum or external genitalia. Vagina pink, smooth, moist. Cervix nonsmooth, nulliparous, mobile, nontender. Uterus, adnexa without fullness or pain. Endocervical, cervical specimens obtained. T&Y at patient's request because she frequently has increased vaginal drainage that is non malodorous and not accompanied by pruritus or edema. EXTREMITIES: Without cyanosis or clubbing. Pedal pulses palpable and symmetric. SKIN: Warm and dry. She does have some mild facial acne and she has an all over nazario from a tanning herman. She does not use sunscreen. ASSESSMENT: 1. Routine health maintenance exam. 2. Contraceptive management. 3. Rhinitis. 4. Nonspecific vaginitis. PLAN: She is given a prescription for Ortho Tri-Cyclen 3 packs with 3 refills, also for Humibid LA 600 mg 1 p.o. b.i.d., #30, no refills. Encouraged to increase her fluid intake. The T&Y is negative and she is reassured that the vaginal secretions are normal vaginal secretions. TT: CT: [id number] C: 04/24/02 21:59 DOCUMENT: [id number] NING COORDINATOR documented in this encounter Plan of Treatment Not on filedocumented as of this encounter Procedures Procedure Name Priority Date/Time Associated Comments Diagnosis WET PREP LOCH SHELDRAKE Routine 04/23/2002 1:27 PM Results for this [facility] TRAINING COORDINATOR procedure ar e in the results section. ANATOMICAL PATH-C Routine 04/23/2002 11:49 AM Res ults for this TRAINING COORDINATOR procedure are i n the results section. documented in this encounter Results Wet Prep [facility] (04/23/2002 1:27 PM TRAINING COORDINATOR) [facility] Method Time Signature Wet Prep ? No normal HP CONVERSION range Wet Prep Trich Negative No normal HP CONVERSION [facility] Wet Prep WBC Few No normal HP CONVERSION [facility] Wet Prep Few No normal HP CONVERSION Bacteria [facility] Wet Prep Clue Negative No normal HP CONVERSION Cells [facility] Wet Prep Yeast Negative No normal HP CONVERSION [facility] Wet Prep Amine Negative No normal HP CONVERSION [place] range Grainger Cl Specimen (Source) Anatomical Collection Method Collection Time Re ceived Time Location / / Volume Laterality 04/23/2002 1:27 PM TRAINING COORDINATOR Mikala Best APRN, CNP LAB_1 Performing Organization Address [facility] Phon e Number HP CONVERSION Anatomical Path-C (04/23/2002 11:49 AM TRAINING COORDINATOR) P athologist Signature PAP Smear SEE TEXT No normal HP CONVERSION range Comment: Patient: SHAMIR NOLASCO ? CERVICAL CYTOLOGY REPORT Pathology # ??[id number] ?Date Obtained: ? Date Received: LMP: CLINICAL HIST CONVENTIONAL PAP SMEAR-CERVIX SPECIMEN ADEQUACY: ?? Satisfactory. ENDOCERVICAL CELLS: ??Present. CYTOLOGIC IMPRESSION: Negative for intraepithelial lesion or m alignancy. Verified 05/13/02 by: ? (electronic signature) Specimen (Source) Anatomical Collection Method Collection Time Re ceived Time Location / / Volume Laterality 04/23/2002 11:49 AM TRAINING COORDINATOR Mikala Best APRN, CNP LAB_1 Performing Organization Address City/[facility]/ZIP Code Phon e Number HP CONVERSION documented in this encounter Visit Diagnoses Not on filedocumented in this encounter Care Teams Mainspring Reverse Winder Relationship Specialty Start Date End Date Mikala Best APRN, CNP PCP - General 07/16/10 02/11/12 [address] [facility] [place] [address] documented as of this encounter
--- OUTSIDE RECORDS SUMMARY | 2022-03-23 17:38 | XMS_ITS | Encounter Summary ---
:1980 Author Organization [facility] Address [address] [place] [address] Care Team Providers Name Role Phone Nasir Mikala URBINA CNP Primary Care Provider [phone] Encounter Details Date Type Department Care Team Description 10/26/2004 PN Conversion Only [facility] [address] [place] [address] Social History Tobacco Use Types Packs/Day Years Used Date Smoking Tobacco: Never Assessed Sex Assigned at Date Recorded Not on file documented as of this encounter Plan of Treatment Not on filedocumented as of this encounter Procedures Procedure Name Priority Date/Time Associated Diagnosis Comme nts US OB LIMITED Routine 10/26/2004 2:57 PM Results for this SINGLE CDT procedure are i n the results section. documented in this encounter Results US OB Limited (10/26/2004 2:57 PM CDT) Anatomical Region Laterality Modality Pelvis Other Specimen (Source) Anatomical Location Collection Method / Collectio n Time Received Time / Laterality Volume Narrative 10/26/2004 2:57 PM CDT There is an early intrauterine . ??The crown-rump length measures 2.9 cm suggesting 9 weeks 5 day s. ??Ultrasound EDC is 05/26/05. ??No gross anomalies. ??Normal cardiac activity was noted at 172 beats per minute. ??The ova sanya are normal bilaterally. [id number] Dictating HANNAH HART RADIOLOGIST Procedure Note Hannah Anderson MD - 06/20/2016 There is an early intrauterine . The crown-rump length measures 2.9 cm suggesting 9 weeks 5 day s. Ultrasound EDC is 05/26/05. No gross anomalies. Normal feta l cardiac activity was noted at 172 beats per minute. The ovari es are normal bilaterally. [id number]/dkd Dictating HANNAH HART RADIOLOGIST Jessica Gimenez APRN, [facility] US documented in this encounter Visit Diagnoses Not on filedocumented in this encounter Care Teams Folder Machine Operator Relationship Specialty Start Date End Date Mikala Best APRN, SHARPLES MACHINE OPERATOR PCP - General 07/16/10 02/11/12 [address] [address] [place] [address] documented as of this encounter
--- OUTSIDE RECORDS SUMMARY | 2022-03-23 17:38 | XMS_ITS | Encounter Summary ---
:1980 Author Organization Department of [facility] rs Address [address] [place] [id number] Support Name Relationship Address Phone LULA GOTTLIEB Unavailable [id number] [place] [address] LULA GOTTLIEB Unavailable [address] [place] [address] Selected Encounter This section includes the information on record at [place] for the Encounter. Date/Time Encounter Type Encounter Reason Provider Source Description Jun 29, 2021 01:49 Outpatient TELEPHONE/ANCILLARY KATY HOLBROOK PM Encounter I[facility] Encounter Template Text not used by [facility] Encounter Notes: All associated encounter notes This section contains the clinical notes associated to the Encounter. Date/Time Encounter Note(s) Provider Source Jun 29, 2021 01:51 PM SHAFTING WORKER [facility] T[facility]: POST-12/23 [facility] CASE MANAGEMENT SCR [facility] STANDARD TITLE: SHAFTING WORKER NOTE DATE OF NOTE: JUN 29, 2021@13:51 ENTRY DATE: JUN 29, 2021@13:51:30 AUTHOR: MICHELLE HOLBROOK EXP COSIGNER: URGENCY: STATUS: COMPLETED Post 12/23 Case Management Screen Unable to Contact Anderson Second attempt to contact patient for Post 12/23 Case Management Screen was unsuccessful. Comment: Unable to mail outreach letter as lluvia torres does not have valid address on file with the [facility]. The following email was sent to : From: Michelle Holbrook Sent: Tuesday, June 29, 2021 1:54 PM To: [email or web address] Subject: HEALTHCARE Shamir - I have tried reaching you via phone to see if you are interested in establishing healthcare through the [place]. We do no t have a valid address on file for you therefore I am unable to mail you a n outreach letter. Please contact me at the number listed below. Very respectfully, Michelle Holbrook Transition Patient Advocate (TPA) Post 12/23 [id number] (M2VA) Case Management Pro gram [place] Department of [facility] ([facility]) [address] [place] [address] ([facility])[place] [address] Work: Program Main Number: Email: /kelly/ MICHELLE HOLBROOK OEF/OIF TRANSITION PATIENT ADVOCATE Signed: 06/29/2021 13:54 Jun 29, 2021 01:49 PM SHAFTING WORKER NOTE: MICHELLE HOLBROOK [facility] LOCAL TITLE: POST-12/23 [facility] CASE MANAGEMENT SCR [facility] STANDARD TITLE: SHAFTING WORKER NOTE DATE OF NOTE: JUN 29, 2021@13:49 ENTRY DATE: JUN 29, 2021@13:49:32 AUTHOR: MICHELLE HOLBROOK EXP COSIGNER: URGENCY: STATUS: COMPLETED Post 12/23 Case Management Screen Unable to Contact Anderson First attempt to contact patient for Post 12/23 Case Management Screen was unsuccessful. Comment: Left detailed message at # [phone] asking to return my call. /kelly/ MICHELLE HOLBROOK OEF/OIF TRANSITION PATIENT ADVOCATE Signed: 06/29/2021 13:50
--- OUTSIDE RECORDS SUMMARY | 2022-03-23 17:39 | XMS_ITS | Encounter Summary ---
:1980 Author Organization Department of [facility] rs Address [address] [place] [id number] Support Name Relationship Address Phone LULA GOTTLIEB Unavailable [id number] [place] [address] LULA GOTTLIEB Unavailable [id number] [place] [address] Selected Encounter This section includes the information on record at [place] for the Encounter. Date/Time Encounter Type Encounter Reason Provider Source Description Jul 06, 2021 03:27 Outpatient TELEPHONE/ANCILLARY KATY HOLBROOK PM Encounter IHE Encounter Template Text not used by ME Encounter Notes: All associated encounter notes This section contains the clinical notes associated to the Encounter. Date/Time Encounter Note(s) Provider Source Jul 06, 2021 03:33 PM TIRE FABRIC INSPECTOR NOTE: REUBEN HOLBROOK [facility] LOCAL TITLE: POST-12/23 [facility] STAND[facility] TITLE: TIRE FABRIC INSPECTOR NOTE DATE OF NOTE: JUL 06, 2021@15:33 ENTRY DATE: JUL 06, 2021@15:33:07 AUTHOR: REUBEN HOLBROOK EXP COSIGNER: URGENCY: STATUS: COMPLETED Post 12/23 Case Management Screen The was contacted by telephone. [place] demographic information has been verkd d as correct. Email Address: [place] was contacted and offered Post 12/23 Case Management Screening. The declined the offer of screening. Does not want healthcare at this time. [place] had a Bad Address Indicator. Valerie BARAJAS updated veterans mailing address in our system. asked how she could get assistance in filing a claim. Told that she would have to contact her CVSO for assistanc e. JENN offered to look the information up on line. stated she had t heir information already and will contact them to get the claim started. /kelly/ REUBEN HOLBROOK OEF/OIF TRANSITION PATIENT ADVOCATE Signed: 07/06/2021 15:35
[2022-03-23] MEDS: KETAMINE HCL 20 MG in 0.9 % SODIUM CHLORIDE 100 ml 100 ML 300.6 MG IVPB (17:58)
[2022-03-23 18:38] VITALS: BP 126/82; PULSE 97; RESP 18; O2SAT 97
[2022-03-23 18:45] VITALS: O2SAT 96
== END 2022-03-23 19:20 | disposition home or self-care (01) ==
PROVIDERS: Emergency Provider Emergency Medicine Emergency Medical Services; PCP Family Medicine
DX: G43.909 Migraine, unspecified, not intractable, without status migrainosus (principal)
CPT/HCPCS: 94761; 96365; 96375; 99284; J1200; J1885; J2405; J3490; J7030

== ENCOUNTER 2022-04-29 14:20 | Outpatient (CLI) | payer OTHER, SELFPAY ==
[2022-04-29 22:30] LABS: Albumin* 4.3 g/dL (3.3-5.0); Chloride* 104 mmol/L (96-114)
[2022-04-29 22:31] LABS: Potassium* 4.1 mmol/L (3.6-5.1); Sodium* 140 mmol/L (135-149)
[2022-04-29 22:33] LABS: Alkaline Phosphatase* 62 U/L (40-150); Aspartate Amino Transferase* 25 U/L (12-35); Bilirubin Total* 0.4 mg/dL (0.1-1.5); Blood Urea Nitrogen* 17 mg/dL (5-24); Carbon Dioxide* 28 mmol/L (20-32); Cholesterol* 238 mg/dL (90-199); Creatinine* 0.8 mg/dL (0.5-1.5); Estimated Glomerular Filt Rate 93 ml/min; Glucose* 125 mg/dL (60-115)
[2022-04-29 22:34] LABS: Alanine Aminotransferase* 22 U/L (4-35); Calcium* 9.5 mg/dL (8.4-10.6); HDL Cholesterol* 69 mg/dL (>=50); LDL Cholesterol Calculated 131 mg/dL (<100); Triglycerides* 192 mg/dL (40-149)
== END 2022-04-29 14:21 | disposition home or self-care (01) ==
PROVIDERS: PCP Family Medicine; Visit Provider Family Medicine
DX: Z00.00 Encounter for general adult medical examination without abnormal findings (principal); E03.9 Hypothyroidism, unspecified; Z13.6 Encounter for screening for cardiovascular disorders
CPT/HCPCS: 80053; 80061; 84443

== ENCOUNTER 2022-05-06 12:41 | Outpatient (CLI) | payer OTHER, SELFPAY ==
[2022-05-06 13:57] LABS: Cholesterol* 245 mg/dL (90-199); HDL Cholesterol* 71 mg/dL (>=50); LDL Cholesterol Calculated 144 mg/dL (<100); Triglycerides* 152 mg/dL (40-149)
[2022-05-07 12:54] LABS: Glucose* 87 mg/dL (60-115)
== END 2022-05-06 12:42 | disposition home or self-care (01) ==
PROVIDERS: PCP Family Medicine; Visit Provider Family Medicine
DX: Z13.6 Encounter for screening for cardiovascular disorders (principal); Z13.1 Encounter for screening for diabetes mellitus
CPT/HCPCS: 80061; 82947

== ENCOUNTER 2022-06-10 09:32 | Outpatient (CLI) | payer OTHER, SELFPAY ==
[2022-06-10 15:35] LABS: Free T4 Free Thyroxine* 0.98 ng/dL (0.70-1.85)
== END 2022-06-10 09:33 | disposition home or self-care (01) ==
PROVIDERS: PCP Family Medicine; Visit Provider Family Medicine
DX: E03.9 Hypothyroidism, unspecified (principal)
CPT/HCPCS: 84439; 84443

== ENCOUNTER 2022-07-20 21:19 | Emergency (ER) | payer OTHER, SELFPAY ==
[2022-07-20 21:28] VITALS: BP 133/75; PULSE 89; RESP 18; TEMP 36.7; O2SAT 99; BMI 29.9
[2022-07-20] MEDS: HYDROmorphone 0.5 mg/0.5 ml inj 1 MG IM (21:59)
--- NOTE | 2022-07-20 22:10 | ED.NURSE ---
Pt c/o pain from injection. No redness or swelling around injection site noted. Pt speaking in complete sentences. Pt states her muscle feels as if it is spasming. Pt given handout of stretches, per MD direction. Pt given d/c instructions and instructions for obtaining [facility] rx. Pt states, Is he giving me a good amount of medication? It needs to be stronger than Vicodin. Pt education given about rx.
--- NOTE | 2022-07-22 11:10 | ED_ITS ---
HPI - General Adult General Chief complaint: Neck Injury/Pain Stated complaint: severe neck and back pain Time Seen by Provider: 07/20/22 21:21 History of Present Illness HPI narrative: 42-year-old woman presenting to the emergency department with approximately 3 weeks of persistent and increasing pain in the upper left shoulder area radiating down into her left arm. She does have a history of a cervical disc replacement but that was many years ago. Recently seen at [facility]. An MRI was done blood work was done. Does not appear to have evidence given normal blood work and MRI imaging of a diskitis or other infectious etiology. She notes some spurring but apparently no actual impingement. She demonstrates a great deal of pain in the left posterior medial deltoid and then behind her arm somewhat as well. She did receive also an injection in what sounds like the C6-C7 area. I presume this was steroid injection. She is desperate for sleep at this point. Worsened again over the last few days. She has received a course of methylprednisolone, now complete as well as Soma. Either this nor ibuprofen or acetaminophen seem to make much difference. She has a lot of tenderness in the upper back musculature and tension. Movement of the neck does not really cause more pain. No rash. No fever. No new injury. She has also been having some discomfort at her left elbow. She does have some pain radiating into her thumb through middle finger I believe. Has seen a chiropractor in briefly feels better upon departure. Is not receiving major cracking of her neck. Has been doing her old neck exercises. Warm and cold packs. Related Data Home Medications Medication Instructions Recorded Confirmed cyclobenzaprine 5 mg tablet 10 mg PO HS PRN 07/20/22 07/20/22 gabapentin 300 mg capsule 300 mg PO 3XD 07/20/22 07/20/22 methocarbamol 500 mg tablet 1,500 mg PO Q8H 07/20/22 07/20/22 Previous Rx's Medication Instructions Recorded spironolactone 50 mg tablet 50 mg PO BID #60 tabs 02/21/22 liothyronine 25 mcg tablet 25 mcg PO QDAY #30 tabs 07/05/22 (Cytomel) Allergies Allergy/AdvReac Type Severity Reaction Status Date / Time zolpidem Allergy Mild Makes her Verified 07/20/22 21:34 porfiiro Review of Systems Status of ROS: Reports: 6 or more systems reviewed and unremarkable except as noted in History and below [facility] Medical History 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 Clearly in moderate distress, very uncomfortable. Becomes somewhat tearful over the course of our visit. Neck is supple. She does have a good deal of tension in some discomfort in the left greater than right lower paracervical musculature. No midline tenderness really. Spurling's is negative although flexion of the head to the right does cause some tingling into her arm. No significant pain to assisted rotation of the left shoulder. She does not have weakness to resisted internal or external rotation and she can internally rotate upper back without significant difficulty. There is a great deal of pain intention to palpation of the left rhomboid musculature and periscapular musculature and a little less so in the right but also present. She also has pain to palpation in the ulnar groove which seems to amplify and cause her to cry some. She has very good armature connector strength though maybe subtly less in the left versus the right. Sensation intact distally. Good pulses/well-perfused. Const: Documenting provider has reviewed patient's vital signs: yes Course Vital Signs Vital signs: Initial Vital Signs Temperature 98.1 F 07/20/22 21:28 Temperature Source Temporal Artery Scan 07/20/22 21:28 Pulse Rate 89 07/20/22 21:28 Respiratory Rate 18 07/20/22 21:28 Blood Pressure 133/75 07/20/22 21:28 Blood Pressure Mean 94 07/20/22 21:28 Blood Pressure Position Sitting 07/20/22 21:28 Pulse Oximetry 99 07/20/22 21:28 Oxygen Delivery Method Room Air 07/20/22 21:28 Vital Signs Temperature 98.1 F 07/20/22 21:28 Pulse Rate 89 07/20/22 21:28 Respiratory Rate 18 07/20/22 21:28 Blood Pressure 133/75 07/20/22 21:28 Pulse Oximetry 99 07/20/22 21:28 Oxygen Delivery Method Room Air 07/20/22 21:28 Temperature 98.1 F 07/20/22 21:28 Pulse Rate 89 07/20/22 21:28 Respiratory Rate 18 07/20/22 21:28 Blood Pressure 133/75 07/20/22 21:28 Pulse Oximetry 99 07/20/22 21:28 Oxygen Delivery Method Room Air 07/20/22 21:28 Medical Decision Making MDM Narrative Medical decision making narrative: I am not convinced this is a cervical radiculopathy. There may have been some facet issue. She does not appear to have a rotator cuff problem either. It really seems that most significant findings are severe tension and spasming of muscle groups in the upper back and trapezius. And then an ulnar neuropathy. Unclear if these are necessarily related. We did discuss pain management. She would want to consider another course of steroid. Would like to receive something here before leaving the department. I offered an injection of Dilaudid. Will continue with short course of Percocet as well just to try to get some control and help this settle down. This would not be a long-term solution. Already has a ?muscle relaxer?. See patient discharge plan Medical Records Medical records reviewed: Yes I reviewed the patient's medical records Discharge Plan Discharge Clinical Impression: Muscle spasm, Radiculitis, Rhomboid muscle pain Patient Disposition: Home w/ Parent or Adult Condition: Stable Additional Instructions: I would call to schedule again with your primary care provider or maybe TRIDayday. I agree with you that there are multiple things going on at this point. Certainly could continue to see your chiropractor. Follow-up with PT as planned. They can also be helpful in achieving a better diagnosis. Consider also acupuncture. It seems that you do not really have a major issue going on in your shoulder joint. It seems that you have some inflammation in the ulnar groove which would contribute to some of the symptoms you are also having in your hand/fingers. See handout for stretches for your upper back/rhomboids. Can continue to take ibuprofen or naproxen; probably should take with a little food. The Percocet can be combined with either of these medications. Percocet from [facility]. You may take 2 of these in addition to the injection you received here once you get home if still needed in an hour. Prescriptions: No Action spironolactone 50 mg tablet 50 mg PO BID Qty: 60 9RF cyclobenzaprine 5 mg tablet 10 mg PO HS PRN Patient Comments: take 1-2 tabs at night to help sleep methocarbamol 500 mg tablet 1,500 mg PO Q8H gabapentin 300 mg capsule 300 mg PO 3XD liothyronine [Cytomel] 25 mcg tablet 25 mcg PO QDAY Qty: 30 1RF Follow Up/Referrals: Medardo Graf MD [Primary Care Provider] - Stand Alone Forms: MyHealth Info Instructions
== END 2022-07-20 22:14 | disposition home or self-care (01) ==
LOC: ED 22:04
PROVIDERS: Emergency Provider Family Medicine; PCP Family Medicine
DX: M62.838 Other muscle spasm (principal); M54.10 Radiculopathy, site unspecified; M79.18 Myalgia, other site
CPT/HCPCS: 96372; 99284; J1170

== ENCOUNTER 2022-07-27 15:12 | Emergency (ER) | payer OTHER, SELFPAY ==
[2022-07-27 15:35] VITALS: BP 138/96; PULSE 89; TEMP 36.3; O2SAT 97; BMI 29.9
[2022-07-27] MEDS: KETOROLAC 30 MG/ML inj IM (16:57)
--- NOTE | 2022-07-27 17:57 | ED_ITS ---
HPI - Neck Pain/Injury General Date Seen: 07/27/22 Chief Complaint: Neck Injury/Pain Stated Complaint: Severe neck and back pain Time Seen by Provider: 07/27/22 15:17 Source: patient Mode of arrival: ambulatory Limitations: no limitations History of Present Illness HPI Narrative: 42-year-old female presents here with left-sided neck discomfort, she has had this now for approximately 1 month, is at her wits end, she says no relief from the current treatments that she has got, she has followed up with [facility] and has a appointment with her surgeon, this Friday. Is been started recently on Lyrica, she was here approximately 10 days ago and received 1 dose of Dilaudid, and a prescription for Percocet. She has had an MRI which she tells me should show anything wrong with her, a CT scan that did show any acute abnormality is scheduled for an EMG coming up here in the next week. 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 No history of fall or injury, denies any fevers chills or sweats no history of malignancy or any other alarm symptoms. Eleven years ago she had disc replacement at C5-C6, she said it was fantastic and done well Dr. Medina he was her surgeon. Related Data Home Medications Medication Instructions Recorded Confirmed cyclobenzaprine 5 mg tablet 10 mg PO HS PRN 07/20/22 07/20/22 gabapentin 300 mg capsule 300 mg PO 3XD 07/20/22 07/20/22 methocarbamol 500 mg tablet 1,500 mg PO Q8H 07/20/22 07/20/22 Previous Rx's Medication Instructions Recorded spironolactone 50 mg tablet 50 mg PO BID #60 tabs 02/21/22 liothyronine 25 mcg tablet 25 mcg PO QDAY #30 tabs 07/05/22 (Cytomel) methylprednisolone 4 mg tablets in See Rx Instructions PO .COMPLEX 07/27/22 a dose pack (Medrol (Richi)) #21 ea Allergies Allergy/AdvReac Type Severity Reaction Status Date / Time zolpidem Allergy Mild Makes her Verified 07/20/22 21:34 porfirio Review of Systems Status of ROS: Reports: 10 or more systems reviewed and unremarkable except as noted in History and below [facility] Medical History 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 - Herpesviral vesicular dermatitis (ICD-10) Hypercholesteremia ?E78.00 - Pure hypercholesterolemia, unspecified (ICD-10) Onychomycosis ?B35.1 - Tinea unguium (ICD-10) Tick bite ?W57.XXXA - Bitten or stung by nonvenomous insect and other nonvenomous arthropods, initial encounter (ICD-10) Social History Smoking Status: Never smoker Do you use any of these nicotine containing products: None Second hand tobacco smoke exposure: No How often do you have a drink containing alcohol: never AUDIT-C Alcohol total score: 0 Non-prescribed substance use: denies use Exam Narrative: Exam Narrative: On examination here she appears to be in some mild distress, she is crying, has her hand over her an up and over her head. This gives her some relief. Her neck has good extension good flexion, with no limitation at 21 cm and 6 cm, right-sided flexion causes pain that comes down her left arm, in a C6 dermatome. To her hand. She also has decreasing right-sided rotation, which also causes discomfort. 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 Muscle bulk looks adequate bilaterally, reflexes are 1/4 overall the reflexes in her upper extremities. Pulses are normal there is no edema. I was able to review her CT scan which showed mild narrowing at C5-C6, and C6- C7, there is lots artifact seen on her MRI, and there is no formal stenosis seen however at C6-C7 C5-C6. All these reports and I could see the actual MRI. Const: Vital Signs, click to edit/add: Vital Signs - 24 hr 07/27/22 15:35 Temperature 97.4 F L Pulse Rate [Pulse Oximeter] 89 Blood Pressure [Ri ght Upper Arm] 138/96 H Pulse Oximetry 97 Oxygen Delivery Me thod Room Air Course Vital Signs Vital signs: Initial Vital Signs Temperature 97.4 F L 07/27/22 15:35 Temperature Source Temporal Artery Scan 07/27/22 15:35 Pulse Rate 89 07/27/22 15:35 Blood Pressure 138/96 H 07/27/22 15:35 Blood Pressure Mean 110 07/27/22 15:35 Blood Pressure Position Sitting 07/27/22 15:35 Pulse Oximetry 97 07/27/22 15:35 Oxygen Delivery Method Room Air 07/27/22 15:35 Vital Signs Temperature 97.4 F L 07/27/22 15:35 Pulse Rate 89 07/27/22 15:35 Blood Pressure 138/96 H 07/27/22 15:35 Pulse Oximetry 97 07/27/22 15:35 Oxygen Delivery Method Room Air 07/27/22 15:35 Temperature 97.4 F L 07/27/22 15:35 Pulse Rate 89 07/27/22 15:35 Blood Pressure 138/96 H 07/27/22 15:35 Pulse Oximetry 97 07/27/22 15:35 Oxygen Delivery Method Room Air 07/27/22 15:35 MDM - Neck Pain/Injury MDM Narrative Medical decision making narrative: I discussed with her, that I do not think this is related to a blood clot, I believe this is a cervical radiculopathy likely C6, given the fact that there artifact would make the MRI really unreadable, there still could be a significant radiculopathy there. I would recommend that we try Medrol Dosepak and Toradol, reviewing the NUT RO[employer]ER she only has 2 prescriptions for narcotics, she does get some relief with the Percocet given her lack of sleep, I would feel comfortable giving her a prescription for 10 tablets. I explained her though ongoing prescriptions from the ER will not be given now, she should follow-up with her primary care physician, or her surgical team. Orthopedics. Continue on with Jerry, and get the EMG. I would not do any imaging today, in fact which she does need is a CT myelogram of her cervical spine. Medical Records Attestation: I reviewed the patient's medical records. Discharge Plan Discharge Clinical Impression: Cervical radiculopathy at C6 Patient Disposition: Home, Self-Care Instructions: Cervical Disc Herniation (ED), Neck Pain (ED) Additional Instructions: I sympathize with your pain, would recommend that we try the Medrol Dosepak again, I will give you 10 tablets of Percocet, but then you will need to follow- up with either your spine surgeon or your primary care physician, as the pain management should come from them. Continue taking your lyrica, where the physician was the prescribed that they often can increase the dosage show please call on Friday. Ice is also helpful. Activity Level: No Restrictions Prescriptions: New methylprednisolone [Medrol (Richi)] 4 mg tablets,dose pack See Rx Instructions .ROUTE .COMPLEX Qty: 21 0RF Rx Instructions: orally per package directions No Action spironolactone 50 mg tablet 50 mg PO BID Qty: 60 9RF cyclobenzaprine 5 mg tablet 10 mg PO HS PRN Patient Comments: take 1-2 tabs at night to help sleep methocarbamol 500 mg tablet 1,500 mg PO Q8H gabapentin 300 mg capsule 300 mg PO 3XD liothyronine [Cytomel] 25 mcg tablet 25 mcg PO QDAY Qty: 30 1RF Follow Up/Referrals: Medardo Graf MD [Primary Care Provider] - Stand Alone Forms: [employer] Info Instructions
== END 2022-07-27 17:04 | disposition home or self-care (01) ==
PROVIDERS: Emergency Provider Family Medicine; PCP Family Medicine
DX: M54.12 Radiculopathy, cervical region (principal)
CPT/HCPCS: 96372; 99283; 99284; J1885

== ENCOUNTER 2022-07-30 09:57 | Outpatient (CLI) | payer OTHER, SELFPAY | END 2022-07-30 09:58 | disposition home or self-care (01) | PROVIDERS: PCP Family Medicine; Visit Provider Family Medicine | DX: E78.00 Pure hypercholesterolemia, unspecified (principal); E73.9 Lactose intolerance, unspecified; E03.9 Hypothyroidism, unspecified; R53.83 Other fatigue; F41.8 Other specified anxiety disorders; Z79.899 Other long term (current) drug therapy | CPT/HCPCS: 80048; 84443; 86140 ==

== ENCOUNTER 2022-09-26 18:25 | Emergency (ER) | payer OTHER, SELFPAY ==
[2022-09-26 18:32] VITALS: BP 152/91; PULSE 89; RESP 18; TEMP 36.9; O2SAT 95; BMI 31.2
--- NOTE | 2022-09-26 18:48 | ED.HA ---
HPI - Headache General Chief Complaint: Headache/Migraine Stated Complaint: Severe Head Pain and Nausea Time Seen by Provider: 09/26/22 18:37 History of Present Illness HPI Narrative: This 42-year-old female comes in with a headache that began this morning. She has chronic neck pain in is scheduled for a diskectomy in 11 days. She states that she normally does not get headaches related to her neck pain but does report pain in her neck and pain in the right side of her head. She has had some nausea and vomiting. She does not have any neurologic deficits. Related Data Previous Rx's Medication Instructions Recorded spironolactone 50 mg tablet 50 mg PO BID #60 tabs 02/21/22 liothyronine 25 mcg tablet 25 mcg PO QDAY #90 tabs 08/01/22 (Cytomel) ketorolac 10 mg tablet 10 mg PO TID 5 days #15 tabs 09/26/22 Allergies Allergy/AdvReac Type Severity Reaction Status Date / Time zolpidem Allergy Mild Makes her Verified 08/28/22 12:33 porfirio Review of Systems Status of ROS: Reports: 10 or more systems reviewed and unremarkable except as noted in History and below Narrative: Constitutional: No fevers, no weight gain or loss. Eyes: No discharge. No vision changes. HENT: No congestion, no sore throat, no ear pain. Cardiovascular: No chest pain, no palpitations. Respiratory: No shortness of breath, no wheezes, no cough. Gastrointestinal: No abdominal pain, no diarrhea. Nausea and vomiting related to headache. Genitourinary: No dysuria, no hematuria. Musculoskeletal: Normal range of motion. Skin: No rashes, no pruritis. Neurological: No dizziness, weakness, sensory change, speech change. Endo/Heme/Allergies: No bruising or bleeding. No polydipsia. Pysch: no suicidality, no anxiety, no insomnia. All other systems reviewed and are negative. [facility] Medical History (Updated 09/26/22 @ 20:36 by Jayden Jameson MD) Sore throat ?J02.9 - Acute pharyngitis, unspecified (ICD-10) High risk medication use ?Z79.899 - Other [place] [facility] (current) drug therapy (ICD-10) 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 - Herpesviral vesicular dermatitis (ICD-10) Hypercholesteremia ?E78.00 - Pure hypercholesterolemia, unspecified (ICD-10) Tick bite ?W57.XXXA - Bitten or stung by nonvenomous insect and other nonvenomous arthropods, initial encounter (ICD-10) Onychomycosis ?B35.1 - Tinea unguium (ICD-10) Social History Smoking Status: Never smoker Do you use any of these nicotine containing products: None Second hand tobacco smoke exposure: No How often do you have a drink containing alcohol: never AUDIT-C Alcohol total score: 0 Non-prescribed substance use: denies use Exam Narrative: Exam Narrative: Constitutional: Well-developed, well-nourished, no acute distress. HEENT: Normocephalic, atraumatic. Neck: Normal range of motion. Chronic pain in the neck. Heart: Intact distal pulses. Lungs: No chest discomfort. No wheezes, rhonchi, or rales. Abdomen: Nontender. Back: Normal range of motion. Extremities: Normal range of motion. No injury. Skin: Intact. No rash. Warm. No erythema or pallor. Neurologic: No altered sensation. No weakness. Alert and oriented. Psychiatric: No suicidality. No anxiety or depression. No insomnia. Nursing notes and vitals signs are reviewed. Const: Vital Signs, click to edit/add: Vital Signs - 24 hr 09/26/22 18:32 Temperature 98.5 F Pulse Rate [Right Pulse Oximeter] 89 Respiratory Rate 18 Blood Pressure [Ri ght Upper Arm] 152/91 H Pulse Oximetry 95 Oxygen Delivery Me thod Room Air Course Vital Signs Vital signs: Initial Vital Signs Temperature 98.5 F 09/26/22 18:32 Temperature Source Temporal Artery Scan 09/26/22 18:32 Pulse Rate 89 09/26/22 18:32 Respiratory Rate 18 09/26/22 18:32 Blood Pressure 152/91 H 09/26/22 18:32 Blood Pressure Mean 111 H 09/26/22 18:32 Blood Pressure Position Sitting 09/26/22 18:32 Pulse Oximetry 95 09/26/22 18:32 Oxygen Delivery Method Room Air 09/26/22 18:32 Vital Signs Temperature 98.5 F 09/26/22 18:32 Pulse Rate 89 09/26/22 18:32 Respiratory Rate 18 09/26/22 18:32 Blood Pressure 152/91 H 09/26/22 18:32 Pulse Oximetry 95 09/26/22 18:32 Oxygen Delivery Method Room Air 09/26/22 18:32 Temperature 98.5 F 09/26/22 18:32 Pulse Rate 89 09/26/22 18:32 Respiratory Rate 18 09/26/22 18:32 Blood Pressure 152/91 H 09/26/22 18:32 Pulse Oximetry 95 09/26/22 18:32 Oxygen Delivery Method Room Air 09/26/22 18:32 MDM - Headache MDM Narrative Medical decision making narrative: This patient comes in with migraine-type headache. She also has chronic neck pain in is due for surgery in in 11 days. She is not showing any neurologic deficit or cause of a headache that would require further diagnostic workup. An IV was established where she received 30 mg of Toradol, Zofran 4 mg, and Benadryl 50 mg. This helped with nausea symptoms but she still continued to have significant headache. She then received a low dose of ketamine 20 mg infused over 20 minutes which brought great relief to her headache. She is okay to be discharged home. She did receive a prescription for Toradol and was instructed not to take this within a week of her planned surgery. Discharge Plan Discharge Clinical Impression: Migraine Patient Disposition: Home w/ Parent or Adult Condition: Improved Additional Instructions: Take medication as needed and directed. Follow up with MD as scheduled or return if worsening. Prescriptions: New ketorolac 10 mg tablet 10 mg PO TID 5 Days Qty: 15 0RF No Action spironolactone 50 mg tablet 50 mg PO BID Qty: 60 9RF liothyronine [Cytomel] 25 mcg tablet 25 mcg PO QDAY Qty: 90 1RF Follow Up/Referrals: Medardo Graf MD [Primary Care Provider] - Stand Alone Forms: [employer] Info Instructions
--- OUTSIDE RECORDS SUMMARY | 2022-09-26 18:57 | XMS_ITS | Continuity of Care Document ---
Author Name Unknown Organization [facility] Address [address] [place] [address] Phone Care Team Providers Care Extract Wringer Name Role Phone Ulises Medina MD Unavailable Unavailable Allergies, Adverse Reactions, Alerts Substance Reaction Status Criticality ZOLPIDEM TARTRATE Active No Informa tion Medications Medication Instructions Dosage Effective Dates (start - stop) Status Comments LYRICA (unknown strength) Not Available - No Longer Active PERCOCET (unknown strength) Not Available - No Longer Active SPIRONOLACTONE (unknown strength) Not Available - No Longer Active Procedures Procedure Date Pre Op Office/Outpatient Visit, 023 Office/Outpatient Visit,Est, Mod 2022 X-Ray Exam Of Neck Spine, 4+ Views Office/Outpatient Visit,New, [facility] 2022 Office/Outpatient Visit,New, [facility] 2017 Office/Outpatient Visit,Est, [facility] 2013 Postop Followup Visit X-Ray Exam Of Neck Spine, 4+ Views Postop Followup Visit X-Ray Exam Of Neck Spine, 4+ Views Postop Followup Visit Postop Followup Visit X-Ray Exam Of Neck Spine2-3 Views Cerv Artifical Disk Replacement 012 Pa Cerv Artifical Disk Replacement Office/Outpatient Visit,Est, Mod 2011 Office/outpatient visit,new, mod 2010 X-ray exam of neck spine2-3 views Advance Directives Directive Yes / No Effective Date File Name No Information Encounters Encounter Description Practice Location Reason(s) For Visit Diagnoses Date Provider Providers Copied on Encounter Pre Op Office/Outpa tient Visit, [facility], [address], [place], [place], [id number], [place] [phone] [facility] Radiculopathy, cervical regionCervical disc disorder with myelopathy, cervicothoraci c regionWeakness 3 Adam Montgomery. [facility], [address], [place], [place], [address] , [place]. [phone] Referring Provider: Ulises Medina, [facility] [address], [place], [address] . tel:[phone] Office/Outpa tient Visit,Est, Mod [facility], [address], [place], [place], [address], [place] [phone] [facility] Radiculopathy, cervical regionCervical disc disorder with myelopathy, cervicothoraci c regionWeakness 3 Ed Tucker. [facility], [address], [place], [address], [place]. [phone] Referring Provider: Ulises Medina, [facility] [address], [place], [address] . tel:[phone] Office/Outpa tient Visit,New, Mod [facility], [address], [place], [place], [address], [place] tel:[phone] [facility] Radiculopathy, cervical regionEncounte r for follow-up examination after completed treatment for conditions other than malignant neoplasm 3 Ed Tucker. [facility], [address], [place], [address], [place]. tel:[phone] Referring Provider: Ulises Medina, [facility] [address], [facility] [place], [address] . tel:[phone] Office/Outpa tient Visit,New, Mod [facility], [address], [place], [place], [address], [place] tel:[phone] [facility] [place] Arthrodesis status 8 Artur Chong. [facility], [address], [place], [place], [address] , [place]. tel: [phone] Referring Provider: Ulises Medina, [facility] [address], [facility] [place], [address] . tel:[phone] Office/Outpa tient Visit,Est, Mod Z [facility], [address], [place], [address], [place] tel:[phone] [facility] [place] No Information 4 Artur Chong. [facility], [address], [place], [place], [address] , [place]. tel:[phone] Referring Provider: Ulises Medina, [facility] [address], [place], [address] . tel:[phone] Z [facility], [address], [place], [address], [place] tel:[phone] [facility] - [facility] BRACHIAL NEURITIS NOSARTHRODESIS STATUS 4 Adam Montgomery. [facility], [address], [place], [place], [address] , [place]. tel: [phone] Z [facility], [address], [place], [address], [place] tel:[phone] [facility] - [place] No Information 2 Adam Montgomery. [facility], [address], [place], [place], [address] , [place]. tel:[phone] Referring Provider: Ulises Medina, [facility] [address], [facility] [place], [address] . tel:[phone] Z [facility], [address], [place], [address], [place] tel:[phone] [facility] No Information Mar-2 2-201 2 Adam Montgomery. [facility], [address], [facility] [place], [address] , [place]. tel:[phone] Referring Provider: Ulises Medina, [facility] [address], [facility] [place], [address] . tel:[phone] Z [facility], [address], [place], [address], [place] tel:[phone] [facility] No Information Mar-1 4-201 2 Artur Chong. [facility], [address], [place], [place], [address] , [place]. tel:[phone] Referring Provider: Primary Care Doctor No. Z [facility], [address], [place], [address], [place] tel:[phone] [facility] Headache Mar-0 7-201 2 Artur Chong. [facility], [address], [place], [place], [address] , [place]. tel:[phone] Referring Provider: Ulises eMdina, [facility] [address], [facility] [place], [address] . tel:[phone] Z [facility], [address], [place], [address], [place] tel:[phone] [facility] No Information Mar-0 5-201 2 Adam Montgomery. [facility], [address], [facility] [place], [address] , [place]. tel:[phone] Referring Provider: Ulises Medina, [facility] [address], [place], [address] . tel:[phone] Z [facility], [address], [place], [address], [place] tel:[phone] [facility] No Information 2 Adam Montgomery. [facility], [address], [place], [place], [address] , [place]. tel: [phone] Office/Outpa tient Visit,[facility], Mod Z [facility], [address], [place], [address], [place] tel:[phone] [facility] No Information 2 Adam Montgomery. [facility], [address], [place], [place], [address] , [place]. tel:[phone] Referring Provider: Ulises Medina, [facility] [address], [place], [address] . tel:[phone] Office/outpa tient visit,[facility], mod Z [facility], [address], [place], [address], [place] tel:[phone] [facility] No Information 1 Adam Montgomery. [facility], [address], [place], [place], [address] , [place]. tel:[phone] Referring Provider: Ulises Medina, [facility] [address], [place], [address] . tel:[phone] Family History Family Member Type Diagnosis Age At Onset Father Problem (finding) coronary arterioscleros is Father Problem (finding) raised blood lipids Mother Problem (finding) raised blood lipids Payers Payer name Insurance type Covered constitution party ID Mohamud bertrandjenny(s) [facility] [id number] Social History Type Description Quantity Date Captured Comments Alcohol Use Details Unknown Caffeine Use Details Unknown Tobacco Use Status Never smoked tobacco 2022 Smoking Status Never smoker Non-Smoking Tobacco Use Details : No Details Available : No Details Available Sex Female Vital Signs Date / Time: Height Weight BMI Pulse Rate Blood Pressure Temperature Respiratory Rate Body Surface Area Head Circumference Head Circ. Percentile Wt./John. Percentile BMI percentile Pulse Ox Inhaled Ox 11:43 AM 66.00 in 77.111 kg (170.00 lbs) 27.4 4 kg/m eter (2) Chief Complaint And Reason For Visit No Information Reason For Referral Reason For Referral No Information Plan Of Treatment Date Type Action Status Appointment Lacey Nolasco BOOKED Appointment Lacey Nolasco BOOKED Appointment Lacey Nolasco BOOKED Appointment Lacey Nolasco BOOKED Future Order: Radiology Order Ce rvical 4 Or 5 Views ([id number]), Ordered on: Ordered Future Order: Radiology Order AP Lateral Cervical (APlatcerv), Ordered on: Ordered Future Order: Radiology Order F/ E Cervical (F/Ecervical), Ordered on: Ordered History Of Present Illness Encounter Date Complaint History Of Prese nt Illness No Information Functional Status Date Functional Assessmen t No Information Medications Administered Medication Instructions Dosage Effective Dates (start - stop) Status Comments No Drug Therapy Prescribed Instructions Date Instruction Additional Infor mation No Information Assessments Type Assessment Date assessment Radiculopathy, cervical region J assessment Cervical disc disorder with myel opathy, cervicothoracic region assessment Weakness Patient Care Teams Name Effective Dates (start - stop) Status Members No Information
[2022-09-26] MEDS: 0.9 % SODIUM CHLORIDE 1000 ml 1,000 ML IV (19:15)
[2022-09-26] MEDS: KETOROLAC 30 MG/ML inj IVP (19:15)
[2022-09-26] MEDS: diphenhydrAMINE 50 MG/ML inj IVP (19:15)
[2022-09-26] MEDS: ONDANSETRON 2 MG/ML inj 4 MG IVP (19:15)
[2022-09-26] MEDS: KETAMINE HCL 20 MG in 0.9 % SODIUM CHLORIDE 100 ml 100 ML 300.6 MG IVPB (20:15)
== END 2022-09-26 20:44 | disposition home or self-care (01) ==
PROVIDERS: Emergency Provider Emergency Medicine Emergency Medical Services; PCP Family Medicine
DX: G43.909 Migraine, unspecified, not intractable, without status migrainosus (principal)
CPT/HCPCS: 96365; 96375; 99284; J1200; J1885; J2405; J3490; J7030

== ENCOUNTER 2022-09-27 10:40 | Outpatient (CLI) | payer OTHER, SELFPAY ==
--- OUTSIDE RECORDS SUMMARY | 2022-09-30 08:55 | XMS_ITS | Continuity of Care Document ---
Author Name Unknown Organization [facility] Address [address] [place] [address] Phone Care Team Providers Care Program Aide Name Role Phone Adam AGUILA, Ulises Unavailable Unavailable Allergies, Adverse Reactions, Alerts Substance Reaction Status Criticality ZOLPIDEM TARTRATE Active No Informa tion Medications Medication Instructions Dosage Effective Dates (start - stop) Status Comments No Drug Therapy Prescribed Procedures Procedure Date Pre Op Office/Outpatient Visit, 023 Office/Outpatient Visit,Est, Mod 2022 X-Ray Exam Of Neck Spine, 4+ Views Office/Outpatient Visit,New, Mod 2022 Office/Outpatient Visit,New, Mod 2017 Office/Outpatient Visit,Est, Mod 2013 Postop Followup Visit X-Ray Exam Of [...] Diagnoses Date Provider Providers Copied on Encounter [facility], [address], [place], [place], [address], [place] tel: [phone] [facility] No Information 3 Adam Montgomery. [facility], [address], [place], [place], [address] , [place]. tel: [phone] Pre Op Office/Outpa tient Visit, [facility], [address], [place], [place], [id number], [place] tel: [phone] [facility] Radiculopathy, cervical regionCervical disc disorder with myelopathy, cervicothoraci c regionWeakness 3 Adam Montgomery. [facility], [address], [place], [place], [address] , [place]. tel:[phone] Referring Provider: Ulises Medina, [facility] [address], [place], [address] . tel:[phone] Office/Outpa tient Visit,Est, Mod [facility], [address], [place], [place], [address], [place] tel:[phone] [facility] Radiculopathy, cervical regionCervical disc disorder with myelopathy, cervicothoraci c regionWeakness 3 Ed Tucker. [facility], [address], [place], [address], [place]. [phone] Referring Provider: Ulises Medina, [facility] [address], [place], [address] . tel:[phone] Office/Outpa tient Visit,New, Mod [facility], [address], [place], [place], [address], [place] tel:[phone] [facility] Radiculopathy, cervical regionEncounte r for follow-up examination after completed treatment for conditions other than malignant neoplasm 3 Ed uTcker. [facility], [address], [place], [address], [place]. tel: [phone] Referring Provider: Ulises Medina, [facility] [address], [place], [address] . tel:[phone] Office/Outpa tient Visit,New, Mod [facility], [address], [place], [place], [address], [place] tel:[phone] [facility] Arthrodesis status 8 Artur Chong. [facility], [address], [place], [place], [address] , [place]. tel: [phone] Referring Provider: Ulises Medina, [facility] [address], [place], [address] . tel:[phone] Office/Outpa tient Visit,Est, Mod Z [facility], [address], [place], [address], [place] tel:[phone] [facility] No Information 4 Artur Chong. [facility], [address], [place], [place], [address] , [place]. tel: [phone] Referring Provider: Ulises Medina, [facility] [address], [place], [address] . tel:[phone] Z [facility], [address], [place], [address], [place] tel:[phone] [facility] BRACHIAL NEURITIS NOSARTHRODESIS STATUS 4 Adam Montgomery. [facility], [address], [place], [place], [address] , [place]. tel: [phone] Z [facility], [address], [place], [address], [place] tel:[phone] [facility] No Information 9-201 2 Adam oMntgomery. [facility], [address], [place], [place], [address] , [place]. tel: [phone] Referring Provider: Ulises Medina, [facility] [address], [place], [address] . tel:[phone] Z [facility], [address], [place], [address], [place] tel:[phone] [facility] No Information Mar-2 2-201 2 Adam Montgomery. [facility], [address], [place], [place], [address] , [place]. tel: [phone] Referring Provider: Ulises Medina, [facility] [address], [place], [address] . tel:[phone] Z [facility], [address], [place], [address], [place] tel:[phone] [facility] No Information Jun-1 4-201 2 Artur Chong. [facility], [address], [place], [place], [address] , [place]. tel: [phone] Referring Provider: Primary Care Doctor No. Z [facility], [address], [place], [address], [place] tel:[phone] [facility] Headache Mar-0 7-201 2 Artur Chong. [facility], [address], [place], [place], [address] , [place]. tel:[phone] Referring Provider: Ulises Medina, [facility] [address], [place], [address] . tel:[phone] Z [facility], [address], [place], [address], [place] tel:[phone] [facility] No Information Mar-0 5-201 2 Adam Montgomery. [facility], [address], [place], [place], [address] , [place]. tel: [phone] Referring Provider: Ulises Medina, [facility] [address], [place], [address] . tel:[phone] Z [facility], [address], [place], [address], [place] tel:[phone] [facility] No Information 0 2 Adam Montgomery. [facility], [address], [place], [place], [address] , [place]. tel: [phone] Office/Outpa tient Visit,[facility], Mod Z [facility], [address], [place], [address], [place] tel:[phone] [facility] No Information 2 Adam Montgomery. [facility], [address], [place], [place], [address] , [place]. tel: [phone] Referring Provider: Ulises Medina, [facility] [address], [place], [address] . tel:[phone] Office/outpa tient visit,[facility], mod Z [facility], [address], [place], [address], [place] tel:[phone] [facility] No Information 1 Adam Montgomery. [facility], [address], [place], [place], [address] , [place]. tel:[phone] Referring Provider: Ulises Medina, [facility] [address], [place], [address] . tel:[phone] Family History Family Member Type Diagnosis Age At Onset Father Problem (finding) coronary arterioscleros is Father Problem (finding) raised blood lipids Mother Problem (finding) raised blood lipids Payers Payer name Insurance type Covered libertarian ID Mohamud arambula(s) [employer] [id number] Social History Type Description Quantity Date Captured Comments Sex Female Smoking Status No Information Chief Complaint And Reason For Visit No [...] mation No Information Assessments Type Assessment Date No Information Patient Care Teams Name Effective Dates (start - stop) Status Members No Information
== END 2022-09-27 10:41 | disposition home or self-care (01) ==
LOC: NFLDREF 09-30 08:53
PROVIDERS: PCP Family Medicine; Referring Provider Family Medicine; Visit Provider Physician Assistant Medical
DX: Z01.818 Encounter for other preprocedural examination (principal); E03.9 Hypothyroidism, unspecified
CPT/HCPCS: 84443

== ENCOUNTER 2022-10-24 08:06 | Outpatient (CLI) | payer OTHER, SELFPAY ==
--- OUTSIDE RECORDS SUMMARY | 2022-10-24 08:09 | XMS_ITS | Continuity of Care Document ---
Author Name Unknown Organization [facility] Address [address] [place] [address] Phone Care Team Providers Care Vice President [employer] Name Role Phone Adam AGUILA, Ulises Unavailable Unavailable Allergies, Adverse Reactions, Alerts Substance Reaction Status Criticality ZOLPIDEM TARTRATE Active No Informa tion Medications Medication Instructions Dosage Effective Dates (start - stop) Status Comments No Drug Therapy Prescribed Procedures Procedure Date Arthroplasty, Cervical - PA Arthroplasty, Cervical Pre Op Office/Outpatient Visit, 023 Office/Outpatient Visit,Est, [...] Copied on Encounter [facility], [address], [place], [place], [address], [place] tel:[phone] [facility] No Information 3 Adam Montgomery. [facility], [address], [place], [place], [address] , [place]. tel: [phone] [facility], [address], [place], [place], [address], [place] tel: [phone] [facility] No Information 3 Artur Chong. [facility], [address], [place], [place], [address] , [place]. tel: [phone] Referring Provider: Ulises Medina, [facility] [address], [place], [address] . tel:[phone] [facility], [address], [place], [place], [address], [place] tel: [phone] [facility] No Information 3 Adam Montgomery. [facility], [address], [place], [place], [address] , [place]. tel: [phone] Referring Provider: Ulises Medina, [facility] [address], [place], [address] . tel:[phone] Pre Op Office/Outpa tient Visit, [facility], [address], [place], [place], [address], [place] tel: [phone] [facility] Radiculopathy, cervical regionCervical disc disorder with myelopathy, cervicothoraci c regionWeakness 3 Adam Montgomery. [facility], [address], [place], [place], [address] , . tel: [phone] Referring Provider: Ulises Medina, [facility] [address], [place], [address] . tel:[phone] Office/Outpa tient Visit,Est, Mod [facility], [address], [place], [place], [address], [place] tel:[phone] [facility] Radiculopathy, cervical regionCervical disc disorder with myelopathy, cervicothoraci c regionWeakness 3 Ed Tucker. [facility], [address], [place], [address], [place]. tel: [phone] Referring Provider: Ulises Medina, [facility] [address], [place], [address] . tel:[phone] Office/Outpa tient Visit,New, Mod [facility], [address], [place], [place], [address], [place] tel:[phone] [facility] Radiculopathy, cervical regionEncounte r for follow-up examination after completed treatment for conditions other than malignant neoplasm 3 Edvivian Tucker. [facility], [address], [place], [address], [place]. tel: [phone] Referring Provider: Ulises Medina, [facility] [address], [place], [address] . tel:[phone] Office/Outpa tient Visit,New, Mod [facility], [address], [place], [place], [address], [place] tel:[phone] [facility] [place] Arthrodesis status 8 Artur Chong. [facility], [address], [place], [place], [address] , [place]. tel: [phone] Referring Provider: Ulises Medina, [facility] [address], [place], [address] . tel:[phone] Office/Outpa tient Visit,Est, Mod Z [facility], [address], [place], [address], [place] tel:[phone] [facility] No Information 4 Artur Chong. [facility], [address], [place], [place], [address] , [place]. tel: [phone] Referring Provider: Ulises Medina, [facility] [address], [place], [address] . tel:[phone] Z [facility], [address], [place], [address], [place] tel:[phone] [facility] BRACHIAL NEURITIS NOSARTHRODESIS STATUS 4 Adam Montgomery. [facility], [address], [place], [place], [address] , [place]. tel: [phone] Z [facility], [address], [place], [address], [place] tel:[phone] [facility] No Information 2 Adam Montgomery. [facility], [address], [place], [place], [address] , [place]. tel: [phone] Referring Provider: Ulises Medina, [facility] [address], [place], [address] . tel:[phone] Z [facility], [address], [place], [address], [place] tel:[phone] [facility] No Information 2 Adam Montgomery. [facility], [address], [place], [place], [address] , [place]. tel: [phone] Referring Provider: Ulises Medina, [facility] [address], [place], [address] . tel:[phone] Z [facility], [address], [place], [address], [place] tel:[phone] [facility] No Information Mar-1 4201 2 Artur hCong. [facility], [address], [place], [place], [address] , [place]. tel: [phone] Referring Provider: Primary Care Doctor No. Z [facility], [address], [place], [address], [place] tel:[phone] [facility] Headache Mar-0 7-201 2 Artur Chong. [facility], [address], [place], [place], [address] , [place]. tel: [phone] Referring Provider: Ulises Medina, [facility] [address], [place], [address] . tel:[phone] Z [facility], [address], [place], [facility], [place] tel:[phone] [facility] No Information Mar-0 5-201 2 Adam Montgomery. [facility], [address], [place], [place], [address] , [place]. tel: [phone] Referring Provider: Ulises Medina, [facility] [address], [place], [address] . tel:[phone] Z [facility], [address], [place], [address], [place] tel:[phone] [facility] No Information Mar-0 5-201 2 Adam Montgomery. [facility], [address], [place], [place], [address] , [place]. tel:[phone] Office/Outpa tient Visit,Est, Mod Z [facility], [address], [place], [address], [place] tel:[phone] [facility] No Information Feb-0 9-201 2 Adam Montgomery. [facility], [address], [place], [place], [address] , . [phone] Referring Provider: Ulises Medina, [facility] [address], [place], [address] . tel:[phone] Office/outpa tient visit,[facility], [facility] Z [facility], [address], [place], [address], [place] [phone] [facility] No Information 1 Adam Montgomery. [facility], [address], [place], [place], [address] , . [phone] Referring Provider: Ulises Medina, [facility] [address], [place], [address] . tel:[phone] Family History Family Member Type Diagnosis Age At Onset Father Problem (finding) coronary arterioscleros is Father Problem (finding) raised blood lipids Mother Problem (finding) raised blood lipids Payers Payer name Insurance type Covered green party ID Authorcarlaa tyesha(s) [employer] CI [id number] Social History Type Description Quantity Date Captured Comments Alcohol Use Details Unknown Caffeine Use Details Unknown Tobacco Use Status No Information Smoking Status No Information Sex Female Chief Complaint And Reason For Visit No [...]
[2022-10-24 13:53] LABS: Chlamydia DNA Amplified* NOT DETECTED (No Detected); GC DNA Amplified* NOT DETECTED (No Detected)
== END 2022-10-24 08:07 | disposition home or self-care (01) ==
PROVIDERS: PCP Family Medicine; Visit Provider Physician Assistant Medical
DX: Z11.3 Encounter for screening for infections with a predominantly sexual mode of transmission (principal)
CPT/HCPCS: 86592; 86703; 86803; 87252; 87491; 87529; 87591

== ENCOUNTER 2023-05-08 09:36 | Outpatient (CLI) | payer BC, SELFPAY ==
--- OUTSIDE RECORDS SUMMARY | 2023-05-08 09:43 | XMS_ITS | Encounter Summary ---
Author Name Unknown Organization [facility] Address [facility] [place] [address] Care Team Providers Care Ticket Dispatcher Name Role Phone Medardo Graf MD Primary Care Provider [phone] Noelle Khan MD Unavailable [phone] Umu Duke MD Unavailable [phone] Umu Duke MD Unavailable [phone] Encounter Details Date Type Department Care Team (Late st Contact Info) Description 07/06/2020 MyC Medical Advice [facility] [address] [facility] [address] [place] [address] Umu Duke MD [address] [facility] [address] [place] [address] Social History Tobacco Use Types Packs/Day Years Used Date Smoking Tobacco: Never Smokeless Tobacco: Never Alcohol Use Standard Drinks/Week Comments Yes 0 (1 standard drink = 0.6 oz pur e alcohol) occas AUDIT-C Answer Date Recorded Q1: How often do you have a drink containing alc ohol? 2-4 times a month 04/21/2019 Q2: How many drinks containi ng alcohol do you have on a typical day when you are drinking? 1 or 2 04/21/2019 Frequency of Binge Drinking Not on file 11/2019 PHQ-2 Answer Date Recorded PHQ-2 Score 0 06/01/2020 Sex and Gender Information Value Date Recorded Sex Assigned at Not on file Gender Identity Not on file Sexual Orientation Not on file COVID-19 Exposure Response Date Recorded In the last month, have you been in contact with someone who was confirmed or suspected to have Coronavirus / COVID-19? No / Unsure 06/11/2020 8:16 AM JANITORIAL MANAGER documented as of this encounter Plan of Treatment Not on file documented as of this encounter Visit Diagnoses Not on filedocumented in this encounter Additional Health Concerns Infection Onset Date Last Indicated Resolved Time Influenza 04/04/2021 04/04/2021 04/11/2021 11:4 1 PM JANITORIAL MANAGER Assessment Noted Time PHQ-9 Depression Total Score: 2 06/01/19 21 1:03 PM JANITORIAL MANAGER documented as of this encounter Care Teams Ticket Dispatcher Relationship Specialty Start Date End Date Medardo Graf MD PCP - General Family Practice 11/15/18 Noelle Khan MD [facility] [address] [place] [address] Assigned Pulmonology Provider 02/04/20 11/09/21 Umu Duke MD [address] [place], [place] [address] computer scientist 03/16/20 Umu Duke MD [address] [place], [place] [address] Assigned OBGYN Provider 06/04/2002/01 documented as of this encounter
--- OUTSIDE RECORDS SUMMARY | 2023-05-08 09:43 | XMS_ITS | Encounter Summary ---
Author Name Unknown Organization [facility] Address [address] [place] [address] Care Team Providers Care Integrated Pest Management Technician Name Role Phone Needs Pcp, Assignment Primary Care Provider Reason for Visit * Reason Comments Spine Cervical Encounter Details Date Type Department Care Team Description 09/12/2022 9:15 AM CDT Therapy [facility] [address] [id number] [place] [address] [place], [place] [phone] Cervical radiculopathy (Primary Dx) Social History Tobacco Use Types Packs/Day Years Used Date Smoking Tobacco: Never Smokeless Tobacco: Never Alcohol Use Standard Drinks/Week Comments Yes 1 (1 standard drink = 0.6 oz pur e alcohol) PHQ-2 Answer Date Recorded PHQ-2 Score 0 12/21/2019 Sex and Gender Information Value Date Recorded Sex Assigned at Not on file Gender Identity Not on file Sexual Orientation Not on file documented as of this encounter Progress Notes * Srikanth lFetcher, PT - 09/12/2022 9:15 AM CDT [facility] Progress Note Visit Number: 2 Initial Certification Period: 07/31/2022 to 10/29/22 Referring Provider: Meghan Ponce Visit Diagnosis: 1. Cervical radiculopathy Precautions: none SUBJECTIVE: Patient returns for her follow up visit. Initially, she was seen by a colleague of [facility] on July. Unfortunately, she was having so much pain that she elected not to schedule any more PT, but rather see neurosurgery. In fact, she was told that she will need a surgery on C5-6. Unfortunatelybecause of insurance rules, she has to complete a few PT session before that can be approved, whichis why patient is here today. However, patient stated that the neurosurgeon did not think physical therapy would be helpful. Overall, patient reports improvement in pain, but 2 weeks ago, she also started having pain down her right U/E from the shoulder to the mid part of the humerus. On the left side, she is experiencing a radiating pain all the way down her left U/E. Patient reports only minimal neck pain if any. 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 Manual therapy (25 minutes): - central and bilateral PA's to C3-T1, gr. II, II+ oscillated to decrease inflammation/pain and improve segmental mobility Rx was tolerated well and the patient stated: That actually felt good. Timed Code Treatment Minutes: 37 Total Treatment Minutes: 37 Current Home Exercise Program List: Access Code: [email or web address] URL: [email or web address] Date: 07/31/2022 Prepared by: Gautam Byrd Exercises - Seated Cervical Traction - 2-3 x daily - 5 x weekly - 1 sets - 10-20 reps - slow and controlled speed - Supine Neck Traction with Doorway - 2-3 x daily - 5 x weekly - 1 sets - 10-20 reps - slow and controlled speed - Median Nerve Flossing - Tray - 2-3 x daily - 5 x weekly - 1 sets - 10-20 reps - slow and controlled speed ASSESSMENT/PROGRESS TOWARD GOALS: Patient con't to be symptomatic without meaningful improvement. Planning to attend a few PT sessionto have her surgery approved as noted in the subjective part. Functional Goals/Outcomes: HEP/Independent Management: Demonstrate independence with HEP and self- management following each treatment session ADL's: Resume previous sleep pattern without awakening due to symptoms in 6-8 weeks. Perform home management tasks with ease in 8-12 weeks. Sports/Leisure: Return to prior level of leisure or recreational activities, including flying without an increase in symptoms or limitations in 8-12 weeks. PLAN: Con't with manual therapy and exercise. documented in this encounter Plan of Treatment Upcoming Encounters Date Type Department Care Team Description 05/23/2023 9:00 AM FOREST SCIENCE PROFESSOR Appointment [facility] [address] [place], [place] [phone] documented as of this encounter Visit Diagnoses Diagnosis Cervical radiculopathy- Primary Brachial neuritis or radiculitis nos documented in this encounter Care Teams Integrated Pest Management Technician Relationship Specialty Start Date End Date Needs Pcp, [place] [address] PCP - General 08/12/14 documented as of this encounter
--- OUTSIDE RECORDS SUMMARY | 2023-05-08 09:43 | XMS_ITS | Encounter Summary ---
Author Name Unknown Organization [facility] Address [address], [place] [address] Care Team Providers Care Home Service Consultant Name Role Phone Needs Pcp, Assignment Primary Care Provider [phone] Reason for Visit * Procedure/Equipment (Routine) - New Request Specialty Diagnoses / Procedures Referred By Hiram viveros Referred To Contact Diagnoses Cervical radicular pain Neck pain S/P cervical disc replacement Left arm pain Procedures NEURO--EMG ELECTRICAL NERVE CONDUCTION STUDY Meghan Ponce, CAN SOLDERER, BUDDHIST MONK [address] [place] [id number] Referral ID Status Reason Start Date Expiration Date V isits Requested Visits Authorized [id number] New Request 07/09/2022 10/08/2023 1 1 Encounter Details Date Type Department Care Team Description 08/08/2022 12:00 PM CDT Procedure Visit Specialty [facility] 3931 Neurophysiology EEG/EMG [facility] [place], [place] [phone] Cheryle Oliva MD [address] [place], [place] [phone] Social History Tobacco Use Types Packs/Day Years [...] as of this encounter Progress Notes * Cheryle Oliva MD - 08/08/2022 12:00 PM CDT Images from the original note were not included. [facility] Department of Neurology Electrodiagnostic Laboratory Nerve Conduction & EMG Report Full Name: Lacey Nolasco Date of : 1980 Visit Date: 08/08/2022 8:27 AM Age: 42 Years Referring Physician: Meghan Ponce CNP Reason for Exam: Patient with history of cervical spine surgery/artificial disc at C6-C7 presentingwith acute onset of neck shoulder pain radiating in left upper extremity 6 weeks ago. Query : Cervical radiculopathy, brachial plexopathy. SNC Nerve / Sites Rec. Site Onset Lat Peak Lat INBOUND SALES ADVISOR Amp PP Amp Segments Distance Peak Diff Velocity ms ms ??V ??V mm ms m/s L Radial - Anatomical snuff box (Forearm) Forearm Wrist 1.6 2.3 40.2 39.3 Forearm - Wrist 100 63 L Median, Ulnar - Transcarpal comparison Median Palm Wrist 1.3 1.8 79.4 89.6 Median Palm - Wrist 80 62 Ulnar Palm Wrist 1.6 2.1 19.9 18.8 Ulnar Palm - Wrist 80 51 Median Palm - Ulnar Palm -0.3 MNC Nerve / Sites Muscle Latency Amplitude Rel Amp Duration Segments Distance Lat Diff Velocity ms mV % ms mm ms m/s L Median - APB Wrist APB 3.2 6.9 100 5.8 Wrist - APB 70 Elbow APB 7.2 7.5 110 6.1 Elbow - Wrist 240 4.0 60 L Ulnar - ADM Wrist ADM 2.4 8.2 100 6.4 Wrist - ADM 70 Above elbow ADM 7.3 7.1 86.5 6.8 Above elbow - Wrist 300 4.9 61 EMG Summary Table . Spontaneous Activity Voluntary MUAPs Polyphasic Comment Muscle Exam Ins. Act. Fibs Fasc Rec. Decr. Recr. Incr. Ampl. High Ampl. Low Dur. Long Dur. Short Polyphasic Comment L. Deltoid (posterior) Normal - - - - - - - - - - - L. Triceps brachii Normal - - - - - - - - - - - L. Pronator teres - Incr. ++++ - + - - - - - - - L. Biceps brachii Normal - - - - - - - - - - L. First dorsal interosseous Normal - - - - - - - - - - - L. Infraspinatus Normal - - - - - - - - - - - L. Cervical paraspinals (mid) Normal - - - - - - - - - - - L. Cervical paraspinals (low) Normal - - - - - - - - - - - Summary All nerve conductions in left upper extremity are normal. Patient had difficulties tolerating study. Needle examination shows increased insertional activity with widespread denervation in left pronator teres which has mild decreased recruitment and normal motor unit action potential morphology. All other studied muscles are normal including cervical paraspinals. Conclusion: Abnormal EMG. A) the EMG is compatible with a mild to moderate in severity acute involvement of motor left C6 motor fibers to pronator teres. This likely represent an acute left C6 cervical radiculopathy Electrophysiological diagnosis of a cervical radiculopathy requires finding abnormalities in more than 2 muscles, however due to fascicular sparing it is possible that at times only one muscle is affected on EMG. The normality of nerve conductions and absence of abnormalities in the other studied muscles will argue against a brachial plexopathy. B) no electrophysiological evidence for a left median ulnar or radial neuropathy. Cheryle Oliva MD Methods: Limb temperature was monitored continuously during the NCS and repetitive stimulation. Hand temperature was maintained between 30??C and 36??C. NCS: 5 mm tin disc, Ulnar Nerve.: Elbow. Flexed, Concentric Needle Electrode. File: [id number] Lacey Nolasco [id number] 08/08/2022 8:27 AM 3 of 3 documented in this encounter Plan of Treatment Upcoming Encounters Date Type Department Care Team Description 05/23/2023 9:00 AM GREENS TIER Appointment [facility] [address] [place] [address] documented as of this encounter Visit Diagnoses Diagnosis Cervical radicular pain Neck pain Cervicalgia S/P cervical disc replacement Left arm pain Pain in limb documented in this encounter Care Teams Home Service Consultant Relationship Specialty Start Date End Date Needs Pcp, [place] [address] PCP - General 08/12/14 documented as of this encounter
--- OUTSIDE RECORDS SUMMARY | 2023-05-08 09:43 | XMS_ITS | Encounter Summary ---
Author Name Unknown Organization [facility] Address [address], [place] [address] Care Team Providers Care Data Analysis Assistant Name Role Phone Needs Pcp, Assignment Primary Care Provider Reason for Referral * Procedure/Equipment (Routine) - Incomplete Specialty Diagnoses / Procedures Referred By Hiram t Referred To Contact Diagnoses Left shoulder pain, unspecified chronicity Procedures MR Shoulder Lt WO IV Cont Karla Kelly DO [address] [place] [id number] Referral ID Status Reason Start Date Expiration Date V isits Requested Visits Authorized [id number] Incomplete 07/22/2022 10/21/2023 1 1 Reason for Visit * Reason Comments SHOULDER PAIN Left Encounter Details Date Type Department Care Team Description 07/22/2022 12:30 PM CDT Office Visit [facility] [address] [place] [id number] Karla Kelly DO [address] [facility] [address] [id number] Left shoulder pain, unspecified chronicity (Primary Dx) Social History Tobacco Use Types [...] Pressure - - Pulse - - Temperature 36.4 ??C (97.5 ??F) 07/22/2022 12:17 PM C DT Respiratory Rate - - Oxygen Saturation - - Inhaled Oxygen Concentration - - Weight 83.9 kg (185 lb) 07/22/2022 12:17 PM CDT Height 167.6 cm (5' 6) 07/22/2022 12:17 PM CDT Body Mass Index 29.86 07/22/2022 12:17 PM CDT documented in this encounter Progress Notes * Karla Kelly, - 07/22/2022 12:00 AM CDT NAME: SHAMIR NOLASCO CSN: [id number] CLINIC NOTE DATE OF SERVICE: 07/22/2022 : 1980 Shamir Nolasco is a healthy-appearing 42-year-old woman, here for complaints of left shoulder pain.She has a history of cervical radiculopathy, but she feels like this might be different to what shehas been experiencing in the past. She has previously been seen by Dr. Yancey and Meghan Ponce at [facility] for radicular symptoms. She was advised to follow up by Pain Management for a possible shoulder issue. She describes severe pain in the neck, shoulder, and upper back over the past3 weeks. She has tried ice, heat, Medrol Dosepak, and has had injections, as well as career manager. She denies any previous shoulder injuries. PAST MEDICAL HISTORY: Reviewed in Epic. Temperature is afebrile. PHYSICAL EXAM: GENERAL: The patient is alert and oriented, in no acute distress. Gait is normal. LEFT SHOULDER EXAM: Able to achieve full active and passive shoulder forward flexion, abduction, and internal and external rotation through pain, without guarding. 5/5 rotator cuff strength in forward flexion, abduction, and internal and external rotation. No bony tenderness over the AC joint or distal clavicle. IMAGING: Left shoulder x-ray, performed on July 18, 2022, is available for review and discussed with the patient. MRI of the left shoulder, performed at today's visit, with imaging and results available for reviewwith the patient, is showing no evidence for rotator cuff or labral tear. No evidence for joint effusion or subacromial bursitis. ASSESSMENT AND PLAN: Left shoulder pain, likely secondary to cervical origin. Continue treatment with her Spine Care team and Pain Clinic team. KARLA KELLY DO APR/ /[id number] documented in this encounter Plan of Treatment Upcoming Encounters Date Type Department Care Team Description 05/23/2023 9:00 AM NEONATAL NURSE Appointment [facility] [address] [place] [address] documented as of this encounter Results * MR Shoulder Lt WO IV Cont (07/22/2022 1:32 PM CDT) Anatomical Region Laterality Modality Shoulder, Skeletal, Arm, Upper Extremity, Other, MSK Left Magnetic Resonance 07/22/2022 1:09 PM CDT Impressions 07/22/2022 1:37 PM CDT TECHNIQUE: ??Routine MRI of the left shoulder was performed without contrast. COMPARISON: ??07/18/2022 FINDINGS: ?? CORACOACROMIAL ARCH/AC JOINT: ??There is mild degenerative arthritis at the acromioclavicular joint. Type 2 acromion. There is no significant thickening of the coracoacromial or coracohumeral ligaments. There is no significant narrowing of the subacromial outlet or coracohumeral distance. ROTATOR CUFF: ??The supraspinatus, infraspinatus, teres minor and subscapularis tendons are intact without evidence of tear or tendinopathy. There is no atrophy of the rotator cuff muscles. SUBACROMIAL/SUBDELTOID BURSA: ??Normal. GLENOHUMERAL JOINT: ??There is no significant degenerative arthritis or focal cartilage defect. There is no significant joint effusion. No osteocartilaginous bodies are identified. LONG HEAD OF THE BICEPS TENDON/GLENOID LABRUM: ??The intra and extraarticular portions of the long head of the biceps tendon are normal. The biceps-labral anchor is intact. There is no evidence of labral tear. MARROW AND SOFT TISSUES: ??There is no abnormal signal. There is no soft tissue mass. IMPRESSION: ?? 1. No evidence of a rotator cuff or labral tear. 2. 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 Narrative Procedure Note Allen Velasco MD - 07/22/2022 IMPRESSION TECHNIQUE: Routine MRI of the left shoulder was performed withoutcontrast. COMPARISON: 07/18/2022 FINDINGS: CORACOACROMIAL ARCH/AC JOINT: There is mild degenerative arthritis at theacromioclavicular joint. Type 2 acromion. There is no significantthickening of the coracoacromial or coracohumeral ligaments. There is nosignificant narrowing of the subacromial outlet or coracohumeraldistance. ROTATOR CUFF: The supraspinatus, infraspinatus, teres minor andsubscapularis tendons are intact without evidence of tear or tendinopathy.There is no atrophy of the rotator cuff muscles. SUBACROMIAL/SUBDELTOID BURSA: Normal. GLENOHUMERAL JOINT: There is no significant degenerative arthritis orfocal cartilage defect. There is no significant joint effusion. Noosteocartilaginous bodies are identified. LONG HEAD OF THE BICEPS TENDON/GLENOID LABRUM: The intra andextraarticular portions of the long head of the biceps tendon are normal.The biceps-labral anchor is intact. There is no evidence of labral tear. MARROW AND SOFT TISSUES: There is no abnormal signal. There is no softtissue mass. IMPRESSION: 1. No evidence of a rotator cuff or labral tear. 2. 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 Authorizing Provider Result Don DINERO MRI documented in this encounter Visit Diagnoses Diagnosis Left shoulder pain, unspecified chronicity- Primary Left shoulder pain, unspecified chronicity documented in this encounter Care Teams Data Analysis Assistant Relationship Specialty Start Date End Date Needs Pcp, [place] [address] PCP - General 08/12/14 documented as of this encounter
--- OUTSIDE RECORDS SUMMARY | 2023-05-08 09:43 | XMS_ITS | Encounter Summary ---
Author Name Unknown Organization [facility] Address [address] [place] [address] Care Team Providers Care Coloring Machine Operator Name Role Phone Ghanshyam Hassan Primary Care Provider Unavailable Ghanshyam Hassan Primary Care Provider Unavailable Allen Amaya MD Primary Care Provider Ghanshyam Hassan Primary Care Provider Unavailable Medardo Graf MD Primary Care Provider [phone] Noelle Khan MD Unavailable [phone] Umu Duke MD Unavailable [phone] Umu Duke MD Unavailable [phone] Reason for Visit * Reason Onset Date Comments Nurse Advice Line 04/23/2011 Encounter Details Date Type Department Care Team (Late st Contact Info) Description 04/23/2011 Telephone [facility] [place] [address] [place] [address] Allen Amaya MD [address] [place] [address] Nurse Advice Line Social History Tobacco Use Types Packs/Day Years Used Date Smoking Tobacco: Never Alcohol Use Standard Drinks/Week Comments Yes 0 (1 standard drink = 0.6 oz pur e alcohol) occas Sex and Gender Information Value Date Recorded Sex Assigned at Not on file Gender Identity Not on file Sexual Orientation Not on file documented as of this encounter Miscellaneous Notes * Telephone Encounter - Becky Yepez - 08/21/2011 6:41 AM CDT [facility] Triage Call Report Patient Name: Lacey Nolasco Call Date & Time: 04/23/2011 9:08:38PM Patient PCP Name: Patient Address: [address] [place] [phone] Patient Date of : 1980 Age: 31 yr. Patient Gender: Female Business Office Coordinator Name: Kerrie Ponce Presenting Problem: I'm wondering if I should be seen? -laproscopic surgery done today at 10:30 this morning; discharged about 2 PM; very nauseous and hasvomited many times; denies diarrhea; denies fever; sounds [...] Influenza 04/04/2021 04/04/2021 04/11/2021 11:4 1 PM COLLECTOR OF AQUARIUM SPECIMENS documented as of this encounter Care Teams Coloring Machine Operator Relationship Specialty Start Date End Date Ghanshyam Hassan PCP - General 04/19/11 02/21/12 Ghanshyam Hassan PCP - General 02/22/12 02/22/12 Allen Amaya MD PCP - General manager farm 02/23/12 04/07/12 Ghanshyam Hassan PCP - General 04/08/12 11/14/18 Medardo Graf MD PCP - General Family Practice 11/15/18 Noelle Khan MD [facility] [address] [place], [place] [phone] Assigned Pulmonology Provider 02/04/20 11/09/21 Umu Duke MD [address] [place] [address] manager farm 03/16/20 Umu Duke MD [address] [phone] Assigned OBGYN Provider 06/04/2002/01 documented as of this encounter
--- OUTSIDE RECORDS SUMMARY | 2023-05-08 09:43 | XMS_ITS | Encounter Summary ---
Author Name Unknown Organization [facility] Address [facility] [place] [address] Care Team Providers Care Programming Director Name Role Phone Medardo Graf MD Primary Care Provider [phone] Noelle Khan MD Unavailable [phone] Umu Duke MD Unavailable [phone] Umu Duke MD Unavailable [phone] Encounter Details Date Type Department Care Team (Late st Contact Info) Description 07/14/2020 MyC Medical Advice [facility] [address] [facility] [address] [place] [address] Umu Duke MD [address] [facility] [address] [place] [address] Social History Tobacco Use Types Packs/Day Years Used Date Smoking Tobacco: Never Smokeless Tobacco: Never Alcohol Use Standard Drinks/Week Comments Yes 0 (1 standard drink = 0.6 oz pur e alcohol) 2 week AUDIT-C Answer Date Recorded Q1: How often [...] have Coronavirus / COVID-19? No / Unsure 07/11/2020 9:43 AM CDT documented as of this encounter Plan of Treatment Not on file documented as of this encounter Visit Diagnoses Not on filedocumented in this encounter Additional Health Concerns Infection Onset Date Last Indicated Resolved Time Influenza 04/04/2021 04/04/2021 04/11/2021 11:4 1 PM DESIZING MACHINE BACK TENDER Assessment Noted Time PHQ-9 Depression Total Score: 2 06/01/19 21 1:03 PM DESIZING MACHINE BACK TENDER documented as of this encounter Care Teams Programming Director Relationship Specialty Start Date End Date Medardo Graf MD PCP - General Family Practice 11/15/18 Noelle Khan MD [facility] [address] [place] [address] Assigned Pulmonology Provider 02/04/20 11/09/21 Umu Duke MD [address] [place], [place] [phone] wrapper leaf inspector 03/16/20 Umu Duke MD [address] [place], [place] [address] Assigned OBGYN Provider 06/04/2002/01 documented as of this encounter
--- OUTSIDE RECORDS SUMMARY | 2023-05-08 09:43 | XMS_ITS | Clinical Summary ---
Author Name Unknown Organization [facility] Address [address], [place] [address] Care Team Providers Care High Energy Forming Equipment Operator Name Role Phone Needs Pcp, Assignment Primary Care Provider [phone] Source Comments You are receiving this document as you are listed as the primary care provider,follow-up provider, or the patient has been referred to you for consultation.This is in compliance with the Medicare and[employer] EHR Incentive Program,which states Providers who transition their patient to another setting of careor provider of care or refers their patient to another provider of care shouldprovide summary care record for each transition of care or referral. [facility] Allergies Active Allergy Reactions Criticality Noted Date Comments Zolpidem Tartrate Low 04/03/2011 Paradoxical reaction Medications Medication Sig Dispensed Refills Start Date End Date Status valACYclovir (VALTREX) 500 MG tablet Take 1 Tablet (500 mg) by mouth as needed. 0 02/14/2020 Active norgestrel-ethiny l estradiol (LO/OVRAL) 0.3-30 MG-MCG tabletIndications :Abnormal uterine bleeding (AUB),History of endometrial ablation,Uterine leiomyoma, unspecified location Take 1 Tablet by mouth daily. Take continuously 84 Tablet 3 03/15/2020 Active Additional Information Patient not taking.Reported on 04/04/2020 valACYclovir (VALTREX) 1 g tablet Take by mouth as needed. 0 06/03/2022 Active methylPREDNISolon e (MEDROL 21 TABLET DOSEPACK) 4 MG tablet Follow package directions 21 Tablet 0 07/02/2022 Active Additional Information Patient not taking.Reported on 07/18/2022 cyclobenzaprine (FLEXERIL) 5 MG tablet Take 1 Tablet (5 mg) by mouth at bedtime as needed; may repeat x 1 for Muscle Spasms. 30 Tablet 0 07/02/2022 Active HYDROcodone-aceta minophen (NORCO) 5-325 MG tablet Take 1 Tablet by mouth two times daily as needed for Pain. 10 Tablet 0 07/09/2022 Active gabapentin (NEURONTIN) 300 MG capsule Take 1 Capsule (300 mg) by mouth three times a day. 270 Capsule 3 07/09/2022 07/09/2023 Active pregabalin (LYRICA) 75 MG capsuleIndication s:Neck pain,Acute pain of left shoulder,Left arm pain Take 1 Capsule (75 mg) by mouth two times a day. 180 Capsule 1 07/18/2022 07/18/2023 Active methocarbamol (ROBAXIN) 500 MG tabletIndications :Neck pain,Acute pain of left shoulder Take 1 Tablet (500 mg) by mouth every 6 hours as needed. 120 Tablet 1 07/18/2022 Active ketoconazole (NIZORAL) 2 % cream Apply topically two times a day. 0 02/21/2022 Active liothyronine (CYTOMEL) 25 MCG tablet Take 1 Tablet (25 mcg) by mouth daily. 0 07/08/2022 Active spironolactone (ALDACTONE) 50 MG tablet Take 1 Tablet (50 mg) by mouth two times a day. 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 Resolved Problems Problem Noted Date Diagnosed Date Resolved Date Generalized headaches 11/04/20112015 Encounter for supervision of normal in multigravida 09/23/2011 06/09/2015 Overview: Supervision of normal subsequent Dysmenorrhea 10/09/2010 06/09/2015 Overview: LW Onset: 04/2010 Herpes simplex virus (HSV) infection 05/24/2009 02/29/2020 Overview: LW Onset: 1987 ; Herpes Simplex NOS Contraceptive management 05/24/2009 Overview: LW Onset: 05/2009 ; Contraceptive Management NOS Immunizations Name Administration Dates Next Due Flu Vac Preserv Free (3+yrs) 01/26/2011 Influenza IIV4 (Quadrivalent) 0.5mL (90217) 07/2012 Td 04/12/2004 Family History Medical History Relation [...] on file Sexual Orientation Not on file Last Filed Vital Signs Vital Sign Reading Time Taken Comments Blood Pressure 124/98 07/18/2022 7:04 AM CDT Pulse 103 07/18/2022 7:04 AM CDT Temperature 36.4 ??C (97.5 ??F) 07/22/2022 12:17 PM C DT Respiratory Rate 16 04/28/2020 3:39 PM SPINNING MACHINE TENDER Oxygen Saturation 100% 04/28/2020 3:39 PM SPINNING MACHINE TENDER Inhaled Oxygen Concentration - - Weight 83.9 kg (185 lb) 07/22/2022 12:17 PM CDT Height 167.6 cm (5' 6) 07/22/2022 12:17 PM CDT Body Mass Index 29.86 07/22/2022 12:17 PM CDT Plan of Treatment Upcoming Encounters Date Type Department Care Team Description 05/23/2023 9:00 AM SPINNING MACHINE TENDER Appointment [facility] [address] [place] [address] Health Maintenance Due Date Last Done Comments HepB (1) 1980 COVID-19 Vaccine (#1) 1980 DTaP/Tdap/Td (1 - Tdap) 04/13/2004 04/12/2004 Colon Cancer Screening Plan Due 09/08/2013 09/07/2013 Adult Preventive Visit 02/28/2021 02/29/2020 Influenza (#1) 2022 01/22/2021, 12/13, 01/01/2019, Additional history exists Cervical Cancer Screening 02/28/20252019, 06/09/2015, 09/23/2011, Additional history exists Cholesterol 02/28/2025 02/29/2020, 10/09/2010 Diabetes Screening- (based on age and BMI) 07/09/2025 07/09/2022, 02/29/2020, 09/23/2011 Zoster/Shingles (1 of 2) 2028 Hep C Screening (Preventive Services) Completed 05/24/2009, 07/10/2004 HIV Screening (Preventive Services) Completed 09/23/2011, 05/24/2009, 10/16/2004, Additional history exists HPV Vaccine Aged Out No longer eligi ble based on patient's age to complete this topic HepA Aged Out No longer eligi ble based on patient's age to complete this topic Hib Aged Out No longer eligi ble based on patient's age to complete this topic IPV (Polio) Aged Out No longer eligi ble based on patient's age to complete this topic MCV4 Aged Out No longer eligi ble based on patient's age to complete this topic Pneumococcal Aged Out No longer eligi ble based on patient's age to complete this topic Care Teams High Energy Forming Equipment Operator Relationship Specialty Start Date End Date Needs Pcp, [place] [address] PCP - General 08/12/14
--- OUTSIDE RECORDS SUMMARY | 2023-05-08 09:43 | XMS_ITS | Encounter Summary ---
Author Name Unknown Organization [facility] Address [address], [place] [address] Care Team Providers Care Director Hardware Name Role Phone Needs Pcp, Assignment Primary Care Provider Encounter Details Date Type Department Care Team Description 07/18/2022 8:20 AM CDT Lab Visit [place] [address] [place] [address] Medication management Social History Tobacco Use Types Packs/Day Years [...] as of this encounter Plan of Treatment Upcoming Encounters Date Type Department Care Team Description 05/23/2023 9:00 AM WAREHOUSE EXAMINER Appointment [facility] [address] [place] [address] documented as of this encounter Procedures Procedure Name Priority Date/Time Associated Diagnosis Comments URINE DRUG COMPREHENSIVE PANEL (WITH CONFIRMATION) Routine 07/18/2022 8:29 AM CDT Medication management documented in this encounter Results * (ABNORMAL) Urine Drug Comprehensive Panel (with Confirmation) (07/18/2022 8:29 AM CDT) [id number]-[id number] am, urine Not Detected Not Detected 07/22/2022 12:56 PM CDT [facility] Alprazolam, urine Not Detected Not Detected 01/2023 12:56 PM CDT [facility] Amitryptyline, urine Not Detected Not Detected 07/22/2022 12:56 PM CDT [facility] Amphetamine, urine Not Detected Not Detected 07/22/2022 12:56 PM [facility] Benzoylecgonine, urine Not Detected Not Detected 07/22/2022 12:56 PM T [facility] Buprenorphine, urine Not Detected Not Detected 07/22/2022 12:56 PM T [facility] Bupropion, urine Not Detected Not Detected 07/13 12:56 PM [facility] Butalbital, urine Not Detected Not Detected 01/2023 12:56 PM [facility] Carisoprodol, urine Not Detected Not Detected 07/22/2022 12:56 PM [facility] Citalopram, urine Not Detected Not Detected 01/2023 12:56 PM [facility] Clomipromine, urine Not Detected Not Detected 07/22/2022 12:56 PM [facility] Clonazepam Metab 7-Aminoclonazepam , urine Not Detected Not Detected 07/22/2022 12:56 PM [facility] Clonazepam, urine Not Detected Not Detected 01/2023 12:56 PM [facility] Cocaine, urine Not Detected Not Detected 2022 12:56 PM [facility] Codeine, urine Not Detected Not Detected 2022 12:56 PM [facility] Cyclobenzaprine, urine Confirmed Positive(A) Not Detected 07/22/2022 12:56 PM CDT [facility] Desipramine, urine Not Detected Not Detected 07/22/2022 12:56 PM [facility] Diazepam, urine Not Detected Not Detected 07/22 12:56 PM [facility] Doxepin, urine Not Detected Not Detected 2022 12:56 PM [facility] Ecstasy MDMA, urine Not Detected Not Detected 07/22/2022 12:56 PM [facility] Ecstasy Metab MDA, urine Not Detected Not Detected 07/22/2022 12:56 PM [facility] Fentanyl, urine Not Detected Not Detected 07/22 12:56 PM CDT [facility] Fluoxetine, urine Not Detected Not Detected 01/2023 12:56 PM CDT [facility] Gabapentin, urine Confirmed Positive(A) Not Detected 07/22/2022 12:56 PM CDT [facility] Heroin Metab 6-acetylmorphine, urine Not Detected Not Detected 07/22/2022 12:56 PM T [facility] Hydrocodone, urine Not Detected Not Detected 07/22/2022 12:56 PM T [facility] Hydromorphone, urine Not Detected Not Detected 07/22/2022 12:56 PM T [facility] Imipramine, urine Not Detected Not Detected 01/2023 12:56 PM T [facility] Ketamine, urine Not Detected Not Detected 07/22 12:56 PM T [facility] Lorazepam, urine Not Detected Not Detected 07/13 12:56 PM T [facility] Marijuana Metabolite, urine Not Detected Not Detected 07/22/2022 12:56 PM T [facility] Meperidine, urine Not Detected Not Detected 01/2023 12:56 PM T [facility] Meprobamate, urine Not Detected Not Detected 07/22/2022 12:56 PM T [facility] Methadone Metab EDDP, urine Not Detected Not Detected 07/22/2022 12:56 PM T [facility] Methadone, urine Not Detected Not Detected 07/13 12:56 PM T [facility] Methamphetamine, urine Not Detected Not Detected 07/22/2022 12:56 PM [facility] Methylphenidate, urine Not Detected Not Detected 07/22/2022 12:56 PM T [facility] Mirtazapine, urine Not Detected Not Detected 07/22/2022 12:56 PM T [facility] Morphine, urine Not Detected Not Detected 07/22 12:56 PM [facility] Norbuprenorphine, urine Not Detected Not Detected 07/22/2022 12:56 PM CDT [facility] Nordiazepam, urine Not Detected Not Detected 07/22/2022 12:56 PM [facility] Desmethyldoxapine , urine Not Detected Not Detected 07/22/2022 12:56 PM [facility] Norfentanyl, urine Not Detected Not Detected 07/22/2022 12:56 PM T [facility] Nortriptyline, urine Not Detected Not Detected 07/22/2022 12:56 PM [facility] O-desmethylvenlaf axine, urine Not Detected Not Detected 07/22/2022 12:56 PM [facility] Oxazepam, urine Not Detected Not Detected 07/22 12:56 PM [facility] Oxycodone, urine Not Detected Not Detected 07/13 12:56 PM [facility] Oxymorphone, urine Not Detected Not Detected 07/22/2022 12:56 PM [facility] Paroxatine, urine Not Detected Not Detected 01/2023 12:56 PM [facility] Phencyclidine, urine Not Detected Not Detected 07/22/2022 12:56 PM [facility] Phenobarbital, urine Not Detected Not Detected 07/22/2022 12:56 PM [facility] Pregabalin, urine Not Detected Not Detected 01/2023 12:56 PM [facility] Quetiapine, urine Not Detected Not Detected 01/2023 12:56 PM [facility] Sertraline, urine Not Detected Not Detected 01/2023 12:56 PM [facility] Tapentadol, urine Not Detected Not Detected 01/2023 12:56 PM [facility] Temazepam, urine Not Detected Not Detected 07/13 12:56 PM [facility] Tramadol, urine Not Detected Not Detected 07/22 12:56 PM [facility] Venlafaxine, urine Not Detected Not Detected 07/22/2022 12:56 PM [facility] Zolpidem, urine Not Detected Not Detected 07/22 12:56 PM [facility] Creatinine, Urine, Random 26 >20 mg/dL 07/22/2022 12:56 PM [facility] Medication Check Inconsistent with Med List(A) Consistent with Med List 07/22/2022 12:56 PM [facility] Patient Medication History Current Outpatient Medications Ordered in Epic: cyclobenzaprin e (FLEXERIL) 5 MG tablet gabapentin (NEURONTIN) 300 MG capsule HYDROcodone-ac etaminophen (NORCO) 5-325 MG tablet levothyroxine (SYNTHROID) 50 MCG tablet methocarbamol (ROBAXIN) 500 MG tablet methylPREDNISo lone (MEDROL 21 TABLET DOSEPACK) 4 MG tablet norgestrel-eth inyl estradiol (LO/OVRAL) 0.3-30 MG-MCG tablet pregabalin (LYRICA) 75 MG capsule valACYclovir (VALTREX) 1 g tablet valACYclovir (VALTREX) 500 MG tablet No current Epic-ordered facility-admin istered medications on file. 07/22/2022 12:56 PM CDT [facility] Medication Interpretation Not prescribed and detected: None Prescribed and not detected: Hydrocodone prescribed and not detected Pregabalin prescribed and not detected Prescribed and detected: Cyclobenzaprin e prescribed and detected Gabapentin prescribed and detected 07/22/2022 12:56 PM CDT [facility] Urine Non-blood Collection / Unknown 07/18/2022 8:29 AM CDT 07/18/2022 8:29 AM CDT [facility] - 07/22/2022 12:56 PM CDT The absence of expected drug(s) and/or drug metabolite(s) may indicate non-compliance, inappropriate timing of specimen collection relative to drug administration, poor drug absorption, diluted/adulterated urine or limitations of testing. The concentration must be greater than or equal to the cutoff concentration to be reported as positive. For medical purposes only: not valid for forensic, legal, or employment use. Analysis by LC-MS/MS Liquid Chromatography/Mass Spectrometry. This test was developed and its performance characteristics validated by [facility]. It has not been cleared nor approved by the FDA> Heriberto Pearce MD LAB_[address] [address], [facility] [phone] documented in this encounter Visit Diagnoses Diagnosis Medication management Encounter for other specified aftercare documented in this encounter Care Teams Director Hardware Relationship Specialty Start Date End Date Needs Pcp, [place] [address] PCP - General 08/12/14 documented as of this encounter
--- OUTSIDE RECORDS SUMMARY | 2023-05-08 09:43 | XMS_ITS | Encounter Summary ---
Author Name Unknown Organization [facility] Address [address], [place] [address] Care Team Providers Care Roll Capper Name Role Phone Needs Pcp, Assignment Primary Care Provider [phone] Encounter Details Date Type Department Care Team Description 07/23/2022 Telephone [place] [address] [facility] [address] [place] [address]. [place], [place] [id number] Heriberto Pearce MD [facility] [place], [place] [id number] Social History Tobacco Use Types Packs/Day Years [...] documented as of this encounter Nursing Notes * Bisi Song - 07/23/2022 3:00 PM CDT Called pt to schedule a follow up. Pt stated she is not coming back to [facility] and will be having her care continued at [facility]. It is more convenient. Pt will call back to schedule if needed in the future. * Heriberto Pearce MD - 07/23/2022 10:29 AM CDT 07/18/22 urine drug screen resulted. Please contact patient to schedule in-person return visit as discussed at initial visit. documented in this encounter Plan of Treatment Upcoming Encounters Date Type Department Care Team Description 05/23/2023 9:00 AM SPLICING TECHNICIAN Appointment [address] [address] documented as of this encounter Visit Diagnoses Not on filedocumented in this encounter Care Teams Roll Capper Relationship Specialty Start Date End Date Needs Pcp, [place], [place] [address] PCP - General 08/12/14 documented as of this encounter
--- OUTSIDE RECORDS SUMMARY | 2023-05-08 09:43 | XMS_ITS | Clinical Summary ---
Author Name Unknown Organization [place] Address [address] [place] [address] Care Team Providers Care Basket Grader Name Role Phone Medardo Graf MD Primary Care Provider [phone] Umu Duke MD Unavailable [phone] Allergies Active Allergy Reactions Criticality Noted Date Comments Zolpidem Tartrate 04/17/2011 blacks out but doesn't fall asleep Medications Medication Sig Dispensed Refills Start Date End Date Status valACYclovir (VALTREX) 500 MG tablet 0 12/29/2017 Active levothyroxine (SYNTHROID/LEVOTHROID) 50 MCG tablet 50 mcg daily 0 04/09/2019 Active norgestrel-ethinyl estradiol (LO/OVRAL) 0.3-30 MG-MCG tablet Take 1 tablet by mouth 0 03/15/2020 Active Active Problems Problem Noted Date Diagnosed Date Submucous leiomyoma of uterus 06/15/2020 Overview: Added automatically from request for surgery [id number] Vaginal delivery 04/28/2012 Labor and delivery, indication for care 04/25/19 13 Uterine contractions or other obstetric complain ts 04/08/2012 Head ache 11/04/2011 Immunizations Name Administration Dates [...] Answer Date Recorded PHQ-2 Score 0 06/01/2020 Adolescent Education Answer Date Record ed Getting School Help Needed Not on file 01/05 Sex and Gender Information Value Date Recorded Sex Assigned at Not on file Gender Identity Not on file Sexual Orientation Not on file Last Filed Vital Signs Vital Sign Reading Time Taken Comments Blood Pressure 128/80 11/05/2021 11:50 AM CDT Pulse 64 11/05/2021 11:50 AM CDT Temperature 36.8 ??C (98.3 ??F) 11/05/2021 11:50 AM C DT Respiratory Rate 16 11/05/2021 11:50 AM CDT Oxygen Saturation 99% 11/05/2021 11:50 AM CDT Inhaled Oxygen Concentration - - Weight 85.9 kg (189 lb 6.4 oz) 11/05/2021 11:50 AM CDT Height 165.1 cm (5' 5) 02/28/2021 2:12 PM SEAM FINISHER Body Mass Index 31.52 02/28/2021 2:12 PM SEAM FINISHER Plan of Treatment Health Maintenance Due Date Last Done Comments ADVANCE CARE PLANNING 1980 ANNUAL REVIEW OF HM ORDERS 1978 CT COLONOGRAPHY 1978 FIT 1978 FLEX SIG 1978 TSH W/FREE T4 REFLEX 1978 sDNA (Cologuard) 1978 COLONOSCOPY 1988 COLORECTAL CANCER SCREENING 1988 HEPATITIS C SCREENING 1996 YEARLY PREVENTIVE VISIT 02/28/2021 02/29/2020, 02/28 MAMMO SCREENING 11/01/2021 11/01/2020 COVID-19 Vaccine ( season) 2022 06/01/2020, 05/07/2020 INFLUENZA VACCINE (#1) 2022 , 01/22/2021, 12/27/2019, Additional history exists PAP 02/28/2023 02/29/2020, 02/29/2020 LIPID 03/19/2023 03/19/2018 PHQ-2 (once per calendar year) 2023 06/01/2020, 06/01/2020, 05/12/2020, Additional history exists DTAP/TDAP/TD IMMUNIZATION (5 - Td or Tdap) 03/26/2030 03/26/2020, 03/03/2010, 10/02/2008, Additional history exists HEPATITIS B IMMUNIZATION Completed 009, 02/09/2008, 01/01/2008 HIV SCREENING Completed 09/23/2011 MENINGITIS IMMUNIZATION Aged Out 03/26/20, 03/25/2015, 03/03/2010, Additional history exists No longer eligible based on patient's age to complete this topic HPV IMMUNIZATION Aged Out No longer e ligible based on patient's age to complete this topic IPV IMMUNIZATION Aged Out No longer e ligible based on patient's age to complete this topic Pneumococcal Vaccine: Pediatrics (0 to 5 Years) and At-Risk Patients (6 to 64 Years) Aged Out No longer eligible based on patient's age to complete this topic RSV MONOCLONAL ANTIBODY Aged Out No l onger eligible based on patient's age to complete this topic Care Teams Basket Grader Relationship Specialty Start Date End Date Medardo Graf MD PCP - General Family Practice 11/15/18 Umu Duke MD [address] [address] technical publications writer 03/16/20
--- OUTSIDE RECORDS SUMMARY | 2023-05-08 09:43 | XMS_ITS | Referral Summary ---
Author Name Unknown Organization [facility] Address [address] [place] [address] Care Team Providers Care Vp & General Counsel Name Role Phone Medardo Graf MD Primary Care Provider [phone] Umu Duke MD Unavailable [phone] Allergies Active Allergy Reactions Criticality Noted [...] Overview: Added automatically from request for surgery [id number] Vaginal delivery 04/28/2012 Labor and delivery, indication for care 04/25/19 13 Uterine contractions or other obstetric complain ts 04/08/2012 Head ache 11/04/2011 Immunizations Name Administration Dates Next Due Influenza (intradermal) 11/21/2017 Td (Adult), Adsorbed 04/12/2004 Social History Tobacco Use Types Packs/Day Years [...] 165.1 cm (5' 5) 02/28/2021 2:12 PM POST HOLE DIGGER Body Mass Index 31.52 02/28/2021 2:12 PM POST HOLE DIGGER Plan of Treatment Not on file Care Teams Vp & General Counsel Relationship Specialty Start Date End Date Medardo Graf MD PCP - General Family Practice 11/15/18 Umu Duke MD [address] [address] incubator tender 03/16/20
--- OUTSIDE RECORDS SUMMARY | 2023-05-08 09:43 | XMS_ITS | Encounter Summary ---
Author Name Unknown Organization [place] Address [address] [place] [address] Care Team Providers Care A R Specialist Name Role Phone Medardo Graf MD Primary Care Provider [phone] Noelle Khan MD Unavailable [phone] Umu Duke MD Unavailable [phone] Umu Duke MD Unavailable [phone] Encounter Details Date Type Department Care Team (Late st Contact Info) Description 02/28/2021 Documentation Only INTERFACED REPORT Unknown, [...] have Coronavirus / COVID-19? No / Unsure 02/28/2021 2:08 PM REMOTE SENSING SURVEYOR documented as of this encounter Plan of Treatment Not on file documented as of this encounter Visit Diagnoses Not on filedocumented in this encounter Additional Health Concerns Infection Onset Date Last Indicated Resolved Time Influenza 04/04/2021 04/04/2021 04/11/2021 11:4 1 PM REMOTE SENSING SURVEYOR Assessment Noted Time PHQ-9 Depression Total Score: 2 06/01/19 21 1:03 PM REMOTE SENSING SURVEYOR documented as of this encounter Care Teams A R Specialist Relationship Specialty Start Date End Date Medardo Graf MD PCP - General Family Practice 11/15/18 Noelle Khan MD [address] [address] Assigned Pulmonology Provider 02/04/20 11/09/21 Umu Duke MD [address] [place], [place] [address] electrical design technologist 03/16/20 Umu Duke MD [address] [place], [place] [id number] Assigned OBGYN Provider 06/04/2002/01 documented as of this encounter
--- OUTSIDE RECORDS SUMMARY | 2023-05-08 09:43 | XMS_ITS | Encounter Summary ---
Author Name Unknown Organization [facility] Address [address], [place] [address] Care Team Providers Care Relay Shop Supervisor Name Role Phone Needs Pcp, Assignment Primary Care Provider Reason for Visit * Procedure/Equipment (Routine) - Incomplete Specialty Diagnoses / Procedures Referred By Contac t Referred To Contact Diagnoses Acute pain of left shoulder Procedures XR Shoulder Lt 2+ Views Heriberto Pearce MD [address] [place] [address] Referral ID Status Reason Start Date Expiration Date V isits Requested Visits Authorized [id number] Incomplete 07/18/2022 10/17/2023 1 1 Encounter Details Date Type Department Care Team Description 07/18/2022 8:10 AM CDT Ancillary Procedure [place] [address] [place] [address]. [place] [address] [facility] [place], [place] [id number] Acute pain of left shoulder Social History Tobacco Use Types Packs/Day Years [...] Department Care Team Description 05/23/2023 9:00 AM SPEECH THERAPY ASSISTANT Appointment [facility] [address] [place] [address] documented as of this encounter Procedures Procedure Name Priority Date/Time Associated Diagnosis Comments XR SHOULDER LT 2+ VIEWS Routine 07/18/2022 8:22 AM CDT Acute pain of left shoulder documented in this encounter Results * XR Shoulder Lt 2+ Views (07/18/2022 8:22 AM CDT) Anatomical Region Laterality Modality Upper Extremity, Shoulder Digita l Radiography 07/18/2022 8:08 AM CDT Impressions 07/18/2022 8:27 AM CDT COMPARISON: ??None. FINDINGS: ??Bony structures appear unremarkable. ??Joint spaces are within normal limits. ??There is no dislocation or significant degenerative change. Cervical fusion hardware. Narrative Procedure Note Artur Acuna MD - 07/18/2022 IMPRESSION COMPARISON: None. FINDINGS: Bony structures appear unremarkable. Joint spaces are withinnormal limits. There is no dislocation or significant degenerativechange. Cervical fusion hardware. Heriberto Pearce MD RAD [facility] documented in this encounter Visit Diagnoses Diagnosis Acute pain of left shoulder documented in this encounter Care Teams Relay Shop Supervisor Relationship Specialty Start Date End Date Needs Pcp, [place] [address] PCP - General 08/12/14 documented as of this encounter
--- OUTSIDE RECORDS SUMMARY | 2023-05-08 09:43 | XMS_ITS | Encounter Summary ---
Author Name Unknown Organization [facility] Address [address], [place] [address] Care Team Providers Care Umbrella Tipper Hand Name Role Phone Needs Pcp, Assignment Primary Care Provider [phone] Reason for Referral * Procedure/Equipment (Routine) - Incomplete Specialty Diagnoses / Procedures Referred By Hiram t Referred To Contact Diagnoses Acute pain of left shoulder Procedures XR Shoulder Lt 2+ Views Heriberto Pearce MD [address] [place] [address] Referral ID Status Reason Start Date Expiration Date V isits Requested Visits Authorized [id number] Incomplete 07/18/2022 10/17/2023 1 1 * Consult/Transfer Care (Routine) - New Request Specialty Diagnoses / Procedures Referred By Hiram viveros Referred To Contact Orthopedics Diagnoses Acute pain of left shoulder Heriberto Pearce MD [address] [place] [address] Referral ID Status Reason Start Date Expiration Date V isits Requested Visits Authorized [id number] New Request 07/18/2022 07/19/2023 1 1 Scheduling Instructions Your clinician has recommended an appointment with Gricel Burkett. You can quickly make your appointment online at [employer]/schedule. You can also call [phone] for help scheduling your appointment. We suggest you call your health insurance company about your coverage and benefits for this appointment. Question Answer Appointment Urgency? Non-Urgent The patient should be seen by: Orthopaedic Non-Surgeon Reason for Visit * Reason Comments CONSULT Encounter Details Date Type Department Care Team Description 07/18/2022 7:00 AM CDT Office Visit [facility] [address] [facility] [address] [place] [address]. [place], [place] [address] Heriberto Pearce MD [address] [place], [place] [id number] Neck pain (Primary Dx); Acute pain of left shoulder; Left arm pain; Medication management Social History Tobacco Use Types [...] Pulse 103 07/18/2022 7:04 AM CDT Temperature - - Respiratory Rate - - Oxygen Saturation - - Inhaled Oxygen Concentration - - Weight 83.9 kg (185 lb) 07/18/2022 7:04 AM CDT Height 167.6 cm (5' 6) 07/18/2022 7:04 AM CDT Body Mass Index 29.86 07/18/2022 7:04 AM CDT documented in this encounter Patient Instructions * Patient Instructions* Heriberto Pearce MD - 07/18/2022 7:00 AM CDT The main takeaways from our visit today are: Release of information Sign release of information to request records from [facility] (office visits, injection records) Labs Urine drug test Imaging Left shoulder x-ray Medications Stop Gabapentin. Start Methocarbamol (Robaxin) 500 mg, 1 tablet every 6 hours as needed (up to 4 times daily). Do not drive, fly a plane or operate machinery on this medication as it can cause drowsiness. Lyrica 75 mg, 1 capsule daily FOR 5 days. If pain persists, increase Lyrica to 75 mg, 1 capsule 3 times daily FOR 5 days. If nerve pain persists, then increase Lyrica to 75 mg, 2 capsules twice daily. Do not drive, fly a plane or operate machinery on Lyrica medication as it can cause drowsiness. Side effects include dizziness, leg swelling, depression and suicidal thoughts. Allow 3-5 days for dizziness/drowsiness to resolve before proceeding to the next dose. Stop the medication and go to the ERif you develop depressive or suicidal thoughts. Space Lyrica and Robaxin apart by at least 4 hours. Stop Methocarbamol if you are drowsy with the combination of these 2 medications. Referrals Orthopedic surgery for Left shoulder pain Follow up We will call you to schedule a follow-up appointment after receiving the results of her urine drug test. Heriberto Pearce MD Interventional Pain Management documented in this encounter Progress Notes * Heriberto Pearce MD - 07/18/2022 7:00 AM CDT Chief Complaint Neck, Left shoulder and Left arm pain History of Present Illness Patient is a 42 year-old female with a h/o C6-[address] Medina in 2011.She presents with a chief complaint of neck, left shoulder and left arm pain. She reports radiationof neck pain into the posterior aspect of the left arm and occasionally into the medial aspect of the left forearm. Pain was unresponsive to Flexeril and Medrol dosepack. She saw Meghan Ponce CNP at [facility] Orthopedics (Spine Clinic) on 07/09/22 - cervical scheduled for 07/24/21, EMG 08/08/22. Started on Neurontin and a one time Rx of [place]. She subsequently consulted with a provider and received cervical epidural steroid injection at [facility]. She states JOSE ELIAS was performed 5 days ago and didn't help. I explained to patient that it can take up to 2 weeks for the injection to work. Patient states she is here because she was dissatisfied with her care at [facility] Spine and nobody is doing anything to help my pain. Symptoms: Pain is located: neck, left shoulder, left arm Onset of pain: 3+ weeks ago. No known cause. Pain severity: 01/21 Timing: constant Quality: aching, dull, sharp, and stabbing Trend: Worsening Pain is aggravated by: Sitting. Lifting. Reaching, Laying down. Pain is improved by: [place] provides some relief Associated symptoms: Numbness/tingling: left upper extremity Weakness: left upper extremity Bladder/bowel incontinence: No ROS: Positive for: Joint pain, Insomnia, Depression, Anxiety, and Irritability. Otherwise negative. Family History: FAMILY HISTORY: reviewed in EMR Family history of Rheumatoid arthritis: No Family history of Osteoarthritis: No Family history of Chronic pain: No Family history of Spine surgery: Yes Family history of Joint replacement surgery: Yes Family history of Alcohol/Chemical dependency treatment: No Past Medical History Past Medical History: Diagnosis Date Cervical radiculopathy at C6 Complication of anesthesia Nausea/Vomiting Endometriosis Patient Active Problem List Diagnosis DJD (degenerative joint disease) of cervical spine ([facility]) H/O breast biopsy Hypothyroid ([facility]) History of endometrial ablation Hx of breast surgery Submucous leiomyoma of uterus Past Surgical History Past Surgical History: Procedure Laterality Date BREAST AUGMENTATION Bilateral 2014 BREAST BIOPSY Right 2018 CERVICAL DISC SURGERY 2012 COSMETIC SURGERY breast lift and augmentation ENDOMET ABLAT THERM W/O SCOPE GUID 04/27/13 Path benign TONSIL AND ADENOIDECTOMY LW Problem: Tonsillectomy & Adenoidectomy S/p LW Onset: 1984 WISDOM TEETH EXTRACTION Medications: Current medications reviewed by myself Outpatient Medications Prior to Visit Medication Sig Dispense Refill cyclobenzaprine (FLEXERIL) 5 MG tablet Take 1 Tablet (5 mg) by mouth at bedtime as needed; may repeat x 1 for Muscle Spasms. 30 Tablet 0 gabapentin (NEURONTIN) 300 MG capsule Take 1 Capsule (300 mg) by mouth three times a day. 270 Capsule 3 HYDROcodone-acetaminophen (NORCO) 5-325 MG tablet Take 1 Tablet by mouth two times daily as needed for Pain. 10 Tablet 0 levothyroxine (SYNTHROID) 50 MCG tablet Take 50 mcg by mouth daily. (Patient not taking: Reported on 07/18/2022) methylPREDNISolone (MEDROL 21 TABLET DOSEPACK) 4 MG tablet Follow package directions (Patient not taking: Reported on 07/18/2022) 21 Tablet 0 norgestrel-ethinyl estradiol (LO/OVRAL) 0.3-30 MG-MCG tablet Take 1 Tablet by mouth daily. Take continuously (Patient not taking: Reported on 04/04/2020) 84 Tablet 3 valACYclovir (VALTREX) 1 g tablet Take by mouth as needed. (Patient not taking: Reported on 07/02/2022) valACYclovir (VALTREX) 500 MG tablet Take 1 Tablet (500 mg) by mouth as needed. (Patient not taking: Reported on 07/18/2022) No facility-administered medications prior to visit. Allergies: Allergies Allergen Reactions Zolpidem Tartrate Paradoxical reaction I have reviewed the patient's medication allergies. Physical Examination: Vital Signs: BP (!) 124/98 (BP Cuff Size: Regular - Long) Pulse (!) 103 Ht 1.676 m (5' 6) Wt83.9 kg (185 lb) BMI 29.86 kg/m?? ; Estimated body mass index is 29.86 kg/m?? as calculated from the following: Height as of this encounter: 1.676 m (5' 6). Weight as of this encounter: 83.9 kg (185 lb). Cold Strip Feeder present - Jesse Whitney RN Constitutional - the patient is well nourished, well developed, and in no apparent distress, vital signs as above Psych - alert, cooperative, normal attention span and conversation. Neuro: Alert and oriented x 3 Upper extremities: sensation - intact throughout upper extremities strength - 5/5 strength in all upper extremity muscle groups Lower extremities: sensation - intact throughout lower extremities strength - 5/5 strength in all lower extremity muscle groups Musculoskeletal: Gait - Non-antalgic. No ambulatory assistive device. Cervical range of motion: flexion, extension and rotation are limited by pain Spurling's maneuver - negative Cervical facet loading - positive on the left Cervical paraspinal muscles - tender to palpation bilaterally Shoulder musculature - nontender Shoulder range of motion - normal bilaterally Rotator cuff impingement testing - positive on the left Thoracic paraspinal muscles - non-tender to palpation Lumbar paraspinal muscles - non-tender to palpation IMAGING XR Left shoulder 07/18/22 FINDINGS: Bony structures appear unremarkable. Joint spaces are within normal limits. There is no dislocation or significant degenerative change. Cervical fusion hardware. XR was obtained after today's visit. Reviewed. Patient informed of XR finding via [employer] Cervical Spine MRI 07/03/22 IMPRESSION: 1. Previous C6-7 disc arthroplasty. 2. No significant spinal canal stenosis or neural foraminal narrowing outside the region obscured by artifact. Cervical Spine CT 07/09/22 IMPRESSION: 1. Previous C6-7 disc arthroplasty. 2. Mild spinal canal stenosis at C5-6. 3. Mild foraminal narrowing at C5-6 and C6-7. Diagnoses: 1. Neck pain 2. Acute pain of left shoulder 3. Left arm pain 4. Medication management [place] issues: Medical disability: No Weatherseal Technician or litigation involved with this issue: No Workman's Compensation injury: No Prior history of car accidents causing neck or low back injuries: No Prior treatments: Traction, TENS Unit, Massage, Chiropractic treatment, Acupuncture, Heat, Icing, Home exercises, Medications, and Spine injections Prior injections: Cervical ISAAC at [facility] 5 days ago Prior medications: Flexeril and Medrol Dosepak - no relief Current pain management with - [place] 5-325 mg, 1-2 tabs as needed per day for severe pain, Gabapentin 300 mg tid - no relief. Psychosocial hx: History of substance use disorder: none in patient's chart Psychiatric history: none in patient's chart. 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 Marital status - Assessment/Plan: Neck pain Left arm pain Acute pain of left shoulder Explained to patient that it can take up to 2 weeks for recent Cervical ISAAC to work. Possible contribution to pain from left shoulder pathology. Ordered left shoulder x-ray. Recommended and placed orthopedic surgery (non-surgical) referral for further evaluation and treatment of left shoulder pain. - Orthopaedic Consult Adult/Peds - XR Shoulder Lt 2+ Views; Future - EMG scheduled for 08/08/22 - Stop Gabapentin - pregabalin (LYRICA) 75 MG capsule; Take 1 Capsule (75 mg) by mouth two times a day. Patient givenuptitration instructions to increase Lyrica dose up to 150 mg bid if needed. - methocarbamol (Robaxin) 500 mg q.6h p.r.n. Medication side effects were discussed in detail with the patient verbalized understanding. Medication management - Urine Drug Comprehensive Panel (with Confirmation); (last [place] dose 3 days ago) Patient requested [place] and told me she knows I will assume she is drug-seeking for requesting the medication. I assured her this is not the case as her medical records and [place] STEEP TENDER do not suggest aberrant drug-related behavior. Opioid Risk Assessment Denies any illicit substance/drug use. Denies any any overdose. Denies any alcohol use. Denies any suicidal ideation, plan or attempt. Denies any sharing, overuse, abuse or diversion of prescription medication. Denies any significant drowsiness, dizziness, falls, severe constipation or other concerning side effect. Monitored risk factors including advanced age, risk of falls, potentially sedatingmedications. [place] STEEP TENDER: Reviewed today, no concerns noted. DIRE score of 17 (D = 2, I = 3, R 10, E = 2) - patient is an appropriate candidate for opioid therapy. Opioid use discussion: Patient feels the opioid therapy helped with pain control and function in the past - able to tolerate. Expresses understanding of risks of continuing with opioid therapy. Awareof options to taper/discontinue but wishes to continue on opioid therapy due to the pain. Realisticexpectations and goals of chronic opioid therapy have been discussed with patient. Alternatives to o pioid therapy have been discussed. Urine drug test ordered today. Opioid agreement/contract to be reviewed and signed by patient if UDT is acceptable with plans to continue [place] 5325 mg, 1 tablet as needed at bedtime as this was helpful in the past. Patient will be called to schedule a follow-up appointment after UDT is resulted. Lacey recently received care at [facility]. Patient signed SAUD to request records from [facility]. Recommended centralized pain management with a single pain clinic to prevent unsafe fragmented care. Informed patient I will not be able to continue medication management if she transfers care to another pain clinic outside of the [facility]. Patient noted she might transfer care to [facility] in [place] in the future because it is closer to home. Informed patient continuation of opioid therapy will be at the discretion of the treating clinician at that facility. NB: This note was dictated using a voice recognition technology. Though proofread, small errors mayexist. Heriberto Pearce MD Interventional Pain Management documented in this encounter Plan of Treatment Upcoming Encounters Date Type Department Care Team Description 05/23/2023 9:00 AM TEST AUTOMATION ARCHITECT Appointment [facility] [place] [id number] [place], [place] [id number] Scheduled Referrals Name Type Priority Associated Diagnoses Orde r Schedule Orthopaedic Consult Adult/Peds Referral Routine Acute pain of left shoulder Ordered: 07/18/2022 documented as of this encounter Results * (ABNORMAL) Urine Drug Comprehensive Panel (with Confirmation) (07/18/2022 8:29 AM CDT) [id number] am, urine Not Detected Not Detected 07/22/2022 12:56 PM CDT [facility] Alprazolam, urine Not Detected Not Detected 01/2023 12:56 PM CDT [facility] Amitryptyline, urine Not Detected Not Detected 07/22/2022 12:56 PM CDT [facility] Amphetamine, urine Not Detected Not Detected 07/22/2022 12:56 PM CDT [facility] Benzoylecgonine, urine Not Detected Not Detected 07/22/2022 12:56 PM CDT [facility] Buprenorphine, urine Not Detected Not Detected 07/22/2022 12:56 PM CDT [facility] Bupropion, urine Not Detected Not Detected 07/13 12:56 PM CDT [facility] Butalbital, urine Not Detected Not Detected 01/2023 12:56 PM CDT [facility] Carisoprodol, urine Not Detected Not Detected 07/22/2022 12:56 PM CDT [facility] Citalopram, urine Not Detected Not Detected 01/2023 12:56 PM CDT [facility] Clomipromine, urine Not Detected Not Detected 07/22/2022 12:56 PM CDT [facility] Clonazepam Metab 7-Aminoclonazepam , urine Not Detected Not Detected 07/22/2022 12:56 PM CDT [facility] Clonazepam, urine Not Detected Not Detected 01/2023 12:56 PM CDT [facility] Cocaine, urine Not Detected Not Detected 2022 12:56 PM CDT [facility] Codeine, urine Not Detected Not Detected 2022 12:56 PM [facility] Cyclobenzaprine, urine Confirmed Positive(A) Not Detected 07/22/2022 12:56 PM [facility] Desipramine, urine Not Detected Not Detected 07/22/2022 12:56 PM [facility] Diazepam, urine Not Detected Not Detected 07/22 12:56 PM [facility] Doxepin, urine Not Detected Not Detected 2022 12:56 PM [facility] Ecstasy MDMA, urine Not Detected Not Detected 07/22/2022 12:56 PM [facility] Ecstasy Metab MDA, urine Not Detected Not Detected 07/22/2022 12:56 PM [facility] Fentanyl, urine Not Detected Not Detected 07/22 12:56 PM [facility] Fluoxetine, urine Not Detected Not Detected 01/2023 12:56 PM [facility] Gabapentin, urine Confirmed Positive(A) Not Detected 07/22/2022 12:56 PM [facility] Heroin Metab 6-acetylmorphine, urine Not Detected Not Detected 07/22/2022 12:56 PM [facility] Hydrocodone, urine Not Detected Not Detected 07/22/2022 12:56 PM [facility] Hydromorphone, urine Not Detected Not Detected 07/22/2022 12:56 PM [facility] Imipramine, urine Not Detected Not Detected 01/2023 12:56 PM [facility] Ketamine, urine Not Detected Not Detected 07/22 12:56 PM [facility] Lorazepam, urine Not Detected Not Detected 07/13 12:56 PM [facility] Marijuana Metabolite, urine Not Detected Not Detected 07/22/2022 12:56 PM [facility] Meperidine, urine Not Detected Not Detected 01/2023 12:56 PM [facility] Meprobamate, urine Not Detected Not Detected 07/22/2022 12:56 PM [facility] Methadone Metab EDDP, urine Not Detected Not Detected 07/22/2022 12:56 PM [facility] Methadone, urine Not Detected Not Detected 07/13 12:56 PM [facility] Methamphetamine, urine Not Detected Not Detected 07/22/2022 12:56 PM [facility] Methylphenidate, urine Not Detected Not Detected 07/22/2022 12:56 PM CDT [facility] Mirtazapine, urine Not Detected Not Detected 07/22/2022 12:56 PM CDT [facility] Morphine, urine Not Detected Not Detected 07/22 12:56 PM CDT [facility] Norbuprenorphine, urine Not Detected Not Detected 07/22/2022 12:56 PM CDT [facility] Nordiazepam, urine Not Detected Not Detected 07/22/2022 12:56 PM CDT [facility] Desmethyldoxapine , urine Not Detected Not Detected 07/22/2022 12:56 PM CDT [facility] Norfentanyl, urine Not Detected Not Detected 07/22/2022 12:56 PM CDT [facility] Nortriptyline, urine Not Detected Not Detected 07/22/2022 12:56 PM CDT [facility] O-desmethylvenlaf axine, urine Not Detected Not Detected 07/22/2022 12:56 PM CDT [facility] Oxazepam, urine Not Detected Not Detected 07/22 12:56 PM CDT [facility] Oxycodone, urine Not Detected Not Detected 07/13 12:56 PM CDT [facility] Oxymorphone, urine Not Detected Not Detected 07/22/2022 12:56 PM CDT [facility] Paroxatine, urine Not Detected Not Detected 01/2023 12:56 PM CDT [facility] Phencyclidine, urine Not Detected Not Detected 07/22/2022 12:56 PM CDT [facility] Phenobarbital, urine Not Detected Not Detected 07/22/2022 12:56 PM CDT [facility] Pregabalin, urine Not Detected Not Detected 01/2023 12:56 PM CDT [facility] Quetiapine, urine Not Detected Not Detected 01/2023 12:56 PM CDT [facility] Sertraline, urine Not Detected Not Detected 01/2023 12:56 PM CDT [facility] Tapentadol, urine Not Detected Not Detected 01/2023 12:56 PM CDT [facility] Temazepam, urine Not Detected Not Detected 07/13 12:56 PM CDT [facility] Tramadol, urine Not Detected Not Detected 07/22 12:56 PM CDT [facility] Venlafaxine, urine Not Detected Not Detected 07/22/2022 12:56 PM [facility] Zolpidem, urine Not Detected Not Detected 07/22 12:56 PM [facility] Creatinine, Urine, Random 26 >20 mg/dL 07/22/2022 12:56 PM [facility] Medication Check Inconsistent with Med List(A) Consistent with Med List 07/22/2022 12:56 PM [facility] Patient Medication History Current Outpatient Medications Ordered in [facility]: cyclobenzaprin e (FLEXERIL) 5 MG tablet gabapentin (NEURONTIN) 300 MG capsule HYDROcodone-ac etaminophen (NORCO) 5-325 MG tablet levothyroxine (SYNTHROID) 50 MCG tablet methocarbamol (ROBAXIN) 500 MG tablet methylPREDNISo lone (MEDROL 21 TABLET DOSEPACK) 4 MG tablet norgestrel-eth inyl estradiol (LO/OVRAL) 0.3-30 MG-MCG tablet pregabalin (LYRICA) 75 MG capsule valACYclovir (VALTREX) 1 g tablet valACYclovir (VALTREX) 500 MG tablet No current [facility]-ordered facility-admin istered medications on file. 07/22/2022 12:56 PM [facility] Medication Interpretation Not prescribed and detected: None Prescribed and not detected: Hydrocodone prescribed and not detected Pregabalin prescribed and not detected Prescribed and detected: Cyclobenzaprin e prescribed and detected Gabapentin prescribed and detected 07/22/2022 12:56 PM [facility] Urine Non-blood Collection / Unknown 07/18/2022 8:29 AM CDT 07/18/2022 8:29 AM CDT [facility] - 07/22/2022 12:56 PM [facility] The absence of expected drug(s) and/or drug [...] developed and its performance characteristics validated by [facility]. It has not been cleared nor approved by the FDA> Heriberto A Adekola MD [address] [place] [address], [facility] [phone] * XR Shoulder Lt 2+ Views (07/18/2022 [...] in this encounter Visit Diagnoses Diagnosis Neck pain- Primary Cervicalgia Acute pain of left shoulder Left arm pain Pain in limb Medication management Encounter for other specified aftercare Acute pain of left shoulder documented in this encounter Care Teams Umbrella Tipper Hand Relationship Specialty Start Date End Date Needs Pcp, [place] [address] PCP - General 08/12/14 documented as of this encounter
--- OUTSIDE RECORDS SUMMARY | 2023-05-08 09:43 | XMS_ITS | Encounter Summary ---
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 [address] [facility] [place] [address] Referral ID Status Reason Start Date Expiration Date V isits Requested Visits Authorized [id number] New Request 07/19/2022 07/19/[id number] Encounter Details Date Type Department Care Team Description 07/31/2022 3:15 PM CDT Therapy [facility] [address] [address] [place] [address] [place] [address] Cervical radiculopathy (Primary Dx) Social History Tobacco [...] as of this encounter Progress Notes * Gautam Byrd, PT - 07/31/2022 3:15 PM CDT [facility] Physical Therapy-Cervical/Thoracic Evaluation/Plan of Care Initial Certification Period: 07/31/2022 to 10/29/22 Referring Provider: Meghan Ponce Visit Diagnosis: 1. 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 Sleeping is not going well, and not sleeping without a scary level of drugs and has tried sleeping in a recliner and no difference. Can't even nap, and cant relax enough to get it manageable. Hadan artificial disk replacement in 2011, and hasn't had a problem with the neck since then. Nothing traumatic, but woke up one day with stabbing pain, and has been trying to figure out what is going on with it. [facility], and this pain was 10x worse than it was back then. Prior had been able to sleep but this is not the case this time. Been frustrated withcare at [facility], did CT scan and MRI and because of the disc cant show things clearly. Last one had years of trying before the surgery, and knows it can't be the disc and looking forward to Friday. Paintoday is 9/10, and always at 9/10, and does get to 10/10. Only thing that helps is ice and narcotics. Tried DC and accupunture without success. Tried heat, steroids, steroid injection, on lyrica which is not helping. Laying down makes it a lot worse, and if she stands for a long time without putting her arm over her head it will get worse. Had MRI of the shoulder, and did show some arthritis. 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 Works on the computer all day, and is at home. Goals for PT areto get out of pain. Patient Therapy Goals: Resume previous level of activity symptom free. Past Medical History: Patient has a current medication list which includes the following prescription(s): cyclobenzaprine, gabapentin, hydrocodone- acetaminophen, ketoconazole, liothyronine, methocarbamol, methylprednisolone, norgestrel-ethinyl estradiol, pregabalin, spironolactone, valacyclovir, and valacyclovir. Patient has a past medical history of Cervical radiculopathy at C6, Complication of anesthesia, andEndometriosis. Recently Experienced (Red Flags): None Recently Experienced (Yellow Flags): Pain avoidance behavior Risk Factors: Age > 40, Long history of neck pain, Anxiety/worrisome attitude, Imaging, High level of initial pain, and Highly monotonous work Previous treatment: None Benefited from previous treatment: not applicable Pain Details: Current pain intensity level: 10 Pain location: L side pain Additional symptoms: typically goes into forearm and can be tingling into the thumb and pointer finger, and back of arm Sleep interruptions: Yes: several times per night., Difficulty getting comfortable in order to sleep., Pain with transitions in bed. Time of day worst pain: constant Pain quality: Aching, Burning, Stabbing, Shooting, Stiffness, and Tightness Aggravating factors: Sleep (Left, Right), Sitting, Bending, Twisting, Carrying, Lifting, Seatbelt, Overhead activities, Household activities, Yardwork, Leisure, and Sports activities Relieving factors: Heat, Icing, and Medication Work/Leisure/Sport: [employer], [employer], trinket Patient History: Moderate Complexity: 1-2 personal factors and/or comorbidities that impact plan of care: prior cervical disc replacement OBJECTIVE Observation: guarded, forward head, and rounded shoulders Screening: Thoracic: Within normal limits Shoulder: Hands behind head within normal limits. Hands behind back within normal limits. Hands on opposite shoulders within normal Cervical Artery Screen: Hypertension: NO Recent Trauma: No Acute onset of pain (unlike any other): No Vertebral Artery Test: Negative ROM: Flexion: chin to chest, stretch Extension: 100%, painful Rotation left: 65 degrees, painful on L Rotation right: 65 degrees, painful on L Cervical Strength: Supine neck flexion (tuck and lift) endurance test: 1 seconds Neurological: Myotomes: Shoulder Elevation (C4): WNL Shoulder Abduction: (C5): WNL Elbow Flexion (C5, 6): WNL Elbow Extension (C5, 6): Impaired Wrist Extension (C6): WNL Wrist Flexion (C7): Impaired Finger Adduction (C8): WNL Finger Abduction (T1): WNL Reflexes: C5, C6, C7, 2+ B Flexibility: Decreased flexibility in: cervical facets and suboccipitals Joint mobility: Upper Cervical Hypomobile, Pain reproduction Lower Cervical Hypomobile, Pain reproduction CT junction Hypomobile, Pain reproduction Palpation: Tenderness to: Bilateral suboccipitals, cervical paraspinals, and cervical facets Proprioception: Not tested Special Tests: Distraction: Positive Spurling A left: Negative Radial nerve neurodynamic test: Negative Median nerve neurodynamic test: Positive Ulnar nerve neurodynamic test: Negative Alar Ligament: Negative Transverse Ligament: Negative PT - Musculoskeletal - Shoulder QuickDASH (0-100, 0 being best): 63.6 Clinical Examination: Moderate Complexity: Addressed 3 elements from body structures and functions (see above), and/or functional limitations as noted below. Today's Intervention: Physical Therapy Evaluation was completed and the patient was educated on the condition, planned therapy intervention and expectations from treatment. Therapeutic exercise x 10 minutes: Patient was provided with a home exercise program. Patient was given verbal, visual, and tactile cues for exercise performance. Expressed optimism for patients cervical radiculopathy, and that PT is the right place for them andthat this will get better with time. Educated that PT has seen this before and that with some hard work patient will get back to their active lifestyle in no time. Encouraged patient to remain active. Self cervical traction with towel - cues for technique Seated median nerve glide 2x30 seconds - cues for technique Manual therapy x 9 minutes: Supine cervical traction grade II-III - improved pain Supine cervical segmental traction at C5-C6 grade II-III - improved pain following Access Code: [email or web address] URL: [email or web address] Date: 07/31/2022 Prepared by: Gautam Byrd Exercises [...] 10-20 reps - slow and controlled speed Timed Code Treatment Minutes: 19 Total Treatment Minutes: 40 ASSESSMENT Therapist Impression/Summary: Lacey presents to physical therapy with an MD diagnosis of left arm pain, and a PT diagnosis of cervical radiculopathy based on the above tests and measures. Did have positive response to segmentalcervical traction. Will follow up following her visit with spine surgeon on Friday. Patient is currently limited from her active lifestyle. Patient will benefit from skilled PT services to return to sleeping with out pain. PT Clinical Presentation: Moderate Complexity: Evolving Clinical Presentation with changing clinical characteristics Clinical Decision Making: Low Complexity Recommendations/Equipment: No additional recommendations at this time Significant Impairments: Pain, Muscle tightness/decreased flexibility, Muscle spasm, Muscle atrophy, Muscle weakness, Muscular imbalances, Joint hypomobility, ROM Limitation, Proprioception deficits,Postural restrictions, Neurological signs/symptoms, Hyperalgesia Functional Limitations:poor body mechanics, difficulty sleeping, difficulty dressing, difficulty with household tasks, difficulty meeting work demands, and difficulty with sports/leisure activities Goals/Functional Outcomes: HEP/Independent Management: Demonstrate independence with HEP and self- management following each treatment session ADL's: Resume previous sleep pattern without awakening due to symptoms in 6-8 weeks. Perform home management tasks with ease in 8-12 weeks. Sports/Leisure: Return to prior level of leisure or recreational activities, including flying without an increase in symptoms or limitations in 8-12 weeks. Barriers to Goal Achievement or Learning: none Prognosis:good PLAN Planned Intervention/Education: ADL/Self Management, Aquatic therapy, Dry Needling, Education, Electrical Stimulation, Gait training, Heat/ice, Manual Therapy, Mechanical Traction, Neuromuscular Re-education, Orthotics, TENS application/self treatment, Therapeutic Activities, Therapeutic Exercise, U ltrasound, Vasopneumatic compression Frequency: 1 x week Duration: 90 days Discharge Plan: Patient will be discharged from therapy when goals are achieved or patient plateausin progress. Informed Consent: The patient was educated on the condition, planned therapy intervention and expectations from treatment. Goals were a collaborative effort of the therapist and patient/caregiver. Risks, benefits and alternatives to treatment have been explained. Patient and/or family in agreement with the care plan. Plan for Next Treatment: loading as tolerated, manual therapy as needed The clinical engineering manager is completed by the therapist and the referring clinician's electronic signature certifies medical necessity for the plan above. documented in this encounter Plan of Treatment Upcoming Encounters Date Type Department Care Team Description 05/23/2023 9:00 AM ARTIFICIAL INSEMINATOR Appointment [facility] [address] [place] [address] Scheduled Referrals Name Type Priority Associated Diagnoses Orde r Schedule Physical Therapy Referral Routine Left arm pain Ordered: 07/19/2022 documented as of this encounter Visit Diagnoses Diagnosis Cervical radiculopathy- Primary Brachial neuritis or radiculitis nos documented in this encounter Care Teams Brick Baker Relationship Specialty Start Date End Date Needs Pcp, [place] [address] PCP - General 08/12/14 documented as of this encounter
--- OUTSIDE RECORDS SUMMARY | 2023-05-08 09:43 | XMS_ITS | Encounter Summary ---
Author Name Unknown Organization [facility] Address [address], [place] [address] Care Team Providers Care Diver Assistant Name Role Phone Needs Pcp, Assignment Primary Care Provider [phone]- [phone] Reason for Visit * Procedure/Equipment (Routine) - Incomplete Specialty Diagnoses / Procedures Referred By Hiram t Referred To Contact Diagnoses Left shoulder pain, unspecified chronicity Procedures MR Shoulder Lt WO IV Cont Kiran Jeter, DO [address] [place] [address] Referral ID Status Reason Start Date Expiration Date V isits Requested Visits Authorized [id number] Incomplete 07/22/2022 10/21/2023 1 1 Encounter Details Date Type Department Care Team Description 07/22/2022 1:30 PM CDT Ancillary Procedure [facility] [place] [address] [place] [address] Kiran Jeter, DO [address] [facility] [place] [address] Left shoulder pain, unspecified chronicity Social History Tobacco Use Types Packs/Day Years [...] Department Care Team Description 05/23/2023 9:00 AM CUSTOMER CARE AGENT Appointment [facility] [address] [place] [address] documented as of this encounter Procedures Procedure Name Priority Date/Time Associated Diagnosis Comments MR SHOULDER LT WO IV CONT STAT 07/22/2022 1:32 PM CDT Left shoulder pain, unspecified chronicity documented in this encounter Results * MR Shoulder Lt [...] 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 Kiran DINERO MRI documented in this encounter Visit Diagnoses Diagnosis Left shoulder pain, unspecified chronicity documented in this encounter Care Teams Diver Assistant Relationship Specialty Start Date End Date Needs Pcp, [place] [address] PCP - General 08/12/14 documented as of this encounter
--- OUTSIDE RECORDS SUMMARY | 2023-05-08 09:44 | XMS_ITS | Encounter Summary ---
Author Name Unknown Organization [facility] Address [address] [address] Care Team Providers Care Foot Drill Operator Name Role Phone Needs Pcp, Assignment Primary Care Provider [phone] Reason for Referral * Procedure/Equipment (Routine) - New Request Specialty Diagnoses / Procedures Referred By Contac t Referred To Contact Diagnoses Cervical radicular pain Neck pain S/P cervical disc replacement Left arm pain Procedures NEURO--EMG ELECTRICAL NERVE CONDUCTION STUDY Meghan Ponce APRN, HOTBED LEVER OPERATOR [address] [facility] [place] [address] Referral ID Status Reason Start Date Expiration Date V isits Requested Visits Authorized [id number] New Request 07/09/2022 10/08/2023 1 1 * Procedure/Equipment (Routine) - New Request Specialty Diagnoses / Procedures Referred By Contac t Referred To Contact Diagnoses Cervical radicular pain Neck pain S/P cervical disc replacement Left arm pain Meghan Ponce APRN, HOTBED LEVER OPERATOR [address] [place] [address] Referral ID Status Reason Start Date Expiration Date V isits Requested Visits Authorized [id number] New Request 07/09/2022 10/08/2023 1 1 Scheduling Instructions Your clinician has recommended an appointment with [facility]. You can quickly make your appointment online at [employer]/schedule. You can also call [phone] for help scheduling your appointment. We suggest you call your health insurance company about your coverage and benefits for this appointment. Question Answer Appointment Urgency? Within 1 Week (Urgent) Reason For Visit Cervical/Lumbar Radiculopathy Number of Limbs Upper Limb Upper Limbs Left * Procedure/Equipment (Routine) - New Request Specialty Diagnoses / Procedures Referred By Hiram t Referred To Contact Diagnoses Cervical radicular pain Neck pain S/P cervical disc replacement Left arm pain Meghan Ponce APRN, HOTBED LEVER OPERATOR [address] [facility] [place] [address] Referral ID Status Reason Start Date Expiration Date V isits Requested Visits Authorized [id number] New Request 07/09/2022 10/08/2023 1 1 Scheduling Instructions . Question Answer Appointment Urgency? Within 1 Week (Urgent) Reason For Visit Cervical/Lumbar Radiculopathy Number of Limbs Upper Limb Upper Limbs Left * Procedure/Equipment (Routine) - Incomplete Specialty Diagnoses / Procedures Referred By Contac t Referred To Contact Diagnoses Cervical radicular pain Neck pain S/P cervical disc replacement Left arm pain Procedures CT Cervical Spine WO IV Cont Meghan Ponce APRN, HOTBED LEVER OPERATOR [address] [facility] [place] [address] Referral ID Status Reason Start Date Expiration Date V isits Requested Visits Authorized [id number] Incomplete 07/09/2022 10/08/2023 1 1 Reason for Visit * Reason Comments CONSULT Cervical spine pain Encounter Details Date Type Department Care Team Description 07/09/2022 7:50 AM CDT Office Visit [facility] [address] [place] [id number] Meghan Ponce APRN, HOTBED LEVER OPERATOR [address] [facility] [place] [address] Cervical radicular pain (Primary Dx); Neck pain; S/P cervical disc replacement; Left arm pain Social History Tobacco Use Types Packs/Day Years [...] - - Weight 83.9 kg (185 lb) 07/09/2022 7:52 AM CDT Height 167.6 cm (5' 6) 07/09/2022 7:52 AM CDT Body Mass Index 29.86 07/09/2022 7:52 AM CDT documented in this encounter Patient Instructions * Patient Instructions* Fabiana Belle RN - 07/09/2022 7:50 AM CDT Plan: 1. A Cervical Ct scan has been ordered for your neck and arm pain. Please schedule at your earliestconvenience. I will contact you with the results. 2. For pain relief: - Trial heat or ice - Over the counter pain relievers -Stretching 3. You have been prescribed a medication called Neurontin/Gabapentin: Take 1 tab at bedtime for 3 days then one tab twice per day for 3 days then one three times per day. If you can not tolerate this medication during the day. You can take all 3 tabs at bedtime. Please note that this medication may cause drowsiness. 4. An EMG of your left arm has been ordered. This is a nerve conduction study test. Please follow up in clinic after your test has been completed. 5. Cougar 5/325 1-2 tabs as needed per day for severe pain only. One time prescription. 6. Blood work has been ordered to rule out inflammation or infection: CBC with differential BMP ESR CRP I will contact you if there are any ABNORMAL results. Meghan Ponce HOTBED LEVER OPERATOR Clinic Schedule is as follows: [place] [facility]: Friday, Friday and [place] [facility]: Friday and Friday Please call [phone] with any questions. Meghan Ponce HOTBED LEVER OPERATOR Orthopedic Spine [facility] Thank you for choosing [facility] for your health care visit today. Advanced Imaging Scheduling: To schedule advanced imaging including MRI's, CT Scans, Ultrasounds and Fluoroscopic guided injections at a [facility] location please call [phone]. Medication Requests: Prescriptions are not filled on weekends or on weekdays after 3:00 PM. For all medication refills: Request a refill using [employer] or contact your pharmacy. [facility] [employer] [address] [place] [address] (Phone) Email: [email or web address] What is Know Your Cost? Know Your Cost is a service for patients and patient/members to call and receive personalized cost information and estimates across our care group. The phone number is (COST) Friday - Friday 8 AM to 5 PM Release of Information: Radiology/Imaging Health Information Management [address] [place] [address] [place] [address] (Phone) [phone] (Phone) [employer] documented in this encounter Progress Notes * Meghan Ponce APRN, BONITA - 07/09/2022 7:50 AM CDT Images from the original note were not included. [facility]: HPI: Lacey Nolasco is a 42 y.o. female that presents today for initial consult for cervical radicular pain on the left. She was recently seen in the [facility] for this pain on 07-02-2022. She has a history of a C6-[address] Ulises Medina in 2011. The pt noted in the [facility] she had pain in a left C7-T1 dermatome. A Cervical MRI was ordered and she was referred to see the Spine clinic. Today she reports 10/10. She states that her pain today is worse than it was prior to her surgery. She states that the flexeril and oral steroids did not help her pain. She feels that her arm is now more numb. She notes pain to her entire LUE but the worst of it today is in a C5-6 dermatome. She is very tearful and states that she has never had pain like this. 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 She is right handed. She denies any injury that caused the pain. She states that the pain started about 3 weeks ago. Past Medical History: Diagnosis Date Cervical radiculopathy at C6 Complication of anesthesia Nausea/Vomiting Endometriosis Patient Active Problem List Diagnosis DJD (degenerative joint disease) of cervical spine ([facility]) H/O breast biopsy Hypothyroid ([facility]) History of endometrial ablation Hx of breast surgery Submucous leiomyoma of uterus Review Of Systems Musculoskeletal: neck pain, history of C6-7 disc replacement Neurologic: left arm pain ROS: 10 point ROS neg other than the symptoms noted above in the HPI. PHYSICAL EXAM: HEENT: Normocephalic, atraumatic. PERRLA. EOM's intact. Neck: Supple, non-tender, without lymphadenopathy. Heart: No peripheral edema Lungs: No SOB Skin: Warm and dry, good capillary refill. Extremities: no edema, cyanosis NEUROLOGICAL EXAMINATION: Mental status: Alert and Oriented x 3, speech is fluent. Cranial nerves: II-XII intact. Motor: Shoulder Abduction: Right: 5/5 Left: 5/5 Biceps: Right: 5/5 Left: 4/5 Triceps: Right: 5/5 Left: 5/5 Wrist Extensors: Right: 5/5 Left: 5/5 Wrist Flexors: Right: 5/5 Left: 5/5 interosseus : Right: 5/5 Left: 5/5 Sensation: intact BUE DTR: Biceps 2 Brachioradialis 2 Gait: Stable, Ambulates without difficulty. Cervical examination reveals good range of motion. Tenderness to palpation of the cervical spine and paraspinous muscles bilaterally. negative Spurling's Imaging: MR Cervical Spine WO IV Cont Order: [id number] Status: Final result Visible to patient: Yes (seen) Next appt: None Dx: Cervical radiculopathy; Injury to cer... Details Reading Physician Reading Date Result Priority Kyle Ybarra MD [phone] 07/03/2022 STAT Narrative & Impression IMPRESSION INDICATION: LUE radiculopathy h/o disc replacement, eval for disc replacement stability TECHNIQUE: MRI of the cervical spine without contrast. COMPARISON: Cervical spine radiographs 07/02/2022, cervical spine MRI 01/21/2011 FINDINGS: Previous disc arthroplasty at C6-7. Prominent susceptibility artifact limits evaluation in this region. Cervical vertebral heights and intervertebral disc heights are otherwise preserved. Grossly normal spinal cord signal and caliber outside the region of artifact. C2-3: No significant canal or foraminal narrowing. C3-4: No significant canal or foraminal narrowing. C4-5: Tiny central disc osteophyte complex. Mild facet arthropathy. No significant canal or foraminal narrowing. C5-6: Mild facet arthropathy. Otherwise obscured by artifact. C6-7: Mild facet arthropathy. Otherwise obscured by artifact. C7-T1: Mild facet arthropathy. Otherwise obscured by artifact. IMPRESSION: 1. Previous C6-7 disc arthroplasty. 2. No significant spinal canal stenosis or neural foraminal narrowing outside the region obscured by artifact. Specimen Collected: 07/03/22 18:27 Last Resulted: 07/03/22 19:04 Assessment: Lacey Nolasco presents today with cervical radicular pain on the left. The patients cervical MRIfilms and dermatome map were reviewed in detail. She has no noted stenosis or herniations noted. However there is some degree of obscurity due to artifact. Due to her ongoing pain I would recommend acervical CT scan. She is very tearful and rates her pain 10/10. She does not understand why the pain is so severe. I explained that I will also obtain labs to rule out an infection. She is requestingpain medications as well. I will have her try Neurontin and I will provide her a 1X RX of Cougar to be used sparingly. She also asked about an injection or nerve block. I did explain that right now looking at her MRI there is nothing to inject. I explained that we will wait to see what the labs and CT scan show. I will also have her undergo a left arm EMG as well. I explained that I do know she isin pain but we need to do more testing in order to find the source of her pain. The plan of care was reviewed with the pt in detail and they would like to proceed as discussed. Plan: 1. A Cervical Ct scan has been ordered for your neck and arm pain. Please schedule at your earliestconvenience. I will contact you with the results. 2. For pain relief: - Trial heat or ice - Over the counter pain relievers -Stretching 3. You have been prescribed a medication called Neurontin/Gabapentin: Take 1 tab at bedtime for 3 days then one tab twice per day for 3 days then one three times per day. If you can not tolerate this medication during the day. You can take all 3 tabs at bedtime. Please note that this medication may cause drowsiness. 4. An EMG of your left arm has been ordered. This is a nerve conduction study test. Please follow up in clinic after your test has been completed. 5. Cougar 5/325 1-2 tabs as needed per day for severe pain only. One time prescription. 6. Blood work has been ordered to rule out inflammation or infection: CBC with differential BMP ESR CRP I will contact you if there are any ABNORMAL results. Meghan Ponce CNP Clinic Schedule is as follows: [place] [facility]: Friday, Friday and [place] [facility]: Friday and Friday Please call [phone] with any questions. Meghan Ponce HOTBED LEVER OPERATOR [facility] Medication Requests: Please be aware that prescriptions are not filled on weekends or on weekdays after 3pm documented in this encounter Plan of Treatment Upcoming Encounters Date Type Department Care Team Description 05/23/2023 9:00 AM ASSISTANT DIRECTOR OF SECURITY Appointment [facility] [address] [place], [place] [address] Scheduled Referrals Name Type Priority Associated Diagnoses Orde r Schedule REHAB--EMG ELECTRICAL NERVE CONDUCTION STUDY (AMB) Referral STAT Cervical radicular pain Neck pain S/P cervical disc replacement Left arm pain Ordered: 07/09/2022 REHAB--EMG ELECTRICAL NERVE CONDUCTION STUDY (AMB) Referral STAT Cervical radicular pain Neck pain S/P cervical disc replacement Left arm pain Ordered: 07/09/2022 documented as of this encounter Results * C-Reactive Protein (07/09/2022 8:49 AM CDT) C-Reactive Protein <0.5 0.0 - 0.7 mg/dL 07/09/2022 9:30 AM CDT [facility] Blood Venipuncture / Unknown 07/09/2022 8:49 AM CDT 07/09/2022 8:54 AM CDT Meghan Ponce APRN, [place] LAB_1 Performing Organization Address [facility] Phone Number [facility] [address] [place] [address], [facility] [phone] * ESR (07/09/2022 8:49 AM CDT) Pathologist [facility] Sedimentation Rate 2 0 - 20 mm/hr 07/09/2022 9:33 AM CDT [facility] Blood Venipuncture / Unknown 07/09/2022 8:49 AM CDT 07/09/2022 8:55 AM CDT Meghan Ponce APRN HOTBED LEVER OPERATOR LAB_1 Performing Organization Address [facility]/ZIP Co de Phone Number [facility] [address] [place] [address], [facility] [phone] * Basic Metabolic Panel (07/09/2022 8:49 AM CDT) Pathologist [facility] Sodium 141 136 - 145 mmol/L 07/09/2022 9:30 AM CDT [facility] Potassium 4.5 3.5 - 5.1 mmol/L 07/09/2022 9:30 AM CDT [facility] Chloride 104 98 - 109 mmol/L 07/09/2022 9:[facility] CO2 27 20 - 29 mmol/L 07/09/2022 9:30 AM [facility] Anion Gap 10 7 - 16 mmol/L 07/09/2022 9:30 AM [facility] Calcium 9.8 8.4 - 10.4 mg/dL 07/09/2022 9:30 AM [facility] BUN 15 7 - 26 mg/dL 07/09/2022 9:30 AM [facility] Creatinine 1.00 0.55 - 1.02 mg/dL 07/09/2022 9:30 AM [facility] Glucose 91 70 - 100 mg/dL 07/09/2022 9:30 AM [facility] Comment:The given reference range is for the fasting state. Non-fasting reference range for glucose is 70 - 180 mg/dL. Hours Fasting 12 07/09/2022 9:30 AM [facility] Comment:coffee with milk GFR, Estimated >60 >60 mL/min/1.7 3m2 07/09/2022 9:30 AM [facility] Blood Venipuncture / Unknown 07/09/2022 8:49 AM CDT 07/09/2022 8:54 AM CDT Meghan Ponce APRN, HOTBED LEVER OPERATOR LAB_1 [facility] [address] [place] [address], [facility] [phone] * Procalcitonin (07/09/2022 8:49 AM CDT) Procalcitonin <0.05 <=0.24 ng/mL 07/09/2022 3:32 PM CDT [facility] Blood Venipuncture / Unknown 07/09/2022 8:49 AM CDT 07/09/2022 8:54 AM CDT Narrative [facility] - 07/09/2022 3:32 PM CDT Differential Diagnosis of Lower Respiratory Tract Infection <0.10: Indicates absence of bacterial infections. Use of antibiotics strongly discouraged. 0.10-0.24: Bacterial infection unlikely. Use of antibiotics is discouraged. 0.25-0.49: Bacterial infection possible. Antibiotic treatment is recommended. >= 0.50: Suggestive of the presence of bacterial infection. Antibiotic treatment is strongly recommended. Differential Diagnosis of Systemic Bacterial Infection <0.50: Systemic infection is not likely. Local bacterial infection is possible. Low risk for progression to severe systemic infection. 0.50-1.99: Systemic infection possible, but various conditions are also known to induce Procalcitonin. Moderate risk for progression to severe systemic infection. The patient should be closely monitored both clinically and by reassessing Procalcitonin levels within 6-24 hours. 2.0-9.99: Systemic infection is likely, unless other causes are known. High risk for progression to severe systemic infection. >= 10.00: Important systemic inflammatory response, almost exclusively due to severe bacterial sepsis or septic shock. High likelihood of severe sepsis or septic shock. Clinicans should use the PCT clinical results in conjunction with other laboratory findings and clinical signs and should interpret the PCT results in the context of the patient's clinical situation. Meghan Ponce APRN, HOTBED LEVER OPERATOR LAB_1 Performing Organization Address City/State/[facility] Co de Phone Number [facility] [address] * CT Cervical Spine WO IV Cont (07/09/2022 8:45 AM CDT) Anatomical Region Laterality Modality C-Spine, Spine Computed Tomogra phy 07/09/2022 8:33 AM CDT Impressions 07/09/2022 11:40 AM CDT INDICATION: Neck pain, acute, prior cervical surgery TECHNIQUE: ??Noncontrast CT scan of the cervical spine with axial acquisition and 2-D reformatting. ? COMPARISON: ??Cervical spine MRI 07/03/2022 ?? FINDINGS: Previous disc arthroplasty at C6-7. Cervical vertebral heights and alignment are preserved. There is straightening of the normal cervical lordosis. C2-3: ??No significant canal or foraminal narrowing. C3-4: ??No significant canal or foraminal narrowing. C4-5: ??Small central disc osteophyte complex. Facet arthropathy. No significant canal or foraminal narrowing. C5-6: ??Disc osteophyte complex eccentric to the left. Facet arthropathy. Mild canal stenosis. Mild bilateral foraminal narrowing. C6-7: ??Postsurgical changes. Residual osteophytic ridging. Facet arthropathy. No significant canal stenosis. Mild left foraminal narrowing. C7-T1: ??Facet arthropathy. No significant canal or foraminal narrowing. IMPRESSION: ?? 1. Previous C6-7 disc arthroplasty. 2. Mild spinal canal stenosis at C5-6. 3. Mild foraminal narrowing at C5-6 and C6-7. Narrative Procedure Note Kyle Ybarra MD - 07/09/2022 IMPRESSION INDICATION: Neck pain, acute, prior cervical surgery TECHNIQUE: Noncontrast CT scan of the cervical spine with axialacquisition and 2-D reformatting. COMPARISON: Cervical spine MRI 07/03/2022 FINDINGS: Previous disc arthroplasty at C6-7. Cervical vertebral heights andalignment are preserved. There is straightening of the normal cervicallordosis. C2-3: No significant canal or foraminal narrowing. C3-4: No significant canal or foraminal narrowing. C4-5: Small central disc osteophyte complex. Facet arthropathy. Nosignificant canal or foraminal narrowing. C5-6: Disc osteophyte complex eccentric to the left. Facet arthropathy.Mild canal stenosis. Mild bilateral foraminal narrowing. C6-7: Postsurgical changes. Residual osteophytic ridging. Facetarthropathy. No significant canal stenosis. Mild left foraminalnarrowing. C7-T1: Facet arthropathy. No significant canal or foraminal narrowing. IMPRESSION: 1. Previous C6-7 disc arthroplasty. 2. Mild spinal canal stenosis at C5-6. 3. Mild foraminal narrowing at C5-6 and C6-7. Meghan Ponce ELECTRIC METER REPAIRER APPRENTICE, HOTBED LEVER OPERATOR RAD CT documented in this encounter Visit Diagnoses Diagnosis Cervical radicular pain- Primary Neck pain Cervicalgia S/P cervical disc replacement Left arm pain Pain in limb Cervical radicular pain Neck pain Cervicalgia S/P cervical disc replacement Left arm pain Pain in limb documented in this encounter Care Teams Foot Drill Operator Relationship Specialty Start Date End Date Needs Pcp, [place] [address] PCP - General 08/12/14 documented as of this encounter
--- OUTSIDE RECORDS SUMMARY | 2023-05-08 09:44 | XMS_ITS | Encounter Summary ---
Author Name Unknown Organization [facility] Address [address] [address] Care Team Providers Care Piano Tuner Name Role Phone Needs Pcp, Assignment Primary Care Provider [phone] Encounter Details Date Type Department Care Team Description 07/09/2022 8:50 AM CDT Lab Visit [facility] [address] [place] [phone] Cervical radicular pain; Neck pain; S/P cervical disc replacement; Left [...] Department Care Team Description 05/23/2023 9:00 AM GLASSWARE FINISHER Appointment [facility] [address] [place] [address] documented as of this encounter Procedures Procedure Name Priority Date/Time Associated Diagnosis Comments CBC AND DIFFERENTIAL PANEL Routine 07/09/2022 8:49 AM CDT Cervical radicular pain Neck pain S/P cervical disc replacement Left arm pain PROCALCITONIN Routine 07/09/2022 8:49 AM CDT Cervical radicular pain Neck pain S/P cervical disc replacement Left arm pain COMPLETE BLOOD COUNT-W/DIFF Routine 07/09/2022 8:49 AM CDT Cervical radicular pain Neck pain S/P cervical disc replacement Left arm pain BASIC METABOLIC PANEL Routine 07/09/2022 8:49 AM CDT Cervical radicular pain Neck pain S/P cervical disc replacement Left arm pain C-REACTIVE PROTEIN Routine 07/09/2022 8: 49 AM CDT Cervical radicular pain Neck pain S/P cervical disc replacement Left arm pain ESR Routine 07/09/2022 8:49 AM CDT Cervical radicular pain Neck pain S/P cervical disc replacement Left arm pain documented in this encounter Results * (ABNORMAL) Complete Blood Count-W/Diff (07/09/2022 8:49 AM CDT) [facility] WBC 7.4 3.5 - 10.5 x10(9)/L 07/09/2022 8:57 AM [facility] RBC 5.16(H) 3.90 - 5.03 x10(12)/L 07/09/2022 8:57 AM [facility] Hemoglobin 15.5 12.0 - 15.5 g/dL 07/09/2022 8:57 AM [facility] HCT 47.7(H) 34.9 - 44.5 % 07/09/2022 8:57 AM [facility] MCV 92.4 80.0 - 100.0 fL 07/09/2022 8:57 AM [facility] MCH 30.0 27.6 - 33.3 pg 07/09/2022 8:57 AM [facility] MCHC 32.5 31.5 - 35.2 g/dL 07/09/2022 8:57 AM [facility] RDW 14.1 11.9 - 15.5 % 07/09/2022 8:57 AM [facility] Platelets 258 150 - 450 x10(9)/L 07/09/2022 8:57 AM [facility] Automated NRBC 0 <=0 /100 WBC 07/09/2022 8:57 AM [facility] Neutrophil Absolute 4.8 1.7 - 7.0 10(9)/L 07/09/2022 8:57 AM [facility] Lymphocyte Absolute 1.6 1.0 - 4.8 10(9)/L 07/09/2022 8:57 AM [facility] Monocyte Absolute 0.6 0.2 - 0.9 10(9)/L 07/09/2022 8:57 AM [facility] Eosinophil Absolute 0.3 0.0 - 0.5 10(9)/L 07/09/2022 8:57 AM [facility] Basophil Absolute 0.1 0.0 - 0.3 10(9)/L 07/09/2022 8:57 AM [facility] Immature Granulocyte % 0.7(H) 0.0 - 0.5 % 07/09/2022 8:57 AM [facility] Blood Venipuncture / Unknown 07/09/2022 8:49 AM CDT 07/09/2022 8:55 AM CDT Meghan Ponce APRN, CNP LAB_1 Performing Organization Address [facility]/ZIP Co de Phone Number [facility] [address] [place] [address], [facility] [phone] * C-Reactive Protein (07/09/2022 8:49 AM CDT) [facility] C-Reactive Protein <0.5 0.0 - 0.7 mg/dL 07/09/2022 9:30 AM [facility] Blood Venipuncture / Unknown 07/09/2022 8:49 AM CDT 07/09/2022 8:54 AM CDT Meghan Ponce APRN, [facility] LAB_1 Performing Organization Address [facility]/ZIP Co de Phone Number [facility] [address] [place] [address], [place] [phone] * ESR (07/09/2022 8:49 AM CDT) Pathologist [facility] Sedimentation Rate 2 0 - 20 mm/hr 07/09/2022 9:33 AM [facility] Blood Venipuncture / Unknown 07/09/2022 8:49 AM CDT 07/09/2022 8:55 AM CDT Meghan Ponce DESTINATION SIGN REPAIRER, CHAIR LAB_1 [facility] [address] [place] [address], [facility] [phone] * Basic Metabolic Panel (07/09/2022 8:49 AM CDT) [facility] Sodium 141 136 - 145 mmol/L 07/09/2022 9:30 AM [facility] Potassium 4.5 3.5 - 5.1 mmol/L 07/09/2022 9:30 AM [facility] Chloride 104 98 - 109 mmol/L 07/09/2022 9:30 AM [facility] CO2 27 20 - 29 mmol/L 07/09/2022 9:30 AM [facility] Anion Gap 10 7 - 16 mmol/L 07/09/2022 9:30 AM [facility] Calcium 9.8 8.4 - 10.4 mg/dL 07/09/2022 9:30 AM [facility] BUN 15 7 - 26 mg/dL 07/09/2022 9:30 AM [facility] Creatinine 1.00 0.55 - 1.02 mg/dL 07/09/2022 9:30 AM [facility] Glucose 91 70 - 100 mg/dL 07/09/2022 9:30 AM [facility] Comment:The given reference range is for the fasting state. Non-fasting reference range for glucose is 70 - 180 mg/dL. Hours Fasting 12 07/09/2022 9:30 AM [facility] Comment:coffee with milk GFR, Estimated >60 >60 mL/min/1.7 3m2 07/09/2022 9:30 AM [facility] Blood Venipuncture / Unknown 07/09/2022 8:49 AM CDT 07/09/2022 8:54 AM CDT Meghan Ponce APRN, [facility] LAB_1 Performing Organization Address City/[facility] de Phone Number [facility] [address] [place] [address], [facility] [phone] * Procalcitonin (07/09/2022 8:49 AM CDT) Procalcitonin <0.05 <=0.24 ng/mL 07/09/2022 3:32 PM CDT [facility] Blood Venipuncture / Unknown 07/09/2022 8:49 AM CDT 07/09/2022 8:54 AM CDT Narrative [facility] - 07/09/2022 3:32 PM CDT Differential [...] the patient's clinical situation. Meghan Ponce APRN, [facility] LAB_1 [facility] [address] [place] [address], [facility] documented in this encounter Visit Diagnoses Diagnosis Cervical radicular pain Neck pain Cervicalgia S/P cervical disc replacement Left arm pain Pain in limb documented in this encounter Care Teams Piano Tuner Relationship Specialty Start Date End Date Needs Pcp, [place] [address] PCP - General 08/12/14 documented as of this encounter
--- OUTSIDE RECORDS SUMMARY | 2023-05-08 09:44 | XMS_ITS | Encounter Summary ---
Author Name Unknown Organization [facility] Address [address] [address] Care Team Providers Care Patient Monitor Name Role Phone Needs Pcp, Assignment Primary Care Provider [phone] Encounter Details Date Type Department Care Team Description 09/07/2013 Consent for Procedure/Treatment [facility] INFORMED CONSENT RECORD Social History Tobacco Use Types Packs/Day Years Used Date Smoking Tobacco: Never Assessed Sex and Gender Information Value Date Recorded Sex Assigned at Not on file Gender Identity Not on file Sexual Orientation Not on file documented as of this encounter Plan of Treatment Upcoming Encounters Date Type Department Care Team Description 05/23/2023 9:00 AM MIX HOUSE OPERATOR Appointment [facility] [address] [place] [address] documented as of this encounter Visit Diagnoses Not on filedocumented in this encounter Additional Health Concerns Infection Onset Date Last Indicated Resolved Time R/O COVID19 12/22/2019 12/22/2019 12/26/2019 2:43 PM CDT R/O COVID19 01/26/2020 01/26/2020 01/28/2020 3:24 PM CDT documented as of this encounter Care Teams Patient Monitor Relationship Specialty Start Date End Date Needs Pcp, Assignment [place], [place] [address] PCP - General 08/12/14 documented as of this encounter
--- OUTSIDE RECORDS SUMMARY | 2023-05-08 09:44 | XMS_ITS | Encounter Summary ---
Author Name Unknown Organization [facility] Address [address] [address] Care Team Providers Care Superintendent Meters Name Role Phone Needs Pcp, Assignment Primary Care Provider [phone] Reason for Visit * Reason Comments QUESTIONS, GENERAL Severe Pain Encounter Details Date Type Department Care Team Description 07/03/2022 Telephone [facility] [address] [place] [address] Ulises Medina MD [address] [place] [id number] QUESTIONS, GENERAL (Severe Pain) Social History Tobacco Use Types Packs/Day Years [...] as of this encounter Nursing Notes * Sasha Brasher RN - 07/03/2022 9:30 AM CDT Spoke to patient, with two spine providers out the rest of the week, no sooner appointment available. Her 07/09/2022 scheduled visit is the soonest available at this time. * Eli Zaman - 07/03/2022 8:49 AM CDT Has the patient recently had surgery or an injury? No How may we help you today? Patient is experiencing radiating pain down spine to arm and it got worse overnight. She states she is experiencing level 10 pain and medication is not helping. She wants to see if Dr. Medina or other spine provider can see her sooner than next week. Patient did have artificial disc procedure in [address] Medina at [facility], so she wasa patient of his. Please call her to discuss options. Describe your symptoms/concerns: NA When did the issue start: NA Have you been seen for this recently?: Yesterday in [facility] with Dr. Yancey [[employer]: If yes, please include date and provider.] Is it okay to leave detailed message on your voicemail? Yes [[employer]: If this call is after 3 p.m., communicate to patient: If we are not able to get back to you by the end of the day and your symptoms worsen please contact the Careline] documented in this encounter Plan of Treatment Upcoming Encounters Date Type Department Care Team Description 05/23/2023 9:00 AM STEAM HOIST OPERATOR Appointment [facility] [id number] [place], [place] [address] documented as of this encounter Visit Diagnoses Not on filedocumented in this encounter Care Teams Superintendent Meters Relationship Specialty Start Date End Date Needs Pcp, [place], [place] [phone] PCP - General 08/12/14 documented as of this encounter
--- OUTSIDE RECORDS SUMMARY | 2023-05-08 09:44 | XMS_ITS | Continuity of Care Document ---
Author Name [facility] Organization [facility] Care Team Providers Care Professor Of Radiology Name Role Phone [facility] Unavailable Unavailable Problems Combined list of problems from Department of Defense and Veterans Affairs facilities. It does not include entries that were removed or entered in error. 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 It does not include entries that were removed or entered in error. Substance Category Reaction Severity Reaction type Status Date Reported Comments Source AMBIEN (ZOLPIDEM TARTRATE) Drug allergy (disorder) Unknown active 9 [facility] [address] zolpidem Propensity to adverse reactions to substance Unknown Active 9 [facility] Immunizations Combined list of available immunizations from the Department of Defense and Veterans Affairs facilities. 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 Status Comments Source typhoid Vi capsular polysaccharid e vac 2021 [id number] sanofi pasteur complet ed typhoid Vi capsular polysacch aride vac 04/21/21 Given Ambulat ory Pharmac y influenza, seasonal, injectable 2020 [id number] 141 complet ed influenza , seasonal, injectabl e 01/22/21 Given Ambulat ory Pharmac y COVID Vaccine Moderna 2020 [id number] complet ed COVID Vaccine Moderna 06/01/20 Given Ambulat ory Pharmac y COVID Vaccine Moderna 2020 [id number] 207 complet ed COVID Vaccine Moderna 05/07/20 Given Ambulat ory Pharmac y meningococcal A,C,Y,W-135 (MCV4P) 2019 [id number] 114 sanofi pasteur complet ed meningoco ccal A,C,Y,W-1 35 (MCV4P) 03/26/20 Given Ambulat ory Pharmac y tetanus-dipht h toxoids (Td) adult/adol 2019 [id number] 09 sanofi pasteur complet ed tetanus-d iphth toxoids (Td) adult/ado l 03/26/20 Given Ambulat ory Pharmac y influenza, seasonal, injectable 2019 [id number] Seqirus complet ed influenza , seasonal, injectabl e 12/27/19 Given Ambulat ory Pharmac y typhoid Vi capsular polysaccharid e vac 2018 [id number] 101 sanofi pasteur complet ed typhoid Vi capsular polysacch aride vac 03/27/19 Given Ambulat ory Pharmac y typhoid Vi capsular polysaccharid e vaccine 10 2018 [id number] 101 Sanofi Pasteur ([facility]) complet ed typhoid Vi capsular polysacch aride vaccine DoD influenza, injectable, quadrivalent 2018 [id number] 158 sanofi pasteur complet ed influenza , injectabl e, quadrival ent 01/01/19 Given Ambulat ory Pharmac y influenza, injectable, quadrivalent, contains preservative 1 2018 [id number] 158 Sanofi Pasteur ([facility]) complet ed influenza , injectabl e, quadrival ent, contains preservat sidra DoD influenza, injectable, quadrivalent 2017 [id number] 158 sanofi pasteur complet ed influenza , injectabl e, quadrival ent 12/20/17 Given Ambulat ory Pharmac y influenza, injectable, quadrivalent, contains preservative 1 2017 [id number] 158 Sanofi Pasteur ([facility]) complet ed influenza , injectabl e, quadrival ent, contains preservat sidra DoD influenza, injectable, quadrivalent 2016 [id number] 158 GlaxoSmithKli sd complet ed influenza , injectabl e, quadrival ent 03/23/17 Given Ambulat ory Pharmac y typhoid Vi capsular polysaccharid e vac 2016 [id number] 101 sanofi pasteur complet ed typhoid Vi capsular polysacch aride vac 03/23/17 Given Ambulat ory Pharmac y typhoid Vi capsular polysaccharid e vaccine 9 2016 [id number] 101 Sanofi Pasteur (PMC) complet ed typhoid Vi capsular polysacch aride vaccine DoD influenza, injectable, quadrivalent, contains preservative 19 2016 [id number] 158 [facility] (SKB) complet ed influenza , injectabl e, quadrival ent, contains preservat sidra DoD anthrax vaccine 2016 [id number] 24 Emergent [employer] complet ed anthrax vaccine 09/01/16 Given Ambulat ory Pharmac y anthrax vaccine 6 2016 [id number] 24 [employer] [place] (MIP) complet ed anthrax vaccine DoD influenza, injectable, quadrivalent- pf 2015 [id number] 150 GlaxoSmithKli ne complet ed influenza , injectabl e, quadrival ent-pf 01/21/16 Given Ambulat ory Pharmac y Influenza, injectable, quadrivalent, preservative free 1 2015 [id number] 150 [facility] (SKB) complet ed Influenza , injectabl e, quadrival ent, preservat sidra free DoD meningococcal A,C,Y,W-135 (MCV4P) 2014 [id number] 114 sanofi pasteur complet ed meningoco ccal A,C,Y,W-1 35 (MCV4P) 03/25/15 Given Ambulat ory Pharmac y meningococcal polysaccharid e (groups A, C, Y and W-135) diphtheria toxoid conjugate vaccine (MCV4P) 3 2014 [id number] 114 Sanofi Pasteur (PMC) complet ed meningoco ccal polysacch aride (groups A, C, Y and W-135) diphtheri a toxoid conjugate vaccine (MCV4P) DoD influenza, seasonal, injectable-pf 2014 [id number] 140 CSL Behring complet ed influenza , seasonal, injectabl e-pf 01/01/15 Given Ambulat ory Pharmac y typhoid Vi capsular polysaccharid e vac 2014 [id number] 101 sanofi pasteur complet ed typhoid Vi capsular polysacch aride vac 01/01/15 Given Ambulat ory Pharmac y typhoid Vi capsular polysaccharid e vaccine 8 2014 [id number] 101 Sanofi Pasteur (PMC) complet ed typhoid Vi capsular polysacch aride vaccine DoD Influenza, seasonal, injectable, preservative free 17 2014 [id number] 140 [facility] [employer]. (CSL) complet ed Influenza , seasonal, injectabl e, preservat sidra free DoD influenza, seasonal, injectable-pf 2013 [id number] 140 Unknown complet ed influenza , seasonal, injectabl e-pf 01/31/14 Given Ambulat ory Pharmac y Influenza, seasonal, injectable, preservative free 1 2013 140 Unknown (UNK) comple t ed Influenza , seasonal, injectabl e, preservat sidra free DoD anthrax vaccine 2013 [id number] 24 [employer] complet ed anthrax vaccine 01/01/14 Given Ambulat ory Pharmac y anthrax vaccine 5 2013 [id number] 24 [employer] [place] (MIP) complet ed anthrax vaccine DoD anthrax vaccine 2013 [id number] 24 [employer] complet ed anthrax vaccine 06/26/13 Given Ambulat ory Pharmac y anthrax vaccine 4 2013 [id number] 24 [employer] [place] (MIP) complet ed anthrax vaccine DoD measles/mumps /rubella virus vaccine 2013 [id number] [employer] Company Inc complet ed measles/m umps/rube lla virus vaccine 05/08/13 Given Ambulat ory Pharmac y measles, mumps and rubella virus vaccine 2 2013 [id number] 03 Merck (MSD) complet ed measles, mumps and rubella virus vaccine DoD influenza, seasonal, injectable 2012 [id number] 141 complet ed influenza , seasonal, injectabl e 01/15/13 Given Ambulat ory Pharmac y Influenza, seasonal, injectable 1 2012 141 Transcribed (TRS) complet ed Influenza , seasonal, injectabl e DoD yellow fever vaccine 2012 [id number] 37 sanofi pasteur complet ed yellow fever vaccine 12/24/12 Given Ambulat ory Pharmac y typhoid Vi capsular polysaccharid e vac 2012 [id number] 101 sanofi pasteur complet ed typhoid Vi capsular polysacch aride vac 12/24/12 Given Ambulat ory Pharmac y yellow fever vaccine 1 2012 [id number] 37 Sanofi Pasteur (PMC) complet ed yellow fever vaccine DoD typhoid Vi capsular polysaccharid e vaccine 1 2012 [id number] 101 Sanofi Pasteur (PMC) complet ed typhoid Vi capsular polysacch aride vaccine DoD influenza, seasonal, injectable-pf 2011 [id number] 140 CSL Behring complet ed influenza , seasonal, injectabl e-pf 01/26/12 Given Ambulat ory Pharmac y Influenza, seasonal, injectable, preservative free 1 2011 [id number] 140 CS [employer]. (CS) complet ed Influenza , seasonal, injectabl e, preservat sidra free DoD influenza, seasonal, injectable 2010 [id number] 141 sanofi pasteur complet ed influenza , seasonal, injectabl e 03/23/11 Given Ambulat ory Pharmac y Influenza, seasonal, injectable 1 2010 [id number] 141 Sanofi Pasteur (PMC) complet ed Influenza , seasonal, injectabl e DoD typhoid Vi capsular polysaccharid e vac 2009 F3293-4 101 sanofi pasteur complet ed typhoid Vi capsular polysacch aride vac 03/23/10 Given Ambulat ory Pharmac y typhoid Vi capsular polysaccharid e vaccine 1 2009 [id number] 101 Sanofi Pasteur (PMC) complet ed typhoid Vi capsular polysacch aride vaccine DoD meningococcal A,C,Y,W-135 (MCV4P) 2009 [id number] 114 sanofi pasteur complet ed meningoco ccal A,C,Y,W-1 35 (MCV4P) 03/03/10 Given Ambulat ory Pharmac y tuberculin purified protein derivative 2009 [id number] 96 sanofi pasteur complet ed tuberculi n purified protein derivativ e 03/03/10 Given Ambulat ory Pharmac y tetanus, diphtheria, acellular pertu is 2009 [id number] 115 sanofi pasteur complet ed tetanus, diphtheri a, acellular pertussis 03/03/10 Given Ambulat ory Pharmac y influenza virus vaccine,split 2009 [id number] 15 sanofi pasteur complet ed influenza virus vaccine,s plit 03/03/10 Given Ambulat ory Pharmac y influenza virus vaccine, split virus (incl. purified surface antigen)-reti red CODE 1 2009 [id number] 15 Sanofi Pasteur ([facility]) complet ed influenza virus vaccine, split virus (incl. purified surface antigen)- retired CODE DoD meningococcal polysaccharid e (groups A, C, Y and W-135) diphtheria toxoid conjugate vaccine (MCV4P) 1 2009 [id number] 114 Sanofi Pasteur ([facility]) complet ed meningoco ccal polysacch aride (groups A, C, Y and W-135) diphtheri a toxoid conjugate vaccine (MCV4P) DoD tetanus toxoid, reduced diphtheria toxoid, and acellular pertu is vaccine, adsorbed 1 2009 [id number] 115 Sanofi Pasteur ([facility]) complet ed tetanus toxoid, reduced diphtheri a toxoid, and acellular pertussis vaccine, adsorbed DoD anthrax vaccine 2009 [id number] 24 Emergent [employer] complet ed anthrax vaccine 07/29/09 Given Ambulat ory Pharmac y anthrax vaccine 3 2009 [id number] 24 [employer] [place] ([facility]) complet ed anthrax vaccine DoD influenza virus vaccine, live 2008 [id number] 111 ZYOMYX Inc comple t ed influenza virus vaccine, live 03/04/09 Given Ambulat ory Pharmac y influenza virus vaccine, live, attenuated, for intranasal use 1 2008 [id number] 111 Ret[employer]Sense [employer], Inc. (MED) complet ed influenza virus vaccine, live, attenuate d, for intranasa l use DoD Novel influenza-H1N 1-09, injectable 2008 [id number] 127 Novartis Pharmaceutica ls complet ed Novel influenza -Z0U9-95, injectabl e 01/21/09 Given Ambulat ory Pharmac y Novel influenza-H1N 1-09, injectable 1 2008 [id number] [place] 127 Novartis Pharmaceutica l [place]. (NOV) complet ed Novel influenza -T2R1-20, injectabl e DoD hepatitis B adult vaccine 2008 [id number] [id number] 43 GlaxoSmithKli ne complet ed hepatitis B adult vaccine 10/02/08 Given Ambulat ory Pharmac y tetanus, diphtheria, acellular pertu is 2008 [id number] 115 sanofi pasteur complet ed tetanus, diphtheri a, acellular pertussis 10/02/08 Given Ambulat ory Pharmac y hepatitis B vaccine, adult dosage 3 2008 [id number] 6CA 43 SmithKline (SKB) complet ed hepatitis B vaccine, adult dosage DoD tetanus toxoid, reduced diphtheria toxoid, and acellular pertu is vaccine, adsorbed 1 2008 [id number] 115 Sanofi Pasteur ([facility]) complet ed tetanus toxoid, reduced diphtheri a toxoid, and acellular pertussis vaccine, adsorbed DoD anthrax vaccine 2007 [id number] 24 [employer] complet ed anthrax vaccine 03/03/08 Given Ambulat ory Pharmac y anthrax vaccine 2 2007 [id number] 24 [employer] [place] ([facility]) complet ed anthrax vaccine DoD hepatitis B adult vaccine 2007 [id number] 0AA 43 GlaxoSmithKli ne complet ed hepatitis B adult vaccine 02/09/08 Given Ambulat ory Pharmac y hepatitis B vaccine, adult dosage 2 2007 [id number] 0AA 43 SmithKline (SKB) complet ed hepatitis B vaccine, adult dosage DoD typhoid vaccine, parenteral 2007 [id number] 41 sanofi pasteur complet ed typhoid vaccine, parentera l 02/06/08 Given Ambulat ory Pharmac y anthrax vaccine 2007 [id number] 24 [employer] complet ed anthrax vaccine 02/06/08 Given Ambulat ory Pharmac y anthrax vaccine 1 2007 [id number] 24 [employer] [place] ([facility]) complet ed anthrax vaccine DoD typhoid vaccine, parenteral, other than acetone-kille d, dried 0 2007 [id number] 41 Sanofi Pasteur ([facility]) complet ed typhoid vaccine, parentera l, other than acetone-k illed, dried DoD influenza virus vaccine, live 2007 [id number] 111 ZYOMYX Inc comple t ed influenza virus vaccine, live 01/01/08 Given Ambulat ory Pharmac y hepatitis B adult vaccine 2007 [id number] [id number] 43 GlaxoSmithKli ne complet ed hepatitis B adult vaccine 01/01/08 Given Ambulat ory Pharmac y hepatitis B vaccine, adult dosage 1 2007 [id number] [id number] 43 SmithKline (SKB) complet ed hepatitis B vaccine, adult dosage DoD influenza virus vaccine, live, attenuated, for intranasal use 1 2007 [id number] 111 [employer], [employer]. (MED) complet ed influenza virus vaccine, live, attenuate d, for intranasa l use DoD influenza virus vaccine, live 2006 [id number] 111 ZYOMYX Inc comple t ed influenza virus vaccine, live 03/28/07 Given Ambulat ory Pharmac y influenza virus vaccine, live, attenuated, for intranasal use 1 2006 [id number] 111 [employer], [employer]. (MED) complet ed influenza virus vaccine, live, attenuate d, for intranasa l use DoD influenza virus vaccine,split 2005 [id number] 15 sanofi pasteur complet ed influenza virus vaccine,s plit 03/23/06 Given Ambulat ory Pharmac y influenza virus vaccine, split virus (incl. purified surface antigen)-reti red CODE 1 2005 [id number] 15 Sanofi Pasteur (PMC) complet ed influenza virus vaccine, split virus (incl. purified surface antigen)- retired CODE DoD typhoid vaccine, parenteral 2005 [id number] 41 sanofi pasteur complet ed typhoid vaccine, parentera l 01/26/06 Given Ambulat ory Pharmac y varicella virus vaccine 0 2005 21 () Not Given varicella virus vaccine DoD typhoid vaccine, parenteral, other than acetone-kille d, dried 1 2005 [id number] 41 Sanofi Pasteur (PMC) complet ed typhoid vaccine, parentera l, other than acetone-k illed, dried DoD influenza virus vaccine,split 2004 [id number] 15 sanofi pasteur complet ed influenza virus vaccine,s plit 03/02/05 Given Ambulat ory Pharmac y influenza virus vaccine, split virus (incl. purified surface antigen)-reti red CODE 1 2004 [id number] 15 Sanofi Pasteur (PMC) complet ed influenza virus vaccine, split virus (incl. purified surface antigen)- retired CODE DoD typhoid vaccine, parenteral 2003 [id number] 41 sanofi pasteur complet ed typhoid vaccine, parentera l 01/25/04 Given Ambulat ory Pharmac y typhoid vaccine, parenteral, other than acetone-kille d, dried 0 2003 [id number] 41 Sanofi Pasteur (PMC) complet ed typhoid vaccine, parentera l, other than acetone-k illed, dried DoD influenza virus vaccine, whole virus 2002 [id number] 16 sanofi pasteur complet ed influenza virus vaccine, whole virus 02/16/03 Given Ambulat ory Pharmac y influenza virus vaccine, whole virus 0 2002 [id number] 16 Sanofi Pasteur (PMC) complet ed influenza virus vaccine, whole virus DoD tuberculin purified protein derivative 2001 [id number] 96 sanofi pasteur complet ed tuberculi n purified protein derivativ e 03/27/02 Given Ambulat ory Pharmac y influenza virus vaccine, whole virus 2001 [id number] 16 sanofi pasteur complet ed influenza virus vaccine, whole virus 03/27/02 Given Ambulat ory Pharmac y influenza virus vaccine, whole virus 0 2001 [id number] 16 Sanofi Pasteur (PMC) complet ed influenza virus vaccine, whole virus DoD typhoid Vi capsular polysaccharid e vac 2001 [id number] 101 sanofi pasteur complet ed typhoid Vi capsular polysacch aride vac 05/02/01 Given Ambulat ory Pharmac y typhoid Vi capsular polysaccharid e vaccine 0 2001 [id number] 101 Sanofi Pasteur (PMC) complet ed typhoid Vi capsular polysacch aride vaccine DoD influenza virus vaccine, whole virus 2000 [id number] 16 sanofi pasteur complet ed influenza virus vaccine, whole virus 02/28/01 Given Ambulat ory Pharmac y influenza virus vaccine, whole virus 0 2000 [id number] 16 Sanofi Pasteur (PMC) complet ed influenza virus vaccine, whole virus DoD influenza virus vaccine, whole virus 1999 [id number] 16 Unknown complet ed influenza virus vaccine, whole virus 03/23/00 Given Ambulat ory Pharmac y influenza virus vaccine, whole virus 0 1999 [id number] 16 Other (OTH) complet ed influenza virus vaccine, whole virus DoD yellow fever vaccine 1999 [id number] 37 sanofi pasteur complet ed yellow fever vaccine 04/28/99 Given Ambulat ory Pharmac y typhoid vaccine, parenteral 1999 [id number] 41 sanofi pasteur complet ed typhoid vaccine, parentera l 04/28/99 Given Ambulat ory Pharmac y yellow fever vaccine 0 1999 [id number] 37 Sanofi Pasteur ([facility]) complet ed yellow fever vaccine DoD typhoid vaccine, parenteral, other than acetone-kille d, dried 0 1999 [id number] 41 Sanofi Pasteur ([facility]) complet ed typhoid vaccine, parentera l, other than acetone-k illed, dried DoD hepatitis A adult vaccine 1998 [id number] 52 Merck & Company Inc complet ed hepatitis A adult vaccine 03/04/99 Given Ambulat ory Pharmac y hepatitis A vaccine, adult dosage 2 1998 [id number] 52 Merck (MSD) complet ed hepatitis A vaccine, adult dosage DoD influenza virus vaccine, whole virus 1998 [id number] 16 [facility] complet ed influenza virus vaccine, whole virus 01/28/99 Given Ambulat ory Pharmac y influenza virus vaccine, whole virus 0 1998 [id number] 16 [facility] ([facility]) complet ed influenza virus vaccine, whole virus DoD poliovirus vaccine, live, oral 1998 [id number] 02 [facility] complet ed polioviru s vaccine, live, oral 09/01/98 Given Ambulat ory Pharmac y hepatitis A adult vaccine 1998 [id number] 52 Merck & Company Inc complet ed hepatitis A adult vaccine 09/01/98 Given Ambulat ory Pharmac y trivalent poliovirus vaccine, live, oral 0 1998 [id number] 02 [facility] ([facility]) comple t ed trivalent polioviru s vaccine, live, oral DoD hepatitis A vaccine, adult dosage 1 1998 [id number] 52 Merck (MSD) complet ed hepatitis A vaccine, adult dosage DoD tuberculin purified protein derivative 1998 [id number] 96 [facility] complet ed tuberculi n purified protein derivativ e 08/25/98 Given Ambulat ory Pharmac y meningococcal polysaccharid e (MPSV4) [id number] 32 [facility] complet ed meningoco ccal polysacch aride (MPSV4) 08/25/98 Given Ambulat ory Pharmac y influenza virus vaccine, whole virus [id number] 16 [employer] complet ed influenza virus vaccine, whole virus 08/25/98 Given Ambulat ory Pharmac y tetanus-dipht h toxoids (Td) adult/adol [id number] 09 [facility] tetanus-d iphth toxoids (Td) adult/ado l 08/25/98 Given Ambulat ory Pharmac y tetanus and diphtheria toxoids, adsorbed, preservative free, for adult use (2 Lf of tetanus toxoid and 2 Lf of diphtheria toxoid) 0 [id number] 09 [facility] (CON) complet ed tetanus and diphtheri a toxoids, adsorbed, preservat sidra free, for adult use (2 Lf of tetanus toxoid and 2 Lf of diphtheri a toxoid) DoD influenza virus vaccine, whole virus 0 19981712 [id number] 16 [employer] (WAL) complet ed influenza virus vaccine, whole virus DoD meningococcal polysaccharid e vaccine (MPSV4) 0 19989924 [id number] 32 [place] (CON) complet ed meningoco ccal polysacch aride vaccine (MPSV4) DoD measles/mumps /rubella virus vaccine 1998 03 Unknown complet ed measles/m umps/rube lla virus vaccine 08/12/98 Given Ambulat ory Pharmac y measles, mumps and rubella virus vaccine 0 1998 03 Unknown (UNK) comple t ed measles, mumps and rubella virus vaccine DoD poliovirus vaccine, live, oral 1994 [id number] 02 [employer] [facility] complet ed polioviru s vaccine, live, oral 09/01/94 Given Ambulat ory Pharmac y trivalent poliovirus vaccine, live, oral 0 1994 [id number] 02 [facility] ([facility]) comple t ed trivalent polioviru s vaccine, live, oral [facility] Results Combined list of recent chemistry, hematology and other laboratory results from Department of Defense and Veterans Affairs, ranging from 15 months to all on record, depending upon the facility. Order Name Results Value Reference Range Date Interpretation Specimen Comments Source Infectio us Disease HIV-1/O/2 Non-Reac tive 1 ( 3 12:34 PM) 03/26 N Interpretiv e Data: INTERPRETAT ION: This method is a screening procedure for the detection of HIV p24 Antigen and Antibodies to HIV-1, including Group O, and/or HIV-2. NON-REACTIV E: HIV-1 antigen and HIV-1 / HIV-2 antibodies were not detected. No laboratory evidence of HIV infection. A negative test result does not exclude the possibility of exposure to or infection with HIV. HIV antibodies and/or p24 antigen may be undetectabl e in some stages of the infection and in some clinical conditions. If acute HIV infection is suspected, consider submitting another specimen to a reference laboratory for HIV-1 RNA. SCREEN REACTIVE - CONFIRMATIO N TO FOLLOW: Possible presence of HIV-1antibo dies, HIV-2 antibodies and/or HIV-1 p24 antigen. Specimen will reflex to the confirmatio n testing that fulfills the Center for Disease Control and Prevention' s HIV diagnostic algorithm. Refer to [facility] Lab Guide for additional information : [email or web address] x Testing performed by [facility] Sendouts Repository Sample Received ( 3 12:34 PM) 03/26 N [facility] Vital Signs Combined list of inpatient and outpatient Vital Signs from Department of Defense and Veterans Affairs, ranging from 12 months to all on record, depending upon the facility. Vital Sign Value Date Comments Source No data available for this section Ambulatory Pharmacy Encounters Combined list of: 1) Encounters from Department of Veterans Affairs facilities going back up to thelast 18 months. 2) Encounters from the Department of Defense facilities going back up to 280 months. Location Location Details Encounter Type Encounter Number Reason For Visit Attending Provider ADM Date DC Date Status Disposition Source Theater Facility OUTPATIENT [id number] 02/01 Released w/o Limitations [facility] OUTPATIENT [id number] Theater Provider 12/13 Released w/o Limitations [facility] OUTPATIENT [id number] Theater Provider 12/16 Released w/o Limitations [facility] OUTPATIENT [id number] Theater Provider 01/21 Released w/o Limitations [facility] OUTPATIENT [id number] Theater Provider 02/03 Released w/o Limitations Theater Facilit y [place] [address](AFN G [address]) OUTPATIENT [id number] SAGAR DOMINGUEZ 03/23 Released [facility] Limitations [facility] [place] [address](A FNG [address]) [facility] [place] [facility] [address](AFN G [address]) OUTPATIENT [id number] Notes Entered by: Graciela LOVE 03 Oct 2017 [id number] ------- ------- ------- ------- -- RACHEL BAJWA 10/03 [facility] [place] [place] [address](A FNG [address]) [id number] MDG Outpatient [id number] KARMEN ALINA [birth year] Discharge Disposition: Home or Self Care [id number] [id number] MDG Procedures Combined list of: 1) Procedures from Department of Veterans Affairs facilities going back up to [facility] 18 months, not all [place] non-surgical procedures are included; 2) All procedures from the Department of Defense facilities. Procedure Procedure Type Code Date Perfomer Comments Sourc e No data available for this section Ambulato ry Pharmacy FITTING OF SPECTACLES, EXCEPT FOR APHAKIA; MONOFOCAL 08/13/2002 DoD Social History Combined list of available smoking, tobacco, and other social history from Department of Defense and Veterans Affairs facilities. Social History Type Response Date Comment Sourc e This section is an empty social history section. DoD Assessment and Plan Combined list of future care activities from Department of Defense and Veterans Affairs facilities (e.g., assessment and plan notes, appointments, orders, and referrals). Additional future care activities may be listed in the Plan of Care section. Result Assessment and Plan Date Source Assessment and Plan No data available for this section 05/08/2023 Ambulatory Pharmacy Functional Status Combined list of recent functional and cognitive assessments recorded at Department of Defense and Veterans Affairs (VA).VA Functional [place] Measurement (FIM) Scale: 1 = Total Assistance (Subject = 0% +), 2 = Maximal Assistance (Subject = 25% +), 3 = Moderate Assistance (Subject = 50% +), 4 = Minimal Assistance (Subject = 75% +), 5 = Supervision, 6 = Modified [place] (Device), 7 = Complete [place] (Timely, Safely). Assessment Date/Time Source Assessment Type Assessment Skill Assessment Score Assessment Details No data available for this section
--- OUTSIDE RECORDS SUMMARY | 2023-05-08 09:44 | XMS_ITS | Encounter Summary ---
Author Name Unknown Organization [facility] Address [address], [place] [address] Care Team Providers Care Funeral Sales Manager Name Role Phone Needs Pcp, Assignment Primary Care Provider Reason for Visit * Reason Comments PAIN, NOS Neck Pain Encounter Details Date Type Department Care Team Description 07/08/2022 Telephone [facility] [address] [place] [address] Meghan Ponce, DIRECTOR OF SERVICES, LINE O SCRIBE OPERATOR [address] [facility] [place], [place] [address] PAIN, NOS (Neck Pain) Social History Tobacco Use Types Packs/Day [...] as of this encounter Nursing Notes * Amisha Washington RN - 07/08/2022 9:12 AM CDT Called patient back. She has not been seen by Meghan yet. Advised that if red flag symptoms or uncontrolled pain she should be evaluated in the ED. Otherwise would be evaluated in clinic tomorrow. * Michaela Henry - 07/08/2022 8:06 AM CDT Has the patient recently had surgery or an injury? No Ortho Pain Questionnaire Any recent falls/injuries/changes since you were last seen? no Pain Rating (0-10) 10 Location of Pain neck Description stabbing Onset of Pain July 03, 2022 What have you tried for the pain? NA Using assistive device? None Comments Patient is scheduled for an appointment on 07/09/22, but does not think she can wait to be seen. Would like to speak with someone to determine if she can be seen today or if she needs to go to the ER. documented in this encounter Plan of Treatment Upcoming Encounters Date Type Department Care Team Description 05/23/2023 9:00 AM ESTHETICIAN FACIALIST Appointment [facility] [address] [place], [place] [id number] documented as of this encounter Visit Diagnoses Not on filedocumented in this encounter Care Teams Funeral Sales Manager Relationship Specialty Start Date End Date Needs Pcp, [place] [address] PCP - General 08/12/14 documented as of this encounter
--- OUTSIDE RECORDS SUMMARY | 2023-05-08 09:44 | XMS_ITS | Encounter Summary ---
Author Name Unknown Organization [facility] Address [address] [place] [address] Care Team Providers Care Physician General Internal Medicine Name Role Phone Needs Pcp, Assignment Primary Care Provider Reason for Visit * Procedure/Equipment (Routine) - Incomplete Specialty Diagnoses / Procedures Referred By Hiram t Referred To Contact Diagnoses Cervical radicular pain Neck pain S/P cervical disc replacement Left arm pain Procedures CT Cervical Spine WO IV Cont Meghan Ponce, POULTRY FEED SUPERVISOR, POST MANAGER [address] [address] Referral ID Status Reason Start Date Expiration Date V isits Requested Visits Authorized [id number] Incomplete 07/09/2022 10/08/2023 1 1 Encounter Details Date Type Department Care Team Description 07/09/2022 9:40 AM CDT Ancillary Procedure [facility] [address] [address] [address] [place] [address] Meghan Ponce, POULTRY FEED SUPERVISOR, POST MANAGER [address] [place] [id number] Cervical radicular pain; Neck pain; S/P cervical [...] Department Care Team Description 05/23/2023 9:00 AM WEED COOKING OPERATOR Appointment [facility] [address] [place] [address] documented as of this encounter Procedures Procedure Name Priority Date/Time Associated Diagnosis Comments CT CERVICAL SPINE WO IV CONT Routine 07/09/2022 8:45 AM CDT Cervical radicular pain Neck pain S/P cervical disc replacement Left arm pain documented in this encounter Results * CT Cervical Spine WO IV Cont [...] narrowing at C5-6 and C6-7. Meghan Ponce POULTRY FEED SUPERVISOR, POST MANAGER RAD CT documented in this encounter Visit Diagnoses Diagnosis Cervical radicular pain Neck pain Cervicalgia S/P cervical disc replacement Left arm pain Pain in limb documented in this encounter Care Teams Physician General Internal Medicine Relationship Specialty Start Date End Date Needs Pcp, [place] [address] PCP - General 08/12/14 documented as of this encounter
--- OUTSIDE RECORDS SUMMARY | 2023-05-08 09:44 | XMS_ITS | Encounter Summary ---
Author Name Unknown Organization [facility] Address [address] [address] Care Team Providers Care Termite Control Representative Name Role Phone Needs Pcp, Assignment Primary Care Provider Reason for Visit * Procedure/Equipment (Routine) - Incomplete Specialty Diagnoses / Procedures Referred By Contac t Referred To Contact Diagnoses Injury to cervical nerve root, initial encounter Procedures XR Cervical Spine 2 Views Dennis Yancey MD [address] [facility] [place] [address] Referral ID Status Reason Start Date Expiration Date V isits Requested Visits Authorized [id number] Incomplete 07/02/2022 10/01/2023 1 1 Encounter Details Date Type Department Care Team Description 07/02/2022 6:10 PM CDT Ancillary Procedure [facility] [address] Radiology [address] [place] [address] Dennis Yancey MD [address] [facility] [place] [address] Injury to cervical nerve root, initial encounter Social History Tobacco Use Types Packs/Day [...] Department Care Team Description 05/23/2023 9:00 AM OUTBOUND SALES ADVISOR Appointment [facility] [address] [place], [place] [address] documented as of this encounter Procedures Procedure Name Priority Date/Time Associated Diagnosis Comments XR CERVICAL SPINE 2 VIEWS Routine 07/02/2022 6:13 PM CDT Injury to cervical nerve root, initial encounter documented in this encounter Results * XR Cervical Spine 2 Views (07/02/2022 6:13 PM CDT) Anatomical Region Laterality Modality Spine, C-Spine, Neck Digital Rad iography 07/02/2022 6:03 PM CDT Impressions 07/02/2022 6:19 PM CDT COMPARISON: ??MRI 01/21/2011 FINDINGS: ??C6-7 anterior fusion hardware instrumentation. No fracture or subluxation of the cervical vertebral bodies is identified. Mild disc space narrowing at C5- 6. ??No prevertebral soft tissue swelling is seen. Narrative Procedure Note Ulises Jang MD - 07/02/2022 IMPRESSION COMPARISON: MRI 01/21/2011 FINDINGS: C6-7 anterior fusion hardware instrumentation. No fracture orsubluxation of the cervical vertebral bodies is identified. Mild discspace narrowing at C5-6. No prevertebral soft tissue swelling is seen. Dennis Yancey MD RAD GD documented in this encounter Visit Diagnoses Diagnosis Injury to cervical nerve root, initial encounter documented in this encounter Care Teams Termite Control Representative Relationship Specialty Start Date End Date Needs Pcp, [place] [address] PCP - General 08/12/14 documented as of this encounter
--- OUTSIDE RECORDS SUMMARY | 2023-05-08 09:44 | XMS_ITS | Encounter Summary ---
Author Name Unknown Organization [facility] Address [address] [place] [address] Care Team Providers Care Fermenter Champagne Name Role Phone Needs Pcp, Assignment Primary Care Provider Reason for Referral * Procedure/Equipment (Routine) - Authorized Specialty Diagnoses / Procedures Referred By Contac t Referred To Contact Diagnoses Left arm pain Cervical radicular pain Neck pain S/P cervical disc replacement Procedures [place] Spinal Injection For Pain Management Meghan Ponce APRN, SERVICE LINE COORDINATOR [address] [place] [address] Referral ID Status Reason Start Date Expiration Date V isits Requested Visits Authorized [id number] Authorized 07/09/2022 10/08/2023 1 1 Reason for Visit * Reason Comments Neck Pain Encounter Details Date Type Department Care Team Description 07/09/2022 Phone Visit [facility] [address] [place] [address] Meghan Ponce APRN, SERVICE LINE COORDINATOR [address] [facility] [place] [id number] Left arm pain (Primary Dx); Cervical radicular pain; Neck pain; S/P cervical disc replacement Social History Tobacco Use Types Packs/Day Years [...] as of this encounter Progress Notes * Meghan Ponce Fariha, CHARGING OPERATOR, SERVICE LINE COORDINATOR - 07/09/2022 12:49 PM CDT Images from the original note were not included. I contacted the pt with her CT scan results. She has no high grade stenosis or herniations that would correlate with cervical radicular pain on the left and severe pain to her entire LUE. She is tearful and in pain. I discussed a trial of a cervical epidural steroid injection for her pain. I explained that I am not clear that this is cervical related due to the severity of her pain and how diffuse it is. She is willing to try the injection. So far her labs have not returned with any indication of infection. She will follow up post injection. She is also has her EMG scheduled in July and was asked to keep this appointment. CT Cervical Spine WO IV Cont Order: [id number] Status: Final result Visible to patient: Yes (seen) Next appt: 08/08/2022 at 12:00 PM in Neurology (Cheryle Oliva MD) Dx: Neck pain; Left arm pain; Cervical ra... Details Reading Physician Reading Date Result Priority Kyle Ybarra MD [phone] 07/09/2022 Routine Narrative & Impression IMPRESSION INDICATION: Neck pain, acute, prior cervical surgery TECHNIQUE: Noncontrast CT scan of the cervical spine with axial acquisition and 2-D reformatting. COMPARISON: Cervical spine MRI 07/03/2022 FINDINGS: Previous disc arthroplasty at C6-7. Cervical vertebral heights and alignment are preserved. There is straightening of the normal cervical lordosis. C2-3: No significant canal or foraminal narrowing. C3-4: No significant canal or foraminal narrowing. C4-5: Small central disc osteophyte complex. Facet arthropathy. No significant canal or foraminal narrowing. C5-6: Disc osteophyte complex eccentric to the left. Facet arthropathy. Mild canal stenosis. Mild bilateral foraminal narrowing. C6-7: Postsurgical changes. Residual osteophytic ridging. Facet arthropathy. No significant canal stenosis. Mild left foraminal narrowing. C7-T1: Facet arthropathy. No significant canal or foraminal narrowing. IMPRESSION: 1. Previous C6-7 disc arthroplasty. 2. Mild spinal canal stenosis at C5-6. 3. Mild foraminal narrowing at C5-6 and C6-7. Specimen Collected: 07/09/22 08:33 Last Resulted: 07/09/22 11:40 Meghan Ponce SERVICE LINE COORDINATOR Clinic Schedule is as follows: [place] [facility]: Friday, Friday and [place] [facility]: Friday and Friday Please call [phone] with any questions. Meghan Ponce SERVICE LINE COORDINATOR [facility] Medication Requests: Please be aware that prescriptions are not filled on weekends or on weekdays after 3pm documented in this encounter Plan of Treatment Upcoming Encounters Date Type Department Care Team Description 05/23/2023 9:00 AM REGISTRATION COORDINATOR Appointment [facility] [address] [place] [address] Scheduled Orders Name Type Priority Associated Diagnoses Orde r Schedule FL Spinal Injection For Pain Management Imaging New Routine Left arm pain Cervical radicular pain Neck pain S/P cervical disc replacement Expected: 07/09/2022 (Approximate), Expires: 07/09/2023 documented as of this encounter Visit Diagnoses Diagnosis Left arm pain- Primary Pain in limb Cervical radicular pain Neck pain Cervicalgia S/P cervical disc replacement documented in this encounter Care Teams Fermenter Champagne Relationship Specialty Start Date End Date Needs Pcp, [place] [address] PCP - General 08/12/14 documented as of this encounter
--- OUTSIDE RECORDS SUMMARY | 2023-05-08 09:44 | XMS_ITS | Clinical Summary ---
Author Name Unknown Organization [facility] Address [place], [place] [address] Care Team Providers Care Dialysis Social Worker Name Role Phone Medardo Graf MD Primary Care Provider [phone] Allergies Active Allergy Reactions Criticality Noted Date Comments Zolpidem Tartrate Insomnia 06/11/2011 blacks out Medications Medication Sig Dispensed Refills Start Date End Date Status liothyronine (CYTOMEL) 25 mcg tablet Take 25 mcg by mouth once daily. 0 07/08/2022 Active spironolactone (ALDACTONE) 50 mg tablet Take 50 mg by mouth two times daily. 0 07/19/2022 Active ketoconazole 2% topical (NIZORAL) cream Apply topically to affected area(s). 0 02/21/2022 Active acetaminophen (TYLENOL EXTRA STRGTH) 500 mg tabletIndications :Postoperative pain after spinal surgery Take 2 Tablets (1,000 mg) by mouth every 6 hours. Max acetaminophen dose: 4000mg in 24 hrs. 0 10/08/2022 Active gabapentin (NEURONTIN) 300 mg capsuleIndication s:Postoperative pain after spinal surgery Take 1 Capsule (300 mg) by mouth three times daily. 60 Capsule 0 10/08/2022 Active methocarbamoL (ROBAXIN) 750 mg tabletIndications :Postoperative pain after spinal surgery Take 1 Tablet (750 mg) by mouth every 6 hours if needed for Muscle Spasm. 30 Tablet 0 10/08/2022 Active oxyCODONE (ROXICODONE) 5 mg immediate release tabletIndications :Postoperative pain after spinal surgery Take 1-2 Tablets (5-10 mg) by mouth every 4 hours if needed for Pain (First choice for severe pain.). 20 Tablet 0 10/08/2022 Active sennosides-docusa te (SENOKOT S) (8.6-50 mg) tabletIndications :Constipation due to opioid therapy Take 1-4 Tablets by mouth 2 times daily if needed for Constipation. 30 Tablet 0 10/08/2022 Active Active Problems Problem Noted Date Diagnosed Date Cervical radiculopathy at C6 10/08/2022 Encounters Date Type Department Care Team Description 03/20/2023 8:28 AM AUTO CLAIM REPRESENTATIVE - 03/20/2023 11:59 PM AUTO CLAIM REPRESENTATIVE Hospital Encounter [facility] [address] [place] [address] Ulises Medina MD Neck pain 03/20/2023 Travel from Last 3 Months Immunizations Name Administration Dates Next Due Influenza, IIV3 (Age >=3 years) 01/26/2011 Social History Tobacco Use Types Packs/Day Years Used Date Smoking Tobacco: Never Smokeless Tobacco: Never Alcohol Use Standard Drinks/Week Comments Yes 2 (1 standard drink = 0.6 oz pur e alcohol) 2-3 drinks per week Social Connections Answer Date Recorded Frequency of Communication with Friends and Fami ly Not on file 10/08/2022 Sex and Gender Information Value Date Recorded Sex Assigned at Not on file Gender Identity Not on file Sexual Orientation Not on file Obstetrics History Last Filed Vital Signs Vital Sign Reading Time Taken Comments Blood Pressure 127/82 10/14/2022 2:18 PM CDT Pulse 87 10/14/2022 2:18 PM CDT Temperature 36.4 ??C (97.5 ??F) 10/14/2022 10:58 AM C DT Respiratory Rate 18 10/14/2022 10:58 AM CDT Oxygen Saturation 97% 10/14/2022 2:18 PM CDT Inhaled Oxygen Concentration - - Weight 88.5 kg (195 lb) 10/14/2022 10:58 AM CDT Height 167.6 cm (5' 6) 10/14/2022 10:58 AM CDT Body Mass Index 31.47 10/14/2022 10:58 AM CDT Plan of Treatment Health Maintenance Due Date Last Done Comments COVID-19 vaccine series (#1) 1978 Tdap 1989 Depression screening for age 12+ 1990 HIV for age 15-65 1993 BMI (ht and wt on same day) for age 18+ 1996 Hepatitis C screening for ag e 18-79 1996 Tetanus booster 1998 Influenza for age 9-49 12/13/2022 01/26/2011 Colonoscopy through age 75 2023 Lipids for age 45-75 2023 Mammogram for age 45-75 2023 Pap test for age 21-65 10/24/2025 , 10/24/2022 Pneumococcal series for age 6-64 Aged Out No longer eligible b ased on patient's age to complete this topic Medical Devices Implanted Type Area Record Maker Device Identifier Shelf Expiration Date Model / Serial / Lot Disc Sc [id number] Cerv [id number] - [id number] Implanted:Qty: 1 on 06/17/2011 at [facility] [id number] / / [id number] Natrelle Silicone-Filled Breast Implant Smooth Round Midrange Profile - [id number] Implanted:Qty: 1 on 02/28/2014 by Kar Nava MD at [facility] Right: Breast 05/14/2018 15-304 NATRELLE SILICONE-FI LLED BREAST IMPLANT SMOOTH ROUND MIDRANGE PROFILE / [id number] / [id number] M15-265 Natrelle Silicone Breast Implant Smooth Round Midrange Profile - [id number] Implanted:Qty: 1 on 02/28/2014 by Kar Nava MD at [facility] Left: Breast 09/11/2018 15-265 NATRELLE SILICONE BREAST IMPLANT SMOOTH ROUND MIDRANGE PROFILE / [id number] / [id number] Disc Cerv 6x14mm Prestige Lp Titnm Ceramic - [id number] Implanted:Qty: 1 on 10/07/2022 by Ulises Medina MD at [facility] N/A: Cervical Vertebrae [employer] [facility] 03/17/2030 [id number] / / [id number] Procedures Procedure Name Priority Date/Time Associated Diagnosis Comments XR SPINE CERVICAL 4 OR 5 VIEWS Routine 03/20/2023 8:37 AM AUTO CLAIM REPRESENTATIVE Neck pain from Last 3 Months Results * XR SPINE CERVICAL 4 OR 5 VIEWS (03/20/2023 8:37 AM AUTO CLAIM REPRESENTATIVE) Anatomical Region Laterality Modality Spine, CERVICAL SPINE Computed R adiography Narrative 03/20/2023 8:38 AM AUTO CLAIM REPRESENTATIVE Report is available in patient chart at [facility]. Ulises Medina MD GENERAL IMAGING from Last 3 Months Advance Directives Latest Code Status on File Code Status Date Activated Date Inactivated Comments Full Code 10/07/2022 10:05 AM 10/08/2022 5:23 PM Question Answer Comments Code Status Discussion: Reviewed Preferences Code Status History Code Status Date Activated Date Inactivated Comments Full Code 02/28/2014 10:31 AM 02/28/2014 2:43 PM Full Code 06/17/2011 5:51 AM 06/18/2011 8:24 PM Care Teams Dialysis Social Worker Relationship Specialty Start Date End Date Medardo Graf MD [address] [place] [address] PCP - General Family Practice 09/24/22
--- OUTSIDE RECORDS SUMMARY | 2023-05-08 09:44 | XMS_ITS | Encounter Summary ---
Author Name Unknown Organization [facility] Address [address] [place] [address] Care Team Providers Care Air Bag Stripper Name Role Phone Needs Pcp, Assignment Primary Care Provider Reason for Visit * Procedure/Equipment (Routine) - Incomplete Specialty Diagnoses / Procedures Referred By Hiram t Referred To Contact Diagnoses Injury to cervical nerve root, initial encounter Cervical radiculopathy S/P cervical disc replacement Procedures MR Cervical Spine WO IV Cont Dennis Yancey MD [address] [place] [address] Referral ID Status Reason Start Date Expiration Date V isits Requested Visits Authorized [id number] Incomplete 07/02/2022 10/01/2023 1 1 Encounter Details Date Type Department Care Team Description 07/03/2022 6:30 PM CDT Ancillary Procedure [facility] [address] [place] [address] [place] [phone] Dennis Yancey MD [address] [facility] [place] [address] Injury to cervical nerve root, initial encounter; Cervical radiculopathy; S/P cervical disc replacement Social History Tobacco [...] Department Care Team Description 05/23/2023 9:00 AM BOILERMAKER WELDER Appointment [facility] [address] [place] [address] documented as of this encounter Procedures Procedure Name Priority Date/Time Associated Diagnosis Comments MR CERVICAL SPINE WO IV CONT STAT 07/03/2022 6:56 PM CDT Injury to cervical nerve root, initial encounter Cervical radiculopathy S/P cervical disc replacement documented in this encounter Results * MR Cervical Spine WO IV Cont (07/03/2022 6:56 PM CDT) Anatomical Region Laterality Modality Spine, C-Spine, Neck, Vascular, MSK Magnetic Resonance 07/03/2022 6:27 PM CDT Impressions 07/03/2022 7:04 PM CDT INDICATION: LUE radiculopathy h/o disc replacement, eval for disc replacement stability TECHNIQUE: ??MRI of the cervical spine without contrast. COMPARISON: ??Cervical spine radiographs 07/02/2022, cervical spine MRI 01/21/2011 FINDINGS: ?? Previous disc arthroplasty at C6-7. Prominent susceptibility [...] arthropathy. No significant canal or foraminal narrowing. ?? C5-6: Mild facet arthropathy. Otherwise obscured by artifact. C6-7: Mild facet arthropathy. Otherwise obscured by artifact. C7-T1: Mild facet arthropathy. Otherwise obscured by artifact. IMPRESSION: ?? 1. Previous C6-7 disc arthroplasty. 2. No significant spinal canal stenosis or neural foraminal narrowing outside the region obscured by artifact. Narrative Procedure Note Kyle Ybarra MD - 07/03/2022 IMPRESSION INDICATION: LUE radiculopathy h/o disc replacement, eval for discreplacement stability TECHNIQUE: MRI of the cervical spine without contrast. COMPARISON: Cervical spine radiographs 07/02/2022, cervical spine MRI01/21/2011 FINDINGS: Previous disc arthroplasty at C6-7. Prominent susceptibility artifactlimits evaluation in this region. Cervical vertebral heights andintervertebral disc heights are otherwise preserved. Grossly normal spinalcord signal and caliber outside the region of artifact. C2-3: No significant canal or foraminal narrowing. C3-4: No significant canal or foraminal narrowing. C4-5: Tiny central disc osteophyte complex. Mild facet arthropathy. Nosignificant canal or foraminal narrowing. C5-6: Mild facet arthropathy. Otherwise obscured by artifact. C6-7: Mild facet arthropathy. Otherwise obscured by artifact. C7-T1: Mild facet arthropathy. Otherwise obscured by artifact. IMPRESSION: 1. Previous C6-7 disc arthroplasty. 2. No significant spinal canal stenosis or neural foraminal narrowingoutside the region obscured by artifact. Dennis Yancey MD RAD MRI documented in this encounter Visit Diagnoses Diagnosis Injury to cervical nerve root, initial encounter Cervical radiculopathy Brachial neuritis or radiculitis nos S/P cervical disc replacement documented in this encounter Care Teams Air Bag Stripper Relationship Specialty Start Date End Date Needs Pcp, [place] [address] PCP - General 08/12/14 documented as of this encounter
--- OUTSIDE RECORDS SUMMARY | 2023-05-08 09:44 | XMS_ITS | Continuity of Care Document ---
Author Name Unknown Organization [facility] Address [address] [place] [address] Phone Care Team Providers Care Machine Grinder Name Role Phone Ben Garrison Unavailable Unavailab le Allergies, Adverse Reactions, Alerts Substance Reaction Status Criticality ZOLPIDEM TARTRATE Active No Informa tion Medications Medication Instructions Dosage Effective Dates (start - stop) Status Comments SPIRONOLACTONE (unknown strength) Not Available - Active Procedures Procedure Date Office/Outpatient Visit,Est, Mod 2022 X-Ray Exam Of Neck Spine, 4+ Views Postop Followup Visit X-Ray Exam Of Neck Spine, 4+ Views Arthroplasty, Cervical - PA Arthroplasty, Cervical Pre Op Office/Outpatient Visit, Office/Outpatient Visit,Est, Mod 2022 X-Ray Exam Of [...] Copied on Encounter [facility], [address], [place], [place], [id number], [place] tel:[phone] [facility] No Information 3 Korey Contreras. [facility], [address], [address], [place], [address], [place]. tel:[phone] Office/Outpa tient Visit,Est, Mod [facility], [address], [place], [place], [id number], [place] tel:[phone] [facility] - [facility] Encounter for other specified surgical aftercare 3 Adam Montgomery. [facility], [address], [place], [place], [id number] , [place]. [phone] Referring Provider: Ulises Medina, [facility] [address], [place], [address] . tel:[phone] [facility], [address], [place], [place], [id number], [place] tel:[phone] [facility] - [facility] Encounter for other specified surgical aftercare 3 Artur Chong. [facility], [address], [place], [place], [address] , [place]. [phone] Referring Provider: Ulises Medina, [facility] [address], [place], [address] . tel:[phone] [facility], [address], [place], [place], [address], [place] tel:[phone] [facility] No Information 3 Artur Chong. [facility], [address], [place], [place], [address] , [place]. tel:[phone] Referring Provider: Ulises Medina, [facility] [address], [place], [address] . tel:[phone] [facility], [address], [place], [place], [id number], [place] tel:[phone] [facility] Information 3 Adam Montgomery. [facility], [address], [place], [place], [address] , [place]. tel:[phone] Referring Provider: Ulises Medina, [facility] [address], [place], [address] . tel:[phone] Pre Op Office/Outpa tient Visit, [facility], [address], [place], [place], [address], [place] tel:[phone] [facility] - [facility] Radiculopathy, cervical regionCervical disc disorder with myelopathy, cervicothoraci c regionWeakness 3 Adam Montgomery. [facility], [address], [place], [place], [address] , [place]. tel:[phone] Referring Provider: Ulises Medina, [facility] [address], [place], [address] . tel:[phone] Office/Outpa tient Visit,Est, Mod [facility], [address], [place], [place], [address], [place] tel:[phone] [facility] - [facility] Radiculopathy, cervical regionCervical disc disorder with myelopathy, cervicothoraci c regionWeakness 3 Ed Tucker. [facility], [address], [place], [address], [place]. tel:[phone] Referring Provider: Ulises Medina, [facility] [address], [place], [address] . tel:[phone] Office/Outpa tient Visit,New, Mod [facility], [address], [place], [place], [id number], [place] tel:[phone] [facility] Radiculopathy, cervical regionEncounte r for follow-up examination after completed treatment for conditions other than malignant neoplasm 3 Ed Joshiher. [facility], [address], [place], [address], [place]. tel: [phone] Referring Provider: Ulises Medina, [facility] [address], [place], [address] . tel:[phone] Office/Outpa tient Visit,New, Mod [facility], [address], [place], [place], [address], [place] tel:[phone] [facility] Arthrodesis status 8 Artur Chong. [facility], [address], [place], [place], [address] , [place]. tel:[phone] Referring Provider: Ulises Medina, [facility] [address], [place], [address] . tel:[phone] Office/Outpa tient Visit,Est, Mod Z [facility], [address], [place], [address], [place] tel:[phone] [facility] No Information 4 Artur Chong. [facility], [address], [place], [place], [address] , [place]. tel:[phone] Referring Provider: Ulises Medina, [facility] [address], [place], [address] . tel:[phone] Z [facility], [address], [place], [address], [place] tel:[phone] [facility] - [facility] BRACHIAL NEURITIS NOSARTHRODESIS STATUS 4 Adam Montgomery. [facility], [address], [place], [place], [address] , [place]. tel: [phone] Z [facility], [address], [place], [address], [place] tel:[phone] [facility] No Information 2 Adam Montgomery. [facility], [address], [place], [place], [address] , [place]. tel: [phone] Referring Provider: Ulises Medina, [facility] [address], [place], [address] . tel:[phone] Z [facility], [address], [place], [facility], [place] tel:[phone] [facility] No Information Jun- 2 Adam Montgomery. [facility], [address], [place], [place], [address] , [place]. tel: [phone] Referring Provider: Ulises Medina, [facility] [address], [place], [address] . tel:[phone] Z [facility], [address], [place], [address], [place] tel:[phone] [facility] No Information Jun- 2 Artur Chong. [facility], [address], [place], [place], [address] , [place]. tel: [phone] Referring Provider: Primary Care Doctor No. Z [facility], [address], [place], [address], [place] tel:[phone] [facility] Headache Mar-0 7-201 2 Artur Chong. [facility], [address], [place], [place], [address] , [place]. tel:[phone] Referring Provider: Ulises Medina, [facility] [address], [facility] [place], [address] . tel:[phone] Z [facility], [address], [place], [address], [place] tel:[phone] [facility] No Information Mar-0 5201 2 Adam Montgomery. [facility], [address], [facility], [id number] , [place]. tel: [phone] Referring Provider: Ulises Medina, [facility] [address], [facility] [place], [address] . tel:[phone] Z [facility], [address], [place], [address], [place] tel:[phone] [facility] No Information Mar-0 201 2 Adam Montgomery. [facility], [address], [facility], [place], [id number] , [place]. tel: [phone] Office/Outpa tient Visit,Est, Mod Z [facility], [address], [place], [address], [place] tel:[phone] [facility] No Information May-0 201 2 Adam Montgomery. [facility], [address], [facility], [address] , [place]. tel: [phone] Referring Provider: Ulises Medina, [facility] [address], [facility] [place], [address] . tel:[phone] Office/outpa tient visit,new, mod Z [facility], [address], [place], [address], [place] tel:[phone] [facility] No Information 201 1 Adam Montgomery. [facility], [address], [place], [place], [address] , [place]. [phone] Referring Provider: Ulises Medina, [facility] [address], [place], [address] . tel:[phone] Family History Family Member Type Diagnosis Age At Onset Father Problem (finding) coronary arterioscleros is Father Problem (finding) raised blood lipids Mother Problem (finding) raised blood lipids Payers Payer name Insurance type Covered democrat ID Mohamud arambula(s) [facility] [id number] Social History Type Description Quantity Date Captured Comments Sex Female Smoking Status No Information Chief Complaint And Reason For Visit No Information Reason For Referral Reason For Referral No Information Plan Of Treatment Date Type Action Status Future Order: Radiology Order Ce rvical 4 Or 5 Views (CMIN4), Ordered on: Ordered Future Order: Radiology Order AP Lateral Cervical (APlatcerv), Ordered on: Ordered Future Order: Radiology Order F/ E Cervical (F/Ecervical), Ordered on: Ordered History Of Present Illness Encounter Date Complaint History Of Prese nt Illness No Information Functional Status Date Functional Assessmen t No Information Instructions Date Instruction Additional Infor mation No Information Assessments Type Assessment Date No Information Patient Care Teams Name Effective Dates (start - stop) Status Members No Information
--- OUTSIDE RECORDS SUMMARY | 2023-05-08 09:44 | XMS_ITS | Encounter Summary ---
Author Name Unknown Organization [facility] Address [address], [place] [address] Care Team Providers Care Director Of Oncology Name Role Phone Needs Pcp, Assignment Primary Care Provider [phone] Reason for Visit * Reason Comments Neck Pain Encounter Details Date Type Department Care Team Description 07/01/2022 1:50 PM CDT [facility] [address] [place] [address] Shana Pat, DO [address] [address] Canceled (Patient Request) Social History Tobacco Use Types Packs/Day Years [...] Department Care Team Description 05/23/2023 9:00 AM TWISTING DEPARTMENT END FINDER Appointment [facility] [address] [place] [address] documented as of this encounter Visit Diagnoses Not on filedocumented in this encounter Care Teams Director Of Oncology Relationship Specialty Start Date End Date Needs Pcp, [place] [address] PCP - General 5/1/15 documented as of this encounter
--- OUTSIDE RECORDS SUMMARY | 2023-05-08 09:44 | XMS_ITS | Encounter Summary ---
Author Name Unknown Organization [facility] Address [address], [place] [address] Care Team Providers Care Visor Installer Name Role Phone Needs Pcp, Assignment Primary Care Provider [phone] Reason for Referral * Procedure/Equipment (Routine) - Incomplete Specialty Diagnoses / Procedures Referred By Kalac t Referred To Contact Diagnoses Injury to cervical nerve root, initial encounter Cervical radiculopathy S/P cervical disc replacement Procedures MR Cervical Spine WO IV Cont Dennis Yancey MD [address] [place] [address] Referral ID Status Reason Start Date Expiration Date V isits Requested Visits Authorized [id number] Incomplete 07/02/2022 10/01/2023 1 1 * Procedure/Equipment (Routine) - Incomplete Specialty Diagnoses / Procedures Referred By Hiram t Referred To Contact Diagnoses Injury to cervical nerve root, initial encounter Procedures XR Cervical Spine 2 Views Dennis Yancey MD [address] [place] [address] Referral ID Status Reason Start Date Expiration Date V isits Requested Visits Authorized [id number] Incomplete 07/02/2022 10/01/2023 1 1 Reason for Visit * Reason Comments NECK PAIN Cervical pain and le ft arm pain x 2 - 3 days. S/P Cervical artificial disc placement 2011. Encounter Details Date Type Department Care Team Description 07/02/2022 5:10 PM CDT Office Visit [facility] [address] [place] [address] Dennis Yancey MD [address] [place] [address] Injury to cervical nerve root, initial encounter (Primary Dx); Cervical radiculopathy; S/P cervical disc replacement Social [...] Pressure - - Pulse - - Temperature 36.6 ??C (97.8 ??F) 07/02/2022 5:38 PM CD T Respiratory Rate - - Oxygen Saturation - - Inhaled Oxygen Concentration - - Weight 83.9 kg (185 lb) 07/02/2022 5:38 PM CDT Height 167.6 cm (5' 6) 07/02/2022 5:38 PM CDT Body Mass Index 29.86 07/02/2022 5:38 PM CDT documented in this encounter Patient Instructions * Patient Instructions* Amisha Witt, ATC - 07/02/2022 5:10 PM CDT Thank you for choosing [facility] for your health care visit today. Dennis Yancey MD Imaging Motel Operator: [facility] - [address] [place] [address]. Call [phone] to schedule. Medication Requests: Prescriptions are filled on Weekdays before 3:00PM For all medication refills: Request a refill using MyChart or contact your Pharmacy Paperwork Requests: FMLA or disability paperwork can be faxed to: [phone] Please allow 7-10 business days for completion of all paperwork. [facility] Worker's Compensation Services: E-mail Address: [email or web address] What is Know Your Cost? Know Your Cost is a service for patients and patient/members to call and receive personalized cost information and estimates across our care group. The phone number is (COST) Friday - Friday 8 AM to 5 PM To request copies of your medical records, call: [phone] (option 4) Diagnosis: Cervical Radiculopathy Plan: Follow Up: Schedule an appointment with Dr Medina, next available for further care. Medications: The following medications were prescribed at your visit : Orders Placed This Encounter Medications methylPREDNISolone (MEDROL 21 TABLET DOSEPACK) 4 MG tablet Sig: Follow package directions Dispense: 21 Tablet Refill: 0 cyclobenzaprine (FLEXERIL) 5 MG tablet Sig: Take 1 Tablet (5 mg) by mouth at bedtime as needed; may repeat x 1 for Muscle Spasms. Dispense: 30 Tablet Refill: 0 Medication Refill Requests: Prescription Refill Requests are not filled on Weekends or on Weekdays after 3:00PM For all medication refills: Request a refill using [facility] or contact your Pharmacy If you have any questions regarding your visit or next steps, please contact us at [phone]. documented in this encounter Progress Notes * Dennis Yancey MD - 07/02/2022 5:10 PM CDT Acute Injury Clinic Progress Note Date of visit: 07/02/2022 Chief Complaint Chief Complaint Patient presents with NECK PAIN Cervical pain and left arm pain x 2 - 3 days. S/P Cervical artificial disc placement 2011. History of Present Illness Lacey Nolasco is a 42 y.o. female that presents today for evaluation of NECK PAIN (Cervical painand left arm pain x 2 - 3 days. S/P Cervical artificial disc placement 2011.) Lacey Nolasco presents with 2-3 days of left-sided neck upper shoulder and arm pain. Seem to come on after she woke up from a normal sleep, and has become progressively worse since then. Pain radiates from the left posterior neck, left upper trapezius, down the arm along the radial aspect of theforearm with tingling in the 1st through 3rd fingers. Does not know of any specific trigger or incident that she can recall to set things off. She has a history of an artificial disc replacement in 2011 and is worried about problems with that. PMHx, medications, allergies, reviewed in Epic. Exam Temp 36.6 ??C (97.8 ??F) (Temporal Artery) Ht 1.676 m (5' 6) Wt 83.9 kg (185 lb) BMI 29.86 kg/m?? General/ Constitutional: Well nourished, well developed, no apparent distress Respiratory: Normal respirations, no retractions Neurological: Oriented to person, place, and time Psychological: Normal mood and affect Musculoskeletal Sits comfortably, ambulates without difficulty. There is tenderness in the bilateral upper trapezius areas, and also along the upper cervical lumbar area. Range of motion is full in flexion though painful, pain-free and full in extension, rotation is 60?? to the right and painful, 60?? to the left but less painful, side bending is 10?? to the right and 30?? to the left, painful only to the right.Upper extremity strength evaluation demonstrates trace weakness with resisted left wrist flexion and extension otherwise intact. Slightly decreased sensation in the 1st through 3rd fingers to light touch. Fingers are warm and well perfused bilaterally, with good distal radial pulses and capillary refill. Imaging XR Cervical Spine 2 Views COMPARISON: MRI 01/21/2011 FINDINGS: C6-7 anterior fusion hardware instrumentation. No fracture or subluxation of the cervicalvertebral bodies is identified. Mild disc space narrowing at C5-6. No prevertebral soft tissue swelling is seen. These images were independently reviewed by myself and with the patient, as well as relevant imagesavailable via PACS if available. Assessment/Plan 1. Injury to cervical nerve root, initial encounter - XR Cervical Spine 2 Views; Future - MR Cervical Spine WO IV Cont; Future 2. Cervical radiculopathy - MR Cervical Spine WO IV Cont; Future 3. S/P cervical disc replacement - MR Cervical Spine WO IV Cont; Future Cervical spine images performed today appear essentially the same as comparison views she has on her phone. Reassurance, bolts are intact, and there is no significant disc space narrowing nor artificial disc changes visible radiographically. She is demonstrating radicular symptoms however with mild weakness, and correlation to disc replacement status is unclear. We will proceed with oral steroids, muscle relaxers for tonight, and an MRI for which she will follow-up with her spine surgeon Dr. Medina who is now available through [facility]. I have discussed the nature of her current subjective complaints, clinical examination, test results and have reviewed treatment options. Dennis Yancey MD, CAQ This note contains medical terminology which is meant for communication between health care physicians and providers. Please note that vocabulary/phrasing/abbreviations may not carry the same definitions as they would in normal conversational speech. Additionally voice recognition software was usedto generate this note. As a result, wrong word or '[id number]' substitutions may have occurred due to the inherent limitations of voice recognition software. There may be errors in the script that have gone undetected. Please consider this when interpreting information found in this chart. documented in this encounter Plan of Treatment Upcoming Encounters Date Type Department Care Team Description 05/23/2023 9:00 AM SOFTWARE MANAGER Appointment [address] [address] documented as of this encounter Results * MR Cervical Spine [...] by artifact. Dennis Yancey MD RAD MRI * XR Cervical Spine 2 Views (07/02/2022 [...] Diagnosis Injury to cervical nerve root, initial encounter- Primary Cervical radiculopathy Brachial neuritis or radiculitis nos S/P cervical disc replacement Injury to cervical nerve root, initial encounter Injury to cervical nerve root, initial encounter Cervical radiculopathy Brachial neuritis or radiculitis nos S/P cervical disc replacement documented in this encounter Care Teams Visor Installer Relationship Specialty Start Date End Date Needs Pcp, [place] [address] PCP - General 08/12/14 documented as of this encounter
== END 2023-05-08 09:37 | disposition home or self-care (01) ==
PROVIDERS: PCP Family Medicine; Visit Provider Family Medicine
DX: E78.00 Pure hypercholesterolemia, unspecified (principal); E03.9 Hypothyroidism, unspecified; R53.83 Other fatigue; E66.9 Obesity, unspecified
CPT/HCPCS: 80053; 80061; 84443

== ENCOUNTER 2023-09-19 09:16 | Outpatient (CLI) | payer BC, SELFPAY ==
--- OUTSIDE RECORDS SUMMARY | 2023-10-07 09:34 | XMS_ITS | Referral Summary ---
Author Organization [facility] Address [address] [place] [id number] Care Team Providers Care Hat And Cap Parts Cutter Hand Name Role Phone Medardo Graf MD Primary Care Provider [phone] Umu Duke MD Unavailable [phone] Allergies Active Allergy Reactions Criticality Noted Date Comments Zolpidem Tartrate 04/17/2011 blacks out but doesn't fall asleep Medications Medication Sig Dispensed Refills Start Date End Date Status valACYclovir (VALTREX) 500 MG tablet 12/29/2017 Active levothyroxine (SYNTHROID/LEVOTHROID) 50 MCG tablet 50 mcg daily 04/09/2019 Active norgestrel-ethinyl estradiol (LO/OVRAL) 0.3-30 MG-MCG tablet Take 1 tablet by mouth 03/15/2020 Active liothyronine (CYTOMEL) 25 MCG tablet Take 25 mcg by mouth daily Active Active Problems Problem Noted Date Diagnosed Date Submucous leiomyoma of uterus 06/15/2020 Overview: Added automatically from request for surgery [id number] Vaginal delivery 04/28/2012 Labor and delivery, indication for care 04/25/19 13 Uterine contractions or other obstetric complain ts 04/08/2012 Head ache 11/04/2011 Immunizations Name Administration Dates Next Due Influenza (intradermal) 11/21/2017 Td (Adult), Adsorbed 04/12/2004 Social History Tobacco Use Types Packs/Day Years Used Date Smoking Tobacco: Never Smokeless Tobacco: Never Tobacco Cessation:Counseling Given: Not Answered Alcohol Use Standard Drinks/Week Comments Yes 0 [...] Sign Reading Time Taken Comments Blood Pressure 126/76 05/26/2023 7:30 AM BEEF CATTLE FARMER Pulse 87 05/26/2023 7:30 AM BEEF CATTLE FARMER Temperature 36.9 ??C (98.5 ??F) 05/26/2023 5:15 AM CS T Respiratory Rate 18 05/26/2023 7:30 AM BEEF CATTLE FARMER Oxygen Saturation 100% 05/26/2023 7:30 AM BEEF CATTLE FARMER Inhaled Oxygen Concentration - - Weight 79.4 kg (175 lb) 05/26/2023 5:15 AM BEEF CATTLE FARMER Height 167.6 cm (5' 6) 05/26/2023 5:15 AM BEEF CATTLE FARMER Body Mass Index 28.25 05/26/2023 5:15 AM BEEF CATTLE FARMER Plan of Treatment Not on file Procedures Procedure Name Priority Date/Time Associated Diagnosis Comments BASIC METABOLIC PANEL STAT 05/26/2023 5:46 AM BEEF CATTLE FARMER MA SCREENING WITH IMPLANTS BILATERAL W/ DEVAN Routine 11/01/2020 12:04 PM CDT LIPID PROFILE Routine 03/19/2018 HIV 1 AND 2 ANTIBODY (QUEST) Routine 09/23/2011 from Last 3 Months or Most Recently Relevant to Health Maintenance Results * Basic metabolic panel (05/26/2023 5:46 AM BEEF CATTLE FARMER) Sodium 139 135 - 145 mmol/L 05/26/2023 6:18 AM BEEF CATTLE FARMER [facility] Comment:Reference intervals for this test were updated on 01/07/2023 to more accurately reflect our healthy population. There may be differences in the flagging of prior results with similar values performed with this method. Interpretation of those prior results can be made in the context of the updated reference intervals. Potassium 4.1 3.4 - 5.3 mmol/L 05/26/2023 6:[address] [facility] Chloride 101 98 - 107 mmol/L 05/26/2023 6:[address] [facility] Carbon Dioxide (CO2) 27 22 - 29 mmol/L 05/26/2023 6:[address] [facility] Anion Gap 11 7 - 15 mmol/L 05/26/2023 6:[address] [facility] Urea Nitrogen 9.0 6.0 - 20.0 mg/dL 05/26/2023 6:[address] [facility] Creatinine 0.82 0.51 - 0.95 mg/dL 05/26/2023 6:[address] [facility] GFR Estimate 89 >60 mL/min/1. 73m2 05/26/2023 6:[address] [facility] Calcium 9.5 8.6 - 10.0 mg/dL 05/26/2023 6:[address] [facility] Glucose 96 70 - 99 mg/dL 05/26/2023 6:[address] [facility] Blood BLOOD SPECIMEN / Unknown Venipuncture / Unknown 05/26/2023 5:46 AM BEEF CATTLE FARMER 05/26/2023 5:55 AM [facility] Allen Ayon MD LAB - BLOOD LUC ISSA [facility] Organization Address City/State/ZIP Co de Phone Number LABORATORY [facility] [address] Lab (1st floor, no room number) [place] [address], [facility] [place] [phone] * (ABNORMAL) Lipid Profile (03/19/2018) Cholesterol 239(A) 90 - 200 mg/dL [facility] Triglycerides 114 40 - 197 mg/dL [facility] HDL Cholesterol 83 >=50 mg/dL [facility] LDL Cholesterol Calculated 133(A) <100 mg/dL [facility] Blood specimen (specimen) 03/19/2018 Narrative [facility] - 03/19/2018 LAB RESULT [facility] Provider Outside LAB - BLOOD ORDERABL ES [facility] [address] [place] [address], [facility] [place] [phone] * HIV 1 and 2 Antibody (09/23/2011) HIV-1 & HIV-2 Antibody HIV 1&2 Antibody non reactive Blood specimen (specimen) Patient Reported LAB - BLOOD ORDERABL ES from Last 3 Months or Most Recently Relevant to Health Maintenance Care Teams Hat And Cap Parts Cutter Hand Relationship Specialty Start Date End Date Medardo Graf MD PCP - General Family Practice 11/15/18 Umu Duke MD [address] [facility] [address] [place], [place] [address] water regulator and valve repairer 03/16/20
--- OUTSIDE RECORDS SUMMARY | 2023-10-07 09:34 | XMS_ITS | Clinical Summary ---
Author Organization [email or web address] Address [address] [place] [address] Care Team Providers Care Horticulturalist Name Role Phone Needs Pcp, Assignment Primary Care Provider [phone] Source Comments You are receiving this document as you are listed as the primary care provider,follow-up provider, or the patient has been referred to you for consultation.This is in compliance with the Medicare and[facility] Hospital[facility] EHR Incentive Program,which states Providers who transition their patient to another setting of careor provider of care or refers their patient to another provider of care shouldprovide summary care record for each transition of care or referral. [employer] Allergies Active Allergy Reactions Criticality Noted Date Comments Zolpidem Tartrate Low 04/03/2011 Paradoxical reaction Medications Medication Sig Dispensed Refills Start Date End Date Status valACYclovir (VALTREX) 500 MG tablet Take 1 Tablet (500 mg) by mouth as needed. 02/14/2020 Active norgestrel-ethinyl estradiol (LO/OVRAL) 0.3-30 MG-MCG tabletIndications: Abnormal uterine bleeding (AUB),History of endometrial ablation,Uterine leiomyoma, unspecified location Take 1 Tablet by mouth daily. Take continuously 84 Tablet 3 03/15/2020 Active Additional Information Patient not taking.Reported on 04/04/2020 valACYclovir (VALTREX) 1 g tablet Take by mouth as needed. 06/03/2022 Active methylPREDNISolone (MEDROL 21 TABLET DOSEPACK) 4 MG tablet Follow package directions 21 Tablet 07/02/2022 Active Additional Information Patient not taking.Reported on 07/18/2022 cyclobenzaprine (FLEXERIL) 5 MG tablet Take 1 Tablet (5 mg) by mouth at bedtime as needed; may repeat x 1 for Muscle Spasms. 30 Tablet 07/02/2022 Active HYDROcodone-acetam inophen (NORCO) 5-325 MG tablet Take 1 Tablet by mouth two times daily as needed for Pain. 10 Tablet 07/09/2022 Active gabapentin (NEURONTIN) 300 MG capsule Take 1 Capsule (300 mg) by mouth three times a day. 270 Capsule 3 07/09/2022 Active pregabalin (LYRICA) 75 MG capsuleIndications :Neck pain,Acute pain of left shoulder,Left arm pain Take 1 Capsule (75 mg) by mouth two times a day. 180 Capsule 1 07/18/2022 Active methocarbamol (ROBAXIN) 500 MG tabletIndications: Neck pain,Acute pain of left shoulder Take 1 Tablet (500 mg) by mouth every 6 hours as needed. 120 Tablet 1 07/18/2022 Active ketoconazole (NIZORAL) 2 % cream Apply topically two times a day. 02/21/2022 Active liothyronine (CYTOMEL) 25 MCG tablet Take 1 Tablet (25 mcg) by mouth daily. 07/08/2022 Active spironolactone (ALDACTONE) 50 MG tablet Take 1 Tablet (50 mg) by mouth two times a day. 07/19/2022 Active Active Problems Problem Noted Date Diagnosed Date Submucous leiomyoma of uterus 06/15/2020 Overview: Added automatically from request for surgery [id number] H/O breast biopsy 02/29/2020 Hypothyroid 02/29/2020 History [...] Free (3+yrs) 01/26/2011 Influenza IIV4 (Quadrivalent) 0.5mL (36020) 07/2012 Td 04/12/2004 Family History Medical History Relation Name Comments Coronary Artery Disease Father Heart Disease Father High Cholesterol Mother Migraines Mother High Cholesterol Maternal Grandmother Relation Name Status Comments Father Alive Mother [...] DT Respiratory Rate 16 04/28/2020 3:39 PM MINI BACCARAT DEALER Oxygen Saturation 100% 04/28/2020 3:39 PM MINI BACCARAT DEALER Inhaled Oxygen Concentration - - Weight 83.9 kg (185 lb) 07/22/2022 12:17 PM CDT Height 167.6 cm (5' 6) 07/22/2022 12:17 PM CDT Body Mass Index 29.86 07/22/2022 12:17 PM CDT Plan of Treatment Health Maintenance Due Date Last Done Comments HepB (1) 1997 DTaP/Tdap/Td (1 - Tdap) 04/13/2004 04/12/2004 Colon Cancer Screening Plan Due 09/08/2013 09/07/2013 Adult Preventive Visit 02/28/2021 02/29/2020 COVID-19 Vaccine ( season) 2022 Influenza (Season Ended) 2023 021, 12/27/2019, 01/01/2019, Additional history exists Cervical Cancer Screening 02/28/20252019, 06/09/2015, 09/23/2011, Additional history exists Cholesterol 02/28/2025 02/29/2020, 10/09/2010 Zoster/Shingles (1 of 2) 2028 Hep C [...] on patient's age to complete this topic Procedures Procedure Name Priority Date/Time Associated Diagnosis Comments PAP TEST Routine 02/29/2020 4:22 PM MINI BACCARAT DEALER Encounter for gynecological examination without abnormal finding Screening for malignant neoplasm of cervix CHOLESTEROL, TOTAL AND HDL Routine 02/29/2020 4:12 PM MINI BACCARAT DEALER Lipid screening COLONOSCOPY Routine 09/07/2013 8:01 AM CDT Nonspecific (abnormal) findings on radiological and other examination of gastrointestinal tract HIV ANTIBODY Routine 09/23/2011 8:32 AM CDT Special screening examination for other specified viral diseases Screening examination for venereal disease HEPATITIS C ANTIBODY, WITH REFLEX Routine 05/24/2009 5:10 PM MINI BACCARAT DEALER from Last 3 Months or Most Recently Relevant to Health Maintenance Results * PAP Test (02/29/2020 4:22 PM MINI BACCARAT DEALER) Case Report Pap ? Case: [id number] ? Authorizing Provider: ??Lillian Holbrook, INDUSTRIAL SAFETY AND HEALTH TECHNICIAN, CNM ??Collected: ? 02/29/2020 1622 ? Ordering Location: ? [facility] ? Received: ?02/29/2020 1649 ? Services-BUSINESS UNIT LEADER ? First Screen: ?Mojgan Cool, CT (ASCP) ? Specimen: ?Pap Test, Routine, Cervix/Endocervix ? 03/14/2020 9:37 AM MINI BACCARAT DEALER [facility] Pap Specimen Adequacy Satisfactory for evaluation, endocervical/gottlieb sformation zone component present. 03/14/2020 9:37 AM MINI BACCARAT DEALER [facility] Pap Interpretation Negative for intraepithelial lesion or malignancy (NILM). 03/14/2020 9:37 AM MINI BACCARAT DEALER [facility] Pap Disclaimer The Pap test is a screening test designed to aid in the detection of cervical cancer and its precursor lesions. It is not a diagnostic procedure and should not be used as the sole means of detecting cervical cancer. Both false-positive and false-negative results may occur. 03/14/2020 9:37 AM MINI BACCARAT DEALER [facility] Gross Description The specimen is received in SurePath fixative and properly labeled. 1 Pap-stained SurePath slide is prepared. 03/14/2020 9:37 AM MINI BACCARAT DEALER [facility] Embedded Images 0 9:37 AM [facility] Other Specimen Type ENTIRE ENDOCERVIX / Unknown 02/29/2020 4:22 PM MINI BACCARAT DEALER 02/29/2020 4:49 PM MINI BACCARAT DEALER Comment:LMP: Patient's last menstrual period was 02/08/2020. Lillian Holbrook APRN, CNM LAB PATHOLOGY Performing Organization Address City/[facility]/ZIP Co de Phone Number [facility] [address] * (ABNORMAL) Cholesterol, Total & HDL [CHS] (02/29/2020 4:12 PM MINI BACCARAT DEALER) Cholesterol 206(H) 0 - 199 mg/dL 03/01/2020 12:53 PM [facility] HDL Cholesterol 64 >=40 mg/dL 0 12:53 PM [facility] Non HDL Chol, Calculated 142 mg/dL 03/01/2020 12:53 PM [facility] Blood Venipuncture / Unknown 02/29/2020 4:12 PM MINI BACCARAT DEALER 02/29/2020 4:12 PM MINI BACCARAT DEALER Lillian Holbrook APRN, CNM LAB_1 [facility] [address] [place] [address], [facility] [phone] * COLONOSCOPY [[id number]] (09/07/2013 8:01 AM CDT) 09/07/2013 8:01 AM CDT Narrative [facility]) - 09/07/2013 8:29 AM CDT Indications: ? Abdominal pain, Hematochezia, Melena, bloating Providers: ? Chapo Sood MD, Chela Lopez RN Referring MD: ? Medicines: ? Exactacaine [place] 2 doses, Fentanyl IV 100 mcgs, ? Versed/Midazolam IV 2 mgs, Zofran 4 mgs, See the ? other procedure note also for documentation of the ? administered medications Complications: ? No immediate complications. Procedure: ? Pre-Anesthesia Assessment: ? - Prior to the procedure, a History and Physical was ? performed, and patient medications, allergies and ? sensitivities were reviewed. The patient's tolerance ? of previous anesthesia was reviewed. ? - The risks and benefits of the procedure and the ? sedation options and risks were discussed with the ? patient. All questions were answered and informed ? consent was obtained. ? After obtaining informed consent, the endoscope was ? passed under direct vision. Prior to sedation, ? patient identity and procedure was reverified. ? Throughout the procedure, the patient's blood ? pressure, pulse, and oxygen saturations were ? monitored continuously. The Endoscope was introduced ? through the mouth, and advanced to the second part of ? duodenum. The upper GI endoscopy was accomplished ? without difficulty. The patient tolerated the ? procedure well. Findings: ? The esophagus was normal. ? The stomach was normal. ? The examined duodenum was normal. Biopsies were taken with a cold ? forceps for evaluation of celiac disease. Impression: ?- Normal esophagus. ? - Normal stomach. ? - Normal examined duodenum. Biopsied. Recommendation: ?- Await pathology results. ? - If the symptoms persist then consider video capsule ? endoscopy to evaluate small bowel. ? - Return to primary care physician. Procedure Code(s): ?? --- Professional --- ? 47749, Esophagogastroduodenoscopy, flexible, ? transoral; with biopsy, single or multiple Diagnosis Code(s): ?? --- Professional --- ? 789.00, Abdominal pain, unspecified site ? 578.1, Blood in stool CPT copyright 2013 [employer]. All rights reserved. The codes documented in this report are preliminary and upon coke still cleaner review may be revised to meet current compliance requirements. Attending Participation: Chapo Sood MD 09/07/2013 8:29 AM This report has been signed electronically. Number of Addenda: 0 Note Initiated On: 09/07/2013 8:01 AM Procedure Note Chapo Sood MD - 09/07/2013 Indications: Abdominal pain, Hematochezia, Melena, bloating Providers: Chapo Sood MD, Chela Lopez RN Referring MD: Medicines: Exactacaine [place] 2 doses, Fentanyl IV 100 mcgs, Versed/Midazolam IV 2 mgs, Zofran 4 mgs, See the other procedure note also for documentation of the administered medications Complications: No immediate complications. Procedure: Pre-Anesthesia Assessment: - Prior to the procedure, a History and Physical was performed, and patient medications, allergies and sensitivities were reviewed. The patient's tolerance of previous anesthesia was reviewed. - The risks and benefits of the procedure and the sedation options and risks were discussed with the patient. All questions were answered and informed consent was obtained. After obtaining informed consent, the endoscope was passed under direct vision. Prior to sedation, patient identity and procedure was reverified. Throughout the procedure, the patient's blood pressure, pulse, and oxygen saturations were monitored continuously. The Endoscope was introduced through the mouth, and advanced to the second part of duodenum. The upper GI endoscopy was accomplished without difficulty. The patient tolerated the procedure well. Findings: The esophagus was normal. The stomach was normal. The examined duodenum was normal. Biopsies were taken with a cold forceps for evaluation of celiac disease. Impression: - Normal esophagus. - Normal stomach. - Normal examined duodenum. Biopsied. Recommendation: - Await pathology results. - If the symptoms persist then consider video capsule endoscopy to evaluate small bowel. - Return to primary care physician. Procedure Code(s): --- Professional --- 93315, Esophagogastroduodenoscopy, flexible, transoral; with biopsy, single or multiple Diagnosis Code(s): --- Professional --- 789.00, Abdominal pain, unspecified site 578.1, Blood in stool CPT copyright 2013 [employer]. All rights reserved. The codes documented in this report are preliminary and upon coke still cleaner review may be revised to meet current compliance requirements. Attending Participation: Chapo Sood MD 09/07/2013 8:29 AM This report has been signed electronically. Number of Addenda: 0 Note Initiated On: 09/07/2013 8:01 AM Chapo Sood MD DIGESTIVE CARE Performing Organization Address City/[facility] Co de Phone Number [facility] ([facility]) [place], [place] * HIV ANTIBODY (09/23/2011 8:32 AM CDT) HIV 1/HIV 2 Non-React Non-Reacti ve HP CONVERSION 09/23/2011 8:32 AM CDT 09/23/2011 11:48 AM CDT Sonja Dalton APRN, UTILITY BILL COLLECTOR LAB_1 Performing Organization Address [facility] Co de Phone Number HP CONVERSION * Hepatitis C Antibody, with Reflex (05/24/2009 5:10 PM MINI BACCARAT DEALER) Hepatitis C Antibody Non Reac Non Reac HP CONVERSION 05/24/2009 5:10 PM MINI BACCARAT DEALER Amanda Stockton APRN, UTILITY BILL COLLECTOR LAB_1 Performing Organization Address City/[facility] Co de Phone Number HP CONVERSION from Last 3 Months or Most Recently Relevant to Health Maintenance Care Teams Horticulturalist Relationship Specialty Start Date End Date Needs Pcp, [place] [address] PCP - General 08/12/14
--- OUTSIDE RECORDS SUMMARY | 2023-10-07 09:34 | XMS_ITS | Continuity of Care Document ---
Author Organization [facility] Address [address] [place] [address] Phone Care Team Providers Care Spray Applicator Name Role Phone Ben Garrison Unavailable Unavailab [...] Copied on Encounter [facility], [address], [place], [place], [id number], [place] tel:[phone] [facility] No Information 3 Korey Cedilloolas. [facility], [address], [address], [place], [address], [place]. tel:[phone] Office/Outpa tient Visit,Est, Mod [facility], [address], [place], [place], [address], [place] tel:[phone] [facility] - [facility] Encounter for other specified surgical aftercare 3 Adam Montgomery. [facility], [address], [place], [place], [id number] , [place]. tel:[phone] Referring Provider: Ulises Medina, [facility] [address], [place], [address] . tel:[phone] [facility], [address], [place], [place], [id number], [place] tel:[phone] [facility] - [facility] Encounter for other specified surgical aftercare 3 Artur Chong. [facility], [address], [place], [place], [address] , [place]. [phone] Referring Provider: Ulises Meidna, [facility] [address], [place], [address] . tel:[phone] [facility], [address], [place], [place], [address], [place] tel:[phone] [facility] No Information 3 Artur Quispe [facility], [address], [place], [place], [address] , [place]. tel:[phone] Referring Provider: Ulises Medina, [facility] [address], [place], [address] . tel:[phone] [facility], [address], [place], [place], [address], [place] tel:[phone] [facility] No Information 3 Adam Montgomery. [facility], [address], [place], [place], [address] , [place]. tel:[phone] Referring Provider: Ulises Medina, [facility] [address], [place], [address] . tel:[phone] Pre Op Office/Outpa tient Visit, [facility], [address], [place], [place], [address], [place] tel:[phone] [facility] - [facility] Radiculopathy, cervical regionCervical disc disorder with myelopathy, cervicothoraci c regionWeakness 3 Adam Montgomery. [facility], [address], [place], [place], [address] , [place]. [phone] Referring Provider: Ulises Medina, [facility] [address], [place], [address] . tel:[phone] Office/Outpa tient Visit,Est, Mod [facility], [address], [place], [place], [address], [place] tel:[phone] [facility] - [facility] Radiculopathy, cervical regionCervical disc disorder with myelopathy, cervicothoraci c regionWeakness 3 Ed Tucker. [facility], [address], [place], [address], [place]. [phone] Referring Provider: Ulises Medina, [facility] [address], [place], [address] . tel:[phone] Office/Outpa tient Visit,New, Mod [facility], [address], [place], [place], [address], [place] tel:[phone] [facility] - [facility] Radiculopathy, cervical regionEncounte r for follow-up examination after completed treatment for conditions other than malignant neoplasm 3 Edvivian Tucker. [facility], [address], [place], [address], [place]. tel:[phone] Referring Provider: Ulises Medina, [facility] [address], [place], [address] . tel:[phone] Office/Outpa tient Visit,New, Mod [facility], [address], [place], [place], [address], [place] tel:[phone] [facility] - [facility] Arthrodesis status 8 Artur Chong. [facility], [address], [place], [place], [address] , [place]. tel: [phone] Referring Provider: Ulises Medina, [facility] [address], [place], [address] . tel:[phone] Office/Outpa tient Visit,Est, Mod Z [facility], [address], [place], [address], [place] tel:[phone] [facility] - [facility] No Information 4 Artur Chong. [facility], [address], [place], [place], [address] , [place]. tel:[phone] Referring Provider: Ulises Medina, [facility] [address], [place], [address] . tel:[phone] Z [facility], [address], [place], [address], [place] tel:[phone] [facility] - [facility] BRACHIAL NEURITIS NOSARTHRODESIS STATUS 4 Adam Montgomery. [facility], [address], [place], [place], [address] , [place]. tel: [phone] Z [facility], [address], [place], [address], [place] tel:[phone] [facility] - [facility] No Information 2 Adam Montgomery. [facility], [address], [place], [place], [address] , [place]. tel: [phone] Referring Provider: Ulises Medina, [facility] [address], [place], [address] . tel:[phone] Z [facility], [address], [place], [address], [place] tel:[phone] [facility] - [facility] No Information Jun-2 2 Adam Montgomery. [facility], [address], [place], [place], [address] , [place]. tel: [phone] Referring Provider: Ulises Medina, [facility] [address], [place], [address] . tel:[phone] Z [facility], [address], [place], [address], [place] tel:[phone] [facility] - [facility] No Information Jun- 2 Artur Chong. [facility], [address], [place], [place], [address] , [place]. tel: [phone] Referring Provider: Primary Care Doctor No. Z [facility], [address], [place], [address], [place] tel:[phone] [facility] Headache Mar-0 2 Artur Chong. [facility], [address], [place], [place], [address] , [place]. tel:[phone] Referring Provider: Ulises Medina, [facility] [address], [place], [address] . tel:[phone] Z [facility], [address], [place], [address], [place] tel:[phone] [facility] No Information Jun-0 2 Adam Montgomery. [facility], [address], [place], [place], [address] , [place]. tel:[phone] Referring Provider: Ulises Medina, [facility] [address], [place], [address] . tel:[phone] Z [facility], [address], [place], [address], [place] tel:[phone] [facility] No Information Jun-0 2 Adam Montgomery. [facility], [address], [place], [place], [address] , [place]. tel:[phone] Office/Outpa tient Visit,Est, Mod Z [facility], [address], [place], [address], [place] tel:[phone] [facility] No Information 2 Adam Montgomery. [facility], [address], [place], [place], [address] , [place]. tel:[phone] Referring Provider: Ulises Medina, [facility] [address], [place], [address] . tel:[phone] Office/outpa tient visit,new, mod Z [facility], [address], [place], [address], [place] tel:[phone] [facility] No Information 201 1 Adam Montgomery. [facility], [address], [place], [place], [address] , [place]. tel:[phone] Referring Provider: Ulises Medina, [facility] [address], [place], [address] . tel:[phone] Family History Family Member Type Diagnosis Age At Onset Father Problem (finding) coronary arterioscleros is Father Problem (finding) raised blood lipids Mother Problem (finding) raised blood lipids Payers Payer name Insurance type Covered democrat ID Mohamud arambula(s) [employer] [id number] Social History Type Description Quantity Date Captured [...]
--- OUTSIDE RECORDS SUMMARY | 2023-10-07 09:34 | XMS_ITS | Encounter Summary ---
[facility] Organization [facility] Address [address] [place] [address] Care Team Providers Care Green Building [employer] Distributor Name Role Phone Needs Pcp, Assignment Primary Care Provider [phone] Encounter Details Date Type Department Care Team (Late st Contact Info) Description 09/07/2013 Consent for Procedure/Treatme nt [facility] INFORMED CONSENT RECORD Social History [...] documented as of this encounter Care Teams [employer] Distributor Relationship Specialty Start Date End Date Needs Pcp, [place] [address] PCP - General 08/12/14 documented as of this encounter
--- OUTSIDE RECORDS SUMMARY | 2023-10-07 09:34 | XMS_ITS | Clinical Summary ---
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 [employer] Pulse 87 05/26/2023 7:30 AM [employer] Temperature 36.9 ??C (98.5 ??F) 05/26/2023 5:15 AM CS T Respiratory Rate 18 05/26/2023 7:30 AM [employer] Oxygen Saturation 100% 05/26/2023 7:30 AM [employer] Inhaled Oxygen Concentration - - Weight 79.4 kg (175 lb) 05/26/2023 5:15 AM [employer] Height 167.6 cm (5' 6) 05/26/2023 5:15 AM [employer] Body Mass Index 28.25 05/26/2023 5:15 AM PROF[employer]CHN[employer] Plan of Treatment Health Maintenance Due Date Last Done Comments ADVANCE CARE PLANNING 1978 ANNUAL REVIEW OF HM ORDERS 1978 CT COLONOGRAPHY 1978 FIT 1978 FLEX SIG 1978 TSH W/FREE T4 REFLEX 1978 sDNA (Cologuard) 1978 COLONOSCOPY 1988 COLORECTAL CANCER SCREENING 1988 HEPATITIS C SCREENING 1996 IPV IMMUNIZATION (3 of 3 - 4-dose series) 03/04/1999 09/01/1998, 09/01/1994 YEARLY PREVENTIVE VISIT 02/28/2021 02/29/2020, 02/28 MAMMO SCREENING 11/01/2022 11/01/2020, 11/01/2020 COVID-19 Vaccine ( season) 2022 06/01/2020, 05/07/2020 PAP 02/28/2023 02/29/2020, 02/29/2020 LIPID 03/19/2023 03/19/2018 PHQ-2 (once per calendar year) 2023 06/01/2020, 06/01/2020, 05/12/2020, Additional history exists INFLUENZA VACCINE (Season Ended) 2023 01/22/2021, 12/27/2019, 12/27/2019, Additional history exists GLUCOSE 05/26/2026 05/26/2023, 02/12, 07/11/2020, Additional history exists DTAP/TDAP/TD IMMUNIZATION (5 - Td or Tdap) 03/26/2030 03/26/2020, 03/03/2010, 10/02/2008, Additional history exists HEPATITIS B IMMUNIZATION Completed 009, 02/09/2008, 01/01/2008 HIV SCREENING Completed 09/23/2011 MENINGITIS IMMUNIZATION Aged Out 03/26/20 20, 03/25/2015, 03/03/2010, Additional history exists No longer [...] BASIC METABOLIC PANEL STAT 05/26/2023 5:46 AM 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 There may be differences in the flagging of prior results with similar values performed with this method. Interpretation of those prior results can be made in the context of the updated reference intervals. Potassium 4.1 3.4 - 5.3 mmol/L 05/26/2023 6:18 AM [facility] Chloride 101 98 - 107 mmol/L 05/26/2023 6:18 AM [facility] Carbon Dioxide (CO2) 27 22 - 29 mmol/L 05/26/2023 6:18 AM [facility] Anion Gap 11 7 - 15 mmol/L 05/26/2023 6:18 AM [facility] Urea Nitrogen 9.0 6.0 - 20.0 mg/dL 05/26/2023 6:18 AM [facility] Creatinine 0.82 0.51 - 0.95 mg/dL 05/26/2023 6:18 AM [facility] GFR Estimate 89 >60 mL/min/1. 73m2 05/26/2023 6:18 AM [facility] Calcium 9.5 8.6 - 10.0 mg/dL 05/26/2023 6:18 AM [facility] Glucose 96 70 - 99 mg/dL 05/26/2023 6:18 AM [facility] Blood BLOOD SPECIMEN / Unknown Venipuncture / Unknown 05/26/2023 5:46 AM PROF[employer] 05/26/2023 5:55 AM [facility] Allen Ayon MD LAB - BLOOD [facility] [address] [facility] (1st floor, no room number) [place] [address], [facility] [phone] * (ABNORMAL) Lipid Profile (03/19/2018) Cholesterol 239(A) 90 - 200 mg/dL [facility] Triglycerides 114 40 - 197 mg/dL [facility] HDL Cholesterol 83 >=50 mg/dL [facility] LDL Cholesterol Calculated 133(A) <100 mg/dL [facility] Blood specimen (specimen) 03/19/2018 Narrative [facility] - 03/19/2018 LAB RESULT [facility] Provider Outside LAB - BLOOD ORDERABL ES [facility] [address] [place], [place] [id number] [place] [address] * HIV 1 and 2 Antibody (09/23/2011) HIV-1 & HIV-2 Antibody HIV 1&2 Antibody non reactive Blood specimen (specimen) Patient Reported LAB - BLOOD ORDERABL ES from Last 3 Months or Most Recently Relevant to Health Maintenance Care Teams Editor Producer Relationship Specialty Start Date End Date Medardo Graf MD PCP - General Family Practice 11/15/18 Umu Duke MD [phone] [facility] [address] [place] [address] rn bsn 03/16/20
--- OUTSIDE RECORDS SUMMARY | 2023-10-07 09:34 | XMS_ITS | Continuity of Care Document ---
Author Name [facility] Organization [facility] Care Team Providers Care Customer Supply Chain Analyst Name Role Phone [facility] Unavailable Unavailable Problems Combined list of problems from Department of Defense and Veterans Affairs facilities. It does not include entries that were removed or entered in error. 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 It does not include entries that were removed or entered in error. Substance Category Reaction Severity Reaction type Status Date Reported Comments Source AMBIEN (ZOLPIDEM TARTRATE) Drug allergy (disorder) Unknown active 9 [place] [address] zolpidem Propensity to adverse reactions to substance Unknown Active 9 [facility] Immunizations Combined list of available immunizations from the Department of Defense and Veterans Affairs facilities. 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 Code Drug Banana Room Cutter Status Comments Source typhoid Vi capsular polysaccharid e vac 2021 [id number] sanofi pasteur complet ed typhoid Vi capsular polysacch aride vac 04/21/21 Given Ambulat ory Pharmac y influenza, seasonal, injectable 2020 [id number] 141 complet ed influenza , seasonal, injectabl e 01/22/21 Given Ambulat ory Pharmac y COVID Vaccine Moderna 2020 [id number] complet ed COVID Vaccine Moderna 06/01/20 Given Ambulat ory Pharmac y COVID Vaccine Moderna 2020 [id number] 207 complet ed COVID Vaccine Moderna 05/07/20 Given Ambulat ory Pharmac y meningococcal A,C,Y,W-135 (MCV4P) 2019 [id number] 114 sanofi pasteur complet ed meningoco ccal A,C,Y,W-1 35 (MCV4P) 03/26/20 Given Ambulat ory Pharmac y tetanus-dipht h toxoids (Td) adult/adol 2019 [id number] 09 sanofi pasteur complet ed tetanus-d iphth toxoids (Td) adult/ado l 03/26/20 Given Ambulat ory Pharmac y influenza, seasonal, injectable 2019 [id number] [employer] complet ed influenza , seasonal, injectabl e 12/27/19 Given Ambulat ory Pharmac y typhoid Vi capsular polysaccharid e vac 2018 [id number] 101 sanofi pasteur complet ed typhoid Vi capsular polysacch aride vac 03/27/19 Given Ambulat ory Pharmac y typhoid Vi capsular polysaccharid e vaccine 10 2018 [id number] 101 Sanofi Pasteur ([facility]) complet ed typhoid Vi capsular polysacch aride vaccine DoD influenza, injectable, quadrivalent 2018 [id number] 158 sanofi pasteur complet ed influenza , injectabl e, quadrival ent 01/01/19 Given Ambulat ory Pharmac y influenza, injectable, quadrivalent, contains preservative 1 2018 [id number] 158 Sanofi Pasteur ([facility]) complet ed influenza , injectabl e, quadrival ent, contains preservat sidra DoD influenza, injectable, quadrivalent 2017 [id number] 158 sanofi pasteur complet ed influenza , injectabl e, quadrival ent 12/20/17 Given Ambulat ory Pharmac y influenza, injectable, quadrivalent, contains preservative 1 2017 [id number] 158 Sanofi Pasteur ([facility]) complet ed influenza , injectabl e, quadrival ent, contains preservat sidra DoD influenza, injectable, quadrivalent 2016 [id number] 158 GlaxoSmithKli ut complet ed influenza , injectabl e, quadrival ent 03/23/17 Given Ambulat ory Pharmac y typhoid Vi capsular polysaccharid e vac 2016 [id number] 101 sanofi pasteur complet ed typhoid Vi capsular polysacch aride vac 03/23/17 Given Ambulat ory Pharmac y typhoid Vi capsular polysaccharid e vaccine 9 2016 [id number] 101 Sanofi Pasteur ([facility]) complet ed typhoid Vi capsular polysacch aride vaccine DoD influenza, injectable, quadrivalent, contains preservative 19 2016 [id number] 158 [facility] ([facility]B) complet ed influenza , injectabl e, quadrival ent, contains preservat sidra DoD anthrax vaccine 2016 [id number] 24 [employer] complet ed anthrax vaccine 09/01/16 Given Ambulat ory Pharmac y anthrax vaccine 6 2016 [id number] 24 [employer] [place] (MIP) complet ed anthrax vaccine DoD influenza, injectable, quadrivalent- pf 2015 [id number] 150 GlaxoSmithKli ne complet ed influenza , injectabl e, quadrival ent-pf 01/21/16 Given Ambulat ory Pharmac y Influenza, injectable, quadrivalent, preservative free 1 2015 [id number] 150 [facility] ([facility]) complet ed Influenza , injectabl e, quadrival ent, preservat sidra free DoD meningococcal A,C,Y,W-135 (MCV4P) 2014 [id number] 114 sanofi pasteur complet ed meningoco ccal A,C,Y,W-1 35 (MCV4P) 03/25/15 Given Ambulat ory Pharmac y meningococcal polysaccharid e (groups A, C, Y and W-135) diphtheria toxoid conjugate vaccine (MCV4P) 3 2014 [id number] 114 Sanofi Pasteur ([facility]) complet ed meningoco ccal polysacch aride (groups A, C, Y and W-135) diphtheri a toxoid conjugate vaccine (MCV4P) DoD influenza, seasonal, injectable-pf 2014 [id number] 140 CSL [employer]ring complet ed influenza , seasonal, injectabl e-pf 01/01/15 Given Ambulat ory Pharmac y typhoid Vi capsular polysaccharid e vac 2014 S5766-5 101 sanofi pasteur complet ed typhoid Vi capsular polysacch aride vac 01/01/15 Given Ambulat ory Pharmac y typhoid Vi capsular polysaccharid e vaccine 8 2014 [id number] 101 Sanofi Pasteur ([facility]MC) complet ed typhoid Vi capsular polysacch aride vaccine DoD Influenza, seasonal, injectable, preservative free 17 2014 [id number] 140 [facility] [employer], [employer]. (CSL) complet ed Influenza , seasonal, injectabl e, preservat sidra free DoD influenza, seasonal, injectable-pf 2013 [id number] 140 Unknown complet ed influenza , seasonal, injectabl e-pf 01/31/14 Given Ambulat ory Pharmac y Influenza, seasonal, injectable, preservative free 1 2013 140 Unknown (UNK) comple t ed Influenza , seasonal, injectabl e, preservat sidra free DoD anthrax vaccine 2013 [id number] 24 [employer] complet ed anthrax vaccine 01/01/14 Given Ambulat ory Pharmac y anthrax vaccine 5 2013 [id number] 24 [employer] [place] (MIP) complet ed anthrax vaccine DoD anthrax vaccine 2013 [id number] 24 [employer] complet ed anthrax vaccine 06/26/13 Given Ambulat ory Pharmac y anthrax vaccine 4 2013 [id number] 24 [employer] [place] (MIP) complet ed anthrax vaccine DoD measles/mumps /rubella virus vaccine 2013 [id number] [employer] complet ed measles/m umps/rube lla virus vaccine 05/08/13 Given Ambulat ory Pharmac y measles, mumps and rubella virus vaccine 2 2013 [id number] 03 Merck (MSD) complet ed measles, mumps and rubella virus vaccine DoD influenza, seasonal, injectable 2012 [id number] 141 complet ed influenza , seasonal, injectabl e 01/15/13 Given Ambulat ory Pharmac y Influenza, seasonal, injectable 1 2012 141 Transcribed (TRS) complet ed Influenza , seasonal, injectabl e DoD yellow fever vaccine 2012 [id number] 37 sanofi pasteur complet ed yellow fever vaccine 12/24/12 Given Ambulat ory Pharmac y typhoid Vi capsular polysaccharid e vac 2012 V9087-0 101 sanofi pasteur complet ed typhoid Vi capsular polysacch aride vac 12/24/12 Given Ambulat ory Pharmac y yellow fever vaccine 1 2012 [id number] 37 Sanofi Pasteur (PMC) complet ed yellow fever vaccine DoD typhoid Vi capsular polysaccharid e vaccine 1 2012 N7118-3 101 Sanofi Pasteur (PMC) complet ed typhoid Vi capsular polysacch aride vaccine DoD influenza, seasonal, injectable-pf 2011 [id number] 140 [employer] complet ed influenza , seasonal, injectabl e-pf 01/26/12 Given Ambulat ory Pharmac y Influenza, seasonal, injectable, preservative free 1 2011 [id number] 140 CS [employer], [employer]. (CS) complet ed Influenza , seasonal, injectabl e, preservat sidra free DoD influenza, seasonal, injectable 2010 [id number] 141 sanofi pasteur complet ed influenza , seasonal, injectabl e 03/23/11 Given Ambulat ory Pharmac y Influenza, seasonal, injectable 1 2010 [id number] 141 Sanofi Pasteur (PMC) complet ed Influenza , seasonal, injectabl e DoD typhoid Vi capsular polysaccharid e vac 2009 Y4884-4 101 sanofi pasteur complet ed typhoid Vi capsular polysacch aride vac 03/23/10 Given Ambulat ory Pharmac y typhoid Vi capsular polysaccharid e vaccine 1 2009 Z6941-6 101 Sanofi Pasteur (PMC) complet ed typhoid Vi capsular polysacch aride vaccine DoD meningococcal A,C,Y,W-135 (MCV4P) 2009 [id number] 114 sanofi pasteur complet ed meningoco ccal A,C,Y,W-1 35 (MCV4P) 03/03/10 Given Ambulat ory Pharmac y tuberculin purified protein derivative 2009 [id number] 96 sanofi pasteur complet ed tuberculi n purified protein derivativ e 03/03/10 Given Ambulat ory Pharmac y tetanus, diphtheria, acellular pertu is 2009 [id number] 115 sanofi pasteur complet ed tetanus, diphtheri a, acellular pertussis 03/03/10 Given Ambulat ory Pharmac y influenza virus vaccine,split 2009 [id number] 15 sanofi pasteur complet ed influenza virus vaccine,s plit 03/03/10 Given Ambulat ory Pharmac y influenza virus vaccine, split virus (incl. purified surface antigen)-reti red CODE 1 2009 [id number] 15 Sanofi Pasteur ([facility]) complet ed influenza virus vaccine, split virus (incl. purified surface antigen)- retired CODE DoD meningococcal polysaccharid e (groups A, C, Y and W-135) diphtheria toxoid conjugate vaccine (MCV4P) 1 2009 [id number] 114 Sanofi Pasteur ([facility]) complet ed meningoco ccal polysacch aride (groups A, C, Y and W-135) diphtheri a toxoid conjugate vaccine (MCV4P) DoD tetanus toxoid, reduced diphtheria toxoid, and acellular pertu is vaccine, adsorbed 1 2009 [id number] 115 Sanofi Pasteur ([facility]) complet ed tetanus toxoid, reduced diphtheri a toxoid, and acellular pertussis vaccine, adsorbed DoD anthrax vaccine 2009 [id number] 24 [employer] complet ed anthrax vaccine 07/29/09 Given Ambulat ory Pharmac y anthrax vaccine 3 2009 [id number] 24 [employer] [place] ([facility]) complet ed anthrax vaccine DoD influenza virus vaccine, live 2008 [id number] 111 [employer] comple t ed influenza virus vaccine, live 03/04/09 Given Ambulat ory Pharmac y influenza virus vaccine, live, attenuated, for intranasal use 1 2008 [id number] 111 [employer] (MED) complet ed influenza virus vaccine, live, attenuate d, for intranasa l use DoD Novel influenza-H1N 1-09, injectable 2008 [id number] 127 Novartis Pharmaceutica ls complet ed Novel influenza -B0I1-04, injectabl e 01/21/09 Given Ambulat ory Pharmac y Novel influenza-H1N 1-09, injectable 1 2008 [id number] 127 Novartis Pharmaceutica l [place]. (NOV) complet ed Novel influenza -X8N2-10, injectabl e DoD hepatitis B adult vaccine 2008 [id number] 43 GlaxoSmithKli ne complet ed hepatitis B adult vaccine 10/02/08 Given Ambulat ory Pharmac y tetanus, diphtheria, acellular pertu is 2008 [id number] 115 sanofi pasteur complet ed tetanus, diphtheri a, acellular pertussis 10/02/08 Given Ambulat ory Pharmac y hepatitis B vaccine, adult dosage 3 2008 [id number] 43 [employer] (SKB) complet ed hepatitis B vaccine, adult dosage DoD tetanus toxoid, reduced diphtheria toxoid, and acellular pertu is vaccine, adsorbed 1 2008 [id number] 115 Sanofi Pasteur ([facility]) complet ed tetanus toxoid, reduced diphtheri a toxoid, and acellular pertussis vaccine, adsorbed DoD anthrax vaccine 2007 [id number] 24 [employer] complet ed anthrax vaccine 03/03/08 Given Ambulat ory Pharmac y anthrax vaccine 2 2007 [id number] 24 [employer] [place] ([facility]) complet ed anthrax vaccine DoD hepatitis B [...] Ambulat ory Pharmac y anthrax vaccine 2007 [id number] 24 [employer] complet ed anthrax vaccine 02/06/08 Given Ambulat ory Pharmac y anthrax vaccine 1 2007 [id number] 24 [employer] [place] ([facility]) complet ed anthrax vaccine DoD typhoid vaccine, parenteral, other than acetone-kille d, dried 0 2007 [id number] 41 Sanofi Pasteur ([facility]) complet ed typhoid vaccine, parentera l, other than acetone-k illed, dried DoD influenza virus vaccine, live 2007 [id number] 111 [employer] comple t ed influenza virus vaccine, [...] live, attenuated, for intranasal use 1 2007 [id number] 111 [employer], [employer]. (MED) complet ed influenza virus vaccine, live, attenuate d, for intranasa l use DoD influenza virus vaccine, live 2006 [id number] 111 [employer] comple t ed influenza virus vaccine, live 03/28/07 Given Ambulat ory Pharmac y influenza virus vaccine, live, attenuated, for intranasal use 1 2006 [id number] 111 [employer], [employer]. (MED) complet ed influenza virus vaccine, live, attenuate d, for intranasa l use DoD influenza virus vaccine,split 2005 [id number] 15 sanofi pasteur complet ed influenza virus vaccine,s plit 03/23/06 Given Ambulat ory Pharmac y influenza virus vaccine, split virus (incl. purified surface antigen)-reti red CODE 1 2005 [id number] 15 Sanofi Pasteur ([facility]MC) complet ed influenza virus vaccine, split virus (incl. purified surface antigen)- retired CODE DoD typhoid vaccine, parenteral 2005 [id number] 41 sanofi pasteur complet ed typhoid vaccine, parentera l 01/26/06 Given Ambulat ory Pharmac y varicella virus vaccine 0 2005 21 () Not Given varicella virus vaccine DoD typhoid vaccine, parenteral, other than acetone-kille d, dried 1 2005 [id number] 41 Sanofi Pasteur (PMC) complet ed typhoid vaccine, parentera l, other than acetone-k illed, dried DoD influenza virus vaccine,split 2004 [id number] 15 sanofi pasteur complet ed influenza virus vaccine,s plit 03/02/05 Given Ambulat ory Pharmac y influenza virus vaccine, split virus (incl. purified surface antigen)-reti red CODE 1 2004 [id number] 15 Sanofi Pasteur (PMC) complet ed influenza [...] DoD influenza virus vaccine, whole virus 2002 [id number] 16 sanofi pasteur complet ed influenza virus vaccine, whole virus 02/16/03 Given Ambulat ory Pharmac y influenza virus vaccine, whole virus 0 2002 [id number] 16 Sanofi Pasteur (PMC) complet ed influenza virus vaccine, whole virus DoD tuberculin purified protein derivative 2001 [id number] 96 sanofi pasteur complet ed tuberculi n purified protein derivativ e 03/27/02 Given Ambulat ory Pharmac y influenza virus vaccine, whole virus 2001 [id number] 16 sanofi pasteur complet ed influenza virus vaccine, whole virus 03/27/02 Given Ambulat ory Pharmac y influenza virus vaccine, whole virus 0 2001 [id number] 16 Sanofi Pasteur (PMC) complet ed influenza virus vaccine, whole virus DoD typhoid Vi capsular polysaccharid e vac 2001 [id number] 101 sanofi pasteur complet ed typhoid Vi capsular polysacch aride vac 05/02/01 Given Ambulat ory Pharmac y typhoid Vi capsular polysaccharid e vaccine 0 2001 [id number] 101 Sanofi Pasteur (PMC) complet ed typhoid Vi capsular polysacch aride vaccine DoD influenza virus vaccine, whole virus 2000 [id number] 16 sanofi pasteur complet ed influenza virus vaccine, whole virus 02/28/01 Given Ambulat ory Pharmac y influenza virus vaccine, whole virus 0 2000 [id number] 16 Sanofi Pasteur (PMC) complet ed influenza virus vaccine, whole virus DoD influenza virus vaccine, whole virus 1999 [id number] 16 Unknown complet ed influenza virus vaccine, whole virus 03/23/00 Given Ambulat ory Pharmac y influenza virus vaccine, whole virus 0 1999 [id number] 16 Other (OTH) complet ed influenza virus vaccine, whole virus DoD yellow fever vaccine 1999 [id number] 37 sanofi pasteur complet ed yellow fever vaccine 04/28/99 Given Ambulat ory Pharmac y typhoid vaccine, parenteral 1999 [id number] 41 sanofi pasteur complet ed typhoid vaccine, parentera l 04/28/99 Given Ambulat ory Pharmac y yellow fever vaccine 0 1999 [id number] 37 Sanofi Pasteur ([facility]) complet ed yellow fever vaccine DoD typhoid vaccine, parenteral, other than acetone-kille d, dried 0 1999 [id number] 41 Sanofi Pasteur ([facility]) complet ed typhoid vaccine, parentera l, other than acetone-k illed, dried DoD hepatitis A adult vaccine 1998 [id number] 52 Merck & Company Inc complet ed hepatitis A adult vaccine 03/04/99 Given Ambulat ory Pharmac y hepatitis A vaccine, adult dosage 2 1998 [id number] 52 Merck (MSD) complet ed hepatitis A vaccine, adult dosage DoD influenza virus vaccine, whole virus 1998 [id number] 16 [facility] complet ed influenza virus vaccine, whole virus 01/28/99 Given Ambulat ory Pharmac y influenza virus vaccine, whole virus 0 1998 [id number] 16 [facility] complet ed influenza virus vaccine, whole virus DoD poliovirus vaccine, live, oral 1998 [id number] 02 [facility] polioviru s vaccine, live, oral 09/01/98 Given Ambulat ory Pharmac y hepatitis A adult vaccine 1998 [id number] 52 Merck & Company Inc complet ed hepatitis A adult vaccine 09/01/98 Given Ambulat ory Pharmac y trivalent poliovirus vaccine, live, oral 0 1998 [id number] 02 [facility] ([facility]) comple t ed trivalent polioviru s vaccine, live, oral DoD hepatitis A vaccine, adult dosage 1 1998 [id number] 52 Merck (MSD) complet ed hepatitis A vaccine, adult dosage DoD tuberculin purified protein derivative 1998 [id number] 96 [facility] complet ed tuberculi n purified protein derivativ e 08/25/98 Given Ambulat ory Pharmac y meningococcal polysaccharid e (MPSV4) 19985035 [id number] 32 [facility] complet ed meningoco ccal polysacch aride (MPSV4) 08/25/98 Given Ambulat ory Pharmac y influenza virus vaccine, whole virus 19981627 [id number] 16 [employer] complet ed influenza virus vaccine, whole virus 08/25/98 Given Ambulat ory Pharmac y tetanus-dipht h toxoids (Td) adult/adol 19988072 [id number] 09 [facility] tetanus-d iphth toxoids (Td) adult/ado l 08/25/98 Given Ambulat ory Pharmac y tetanus and diphtheria toxoids, adsorbed, preservative free, for adult use (2 Lf of tetanus toxoid and 2 Lf of diphtheria toxoid) 0 [id number] 09 [facility] ([facility]) complet ed tetanus and diphtheri a toxoids, adsorbed, preservat sidra free, for adult use (2 Lf of tetanus toxoid and 2 Lf of diphtheri a toxoid) DoD influenza virus vaccine, whole virus 0 [id number] [id number] 16 [employer] ([facility]) complet ed influenza virus vaccine, whole virus DoD meningococcal polysaccharid e vaccine (MPSV4) 0 19984922 [id number] 32 [place] (CON) complet ed meningoco ccal polysacch aride vaccine (MPSV4) DoD measles/mumps /rubella virus vaccine 1998 03 Unknown complet ed measles/m umps/rube lla virus vaccine 08/12/98 Given Ambulat ory Pharmac y measles, mumps and rubella virus vaccine 0 1998 03 Unknown (UNK) comple t ed measles, mumps and rubella virus vaccine DoD poliovirus vaccine, live, oral 1994 [id number] 02 [facility] complet ed polioviru s vaccine, live, oral 09/01/94 Given Ambulat ory Pharmac y trivalent poliovirus vaccine, live, oral 0 1994 [id number] 02 [facility] ([facility]) comple t ed trivalent polioviru s vaccine, live, oral [facility] Results Combined list of recent chemistry, hematology [...] Prevention' s HIV diagnostic algorithm. Refer to [facility] Lab Guide for additional information : [email or web address] x Testing performed by [facility] [email or web address] bola Sendouts Repository Sample Received ( 3 12:34 PM) 03/26 N [facility] Encounters Combined list of: 1) Encounters from Department of Veterans Affairs facilities going back up to thelast 18 months. 2) Encounters from the Department of Defense facilities going back up to 280 months. Location Location Details Encounter Type Encounter Number Reason For Visit Attending Provider ADM Date DC Date Status Disposition Source Theater Facility OUTPATIENT [id number] 02/01 Released w/o Limitations [facility] OUTPATIENT [id number] Theater Provider 12/13 Released w/o Limitations [facility] OUTPATIENT [id number] Theater Provider 12/16 Released w/o Limitations [facility] OUTPATIENT [id number] Theater Provider 01/21 Released w/o Limitations [facility] OUTPATIENT [id number] Theater Provider 02/03 Released w/o Limitations [place] [address](AFN G [address]FM) OUTPATIENT [id number] SAGAR DOMINGUEZ 03/23 Released w/o Limitations [facility] [place] [address](A FNG [address]FM) [place] [address](AFN G [address]FM) OUTPATIENT [id number] Notes Entered by: Graciela LOVE 03 Oct 2017 [id number] ------- ------- ------- ------- -- RACHEL BAJWA 10/03 Released w/o Limitations [facility] [place] [address](A FNG [address]FM) [id number] MDG Outpatient [id number] KARMEN ROBERTSJI 03/26 Discharge Disposition: Home or Self Care [id number] [facility] Procedures Combined list of: 1) Procedures from Department of Veterans Affairs facilities going back up to thelast 18 months, not all [place] non-surgical procedures are included; 2) All procedures from the Department of Defense facilities. Procedure Procedure Type Code Date Perfomer Comments Sourc e No data available for this section [facility]acy FITTING OF SPECTACLES, EXCEPT FOR APHAKIA; MONOFOCAL 08/13/2002 [facility] Social History Combined list of available smoking, tobacco, and other social history from Department of Defense and Veterans Affairs facilities. Social History Type Response Date Comment Sourc e This section is an empty social history section. [facility] Assessment and Plan Combined list of future care activities from Department of Defense and Veterans Affairs facilities (e.g., assessment and plan notes, appointments, orders, and referrals). Additional future care activities may be listed in the Plan of Care section. Result Assessment and Plan Date Source Assessment and Plan No data available for this section 10/07/2023 Ambulatory Pharmacy Functional Status Combined list of recent functional and cognitive assessments recorded at Department of Defense and Veterans Affairs ([place] Functional [place] Measurement (FIM) Scale: 1 = Total Assistance (Subject = 0% +), 2 = Maximal Assistance (Subject = 25% +), 3 = Moderate Assistance (Subject = 50% +), 4 = Minimal Assistance (Subject = 75% +), 5 = Supervision, 6 = Modified [place] (Device), 7 = Complete [place] (Timely, Safely). Assessment Date/Time Source Assessment Type Assessment Skill Assessment Score Assessment Details No data available for this section
--- OUTSIDE RECORDS SUMMARY | 2023-10-07 09:35 | XMS_ITS | Encounter Summary ---
Author Organization [place] Address [address] [place] [address] Care Team Providers Care Engineering Inspector Name Role Phone Ghanshyam Hassan Primary Care Provider Unavailable Ghanshyam Hassan Primary Care Provider Unavailable Allen Amaya MD Primary Care Provider Ghanshyam Hassan Primary Care Provider Unavailable Medardo Graf MD Primary Care Provider [phone] Noelle Khan MD Unavailable [phone] Umu Duke MD Unavailable [phone] Umu Duke MD Unavailable [phone] Reason for Visit * Reason Onset Date Comments Nurse Advice Line 04/23/2011 Encounter Details Date Type Department Care Team (Late st Contact Info) Description 04/23/2011 Telephone [facility]'s [place] [address] [place] [address] Allen Amaya MD [address] [place] [address] Nurse Advice Line Social History [...] Becky Yepez - 08/21/2011 6:41 AM CDT [place] [facility] Triage Call Report Patient Name: Lacey Nolasco Call Date & Time: 04/23/2011 9:08:38PM Patient PCP Name: Patient Address: [address] [place] [id number] Patient Date of : 1980 Age: 31 yr. Patient Gender: Female Machine Stacker Name: Kerrie Ponce Presenting Problem: I'm wondering [...] Influenza 04/04/2021 04/04/2021 04/11/2021 11:4 1 PM SH[employer] RANGE [employer] DEFENSE ARTILLERY documented as of this encounter Care Teams Engineering Inspector Relationship Specialty Start Date End Date Ghanshyam Hassan PCP - General 04/19/11 02/21/12 Ghanshyam Hassan PCP - General 02/22/12 02/22/12 Allen Amaya MD PCP - General paper bag maker 02/23/12 04/07/12 Ghanshyam Hassan PCP - General 04/08/12 11/14/18 Medardo Graf MD PCP - General Family Practice 11/15/18 Noelle Khan MD [facility] [address] [place] [address] Assigned Pulmonology Provider 02/04/20 11/09/21 Umu Duke MD [address] [place] [id number] paper bag maker 03/16/20 Umu Duke MD [address] [id number] Assigned OBGYN Provider 06/04/2002/01 documented as of this encounter
--- OUTSIDE RECORDS SUMMARY | 2023-10-07 09:35 | XMS_ITS | Encounter Summary ---
Author Organization [place] Address [address] [facility] [place] [address] Care Team Providers Care Supplemental Manager Name Role Phone Medardo Graf MD Primary Care Provider Noelle Khan MD Unavailable [phone] Umu Duke MD Unavailable [phone] Umu Duke MD Unavailable [phone] Encounter Details Date Type Department Care Team (Late st Contact Info) Description 07/06/2020 MyC Medical Advice [facility] Women's [place] [address]rd Floor,[address] [place] Professional Bldg [facility] [address] [place] [phone] Umu Duke MD [address] [place] [address] Social History Tobacco Use Types [...] COVID-19? 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 documented as of this encounter Plan of Treatment Not on file documented as of this encounter Visit Diagnoses Not on filedocumented in this encounter Additional Health Concerns Infection Onset Date Last Indicated Resolved Time Influenza 04/04/2021 04/04/2021 04/11/2021 11:4 1 PM SLEEVE PRESSER OPERATOR Assessment Noted Time PHQ-9 Depression Total Score: 2 06/01/19 21 1:03 PM SLEEVE PRESSER OPERATOR documented as of this encounter Care Teams Supplemental Manager Relationship Specialty Start Date End Date Medardo Graf MD PCP - General Family Practice 11/15/18 Noelle Khan MD [facility] [address] [place] [id number] Assigned Pulmonology Provider 02/04/20 11/09/21 Umu Duke MD [address] [place], [place] [address] vacation sales advisor 03/16/20 Umu Duke MD [address] [place], [place] [address] Assigned OBGYN Provider 06/04/2002/01 documented as of this encounter
--- OUTSIDE RECORDS SUMMARY | 2023-10-07 09:35 | XMS_ITS | Clinical Summary ---
Author Organization [email or web address] Address [place], [place] [address] Care Team Providers Care Business English Instructor Name Role Phone Medardo Graf MD Primary Care Provider [phone] Allergies Active Allergy Reactions Criticality Noted Date Comments Zolpidem Tartrate Insomnia 06/11/2011 blacks out Medications Medication Sig Dispensed Refills Start Date End Date Status liothyronine (CYTOMEL) 25 mcg tablet Take 25 mcg by mouth once daily. 07/08/2022 Active spironolactone (ALDACTONE) 50 mg tablet Take 50 mg by mouth two times daily. 07/19/2022 Active ketoconazole 2% topical (NIZORAL) cream Apply topically to affected area(s). 02/21/2022 Active acetaminophen (TYLENOL EXTRA STRGTH) 500 mg tabletIndications :Postoperative pain after spinal surgery Take 2 Tablets (1,000 mg) by mouth every 6 hours. Max acetaminophen dose: 4000mg in 24 hrs. 0 10/08/2022 Active gabapentin (NEURONTIN) 300 mg capsuleIndication s:Postoperative pain after spinal surgery Take 1 Capsule (300 mg) by mouth three times daily. 60 Capsule 10/08/2022 Active methocarbamoL (ROBAXIN) 750 mg tabletIndications :Postoperative pain after spinal surgery Take 1 Tablet (750 mg) by mouth every 6 hours if needed for Muscle Spasm. 30 Tablet 10/08/2022 Active oxyCODONE (ROXICODONE) 5 mg immediate release tabletIndications :Postoperative pain after spinal surgery Take 1-2 Tablets (5-10 mg) by mouth every 4 hours if needed for Pain (First choice for severe pain.). 20 Tablet 10/08/2022 Active sennosides-docusa te (SENOKOT S) (8.6-50 mg) tabletIndications :Constipation due to opioid therapy Take 1-4 Tablets by mouth 2 times daily if needed for Constipation. 30 Tablet 10/08/2022 Active Active Problems Problem Noted Date Diagnosed Date Cervical radiculopathy at C6 10/08/2022 Immunizations Name Administration Dates Next Due Influenza, [...] Health Maintenance Due Date Last Done Comments Tdap 1989 Depression screening for age 12+ 1990 HIV for age 15-65 1993 BMI (ht and wt on same day) for age 18+ 1996 Hepatitis C screening for ag e 18-79 1996 Tetanus booster 1998 COVID-19 vaccine series (2022- season) 2022 Colonoscopy through age 75 2023 Lipids for age 45-75 2023 Mammogram for age 45-75 2023 Influenza for age 9-49 12/14/2023 01/26/2011 Pap test for age 21-65 10/24/2025 , 10/24/2022 Pneumococcal series for age 6-64 Aged Out No longer eligible b ased on patient's age to complete this topic Medical Devices Implanted Type Area Hack Saw Operator Device Identifier Shelf Expiration Date Model / Serial / Lot Disc Sc [id number] Cerv [id number] - [id number] Implanted:Qty: 1 on 06/17/2011 at [facility] Spine SOFAMOR DANEK [id number] / / [id number] Natrelle Silicone-Filled Breast Implant Smooth Round Midrange Profile - [id number] Implanted:Qty: 1 on 02/28/2014 by Kar Nava MD at [facility] Right: Breast 05/14/2018 15-304 NATRELLE SILICONE-FI LLED BREAST IMPLANT SMOOTH ROUND MIDRANGE PROFILE / [id number] / [id number] Natrelle Silicone Breast Implant Smooth Round Midrange Profile - [id number] Implanted:Qty: 1 on 02/28/2014 by Kar Nava MD at [facility] Left: Breast 09/11/2018 15-265 NATRELLE SILICONE BREAST IMPLANT SMOOTH ROUND MIDRANGE PROFILE / [id number] / [id number] Disc Cerv 6x14mm Prestige Lp Titnm Ceramic - [id number] Implanted:Qty: 1 on 10/07/2022 by Ulises Medina MD at [facility] N/A: Cervical Vertebrae [employer] Spine/Ortho 03/17/2030 [id number] / / [id number] Procedures Procedure Name Priority Date/Time Associated Diagnosis Comments HPV THIN PREP Routine 10/24/2022 8:30 AM CDT from Last 3 Months or Most Recently Relevant to Health Maintenance Results * HPV HIGH RISK (10/24/2022 8:30 AM CDT) TYPE 16 Negative Negative 10/29/2022 11:44 AM CDT [facility] TYPE 18 Negative Negative 10/29/2022 11:44 AM CDT [facility] OTHER HIGH RISK TYPES Negative Negative 10/29/2022 11:44 AM CDT [facility] Other (Cervical) 10/24/2022 8:30 AM CDT 10/24/2022 6:23 PM CDT Narrative [facility] - 10/29/2022 11:44 AM CDT HPV types 16, 18, 31, 33, 35, 39, 45, 51, 52, 56, 58, 59, 66 and 68 DNA were undetectable or below the pre-set threshold. Methodology: Evan Jack 4800 HPV Test Caitlyn Dorado PA-C MICROBIOLOGY [facility] [address] [place] [address], from Last 3 Months or Most Recently Relevant to Health Maintenance Advance Directives * Full Code (Latest Code Status on File) Date Activated Date Inactivated Comments 10/07/2022 10:05 AM 10/08/2022 5:23 PM Question Answer Comments Code Status Discussion: Reviewed Preferences * Full Code Date Activated Date Inactivated Comments 02/28/2014 10:31 AM 02/28/2014 2:43 PM * Full Code Date Activated Date Inactivated Comments 06/17/2011 5:51 AM 06/18/2011 8:24 PM Care Teams Business English Instructor Relationship Specialty Start Date End Date Medardo Graf MD [address] [place] [address] PCP - General Family Practice 09/24/22
--- OUTSIDE RECORDS SUMMARY | 2023-10-07 09:35 | XMS_ITS | Encounter Summary ---
Author Organization [place] Address [address] [facility] [place] [address] Care Team Providers Care Income Tax Manager Name Role Phone Medardo Graf MD Primary Care Provider [phone] Noelle Khan MD Unavailable [phone] Umu Duke MD Unavailable [phone] Umu Duke MD Unavailable [phone] Encounter Details Date Type Department Care Team (Late st Contact Info) Description 07/14/2020 MyC Medical Advice [facility] Women's [place] [address] 3[address] [place] Professional Bldg [facility] [address] [place] [phone] Umu Duke MD [address] [place] [address] Social History Tobacco Use Types [...] Influenza 04/04/2021 04/04/2021 04/11/2021 11:4 1 PM RESIDENTIAL 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 COUNSELOR Assessment Noted Time PHQ-9 Depression Total Score: 2 06/01/19 21 1:03 PM RESIDENTIAL TREATMENT COUNSELOR documented as of this encounter Care Teams Income Tax Manager Relationship Specialty Start Date End Date Medardo Graf MD PCP - General Family Practice 11/15/18 Noelle Khan MD [facility] [address] [place], [place] [address] Assigned Pulmonology Provider 02/04/20 11/09/21 Umu Duke MD [address] [place], [place] [phone] senior network systems engineer 03/16/20 Umu Duke MD [address] [place], [place] [phone] Assigned OBGYN Provider 06/04/2002/01 documented as of this encounter
--- OUTSIDE RECORDS SUMMARY | 2023-10-07 09:35 | XMS_ITS | Encounter Summary ---
Author Organization [place] Address [address] [place] [address]. [place] [address] Care Team Providers Care Help Desk Representative Name Role Phone Medardo Graf MD Primary Care Provider [phone] Noelle Khan MD Unavailable [phone] Umu Duke MD Unavailable [phone] Umu Duke MD Unavailable [phone] Encounter Details Date Type Department Care [...] COVID-19? No / Unsure 02/28/2021 2:08 PM GAS CHARGER documented as of this encounter Plan of Treatment Not on file documented as of this encounter Visit Diagnoses Not on filedocumented in this encounter Additional Health Concerns Infection Onset Date Last Indicated Resolved Time Influenza 04/04/2021 04/04/2021 04/11/2021 11:4 1 PM GAS CHARGER Assessment Noted Time PHQ-9 Depression Total Score: 2 06/01/19 21 1:03 PM GAS CHARGER documented as of this encounter Care Teams Help Desk Representative Relationship Specialty Start Date End Date Medardo Graf MD PCP - General Family Practice 11/15/18 Noelle Khan MD [facility] [address] [place] [address] Assigned Pulmonology Provider 02/04/20 11/09/21 Umu Duke MD [address] [place], [place] [phone] band saw operator 03/16/20 Umu Duke MD [address] [place], [place] [phone] Assigned OBGYN Provider 06/04/2002/01 documented as of this encounter
== END 2023-09-19 09:17 | disposition home or self-care (01) ==
LOC: NFLDREF 10-07 09:32
PROVIDERS: PCP Family Medicine; Referring Provider Family Medicine; Visit Provider Family Medicine
DX: E03.9 Hypothyroidism, unspecified (principal); E66.9 Obesity, unspecified; R21 Rash and other nonspecific skin eruption; R73.9 Hyperglycemia, unspecified
CPT/HCPCS: 84443

== ENCOUNTER 2023-10-17 14:04 | Emergency (ER) | payer BC, SELFPAY ==
[2023-10-17 14:08] VITALS: BP 118/81; PULSE 103; RESP 20; TEMP 36.4; O2SAT 97; BMI 27.4
--- NOTE | 2023-10-17 14:35 | ED_ITS ---
HPI - General Adult General Chief complaint: Headache/Migraine Stated complaint: migrane Time Seen by Provider: 10/17/23 14:11 Source: patient Mode of arrival: ambulatory Limitations: no limitations History of Present Illness HPI narrative: 43-year-old female coming in today complaining of a migraine headache that started earlier this morning. She states that this does occur a few times per year. This headache is located across the entire right side of the head does not radiate. She complains of being light and sound sensitive. She states that she vomited earlier. She denies any dizziness or vertiginous symptoms. No slurred or altered speech. No focal neurologic deficits. You patient did go out last night to watch the [employer]. Nothing out of the ordinary. Related Data Home Medications ?Medication ?Instructions ?Recorded ?Confirmed benzonatate 100 mg capsule mg PO 05/25/23 05/25/23 doxycycline hyclate 100 mg capsule 100 mg PO BID 05/25/23 05/25/23 Previous Rx's ?Medication ?Instructions ?Recorded ketoconazole 2 % topical cream 1 applic topical BID #30 grams 03/11/23 spironolactone 50 mg tablet 50 mg PO BID #60 tabs 04/10/23 semaglutide (weight loss) 2.4 2.4 mg (0.75 mL) subcut QWEEK #3 mL 05/08/23 mg/0.75 mL subcutaneous pen injector (Marty) amoxicillin 875 mg-potassium 1 tab PO BID #20 tabs 05/25/23 clavulanate 125 mg tablet azithromycin 250 mg tablet See Rx Instructions PO .COMPLEX #6 05/25/23 tabs codeine 10 mg-guaifenesin 100 mg/5 10 ml PO Q4-6H PRN cough #240 mL 05/25/23 mL oral liquid codeine 10 mg-guaifenesin 200 mg/5 10 ml PO Q4-6H PRN cough #240 mL 05/25/23 mL oral liquid valacyclovir 1 gram tablet 1,000 mg PO Q12H PRN cold sores 08/14/23 (Valtrex) #20 tabs liothyronine 25 mcg tablet 25 mcg PO QDAY #90 tabs 09/12/23 (Cytomel) sumatriptan succinate 50 mg tablet 50 mg PO DIRECTED #9 tabs 10/17/23 Allergies Allergy/AdvReac Type Severity Reaction Status Date / Time zolpidem Allergy Mild Insomnia Verified 05/25/23 09:20 Review of Systems Status of ROS: Reports: 10 or more systems reviewed and unremarkable except as noted in History and below [facility] Medical History STI (sexually transmitted infection) ?A64 - Unspecified sexually transmitted disease (ICD-10) Surgical History History of tonsillectomy and adenoidectomy (1983) ?Z90.89 - Acquired absence of other organs (ICD-10) History of right breast biopsy (04/01/18) ?Z98.890 - Other specified postprocedural states (ICD-10) History of laparoscopy (04/23/11) ?Z98.890 - Other specified postprocedural states (ICD-10) History of endometrial ablation (2013) ?Z98.890 - Other specified postprocedural states (ICD-10) History of cervical spinal surgery (2011) ?Z98.890 - Other specified postprocedural states (ICD-10) History of breast augmentation ?Z98.82 - Breast implant status (ICD-10) Social History Smoking Status: Never smoker Do you use any of these nicotine containing products: None Second hand tobacco smoke exposure: No How often do you have a drink containing alcohol: 2-3 times a week How many standard drinks containing alcohol do you have on a typical day: 1 or 2 How often do you have six or more drinks on one occasion: Never AUDIT-C Alcohol total score: 3 Non-prescribed substance use: denies use service: Yes Exam Narrative: Exam Narrative: Well-nourished well-developed patient, very tearful. Alert and oriented. Answers questions appropriately. Thoughts are goal oriented and rational. No tangential or magical thinking noted. Speech is not slurred or pressured. HEENT: Normocephalic atraumatic. Pupils are equally round reactive to light. Extraocular muscles are intact. Conjunctivae are moist without any icterus noted. Moist mucous membranes. Posterior pharynx is normal. Neck is supple. Cardiovascular: Heart is regular rate and rhythm. Lungs: Clear to auscultation bilaterally no wheezes rhonchi or rales are appreciated. Abdomen: Soft and nontender nondistended with normal bowel sounds. Extremities: Bilateral lower extremities are without edema. Skin: Well perfused without any obvious rashes. Strength is 5/5 of the upper and lower extremities. Cranial nerves 3-12 are normal. There is no nystagmus either horizontally or vertically. Gait is no rmal. Const: Vital Signs, click to edit/add: Vital Signs - 24 hr 10/17/23 14:08 10/17/23 16:15 Temperature 97.6 F Pulse Rate [Pulse Oximeter] 103 H 101 H Respiratory Rate 20 20 Blood Pressure [Ri t Upper Arm] 118/81 116/77 Pulse Oximetry 97 98 Oxygen Delivery Me thod Room Air Room Air Course Course ED Course: IV is established and patient received 500 mL of normal saline, 30 mg of IV Toradol, 4 mg of IV Zofran, and 25 mg of IV Benadryl. Patient stated that she was not feeling significantly better after treatment and therefore this was followed up with subcutaneous Imitrex and Decadron. And this did help her pain. Vital Signs Vital signs: Initial Vital Signs Temperature 97.6 F 10/17/23 14:08 Temperature Source Temporal Artery Scan 10/17/23 14:08 Pulse Rate 103 H 10/17/23 14:08 Pulse Rhythm Regular 10/17/23 14:08 Respiratory Rate 20 10/17/23 14:08 Blood Pressure 118/81 10/17/23 14:08 Blood Pressure Mean 93 10/17/23 14:08 Blood Pressure Position Supine 10/17/23 14:08 Pulse Oximetry 97 10/17/23 14:08 Oxygen Delivery Method Room Air 10/17/23 14:08 Vital Signs Temperature 97.6 F 10/17/23 14:08 Pulse Rate 103 H 10/17/23 14:08 Respiratory Rate 20 10/17/23 14:08 Blood Pressure 118/81 10/17/23 14:08 Pulse Oximetry 97 10/17/23 14:08 Oxygen Delivery Method Room Air 10/17/23 14:08 Temperature 97.6 F 10/17/23 14:08 Pulse Rate 101 H 10/17/23 16:15 Respiratory Rate 20 10/17/23 16:15 Blood Pressure 116/77 10/17/23 16:15 Pulse Oximetry 98 10/17/23 16:15 Oxygen Delivery Method Room Air 10/17/23 16:15 Medications Administered Medications: Discontinued Medications Generic Name Dose Route Start Last Admin Trade Name Mariel PRN Reason Stop Dose Admin Dexamethasone 10 mg 10/17/23 15:28 10/17/23 15:50 Dexamethasone 4 Mg/Ml Vial IV 10/17/23 15:29 10 mg ONCE ONE Administration Diphenhydramine HCl 25 mg 10/17/23 14:20 10/17/23 14:49 Diphenhydramine 50 Mg/Ml Inj IVP 10/17/23 14:21 25 mg ONCE ONE Administration Sodium Chloride 500 mls @ 500 mls/hr 10/17/23 14:20 10/17/23 15:51 0.9 % Sodium Chloride 500 Ml IV 10/17/23 15:19 Infused .Q1H ONE Infusion Ketorolac Tromethamine 30 mg 10/17/23 14:20 10/17/23 14:48 Ketorolac 30 Mg/Ml Inj IVP 10/17/23 14:21 30 mg ONCE ONE Administration Ondansetron HCl 4 mg 10/17/23 14:20 10/17/23 14:49 Ondansetron 2 Mg/Ml Inj IVP 10/17/23 14:21 4 mg ONCE ONE Administration Sumatriptan Succinate 6 mg 10/17/23 15:28 10/17/23 15:50 Sumatriptan 6 Mg/0.5 Ml Inj SUBCUT 10/17/23 15:29 6 mg ONCE ONE Administration Medical Decision Making MDM Narrative Medical decision making narrative: Migraine headache, treated per above. Patient will be sent home with oral Imitrex to take p.r.n.. Discharge Plan Discharge Clinical Impression: Headache, migraine Patient Disposition: Home, Self-Care Condition: Improved Additional Instructions: Recommend resting for the remainder of the day, stay well hydrated. Okay to take Imitrex as prescribed/as needed. Recommend you follow-up with her primary care provider to discuss further management of headaches as needed. Prescriptions: New sumatriptan succinate 50 mg tablet 50 mg PO DIRECTED Qty: 9 0RF Rx Instructions: 50 mg orally; No Action Wegovy 2.4 mg/0.75 mL pen injector 2.4 mg subcut QWEEK Qty: 3 5RF spironolactone 50 mg tablet 50 mg PO BID Qty: 60 9RF benzonatate 100 mg capsule PO doxycycline hyclate 100 mg capsule 100 mg PO BID amoxicillin-pot clavulanate 875-125 mg tablet 1 tab PO BID Qty: 20 0RF azithromycin 250 mg tablet See Rx Instructions PO .COMPLEX Qty: 6 0RF Rx Instructions: For 250 mg dose pack: take 500 mg today (day 1), then 250 mg for 4 days (days 2-5) PO codeine-guaifenesin 10-200 mg/5 mL liquid 10 ml PO Q4-6H PRN (Reason: cough) Qty: 240 1RF codeine-guaifenesin 10-100 mg/5 mL liquid 10 ml PO Q4-6H PRN (Reason: cough) Qty: 240 1RF ketoconazole 2 % cream 1 applic topical BID Qty: 30 0RF valacyclovir [Valtrex] 1 gram tablet 1,000 mg PO Q12H PRN (Reason: cold sores) Qty: 20 1RF liothyronine [Cytomel] 25 mcg tablet 25 mcg PO QDAY Qty: 90 1RF Follow Up/Referrals: Medardo Graf MD [Primary Care Provider] - Stand Alone Forms: [employer] Info Instructions
--- OUTSIDE RECORDS SUMMARY | 2023-10-17 14:36 | XMS_ITS | Continuity of Care Document ---
Author Name [facility] Organization [facility] Care Team Providers Care Template Clerk Name Role Phone [facility] Unavailable Unavailable Problems Combined list of problems from Department of Defense and Veterans Affairs facilities. It does not include entries that were removed or entered in error. 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 It does not include entries that were removed or entered in error. Substance Category Reaction Severity Reaction type Status Date Reported Comments Source AMBIEN (ZOLPIDEM TARTRATE) Drug allergy (disorder) Unknown active 9 [place] [address] zolpidem Propensity to adverse reactions to substance Unknown Active 9 [facility] Immunizations Combined list of available immunizations from the Department of Defense and Veterans Affairs facilities. 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 Code Drug Hook And Eye Attacher Status Comments Source typhoid Vi capsular polysaccharid e vac 2021 [id number] sanofi pasteur complet ed typhoid Vi capsular polysacch aride vac 04/21/21 Given Ambulat ory Pharmac y influenza, seasonal, injectable 2020 [id number] 141 complet ed influenza , seasonal, injectabl e 01/22/21 Given Ambulat ory Pharmac y COVID Vaccine Moderna 2020 [id number] complet ed COVID Vaccine Moderna 06/01/20 Given Ambulat ory Pharmac y COVID Vaccine Moderna 2020 [id number] 207 complet ed COVID Vaccine Moderna 05/07/20 Given Ambulat ory Pharmac y meningococcal A,C,Y,W-135 (MCV4P) 2019 [id number] 114 sanofi pasteur complet ed meningoco ccal A,C,Y,W-1 35 (MCV4P) 03/26/20 Given Ambulat ory Pharmac y tetanus-dipht h toxoids (Td) adult/adol 2019 [id number] 09 sanofi pasteur complet ed tetanus-d iphth toxoids (Td) adult/ado l 03/26/20 Given Ambulat ory Pharmac y influenza, seasonal, injectable 2019 [id number] [employer] complet ed influenza , seasonal, injectabl e 12/27/19 Given Ambulat ory Pharmac y typhoid Vi capsular polysaccharid e vac 2018 [id number] 101 sanofi pasteur complet ed typhoid Vi capsular polysacch aride vac 03/27/19 Given Ambulat ory Pharmac y typhoid Vi capsular polysaccharid e vaccine 10 2018 [id number] 101 Sanofi Pasteur ([facility]) complet ed typhoid Vi capsular polysacch aride vaccine DoD influenza, injectable, quadrivalent 2018 [id number] 158 sanofi pasteur complet ed influenza , injectabl e, quadrival ent 01/01/19 Given Ambulat ory Pharmac y influenza, injectable, quadrivalent, contains preservative 1 2018 [id number] 158 Sanofi Pasteur ([facility]) complet ed influenza , injectabl e, quadrival ent, contains preservat sidra DoD influenza, injectable, quadrivalent 2017 [id number] 158 sanofi pasteur complet ed influenza , injectabl e, quadrival ent 12/20/17 Given Ambulat ory Pharmac y influenza, injectable, quadrivalent, contains preservative 1 2017 [id number] 158 Sanofi Pasteur ([facility]) complet ed influenza , injectabl e, quadrival ent, contains preservat sidra DoD influenza, injectable, quadrivalent 2016 [id number] 158 GlaxoSmithKli wy complet ed influenza , injectabl e, quadrival ent 03/23/17 Given Ambulat ory Pharmac y typhoid Vi capsular polysaccharid e vac 2016 [id number] 101 sanofi pasteur complet ed typhoid Vi capsular polysacch aride vac 03/23/17 Given Ambulat ory Pharmac y typhoid Vi capsular polysaccharid e vaccine 9 2016 [id number] 101 Sanofi Pasteur ([facility]MC) complet ed typhoid Vi capsular polysacch aride vaccine DoD influenza, injectable, quadrivalent, contains preservative 19 2016 [id number] 158 [facility] (SKB) complet ed influenza , injectabl e, quadrival ent, contains preservat sidra DoD anthrax vaccine 2016 [id number] 24 [employer] complet ed anthrax vaccine 09/01/16 Given Ambulat ory Pharmac y anthrax vaccine 6 2016 [id number] 24 [employer] [place] (MIP) complet ed anthrax vaccine DoD influenza, injectable, quadrivalent- pf 2015 [id number] 150 GlaxoSmithKli ne complet ed influenza , injectabl e, quadrival ent-pf 01/21/16 Given Ambulat ory Pharmac y Influenza, injectable, quadrivalent, preservative free 1 2015 [id number] 150 [facility] (SKB) complet ed Influenza , injectabl e, quadrival ent, preservat sidra free DoD meningococcal A,C,Y,W-135 (MCV4P) 2014 [id number] 114 sanofi pasteur complet ed meningoco ccal A,C,Y,W-1 35 (MCV4P) 03/25/15 Given Ambulat ory Pharmac y meningococcal polysaccharid e (groups A, C, Y and W-135) diphtheria toxoid conjugate vaccine (MCV4P) 3 2014 [id number] 114 Sanofi Pasteur (PMC) complet ed meningoco ccal polysacch aride (groups A, C, Y and W-135) diphtheri a toxoid conjugate vaccine (MCV4P) DoD influenza, seasonal, injectable-pf 2014 [id number] 140 [employer]SL [employer] complet ed influenza , seasonal, injectabl e-pf 01/01/15 Given Ambulat ory Pharmac y typhoid Vi capsular polysaccharid e vac 2014 [id number] 101 sanofi pasteur complet ed typhoid Vi capsular polysacch aride vac 01/01/15 Given Ambulat ory Pharmac y typhoid Vi capsular polysaccharid e vaccine 8 2014 [id number] 101 Sanofi Pasteur (PMC) complet ed typhoid Vi capsular polysacch aride vaccine DoD Influenza, seasonal, injectable, preservative free 17 2014 [id number] 140 [facility] [employer]. (CSL) complet ed Influenza , seasonal, injectabl e, preservat sidra free DoD influenza, seasonal, injectable-pf 2013 [id number] 140 Unknown complet ed influenza , seasonal, injectabl e-pf 01/31/14 Given Ambulat ory Pharmac y Influenza, seasonal, injectable, preservative free 1 2013 140 Unknown (UNK) comple t ed Influenza , seasonal, injectabl e, preservat sidra free DoD anthrax vaccine 2013 [id number] 24 [employer] complet ed anthrax vaccine 01/01/14 Given Ambulat ory Pharmac y anthrax vaccine 5 2013 [id number] 24 [employer] [place] (MIP) complet ed anthrax vaccine DoD anthrax vaccine 2013 [id number] 24 [employer] complet ed anthrax vaccine 06/26/13 Given Ambulat ory Pharmac y anthrax vaccine 4 2013 [id number] 24 [employer] [place] (MIP) complet ed anthrax vaccine DoD measles/mumps /rubella virus vaccine 2013 [id number] 03 [employer] complet ed measles/m umps/rube lla virus vaccine 05/08/13 Given Ambulat ory Pharmac y measles, mumps and rubella virus vaccine 2 2013 [id number] 03 Merck (MSD) complet ed measles, mumps and rubella virus vaccine DoD influenza, seasonal, injectable 2012 TRANSCR IBED 141 complet ed influenza , seasonal, injectabl e 01/15/13 Given Ambulat ory Pharmac y Influenza, seasonal, injectable 1 2012 141 Transcribed (TRS) complet ed Influenza , seasonal, injectabl e DoD yellow fever vaccine 2012 [id number] 37 sanofi pasteur complet ed yellow fever vaccine 12/24/12 Given Ambulat ory Pharmac y typhoid Vi capsular polysaccharid e vac 2012 J1134-9 101 sanofi pasteur complet ed typhoid Vi capsular polysacch aride vac 12/24/12 Given Ambulat ory Pharmac y yellow fever vaccine 1 2012 [id number] 37 Sanofi Pasteur (PMC) complet ed yellow fever vaccine DoD typhoid Vi capsular polysaccharid e vaccine 1 2012 X6462-4 101 Sanofi Pasteur (PMC) complet ed typhoid Vi capsular polysacch aride vaccine DoD influenza, seasonal, injectable-pf 2011 [id number] 140 [employer] complet ed influenza , seasonal, injectabl e-pf 01/26/12 Given Ambulat ory Pharmac y Influenza, seasonal, injectable, preservative free 1 2011 [id number] 140 CS [employer], [employer]. (CS) complet ed Influenza , seasonal, injectabl e, preservat sidra free DoD influenza, seasonal, injectable 2010 [id number] 141 sanofi pasteur complet ed influenza , seasonal, injectabl e 03/23/11 Given Ambulat ory Pharmac y Influenza, seasonal, injectable 1 2010 [id number] 141 Sanofi Pasteur (PMC) complet ed Influenza , seasonal, injectabl e DoD typhoid Vi capsular polysaccharid e vac 2009 J0068-9 101 sanofi pasteur complet ed typhoid Vi capsular polysacch aride vac 03/23/10 Given Ambulat ory Pharmac y typhoid Vi capsular polysaccharid e vaccine 1 2009 [id number] 101 Sanofi Pasteur (PMC) complet ed typhoid Vi capsular polysacch aride vaccine DoD meningococcal A,C,Y,W-135 (MCV4P) 2009 [id number] 114 sanofi pasteur complet ed meningoco ccal A,C,Y,W-1 35 (MCV4P) 03/03/10 Given Ambulat ory Pharmac y tuberculin purified protein derivative 2009 [id number] 96 sanofi pasteur complet ed tuberculi n purified protein derivativ e 03/03/10 Given Ambulat ory Pharmac y tetanus, diphtheria, acellular pertu is 2009 [id number] 115 sanofi pasteur complet ed tetanus, diphtheri a, acellular pertussis 03/03/10 Given Ambulat ory Pharmac y influenza virus vaccine,split 2009 [id number] 15 sanofi pasteur complet ed influenza virus vaccine,s plit 03/03/10 Given Ambulat ory Pharmac y influenza virus vaccine, split virus (incl. purified surface antigen)-reti red CODE 1 2009 [id number] 15 Sanofi Pasteur ([facility]) complet ed influenza virus vaccine, split virus (incl. purified surface antigen)- retired CODE DoD meningococcal polysaccharid e (groups A, C, Y and W-135) diphtheria toxoid conjugate vaccine (MCV4P) 1 2009 [id number] 114 Sanofi Pasteur ([facility]) complet ed meningoco ccal polysacch aride (groups A, C, Y and W-135) diphtheri a toxoid conjugate vaccine (MCV4P) DoD tetanus toxoid, reduced diphtheria toxoid, and acellular pertu is vaccine, adsorbed 1 2009 [id number] 115 Sanofi Pasteur ([facility]) complet ed tetanus toxoid, reduced diphtheri a toxoid, and acellular pertussis vaccine, adsorbed DoD anthrax vaccine 2009 [id number] 24 [employer] complet ed anthrax vaccine 07/29/09 Given Ambulat ory Pharmac y anthrax vaccine 3 2009 [id number] 24 [employer] [place] ([place]) complet ed anthrax vaccine DoD influenza virus vaccine, live 2008 [id number] 111 [employer] comple t ed influenza virus vaccine, live 03/04/09 Given Ambulat ory Pharmac y influenza virus vaccine, live, attenuated, for intranasal use 1 2008 [id number] 111 [employer] (MED) complet ed influenza virus vaccine, live, attenuate d, for intranasa l use DoD Novel influenza-H1N 1-09, injectable 2008 [id number] 127 Novartis Pharm[employer]ica ls complet ed Novel influenza -D4T6-16, injectabl e 01/21/09 Given Ambulat ory Pharmac y Novel influenza-H1N 1-09, injectable 1 2008 [id number] 127 Novartis Pharmaceutica l [place]. (NOV) complet ed Novel influenza -L9D5-41, injectabl e DoD hepatitis B adult vaccine 2008 [id number] 43 GlaxoSmithKli ne complet ed hepatitis B adult vaccine 10/02/08 Given Ambulat ory Pharmac y tetanus, diphtheria, acellular pertu is 2008 [id number] 115 sanofi pasteur complet ed tetanus, diphtheri a, acellular pertussis 10/02/08 Given Ambulat ory Pharmac y hepatitis B vaccine, adult dosage 3 2008 [id number] 43 [employer] (SKB) complet ed hepatitis B vaccine, adult dosage DoD tetanus toxoid, reduced diphtheria toxoid, and acellular pertu is vaccine, adsorbed 1 2008 [id number] 115 Sanofi Pasteur ([facility]) complet ed tetanus toxoid, reduced diphtheri a toxoid, and acellular pertussis vaccine, adsorbed DoD anthrax vaccine 2007 [id number] 24 [employer] complet ed anthrax vaccine 03/03/08 Given Ambulat ory Pharmac y anthrax vaccine 2 2007 [id number] 24 [employer] [place] ([place]) complet ed anthrax vaccine DoD hepatitis B [...] Ambulat ory Pharmac y anthrax vaccine 2007 [id number] 24 [employer] complet ed anthrax vaccine 02/06/08 Given Ambulat ory Pharmac y anthrax vaccine 1 2007 [id number] 24 [employer] [place] ([place]) complet ed anthrax vaccine DoD typhoid vaccine, parenteral, other than acetone-kille d, dried 0 2007 [id number] 41 Sanofi Pasteur ([facility]) complet ed typhoid vaccine, parentera l, other than acetone-k illed, dried DoD influenza virus vaccine, live 2007 [id number] 111 [employer] comple t ed influenza virus vaccine, [...] live, attenuated, for intranasal use 1 2007 [id number] 111 [employer], [employer]. (MED) complet ed influenza virus vaccine, live, attenuate d, for intranasa l use DoD influenza virus vaccine, live 2006 [id number] 111 [employer] comple t ed influenza virus vaccine, live 03/28/07 Given Ambulat ory Pharmac y influenza virus vaccine, live, attenuated, for intranasal use 1 2006 [id number] 111 [employer], [employer]. (MED) complet ed influenza virus vaccine, live, attenuate d, for intranasa l use DoD influenza virus vaccine,split 2005 [id number] 15 sanofi pasteur complet ed influenza virus vaccine,s plit 03/23/06 Given Ambulat ory Pharmac y influenza virus vaccine, split virus (incl. purified surface antigen)-reti red CODE 1 2005 [id number] 15 Sanofi Pasteur (PMC) complet ed influenza virus vaccine, split virus (incl. purified surface antigen)- retired CODE DoD typhoid vaccine, parenteral 2005 [id number] 41 sanofi pasteur complet ed typhoid vaccine, parentera l 01/26/06 Given Ambulat ory Pharmac y varicella virus vaccine 0 2005 21 () Not Given varicella virus vaccine DoD typhoid vaccine, parenteral, other than acetone-kille d, dried 1 2005 N1546-5 41 Sanofi Pasteur (PMC) complet ed typhoid vaccine, parentera l, other than acetone-k illed, dried DoD influenza virus vaccine,split 2004 [id number] 15 sanofi pasteur complet ed influenza virus vaccine,s plit 03/02/05 Given Ambulat ory Pharmac y influenza virus vaccine, split virus (incl. purified surface antigen)-reti red CODE 1 2004 [id number] 15 Sanofi Pasteur (PMC) complet ed influenza [...] DoD influenza virus vaccine, whole virus 2002 [id number] 16 sanofi pasteur complet ed influenza virus vaccine, whole virus 02/16/03 Given Ambulat ory Pharmac y influenza virus vaccine, whole virus 0 2002 [id number] 16 Sanofi Pasteur (PMC) complet ed influenza virus vaccine, whole virus DoD tuberculin purified protein derivative 2001 [id number] 96 sanofi pasteur complet ed tuberculi n purified protein derivativ e 03/27/02 Given Ambulat ory Pharmac y influenza virus vaccine, whole virus 2001 [id number] 16 sanofi pasteur complet ed influenza virus vaccine, whole virus 03/27/02 Given Ambulat ory Pharmac y influenza virus vaccine, whole virus 0 2001 [id number] 16 Sanofi Pasteur (PMC) complet ed influenza virus vaccine, whole virus DoD typhoid Vi capsular polysaccharid e vac 2001 [id number] 101 sanofi pasteur complet ed typhoid Vi capsular polysacch aride vac 05/02/01 Given Ambulat ory Pharmac y typhoid Vi capsular polysaccharid e vaccine 0 2001 [id number] 101 Sanofi Pasteur (PMC) complet ed typhoid Vi capsular polysacch aride vaccine DoD influenza virus vaccine, whole virus 2000 [id number] 16 sanofi pasteur complet ed influenza virus vaccine, whole virus 02/28/01 Given Ambulat ory Pharmac y influenza virus vaccine, whole virus 0 2000 [id number] 16 Sanofi Pasteur (PMC) complet ed influenza virus vaccine, whole virus DoD influenza virus vaccine, whole virus 1999 [id number] 16 Unknown complet ed influenza virus vaccine, whole virus 03/23/00 Given Ambulat ory Pharmac y influenza virus vaccine, whole virus 0 1999 [id number] 16 Other (OTH) complet ed influenza virus vaccine, whole virus DoD yellow fever vaccine 1999 [id number] 37 sanofi pasteur complet ed yellow fever vaccine 04/28/99 Given Ambulat ory Pharmac y typhoid vaccine, parenteral 1999 [id number] 41 sanofi pasteur complet ed typhoid vaccine, parentera l 04/28/99 Given Ambulat ory Pharmac y yellow fever vaccine 0 1999 [id number] 37 Sanofi Pasteur ([facility]) complet ed yellow fever vaccine DoD typhoid vaccine, parenteral, other than acetone-kille d, dried 0 1999 [id number] 41 Sanofi Pasteur ([facility]) complet ed typhoid vaccine, parentera l, other than acetone-k illed, dried DoD hepatitis A adult vaccine 1998 [id number] 52 [employer]ck & [employer] Inc complet ed hepatitis A adult vaccine 03/04/99 Given Ambulat ory Pharmac y hepatitis A vaccine, adult dosage 2 1998 [id number] 52 Merck (MSD) complet ed hepatitis A vaccine, adult dosage DoD influenza virus vaccine, whole virus 1998 [id number] 16 [facility] complet ed influenza virus vaccine, whole virus 01/28/99 Given Ambulat ory Pharmac y influenza virus vaccine, whole virus 0 1998 [id number] 16 [facility] ([facility]) complet ed influenza virus vaccine, whole virus DoD poliovirus vaccine, live, oral 1998 [id number] 02 [facility] polioviru s vaccine, live, oral 09/01/98 Given Ambulat ory Pharmac y hepatitis A adult vaccine 1998 [id number] 52 Merck & Company Inc complet ed hepatitis A adult vaccine 09/01/98 Given Ambulat ory Pharmac y trivalent poliovirus vaccine, live, oral 0 1998 [id number] 02 [facility] ([facility]) comple t ed trivalent polioviru s vaccine, live, oral DoD hepatitis A vaccine, adult dosage 1 1998 [id number] 52 Merck (MSD) complet ed hepatitis A vaccine, adult dosage DoD tuberculin purified protein derivative 1998 [id number] 96 [facility] complet ed tuberculi n purified protein derivativ e 08/25/98 Given Ambulat ory Pharmac y meningococcal polysaccharid e (MPSV4) [id number] 32 [facility] complet ed meningoco ccal polysacch aride (MPSV4) 08/25/98 Given Ambulat ory Pharmac y influenza virus vaccine, whole virus [id number] 16 [employer] complet ed influenza virus vaccine, whole virus 08/25/98 Given Ambulat ory Pharmac y tetanus-dipht h toxoids (Td) adult/adol 19983190 [id number] [facility] tetanus-d iphth toxoids (Td) adult/ado l 08/25/98 Given Ambulat ory Pharmac y tetanus and diphtheria toxoids, adsorbed, preservative free, for adult use (2 Lf of tetanus toxoid and 2 Lf of diphtheria toxoid) 0 [id number] 09 [facility] (CON) complet ed tetanus and diphtheri a toxoids, adsorbed, preservat sidra free, for adult use (2 Lf of tetanus toxoid and 2 Lf of diphtheri a toxoid) DoD influenza virus vaccine, whole virus 0 19987407 [id number] 16 [employer] ([place]) complet ed influenza virus vaccine, whole virus DoD meningococcal polysaccharid e vaccine (MPSV4) 0 19980276 [id number] 32 [place] (CON) complet ed meningoco ccal polysacch aride vaccine (MPSV4) DoD measles/mumps /rubella virus vaccine 1998 03 Unknown complet ed measles/m umps/rube lla virus vaccine 08/12/98 Given Ambulat ory Pharmac y measles, mumps and rubella virus vaccine 0 1998 03 Unknown (UNK) comple t ed measles, mumps and rubella virus vaccine DoD poliovirus vaccine, live, oral 1994 [id number] 02 [employer] [facility] complet ed polioviru s vaccine, live, oral 09/01/94 Given Ambulat ory Pharmac y trivalent poliovirus vaccine, live, oral 0 1994 [id number] 02 [facility] ([facility]) comple t ed trivalent polioviru s vaccine, live, oral [facility] Results Combined list of recent chemistry, [...] Prevention' s HIV diagnostic algorithm. Refer to [facility] Lab Guide for additional information : [email or web address]/ [email or web address] x Testing performed by [facility] [employer] bola Sendouts Repository Sample Received ( 3 [...] Date Status Disposition Source Theater Facility OUTPATIENT [id number] 02/01 Released w/o Limitations [facility] OUTPATIENT [id number] Theater Provider 12/13 Released w/o Limitations [facility] OUTPATIENT [id number] Theater Provider 12/16 Released w/o Limitations [facility] OUTPATIENT [id number] Theater Provider 01/21 Released w/o Limitations [facility] OUTPATIENT [id number] Theater Provider 02/03 Released w/o [place]itations [place] [address](AFN G [address]FM) OUTPATIENT [id number] SAGAR DOMINGUEZ 03/23 Released w/o Limitations [facility] [place] [address](A FNG [address]FM) [place] [address](AFN G [address] Sq[address]FM) OUTPATIENT [id number] Notes Entered by: Graciela LOVE 03 Oct 2017 0906 ------- ------- ------- ------- -- RACHEL BAJWA 10/03 Released w/o Limitations [facility] [place] [address](A FNG [address]FM) [id number] MDG Outpatient [id number] KARMEN ROBERTSJI 03/26 Discharge Disposition: Home or Self Care [id number] [facility]G Procedures Combined list of: 1) Procedures from Department of Veterans Affairs facilities going back up to thelast 18 months, not all [place] non-surgical procedures are included; 2) All procedures from the Department of Defense facilities. Procedure Procedure Type Code Date Perfomer Comments Sourc e No data available for this section Ambulato ry Pharmacy FITTING OF SPECTACLES, EXCEPT FOR APHAKIA; MONOFOCAL 08/13/2002 [facility] Social History Combined list of available smoking, tobacco, and other social history from Department of Defense and Veterans Affairs facilities. Social History Type Response Date Comment Sourc e This section is an empty social history section. [facility] Assessment and Plan Combined list of future care activities from Department of Defense and Veterans Affairs facilities (e.g., assessment and plan notes, appointments, orders, and referrals). Additional future care activities may be listed in the Plan of Care section. Result Assessment and Plan Date Source Assessment and Plan No data available for this section 10/17/2023 Ambulatory Pharmacy Functional Status Combined list of recent functional and cognitive assessments recorded at Department of Defense and [facility] [place] Functional [place] Measurement (FIM) Scale: 1 = Total Assistance (Subject = 0% +), 2 = Maximal Assistance (Subject = 25% +), 3 = Moderate Assistance (Subject = 50% +), 4 = Minimal Assistance (Subject = 75% +), 5 = Supervision, 6 = Modified [place] (Device), 7 = Complete [place] (Timely, Safely). Assessment Date/Time Source Assessment Type Assessment Skill Assessment Score Assessment Details No data available for this section
--- OUTSIDE RECORDS SUMMARY | 2023-10-17 14:36 | XMS_ITS | Continuity of Care Document ---
Author Organization [facility] Address [address] [place] [address] Phone Care Team Providers Care Range Conservationist Name Role Phone Ben Garrison Unavailable Unavailab [...] Copied on Encounter [facility], [address], [place], [place], [id number], [place] tel:[phone] [facility] No Information 3 Korey Cedilloolas. [facility], [address], [address], [place], [address], [place]. tel:[phone] Office/Outpa tient Visit,Est, Mod [facility], [address], [place], [place], [address], [place] tel:[phone] [facility] - [facility] Encounter for other specified surgical aftercare 3 Adam Montgomery. [facility], [address], [place], [place], [address] , [place]. tel:[phone] Referring Provider: Ulises Medina, [facility] [address], [place], [address] . tel:[phone] [facility], [address], [place], [place], [address], [place] tel:[phone] [facility] - [facility] Encounter for other specified surgical aftercare 3 Artur Chong. [facility], [address], [place], [place], [address] , [place]. [phone] Referring Provider: Ulises Medina, [facility] [address], [place], [address] . tel:[phone] [facility], [address], [place], [place], [address], [place] tel:[phone] [facility] No Information 3 Artur Quispe [facility], [address], [place], [place], [address] , [place]. tel:[phone] Referring Provider: Ulises Medina, [facility] [address], [place], [address] . tel:[phone] [facility], [address], [place], [place], [address], [place] tel:[phone] [facility] No Information 3 Adam Montgomery. [facility], [address], [place], [place], [address] , [place]. tel:[phone] Referring Provider: Ulises Medina, [facility] [address], [place], [address] . tel:[phone] Pre Op Office/Outpa tient Visit, [facility], [address], [place], [place], [address], [place] tel:[phone] [facility] - [facility] Radiculopathy, cervical regionCervical disc disorder with myelopathy, cervicothoraci c regionWeakness 3 Adam Montgomery. [facility], [address], [place], [place], [address] , [place]. [phone] Referring Provider: Ulises Medina, [facility] [address], [place], [address] . tel:[phone] Office/Outpa tient Visit,Est, Mod [facility], [address], [place], [place], [address], [place] tel:[phone] [facility] - [facility] Radiculopathy, cervical regionCervical disc disorder with myelopathy, cervicothoraci c regionWeakness 3 Ed Tucker. [facility], [address], [place], [address], [place]. [phone] Referring Provider: Ulises Medina, [facility] [address], [place], [address] . tel:[phone] Office/Outpa tient Visit,New, Mod [facility], [address], [place], [place], [address], [place] tel:[phone] [facility] - [facility] Radiculopathy, cervical regionEncounte r for follow-up examination after completed treatment for conditions other than malignant neoplasm 3 Edvivian Tucker. [facility], [address], [place], [address], [place]. tel:[phone] Referring Provider: Ulises Medina, [facility] [address], [place], [address] . tel:[phone] Office/Outpa tient Visit,New, Mod [facility], [address], [place], [place], [address], [place] tel:[phone] [facility] Arthrodesis status 8 Artur Chong. [facility], [address], [place], [place], [address] , [place]. tel:[phone] Referring Provider: Ulises Medina, [facility] [address], [place], [address] . tel:[phone] Office/Outpa tient Visit,Est, Mod Z [facility], [address], [place], [address], [place] tel:[phone] [facility] No Information 4 Artur Chong. [facility], [address], [place], [place], [address] , [place]. tel:[phone] Referring Provider: Ulises Medina, [facility] [address], [place], [address] . tel:[phone] Z [facility], [address], [place], [address], [place] tel:[phone] [facility] - [facility] BRACHIAL NEURITIS NOSARTHRODESIS STATUS 4 Adam Montgomery. [facility], [address], [place], [place], [address] , [place]. tel: [phone] [facility], [address], [place], [address], [place] tel:[phone] [facility] - [facility] No Information 2 Adam Montgomery. [facility], [address], [place], [place], [address] , [place]. tel: [phone] Referring Provider: Ulises Medina, [facility] [address], [place], [address] . tel:[phone] Z [facility], [address], [place], [address], [place] tel:[phone] [facility] No Information Jun-2 2 Adam Montgomery. [facility], [address], [place], [place], [address] , [place]. tel: [phone] Referring Provider: Ulises Medina, [facility] [address], [place], [address] . tel:[phone] Z [facility], [address], [place], [address], [place] tel:[phone] [facility] No Information Jun- 2 Artur Chong. [facility], [address], [place], [place], [address] , [place]. tel: [phone] Referring Provider: Primary Care Doctor No. Z [facility], [address], [place], [address], [place] tel:[phone] [facility] Headache Mar-0 2 Artur Chong. [facility], [address], [place], [place], [address] , [place]. tel:[phone] Referring Provider: Ulises Medina, [facility] [address], [place], [address] . tel:[phone] Z [facility], [address], [place], [address], [place] tel:[phone] [facility] No Information Jun-0 2 Adam Montgomery. [facility], [address], [place], [place], [address] , [place]. tel:[phone] Referring Provider: Ulises Medina, [facility] [address], [place], [address] . tel:[phone] Z [facility], [address], [place], [address], [place] tel:[phone] [facility] No Information Jun-0 2 Adam Montgomery. [facility], [address], [place], [place], [address] , [place]. tel:[phone] Office/Outpa tient Visit,Est, Mod Z [facility], [address], [place], [address], [place] tel:[phone] [facility] No Information 2 Adam Montgomery. [facility], [address], [place], [place], [address] , [place]. tel:[phone] Referring Provider: Ulises Medina, [facility] [address], [place], [address] . tel:[phone] Office/outpa tient visit,new, mod Z [facility], [address], [place], [address], [place] tel:[phone] [facility] No Information 201 1 Adam Montgomery. [facility], [address], [place], [place], [address] , [place]. tel:[phone] Referring Provider: Ulises Medina, [facility] [address], [place], [address] . tel:[phone] Family History Family Member Type Diagnosis Age At Onset Father Problem (finding) coronary arterioscleros is Father Problem (finding) raised blood lipids Mother Problem (finding) raised blood lipids Payers Payer name Insurance type Covered constitution party ID Mohamud aramblua(s) [employer] [id number] Social History Type Description Quantity Date Captured [...]
--- OUTSIDE RECORDS SUMMARY | 2023-10-17 14:37 | XMS_ITS | Clinical Summary ---
[facility] Organization [facility] Address [address] [address] Care Team Providers Care Gusset Maker Name Role Phone Needs Pcp, Assignment Primary Care Provider [phone] Source Comments You are receiving this document as you are listed as the primary care provider,follow-up provider, or the patient has been referred to you for consultation.This is in compliance with the Medicare and[facility] EHR Incentive Program,which states Providers who transition their patient to another setting of careor provider of care or refers their patient to another provider of care shouldprovide summary care record for each transition of care or referral. [place] Allergies Active Allergy Reactions Criticality Noted Date [...] Overview: Added automatically from request for surgery [id number] H/O breast biopsy 02/29/2020 Hypothyroid 02/29/2020 History [...] Free (3+yrs) 01/26/2011 Influenza IIV4 (Quadrivalent) 0.5mL (40241) 07/2012 Td 04/12/2004 Family History Medical History [...] DT Respiratory Rate 16 04/28/2020 3:39 PM UTILITY REPAIRER Oxygen Saturation 100% 04/28/2020 3:39 PM UTILITY REPAIRER Inhaled Oxygen Concentration - - Weight 83.9 [...] 2023 021, 12/27/2019, 01/01/2019, Additional history exists Mammogram 06/06/2024 06/06/2023, 07/2 04/2020, 06/04/2019 Cervical Cancer Screening 02/28/20252019, 06/09/2015, 09/23/2011, Additional [...] Procedure Name Priority Date/Time Associated Diagnosis Comments MM MAMMOGRAM SCREENING BILAT W IMPLANTS W 3D SOLITARIO W CAD Routine 06/06/2023 1:38 PM UTILITY REPAIRER PAP TEST Routine 02/29/2020 4:22 PM UTILITY REPAIRER Encounter for gynecological examination without abnormal finding Screening for malignant neoplasm of cervix CHOLESTEROL, TOTAL AND HDL Routine 02/29/2020 4:12 PM UTILITY REPAIRER Lipid screening COLONOSCOPY Routine 09/07/2013 8:01 AM CDT Nonspecific (abnormal) findings on radiological and other examination of gastrointestinal tract HIV ANTIBODY Routine 09/23/2011 8:32 AM CDT Special screening examination for other specified viral diseases Screening examination for venereal disease HEPATITIS C ANTIBODY, WITH REFLEX Routine 05/24/2009 5:10 PM UTILITY REPAIRER from Last 3 Months or Most Recently Relevant to Health Maintenance Results * MM Mammogram Screening Bilat W Implants W 3D Solitario W CAD (06/06/2023 1:38 PM UTILITY REPAIRER) Anatomical Region Laterality Modality Breast Bilateral Mammography Impressions 06/06/2023 1:49 PM UTILITY REPAIRER : ACR BI-RADS Category 2: Benign RECOMMENDATION: Follow Up Imaging in 12 months - Bilateral The results and recommendations of this examination will be communicated to the patient. Narrative 06/06/2023 1:49 PM UTILITY REPAIRER MM MAMMOGRAM SCREENING BILAT W IMPLANTS W 3D SOLITARIO W CAD performed on 06/06/23 Compared to: 11/01/2020 MM Mammogram Screening Bilat W Implants W 3D Solitario W CAD, 06/04/2019 Foreign Image(S) Mammogram, and 04/01/2018 Foreign Image(S) Mammogram ?? FINDINGS: Bilateral screening mammogram was performed with the assistance of Computer-Aided Detection and breast tomosynthesis. The breasts have scattered areas of fibroglandular density. There are findings of breast augmentation. There is no radiographic evidence of malignancy. ?? Jessica Salgado APRN, ELECTRONIC ENGRAVER RAD CHEL * PAP Test (02/29/2020 4:22 PM UTILITY REPAIRER) Case Report Pap ? Case: [id number] ? Authorizing Provider: ??Lillian Holbrook APRN, MARGARETHM ??Collected: ? 02/29/2020 1622 ? Ordering Location: ? [facility] ? Received: ?02/29/2020 1649 ? Services-MEDICAL AFFAIRS MANAGER ? First Screen: ?Mojgan Cool CT (ASCP) ? Specimen: ?Pap Test, Routine, Cervix/Endocervix ? 03/14/2020 9:37 AM UTILITY REPAIRER [facility] Pap Specimen Adequacy Satisfactory for evaluation, endocervical/gottlieb sformation zone component present. 03/14/2020 9:37 AM UTILITY REPAIRER [facility] Pap Interpretation Negative for intraepithelial lesion or malignancy (NILM). 03/14/2020 9:37 AM UTILITY REPAIRER [facility] Pap Disclaimer The Pap test is a screening test designed to aid in the detection of cervical cancer and its precursor lesions. It is not a diagnostic procedure and should not be used as the sole means of detecting cervical cancer. Both false-positive and false-negative results may occur. 03/14/2020 9:37 AM UTILITY REPAIRER [facility] Gross Description The specimen is received in SurePath fixative and properly labeled. 1 Pap-stained SurePath slide is prepared. 03/14/2020 9:37 AM UTILITY REPAIRER [facility] Embedded Images 0 9:37 AM UTILITY REPAIRER [facility] Other Specimen Type ENTIRE ENDOCERVIX / Unknown 02/29/2020 4:22 PM UTILITY REPAIRER 02/29/2020 4:49 PM UTILITY REPAIRER Comment:LMP: Patient's last menstrual period was 02/08/2020. Lillian Holbrook APRN, CNM LAB PATHOLOGY Performing Organization Address [facility] Co de Phone Number [facility] [address] * (ABNORMAL) Cholesterol, Total & HDL [CHS] (02/29/2020 4:12 PM UTILITY REPAIRER) Cholesterol 206(H) 0 - 199 mg/dL 03/01/2020 12:53 PM UTILITY REPAIRER [facility] HDL Cholesterol 64 >=40 mg/dL 0 12:53 PM UTILITY REPAIRER [facility] Non HDL Chol, Calculated 142 mg/dL 03/01/2020 12:53 PM UTILITY REPAIRER [facility] Blood Venipuncture / Unknown 02/29/2020 4:12 PM UTILITY REPAIRER 02/29/2020 4:12 PM UTILITY REPAIRER Lillian Holbrook APRN, CNM LAB_1 Performing Organization Address [facility] de Phone Number [facility] [address] [place] [address], [facility] [phone] * COLONOSCOPY [[id number]] (09/07/2013 8:01 AM CDT) 09/07/2013 8:01 AM CDT Narrative GI ([facility]) - 09/07/2013 8:29 AM CDT Indications: ? Abdominal pain, Hematochezia, Melena, bloating Providers: ? Chapo Sood MD, Chela Lopez RN Referring MD: ? Medicines: ? Exactacaine [place] 2 doses, Fentanyl IV 100 mcgs, ? [...] Procedure Code(s): ?? --- Professional --- ? 65821, Esophagogastroduodenoscopy, flexible, ? transoral; with biopsy, single or multiple Diagnosis Code(s): ?? --- Professional --- ? 789.00, Abdominal pain, unspecified site ? 578.1, Blood in stool CPT copyright 2013 [employer]. All rights reserved. The codes documented in this report are preliminary and upon demand inspector review may be revised to meet current compliance requirements. Attending Participation: Chapo Sood MD 09/07/2013 8:29 AM This report has been signed electronically. Number of Addenda: 0 Note Initiated On: 09/07/2013 8:01 AM Procedure Note Chapo Sood MD - 09/07/2013 Indications: Abdominal pain, Hematochezia, Melena, bloating Providers: Chapo Sood MD, Chela Lopez, LEELA Referring MD: Medicines: Exactacaine [place] 2 doses, Fentanyl IV 100 mcgs, Versed/Midazolam [...] care physician. Procedure Code(s): --- Professional --- 86843, Esophagogastroduodenoscopy, flexible, transoral; with biopsy, single or multiple Diagnosis Code(s): --- Professional --- 789.00, Abdominal pain, unspecified site 578.1, Blood in stool CPT copyright 2013 [employer]. All rights reserved. The codes documented in this report are preliminary and upon demand inspector review may be revised to meet current compliance requirements. Attending Participation: Chapo Sood MD 09/07/2013 8:29 AM This report has been signed electronically. Number of Addenda: 0 Note Initiated On: 09/07/2013 8:01 AM Chapo Sood MD [facility] ([facility]) [place], [place] * HIV ANTIBODY (09/23/2011 8:32 AM CDT) HIV 1/HIV 2 Non-React Non-Reacti ve HP CONVERSION 09/23/2011 8:32 AM CDT 09/23/2011 11:48 AM CDT Sonja Dalton APRN, ELECTRONIC ENGRAVER LAB_1 HP CONVERSION * Hepatitis C Antibody, with Reflex (05/24/2009 5:10 PM UTILITY REPAIRER) Hepatitis C Antibody Non Reac Non Reac HP CONVERSION 05/24/2009 5:10 PM UTILITY REPAIRER Amanda Stockton APRN, CNP LAB_1 HP CONVERSION from Last 3 Months or Most Recently Relevant to Health Maintenance Care Teams Gusset Maker Relationship Specialty Start Date End Date Needs Pcp, [place] [address] PCP - General 08/12/14
--- OUTSIDE RECORDS SUMMARY | 2023-10-17 14:37 | XMS_ITS | Referral Summary ---
Author Organization [place] Address [address] [place] [address] Care Team Providers Care Play Therapist Name Role Phone Medardo Graf MD Primary Care Provider [phone] Umu Duke MD Unavailable [phone] Allergies Active Allergy Reactions Criticality Noted [...] Overview: Added automatically from request for surgery [id number] Vaginal delivery 04/28/2012 Labor and delivery, indication [...] Comments Blood Pressure 126/76 05/26/2023 7:30 AM BUDGET ANALYST Pulse 87 05/26/2023 7:30 AM BUDGET ANALYST Temperature 36.9 ??C (98.5 ??F) 05/26/2023 5:15 AM CS T Respiratory Rate 18 05/26/2023 7:30 AM BUDGET ANALYST Oxygen Saturation 100% 05/26/2023 7:30 AM BUDGET ANALYST Inhaled Oxygen Concentration - - Weight 79.4 kg (175 lb) 05/26/2023 5:15 AM BUDGET ANALYST Height 167.6 cm (5' 6) 05/26/2023 5:15 AM BUDGET ANALYST Body Mass Index 28.25 05/26/2023 5:15 AM BUDGET ANALYST Plan of Treatment Not on file Procedures Procedure Name Priority Date/Time Associated Diagnosis Comments BASIC METABOLIC PANEL STAT 05/26/2023 5:46 AM BUDGET ANALYST MA SCREENING WITH IMPLANTS BILATERAL W/ DEVAN Routine 11/01/2020 12:04 PM CDT LIPID PROFILE Routine 03/19/2018 HIV 1 AND 2 ANTIBODY (QUEST) Routine 09/23/2011 from Last 3 Months or Most Recently Relevant to Health Maintenance Results * Basic metabolic panel (05/26/2023 5:46 AM BUDGET ANALYST) Sodium 139 135 - 145 mmol/L 05/26/2023 6:18 AM BUDGET ANALYST [facility] Comment:Reference intervals for this test were updated on 01/07/2023 to more accurately reflect our healthy population. There may be differences in the flagging of prior results with similar values performed with this method. Interpretation of those prior results can be made in the context of the updated reference intervals. Potassium 4.1 3.4 - 5.3 mmol/L 05/26/2023 6:18 AM [facility] Chloride 101 98 - 107 mmol/L 05/26/2023 6:18 AM [facility] Carbon Dioxide (CO2) 27 22 - 29 mmol/L 05/26/2023 6:18 AM [facility] Anion Gap 11 7 - 15 mmol/L 05/26/2023 6:18 AM [facility] Urea Nitrogen 9.0 6.0 - 20.0 mg/dL 05/26/2023 6:18 AM [facility] Creatinine 0.82 0.51 - 0.95 mg/dL 05/26/2023 6:18 AM [facility] GFR Estimate 89 >60 mL/min/1. 73m2 05/26/2023 6:18 AM [facility] Calcium 9.5 8.6 - 10.0 mg/dL 05/26/2023 6:18 AM [facility] Glucose 96 70 - 99 mg/dL 05/26/2023 6:18 AM [facility] Blood BLOOD SPECIMEN / Unknown Venipuncture / Unknown 05/26/2023 5:46 AM BUDGET ANALYST 05/26/2023 5:55 AM [facility] Allen Ayon MD LAB - BLOOD LUC ISSA [facility] Organization Address City/State/ZIP Co de Phone Number LABORATORY [facility] [address] (1st floor, no room number) [place] [address], [facility] [phone] * (ABNORMAL) Lipid Profile (03/19/2018) Cholesterol 239(A) 90 - 200 mg/dL [facility] Triglycerides 114 40 - 197 mg/dL [facility] HDL Cholesterol 83 >=50 mg/dL [facility] LDL Cholesterol Calculated 133(A) <100 mg/dL [facility] Blood specimen (specimen) 03/19/2018 Narrative [facility] - 03/19/2018 LAB RESULT [facility] Provider Outside LAB - BLOOD ORDERABL ES [facility] [address] [place] [address], [facility] [phone] * HIV 1 and 2 Antibody (09/23/2011) HIV-1 & HIV-2 Antibody HIV 1&2 Antibody non reactive Blood specimen (specimen) Patient Reported LAB - BLOOD ORDERABL ES from Last 3 Months or Most Recently Relevant to Health Maintenance Care Teams Play Therapist Relationship Specialty Start Date End Date Medardo Graf MD [facility] [address] [place] [address] PCP - General Family Practice 11/15/18 Umu Duke MD [address] [facility] [address] [place] [address] importer exporter 03/16/20
--- OUTSIDE RECORDS SUMMARY | 2023-10-17 14:37 | XMS_ITS | Encounter Summary ---
Author Organization [place] Address [address] [place] [address] Care Team Providers Care Telephone Lines Repairer Name Role Phone Medardo Graf MD Primary Care Provider [phone] Noelle Khan MD Unavailable [phone] Umu Duke MD Unavailable [phone] Umu Duke MD Unavailable [phone] Encounter Details Date Type Department Care Team (Late st Contact Info) Description 07/06/2020 MyC Medical Advice [facility] [place] [address] Floor,[address] [facility] [address] [place] [id number] Umu Duke MD [address] [place] [address] Social History Tobacco Use Types [...] COVID-19? No / Unsure 06/11/2020 8:16 AM PHOTOVOLTAIC FABRICATION TECHNICIAN documented as of this encounter Plan of Treatment Not on file documented as of this encounter Visit Diagnoses Not on filedocumented in this encounter Additional Health Concerns Infection Onset Date Last Indicated Resolved Time Influenza 04/04/2021 04/04/2021 04/11/2021 11:4 1 PM PHOTOVOLTAIC FABRICATION TECHNICIAN Assessment Noted Time PHQ-9 Depression Total Score: 2 06/01/19 1:03 PM PHOTOVOLTAIC FABRICATION TECHNICIAN documented as of this encounter Care Teams Telephone Lines Repairer Relationship Specialty Start Date End Date Medardo Graf MD [facility] [address] [place] [address] PCP - General Family Practice 11/15/18 Noelle Khan MD [facility] [address] [place] [address] Assigned Pulmonology Provider 02/04/20 11/09/21 Umu Duke MD [address] [place], [place] [address] residential appliance repair technician 03/16/20 Umu Duke MD [address] [place], [place] [address] Assigned OBGYN Provider 06/04/2002/01 documented as of this encounter
--- OUTSIDE RECORDS SUMMARY | 2023-10-17 14:37 | XMS_ITS | Encounter Summary ---
[facility] Organization [facility] Address [address] [place] [address] Care Team Providers Care Char Conveyor Tender Name Role Phone Needs Pcp, Assignment Primary Care Provider [phone] Encounter Details Date Type Department Care Team [...] documented as of this encounter Care Teams Char Conveyor Tender Relationship Specialty Start Date End Date Needs Pcp, [place] [address] PCP - General 08/12/14 documented as of this encounter
--- OUTSIDE RECORDS SUMMARY | 2023-10-17 14:37 | XMS_ITS | Encounter Summary ---
Author Organization [facility] Address [address] [place] [address] Care Team Providers Care Public Health Outreach Worker Name Role Phone Ghanshyam Hassan Primary Care Provider Unavailable Ghanshyam Hassan Primary Care Provider Unavailable Allen Amaya MD Primary Care Provider Ghanshyam Hassan Primary Care Provider Unavailable Medardo Graf MD Primary Care Provider [phone] Noelle Khan MD Unavailable + [phone] Umu Duke MD Unavailable [phone] Umu Duke MD Unavailable [phone] Reason for Visit * Reason Onset Date Comments Nurse Advice Line 04/23/2011 Encounter Details Date Type Department Care Team (Late st Contact Info) Description 04/23/2011 Telephone [facility] [place] [address] [place] [address] Allen Amaya MD [address] [place] [address] Nurse Advice Line Social History [...] Becky Yepez - 08/21/2011 6:41 AM CDT [facility] Triage Call Report Patient Name: Lacey Nolasco Call Date & Time: 04/23/2011 9:08:38PM Patient PCP Name: Patient Address: [address] [place] [id number] Patient Date of : 1980 Age: 31 yr. Patient Gender: Female Software Lead Name: Kerrie Ponce Presenting Problem: I'm wondering [...] Influenza 04/04/2021 04/04/2021 04/11/2021 11:4 1 PM TELETYPEWRITER OPERATOR documented as of this encounter Care Teams Public Health Outreach Worker Relationship Specialty Start Date End Date Ghanshyam Hassan PCP - General 04/19/11 02/21/12 Ghanshyam Hassan PCP - General 02/22/12 02/22/12 Allen Amaya MD PCP - General [facility] 02/23/12 04/07/12 Ghanshyam Hassan PCP - General 04/08/12 11/14/18 Medardo Graf MD [facility] [address] [place] [address] PCP - General Family Practice 11/15/18 Noelle Khan MD [facility] [address] [place] [address] Assigned Pulmonology Provider 02/04/20 11/09/21 Umu Duke MD [address] [place] [address] [facility] 03/16/20 Umu Duke MD [address] [place] [address] Assigned OBGYN Provider 06/04/2002/01 documented as of this encounter
--- OUTSIDE RECORDS SUMMARY | 2023-10-17 14:37 | XMS_ITS | Clinical Summary ---
Author Organization [facility] Address [address] [place] [address] Care Team Providers Care Assistant Professor Of German Name Role Phone Medadro Graf MD Primary Care Provider [phone] Umu Duke MD Unavailable [phone] Allergies Active Allergy Reactions Criticality Noted [...] Overview: Added automatically from request for surgery [id number] Vaginal delivery 04/28/2012 Labor and delivery, indication [...] Comments Blood Pressure 126/76 05/26/2023 7:30 AM CARDIAC CATHETERIZATION TECHNOLOGIST Pulse 87 05/26/2023 7:30 AM CARDIAC CATHETERIZATION TECHNOLOGIST Temperature 36.9 ??C (98.5 ??F) 05/26/2023 5:15 AM CS T Respiratory Rate 18 05/26/2023 7:30 AM CARDIAC CATHETERIZATION TECHNOLOGIST Oxygen Saturation 100% 05/26/2023 7:30 AM CARDIAC CATHETERIZATION TECHNOLOGIST Inhaled Oxygen Concentration - - Weight 79.4 kg (175 lb) 05/26/2023 5:15 AM CARDIAC CATHETERIZATION TECHNOLOGIST Height 167.6 cm (5' 6) 05/26/2023 5:15 AM CARDIAC CATHETERIZATION TECHNOLOGIST Body Mass Index 28.25 05/26/2023 5:15 AM CARDIAC CATHETERIZATION TECHNOLOGIST Plan of Treatment Health Maintenance Due Date [...] 06/01/2020, 05/12/2020, Additional history exists INFLUENZA VACCINE (#1) 2023 , 12/27/2019, 12/27/2019, Additional history exists GLUCOSE 05/26/2026 [...] BASIC METABOLIC PANEL STAT 05/26/2023 5:46 AM CARDIAC CATHETERIZATION TECHNOLOGIST MA SCREENING WITH IMPLANTS BILATERAL W/ DEVAN Routine 11/01/2020 12:04 PM CDT LIPID PROFILE Routine 03/19/2018 HIV 1 AND 2 ANTIBODY (QUEST) Routine 09/23/2011 from Last 3 Months or Most Recently Relevant to Health Maintenance Results * Basic metabolic panel (05/26/2023 5:46 AM [facility]) Sodium 139 135 - 145 mmol/L 05/26/2023 6:18 AM [facility] Comment:Reference intervals for this test were updated on 01/07/2023 to more accurately reflect our healthy population. There may be differences in the flagging of prior results with similar values performed with this method. Interpretation of those prior results can be made in the context of the updated reference intervals. Potassium 4.1 3.4 - 5.3 mmol/L 05/26/2023 6:18 AM [facility] Chloride 101 98 - 107 mmol/L 05/26/2023 6:18 AM [facility] Carbon Dioxide (CO2) 27 22 - 29 mmol/L 05/26/2023 6:18 AM [facility] Anion Gap 11 7 - 15 mmol/L 05/26/2023 6:18 AM [facility] Urea Nitrogen 9.0 6.0 - 20.0 mg/dL 05/26/2023 6:18 AM [facility] Creatinine 0.82 0.51 - 0.95 mg/dL 05/26/2023 6:18 AM [facility] GFR Estimate 89 >60 mL/min/1. 73m2 05/26/2023 6:18 AM [facility] Calcium 9.5 8.6 - 10.0 mg/dL 05/26/2023 6:18 AM [facility] Glucose 96 70 - 99 mg/dL 05/26/2023 6:18 AM [facility] Blood BLOOD SPECIMEN / Unknown Venipuncture / Unknown 05/26/2023 5:46 AM CARDIAC CATHETERIZATION TECHNOLOGIST 05/26/2023 5:55 AM [facility] Allen Ayon MD LAB - BLOOD [facility] [address] [facility] (1st floor, no room number) [place] [address], [facility] [phone] * (ABNORMAL) Lipid Profile (03/19/2018) Cholesterol 239(A) 90 - 200 mg/dL [facility] Triglycerides 114 40 - 197 mg/dL [facility] HDL Cholesterol 83 >=50 mg/dL [facility] LDL Cholesterol Calculated 133(A) <100 mg/dL [facility] Blood specimen (specimen) 03/19/2018 Narrative [facility] - 03/19/2018 LAB RESULT [facility] Provider Outside LAB - BLOOD ORDERABL ES [facility] [address] [place], [place] [address] [phone] * HIV 1 and 2 Antibody (09/23/2011) HIV-1 & HIV-2 Antibody HIV 1&2 Antibody non reactive Blood specimen (specimen) Patient Reported LAB - BLOOD ORDERABL ES from Last 3 Months or Most Recently Relevant to Health Maintenance Care Teams Assistant Professor Of German Relationship Specialty Start Date End Date Medardo Graf MD [facility] [address] [place] [address] PCP - General Family Practice 11/15/18 Umu Duke MD [address] [place] [address] supervisor plastic sheets 03/16/20
--- OUTSIDE RECORDS SUMMARY | 2023-10-17 14:37 | XMS_ITS | Encounter Summary ---
Author Organization [facility] Address [address] [place] [address]. [place] [address] Care Team Providers Care Headstart Teacher Name Role Phone Medardo Graf MD Primary Care Provider [phone] Noelle Khan MD Unavailable [phone] Umu Duke MD Unavailable [phone] Umu Duke MD Unavailable [phone] Encounter Details Date Type Department Care [...] COVID-19? No / Unsure 02/28/2021 2:08 PM INVESTIGATION DIVISION SERGEANT documented as of this encounter Plan of Treatment Not on file documented as of this encounter Visit Diagnoses Not on filedocumented in this encounter Additional Health Concerns Infection Onset Date Last Indicated Resolved Time Influenza 04/04/2021 04/04/2021 04/11/2021 11:4 1 PM INVESTIGATION DIVISION SERGEANT Assessment Noted Time PHQ-9 Depression Total Score: 2 06/01/19 21 1:03 PM INVESTIGATION DIVISION SERGEANT documented as of this encounter Care Teams Headstart Teacher Relationship Specialty Start Date End Date Medardo Graf MD [facility] [address] [place] [address] PCP - General Family Practice 11/15/18 Noelle Khan MD [facility] [address] [place] [address] Assigned Pulmonology Provider 02/04/20 11/09/21 Umu Duke MD [address] [place], [place] [id number] history professor 03/16/20 Umu Duke MD [address] [place], [place] [address] Assigned OBGYN Provider 06/04/2002/01 documented as of this encounter
--- OUTSIDE RECORDS SUMMARY | 2023-10-17 14:37 | XMS_ITS | Clinical Summary ---
Author Organization [facility] Address [place], [place] [address] Care Team Providers Care Vending Technician Name Role Phone Medardo Graf MD Primary Care Provider [phone] Allergies Active Allergy Reactions Criticality Noted Date [...] this topic Medical Devices Implanted Type Area Flight Radio Operator Device Identifier Shelf Expiration Date Model / Serial / Lot Disc Sc [id number] Cerv [id number] - [id number] Implanted:Qty: 1 on 06/17/2011 at [facility] Spine [employer]ANE[employer] [id number] / / [id number] M15-304 Natrelle Silicone-Filled Breast Implant Smooth Round Midrange Profile - [id number] Implanted:Qty: 1 on 02/28/2014 by Kar Nava MD at [facility] Right: Breast 05/14/2018 15-304 NATRELLE SILICONE-FI LLED BREAST IMPLANT SMOOTH ROUND MIDRANGE PROFILE / [id number] / [id number] M15-265 Natrelle Silicone Breast Implant Smooth Round Midrange Profile - [id number] Implanted:Qty: 1 on 02/28/2014 by Kar Nava MD at [facility] Left: Breast 09/11/2018 15-265 NATRELLE SILICONE BREAST IMPLANT SMOOTH ROUND MIDRANGE PROFILE / [id number] / [id number] Disc Cerv 6x14mm Prestige Lp Titnm Ceramic - [id number] Implanted:Qty: 1 on 10/07/2022 by Ulises Medina MD at [facility] N/A: Cervical Vertebrae [employer] [facility] 03/17/2030 [id number] / / [id number] Procedures Procedure Name Priority Date/Time Associated Diagnosis Comments HPV THIN PREP Routine 10/24/2022 8:30 AM CDT from Last 3 Months or Most Recently Relevant to Health Maintenance Results * HPV HIGH RISK (10/24/2022 8:30 AM CDT) TYPE 16 Negative Negative 10/29/2022 11:44 AM CDT [facility] TYPE 18 Negative Negative 10/29/2022 11:44 AM CDT [facility] OTHER HIGH RISK TYPES Negative Negative 10/29/2022 11:44 AM CDT [facility] Other (Cervical) 10/24/2022 8:30 AM CDT 10/24/2022 6:23 PM CDT Narrative [facility] - 10/29/2022 11:44 AM CDT HPV types 16, 18, 31, 33, 35, 39, 45, 51, 52, 56, 58, 59, 66 and 68 DNA were undetectable or below the pre-set threshold. Methodology: Evan Jack 4800 HPV Test Caitlyn Dorado PA-C MICROBIOLOGY [facility] [address] [place] [address], from Last 3 Months or Most Recently [...] 5:51 AM 06/18/2011 8:24 PM Care Teams Vending Technician Relationship Specialty Start Date End Date Medardo Graf MD [address] [place] [address] PCP - General Family Practice 09/24/22
--- OUTSIDE RECORDS SUMMARY | 2023-10-17 14:37 | XMS_ITS | Encounter Summary ---
Author Organization [facility] Address [address] [facility] [place] [address] Care Team Providers Care Engineering Inspection Assistant Name Role Phone Medardo Graf MD Primary Care Provider [phone] Noelle Khan MD Unavailable [phone] Umu Duke MD Unavailable [phone] Umu Duke MD Unavailable [phone] Encounter Details Date Type Department Care Team (Late st Contact Info) Description 07/14/2020 MyC Medical Advice [facility] [place] [address] Floor,[address] [place] [facility] [address] [place] [phone] Umu Duke MD [address] [place] [address] Social History Tobacco Use Types [...] Influenza 04/04/2021 04/04/2021 04/11/2021 11:4 1 PM HOT TOP LINER HELPER Assessment Noted Time PHQ-9 Depression Total Score: 2 06/01/19 21 1:03 PM HOT TOP LINER HELPER documented as of this encounter Care Teams Engineering Inspection Assistant Relationship Specialty Start Date End Date Medardo Graf MD [facility] [address] [place] [address] PCP - General Family Practice 11/15/18 oNelle Khan MD [facility] [address] [place] [address] Assigned Pulmonology Provider 02/04/20 11/09/21 Umu Duke MD [address] [place], [place] [address] ribbing machine operator 03/16/20 Umu Duke MD [address] [place], [place] [address] Assigned OBGYN Provider 06/04/2002/01 documented as of this encounter
[2023-10-17] MEDS: 0.9 % SODIUM CHLORIDE 500 ML 500 ML IV (14:48)
[2023-10-17] MEDS: KETOROLAC 30 MG/ML inj IVP (14:48)
[2023-10-17] MEDS: diphenhydrAMINE 50 MG/ML inj 25 MG IVP (14:49)
[2023-10-17] MEDS: ONDANSETRON 2 MG/ML inj 4 MG IVP (14:49)
[2023-10-17] MEDS: dexAMETHasone 4 MG/ML VIAL 10 MG IV (15:50)
[2023-10-17] MEDS: SUMAtriptan 6 MG/0.5 ML INJ SUBCUT (15:50)
[2023-10-17 16:15] VITALS: BP 116/77; PULSE 101; RESP 20; O2SAT 98
== END 2023-10-17 16:55 | disposition home or self-care (01) ==
PROVIDERS: Emergency Provider Family Medicine; PCP Family Medicine
DX: R51.9 Headache, unspecified (principal)
CPT/HCPCS: 96374; 96375; 99283; 99284; J1100; J1200; J1885; J2405; J3030; J7030

== ENCOUNTER 2023-12-09 11:04 | Outpatient (CLI) | payer BC, SELFPAY | END 2023-12-09 11:05 | disposition home or self-care (01) | LOC: NFLDREF 12-11 12:28 | PROVIDERS: PCP Family Medicine; Referring Provider Family Medicine; Visit Provider Family Medicine | DX: E03.9 Hypothyroidism, unspecified (principal) | CPT/HCPCS: 84443 ==

== ENCOUNTER 2024-02-08 15:22 | Emergency (ER) | payer BC, SELFPAY ==
[2024-02-08] VITALS (8 sets, daily range): BP systolic 118–124; BP diastolic 82–84; PULSE 81–90; RESP 18; TEMP 36.5; O2SAT 97–99; BMI 28.3
--- NOTE | 2024-02-08 15:34 | ED_ITS ---
HPI - Chest Pain General Time Seen by Provider: 15:34 Date Seen: 02/08/24 Chief Complaint: Chest Pain Stated Complaint: chest pain Time Seen by Provider: 02/08/24 15:25 Source: patient and RN notes reviewed Mode of arrival: ambulatory Limitations: no limitations History of Present Illness HPI narrative: This 43-year-old female is coming in with chest pain that was bothersome on Friday and Friday, feels it is resolved today. She went to [facility] to see family, traveled on Friday. She states the chest discomfort was the left side of her chest, was there before traveling. This past week she noted pain in the left shoulder blade area, did not improve with massage from her boyfriend. She did not really notice any breathing change with this. She felt a little nausea at times but no vomiting. She had no abdominal pain, no heartburn or reflux symptoms, states she never gets heartburn. She has maybe had a little slight cough for about a week and a half but no fevers or chills. She felt no palpitations or irregular heartbeat. Friday morning she was woke up with a severe pain like somebody punched her in the chest. She almost thought of going in at that time but the intensity of that pain resolved after a while. In the past she has had times where she has felt a little flip flop of her heart but that was not happening. She has no history of prior cardiopulmonary disease, no history of blood clots. Her dad has had a heart attack before. Her problem list is reviewed with obesity, acne, herpes labialis, hyperlipidemia, hyperglyc emia, back injury, neck pain, hypothyroidism, history of uterine leiomyoma, history a endometriosis, deviated nasal septum, asthma, anxiety with depression. She does not smoke, is on no contraception or hormones. MD complaint: chest pain Related Data Home Medications ?Medication ?Instructions ?Recorded ?Confirmed benzonatate 100 mg capsule mg PO 05/25/23 05/25/23 doxycycline hyclate 100 mg capsule 100 mg PO BID 05/25/23 05/25/23 Previous Rx's ?Medication ?Instructions ?Recorded ketoconazole 2 % topical cream 1 applic topical BID #30 grams 03/11/23 spironolactone 50 mg tablet 50 mg PO BID #60 tabs 04/10/23 amoxicillin 875 mg-potassium 1 tab PO BID #20 tabs 05/25/23 clavulanate 125 mg tablet azithromycin 250 mg tablet See Rx Instructions PO .COMPLEX #6 05/25/23 tabs codeine 10 mg-guaifenesin 100 mg/5 10 ml PO Q4-6H PRN cough #240 mL 05/25/23 mL oral liquid codeine 10 mg-guaifenesin 200 mg/5 10 ml PO Q4-6H PRN cough #240 mL 05/25/23 mL oral liquid valacyclovir 1 gram tablet 1,000 mg PO Q12H PRN cold sores 08/14/23 (Valtrex) #20 tabs liothyronine 25 mcg tablet 25 mcg PO QDAY #90 tabs 09/12/23 (Cytomel) sumatriptan succinate 50 mg tablet 50 mg PO DIRECTED #9 tabs 10/17/23 semaglutide (weight loss) 2.4 2.4 mg (0.75 mL) subcut QWEEK #3 mL 11/03/23 mg/0.75 mL subcutaneous pen injector (Wegovy) Allergies Allergy/AdvReac Type Severity Reaction Status Date / Time zolpidem Allergy Mild Insomnia Verified 05/25/23 09:20 Review of Systems Status of ROS Reports: 6 or more systems reviewed and unremarkable except as noted in History and below PFSH [facility] Medical History STI (sexually transmitted infection) ?A64 - Unspecified sexually transmitted disease (ICD-10) Surgical History History of tonsillectomy and adenoidectomy (1983) ?Z90.89 - Acquired absence of other organs (ICD-10) History of right breast biopsy (04/01/18) ?Z98.890 - Other specified postprocedural states (ICD-10) History of laparoscopy (04/23/11) ?Z98.890 - Other specified postprocedural states (ICD-10) History of endometrial ablation (2013) ?Z98.890 - Other specified postprocedural states (ICD-10) History of cervical spinal surgery (2011) ?Z98.890 - Other specified postprocedural states (ICD-10) History of breast augmentation ?Z98.82 - Breast implant status (ICD-10) Social History Smoking Status: Never smoker Do you use any of these nicotine containing products: None Second hand tobacco smoke exposure: No How often do you have a drink containing alcohol: 2-3 times a week How many standard drinks containing alcohol do you have on a typical day: 1 or 2 How often do you have six or more drinks on one occasion: Never AUDIT-C Alcohol total score: 3 Non-prescribed substance use: denies use service: Yes Exam Const Vital Signs, click to edit/add: Vital Signs - 24 hr 02/08/24 15:28 02/08/24 15:55 02/08/24 16:00 Temperature 97.7 F Pulse Rate 89 89 Pulse Rate [Pulse Oximeter] 82 Respiratory Rate 18 Blood Pressure [Right Upper Arm] 124/82 Pulse Oximetry 97 98 97 Oxygen Delivery Method Room Air This 43-year-old female is alert, interactive, no apparent distress, very well kept him pleasant. Pupils are equal and round, sclera clear, conjugate gaze. Symmetrical facial function, speech is normal. Neck is supple, no adenopathy, no jugular venous distension. Lungs are clear, good air entry, no wheezing or crackles. CV regular rate and rhythm, no murmur, normal S1-S2, no S3-S4. Abdomen is soft, nontender, nondistended, no organomegaly. She has no lower extremity edema. She is ambulatory into the ED of her own accord. Documenting provider has reviewed patient's vital signs: yes Course Course ED Course: Have reviewed that we will have patient on cardiac monitoring, pulse oximetry. Have reviewed her initial EKG which is not definitive for any active ischemia. Will get a portable chest x-ray. She understands if her D-dimer is elevated that will be doing chest CT PE protocol to rule out pulmonary embolism. She really is not symptomatic any longer. She had chest symptoms for about 2 days, if troponin is normal at this time I think effectively rules out acute coronary syndrome, myocarditis. There is no evidence of any EKG changes of pericarditis and doubt that she would just suddenly improve within 2 days. It is possible this could be infectious with a slight cough for a week and a half. Will get a full complement of labs. Right now she is hemodynamically stable. Reevaluation(s) Time of Reevaluation #1: 16:59 Reevaluation #1: Have reviewed with Shamir that laboratory evaluation as well as chest x-ray showing no identifiable etiology for her symptoms. She has improved but we have discussed that we really do not have diagnostic reason for her symptoms. I am glad that she feels better but have stressed to her that if her symptoms return, I do recommend re-evaluation in the ER. She otherwise should follow up with her primary care provider in clinic this next week and discussed my recommendation of cardiac stress testing. She has not had an acute myocardial infarction, no evidence of thromboembolic disease or infectious etiology on labs, no concerning changes on GI labs and no abdominal symptoms with this. Etiology remains unknown which is why I do recommend re-evaluation with recurrence of symptoms in the interim. Vital Signs Vital signs: Initial Vital Signs Temperature 97.7 F 02/08/24 15:28 Temperature Source Temporal Artery Scan 02/08/24 15:28 Pulse Rate 82 02/08/24 15:28 Pulse Rhythm Regular 02/08/24 15:28 Respiratory Rate 18 02/08/24 15:28 Blood Pressure 124/82 02/08/24 15:28 Blood Pressure Mean 96 02/08/24 15:28 Blood Pressure Position Sitting 02/08/24 15:28 Pulse Oximetry 97 02/08/24 15:28 Oxygen Delivery Method Room Air 02/08/24 15:28 Vital Signs Temperature 97.7 F 02/08/24 15:28 Pulse Rate 82 02/08/24 15:28 Respiratory Rate 18 02/08/24 15:28 Blood Pressure 124/82 02/08/24 15:28 Pulse Oximetry 97 02/08/24 15:28 Oxygen Delivery Method Room Air 02/08/24 15:28 Temperature 97.7 F 02/08/24 15:28 Pulse Rate 89 02/08/24 16:00 Respiratory Rate 18 02/08/24 15:28 Blood Pressure 124/82 02/08/24 15:28 Pulse Oximetry 97 02/08/24 16:00 Oxygen Delivery Method Room Air 02/08/24 15:28 MDM - Chest Pain Lab Data Attestation: I reviewed the patient's lab results. Labs: Lab Results 10/27/24 Range/Units 15:50 WBC 6.83 (4.50-11.00) K/uL RBC 4.70 (4.00-5.20) m/uL Hgb 13.8 (12.0-16.0) gm/dL Hct 42.4 (33.0-51.0) % MCV 90 (80-100) fL MCH 29 (26-34) pg MCHC 33 (32-36) gm/dL RDW Coeff of Paulo 14.0 (11.5-15.5) % Plt Count 265 (140-440) K/uL Neut % (Auto) 66.0 (42.0-72.0) % Lymph % (Auto) 24.3 (20-44) % Garden % (Auto) 7.0 (0.0-11.0) % Eos % (Auto) 2.2 (0.0-7.0) % Baso % (Auto) 0.4 (0.0-3.0) % Neut # (Auto) 4.50 (1.7-7.0) K/uL Lymph # (Auto) 1.66 (0.90-2.90) K/uL Garden # (Auto) 0.50 (0.00-0.90) K/UL Eos # (Auto) 0.15 (0.00-0.50) K/uL Baso # (Auto) 0.03 (0.00-0.30) K/uL Abs Immat Gran (auto) 0.01 (0.00-0.30) K/uL Imm/Tot Granulo (auto) 0.1 % D-Dimer Quant (PE/DVT) 0.28 (0.00-0.50) ug/ml Sodium 136 (135-149) mmol/L Potassium 3.6 (3.6-5.1) mmol/L Chloride 102 (96-114) mmol/L Carbon Dioxide 27 (20-32) mmol/L Anion Gap 7 (7-15) mEq/L BUN 12 (5-24) mg/dL Creatinine 0.7 (0.5-1.5) mg/dL Estimated Creat Clear 91.32 Estimated GFR 109 ml/min Glucose 96 (60-115) mg/dL Lactate 0.8 (0.5-1.9) mmol/L Calcium 9.1 (8.4-10.6) mg/dL Magnesium 2.0 (1.5-2.6) mg/dL Total Bilirubin 0.4 (0.1-1.5) mg/dL AST 26 (12-35) U/L ALT 23 (4-35) U/L Alkaline Phosphatase 56 (40-150) U/L Troponin I < 0.01 L (0.01-0.04) ng/mL C-Reactive Protein < 0.5 L (0.5-1.0) mg/dL NT-Pro-B Natriuret Pep < 20 pg/mL Total Protein 7.1 (6.0-8.3) g/dL Albumin 4.5 (3.3-5.0) g/dL Lipase 95 (23-300) U/L Imaging Data Chest x-ray: Attestation: I have reviewed the pertinent imaging results. My impression: Patient's portable chest x-ray visualize, no acute pathology my preliminary review, await radiology over-read. Radiologist's impression: Patient: SHAMIR GOTTLIEB Facility:?[facility] Patient ID:?[id number] Site Patient ID:?[id number]. Site :?[id number] Study:?XRay-Chest 1v portable-02/08/2024 3:53:58 PM Ordering Physician:Jammie Landaverde Final Report: INDICATION: Left chest pain. TECHNIQUE: Chest 1 view. COMPARISON: May 25, 2023. FINDINGS: Cardiovascular and mediastinum: Cardiomediastinal silhouette is within normal limits. Lungs and pleural spaces: Low lung volumes. Lungs are clear. No evidence of pleural effusion. No pneumothorax identified. Bones and soft tissues: Unremarkable. IMPRESSION: No acute cardiopulmonary process identified. No significant interval change. Dictated by Tawana Hargrove MD @ 02/08/2024 4:55:45 PM (Electronic Signature) ECG Data Attestation: I personally reviewed and interpreted this ECG as follows: (Normal sinus rhythm, 79 beats per minute. Incomplete right bundle branch block, poor R-wave progression anterior precordial leads.) ECG interpretation date: 02/08/24 ECG interpretation time: 15:56 Prior ECG tracings: not available for review Discharge Plan Discharge Clinical Impression: Chest pain Qualifiers: Chest pain type: unspecified Qualified Code(s): R07.9 - Chest pain, unspecified Instructions: Chest Pain (ED), Noncardiac Chest Pain (ED) Additional Instructions: Do recommend that you get scheduled to see your primary care provider this next week, discussed recommendation for cardiac stress testing. If you have recurrence of you chest pain, do recommend that you are re-evaluated in the interim, EKG, cardiac monitoring and repeat cardiac lab testing should be done in that situation. Otherwise, can resume diet and exercise as tolerated with the knowledge that you do need to be re-evaluated with recurrent symptoms. Activity Level: Activity as Tolerated Prescriptions: No Action spironolactone 50 mg tablet 50 mg PO BID Qty: 60 9RF benzonatate 100 mg capsule PO doxycycline hyclate 100 mg capsule 100 mg PO BID amoxicillin-pot clavulanate 875-125 mg tablet 1 tab PO BID Qty: 20 0RF azithromycin 250 mg tablet See Rx Instructions PO .COMPLEX Qty: 6 0RF Rx Instructions: For 250 mg dose pack: take 500 mg today (day 1), then 250 mg for 4 days (days 2-5) PO codeine-guaifenesin 10-200 mg/5 mL liquid 10 ml PO Q4-6H PRN (Reason: cough) Qty: 240 1RF codeine-guaifenesin 10-100 mg/5 mL liquid 10 ml PO Q4-6H PRN (Reason: cough) Qty: 240 1RF sumatriptan succinate 50 mg tablet 50 mg PO DIRECTED Qty: 9 0RF Rx Instructions: 50 mg orally; ketoconazole 2 % cream 1 applic topical BID Qty: 30 0RF valacyclovir [Valtrex] 1 gram tablet 1,000 mg PO Q12H PRN (Reason: cold sores) Qty: 20 1RF liothyronine [Cytomel] 25 mcg tablet 25 mcg PO QDAY Qty: 90 1RF Wegovy 2.4 mg/0.75 mL pen injector 2.4 mg subcut QWEEK Qty: 3 5RF Follow Up/Referrals: Medardo Graf MD [Primary Care Provider] - Stand Alone Forms: MyHealth Info Instructions
--- NOTE | 2024-02-08 15:44 | CRLHL7_ITS ---
For Patients: As a result of the Cures Act, medical imaging exams and procedure reports are released immediately into your electronic medical record. You may view this report before your referring provider. If you have questions, please contact your health care provider. INDICATION: Left chest pain. TECHNIQUE: Chest 1 view. COMPARISON: May 25, 2023. FINDINGS: Cardiovascular and mediastinum: Cardiomediastinal silhouette is within normal limits. Lungs and pleural spaces: Low lung volumes. Lungs are clear. No evidence of pleural effusion. No pneumothorax identified. Bones and soft tissues: Unremarkable. IMPRESSION: No acute cardiopulmonary process identified. No significant interval change. Dictated by Tawana Hargrove MD @ 02/08/2024 4:55:45 PM (Electronically Signed)
--- OUTSIDE RECORDS SUMMARY | 2024-02-08 15:50 | XMS_ITS | Continuity of Care Document ---
Author Organization [facility] Address [address] [place] [address] Phone Care Team Providers Care Collar Starcher Name Role Phone Rocky Dick MD Unavailable Unavailable Allergies, Adverse Reactions, Alerts [...] Copied on Encounter [facility], [address], [place], [place], [id number], [place] tel:[phone] [facility] No Information 4 Kapil Hidalgo. [facility], [address], [address], [place], [place], [address], [place]. tel:[phone] Office/Outpa tient Visit,Est, Mod [facility], [address], [place], [place], [id number], [place] tel:[phone] [facility] Encounter for other specified surgical aftercare 3 Adam Montgomery. [facility], [address] [place] [address] , [place], [address], [place]. tel:[phone] Referring Provider: [facility] [address] [place] [address] , [place], [address]. tel:[phone] [facility], [address], [place], [place], [id number], [place] tel:[phone] [facility] Encounter for other specified surgical aftercare 3 Artur Chong. [facility], [address], [place], [place], [address], [place]. tel:[phone] Referring Provider: [facility] [address] [place] [address] , [place], [address]. tel:[phone] [facility], [address], [place], [place], [id number], [place] tel:[phone] [facility] No Information 3 Artur Chong. [facility], [address], [place], [place], [address], [place]. tel:[phone] Referring Provider: [facility] [address], [place], [address]. tel:[phone] [facility], [address], [place], [place], [id number], [place] tel:[phone] [facility] No Information 3 Adam Montgomery. [facility], [address], [place], [address], [place]. tel:[phone] Referring Provider: [facility] [address], [place], [address]. tel:[phone] Pre Op Office/Outpa tient Visit, [facility], [address], [place], [place], [id number], [place] tel:[phone] [facility] Radiculopath y, cervical regionCervic al disc disorder with myelopathy, cervicothora cic regionWeakne ss 3 Adam Montgomery. [facility], [address], [place], [address], [place]. tel:[phone] Referring Provider: [facility] [address], [place], [address]. tel:[phone] Office/Outpa tient Visit,Est, Mod [facility], [address], [place], [place], [id number], [place] tel:[phone] [facility] Radiculopath y, cervical regionCervic al disc disorder with myelopathy, cervicothora cic regionWeakne ss 3 Ed Tucker. [facility], [address] [place] [address] [address], [place], [address], [place]. tel:[phone] Referring Provider: [facility] [address], [place], [address]. tel:[phone] Office/Outpa tient Visit,New, Mod [facility], [address], [place], [place], [id number], [place] tel:[phone] [facility] - [facility] Radiculopath y, cervical regionEncoun ter for follow-up examination after completed treatment for conditions other than malignant neoplasm 3 Ed Tucker. [facility], [address] [place] [address] [address], [place], [address], [place]. tel:[phone] Referring Provider: [facility] [address], [place], [address]. tel:[phone] Office/Outpa tient Visit,New, Mod [facility], [address], [place], [place], [id number], [place] tel:[phone] [facility] [place] Arthrodesis status 8 Artur Chong. [facility], [address] [place] [address] [address], [place], [place], [address], [place]. tel:[phone] Referring Provider: SHAN [address], [place], [address]. tel:[phone] Office/Outpa tient Visit,Est, Mod Z [facility], [address], [place], [address], [place] tel:[phone] [facility] [place] No Information 4 Artur Chong. [facility], [address] [place] [address] [address], [place], [place], [id number], [place]. tel:[phone] Referring Provider: [facility], [place], [address]. tel:[phone] Z [facility], [address], [place], [address], [place] tel:[phone] [facility] [place] BRACHIAL NEURITIS NOSARTHRODES IS STATUS 4 Adam Montgomery. [facility] [address], [place], [address], [place]. tel:[phone] Z [facility], [address], [place], [address], [place] tel:[phone] [facility] No Information 2 Adam Montgomery. [facility], [address] [facility] , [place], [address], [place]. tel:[phone] Referring Provider: Ulises Medina, [facility] [address] [place] [address] , [place], [address]. tel:[phone] Z [facility], [address], [place], [address], [place] tel:[phone] [facility] - [facility] No Information Jun- 2 Adam Montgomery. [facility], [address] [place] [address] , [place], [address], [place]. tel:[phone] Referring Provider: [facility] [address] [place] [address] , [place], [address]. tel:[phone] Z [facility], [address], [place], [address], [place] tel:[phone] [facility] - [facility] No Information 2 Artur Chong. [facility], [address], [place], [place], [address], [place]. tel:[phone] Referring Provider: Primary Care Doctor No. Z [facility], [address], [place], [address], [place] tel:[phone] [facility] Headache Jun- 2 Artur Chong. [facility], [address], [place], [place], [address], [place]. tel:[phone] Referring Provider: Ulises Medina [facility] [address] [place] [address] , [place], [address]. tel:[phone] Z [facility], [address], [place], [address], [place] tel:[phone] [facility] No Information 2 Adam Montgomery. [facility], [address], [place], [address], [place]. tel:[phone] Referring Provider: Ulises Medina, [facility] [address], [place], [address]. tel:[phone] Z [facility], [address], [place], [address], [place] tel:[phone] [facility] No Information 2 Adam Montgomery. [facility], [address], [place], [address], [place]. tel:[phone] Office/Outpa tient Visit,[facility], Mod Z [facility], [address], [place], [address], [place] tel:[phone] [facility] No Information 2 Adam Montgomery. [facility], [address], [place], [address], [place]. tel:[phone] Referring Provider: Ulises Medina, [facility] [address], [place], [address]. tel:[phone] Office/outpa tient visit,new, mod Z [facility], [address], [place], [address], [place] tel:[phone] [facility] No Information 1 Adam Montgomery. [facility], [address] [place], [address], [place]. tel:[phone] Referring Provider: Ulises Medina, [facility] [address], [place], [address]. tel:[phone] Family History Family Member Type Diagnosis Age At Onset Father Problem (finding) coronary arterioscleros is Father Problem (finding) raised blood lipids Mother Problem (finding) raised blood lipids Payers Payer name Insurance type Covered alliance party ID Mohamud arambula(s) [employer] [id number] Social History Type Description Quantity Date Captured [...]
--- OUTSIDE RECORDS SUMMARY | 2024-02-08 15:50 | XMS_ITS | Continuity of Care Document ---
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 It does not include entries that were removed or entered in error. 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 It does not include entries that were removed or entered in error. Substance Category Reaction Severity Reaction type Status Date Reported Comments Source AMBIEN (ZOLPIDEM TARTRATE) Drug allergy (disorder) Unknown active 9 [facility] [place] [place] [address] zolpidem Propensity to adverse reactions to substance Unknown Active 9 Ambulatory Pharmacy Immunizations Combined list of available immunizations from the Department of Defense and Veterans Affairs facilities. 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 Status Comments Source typhoid Vi capsular polysaccharid e vac 2021 [id number] 101 sanofi pasteur complet ed typhoid Vi capsular polysacch aride vac 04/21/21 Given Ambulat ory Pharmac y influenza, seasonal, injectable 2020 [id number] 141 complet ed influenza , seasonal, injectabl e 01/22/21 Given Ambulat ory Pharmac y COVID Vaccine Moderna 2020 [id number] complet ed COVID Vaccine Moderna 06/01/20 Given Ambulat ory Pharmac y COVID Vaccine Moderna 2020 [id number] 207 complet ed COVID Vaccine Moderna 05/07/20 Given Ambulat ory Pharmac y meningococcal A,C,Y,W-135 (MCV4P) 2019 [id number] 114 sanofi pasteur complet ed meningoco ccal A,C,Y,W-1 35 (MCV4P) 03/26/20 Given Ambulat ory Pharmac y tetanus-dipht h toxoids (Td) adult/adol 2019 [id number] 09 sanofi pasteur complet ed tetanus-d iphth toxoids (Td) adult/ado l 03/26/20 Given Ambulat ory Pharmac y influenza, seasonal, injectable 2019 [id number] 141 [employer] complet ed influenza , seasonal, injectabl e 12/27/19 Given Ambulat ory Pharmac y typhoid Vi capsular polysaccharid e vac 2018 [id number] 101 sanofi pasteur complet ed typhoid Vi capsular polysacch aride vac 03/27/19 Given Ambulat ory Pharmac y typhoid Vi capsular polysaccharid e vaccine 10 2018 [id number] 101 Sanofi Pasteur ([facility]) complet ed typhoid Vi capsular polysacch aride vaccine DoD influenza, injectable, quadrivalent 2018 [id number] 158 sanofi pasteur complet ed influenza , injectabl e, quadrival ent 01/01/19 Given Ambulat ory Pharmac y influenza, injectable, quadrivalent, contains preservative 1 2018 [id number] 158 Sanofi Pasteur ([facility]) complet ed influenza , injectabl e, quadrival ent, contains preservat sidra DoD influenza, injectable, quadrivalent 2017 [id number] 158 sanofi pasteur complet ed influenza , injectabl e, quadrival ent 12/20/17 Given Ambulat ory Pharmac y influenza, injectable, quadrivalent, contains preservative 1 2017 [id number] 158 Sanofi Pasteur ([facility]) complet ed influenza , injectabl e, quadrival ent, contains preservat sidra DoD influenza, injectable, quadrivalent 2016 [id number] 158 Gl[employer]SmithK[employer]s complet ed influenza , injectabl e, quadrival ent 03/23/17 Given Ambulat ory Pharmac y typhoid Vi capsular polysaccharid e vac 2016 [id number] 101 sanofi pasteur complet ed typhoid Vi capsular polysacch aride vac 03/23/17 Given Ambulat ory Pharmac y typhoid Vi capsular polysaccharid e vaccine 9 2016 [id number] 101 Sanofi Pasteur ([facility]) complet ed typhoid Vi capsular polysacch aride vaccine DoD influenza, injectable, quadrivalent, contains preservative 19 2016 [id number] 158 [facility] ([facility]B) complet ed influenza , injectabl e, quadrival ent, contains preservat sidra DoD anthrax vaccine 2016 [id number] 24 [employer] complet ed anthrax vaccine 09/01/16 Given Ambulat ory Pharmac y anthrax vaccine 6 2016 [id number] 24 [employer] [place] (MIP) complet ed anthrax vaccine DoD influenza, injectable, quadrivalent- pf 2015 [id number] 150 GlaxoSmithKli ne complet ed influenza , injectabl e, quadrival ent-pf 01/21/16 Given Ambulat ory Pharmac y Influenza, injectable, quadrivalent, preservative free 1 2015 [id number] 150 [facility] ([facility]) complet ed Influenza , injectabl e, quadrival ent, preservat sidra free DoD meningococcal A,C,Y,W-135 (MCV4P) 2014 [id number] 114 sanofi pasteur complet ed meningoco ccal A,C,Y,W-1 35 (MCV4P) 03/25/15 Given Ambulat ory Pharmac y meningococcal polysaccharid e (groups A, C, Y and W-135) diphtheria toxoid conjugate vaccine (MCV4P) 3 2014 [id number] 114 Sanofi Pasteur ([facility]) complet ed meningoco ccal polysacch aride (groups A, C, Y and W-135) diphtheri a toxoid conjugate vaccine (MCV4P) DoD influenza, seasonal, injectable-pf 2014 [id number] 140 [employer] complet ed influenza , seasonal, injectabl e-pf 01/01/15 Given Ambulat ory Pharmac y typhoid Vi capsular polysaccharid e vac 2014 [id number] 101 sanofi pasteur complet ed typhoid Vi capsular polysacch aride vac 01/01/15 Given Ambulat ory Pharmac y typhoid Vi capsular polysaccharid e vaccine 8 2014 X6601-2 101 Sanofi Pasteur ([facility]) complet ed typhoid Vi capsular polysacch aride vaccine DoD Influenza, seasonal, injectable, preservative free 17 2014 [id number] 140 [facility] [employer] (CSL) complet ed Influenza , seasonal, injectabl e, preservat sidra free DoD influenza, seasonal, injectable-pf 2013 [id number] 140 Unknown complet ed influenza , seasonal, injectabl e-pf 01/31/14 Given Ambulat ory Pharmac y Influenza, seasonal, injectable, preservative free 1 2013 140 Unknown (UNK) comple t ed Influenza , seasonal, injectabl e, preservat sidra free DoD anthrax vaccine 2013 [id number] 24 [employer] complet ed anthrax vaccine 01/01/14 Given Ambulat ory Pharmac y anthrax vaccine 5 2013 [id number] 24 [employer] [place] (MIP) complet ed anthrax vaccine DoD anthrax vaccine 2013 [id number] 24 [employer] complet ed anthrax vaccine 06/26/13 Given Ambulat ory Pharmac y anthrax vaccine 4 2013 [id number] 24 [employer] [place] (MIP) complet ed anthrax vaccine DoD measles/mumps /rubella virus vaccine 2013 [id number] 03 [employer] complet ed measles/m umps/rube lla virus vaccine 05/08/13 Given Ambulat ory Pharmac y measles, mumps and rubella virus vaccine 2 2013 [id number] 03 Merck (MSD) complet ed measles, mumps and rubella virus vaccine DoD influenza, seasonal, injectable 2012 [id number] 141 complet ed influenza , seasonal, injectabl e 01/15/13 Given Ambulat ory Pharmac y Influenza, seasonal, injectable 1 2012 141 Transcribed (TRS) complet ed Influenza , seasonal, injectabl e DoD yellow fever vaccine 2012 [id number] 37 sanofi pasteur complet ed yellow fever vaccine 12/24/12 Given Ambulat ory Pharmac y typhoid Vi capsular polysaccharid e vac 2012 K3630-9 101 sanofi pasteur complet ed typhoid Vi capsular polysacch aride vac 12/24/12 Given Ambulat ory Pharmac y yellow fever vaccine 1 2012 [id number] 37 Sanofi Pasteur ([facility]) complet ed yellow fever vaccine DoD typhoid Vi capsular polysaccharid e vaccine 1 2012 Z8316-2 101 Sanofi Pasteur ([facility]) complet ed typhoid Vi capsular polysacch aride vaccine DoD influenza, seasonal, injectable-pf 2011 [id number] 140 [employer] complet ed influenza , seasonal, injectabl e-pf 01/26/12 Given Ambulat ory Pharmac y Influenza, seasonal, injectable, preservative free 1 2011 [id number] 140 CS [employer] (CS) complet ed Influenza , seasonal, injectabl e, preservat sidra free DoD influenza, seasonal, injectable 2010 [id number] 141 sanofi pasteur complet ed influenza , seasonal, injectabl e 03/23/11 Given Ambulat ory Pharmac y Influenza, seasonal, injectable 1 2010 [id number] 141 Sanofi Pasteur ([facility]) complet ed Influenza , seasonal, injectabl e DoD typhoid Vi capsular polysaccharid e vac 2009 [id number] 101 sanofi pasteur complet ed typhoid Vi capsular polysacch aride vac 03/23/10 Given Ambulat ory Pharmac y typhoid Vi capsular polysaccharid e vaccine 1 2009 [id number] 101 Sanofi Pasteur ([facility]) complet ed typhoid Vi capsular polysacch aride vaccine DoD meningococcal A,C,Y,W-135 (MCV4P) 2009 [id number] 114 sanofi pasteur complet ed meningoco ccal A,C,Y,W-1 35 (MCV4P) 03/03/10 Given Ambulat ory Pharmac y tuberculin purified protein derivative 2009 [id number] 96 sanofi pasteur complet ed tuberculi n purified protein derivativ e 03/03/10 Given Ambulat ory Pharmac y tetanus, diphtheria, acellular pertu is 2009 [id number] 115 sanofi pasteur complet ed tetanus, diphtheri a, acellular pertussis 03/03/10 Given Ambulat ory Pharmac y influenza virus vaccine,split 2009 [id number] 15 sanofi pasteur complet ed influenza virus vaccine,s plit 03/03/10 Given Ambulat ory Pharmac y influenza virus vaccine, split virus (incl. purified surface antigen)-reti red CODE 1 2009 [id number] 15 Sanofi Pasteur ([facility]) complet ed influenza virus vaccine, split virus (incl. purified surface antigen)- retired CODE DoD meningococcal polysaccharid e (groups A, C, Y and W-135) diphtheria toxoid conjugate vaccine (MCV4P) 1 2009 [id number] 114 Sanofi Pasteur ([facility]) complet ed meningoco ccal polysacch aride (groups A, C, Y and W-135) diphtheri a toxoid conjugate vaccine (MCV4P) DoD tetanus toxoid, reduced diphtheria toxoid, and acellular pertu is vaccine, adsorbed 1 2009 [id number] 115 Sanofi Pasteur ([facility]) complet ed tetanus toxoid, reduced diphtheri a toxoid, and acellular pertussis vaccine, adsorbed DoD anthrax vaccine 2009 [id number] 24 [employer] complet ed anthrax vaccine 07/29/09 Given Ambulat ory Pharmac y anthrax vaccine 3 2009 [id number] 24 [employer] [place] ([facility]) complet ed anthrax vaccine DoD influenza virus vaccine, live 2008 [id number] 111 [employer] comple t ed influenza virus vaccine, live 03/04/09 Given Ambulat ory Pharmac y influenza virus vaccine, live, attenuated, for intranasal use 1 2008 [id number] 111 [employer] (MED) complet ed influenza virus vaccine, live, attenuate d, for intranasa l use DoD Novel influenza-H1N 1-09, injectable 2008 [id number] 127 Novartis Pharm[employer] ls complet ed Novel influenza -V5M4-49, injectabl e 01/21/09 Given Ambulat ory Pharmac y Novel influenza-H1N 1-09, injectable 1 2008 [id number] IA 127 Novartis [employer] l [place]. (NOV) complet ed Novel influenza -P3I4-11, injectabl e DoD hepatitis B adult vaccine 2008 [id number] 43 GlaxoSmithKli ne complet ed hepatitis B adult vaccine 10/02/08 Given Ambulat ory Pharmac y tetanus, diphtheria, acellular pertu is 2008 [id number] 115 sanofi pasteur complet ed tetanus, diphtheri a, acellular pertussis 10/02/08 Given Ambulat ory Pharmac y hepatitis B vaccine, adult dosage 3 2008 [id number] 43 [employer] (SKB) complet ed hepatitis B vaccine, adult dosage DoD tetanus toxoid, reduced diphtheria toxoid, and acellular pertu is vaccine, adsorbed 1 2008 [id number] 115 Sanofi Pasteur ([facility]) complet ed tetanus toxoid, reduced diphtheri a toxoid, and acellular pertussis vaccine, adsorbed DoD anthrax vaccine 2007 [id number] 24 [employer] complet ed anthrax vaccine 03/03/08 Given Ambulat ory Pharmac y anthrax vaccine 2 2007 [id number] 24 [employer] [place] ([facility]) complet ed anthrax vaccine DoD hepatitis [...] Ambulat ory Pharmac y anthrax vaccine 2007 [id number] 24 [employer] complet ed anthrax vaccine 02/06/08 Given Ambulat ory Pharmac y anthrax vaccine 1 2007 [id number] 24 [employer] [place] ([facility]) complet ed anthrax vaccine DoD typhoid vaccine, parenteral, other than acetone-kille d, dried 0 2007 [id number] 41 Sanofi Pasteur ([facility]) complet ed typhoid vaccine, parentera l, other than acetone-k illed, dried DoD influenza virus vaccine, live 2007 [id number] 111 [employer] comple t ed influenza virus vaccine, [...] live, attenuated, for intranasal use 1 2007 [id number] 111 [employer] (MED) complet ed influenza virus vaccine, live, attenuate d, for intranasa l use DoD influenza virus vaccine, live 2006 [id number] 111 [employer] comple t ed influenza virus vaccine, live 03/28/07 Given Ambulat ory Pharmac y influenza virus vaccine, live, attenuated, for intranasal use 1 2006 [id number] 111 [employer] (MED) complet ed influenza virus vaccine, live, attenuate d, for intranasa l use DoD influenza virus vaccine,split 2005 [id number] 15 sanofi pasteur complet ed influenza virus vaccine,s plit 03/23/06 Given Ambulat ory Pharmac y influenza virus vaccine, split virus (incl. purified surface antigen)-reti red CODE 1 2005 [id number] 15 Sanofi Pasteur ([facility]) complet ed influenza virus vaccine, split virus (incl. purified surface antigen)- retired CODE DoD typhoid vaccine, parenteral 2005 [id number] 41 sanofi pasteur complet ed typhoid vaccine, parentera l 01/26/06 Given Ambulat ory Pharmac y varicella virus vaccine 0 2005 21 () Not Given varicella virus vaccine DoD typhoid vaccine, parenteral, other than acetone-kille d, dried 1 2005 L1173-2 41 Sanofi Pasteur ([facility]) complet ed typhoid vaccine, parentera l, other than acetone-k illed, dried DoD influenza virus vaccine,split 2004 [id number] 15 sanofi pasteur complet ed influenza virus vaccine,s plit 03/02/05 Given Ambulat ory Pharmac y influenza virus vaccine, split virus (incl. purified surface antigen)-reti red CODE 1 2004 [id number] 15 Sanofi Pasteur ([facility]MC) complet ed influenza [...] DoD influenza virus vaccine, whole virus 2002 [id number] 16 sanofi pasteur complet ed influenza virus vaccine, whole virus 02/16/03 Given Ambulat ory Pharmac y influenza virus vaccine, whole virus 0 2002 [id number] 16 Sanofi Pasteur ([facility]) complet ed influenza virus vaccine, whole virus DoD tuberculin purified protein derivative 2001 [id number] 96 sanofi pasteur complet ed tuberculi n purified protein derivativ e 03/27/02 Given Ambulat ory Pharmac y influenza virus vaccine, whole virus 2001 [id number] 16 sanofi pasteur complet ed influenza virus vaccine, whole virus 03/27/02 Given Ambulat ory Pharmac y influenza virus vaccine, whole virus 0 2001 [id number] 16 Sanofi Pasteur ([facility]MC) complet ed influenza virus vaccine, whole virus DoD typhoid Vi capsular polysaccharid e vac 2001 [id number] 101 sanofi pasteur complet ed typhoid Vi capsular polysacch aride vac 05/02/01 Given Ambulat ory Pharmac y typhoid Vi capsular polysaccharid e vaccine 0 2001 [id number] 101 Sanofi Pasteur ([facility]) complet ed typhoid Vi capsular polysacch aride vaccine DoD influenza virus vaccine, whole virus 2000 [id number] 16 sanofi pasteur complet ed influenza virus vaccine, whole virus 02/28/01 Given Ambulat ory Pharmac y influenza virus vaccine, whole virus 0 2000 [id number] 16 Sanofi Pasteur ([facility]) complet ed influenza virus vaccine, whole virus DoD influenza virus vaccine, whole virus 1999 [id number] 16 Unknown complet ed influenza virus vaccine, whole virus 03/23/00 Given Ambulat ory Pharmac y influenza virus vaccine, whole virus 0 1999 [id number] 16 Other (OTH) complet ed influenza virus vaccine, whole virus DoD yellow fever vaccine 1999 [id number] 37 sanofi pasteur complet ed yellow fever vaccine 04/28/99 Given Ambulat ory Pharmac y typhoid vaccine, parenteral 1999 [id number] 41 sanofi pasteur complet ed typhoid vaccine, parentera l 04/28/99 Given Ambulat ory Pharmac y yellow fever vaccine 0 1999 [id number] 37 Sanofi Pasteur ([facility]) complet ed yellow fever vaccine DoD typhoid vaccine, parenteral, other than acetone-kille d, dried 0 1999 [id number] 41 Sanofi Pasteur ([facility]) complet ed typhoid vaccine, parentera l, other than acetone-k illed, dried DoD hepatitis A adult vaccine 1998 [id number] 52 [employer] Inc complet ed hepatitis A adult vaccine 03/04/99 Given Ambulat ory Pharmac y hepatitis A vaccine, adult dosage 2 1998 [id number] 52 Merck (MSD) complet ed hepatitis A vaccine, adult dosage DoD influenza virus vaccine, whole virus 1998 [id number] 16 [facility] complet ed influenza virus vaccine, whole virus 01/28/99 Given Ambulat ory Pharmac y influenza virus vaccine, whole virus 0 1998 [id number] 16 [facility] ([facility] complet ed influenza virus vaccine, whole virus DoD poliovirus vaccine, live, oral 1998 [id number] 02 [facility] pol[facility], live, oral 09/01/98 Given Ambulat ory Pharmac y hepatitis A adult vaccine 1998 [id number] 52 [employer] Inc complet ed hepatitis A adult vaccine 09/01/98 Given Ambulat ory Pharmac y trivalent poliovirus vaccine, live, oral 0 1998 [id number] 02 [facility] ([facility]) comple t ed trivalent polioviru s vaccine, live, oral DoD hepatitis A vaccine, adult dosage 1 1998 [id number] 52 Merck (MSD) complet ed hepatitis A vaccine, adult dosage DoD tuberculin purified protein derivative 1998 [id number] 96 [facility] complet ed tuberculi n purified protein derivativ e 08/25/98 Given Ambulat ory Pharmac y meningococcal polysaccharid e (MPSV4) 19984599 [id number] 32 [facility] complet ed meningoco ccal polysacch aride (MPSV4) 08/25/98 Given Ambulat ory Pharmac y influenza virus vaccine, whole virus 19988069 [id number] 16 [employer] complet ed influenza virus vaccine, whole virus 08/25/98 Given Ambulat ory Pharmac y tetanus-dipht h toxoids (Td) adult/adol [id number] 09 [facility]-d iphth toxoids (Td) adult/ado l 08/25/98 Given Ambulat ory Pharmac y tetanus and diphtheria toxoids, adsorbed, preservative free, for adult use (2 Lf of tetanus toxoid and 2 Lf of diphtheria toxoid) 0 [id number] [id number] 09 [facility] (CON) complet ed tetanus and diphtheri a toxoids, adsorbed, preservat sidra free, for adult use (2 Lf of tetanus toxoid and 2 Lf of diphtheri a toxoid) DoD influenza virus vaccine, whole virus 0 19984597 [id number] 16 [employer] ([facility]) complet ed influenza virus vaccine, whole virus DoD meningococcal polysaccharid e vaccine (MPSV4) 0 19981303 [id number] 32 [place] (CON) complet ed meningoco ccal polysacch aride vaccine (MPSV4) DoD measles/mumps /rubella virus vaccine 1998 03 Unknown complet ed measles/m umps/rube lla virus vaccine 08/12/98 Given Ambulat ory Pharmac y measles, mumps and rubella virus vaccine 0 1998 03 Unknown (UNK) comple t ed measles, mumps and rubella virus vaccine DoD poliovirus vaccine, live, oral 1994 [id number] 02 [employer] [facility] complet ed polioviru s vaccine, live, oral 09/01/94 Given Ambulat ory Pharmac y trivalent poliovirus vaccine, live, oral 0 1994 [id number] 02 [facility] ([facility]) comple t ed trivalent polioviru s vaccine, live, oral [facility] Results Combined list of recent chemistry, hematology [...] Prevention' s HIV diagnostic algorithm. Refer to [facility] Lab Guide for additional information : [email or web address] x Testing performed by [...] Date Status Disposition Source Theater Facility OUTPATIENT [id number] 02/01 Released w/o Limitations [facility] Fac[facility] Theater Facility OUTPATIENT [id number] Theater Provider 12/13 Released w/o Limitations [facility] OUTPATIENT [id number] Theater Provider 12/16 Released w/o Limitations Theater [facility] Theater Facility OUTPATIENT [id number] Theater Provider 01/21 Released w/o Limitations Theater Fac[facility] y Theater Facility OUTPATIENT [id number] Theater Provider 02/03 Released w/o Limitations Theater Facilit y [place] [facility] [place] [address](AFN G [address] Med Sq-FM) OUTPATIENT [id number] SAGAR DOMINGUEZ 03/23 [facility]ased w[facility] Limitations [facility] [place] [place] [address](A FNG [address] Med Sq-FM) [facility] [place] [address](AFN G 133 Med Sq-FM) OUTPATIENT [id number] Notes Entered by: Graciela LOVE 03 Oct 2017 0906 ------- ------- ------- ------- -- RACHEL BAJWA 10/03 [facility]ased w[facility] Limitations [facility] [place] [place] [address](A FNG [address] Med Sq-FM) [id number] MDG Outpatient [id number] KARMEN ALINA 03/26 Discharge Disposition: Home or Self Care [id number] MDG Procedures Combined list of: 1) Procedures from [facility] facilities [facility], not all [place] non-surgical procedures are included; 2) All procedures [...] Plan No data available for this section 02/08/2024 Ambulatory Pharmacy Functional Status Combined list of recent functional and cognitive assessments recorded at Department of Defense and Veterans Affairs (VA).VA Functional [place] Measurement (FIM) Scale: 1 = Total Assistance (Subject = 0% +), 2 = Maximal Assistance (Subject = 25% +), 3 = Moderate Assistance (Subject = 50% +), 4 = Minimal Assistance (Subject = 75% +), 5 = Supervision, 6 = Modified [place] (Device), 7 = Complete [place] (Timely, Safely). Assessment Date/Time Source Assessment Type Assessment Skill Assessment Score Assessment Details No data available for this section
--- OUTSIDE RECORDS SUMMARY | 2024-02-08 15:50 | XMS_ITS | Clinical Summary ---
Author Organization [facility] Address [address] [place] [address] Care Team Providers Care Frothing Machine Operator Name Role Phone Medardo Graf MD Primary Care Provider [phone] Umu Duke MD Unavailable [phone] Allergies Active Allergy Reactions Criticality Noted Date Comments Zolpidem Tartrate 04/17/2011 blacks out but doesn't fall asleep Medications valACYclovir (VALTREX) 500 MG tablet 12/30/19 18 Active levothyroxine (SYNTHROID/LEVO THROID) 50 MCG tablet 50 mcg daily 04/09/20 19 Active norgestrel-ethi nyl estradiol (LO/OVRAL) 0.3-30 MG-MCG tablet Take 1 tablet by mouth 03/15/20 20 Active liothyronine (CYTOMEL) 25 MCG tablet Take 25 mcg by mouth daily Active spironolactone (ALDACTONE) 50 MG tablet Take 50 mg by mouth 2 times daily Active hydrocortisone (ANUSOL-HC) 25 MG suppositoryIndi cations:Externa l hemorrhoids Place 1 suppository (25 mg) rectally 2 times daily 24 suppository 11/10/19 24 Active hydrocortisone, Perianal, (HYDROCORTISONE ) 2.5 % creamIndication s:External hemorrhoids Place rectally 2 times daily as needed for hemorrhoids 30 g 11/10/19 24 Active Active Problems Problem Noted Date Diagnosed Date Submucous leiomyoma of uterus 06/15/2020 Overview (06/15/2020): Added automatically from request for surgery [id number] Vaginal delivery 04/28/2012 Labor and delivery, indication for care 04/25/19 13 Uterine contractions or other obstetric complain ts 04/08/2012 Head ache 11/04/2011 Encounters Date Type Department Care Team Description 02/06/2024 Transcribe Orders [facility] [address] [place] [id number] Provider, Generic External Data Lung nodule (Primary Dx) 01/29/2024 Telephone [facility] [address] [address] Noelle Khan MD Appointment 01/28/2024 MyC Medical Advice Initial Department [facility] 11/10/2023 11:00 AM CDT Office Visit [facility] [address] [place] [address] Nano Carey MD External hemorrhoids (Primary Dx); Thrombosed external hemorrhoids 11/10/2023 Travel from Last 3 Months Immunizations Name Administration Dates Next Due Influenza [...] School Help Needed Not on file 01/05 Comments No Sex and Gender Information Value Date Recorded Sex Assigned at Not on file Legal Sex Female 4:41 AM GETTERING OPERATOR Gender Identity Not on file Sexual Orientation Not on file Last Filed Vital Signs Vital Sign Reading Time Taken Comments Blood Pressure 102/76 11/10/2023 10:17 AM CDT Pulse 80 11/10/2023 10:17 AM CDT Temperature 36.9 ??C (98.5 ??F) 11/10/2023 10:17 AM C DT Respiratory Rate 18 05/26/2023 7:30 AM GETTERING OPERATOR Oxygen Saturation 100% 11/10/2023 10:17 AM CDT Inhaled Oxygen Concentration - - Weight 79.4 kg (175 lb) 11/10/2023 10:17 AM CDT Height 167.6 cm (5' 6) 05/26/2023 5:15 AM GETTERING OPERATOR Body Mass Index 28.25 05/26/2023 5:15 AM GETTERING OPERATOR Plan of Treatment Health Maintenance Due Date Last Done Comments ADVANCE CARE PLANNING 1978 ANNUAL REVIEW OF HM ORDERS 1978 CT COLONOGRAPHY 1978 FIT 1978 FLEX SIG 1978 TSH W/FREE T4 REFLEX 1978 sDNA (Cologuard) 1978 COLONOSCOPY 1988 COLORECTAL CANCER SCREENING 1988 HEPATITIS C SCREENING 1996 YEARLY PREVENTIVE VISIT 02/28/2021 02/29/2020, 02/28 LIPID 03/19/2023 03/19/2018 PHQ-2 (once per calendar year) 2023 06/01/2020, 06/01/2020, 05/12/2020, Additional history exists COVID-19 Vaccine ( season) 2023 06/01/2020, 05/07/2020 INFLUENZA VACCINE (#1) 2023 , 12/27/2019, 12/27/2019, Additional history exists MAMMO SCREENING 06/06/2025 06/06/2023, 05/16, 11/01/2020, Additional history exists PAP 10/24/2025 10/24/2022, 02/12, 02/29/2020 GLUCOSE 05/26/2026 05/26/2023, 02/12, 07/11/2020, Additional history exists DTAP/TDAP/TD IMMUNIZATION (5 - Td or Tdap) 03/26/2030 03/26/2020, 03/03/2010, 10/02/2008, Additional history exists RSV VACCINE (1 - 1-dose 75+ series) 2053 HEPATITIS B IMMUNIZATION Completed 009, 02/09/2008, 01/01/2008 [...] BASIC METABOLIC PANEL STAT 05/26/2023 5:46 AM GETTERING OPERATOR LIPID PROFILE Routine 03/19/2018 HIV 1 AND 2 ANTIBODY (QUEST) Routine 09/23/2011 from Last 3 Months or Most Recently Relevant to Health Maintenance Results * Basic metabolic panel (05/26/2023 5:46 AM GETTERING OPERATOR) Sodium 139 135 - 145 mmol/L 05/26/2023 6:18 AM GETTERING OPERATOR [facility] Comment:Reference intervals for this test were updated on 01/07/2023 to more accurately reflect our healthy population. There may be differences in the flagging of prior results with similar values performed with this method. Interpretation of those prior results can be made in the context of the updated reference intervals. Potassium 4.1 3.4 - 5.3 mmol/L 05/26/2023 6:18 AM GETTERING OPERATOR [facility] Chloride 101 98 - 107 mmol/L 05/26/2023 6:18 AM GETTERING OPERATOR [facility] Carbon Dioxide (CO2) 27 22 - 29 mmol/L 05/26/2023 6:18 AM GETTERING OPERATOR [facility] Anion Gap 11 7 - 15 mmol/L 05/26/2023 6:18 AM GETTERING OPERATOR LABORATORY Urea Nitrogen 9.0 6.0 - 20.0 mg/dL 05/26/2023 6:18 AM [facility] Creatinine 0.82 0.51 - 0.95 mg/dL 05/26/2023 6:18 AM GETTERING OPERATOR LABORATORY GFR Estimate 89 >60 mL/min/1. 73m2 05/26/2023 6:18 AM [facility] Calcium 9.5 8.6 - 10.0 mg/dL 05/26/2023 6:18 AM [facility] Glucose 96 70 - 99 mg/dL 05/26/2023 6:18 AM GETTERING OPERATOR LABORATORY Blood BLOOD SPECIMEN / Unknown Venipuncture / Unknown 05/26/2023 5:46 AM GETTERING OPERATOR 05/26/2023 5:55 AM GETTERING OPERATOR us Allen Ayon MD LAB - BLOOD ORDERABLES F inal Result LABORATORY [facility] [address] Lab (1st floor, no room number) [place] [address], [place] [phone] * (ABNORMAL) Lipid Profile (03/19/2018) Pathologist [facility] Cholesterol 239(A) 90 - 200 mg/dL [facility] Triglycerides 114 40 - 197 mg/dL [facility] HDL Cholesterol 83 >=50 mg/dL [facility] LDL Cholesterol Calculated 133(A) <100 mg/dL [facility] Blood specimen (specimen) 03/19/2018 Narrative [facility] - 03/19/2018 LAB RESULT [facility] us Provider Outside LAB - BLOOD ORDERABLES Final Re sult [facility] [address] [place] [address], [facility] [phone] * HIV 1 and 2 Antibody (09/23/2011) Pathologist [facility] HIV-1 & HIV-2 Antibody HIV 1&2 Antibody non reactive Blood specimen (specimen) us Patient Reported LAB - BLOOD ORDERABLES Final Re sult from Last 3 Months or Most Recently Relevant to Health Maintenance Insurance [facility] [employer] EMPLOYEE PRO[employer] [facility] EM[employer]EE PROGRAM [employer] [facility] EMPL[employer]EE PROGRAM Care Teams Frothing Machine Operator Relationship Specialty Start Date End Date Medardo Graf MD PCP - General Family Practice 11/15/18 Umu Duke MD [address] [facility] [address] [place] [address] magazine worker 03/16/20
--- OUTSIDE RECORDS SUMMARY | 2024-02-08 15:50 | XMS_ITS | Encounter Summary ---
Author Organization [facility] Address [address] [place] [address] Care Team Providers Care Fur Feeder Name Role Phone Medardo Graf MD Primary Care Provider [phone] Umu Duke MD Unavailable [phone] Reason for Visit * Reason Onset Date Comments Appointment 01/29/2024 Encounter Details Date Type Department Care Team (Late st Contact Info) Description 01/29/2024 Telephone [facility] [address] [address] Noelle Khan MD [address] [id number] Appointment Social History Tobacco Use Types Packs/Day Years [...] on file Legal Sex Female 4:41 AM HEMATOLOGY ONCOLOGY CONSULTANT Gender Identity Not on file Sexual Orientation Not on file documented as of this encounter Miscellaneous Notes * Telephone Encounter - Eli Jeronimo - 01/29/2024 8:55 AM CDT [facility] Phone Message May a detailed message be left on voicemail: yes Reason for Call: Other: Pt was seen in 2020 for pulmonary nodules. Pt would like to be seen as she feels her symptoms are back. Pt would also like to get a CT completed as well. Pt would like to get scheduled soon as her symptoms are getting worse. Pt would like a call back at ph: [phone]. Action Taken: Message routed to: [facility] Pulm Travel Screening: Not Applicable Date of Service: 01/28 documented in this encounter Plan of Treatment Not on file documented as of this encounter Visit Diagnoses Not on filedocumented in this encounter Additional Health Concerns Assessment Noted Time PHQ-9 Depression Total Score: 2 06/01/19 21 1:03 PM HEMATOLOGY ONCOLOGY CONSULTANT documented as of this encounter Care Teams Fur Feeder Relationship Specialty Start Date End Date Medardo Graf MD PCP - General Family Practice 11/15/18 Umu Duke MD [address] [address] continuous miner operator 03/16/20 documented as of this encounter
--- OUTSIDE RECORDS SUMMARY | 2024-02-08 15:50 | XMS_ITS | Encounter Summary ---
Author Organization [facility] Address [address] [place] [address] Care Team Providers Care Production Support Developer Name Role Phone Needs Pcp, Assignment Primary Care Provider [phone] Encounter Details Date Type Department Care Team [...] documented as of this encounter Care Teams Production Support Developer Relationship Specialty Start Date End Date Needs Pcp, [place] [address] PCP - General 08/12/14 documented as of this encounter
--- OUTSIDE RECORDS SUMMARY | 2024-02-08 15:50 | XMS_ITS | Encounter Summary ---
Author Organization [facility] Address [address] [place] [address]. [place] [address] Care Team Providers Care Video Conference Specialist Name Role Phone Medardo Graf MD Primary Care Provider Umu Duke MD Unavailable [phone] Reason for Referral * Consultation (Routine) - Pending Review Specialty Diagnoses / Procedures Referred By Hiram viveros Referred To Contact Medical Oncology Diagnoses Lung nodule Self, Referred, fax: Referral ID Status Reason Start Date Expiration Date V isits Requested Visits Authorized [id number] Pending Review 02/06/2024 02/05/2025 1 1 Question Answer My Clinical Question Is: DX: Lung Nodule Reason for Referral: Interventional Pulmonary (Lung nodule) Scheduling Instructions: [employer] will call you to coordinate your care as prescribed by the provider. If you don? t hear from a employee representative within 2 business days, please call Additional Information: PT CALLED/ DX: Lung Nodule Comments PT CALLED - Pt previously called on 01/28 (review chart communication) but hasn't heard back since. DX: Lung Nodule Pt would like a CT scan. Pt states that she is also experiencing some symptoms and is unsure if it is related to the nodule. Pt is having shoulder pain and when laying down, pt has difficulty breathing. Records within [facility] Please be aware that coverage of these services is subject to the terms and limitations of your health insurance plan. Call member services at your health plan with any benefit or coverage questions. [facility] will call you to coordinate your care as prescribed by the provider. If you don? t hear from a employee representative within 2 business days, please call Encounter Details Date Type Department Care Team (Late st Contact Info) Description 02/06/2024 Transcribe Orders [facility] [address] [place] [address] Provider, Generic External Data Lung nodule (Primary Dx) Social History Tobacco Use Types [...] on file Legal Sex Female 4:41 AM OFFICE CASHIER Gender Identity Not on file Sexual Orientation Not on file documented as of this encounter Plan of Treatment Scheduled Referrals Name Type Priority Associated Diagnoses Orde r Schedule Adult Hematology & Oncology Brim Ironer Hand Referral Referral Routine: Next available opening Lung nodule Ordered: 02/06/2024 documented as of this encounter Visit Diagnoses Diagnosis Lung nodule- Primary Solitary pulmonary nodule documented in this encounter Additional Health Concerns Assessment Noted Time PHQ-9 Depression Total Score: 2 06/01/19 21 1:03 PM OFFICE CASHIER documented as of this encounter Care Teams Video Conference Specialist Relationship Specialty Start Date End Date Medardo Graf MD PCP - General Family Practice 11/15/18 Umu Duke MD [address] [place] [address] infection control preventionist 03/16/20 documented as of this encounter
--- OUTSIDE RECORDS SUMMARY | 2024-02-08 15:50 | XMS_ITS | Referral Summary ---
Author Organization [facility] Address [address] [place] [address]. [place] [address] Care Team Providers Care Tripe Cooker Name Role Phone Medardo Graf MD Primary Care Provider [phone] Umu Duke MD Unavailable [phone] Encounters Date Type Department Care Team Description 02/06/[address] [facility] [address] [place] [address] Provider, Generic External Data Lung nodule (Primary Dx) 01/29/2024 Telephone [facility] [address] [address] Noelle Khan MD Appointment 01/28/2024 MyC Medical Advice [facility] 11/10/2023 Travel 11/10/2023 11:00 AM CDT Office Visit [facility] [place] [facility] [address] [place] [address] Nano Carey MD External hemorrhoids (Primary Dx); Thrombosed external hemorrhoids from Last 3 Months Allergies Active Allergy Reactions Criticality Noted Date [...] (06/15/2020): Added automatically from request for surgery [id number] Vaginal delivery 04/28/2012 Labor and delivery, indication [...] on file Legal Sex Female 4:41 AM ORGANISATIONAL PSYCHOLOGIST Gender Identity Not on file Sexual Orientation Not on file Last Filed Vital Signs Vital Sign Reading Time Taken Comments Blood Pressure 102/76 11/10/2023 10:17 AM CDT Pulse 80 11/10/2023 10:17 AM CDT Temperature 36.9 ??C (98.5 ??F) 11/10/2023 10:17 AM C DT Respiratory Rate 18 05/26/2023 7:30 AM ORGANISATIONAL PSYCHOLOGIST Oxygen Saturation 100% 11/10/2023 10:17 AM CDT Inhaled Oxygen Concentration - - Weight 79.4 kg (175 lb) 11/10/2023 10:17 AM CDT Height 167.6 cm (5' 6) 05/26/2023 5:15 AM ORGANISATIONAL PSYCHOLOGIST Body Mass Index 28.25 05/26/2023 5:15 AM ORGANISATIONAL PSYCHOLOGIST Plan of Treatment Not on file Procedures Procedure Name Priority Date/Time Associated Diagnosis Comments BASIC METABOLIC PANEL STAT 05/26/2023 5:46 AM ORGANISATIONAL PSYCHOLOGIST LIPID PROFILE Routine 03/19/2018 HIV 1 AND 2 ANTIBODY (QUEST) Routine 09/23/2011 from Last 3 Months or Most Recently Relevant to Health Maintenance Results * Basic metabolic panel (05/26/2023 5:46 AM ORGANISATIONAL PSYCHOLOGIST) [facility] Sodium 139 135 - 145 mmol/L 05/26/2023 6:18 AM ORGANISATIONAL PSYCHOLOGIST [facility] Comment:Reference intervals for this test were updated on 01/07/2023 to more accurately reflect our healthy population. There may be differences in the flagging of prior results with similar values performed with this method. Interpretation of those prior results can be made in the context of the updated reference intervals. Potassium 4.1 3.4 - 5.3 mmol/L 05/26/2023 6:18 AM ORGANISATIONAL PSYCHOLOGIST [facility] Chloride 101 98 - 107 mmol/L 05/26/2023 6:18 AM ORGANISATIONAL PSYCHOLOGIST [facility] Carbon Dioxide (CO2) 27 22 - 29 mmol/L 05/26/2023 6:18 AM ORGANISATIONAL PSYCHOLOGIST [facility] Anion Gap 11 7 - 15 mmol/L 05/26/2023 6:18 AM ORGANISATIONAL PSYCHOLOGIST [facility] Urea Nitrogen 9.0 6.0 - 20.0 mg/dL 05/26/2023 6:18 AM ORGANISATIONAL PSYCHOLOGIST [facility] Creatinine 0.82 0.51 - 0.95 mg/dL 05/26/2023 6:18 AM ORGANISATIONAL PSYCHOLOGIST LABORATORY GFR Estimate 89 >60 mL/min/1. 73m2 05/26/2023 6:18 AM ORGANISATIONAL PSYCHOLOGIST LABORATORY Calcium 9.5 8.6 - 10.0 mg/dL 05/26/2023 6:18 AM ORGANISATIONAL PSYCHOLOGIST LABORATORY Glucose 96 70 - 99 mg/dL 05/26/2023 6:18 AM ORGANISATIONAL PSYCHOLOGIST LABORATORY Blood BLOOD SPECIMEN / Unknown Venipuncture / Unknown 05/26/2023 5:46 AM ORGANISATIONAL PSYCHOLOGIST 05/26/2023 5:55 AM ORGANISATIONAL PSYCHOLOGIST Allen Ayon MD LAB - BLOOD ORDERABLES F inal Result LABORATORY [facility] [address] Lab (1st floor, no room number) [place] [address], [facility] [phone] * (ABNORMAL) Lipid Profile (03/19/2018) Cholesterol 239(A) 90 - 200 mg/dL [facility] Triglycerides 114 40 - 197 mg/dL [facility] HDL Cholesterol 83 >=50 mg/dL [facility] LDL Cholesterol Calculated 133(A) <100 mg/dL [facility] Blood specimen (specimen) 03/19/2018 Narrative [facility] - 03/19/2018 LAB RESULT [facility] us Provider Outside LAB - BLOOD ORDERABLES Final Re sult [facility] [address] [place] [address], [facility] [phone] * HIV 1 and 2 Antibody (09/23/2011) HIV-1 & HIV-2 Antibody HIV 1&2 Antibody non reactive Blood specimen (specimen) Patient Reported LAB - BLOOD ORDERABLES Final Re sult from Last 3 Months or Most Recently Relevant to Health Maintenance Insurance [facility] FED[employer]AL EMPLOYEE PROGRAM [facility] EM[employer]EE PRO[employer] [facility] [employer]EE [employer] Care Teams Tripe Cooker Relationship Specialty Start Date End Date Medardo Graf MD PCP - General Family Practice 11/15/18 Umu Duke MD [address] [place] [address] transfer and pumphouse operator 03/16/20
--- OUTSIDE RECORDS SUMMARY | 2024-02-08 15:50 | XMS_ITS | Clinical Summary ---
[facility] Address [address], [place] [address] Care Team Providers Care Program Director/Air Personality Name Role Phone Needs Pcp, Assignment Primary Care Provider [phone] Source Comments You are receiving this document as you are listed as the primary care provider,follow-up provider, or the patient has been referred to you for consultation.This is in compliance with the Medicare and[facility] EHR Incentive Program,which states Providers who transition their patient to another setting of careor provider of care or refers their patient to another provider of care shouldprovide summary care record for each transition of care or referral. 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 Resolved Problems Problem Noted Date Diagnosed Date Resolved Date Generalized headaches 11/04/20112015 Encounter for supervision of normal in multigravida 09/23/2011 06/09/2015 Overview (12/04/2016): Supervision of normal subsequent Dysmenorrhea 10/09/2010 06/09/2015 Overview (11/16/2015): LW Onset: 04/2010 Herpes simplex virus (HSV) infection 05/24/2009 02/29/2020 Overview (12/04/2016): LW Onset: 1987 ; Herpes Simplex NOS Contraceptive management 05/24/2009 Overview (12/04/2016): LW Onset: 05/2009 ; Contraceptive Management NOS Immunizations Name Administration Dates Next Due Flu Vac Preserv Free (3+yrs) 01/26/2011 Influenza IIV4 (Quadrivalent) 0.5mL (55483) 07/2012 Td 04/12/2004 Family History Medical History [...] DT Respiratory Rate 16 04/28/2020 3:39 PM NATIONAL SERVICE OFFICER Oxygen Saturation 100% 04/28/2020 3:39 PM NATIONAL SERVICE OFFICER Inhaled Oxygen Concentration - - Weight 83.9 [...] Adult Preventive Visit 02/28/2021 02/29/2020 COVID-19 Vaccine (1 - 2023- season) 2023 Influenza (#1) 2023 01/22/2021, 12/13, 01/01/2019, Additional history exists Mammogram 06/06/2024 06/06/2023, [...] patient's age to complete this topic RSV Aged Out No longer eligi ble based [...] SOLITARIO W CAD Routine 06/06/2023 1:38 PM NATIONAL SERVICE OFFICER PAP TEST Routine 02/29/2020 4:22 PM NATIONAL SERVICE OFFICER Encounter for gynecological examination without abnormal finding Screening for malignant neoplasm of cervix CHOLESTEROL, TOTAL AND HDL Routine 02/29/2020 4:12 PM NATIONAL SERVICE OFFICER Lipid screening COLONOSCOPY Routine 09/07/2013 8:01 AM CDT Nonspecific (abnormal) findings on radiological and other examination of gastrointestinal tract HIV ANTIBODY Routine 09/23/2011 8:32 AM CDT Special screening examination for other specified viral diseases Screening examination for venereal disease HEPATITIS C ANTIBODY, WITH REFLEX Routine 05/24/2009 5:10 PM NATIONAL SERVICE OFFICER from Last 3 Months or Most Recently Relevant to Health Maintenance Results * MM Mammogram Screening Bilat W Implants W 3D Solitario W CAD (06/06/2023 1:38 PM NATIONAL SERVICE OFFICER) Anatomical Region Laterality Modality Breast Bilateral Mammography Impressions 06/06/2023 1:49 PM NATIONAL SERVICE OFFICER : ACR BI-RADS Category 2: Benign RECOMMENDATION: Follow Up Imaging in 12 months - Bilateral The results and recommendations of this examination will be communicated to the patient. Narrative 06/06/2023 1:49 PM NATIONAL SERVICE OFFICER MM MAMMOGRAM SCREENING BILAT W IMPLANTS W [...] evidence of malignancy. ?? Jessica Salgado APRN, WAREHOUSE ORDER PULLER RAD CHEL * PAP Test (02/29/2020 4:22 PM NATIONAL SERVICE OFFICER) Case Report Pap ? Case: [id number] ? Authorizing Provider: ??Lillian Holbrook, LAND DEVELOPMENT PROJECT MANAGER, CNM ??Collected: ? 02/29/2020 1622 ? Ordering Location: ? [facility] ? Received: ?02/29/2020 1649 ? Services-VETERAN APPEALS REVIEWER ? First Screen: ?Mojgan Cool CT (ASCP) ? Specimen: ?Pap Test, Routine, Cervix/Endocervix ? 03/14/2020 9:37 AM NATIONAL SERVICE OFFICER [facility] Pap Specimen Adequacy Satisfactory for evaluation, endocervical/gottlieb sformation zone component present. 03/14/2020 9:37 AM NATIONAL SERVICE OFFICER [facility] Pap Interpretation Negative for intraepithelial lesion or malignancy (NILM). 03/14/2020 9:37 AM NATIONAL SERVICE OFFICER [facility] Pap Disclaimer The Pap test is a screening test designed to aid in the detection of cervical cancer and its precursor lesions. It is not a diagnostic procedure and should not be used as the sole means of detecting cervical cancer. Both false-positive and false-negative results may occur. 03/14/2020 9:37 AM NATIONAL SERVICE OFFICER [facility] Gross Description The specimen is received in SurePath fixative and properly labeled. 1 Pap-stained SurePath slide is prepared. 03/14/2020 9:37 AM NATIONAL SERVICE OFFICER [facility] Embedded Images 0 9:37 AM NATIONAL SERVICE OFFICER [facility] Other Specimen Type ENTIRE ENDOCERVIX / Unknown 02/29/2020 4:22 PM NATIONAL SERVICE OFFICER 02/29/2020 4:49 PM NATIONAL SERVICE OFFICER Comment:LMP: Patient's last menstrual period was 02/08/2020. Lillian Holbrook APRN, CNM LAB PATHOLOGY Performing Organization Address [facility] de Phone Number [facility] [address] * (ABNORMAL) Cholesterol, Total & HDL [CHS] (02/29/2020 4:12 PM NATIONAL SERVICE OFFICER) Cholesterol 206(H) 0 - 199 mg/dL 03/01/2020 12:53 PM [facility] HDL Cholesterol 64 >=40 mg/dL 0 12:53 PM [facility] Non HDL Chol, Calculated 142 mg/dL 03/01/2020 12:53 PM [facility] Blood Venipuncture / Unknown 02/29/2020 4:12 PM NATIONAL SERVICE OFFICER 02/29/2020 4:12 PM NATIONAL SERVICE OFFICER Lillian Holbrook APRN, CNM LAB_1 Performing Organization Address [facility] de Phone Number [facility] [address] [place] [address] [phone] * COLONOSCOPY [[id number]] (09/07/2013 8:01 AM CDT) 09/07/2013 8:01 AM CDT Narrative GI ([facility]) - 09/07/2013 8:29 AM CDT Indications: ? Abdominal pain, Hematochezia, Melena, bloating Providers: ? Chapo Sood MD, Chela Lopez RN Referring MD: ? Medicines: ? Exactacaine Newport 2 doses, Fentanyl IV 100 mcgs, ? [...] Procedure Code(s): ?? --- Professional --- ? 66766, Esophagogastroduodenoscopy, flexible, ? transoral; with biopsy, single or multiple Diagnosis Code(s): ?? --- Professional --- ? 789.00, Abdominal pain, unspecified site ? 578.1, Blood in stool CPT copyright 2013 [employer]. All rights reserved. The codes documented in this report are preliminary and upon interventional tech review may be revised to meet current compliance requirements. Attending Participation: Chapo Sood MD 09/07/2013 8:29 AM This report has been signed electronically. Number of Addenda: 0 Note Initiated On: 09/07/2013 8:01 AM Procedure Note Chapo Sood MD - 09/07/2013 Indications: Abdominal pain, Hematochezia, Melena, bloating Providers: Chapo Sood MD, Chela Lopez, LEELA Referring MD: Medicines: Exactacaine Newport 2 doses, Fentanyl IV 100 mcgs, Versed/Midazolam [...] care physician. Procedure Code(s): --- Professional --- 31284, Esophagogastroduodenoscopy, flexible, transoral; with biopsy, single or multiple Diagnosis Code(s): --- Professional --- 789.00, Abdominal pain, unspecified site 578.1, Blood in stool CPT copyright 2013 [employer]. All rights reserved. The codes documented in this report are preliminary and upon interventional tech review may be revised to meet current compliance requirements. Attending Participation: Chapo Sood MD 09/07/2013 8:29 AM This report has been signed electronically. Number of Addenda: 0 Note Initiated On: 09/07/2013 8:01 AM Chapo Sood MD [facility] ([facility]) [place], [place] * HIV ANTIBODY (09/23/2011 8:32 AM CDT) HIV 1/HIV 2 Non-React Non-Reacti ve HP CONVERSION 09/23/2011 8:32 AM CDT 09/23/2011 11:48 AM CDT Sonja Dalton APRN, WAREHOUSE ORDER PULLER LAB_1 HP CONVERSION * Hepatitis C Antibody, with Reflex (05/24/2009 5:10 PM NATIONAL SERVICE OFFICER) Hepatitis C Antibody Non Reac Non Reac HP CONVERSION 05/24/2009 5:10 PM NATIONAL SERVICE OFFICER Amanda Stockton APRN, WAREHOUSE ORDER PULLER LAB_1 HP CONVERSION from Last 3 Months or Most Recently Relevant to Health Maintenance Care Teams Program Director/Air Personality Relationship Specialty Start Date End Date Needs Pcp, [place] [address] PCP - General 08/12/14
--- OUTSIDE RECORDS SUMMARY | 2024-02-08 15:51 | XMS_ITS | Encounter Summary ---
Author Organization [facility] Address [address] [place] [address] Care Team Providers Care Tavern Car Attendant Name Role Phone Ghanshyam Hassan Primary Care Provider Unavailable Gricel Carmona [place] Primary Care Provider Unavailable Allen Amaya MD Primary Care Provider Gricel [place] Primary Care Provider Unavailable Medardo Graf MD Primary Care Provider [phone] Noelle Khan MD Unavailable [phone] Umu Duke MD Unavailable [phone] Umu Duke MD Unavailable [phone] Reason for Visit * Reason Onset Date Comments Nurse Advice Line 04/23/2011 Encounter Details Date Type Department Care Team (Late st Contact Info) Description 04/23/2011 Telephone [facility] [place] [address] [place] [address] Allen Amaya MD [address] [place] [address] Nurse Advice Line Social History Tobacco Use Types Packs/Day Years Used Date Smoking Tobacco: Never Alcohol Use Standard Drinks/Week Comments Yes 0 (1 standard drink = 0.6 oz pur e alcohol) occas Comments No Sex and Gender Information Value Date Recorded Sex Assigned at Not on file Legal Sex Female 4:41 AM SURGICAL GARMENT ASSEMBLY SUPERVISOR Gender Identity Not on file Sexual Orientation Not on file documented as of this encounter Miscellaneous Notes * Telephone Encounter - Becky Yepez - 08/21/2011 6:41 AM CDT [facility] Triage Call Report Patient Name: Lacey Nolasco Call Date & Time: 04/23/2011 9:08:38PM Patient PCP Name: Patient Address: [address] [place] [id number] Patient Date of : 1980 Age: 31 yr. Patient Gender: Female Plastic Cutter Name: Kerrie Ponce Presenting Problem: I'm wondering [...] Influenza 04/04/2021 04/04/2021 04/11/2021 11:4 1 PM SURGICAL GARMENT ASSEMBLY SUPERVISOR documented as of this encounter Care Teams Tavern Car Attendant Relationship Specialty Start Date End Date Ghanshyam Hassan PCP - General 04/19/11 02/21/12 Ghanshyam Hassan PCP - General 02/22/12 02/22/12 Allen Amaya MD PCP - General rawhide trimmer 02/23/12 04/07/12 Calvin [place] PCP - General 04/08/12 11/14/18 Medardo Graf MD PCP - General Family Practice 11/15/18 Noelle Khan MD [facility] [address] [place] [address] Assigned Pulmonology Provider 02/04/20 11/09/21 Umu Duke MD [address] [place] [address] rawhide trimmer 03/16/20 Umu Duke MD [address] [place], [place] [address] Assigned OBGYN Provider 06/04/2002/01 documented as of this encounter
--- OUTSIDE RECORDS SUMMARY | 2024-02-08 15:51 | XMS_ITS | Encounter Summary ---
Author Organization [facility] Address [address] [place] [address] Care Team Providers Care Core Inspector Name Role Phone Medardo Graf MD Primary Care Provider [phone] Noelle Khan MD Unavailable Umu Duke MD Unavailable [phone] Umu Duke MD Unavailable [phone] Encounter Details Date Type Department Care Team (Late st Contact Info) Description 07/14/2020 MyC Medical Advice [facility] [address] [place] [facility] [address] [place] [phone] Umu Duke MD [address] [place] [address] Social History Tobacco Use Types [...] Answer Date Recorded PHQ-2 Score 0 06/01/2020 Comments No Sex and Gender Information Value Date Recorded Sex Assigned at Not on file Legal Sex Female 4:41 AM SERVICES PROGRAM MANAGER Gender Identity Not on file Sexual Orientation [...] Influenza 04/04/2021 04/04/2021 04/11/2021 11:4 1 PM SERVICES PROGRAM MANAGER Assessment Noted Time PHQ-9 Depression Total Score: 2 06/01/19 21 1:03 PM SERVICES PROGRAM MANAGER documented as of this encounter Care Teams Core Inspector Relationship Specialty Start Date End Date Medardo Graf MD PCP - General Family Practice 11/15/18 Noelle Khan MD [facility] [address] [place] [id number] Assigned Pulmonology Provider 02/04/20 11/09/21 Umu Duke MD [address] [place], [place] [id number] therapy administrative assistant 03/16/20 Umu Duke MD [address] [place], [place] [id number] Assigned OBGYN Provider 06/04/2002/01 documented as of this encounter
--- OUTSIDE RECORDS SUMMARY | 2024-02-08 15:51 | XMS_ITS | Encounter Summary ---
Author Organization [facility] Address [address] [place] [address]. [place] [address] Care Team Providers Care Salesperson New Cars Name Role Phone Medardo Graf MD Primary Care Provider [phone] Umu Duke MD Unavailable [phone] Encounter Details Date Type Department Care Team (Latest Contact Info) Description 11/10/2023 Travel Social History Tobacco Use Types Packs/Day [...] on file Legal Sex Female 4:41 AM RN LVN Gender Identity Not on file Sexual Orientation Not on file documented as of this encounter Plan of Treatment Not on file documented as of this encounter Visit Diagnoses Not on filedocumented in this encounter Additional Health Concerns Assessment Noted Time PHQ-9 Depression Total Score: 2 06/01/19 21 1:03 PM RN LVN documented as of this encounter Care Teams Salesperson New Cars Relationship Specialty Start Date End Date Medardo Graf MD PCP - General Family Practice 11/15/18 Umu Duke MD [address] [place] [address] [address] pediatric physiatrist 03/16/20 documented as of this encounter
--- OUTSIDE RECORDS SUMMARY | 2024-02-08 15:51 | XMS_ITS | Encounter Summary ---
Author Organization [facility] Address [address] [place] [address]. [place] [address] Care Team Providers Care Granite Chip Terrazzo Finisher Name Role Phone Medardo Graf MD Primary Care Provider [phone] Umu Duke MD Unavailable [phone] Encounter Details Date Type Department Care Team (Late st Contact Info) Description 01/28/2024 MyC Medical Advice Initial Department Diana Castro Social History Tobacco Use Types Packs/Day Years [...] on file Legal Sex Female 4:41 AM FLASH WELDER Gender Identity Not on file Sexual Orientation Not on file documented as of this encounter Plan of Treatment Not on file documented as of this encounter Visit Diagnoses Not on filedocumented in this encounter Additional Health Concerns Assessment Noted Time PHQ-9 Depression Total Score: 2 06/01/19 21 1:03 PM FLASH WELDER documented as of this encounter Care Teams Granite Chip Terrazzo Finisher Relationship Specialty Start Date End Date Medardo Graf MD PCP - General Family Practice 11/15/18 Umu Duke MD [address] [facility] [address] [place] [address] fruit harvester 03/16/20 documented as of this encounter
--- OUTSIDE RECORDS SUMMARY | 2024-02-08 15:51 | XMS_ITS | Encounter Summary ---
Author Organization [facility] Address [address] [place] [address]. [place] [address] Care Team Providers Care Holistic Nutritionist Name Role Phone Medardo Graf MD Primary Care Provider [phone] Noelle Khan MD Unavailable [phone] Umu Duke MD Unavailable [phone] Umu Duke MD Unavailable [phone] Encounter Details Date Type Department Care [...] on file Legal Sex Female 4:41 AM AUTOGRAPHER Gender Identity Not on file Sexual Orientation Not on file COVID-19 Exposure Response Date Recorded In the last month, have you been in contact with someone who was confirmed or suspected to have Coronavirus / COVID-19? No / Unsure 02/28/2021 2:08 PM AUTOGRAPHER documented as of this encounter Plan of Treatment Not on file documented as of this encounter Visit Diagnoses Not on filedocumented in this encounter Additional Health Concerns Infection Onset Date Last Indicated Resolved Time Influenza 04/04/2021 04/04/2021 04/11/2021 11:4 1 PM AUTOGRAPHER Assessment Noted Time PHQ-9 Depression Total Score: 2 06/01/19 1:03 PM AUTOGRAPHER documented as of this encounter Care Teams Holistic Nutritionist Relationship Specialty Start Date End Date Medardo Graf MD PCP - General Family Practice 11/15/18 Noelle Khan MD [facility] [address] [place] [address] Assigned Pulmonology Provider 02/04/20 11/09/21 Umu Duke MD [address] [place] [address] hydrologic engineer 03/16/20 Umu Duke MD [address] [place], [place] [address] Assigned OBGYN Provider 06/04/2002/01 documented as of this encounter
--- OUTSIDE RECORDS SUMMARY | 2024-02-08 15:51 | XMS_ITS | Encounter Summary ---
Author Organization [place] [facility] Address [address] [facility] [address] Care Team Providers Care Timber Management Professor Name Role Phone Medardo Graf MD Primary Care Provider [phone] Noelle Khan MD Unavailable Umu Duke MD Unavailable [phone] Umu Duke MD Unavailable [phone] Encounter Details Date Type Department Care Team (Late st Contact Info) Description 07/06/2020 MyC Medical Advice [facility] [address] [place] [facility] [address] [place] [phone] Umu Duke MD [address] [facility] [address] [place] [address] Social History Tobacco Use Types [...] on file Legal Sex Female 4:41 AM DECK BUILDER Gender Identity Not on file Sexual Orientation Not on file COVID-19 Exposure Response Date Recorded In the last month, have you been in contact with someone who was confirmed or suspected to have Coronavirus / COVID-19? No / Unsure 06/11/2020 8:16 AM DECK BUILDER documented as of this encounter Plan of Treatment Not on file documented as of this encounter Visit Diagnoses Not on filedocumented in this encounter Additional Health Concerns Infection Onset Date Last Indicated Resolved Time Influenza 04/04/2021 04/04/2021 04/11/2021 11:4 1 PM DECK BUILDER Assessment Noted Time PHQ-9 Depression Total Score: 2 06/01/19 21 1:03 PM DECK BUILDER documented as of this encounter Care Teams Timber Management Professor Relationship Specialty Start Date End Date Medardo Graf MD PCP - General Family Practice 11/15/18 Noelle Khan MD [address] [id number] Assigned Pulmonology Provider 02/04/20 11/09/21 Umu Duke MD [address] [place], [place] [address] general repairer 03/16/20 Umu Duke MD [address] [place], [place] [phone] Assigned OBGYN Provider 06/04/2002/01 documented as of this encounter
--- OUTSIDE RECORDS SUMMARY | 2024-02-08 15:51 | XMS_ITS | Encounter Summary ---
Author Organization [facility] Address [address] [place] [address]. [place] [address] Care Team Providers Care Renewable Energy Trader Name Role Phone Medardo Graf MD Primary Care Provider [phone] Umu Duke MD Unavailable [phone] Reason for Visit * Reason Comments Urgent Care Hemorrhoid started x 1 day ago, painful, hernesto anal lump, yesterday morning had a hard BM movement. Encounter Details Date Type Department Care Team (Late st Contact Info) Description 11/10/2023 11:00 AM CDT Office Visit [facility] [place] [address] [place] [phone] Naon Carey MD [address] [facility] [address] [place], [place] [id number] External hemorrhoids (Primary Dx); Thrombosed external hemorrhoids Social History Tobacco Use Types Packs/Day Years [...] on file Legal Sex Female 4:41 AM COMPONENT DESIGN ENGINEER Gender Identity Not on file Sexual Orientation Not on file documented as of this encounter Last Filed Vital Signs Vital Sign Reading Time Taken Comments Blood Pressure 102/76 11/10/2023 10:17 AM CDT Pulse 80 11/10/2023 10:17 AM CDT Temperature 36.9 ??C (98.5 ??F) 11/10/2023 10:17 AM C DT Respiratory Rate - - Oxygen Saturation 100% 11/10/2023 10:17 AM CDT Inhaled Oxygen Concentration - - Weight 79.4 kg (175 lb) 11/10/2023 10:17 AM CDT Height - - Body Mass Index 28.25 05/26/2023 5:15 AM COMPONENT DESIGN ENGINEER documented in this encounter Patient Instructions * Patient Instructions* Nano Carey MD - 11/10/2023 11:00 AM CDT Continue on high-fiber intake increase fiber intake apply anusol ointment Continue doing Anusol suppository Sitz baths * Attachments The following attachments cannot be sent through Care Everywhere. * Hemorrhoids (Congolese) documented in this encounter Progress Notes * Nano Carey MD - 11/10/2023 11:00 AM CDT Chief Complaint Patient presents with Urgent Care Hemorrhoid started x 1 day ago, painful, hernesto anal lump, yesterday morning had a hard BM movement. Lacey was seen today for urgent care. Diagnoses and all orders for this visit: External hemorrhoids - hydrocortisone (ANUSOL-HC) 25 MG suppository; Place 1 suppository (25 mg) rectally 2 times daily - hydrocortisone, Perianal, (HYDROCORTISONE) 2.5 % cream; Place rectally 2 times daily as needed for hemorrhoids Thrombosed external hemorrhoids Procedure Informed consent area was visualized very tender to touch the cleaning the area with alcohol 1% lido with epi was infiltrated in the area then 11 with scalpel was used to make a tiny opening and a forcep was used to remove clots she tolerated the procedure well after doing the procedure close as the hemorrhoid diminished significantly. The area was cleaned with normal saline bacitracin applied inthe area. did spent>40 minutes with patient and > 50% of the time was for answering questions, discussing findings, counseling and coordination of care PLAN: See orders in epic. Symptomatic treat with and OTC analgesic as needed. Follow-up with primary clinic if not improving. Continue on high-fiber intake increase fiber intake apply anusol ointment, igor delatorre Continue doing Anusol suppository Sitz baths SUBJECTIVE: Lacey Nolasco is a 43 year old female with a chief complaint of hemorrhoid. As per patient she does not have any history of hemorrhoid symptoms abruptly started yesterday and the pain has gotten worse. She has been using jjzc-mjp-[id number] medications such as with chisel and Preparation H with some relief of symptoms. Onset of symptoms was 1 day(s) ago. Course of illness: sudden onset. Severity moderate She was straining a bit yesterday Past Medical History: Diagnosis Date Complication of anesthesia severe nausea Endometriosis Hx of previous reproductive problem used clomid with Hypothyroidism PONV (postoperative nausea and vomiting) Current Outpatient Medications Medication Sig Dispense Refill liothyronine (CYTOMEL) 25 MCG tablet Take 25 mcg by mouth daily spironolactone (ALDACTONE) 50 MG tablet Take 50 mg by mouth 2 times daily levothyroxine (SYNTHROID/LEVOTHROID) 50 MCG tablet 50 mcg daily (Patient not taking: Reported on 05/21/2023) norgestrel-ethinyl estradiol (LO/OVRAL) 0.3-30 MG-MCG tablet Take 1 tablet by mouth valACYclovir (VALTREX) 500 MG tablet (Patient not taking: Reported on 05/21/2023) Social History Tobacco Use Smoking status: Never Smokeless tobacco: Never Substance Use Topics Alcohol use: Yes Comment: 2 week ROS: Review of systems negative except as stated above. OBJECTIVE: BP 102/76 Pulse 80 Temp 98.5 ??F (36.9 ??C) Wt 79.4 kg (175 lb) SpO2 100% BMI 28.25 kg/m?? GENERAL APPEARANCE: healthy, alert and no distress EYES: EOMI, PERRL, conjunctiva clear PSYCH: mentation appears normal Rectal exam - a 3cm thrombosed hemorrhoid noted which is painful to touch Nano Carey MD documented in this encounter Plan of Treatment Not on file documented as of this encounter Visit Diagnoses Diagnosis External hemorrhoids- Primary External hemorrhoids without mention of complication Thrombosed external hemorrhoids External thrombosed hemorrhoids documented in this encounter Additional Health Concerns Assessment Noted Time PHQ-9 Depression Total Score: 2 06/01/19 21 1:03 PM COMPONENT DESIGN ENGINEER documented as of this encounter Care Teams Renewable Energy Trader Relationship Specialty Start Date End Date Medardo Graf MD PCP - General Family Practice 11/15/18 Umu Duke MD [address] [address] umbrella tipper machine 03/16/20 documented as of this encounter
--- OUTSIDE RECORDS SUMMARY | 2024-02-08 15:51 | XMS_ITS | Clinical Summary ---
Author Organization [facility] Address [place], [place] [address] Care Team Providers Care Gimp Tacker Name Role Phone Medardo Graf MD Primary Care Provider [phone] Allergies Active Allergy Reactions Criticality Noted Date [...] ag e 18-79 1996 Tetanus booster 1998 Colonoscopy through age 75 2023 Lipids for age 45-75 2023 Mammogram for age 45-75 2023 COVID-19 vaccine series (2023- season) 2023 Influenza for age 9-49 12/14/2023 01/26/2011 Pap test for age 21-65 10/24/2025 , 10/24/2022 Pneumococcal series for age 6-64 Aged Out No longer eligible b ased on patient's age to complete this topic Medical Devices Implanted Type Area Auto Rental 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 Device Identifier Shelf Expiration Date Model / Serial / Lot Disc Sc [id number] Cerv [id number] - [id number] Implanted:Qty: 1 on 06/17/2011 at [facility] Sp[facility] SOFAMOR DANEK [id number] / / [id number] M15-304 Natrelle Silicone-Filled Breast Implant Smooth Round Midrange Profile - [id number] Implanted:Qty: 1 on 02/28/2014 by Kar Nava MD at [facility] Right: Breast 05/14/2018 15-304 NATRELLE SILICONE-FI LLED BREAST IMPLANT SMOOTH ROUND MIDRANGE PROFILE / [id number] / [id number] M15-265 Natrelle Silicone Breast Implant Smooth Round Midrange Profile - [id number] Implanted:Qty: 1 on 02/28/2014 by Kar Nava MD at [facility] Left: Breast 09/11/2018 15-265 NATRELLE SILICONE BREAST IMPLANT SMOOTH ROUND MIDRANGE PROFILE / [id number] / [id number] Disc Cerv 6x14mm Prestige Lp Titnm Ceramic - [id number] Implanted:Qty: 1 on 10/07/2022 by Ulises Medina MD at [facility] N/A: Cervical Vertebrae [employer] [facility] 03/17/2030 [id number] / / [id number] Procedures Procedure Name Priority Date/Time Associated Diagnosis Comments HPV HIGH RISK Routine 10/24/2022 8:30 AM CDT from Last 3 Months or Most Recently Relevant to Health Maintenance Results * HPV HIGH RISK (10/24/2022 8:30 AM CDT) TYPE 16 Negative Negative 10/29/2022 11:44 AM CDT [facility] TYPE 18 Negative Negative 10/29/2022 11:44 AM CDT [facility] OTHER HIGH RISK TYPES Negative Negative 10/29/2022 11:44 AM CDT [facility] Other (Cervical) 10/24/2022 8:30 AM CDT 10/24/2022 6:23 PM CDT Narrative [facility] - 10/29/2022 11:44 AM CDT HPV types 16, 18, 31, 33, 35, 39, 45, 51, 52, 56, 58, 59, 66 and 68 DNA were undetectable or below the pre-set threshold. Methodology: Evan Jack 4800 HPV Test Caitlyn Dorado PA-C MICROBIOLOGY [facility] [address] [place] [address], from Last 3 Months or Most Recently [...] 5:51 AM 06/18/2011 8:24 PM Care Teams Gimp Tacker Relationship Specialty Start Date End Date Medardo Graf MD [address] [place] [address] PCP - General Family Practice 09/24/22
[2024-02-08 16:04] LABS: Lactate* 0.8 mmol/L (0.5-1.9)
[2024-02-08 16:07] LABS: Basophils Absolute Auto 0.03 K/uL (0.00-0.30); Basophils Percent Auto 0.4 % (0.0-3.0); Eosinophils Absolute Auto 0.15 K/uL (0.00-0.50); Eosinophils Percent Auto 2.2 % (0.0-7.0); Hematocrit 42.4 % (33.0-51.0); Hemoglobin* 13.8 gm/dL (12.0-16.0); Immature Granulocytes Abs Auto 0.01 K/uL (0.00-0.30); Immature Granulocytes Pct Auto 0.1 %; Lymphocytes Absolute Auto 1.66 K/uL (0.90-2.90); Lymphocytes Percent Auto 24.3 % (20-44); Mean Corpuscular HGB Conc 33 gm/dL (32-36); Mean Corpuscular Hemoglobin 29 pg (26-34); Mean Corpuscular Volume 90 fL (80-100); Platelet Count* 265 K/uL (140-440); White Blood Count* 6.83 K/uL (4.50-11.00)
[2024-02-08 16:10] LABS: Slide Review Reflex No
[2024-02-08 16:20] LABS: Albumin* 4.5 g/dL (3.3-5.0); Chloride* 102 mmol/L (96-114); Sodium* 136 mmol/L (135-149)
[2024-02-08 16:21] LABS: Potassium* 3.6 mmol/L (3.6-5.1)
[2024-02-08 16:23] LABS: Bilirubin Total* 0.4 mg/dL (0.1-1.5); Creatinine* 0.7 mg/dL (0.5-1.5); Est. Creatinine Clearance* 91.32; Estimated Glomerular Filt Rate 109 ml/min
[2024-02-08 16:24] LABS: Alanine Aminotransferase* 23 U/L (4-35); Alkaline Phosphatase* 56 U/L (40-150); Anion Gap 7 mEq/L (7-15); Aspartate Amino Transferase* 26 U/L (12-35); Blood Urea Nitrogen* 12 mg/dL (5-24); Calcium* 9.1 mg/dL (8.4-10.6); Carbon Dioxide* 27 mmol/L (20-32); Glucose* 96 mg/dL (60-115); Lipase* 95 U/L (23-300); Total Protein* 7.1 g/dL (6.0-8.3)
[2024-02-08 16:26] LABS: D Dimer Quantitative* 0.28 ug/ml (0.00-0.50)
[2024-02-08 16:28] LABS: C Reactive Protein* < 0.5 mg/dL (0.5-1.0)
[2024-02-08 16:34] LABS: NT Pro B Type NatriureticPept* < 20 pg/mL
[2024-02-08 16:38] LABS: Troponin I* < 0.01 ng/mL (0.01-0.04)
== END 2024-02-08 17:15 | disposition home or self-care (01) ==
PROVIDERS: Emergency Provider Family Medicine; PCP Family Medicine
DX: R07.9 Chest pain, unspecified (principal)
CPT/HCPCS: 36415; 71045; 80053; 83605; 83690; 83735; 83880; 84484; 85025; 85379; 86140; 93005; 94761; 99284; 99285

== ENCOUNTER 2024-02-20 13:41 | Outpatient (CLI) | payer BC, SELFPAY ==
--- OUTSIDE RECORDS SUMMARY | 2024-02-20 13:43 | XMS_ITS | Continuity of Care Document ---
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 It does not include entries that were removed or entered in error. 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 It does not include entries that were removed or entered in error. Substance Category Reaction Severity Reaction type Status Date Reported Comments Source AMBIEN (ZOLPIDEM TARTRATE) Drug allergy (disorder) Unknown active 9 [place] [address] zolpidem Propensity to adverse reactions to substance Unknown Active 9 [facility] Immunizations Combined list of available immunizations from the Department of Defense and Veterans Affairs facilities. 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 Code Drug Maternity Nurse Status Comments Source typhoid Vi capsular polysaccharid e vac 2021 [id number] sanofi pasteur complet ed typhoid Vi capsular polysacch aride vac 04/21/21 Given Ambulat ory Pharmac y influenza, seasonal, injectable 2020 [id number] 141 complet ed influenza , seasonal, injectabl e 01/22/21 Given Ambulat ory Pharmac y COVID Vaccine Moderna 2020 [id number] complet ed COVID Vaccine Moderna 06/01/20 Given Ambulat ory Pharmac y COVID Vaccine Moderna 2020 [id number] 207 complet ed COVID Vaccine Moderna 05/07/20 Given Ambulat ory Pharmac y meningococcal A,C,Y,W-135 (MCV4P) 2019 [id number] 114 sanofi pasteur complet ed meningoco ccal A,C,Y,W-1 35 (MCV4P) 03/26/20 Given Ambulat ory Pharmac y tetanus-dipht h toxoids (Td) adult/adol 2019 [id number] 09 sanofi pasteur complet ed tetanus-d iphth toxoids (Td) adult/ado l 03/26/20 Given Ambulat ory Pharmac y influenza, seasonal, injectable 2019 [id number] 141 [employer] complet ed influenza , seasonal, injectabl e 12/27/19 Given Ambulat ory Pharmac y typhoid Vi capsular polysaccharid e vac 2018 [id number] 101 sanofi pasteur complet ed typhoid Vi capsular polysacch aride vac 03/27/19 Given Ambulat ory Pharmac y typhoid Vi capsular polysaccharid e vaccine 10 2018 [id number] 101 Sanofi Pasteur ([facility]) complet ed typhoid Vi capsular polysacch aride vaccine DoD influenza, injectable, quadrivalent 2018 [id number] 158 sanofi pasteur complet ed influenza , injectabl e, quadrival ent 01/01/19 Given Ambulat ory Pharmac y influenza, injectable, quadrivalent, contains preservative 1 2018 [id number] 158 Sanofi Pasteur ([facility]) complet ed influenza , injectabl e, quadrival ent, contains preservat sidra DoD influenza, injectable, quadrivalent 2017 [id number] 158 sanofi pasteur complet ed influenza , injectabl e, quadrival ent 12/20/17 Given Ambulat ory Pharmac y influenza, injectable, quadrivalent, contains preservative 1 2017 [id number] 158 Sanofi Pasteur ([facility]) complet ed influenza , injectabl e, quadrival ent, contains preservat sidra DoD influenza, injectable, quadrivalent 2016 [id number] 158 GlaxoSmithKli la complet ed influenza , injectabl e, quadrival ent 03/23/17 Given Ambulat ory Pharmac y typhoid Vi capsular polysaccharid e vac 2016 [id number] 101 sanofi pasteur complet ed typhoid Vi capsular polysacch aride vac 03/23/17 Given Ambulat ory Pharmac y typhoid Vi capsular polysaccharid e vaccine 9 2016 [id number] 101 Sanofi Pasteur (PMC) complet ed typhoid Vi capsular polysacch aride vaccine DoD influenza, injectable, quadrivalent, contains preservative 19 2016 [id number] 158 [facility] (SKB) complet ed influenza , injectabl e, quadrival ent, contains preservat sidra DoD anthrax vaccine 2016 [id number] 24 [employer] complet ed anthrax vaccine 09/01/16 Given Ambulat ory Pharmac y anthrax vaccine 6 2016 [id number] 24 [employer] [place] (MIP) complet ed anthrax vaccine DoD influenza, injectable, quadrivalent- pf 2015 [id number] 150 GlaxoSmithKli ne complet ed influenza , injectabl e, quadrival ent-pf 01/21/16 Given Ambulat ory Pharmac y Influenza, injectable, quadrivalent, preservative free 1 2015 [id number] 150 [facility] (SKB) complet ed Influenza , injectabl e, quadrival ent, preservat sidra free DoD meningococcal A,C,Y,W-135 (MCV4P) 2014 [id number] 114 sanofi pasteur complet ed meningoco ccal A,C,Y,W-1 35 (MCV4P) 03/25/15 Given Ambulat ory Pharmac y meningococcal polysaccharid e (groups A, C, Y and W-135) diphtheria toxoid conjugate vaccine (MCV4P) 3 2014 [id number] 114 Sanofi Pasteur (PMC) complet ed meningoco ccal polysacch aride (groups A, C, Y and W-135) diphtheri a toxoid conjugate vaccine (MCV4P) DoD influenza, seasonal, injectable-pf 2014 [id number] 140 CSL Behring complet ed influenza , seasonal, injectabl e-pf 01/01/15 Given Ambulat ory Pharmac y typhoid Vi capsular polysaccharid e vac 2014 [id number] 101 sanofi pasteur complet ed typhoid Vi capsular polysacch aride vac 01/01/15 Given Ambulat ory Pharmac y typhoid Vi capsular polysaccharid e vaccine 8 2014 [id number] 101 Sanofi Pasteur (PMC) complet ed typhoid Vi capsular polysacch aride vaccine DoD Influenza, seasonal, injectable, preservative free 17 2014 [id number] 140 [facility] Testif, Senzari. (CSL) complet ed Influenza , seasonal, injectabl e, preservat sidra free DoD influenza, seasonal, injectable-pf 2013 [id number] 140 Unknown complet ed influenza , seasonal, injectabl e-pf 01/31/14 Given Ambulat ory Pharmac y Influenza, seasonal, injectable, preservative free 1 2013 140 Unknown (UNK) comple t ed Influenza , seasonal, injectabl e, preservat sidra free DoD anthrax vaccine 2013 [id number] 24 [employer] complet ed anthrax vaccine 01/01/14 Given Ambulat ory Pharmac y anthrax vaccine 5 2013 [id number] 24 [employer] [place] (MIP) complet ed anthrax vaccine DoD anthrax vaccine 2013 [id number] 24 [employer] complet ed anthrax vaccine 06/26/13 Given Ambulat ory Pharmac y anthrax vaccine 4 2013 [id number] 24 [employer] [place] (MIP) complet ed anthrax vaccine DoD measles/mumps /rubella virus vaccine 2013 [id number] [employer] complet ed measles/m umps/rube lla virus vaccine 05/08/13 Given Ambulat ory Pharmac y measles, mumps and rubella virus vaccine 2 2013 [id number] 03 Merck (MSD) complet ed measles, mumps and rubella virus vaccine DoD influenza, seasonal, injectable 2012 TRANSCR IBED 141 complet ed influenza , seasonal, injectabl e 01/15/13 Given Ambulat ory Pharmac y Influenza, seasonal, injectable 1 2012 141 Transcribed (TRS) complet ed Influenza , seasonal, injectabl e DoD yellow fever vaccine 2012 [id number] 37 sanofi pasteur complet ed yellow fever vaccine 12/24/12 Given Ambulat ory Pharmac y typhoid Vi capsular polysaccharid e vac 2012 [id number] 101 sanofi pasteur complet ed typhoid Vi capsular polysacch aride vac 12/24/12 Given Ambulat ory Pharmac y yellow fever vaccine 1 2012 [id number] 37 Sanofi Pasteur (PMC) complet ed yellow fever vaccine DoD typhoid Vi capsular polysaccharid e vaccine 1 2012 [id number] 101 Sanofi Pasteur (PMC) complet ed typhoid Vi capsular polysacch aride vaccine DoD influenza, seasonal, injectable-pf 2011 [id number] 140 CSL Behring complet ed influenza , seasonal, injectabl e-pf 01/26/12 Given Ambulat ory Pharmac y Influenza, seasonal, injectable, preservative free 1 2011 [id number] 140 CS Testif, Senzari. (CS) complet ed Influenza , seasonal, injectabl e, preservat sidra free DoD influenza, seasonal, injectable 2010 [id number] 141 sanofi pasteur complet ed influenza , seasonal, injectabl e 03/23/11 Given Ambulat ory Pharmac y Influenza, seasonal, injectable 1 2010 [id number] 141 Sanofi Pasteur (PMC) complet ed Influenza , seasonal, injectabl e DoD typhoid Vi capsular polysaccharid e vac 2009 [id number] 101 sanofi pasteur complet ed typhoid Vi capsular polysacch aride vac 03/23/10 Given Ambulat ory Pharmac y typhoid Vi capsular polysaccharid e vaccine 1 2009 [id number] 101 Sanofi Pasteur (PMC) complet ed typhoid Vi capsular polysacch aride vaccine DoD meningococcal A,C,Y,W-135 (MCV4P) 2009 [id number] 114 sanofi pasteur complet ed meningoco ccal A,C,Y,W-1 35 (MCV4P) 03/03/10 Given Ambulat ory Pharmac y tuberculin purified protein derivative 2009 [id number] 96 sanofi pasteur complet ed tuberculi n purified protein derivativ e 03/03/10 Given Ambulat ory Pharmac y tetanus, diphtheria, acellular pertu is 2009 [id number] 115 sanofi pasteur complet ed tetanus, diphtheri a, acellular pertussis 03/03/10 Given Ambulat ory Pharmac y influenza virus vaccine,split 2009 [id number] 15 sanofi pasteur complet ed influenza virus vaccine,s plit 03/03/10 Given Ambulat ory Pharmac y influenza virus vaccine, split virus (incl. purified surface antigen)-reti red CODE 1 2009 [id number] 15 Sanofi Pasteur ([facility]) complet ed influenza virus vaccine, split virus (incl. purified surface antigen)- retired CODE DoD meningococcal polysaccharid e (groups A, C, Y and W-135) diphtheria toxoid conjugate vaccine (MCV4P) 1 2009 [id number] 114 Sanofi Pasteur ([facility]) complet ed meningoco ccal polysacch aride (groups A, C, Y and W-135) diphtheri a toxoid conjugate vaccine (MCV4P) DoD tetanus toxoid, reduced diphtheria toxoid, and acellular pertu is vaccine, adsorbed 1 2009 [id number] 115 Sanofi Pasteur ([facility]) complet ed tetanus toxoid, reduced diphtheri a toxoid, and acellular pertussis vaccine, adsorbed DoD anthrax vaccine 2009 [id number] 24 [employer] complet ed anthrax vaccine 07/29/09 Given Ambulat ory Pharmac y anthrax vaccine 3 2009 [id number] 24 [employer] [place] ([facility]) complet ed anthrax vaccine DoD influenza virus vaccine, live 2008 [id number] 111 [employer]scovered Inc comple t ed influenza virus vaccine, live 03/04/09 Given Ambulat ory Pharmac y influenza virus vaccine, live, attenuated, for intranasal use 1 2008 [id number] 111 [employer] (MED) complet ed influenza virus vaccine, live, attenuate d, for intranasa l use DoD Novel influenza-H1N 1-09, injectable 2008 [id number] 127 Novartis Pharmaceutica ls complet ed Novel influenza -D5M0-97, injectabl e 01/21/09 Given Ambulat ory Pharmac y Novel influenza-H1N 1-09, injectable 1 2008 [id number] 127 Novartis Pharmaceutica l [place]. (NOV) complet ed Novel influenza -F9I1-08, injectabl e DoD hepatitis B adult vaccine 2008 [id number] 43 GlaxoSmithKli ne complet ed hepatitis B adult vaccine 10/02/08 Given Ambulat ory Pharmac y tetanus, diphtheria, acellular pertu is 2008 [id number] 115 sanofi pasteur complet ed tetanus, diphtheri a, acellular pertussis 10/02/08 Given Ambulat ory Pharmac y hepatitis B vaccine, adult dosage 3 2008 [id number] 43 SmithKline (SKB) complet ed hepatitis B vaccine, adult dosage DoD tetanus toxoid, reduced diphtheria toxoid, and acellular pertu is vaccine, adsorbed 1 2008 [id number] 115 Sanofi Pasteur ([facility]) complet ed tetanus toxoid, reduced diphtheri a toxoid, and acellular pertussis vaccine, adsorbed DoD anthrax vaccine 2007 [id number] 24 [employer] complet ed anthrax vaccine 03/03/08 Given Ambulat ory Pharmac y anthrax vaccine 2 2007 [id number] 24 [employer] [place] ([facility]) complet ed anthrax vaccine DoD hepatitis B [...] Ambulat ory Pharmac y anthrax vaccine 2007 [id number] 24 [employer] complet ed anthrax vaccine 02/06/08 Given Ambulat ory Pharmac y anthrax vaccine 1 2007 [id number] 24 [employer] [place] ([facility]) complet ed anthrax vaccine DoD typhoid vaccine, parenteral, other than acetone-kille d, dried 0 2007 [id number] 41 Sanofi Pasteur ([facility]) complet ed typhoid vaccine, parentera l, other than acetone-k illed, dried DoD influenza virus vaccine, live 2007 [id number] 111 [employer]overed Inc comple t ed influenza virus vaccine, [...] live, attenuated, for intranasal use 1 2007 [id number] 111 [employer], Senzari. (MED) complet ed influenza virus vaccine, live, attenuate d, for intranasa l use DoD influenza virus vaccine, live 2006 [id number] 111 [employer] comple t ed influenza virus vaccine, live 03/28/07 Given Ambulat ory Pharmac y influenza virus vaccine, live, attenuated, for intranasal use 1 2006 [id number] 111 [employer], Senzari. (MED) complet ed influenza virus vaccine, live, attenuate d, for intranasa l use DoD influenza virus vaccine,split 2005 [id number] 15 sanofi pasteur complet ed influenza virus vaccine,s plit 03/23/06 Given Ambulat ory Pharmac y influenza virus vaccine, split virus (incl. purified surface antigen)-reti red CODE 1 2005 [id number] 15 Sanofi Pasteur (PMC) complet ed influenza virus vaccine, split virus (incl. purified surface antigen)- retired CODE DoD typhoid vaccine, parenteral 2005 [id number] 41 sanofi pasteur complet ed typhoid vaccine, parentera l 01/26/06 Given Ambulat ory Pharmac y varicella virus vaccine 0 2005 21 () Not Given varicella virus vaccine DoD typhoid vaccine, parenteral, other than acetone-kille d, dried 1 2005 [id number] 41 Sanofi Pasteur (PMC) complet ed typhoid vaccine, parentera l, other than acetone-k illed, dried DoD influenza virus vaccine,split 2004 [id number] 15 sanofi pasteur complet ed influenza virus vaccine,s plit 03/02/05 Given Ambulat ory Pharmac y influenza virus vaccine, split virus (incl. purified surface antigen)-reti red CODE 1 2004 [id number] 15 Sanofi Pasteur (PMC) complet ed influenza [...] DoD influenza virus vaccine, whole virus 2002 [id number] 16 sanofi pasteur complet ed influenza virus vaccine, whole virus 02/16/03 Given Ambulat ory Pharmac y influenza virus vaccine, whole virus 0 2002 [id number] 16 Sanofi Pasteur (PMC) complet ed influenza virus vaccine, whole virus DoD tuberculin purified protein derivative 2001 [id number] 96 sanofi pasteur complet ed tuberculi n purified protein derivativ e 03/27/02 Given Ambulat ory Pharmac y influenza virus vaccine, whole virus 2001 [id number] 16 sanofi pasteur complet ed influenza virus vaccine, whole virus 03/27/02 Given Ambulat ory Pharmac y influenza virus vaccine, whole virus 0 2001 [id number] 16 Sanofi Pasteur (PMC) complet ed influenza virus vaccine, whole virus DoD typhoid Vi capsular polysaccharid e vac 2001 [id number] 101 sanofi pasteur complet ed typhoid Vi capsular polysacch aride vac 05/02/01 Given Ambulat ory Pharmac y typhoid Vi capsular polysaccharid e vaccine 0 2001 [id number] 101 Sanofi Pasteur (PMC) complet ed typhoid Vi capsular polysacch aride vaccine DoD influenza virus vaccine, whole virus 2000 [id number] 16 sanofi pasteur complet ed influenza virus vaccine, whole virus 02/28/01 Given Ambulat ory Pharmac y influenza virus vaccine, whole virus 0 2000 [id number] 16 Sanofi Pasteur (PMC) complet ed influenza virus vaccine, whole virus DoD influenza virus vaccine, whole virus 1999 [id number] 16 Unknown complet ed influenza virus vaccine, whole virus 03/23/00 Given Ambulat ory Pharmac y influenza virus vaccine, whole virus 0 1999 [id number] 16 Other (OTH) complet ed influenza virus vaccine, whole virus DoD yellow fever vaccine 1999 [id number] 37 sanofi pasteur complet ed yellow fever vaccine 04/28/99 Given Ambulat ory Pharmac y typhoid vaccine, parenteral 1999 [id number] 41 sanofi pasteur complet ed typhoid vaccine, parentera l 04/28/99 Given Ambulat ory Pharmac y yellow fever vaccine 0 1999 [id number] 37 Sanofi Pasteur ([facility]) complet ed yellow fever vaccine DoD typhoid vaccine, parenteral, other than acetone-kille d, dried 0 1999 [id number] 41 Sanofi Pasteur ([facility]) complet ed typhoid vaccine, parentera l, other than acetone-k illed, dried DoD hepatitis A adult vaccine 1998 [id number] 52 Merck & Company Inc complet ed hepatitis A adult vaccine 03/04/99 Given Ambulat ory Pharmac y hepatitis A vaccine, adult dosage 2 1998 [id number] 52 Merck (MSD) complet ed hepatitis A vaccine, adult dosage DoD influenza virus vaccine, whole virus 1998 [id number] 16 [facility] complet ed influenza virus vaccine, whole virus 01/28/99 Given Ambulat ory Pharmac y influenza virus vaccine, whole virus 0 1998 [id number] 16 [facility] ([facility]) complet ed influenza virus vaccine, whole virus DoD poliovirus vaccine, live, oral 1998 [id number] 02 [facility] poliovir[facility] s vaccine, live, oral 09/01/98 Given Ambulat ory Pharmac y hepatitis A adult vaccine 1998 [id number] 52 Merck & Company Inc complet ed hepatitis A adult vaccine 09/01/98 Given Ambulat ory Pharmac y trivalent poliovirus vaccine, live, oral 0 1998 [id number] 02 [facility] ([facility]) comple t ed trivalent polioviru s vaccine, live, oral DoD hepatitis A vaccine, adult dosage 1 1998 [id number] 52 Merck (MSD) complet ed hepatitis A vaccine, adult dosage DoD tuberculin purified protein derivative 1998 [id number] 96 [facility] complet ed tuberculi n purified protein derivativ e 08/25/98 Given Ambulat ory Pharmac y meningococcal polysaccharid e (MPSV4) 19981434 [id number] 32 [facility] complet ed meningoco ccal polysacch aride (MPSV4) 08/25/98 Given Ambulat ory Pharmac y influenza virus vaccine, whole virus 19981362 [id number] 16 [employer] complet ed influenza virus vaccine, whole virus 08/25/98 Given Ambulat ory Pharmac y tetanus-dipht h toxoids (Td) adult/adol [id number] [facility]-d iphth toxoids (Td) adult/ado l 08/25/98 Given Ambulat ory Pharmac y tetanus and diphtheria toxoids, adsorbed, preservative free, for adult use (2 Lf of tetanus toxoid and 2 Lf of diphtheria toxoid) 0 [id number] 09 [facility] (CON) complet ed tetanus and diphtheri a toxoids, adsorbed, preservat sidra free, for adult use (2 Lf of tetanus toxoid and 2 Lf of diphtheri a toxoid) DoD influenza virus vaccine, whole virus 0 19986316 [id number] 16 [employer] (WAL) complet ed influenza virus vaccine, whole virus DoD meningococcal polysaccharid e vaccine (MPSV4) 0 19982661 [id number] 32 [facility]oret[facility] (CON) complet ed meningoco ccal polysacch aride vaccine (MPSV4) DoD measles/mumps /rubella virus vaccine 1998 03 Unknown complet ed measles/m umps/rube lla virus vaccine 08/12/98 Given Ambulat ory Pharmac y measles, mumps and rubella virus vaccine 0 1998 03 Unknown (UNK) comple t ed measles, mumps and rubella virus vaccine DoD poliovirus vaccine, live, oral 1994 [id number] 02 [employer] [facility] complet ed polioviru s vaccine, live, oral 09/01/94 Given Ambulat ory Pharmac y trivalent poliovirus vaccine, live, oral 0 1994 [id number] 02 [facility] ([facility]) comple t ed trivalent polioviru s vaccine, live, oral [facility] Results Combined list of recent chemistry, [...] Prevention' s HIV diagnostic algorithm. Refer to [facility] Lab Guide for additional information : [email or web address] x Testing [...] Date Status Disposition Source Theater Facility OUTPATIENT [id number] 02/01 Released w/o Limitations Theater Facilit [facility] Theater Facility OUTPATIENT [id number] Theater Provider 12/13 Released w/o Limitations [facility] OUTPATIENT [id number] Theater Provider 12/16 Released w/o Limitations Theater Fac[facility] Theater Facility OUTPATIENT [id number] Theater Provider 01/21 Released w/o Limitations Theater Facilit y Theater Facility OUTPATIENT [id number] Theater Provider 02/03 Released w/o Limitations Theater Facilit y [place] [address](AFN G [address] Med Sq-FM) OUTPATIENT [id number] SAGAR DOMINGUEZ 03/23 [facility]ased w[facility] Limitations [facility] [place] [address](A FNG [address] Med Sq-FM) [place] [address](AFN G 133 Med Sq-FM) OUTPATIENT [id number] Notes Entered by: Graciela LOVE 03 Oct 2017 0906 ------- ------- ------- ------- -- RACHEL BAJWA 10/03 Released w/o Limitations [facility] [place] [address](A FNG 133 Med Sq-FM) [id number] MDG Outpatient [id number] KARMEN ALINA 03/26 Discharge Disposition: Home or Self Care [id number] MDG Procedures Combined list of: 1) Procedures from Department of [facility] Affairs facilities [facility], not all [place] non-surgical procedures are included; 2) All procedures from the Department of Defense facilities. Procedure Procedure Type Code Date Perfomer Comments Sourc e No data available for this section Ambulato ry Pharmacy FITTING OF SPECTACLES, EXCEPT FOR APHAKIA; MONOFOCAL 08/13/2002 [facility] Social History Combined list of available [...] Plan No data available for this section 02/20/2024 Ambulatory Pharmacy Plan of Care List of future care activities from Department of Veterans Affairs facilities. Additional future care activities may be listed in the Assessment and Plan section. Date/Time Care Activity Care Activity Detail Facili ty 03/09/2024 AMBULATORY - MEDICINE AMBULATORY - MEDICI [facility] Functional Status Combined list of recent functional and cognitive assessments recorded at Department of Defense and Veterans Affairs (ME).ME Functional [place] Measurement (FIM) Scale: 1 = Total Assistance (Subject = 0% +), 2 = Maximal Assistance (Subject = 25% +), 3 = Moderate Assistance (Subject = 50% +), 4 = Minimal Assistance (Subject = 75% +), 5 = Supervision, 6 = Modified [place] (Device), 7 = Complete [place] (Timely, Safely). Assessment Date/Time Source Assessment Type Assessment Skill Assessment Score Assessment Details No data available for this section
--- OUTSIDE RECORDS SUMMARY | 2024-02-20 13:43 | XMS_ITS | Continuity of Care Document ---
Author Organization [facility] Address [address] [place] [address] Phone Care Team Providers Care Rn Assessment Name Role Phone Rocky Dick MD Unavailable [...] Copied on Encounter [facility], [address], [place], [place], [id number], [place] tel:[phone] [facility] No Information 4 Kapil Hidalgo. [facility], [address], [address], [place], [place], [address], [place]. tel:[phone] Office/Outpa tient Visit,Est, Mod [facility], [address], [place], [place], [address], [place] tel:[phone] [facility] - [facility] Encounter for other specified surgical aftercare 3 Adam Montgomery. [facility], [address] [place] [address] , [place], [address], [place]. tel:[phone] Referring Provider: [facility] [address] [place] [address] , [place], [address]. tel:[phone] [facility], [address], [place], [place], [id number], [place] tel:[phone] [facility] - [facility] Encounter for other specified surgical aftercare 3 Artur Chong. [facility], [address], [place], [place], [id number], [place]. tel:[phone] Referring Provider: [facility] [address] [place] [address] , [place], [address]. tel:[phone] [facility], [address], [place], [place], [address], [place] tel:[phone] [facility] No Information 3 Artur Chong. [facility], [address], [place], [place], [address], [place]. tel:[phone] Referring Provider: [facility] [address], [place], [address]. tel:[phone] [facility], [address], [place], [place], [address], [place] tel:[phone] [facility] No Information 3 Adam Montgomery. [facility], [address], [place], [address], [place]. tel:[phone] Referring Provider: [facility] [address], [place], [address]. tel:[phone] Pre Op Office/Outpa tient Visit, [facility], [address], [place], [place], [address], [place] tel:[phone] [facility] - [facility] Radiculopath y, cervical regionCervic al disc disorder with myelopathy, cervicothora cic regionWeakne ss 3 Adam Montgomery. [facility], [address], [place], [address], [place]. tel:[phone] Referring Provider: [facility] [address], [place], [address]. tel:[phone] Office/Outpa tient Visit,Est, Mod [facility], [address], [place], [place], [address], [place] tel:[phone] [facility] - [facility] Radiculopath y, cervical regionCervic al disc disorder with myelopathy, cervicothora cic regionWeakne ss 3 Ed Tucker. [facility], [address] [place] [address] [address], [place], [address], [place]. tel:[phone] Referring Provider: [facility] [address], [place], [address]. tel:[phone] Office/Outpa tient Visit,New, Mod [facility], [address], [place], [place], [address], [place] tel:[phone] [facility] - [facility] Radiculopath y, cervical regionEncoun ter for follow-up examination after completed treatment for conditions other than malignant neoplasm 3 Ed Tucker. [facility], [address] [place] [address] [address], [place], [address], [place]. tel:[phone] Referring Provider: [facility] [address], [place], [address]. tel:[phone] Office/Outpa tient Visit,New, Mod [facility], [address], [place], [place], [address], [place] tel:[phone] [facility] - [place] Arthrodesis status 8 Artur Chong. [facility], [address] [place] [address] [address], [place], [place], [id number], [place]. tel:[phone] Referring Provider: SHAN [address], [place], [address]. tel:[phone] Office/Outpa tient Visit,Est, Mod Z [facility], [address], [place], [address], [place] tel:[phone] [facility] - [place] No Information 4 Artur Chong. [facility], [address] [place] [address] [address], [place], [place], [address], [place]. tel:[phone] Referring Provider: [facility], [place], [address]. tel:[phone] Z [facility], [address], [place], [address], [place] tel:[phone] [facility] - [place] BRACHIAL NEURITIS NOSARTHRODES IS STATUS 4 Adam Montgomery. [facility] [address], [place], [address], [place]. tel:[phone] Z [facility], [address], [place], [address], [place] tel:[phone] [facility] - [facility] No Information 2 Adam Montgomery. [facility], [address] [facility] , [place], [address], [place]. tel:[phone] Referring Provider: Ulises Medina, [facility] [address] [place] [address] , [place], [address]. tel:[phone] Z [facility], [address], [place], [address], [place] tel:[phone] [facility] - [facility] No Information Jun- 2 Adam Montgomery. [facility], [address] [place] [address] , [place], [address], [place]. tel:[phone] Referring Provider: [facility] [address] [place] [address] , [place], [address]. tel:[phone] Z [facility], [address], [place], [address], [place] tel:[phone] [facility] - [facility] No Information 2 Artur Chong. [facility], [address], [place], [place], [address], [place]. tel:[phone] Referring Provider: Primary Care Doctor No. Z [facility], [address], [place], [address], [place] tel:[phone] [facility] - [facility] Headache Jun- 2 Artur Chong. [facility], [address], [place], [place], [address], [place]. tel:[phone] Referring Provider: Ulises Medina [facility] [address] [place] [address] , [place], [address]. tel:[phone] Z [facility], [address], [place], [address], [place] tel:[phone] [facility] No Information 2 Adam Montgomery. [facility], [address], [place], [address], [place]. tel:[phone] Referring Provider: Ulises Medina, [facility] [address], [place], [address]. tel:[phone] Z [facility], [address], [place], [address], [place] tel:[phone] [facility] No Information 2 Adam Montgomery. [facility], [address], [place], [address], [place]. tel:[phone] Office/Outpa tient Visit,[facility], Mod Z [facility], [address], [place], [address], [place] tel:[phone] [facility] No Information 2 Adam Montgomery. [facility], [address], [place], [address], [place]. tel:[phone] Referring Provider: Ulises Medina, [facility] [address], [place], [address]. tel:[phone] Office/outpa tient visit,new, mod Z [facility], [address], [place], [address], [place] tel:[phone] [facility] - [facility] No Information 1 Adam Montgomery. [facility], [address] [facility] [place], [address], [place]. tel:[phone] Referring Provider: Ulises Medina, [facility] [address], [place], [address]. tel:[phone] Family History Family Member Type Diagnosis Age At Onset Father Problem (finding) coronary arterioscleros is Father Problem (finding) raised blood lipids Mother Problem (finding) raised blood lipids Payers Payer name Insurance type Covered constitution party ID Mohamud arambula(s) [employer] [id number] Social History Type Description Quantity Date Captured [...]
--- OUTSIDE RECORDS SUMMARY | 2024-02-20 13:44 | XMS_ITS | Clinical Summary ---
Author Organization [facility] Address [place], [place] [address] Care Team Providers Care Medicaid Service Coordinator Name Role Phone Medardo Graf MD Primary Care Provider [phone] Allergies Active Allergy Reactions Criticality Noted Date [...] 10/14/2022 10:58 AM CDT Plan of Treatment Upcoming Encounters Date Type Department Care Team (Late st Contact Info) Description 02/20/2024 2:00 PM BRUSH OPERATOR Ancillary Procedure [facility] [place] [facility] [place] [address] Health Maintenance Due Date Last Done Comments [...] this topic Medical Devices Implanted Type Area Industrial Waste Treatment Technician Device Identifier Shelf Expiration Date Model / Serial / Lot Disc Sc [id number] Cerv [id number] - [id number] Implanted:Qty: 1 on 06/17/2011 at [facility] KENNETH STEVENS [id number] / / [id number] M15-304 Natrelle Silicone-Filled Breast Implant Smooth Round Midrange Profile - [id number] Implanted:Qty: 1 on 02/28/2014 by Kar Nava MD at [facility] Right: Breast 05/14/2018 15-304 NATRELLE SILICONE-FI LLED BREAST IMPLANT SMOOTH ROUND MIDRANGE PROFILE / [id number] / [id number] M15-265 Natrelle Silicone Breast Implant Smooth Round Midrange Profile - [id number] Implanted:Qty: 1 on 02/28/2014 by Kar Nava MD at [facility] Left: Breast 09/11/2018 15-265 NATRELLE SILICONE BREAST IMPLANT SMOOTH ROUND MIDRANGE PROFILE / [id number] / [id number] Disc Cerv 6x14mm Prestige Lp Titnm Ceramic - [id number] Implanted:Qty: 1 on 10/07/2022 by Ulises Medina MD at [facility] N/A: Cervical Vertebrae [employer] [facility] 03/17/2030 [id number] / / [id number] Procedures Procedure Name Priority Date/Time Associated Diagnosis Comments HPV HIGH RISK Routine 10/24/2022 8:30 AM CDT from Last 3 Months or Most Recently Relevant to Health Maintenance Results * HPV HIGH RISK (10/24/2022 8:30 AM CDT) TYPE 16 Negative Negative 10/29/2022 11:44 AM CDT [facility] TYPE 18 Negative Negative 10/29/2022 11:44 AM CDT [facility] OTHER HIGH RISK TYPES Negative Negative 10/29/2022 11:44 AM CDT [facility] Other (Cervical) 10/24/2022 8:30 AM CDT 10/24/2022 6:23 PM CDT Narrative [facility] - 10/29/2022 11:44 AM CDT HPV types 16, 18, 31, 33, 35, 39, 45, 51, 52, 56, 58, 59, 66 and 68 DNA were undetectable or below the pre-set threshold. Methodology: Evan Jack 4800 HPV Test Caitlyn Dorado PA-C MICROBIOLOGY [facility] [address] [place] [address], from Last 3 Months or Most Recently [...] 5:51 AM 06/18/2011 8:24 PM Care Teams Medicaid Service Coordinator Relationship Specialty Start Date End Date Medardo Graf MD [address] [place] [address] PCP - General Family Practice 09/24/22
--- OUTSIDE RECORDS SUMMARY | 2024-02-20 13:44 | XMS_ITS | Referral Summary ---
Author Organization [facility] Address [address] [place] [address]. [place] [address] Care Team Providers Care Medical Research Associate Name Role Phone Medardo Graf MD Primary Care Provider Umu Duke MD Unavailable [phone] Angel Schneider MD Unavailable Encounters Date Type Department Care Team Description 02/06/2024 Transcribe Orders [facility] [address] [place] [phone] Provider, Generic External Data Lung nodule (Primary Dx) 01/29/2024 Telephone [facility] [address] [address] Noelle Khan MD Appointment 01/28/2024 MyC Medical Advice Initial Department Diana Castro from Last 3 Months Allergies Active Allergy [...] (06/15/2020): Added automatically from request for surgery [id number] Vaginal delivery 04/28/2012 Labor and delivery, indication [...] on file Legal Sex Female 4:41 AM EQUIPMENT ENGINEERING TECHNICIAN Gender Identity Not on file Sexual Orientation Not on file Last Filed Vital Signs Vital Sign Reading Time Taken Comments Blood Pressure 102/76 11/10/2023 10:17 AM CDT Pulse 80 11/10/2023 10:17 AM CDT Temperature 36.9 ??C (98.5 ??F) 11/10/2023 10:17 AM C DT Respiratory Rate 18 05/26/2023 7:30 AM EQUIPMENT ENGINEERING TECHNICIAN Oxygen Saturation 100% 11/10/2023 10:17 AM CDT Inhaled Oxygen Concentration - - Weight 79.4 kg (175 lb) 11/10/2023 10:17 AM CDT Height 167.6 cm (5' 6) 05/26/2023 5:15 AM EQUIPMENT ENGINEERING TECHNICIAN Body Mass Index 28.25 05/26/2023 5:15 AM EQUIPMENT ENGINEERING TECHNICIAN Plan of Treatment Upcoming Encounters Date Type Department Care Team (Latest Contact Info) Description 04/21/2024 PRE VISIT [facility] [address] [phone] Angel Schneider MD [address] [place] [phone] *-*INCOMING RECORDS*-* (Lung nodule [R91.1]///) 04/21/2024 8:40 AM EQUIPMENT ENGINEERING TECHNICIAN Ancillary Procedure [facility] [address] 1st [place] [phone] Angel Schneider MD [address] [place] [phone] 04/21/2024 9:40 AM EQUIPMENT ENGINEERING TECHNICIAN Oncology Visit [facility] [address] [phone] Angel Schneider MD [address] [place] [address]80205 Procedures Procedure Name Priority Date/Time Associated Diagnosis Comments BASIC METABOLIC PANEL STAT 05/26/2023 5:46 AM EQUIPMENT ENGINEERING TECHNICIAN LIPID PROFILE Routine 03/19/2018 HIV 1 AND 2 ANTIBODY (QUEST) Routine 09/23/2011 from Last 3 Months or Most Recently Relevant to Health Maintenance Results * Basic metabolic panel (05/26/2023 5:[address] [facility]) Pathologist [facility] Sodium 139 135 - 145 mmol/L 05/26/2023 6:[address] [facility] Comment:Reference intervals for this test were updated on 01/07/2023 to more accurately reflect our healthy population. There may be differences in the flagging of prior results with similar values performed with this method. Interpretation of those prior results can be made in the context of the updated reference intervals. Potassium 4.1 3.4 - 5.3 mmol/L 05/26/2023 6:[address] [facility] Chloride 101 98 - 107 mmol/L 05/26/2023 6:[address] [facility] Carbon Dioxide (CO2) 27 22 - 29 mmol/L 05/26/2023 6:[address] [facility] Anion Gap 11 7 - 15 mmol/L 05/26/2023 6:[address] [facility] Urea Nitrogen 9.0 6.0 - 20.0 mg/dL 05/26/2023 6:[address] [facility] Creatinine 0.82 0.51 - 0.95 mg/dL 05/26/2023 6:[address] [facility] GFR Estimate 89 >60 mL/min/1. 73m2 05/26/2023 6:[address] [facility] Calcium 9.5 8.6 - 10.0 mg/dL 05/26/2023 6:[address] [facility] Glucose 96 70 - 99 mg/dL 05/26/2023 6:[address] [facility] Blood BLOOD SPECIMEN / Unknown Venipuncture / Unknown 05/26/2023 5:46 AM EQUIPMENT ENGINEERING TECHNICIAN 05/26/2023 5:[address] [facility] us Allen Ayon MD LAB - BLOOD ORDERABLES F inal Result LABORATORY [facility] [address] [facility] Lab (1st floor, no room number) [place] [address], [facility] [phone] * (ABNORMAL) Lipid Profile (03/19/2018) Pathologist [facility] Cholesterol 239(A) 90 - 200 mg/dL [facility] Triglycerides 114 40 - 197 mg/dL [facility] HDL Cholesterol 83 >=50 mg/dL [facility] LDL Cholesterol Calculated 133(A) <100 mg/dL [facility] Blood specimen (specimen) 03/19/[address] [facility] - 03/19/[address] [facility] us Provider Outside LAB - BLOOD ORDERABLES Final Re sult Performing Organization Address City/State/[facility] Co de Phone Number [facility] [address] [phone] * HIV 1 and 2 Antibody (09/23/2011) HIV-1 & HIV-2 Antibody HIV 1&2 Antibody non reactive Blood specimen (specimen) us Patient Reported LAB - BLOOD ORDERABLES Final Re sult from Last 3 Months or Most Recently Relevant to Health Maintenance Insurance [facility] [employer] [facility] [employer] [facility] [employer] Care Teams Medical Research Associate Relationship Specialty Start Date End Date Medardo Graf MD [facility] [address] [place] [address] PCP - General Family Practice 11/15/18 Umu Duke MD [address] [address] firmware software verification engineer 03/16/20 Angel Schneider MD [address] [place] [address] Critical Care 02/09/24
--- OUTSIDE RECORDS SUMMARY | 2024-02-20 13:44 | XMS_ITS | Encounter Summary ---
Author Organization [place] Address [address] [facility] [place] [address] Care Team Providers Care Grip Name Role Phone Medardo Graf MD Primary Care Provider [phone] Noelle Khan MD Unavailable [phone] Umu Duke MD Unavailable [phone] Umu Duke MD Unavailable [phone] Angel Schneider MD Unavailable [phone] Encounter Details Date Type Department Care Team (Late st Contact Info) Description 07/14/2020 MyC Medical Advice [facility] [address] 3rd Floor,[address] [facility] [address] [place] [address] Umu Duke MD [address] [place], [place] [address] Social History Tobacco Use Types Packs/Day Years [...] on file Legal Sex Female 4:41 AM ART SPECIALIST Gender Identity Not on file Sexual Orientation [...] (Latest Contact Info) Description 04/21/2024 PRE VISIT [facility] [address] [place] [phone] Angel Schneider MD [address] [place] [phone] *-*INCOMING RECORDS*-* (Lung nodule [R91.1]///) 04/21/2024 8:40 AM ART SPECIALIST Ancillary Procedure [facility] Imaging [facility] Clinic [address] 1st [place] [phone] Angel Schneider MD [address] [place] [phone] 04/21/2024 9:40 AM ART SPECIALIST Oncology Visit [facility] [address] [place] [phone] Angel Schneider MD [address] [place] [address] [phone] documented as of this encounter Visit Diagnoses Not on filedocumented in this encounter Additional Health Concerns Infection Onset Date Last Indicated Resolved Time Influenza 04/04/2021 04/04/2021 04/11/2021 11:4 1 PM ART SPECIALIST Assessment Noted Time PHQ-9 Depression Total Score: 2 06/01/19 21 1:03 PM ART SPECIALIST documented as of this encounter Care Teams Grip Relationship Specialty Start Date End Date Medardo Graf MD [facility] [address] [place] [address] PCP - General Family Practice 11/15/18 Noelle Khan MD [facility] [address] [place] [address] Assigned Pulmonology Provider 02/04/20 11/09/21 Umu Duke MD [address] [facility] [address] [place] [address] dock loader 03/16/20 Umu Duke MD [address] [facility] [address] [place] [address] Assigned OBGYN Provider 06/04/2002/01 Angel Schneider MD [address] [place], [place] [address] Critical Care 02/09/24 documented as of this encounter
--- OUTSIDE RECORDS SUMMARY | 2024-02-20 13:44 | XMS_ITS | Encounter Summary ---
Author Organization [place] Address [address] [place] [address]. [place] [address] Care Team Providers Care Bulwark Carpenter Name Role Phone Medardo Graf MD Primary Care Provider Umu Duke MD Unavailable [phone] Reason for Referral * Consultation (Routine) - Pending Review Specialty Diagnoses / Procedures Referred By Hiram viveros Referred To Contact Medical Oncology Diagnoses Lung nodule Self, Referred, fax: Referral ID Status Reason Start Date Expiration Date V isits Requested Visits Authorized [id number] Pending Review 02/06/2024 02/05/2025 1 1 Question Answer My Clinical Question Is: DX: Lung Nodule Reason for Referral: Interventional Pulmonary (Lung nodule) Scheduling Instructions: [employer] will call you to coordinate your care as prescribed by the provider. If you don? t hear from a petroleum products sales representative within 2 business days, please call [...] down, pt has difficulty breathing. Records within [employer] [facility] Please be aware that coverage of these services is subject to the terms and limitations of your health insurance plan. Call member services at your health plan with any benefit or coverage questions. [facility] will call you to coordinate your care as prescribed by the provider. If you don? t hear from a petroleum products sales representative within 2 business days, please call Encounter Details Date Type Department Care Team (Late st Contact Info) Description 02/06/2024 Transcribe Orders [facility] [address] [address] Provider, Generic External Data Lung nodule [...] on file Legal Sex Female 4:41 AM TIER LIFT OPERATOR Gender Identity Not on file Sexual Orientation Not on file documented as of this encounter Plan of Treatment Upcoming Encounters Date Type Department Care Team (Latest Contact Info) Description 04/21/2024 PRE VISIT [facility] [address] [phone] Angel Schneider MD [address] [place] [address] *-*INCOMING RECORDS*-* (Lung nodule [R91.1]///) 04/21/2024 8:40 AM TIER LIFT OPERATOR Ancillary Procedure [facility] Imaging Center CT Clinic [address] 1st [place] [phone] Angel Schneider MD [address] [place] [address] 04/21/2024 9:40 AM TIER LIFT OPERATOR Oncology Visit [facility] [address] [phone] Angel Schneider MD [address] [place] [address] Scheduled Referrals Name Type Priority Associated Diagnoses Orde r Schedule Adult Hematology & Oncology Archivist [employer] Referral Referral Routine: Next available opening Lung nodule Ordered: 02/06/2024 documented as of this encounter Visit Diagnoses Diagnosis Lung nodule- Primary Solitary pulmonary nodule documented in this encounter Additional Health Concerns Assessment Noted Time PHQ-9 Depression Total Score: 2 06/01/19 21 1:03 PM TIER LIFT OPERATOR documented as of this encounter Care Teams Bulwark Carpenter Relationship Specialty Start Date End Date Medardo Graf MD [facility] [address], [place] [address] PCP - General Family Practice 11/15/18 Umu Duke MD [address] [place] [address] election supervisor 03/16/20 documented as of this encounter
--- OUTSIDE RECORDS SUMMARY | 2024-02-20 13:44 | XMS_ITS | Encounter Summary ---
Author Organization [facility] Address [address] [place] [address] Care Team Providers Care Payloader Operator Name Role Phone Ghanshyam Hassan Primary Care Provider Unavailable Gricel Carmona Thomas Primary Care Provider Unavailable Allen Amaya MD Primary Care Provider Gricel Carmona Thomas Primary Care Provider Unavailable Medardo Graf MD Primary Care Provider [phone] Noelle Khan MD Unavailable [phone] Umu Duke MD Unavailable [phone] Umu Duke MD Unavailable [phone] Angel Schneider MD Unavailable [phone] Reason for Visit * Reason Onset Date Comments Nurse Advice Line 04/23/2011 Encounter Details Date Type Department Care Team (Late st Contact Info) Description 04/23/2011 Telephone [facility] [place] [address] [place] [address] Allen Amaya MD [address] [place], [place] [address] Nurse Advice Line Social History Tobacco Use Types Packs/Day Years Used Date Smoking Tobacco: Never Alcohol Use Standard Drinks/Week Comments Yes 0 (1 standard drink = 0.6 oz pur e alcohol) occas Comments No Sex and Gender Information Value Date Recorded Sex Assigned at Not on file Legal Sex Female 4:41 AM SUPERVISOR INSTRUMENT REPAIR Gender Identity Not on file Sexual Orientation Not on file documented as of this encounter Miscellaneous Notes * Telephone Encounter - Becky Yepez - 08/21/2011 6:41 AM CDT [facility] Triage Call Report Patient Name: Lacey Nolasco Call Date & Time: 04/23/2011 9:08:38PM Patient PCP Name: Patient Address: [address] [place] [address] [id number] Patient Date of : 1980 Age: 31 yr. Patient Gender: Female Sensitometrist Name: Kerrie Ponce Presenting Problem: I'm wondering [...] 04/21/2024 PRE VISIT [facility] [address] [phone] Angel Schneider MD [address] [place] [address] [phone] *-*INCOMING RECORDS*-* (Lung nodule [R91.1]///) 04/21/2024 8:40 AM SUPERVISOR INSTRUMENT REPAIR Ancillary Procedure [facility] [address] 1st [place] [phone] Angel Schneider MD [address] [place] [address] 04/21/2024 9:40 AM SUPERVISOR INSTRUMENT REPAIR Oncology Visit [facility] [address] [phone] Angel Schneider MD [address] [place] [address] [phone] documented as of this encounter Visit Diagnoses Not on filedocumented in this encounter Additional Health Concerns Infection Onset Date Last Indicated Resolved Time Influenza 04/04/2021 04/04/2021 04/11/2021 11:4 1 PM SUPERVISOR INSTRUMENT REPAIR documented as of this encounter Care Teams Payloader Operator Relationship Specialty Start Date End Date Ghanshyam Hassan PCP - General 04/19/11 02/21/12 Calvin [place] PCP - General 02/22/12 02/22/12 Allen Amaya MD PCP - General layout designer 02/23/12 04/07/12 Ghanshyam Hassan PCP - General 04/08/12 11/14/18 Medardo Graf MD [facility] [address] [place] [address] PCP - General Family Practice 11/15/18 Noelle Khan MD [facility] [address] [place] [address] Assigned Pulmonology Provider 02/04/20 11/09/21 Umu Duke MD [address] [place] [address] [place] [address] [phone] layout designer 03/16/20 Umu Duke MD [address] [place] [address] [place] [address] [phone] Assigned OBGYN Provider 06/04/2002/01 Angel Schneider MD [address] [place] [address] Critical Care 02/09/24 documented as of this encounter
--- OUTSIDE RECORDS SUMMARY | 2024-02-20 13:44 | XMS_ITS | Encounter Summary ---
Author Organization [facility] Address [address] [place] [address]. [place] [address] Care Team Providers Care Vp Of Customer Experience Strategy Name Role Phone Medardo Graf MD Primary Care Provider [phone] Umu Duke MD Unavailable [phone] Angel Schneider MD Unavailable Reason for Visit * Reason Onset Date Comments Appointment 01/29/2024 Encounter Details Date Type Department Care Team (Late st Contact Info) Description 01/29/2024 Telephone [facility] [address] [address] Noelle Khan MD [address] [phone] Appointment Social History Tobacco Use Types Packs/Day [...] on file Legal Sex Female 4:41 AM 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 Action Taken: Message routed to: [facility] [place] Travel Screening: Not Applicable Date of Service: 01/28 documented in this encounter Plan of Treatment Upcoming Encounters Date Type Department Care Team (Latest Contact Info) Description 04/21/2024 PRE VISIT [facility] [address] [address] Angel Schneider MD [address] [place] [address] [phone] *-*INCOMING RECORDS*-* (Lung nodule [R91.1]///) 04/21/2024 8:40 AM PUBLICATION DESIGNER Ancillary Procedure [facility] CT Clinic [address] 1st [place] [phone] Angel Schneider MD [address] [place] [address] [phone] 04/21/2024 9:40 AM PUBLICATION DESIGNER Oncology Visit [facility] [address] [address] Angel Schneider MD [address] [place] [address] documented as of this encounter Visit Diagnoses Not on filedocumented in this encounter Additional Health Concerns Assessment Noted Time PHQ-9 Depression Total Score: 2 06/01/19 21 1:03 PM PUBLICATION DESIGNER documented as of this encounter Care Teams Vp Of Customer Experience Strategy Relationship Specialty Start Date End Date Medardo Graf MD [facility] [address] [place] [address] PCP - General Family Practice 11/15/18 Umu Duke MD [address] [address] correspondence clerk 03/16/20 Angel Schneider MD [address] [place] [address] Critical Care 02/09/24 documented as of this encounter
--- OUTSIDE RECORDS SUMMARY | 2024-02-20 13:44 | XMS_ITS | Clinical Summary ---
Author Organization [facility] Address [address] [place] [address] Care Team Providers Care Clean In Places Operator Name Role Phone Medardo Graf MD Primary Care Provider [phone] Umu Duke MD Unavailable [phone] Angel Schneider MD Unavailable [phone] Allergies Active Allergy Reactions Criticality Noted Date [...] (06/15/2020): Added automatically from request for surgery [id number] Vaginal delivery 04/28/2012 Labor and delivery, indication for care 04/25/19 13 Uterine contractions or other obstetric complain ts 04/08/2012 Head ache 11/04/2011 Encounters Date Type Department Care Team Description 02/06/2024 Transcribe Orders [facility] [address] [place] [phone] Provider, Generic External Data Lung nodule (Primary Dx) 01/29/2024 Telephone [facility] [address] [address] Noelle Khan MD Appointment 01/28/2024 MyC Medical Advice Initial Department [facility] from Last 3 Months Immunizations Name Administration [...] on file Legal Sex Female 4:41 AM STAFF RADIOGRAPHER Gender Identity Not on file Sexual Orientation Not on file Last Filed Vital Signs Vital Sign Reading Time Taken Comments Blood Pressure 102/76 11/10/2023 10:17 AM CDT Pulse 80 11/10/2023 10:17 AM CDT Temperature 36.9 ??C (98.5 ??F) 11/10/2023 10:17 AM C DT Respiratory Rate 18 05/26/2023 7:30 AM STAFF RADIOGRAPHER Oxygen Saturation 100% 11/10/2023 10:17 AM CDT Inhaled Oxygen Concentration - - Weight 79.4 kg (175 lb) 11/10/2023 10:17 AM CDT Height 167.6 cm (5' 6) 05/26/2023 5:15 AM STAFF RADIOGRAPHER Body Mass Index 28.25 05/26/2023 5:15 AM STAFF RADIOGRAPHER Plan of Treatment Upcoming Encounters Date Type Department Care Team (Latest Contact Info) Description 04/21/2024 PRE VISIT [facility] [address] [address] Angel Schneider MD [address] [place] [address] *-*INCOMING RECORDS*-* (Lung nodule [R91.1]///) 04/21/2024 8:40 AM STAFF RADIOGRAPHER Ancillary Procedure [facility] CT Clinic [address] 1st [place] [address] Angel Schneider MD [address] [place] [address] [phone] 04/21/2024 9:40 AM STAFF RADIOGRAPHER Oncology Visit [facility] [address] [address] Angel Schneider MD [address] [place] [address] Health Maintenance Due Date Last Done Comments [...] BASIC METABOLIC PANEL STAT 05/26/2023 5:46 AM STAFF RADIOGRAPHER LIPID PROFILE Routine 03/19/2018 HIV 1 AND 2 ANTIBODY (QUEST) Routine 09/23/2011 from Last 3 Months or Most Recently Relevant to Health Maintenance Results * Basic metabolic panel (05/26/2023 5:46 AM STAFF RADIOGRAPHER) Sodium 139 135 - 145 mmol/L 05/26/2023 6:18 AM [facility] Comment:Reference intervals for this test were updated on 01/07/2023 to more accurately reflect our healthy population. There may be differences in the flagging of prior results with similar values performed with this method. Interpretation of those prior results can be made in the context of the updated reference intervals. Potassium 4.1 3.4 - 5.3 mmol/L 05/26/2023 6:18 AM [facility] Chloride 101 98 - 107 mmol/L 05/26/2023 6:18 AM [facility] Carbon Dioxide (CO2) 27 22 - 29 mmol/L 05/26/2023 6:18 AM [facility] Anion Gap 11 7 - 15 mmol/L 05/26/2023 6:18 AM [facility] Urea Nitrogen 9.0 6.0 - 20.0 mg/dL 05/26/2023 6:18 AM [facility] Creatinine 0.82 0.51 - 0.95 mg/dL 05/26/2023 6:18 AM [facility] GFR Estimate 89 >60 mL/min/1. 73m2 05/26/2023 6:18 AM [facility] Calcium 9.5 8.6 - 10.0 mg/dL 05/26/2023 6:18 AM [facility] Glucose 96 70 - 99 mg/dL 05/26/2023 6:18 AM [facility] Blood BLOOD SPECIMEN / Unknown Venipuncture / Unknown 05/26/2023 5:46 AM STAFF RADIOGRAPHER 05/26/2023 5:55 AM STAFF RADIOGRAPHER us Allen Ayon MD LAB - BLOOD ORDERABLES F inal Result LABORATORY [facility] [address] [facility] Lab (1st floor, no room number) [place] [address] [phone] * (ABNORMAL) Lipid Profile (03/19/2018) Cholesterol 239(A) 90 - 200 mg/dL [facility] Triglycerides 114 40 - 197 mg/dL [facility] HDL Cholesterol 83 >=50 mg/dL [facility] LDL Cholesterol Calculated 133(A) <100 mg/dL [facility] Blood specimen (specimen) 03/19/2018 Narrative [facility] - 03/19/2018 LAB RESULT [facility] us Provider Outside LAB - BLOOD ORDERABLES Final Re sult [facility] [address] [place] [address], [facility] [phone] * HIV 1 and 2 Antibody (09/23/2011) HIV-1 & HIV-2 Antibody HIV 1&2 Antibody non reactive Blood specimen (specimen) us Patient Reported LAB - BLOOD ORDERABLES Final Re sult from Last 3 Months or Most Recently Relevant to Health Maintenance Insurance [facility] [employer] [facility] [employer] [facility] [employer] Care Teams Clean In Places Operator Relationship Specialty Start Date End Date Medardo Graf MD [facility] [address] [place] [address] PCP - General Family Practice 11/15/18 Umu Duke MD [address] [address] operating room technician 03/16/20 Angel Schneider MD [address] [place] [address] Critical Care 02/09/24
--- OUTSIDE RECORDS SUMMARY | 2024-02-20 13:44 | XMS_ITS | Clinical Summary ---
Author Organization [facility] Address [address] [address] Care Team Providers Care Hand Twister Name Role Phone Needs Pcp, Assignment Primary Care Provider [phone] Source Comments You are receiving this document as you are listed as the primary care provider,follow-up provider, or the patient has been referred to you for consultation.This is in compliance with the Medicare and[facility] EHR Incentive Program,which states Providers who transition their patient to another setting of careor provider of care or refers their patient to another provider of care shouldprovide summary care record for each transition of care or referral. Tred Allergies Active Allergy Reactions Criticality Noted Date [...] (07/09/2022): Added automatically from request for surgery [id number] H/O breast biopsy 02/29/2020 Hypothyroid 02/29/2020 History [...] Free (3+yrs) 01/26/2011 Influenza IIV4 (Quadrivalent) 0.5mL (02107) 07/2012 Td 04/12/2004 Family History Medical History [...] DT Respiratory Rate 16 04/28/2020 3:39 PM REFINING STILL OPERATOR Oxygen Saturation 100% 04/28/2020 3:39 PM REFINING STILL OPERATOR Inhaled Oxygen Concentration - - Weight 83.9 [...] SOLITARIO W CAD Routine 06/06/2023 1:38 PM REFINING STILL OPERATOR PAP TEST Routine 02/29/2020 4:22 PM REFINING STILL OPERATOR Encounter for gynecological examination without abnormal finding Screening for malignant neoplasm of cervix CHOLESTEROL, TOTAL AND HDL Routine 02/29/2020 4:12 PM REFINING STILL OPERATOR Lipid screening COLONOSCOPY Routine 09/07/2013 8:01 AM CDT Nonspecific (abnormal) findings on radiological and other examination of gastrointestinal tract HIV ANTIBODY Routine 09/23/2011 8:32 AM CDT Special screening examination for other specified viral diseases Screening examination for venereal disease HEPATITIS C ANTIBODY, WITH REFLEX Routine 05/24/2009 5:10 PM REFINING STILL OPERATOR from Last 3 Months or Most Recently Relevant to Health Maintenance Results * MM Mammogram Screening Bilat W Implants W 3D Solitario W CAD (06/06/2023 1:38 PM REFINING STILL OPERATOR) Anatomical Region Laterality Modality Breast Bilateral Mammography Impressions 06/06/2023 1:49 PM REFINING STILL OPERATOR : ACR BI-RADS Category 2: Benign RECOMMENDATION: Follow Up Imaging in 12 months - Bilateral The results and recommendations of this examination will be communicated to the patient. Narrative 06/06/2023 1:49 PM REFINING STILL OPERATOR MM MAMMOGRAM SCREENING BILAT W IMPLANTS W [...] evidence of malignancy. ?? Jessica Salgado APRN, ROLLER COASTER OPERATOR RAD CHEL * PAP Test (02/29/2020 4:22 PM REFINING STILL OPERATOR) Case Report Pap ? Case: [id number] ? Authorizing Provider: ??Lillian Holbrook, BOTTOM FILLER, CNM ??Collected: ? 02/29/2020 1622 ? Ordering Location: ? [facility] ? Received: ?02/29/2020 1649 ? Services-MICROCOMPUTER TECHNICIAN ? First Screen: ?Mojgan Cool CT (ASCP) ? Specimen: ?Pap Test, Routine, Cervix/Endocervix ? 03/14/2020 9:37 AM REFINING STILL OPERATOR [facility] Pap Specimen Adequacy Satisfactory for evaluation, endocervical/gottlieb sformation zone component present. 03/14/2020 9:37 AM REFINING STILL OPERATOR [facility] Pap Interpretation Negative for intraepithelial lesion or malignancy (NILM). 03/14/2020 9:37 AM REFINING STILL OPERATOR [facility] Pap Disclaimer The Pap test is a screening test designed to aid in the detection of cervical cancer and its precursor lesions. It is not a diagnostic procedure and should not be used as the sole means of detecting cervical cancer. Both false-positive and false-negative results may occur. 03/14/2020 9:37 AM REFINING STILL OPERATOR [facility] Gross Description The specimen is received in SurePath fixative and properly labeled. 1 Pap-stained SurePath slide is prepared. 03/14/2020 9:37 AM REFINING STILL OPERATOR [facility] Embedded Images 0 9:37 AM REFINING STILL OPERATOR [facility] Other Specimen Type ENTIRE ENDOCERVIX / Unknown 02/29/2020 4:22 PM REFINING STILL OPERATOR 02/29/2020 4:49 PM REFINING STILL OPERATOR Comment:LMP: Patient's last menstrual period was 02/08/2020. Lillian Holbrook APRN, CNM LAB PATHOLOGY Performing Organization Address [facility] de Phone Number [facility] [address] * (ABNORMAL) Cholesterol, Total & HDL [CHS] (02/29/2020 4:12 PM REFINING STILL OPERATOR) Cholesterol 206(H) 0 - 199 mg/dL 03/01/2020 12:53 PM [facility] HDL Cholesterol 64 >=40 mg/dL 0 12:53 PM [facility] Non HDL Chol, Calculated 142 mg/dL 03/01/2020 12:53 PM [facility] Blood Venipuncture / Unknown 02/29/2020 4:12 PM REFINING STILL OPERATOR 02/29/2020 4:12 PM REFINING STILL OPERATOR Lillian Holbrook APRN, CNM LAB_1 Performing Organization Address [facility] de Phone Number [facility] [address] [place] [address] [phone] * COLONOSCOPY [[id number]] (09/07/2013 8:01 AM CDT) 09/07/2013 8:01 AM CDT Narrative [facility] ([facility]) - 09/07/2013 8:29 AM CDT Indications: ? Abdominal pain, Hematochezia, Melena, bloating Providers: ? Chapo Sood MD, Chela Lopez RN Referring MD: ? Medicines: ? Exactacaine [place] 2 doses, Fentanyl IV 100 mcgs, ? [...] Procedure Code(s): ?? --- Professional --- ? 51028, Esophagogastroduodenoscopy, flexible, ? transoral; with biopsy, single or multiple Diagnosis Code(s): ?? --- Professional --- ? 789.00, Abdominal pain, unspecified site ? 578.1, Blood in stool CPT copyright 2013 [employer]. All rights reserved. The codes documented in this report are preliminary and upon shoveler review may be revised to meet current compliance requirements. Attending Participation: Chapo Sood MD 09/07/2013 8:29 AM This report has been signed electronically. Number of Addenda: 0 Note Initiated On: 09/07/2013 8:01 AM Procedure Note Chapo Sood MD - 09/07/2013 Indications: Abdominal pain, Hematochezia, Melena, bloating Providers: Chapo Sood MD, Chela Lopez, LEELA Referring MD: Medicines: Exactacaine [place] 2 doses, Fentanyl IV 100 mcgs, Versed/Midazolam [...] care physician. Procedure Code(s): --- Professional --- 56943, Esophagogastroduodenoscopy, flexible, transoral; with biopsy, single or multiple Diagnosis Code(s): --- Professional --- 789.00, Abdominal pain, unspecified site 578.1, Blood in stool CPT copyright 2013 [employer]. All rights reserved. The codes documented in this report are preliminary and upon shoveler review may be revised to meet current compliance requirements. Attending Participation: Chapo Sood MD 09/07/2013 8:29 AM This report has been signed electronically. Number of Addenda: 0 Note Initiated On: 09/07/2013 8:01 AM Chapo Sood MD [facility] [place], [place] * HIV ANTIBODY (09/23/2011 8:32 AM CDT) HIV 1/HIV 2 Non-React Non-Reacti ve HP CONVERSION 09/23/2011 8:32 AM CDT 09/23/2011 11:48 AM CDT Sonja Dalton APRN, ROLLER COASTER OPERATOR LAB_1 HP CONVERSION * Hepatitis C Antibody, with Reflex (05/24/2009 5:10 PM REFINING STILL OPERATOR) Hepatitis C Antibody Non Reac Non Reac HP CONVERSION 05/24/2009 5:10 PM REFINING STILL OPERATOR Amanda Stockton APRN, ROLLER COASTER OPERATOR LAB_1 HP CONVERSION from Last 3 Months or Most Recently Relevant to Health Maintenance Care Teams Hand Twister Relationship Specialty Start Date End Date Needs Pcp, [place] [address] PCP - General 08/12/14
--- OUTSIDE RECORDS SUMMARY | 2024-02-20 13:44 | XMS_ITS | Encounter Summary ---
Author Organization [facility] Address [address] [place] [address] Care Team Providers Care Candy Separator Enrobing Name Role Phone Needs Pcp, Assignment Primary Care Provider [phone] Encounter Details Date Type Department Care Team [...] documented as of this encounter Care Teams Candy Separator Enrobing Relationship Specialty Start Date End Date Needs Pcp, [place] [address] PCP - General 08/12/14 documented as of this encounter
--- OUTSIDE RECORDS SUMMARY | 2024-02-20 13:44 | XMS_ITS | Encounter Summary ---
Author Organization [facility] Address [address] [place] [address]. 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 [address] [phone] Angel Schneider MD [address] [place] [address] *-*INCOMING RECORDS*-* (Lung nodule [R91.1]///) 04/21/2024 8:40 AM ASPHALT PLANT OPERATOR Ancillary Procedure [facility] CT Clinic [address] 1st [place] [phone] Angel Schneider MD [address] [place] [address] [phone] 04/21/2024 9:40 AM ASPHALT PLANT OPERATOR Oncology Visit [facility] [address] [phone] Angel Schneider MD [address] [place] [address] [phone] documented as of this encounter Visit Diagnoses Not on filedocumented in this encounter Additional Health Concerns Assessment Noted Time PHQ-9 Depression Total Score: 2 06/01/19 21 1:03 PM ASPHALT PLANT OPERATOR documented as of this encounter Care Teams Music Video Director Relationship Specialty Start Date End Date Medardo Graf MD [facility] [address] [place] [address] PCP - General Family Practice 11/15/18 Umu Duke MD [address] [place] [address] bearing ring assembler 03/16/20 Angel Schneider MD [address] [place] [address] Critical Care 02/09/24 documented as of this encounter
--- OUTSIDE RECORDS SUMMARY | 2024-02-20 13:44 | XMS_ITS | Encounter Summary ---
Author Organization [facility] Address [address] [place] [address]. [place] [address] Care Team Providers Care Special Client Bus Driver Name Role Phone Medardo Graf MD Primary Care Provider [phone] Noelle Khan MD Unavailable + [phone] Umu Duke MD Unavailable [phone] Umu Duke MD Unavailable [phone] Angel Schneider MD Unavailable [phone] Encounter Details Date Type Department Care [...] on file Legal Sex Female 4:41 AM SYBASE DEVELOPER Gender Identity Not on file Sexual Orientation Not on file COVID-19 Exposure Response Date Recorded In the last month, have you been in contact with someone who was confirmed or suspected to have Coronavirus / COVID-19? No / Unsure 02/28/2021 2:08 PM SYBASE DEVELOPER documented as of this encounter Plan of Treatment Upcoming Encounters Date Type Department Care Team (Latest Contact Info) Description 04/21/2024 PRE VISIT [facility] [address] [phone] Angel Schneider MD [address] [place] [phone] *-*INCOMING RECORDS*-* (Lung nodule [R91.1]///) 04/21/2024 8:40 AM SYBASE DEVELOPER Ancillary Procedure [facility] [address] 1st [place] [phone] Angel Schneider MD [address] [place] [address] [phone] 04/21/2024 9:40 AM SYBASE DEVELOPER Oncology Visit [facility] [address] [phone] Angel Schneider MD [address] [place] [address] [phone] documented as of this encounter Visit Diagnoses Not on filedocumented in this encounter Additional Health Concerns Infection Onset Date Last Indicated Resolved Time Influenza 04/04/2021 04/04/2021 04/11/2021 11:4 1 PM SYBASE DEVELOPER Assessment Noted Time PHQ-9 Depression Total Score: 2 06/01/19 21 1:03 PM SYBASE DEVELOPER documented as of this encounter Care Teams Special Client Bus Driver Relationship Specialty Start Date End Date Medardo Graf MD [facility] [address] [place] [address] PCP - General Family Practice 11/15/18 Noelle Khan MD [facility] [address] [place] [address] Assigned Pulmonology Provider 02/04/20 11/09/21 Umu Duke MD [address] [place], [place] [address] social worker delinquency prevention 03/16/20 Umu Duke MD [address] [place], [place] [phone] Assigned OBGYN Provider 06/04/2002/01 Angel Schneider MD [address] [place], [place] [address] Critical Care 02/09/24 documented as of this encounter
--- OUTSIDE RECORDS SUMMARY | 2024-02-20 13:44 | XMS_ITS | Encounter Summary ---
Author Organization [facility] Address [address] [facility] [place] [address] Care Team Providers Care Stoker Erector And Servicer Name Role Phone Medardo Graf MD Primary Care Provider [phone] Noelle Khan MD Unavailable [phone] Umu Duke MD Unavailable [phone] Umu Duke MD Unavailable [phone] Angel Schneider MD Unavailable [phone] Encounter Details Date Type Department Care Team (Late st Contact Info) Description 07/06/[address] [facility] [address] [place] [facility] [address] [place] [phone] Umu Duke MD [address] [place], [place] [phone] Social History Tobacco Use Types Packs/Day Years [...] on file Legal Sex Female 4:41 AM DATA SME Gender Identity Not on file Sexual Orientation Not on file COVID-19 Exposure Response Date Recorded In the last month, have you been in contact with someone who was confirmed or suspected to have Coronavirus / COVID-19? No / Unsure 06/11/2020 8:16 AM DATA SME documented as of this encounter Plan of Treatment Upcoming Encounters Date Type Department Care Team (Latest Contact Info) Description 04/21/2024 PRE VISIT [facility] [address] [place] [phone] Angel Schneider MD [address] [place] [address] [phone] *-*INCOMING RECORDS*-* (Lung nodule [R91.1]///) 04/21/2024 8:40 AM DATA SME Ancillary Procedure [facility] [address] 1st [place] [phone] Angel Schneider MD [address] [place] [address] [phone] 04/21/2024 9:40 AM DATA SME Oncology Visit [facility] [address] [place] [address] [phone] Angel Schneider MD [address] [place] [phone] documented as of this encounter Visit Diagnoses Not on filedocumented in this encounter Additional Health Concerns Infection Onset Date Last Indicated Resolved Time Influenza 04/04/2021 04/04/2021 04/11/2021 11:4 1 PM DATA SME Assessment Noted Time PHQ-9 Depression Total Score: 2 06/01/19 21 1:03 PM DATA SME documented as of this encounter Care Teams Stoker Erector And Servicer Relationship Specialty Start Date End Date Medardo Graf MD [facility] [address] [place] [address] PCP - General Family Practice 11/15/18 Noelle Khan MD [facility] [address] [place] [address] Assigned Pulmonology Provider 02/04/20 11/09/21 Umu Duke MD [address] [facility] [address] [place] [address] life skills coach 03/16/20 Umu Duke MD [address] [facility] [address] [place] [address] Assigned OBGYN Provider 06/04/2002/01 Angel Schneider MD [address] [place], [place] [phone] Critical Care 02/09/24 documented as of this encounter
== END 2024-02-20 13:42 | disposition home or self-care (01) ==
LOC: RAD 13:42
PROVIDERS: PCP Family Medicine; Visit Provider Family Medicine
DX: R94.31 Abnormal electrocardiogram [ECG] [EKG] (principal)
CPT/HCPCS: 93306

== ENCOUNTER 2024-11-09 10:26 | Outpatient (CLI) | payer BC, SELFPAY | END 2024-11-09 10:27 | disposition home or self-care (01) | LOC: NFLDREF 11-11 15:05 | PROVIDERS: PCP Family Medicine; Referring Provider Family Medicine; Visit Provider Family Medicine | DX: E03.9 Hypothyroidism, unspecified (principal) | CPT/HCPCS: 84439; 84443; 84480 ==

== ENCOUNTER 2024-11-15 15:21 | Outpatient (CLI) | payer BC, SELFPAY ==
--- NOTE | 2024-11-15 15:45 | CRLHL7_ITS ---
For Patients: As a result of the Century Cures Act, medical imaging exams and procedure reports are released immediately into your electronic medical record. You may view this report before your referring provider. If you have questions, please contact your health care provider. INDICATION: Hypothyroidism, thyroid nodule COMPARISON: CT chest 04/02/2019 TECHNIQUE: Hoffmann scale and color Doppler images were acquired of the thyroid gland. FINDINGS: Hypoechoic nodule right thyroid lobe measures 8 x 4 x 7 millimeters, TR 4. Isthmus measures 2.7 millimeters. The right lobe measures 5.2 x 1.5 x 1.5 cm and the left lobe measures 4.7 x 1.2 x 1.5 cm in size. The color Doppler images demonstrate normal vascularity. There is no evidence of cervical lymphadenopathy or parathyroid mass. IMPRESSION: Sub cm nodule right thyroid lobe. No further follow-up indicated. The remainder of the examination is unremarkable. Dictated by Arias Cuello MD @ 11/16/2024 7:14:22 AM (Electronically Signed)
== END 2024-11-15 15:22 | disposition home or self-care (01) ==
LOC: US 15:23
PROVIDERS: PCP Family Medicine; Visit Provider Family Medicine
DX: E04.1 Nontoxic single thyroid nodule (principal)
CPT/HCPCS: 76536

== ENCOUNTER 2024-12-14 11:40 | Outpatient (CLI) | payer BC, SELFPAY | END 2024-12-14 11:41 | disposition home or self-care (01) | LOC: NFLDREF 12-15 10:40 | PROVIDERS: PCP Family Medicine; Referring Provider Family Medicine; Visit Provider Family Medicine | DX: E03.9 Hypothyroidism, unspecified (principal) | CPT/HCPCS: 84439; 84480 ==

== ENCOUNTER 2024-12-28 14:45 | Outpatient (CLI) | payer BC, SELFPAY ==
[2024-12-28] MEDS: PERFLUTREN LIPID MICROSPHERES 2 ML VIAL IVP (15:55)
[2024-12-28 16:01] VITALS: BP 128/72; PULSE 80; RESP 16; O2SAT 98
--- NOTE | 2024-12-28 16:09 | W.PM.STED ---
Stress Test Note Date Date of test: 12/28/24 Providers Primary care provider: Jayden Hale Stress test physician: Flash Dunbar Stress Test Note Stress test ordered: Stress Echo Indication for test: Chest pain Stress test medicine: Definity Results discussion: Patient is a very nice lady who presents for the above test, after discussion the risks benefits and side effects she would like to proceed, cardiac stress test medical history form is reviewed. Pretest EKG shows normal sinus rhythm, with a ventricular rate of 78, blood pressure 111 on 80. Incomplete right bundle bunch block configuration is also noted. Standard Guille protocol is done for a course of 10 minutes 45 seconds, achieved she remove all equivalent of 12.1 with a maximum heart rate of 177. This is 119% of the maximum. She had some mild fatigue, test is terminated because of fulfillment of protocol. No chest pain or any other anginal equivalent symptoms, no significant ST wave changes are notable. There is no dysrhythmias. Conditioning was felt to be excellent Impression: Negative electrographic portion of stress echo, subjectively negative Follow up suggested: Await echo images, these will be read by Cardiology, clinical correlation with these will be needed, patient left this testing facility in excellent condition, back to baseline, there were no complications.
== END 2024-12-28 14:46 | disposition home or self-care (01) ==
LOC: STRESS 14:46
PROVIDERS: PCP Family Medicine; Visit Provider Family Medicine
DX: R07.9 Chest pain, unspecified (principal)
CPT/HCPCS: 93016; 93325; 93351; Q9957

== ENCOUNTER 2025-02-25 08:45 | Outpatient (CLI) | payer BC, SELFPAY | END 2025-02-25 08:46 | disposition home or self-care (01) | LOC: NFLDREF 03-02 18:07 | PROVIDERS: PCP Family Medicine; Referring Provider Family Medicine; Visit Provider Family Medicine | DX: E03.9 Hypothyroidism, unspecified (principal) | CPT/HCPCS: 84439; 84443; 84480 ==